=== PATIENT | female | born 1950 | race Caucasian/White ===

== ENCOUNTER → 2020-08-10 12:26 | Outpatient (BNVA) | payer MEDICARE, SELFPAY | PROVIDERS: Visit Provider Orthopaedic Surgery | DX: M19.012 Primary osteoarthritis, left shoulder (principal) | CPT/HCPCS: 20610; 99212; J1100 ==

== ENCOUNTER 2020-12-09 14:46 | Outpatient (REF) | payer MEDICARE, SELFPAY ==
--- NOTE | ~2020-12-09 | US_ITS ---
EXAMINATION: US VENOUS ULTRASOUND WITH DOPPLER LOWER EXTREMITY, BILATERAL CLINICAL INFORMATION: Bilateral leg edema and swelling COMPARISON: None TECHNIQUE: Ultrasound of the deep veins is performed from the hip to the calf with compression sonography and color and pulse Doppler assessment. Spectral analysis with color-flow imaging is performed. FINDINGS: RIGHT: There is normal venous compression and respiratory variation and augmented flow. The visualized common femoral vein, superficial femoral vein, profunda femoral vein, popliteal vein, and the trifurcation region shows no evidence of deep venous thrombosis. There is no significant popliteal fossa cyst. LEFT: There is normal venous compression and respiratory variation and augmented flow. The visualized common femoral vein, superficial femoral vein, profunda femoral vein, popliteal vein, and the trifurcation region shows no evidence of deep venous thrombosis. There is no significant popliteal fossa cyst. There are small lymph nodes in the left groin with largest lymph node measuring 2.2 x 0.5 x 2.5 cm. If the patient's symptoms persist, followup ultrasound in 5 days 7 days might be of value to exclude proximal propagation from a non-visualized calf vein. US/US venous duplex LE BI IMPRESSION: No DVT demonstrated in the bilateral lower extremity. There are small left groin lymph nodes. The largest one measuring 2.2 x 0.5 x 2.5 cm.
== END 2020-12-09 14:47 | disposition home or self-care (01) ==
LOC: HO.US 14:46
PROVIDERS: PCP Internal Medicine; Visit Provider Internal Medicine
DX: I82.409 Acute embolism and thrombosis of unspecified deep veins of unspecified lower extremity (principal); M79.604 Pain in right leg; M79.605 Pain in left leg
CPT/HCPCS: 93970

== ENCOUNTER 2020-12-13 05:21 | Inpatient (IN) | payer MEDICARE, MEDICAID, SELFPAY ==
[2020-12-13] VITALS (29 sets, daily range): BP systolic 99–138; BP diastolic 50–83; PULSE 61–79; RESP 10–27; TEMP 35.1–35.9; O2SAT 93–99; BMI 23.1
--- NOTE | ~2020-12-13 | US_ITS ---
EXAMINATION: US VENOUS ULTRASOUND WITH DOPPLER LOWER EXTREMITY, BILATERAL CLINICAL INFORMATION: Lower extremity pain COMPARISON: None TECHNIQUE: Ultrasound of the deep veins is performed from the hip to the calf with compression sonography and color and pulse Doppler assessment. Spectral analysis with color-flow imaging is performed. FINDINGS: RIGHT: There is normal venous compression and respiratory variation and augmented flow. The visualized common femoral vein, superficial femoral vein, profunda femoral vein, popliteal vein, and the trifurcation region shows no evidence of deep venous thrombosis. 3.5 x 0.9 x 1.6 cm right Zuleta's cyst cyst. LEFT: There is normal venous compression and respiratory variation and augmented flow. The visualized common femoral vein, superficial femoral vein, profunda femoral vein, popliteal vein, and the trifurcation region shows no evidence of deep venous thrombosis. There is no significant popliteal fossa cyst. If the patient's symptoms persist, followup ultrasound in 5 days 7 days might be of value to exclude proximal propagation from a non-visualized calf vein. US/US venous duplex LE BI IMPRESSION: No DVT demonstrated in the bilateral lower extremities. Right Zuleta's cyst.
--- NOTE | ~2020-12-13 | NM_ITS ---
EXAMINATION: NM LUNG IMAGE PERFUSION CLINICAL INDICATION: Elevated d-dimer and shortness of breath. Bronchitis. History of smoking. COMPARISON: Chest x-ray dated 12/13/2020 PROCEDURE: Following the intravenous administration of 4.0 mCi technetium 99m MAA, images of the chest were again obtained in multiple projections using a gamma scintophoto camera. FINDINGS: There are couple tiny peripheral evident on the posterior and RPO projections. Nonsegmental perfusion defects within the anterior segment of the right upper lobe: No segmental perfusion defects or other perfusion abnormalities are noted. NM/NM pul perfusion IMPRESSION: Very low probability for pulmonary embolism.
--- NOTE | ~2020-12-13 | XR_ITS ---
EXAMINATION: XR CHEST CLINICAL INFORMATION: Right hemodialysis catheter placement COMPARISON: 12/13/2020 TECHNIQUE: Frontal view of the chest was obtained. FINDINGS: Right internal jugular central venous catheter terminates over the mid SVC. Right shoulder arthroplasty. Advanced degenerative changes at the left glenohumeral joint. Cardiac leads overlie the chest. Defibrillator pad overlies the left hemithorax. Lung volumes are low. Bronchial wall thickening present. Mild interstitial prominence. No significant pleural effusion. No pneumothorax. The cardiomediastinal silhouette remains prominent, with a calcified aorta. XR/XR chest 1V IMPRESSION: Right internal jugular central venous catheter terminates over the mid SVC. No pneumothorax. Persistent bronchial wall thickening with interstitial prominence.
--- NOTE | ~2020-12-13 | XR_ITS ---
EXAMINATION: XR CHEST CLINICAL INFORMATION: Cough and shortness of breath. Rule out pneumonia. COMPARISON: 09/30/2019 TECHNIQUE: Frontal view of the chest was obtained. FINDINGS: Right shoulder arthroplasty noted. Cardiac leads overlie the chest. Lung volumes are low. Diffuse bilateral bronchial wall thickening. No pleural effusion or pneumothorax. No dense consolidation. The cardiomediastinal silhouette is unchanged, with a calcified aorta. XR/XR chest 1V IMPRESSION: No consolidation. Bronchial wall thickening can be seen with a small airways process such as asthma or atypical/viral infection.
--- NOTE | 2020-12-13 05:50 | ECG_ITS ---
Test Reason : SOB Blood Pressure : / mmHG Vent. Rate : 066 BPM Atrial Rate : 066 BPM P-R Int : 230 ms QRS Dur : 086 ms QT Int : 438 ms P-R-T Axes : 045 -21 150 degrees QTc Int : 459 ms Sinus rhythm with 1st degree A-V block Low voltage QRS Cannot rule out Anterior infarct (cited on or before 13-APR-2019) Abnormal ECG When compared with ECG of 13-APR-2019 09:20, IA interval has increased Questionable change in initial forces of Anteroseptal leads T wave inversion now evident in Lateral leads Referred By: Shawn Urena Electronically Signed By:SAMMY GARZA MD
--- NOTE | 2020-12-13 05:52 | ED_ITS ---
HPI - General Adult General Chief complaint: Upper Respiratory Symptoms Stated complaint: Sob Time Seen by Provider: 12/13/20 05:36 Source: patient Mode of arrival: ambulatory Limitations: no limitations History of Present Illness HPI narrative: 70-year-old female who presents emergency department for evaluation of shortness of breath, cough, chest pain. The patient states that she has been sick since . She states that she has a cough which has been productive of thick mucus that looks like an ?rubber cement ?. She states that she has had a constant, tightness in the center of her chest which is worse with breathing and coughing, the tightness is moderate in intensity. She has also had bilateral lower extremity pain she states the pain starts in her healing goes to the back of her knee. The pain is a constant, cramping pain which is moderate intensity. The patient was seen by her PCP on (4 days prior to evaluation). The patient was treated for bronchitis with prednisone 60 mg tapering dose and cefuroxime 250 mg twice a day. She states that despite taking these medications she is not feeling any better. The patient states that she does smoke 1 cigarette per day. She has not had a COVID-19 infection. She has not been vaccinated for COVID-19. Related Data Home Medications Medication Instructions Recorded Confirmed amlodipine 10 mg tablet 10 mg PO DAILY 08/10/20 furosemide 40 mg tablet 40 mg PO DAILY 08/10/20 calcitriol 0.5 mcg capsule 0.5 mcg PO DAILY 12/09/20 12/09/20 carvedilol 25 mg tablet 25 mg PO BID 12/09/20 12/09/20 Previous Rx's Medication Instructions Recorded cefuroxime axetil 250 mg tablet 250 mg PO BID 7 Days #14 tab 12/09/20 prednisone 20 mg tablet 20 mg PO DAILY #18 tab 12/09/20 Allergies Allergy/AdvReac Type Severity Reaction Status Date / Time atenolol [ATENOLOL] Allergy Unknown DIFF Verified 12/09/20 11:34 BREATHING, heart races. amphetamine [Adderall] AdvReac Unknown shortness Verified 12/09/20 11:34 of breath dextroamphetamine [Adderall] AdvReac Unknown shortness Verified 12/09/20 11:34 of breath Review of Systems Review of Systems: Yes all other systems are reviewed and are negative PMFSH Past Medical History PMFSH Narrative: The patient states she smokes 1 cigarette per day x5 years. Prior to that she had quit smoking for 30 years. She denies alcohol use, she denies drug use. She states that she lives at home with her and her son Angus who is here in the emergency department with the patient. Medical History Anemia Asthmatic bronchitis CKD (chronic kidney disease), stage IV Depression DVT (deep venous thrombosis) GERD (gastroesophageal reflux disease) History of ectopic Hypertension Surgical History H/O colonoscopy History of carpal tunnel release of both wrists History of left knee replacement History of rectal surgery Status post total replacement of right shoulder Family History Family History Father No problems noted. Mother No problems noted. Social History Social History Alcohol intake: unknown Smoking Status: Current every day smoker Use of substances other than those prescribed or required for medical reasons: No Advance Directives: No Advance Directives Information Provided: No Current occupational status: employed and other Current occupation: young,right handed Physical Exam Vital Signs: Vital Signs: Last Vital Signs Pulse 70 12/13/20 05:34 Resp 27 H 12/13/20 05:34 BP 127/60 12/13/20 05:34 Pulse Ox 97 12/13/20 05:34 Body Mass Index 23.1 Const: General: cooperative and in distress ([id number] respiratory distress, tachypnea) Orientation/consciousness: oriented to person and oriented to place Limitations: no limitations HENMT: Head: Yes normal to inspection, Yes normocephalic and Yes atraumatic Ears: external ears normal General nose exam: Normal external nose present Face and sinus: Yes normal facial exam Mouth: Normal oral and palatal mucosa present Throat: Yes posterior oropharynx normal Eyes: Periorbital: periorbital findings normal Eyelids: Yes eyelids normal Conjunctivae: conjunctivae normal Sclerae: sclerae normal Corneas: corneas normal Pupils: Equal, round and reactive pupils present Direct Ophthalmoscopy: normal light reflex Neck: Neck: Yes full ROM, Yes no lymphadenopathy, Yes no meningeal signs, Yes trachea midline and Yes supple Chest: Chest palpation & inspection: normal inspection of the chest and tenderness sternum ([id number]) Resp: Effort & Inspection: able to speak in complete sentences and tachypneic Auscultation: rales (Diffuse) and wheezes (Diffuse) Cardio: Rate: regular rate Rhythm: regular rhythm Heart sounds: S1 normal heart sound present, S2 normal heart sound present and no murmurs GI: Inspection: Yes normal to inspection Palpation (GI): Soft to palpation, nontender, no guarding, not rigid and No hepatosplenomegaly present : General: Yes no CVA tenderness Back/Spine/Pelvis: Back: no CVA tenderness Cervical Spine: normal cervical lordosis Thoracic/Lumbar Spine: thoracic and lumbar spine normal to inspection Skin: Lesions: no lesions Rashes: no rashes Wounds: no wounds Neuro: General: oriented to person, oriented to place and no meningeal signs Cranial nerves: Yes CN's II-XII intact bilaterally and Yes Equal, round and reactive pupils present Cognition (Neuro): normal cognition Motor exam (neuro): 5/5 motor strength present throughout Extrem: Other: Tenderness with palpation of the calves bilaterally, positive Homans sign bilaterally, no peripheral edema, moves all extremities symmetrically Psych: Appearance: well kempt Mental Status: mental status grossly normal Speech and movement: Normal speech and movement present Affect: normal affect Attitude: cooperative Thought process: Normal thought process present Thought content: Normal thought content present Course Course Course Narrative: 70-year-old female who presents emergency department for evaluation of shortness of breath, cough, chest pain x4 days. Vital signs reveal that she was tachypneic with a respiratory rate of 27 otherwise were normal. Physical examination revealed diffuse wheezing and diffuse rhonchi. She also tenderness with palpation of her calves bilaterally. Differential includes but is not limited to pneumonia, congestive heart failure, bronchitis, DVT, myocardial infarction. I ordered the following workup: CBC, CMP, BNP, D- dimer, lactic acid, PTT, PT/INR, troponin, urinalysis, ABG, chest x-ray, EKG, ultrasound venous duplex lower extremities bilaterally. The patient was ordered to get an albuterol nebulizer x1, Solu-Medrol 125 mg IV. 0714: The patient's chest x-ray revealed bronchial thickening but no evidence of pneumonia. The Doppler ultrasound of the lower extremities revealed no DVT which is reassuring. Patient's laboratory evaluation is pending. I did re- evaluate the patient and her lung exam is significantly improved with no wheezing however patient states she still feels dyspneic. The patient's care will be turned over to my colleague, Dr. Brewer. Discharge Plan Discharge Prescriptions: No Action carvedilol 25 mg tablet 25 mg PO BID RF: 0 calcitriol 0.5 mcg capsule 0.5 mcg PO DAILY RF: 0 cefuroxime axetil 250 mg tablet 250 mg PO BID 7 Days Qty: 14 RF: 0 prednisone 20 mg tablet 20 mg PO DAILY Qty: 18 RF: 0
--- NOTE | 2020-12-13 06:13 | PC.NURSE ---
pt sob, respiratory called , breathing treatment. EKG completed. pt taken down to [facility] of her legs to rule out DVT. pt is able to speak in full sentence and answer question appropriately
--- NOTE | 2020-12-13 06:54 | PC.NURSE ---
pt back from [facility].
[2020-12-13] MEDS: methylPREDNISolone Sod Succ 125 MG/2 ML VIAL IVPUSH (07:21)
[2020-12-13] MEDS: ondansetron HCL 4 MG/2 ML VIAL IVPUSH (07:21)
--- NOTE | 2020-12-13 07:25 | PC.NURSE ---
pt is very anxious, iv started, labs obtained. awaiting results.
[2020-12-13 07:47] LABS: Hematocrit 24.7 % (37-47); Mean Corpuscular HGB Conc 32.4 g/dl (31.0-35.0); Mean Corpuscular Volume 92.5 fL (80-98); Mean Platelet Volume 9.8 fL (9.4-12.3); NRBC Pct Auto 0.5 /100WBC (0.0-0.2); Platelet Count 267 X10*3/uL (160-400); Red Blood Count 2.67 X10*6/uL (4.20-5.50); Red Cell Distribution Width 14.6 % (11.0-16.0); White Blood Count 13.5 X10*3/uL (4.8-10.8)
[2020-12-13 07:56] LABS: INTERNATIONAL NORM RATIO 0.9 (0.9-1.1); Prothrombin Time 11.1 SEC (10.8-13.0)
[2020-12-13 07:59] LABS: Partial Thromboplastin Time 33.9 SEC (24.1-38.0)
[2020-12-13 08:03] LABS: Lactic Acid 0.5 mmol/L (0.5-2.0)
[2020-12-13 08:06] LABS: D Dimer 2426 NG/ML
[2020-12-13 08:08] LABS: COVID-19 Test Negative (Negative)
[2020-12-13 08:12] LABS: Band Neutrophils Percent 5 % (3-5); Lymphocytes Absolute Manual 1.2 X10*3/uL (0.6-4.8); Lymphocytes Percent Manual 9 % (20-40); Metamyelocytes Absolute 0.3 X10*3/uL; Metamyelocytes Percent 2 %; Monocytes Absolute Manual 0.7 X10*3/uL (0.0-1.2); Monocytes Percent Manual 5 % (2-11); Neutrophils Absolute Manual 11.3 X10*3/uL (2.2-7.9); Neutrophils Percent Manual 79 % (45-73); Nucleated Red Blood Cells 1 /100WBC (0-0)
[2020-12-13 08:14] LABS: Acanthocytes 1+ (0-2) /OIF; Burr Cells 3+ (>5) /OIF; Platelet Estimate NORMAL (NORMAL); RBC Morphology NOTED; Tear Drop Cells 1+ (0-2) /OIF
[2020-12-13 08:15] LABS: Ovalocytes 1+ (5-14) /OIF
[2020-12-13 08:23] LABS: B Type Natriuretic Peptide 1838 pg/mL (<100); Troponin-I High Sensitivity 1941.9 ng/L (<3.5-17.0)
[2020-12-13 08:26] LABS: Alanine Aminotransferase 16 U/L (0-31); Albumin Level 3.7 g/dL (3.5-5.0); Alkaline Phosphatase 68 U/L (39-117); Aspartate Amino Transferase 15 U/L (5-31); Bilirubin Total 0.5 mg/dL (0.0-1.0); Blood Urea Nitrogen 143 mg/dL (9-16); Creatinine Clr Calc Pharmacy 4.5; Estimated Glomerular Filt Rate 4; Glucose Random 123 mg/dL (60-115)
[2020-12-13 08:28] LABS: Anion Gap 25 (12-20); Carbon Dioxide 10 mmol/L (22-29); Chloride 102 mmol/L (96-108); Potassium 6.4 mmol/L (3.3-5.1); Sodium 131 mmol/L (135-145)
[2020-12-13 08:40] LABS: Calcium 7.1 mg/dL (8.4-10.2)
--- NOTE | 2020-12-13 09:07 | PC.NURSE ---
20ml clear yellow urine output from [facility]
[2020-12-13 09:19] LABS: Appearance Urine HAZY; Color Urine YELLOW; Glucose Urine UA NEG (NEG); Leukocyte Esterase Urine NEG (NEG); Nitrite Urine NEG (NEG); PH 5.5 (5.0-8.0); Specific Gravity - Urine 1.025 (1.005-1.025); Urine Blood 1+ (NEG); Urine Ketones NEG (NEG); Urine Protein 2+ MG/DL (NEG-TRACE)
[2020-12-13] MEDS: Calcium Gluconate/NaCl,Iso-Osm 2 GM/100 ML PLAST..BAG IV (09:20)
[2020-12-13] MEDS: Insulin Regular, Human 100 UNIT/ML 3 ML VIAL IVPUSH ×2 (09:21→21:07)
[2020-12-13] MEDS: Albuterol Sulfate (0.083%) 2.5 MG/3 ML VIAL.NEB INHALE (09:31)
[2020-12-13] MEDS: LORazepam 1 MG TABLET PO (09:32)
[2020-12-13 09:42] LABS: Amorphous Sediment Urine 1+ /LPF; Bacteria Urine TRACE /LPF; Squamous Epithelial Cell Urine 1+ /LPF; WBC Urine 0-2 /HPF (0-4)
--- NOTE | 2020-12-13 11:17 | P.CONNP_ITS ---
History of Present Illness Reason for Consult Consult date: 12/13/20 Chief Complaint Chief complaint: Sob PMFSH Past Medical History Medical History Anemia Asthmatic bronchitis CKD (chronic kidney disease), stage IV Depression DVT (deep venous thrombosis) GERD (gastroesophageal reflux disease) History of ectopic Hypertension Family History Family History Father No problems noted. Mother No problems noted. Surgical History Surgical History H/O colonoscopy History of carpal tunnel release of both wrists History of left knee replacement History of rectal surgery Status post total replacement of right shoulder Social History Social History Alcohol intake: unknown Smoking Status: Current every day smoker Use of substances other than those prescribed or required for medical reasons: No Advance Directives: No Advance Directives Information Provided: No Current occupational status: employed and other Current occupation: young,right handed Meds Allergies Allergy/AdvReac Type Severity Reaction Status Date / Time atenolol [ATENOLOL] Allergy Unknown DIFF Verified 12/09/20 11:34 BREATHING, heart races. amphetamine [Adderall] AdvReac Unknown shortness Verified 12/09/20 11:34 of breath dextroamphetamine [Adderall] AdvReac Unknown shortness Verified 12/09/20 11:34 of breath Home Medications Medication Instructions Recorded Confirmed Last Taken Type amlodipine 10 mg tablet 10 mg PO DAILY 08/10/20 12/13/20 Unknown History furosemide 40 mg tablet 40 mg PO DAILY 08/10/20 12/13/20 Unknown History calcitriol 0.5 mcg capsule 0.5 mcg PO DAILY 12/09/20 12/13/20 Unknown History carvedilol 25 mg tablet 25 mg PO BID 12/09/20 12/13/20 Unknown History Physical Exam Vital Signs: Last Vital Signs Pulse 67 12/13/20 10:00 Resp 16 12/13/20 10:00 BP 122/66 12/13/20 10:00 Pulse Ox 99 12/13/20 10:00 Body Mass Index 23.1 oral dry mucosa JVP 4 cms H20 s1s2 lungs decreaed BSs on basese abd soft nt ext trace edema neuro non focal Results Lab Results Result Diagrams: 12/13/20 07:17 12/13/20 07:17 Lab results: Chemistry 12/13/20 07:17 Sodium 131 L Potassium 6.4 H* Carbon Dioxide 10 L* BUN 143 H* Creatinine 9.63 H* Calcium 7.1 L Hematology 12/13/20 07:17 WBC 13.5 H Hgb 8.0 L Plt Count 267 Urinalysis 12/13/20 09:09 Urine Color YELLOW Urine Appearance HAZY Urine pH 5.5 Ur Specific [place] 1.025 Urine Protein 2+ H Urine Glucose (UA) NEG Urine Ketones NEG Urine Blood 1+ H Urine Nitrite NEG Ur Leukocyte Esterase NEG Urine RBC 1-4 Urine WBC 0-2 Ur Squamous Epith Cells 1+ Assessment and Plan (1) Acute renal disease: Problem details: sec to ATN likely ischemic vs septic unclear yet if Acute coronary syndrome playing a role Status: Acute (2) CKD stage 5 secondary to hypertension: Problem details: known for years, baseline 3-4 mg/dL Proteinuria ischemic nephropathy FSGS Status: Acute (3) Acidosis: Problem details: sec to [facility] inability to excrete acid Status: Acute (4) Hyperkalemia: Problem details: sec to [facility] inability to secrete K Status: Acute Presently unclear cause of CP work up being done in the ER V[facility]NA metabolic acidoses hyperK, progressive CKD stage 5 in the past year; Pt will need renal replacement therapy, she agrees to undergo permcath and dialysis if needed. Please have IR place Permcath, we can start HD tomorrow continue with acute Hyperk mgment, Ca GLuc, IV dextrose insulin hyperkalemia oral mgment with lokelma 10 g PO q8x 3 doses or Kayaxalate 30 mg PO X2 doses q4h Hypervolemic Furosemide 80-100 mg IVP today would be appropriate BP control keep Loop diuretics and BB dw Cardiology may need Heparin drip ER on board Thanks for the consult
[2020-12-13 11:28] LABS: Troponin-I High Sensitivity 1709.6 ng/L (<3.5-17.0)
--- NOTE | 2020-12-13 12:04 | P.CONCA_ITS ---
History of Present Illness History of Present Illness Date of Service: 12/13/20 Requesting physician: Chitra Torres Consult reason: other ( NSTEMI) Chief complaint: Sob Narrative: 70-year-old woman we were asked to [facility]am in [facility]ology [facility] for elevated troponins and chest discomfort. She is a 70-year-old woman with prior history of chronic kidney disease being followed by Dr. Rose well overall generalized weakness fatigue and reduced urine output. Noted to be in acute kidney injury with creatinine up to 9.63 with acidosis and hyperkalemia of, plan for acute hemodialysis. However patient says she has been having chest discomfort over the last few days, usually gets retrosternal chest pressure/tightness when she is anxious or stressed out. Her initial troponin was 1941. Subsequent troponin is 1700 9, down trending. She is not currently having any chest pressure. EKG shows mild ST sagging in the high lateral and anterolateral leads. No Q-waves or ST elevation. She has never had any prior cardiac issues. Denies any prior coronary artery disease. She has longstanding hypertension and prior history of DVT. She also noted to have significantly elevated D-dimer underwent pulmonary perfusion study which shows preliminary as having normal perfusion or low risk perfusion study. Patient denies any shortness of breath, nausea, vomiting, diaphoresis. Blood pressure is stable. Review of Systems Constitutional: Constitutional: Denies body ache(s), Denies chills, Denies fever(s), Reports lethargy, Reports malaise and Reports weakness Cardiovascular: Cardiovascular: Reports chest pain (Under stress), Denies lightheadedness, Denies Loss of Consciousness, Denies radiating jaw, neck or arm pain, Denies palpitations and Denies dyspnea Respiratory: Respiratory: Reports no additional respiratory complaints and Denies dyspnea Gastrointestinal: Gastrointestinal: Reports no additional gastrointestinal complaints Genitourinary: Genitourinary: Reports no additional female genitourinary complaints Musculoskeletal: Musculoskeletal: Reports no additional musculoskeletal complaints Neurologic: Reports system reviewed and no additional complaints, except as documented and Reports weakness Psychiatric: Psychiatric: Reports no additional psychiatric complaints Endocrine: Endocrine: Reports no additional endocrine complaints and Denies palpitations PMFSH Past Medical History Medical History Anemia Asthmatic bronchitis CKD (chronic kidney disease), stage IV Depression DVT (deep venous thrombosis) GERD (gastroesophageal reflux disease) History of ectopic Hypertension Family History Family History Father No problems noted. Mother No problems noted. Surgical History Surgical History H/O colonoscopy History of carpal tunnel release of both wrists History of left knee replacement History of rectal surgery Status post total replacement of right shoulder Social History Social History Alcohol intake: unknown Smoking Status: Current every day smoker Use of substances other than those prescribed or required for medical reasons: No Advance Directives: No Advance Directives Information Provided: No Current occupational status: employed and other Current occupation: young,right handed Meds Allergies Allergy/AdvReac Type Severity Reaction Status Date / Time atenolol [ATENOLOL] Allergy Unknown DIFF Verified 12/09/20 11:34 BREATHING, heart races. amphetamine [Adderall] AdvReac Unknown shortness Verified 12/09/20 11:34 of breath dextroamphetamine [Adderall] AdvReac Unknown shortness Verified 12/09/20 11:34 of breath Home Medications Medication Instructions Recorded Confirmed Last Taken Type amlodipine 10 mg tablet 10 mg PO DAILY 08/10/20 12/13/20 Unknown History furosemide 40 mg tablet 40 mg PO DAILY 08/10/20 12/13/20 Unknown History calcitriol 0.5 mcg capsule 0.5 mcg PO DAILY 12/09/20 12/13/20 Unknown History carvedilol 25 mg tablet 25 mg PO BID 12/09/20 12/13/20 Unknown History Physical Exam Vital Signs: Vital Signs: Last Vital Signs Pulse 67 12/13/20 10:00 Resp 16 12/13/20 10:00 BP 122/66 12/13/20 10:00 Pulse Ox 99 12/13/20 10:00 Body Mass Index 23.1 Const: General: cooperative, comfortable, no acute distress, alert and awake Nutritional Appearance: thin Orientation/consciousness: patient oriented x3 HENMT: Head: Yes normocephalic and Yes atraumatic Neck: Neck: Yes trachea midline, Yes supple and Yes no JVD Chest: Chest palpation & inspection: normal inspection of the chest Resp: Effort & Inspection: normal respiratory effort Auscultation: clear to auscultation bilaterally Cardio: Jugular venous distension: no JVD Palpation: normal PMI Rate: regular rate Rhythm: regular rhythm Heart sounds: S1 normal heart sound present and S2 normal heart sound present GI: Auscultation: normal bowel sounds Skin: General skin exam: no rashes or lesions noted Neuro: General: patient oriented x3 and no focal motor deficits Extrem: General: Yes no clubbing, cyanosis or edema Results Labs and Meds Result diagrams: 12/13/20 07:17 12/13/20 07:17 Lab results: Laboratory Results - last 24 hr 12/13/20 12/13/20 12/13/20 07:17 07:17 07:17 WBC 13.5 H RBC 2.67 L Hgb 8.0 L Hct 24.7 L MCV 92.5 MCH 30.0 MCHC 32.4 RDW 14.6 Plt Count 267 MPV 9.8 Immature Gran % (Auto) Cancelled Neut % (Auto) Cancelled Lymph % (Auto) Cancelled Sharkey % (Auto) Cancelled Eos % (Auto) Cancelled Baso % (Auto) Cancelled Lymph # (Auto) Cancelled Sharkey # (Auto) Cancelled Eos # (Auto) Cancelled Baso # (Auto) Cancelled Abs Immat Gran (auto) Cancelled Absolute Neuts (auto) Cancelled Absolute Nucleated RBC 0.070 H Nucleated RBC % (auto) 0.5 H Neutrophils % (Manual) 79 H Band Neutrophils % 5 Lymphocytes % (Manual) 9 L Monocytes % (Manual) 5 Metamyelocytes % 2 Abs Neuts (Manual) 11.3 H Lymphocytes # (Manual) 1.2 Monocytes # (Manual) 0.7 Metamyelocytes # 0.3 Nucleated RBCs 1 H Platelet Estimate NORMAL Plt Morphology Comment Not Reportable RBC Morphology NOTED Tear Drop Cells 1+ (0-2) Ovalocytes 1+ (5-14) [place] Cells 3+ (>5) Acanthocytes (Spur) 1+ (0-2) PT INR APTT D-Dimer Sodium 131 L Potassium 6.4 H* Chloride 102 Carbon Dioxide 10 L* Anion Gap 25 H BUN 143 H* Creatinine 9.63 H* Estim Creat Clear Calc 4.5 Estimated GFR 4 Random Glucose 123 H Lactic Acid 0.5 Calcium 7.1 L Total Bilirubin 0.5 AST 15 ALT 16 Alkaline Phosphatase 68 Troponin I High Sens B-Natriuretic Peptide Total Protein 7.0 Albumin 3.7 Urine Color Urine Appearance Urine pH Ur Specific Fowler Urine Protein Urine Glucose (UA) Urine Ketones Urine Blood Urine Nitrite Ur Leukocyte Esterase Urine RBC Urine WBC Ur Squamous Epith Cells Amorphous Sediment Urine Bacteria COVID-19 ([place]) COVID-19 Clin Com 12/13/20 12/13/20 12/13/20 07:17 07:17 07:21 WBC RBC Hgb Hct MCV MCH MCHC RDW Plt Count MPV Immature Gran % (Auto) Neut % (Auto) Lymph % (Auto) Sharkey % (Auto) Eos % (Auto) Baso % (Auto) Lymph # (Auto) Sharkey # (Auto) Eos # (Auto) Baso # (Auto) Abs Immat Gran (auto) Absolute Neuts (auto) Absolute Nucleated RBC Nucleated RBC % (auto) Neutrophils % (Manual) Band Neutrophils % Lymphocytes % (Manual) Monocytes % (Manual) Metamyelocytes % Abs Neuts (Manual) Lymphocytes # (Manual) Monocytes # (Manual) Metamyelocytes # Nucleated RBCs Platelet Estimate Plt Morphology Comment RBC Morphology Tear Drop Cells Ovalocytes Marleni Cells Acanthocytes (Spur) PT 11.1 INR 0.9 APTT 33.9 D-Dimer 2426 Sodium Potassium Chloride Carbon Dioxide Anion Gap BUN Creatinine Estim Creat Clear Calc Estimated GFR Random Glucose Lactic Acid Calcium Total Bilirubin AST ALT Alkaline Phosphatase Troponin I High Sens 1941.9 H B-Natriuretic Peptide 1838 H Total Protein Albumin Urine Color Urine Appearance Urine pH Ur Specific Fowler Urine Protein Urine Glucose (UA) Urine Ketones Urine Blood Urine Nitrite Ur Leukocyte Esterase Urine RBC Urine WBC Ur Squamous Epith Cells Amorphous Sediment Urine Bacteria COVID-19 ([place]) Negative COVID-19 Clin Com See Note 12/13/20 12/13/20 09:09 10:55 WBC RBC Hgb Hct MCV MCH MCHC RDW Plt Count MPV Immature Gran % (Auto) Neut % (Auto) Lymph % (Auto) Sharkey % (Auto) Eos % (Auto) Baso % (Auto) Lymph # (Auto) Sharkey # (Auto) Eos # (Auto) Baso # (Auto) Abs Immat Gran (auto) Absolute Neuts (auto) Absolute Nucleated RBC Nucleated RBC % (auto) Neutrophils % (Manual) Band Neutrophils % Lymphocytes % (Manual) Monocytes % (Manual) Metamyelocytes % Abs Neuts (Manual) Lymphocytes # (Manual) Monocytes # (Manual) Metamyelocytes # Nucleated RBCs Platelet Estimate Plt Morphology Comment RBC Morphology Tear Drop Cells Ovalocytes Marleni Cells Acanthocytes (Spur) PT INR APTT D-Dimer Sodium Potassium Chloride Carbon Dioxide Anion Gap BUN Creatinine Estim Creat Clear Calc Estimated GFR Random Glucose Lactic Acid Calcium Total Bilirubin AST ALT Alkaline Phosphatase Troponin I High Sens 1709.6 H B-Natriuretic Peptide Total Protein Albumin Urine Color YELLOW Urine Appearance HAZY Urine pH 5.5 Ur Specific Fowler 1.025 Urine Protein 2+ H Urine Glucose (UA) NEG Urine Ketones NEG Urine Blood 1+ H Urine Nitrite NEG Ur Leukocyte Esterase NEG Urine RBC 1-4 Urine WBC 0-2 Ur Squamous Epith Cells 1+ Amorphous Sediment 1+ Urine Bacteria TRACE COVID-19 ([place]) COVID-19 Clin Com EKG shows normal sinus rhythm with poor R-wave progression with nonspecific ST changes Imaging Radiologist's impression: Impressions Chest X-Ray 12/13/20 05:50 IMPRESSION: No consolidation. Bronchial wall thickening can be seen with a small airways process such as asthma or atypical/viral infection. Venous Duplex 12/13/20 05:50 IMPRESSION: No DVT demonstrated in the bilateral lower extremities. Right Zuleta's cyst. Assessment and Plan (1) NSTEMI (non-ST elevated myocardial infarction): Status: Acute Acute coronary syndrome with non STEMI in patient with chest pain syndrome over the last couple of days with elevated troponin which had down trending. No acute ST-elevation or depression noted on EKG. Not having ongoing chest discomfort. Hemodynamically stable. Unfortunately she also present with acute kidney injury with hyperkalemia and acidosis and requires acute hemodialysis. Currently I would pursue hemodialysis is with close attention to her symptoms. If she develops any chest discomfort hemodialysis will need to be discontinued. Close attention to hemodynamics and avoidance of too much fluid removal to avoid hypotension need to be pursued. Will obtain echocardiogram tomorrow to assess LV systolic and diastolic function with regional wall motion abnormality. Will require ischemic workup based on her clinical medical response to dialysis. May consider cardiac catheterization if her kidney function acidosis and electrolyte disturbance improved versus noninvasive testing with myocardial perfusion imaging. Blood pressure is optimized at this point time. Start aspirin loading with 324 mg and then 81 mg daily. High-intensity statin therapy. Also start on IV heparin for anticoagulation for 48 hours. Low-dose beta-alessia 12.5 mg twice a day metoprolol to be started to reduce myocardial oxygen demand. Will follow with you.
[2020-12-13] MEDS: Metoprolol Tartrate 12.5 MG HALFTAB PO (13:22)
[2020-12-13] MEDS: Aspirin Enteric Coated 81 MG TABLET.DR PO (13:22)
[2020-12-13] MEDS: Atorvastatin Calcium 80 MG TABLET PO (13:22)
[2020-12-13] MEDS: Heparin Sodium,Porcine 5,000 UNIT/ML VIAL 2400 UNIT IVPUSH (13:23)
[2020-12-13] MEDS: Heparin Sodium,Porcine/1/2NS 25,000 UNIT/250 ML IV.SOLN 7.35 UNIT IVCONT (13:25)
--- NOTE | 2020-12-13 13:58 | PC.NURSE ---
stemp at bedside. pt placed on hugger for temp of 95.1 rectal. poc 96
[2020-12-13 14:00] LABS: Glucose, Whole Blood 96 mg/dL (60-115)
[2020-12-13 14:10] LABS: Phosphorus 13.6 mg/dL (2.7-4.5)
--- NOTE | 2020-12-13 14:27 | PC.NURSE ---
christine updated, okmorgan per pt
[2020-12-13] MEDS: Furosemide 100 MG/10 ML VIAL 80 MG IVPUSH (14:40)
[2020-12-13] MEDS: Chlorothiazide Sodium 500 MG VIAL IVPUSH (15:53)
[2020-12-13] MEDS: Furosemide 500 MG in Container,Empty 0 ML IVCONT (15:53)
[2020-12-13 16:27] LABS: Alanine Aminotransferase 14 U/L (0-31); Albumin Level 3.1 g/dL (3.5-5.0); Alkaline Phosphatase 53 U/L (39-117); Anion Gap 24 (12-20); Aspartate Amino Transferase 13 U/L (5-31); Bilirubin Total 0.4 mg/dL (0.0-1.0); Calcium 6.5 mg/dL (8.4-10.2); Carbon Dioxide 7 mmol/L (22-29); Chloride 101 mmol/L (96-108); Creatinine Clr Calc Pharmacy 4.9; Estimated Glomerular Filt Rate 4; Glucose Fasting 97 mg/dL (60-99); Sodium 126 mmol/L (135-145); Total Protein 6.4 g/dL (6.5-8.0)
[2020-12-13 16:53] LABS: Blood Urea Nitrogen 136 mg/dL (9-16); Potassium 6.4 mmol/L (3.3-5.1)
--- NOTE | 2020-12-13 16:59 | PC.NURSE ---
this rn present during reinsertion of fuentes cath by dr. rodriguez. pt had propofol ivp by dr rodriguez, even after checking placement urine continues to leak around fuentes. bladder scanned for 14cc's.
--- NOTE | 2020-12-13 16:59 | PC.NURSE ---
issues with cath placement. stemp at bedside. conscious sedation with rt and monica rn. fuentes placed and confirmed.
--- NOTE | 2020-12-13 17:07 | PM.CCHP ---
History of Present Illness Date of Service: 12/13/20 Mrs. Ramos is being admitted to ICU for monitoring and management of acute renal failure with hyperkalemia. The patient is a 70 yo female w PMHx of asthmatic bronchitis, HTN, CKD stage IV, anemia, DVT, GERD, history of ectopic , depression, s/ right total shoulder replacement. She presented ambulatory to the ED early this morning for evaluation of shortness of breath, cough, chest pain. The patient stated that she had been sick for 4 days. Her cough has been productive of thick mucus that looks like rubber cement. She c/o a constant, tightness in the center of her chest which was worse with breathing and coughing. She has also had bilateral crampy lower extremity pain. 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 No relief from that. The patient smokes 1 cigarette per day. She has not had a COVID-19 infection, nor been vaccinated. The patient lives with her and is fully independent. 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 In the ED she was fully oriented and in NAD. Reported vital signs were heart rate of 70, blood pressure 127/60, respiratory rate of 27, with a sat of 97% on room air. No temperature was taken. The abdomen was benign. Physical exam was notable for diffuse rales and wheezes. She had tenderness with palpation of the calves bilaterally with a positive Homans sign. There was no peripheral edema. Labs in the ED were notable for a white count of 13.5, hemoglobin 8.0 (down from 13.6 in Sep, 2019), normal coags, D-dimer of 2426, sodium of 131, potassium 6.4, chloride 102, bicarb 10, BUN and creatinine 143/9.6, glucose 123, normal lactic acid, phosphorus 13.6, troponin 1941 and 1709 on repeat, BNP 1838, and albumin 3.7. Urinalysis was negative; there was 2+ urine protein. COVID [place] was negative. EKG in the ED showed low amplitude Rw/PRVP in V1-3, NCFPT. Duplex scan of the lower extremities and lung perfusion scan were negative. I saw the patient in the ED at about 1330. She c/o being cold and pain in her legs. Rectal temp was 95.4. We put a janak hugger on. Heart rate was 69, blood pressure 131/76, she was breathing easy and looked nontoxic, sat was 98% on room air. She looked uncomfortable. She complained of being very cold. She had 4 cm jugular venous distention with the head of the bed at about 30 degrees. Chest was clear. Abdomen was benign. She had no peripheral edema. LABS IN THE ED: As noted above. IMAGING: Chest x-ray (my reading) shows diffused increased interstitial markings, possible small blunting of both angles. ECHOCARDIOGRAM done by me at the bedside: Image quality: Good. Findings: 1. Mild LVH 2. LV and RV cavity size normal. 3. LV function low-normal, could be as low as 40-50%. No regional wall motion abnormalities. RV function was normal. 4. Tricuspid valve continuous wave Doppler measured 2.5m/s (gradient 25mm). 5. IVC dilated at 2.8 cm with minimal inspiratory collapse. Estimated CVP 15 mm. Estimated RVSP 40 mm. IMPRESSION: 1. Acute on chronic kidney injury. Etiology unclear. She doesn?t look infected to me. 2. Probable fluid overload (by JVD, echo, and BNP). 3. Possible mild pulmon edema on CXR. 4. Hyperkalemia. 5. Elevated troponin of ? significance. Most immediate imperative is treating the hyperkalemia. Rx as usual. Kayexelate if poss. F/u labs pending. Discussed with Dr. Walters. We?ll diurese her aggressively with Lasix and Diuril. Admit ICU for further monitoring and mx. Dr. Solis thinks this is NSTEMI and rec?d tx with heparin, ASA, statin and beta alessia. Critical care time: 90 min. [facility] Past Medical History Medical History Anemia Asthmatic bronchitis CKD (chronic kidney disease), stage IV Depression DVT (deep venous thrombosis) GERD (gastroesophageal reflux disease) History of ectopic Hypertension Family History Family History Father No problems noted. Mother No problems noted. Surgical History Surgical History H/O colonoscopy History of carpal tunnel release of both wrists History of left knee replacement History of rectal surgery Status post total replacement of right shoulder Social History Social History Household Members: Spouse Housing: House Do you presently have visiting nurse or other home services: No Alcohol intake: unknown Smoking Status: Current every day smoker Tobacco Type: Cigarette Cigarettes Per Day: 1 Use of substances other than those prescribed or required for medical reasons: No Have you been hit, kicked, punched, or otherwise hurt by someone within the past year? If so, by whom?: No Do you feel safe in your current relationship?: Yes Is there a partner from a previous relationship who is making you feel unsafe now?: No Are you made to feel afraid or neglected: No Spiritual Healthcare Practices: none per patient Cheondoism Healthcare Practices: none per patient Cultural Healthcare Practices: none per patient Advance Directives: No Advance Directives Information Provided: No Do you have thoughts of harming others: None Do you have a plan to hurt others: No Plan Recently lost weight without trying: No Current occupational status: employed and other Current occupation: young,right handed Meds Allergies Allergy/AdvReac Type Severity Reaction Status Date / Time atenolol [ATENOLOL] Allergy Unknown DIFF Verified 12/09/20 11:34 BREATHING, heart races. amphetamine [Adderall] AdvReac Unknown shortness Verified 12/09/20 11:34 of breath dextroamphetamine [Adderall] AdvReac Unknown shortness Verified 12/09/20 11:34 of breath Active Medications: Current Medications Generic Name Dose Route Start Last Admin Trade Name Freq PRN Reason Stop Dose Admin Heparin Sodium (Porcine) 2,400 unit 12/13/20 12:59 12/13/20 13:23 Heparin Sodium,Porcine 5,000 Unit/Ml Vial 40 unit/kg (2400 unit) 2,400 unit IVPUSH Administration BOLUS PRN 40 unit/kg - Heparin Protocol Hydromorphone HCl 0.5 mg 12/13/20 15:58 Hydromorphone Hcl 0.5 Mg/0.5 Ml Syringe IVPUSH Q2H PRN Pain, Mild (Pain Scale 1-3) Heparin Sodium/Sodium Chloride 25,000 unit in 250 mls @ 0 mls/hr 12/13/20 13:00 12/13/20 13:25 IVCONT 12 units/kg/hr .Q0M DIMITRY 7.35 mls/hr Administration Protocol Per Protocol Furosemide 500 mg/ IV 50 mls @ 2 mls/hr 12/13/20 15:30 12/13/20 15:53 Miscellaneous Supplies IVCONT 20 mg/hr .Q24H DIMITRY 2 mls/hr Administration 20 MG/HR Home Medications Medication Instructions Recorded Confirmed Last Taken Type amlodipine 10 mg tablet 10 mg PO DAILY 08/10/20 12/13/20 Unknown History furosemide 40 mg tablet 40 mg PO DAILY 08/10/20 12/13/20 Unknown History calcitriol 0.5 mcg capsule 0.5 mcg PO DAILY 12/09/20 12/13/20 Unknown History carvedilol 25 mg tablet 25 mg PO BID 12/09/20 12/13/20 Unknown History Physical Exam Vital Signs: Vital Signs: Last Vital Signs Temp 95.1 F L 12/13/20 13:58 Pulse 72 12/13/20 17:00 Resp 24 H 12/13/20 17:00 BP 132/64 12/13/20 17:00 Pulse Ox 97 12/13/20 17:00 Oxygen Flow Rate 0 12/13/20 17:00 Body Mass Index 23.1 Results Labs CBC and Chem 7: 12/13/20 07:17 12/13/20 15:33 Labs: Laboratory Results - last 24 hr 12/13/20 12/13/20 12/13/20 07:17 07:17 07:17 MCV 92.5 MCH 30.0 MCHC 32.4 RDW 14.6 Plt Count 267 MPV 9.8 Immature Gran % (Auto) Cancelled Neut % (Auto) Cancelled Lymph % (Auto) Cancelled [place] % (Auto) Cancelled Eos % (Auto) Cancelled Baso % (Auto) Cancelled Lymph # (Auto) Cancelled [place] # (Auto) Cancelled Eos # (Auto) Cancelled Baso # (Auto) Cancelled Abs Immat Gran (auto) Cancelled Absolute Neuts (auto) Cancelled Absolute Nucleated RBC 0.070 H Nucleated RBC % (auto) 0.5 H Neutrophils % (Manual) 79 H Band Neutrophils % 5 Lymphocytes % (Manual) 9 L Monocytes % (Manual) 5 Metamyelocytes % 2 Abs Neuts (Manual) 11.3 H Lymphocytes # (Manual) 1.2 Monocytes # (Manual) 0.7 Metamyelocytes # 0.3 Nucleated RBCs 1 H Platelet Estimate NORMAL Plt Morphology Comment Not Reportable RBC Morphology NOTED Tear Drop Cells 1+ (0-2) Ovalocytes 1+ (5-14) [place] Cells 3+ (>5) Acanthocytes (Spur) 1+ (0-2) PT INR APTT D-Dimer Anion Gap 25 H Estim Creat Clear Calc 4.5 Estimated GFR 4 POC Glucose Random Glucose 123 H Fasting Glucose Lactic Acid 0.5 Calcium 7.1 L Phosphorus 13.6 H Total Bilirubin 0.5 AST 15 ALT 16 Alkaline Phosphatase 68 Troponin I High Sens B-Natriuretic Peptide Total Protein 7.0 Albumin 3.7 Urine Color Urine Appearance Urine pH Ur Specific [place] Urine Protein Urine Glucose (UA) Urine Ketones Urine Blood Urine Nitrite Ur Leukocyte Esterase Urine RBC Urine WBC Ur Squamous Epith Cells Amorphous Sediment Urine Bacteria COVID-19 ([place]) COVID-19 Clin Com 12/13/20 12/13/20 12/13/20 07:17 07:17 07:21 MCV MCH MCHC RDW Plt Count MPV Immature Gran % (Auto) Neut % (Auto) Lymph % (Auto) [place] % (Auto) Eos % (Auto) Baso % (Auto) Lymph # (Auto) [place] # (Auto) Eos # (Auto) Baso # (Auto) Abs Immat Gran (auto) Absolute Neuts (auto) Absolute Nucleated RBC Nucleated RBC % (auto) Neutrophils % (Manual) Band Neutrophils % Lymphocytes % (Manual) Monocytes % (Manual) Metamyelocytes % Abs Neuts (Manual) Lymphocytes # (Manual) Monocytes # (Manual) Metamyelocytes # Nucleated RBCs Platelet Estimate Plt Morphology Comment RBC Morphology Tear Drop Cells Ovalocytes [place] Cells Acanthocytes (Spur) PT 11.1 INR 0.9 APTT 33.9 D-Dimer 2426 Anion Gap Estim Creat Clear Calc Estimated GFR POC Glucose Random Glucose Fasting Glucose Lactic Acid Calcium Phosphorus Total Bilirubin AST ALT Alkaline Phosphatase Troponin I High Sens 1941.9 H B-Natriuretic Peptide 1838 H Total Protein Albumin Urine Color Urine Appearance Urine pH Ur Specific [place] Urine Protein Urine Glucose (UA) Urine Ketones Urine Blood Urine Nitrite Ur Leukocyte Esterase Urine RBC Urine WBC Ur Squamous Epith Cells Amorphous Sediment Urine Bacteria COVID-19 ([place]) Negative COVID-19 Clin Com See Note 12/13/20 12/13/20 12/13/20 09:09 10:55 13:54 MCV MCH MCHC RDW Plt Count MPV Immature Gran % (Auto) Neut % (Auto) Lymph % (Auto) [place] % (Auto) Eos % (Auto) Baso % (Auto) Lymph # (Auto) [place] # (Auto) Eos # (Auto) Baso # (Auto) Abs Immat Gran (auto) Absolute Neuts (auto) Absolute Nucleated RBC Nucleated RBC % (auto) Neutrophils % (Manual) Band Neutrophils % Lymphocytes % (Manual) Monocytes % (Manual) Metamyelocytes % Abs Neuts (Manual) Lymphocytes # (Manual) Monocytes # (Manual) Metamyelocytes # Nucleated RBCs Platelet Estimate Plt Morphology Comment RBC Morphology Tear Drop Cells Ovalocytes [place] Cells Acanthocytes (Spur) PT INR APTT D-Dimer Anion Gap Estim Creat Clear Calc Estimated GFR POC Glucose 96 Random Glucose Fasting Glucose Lactic Acid Calcium Phosphorus Total Bilirubin AST ALT Alkaline Phosphatase Troponin I High Sens 1709.6 H B-Natriuretic Peptide Total Protein Albumin Urine Color YELLOW Urine Appearance HAZY Urine pH 5.5 Ur Specific [place] 1.025 Urine Protein 2+ H Urine Glucose (UA) NEG Urine Ketones NEG Urine Blood 1+ H Urine Nitrite NEG Ur Leukocyte Esterase NEG Urine RBC 1-4 Urine WBC 0-2 Ur Squamous Epith Cells 1+ Amorphous Sed[place] 1+ Urine Bacteria TRACE COVID-19 ([place]) COVID-19 Clin Com 12/13/20 15:33 MCV MCH MCHC RDW Plt Count MPV Immature Gran % (Auto) Neut % (Auto) Lymph % (Auto) [place] % (Auto) Eos % (Auto) Baso % (Auto) Lymph # (Auto) [place] # (Auto) Eos # (Auto) Baso # (Auto) Abs Immat Gran (auto) Absolute Neuts (auto) Absolute Nucleated RBC Nucleated RBC % (auto) Neutrophils % (Manual) Band Neutrophils % Lymphocytes % (Manual) Monocytes % (Manual) Metamyelocytes % Abs Neuts (Manual) Lymphocytes # (Manual) Monocytes # (Manual) Metamyelocytes # Nucleated RBCs Platelet Estimate Plt Morphology Comment RBC Morphology Tear Drop Cells Ovalocytes [place] Cells Acanthocytes (Spur) PT INR APTT D-Dimer Anion Gap 24 H Estim Creat Clear Calc 4.9 Estimated GFR 4 POC Glucose Random Glucose Fasting Glucose 97 Lactic Acid Calcium 6.5 L D Phosphorus Total Bilirubin 0.4 AST 13 ALT 14 Alkaline Phosphatase 53 D Troponin I High Sens B-Natriuretic Peptide Total Protein 6.4 L Albumin 3.1 L Urine Color Urine Appearance Urine pH Ur Specific [place] Urine Protein Urine Glucose (UA) Urine Ketones Urine Blood Urine Nitrite Ur Leukocyte Esterase Urine RBC Urine WBC Ur Squamous Epith Cells Amorphous Sediment Urine Bacteria COVID-19 ([place]) COVID-19 Clin Com Imaging Radiologist's Impressions: Impressions Chest X-Ray 12/13/20 05:50 IMPRESSION: No consolidation. Bronchial wall thickening can be seen with a small airways process such as asthma or atypical/viral infection. Venous Duplex 12/13/20 05:50 IMPRESSION: No DVT demonstrated in the bilateral lower extremities. Right Zuleta's cyst. Pulmonary Perfusion Imaging 12/13/20 08:42 IMPRESSION: Very low probability for pulmonary embolism. Critical Care Time Critical Care Time (minutes): 90
[2020-12-13] MEDS: HYDROmorphone HCl 0.5 MG/0.5 ML SYRINGE IVPUSH ×3 (17:12→21:28)
--- NOTE | 2020-12-13 17:15 | PC.NURSE ---
after dilaudid pt is resting quietly. no leaking of urine noted around fuentes. scant amount in tubing.
[2020-12-13 18:03] LABS: Lactic Acid 0.4 mmol/L (0.5-2.0)
--- NOTE | 2020-12-13 18:22 | PC.NURSE ---
Patient arrived to unit from ED via stretcher. Patient agitated, trying to get OOB, requiring frequent redirections. Patient c/o 5/10 chest heaviness - Dilaudid 0.5mg IV administered per MD. Heparin gtt runing at 12u/hr - next PTTHD in for 1930. Lasix gtt running at 20mg/hr. LS fine crackles, no edema noted, c/o of continuous SOB, on RA 96% spo2. Patient c/o increased need to urinate - fuentes present with no output noted - MD notified and urology consult not indicated at this time per MD. Plan for temp dialysis cath placement tomorrow followed by marina. Álvaro updated by this RN. Will continue to monitor.
[2020-12-13] MEDS: dexmedeTOMIDidine HCL/NS 400 MCG/100 ML INFUS..BTL 9.19 MCG IVCONT (19:10)
[2020-12-13 19:15] LABS: Glucose, Whole Blood 121 mg/dL (60-115)
[2020-12-13] MEDS: Albuterol Sulfate (0.083%) 2.5 MG/3 ML VIAL.NEB 10 MG INHALE (19:33)
[2020-12-13 20:08] LABS: PTT Heparin Drip 72.8 SEC (53-77.9)
[2020-12-13 20:56] LABS: Alanine Aminotransferase 16 U/L (0-31); Albumin Level 3.6 g/dL (3.5-5.0); Alkaline Phosphatase 59 U/L (39-117); Anion Gap 25 (12-20); Aspartate Amino Transferase 13 U/L (5-31); Bilirubin Total 0.4 mg/dL (0.0-1.0); Calcium 6.7 mg/dL (8.4-10.2); Carbon Dioxide 8 mmol/L (22-29); Chloride 103 mmol/L (96-108); Creatinine Clr Calc Pharmacy 4.4; Estimated Glomerular Filt Rate 4; Glucose Random 128 mg/dL (60-115); Potassium 6.4 mmol/L (3.3-5.1); Sodium 130 mmol/L (135-145); Total Protein 6.7 g/dL (6.5-8.0)
[2020-12-13 21:28] LABS: Blood Urea Nitrogen 151 mg/dL (9-16)
[2020-12-13 22:15] LABS: ABG Base Excess -23.5 mmol/L; ABG HCO3 6 mmol/L (22-26); ABG pCO2 22 mmHg (32-45); ABG pCO2 TC 20 mmHg (32-45); ABG pH TC 7.02 (7.35-7.45); ABG pO2 100 mmHg (83-108); ABG pO2 TC 88 (83-108)
[2020-12-13 23:13] LABS: ABG Refer to POC result
[2020-12-14] VITALS (28 sets, daily range): BP systolic 108–153; BP diastolic 62–97; PULSE 70–105; RESP 12–33; TEMP 36.4–38.2; O2SAT 93–100; BMI 24.9
--- NOTE | 2020-12-14 | ECG_ITS ---
Test Reason : NSTEMI Blood Pressure : / mmHG Vent. Rate : 080 BPM Atrial Rate : 082 BPM P-R Int : 000 ms QRS Dur : 082 ms QT Int : 416 ms P-R-T Axes : 000 -02 043 degrees QTc Int : [address] & T wave abnormality, consider anterolateral ischemia Abnormal ECG When compared with ECG of 14-DEC-2020 00:40, Rhythm change Referred By: Vern Enamorado Electronically Signed By:VERN ENAMORADO
--- NOTE | 2020-12-14 00:50 | ECG_ITS ---
Test Reason : rhythm change Blood Pressure : / mmHG Vent. Rate : 106 BPM Atrial Rate : 111 BPM P-R Int : 000 ms QRS Dur : 084 ms QT Int : 264 ms P-R-T Axes : 000 -14 230 degrees QTc Int : 350 ms Sinus with PACs vs flutter ST & T wave abnormality, consider anterolateral ischemia Abnormal ECG When compared with ECG of 13-DEC-2020 06:09, Rhythm change Referred By: Narinder Rivera Electronically Signed By:VERN ENAMORADO
[2020-12-14] MEDS: Metoprolol Tartrate 2.5 MG in 0.9 % Sodium Chloride 50 ML 210 MG IV (01:13)
[2020-12-14] MEDS: Metoprolol Tartrate 5 MG/5 ML VIAL 2.5 MG IVPUSH (01:15)
[2020-12-14 01:37] LABS: PTT Heparin Drip 50.4 SEC (53-77.9)
[2020-12-14] MEDS: Heparin Sodium,Porcine 5,000 UNIT/ML VIAL 2400 UNIT IVPUSH ×2 (02:01→21:16)
[2020-12-14] MEDS: dexmedeTOMIDidine HCL/NS 400 MCG/100 ML INFUS..BTL 12.25 MCG IVCONT (02:11)
[2020-12-14] MEDS: HYDROmorphone HCl 0.5 MG/0.5 ML SYRINGE IVPUSH ×2 (02:32→20:32)
[2020-12-14] MEDS: Sodium Bicarbonate 8.4% 50 MEQ/50 ML VIAL IVPUSH ×2 (03:11)
[2020-12-14 03:54] LABS: HBS Num1 0.13 mIU/mL (0-7.99); Hepatitis B Core Antibody Nonreactive (Nonreactive); ~Hepatitis B Surface Antibody NONREACTIVE (Nonreactive)
[2020-12-14 03:59] LABS: HBsAGNum1 0.61 S/CO (0.00-0.99); Hepatitis B Surface Antigen Negative (Negative)
[2020-12-14 05:31] LABS: VBG Base Excess -1.9 mmol/L; VBG HCO3 20 mmol/L (22-26); VBG pCO2 27 mmHg; VBG pH 7.48 (7.32-7.43); VBG pO2 62 mmHg
[2020-12-14 05:34] LABS: MANUAL DIFF FLAG NO
[2020-12-14 05:52] LABS: Venous Blood Gas Refer to POC result
[2020-12-14 05:53] LABS: Basophils Percent Auto 0.2 % (0-2); Hemoglobin 7.2 g/dl (12.0-16.0); Imm Gran Pct Auto 2.6 % (0.0-0.4); Lymphocytes Absolute Auto 0.9 X10*3/uL (1.2-4.9); Lymphocytes Percent Auto 8.1 % (20-40); Mean Corpuscular HGB Conc 35.3 g/dl (31.0-35.0); Mean Corpuscular Hemoglobin 30.1 pg (27.0-33.0); Mean Corpuscular Volume 85.4 fL (80-98); Mean Platelet Volume 10.4 fL (9.4-12.3); Monocytes Absolute Auto 1.1 X10*3/uL (0.1-1.2); NRBC Pct Auto 0.6 /100WBC (0.0-0.2); Neutrophils Percent Auto 79.1 % (45-73); Platelet Count 174 X10*3/uL (160-400); Red Blood Count 2.39 X10*6/uL (4.20-5.50); Red Cell Distribution Width 13.2 % (11.0-16.0); White Blood Count 11.4 X10*3/uL (4.8-10.8)
[2020-12-14 05:58] LABS: Hematocrit 20.4 % (37-47)
[2020-12-14 06:17] LABS: Creatinine Clr Calc Pharmacy 7.1; Estimated Glomerular Filt Rate 7
[2020-12-14 06:18] LABS: Alanine Aminotransferase 12 U/L (0-31); Albumin Level 3.1 g/dL (3.5-5.0); Alkaline Phosphatase 50 U/L (39-117); Anion Gap 21 (12-20); Aspartate Amino Transferase 12 U/L (5-31); Bilirubin Total 0.4 mg/dL (0.0-1.0); Blood Urea Nitrogen 91 mg/dL (9-16); Calcium 7.1 mg/dL (8.4-10.2); Carbon Dioxide 21 mmol/L (22-29); Chloride 101 mmol/L (96-108); Glucose Random 95 mg/dL (60-115); Phosphorus 9.1 mg/dL (2.7-4.5); Potassium 3.4 mmol/L (3.3-5.1); Sodium 140 mmol/L (135-145)
[2020-12-14] MEDS: dexmedeTOMIDidine HCL/NS 400 MCG/100 ML INFUS..BTL 6.12 MCG IVCONT ×2 (06:47→13:24)
[2020-12-14 08:07] LABS: PTT Heparin Drip 88.5 SEC (53-77.9)
--- NOTE | 2020-12-14 08:14 | CA_ITS ---
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 The visually estimated ejection fraction is between 40-45%. - Even with contrast use, unable to accurately assess wall motion. Possibly septal, basal inferior hypokinesis. - There is mild aortic valve stenosis. - There is mild mitral annular calcification. - Mild pulmonary hypertension is present. Findings Procedure Information Contrast agent, definity, is being given per protocol without apparent complications. Left Ventricle Normal left ventricular cavity size. There is moderately increased left ventricular wall thickness. The left ventricular systolic function is mildly decreased. The visually estimated ejection fraction is between 40-45%. The calculated ejection fraction is 45% by biplane method. Diastolic function is indeterminate on the basis of available data. Even with contrast use, unable to accurately assess wall motion. Possibly septal, basal inferior hypokinesis. Right Ventricle Normal right ventricular cavity size and systolic function. Atria The left atrium is mildly dilated. The right atrium is normal in size. Aortic Valve The aortic valve was not well visualized. There is mild aortic valve stenosis. The peak aortic velocity is 2.37 m/s with a calculated peak gradient of 22 mmHg. The mean gradient is 10 mmHg. The aortic valve area is 1.38 cm2. There is trace (trivial) aortic valve regurgitation. Mitral Valve There is mild mitral annular calcification. There is trace mitral valve regurgitation. There is no mitral valve stenosis. Pulmonic Valve The pulmonic valve was not well visualized. Tricuspid Valve There is trace tricuspid valve regurgitation. The right ventricular systolic pressure is 36 mmHg. The pulmonary artery systolic pressure is normal. Mild pulmonary hypertension is present. Great Vessels The aortic annulus, sinuses of valsalva, and asc aorta are normal in size. Venous The inferior vena cava is mildly dilated and collapses less than 50% with inspiration. Pericardium/Pleural There is no evidence of pericardial effusion. Prior Study Comparison No prior study available for comparison. Measurements 2D Linear Measurements IVSd: 1.37 0.6-0.9/0.6-1.0 cm LVIDd: 5.20 3.9-5.3/4.2-5.9 cm LVIDd Index: 3.04 2.4-3.2/2.2-3.1 cm/m2 LVIDs: 3.55 2.0-3.6 cm LVPWd: 1.31 0.7-1.1 cm Ao Root: 2.80 2.1-3.5 cm LA Diam: 4.20 2.7-3.8/3.0-4.0 cm LAIDs Index: 2.46 1.5-2.3 cm/m2 LV Mass: 362.64 67-162/88-224 g LV Mass Index: 212.07 43-95/49-115 g/m2 LVOT Diam: 2.00 3.0+(-)1.3 cm 2D Systolic Function EF 4C: 33.20 >55% EF 2C: 53.90 >55% EF BiP: 44.70 >55% Mitral Valve MV Pk E: 1.33 MV Decel Time: 196.00 E'Lateral: 9.46 E'Medial: 5.77 E/E' Med: 23.10 E/E' Lat: 14.10 PHT: 57.00 MVA PHT: 3.86 Decel [place]: 6.77 Aortic Valve AoV Pk Nirmal: 2.37 AoV Mn Nirmal: 1.37 AoV VTI: 0.50 AoV Pk Grad: 22.00 Aov Mn Grad: 10.00 LAVERN Cont.VTI: 1.38 LVOT LVOT Pk Nirmal: 1.05 LVOT Mn Nirmal: 0.68 LVOT VTI: 0.22 LVOT Pk Grad: 4.00 LVOT Mn Grad: 2.00 LVOT Diam: 2.00 LVOT Area: 3.14 Diastolic Function MV Pk E: 1.33 E'Medial: 5.77 E/E' Med: 23.10 E' Laterial: 9.46 E/E' Lat: 14.10 Tricuspid Valve TR Pk Nirmal: 2.29 TR Pk Grad: 21.00 RA Press: 15.00 RVSP: 36.00 Great Vessels Aorta Ao Root-2D: 2.80 2.0-3.7 cm Pulmonary Valve PV Pk Nirmal: 1.13 Peak PV Grad: 5.00 Updated in Other Vendor System with Status of Final Jose Elias Ugalde MD electronically signed on 12/14/2020 5:10:27 PM with status of Final
--- NOTE | 2020-12-14 08:14 | PM.CCPN ---
Subjective Subjective Date of Service: 12/14/20 Interval History: 70-year-old female hypertensive cardiovascular as well as Nephro pathic disease Presents with rapidly progressive renal failure following a course of cefuroxime but was in pulmonary edema as well as being hyperkalemic and markedly acidotic and had placement of dialysis catheter via the right internal jugular and emergent dialysis clearly very appropriate and and is currently in a controlled atrial flutter with heart rate of 74 oxygen saturation on nasal cannula 94% blood pressure 127/89 looking very comfortable and my bedside echo indicated just a very mild diffuse hypokinesis approximately 50% ejection fraction so mild reduction of systolic reserve but there is mitral annular calcification and there is aortic valvular calcification but there is no critical stenosis and no focal segmental wall motion abnormality although troponin is elevated but this is in the face of course of renal failure Urine output is increasing on a Lasix drip so she is no longer oliguric hopefully this bodes well for spontaneous recovery Physical Exam Vital Signs: Vital Signs: Last Vital Signs Temp 97.7 F 12/14/20 08:00 Pulse 83 12/14/20 08:00 Resp 20 12/14/20 08:00 BP 127/89 12/14/20 08:00 Pulse Ox 94 12/14/20 08:00 Oxygen Flow Rate 0 12/13/20 17:10 Body Mass Index 24.9 Const: Other: No significant respiratory effort with accessory muscles or diaphragm No significant wheezing or adventitious sounds Abdomen benign with no organomegaly nontender No peripheral edema EKG with diffuse nonspecific ST-T changes and atrial flutter but controlled rate Objective Data Labs CBC & Chem 7: 12/14/20 05:27 12/14/20 05:28 Labs: Laboratory Results - last 24 hr 12/13/20 12/13/20 12/13/20 07:17 07:17 07:17 WBC RBC Hgb Hct MCV MCH MCHC RDW Plt Count MPV Immature Gran % (Auto) Neut % (Auto) Lymph % (Auto) [place] % (Auto) Eos % (Auto) Baso % (Auto) Lymph # (Auto) [place] # (Auto) Eos # (Auto) Baso # (Auto) Abs Immat Gran (auto) Absolute Neuts (auto) Absolute Nucleated RBC Nucleated RBC % (auto) Neutrophils % (Manual) 79 H Band Neutrophils % 5 Lymphocytes % (Manual) 9 L Monocytes % (Manual) 5 Metamyelocytes % 2 Abs Neuts (Manual) 11.3 H Lymphocytes # (Manual) 1.2 Monocytes # (Manual) 0.7 Metamyelocytes # 0.3 Nucleated RBCs 1 H Platelet Estimate NORMAL Plt Morphology Comment Not Reportable RBC Morphology NOTED Tear Drop Cells 1+ (0-2) Ovalocytes 1+ (5-14) Marleni Cells 3+ (>5) Acanthocytes (Spur) 1+ (0-2) PTT (Heparin Protocol) O2 Saturation ABG pH at Pt Temp ABG pH (Temp Correct) ABG pCO2 at Pt Temp ABG pCO2 (Temp Corrct ABG pO2 at Pt Temp ABG pO2 (Temp Correct ABG HCO3 ABG Base Excess (Actual) VBG pH VBG pCO2 VBG pO2 VBG HCO3 VBG O2 Saturation VBG Base Excess Sodium 131 L Potassium 6.4 H* Chloride 102 Carbon Dioxide 10 L* Anion Gap 25 H BUN 143 H* Creatinine 9.63 H* Estim Creat Clear Calc 4.5 Estimated GFR 4 POC Glucose Random Glucose 123 H Fasting Glucose Lactic Acid Calcium 7.1 L Phosphorus 13.6 H Total Bilirubin 0.5 AST 15 ALT 16 Alkaline Phosphatase 68 Troponin I High Sens 1941.9 H B-Natriuretic Peptide 1838 H Total Protein 7.0 Albumin 3.7 Urine Color Urine Appearance Urine pH Ur Specific [place] Urine Protein Urine Glucose (UA) Urine Ketones Urine Blood Urine Nitrite Ur Leukocyte Esterase Urine RBC Urine WBC Ur Squamous Epith Cells Amorphous Sediment Urine Bacteria Hep Bs Antigen Hep Bs Antibody Hep B Core Total Ab 12/13/20 12/13/20 12/13/20 07:17 09:09 10:55 WBC RBC Hgb Hct MCV MCH MCHC RDW Plt Count MPV Immature Gran % (Auto) Neut % (Auto) Lymph % (Auto) [place] % (Auto) Eos % (Auto) Baso % (Auto) Lymph # (Auto) [place] # (Auto) Eos # (Auto) Baso # (Auto) Abs Immat Gran (auto) Absolute Neuts (auto) Absolute Nucleated RBC Nucleated RBC % (auto) Neutrophils % (Manual) Band Neutrophils % Lymphocytes % (Manual) Monocytes % (Manual) Metamyelocytes % Abs Neuts (Manual) Lymphocytes # (Manual) Monocytes # (Manual) Metamyelocytes # Nucleated RBCs Platelet Estimate Plt Morphology Comment RBC Morphology Tear Drop Cells Ovalocytes Marleni Cells Acanthocytes (Spur) PTT (Heparin Protocol) O2 Saturation ABG pH at Pt Temp ABG pH (Temp Correct) ABG pCO2 at Pt Temp ABG pCO2 (Temp Corrct ABG pO2 at Pt Temp ABG pO2 (Temp Correct ABG HCO3 ABG Base Excess (Actual) VBG pH VBG pCO2 VBG pO2 VBG HCO3 VBG O2 Saturation VBG Base Excess Sodium Potassium Chloride Carbon Dioxide Anion Gap BUN Creatinine Estim Creat Clear Calc Estimated GFR POC Glucose Random Glucose Fasting Glucose Lactic Acid Calcium Phosphorus Total Bilirubin AST ALT Alkaline Phosphatase Troponin I High Sens 1709.6 H B-Natriuretic Peptide Total Protein Albumin Urine Color YELLOW Urine Appearance HAZY Urine pH 5.5 Ur Specific [place] 1.025 Urine Protein 2+ H Urine Glucose (UA) NEG Urine Ketones NEG Urine Blood 1+ H Urine Nitrite NEG Ur Leukocyte Esterase NEG Urine RBC 1-4 Urine WBC 0-2 Ur Squamous Epith Cells 1+ Amorphous Sediment 1+ Urine Bacteria TRACE Hep Bs Antigen Negative Hep Bs Antibody NONREACTIVE Hep B Core Total Ab Nonreactive 12/13/20 12/13/20 12/13/20 13:54 15:33 17:20 WBC RBC Hgb Hct MCV MCH MCHC RDW Plt Count MPV Immature Gran % (Auto) Neut % (Auto) Lymph % (Auto) [place] % (Auto) Eos % (Auto) Baso % (Auto) Lymph # (Auto) [place] # (Auto) Eos # (Auto) Baso # (Auto) Abs Immat Gran (auto) Absolute Neuts (auto) Absolute Nucleated RBC Nucleated RBC % (auto) Neutrophils % (Manual) Band Neutrophils % Lymphocytes % (Manual) Monocytes % (Manual) Metamyelocytes % Abs Neuts (Manual) Lymphocytes # (Manual) Monocytes # (Manual) Metamyelocytes # Nucleated RBCs Platelet Estimate Plt Morphology Comment RBC Morphology Tear Drop Cells Ovalocytes Marleni Cells Acanthocytes (Spur) PTT (Heparin Protocol) O2 Saturation ABG pH at Pt Temp ABG pH (Temp Correct) ABG pCO2 at Pt Temp ABG pCO2 (Temp Corrct ABG pO2 at Pt Temp ABG pO2 (Temp Correct ABG HCO3 ABG Base Excess (Actual) VBG pH VBG pCO2 VBG pO2 VBG HCO3 VBG O2 Saturation VBG Base Excess Sodium 126 L Potassium 6.4 H* Chloride 101 Carbon Dioxide 7 L* D Anion Gap 24 H BUN 136 H* Creatinine 8.83 H* Estim Creat Clear Calc 4.9 Estimated GFR 4 POC Glucose 96 Random Glucose Fasting Glucose 97 Lactic Acid 0.4 L Calcium 6.5 L D Phosphorus Total Bilirubin 0.4 AST 13 ALT 14 Alkaline Phosphatase 53 D Troponin I High Sens B-Natriuretic Peptide Total Protein 6.4 L Albumin 3.1 L Urine Color Urine Appearance Urine pH Ur Specific [place] Urine Protein Urine Glucose (UA) Urine Ketones Urine Blood Urine Nitrite Ur Leukocyte Esterase Urine RBC Urine WBC Ur Squamous Epith Cells Amorphous Sediment Urine Bacteria Hep Bs Antigen Hep Bs Antibody Hep B Core Total Ab 12/13/20 12/13/20 12/13/20 19:12 19:33 19:33 WBC RBC Hgb Hct MCV MCH MCHC RDW Plt Count MPV Immature Gran % (Auto) Neut % (Auto) Lymph % (Auto) [place] % (Auto) Eos % (Auto) Baso % (Auto) Lymph # (Auto) [place] # (Auto) Eos # (Auto) Baso # (Auto) Abs Immat Gran (auto) Absolute Neuts (auto) Absolute Nucleated RBC Nucleated RBC % (auto) Neutrophils % (Manual) Band Neutrophils % Lymphocytes % (Manual) Monocytes % (Manual) Metamyelocytes % Abs Neuts (Manual) Lymphocytes # (Manual) Monocytes # (Manual) Metamyelocytes # Nucleated RBCs Platelet Estimate Plt Morphology Comment RBC Morphology Tear Drop Cells Ovalocytes Marleni Cells Acanthocytes (Spur) PTT (Heparin Protocol) 72.8 O2 Saturation ABG pH at Pt Temp ABG pH (Temp Correct) ABG pCO2 at Pt Temp ABG pCO2 (Temp Corrct ABG pO2 at Pt Temp ABG pO2 (Temp Correct ABG HCO3 ABG Base Excess (Actual) VBG pH VBG pCO2 VBG pO2 VBG HCO3 VBG O2 Saturation VBG Base Excess Sodium 130 L Potassium 6.4 H* Chloride 103 Carbon Dioxide 8 L* Anion Gap 25 H BUN 151 H* Creatinine 9.86 H* Estim Creat Clear Calc 4.4 Estimated GFR 4 POC Glucose 121 H Random Glucose 128 H Fasting Glucose Lactic Acid Calcium 6.7 L Phosphorus Total Bilirubin 0.4 AST 13 ALT 16 Alkaline Phosphatase 59 Troponin I High Sens B-Natriuretic Peptide Total Protein 6.7 Albumin 3.6 Urine Color Urine Appearance Urine pH Ur Specific [place] Urine Protein Urine Glucose (UA) Urine Ketones Urine Blood Urine Nitrite Ur Leukocyte Esterase Urine RBC Urine WBC Ur Squamous Epith Cells Amorphous Sediment Urine Bacteria Hep Bs Antigen Hep Bs Antibody Hep B Core Total Ab 12/13/20 12/14/20 12/14/20 22:08 01:17 05:26 WBC RBC Hgb Hct MCV MCH MCHC RDW Plt Count MPV Immature Gran % (Auto) Neut % (Auto) Lymph % (Auto) [place] % (Auto) Eos % (Auto) Baso % (Auto) Lymph # (Auto) [place] # (Auto) Eos # (Auto) Baso # (Auto) Abs Immat Gran (auto) Absolute Neuts (auto) Absolute Nucleated RBC Nucleated RBC % (auto) Neutrophils % (Manual) Band Neutrophils % Lymphocytes % (Manual) Monocytes % (Manual) Metamyelocytes % Abs Neuts (Manual) Lymphocytes # (Manual) Monocytes # (Manual) Metamyelocytes # Nucleated RBCs Platelet Estimate Plt Morphology Comment RBC Morphology Tear Drop Cells Ovalocytes [place] Cells Acanthocytes (Spur) PTT (Heparin Protocol) 50.4 L D O2 Saturation 95.0 ABG pH at Pt Temp 7.00 L* ABG pH (Temp Correct) 7.02 L* ABG pCO2 at Pt Temp 22 L ABG pCO2 (Temp Corrct 20 L* ABG pO2 at Pt Temp 100 ABG pO2 (Temp Correct 88 ABG HCO3 6 L ABG Base Excess (Actual) -23.5 VBG pH 7.48 H VBG pCO2 27 VBG pO2 62 VBG HCO3 20 L VBG O2 Saturation 91.0 VBG Base Excess -1.9 Sodium Potassium Chloride Carbon Dioxide Anion Gap BUN Creatinine Estim Creat Clear Calc Estimated GFR POC Glucose Random Glucose Fasting Glucose Lactic Acid Calcium Phosphorus Total Bilirubin AST ALT Alkaline Phosphatase Troponin I High Sens B-Natriuretic Peptide Total Protein Albumin Urine Color Urine Appearance Urine pH Ur Specific [place] Urine Protein Urine Glucose (UA) Urine Ketones Urine Blood Urine Nitrite Ur Leukocyte Esterase Urine RBC Urine WBC Ur Squamous Epith Cells Amorphous Sediment Urine Bacteria Hep Bs Antigen Hep Bs Antibody Hep B Core Total Ab 12/14/20 12/14/20 12/14/20 05:27 05:28 05:28 WBC 11.4 H RBC 2.39 L Hgb 7.2 L Hct 20.4 L* MCV 85.4 D MCH 30.1 MCHC 35.3 H RDW 13.2 Plt Count 174 D MPV 10.4 Immature Gran % (Auto) 2.6 H Neut % (Auto) 79.1 H Lymph % (Auto) 8.1 L [place] % (Auto) 10.0 Eos % (Auto) 0.0 Baso % (Auto) 0.2 Lymph # (Auto) 0.9 L [place] # (Auto) 1.1 Eos # (Auto) 0.0 Baso # (Auto) 0.0 Abs Immat Gran (auto) 0.30 H Absolute Neuts (auto) 9.0 H Absolute Nucleated RBC 0.070 H Nucleated RBC % (auto) 0.6 H Neutrophils % (Manual) Band Neutrophils % Lymphocytes % (Manual) Monocytes % (Manual) Metamyelocytes % Abs Neuts (Manual) Lymphocytes # (Manual) Monocytes # (Manual) Metamyelocytes # Nucleated RBCs Platelet Estimate Plt Morphology Comment RBC Morphology Tear Drop Cells Ovalocytes Marleni Cells Acanthocytes (Spur) PTT (Heparin Protocol) O2 Saturation ABG pH at Pt Temp ABG pH (Temp Correct) ABG pCO2 at Pt Temp ABG pCO2 (Temp Corrct ABG pO2 at Pt Temp ABG pO2 (Temp Correct ABG HCO3 ABG Base Excess (Actual) VBG pH VBG pCO2 VBG pO2 VBG HCO3 VBG O2 Saturation VBG Base Excess Sodium 140 Potassium 3.4 D Chloride 101 Carbon Dioxide 21 L Anion Gap 21 H BUN 91 H* D Creatinine 6.19 H* Estim Creat Clear Calc 7.1 Estimated GFR 7 POC Glucose Random Glucose 95 Fasting Glucose Lactic Acid Calcium 7.1 L Phosphorus 9.1 H Total Bilirubin 0.4 AST 12 ALT 12 Alkaline Phosphatase 50 Troponin I High Sens 3157.2 H D B-Natriuretic Peptide Total Protein 6.0 L Albumin 3.1 L Urine Color Urine Appearance Urine pH Ur Specific [place] Urine Protein Urine Glucose (UA) Urine Ketones Urine Blood Urine Nitrite Ur Leukocyte Esterase Urine RBC Urine WBC Ur Squamous Epith Cells Amorphous Sediment Urine Bacteria Hep Bs Antigen Hep Bs Antibody Hep B Core Total Ab 12/14/20 07:46 WBC RBC Hgb Hct MCV MCH MCHC RDW Plt Count MPV Immature Gran % (Auto) Neut % (Auto) Lymph % (Auto) [place] % (Auto) Eos % (Auto) Baso % (Auto) Lymph # (Auto) [place] # (Auto) Eos # (Auto) Baso # (Auto) Abs Immat Gran (auto) Absolute Neuts (auto) Absolute Nucleated RBC Nucleated RBC % (auto) Neutrophils % (Manual) Band Neutrophils % Lymphocytes % (Manual) Monocytes % (Manual) Metamyelocytes % Abs Neuts (Manual) Lymphocytes # (Manual) Monocytes # (Manual) Metamyelocytes # Nucleated RBCs Platelet Estimate Plt Morphology Comment RBC Morphology Tear Drop Cells Ovalocytes [place] Cells Acanthocytes (Spur) PTT (Heparin Protocol) 88.5 H D O2 Saturation ABG pH at Pt Temp ABG pH (Temp Correct) ABG pCO2 at Pt Temp ABG pCO2 (Temp Corrct ABG pO2 at Pt Temp ABG pO2 (Temp Correct ABG HCO3 ABG Base Excess (Actual) VBG pH VBG pCO2 VBG pO2 VBG HCO3 VBG O2 Saturation VBG Base Excess Sodium Potassium Chloride Carbon Dioxide Anion Gap BUN Creatinine Estim Creat Clear Calc Estimated GFR POC Glucose Random Glucose Fasting Glucose Lactic Acid Calcium Phosphorus Total Bilirubin AST ALT Alkaline Phosphatase Troponin I High Sens B-Natriuretic Peptide Total Protein Albumin Urine Color Urine Appearance Urine pH Ur Specific [place] Urine Protein Urine Glucose (UA) Urine Ketones Urine Blood Urine Nitrite Ur Leukocyte Esterase Urine RBC Urine WBC Ur Squamous Epith Cells Amorphous Sediment Urine Bacteria Hep Bs Antigen Hep Bs Antibody Hep B Core Total Ab Progress Note: A&P Assessment and plan (1) Acute on chronic kidney failure: Status: Acute (2) Non-ST elevation [place] (NSTEMI): Status: Acute (3) Acute hyperkalemia: Status: Acute (4) Hyperkalemia: Problem details: sec to VIVIANA inability to secrete K Status: Acute (5) Acidosis: Problem details: sec to VIVIANA inability to excrete acid Status: Acute (6) CKD stage 5 secondary to hypertension: Problem details: known for years, baseline 3-4 mg/dL Proteinuria ischemic nephropathy FSGS Status: Acute (7) Acute renal disease: Problem details: sec to ATN likely ischemic vs septic unclear yet if Acute coronary syndrome playing a role Status: Acute (8) Asthmatic bronchitis: Status: Acute (9) DVT (deep venous thrombosis): Status: Acute (10) Acute pulmonary edema with congestive heart failure: Status: Acute (11) Interstitial nephritis, acute: Status: Acute (12) Atrial flutter with controlled response: Status: Acute Assessment and Plan: Will review old EKGs to see if atrial flutter is new but would proceed with another dialysis treatment today as we observe and will probably need to transfuse at least 1 unit of packed red cells for a hemoglobin of 7.2 in the face of what appears to be cardiovascular disease (13) Anemia: Status: Acute
--- NOTE | 2020-12-14 09:34 | PM.PNNEP ---
Subjective Subjective Date of Service: 12/14/20 Interval history: 70-year-old female hypertensive CKD stage [address] Walters who I have known a bit over the years. Dialyzed urgently yesterday for ? uremia, severe acidosis, hyperkalemia. IV lasix given with only 500 ml UOP recorded overnight. More alert this am, emotionally labile but redirectable. No chest pain but very high troponin, echo pending. Cardiology involved as well. Physical Exam Vital Signs: Vital Signs: Last Vital Signs Temp 97.5 F 12/14/20 09:00 Pulse 83 12/14/20 09:00 Resp 18 12/14/20 09:00 BP 117/81 12/14/20 09:00 Pulse Ox 96 12/14/20 09:00 Oxygen Flow Rate 0 12/13/20 17:10 Body Mass Index 24.9 Const: General: no acute distress, alert, awake and anxious Orientation/consciousness: oriented to person, oriented to place and oriented to time HENMT: Head: Yes atraumatic Neck: Neck: Yes full ROM and Yes JVD Chest: Chest palpation & inspection: normal inspection of the chest Resp: Auscultation: crackles Cardio: Jugular venous distension: JVD Rate: regular rate Rhythm: regular rhythm GI: Inspection: Yes normal to inspection Skin: General skin exam: no rashes or lesions noted Neuro: General: oriented to person, oriented to place and oriented to time Extrem: General: Yes pedal edema Objective Data Labs CBC & Chem 7: 12/14/20 05:27 12/14/20 05:28 Labs: Laboratory Results - last 24 hr 12/13/20 12/13/20 12/13/20 07:17 07:17 07:17 WBC RBC Hgb Hct MCV MCH MCHC RDW Plt Count MPV Immature Gran % (Auto) Neut % (Auto) Lymph % (Auto) [place] % (Auto) Eos % (Auto) Baso % (Auto) Lymph # (Auto) [place] # (Auto) Eos # (Auto) Baso # (Auto) Abs Immat Gran (auto) Absolute Neuts (auto) Absolute Nucleated RBC Nucleated RBC % (auto) Plt Morphology Comment Not Reportable PTT (Heparin Protocol) O2 Saturation ABG pH at Pt Temp ABG pH (Temp Correct) ABG pCO2 at Pt Temp ABG pCO2 (Temp Corrct ABG pO2 at Pt Temp ABG pO2 (Temp Correct ABG HCO3 ABG Base Excess (Actual) VBG pH VBG pCO2 VBG pO2 VBG HCO3 VBG O2 Saturation VBG Base Excess Sodium Potassium Chloride Carbon Dioxide Anion Gap BUN Creatinine Estim Creat Clear Calc Estimated GFR POC Glucose Random Glucose Fasting Glucose Lactic Acid Calcium Phosphorus 13.6 H Total Bilirubin AST ALT Alkaline Phosphatase Troponin I High Sens Total Protein Albumin Urine RBC Urine WBC Ur Squamous Epith Cells Amorphous Sediment Urine Bacteria Hep Bs Antigen Negative Hep Bs Antibody NONREACTIVE Hep B Core Total Ab Nonreactive Blood Type Antibody Screen Crossmatch 12/13/20 12/13/20 12/13/20 09:09 10:55 13:54 WBC RBC Hgb Hct MCV MCH MCHC RDW Plt Count MPV Immature Gran % (Auto) Neut % (Auto) Lymph % (Auto) [place] % (Auto) Eos % (Auto) Baso % (Auto) Lymph # (Auto) [place] # (Auto) Eos # (Auto) Baso # (Auto) Abs Immat Gran (auto) Absolute Neuts (auto) Absolute Nucleated RBC Nucleated RBC % (auto) Plt Morphology Comment PTT (Heparin Protocol) O2 Saturation ABG pH at Pt Temp ABG pH (Temp Correct) ABG pCO2 at Pt Temp ABG pCO2 (Temp Corrct ABG pO2 at Pt Temp ABG pO2 (Temp Correct ABG HCO3 ABG Base Excess (Actual) VBG pH VBG pCO2 VBG pO2 VBG HCO3 VBG O2 Saturation VBG Base Excess Sodium Potassium Chloride Carbon Dioxide Anion Gap BUN Creatinine Estim Creat Clear Calc Estimated GFR POC Glucose 96 Random Glucose Fasting Glucose Lactic Acid Calcium Phosphorus Total Bilirubin AST ALT Alkaline Phosphatase Troponin I High Sens 1709.6 H Total Protein Albumin Urine RBC 1-4 Urine WBC 0-2 Ur Squamous Epith Cells 1+ Amorphous Sediment 1+ Urine Bacteria TRACE Hep Bs Antigen Hep Bs Antibody Hep B Core Total Ab Blood Type Antibody Screen Crossmatch 12/13/20 12/13/20 12/13/20 15:33 17:20 19:12 WBC RBC Hgb Hct MCV MCH MCHC RDW Plt Count MPV Immature Gran % (Auto) Neut % (Auto) Lymph % (Auto) [place] % (Auto) Eos % (Auto) Baso % (Auto) Lymph # (Auto) [place] # (Auto) Eos # (Auto) Baso # (Auto) Abs Immat Gran (auto) Absolute Neuts (auto) Absolute Nucleated RBC Nucleated RBC % (auto) Plt Morphology Comment PTT (Heparin Protocol) O2 Saturation ABG pH at Pt Temp ABG pH (Temp Correct) ABG pCO2 at Pt Temp ABG pCO2 (Temp Corrct ABG pO2 at Pt Temp ABG pO2 (Temp Correct ABG HCO3 ABG Base Excess (Actual) VBG pH VBG pCO2 VBG pO2 VBG HCO3 VBG O2 Saturation VBG Base Excess Sodium 126 L Potassium 6.4 H* Chloride 101 Carbon Dioxide 7 L* D Anion Gap 24 H BUN 136 H* Creatinine 8.83 H* Estim Creat Clear Calc 4.9 Estimated GFR 4 POC Glucose 121 H Random Glucose Fasting Glucose 97 Lactic Acid 0.4 L Calcium 6.5 L D Phosphorus Total Bilirubin 0.4 AST 13 ALT 14 Alkaline Phosphatase 53 D Troponin I High Sens Total Protein 6.4 L Albumin 3.1 L Urine RBC Urine WBC Ur Squamous Epith Cells Amorphous Sediment Urine Bacteria Hep Bs Antigen Hep Bs Antibody Hep B Core Total Ab Blood Type Antibody Screen Crossmatch 12/13/20 12/13/20 12/13/20 19:33 19:33 22:08 WBC RBC Hgb Hct MCV MCH MCHC RDW Plt Count MPV Immature Gran % (Auto) Neut % (Auto) Lymph % (Auto) [place] % (Auto) Eos % (Auto) Baso % (Auto) Lymph # (Auto) [place] # (Auto) Eos # (Auto) Baso # (Auto) Abs Immat Gran (auto) Absolute Neuts (auto) Absolute Nucleated RBC Nucleated RBC % (auto) Plt Morphology Comment PTT (Heparin Protocol) 72.8 O2 Saturation 95.0 ABG pH at Pt Temp 7.00 L* ABG pH (Temp Correct) 7.02 L* ABG pCO2 at Pt Temp 22 L ABG pCO2 (Temp Corrct 20 L* ABG pO2 at Pt Temp 100 ABG pO2 (Temp Correct 88 ABG HCO3 6 L ABG Base Excess (Actual) -23.5 VBG pH VBG pCO2 VBG pO2 VBG HCO3 VBG O2 Saturation VBG Base Excess Sodium 130 L Potassium 6.4 H* Chloride 103 Carbon Dioxide 8 L* Anion Gap 25 H BUN 151 H* Creatinine 9.86 H* Estim Creat Clear Calc 4.4 Estimated GFR 4 POC Glucose Random Glucose 128 H Fasting Glucose Lactic Acid Calcium 6.7 L Phosphorus Total Bilirubin 0.4 AST 13 ALT 16 Alkaline Phosphatase 59 Troponin I High Sens Total Protein 6.7 Albumin 3.6 Urine RBC Urine WBC Ur Squamous Epith Cells Amorphous Sediment Urine Bacteria Hep Bs Antigen Hep Bs Antibody Hep B Core Total Ab Blood Type Antibody Screen Crossmatch 12/14/20 12/14/20 12/14/20 01:17 05:26 05:27 WBC 11.4 H RBC 2.39 L Hgb 7.2 L Hct 20.4 L* MCV 85.4 D MCH 30.1 MCHC 35.3 H RDW 13.2 Plt Count 174 D MPV 10.4 Immature Gran % (Auto) 2.6 H Neut % (Auto) 79.1 H Lymph % (Auto) 8.1 L [place] % (Auto) 10.0 Eos % (Auto) 0.0 Baso % (Auto) 0.2 Lymph # (Auto) 0.9 L [place] # (Auto) 1.1 Eos # (Auto) 0.0 Baso # (Auto) 0.0 Abs Immat Gran (auto) 0.30 H Absolute Neuts (auto) 9.0 H Absolute Nucleated RBC 0.070 H Nucleated RBC % (auto) 0.6 H Plt Morphology Comment PTT (Heparin Protocol) 50.4 L D O2 Saturation ABG pH at Pt Temp ABG pH (Temp Correct) ABG pCO2 at Pt Temp ABG pCO2 (Temp Corrct ABG pO2 at Pt Temp ABG pO2 (Temp Correct ABG HCO3 ABG Base Excess (Actual) VBG pH 7.48 H VBG pCO2 27 VBG pO2 62 VBG HCO3 20 L VBG O2 Saturation 91.0 VBG Base Excess -1.9 Sodium Potassium Chloride Carbon Dioxide Anion Gap BUN Creatinine Estim Creat Clear Calc Estimated GFR POC Glucose Random Glucose Fasting Glucose Lactic Acid Calcium Phosphorus Total Bilirubin AST ALT Alkaline Phosphatase Troponin I High Sens Total Protein Albumin Urine RBC Urine WBC Ur Squamous Epith Cells Amorphous Sediment Urine Bacteria Hep Bs Antigen Hep Bs Antibody Hep B Core Total Ab Blood Type Antibody Screen Crossmatch 12/14/20 12/14/20 12/14/20 05:28 05:28 07:46 WBC RBC Hgb Hct MCV MCH MCHC RDW Plt Count MPV Immature Gran % (Auto) Neut % (Auto) Lymph % (Auto) [place] % (Auto) Eos % (Auto) Baso % (Auto) Lymph # (Auto) [place] # (Auto) Eos # (Auto) Baso # (Auto) Abs Immat Gran (auto) Absolute Neuts (auto) Absolute Nucleated RBC Nucleated RBC % (auto) Plt Morphology Comment PTT (Heparin Protocol) 88.5 H D O2 Saturation ABG pH at Pt Temp ABG pH (Temp Correct) ABG pCO2 at Pt Temp ABG pCO2 (Temp Corrct ABG pO2 at Pt Temp ABG pO2 (Temp Correct ABG HCO3 ABG Base Excess (Actual) VBG pH VBG pCO2 VBG pO2 VBG HCO3 VBG O2 Saturation VBG Base Excess Sodium 140 Potassium 3.4 D Chloride 101 Carbon Dioxide 21 L Anion Gap 21 H BUN 91 H* D Creatinine 6.19 H* Estim Creat Clear Calc 7.1 Estimated GFR 7 POC Glucose Random Glucose 95 Fasting Glucose Lactic Acid Calcium 7.1 L Phosphorus 9.1 H Total Bilirubin 0.4 AST 12 ALT 12 Alkaline Phosphatase 50 Troponin I High Sens 3157.2 H D Total Protein 6.0 L Albumin 3.1 L Urine RBC Urine WBC Ur Squamous Epith Cells Amorphous Sediment Urine Bacteria Hep Bs Antigen Hep Bs Antibody Hep B Core Total Ab Blood Type Antibody Screen Crossmatch 12/14/20 08:21 WBC RBC Hgb Hct MCV MCH MCHC RDW Plt Count MPV Immature Gran % (Auto) Neut % (Auto) Lymph % (Auto) [place] % (Auto) Eos % (Auto) Baso % (Auto) Lymph # (Auto) [place] # (Auto) Eos # (Auto) Baso # (Auto) Abs Immat Gran (auto) Absolute Neuts (auto) Absolute Nucleated RBC Nucleated RBC % (auto) Plt Morphology Comment PTT (Heparin Protocol) O2 Saturation ABG pH at Pt Temp ABG pH (Temp Correct) ABG pCO2 at Pt Temp ABG pCO2 (Temp Corrct ABG pO2 at Pt Temp ABG pO2 (Temp Correct ABG HCO3 ABG Base Excess (Actual) VBG pH VBG pCO2 VBG pO2 VBG HCO3 VBG O2 Saturation VBG Base Excess Sodium Potassium Chloride Carbon Dioxide Anion Gap BUN Creatinine Estim Creat Clear Calc Estimated GFR POC Glucose Random Glucose Fasting Glucose Lactic Acid Calcium Phosphorus Total Bilirubin AST ALT Alkaline Phosphatase Troponin I High Sens Total Protein Albumin Urine RBC Urine WBC Ur Squamous Epith Cells Amorphous Sediment Urine Bacteria Hep Bs Antigen Hep Bs Antibody Hep B Core Total Ab Blood Type B Positive Antibody Screen NEGATIVE Crossmatch See Detail Assessment & Plan Assessment and plan (1) Acute renal disease: Problem details: sec to ATN likely ischemic vs septic unclear yet if Acute coronary syndrome playing a role. May have progressed to ESRD next days will tell Dialysis today, can add lasix 80 mg q8h if volume otherwise dictates Status: Acute (2) CKD stage 5 secondary to hypertension: Problem details: known for years, baseline 3-4 mg/dL Proteinuria ischemic nephropathy FSGS Will arrange for another dialysis treatment today for clearance and plan for m/w/f schedule in order to accommodate potential need for left heart cath if cardiology should feel appropriate Status: Acute (3) NSTEMI (non-ST elevated myocardial infarction): Problem details: as above. K 3.4 will use K4 bath today. agree with 1 unit prbc Status: Acute (4) Anemia: Problem details: consider iron studies, hemolytic work up, b12, folate. Will assess possible procrit pending results but in setting of NSTEMI no pugh Status: Acute Time Spent With Patient Time: Total time spent is greater than 50% in coordination of care (as documented) at patient's floor/unit and/or counseling patient:
--- NOTE | 2020-12-14 09:54 | PM.PNCARD ---
Subjective Subjective Date of Service: 12/14/20 Interval history: Very emotional and tearful. It seems she may have had some chest discomfort when she came in but nothing currently. She is not giving clear answers in this regard. Review of Systems Review of Systems Yes all other systems are reviewed and are negative Cardiovascular: Reports as per HPI, Reports no additional cardiovascular complaints, Denies acrocyanosis, Denies cool extremities, Denies painful fingertips, Reports chest pain, Denies diaphoresis, Denies syncope, Denies irregular heart rhythm, Denies claudication, Denies leg edema, Denies lightheadedness, Denies palpitations and Denies dyspnea Respiratory: Denies dyspnea Denies syncope Endocrine: Denies palpitations Physical Exam Vital Signs: Last Vital Signs Temp 97.5 F 12/14/20 09:00 Pulse 83 12/14/20 09:00 Resp 18 12/14/20 09:00 BP 117/81 12/14/20 09:00 Pulse Ox 96 12/14/20 09:00 Oxygen Flow Rate 0 12/13/20 17:10 Body Mass Index 24.9 Const General: cooperative, comfortable and no acute distress Orientation/consciousness: patient oriented x3 HENMT Other: Unremarkable Neck Neck: Yes normal visual inspection Chest Chest palpation & inspection: normal inspection of the chest Resp Auscultation: clear to auscultation bilaterally, no crackles and no wheezes Cardio Jugular venous distension: no JVD Palpation: normal PMI Heart sounds: S1 normal heart sound present, S2 normal heart sound present, no gallops, Murmur heart sound present systolic II/ and at the right sternal border and no rubs GI Palpation (GI): Soft to palpation Back/Spine/Pelvis Other: unremarkable Skin General skin exam: no rashes or lesions noted Neuro General: patient oriented x3 Extrem General: Yes no clubbing, cyanosis or edema Psych Mental Status: mental status grossly normal Results Labs and Meds Result diagrams: 12/14/20 05:27 12/14/20 05:28 Lab results: Laboratory Results - last 24 hr 12/13/20 12/13/20 12/13/20 07:17 07:17 07:17 WBC RBC Hgb Hct MCV MCH MCHC RDW Plt Count MPV Immature Gran % (Auto) Neut % (Auto) Lymph % (Auto) [place] % (Auto) Eos % (Auto) Baso % (Auto) Lymph # (Auto) [place] # (Auto) Eos # (Auto) Baso # (Auto) Abs Immat Gran (auto) Absolute Neuts (auto) Absolute Nucleated RBC Nucleated RBC % (auto) Plt Morphology Comment Not Reportable PTT (Heparin Protocol) O2 Saturation ABG pH at Pt Temp ABG pH (Temp Correct) ABG pCO2 at Pt Temp ABG pCO2 (Temp Corrct ABG pO2 at Pt Temp ABG pO2 (Temp Correct ABG HCO3 ABG Base Excess (Actual) VBG pH VBG pCO2 VBG pO2 VBG HCO3 VBG O2 Saturation VBG Base Excess Sodium Potassium Chloride Carbon Dioxide Anion Gap BUN Creatinine Estim Creat Clear Calc Estimated GFR POC Glucose Random Glucose Fasting Glucose Lactic Acid Calcium Phosphorus 13.6 H Total Bilirubin AST ALT Alkaline Phosphatase Troponin I High Sens Total Protein Albumin Hep Bs Antigen Negative Hep Bs Antibody NONREACTIVE Hep B Core Total Ab Nonreactive Blood Type Antibody Screen Crossmatch 12/13/20 12/13/20 12/13/20 10:55 13:54 15:33 WBC RBC Hgb Hct MCV MCH MCHC RDW Plt Count MPV Immature Gran % (Auto) Neut % (Auto) Lymph % (Auto) [place] % (Auto) Eos % (Auto) Baso % (Auto) Lymph # (Auto) [place] # (Auto) Eos # (Auto) Baso # (Auto) Abs Immat Gran (auto) Absolute Neuts (auto) Absolute Nucleated RBC Nucleated RBC % (auto) Plt Morphology Comment PTT (Heparin Protocol) O2 Saturation ABG pH at Pt Temp ABG pH (Temp Correct) ABG pCO2 at Pt Temp ABG pCO2 (Temp Corrct ABG pO2 at Pt Temp ABG pO2 (Temp Correct ABG HCO3 ABG Base Excess (Actual) VBG pH VBG pCO2 VBG pO2 VBG HCO3 VBG O2 Saturation VBG Base Excess Sodium 126 L Potassium 6.4 H* Chloride 101 Carbon Dioxide 7 L* D Anion Gap 24 H BUN 136 H* Creatinine 8.83 H* Estim Creat Clear Calc 4.9 Estimated GFR 4 POC Glucose 96 Random Glucose Fasting Glucose 97 Lactic Acid Calcium 6.5 L D Phosphorus Total Bilirubin 0.4 AST 13 ALT 14 Alkaline Phosphatase 53 D Troponin I High Sens 1709.6 H Total Protein 6.4 L Albumin 3.1 L Hep Bs Antigen Hep Bs Antibody Hep B Core Total Ab Blood Type Antibody Screen Crossmatch 12/13/20 12/13/20 12/13/20 17:20 19:12 19:33 WBC RBC Hgb Hct MCV MCH MCHC RDW Plt Count MPV Immature Gran % (Auto) Neut % (Auto) Lymph % (Auto) [place] % (Auto) Eos % (Auto) Baso % (Auto) Lymph # (Auto) [place] # (Auto) Eos # (Auto) Baso # (Auto) Abs Immat Gran (auto) Absolute Neuts (auto) Absolute Nucleated RBC Nucleated RBC % (auto) Plt Morphology Comment PTT (Heparin Protocol) 72.8 O2 Saturation ABG pH at Pt Temp ABG pH (Temp Correct) ABG pCO2 at Pt Temp ABG pCO2 (Temp Corrct ABG pO2 at Pt Temp ABG pO2 (Temp Correct ABG HCO3 ABG Base Excess (Actual) VBG pH VBG pCO2 VBG pO2 VBG HCO3 VBG O2 Saturation VBG Base Excess Sodium Potassium Chloride Carbon Dioxide Anion Gap BUN Creatinine Estim Creat Clear Calc Estimated GFR POC Glucose 121 H Random Glucose Fasting Glucose Lactic Acid 0.4 L Calcium Phosphorus Total Bilirubin AST ALT Alkaline Phosphatase Troponin I High Sens Total Protein Albumin Hep Bs Antigen Hep Bs Antibody Hep B Core Total Ab Blood Type Antibody Screen Crossmatch 12/13/20 12/13/20 12/14/20 19:33 22:08 01:17 WBC RBC Hgb Hct MCV MCH MCHC RDW Plt Count MPV Immature Gran % (Auto) Neut % (Auto) Lymph % (Auto) [place] % (Auto) Eos % (Auto) Baso % (Auto) Lymph # (Auto) [place] # (Auto) Eos # (Auto) Baso # (Auto) Abs Immat Gran (auto) Absolute Neuts (auto) Absolute Nucleated RBC Nucleated RBC % (auto) Plt Morphology Comment PTT (Heparin Protocol) 50.4 L D O2 Saturation 95.0 ABG pH at Pt Temp 7.00 L* ABG pH (Temp Correct) 7.02 L* ABG pCO2 at Pt Temp 22 L ABG pCO2 (Temp Corrct 20 L* ABG pO2 at Pt Temp 100 ABG pO2 (Temp Correct 88 ABG HCO3 6 L ABG Base Excess (Actual) -23.5 VBG pH VBG pCO2 VBG pO2 VBG HCO3 VBG O2 Saturation VBG Base Excess Sodium 130 L Potassium 6.4 H* Chloride 103 Carbon Dioxide 8 L* Anion Gap 25 H BUN 151 H* Creatinine 9.86 H* Estim Creat Clear Calc 4.4 Estimated GFR 4 POC Glucose Random Glucose 128 H Fasting Glucose Lactic Acid Calcium 6.7 L Phosphorus Total Bilirubin 0.4 AST 13 ALT 16 Alkaline Phosphatase 59 Troponin I High Sens Total Protein 6.7 Albumin 3.6 Hep Bs Antigen Hep Bs Antibody Hep B Core Total Ab Blood Type Antibody Screen Crossmatch 12/14/20 12/14/20 12/14/20 05:26 05:27 05:28 WBC 11.4 H RBC 2.39 L Hgb 7.2 L Hct 20.4 L* MCV 85.4 D MCH 30.1 MCHC 35.3 H RDW 13.2 Plt Count 174 D MPV 10.4 Immature Gran % (Auto) 2.6 H Neut % (Auto) 79.1 H Lymph % (Auto) 8.1 L [place] % (Auto) 10.0 Eos % (Auto) 0.0 Baso % (Auto) 0.2 Lymph # (Auto) 0.9 L [place] # (Auto) 1.1 Eos # (Auto) 0.0 Baso # (Auto) 0.0 Abs Immat Gran (auto) 0.30 H Absolute Neuts (auto) 9.0 H Absolute Nucleated RBC 0.070 H Nucleated RBC % (auto) 0.6 H Plt Morphology Comment PTT (Heparin Protocol) O2 Saturation ABG pH at Pt Temp ABG pH (Temp Correct) ABG pCO2 at Pt Temp ABG pCO2 (Temp Corrct ABG pO2 at Pt Temp ABG pO2 (Temp Correct ABG HCO3 ABG Base Excess (Actual) VBG pH 7.48 H VBG pCO2 27 VBG pO2 62 VBG HCO3 20 L VBG O2 Saturation 91.0 VBG Base Excess -1.9 Sodium 140 Potassium 3.4 D Chloride 101 Carbon Dioxide 21 L Anion Gap 21 H BUN 91 H* D Creatinine 6.19 H* Estim Creat Clear Calc 7.1 Estimated GFR 7 POC Glucose Random Glucose 95 Fasting Glucose Lactic Acid Calcium 7.1 L Phosphorus 9.1 H Total Bilirubin 0.4 AST 12 ALT 12 Alkaline Phosphatase 50 Troponin I High Sens Total Protein 6.0 L Albumin 3.1 L Hep Bs Antigen Hep Bs Antibody Hep B Core Total Ab Blood Type Antibody Screen Crossmatch 12/14/20 12/14/20 12/14/20 05:28 07:46 08:21 WBC RBC Hgb Hct MCV MCH MCHC RDW Plt Count MPV Immature Gran % (Auto) Neut % (Auto) Lymph % (Auto) [place] % (Auto) Eos % (Auto) Baso % (Auto) Lymph # (Auto) [place] # (Auto) Eos # (Auto) Baso # (Auto) Abs Immat Gran (auto) Absolute Neuts (auto) Absolute Nucleated RBC Nucleated RBC % (auto) Plt Morphology Comment PTT (Heparin Protocol) 88.5 H D O2 Saturation ABG pH at Pt Temp ABG pH (Temp Correct) ABG pCO2 at Pt Temp ABG pCO2 (Temp Corrct ABG pO2 at Pt Temp ABG pO2 (Temp Correct ABG HCO3 ABG Base Excess (Actual) VBG pH VBG pCO2 VBG pO2 VBG HCO3 VBG O2 Saturation VBG Base Excess Sodium Potassium Chloride Carbon Dioxide Anion Gap BUN Creatinine Estim Creat Clear Calc Estimated GFR POC Glucose Random Glucose Fasting Glucose Lactic Acid Calcium Phosphorus Total Bilirubin AST ALT Alkaline Phosphatase Troponin I High Sens 3157.2 H D Total Protein Albumin Hep Bs Antigen Hep Bs Antibody Hep B Core Total Ab Blood Type B Positive Antibody Screen NEGATIVE Crossmatch See Detail Imaging Radiologist's impression: Impressions Pulmonary Perfusion Imaging 12/13/20 08:42 IMPRESSION: Very low probability for pulmonary embolism. Chest X-Ray 12/13/20 22:19 IMPRESSION: Right internal jugular central venous catheter terminates over the mid SVC. No pneumothorax. Persistent bronchial wall thickening with interstitial prominence. Progress Note: A&P Assessment and plan (1) NSTEMI (non-ST elevated myocardial infarction): Status: Acute (2) CKD stage 5 secondary to hypertension: Status: Acute Assessment and Plan: We can get an echocardiogram for LV function assessment, wall motion assessment as well as for any aortic valve disease as there is an aortic valve murmur. For now, keep IV heparin drip, aspirin and statins. She also has evidence of atrial fibrillation on telemetry. Obtain EKG. Will follow up. Fall Risk Details Current Medications: Current Medications Generic Name Dose Route Start Last Admin Trade Name Freq PRN Reason Stop Dose Admin Heparin Sodium (Porcine) 2,400 unit 12/13/20 12:59 12/14/20 02:01 Heparin Sodium,Porcine 5,000 Unit/Ml Vial 40 unit/kg (2400 unit) 2,400 unit IVPUSH Administration BOLUS PRN 40 unit/kg - Heparin Protocol Hydromorphone HCl 0.5 mg 12/13/20 15:58 12/14/20 02:32 Hydromorphone Hcl 0.5 Mg/0.5 Ml Syringe IVPUSH 0.5 mg Q2H PRN Administration Pain, Mild (Pain Scale 1-3) Heparin Sodium/Sodium Chloride 25,000 unit in 250 mls @ 0 mls/hr 12/13/20 13:00 12/14/20 08:10 IVCONT 12 units/kg/hr .Q0M DIMITRY 7.35 mls/hr Titration Protocol Per Protocol Furosemide 500 mg/ IV 50 mls @ 2 mls/hr 12/13/20 15:30 12/13/20 23:22 Miscellaneous Supplies IVCONT Infused .Q24H DIMITRY Infusion 20 MG/HR Dexmedetomidine HCl 400 mcg in 100 mls @ 9.185 mls/hr 12/13/20 19:00 12/14/20 06:47 Precedex IVCONT 0.4 mcg/kg/hr .[id number] DIMITRY 6.12 mls/hr Administration Protocol 0.6 MCG/KG/HR Time Spent With Patient Time: Total time spent is greater than 50% in coordination of care (as documented) at patient's floor/unit and/or counseling patient: Time with patient: less than 15 minutes
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
[2020-12-14] MEDS: Heparin Sodium,Porcine/1/2NS 25,000 UNIT/250 ML IV.SOLN 7.35 UNIT IVCONT (13:26)
[2020-12-14 14:46] LABS: PTT Heparin Drip 62.1 SEC (53-77.9)
--- NOTE | 2020-12-14 18:50 | PC.NURSE ---
S/E [id number]: A&O X 4, VAGUE AT TIMES - MENTATION IMPROVED THROUGHOUT THE DAY. CONTINUES BEING TEARFUL OCCASIONALLY. SEE CASE MANAGEMENT NOTE - NEW HCP FORM FILLED OUT AND PLACED IN FRONT OF CHART. AFEBRILE. VSS. AFIB WITH ST DEPRESSIONS NOTED. EKG DONE PER CARDIOLOGY. BEDSIDE ECHO DONE. BANKS OUTPUT WNL. DIALYSIS DONE THIS AFTERNOON WITH 2.8 KG REMOVED. 1 UNIT RBC TRANSFUSED - NO REACTION NOTED. BATHED, Q2HR REPO, BARRIER CREAM APPLIED, FAMILY UPDATED THROUGHOUT SHIFT.
[2020-12-14 20:34] LABS: MANUAL DIFF FLAG NO
[2020-12-14 20:35] LABS: Basophils Percent Auto 0.2 % (0-2); Hematocrit 27.8 % (37-47); Hemoglobin 9.5 g/dl (12.0-16.0); Imm Gran Abs Auto 0.31 X10*3/uL (0.00-0.03); Imm Gran Pct Auto 2.3 % (0.0-0.4); Lymphocytes Absolute Auto 0.9 X10*3/uL (1.2-4.9); Lymphocytes Percent Auto 6.4 % (20-40); Mean Corpuscular HGB Conc 34.2 g/dl (31.0-35.0); Mean Corpuscular Hemoglobin 29.6 pg (27.0-33.0); Mean Corpuscular Volume 86.6 fL (80-98); Mean Platelet Volume 10.1 fL (9.4-12.3); Monocytes Absolute Auto 1.4 X10*3/uL (0.1-1.2); Monocytes Percent Auto 10.2 % (2-11); NRBC Pct Auto 0.5 /100WBC (0.0-0.2); Neutrophils Absolute Auto 10.7 X10*3/uL (2.0-8.3); Neutrophils Percent Auto 80.9 % (45-73); Platelet Count 191 X10*3/uL (160-400); Red Blood Count 3.21 X10*6/uL (4.20-5.50); White Blood Count 13.3 X10*3/uL (4.8-10.8)
[2020-12-14 20:47] LABS: PTT Heparin Drip 50.6 SEC (53-77.9)
--- NOTE | 2020-12-14 20:49 | PC.NURSE ---
Late entry 12/13 1900- 12/14 0700: Patient initially agitated/disoriented, constantly climbing oob, difficult to redirect, thrashing about, yelling. Precedex gtt and bilat ue soft limb restraints to facilitate hd cath insertion with good effect. Patient went into nonsustained vtach x2 (approx 30 seconds each occurrence) prior to hd. Patient tolerated hd well. 2 kg removed. Initially sr/sb with significant st depression with peaked t waves. Rhythm change to afib/flutter during hd. frequent pac's. rate up to 120's with agitation. Initially no uop, started making small amounts of urine towards morning. 60 cc total. No stool. Skin intact.
[2020-12-14 21:14] LABS: Anion Gap 17 (12-20); Blood Urea Nitrogen 35 mg/dL (9-16); Calcium 7.5 mg/dL (8.4-10.2); Carbon Dioxide 18 mmol/L (22-29); Chloride 104 mmol/L (96-108); Creatinine Clr Calc Pharmacy 14.8; Estimated Glomerular Filt Rate 14; Glucose Random 94 mg/dL (60-115); Potassium 3.8 mmol/L (3.3-5.1); Sodium 135 mmol/L (135-145)
[2020-12-15] VITALS (20 sets, daily range): BP systolic 107–153; BP diastolic 61–93; PULSE 69–97; RESP 15–21; TEMP 36.6–38.2; O2SAT 91–100; BMI 23.8
[2020-12-15 00:20] LABS: Glucose Urine UA NEG (NEG); Leukocyte Esterase Urine TRACE (NEG); Nitrite Urine NEG (NEG); PH 5.5 (5.0-8.0); UACC Culture Trigger YES; Urine Blood 3+ (NEG); Urine Ketones NEG (NEG); Urine Protein 3+ MG/DL (NEG-TRACE)
[2020-12-15 00:25] LABS: Appearance Urine HAZY; Color Urine YELLOW
[2020-12-15 00:35] LABS: Amorphous Sediment Urine TRACE /LPF; Renal Epithelial Cells Urine TRACE /LPF; Squamous Epithelial Cell Urine TRACE /LPF; Waxy Casts Urine 0-2 /LPF
[2020-12-15] MEDS: dexmedeTOMIDidine HCL/NS 400 MCG/100 ML INFUS..BTL 12.25 MCG IVCONT (00:41)
[2020-12-15 03:15] LABS: PTT Heparin Drip 57.6 SEC (53-77.9)
[2020-12-15 05:34] LABS: VBG Base Excess -6.5 mmol/L; VBG HCO3 16 mmol/L (22-26); VBG pCO2 26 mmHg; VBG pO2 57 mmHg
[2020-12-15 05:36] LABS: Venous Blood Gas Refer to POC result
[2020-12-15 05:38] LABS: MANUAL DIFF FLAG NO
[2020-12-15 05:46] LABS: Basophils Percent Auto 0.1 % (0-2); Hematocrit 26.6 % (37-47); Hemoglobin 8.9 g/dl (12.0-16.0); Imm Gran Pct Auto 1.8 % (0.0-0.4); Lymphocytes Percent Auto 8.6 % (20-40); Mean Corpuscular HGB Conc 33.5 g/dl (31.0-35.0); Mean Corpuscular Hemoglobin 29.8 pg (27.0-33.0); Mean Platelet Volume 10.3 fL (9.4-12.3); Monocytes Absolute Auto 1.4 X10*3/uL (0.1-1.2); Monocytes Percent Auto 12.5 % (2-11); NRBC Pct Auto 0.4 /100WBC (0.0-0.2); Neutrophils Absolute Auto 8.7 X10*3/uL (2.0-8.3); Platelet Count 175 X10*3/uL (160-400); Red Blood Count 2.99 X10*6/uL (4.20-5.50); Red Cell Distribution Width 14.4 % (11.0-16.0); White Blood Count 11.3 X10*3/uL (4.8-10.8)
[2020-12-15 05:53] LABS: Prothrombin Time 12.4 SEC (10.8-13.0)
[2020-12-15 06:06] LABS: Partial Thromboplastin Time 51.3 SEC (24.1-38.0)
[2020-12-15 06:12] LABS: B Type Natriuretic Peptide 1906 pg/mL (<100)
--- NOTE | 2020-12-15 06:14 | PC.NURSE ---
Hartman removed 0500 for patient comfort. Hartman had been leaking and patient was experiencing pain/burning. Educated commercial litigation paralegal guillermo usage and fall risk. DTV at 1100.
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
[2020-12-15 06:38] LABS: Alanine Aminotransferase 12 U/L (0-31); Albumin Level 3.2 g/dL (3.5-5.0); Alkaline Phosphatase 56 U/L (39-117); Anion Gap 16 (12-20); Aspartate Amino Transferase 11 U/L (5-31); Bilirubin Direct 0.2 mg/dL (0.0-0.5); Bilirubin Total 0.4 mg/dL (0.0-1.0); Blood Urea Nitrogen 48 mg/dL (9-16); Calcium 7.1 mg/dL (8.4-10.2); Carbon Dioxide 18 mmol/L (22-29); Chloride 106 mmol/L (96-108); Glucose Random 97 mg/dL (60-115); Magnesium 2.1 mg/dL (1.6-2.6); Phosphorus 6.5 mg/dL (2.7-4.5); Potassium 4.2 mmol/L (3.3-5.1); Sodium 136 mmol/L (135-145); Total Protein 6.1 g/dL (6.5-8.0)
[2020-12-15 06:40] LABS: Creatinine Clr Calc Pharmacy 10.7; Estimated Glomerular Filt Rate 11
[2020-12-15] MEDS: Sodium Bicarbonate 650 MG TABLET PO ×3 (07:49→20:40)
--- NOTE | 2020-12-15 08:42 | P.PNCC_ITS ---
Subjective Subjective Date of Service: 12/15/20 Interval History: 70-year-old hypertensive female feeling poorly firs for a number of weeks including congestion for which she was on again and off again a number of antibiotics and also recently had Lasix started and apparently prednisone continue to get worse came in in pulmonary edema with acute on chronic stage 5 renal failure and virtually an uric she was also encephalopathic and hyperkalemic as additional complications with profound positive anion gap metabolic acidosis and temporary dialysis catheter was placed and 2 dialysis giorgio atments later she has a learned at with resolved encephalopathy compensated pH of 7.4 with continued negative base excess of over 6 which of course is a primary bicarb deficit from renal failure and pulmonary edema is resolved and she was also significantly anemic and current hemoglobin 8.9 status post 1 unit of red blood cell transfusion Today will be the 1st day of no dialysis and just observation and if urinary volume improves and BUN and creatinine at least plateau she might avoid permanent dialysis but if not then she will need a tunneled catheter to begin outpatient dialysis Physical Exam Vital Signs: Vital Signs: Last Vital Signs Temp 98.4 F 12/15/20 08:00 Pulse 80 12/15/20 08:00 Resp 18 12/15/20 08:00 BP 114/87 12/15/20 08:00 Pulse Ox 97 12/15/20 08:00 Oxygen Flow Rate 0 12/13/20 17:10 Body Mass Index 23.8 Const: Other: Awake alert oriented with blood pressure 114/87 and she is also new onset of atrial flutter with controlled rate anywhere between 75 and 105 No neck vein distension and carotid upstrokes are mildly reduced which goes along with a somewhat diminished stroke work reserve and my bedside echo reveals moderate diffuse hypokinesis of the left ventricle with 45% ejection fraction Chest with no adventitious sounds Abdomen benign and soft with no organomegaly Skin intact with no livedo no acrocyanosis and no edema Objective Data Labs CBC & Chem 7: 12/15/20 05:27 12/15/20 05:27 Labs: Laboratory Results - last 24 hr 12/13/20 12/14/20 12/14/20 07:17 08:21 14:28 WBC RBC Hgb Hct MCV MCH MCHC RDW Plt Count MPV Immature Gran % (Auto) Neut % (Auto) Lymph % (Auto) [place] % (Auto) Eos % (Auto) Baso % (Auto) Lymph # (Auto) [place] # (Auto) Eos # (Auto) Baso # (Auto) Abs Immat Gran (auto) Absolute Neuts (auto) Absolute Nucleated RBC Nucleated RBC % (auto) Smear Path Review SEE NOTE PT INR APTT PTT (Heparin Protocol) 62.1 D VBG pH VBG pCO2 VBG pO2 VBG HCO3 VBG O2 Saturation VBG Base Excess Sodium Potassium Chloride Carbon Dioxide Anion Gap BUN Creatinine Estim Creat Clear Calc Estimated GFR Random Glucose Calcium Phosphorus Magnesium Total Bilirubin Direct Bilirubin AST ALT Alkaline Phosphatase Troponin I High Sens B-Natriuretic Peptide Total Protein Albumin Urine Color Urine Appearance Urine pH Ur Specific [place] Urine Protein Urine Glucose (UA) Urine Ketones Urine Blood Urine Nitrite Ur Leukocyte Esterase Urine RBC Urine WBC Ur Squamous Epith Cells Ur Renal Epithelial Cell Amorphous Sediment Urine Bacteria Granular Casts Waxy Casts Blood Type B Positive Antibody Screen NEGATIVE Crossmatch See Detail 12/14/20 12/14/20 12/14/20 20:27 20:27 20:27 WBC 13.3 H RBC 3.21 L D Hgb 9.5 L D Hct 27.8 L D MCV 86.6 MCH 29.6 MCHC 34.2 RDW 14.0 Plt Count 191 MPV 10.1 Immature Gran % (Auto) 2.3 H Neut % (Auto) 80.9 H Lymph % (Auto) 6.4 L [place] % (Auto) 10.2 Eos % (Auto) 0.0 Baso % (Auto) 0.2 Lymph # (Auto) 0.9 L [place] # (Auto) 1.4 H Eos # (Auto) 0.0 Baso # (Auto) 0.0 Abs Immat Gran (auto) 0.31 H Absolute Neuts (auto) 10.7 H Absolute Nucleated RBC 0.070 H Nucleated RBC % (auto) 0.5 H Smear Path Review PT INR APTT PTT (Heparin Protocol) 50.6 L VBG pH VBG pCO2 VBG pO2 VBG HCO3 VBG O2 Saturation VBG Base Excess Sodium 135 Potassium 3.8 Chloride 104 Carbon Dioxide 18 L Anion Gap 17 BUN 35 H D Creatinine 3.21 H Estim Creat Clear Calc 14.8 Estimated GFR 14 Random Glucose 94 Calcium 7.5 L Phosphorus Magnesium Total Bilirubin Direct Bilirubin AST ALT Alkaline Phosphatase Troponin I High Sens B-Natriuretic Peptide Total Protein Albumin Urine Color Urine Appearance Urine pH Ur Specific [place] Urine Protein Urine Glucose (UA) Urine Ketones Urine Blood Urine Nitrite Ur Leukocyte Esterase Urine RBC Urine WBC Ur Squamous Epith Cells Ur Renal Epithelial Cell Amorphous Sediment Urine Bacteria Granular Casts Waxy Casts Blood Type Antibody Screen Crossmatch 12/14/20 12/14/20 12/15/20 20:27 23:58 02:58 WBC RBC Hgb Hct MCV MCH MCHC RDW Plt Count MPV Immature Gran % (Auto) Neut % (Auto) Lymph % (Auto) [place] % (Auto) Eos % (Auto) Baso % (Auto) Lymph # (Auto) [place] # (Auto) Eos # (Auto) Baso # (Auto) Abs Immat Gran (auto) Absolute Neuts (auto) Absolute Nucleated RBC Nucleated RBC % (auto) Smear Path Review PT INR APTT PTT (Heparin Protocol) 57.6 VBG pH VBG pCO2 VBG pO2 VBG HCO3 VBG O2 Saturation VBG Base Excess Sodium Potassium Chloride Carbon Dioxide Anion Gap BUN Creatinine Estim Creat Clear Calc Estimated GFR Random Glucose Calcium Phosphorus Magnesium Total Bilirubin Direct Bilirubin AST ALT Alkaline Phosphatase Troponin I High Sens 3496.1 H B-Natriuretic Peptide Total Protein Albumin Urine Color YELLOW Urine Appearance HAZY Urine pH 5.5 Ur Specific [place] 1.020 Urine Protein 3+ H Urine Glucose (UA) NEG Urine Ketones NEG Urine Blood 3+ H Urine Nitrite NEG Ur Leukocyte Esterase TRACE H Urine RBC 76-150 H Urine WBC 15-29 H Ur Squamous Epith Cells TRACE Ur Renal Epithelial Cell TRACE Amorphous Sediment TRACE Urine Bacteria NONE Granular Casts 1-4 Waxy Casts 0-2 Blood Type Antibody Screen Crossmatch 12/15/20 12/15/20 12/15/20 05:27 05:27 05:27 WBC 11.3 H RBC 2.99 L Hgb 8.9 L Hct 26.6 L MCV 89.0 MCH 29.8 MCHC 33.5 RDW 14.4 Plt Count 175 MPV 10.3 Immature Gran % (Auto) 1.8 H Neut % (Auto) 77.0 H Lymph % (Auto) 8.6 L [place] % (Auto) 12.5 H Eos % (Auto) 0.0 Baso % (Auto) 0.1 Lymph # (Auto) 1.0 L [place] # (Auto) 1.4 H Eos # (Auto) 0.0 Baso # (Auto) 0.0 Abs Immat Gran (auto) 0.20 H Absolute Neuts (auto) 8.7 H Absolute Nucleated RBC 0.040 H Nucleated RBC % (auto) 0.4 H Smear Path Review PT 12.4 INR 1.0 APTT 51.3 H D PTT (Heparin Protocol) VBG pH VBG pCO2 VBG pO2 VBG HCO3 VBG O2 Saturation VBG Base Excess Sodium Potassium Chloride Carbon Dioxide Anion Gap BUN Creatinine Estim Creat Clear Calc Estimated GFR Random Glucose Calcium Phosphorus Magnesium Total Bilirubin Direct Bilirubin AST ALT Alkaline Phosphatase Troponin I High Sens 3430.7 H B-Natriuretic Peptide Total Protein Albumin Urine Color Urine Appearance Urine pH Ur Specific [place] Urine Protein Urine Glucose (UA) Urine Ketones Urine Blood Urine Nitrite Ur Leukocyte Esterase Urine RBC Urine WBC Ur Squamous Epith Cells Ur Renal Epithelial Cell Amorphous Sediment Urine Bacteria Granular Casts Waxy Casts Blood Type Antibody Screen Crossmatch 12/15/20 12/15/20 12/15/20 05:27 05:27 05:28 WBC RBC Hgb Hct MCV MCH MCHC RDW Plt Count MPV Immature Gran % (Auto) Neut % (Auto) Lymph % (Auto) [place] % (Auto) Eos % (Auto) Baso % (Auto) Lymph # (Auto) [place] # (Auto) Eos # (Auto) Baso # (Auto) Abs Immat Gran (auto) Absolute Neuts (auto) Absolute Nucleated RBC Nucleated RBC % (auto) Smear Path Review PT INR APTT PTT (Heparin Protocol) VBG pH 7.40 VBG pCO2 26 VBG pO2 57 VBG HCO3 16 L VBG O2 Saturation 87.0 VBG Base Excess -6.5 Sodium 136 Potassium 4.2 Chloride 106 Carbon Dioxide 18 L Anion Gap 16 BUN 48 H Creatinine 4.08 H* Estim Creat Clear Calc 10.7 Estimated GFR 11 Random Glucose 97 Calcium 7.1 L Phosphorus 6.5 H Magnesium 2.1 Total Bilirubin 0.4 Direct Bilirubin 0.2 AST 11 ALT 12 Alkaline Phosphatase 56 Troponin I High Sens B-Natriuretic Peptide 1906 H Total Protein 6.1 L Albumin 3.2 L Urine Color Urine Appearance Urine pH Ur Specific [place] Urine Protein Urine Glucose (UA) Urine Ketones Urine Blood Urine Nitrite Ur Leukocyte Esterase Urine RBC Urine WBC Ur Squamous Epith Cells Ur Renal Epithelial Cell Amorphous Sediment Urine Bacteria Granular Casts Waxy Casts Blood Type Antibody Screen Crossmatch Microbiology Microbiology Results: Microbiology 12/13/20 07:15 Blood - Venous Blood Culture - Preliminary No growth after 24 hours. 12/13/20 07:20 Blood - Venous Blood Culture - Preliminary No growth after 24 hours. Progress Note: A&P Assessment and plan (1) Anemia: Problem details: consider iron studies, hemolytic work up, b12, folate. Will assess possible procrit pending results but in setting of NSTEMI no pugh Status: Acute (2) Atrial flutter with controlled response: Status: Acute Assessment and Plan: New onset atrial flutter with nonspecific ST-T ease and initially a rising troponin level despite its lack of specificity in renal failure could imply that she had an ischemic event but I think more likely this is uremia superimposed on hypertensive myocardial disease now in the process of resolving with fluid removal as well as uremia resolution from dialysis For now I would continue anticoagulation possibly switch over to a oral anticoagulant and because she presented initially in normal sinus rhythm at some point conversion back to normal sinus rhythm is feasible but watch closely for indications for catheterization (3) Interstitial nephritis, acute: Status: Acute (4) Acute pulmonary edema with congestive heart failure: Status: Acute (5) Acute on chronic kidney failure: Status: Acute (6) Non-ST elevation CA (NSTEMI): Status: Acute (7) Acute hyperkalemia: Status: Acute (8) NSTEMI (non-ST elevated myocardial infarction): Status: Acute (9) Hyperkalemia: Problem details: sec to VIVIANA inability to secrete K Status: Acute (10) Acidosis: Problem details: sec to VIVIANA inability to excrete acid Status: Acute (11) CKD stage 5 secondary to hypertension: Status: Acute (12) Acute renal disease: Problem details: sec to ATN likely ischemic vs septic unclear yet if Acute coronary syndrome playing a role. May have progressed to ESRD next days will tell Dialysis today, can add lasix 80 mg q8h if volume otherwise dictates Status: Acute (13) Asthmatic bronchitis: Status: Acute (14) DVT (deep venous thrombosis): Status: Acute Assessment and Plan: So observe for possible requirement for a tunneled permanent catheter if she is unable to maintain her own filtration capability and she will probably need for the myopathy to be started on either an JOAQUINA-inhibitor or ARB and also down the line consideration after potentially 3 weeks of anticoagulation for conversion back to normal sinus rhythm Needs both renal and cardiac follow-up
--- NOTE | 2020-12-15 09:28 | P.PNNP_ITS ---
Subjective Subjective Date of Service: 12/15/20 Interval history: dialysis treatment number 2 yesterday feeling much better, less emotionally labile. Remains alert and oriented fully. Heparin gtt in afib for last 36h or so. Minimal UOP. No cp or sob with resolution of edema. Physical Exam Vital Signs: Vital Signs: Last Vital Signs Temp 98.4 F 12/15/20 08:00 Pulse 85 12/15/20 09:00 Resp 16 12/15/20 09:00 BP 120/93 H 12/15/20 09:00 Pulse Ox 96 12/15/20 09:00 Oxygen Flow Rate 0 12/13/20 17:10 Body Mass Index 23.8 Const: General: cooperative, comfortable and no acute distress HENMT: Head: Yes normal to inspection Eyes: General: appearance normal, both eyes and all related structures Neck: Neck: Yes normal visual inspection and Yes JVD (6-8 cm) Chest: Chest palpation & inspection: normal inspection of the chest Resp: Effort & Inspection: normal respiratory effort Auscultation: diminished lung sounds Cardio: Rhythm: abnormal rhythm Heart sounds: S1 normal heart sound present and S2 normal heart sound present GI: Inspection: Yes normal to inspection : General: Yes no CVA tenderness Back/Spine/Pelvis: Back: no CVA tenderness Skin: General skin exam: no rashes or lesions noted Neuro: Other: no asterixis Psych: Appearance: grossly normal Objective Data Labs CBC & Chem 7: 12/15/20 05:27 12/15/20 05:27 Labs: Laboratory Results - last 24 hr 12/13/20 12/14/20 12/14/20 07:17 08:21 14:28 WBC RBC Hgb Hct MCV MCH MCHC RDW Plt Count MPV Immature Gran % (Auto) Neut % (Auto) Lymph % (Auto) [place] % (Auto) Eos % (Auto) Baso % (Auto) Lymph # (Auto) [place] # (Auto) Eos # (Auto) Baso # (Auto) Abs Immat Gran (auto) Absolute Neuts (auto) Absolute Nucleated RBC Nucleated RBC % (auto) Smear Path Review SEE NOTE PT INR APTT PTT (Heparin Protocol) 62.1 D VBG pH VBG pCO2 VBG pO2 VBG HCO3 VBG O2 Saturation VBG Base Excess Sodium Potassium Chloride Carbon Dioxide Anion Gap BUN Creatinine Estim Creat Clear Calc Estimated GFR Random Glucose Calcium Phosphorus Magnesium Total Bilirubin Direct Bilirubin AST ALT Alkaline Phosphatase Troponin I High Sens B-Natriuretic Peptide Total Protein Albumin Urine Color Urine Appearance Urine pH Ur Specific [place] Urine Protein Urine Glucose (UA) Urine Ketones Urine Blood Urine Nitrite Ur Leukocyte Esterase Urine RBC Urine WBC Ur Squamous Epith Cells Ur Renal Epithelial Cell Amorphous Sediment Urine Bacteria Granular Casts Waxy Casts Blood Type B Positive Antibody Screen NEGATIVE Crossmatch See Detail 12/14/20 12/14/20 12/14/20 20:27 20:27 20:27 WBC 13.3 H RBC 3.21 L D Hgb 9.5 L D Hct 27.8 L D MCV 86.6 MCH 29.6 MCHC 34.2 RDW 14.0 Plt Count 191 MPV 10.1 Immature Gran % (Auto) 2.3 H Neut % (Auto) 80.9 H Lymph % (Auto) 6.4 L [place] % (Auto) 10.2 Eos % (Auto) 0.0 Baso % (Auto) 0.2 Lymph # (Auto) 0.9 L [place] # (Auto) 1.4 H Eos # (Auto) 0.0 Baso # (Auto) 0.0 Abs Immat Gran (auto) 0.31 H Absolute Neuts (auto) 10.7 H Absolute Nucleated RBC 0.070 H Nucleated RBC % (auto) 0.5 H Smear Path Review PT INR APTT PTT (Heparin Protocol) 50.6 L VBG pH VBG pCO2 VBG pO2 VBG HCO3 VBG O2 Saturation VBG Base Excess Sodium 135 Potassium 3.8 Chloride 104 Carbon Dioxide 18 L Anion Gap 17 BUN 35 H D Creatinine 3.21 H Estim Creat Clear Calc 14.8 Estimated GFR 14 Random Glucose 94 Calcium 7.5 L Phosphorus Magnesium Total Bilirubin Direct Bilirubin AST ALT Alkaline Phosphatase Troponin I High Sens B-Natriuretic Peptide Total Protein Albumin Urine Color Urine Appearance Urine pH Ur Specific [place] Urine Protein Urine Glucose (UA) Urine Ketones Urine Blood Urine Nitrite Ur Leukocyte Esterase Urine RBC Urine WBC Ur Squamous Epith Cells Ur Renal Epithelial Cell Amorphous Sediment Urine Bacteria Granular Casts Waxy Casts Blood Type Antibody Screen Crossmatch 12/14/20 12/14/20 12/15/20 20:27 23:58 02:58 WBC RBC Hgb Hct MCV MCH MCHC RDW Plt Count MPV Immature Gran % (Auto) Neut % (Auto) Lymph % (Auto) [place] % (Auto) Eos % (Auto) Baso % (Auto) Lymph # (Auto) [place] # (Auto) Eos # (Auto) Baso # (Auto) Abs Immat Gran (auto) Absolute Neuts (auto) Absolute Nucleated RBC Nucleated RBC % (auto) Smear Path Review PT INR APTT PTT (Heparin Protocol) 57.6 VBG pH VBG pCO2 VBG pO2 VBG HCO3 VBG O2 Saturation VBG Base Excess Sodium Potassium Chloride Carbon Dioxide Anion Gap BUN Creatinine Estim Creat Clear Calc Estimated GFR Random Glucose Calcium Phosphorus Magnesium Total Bilirubin Direct Bilirubin AST ALT Alkaline Phosphatase Troponin I High Sens 3496.1 H B-Natriuretic Peptide Total Protein Albumin Urine Color YELLOW Urine Appearance HAZY Urine pH 5.5 Ur Specific [place] 1.020 Urine Protein 3+ H Urine Glucose (UA) NEG Urine Ketones NEG Urine Blood 3+ H Urine Nitrite NEG Ur Leukocyte Esterase TRACE H Urine RBC 76-150 H Urine WBC 15-29 H Ur Squamous Epith Cells TRACE Ur Renal Epithelial Cell TRACE Amorphous Sediment TRACE Urine Bacteria NONE Granular Casts 1-4 Waxy Casts 0-2 Blood Type Antibody Screen Crossmatch 12/15/20 12/15/20 12/15/20 05:27 05:27 05:27 WBC 11.3 H RBC 2.99 L Hgb 8.9 L Hct 26.6 L MCV 89.0 MCH 29.8 MCHC 33.5 RDW 14.4 Plt Count 175 MPV 10.3 Immature Gran % (Auto) 1.8 H Neut % (Auto) 77.0 H Lymph % (Auto) 8.6 L [place] % (Auto) 12.5 H Eos % (Auto) 0.0 Baso % (Auto) 0.1 Lymph # (Auto) 1.0 L [place] # (Auto) 1.4 H Eos # (Auto) 0.0 Baso # (Auto) 0.0 Abs Immat Gran (auto) 0.20 H Absolute Neuts (auto) 8.7 H Absolute Nucleated RBC 0.040 H Nucleated RBC % (auto) 0.4 H Smear Path Review PT 12.4 INR 1.0 APTT 51.3 H D PTT (Heparin Protocol) VBG pH VBG pCO2 VBG pO2 VBG HCO3 VBG O2 Saturation VBG Base Excess Sodium Potassium Chloride Carbon Dioxide Anion Gap BUN Creatinine Estim Creat Clear Calc Estimated GFR Random Glucose Calcium Phosphorus Magnesium Total Bilirubin Direct Bilirubin AST ALT Alkaline Phosphatase Troponin I High Sens 3430.7 H B-Natriuretic Peptide Total Protein Albumin Urine Color Urine Appearance Urine pH Ur Specific [place] Urine Protein Urine Glucose (UA) Urine Ketones Urine Blood Urine Nitrite Ur Leukocyte Esterase Urine RBC Urine WBC Ur Squamous Epith Cells Ur Renal Epithelial Cell Amorphous Sediment Urine Bacteria Granular Casts Waxy Casts Blood Type Antibody Screen Crossmatch 12/15/20 12/15/20 12/15/20 05:27 05:27 05:28 WBC RBC Hgb Hct MCV MCH MCHC RDW Plt Count MPV Immature Gran % (Auto) Neut % (Auto) Lymph % (Auto) [place] % (Auto) Eos % (Auto) Baso % (Auto) Lymph # (Auto) [place] # (Auto) Eos # (Auto) Baso # (Auto) Abs Immat Gran (auto) Absolute Neuts (auto) Absolute Nucleated RBC Nucleated RBC % (auto) Smear Path Review PT INR APTT PTT (Heparin Protocol) VBG pH 7.40 VBG pCO2 26 VBG pO2 57 VBG HCO3 16 L VBG O2 Saturation 87.0 VBG Base Excess -6.5 Sodium 136 Potassium 4.2 Chloride 106 Carbon Dioxide 18 L Anion Gap 16 BUN 48 H Creatinine 4.08 H* Estim Creat Clear Calc 10.7 Estimated GFR 11 Random Glucose 97 Calcium 7.1 L Phosphorus 6.5 H Magnesium 2.1 Total Bilirubin 0.4 Direct Bilirubin 0.2 AST 11 ALT 12 Alkaline Phosphatase 56 Troponin I High Sens B-Natriuretic Peptide 1906 H Total Protein 6.1 L Albumin 3.2 L Urine Color Urine Appearance Urine pH Ur Specific [place] Urine Protein Urine Glucose (UA) Urine Ketones Urine Blood Urine Nitrite Ur Leukocyte Esterase Urine RBC Urine WBC Ur Squamous Epith Cells Ur Renal Epithelial Cell Amorphous Sediment Urine Bacteria Granular Casts Waxy Casts Blood Type Antibody Screen Crossmatch Microbiology Microbiology Results: Microbiology 12/13/20 07:15 Blood - Venous Blood Culture - Preliminary No growth after 24 hours. 12/13/20 07:20 Blood - Venous Blood Culture - Preliminary No growth after 24 hours. Assessment & Plan Assessment and plan (1) Acute renal disease: Problem details: sec to ATN likely ischemic in setting of acute coronary syndrome and overall advanced CKD progression. May have progressed to ESRD next days will tell - minimal UOP no need for lasix right now - I'm fine with low dose coreg resumption as BP tolerates but defer to cardiology. - In setting of [place], would be ok with ACEi or ARB as well. - Anemia treatment with PRBC on 12/14. Will initiate CURTIS as outpatient and await further anemia w/u - Next dialysis tomorrow (and anticipated Monday as well). As long as remains oliguric by tomorrow am, would ask if we could arrange for tunneled dialysis catheter on - Arranging for outpatient dialysis [facility] on [address] upon discharge. Likely viewing as VIVIANA to begin with and will monitor for recovery Status: Acute (2) CKD stage 5 secondary to hypertension: Problem details: as above. Status: Acute (3) Acidosis: Problem details: sec to VIVIANA inability to excrete acid Status: Acute (4) NSTEMI (non-ST elevated myocardial infarction): Problem details: - appreciate cardiac and critical care input. she reports that she has stopped smoking for good - heparin gtt with echo pending - I would be fine with cardiac catheterization should it be felt appropriate - RAAS blockade and beta alessia recs as above Status: Acute Time Spent With Patient Time: Total time spent is greater than 50% in coordination of care (as documented) at patient's floor/unit and/or counseling patient:
[2020-12-15 09:37] LABS: PTT Heparin Drip 49.9 SEC (53-77.9)
[2020-12-15] MEDS: Heparin Sodium,Porcine 5,000 UNIT/ML VIAL 2400 UNIT IVPUSH ×2 (10:03→17:06)
--- NOTE | 2020-12-15 11:25 | PM.PNCARD ---
Subjective Subjective Date of Service: 12/15/20 Interval history: She states that she feels okay. No chest pain other cardiac symptoms. Less emotional today. Review of Systems Review of Systems Yes all other systems are reviewed and are negative Cardiovascular: Reports as per HPI, Reports no additional cardiovascular complaints, Denies acrocyanosis, Denies cool extremities, Denies painful fingertips, Denies chest pain, Denies chest pain at rest, Denies diaphoresis, Denies syncope, Denies irregular heart rhythm, Denies claudication, Denies leg edema, Denies lightheadedness, Denies palpitations and Denies dyspnea Respiratory: Denies dyspnea Denies syncope Endocrine: Denies palpitations Physical Exam Vital Signs: Last Vital Signs Temp 98.4 F 12/15/20 08:00 Pulse 91 12/15/20 11:11 Resp 18 12/15/20 11:11 BP 107/61 12/15/20 11:11 Pulse Ox 94 12/15/20 10:47 Oxygen Flow Rate 0 12/13/20 17:10 Body Mass Index 23.8 Const General: cooperative, comfortable and no acute distress Orientation/consciousness: patient oriented x3 HENMT Other: Unremarkable Neck Neck: Yes normal visual inspection Chest Chest palpation & inspection: normal inspection of the chest Resp Auscultation: clear to auscultation bilaterally, no crackles and no wheezes Cardio Jugular venous distension: no JVD Palpation: normal PMI Heart sounds: S1 normal heart sound present, S2 normal heart sound present, no gallops, Murmur heart sound present systolic II/ and at the right sternal border and no rubs GI Palpation (GI): Soft to palpation Back/Spine/Pelvis Other: unremarkable Skin General skin exam: no rashes or lesions noted Neuro General: patient oriented x3 Extrem General: Yes no clubbing, cyanosis or edema Psych Mental Status: mental status grossly normal Results Labs and Meds Result diagrams: 12/15/20 05:27 12/15/20 05:27 Lab results: Laboratory Results - last 24 hr 12/14/20 12/14/20 12/14/20 08:21 14:28 20:27 WBC RBC Hgb Hct MCV MCH MCHC RDW Plt Count MPV Immature Gran % (Auto) Neut % (Auto) Lymph % (Auto) [place] % (Auto) Eos % (Auto) Baso % (Auto) Lymph # (Auto) [place] # (Auto) Eos # (Auto) Baso # (Auto) Abs Immat Gran (auto) Absolute Neuts (auto) Absolute Nucleated RBC Nucleated RBC % (auto) PT INR APTT PTT (Heparin Protocol) 62.1 D 50.6 L VBG pH VBG pCO2 VBG pO2 VBG HCO3 VBG O2 Saturation VBG Base Excess Sodium Potassium Chloride Carbon Dioxide Anion Gap BUN Creatinine Estim Creat Clear Calc Estimated GFR Random Glucose Calcium Phosphorus Magnesium Total Bilirubin Direct Bilirubin AST ALT Alkaline Phosphatase Troponin I High Sens B-Natriuretic Peptide Total Protein Albumin Urine Color Urine Appearance Urine pH Ur Specific [place] Urine Protein Urine Glucose (UA) Urine Ketones Urine Blood Urine Nitrite Ur Leukocyte Esterase Urine RBC Urine WBC Ur Squamous Epith Cells Ur Renal Epithelial Cell Amorphous Sediment Urine Bacteria Granular Casts Waxy Casts Crossmatch See Detail 12/14/20 12/14/20 12/14/20 20:27 20:27 20:27 WBC 13.3 H RBC 3.21 L D Hgb 9.5 L D Hct 27.8 L D MCV 86.6 MCH 29.6 MCHC 34.2 RDW 14.0 Plt Count 191 MPV 10.1 Immature Gran % (Auto) 2.3 H Neut % (Auto) 80.9 H Lymph % (Auto) 6.4 L [place] % (Auto) 10.2 Eos % (Auto) 0.0 Baso % (Auto) 0.2 Lymph # (Auto) 0.9 L [place] # (Auto) 1.4 H Eos # (Auto) 0.0 Baso # (Auto) 0.0 Abs Immat Gran (auto) 0.31 H Absolute Neuts (auto) 10.7 H Absolute Nucleated RBC 0.070 H Nucleated RBC % (auto) 0.5 H PT INR APTT PTT (Heparin Protocol) VBG pH VBG pCO2 VBG pO2 VBG HCO3 VBG O2 Saturation VBG Base Excess Sodium 135 Potassium 3.8 Chloride 104 Carbon Dioxide 18 L Anion Gap 17 BUN 35 H D Creatinine 3.21 H Estim Creat Clear Calc 14.8 Estimated GFR 14 Random Glucose 94 Calcium 7.5 L Phosphorus Magnesium Total Bilirubin Direct Bilirubin AST ALT Alkaline Phosphatase Troponin I High Sens 3496.1 H B-Natriuretic Peptide Total Protein Albumin Urine Color Urine Appearance Urine pH Ur Specific [place] Urine Protein Urine Glucose (UA) Urine Ketones Urine Blood Urine Nitrite Ur Leukocyte Esterase Urine RBC Urine WBC Ur Squamous Epith Cells Ur Renal Epithelial Cell Amorphous Sediment Urine Bacteria Granular Casts Waxy Casts Crossmatch 12/14/20 12/15/20 12/15/20 23:58 02:58 05:27 WBC RBC Hgb Hct MCV MCH MCHC RDW Plt Count MPV Immature Gran % (Auto) Neut % (Auto) Lymph % (Auto) [place] % (Auto) Eos % (Auto) Baso % (Auto) Lymph # (Auto) [place] # (Auto) Eos # (Auto) Baso # (Auto) Abs Immat Gran (auto) Absolute Neuts (auto) Absolute Nucleated RBC Nucleated RBC % (auto) PT INR APTT PTT (Heparin Protocol) 57.6 VBG pH VBG pCO2 VBG pO2 VBG HCO3 VBG O2 Saturation VBG Base Excess Sodium Potassium Chloride Carbon Dioxide Anion Gap BUN Creatinine Estim Creat Clear Calc Estimated GFR Random Glucose Calcium Phosphorus Magnesium Total Bilirubin Direct Bilirubin AST ALT Alkaline Phosphatase Troponin I High Sens 3430.7 H B-Natriuretic Peptide Total Protein Albumin Urine Color YELLOW Urine Appearance HAZY Urine pH 5.5 Ur Specific [place] 1.020 Urine Protein 3+ H Urine Glucose (UA) NEG Urine Ketones NEG Urine Blood 3+ H Urine Nitrite NEG Ur Leukocyte Esterase TRACE H Urine RBC 76-150 H Urine WBC 15-29 H Ur Squamous Epith Cells TRACE Ur Renal Epithelial Cell TRACE Amorphous Sediment TRACE Urine Bacteria NONE Granular Casts 1-4 Waxy Casts 0-2 Crossmatch 12/15/20 12/15/20 12/15/20 05:27 05:27 05:27 WBC 11.3 H RBC 2.99 L Hgb 8.9 L Hct 26.6 L MCV 89.0 MCH 29.8 MCHC 33.5 RDW 14.4 Plt Count 175 MPV 10.3 Immature Gran % (Auto) 1.8 H Neut % (Auto) 77.0 H Lymph % (Auto) 8.6 L [place] % (Auto) 12.5 H Eos % (Auto) 0.0 Baso % (Auto) 0.1 Lymph # (Auto) 1.0 L [place] # (Auto) 1.4 H Eos # (Auto) 0.0 Baso # (Auto) 0.0 Abs Immat Gran (auto) 0.20 H Absolute Neuts (auto) 8.7 H Absolute Nucleated RBC 0.040 H Nucleated RBC % (auto) 0.4 H PT 12.4 INR 1.0 APTT 51.3 H D PTT (Heparin Protocol) VBG pH VBG pCO2 VBG pO2 VBG HCO3 VBG O2 Saturation VBG Base Excess Sodium 136 Potassium 4.2 Chloride 106 Carbon Dioxide 18 L Anion Gap 16 BUN 48 H Creatinine 4.08 H* Estim Creat Clear Calc 10.7 Estimated GFR 11 Random Glucose 97 Calcium 7.1 L Phosphorus 6.5 H Magnesium 2.1 Total Bilirubin 0.4 Direct Bilirubin 0.2 AST 11 ALT 12 Alkaline Phosphatase 56 Troponin I High Sens B-Natriuretic Peptide Total Protein 6.1 L Albumin 3.2 L Urine Color Urine Appearance Urine pH Ur Specific [place] Urine Protein Urine Glucose (UA) Urine Ketones Urine Blood Urine Nitrite Ur Leukocyte Esterase Urine RBC Urine WBC Ur Squamous Epith Cells Ur Renal Epithelial Cell Amorphous Sediment Urine Bacteria Granular Casts Waxy Casts Crossmatch 12/15/20 12/15/20 12/15/20 05:27 05:28 09:12 WBC RBC Hgb Hct MCV MCH MCHC RDW Plt Count MPV Immature Gran % (Auto) Neut % (Auto) Lymph % (Auto) [place] % (Auto) Eos % (Auto) Baso % (Auto) Lymph # (Auto) [place] # (Auto) Eos # (Auto) Baso # (Auto) Abs Immat Gran (auto) Absolute Neuts (auto) Absolute Nucleated RBC Nucleated RBC % (auto) PT INR APTT PTT (Heparin Protocol) 49.9 L VBG pH 7.40 VBG pCO2 26 VBG pO2 57 VBG HCO3 16 L VBG O2 Saturation 87.0 VBG Base Excess -6.5 Sodium Potassium Chloride Carbon Dioxide Anion Gap BUN Creatinine Estim Creat Clear Calc Estimated GFR Random Glucose Calcium Phosphorus Magnesium Total Bilirubin Direct Bilirubin AST ALT Alkaline Phosphatase Troponin I High Sens B-Natriuretic Peptide 1906 H Total Protein Albumin Urine Color Urine Appearance Urine pH Ur Specific [place] Urine Protein Urine Glucose (UA) Urine Ketones Urine Blood Urine Nitrite Ur Leukocyte Esterase Urine RBC Urine WBC Ur Squamous Epith Cells Ur Renal Epithelial Cell Amorphous Sediment Urine Bacteria Granular Casts Waxy Casts Crossmatch Progress Note: A&P Assessment and plan (1) Acute renal disease: Status: Acute (2) CKD stage 5 secondary to hypertension: Status: Acute (3) NSTEMI (non-ST elevated myocardial infarction): Status: Acute (4) PAF (paroxysmal atrial fibrillation): Status: Acute Assessment and Plan: Echocardiogram shows mild LV dysfunction but wall motion abnormalities difficult to appreciate. We can treat her for NSTEMI. Continue IV Heparin for now. Eventually Eliquis after procedures completed. Unlikely to tolerate any beta-blockers as the blood pressure is quite low. Otherwise, high-dose statins. Once her dialysis is sorted out, potentially cardiac catheterization can be planned. Fall Risk Details Current Medications: Current Medications Generic Name Dose Route Start Last Admin Trade Name Freq PRN Reason Stop Dose Admin Heparin Sodium (Porcine) 2,400 unit 12/13/20 12:59 12/15/20 10:03 Heparin Sodium,Porcine 5,000 Unit/Ml Vial 40 unit/kg (2400 unit) 2,400 unit IVPUSH Administration BOLUS PRN 40 unit/kg - Heparin Protocol Hydromorphone HCl 0.5 mg 12/13/20 15:58 12/14/20 20:32 Hydromorphone Hcl 0.5 Mg/0.5 Ml Syringe IVPUSH 0.5 mg Q2H PRN Administration Pain, Mild (Pain Scale 1-3) Heparin Sodium/Sodium Chloride 25,000 unit in 250 mls @ 0 mls/hr 12/13/20 13:00 12/15/20 10:13 IVCONT 16 units/kg/hr .Q0M DIMITRY 9.8 mls/hr Titration Protocol Per Protocol Ondansetron HCl 4 mg 12/14/20 21:02 12/14/20 21:07 Ondansetron Odt 4 Mg Tab.Rapdis TRANSLINGU 4 mg Q6H PRN Administration nausea Sevelamer HCl 800 mg 12/15/20 12:00 Sevelamer Hcl 800 Mg Tablet PO TIDWM DIMITRY Sodium Bicarbonate 650 mg 12/15/20 09:00 12/15/20 07:49 Sodium Bicarbonate 650 Mg Tablet PO 650 mg TID IDMITRY Administration Time Spent With Patient Time: Total time spent is greater than 50% in coordination of care (as documented) at patient's floor/unit and/or counseling patient: Time with patient: less than 15 minutes
[2020-12-15] MEDS: Heparin Sodium,Porcine/1/2NS 25,000 UNIT/250 ML IV.SOLN 9.8 UNIT IVCONT (14:52)
[2020-12-15 16:37] LABS: PTT Heparin Drip 45.8 SEC (53-77.9)
[2020-12-15] MEDS: Acetaminophen 325 MG TABLET 650 MG PO (22:23)
[2020-12-15 23:42] LABS: PTT Heparin Drip 62.4 SEC (53-77.9)
[2020-12-16] VITALS (7 sets, daily range): BP systolic 116–144; BP diastolic 69–86; PULSE 52–125; RESP 15–20; TEMP 36.1–37.1; O2SAT 95–99; BMI 22.6
[2020-12-16] MEDS: HYDROmorphone HCl 0.5 MG/0.5 ML SYRINGE IVPUSH (00:33)
[2020-12-16 06:08] LABS: MANUAL DIFF FLAG NO
[2020-12-16 06:11] LABS: VBG Base Excess -6.3 mmol/L; VBG HCO3 19 mmol/L (22-26); VBG pCO2 36 mmHg; VBG pH 7.32 (7.32-7.43); VBG pO2 37 mmHg
[2020-12-16 06:12] LABS: Venous Blood Gas Refer to POC result
[2020-12-16 06:42] LABS: Basophils Percent Auto 0.1 % (0-2); Eosinophils Percent Auto 0.3 % (0-4); Hematocrit 28.4 % (37-47); Hemoglobin 9.3 g/dl (12.0-16.0); Imm Gran Abs Auto 0.28 X10*3/uL (0.00-0.03); Imm Gran Pct Auto 2.1 % (0.0-0.4); Lymphocytes Absolute Auto 1.7 X10*3/uL (1.2-4.9); Lymphocytes Percent Auto 13.1 % (20-40); Mean Corpuscular HGB Conc 32.7 g/dl (31.0-35.0); Mean Corpuscular Hemoglobin 29.2 pg (27.0-33.0); Mean Platelet Volume 10.7 fL (9.4-12.3); Monocytes Absolute Auto 1.4 X10*3/uL (0.1-1.2); Monocytes Percent Auto 10.5 % (2-11); NRBC Pct Auto 0.2 /100WBC (0.0-0.2); Neutrophils Absolute Auto 9.8 X10*3/uL (2.0-8.3); Neutrophils Percent Auto 73.9 % (45-73); Platelet Count 178 X10*3/uL (160-400); Red Blood Count 3.19 X10*6/uL (4.20-5.50); Red Cell Distribution Width 14.4 % (11.0-16.0); White Blood Count 13.2 X10*3/uL (4.8-10.8)
[2020-12-16 06:47] LABS: B Type Natriuretic Peptide 2651 pg/mL (<100)
[2020-12-16 06:53] LABS: PTT Heparin Drip 60.4 SEC (53-77.9)
[2020-12-16 06:56] LABS: Prothrombin Time 11.5 SEC (10.8-13.0)
[2020-12-16 07:00] LABS: Partial Thromboplastin Time 56.9 SEC (24.1-38.0)
[2020-12-16 07:28] LABS: Alanine Aminotransferase 8 U/L (0-31); Albumin Level 3.1 g/dL (3.5-5.0); Alkaline Phosphatase 55 U/L (39-117); Anion Gap 19 (12-20); Aspartate Amino Transferase 10 U/L (5-31); Bilirubin Direct 0.2 mg/dL (0.0-0.5); Bilirubin Total 0.5 mg/dL (0.0-1.0); Blood Urea Nitrogen 70 mg/dL (9-16); Calcium 6.8 mg/dL (8.4-10.2); Carbon Dioxide 19 mmol/L (22-29); Chloride 102 mmol/L (96-108); Creatinine Clr Calc Pharmacy 8.2; Estimated Glomerular Filt Rate 8; Glucose Random 98 mg/dL (60-115); Sodium 136 mmol/L (135-145)
[2020-12-16] MEDS: Sodium Bicarbonate 650 MG TABLET PO ×3 (07:46→19:53)
--- NOTE | 2020-12-16 09:38 | P.PNNP_ITS ---
Subjective Subjective Date of Service: 12/16/20 Interval history: dialysis treatment number 3 today feeling much better. Remains alert and oriented fully. Heparin gtt in afib for last 36h or so. Minimal UOP. No cp or sob with resolution of edema. Physical Exam Vital Signs: Vital Signs: Last Vital Signs Temp 97 F 12/16/20 07:06 Pulse 89 12/16/20 07:06 Resp 20 12/16/20 07:06 BP 126/85 12/16/20 07:06 Pulse Ox 99 12/16/20 07:06 Oxygen Flow Rate 0 12/13/20 17:10 Body Mass Index 22.6 Objective Data Labs CBC & Chem 7: 12/16/20 06:01 12/16/20 06:01 Labs: Laboratory Results - last 24 hr 12/15/20 12/15/20 12/15/20 09:12 15:53 23:20 WBC RBC Hgb Hct MCV MCH MCHC RDW Plt Count MPV Immature Gran % (Auto) Neut % (Auto) Lymph % (Auto) [place] % (Auto) Eos % (Auto) Baso % (Auto) Lymph # (Auto) [place] # (Auto) Eos # (Auto) Baso # (Auto) Abs Immat Gran (auto) Absolute Neuts (auto) Absolute Nucleated RBC Nucleated RBC % (auto) PT INR APTT PTT (Heparin Protocol) 49.9 L 45.8 L 62.4 D VBG pH VBG pCO2 VBG pO2 VBG HCO3 VBG O2 Saturation VBG Base Excess Sodium Potassium Chloride Carbon Dioxide Anion Gap BUN Creatinine Estim Creat Clear Calc Estimated GFR Random Glucose Calcium Phosphorus Magnesium Total Bilirubin Direct Bilirubin AST ALT Alkaline Phosphatase B-Natriuretic Peptide Total Protein Albumin 12/16/20 12/16/20 12/16/20 06:01 06:01 06:01 WBC 13.2 H RBC 3.19 L Hgb 9.3 L Hct 28.4 L MCV 89.0 MCH 29.2 MCHC 32.7 RDW 14.4 Plt Count 178 MPV 10.7 Immature Gran % (Auto) 2.1 H Neut % (Auto) 73.9 H Lymph % (Auto) 13.[address] [place] % (Auto) 10.5 Eos % (Auto) 0.3 Baso % (Auto) 0.1 Lymph # (Auto) 1.7 [place] # (Auto) 1.4 H Eos # (Auto) 0.0 Baso # (Auto) 0.0 Abs Immat Gran (auto) 0.28 H Absolute Neuts (auto) 9.8 H Absolute Nucleated RBC 0.030 H Nucleated RBC % (auto) 0.2 PT 11.5 INR 1.0 APTT 56.9 H PTT (Heparin Protocol) VBG pH VBG pCO2 VBG pO2 VBG HCO3 VBG O2 Saturation VBG Base Excess Sodium 136 Potassium 4.0 Chloride 102 Carbon Dioxide 19 L Anion Gap 19 BUN 70 H Creatinine 5.34 H* Estim Creat Clear Calc 8.2 Estimated GFR 8 Random Glucose 98 Calcium 6.8 L Phosphorus 6.0 H Magnesium 2.0 Total Bilirubin 0.5 Direct Bilirubin 0.2 AST 10 ALT 8 Alkaline Phosphatase 55 B-Natriuretic Peptide Total Protein 6.0 L Albumin 3.1 L 12/16/20 12/16/20 12/16/20 06:01 06:01 06:04 WBC RBC Hgb Hct MCV MCH MCHC RDW Plt Count MPV Immature Gran % (Auto) Neut % (Auto) Lymph % (Auto) [place] % (Auto) Eos % (Auto) Baso % (Auto) Lymph # (Auto) [place] # (Auto) Eos # (Auto) Baso # (Auto) Abs Immat Gran (auto) Absolute Neuts (auto) Absolute Nucleated RBC Nucleated RBC % (auto) PT INR APTT PTT (Heparin Protocol) 60.4 VBG pH 7.32 VBG pCO2 36 VBG pO2 37 VBG HCO3 19 L VBG O2 Saturation 58.0 VBG Base Excess -6.3 Sodium Potassium Chloride Carbon Dioxide Anion Gap BUN Creatinine Estim Creat Clear Calc Estimated GFR Random Glucose Calcium Phosphorus Magnesium Total Bilirubin Direct Bilirubin AST ALT Alkaline Phosphatase B-Natriuretic Peptide 2651 H Total Protein Albumin Microbiology Microbiology Results: Microbiology 12/15/20 00:01 Blood - Venous Blood Culture - Preliminary No growth after 24 hours. 12/14/20 23:58 Blood - Venous Blood Culture - Preliminary No growth after 24 hours. 12/13/20 07:15 Blood - Venous Blood Culture - Preliminary No growth after 48 hours. 12/13/20 07:20 Blood - Venous Blood Culture - Preliminary No growth after 48 hours. Assessment & Plan Assessment and plan (1) Acute on chronic kidney failure: Status: Acute Assessment and Plan: dialysis today. would ask for tunneled dialysis catheter via IR tomorrow please. If transferring for left heart catheterization will arrange at next facility - cleared for left heart cath from my point of view - will arrange for dialysis in [place] upon discharge (2) Non-ST elevation VT (NSTEMI): Status: Acute (3) CKD stage 5 secondary to hypertension: Status: Acute Time Spent With Patient Time: Total time spent is greater than 50% in coordination of care (as documented) at patient's floor/unit and/or counseling patient:
--- NOTE | 2020-12-16 10:28 | P.PNCA_ITS ---
Subjective Subjective Date of Service: 12/16/20 Interval history: She states that she is feeling better. Does not have any chest discomfort at this time. Review of Systems Review of Systems Yes all other systems are reviewed and are negative Cardiovascular: Reports as per HPI, Reports no additional cardiovascular complaints, Denies acrocyanosis, Denies cool extremities, Denies painful fingertips, Denies chest pain, Denies chest pain at rest, Denies diaphoresis, Denies syncope, Denies irregular heart rhythm, Denies claudication, Denies leg edema, Denies lightheadedness, Denies palpitations and Denies dyspnea Respiratory: Denies dyspnea Denies syncope Endocrine: Denies palpitations Physical Exam Vital Signs: Last Vital Signs Temp 97 F 12/16/20 07:06 Pulse 89 12/16/20 07:06 Resp 20 12/16/20 07:06 BP 126/85 12/16/20 07:06 Pulse Ox 99 12/16/20 07:06 Oxygen Flow Rate 0 12/13/20 17:10 Body Mass Index 22.6 Const General: cooperative, comfortable and no acute distress Orientation/consciousness: patient oriented x3 HENMT Other: Unremarkable Neck Neck: Yes normal visual inspection Chest Chest palpation & inspection: normal inspection of the chest Resp Auscultation: clear to auscultation bilaterally, no crackles and no wheezes Cardio Jugular venous distension: no JVD Palpation: normal PMI Heart sounds: S1 normal heart sound present, S2 normal heart sound present, no gallops, Murmur heart sound present systolic II/ and at the right sternal border and no rubs GI Palpation (GI): Soft to palpation Back/Spine/Pelvis Other: unremarkable Skin General skin exam: no rashes or lesions noted Neuro General: patient oriented x3 Extrem General: Yes no clubbing, cyanosis or edema Psych Mental Status: mental status grossly normal Results Labs and Meds Result diagrams: 12/16/20 06:01 12/16/20 06:01 Lab results: Laboratory Results - last 24 hr 12/15/20 12/15/20 12/16/20 15:53 23:20 06:01 WBC 13.2 H RBC 3.19 L Hgb 9.3 L Hct 28.4 L MCV 89.0 MCH 29.2 MCHC 32.7 RDW 14.4 Plt Count 178 MPV 10.7 Immature Gran % (Auto) 2.1 H Neut % (Auto) 73.9 H Lymph % (Auto) 13.1 L [place] % (Auto) 10.5 Eos % (Auto) 0.3 Baso % (Auto) 0.1 Lymph # (Auto) 1.7 [place] # (Auto) 1.4 H Eos # (Auto) 0.0 Baso # (Auto) 0.0 Abs Immat Gran (auto) 0.28 H Absolute Neuts (auto) 9.8 H Absolute Nucleated RBC 0.030 H Nucleated RBC % (auto) 0.2 PT INR APTT PTT (Heparin Protocol) 45.8 L 62.4 D VBG pH VBG pCO2 VBG pO2 VBG HCO3 VBG O2 Saturation VBG Base Excess Sodium Potassium Chloride Carbon Dioxide Anion Gap BUN Creatinine Estim Creat Clear Calc Estimated GFR Random Glucose Calcium Phosphorus Magnesium Total Bilirubin Direct Bilirubin AST ALT Alkaline Phosphatase B-Natriuretic Peptide Total Protein Albumin 12/16/20 12/16/20 12/16/20 06:01 06:01 06:01 WBC RBC Hgb Hct MCV MCH MCHC RDW Plt Count MPV Immature Gran % (Auto) Neut % (Auto) Lymph % (Auto) [place] % (Auto) Eos % (Auto) Baso % (Auto) Lymph # (Auto) [place] # (Auto) Eos # (Auto) Baso # (Auto) Abs Immat Gran (auto) Absolute Neuts (auto) Absolute Nucleated RBC Nucleated RBC % (auto) PT 11.5 INR 1.0 APTT 56.9 H PTT (Heparin Protocol) VBG pH VBG pCO2 VBG pO2 VBG HCO3 VBG O2 Saturation VBG Base Excess Sodium 136 Potassium 4.0 Chloride 102 Carbon Dioxide 19 L Anion Gap 19 BUN 70 H Creatinine 5.34 H* Estim Creat Clear Calc 8.2 Estimated GFR 8 Random Glucose 98 Calcium 6.8 L Phosphorus 6.0 H Magnesium 2.0 Total Bilirubin 0.5 Direct Bilirubin 0.2 AST 10 ALT 8 Alkaline Phosphatase 55 B-Natriuretic Peptide 2651 H Total Protein 6.0 L Albumin 3.1 L 12/16/20 12/16/20 06:01 06:04 WBC RBC Hgb Hct MCV MCH MCHC RDW Plt Count MPV Immature Gran % (Auto) Neut % (Auto) Lymph % (Auto) [place] % (Auto) Eos % (Auto) Baso % (Auto) Lymph # (Auto) [place] # (Auto) Eos # (Auto) Baso # (Auto) Abs Immat Gran (auto) Absolute Neuts (auto) Absolute Nucleated RBC Nucleated RBC % (auto) PT INR APTT PTT (Heparin Protocol) 60.4 VBG pH 7.32 VBG pCO2 36 VBG pO2 37 VBG HCO3 19 L VBG O2 Saturation 58.0 VBG Base Excess -6.3 Sodium Potassium Chloride Carbon Dioxide Anion Gap BUN Creatinine Estim Creat Clear Calc Estimated GFR Random Glucose Calcium Phosphorus Magnesium Total Bilirubin Direct Bilirubin AST ALT Alkaline Phosphatase B-Natriuretic Peptide Total Protein Albumin Progress Note: A&P Assessment and plan (1) NSTEMI (non-ST elevated myocardial infarction): Status: Acute (2) PAF (paroxysmal atrial fibrillation): Status: Acute (3) Acute renal disease: Status: Acute (4) CKD stage 5 secondary to hypertension: Status: Acute Assessment and Plan: Echocardiogram shows mild LV dysfunction but wall motion abnormalities difficult to appreciate. We can treat her for NSTEMI. Continue IV Heparin for now. Eventually Eliquis after procedures completed. Start low-dose beta-blockers. Also needs aspirin and high-dose statins. Cardiac catheterization timing to be decided based on dialysis and if this is permanent. Discussed with nephrology (). Fall Risk Details Current Medications: Current Medications Generic Name Dose Route Start Last Admin Trade Name Freq PRN Reason Stop Dose Admin Acetaminophen 650 mg 12/15/20 22:15 12/15/20 22:23 Acetaminophen 325 Mg Tablet PO 650 mg Q6H PRN Administration Pain, Mild (Pain Scale 1-3) Heparin Sodium (Porcine) 2,400 unit 12/13/20 12:59 12/15/20 17:06 Heparin Sodium,Porcine 5,000 Unit/Ml Vial 40 unit/kg (2400 unit) 2,400 unit IVPUSH Administration BOLUS PRN 40 unit/kg - Heparin Protocol Hydromorphone HCl 0.5 mg 12/13/20 15:58 12/16/20 00:33 Hydromorphone Hcl 0.5 Mg/0.5 Ml Syringe IVPUSH 0.5 mg Q2H PRN Administration Pain, Mild (Pain Scale 1-3) Heparin Sodium/Sodium Chloride 25,000 unit in 250 mls @ 0 mls/hr 12/13/20 13:00 12/16/20 07:53 IVCONT 18 units/kg/hr .Q0M DIMITRY 11.02 mls/hr Titration Protocol Per Protocol Ondansetron HCl 4 mg 12/14/20 21:02 12/14/20 21:07 Ondansetron Odt 4 Mg Tab.Rapdis TRANSLINGU 4 mg Q6H PRN Administration nausea Sevelamer HCl 800 mg 12/15/20 12:00 12/16/20 07:46 Sevelamer Hcl 800 Mg Tablet PO 800 mg TIDWM DIMITRY Administration Sodium Bicarbonate 650 mg 12/15/20 09:00 12/16/20 07:46 Sodium Bicarbonate 650 Mg Tablet PO 650 mg TID DIMITRY Administration Time Spent With Patient Time: Total time spent is greater than 50% in coordination of care (as documented) at patient's floor/unit and/or counseling patient: Time with patient: less than 15 minutes
--- NOTE | 2020-12-16 11:51 | MHC.CM.PN ---
per rounds pt to be transferred to [facility]
[2020-12-16] MEDS: Heparin Sodium,Porcine/1/2NS 25,000 UNIT/250 ML IV.SOLN 11.02 UNIT IVCONT (12:35)
[2020-12-16] MEDS: Aspirin Enteric Coated 81 MG TABLET.DR PO (14:36)
[2020-12-16] MEDS: Metoprolol Succinate ER 12.5 MG HALFTAB.ER.24H PO (14:36)
[2020-12-16 16:29] LABS: Glucose, Whole Blood 197 mg/dL (60-115)
--- NOTE | 2020-12-16 17:28 | HO.PM.IMPN ---
Subjective Subjective Date of Service: 12/16/20 Interval History: Seen in f/u for Afib, nsetmi and renal failure requiring dialysis and treatment in in icu. She is doing much better. Review of Systems Gen: no fever Resp: no sob, no cough CV: no chest, no BECKER, no leg edema GI: No n/v, no abd pain Neuro: No confusion Physical Exam Vital Signs: Vital Signs: Last Vital Signs Temp 98.6 F 12/16/20 15:16 Pulse 115 H 12/16/20 15:16 Resp 19 12/16/20 15:16 BP 144/86 H 12/16/20 15:16 Pulse Ox 99 12/16/20 15:16 Oxygen Flow Rate 0 12/13/20 17:10 Body Mass Index 22.6 Const: Other: Constitutional Awake and Alert, No apparent distress Neck Supple, No lymphadenopathy Cardiovascular RRR, No M/R/G, S1 S2, No S3 S4, No pedal edema Respiratory Lungs clear, No respiratory distress Gastrointestinal Non tender, Non-distended Skin No rash Neurological Alert & oriented x3 Psychological Appropriate affect Objective Data Current Medications Generic Name Dose Route Start Last Admin Trade Name Freq PRN Reason Stop Dose Admin Acetaminophen 650 mg 12/15/20 22:15 12/15/20 22:23 Acetaminophen 325 Mg Tablet PO 650 mg Q6H PRN Administration Pain, Mild (Pain Scale 1-3) Aspirin 81 mg 12/16/20 10:45 12/16/20 14:36 Aspirin Enteric Coated 81 Mg Tablet.Dr PO 81 mg DAILY DIMITRY Administration Atorvastatin Calcium 80 mg 12/16/20 21:00 Atorvastatin Calcium 80 Mg Tablet PO BEDTIME [facility] Heparin Sodium (Porcine) 2,400 unit 12/13/20 12:59 12/15/20 17:06 Heparin Sodium,Porcine 5,000 Unit/Ml Vial 40 unit/kg (2400 unit) 2,400 unit IVPUSH Administration BOLUS PRN 40 unit/kg - Heparin Protocol Hydromorphone HCl 0.5 mg 12/13/20 15:58 12/16/20 00:33 Hydromorphone Hcl 0.5 Mg/0.5 Ml Syringe IVPUSH 0.5 mg Q2H PRN Administration Pain, Mild (Pain Scale 1-3) Heparin Sodium/Sodium Chloride 25,000 unit in 250 mls @ 0 mls/hr 12/13/20 13:00 12/16/20 12:35 IVCONT 18 units/kg/hr .Q0M DIMITRY 11.02 mls/hr Administration Protocol Per Protocol Metoprolol Succinate 12.5 mg 12/16/20 10:35 12/16/20 14:36 Metoprolol Succinate Er 12.5 Mg Halftab.Er.24h PO 12.5 mg DAILY DIMITRY Administration Protocol Ondansetron HCl 4 mg 12/14/20 21:02 12/14/20 21:07 Ondansetron Odt 4 Mg Tab.Rapdis TRANSLINGU 4 mg Q6H PRN Administration nausea Sevelamer HCl 800 mg 12/15/20 12:00 12/16/20 17:14 Sevelamer Hcl 800 Mg Tablet PO 800 mg TIDWM DIMITRY Administration Sodium Bicarbonate 650 mg 12/15/20 09:00 12/16/20 14:37 Sodium Bicarbonate 650 Mg Tablet PO 650 mg TID DIMITRY Administration Labs CBC & Chem 7: 12/16/20 06:01 12/16/20 06:01 Microbiology Microbiology Results: Microbiology 12/14/20 23:58 Urine clean catch - Hartman Catheter Urine Culture - Final No growth. 12/15/20 00:01 Blood - Venous Blood Culture - Preliminary No growth after 24 hours. 12/14/20 23:58 Blood - Venous Blood Culture - Preliminary No growth after 24 hours. 12/13/20 07:15 Blood - Venous Blood Culture - Preliminary No growth after 48 hours. 12/13/20 07:20 Blood - Venous Blood Culture - Preliminary No growth after 48 hours. Assessment and Plan (1) PAF (paroxysmal atrial fibrillation): Status: Acute (2) Anemia: Problem details: consider iron studies, hemolytic work up, b12, folate. Will assess possible procrit pending results but in setting of NSTEMI no pugh Status: Acute (3) Atrial flutter with controlled response: Status: Acute (4) NSTEMI (non-ST elevated myocardial infarction): Status: Acute Assessment and Plan: 70/F with CKD who presented with encephalopathy and worsening renal failure, AFIB w/ RVR, NSTEMI, hypothermia and admitted through ICU where she required urgent dialysis and tretament for WI and overall doing better 1/NSTEMI-medical management with heparin, staint and BB. She will need cath but could be complicated by new to dialysis 2/AFIB--rate controll with metoprolo to be adjusted, Heparin for stroke prevention, ultimately will be switched to NOAC 3/CKD-->ESRD, dialysis x 2 now, ? need for permanent dialysis 5/HLD--statin Plan discussed with patient and daughter at bedside
[2020-12-16] MEDS: Atorvastatin Calcium 80 MG TABLET PO (19:54)
[2020-12-16] MEDS: Zolpidem Tartrate 5 MG TABLET PO (21:18)
[2020-12-17 02:31] VITALS: BP 130/80; PULSE 94; RESP 15; TEMP 36.7; O2SAT 98
[2020-12-17 05:10] VITALS: BMI 22.6
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
[2020-12-17 05:58] LABS: MANUAL DIFF FLAG NO
[2020-12-17 06:01] LABS: VBG HCO3 20 mmol/L (22-26); VBG pCO2 36 mmHg; VBG pH 7.36 (7.32-7.43); VBG pO2 41 mmHg
[2020-12-17 06:01] LABS: Venous Blood Gas Refer to POC result
[2020-12-17 06:03] LABS: Basophils Percent Auto 0.1 % (0-2); Eosinophils Absolute Auto 0.2 X10*3/uL (0.0-0.4); Hematocrit 30.7 % (37-47); Hemoglobin 10.1 g/dl (12.0-16.0); Imm Gran Abs Auto 0.32 X10*3/uL (0.00-0.03); Imm Gran Pct Auto 2.1 % (0.0-0.4); Lymphocytes Absolute Auto 2.6 X10*3/uL (1.2-4.9); Lymphocytes Percent Auto 16.5 % (20-40); Mean Corpuscular HGB Conc 32.9 g/dl (31.0-35.0); Mean Corpuscular Volume 91.1 fL (80-98); Monocytes Absolute Auto 1.5 X10*3/uL (0.1-1.2); Monocytes Percent Auto 9.4 % (2-11); NRBC Pct Auto 0.1 /100WBC (0.0-0.2); Neutrophils Absolute Auto 11.1 X10*3/uL (2.0-8.3); Neutrophils Percent Auto 70.9 % (45-73); Platelet Count 191 X10*3/uL (160-400); Red Blood Count 3.37 X10*6/uL (4.20-5.50); Red Cell Distribution Width 14.6 % (11.0-16.0); White Blood Count 15.6 X10*3/uL (4.8-10.8)
[2020-12-17 06:23] LABS: B Type Natriuretic Peptide 1757 pg/mL (<100)
[2020-12-17 06:28] LABS: PTT Heparin Drip 48.1 SEC (53-77.9)
[2020-12-17 06:38] LABS: Alanine Aminotransferase 8 U/L (0-31); Albumin Level 3.3 g/dL (3.5-5.0); Alkaline Phosphatase 59 U/L (39-117); Anion Gap 19 (12-20); Aspartate Amino Transferase 10 U/L (5-31); Bilirubin Direct 0.2 mg/dL (0.0-0.5); Bilirubin Total 0.5 mg/dL (0.0-1.0); Blood Urea Nitrogen 46 mg/dL (9-16); Calcium 7.1 mg/dL (8.4-10.2); Carbon Dioxide 19 mmol/L (22-29); Chloride 101 mmol/L (96-108); Creatinine Clr Calc Pharmacy 11.1; Estimated Glomerular Filt Rate 11; Glucose Random 101 mg/dL (60-115); Phosphorus 3.9 mg/dL (2.7-4.5); Sodium 135 mmol/L (135-145); Total Protein 6.4 g/dL (6.5-8.0)
[2020-12-17] MEDS: Heparin Sodium,Porcine 5,000 UNIT/ML VIAL 2400 UNIT IVPUSH (07:26)
[2020-12-17] MEDS: Aspirin Enteric Coated 81 MG TABLET.DR PO (07:31)
[2020-12-17] MEDS: Sodium Bicarbonate 650 MG TABLET PO ×2 (07:31→14:58)
[2020-12-17 07:34] VITALS: BP 114/68; PULSE 88
[2020-12-17] MEDS: Metoprolol Succinate ER 12.5 MG HALFTAB.ER.24H PO (07:34)
[2020-12-17 07:36] VITALS: BP 114/68; PULSE 88; RESP 17; TEMP 37.1; O2SAT 99
[2020-12-17] MEDS: Heparin Sodium,Porcine/1/2NS 25,000 UNIT/250 ML IV.SOLN 12.25 UNIT IVCONT (11:07)
[2020-12-17 11:13] VITALS: BP 137/84; PULSE 98; RESP 19; TEMP 36.9; O2SAT 99
--- NOTE | 2020-12-17 11:29 | PM.PNCARD ---
Subjective Subjective Date of Service: 12/17/20 Interval history: She states that she feels okay. There are no specific cardiac complaints at this time. Review of Systems Review of Systems Yes all other systems are reviewed and are negative Cardiovascular: Reports as per HPI, Reports no additional cardiovascular complaints, Denies acrocyanosis, Denies cool extremities, Denies painful fingertips, Denies chest pain, Denies chest pain at rest, Denies diaphoresis, Denies syncope, Denies irregular heart rhythm, Denies claudication, Denies leg edema, Denies lightheadedness, Denies palpitations and Denies dyspnea Respiratory: Denies dyspnea Denies syncope Endocrine: Denies palpitations Physical Exam Vital Signs: Last Vital Signs Temp 98.4 F 12/17/20 11:13 Pulse 98 12/17/20 11:13 Resp 19 12/17/20 11:13 BP 137/84 12/17/20 11:13 Pulse Ox 99 12/17/20 11:13 Oxygen Flow Rate 0 12/13/20 17:10 Body Mass Index 22.6 Const General: cooperative, comfortable and no acute distress Orientation/consciousness: patient oriented x3 HENMT Other: Unremarkable Neck Neck: Yes normal visual inspection Chest Chest palpation & inspection: normal inspection of the chest Resp Auscultation: clear to auscultation bilaterally, no crackles and no wheezes Cardio Jugular venous distension: no JVD Palpation: normal PMI Heart sounds: S1 normal heart sound present, S2 normal heart sound present, no gallops, Murmur heart sound present systolic II/ and at the right sternal border and no rubs GI Palpation (GI): Soft to palpation Back/Spine/Pelvis Other: unremarkable Skin General skin exam: no rashes or lesions noted Neuro General: patient oriented x3 Extrem General: Yes no clubbing, cyanosis or edema Psych Mental Status: mental status grossly normal Results Labs and Meds Result diagrams: 12/17/20 05:52 12/17/20 05:52 Lab results: Laboratory Results - last 24 hr 12/16/20 12/17/20 12/17/20 16:14 05:52 05:52 WBC 15.6 H RBC 3.37 L Hgb 10.1 L Hct 30.7 L MCV 91.1 MCH 30.0 MCHC 32.9 RDW 14.6 Plt Count 191 MPV 11.0 Immature Gran % (Auto) 2.1 H Neut % (Auto) 70.9 Lymph % (Auto) 16.5 L [place] % (Auto) 9.4 Eos % (Auto) 1.0 Baso % (Auto) 0.1 Lymph # (Auto) 2.6 [place] # (Auto) 1.5 H Eos # (Auto) 0.2 Baso # (Auto) 0.0 Abs Immat Gran (auto) 0.32 H Absolute Neuts (auto) 11.1 H Absolute Nucleated RBC 0.020 H Nucleated RBC % (auto) 0.1 PT 12.0 INR 1.0 APTT Cancelled PTT (Heparin Protocol) 48.1 L D VBG pH VBG pCO2 VBG pO2 VBG HCO3 VBG O2 Saturation VBG Base Excess Sodium Potassium Chloride Carbon Dioxide Anion Gap BUN Creatinine Estim Creat Clear Calc Estimated GFR POC Glucose 197 H Random Glucose Calcium Phosphorus Magnesium Total Bilirubin Direct Bilirubin AST ALT Alkaline Phosphatase B-Natriuretic Peptide Total Protein Albumin 12/17/20 12/17/20 12/17/20 05:52 05:52 05:54 WBC RBC Hgb Hct MCV MCH MCHC RDW Plt Count MPV Immature Gran % (Auto) Neut % (Auto) Lymph % (Auto) [place] % (Auto) Eos % (Auto) Baso % (Auto) Lymph # (Auto) [place] # (Auto) Eos # (Auto) Baso # (Auto) Abs Immat Gran (auto) Absolute Neuts (auto) Absolute Nucleated RBC Nucleated RBC % (auto) PT INR APTT PTT (Heparin Protocol) VBG pH 7.36 VBG pCO2 36 VBG pO2 41 VBG HCO3 20 L VBG O2 Saturation 68.0 VBG Base Excess TNP Sodium 135 Potassium 4.0 Chloride 101 Carbon Dioxide 19 L Anion Gap 19 BUN 46 H Creatinine 3.92 H Estim Creat Clear Calc 11.1 Estimated GFR 11 POC Glucose Random Glucose 101 Calcium 7.1 L Phosphorus 3.9 Magnesium 2.0 Total Bilirubin 0.5 Direct Bilirubin 0.2 AST 10 ALT 8 Alkaline Phosphatase 59 B-Natriuretic Peptide 1757 H Total Protein 6.4 L Albumin 3.3 L Progress Note: A&P Assessment and plan (1) NSTEMI (non-ST elevated myocardial infarction): Status: Acute (2) PAF (paroxysmal atrial fibrillation): Status: Acute (3) Acute renal disease: Status: Acute (4) CKD stage 5 secondary to hypertension: Status: Acute Assessment and Plan: Echocardiogram shows mild LV dysfunction but wall motion abnormalities difficult to appreciate. We can treat her for NSTEMI. Continue IV Heparin for now. Eventually Eliquis after procedures completed. Low-dose beta-blockers. Aspirin and high-dose statins. We will transfer her to [facility] for cardiac catheterization. Discussed with nephrology () yesterday. Cleared for procedure from nephrology. Fall Risk Details Current Medications: Current Medications Generic Name Dose Route Start Last Admin Trade Name Freq PRN Reason Stop Dose Admin Acetaminophen 650 mg 12/15/20 22:15 12/15/20 22:23 Acetaminophen 325 Mg Tablet PO 650 mg Q6H PRN Administration Pain, Mild (Pain Scale 1-3) Aspirin 81 mg 12/16/20 10:45 12/17/20 07:31 Aspirin Enteric Coated 81 Mg Tablet. PO 81 mg DAILY DIMITRY Administration Atorvastatin Calcium 80 mg 12/16/20 21:00 12/16/20 19:54 Atorvastatin Calcium 80 Mg Tablet PO 80 mg BEDTIME DIMITRY Administration Heparin Sodium (Porcine) 2,400 unit 12/13/20 12:59 12/17/20 07:26 Heparin Sodium,Porcine 5,000 Unit/Ml Vial 40 unit/kg (2400 unit) 2,400 unit IVPUSH Administration BOLUS PRN 40 unit/kg - Heparin Protocol Hydromorphone HCl 0.5 mg 12/13/20 15:58 12/16/20 00:33 Hydromorphone Hcl 0.5 Mg/0.5 Ml Syringe IVPUSH 0.5 mg Q2H PRN Administration Pain, Mild (Pain Scale 1-3) Heparin Sodium/Sodium Chloride 25,000 unit in 250 mls @ 0 mls/hr 12/13/20 13:00 12/17/20 11:07 IVCONT 20 units/kg/hr .Q0M DIMITRY 12.25 mls/hr Administration Protocol Per Protocol Metoprolol Succinate 12.5 mg 12/16/20 10:35 12/17/20 07:34 Metoprolol Succinate Er 12.5 Mg Halftab.Er.24h PO 12.5 mg DAILY DIMITRY Administration Protocol Ondansetron HCl 4 mg 12/14/20 21:02 12/16/20 21:21 Ondansetron Odt 4 Mg Tab.Rapdis TRANSLINGU 4 mg Q6H PRN Administration nausea Sevelamer HCl 800 mg 12/15/20 12:00 12/17/20 11:09 Sevelamer Hcl 800 Mg Tablet PO 800 mg TIDWM DIMITRY Administration Sodium Bicarbonate 650 mg 12/15/20 09:00 12/17/20 07:31 Sodium Bicarbonate 650 Mg Tablet PO 650 mg TID DIMITRY Administration Time Spent With Patient Time: Total time spent is greater than 50% in coordination of care (as documented) at patient's floor/unit and/or counseling patient: Time with patient: less than 15 minutes
--- NOTE | 2020-12-17 12:38 | PM.DS ---
DS: Providers Provider Date of Service: 12/23/20 Date of admission: 12/13/20 15:18 Primary care physician: Unknown Physician Consults: 12/13/20 12:03 Consult to Cardiology Stat Consulting Provider: Flavio Solis Reason for consultation: cp and elevated trop Has provider been notified: Yes DS: Diagnosis Discharge Diagnosis (1) NSTEMI (non-ST elevated myocardial infarction): Status: Acute (2) PAF (paroxysmal atrial fibrillation): Status: Acute (3) Acute renal disease: Status: Acute (4) CKD stage 5 secondary to hypertension: Status: Acute DS: Medications Discharge Medications Home Medications: Home Medications Medication Instructions Recorded Confirmed amlodipine 10 mg tablet 10 mg PO DAILY 08/10/20 12/13/20 furosemide 40 mg tablet 40 mg PO DAILY 08/10/20 12/13/20 calcitriol 0.5 mcg capsule 0.5 mcg PO DAILY 12/09/20 12/13/20 carvedilol 25 mg tablet 25 mg PO BID 12/09/20 12/13/20 Previous Rx's Medication Instructions Recorded cefuroxime axetil 250 mg tablet 250 mg PO BID 7 Days #14 tab 12/09/20 prednisone 20 mg tablet 20 mg PO DAILY #18 tab 12/09/20 DS: Summary Hospital Course Hospital Course: The patient is a 70 yo female w PMHx of asthmatic bronchitis, HTN, CKD stage IV, anemia, DVT, GERD, history of ectopic , depression, s/ right total shoulder replacement. 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 The patient stated that she had been sick for 4 days. Her cough has been productive of thick mucus that looks like rubber cement. She c/o a constant, tightness in the center of her chest which was worse with breathing and coughing. She has also had bilateral crampy lower extremity pain. 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 No relief from that. The patient smokes 1 cigarette per day. She has not had a COVID-19 infection, nor been vaccinated. The patient lives with her and is fully independent. 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 In the ED she was fully oriented and in NAD. Reported vital signs were heart rate of 70, blood pressure 127/60, respiratory rate of 27, with a sat of 97% on room air. No temperature was taken. The abdomen was benign. Physical exam was notable for diffuse rales and wheezes. She had tenderness with palpation of the calves bilaterally with a positive Homans sign. There was no peripheral edema. Labs in the ED were notable for a white count of 13.5, hemoglobin 8.0 (down from 13.6 in Sep, 2019), normal coags, D-dimer of 2426, sodium of 131, potassium 6.4, chloride 102, bicarb 10, BUN and creatinine 143/9.6, glucose 123, normal lactic acid, phosphorus 13.6, troponin 1941 and 1709 on repeat, BNP 1838, and albumin 3.7. Urinalysis was negative; there was 2+ urine protein. COVID AMERICO was negative. EKG in the ED showed low amplitude Rw/PRVP in V1-3, NCFPT. Duplex scan of the lower extremities and lung perfusion scan were negative. She c/o being cold and pain in her legs. Rectal temp was 95.4. We put a janak hugger on. Heart rate was 69, blood pressure 131/76, she was breathing easy and looked nontoxic, sat was 98% on room air. She looked uncomfortable. She had 4 cm jugular venous distention with the head of the bed at about 30 degrees. Chest was clear. Abdomen was benign. She had no peripheral edema. LABS IN THE ED: As noted above. IMAGING: Chest x-ray (my reading) shows diffused increased interstitial markings, possible small blunting of both angles. ECHOCARDIOGRAM: The left ventricular systolic function is mildly decreased. The visually estimated ejection fraction is between 40-45%. - Even with contrast use, unable to accurately assess wall motion. Possibly septal, basal inferior hypokinesis. - There is mild aortic valve stenosis. - There is mild mitral annular calcification. - Mild pulmonary hypertension is present. IMPRESSION: 1. Acute on chronic kidney injury. Etiology unclear, associated with hyperkalema 2. Probable fluid overload (by JVD, echo, and BNP). 3. Possible mild pulmon edema on CXR. 4. Hyperkalemia. 5. Elevated troponin consistent with NSTEMI Hospital course: She was first admitted through the ICU and underwent urgent dialysis for correction of hyperkalemia, Her potassium has since corrected and at 4.0 today for CKD she maybe progressing to ESRD and has been dialysed twice now since 12/13/20. Her Creatinine is now 3.92 down from 9.6 when she presented on 12/13. She is being followed by Dr. Morse and the next plan is for her to have tunneled catheter placed for permanent dialysis. For NSTEMI--she's medically treated with IV heparin, statin, Metoprolol (She was on Coreg at home), she presently is hemodynamically stable, she will be transfered to [facility] for cardiac cath today New AFIB--presently rate controlled, and anticoagulated with Heparin, ultimately, she will need to be transitioned to Oral anticoagulation such as Eliquis 2.5 bid HLD--Lipitor 80 Of note this patient doesn't want any health information communicated with Critical care time: 90 min. Time Spent with Patient Time attestation: Total time spent providing and/or coordinating discharge services: Discharge coordination time: Greater than 30 minutes Physical Exam Vital Signs: Vital Signs: Last Vital Signs Temp 98.4 F 12/17/20 11:13 Pulse 98 12/17/20 11:13 Resp 19 12/17/20 11:13 BP 137/84 12/17/20 11:13 Pulse Ox 99 12/17/20 11:13 Oxygen Flow Rate 0 12/13/20 17:10 Body Mass Index 22.6 Constitutional Awake and Alert, No apparent distress Neck Supple, No lymphadenopathy Cardiovascular iregula iregul, No pedal edema Respiratory Lungs clear, No respiratory distress Gastrointestinal Non tender, Non-distended Skin No rash Neurological Alert & oriented x3 Psychological Appropriate affect DS: Data Data Completed and Pending Labs on day of discharge: Laboratory Results - last 24 hr 12/16/20 12/17/20 12/17/20 16:14 05:52 05:52 WBC 15.6 H RBC 3.37 L Hgb 10.1 L Hct 30.7 L MCV 91.1 MCH 30.0 MCHC 32.9 RDW 14.6 Plt Count 191 MPV 11.0 Immature Gran % (Auto) 2.1 H Neut % (Auto) 70.9 Lymph % (Auto) 16.5 L [place] % (Auto) 9.4 Eos % (Auto) 1.0 Baso % (Auto) 0.1 Lymph # (Auto) 2.6 [place] # (Auto) 1.5 H Eos # (Auto) 0.2 Baso # (Auto) 0.0 Abs Immat Gran (auto) 0.32 H Absolute Neuts (auto) 11.1 H Absolute Nucleated RBC 0.020 H Nucleated RBC % (auto) 0.1 PT 12.0 INR 1.0 APTT Cancelled PTT (Heparin Protocol) 48.1 L D VBG pH VBG pCO2 VBG pO2 VBG HCO3 VBG O2 Saturation VBG Base Excess Sodium Potassium Chloride Carbon Dioxide Anion Gap BUN Creatinine Estim Creat Clear Calc Estimated GFR POC Glucose 197 H Random Glucose Calcium Phosphorus Magnesium Total Bilirubin Direct Bilirubin AST ALT Alkaline Phosphatase B-Natriuretic Peptide Total Protein Albumin 12/17/20 12/17/20 12/17/20 05:52 05:52 05:54 WBC RBC Hgb Hct MCV MCH MCHC RDW Plt Count MPV Immature Gran % (Auto) Neut % (Auto) Lymph % (Auto) [place] % (Auto) Eos % (Auto) Baso % (Auto) Lymph # (Auto) [place] # (Auto) Eos # (Auto) Baso # (Auto) Abs Immat Gran (auto) Absolute Neuts (auto) Absolute Nucleated RBC Nucleated RBC % (auto) PT INR APTT PTT (Heparin Protocol) VBG pH 7.36 VBG pCO2 36 VBG pO2 41 VBG HCO3 20 L VBG O2 Saturation 68.0 VBG Base Excess TNP Sodium 135 Potassium 4.0 Chloride 101 Carbon Dioxide 19 L Anion Gap 19 BUN 46 H Creatinine 3.92 H Estim Creat Clear Calc 11.1 Estimated GFR 11 POC Glucose Random Glucose 101 Calcium 7.1 L Phosphorus 3.9 Magnesium 2.0 Total Bilirubin 0.5 Direct Bilirubin 0.2 AST 10 ALT 8 Alkaline Phosphatase 59 B-Natriuretic Peptide 1757 H Total Protein 6.4 L Albumin 3.3 L Preliminary micro results at discharge 12/15/20 00:01 Blood Culture - Preliminary Blood - Venous No growth after 48 hours. 12/14/20 23:58 Blood Culture - Preliminary Blood - Venous No growth after 48 hours. 12/13/20 07:15 Blood Culture - Preliminary Blood - Venous No growth after 48 hours. 12/13/20 07:20 Blood Culture - Preliminary Blood - Venous No growth after 48 hours. Discharge Plan Discharge Anticipated Discharge Date/Time: 12/17/20 12:30 Patient Disposition: Xfer Acute Care Hospital Discharge Diagnosis: NSTEMI, AFIB, Referrals: [facility] [Outside] - 1 Week Physician,Unknown [Primary Care Provider] - 1 Week Discharge Medications: New atorvastatin 80 mg Tablet 80 mg PO BEDTIME Qty: 30 RF: 0 acetaminophen 325 mg Tablet 650 mg PO Q6H PRN (Reason: Pain, Mild (Pain Scale 1-3)) Qty: 30 RF: 0 sevelamer HCl [Renagel] 800 mg Tablet 800 mg PO TIDWM Qty: 60 RF: 0 aspirin 81 mg Tablet,Delayed Release (Dr/Ec) 81 mg PO DAILY Qty: 3 RF: 0 sodium bicarbonate 650 mg Tablet 650 mg PO TID Qty: 60 RF: 0 heparin (porcine) 5,000 unit/mL Solution 2,400 unit IVPUSH BOLUS PRN (Reason: 40 Unit/Kg - Heparin Protocol) Qty: 1 RF: 0 heparin(porcine) in 0.45% NaCl 25,000 unit/250 mL Parenteral Solution 25,000 unit continuous IV infusion .Q0M Qty: 250 RF: 0 Continued carvedilol 25 mg tablet 25 mg PO BID RF: 0 calcitriol 0.5 mcg capsule 0.5 mcg PO DAILY RF: 0 Discontinued cefuroxime axetil 250 mg tablet 250 mg PO BID 7 Days Qty: 14 RF: 0 prednisone 20 mg tablet 20 mg PO DAILY Qty: 18 RF: 0 furosemide 40 mg tablet 40 mg PO DAILY RF: 0 Discharge Orders: Discharge Order (Routine); Ordered 12/17/20 Ordered By: Baudilio Sanchez Diet: advance to usual diet Activity on Discharge: As tolerated Stand Alone Forms: Patient Portal Discharge page Care Plan Goals: Transfer to [facility] for further cardiac testing including cardiac catheterization. Health Concerns: Acute GA, atrial fibrillation, end-stage renal disease that is not requiring hemodialysis. Plan of Treatment: Transfer to [facility] as stated above. Assessment: Patient with a new atrial fibrillation, NSTEMI, renal failure that has progressed to end-stage renal disease is not requiring dialysis. Discharge Date/Time: 12/17/20 20:47
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
[2020-12-17 14:16] LABS: PTT Heparin Drip 63.9 SEC (53-77.9)
[2020-12-17 15:09] VITALS: BP 118/69; PULSE 96; RESP 18; TEMP 36.8; O2SAT 99
[2020-12-17 19:35] VITALS: BP 116/75; PULSE 98; RESP 18; TEMP 37.3; O2SAT 98
[2020-12-17] MEDS: Acetaminophen 325 MG TABLET 650 MG PO (20:39)
[2020-12-17 20:44] LABS: PTT Heparin Drip 60.8 SEC (53-77.9)
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
--- NOTE | 2021-01-14 11:58 | CONS_ITS ---
DATE OF SERVICE: 12/13/2020 REASON FOR CONSULTATION: Evaluation of acute kidney injury superimposed on CKD. HISTORY OF PRESENT ILLNESS: Maryam is a very nice 70-year-old female who has a longstanding history of chronic kidney disease stage 4 with longstanding history of proteinuria, hypertension, and cardiomyopathy, who reports increased shortness of breath for the past couple of weeks with worsening of symptoms in the last couple of days. She reports that she was not able to breathe while doing her regular activities at home. She went to her primary physician. She was diagnosed with acute bronchitis, was prescribed prednisone 60 mg tapering dose and cefuroxime 250 mg twice a day. Along with this, she was taking her diuretics including furosemide 40 mg twice a day. Over the past couple of years, Maryam's renal function has been slowly deteriorating. Her creatinine has been in average 3-4.2 mg/dL, she has slowly progressed over the course of the previous couple of years. Unfortunately, her proteinuria workup was unrevealing. She was tested for serum protein and immunoelectrophoresis, which showed no evidence of monoclonal proteins. She did not have any autoimmune disorders or vasculitis. It is likely that it is all related to chronic burn out glomerulonephritis versus FSGS. Over the past couple of weeks, as the symptoms have worsened, she has now returned to the hospital with symptoms that are consistent with acute infectious processes versus acute cardiac ischemic event. She is being worked up in the emergency room. The concern also lays on the possibility of pulmonary embolism. PAST MEDICAL HISTORY: As mentioned above includes CKD stage 4/5, hypertensive disorder, proteinuria, gastroesophageal reflux disease, hypertension, recent diagnosis of acute bronchitis, renal hyperparathyroidism and metabolic acidosis. OUTPATIENT MEDICATIONS: Amlodipine 10 mg daily, calcitriol 0.5 mcg every other day, carvedilol 25 mg twice a day, vitamin D 47966 units once a week, furosemide 40 mg twice a day, sodium bicarbonate 650 mg twice daily. ALLERGIES: ATENOLOL AND DULOXETINE. SOCIAL HISTORY: She smokes 1-2 cigarettes daily. In the past, she used to smoke heavily. Denies any alcohol intake or illicit drugs. FAMILY HISTORY: Noncontributory. REVIEW OF SYSTEMS: She feels very fatigued and tired. Denies any headache, visual changes, hallucinations. Reports chest pain off and on over the past couple of days, denies any hematemesis, bright red blood per rectum or any sources of bleed. Denies any worsening orthopnea, although she has had difficulty breathing mostly with exertion. She reports the lower extremity edema has also improved. Rest of the 10-point review of systems negative. PHYSICAL EXAMINATION: GENERAL: She is alert, in some respiratory distress. She is tachypneic. VITAL SIGNS: Her blood pressure is 127/60, heart rate of 70 per minute, oxygen saturation 97%. Presently, she is on no added oxygen. HEENT: Oral moist mucosa. NECK: Reveals 4-cm jugular venous distention. LUNGS: Decreased breath sounds bilaterally with minimal rales at the bases. HEART: S1, S2. No S3, no S4. No murmurs, rubs, or gallops appreciated. ABDOMEN: Soft, nontender, nondistended. EXTREMITIES: Showed very trace ankle edema. 2+ distal pulses, distal warm extremities noted. NEUROLOGIC: Nonfocal. LABORATORY DATA: [place] [address], hemoglobin 8.0, and platelet count 267,000. Her chemistries showed a sodium of 131, potassium of 6.4, bicarbonate of 10, BUN 143, creatinine 9.63 mg/dL. Lactate level is normal at 0.5. Calcium 7.1, glucose 123, troponin 1941, BNP level 1838. IMAGING STUDIES: So far, chest x-ray showed no evidence of consolidation, however, there is bronchial wall thickening noted. Doppler of the lower extremities showed no evidence of DVT on the lower extremities. COVID test has been negative per reports. IMPRESSIONS: Ms. Ramos is a very pleasant 70-year-old female with known medical history of advanced chronic kidney disease, hypertensive disorder, who was admitted to the hospital for evaluation of acute respiratory distress associated with recent onset of acute bronchitis in a patient with long-term cigarette smoking history, likely underlying chronic obstructive pulmonary disease/lung disease. She has had chest pain off and on with on admission, has been found to have elevated troponin levels in association with volume overload. Along with this, has developed acute kidney injury, creatinine as high as 9.6 mg/dL, high anion gap metabolic acidosis and hyperkalemia. Acute on chronic kidney disease, acute kidney injury, likely secondary to an acute septic episode/pneumonia versus acute cardiogenic from cardiac ischemia. I doubt that this is pulmonary embolism, and does not rule it out 100%. I would consider this if there is no improvement; however, she is oxygenating rather well on 99% on room air. She has had significant severe chronic kidney disease over the past few years, which is progressing and in fact this later episode clearly sticks for an acute component superimposed on advanced chronic kidney disease. Hyperkalemia secondary to acute kidney infection I as mentioned above, decreased distal sodium delivery as well as inability to excrete potassium load associated metabolic acidosis, and transcellular cysts. Anemia has been noted as well, which likely is the result of both Bassem Walters MD AFJustin/MODL / [id number]
== END 2020-12-17 20:47 | disposition short-term general hospital (02) | DRG 280 ==
LOC: HO.ED 14:08 → HO.EDOVER 15:55 → HO.ICU 17:13 → HO.IMC 12-15 13:34
PROVIDERS: Emergency Medicine Emergency Medical Services; Internal Medicine; Internal Medicine Cardiovascular Disease; Internal Medicine Nephrology; Physician Assistant; Physician Assistant Medical; Admitting Provider Anesthesiology; Emergency Provider Emergency Medicine; PCP Internal Medicine; Visit Provider Internal Medicine
DX: I21.4 Non-ST elevation (NSTEMI) myocardial infarction (principal); N17.0 Acute kidney failure with tubular necrosis; N18.6 End stage renal disease; I12.0 Hypertensive chronic kidney disease with stage 5 chronic kidney disease or end stage renal disease; E87.2 Acidosis; E87.70 Fluid overload, unspecified; F32.9 Major depressive disorder, single episode, unspecified; Z99.2 Dependence on renal dialysis; K21.9 Gastro-esophageal reflux disease without esophagitis; E87.5 Hyperkalemia; Z96.652 Presence of left artificial knee joint; Z96.611 Presence of right artificial shoulder joint; I48.0 Paroxysmal atrial fibrillation; F17.210 Nicotine dependence, cigarettes, uncomplicated; Z71.6 Tobacco abuse counseling; Z20.822 Contact with and (suspected) exposure to COVID-19; Z79.82 Long term (current) use of aspirin; Z79.899 Other long term (current) drug therapy
CPT/HCPCS: 36415; 36600; 71045; 78580; 80048; 80053; 80076; 81001; 81003; 82947; 83605; 83735; 83880; 84100; 84484; 85007; 85025; 85027; 85060; 85379; 85610; 85730; 86704; 86706; 86850; 86900; 86901; 86923; 87040; 87086; 87340; 87635; 90999; 93005; 93306; 93970; 94640; 94644; 96365; 96366; 96375; 99233; 99285; A9540; J0610; J1170; J1205; J1940; J2405; J2930; P9016

== ENCOUNTER 2022-09-25 04:23 | Emergency (ER) | payer MEDICARE, MEDICAID, SELFPAY ==
--- NOTE | ~2022-09-25 | XR_ITS ---
EXAMINATION: XR CHEST CLINICAL INFORMATION: Chest congestion COMPARISON: 12/14/2011 TECHNIQUE: Frontal view of the chest was obtained. FINDINGS: Right internal jugular hemodialysis catheter terminates in the right atrium. Stable mildly enlarged cardiac silhouette. Pulmonary venous congestion. Chronic diffuse interstitial prominence, and bronchial wall thickening. No pleural effusion or pneumothorax. 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 There are chronic destructive changes of the left humeral head. Status post right glenohumeral arthroplasty. XR/XR chest 1V IMPRESSION: * Cardiomegaly and pulmonary venous congestion without overt edema. * Chronic diffuse interstitial prominence and bronchial wall thickening.
[2022-09-25 04:32] VITALS: BP 162/90; BP 226/106; PULSE 80; PULSE 84; RESP 18; TEMP 36.6; O2SAT 93; O2SAT 95; BMI 21.9
--- NOTE | 2022-09-25 04:39 | ECG_ITS ---
Test Reason : SOB Blood Pressure : / mmHG Vent. Rate : 080 BPM Atrial Rate : 080 BPM P-R Int : 178 ms QRS Dur : 086 ms QT Int : 454 ms P-R-T Axes : 060 -27 141 degrees QTc Int : 523 ms Sinus rhythm with Premature atrial complexes T wave abnormality, consider lateral ischemia Prolonged QT Abnormal ECG When compared with ECG of 14-DEC-2020 10:15, Sinus rhythm has replaced Atrial fibrillation Non-specific change in ST segment in Anterior leads Nonspecific T wave abnormality, improved in Inferior leads T wave inversion less evident in Anterolateral leads Referred By: Generic ED Physician Electronically Signed By:SAMMY GARZA MD
[2022-09-25 05:03] LABS: MANUAL DIFF FLAG NO
[2022-09-25 05:06] LABS: Basophils Absolute Auto 0.1 X10*3/uL (0.0-0.2); Basophils Percent Auto 0.7 % (0-2); Eosinophils Absolute Auto 0.1 X10*3/uL (0.0-0.4); Eosinophils Percent Auto 1.6 % (0-4); Hematocrit 38.9 % (37.0-47.0); Hemoglobin 12.4 g/dl (12.0-16.0); Imm Gran Abs Auto 0.04 X10*3/uL (0.00-0.03); Imm Gran Pct Auto 0.6 % (0.0-0.4); Lymphocytes Absolute Auto 2.1 X10*3/uL (1.2-4.9); Lymphocytes Percent Auto 31.5 % (20-40); Mean Corpuscular HGB Conc 31.9 g/dl (31.0-35.0); Mean Corpuscular Hemoglobin 30.4 pg (27.0-33.0); Mean Corpuscular Volume 95.3 fL (80.0-98.0); Mean Platelet Volume 10.3 fL (9.4-12.3); Monocytes Absolute Auto 0.7 X10*3/uL (0.1-1.2); Monocytes Percent Auto 9.9 % (2-11); Neutrophils Absolute Auto 3.7 x10*3/uL (2.0-8.3); Neutrophils Percent Auto 55.7 % (45-73); Platelet Count 125 X10*3/uL (160-400); Red Blood Count 4.08 X10*6/uL (4.20-5.50); Red Cell Distribution Width 15.1 % (11.0-16.0); White Blood Count 6.7 X10*3/uL (4.8-10.8)
[2022-09-25 05:13] LABS: Lactic Acid 0.8 mmol/L (0.5-2.0)
[2022-09-25 05:20] LABS: Alanine Aminotransferase 7 U/L (0-31); Albumin Level 3.4 g/dL (3.5-5.0); Alkaline Phosphatase 87 U/L (39-117); Anion Gap 15 (12-20); Aspartate Amino Transferase 17 U/L (5-31); Bilirubin Total 0.5 mg/dL (0.0-1.0); Blood Urea Nitrogen 16 mg/dL (9-16); Calcium 9.1 mg/dL (8.4-10.2); Carbon Dioxide 29 mmol/L (22-29); Chloride 101 mmol/L (96-108); Creatinine Clr Calc Pharmacy 14.6; Estimated Glomerular Filt Rate 16; Glucose Random 96 mg/dL (60-115); Potassium 3.4 mmol/L (3.3-5.1); Sodium 142 mmol/L (135-145); Total Protein 6.8 g/dL (6.5-8.0)
[2022-09-25 05:22] LABS: Troponin-I High Sensitivity 36.5 ng/L (<3.5-17.0)
--- OUTSIDE RECORDS SUMMARY | 2022-09-25 05:33 | XMS_ITS | Continuity of Care Document ---
:1950 Author Organization [facility] Address [address] [place] [phone]- Care Team Providers Name Role Phone Silke Pal MD Primary Care Physician Encounter [facility] Date(s): 08/23/21 - 09/22/21 [facility] [address] [place] [id number]- [place] Allergies, Adverse Reactions, Alerts Substance Reaction Severity Status atenolol Cardiac Palpitations Active doxycycline Active Adderall Active Duloxetine diarrhea Active Immunizations Given and Recorded Vaccine Date Status Refusal Reason SARS-CoV-2 (COVID-19) mRNA-1273 vaccine 06/18/21 Recorded influenza virus vaccine, inactivated 06/04/21 Recorded influenza virus vaccine, inactivated1 05/31/17 Given influenza virus vaccine, inactivated 06/23/16 Given influenza virus vaccine, inactivated 06/29/15 Given influenza virus vaccine, inactivated 05/19/14 Given influenza virus vaccine, inactivated 04/26/13 Given influenza virus vaccine, inactivated2 09/13/12 Given tetanus-diphtheria toxoids (Td) 04/13/19 Recorded pneumococcal 13-valent vaccine 12/31/14 Given pneumococcal 13-valent vaccine3 12/31/14 Given pneumococcal 23-valent vaccine 01/21/14 Given tetanus/diphtheria/pertussis, acel(Tdap) 09/13/12 Given 1Result Comment: [05/31/2017] [id number] Note: 1-13 STOP AND SHOP [id number] Comment: [12/31/2014 Uncharted] PUT IN TWICE Medications acetaminophen 325 mg oral tablet 975 mg, 3, tablet, By Mouth, Every 6 hours, PRN, Refills 0, Maintenance, Pain , Severe, 03/16/21 7:24:00 EDT, Partial fill upon patient request if the prescription is for a schedule II opioid drug. Start Date: 03/16/21 Status: Orderedacetaminophen 325 mg oral tablet 975 mg, 3, tablet, By Mouth, Every 6 hours, Refills 0, Maintenance, 01/04/21 15:36:00 EDT, Partial fill upon patient request if the prescription is for a schedule II opioid drug. Start Date: 01/04/21 Status: Orderedamiodarone 200 mg oral tablet 200 mg, 1, tablet, By Mouth, Daily, # 90 tablet, Refills 0, Maintenance, 02/03/21 8:27:00 EDT, Partial fill upon patient request if the prescription is for a schedule II opioid drug. Start Date: 02/03/21 Status: OrderedamLODIPine 10 mg oral tablet 1 tablet = 10 mg, By Mouth, Daily, # 30 tablet, 0 Refills, Maintenance, 05/14/21 9:20:00 EDT, Tablet, Partial fill upon patient request if the prescription is for a schedule II opioid drug. Start Date: 05/14/21 Status: Orderedaspirin 81 mg oral delayed release tablet 81 mg, 1, tablet, By Mouth, Daily, # 30 tablet, Refills 0, Maintenance, 01/13/21 11:39:00 EDT, Partial fill upon patient request if the prescription is for a schedule II opioid drug. Start Date: 01/13/21 Status: Orderedaspirin 81 mg oral delayed release tablet 81 mg, 1, tablet, By Mouth, Daily, # 30 tablet, Refills 0, Maintenance, 12/17/20 23:02:00 EDT, Partial fill upon patient request if the prescription is for a schedule II opioid drug. Start Date: 12/17/20 Status: Orderedatorvastatin 80 mg oral tablet 1 tablet = 80 mg, By Mouth, Daily at bedtime, # 90 tablet, 0 Refills, Maintenance, 01/13/21 11:41:00EDT, Tablet, Partial fill upon patient request if the prescription is for a schedule II opioid drug. Start Date: 01/13/21 Status: Orderedatorvastatin 80 mg oral tablet 1 tablet = 80 mg, By Mouth, Daily at bedtime, # 30 tablet, 0 Refills, Maintenance, 01/04/21 15:38:00EDT, Tablet, [facility], Partial fill upon patient request if the prescription is for a schedule II opioid drug., 160, cm, 01/04/21 12:4... Start Date: 01/04/21 Status: OrderedCarvedilol 25 mg, By Mouth, 2 times a day, Refills 0, Maintenance, 09/20/21 17:07:00 EST, Partial fill upon patient request if the prescription is for a schedule II opioid drug. Start Date: 09/20/21 Status: OrderedEliquis 2.5 mg oral tablet See Instructions, TAKE 1 TABLET BY MOUTH TWO TIMES A DAY, # 56 tablet, 10 Refills, [facility], 162, cm, 07/06/21 9:31:00 EST, Height, 57, kg, 03/09/21 16:10:00 EDT, Dry Weight Start Date: 09/01/21 Status: Orderedgabapentin 100 mg oral capsule 100 mg, 1, capsule, By Mouth, 2 times a day, # 90 capsule, Refills 0, Maintenance, 01/13/21 11:40:00EDT, Partial fill upon patient request if the prescription is for a schedule II opioid drug. Start Date: 01/13/21 Status: Orderedgabapentin 100 mg oral capsule 100 mg, 1, capsule, By Mouth, 2 times a day, # 180 capsule, Refills 3, Tot. Refills 3, Maintenance, 01/04/21 15:38:00 EDT, Route to Pharmacy Electronically, [facility], 160, cm, 01/04/21 12:45:00 EDT, Height, 60.6, kg, 12/17/20 21:40:00... Start Date: 01/04/21 Stop Date: 12/30/21 Status: Orderedlidocaine 5% topical film Topically, Daily, Patch on Right knee, 0 Refills, Maintenance, 03/16/21 7:25:00 EDT, Patch, Partial fill upon patient request if the prescription is for a schedule II opioid drug. Start Date: 03/16/21 Status: OrderedLisinopril = 20 mg, By Mouth, 2 times a day, 0 Refills, Maintenance, 09/20/21 17:08:00 EST, Partial fill upon patient request if the prescription is for a schedule II opioid drug. Start Date: 09/20/21 Status: OrderedNephrocap Capsule 1, capsule, By Mouth, Daily, Refills 0, Maintenance, 03/16/21 16:22:00 EDT, Capsule, Partial fill upon patient request if the prescription is for a schedule II opioid drug. Start Date: 03/16/21 Status: OrderedNIFEdipine = 30 mg, By Mouth, 2 times a day, 0 Refills, Maintenance, 09/20/21 17:08:00 EST, Partial fill upon patient request if the prescription is for a schedule II opioid drug. Start Date: 09/20/21 Status: Orderedsertraline 100 mg oral tablet 1 tablet = 100 mg, By Mouth, Daily, # 90 tablet, 6 Refills, Maintenance, 03/03/21 9:45:00 EDT, Tablet, [facility], Partial fill upon patient request if the prescription is for a schedule II opioid drug., 160, cm, 03/03/21 9:18:00 EDT, He... Start Date: 03/03/21 Status: Orderedsertraline 100 mg oral tablet 1 tablet = 100 mg, By Mouth, Daily, Maintenance, 03/08/21 19:48:00 EDT, Tablet, Partial fill upon patient request if the prescription is for a schedule II opioid drug. Start Date: 03/08/21 Status: Orderedsevelamer carbonate 800 mg oral tablet 1 tablet = 800 mg, By Mouth, 3 times a day, # 90 tablet, 0 Refills, Maintenance, 01/13/21 11:40:00 EDT, Tablet, Partial fill upon patient request if the prescription is for a schedule II opioid drug. Start Date: 01/13/21 Status: Orderedsevelamer carbonate 800 mg oral tablet 1 tablet = 800 mg, By Mouth, 3 times a day, # 90 tablet, 0 Refills, Maintenance, 01/04/21 15:34:00 EDT, Tablet, [facility], Partial fill upon patient request if the prescription is for a schedule II opioid drug., 160, cm, 01/04/21 12:45:... Start Date: 01/04/21 Status: Orderedthiamine 100 mg oral tablet 100 mg, 1, tablet, By Mouth, Daily, Refills 0, Maintenance, 03/16/21 16:22:00 EDT, Partial fill uponpatient request if the prescription is for a schedule II opioid drug. Start Date: 03/16/21 Status: OrderedtraZODone 50 mg oral tablet TAKE 1 TABLET BY MOUTH EVERY DAY AT BEDTIME NEEDED FOR INSOMNIA Start Date: 08/27/21 Status: Ordered Problem List Condition Effective Dates Status Health Status Informant Acid reflux(Confirmed) Active Allergic rhinitis(Confirmed) Active Anxiety state NOS(Confirmed) Active Atrial fibrillation(Confirmed) Active CABG (Coronary artery bypass grafting) Active planned(Confirmed) Chronic kidney disease (CKD) stage Active G3b/A3(Confirmed) Coronary artery disease(Confirmed) Active Depression, major(Confirmed) Active ESRD - End stage renal Active disease(Confirmed) GERD (gastroesophageal reflux Active disease)(Confirmed) Chronic generalized pain(Confirmed) Active 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) Gout(Confirmed) Active History of smoking - quit Active 1978(Confirmed)1 Hypercholesterolemia(Confirmed) Active Hypertension(Confirmed) Active Hypertensive nephropathy(Confirmed) 09/13/12 Active Insomnia(Confirmed) Active Ischemic cardiomyopathy(Confirmed) Active Nephrotic syndrome due to Active glomerulosclerosis(Confirmed) OA (osteoarthritis) of knee - both Active knees(Confirmed) Osteoarthritis of lumbar Active spine(Confirmed) Osteopenia(Confirmed) Active Peripheral neuropathy(Confirmed) Active Rectal prolapse(Confirmed) Active Vitamin D deficiency(Confirmed) Active 1Quit 1978 Social History Social History Type Response Smoking Status Former smoker entered on: 03/30/18 Sex
--- OUTSIDE RECORDS SUMMARY | 2022-09-25 05:34 | XMS_ITS | Continuity of Care Document ---
:1950 Author Organization [facility] Address [address] [place] [id number]- Care Team Providers Name Role Phone Silke Pal MD Primary Care Physician [place] [facility] 09[place]21[place]21 - 10/21/21 [facility] [address] [place] [address]- Attending Physician: Aniceto Multani Admitting Physician: Aniceto Multani Referring Physician: Aniceto Multani Allergies, Adverse Reactions, Alerts Substance Reaction Severity Status atenolol Cardiac Palpitations Active doxycycline Active Adderall Active Duloxetine diarrhea Active Immunizations Given and Recorded Vaccine Date Status Refusal Reason SARS-CoV-2 (COVID-19) mRNA-1273 vaccine 07/12/21 Recorded SARS-CoV-2 (COVID-19) mRNA-1273 vaccine 06/18/21 Recorded influenza [...] tetanus/diphtheria/pertussis, acel(Tdap) 09/13/12 Given 1Result Comment: [05/31/2017] [id number] Note: 1-13 STOP AND SHOP [id number] Comment: [12/31/2014 Uncharted] PUT IN TWICE Medications [...] tablet, 0 Refills, Maintenance, 01/04/21 15:38:00EDT, Tablet, [facility], Partial fill upon patient request [...] A DAY, # 56 tablet, 10 Refills, [facility], 162, cm, 07/06/21 9:31:00 EST, Height, [...] 01/04/21 15:38:00 EDT, Route to Pharmacy Electronically, [facility], 160, cm, 01/04/21 12:45:00 EDT, [...] 6 Refills, Maintenance, 03/03/21 9:45:00 EDT, Tablet, [facility], Partial fill upon patient request [...] 0 Refills, Maintenance, 01/04/21 15:34:00 EDT, Tablet, [facility], Partial fill upon patient request [...]
--- OUTSIDE RECORDS SUMMARY | 2022-09-25 05:34 | XMS_ITS | Continuity of Care Document ---
:1950 Author Organization [facility] Address [address] [place] [id number]- Care Team Providers Name Role Phone Silke Pal MD Primary Care Physician [place] [facility] [place] - 09/20/[address] [address]- Discharge Disposition: A-D/C Walkout Attending Physician: Not on Staff, Attending MD Admitting Physician: Not on Staff, Admitting MD Referring Physician: Not on Staff, Referring MD Allergies, Adverse Reactions, Alerts Substance Reaction Severity Status atenolol Cardiac Palpitations Active doxycycline Active Adderall Active Duloxetine diarrhea Active Immunizations Given and Recorded Vaccine Date Status Refusal Reason SARS-CoV-2 (COVID-19) mRNA-1273 vaccine 01/28/22 Recorded SARS-CoV-2 (COVID-19) mRNA-1273 vaccine 07/12/21 Recorded SARS-CoV-2 [...] tetanus/diphtheria/pertussis, acel(Tdap) 09/13/12 Given 1Result Comment: [05/31/2017] [id number] Note: 1-13 STOP AND SHOP [id number] Comment: [12/31/2014 Uncharted] PUT IN TWICE Medications acetaminophen 325 mg oral tablet 650 mg, 2, tablet, By Mouth, Every 6 hours, PRN, Refills 0, Maintenance, pain/fever >100F, 01/04/21 15:36:00 EDT, ; Start Date: 01/04/21 Status: OrderedamLODIPine 10 mg oral tablet 1 tablet = 10 mg, By Mouth, Daily, 0 Refills, Maintenance, 05/14/21 9:20:00 EDT, Tablet, ; Start Date: 05/14/21 Status: Orderedaspirin 81 mg oral delayed release tablet 81 mg, 1, tablet, By Mouth, Daily, Refills 0, Maintenance, 06/27/22 1:42:00 EST, ; Start Date: 06/27/22 Status: Orderedatorvastatin 80 mg oral tablet 1 tablet = 80 mg, By Mouth, Daily at bedtime, 0 Refills, Maintenance, 05/26/22 13:28:00 EDT, Tablet,; Start Date: 05/26/22 Status: Orderedbisacodyl 10 mg rectal suppository 1 supp = 10 mg, Rectally, Daily, PRN for constipation, if no BM in 3 days, Maintenance, 06/27/22 9:36:00 EST, Suppository, ; Start Date: 06/27/22 Status: Orderedcarvedilol 6.25 mg oral tablet 6.25 mg, 1, tablet, By Mouth, 2 times a day, Refills 0, Maintenance, 06/13/22 13:35:00 EDT, ; Start Date: 06/13/22 Status: OrderedcloNIDine 0.2 mg/24 hr transdermal film, extended release 1 patch, Topically, Every week, on Monday, 0 Refills, Maintenance, 10/28/21 17:37:00 EDT, Patch, ; Start Date: 10/28/21 Status: OrderedEliquis 2.5 mg oral tablet 1 tablet, By Mouth, 2 times a day, # 56 tablet, 10 Refills, Maintenance, 09/20/22 8:15:00 EST, [facility], 162.5, cm, 06/28/22 11:05:00 EST, Height, 56, kg, 06/28/22 10:26:00 EST, Dry Weight Start Date: 09/20/22 Status: OrderedFleet Enema 19 gm-7 gm rectal enema 1 each, Rectally, Once, PRN for constipation, Maintenance, 06/27/22 9:36:00 EST, Enema, ; Start Date: 06/27/22 Status: Orderedlisinopril 20 mg oral tablet 20 mg, 1, tablet, By Mouth, Daily, Maintenance, 06/27/22 9:38:00 EST, ; Start Date: 06/27/22 Status: Orderedloperamide 2 mg oral tablet 1 tablet = 2 mg, By Mouth, Daily, PRN as needed, Maintenance, 06/27/22 9:38:00 EST, ; Start Date: 06/27/22 Status: OrderedMiraLax oral powder for reconstitution = 17 Gm, By Mouth, Daily, PRN Constipation, dissolve in water before taking, Maintenance, 06/27/22 9:37:00 EST, REC Powder, ; Start Date: 06/27/22 Status: OrderedoxyCODONE 5 mg oral tablet 2.5 mg, 0.5, tablet, By Mouth, Every 6 hours, PRN, Refills 0, Tot. Refills 0, Maintenance, Pain , Moderate, 06/13/22 13:36:00 EDT, ; Start Date: 06/13/22 Stop Date: 06/16/22 Status: Orderedsevelamer carbonate 800 mg oral tablet 2 tablet = 1,600 mg, By Mouth, 2 times a day, on Monday, Monday & Monday AM & PM , 0 Refills, Maintenance, 04/29/22 10:40:00 EDT, Tablet, ; Start Date: 04/29/22 Status: Orderedsevelamer hydrochloride 800 mg oral tablet 2 tablet = 1,600 mg, By Mouth, 3 times a day before meals, on monday, , Monday & s, Maintenance, 06/27/22 9:40:00 EST, Tablet, ; Start Date: 06/27/22 Status: OrderedtraZODone 100 mg oral tablet 100 mg, 1, tablet, By Mouth, Daily at bedtime, Refills 0, Maintenance, 05/16/22 8:26:00 EDT, ; Start Date: 05/16/22 Status: Ordered Problem List Condition Confirmation Course Effective Status Health Informa nt Dates Status Allergic rhinitis Confirmed Active Anxiety state NOS Confirmed Active Atrial fibrillation Confirmed Active CABG (Coronary artery Confirmed Active bypass grafting) planned Chronic kidney disease Confirmed Active (CKD) stage G3b/A3 CAD in [place] artery Confirmed Active Depression, major Confirmed Active ESRD - End stage renal Confirmed Active disease KATHY (generalized Confirmed Active anxiety disorder) Chronic generalized Confirmed Active pain Chronic Confirmed Active glomerulonephritis due to nodular glomerulosclerosis Gout Confirmed Active Heart failure with Confirmed Active preserved ejection fraction History of smoking - Confirmed Active quit Hyperlipidemia Confirmed Active Hypertension Confirmed Active Hypertensive Confirmed 09/13/12 Active nephropathy Insomnia Confirmed Active Ischemic cardiomyopathy Confirmed Active Nephrotic syndrome due Confirmed Active to glomerulosclerosis OA (osteoarthritis) of Confirmed Active knee - both knees Osteoarthritis of Confirmed Active lumbar spine Osteopenia Confirmed Active Peripheral neuropathy Confirmed Active Rectal prolapse Confirmed Active Vitamin D deficiency Confirmed Active 1Quit 1978 Results Radiology Reports Exam Date Time Procedure Performing Provider Status 09/20/22 1:47 PM Chest 2 Views Frontal and Lat Amanda , Nathalie; Au th (Verified) Notes:(Chest 2 Views Frontal and Lat) Reason For Exam: Shortness of Breath RESULT: Chest 2 Views Frontal and Lat Chest 2 Views Frontal and Lat Refer to EMR; Hx of Present Illness: Patient reports bleeding from A-V fistula in left arm after dialysis today. 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 Patient reports SOB BECKER and prod cough x 5 days. Has been taking amoxicillin as directed. Takes Eliquis.; Reason: Shortness of Breath; Clinical Question(s): Pneumonia; Special Instructions: This is a protocol film and radiologist COMPARISON: 06/08/2022. FINDINGS: LINES AND TUBES: Right IJ central venous catheter with tip projecting over the right atrium, unchanged. LUNGS AND PLEURA: Diffuse prominence of the vascular markings, increased. No focal consolidation. Trace bilateral pleural effusions. No pneumothorax. HEART, MEDIASTINUM AND DELFINO: Mild prominence of the cardiac silhouette, unchanged. Postsurgical changes from prior median sternotomy. Left atrial appendage clip. Normal mediastinal and hilar contour. BONES AND SOFT TISSUES: Right shoulder arthroplasty. Old left rib fractures. Chronic deformity of the left proximal humerus IMPRESSION: Mild pulmonary edema with trace bilateral pleural effusions. WSN: [id number] Ordering Physician: Isabella Rogers Dictated By: Saskia Joseph MD Dictated Date/Time: 09/20/22 2:29 pm Reviewed By: Saskia Joseph MD Signed By: Saskia Joseph MD Signed Date/Time: 09/20/22 2:29 pm Transcribed By: JOHN Transcribed Date/Time: 09/20/22 2:27 pm Vital Signs Most recent to oldest [Reference 1 2 3 Range]: Oxygen Saturation [94-100 %] 98 % 100 % 100 % (09/20/22 7:44 PM) (09/20/22 6:20 PM) (09/20/22 4:35 P M) Pulse Rate [55-90 bpm] 64 bpm 74 bpm 65 bpm (09/20/22 7:44 PM) (09/20/22 6:20 PM) (09/20/22 4:35 P M) Blood Pressure [90-138/55-84 mm 142/72 mm Hg 153/108 mm Hg 178/70 mm Hg Hg] *H* *H* *H* (09/20/22 7:44 PM) (09/20/22 6:20 PM) (09/20/22 4:35 P M) Respiratory Rate [16-30 br/min] 16 br/min 18 br/min 18 br/min (09/20/22 3:43 PM) (09/20/22 2:32 PM) (09/20/22 12:59 PM) Temperature [96.8-100.4 DegF] 97.6 DegF 99.7 DegF 98 .6 DegF (09/20/22 7:44 PM) (09/20/22 6:20 PM) (09/20/22 4:35 P M) Liters per Minute 0 L/min (09/20/22 12:08 PM) Mode of Delivery (Oxygen) Room air Room air Room a ir (09/20/22 7:44 PM) (09/20/22 6:20 PM) (09/20/22 4:35 P M) Blood pressure sites Arm, right Arm, right Arm, right (09/20/22 7:44 PM) (09/20/22 6:20 PM) (09/20/22 4:35 P M) Temperature Route Oral Oral Oral (09/20/22 7:44 PM) (09/20/22 6:20 PM) (09/20/22 4:35 P M) Social History Social History Type Response Smoking Status Former smoker, quit more padmini n 30 days ago; Never; Other: qquit smoking 1 ppd in 1979 and then occasional 1-3 cigarettes on occasion, last cigarette prior to May; entered on: 06/27/22 Sex Note BHSPowerscribe , CIS S: TRANSCRIBE Saskia Joseph MD: VERIFY Event Display: Result: Authored Date: [id number] Chest 2 Views Frontal and Lat Refer to EMR; Hx of Present Illness: Patient reports bleeding from A-V fistula in left arm after dialysis today. 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 Patient reports SOB BECKER and prod cough x 5 days. Has been taking amoxicillin as directed. Takes Eliquis.; Reason: Shortness of Breath; Clinical Question(s): Pneumonia; Special Instructions: This is a protocol film and radiologist COMPARISON: 06/08/2022. FINDINGS: LINES AND TUBES: Right IJ central venous catheter with tip projecting over the right atrium, unchanged. LUNGS AND PLEURA: Diffuse prominence of the vascular markings, increased. No focal consolidation. Trace bilateral pleural effusions. No pneumothorax. HEART, MEDIASTINUM AND DELFINO: Mild prominence of the cardiac silhouette, unchanged. Postsurgical changes from prior median sternotomy. Left atrial appendage clip. Normal mediastinal and hilar contour. BONES AND SOFT TISSUES: Right shoulder arthroplasty. Old left rib fractures. Chronic deformity of the left proximal humerus IMPRESSION: Mild pulmonary edema with trace bilateral pleural effusions. WSN: [id number] Ordering Physician: Isabella Rogers Dictated By: Saskia Joseph MD Dictated Date/Time: 09/20/22 2:29 pm Reviewed By: Saskia Joseph MD Signed By: Saskia Joseph MD Signed Date/Time: 09/20/22 2:29 pm Transcribed By: JOHN Transcribed Date/Time: 09/20/22 2:27 pm Patient Care team information Care Team PersonnelName: Quan Virgen RN Position: S RN Member Role: Primary Care Nurse Name: Susana Chaney LPN Position: S RN Member Role: Primary Care Nurse Name: Betty Cabrera NP Position: [facility] Associate Professional Member Role: Primary Care Nurse Address: Address: [address] [place], [place] - [place] Name: Uma Ndiaye Position: S Outreach Member Role: Lifetime Consulting Physician Name: Kirk Morse DO Position: [facility] Renal MD Member Role: Lifetime Consulting Physician Address: Address: [address] [facility] [place] [place] [address]- [place] Name: BonifacioSarabjit lozoyaica Position: [facility] Outreach Member Role: Lifetime Consulting Physician Name: Janelle Arora RN Position: [facility] RN Member Role: Primary Care Nurse Name: Prasanna Belle III, RN Position: [facility] RN Member Role: Primary Care Nurse Name: Suellen Lazcano RN Position: [facility] ED RN W/OE and Tasks Member Role: Primary Care Nurse Name: Rubia Pardo LPN Position: [facility] RN Member Role: Primary Care Nurse Name: Florencio Ferreira MD Position: [facility] Renal MD Member Role: Lifetime Consulting Physician Address: Address: [address] [facility] [place] [address]- [place] Name: Priscila López RN Position: [facility] RN Member Role: Primary Care Nurse Name: Silke Pal MD Position: [facility] Primary Care Physician Member Role: PCP Address: Address: [address] [place] [address]- Name: Bonnie Ann RN Position: [facility] RN Member Role: Primary Care Nurse Name: Felipa Burr RN Position: [facility] RN Member Role: Primary Care Nurse Name: Jennifer Alex RN Position: [facility] RN Member Role: Primary Care Nurse Name: Saskia Fontana RN Position: S RN Member Role: Primary Care Nurse Name: Beatris Gaytan RN Position: S RN Member Role: Primary Care Nurse Care Team Related PersonsName: AUDREY HEARN Address: home [address] [place] [address] Name: ABIMAEL HEARN Name: YUSUF HEARN Address: home [address] [place] [address]
--- OUTSIDE RECORDS SUMMARY | 2022-09-25 05:34 | XMS_ITS | Continuity of Care Document ---
:1950 Author Organization [facility] Address [address] [place] [id number]- Care Team Providers Name Role Phone Janelle Kwon Primary Care Physician Encounter [facility] [place] Date(s): 04/27/22 - 05/27/22 [facility] [address] [place] [id number]- [place] Allergies, Adverse Reactions, Alerts Substance Reaction [...] tetanus/diphtheria/pertussis, acel(Tdap) 09/13/12 Given 1Result Comment: [05/31/2017] [id number] Note: 1-13 STOP AND SHOP [id number] Comment: [12/31/2014 Uncharted] PUT IN TWICE Medications acetaminophen 325 mg oral tablet 975 mg, 3, tablet, By Mouth, Every 6 hours, Refills 0, Maintenance, 01/04/21 15:36:00 EDT, Partial fill upon patient request if the prescription is for a schedule II opioid drug. Start Date: 01/04/21 Status: OrderedamLODIPine 10 mg oral tablet 1 tablet = 10 mg, By Mouth, Daily, # 30 tablet, 0 Refills, Maintenance, 05/14/21 9:20:00 EDT, Tablet, Partial fill upon patient request if the prescription is for a schedule II opioid drug. Start Date: 05/14/21 Status: OrderedAspirin Tablet 81 mg, By Mouth, Daily, Refills 0, Maintenance, 05/26/22 13:28:00 EDT, Partial fill upon patient request if the prescription is for a schedule II opioid drug. Start Date: 05/26/22 Status: Orderedatorvastatin 80 mg oral tablet 1 tablet = 80 mg, By Mouth, Daily at bedtime, 0 Refills, Maintenance, 05/26/22 13:28:00 EDT, Tablet,Partial fill upon patient request if the prescription is for a schedule II opioid drug. Start Date: 05/26/22 Status: Orderedcarvedilol 12.5 mg oral tablet 12.5 mg, 1, tablet, By Mouth, 2 times a day, # 180 tablet, Refills 0, Maintenance, 05/16/22 8:25:00 EDT, Partial fill upon patient request if the prescription is for a schedule II opioid drug. Start Date: 05/16/22 Status: OrderedcloNIDine 0.2 mg/24 hr transdermal film, extended release 1 patch, Topically, Every week, # 12 patch, 0 Refills, Maintenance, 10/28/21 17:37:00 EDT, Patch, Partial fill upon patient request if the prescription is for a schedule II opioid drug. Start Date: 10/28/21 Status: OrderedEliquis 2.5 mg oral tablet 1 tablet = 2.5 mg, By Mouth, 2 times a day, # 60 tablet, 0 Refills, Maintenance, 10/28/21 17:38:00 EDT, Tablet, Partial fill upon patient request if the prescription is for a schedule II opioid drug. Start Date: 10/28/21 Status: Orderedgabapentin 100 mg oral capsule 100 mg, 1, capsule, By Mouth, 2 times a day before breakfast and dinne, # 60 capsule, Refills 0, Tot. Refills 0, Maintenance, 05/17/22 13:16:00 EDT, Route to Pharmacy Electronically, [facility], Partial fill upon patient request if the p... Start Date: 05/17/22 Stop Date: 06/16/22 Status: Orderedgabapentin 100 mg oral capsule 200 mg, 2, capsule, By Mouth, Daily at bedtime, # 60 capsule, Refills 0, Tot. Refills 0, Maintenance, 05/17/22 13:17:00 EDT, Route to Pharmacy Electronically, [facility], Partial fill upon patient request if the prescription is for a ramakrishna... Start Date: 05/17/22 Stop Date: 06/16/22 Status: OrderedHYDROmorphone 2 mg oral tablet See Instructions, PRN Pain , Moderate, 1 to 2 mg By Mouth Every 4 hours PRN severe pain, # 30 tablet, 0 Refills, Acute 06/02/22 13:29:00 EDT, 05/26/22 13:28:00 EDT, Tablet, Partial fill upon patient request if the prescription is for a schedule II opi... Start Date: 05/26/22 Stop Date: 06/02/22 Status: OrderedLisinopril = 20 mg, By Mouth, 2 times a day, 0 Refills, Maintenance, 09/20/21 17:08:00 EST, Partial fill upon patient request if the prescription is for a schedule II opioid drug. Start Date: 09/20/21 Status: OrderedMiraLax oral powder for reconstitution = 17 Gm, By Mouth, Daily, for 14 days, dissolve in water before taking, # 238 Gm, 0 Refills, Acute 05/31/22 13:17:00 EDT, 05/17/22 13:17:00 EDT, REC Powder, [facility], Partial fill upon patient request if the prescription is for a sched... Start Date: 05/17/22 Stop Date: 05/31/22 Status: OrderedRobitussin DM Liquid 10 mL, By Mouth, Every 4 hours, PRN Cough, 0 Refills, Maintenance, 05/26/22 13:28:00 EDT, Syrup, Partial fill upon patient request if the prescription is for a schedule II opioid drug. Start Date: 05/26/22 Status: Orderedsertraline 100 mg oral tablet 1 tablet, By Mouth, Daily, # 90 tablet, 4 Refills, Maintenance, 04/21/22 10:23:00 EDT, [facility], 162.56, cm, 02/03/22 10:08:00 EDT, Height, 57.3, kg, 02/03/22 10:08:00 EDT, Dry Weight Start Date: 04/21/22 Status: Orderedsevelamer carbonate 800 mg oral tablet 2 tablet = 1,600 mg, By Mouth, 3 times a day with meals, # 90 tablet, 0 Refills, Maintenance, 04/29/22 10:40:00 EDT, Tablet, Partial fill upon patient request if the prescription is for a schedule II opioid drug. Start Date: 04/29/22 Status: OrderedtraZODone 100 mg oral tablet 100 mg, 1, tablet, By Mouth, Daily at bedtime, # 180 tablet, Refills 0, Maintenance, 05/16/22 8:26:00 EDT, Partial fill upon patient request if the prescription is for a schedule II opioid drug. 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 Gout Confirmed Active History of smoking - quit Confirmed Active Hypercholesterolemia Confirmed Active Hypertension Confirmed Active Hypertensive nephropathy Confirmed 09/13/12 Active Insomnia Confirmed Active Ischemic cardiomyopathy Confirmed Active 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 [address]
--- OUTSIDE RECORDS SUMMARY | 2022-09-25 05:34 | XMS_ITS | Continuity of Care Document ---
:1950 Author Organization [facility] Address [address] [place] [address]- Care Team Providers Name Role Phone Kusum Bradley MD Primary Care Physician Encounter [facility] [place] Date(s): 01/19/21 - 02/18/21 [facility] [address] [place] [id number] Attending Physician: Aniceto Multani Admitting Physician: AdmAniceto beaulieu Referring Physician: AdmtrAniceto Allergies, Adverse Reactions, Alerts Substance Reaction Severity Status atenolol Cardiac Palpitations Active Adderall Active Duloxetine diarrhea Active Immunizations Given and Recorded Vaccine Date Status Refusal Reason influenza virus vaccine, inactivated1 05/31/17 Given influenza virus vaccine, inactivated 06/23/16 Given influenza virus vaccine, inactivated 06/29/15 Given influenza virus vaccine, inactivated 05/19/14 Given influenza virus vaccine, inactivated 04/26/13 Given influenza virus vaccine, inactivated2 09/13/12 Given pneumococcal 13-valent vaccine 12/31/14 Given pneumococcal 13-valent vaccine3 12/31/14 Given pneumococcal 23-valent vaccine 01/21/14 Given tetanus/diphtheria/pertussis, acel(Tdap) 09/13/12 Given 1Result Comment: [05/31/2017] [id number] Note: 1-13 STOP AND SHOP [id number] Comment: [12/31/2014 Uncharted] PUT IN TWICE Medications [...] II opioid drug. Start Date: 02/03/21 Status: Orderedaspirin 81 mg oral delayed release [...] tablet, 0 Refills, Maintenance, 01/04/21 15:38:00EDT, Tablet, [facility], Partial fill upon patient request if the prescription is for a schedule II opioid drug., 160, cm, 01/04/21 12:4... Start Date: 01/04/21 Status: OrderedEliquis 2.5 mg oral tablet 1 tablet = 2.5 mg, By Mouth, 2 times a day, discontinue coumadin, # 60 tablet, 5 Refills, Maintenance, 02/08/21 8:42:00 EDT, Tablet, [facility], 160, cm, 02/03/21 7:53:00 EDT, Height, 60.6, kg, 12/17/20 21:40:00 EDT, Dry Weight Start Date: 02/08/21 Stop Date: 08/07/21 Status: Orderedgabapentin 100 mg oral capsule 100 mg, 1, capsule, By Mouth, 2 times a day, # 180 capsule, Refills 3, Tot. Refills 3, Maintenance, 01/04/21 15:38:00 EDT, Route to Pharmacy Electronically, [facility], 160, cm, 01/04/21 12:45:00 EDT, Height, 60.6, kg, 12/17/20 21:40:00... Start Date: 01/04/21 Stop Date: 12/30/21 Status: Orderedlisinopril 5 mg oral tablet 5 mg, 1, tablet, By Mouth, Daily, # 30 tablet, Refills 6, Tot. Refills 6, Maintenance, 02/03/21 8:27:00 EDT, Route to Pharmacy Electronically, [facility], Partial fill upon patient request if the prescription is for a schedule II opioid... Start Date: 02/03/21 Status: Orderedmetoprolol 100 mg oral tablet, extended release 100 mg, 1, tablet, By Mouth, Daily, # 90 tablet, Refills 0, Maintenance, 02/03/21 7:56:00 EDT, Partial fill upon patient request if the prescription is for a schedule II opioid drug. Start Date: 02/03/21 Status: Orderedmetoprolol 50 mg oral tablet, extended release 50 mg, 1, tablet, By Mouth, Daily, # 30 tablet, Refills 0, Tot. Refills 0, Maintenance, 01/04/21 15:37:00 EDT, Route to Pharmacy Electronically, [facility], Partial fill upon patient request if the prescription is for a schedule II opioi... Start Date: 01/04/21 Status: Orderedsertraline 50 mg oral tablet 1 tablet = 50 mg, By Mouth, Daily, # 30 tablet, 0 Refills, Maintenance, 01/04/21 15:34:00 EDT, Tablet, [facility], Partial fill upon patient request if the prescription is for a schedule II opioid drug., 160, cm, 01/04/21 12:45:00 EDT, H... Start Date: 01/04/21 Stop Date: 02/03/21 Status: Orderedsevelamer carbonate 800 mg oral tablet 1 tablet = 800 mg, By Mouth, 3 times a day, # 90 tablet, 0 Refills, Maintenance, 01/04/21 15:34:00 EDT, Tablet, [facility], Partial fill upon patient request if the prescription is for a schedule II opioid drug., 160, cm, 01/04/21 12:45:... Start Date: 01/04/21 Status: Ordered Problem List Condition Effective Dates [...] Osteoarthritis of lumbar Active spine(Confirmed) Osteopenia(Confirmed) Active Vitamin D deficiency(Confirmed) Active 1Quit 1978 Social History Social History Type Response Smoking Status Former smoker entered on: 03/30/18 Sex
--- OUTSIDE RECORDS SUMMARY | 2022-09-25 05:34 | XMS_ITS | Continuity of Care Document ---
:1950 Author Organization [facility] Address [address] [place] [address]- Care Team Providers Name Role Phone Not on Staff, PCP Primary Care Physician Unavailable [facility] - 02/03/[address] [address] Discharge Disposition: A-D/C Home Attending Physician: Leonid Martínez MD Admitting Physician: Leonid Martínez MD Referring Physician: Leonid Martínez MD Allergies, Adverse Reactions, Alerts Substance Reaction [...] tetanus/diphtheria/pertussis, acel(Tdap) 09/13/12 Given 1Result Comment: [05/31/2017] [id number] Note: 1-13 [facility] [id number] Comment: [12/31/2014 Uncharted] PUT IN TWICE Medications [...] II opioid drug. Start Date: 05/14/21 Status: OrderedCarvedilol 25 mg, By Mouth, 2 times a day, Refills 0, Maintenance, 09/20/21 17:07:00 EST, Partial fill upon patient request if the prescription is for a schedule II opioid drug. Start Date: 09/20/21 Status: OrderedcloNIDine 0.2 mg/24 hr transdermal film, extended release 1 patch, Topically, Every week, # 12 patch, 0 Refills, Maintenance, 10/28/21 17:37:00 EDT, Patch, Partial fill upon patient request if the prescription is for a schedule II opioid drug. Start Date: 10/28/21 Status: OrderedColace sodium 100 mg oral capsule 100 mg, 1, capsule, By Mouth, 2 times a day, # 60 capsule, Refills 0, Tot. Refills 0, Maintenance, 11/01/21 10:43:00 EDT, Route to Pharmacy Electronically, [facility], Partial fill upon patient request if the prescription is for a schedu... Start Date: 11/01/21 Status: OrderedEliquis 2.5 mg oral tablet 1 [...] II opioid drug. Start Date: 01/13/21 Status: OrderedLisinopril = 20 mg, By Mouth, 2 times a day, 0 Refills, Maintenance, 09/20/21 17:08:00 EST, Partial fill upon patient request if the prescription is for a schedule II opioid drug. Start Date: 09/20/21 Status: OrderedoxyCODONE 5 mg oral tablet 5 mg, 1, tablet, By Mouth, Every 6 hours, PRN, for 2 days, # 8 tablet, Refills 0, Tot. Refills 0, Acute 02/05/22 12:53:00 EDT, as needed for pain, 02/03/22 12:53:00 EDT, Route to Pharmacy Electronically, [facility], Partial fill upon pat... Start Date: 02/03/22 Stop Date: 02/05/22 Status: Orderedsertraline 100 mg oral tablet 1 tablet = 100 mg, By Mouth, Daily, Maintenance, 03/08/21 19:48:00 EDT, Tablet, Partial fill upon patient request if the prescription is for a schedule II opioid drug. Start Date: 03/08/21 Status: OrderedtraZODone 50 mg oral tablet TAKE 1 TABLET BY MOUTH EVERY DAY AT BEDTIME NEEDED FOR INSOMNIA Start Date: 08/27/21 Status: Ordered Problem List Condition Effective Dates Status Health Status Informant Allergic rhinitis(Confirmed) Active Anxiety state NOS(Confirmed) Active Atrial fibrillation(Confirmed) Active CABG (Coronary artery bypass grafting) Active planned(Confirmed) Chronic kidney disease (CKD) stage Active G3b/A3(Confirmed) Coronary artery disease(Confirmed) Active Depression, major(Confirmed) Active ESRD - End stage renal Active disease(Confirmed) Chronic generalized pain(Confirmed) Active Chronic glomerulonephritis due [...] Active Vitamin D deficiency(Confirmed) Active 1Quit 1978 Vital Signs Most recent to oldest 1 2 3 [Reference Range]: Height 162.56 cm 162.56 cm (02/03/22 10:08 AM) (02/01/22 2:57 PM) Weight 57.3 kg 56.62 kg (02/03/22 10:08 AM) (02/01/22 2:57 PM) Oxygen Saturation [94-100 98 % 100 % 99 % %] (02/03/22 1:15 PM) (02/03/22 1:00 PM) (02/03/22 11: 00 AM) Pulse Rate [55-90 bpm] 62 bpm 64 bpm 68 bpm (02/03/22 11:00 AM) (02/03/22 10:55 AM) (02/03/22 1 0:08 AM) Body Mass Index 21.68 21.43 [18.5-24.99] (02/03/22 10:08 AM) (02/01/22 2:57 PM) Blood Pressure 172/84 mm Hg 165/81 mm Hg 209/88 mm Hg [90-138/55-84 mm Hg] *H* *H* *H* (02/03/22 1:15 PM) (02/03/22 1:00 PM) (02/03/22 11: 00 AM) Respiratory Rate [16-30 18 br/min 18 br/min 18 br/mi n br/min] (02/03/22 1:15 PM) (02/03/22 1:00 PM) (02/03/22 11: 00 AM) Temperature [96.8-100.4 98.2 DegF 98.8 DegF DegF] (02/03/22 1:00 PM) (02/03/22 10:08 AM) Mode of Delivery (Oxygen) Room air Room air Room a ir (02/03/22 1:45 PM) (02/03/22 1:15 PM) (02/03/22 1:0 0 PM) Blood pressure sites Arm, right Arm, right Arm, right (02/03/22 1:00 PM) (02/03/22 11:00 AM) (02/03/22 10 :55 AM) Temperature Route Temporal Temporal (02/03/22 1:00 PM) (02/03/22 10:08 AM) Dry Weight 57.3 kg 56.62 kg (02/03/22 10:08 AM) (02/01/22 2:57 PM) Weight Obtained Via Standing scale (02/03/22 10:08 AM) Dry Weight Obtained Via Standing scale Patient/family stated (02/03/22 10:08 AM) (02/01/22 2:57 PM) Social History Social History Type Response Smoking Status Former smoker, quit more padmini n 30 days ago; Never entered on: 10/28/21 Sex
--- OUTSIDE RECORDS SUMMARY | 2022-09-25 05:34 | XMS_ITS | Continuity of Care Document ---
:1950 Author Organization [facility] Address [address] [place] [address]- Care Team Providers Name Role Phone Demarco GORMAN, Neville Primary Care Physician [facility] 04[facility]22 - 07/01/22 [facility] [address] [place] [address]- Attending Physician: Janelle Kwon Allergies, Adverse Reactions, Alerts Substance Reaction Severity [...] tetanus/diphtheria/pertussis, acel(Tdap) 09/13/12 Given 1Result Comment: [05/31/2017] [id number] Note: 1-13 [facility] [id number] Comment: [12/31/2014 Uncharted] PUT IN TWICE Medications [...] 2 times a day, 0 Refills, Maintenance, 10/28/21 17:38:00 EDT, Tablet, ; Start Date: 10/28/21 Status: OrderedFleet Enema 19 gm-7 gm rectal [...] before meals, on monday, , Monday & Monday's, Maintenance, 06/27/22 9:40:00 EST, Tablet, ; Start [...] Confirmed Active (CKD) stage G3b/A3 CAD in [place] artery Confirmed Active Depression, major Confirmed Active [...] Vitamin D deficiency Confirmed Active 1Quit 1978 Social History Social History Type Response Smoking Status Former smoker, quit more padmini n 30 days ago; Never; Other: qquit smoking 1 ppd in 1979 and then occasional 1-3 cigarettes on occasion, last cigarette prior to May; entered on: 06/27/22 Sex Patient Care team information Care Team PersonnelName: Quan Virgen RN Position: [facility] RN Member Role: Primary Care Nurse Name: Susana Chaney LPN Position: [facility] RN Member Role: Primary Care Nurse Name: Betty Cabrera NP Position: [facility] Associate Professional Member Role: Primary Care Nurse Address: Address: [address] [place] [id number] Name: Uma Ndiaye Position: [facility] Outreach Member Role: Lifetime Consulting Physician Name: Kirk Morse DO Position: [facility] Renal MD Member Role: Lifetime Consulting Physician Address: Address: [address] [place], [place] [address] [place], [place] [address] Name: Uma Valdovinos Position: [facility] Outreach Member Role: Lifetime Consulting Physician Name: Janelle Arora RN Position: [facility] RN Member Role: Primary Care Nurse Name: Prasanna Belle III, RN Position: [facility] RN Member Role: Primary Care Nurse Name: Suellen Lazcano RN Position: [facility] ED RN W/OE and Tasks Member Role: Primary Care Nurse Name: Rubia Pardo LPN Position: [facility] RN Member Role: Primary Care Nurse Name: Florencio Ferreira MD Position: [facility] Renal MD Member Role: Lifetime Consulting Physician Address: Address: [address] [facility] [place] [address]- [place] Name: Priscila López RN Position: S RN Member Role: Primary Care Nurse Name: Silke Pal MD Position: [facility] Primary Care Physician Member Role: PCP Address: Address: [address] [place] [address] [facility] [place] [address]- Name: Bonnie Ann RN Position: S RN Member Role: Primary Care Nurse Name: Felipa Burr RN Position: [facility] RN Member Role: Primary Care Nurse Name: Jennifer Alex RN Position: S RN Member Role: Primary Care Nurse Name: Saskia Fontana RN Position: S RN Member Role: Primary Care Nurse Name: Beatris Gaytan RN Position: [facility] RN Member Role: Primary Care Nurse Care Team Related PersonsName: AUDREY HEARN Address: home [address] [place] [address] Name: YUSUF HEARN Address: home [address] [place] [address]
--- OUTSIDE RECORDS SUMMARY | 2022-09-25 05:34 | XMS_ITS | Continuity of Care Document ---
:1950 Author Organization [facility] Address [address] [place] [address]- Care Team Providers Name Role Phone Silke Pal MD Primary Care Physician [facility]): 03/02/21 - 04/01/21 [facility] [address] [place] [address]- Allergies, Adverse Reactions, Alerts Substance Reaction Severity [...] tetanus/diphtheria/pertussis, acel(Tdap) 09/13/12 Given 1Result Comment: [05/31/2017] [id number] Note: 1-13 [facility] [id number] Comment: [12/31/2014 Uncharted] PUT IN TWICE Medications [...] tablet, 0 Refills, Maintenance, 01/04/21 15:38:00EDT, Tablet, [facility], Partial fill upon patient request if the prescription is for a schedule II opioid drug., 160, cm, 01/04/21 12:4... Start Date: 01/04/21 Status: OrderedEliquis 2.5 mg oral tablet 1 tablet = 2.5 mg, By Mouth, 2 times a day, discontinue coumadin, # 60 tablet, 5 Refills, Maintenance, 02/08/21 8:42:00 EDT, Tablet, [facility], 160, cm, 02/03/21 7:53:00 EDT, Height, 60.6, kg, 12/17/20 21:40:00 EDT, Dry Weight Start Date: 02/08/21 Stop Date: 08/07/21 Status: Orderedgabapentin 100 mg oral capsule 100 mg, 1, capsule, By Mouth, 2 times a day, # 180 capsule, Refills 3, Tot. Refills 3, Maintenance, 01/04/21 15:38:00 EDT, Route to Pharmacy Electronically, [facility], 160, cm, 01/04/21 12:45:00 EDT, Height, 60.6, kg, 12/17/20 21:40:00... Start Date: 01/04/21 Stop Date: 12/30/21 Status: Orderedlisinopril 10 mg oral tablet 10 mg, 1, tablet, By Mouth, Daily, # 30 tablet, Refills 0, Tot. Refills 0, Maintenance, 03/03/21 9:50:00 EDT, Route to Pharmacy Electronically, [facility], Partial fill upon patient request if the prescription is for a schedule II opioid... Start Date: 03/03/21 Status: Orderedmetoprolol 100 mg oral tablet, extended release 100 mg, 1, tablet, By Mouth, Daily, # 90 tablet, Refills 0, Maintenance, 02/03/21 7:56:00 EDT, Partial fill upon patient request if the prescription is for a schedule II opioid drug. Start Date: 02/03/21 Status: Orderedsertraline 100 mg oral tablet 1 tablet = 100 mg, By Mouth, Daily, # 90 tablet, 6 Refills, Maintenance, 03/03/21 9:45:00 EDT, Tablet, [facility], Partial fill upon patient request if the prescription is for a schedule II opioid drug., 160, cm, 03/03/21 9:18:00 EDT, He... Start Date: 03/03/21 Status: Orderedsevelamer carbonate 800 mg oral tablet 1 tablet = 800 mg, By Mouth, 3 times a day, # 90 tablet, 0 Refills, Maintenance, 01/04/21 15:34:00 EDT, Tablet, [facility], Partial fill upon patient request [...]
--- OUTSIDE RECORDS SUMMARY | 2022-09-25 05:34 | XMS_ITS | Continuity of Care Document ---
:1950 Author Organization [facility] Address [address] [place] [address] [address] [place] [address]- Care Team Providers Name Role Phone Kusum Bradley MD Primary Care Physician [facility]s): 04/13/20 - 05/13/[address] [place] [address] [facility] Attending Physician: Aniceto Multani Admitting Physician: AdmtrAniceto Referring Physician: AdmtrAniceto Allergies, Adverse Reactions, Alerts Substance Reaction Severity Status atenolol Cardiac Palpitations Active Duloxetine diarrhea Active Immunizations Given and [...] tetanus/diphtheria/pertussis, acel(Tdap) 09/13/12 Given 1Result Comment: [05/31/2017] [id number] Note: 1-13 [facility]OP [id number] Comment: [12/31/2014 Uncharted] PUT IN TWICE Medications amLODIPine 10 mg oral tablet 10 mg, 1, tablet, By Mouth, Daily, # 30 tablet, Refills 0, Maintenance, 04/13/20 9:57:00 EDT Start Date: 04/13/20 Status: Orderedcarvedilol 25 mg oral tablet 25 mg, 1, tablet, By Mouth, 2 times a day, # 180 tablet, Refills 3, Tot. Refills 3, Maintenance, 11/14/18 9:54:14 EDT, Route to Pharmacy Electronically, [id number], [facility] Start Date: 11/14/18 Stop Date: 11/09/19 Status: Orderedfurosemide 40 mg oral tablet 40 mg, 1, tablet, By Mouth, Daily, # 30 tablet, Refills 0, Maintenance, 04/13/20 9:57:00 EDT Start Date: 04/13/20 Status: Orderedgabapentin 100 mg oral capsule 100 mg, 1, capsule, By Mouth, 2 times a day, # 180 capsule, Refills 3, Tot. Refills 3, Maintenance, 12/17/18 14:22:03 EDT, Route to Pharmacy Electronically, [id number], [facility] Start Date: 12/17/18 Stop Date: 12/12/19 Status: Orderedsertraline 50 mg oral tablet 1 tablet = 50 mg, By Mouth, Daily, # 30 tablet, 11 Refills, Maintenance, 04/01/19 15:17:57 EDT, Tablet Start Date: 04/01/19 Status: Ordered Problem List Condition Effective Dates Status Health Status Informant Acid reflux(Confirmed) Active Allergic rhinitis(Confirmed) Active Anxiety state NOS(Confirmed) Active Chronic kidney disease (CKD) stage Active G3b/A3(Confirmed) Depression, major(Confirmed) Active GERD (gastroesophageal reflux Active disease)(Confirmed) Chronic generalized pain(Confirmed) Active 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) Gout(Confirmed) Active History of smoking - quit Active 1978(Confirmed)1 Hypercholesterolemia(Confirmed) Active Hypertension(Confirmed) Active Hypertensive nephropathy(Confirmed) 09/13/12 Active Insomnia(Confirmed) Active Nephrotic syndrome due to Active glomerulosclerosis(Confirmed) OA (osteoarthritis) of knee - both Active knees(Confirmed) Osteoarthritis of lumbar Active spine(Confirmed) Osteopenia(Confirmed) Active Vitamin D deficiency(Confirmed) Active 1Quit 1978 Social History Social History Type Response Smoking Status Former smoker entered on: 03/30/18 Sex
--- OUTSIDE RECORDS SUMMARY | 2022-09-25 05:34 | XMS_ITS | Continuity of Care Document ---
:1950 Author Organization [facility] Address [address] [place] [address]- Care Team Providers Name Role Phone Silke Pal MD Primary Care Physician [facility]): 02[facility]22 - 04/07/[address] [address] Attending Physician: Raissa Dubose MD Admitting Physician: Raissa Dubose MD Referring Physician: Raissa Dubose MD Allergies, Adverse Reactions, Alerts Substance Reaction [...] tetanus/diphtheria/pertussis, acel(Tdap) 09/13/12 Given 1Result Comment: [05/31/2017] [id number] Note: 1-13 [facility] [id number] Comment: [12/31/2014 Uncharted] PUT IN TWICE Medications [...] 11/01/21 10:43:00 EDT, Route to Pharmacy Electronically, [facility], Partial fill upon patient request if [...] days ago; Never entered on: 10/28/21 Sex Care Team PersonnelName: Silke Pal MD Address: [address] [place] [address] Adult & Pediatric Medicine [address]
--- OUTSIDE RECORDS SUMMARY | 2022-09-25 05:34 | XMS_ITS | Continuity of Care Document ---
:1950 Author Organization [facility] Address [address] [place] [address]- Care Team Providers Name Role Phone Silke Pal MD Primary Care Physician [facility]): 10/15/21 - 11/14/21 [facility] [address] [place] [address]- Allergies, Adverse Reactions, Alerts Substance Reaction Severity [...] tetanus/diphtheria/pertussis, acel(Tdap) 09/13/12 Given 1Result Comment: [05/31/2017] [id number] Note: 1-13 [facility] [id number] Comment: [12/31/2014 Uncharted] PUT IN TWICE Medications [...] II opioid drug. Start Date: 01/13/21 Status: OrderedCarvedilol 25 mg, By Mouth, 2 [...] 11/01/21 10:43:00 EDT, Route to Pharmacy Electronically, [facility], Partial fill upon patient request [...] II opioid drug. Start Date: 01/13/21 Status: Orderedlidocaine 5% topical film Topically, Daily, [...] II opioid drug. Start Date: 01/13/21 Status: Orderedthiamine 100 mg oral tablet 100 [...] Active History of smoking - quit Active 1978(Confirmed) Hypercholesterolemia(Confirmed) Active Hypertension(Confirmed) Active Hypertensive nephropathy(Confirmed) 09/13/12 [...]
--- OUTSIDE RECORDS SUMMARY | 2022-09-25 05:34 | XMS_ITS | Continuity of Care Document ---
:1950 Author Organization [facility] Address [address] [place] [address]- Care Team Providers Name Role Phone Not on Staff, PCP Primary Care Physician Unavailable Encounter [facility] Date(s): 01/13/21 - 01/17/[address] [address] Encounter Diagnosis CAD (coronary artery disease) (Final) - 01/13/21 Pulmonary edema (Final) - 01/13/21 Dialysis patient (Final) - 01/13/21 Discharge Disposition: Discharged to Hospice-Home (routine care Attending Physician: Jerri Marie MD Admitting Physician: Jude Wallace MD Referring Physician: Not on Staff, Referring MD Allergies, Adverse Reactions, Alerts Substance Reaction Severity Status atenolol Active doxycycline Active Medications acetaminophen 325 mg oral tablet 650 mg, 2, tablet, By Mouth, Every 6 hours, PRN, # 120 tablet, Refills 0, Maintenance, for pain, 01/13/21 11:38:00 EDT, Partial fill upon patient request if the prescription is for a schedule II opioiddrug. Start Date: 01/13/21 Status: Orderedamiodarone 200 mg oral tablet 200 mg, 1, tablet, By Mouth, Daily, # 30 tablet, Refills 0, Tot. Refills 0, Maintenance, 01/17/21 14:19:00 EDT, Route to Pharmacy Electronically, [facility], Partial fill upon patient request if the prescription is for a schedule II opio... Start Date: 01/17/21 Status: Orderedapixaban 2.5 mg oral tablet 1 tablet = 2.5 mg, By Mouth, 2 times a day, # 60 tablet, 0 Refills, Maintenance, 01/13/21 11:38:00 EDT, Tablet, Partial fill upon patient request [...] Orderedgabapentin 100 mg oral capsule 100 mg, Capsule, By Mouth, 01/17/21 9:00:00 EDT Start Date: 01/17/21 Stop Date: 01/17/21 Status: Completedmetoprolol 100 mg oral tablet, extended release 100 mg, 1, tablet, By Mouth, Daily, # 30 tablet, Refills 0, Tot. Refills 0, Maintenance, 01/17/21 14:20:00 EDT, Route to Pharmacy Electronically, [facility], Partial fill upon patient request if the prescription is for a schedule II opio... Start Date: 01/17/21 Status: Orderedmetoprolol 50 mg oral tablet, extended release 50 mg, XL Tablet, By Mouth, 01/17/21 9:00:00 EDT Start Date: 01/17/21 Stop Date: 01/17/21 Status: Completedsertraline 50 mg oral tablet 1 tablet = 50 mg, By Mouth, Daily, # 30 tablet, 0 Refills, Maintenance, 01/13/21 11:39:00 EDT, Tablet, Partial fill upon patient request [...] II opioid drug. Start Date: 01/13/21 Status: Orderedsodium bicarbonate 650 mg oral tablet 1 tablet = 650 mg, By Mouth, 3 times a day, # 60 tablet, 0 Refills, Maintenance, 01/13/21 11:39:00 EDT, Tablet, Partial fill upon patient request if the prescription is for a schedule II opioid drug. Start Date: 01/13/21 Status: Ordered Results Radiology Reports Exam Date Time Procedure Performing Provider Status 01/13/21 7:58 AM Chest Portable Valentine Warner; Jaswinder (Verified ) Notes:(Chest Portable) Reason For Exam: Shortness of Breath, Fever;Other:RESULT: Chest Portable Chest Portable Reason:Shortness of Breath, Fever; Clinical Question(s): Pneumonia COMPARISON: None. FINDINGS: LINES AND TUBES: Right-sided central venous access with the cavoatrial junction. LUNGS AND PLEURA: Left greater than right interstitial prominence with basilar and central predominance. No definite pleural effusion. No pneumothorax. HEART, MEDIASTINUM AND DELFINO: Mild prominence of the cardiac silhouette. Aorta is mildly calcified. Atrial appendage clip overlying the left cardiac silhouette. BONES AND SOFT TISSUES: No acute abnormality. Right shoulder arthroplasty. Left glenohumeral degenerative changes. Multiple left healed rib fractures noted. IMPRESSION: Mild pulmonary edema without pleural effusions. I have personally reviewed the images and I agree with this report. WSN: [id number] Ordering Physician: Clifford Ruano Dictated By: Leonid Olivier DO Dictated Date/Time: 01/13/21 8:31 am Reviewed By: Santi Liu MD Signed By: Santi Liu MD Signed Date/Time: 01/13/21 8:36 am Transcribed By: JOHN Transcribed Date/Time: 01/13/21 8:11 am Vital Signs Most recent to oldest 1 2 3 [Reference Range]: Weight 57.3 kg 59.5 kg 57.4 kg (01/17/21 6:16 AM) (01/16/21 6:50 AM) (01/15/21 6:58 A M) Oxygen Saturation [94-100 %] 96 % 97 % 97 % (01/17/21 8:53 AM) (01/17/21 2:00 AM) (01/16/21 7:53 P M) Pulse Rate [55-90 bpm] 80 bpm 80 bpm 78 bpm (01/17/21 11:35 AM) (01/17/21 8:53 AM) (01/17/21 2:00 AM) Blood Pressure [90-138/55-84 mm 139/80 mm Hg 139/80 mm Hg 129/74 mm Hg Hg] *H* *H* (01/17/21 2:00 AM) (01/17/21 11:35 AM) (01/17/21 8:53 AM) Respiratory Rate [16-30 br/min] 20 br/min 20 br/min 17 br/min (01/17/21 12:35 PM) (01/17/21 11:35 AM) (01/17/21 8:53 AM) Temperature [96.8-100.4 DegF] 97.6 DegF 97.8 DegF 97 .7 DegF (01/17/21 8:53 AM) (01/17/21 2:00 AM) (01/16/21 7:53 P M) Liters per Minute 2.5 L/min 2 L/min 2 L/min (01/15/21 1:56 PM) (01/15/21 2:29 AM) (01/14/21 8:39 P M) Mode of Delivery (Oxygen) Room air Room air Room a ir (01/17/21 8:53 AM) (01/16/21 7:53 PM) (01/16/21 12:27 PM) Blood pressure sites Arm, left Arm, right Arm, right (01/17/21 8:53 AM) (01/17/21 2:00 AM) (01/16/21 7:53 P M) Temperature Route Temporal Temporal Temporal (01/17/21 8:53 AM) (01/17/21 2:00 AM) (01/16/21 7:53 P M) Weight Obtained Via Bed scale Bed scale Bed scale (01/16/21 6:50 AM) (01/15/21 6:58 AM) (01/14/21 7:28 A M)
--- OUTSIDE RECORDS SUMMARY | 2022-09-25 05:34 | XMS_ITS | Continuity of Care Document ---
:1950 Author Organization [facility] Address [address] [place] [phone]- Care Team Providers Name Role Phone Silke Pal MD Primary Care Physician Encounter [facility] [place](s): 05/12/21 - 05/19/21 [facility] [address] [place] [id number] Attending Physician: Mireya Brown MD Referring Physician: Silke Pal MD Allergies, Adverse Reactions, Alerts Substance Reaction [...] tetanus/diphtheria/pertussis, acel(Tdap) 09/13/12 Given 1Result Comment: [05/31/2017] [id number] Note: 1-13 STOP AND SHOP [id number] Comment: [12/31/2014 Uncharted] PUT IN TWICE Medications [...] II opioid drug. Start Date: 02/03/21 Status: Orderedamiodarone 200 mg oral tablet 200 mg, 1, tablet, By Mouth, Daily, # 30 tablet, Refills 0, Tot. Refills 0, Maintenance, 01/17/21 14:19:00 EDT, Route to Pharmacy Electronically, [facility], Partial fill upon patient request if the prescription is for a schedule II opio... Start Date: 01/17/21 Status: OrderedamLODIPine 10 mg oral tablet 1 tablet = 10 mg, By Mouth, Daily, # 30 tablet, 0 Refills, Maintenance, 05/14/21 9:20:00 EDT, Tablet, Partial fill upon patient request if the prescription is for a schedule II opioid drug. Start Date: 05/14/21 Status: Orderedapixaban 2.5 mg oral tablet 1 [...] tablet, 0 Refills, Maintenance, 01/04/21 15:38:00EDT, Tablet, [facility], Partial fill upon patient request if the prescription is for a schedule II opioid drug., 160, cm, 01/04/21 12:4... Start Date: 01/04/21 Status: OrderedEliquis 2.5 mg oral tablet 1 tablet = 2.5 mg, By Mouth, 2 times a day, discontinue coumadin, # 60 tablet, 5 Refills, Maintenance, 02/08/21 8:42:00 EDT, Tablet, [facility], 160, cm, 02/03/21 7:53:00 EDT, [...] 01/04/21 15:38:00 EDT, Route to Pharmacy Electronically, [facility], 160, cm, 01/04/21 12:45:00 EDT, Height, 60.6, kg, 12/17/20 21:40:00... Start Date: 01/04/21 Stop Date: 12/30/21 Status: Orderedlidocaine 5% topical film Topically, Daily, Patch on Right knee, 0 Refills, Maintenance, 03/16/21 7:25:00 EDT, Patch, Partial fill upon patient request if the prescription is for a schedule II opioid drug. Start Date: 03/16/21 Status: OrderedLisinopril = 20 mg, By Mouth, Daily, 0 Refills, Maintenance, 05/14/21 9:19:00 EDT, Partial fill upon patient request if the prescription is for a schedule II opioid drug. Start Date: 05/14/21 Status: Orderedmetoprolol 100 mg oral tablet, extended release 100 mg, 1, tablet, By Mouth, Daily, # 90 tablet, Refills 0, Maintenance, 02/03/21 7:56:00 EDT, Partial fill upon patient request if the prescription is for a schedule II opioid drug. Start Date: 02/03/21 Status: Orderedmetoprolol 100 mg oral tablet, extended release 100 mg, 1, tablet, By Mouth, Daily, # 30 tablet, Refills 0, Tot. Refills 0, Maintenance, 01/17/21 14:20:00 EDT, Route to Pharmacy Electronically, [facility], Partial fill upon patient request if the prescription is for a schedule II opio... Start Date: 01/17/21 Status: OrderedNephrocap Capsule 1, capsule, By Mouth, Daily, Refills 0, Maintenance, 03/16/21 16:22:00 EDT, Capsule, Partial fill upon patient request if the prescription is for a schedule II opioid drug. Start Date: 03/16/21 Status: Orderedsertraline 100 mg oral tablet 1 tablet = 100 mg, By Mouth, Daily, # 90 tablet, 6 Refills, Maintenance, 03/03/21 9:45:00 EDT, Tablet, [facility], Partial fill upon patient request [...] 0 Refills, Maintenance, 01/04/21 15:34:00 EDT, Tablet, [facility], Partial fill upon patient request if the prescription is for a schedule II opioid drug., 160, cm, 01/04/21 12:45:... Start Date: 01/04/21 Status: Orderedthiamine 100 mg oral tablet 100 mg, 1, tablet, By Mouth, Daily, Refills 0, Maintenance, 03/16/21 16:22:00 EDT, Partial fill uponpatient request if the prescription is for a schedule II opioid drug. Start Date: 03/16/21 Status: Ordered Problem List Condition Effective Dates [...] 1978 Vital Signs Most recent to oldest [Reference Range]: 1 Height 162 cm (05/12/21 8:34 AM) Weight 57 kg (05/12/21 8:34 AM) Body Mass Index [18.5-24.99] 21.72 (05/12/21 8:34 AM) Weight Obtained Via Patient/family stated (05/12/21 8:34 AM) Social History Social History Type Response Smoking Status Former smoker entered on: 03/30/18 Sex
--- OUTSIDE RECORDS SUMMARY | 2022-09-25 05:34 | XMS_ITS | Continuity of Care Document ---
:1950 Author Organization [facility] Address Unavailable , Care Team Providers Name Role Phone Silke Pal MD Primary Care Physician Encounter [facility] Date(s): 06/16/21 - 09/11/21 [facility] Attending Physician: Jethro Hampton MD Referring Physician: Silke Pal MD Allergies, [...] tetanus/diphtheria/pertussis, acel(Tdap) 09/13/12 Given 1Result Comment: [05/31/2017] [id number] Note: 1-13 STOP AND SHOP [id number] Comment: [12/31/2014 Uncharted] PUT IN TWICE Medications [...] 01/17/21 14:19:00 EDT, Route to Pharmacy Electronically, [facility], Partial fill upon patient request if [...] tablet, 0 Refills, Maintenance, 01/04/21 15:38:00EDT, Tablet, [facility], Partial fill upon patient request if the prescription is for a schedule II opioid drug., 160, cm, 01/04/21 12:4... Start Date: 01/04/21 Status: OrderedEliquis 2.5 mg oral tablet See Instructions, TAKE 1 TABLET BY MOUTH TWO TIMES A DAY, # 56 tablet, 10 Refills, [facility], 162, cm, 07/06/21 9:31:00 EST, Height, [...] 01/04/21 15:38:00 EDT, Route to Pharmacy Electronically, [facility], 160, cm, 01/04/21 12:45:00 EDT, Height, 60.6, kg, 12/17/20 21:40:00... Start Date: 01/04/21 Stop Date: 12/30/21 Status: Orderedlidocaine 5% topical film Topically, Daily, Patch on Right knee, 0 Refills, Maintenance, 03/16/21 7:25:00 EDT, Patch, Partial fill upon patient request if the prescription is for a schedule II opioid drug. Start Date: 03/16/21 Status: Orderedmetoprolol 100 mg oral tablet, extended release 100 mg, 1, tablet, By Mouth, Daily, # 30 tablet, Refills 0, Tot. Refills 0, Maintenance, 01/17/21 14:20:00 EDT, Route to Pharmacy Electronically, [facility], Partial fill upon patient request if the prescription is for a schedule II opio... Start Date: 01/17/21 Status: Orderedmetoprolol 100 mg oral tablet, extended release 100 mg, 1, tablet, By Mouth, Daily, # 90 tablet, Refills 3, Tot. Refills 3, Maintenance, 07/07/21 10:32:00 EST, Route to Pharmacy Electronically, [facility], Partial fill upon patient request if the prescription is for a schedule II opio... Start Date: 07/07/21 Stop Date: 07/02/22 Status: OrderedNephrocap Capsule 1, capsule, By Mouth, Daily, Refills 0, Maintenance, 03/16/21 16:22:00 EDT, Capsule, Partial fill upon patient request if the prescription is for a schedule II opioid drug. Start Date: 03/16/21 Status: Orderedsertraline 100 mg oral tablet 1 tablet = 100 mg, By Mouth, Daily, # 90 tablet, 6 Refills, Maintenance, 03/03/21 9:45:00 EDT, Tablet, [facility] 3, Partial fill upon patient [...] 0 Refills, Maintenance, 01/04/21 15:34:00 EDT, Tablet, [facility], Partial fill upon patient [...] NEEDED FOR INSOMNIA Start Date: 08/27/21 Status: Orderedvalsartan 160 mg oral tablet 160 mg, 1, tablet, By Mouth, 2 times a day, # 60 tablet, Refills 5, Tot. Refills 5, Maintenance, 07/29/21 9:40:00 EST, Route to Pharmacy Electronically, [facility], 162, cm, 07/06/21 9:31:00 EST, Height, 57, kg, 03/09/21 16:10:00 EDT, . Start Date: 07/29/21 Stop Date: 01/25/22 Status: Ordered Problem List Condition Effective Dates [...]
--- OUTSIDE RECORDS SUMMARY | 2022-09-25 05:34 | XMS_ITS | Continuity of Care Document ---
:1950 Author Organization [facility] Address [address] [place] [id number]- Care Team Providers Name Role Phone Silke Pal MD Primary Care Physician Encounter [facility] Date(s): 02/03/21 - 03/05/21 [facility] [address] [place] [id number] Attending Physician: AdmAniceto beaulieu Admitting Physician: Admtr, Conner8 Referring Physician: Admtr, Ar8 Allergies, Adverse Reactions, Alerts Substance Reaction Severity [...] tetanus/diphtheria/pertussis, acel(Tdap) 09/13/12 Given 1Result Comment: [05/31/2017] [id number] Note: 1-13 STOP AND SHOP [id number] Comment: [12/31/2014 Uncharted] PUT IN TWICE Medications [...] tablet, 0 Refills, Maintenance, 01/04/21 15:38:00EDT, Tablet, [facility], Partial fill upon patient request if the prescription is for a schedule II opioid drug., 160, cm, 01/04/21 12:4... Start Date: 01/04/21 Status: OrderedEliquis 2.5 mg oral tablet 1 tablet = 2.5 mg, By Mouth, 2 times a day, discontinue coumadin, # 60 tablet, 5 Refills, Maintenance, 02/08/21 8:42:00 EDT, Tablet, [facility], 160, cm, 02/03/21 7:53:00 EDT, Height, 60.6, kg, 12/17/20 21:40:00 EDT, Dry Weight Start Date: 02/08/21 Stop Date: 08/07/21 Status: Orderedgabapentin 100 mg oral capsule 100 mg, 1, capsule, By Mouth, 2 times a day, # 180 capsule, Refills 3, Tot. Refills 3, Maintenance, 01/04/21 15:38:00 EDT, Route to Pharmacy Electronically, [facility], 160, cm, 01/04/21 12:45:00 EDT, Height, 60.6, kg, 12/17/20 21:40:00... Start Date: 01/04/21 Stop Date: 12/30/21 Status: Orderedlisinopril 10 mg oral tablet 10 mg, 1, tablet, By Mouth, Daily, # 30 tablet, Refills 0, Tot. Refills 0, Maintenance, 03/03/21 9:50:00 EDT, Route to Pharmacy Electronically, [facility], Partial fill upon patient [...] 6 Refills, Maintenance, 03/03/21 9:45:00 EDT, Tablet, [facility], Partial fill upon patient request if the prescription is for a schedule II opioid drug., 160, cm, 03/03/21 9:18:00 EDT, He... Start Date: 03/03/21 Status: Orderedsevelamer carbonate 800 mg oral tablet 1 tablet = 800 mg, By Mouth, 3 times a day, # 90 tablet, 0 Refills, Maintenance, 01/04/21 15:34:00 EDT, Tablet, [facility], Partial fill upon patient request if [...]
--- OUTSIDE RECORDS SUMMARY | 2022-09-25 05:34 | XMS_ITS | Continuity of Care Document ---
:1950 Author Organization [facility] Address [address] [place] [id number]- Care Team Providers Name Role Phone Demarco GORMAN, Silke Primary Care Physician Encounter [facility] Date(s): 05/16/22 - 05/17/[address] [id number] Discharge Disposition: A-D/C Home Attending Physician: Linda GORMAN, Fidel Admitting Physician: Kody Hunt DO Referring Physician: Not on Staff, Referring MD [...] tetanus/diphtheria/pertussis, acel(Tdap) 09/13/12 Given 1Result Comment: [05/31/2017] [id number] Note: 1-13 STOP AND SHOP [id number] Comment: [12/31/2014 Uncharted] PUT IN TWICE Medications [...] II opioid drug. Start Date: 05/14/21 Status: OrderedamLODIPine 10 mg oral tablet 10 mg, Tablet, By Mouth, 05/17/22 9:00:00 EDT Start Date: 05/17/22 Stop Date: 05/17/22 Status: Completedcarvedilol 12.5 mg oral tablet 12.5 mg, 1, tablet, By Mouth, 2 times a day, # 180 tablet, Refills 0, Maintenance, 05/16/22 8:25:00 EDT, Partial fill upon patient request if the prescription is for a schedule II opioid drug. Start Date: 05/16/22 Status: Orderedcarvedilol 12.5 mg oral tablet 12.5 mg, Tablet, By Mouth, 05/17/22 9:00:00 EDT Start Date: 05/17/22 Stop Date: 05/17/22 Status: CompletedCatapres Patch 0.2 mg, Patch, Topically, Apply to Back, Dose at 0.2 mg/24hr, 05/17/22 8:00:00 EDT Start Date: 05/17/22 Stop Date: 05/17/22 Status: CompletedcloNIDine 0.2 mg/24 hr transdermal film, extended release 1 patch, Topically, Every week, # 12 patch, 0 Refills, Maintenance, 10/28/21 17:37:00 EDT, Patch, Partial fill upon patient request if the prescription is for a schedule II opioid drug. Start Date: 10/28/21 Status: Ordereddocusate-senna 50 mg-8.6 mg oral capsule 1 capsule, By Mouth, 2 times a day, PRN Constipation, for 10 days, # 20 capsule, 0 Refills, Acute 05/27/22 13:17:00 EDT, 05/17/22 13:17:00 EDT, Capsule, [facility], Partial fill upon patient request if the prescription is for a schedule... Start Date: 05/17/22 Stop Date: 05/27/22 Status: OrderedEliquis 2.5 mg oral tablet 1 [...] 05/17/22 13:16:00 EDT, Route to Pharmacy Electronically, [facility], Partial fill upon patient request if the p... Start Date: 05/17/22 Stop Date: 06/16/22 Status: Orderedgabapentin 100 mg oral capsule 200 mg, 2, capsule, By Mouth, Daily at bedtime, # 60 capsule, Refills 0, Tot. Refills 0, Maintenance, 05/17/22 13:17:00 EDT, Route to Pharmacy Electronically, [facility], Partial fill upon patient request if the prescription is for a ramakrishna... Start Date: 05/17/22 Stop Date: 06/16/22 Status: Orderedgabapentin 100 mg oral capsule 100 mg, Capsule, By Mouth, 05/17/22 7:00:00 EDT Start Date: 05/17/22 Stop Date: 05/17/22 Status: CompletedLisinopril = 20 mg, By Mouth, 2 times [...] 13:17:00 EDT, 05/17/22 13:17:00 EDT, REC Powder, [facility], Partial fill upon patient request if the prescription is for a sched... Start Date: 05/17/22 Stop Date: 05/31/22 Status: Orderedsertraline 100 mg oral tablet 1 tablet, By Mouth, Daily, # 90 tablet, 4 Refills, Maintenance, 04/21/22 10:23:00 EDT, [facility], 162.56, cm, 02/03/22 10:08:00 EDT, [...] Exam Date Time Procedure Performing Provider Status 05/16/22 5:31 AM Chest Portable Poe , Ho; Auth (Verified) Notes:(Chest Portable) Reason For Exam: Chest Pain;Other:RESULT: Chest Portable Examination: Portable chest performed on 05/16/2022. History: Shortness of breath. Findings: A frontal view of the chest is compared to a prior study dated 01/13/2021. Sternotomy wires, permacath, and left atrial appendage clip are demonstrated. There is stable enlargement of the cardiac silhouette. Pulmonary edema has increased since the priorstudy. There are no pleural effusions. A right shoulder arthroplasty is demonstrated. IMPRESSION: Increased pulmonary edema. WSN: [id number] Ordering Physician: Veronica Sullivan Dictated By: Gaby Carter MD Dictated Date/Time: 05/16/22 8:47 am Reviewed By: Gaby Carter MD Signed By: Gaby Carter MD Signed Date/Time: 05/16/22 8:47 am Transcribed By: JOHN Transcribed Date/Time: 05/16/22 8:46 am Vital Signs Most recent to oldest 1 2 3 4 [Reference Range]: Height 162 cm 162 cm 162 cm (05/17/22 11:44 AM) (05/17/22 8:08 AM) (05/17/22 3:45 AM) Weight 56.0 kg 56.45 kg 60 kg (05/17/22 6:52 AM) (05/16/22 8:14 PM) (05/16/22 9:41 AM) Oxygen Saturation 96 % 93 % 95 % [94-100 %] (05/17/22 11:44 AM) *L* (05/17/22 3:45 AM) (05/17/22 8:08 AM) Pulse Rate [55-90 bpm] 63 bpm 67 bpm 63 bpm (05/17/22 11:44 AM) (05/17/22 8:47 AM) (05/17/22 8:08 AM) Body Mass Index 21.51 kg/m2 22.86 kg/m2 [18.5-24.99 kg/m2] (05/16/22 8:14 PM) (05/16/22 9:41 AM) Blood Pressure 157/67 mm Hg 164/74 mm Hg 164/74 mm Hg 164/74 mm Hg [90-138/55-84 mm Hg] *H* *H* *H* *H* (05/17/22 11:44 AM) (05/17/22 10:07 AM) (05/17/22 8:47 AM ) (05/17/22 8:47 AM) Respiratory Rate 18 br/min 18 br/min 17 br/min [16-30 br/min] (05/17/22 11:44 AM) (05/17/22 8:47 AM) (05/17/22 8:08 A M) Temperature 97.9 DegF 97.6 DegF 98.2 DegF [96.8-100.4 DegF] (05/17/22 11:44 AM) (05/17/22 8:08 AM) (05/17/22 3:4 5 AM) Liters per Minute 2 L/min 2 L/min (05/16/22 5:05 AM) (05/16/22 5:05 AM) Mode of Delivery Room air Room air Room air (Oxygen) (05/17/22 11:44 AM) (05/17/22 8:08 AM) (05/17/22 3:45 AM) Blood pressure sites Arm, right Arm, right Arm, right (05/17/22 11:44 AM) (05/17/22 8:08 AM) (05/17/22 3:45 AM) Temperature Route Oral Oral Oral (05/17/22 11:44 AM) (05/17/22 8:08 AM) (05/17/22 3:45 AM) Dry Weight 58 kg (05/16/22 9:41 AM) Weight Obtained Via Standing scale Standing scale Bed scale (05/17/22 6:52 AM) (05/16/22 8:14 PM) (05/16/22 9:41 AM) Dry Weight Obtained Patient/family stated Via (05/16/22 9:41 AM) Social History Social History Type Response Smoking Status Former smoker, quit more padmini n 30 days ago; Never entered on: 10/28/21 Sex Portable XR Chest Views BHSPowerscribe , CIS S: TRANSCRIBE Gaby Carter MD: VERIFY Event Display: Result: Authored Date: Examination: Portable chest performed on 05/16/2022. History: Shortness of breath. Findings: A frontal view of the chest is compared to a prior study dated 01/13/2021. Sternotomy wires, permacath, and left atrial appendage clip are demonstrated. There is stable enlargement of the cardiac silhouette. Pulmonary edema has increased since the priorstudy. There are no pleural effusions. A right shoulder arthroplasty is demonstrated. IMPRESSION: Increased pulmonary edema. WSN: [id number] Ordering Physician: Veronica Sullivan Dictated By: Gaby Carter MD Dictated Date/Time: 05/16/22 8:47 am Reviewed By: Gaby Carter MD Signed By: Gaby Carter MD Signed Date/Time: 05/16/22 8:47 am Transcribed By: JOHN Transcribed Date/Time: 05/16/22 8:46 am Patient Care team information PersonnelName: Silke Pal MD Address: Address: [address] [place] [address] [facility] [address]
--- OUTSIDE RECORDS SUMMARY | 2022-09-25 05:35 | XMS_ITS | Continuity of Care Document ---
:1950 Author Organization [facility] Address [address] [place] [address]- Care Team Providers Name Role Phone Silke Pal MD Primary Care Physician Encounter [facility] [place] Date(s): 06/03/21 - 06/10/21 [facility] [address] [place], [place] [address] Encounter Diagnosis Rectal prolapse (Discharge Diagnosis) - 06/03/21 Atrial fibrillation (Discharge Diagnosis) - 06/03/21 Hypertension (Discharge Diagnosis) - 06/03/21 Chronic kidney disease (CKD) stage G3b/A3 (Discharge Diagnosis) - 06/03/21 Attending Physician: Silke Pal MD Allergies, Adverse Reactions, Alerts Substance Reaction Severity Status atenolol Cardiac Palpitations Active doxycycline Active Duloxetine diarrhea Active Adderall Active Immunizations Given and Recorded Vaccine Date [...] tetanus/diphtheria/pertussis, acel(Tdap) 09/13/12 Given 1Result Comment: [05/31/2017] [id number] Note: 1-13 STOP AND SHOP [id number] Comment: [12/31/2014 Uncharted] PUT IN TWICE Medications [...] 01/17/21 14:19:00 EDT, Route to Pharmacy Electronically, [facility], Partial fill upon patient request if [...] tablet, 0 Refills, Maintenance, 01/04/21 15:38:00EDT, Tablet, [facility], Partial fill upon patient request if the prescription is for a schedule II opioid drug., 160, cm, 01/04/21 12:4... Start Date: 01/04/21 Status: OrderedEliquis 2.5 mg oral tablet 1 tablet = 2.5 mg, By Mouth, 2 times a day, discontinue coumadin, # 60 tablet, 5 Refills, Maintenance, 02/08/21 8:42:00 EDT, Tablet, [facility], 160, cm, 02/03/21 7:53:00 EDT, [...] 01/04/21 15:38:00 EDT, Route to Pharmacy Electronically, [facility], 160, cm, 01/04/21 12:45:00 EDT, Height, [...] 01/17/21 14:20:00 EDT, Route to Pharmacy Electronically, [facility], Partial fill upon patient request if [...] 6 Refills, Maintenance, 03/03/21 9:45:00 EDT, Tablet, [facility], Partial fill upon patient request if [...] 0 Refills, Maintenance, 01/04/21 15:34:00 EDT, Tablet, [facility], Partial fill upon patient request if [...] Osteoarthritis of lumbar Active spine(Confirmed) Osteopenia(Confirmed) Active Rectal prolapse(Confirmed) Active Vitamin D deficiency(Confirmed) Active 1Quit 1978 Diagnosis Diagnosis Type Effective Dates Health Clinical Infor mant Status Service Rectal prolapse Discharge 06/03/21 Diagnosis Atrial fibrillation Discharge 06/03/21 Diagnosis Hypertension Discharge 06/03/21 Diagnosis Chronic kidney Discharge 06/03/21 disease (CKD) stage Diagnosis G3b/A3 Vital Signs Most recent to oldest [Reference Range]: 1 Height 162 cm (06/03/21 1:12 PM) Weight 61.7 kg (06/03/21 1:12 PM) Oxygen Saturation [94-100 %] 98 % (06/03/21 1:12 PM) Pulse Rate [55-90 bpm] 68 bpm (06/03/21 1:12 PM) Body Mass Index [18.5-24.99] 23.51 (06/03/21 1:12 PM) Blood Pressure [90-138/55-84 mm Hg] 170/90 mm Hg *H* (06/03/21 1:12 PM) Temperature [96.8-100.4 DegF] 98.8 DegF (06/03/21 1:12 PM) Mode of Delivery (Oxygen) Room air (06/03/21 1:12 PM) Blood pressure sites Arm, left (06/03/21 1:12 PM) Temperature Route Temporal (06/03/21 1:12 PM) Social History Social History Type Response Smoking Status Former smoker entered on: 03/30/18 Sex
--- OUTSIDE RECORDS SUMMARY | 2022-09-25 05:35 | XMS_ITS | Continuity of Care Document ---
:1950 Author Organization [facility] Address [address] [place] [address]- Care Team Providers Name Role Phone Silke Pal MD Primary Care Physician [facility]counter [facility] Date(s): 07/07/21 - 08/06/21 [facility] [address] [place] [address]- [place] Allergies, Adverse Reactions, Alerts Substance Reaction [...] tetanus/diphtheria/pertussis, acel(Tdap) 09/13/12 Given 1Result Comment: [05/31/2017] [id number] Note: 1-13 [facility] [id number] Comment: [12/31/2014 Uncharted] PUT IN TWICE Medications [...] 01/17/21 14:19:00 EDT, Route to Pharmacy Electronically, [facility], Partial fill upon patient request if [...] tablet, 0 Refills, Maintenance, 01/04/21 15:38:00EDT, Tablet, [facility], Partial fill upon patient request if the prescription is for a schedule II opioid drug., 160, cm, 01/04/21 12:4... Start Date: 01/04/21 Status: OrderedEliquis 2.5 mg oral tablet 1 tablet = 2.5 mg, By Mouth, 2 times a day, discontinue coumadin, # 60 tablet, 5 Refills, Maintenance, 02/08/21 8:42:00 EDT, Tablet, [facility], 160, cm, 02/03/21 7:53:00 [...] 01/04/21 15:38:00 EDT, Route to Pharmacy Electronically, [facility], 160, cm, 01/04/21 12:45:00 [...] 01/17/21 14:20:00 EDT, Route to Pharmacy Electronically, [facility], Partial fill upon patient request if the prescription is for a schedule II opio... Start Date: 01/17/21 Status: Orderedmetoprolol 100 mg oral tablet, extended release 100 mg, 1, tablet, By Mouth, Daily, # 90 tablet, Refills 3, Tot. Refills 3, Maintenance, 07/07/21 10:32:00 EST, Route to Pharmacy Electronically, [facility], Partial fill upon patient [...] 6 Refills, Maintenance, 03/03/21 9:45:00 EDT, Tablet, [facility], Partial fill upon patient [...] 0 Refills, Maintenance, 01/04/21 15:34:00 EDT, Tablet, [facility], Partial fill upon patient request if the prescription is for a schedule II opioid drug., 160, cm, 01/04/21 12:45:... Start Date: 01/04/21 Status: Orderedthiamine 100 mg oral tablet 100 mg, 1, tablet, By Mouth, Daily, Refills 0, Maintenance, 03/16/21 16:22:00 EDT, Partial fill uponpatient request if the prescription is for a schedule II opioid drug. Start Date: 03/16/21 Status: Orderedvalsartan 160 mg oral tablet 160 mg, 1, tablet, By Mouth, 2 times a day, # 60 tablet, Refills 5, Tot. Refills 5, Maintenance, 07/29/21 9:40:00 EST, Route to Pharmacy Electronically, [facility], 162, cm, 07/06/21 9:31:00 EST, Height, [...]
--- OUTSIDE RECORDS SUMMARY | 2022-09-25 05:35 | XMS_ITS | Continuity of Care Document ---
:1950 Author Organization [facility] Address [address] [place] [address]- Care Team Providers Name Role Phone Kusum Bradley MD Primary Care Physician [place] [id number] Date(s): 01/22/21 - 02/27/[address] [id number] Attending Physician: Mireya Brown MD Admitting Physician: Mireya Brown MD Referring Physician: Mireya Brown MD Allergies, Adverse Reactions, Alerts Substance Reaction [...] tetanus/diphtheria/pertussis, acel(Tdap) 09/13/12 Given 1Result Comment: [05/31/2017] [id number] Note: 1-13 [facility] [id number] Comment: [12/31/2014 Uncharted] PUT IN TWICE Medications [...] tablet, 0 Refills, Maintenance, 01/04/21 15:38:00EDT, Tablet, [facility], Partial fill upon patient request if the prescription is for a schedule II opioid drug., 160, cm, 01/04/21 12:4... Start Date: 01/04/21 Status: OrderedEliquis 2.5 mg oral tablet 1 tablet = 2.5 mg, By Mouth, 2 times a day, discontinue coumadin, # 60 tablet, 5 Refills, Maintenance, 02/08/21 8:42:00 EDT, Tablet, [facility], 160, cm, 02/03/21 7:53:00 EDT, Height, 60.6, kg, 12/17/20 21:40:00 EDT, Dry Weight Start Date: 02/08/21 Stop Date: 08/07/21 Status: Orderedgabapentin 100 mg oral capsule 100 mg, 1, capsule, By Mouth, 2 times a day, # 180 capsule, Refills 3, Tot. Refills 3, Maintenance, 01/04/21 15:38:00 EDT, Route to Pharmacy Electronically, [facility], 160, cm, 01/04/21 12:45:00 EDT, Height, 60.6, kg, 12/17/20 21:40:00... Start Date: 01/04/21 Stop Date: 12/30/21 Status: Orderedlisinopril 5 mg oral tablet 5 mg, 1, tablet, By Mouth, Daily, # 30 tablet, Refills 6, Tot. Refills 6, Maintenance, 02/03/21 8:27:00 EDT, Route to Pharmacy Electronically, [facility], Partial fill upon patient [...] 01/04/21 15:37:00 EDT, Route to Pharmacy Electronically, [facility], Partial fill upon patient request if the prescription is for a schedule II opioi... Start Date: 01/04/21 Status: Orderedsertraline 50 mg oral tablet 1 tablet = 50 mg, By Mouth, Daily, # 30 tablet, 0 Refills, Maintenance, 01/04/21 15:34:00 EDT, Tablet, [facility], Partial fill upon patient request if the prescription is for a schedule II opioid drug., 160, cm, 01/04/21 12:45:00 EDT, H... Start Date: 01/04/21 Stop Date: 02/03/21 Status: Orderedsevelamer carbonate 800 mg oral tablet 1 tablet = 800 mg, By Mouth, 3 times a day, # 90 tablet, 0 Refills, Maintenance, 01/04/21 15:34:00 EDT, Tablet, [facility], Partial fill upon patient [...] spine(Confirmed) Osteopenia(Confirmed) Active Vitamin D deficiency(Confirmed) Active [id number] Social History Social History Type Response Smoking Status Former smoker entered on: 03/30/18 Sex
--- OUTSIDE RECORDS SUMMARY | 2022-09-25 05:35 | XMS_ITS | Continuity of Care Document ---
:1950 Author Organization [facility] Address [address] [place] [address] Drive [address] [place] [address]- Care Team Providers Name Role Phone Kirk GORMAN, Kusum Primary Care Physician Encounter [facility] Date(s): 04/13/20 - 04/20/[address] [place] [address]- [facility] Attending Physician: Berta GORMAN, Jethro Nair Referring Physician: Eric Monteiro MD Allergies, Adverse Reactions, Alerts Substance Reaction [...] tetanus/diphtheria/pertussis, acel(Tdap) 09/13/12 Given 1Result Comment: [05/31/2017] [id number] Note: 1-13 [facility] [id number] Comment: [12/31/2014 Uncharted] PUT IN TWICE Medications amLODIPine 10 mg oral tablet 10 mg, 1, tablet, By Mouth, Daily, # 30 tablet, Refills 0, Maintenance, 04/13/20 9:57:00 EDT Start Date: 04/13/20 Status: Orderedcarvedilol 25 mg oral tablet 25 mg, 1, tablet, By Mouth, 2 times a day, # 180 tablet, Refills 3, Tot. Refills 3, Maintenance, 11/14/18 9:54:14 EDT, Route to Pharmacy Electronically, [id number], [facility] Start Date: 11/14/18 [...] 12/17/18 14:22:03 EDT, Route to Pharmacy Electronically, [id number], [facility] Start Date: [...] oldest [Reference Range]: 1 Height 162 cm (04/13/20 9:49 AM) Weight 63.4 kg (04/13/20 9:49 AM) Pulse Rate [55-90 bpm] 66 bpm (04/13/20 9:49 AM) Body Mass Index [18.5-24.99] 24.16 (04/13/20 9:49 AM) Blood Pressure [90-138/55-84 mm Hg] 165/98 mm Hg *H* (04/13/20 9:49 AM) Respiratory Rate [16-30 br/min] 16 br/min (04/13/20 9:49 AM) Temperature [96.8-100.4 DegF] 96.5 DegF *L* (04/13/20 9:49 AM) Blood pressure sites Arm, left (04/13/20 9:49 AM) Temperature Route Femoral (04/13/20 9:49 AM) Weight Obtained Via Standing scale (04/13/20 9:49 AM) Social History Social History Type Response Smoking Status Former smoker entered on: 03/30/18 Sex
--- OUTSIDE RECORDS SUMMARY | 2022-09-25 05:35 | XMS_ITS | Continuity of Care Document ---
:1950 Author Organization [facility] Address [address] [place] [address]- Care Team Providers Name Role Phone Silke Pal MD Primary Care Physician [facility]counter [facility] Date(s): 09/01/21 - 10/01/21 [facility] [address] [place] [address]- [place] Allergies, Adverse Reactions, Alerts Substance Reaction [...] tetanus/diphtheria/pertussis, acel(Tdap) 09/13/12 Given 1Result Comment: [05/31/2017] [id number] Note: 1-13 [facility] [id number] Comment: [12/31/2014 Uncharted] PUT IN TWICE Medications [...] tablet, 0 Refills, Maintenance, 01/04/21 15:38:00EDT, Tablet, [facility], Partial fill upon patient request [...] A DAY, # 56 tablet, 10 Refills, [facility], 162, cm, 07/06/21 9:31:00 EST, Height, [...] 01/04/21 15:38:00 EDT, Route to Pharmacy Electronically, [facility], 160, cm, 01/04/21 12:45:00 EDT, [...] 6 Refills, Maintenance, 03/03/21 9:45:00 EDT, Tablet, [facility], Partial fill upon patient request [...] 0 Refills, Maintenance, 01/04/21 15:34:00 EDT, Tablet, [facility], Partial fill upon patient request [...]
--- OUTSIDE RECORDS SUMMARY | 2022-09-25 05:35 | XMS_ITS | Continuity of Care Document ---
:1950 Author Organization [facility] Address [address] [place] [address]- Care Team Providers Name Role Phone Demarco GORMAN, Silke Primary Care Physician Encounter [facility] Date(s): 06/01/22 - 07/01/22 [facility] [address] [place] [address]- Attending Physician: Aniceto Multani Admitting Physician: AdmAniceto [...] tetanus/diphtheria/pertussis, acel(Tdap) 09/13/12 Given 1Result Comment: [05/31/2017] [id number] Note: 1-13 [facility] [id number] Comment: [12/31/2014 Uncharted] PUT IN TWICE Medications [...] Confirmed Active (CKD) stage G3b/A3 CAD in [place] artery Confirmed Active Depression, major Confirmed Active [...] Care Team PersonnelName: Quan Virgen RN Position: [facility] RN Member Role: Primary Care Nurse Name: Susana Chaney LPN Position: [facility] RN Member Role: Primary Care Nurse Name: Betty Carbera NP Position: [facility] Associate Professional Member Role: Primary Care Nurse Address: Address: [address] [place] [address]- Name: Uma Ndiaye Position: [facility] Outreach Member Role: Lifetime Consulting Physician Name: Kirk Morse DO Position: [facility] Renal MD Member Role: Lifetime Consulting Physician Address: Address: [address] [place] [address] [facility] [place], [place] [address] Name: Uma Valdovinos Position: [facility] Outreach Member Role: Lifetime Consulting Physician Name: Janelle Arora RN Position: [facility] RN Member Role: Primary Care Nurse Name: Prasanna Belle III, RN Position: [facility] RN Member Role: Primary Care Nurse Name: Suellen Lazcano RN Position: [facility] ED RN W/OE and Tasks Member Role: Primary Care Nurse Name: Rubia Pardo LPN Position: [facility] RN Member Role: Primary Care Nurse Name: Florencio Ferreira MD Position: [facility] Renal MD Member Role: Lifetime Consulting Physician Address: Address: [address] [facility] [place] [address]- [place] Name: Priscila López RN Position: S RN Member Role: Primary Care Nurse Name: Silke Pal MD Position: [facility] Primary Care Physician Member Role: PCP Address: Address: [address] [place] [address] [facility] [place] [address]- [place] Name: Bonnie Ann RN Position: S RN Member Role: Primary Care Nurse Name: Felipa Burr RN Position: S RN Member Role: Primary Care Nurse Name: Jennifer Alex RN Position: S RN Member Role: Primary Care Nurse Name: Saskia Fontana RN Position: S RN Member Role: Primary Care Nurse Name: Beatris Gaytan RN Position: [facility] RN Member Role: Primary Care Nurse Care Team Related PersonsName: AUDREY HEARN Address: [address] [place] [address] Name: YUSUF HEARN Address: [address] [place] [address]
--- OUTSIDE RECORDS SUMMARY | 2022-09-25 05:35 | XMS_ITS | Continuity of Care Document ---
:1950 Author Organization [facility] Address Unavailable , Care Team Providers Name Role Phone Silke Pal MD Primary Care Physician [place] [facility] [place]s): 06/10/21 - 06/17/21 [facility] Attending Physician: Jethro Hampton MD Referring Physician: [...] tetanus/diphtheria/pertussis, acel(Tdap) 09/13/12 Given 1Result Comment: [05/31/2017] [id number] Note: 1-13 [facility] [id number] Comment: [12/31/2014 Uncharted] PUT IN TWICE Medications [...] 01/17/21 14:19:00 EDT, Route to Pharmacy Electronically, [facility], Partial fill upon patient request if [...] tablet, 0 Refills, Maintenance, 01/04/21 15:38:00EDT, Tablet, [facility], Partial fill upon patient request if the prescription is for a schedule II opioid drug., 160, cm, 01/04/21 12:4... Start Date: 01/04/21 Status: OrderedEliquis 2.5 mg oral tablet 1 tablet = 2.5 mg, By Mouth, 2 times a day, discontinue coumadin, # 60 tablet, 5 Refills, Maintenance, 02/08/21 8:42:00 EDT, Tablet, [facility], 160, cm, 02/03/21 7:53:00 EDT, [...] 01/04/21 15:38:00 EDT, Route to Pharmacy Electronically, [facility], 160, cm, 01/04/21 12:45:00 EDT, [...] 01/17/21 14:20:00 EDT, Route to Pharmacy Electronically, [facility], Partial fill upon patient request if [...] 6 Refills, Maintenance, 03/03/21 9:45:00 EDT, Tablet, [facility], Partial fill upon patient request if [...] 0 Refills, Maintenance, 01/04/21 15:34:00 EDT, Tablet, [facility], Partial fill upon patient request if [...] oldest [Reference Range]: 1 Height 162 cm (06/10/21 2:40 PM) Weight 59.7 kg (06/10/21 2:40 PM) Pulse Rate [55-90 bpm] 73 bpm (06/10/21 2:40 PM) Body Mass Index [18.5-24.99] 22.75 (06/10/21 2:40 PM) Blood Pressure [90-138/55-84 mm Hg] 181/84 mm Hg *H* (06/10/21 2:40 PM) Temperature [96.8-100.4 DegF] 97.1 DegF (06/10/21 2:40 PM) Blood pressure sites Arm, right (06/10/21 2:40 PM) Temperature Route Temporal (06/10/21 2:40 PM) Social History Social History Type Response Smoking Status Former smoker entered on: 03/30/18 Sex
--- OUTSIDE RECORDS SUMMARY | 2022-09-25 05:35 | XMS_ITS | Continuity of Care Document ---
:1950 Author Organization [facility] Address [address] [place] [address]- Care Team Providers Name Role Phone Janelle Kwon Primary Care Physician [phone] Encounter [facility] Date(s): 05/23/22 - 05/26/[address] [id number] [[email or web address]] Encounter Diagnosis Hip pain, right (Final) - 05/23/22 Fall (Final) - 05/23/22 ESRD (end stage renal disease) on dialysis (Final) - 05/23/22 Hyperkalemia (Final) - 05/23/22 Intertrochanteric fracture (Final) - 05/23/22 Discharge Disposition: Disch/Trans to IP Rehab or unit w/in Hos Attending Physician: Garfield Logan DO Admitting Physician: Pili Alexis MD Referring Physician: Not on Staff, Referring [...] tetanus/diphtheria/pertussis, acel(Tdap) 09/13/12 Given 1Result Comment: [05/31/2017] [id number] Note: 1- STOP AND SHOP [id number] Comment: [12/31/2014 Uncharted] PUT IN TWICE Medications acetaminophen 325 mg oral tablet 975 mg, Tablet, By Mouth, 05/26/22 12:00:00 EDT Start Date: 05/26/22 Stop Date: 05/26/22 Status: Completedacetaminophen 325 mg oral tablet 975 mg, 3, [...] oral tablet 10 mg, Tablet, By Mouth, 05/26/22 9:00:00 EDT Start Date: 05/26/22 Stop Date: 05/26/22 Status: CompletedAspirin Tablet 81 mg, By Mouth, Daily, Refills [...] oral tablet 12.5 mg, Tablet, By Mouth, 05/26/22 9:00:00 EDT Start Date: 05/26/22 Stop Date: 05/26/22 Status: CompletedcloNIDine 0.2 mg/24 hr transdermal film, [...] 05/27/22 13:17:00 EDT, 05/17/22 13:17:00 EDT, Capsule, [facility], Partial fill upon patient [...] 05/17/22 13:16:00 EDT, Route to Pharmacy Electronically, [facility], Partial fill upon patient request if the p... Start Date: 05/17/22 Stop Date: 06/16/22 Status: Orderedgabapentin 100 mg oral capsule 200 mg, 2, capsule, By Mouth, Daily at bedtime, # 60 capsule, Refills 0, Tot. Refills 0, Maintenance, 05/17/22 13:17:00 EDT, Route to Pharmacy Electronically, [facility], Partial fill upon patient request if the prescription is for a ramakrishna... Start Date: 05/17/22 Stop Date: 06/16/22 Status: Orderedgabapentin 100 mg oral capsule 100 mg, Capsule, By Mouth, 05/26/22 9:00:00 EDT Start Date: 05/26/22 Stop Date: 05/26/22 Status: CompletedHYDROmorphone 2 mg oral tablet See Instructions, PRN Pain , Moderate, 1 to 2 mg By Mouth Every 4 hours PRN severe pain, # 30 tablet, 0 Refills, Acute 06/02/22 13:29:00 EDT, 05/26/22 13:28:00 EDT, Tablet, Partial fill upon patient request if the prescription is for a schedule II opi... Start Date: 05/26/22 Stop Date: 06/02/22 Status: OrderedHYDROmorphone 2 mg oral tablet 2 mg, Tablet, By Mouth, Every 4 hours, PRN for Pain , Moderate, Routine, 05/25/22 9:18:00 EDT Start Date: 05/25/22 Stop Date: 05/27/22 Status: DiscontinuedLisinopril = 20 mg, By Mouth, 2 times a day, 0 Refills, Maintenance, 09/20/21 17:08:00 EST, Partial fill upon patient request if the prescription is for a schedule II opioid drug. Start Date: 09/20/21 Status: Orderedlisinopril 20 mg oral tablet 20 mg, Tablet, By Mouth, 05/26/22 9:00:00 EDT Start Date: 05/26/22 Stop Date: 05/26/22 Status: CompletedMiraLax oral powder for reconstitution = 17 Gm, By Mouth, Daily, for 14 days, dissolve in water before taking, # 238 Gm, 0 Refills, Acute 05/31/22 13:17:00 EDT, 05/17/22 13:17:00 EDT, REC Powder, [facility], Partial fill upon patient request [...] tablet, 4 Refills, Maintenance, 04/21/22 10:23:00 EDT, [facility], 162.56, cm, 02/03/22 10:08:00 EDT, Height, [...] Exam Date Time Procedure Performing Provider Status 05/24/22 1:05 PM C-Arm < 1 Hour Yeni Ceja; Jaswinder (Verified) Notes:(C-Arm < 1 Hour) Reason For Exam: HYPERKALEMIA INTERTROCHANTERIC RT FEMUR FXRESULT: C-Arm < 1 Hour Hip Comp 2 Views Right, C-Arm < 1 Hour INDICATION: Intertrochanteric fracture. COMPARISONS: None TECHNIQUE: Fluoroscopy support was provided. There was no radiologist in attendance. FLUOROSCOPY TIME: 01 minute 7.8 seconds EXPOSURE: 5 images TECHNOLOGIST TIME: 45 minutes FINDINGS: Intertrochanteric right hip fracture. Intramedullary charity and 2 fixating screws throughout the femoral head and neck. Interlocking screw in the distal right femur. IMPRESSION: See above. I have personally reviewed the images and I agree with this report. WSN: [id number] Ordering Physician: Pete Hope Dictated By: Ambrose Robertson MD Dictated Date/Time: 05/24/22 3:58 pm Reviewed By: Santi Liu MD Signed By: Santi Liu MD Signed Date/Time: 05/24/22 4:03 pm Transcribed By: JOHN Transcribed Date/Time: 05/24/22 3:47 pm Exam Date Time Procedure Performing Provider Status 05/24/22 1:05 PM XR Hip Comp 2 Views Right Telma Ceja; Jaswinder (Verified) Notes:(XR Hip Comp 2 Views Right) Reason For Exam: HYPERKALEMIA INTERTROCHANTERIC RT FEMUR FXRESULT: Hip Comp 2 Views Right Hip Comp 2 Views Right, C-Arm < 1 Hour INDICATION: Intertrochanteric fracture. COMPARISONS: None TECHNIQUE: Fluoroscopy support was provided. There was no radiologist in attendance. FLUOROSCOPY TIME: 01 minute 7.8 seconds EXPOSURE: 5 images TECHNOLOGIST TIME: 45 minutes FINDINGS: Intertrochanteric right hip fracture. Intramedullary charity and 2 fixating screws throughout the femoral head and neck. Interlocking screw in the distal right femur. IMPRESSION: See above. I have personally reviewed the images and I agree with this report. WSN: [id number] Ordering Physician: Pete Hope Dictated By: Ambrose Robertson MD Dictated Date/Time: 05/24/22 3:58 pm Reviewed By: Santi Liu MD Signed By: Santi Liu MD Signed Date/Time: 05/24/22 4:03 pm Transcribed By: JOHN Transcribed Date/Time: 05/24/22 3:47 pm Exam Date Time Procedure Performing Provider Status 05/23/22 12:19 PM XR Femur 2 Views Right Nathalie Patel; Jaswinder (V erified) Notes:(XR Femur 2 Views Right) Reason For Exam: TraumaRESULT: Femur 2 Views Right Femur 2 Views Right, 2 views Hx of Present Illness: fell with R hip pain, +HS, denies LOC; Reason: Trauma; Clinical Question(s): Fracture COMPARISON: Right hip x-ray performed earlier today. Right knee radiograph dated performed earlier today. FINDINGS: Redemonstration of intertrochanteric fracture with mild separation of the bone fragments by approximately 1 cm. There is irregular appearance of the medial tibial plateau, which is not well assessed with the available views. This is likely secondary to severe osteoarthritis seen on the dedicated knee radiographs. Small volume suprapatellar joint effusion and soft tissue swelling about the knee. There are atherosclerotic calcifications. IMPRESSION: 1. Redemonstration of a right intertrochanteric fracture. 2. Suprapatellar joint effusion and osteoarthritic changes in the knee were better assessed on recent knee radiograph. Findings were communicated to Dr. Lisandro Urrutia via secure messaging system Adreal at 12:49 PM. Message receipt was confirmed. WSN: [id number] Ordering Physician: Alexey Santos Dictated By: Beatriz Smith MD Dictated Date/Time: 05/23/22 12:53 p Reviewed By: Beatriz Smith MD Signed By: Beatriz Smith MD Signed Date/Time: 05/23/22 12:53 pm Transcribed By: JOHN Transcribed Date/Time: 05/23/22 12:43 pm Exam Date Time Procedure Performing Provider Status 05/23/22 9:37 AM Knee 1 or 2 Views Right Valentine Warner; Auth (Verified) Notes:(Knee 1 or 2 Views Right) Reason For Exam: with Pain;TraumaRESULT: Knee 1 or 2 Views Right Knee 2 Views Right Hx of Present Illness: Right knee pain, after trauma; Clinical Question(s): Fracture COMPARISON: Knee plain films 03/12/2021. FINDINGS: There is no evidence of acute or healing fracture, dislocation or bone lesion. Severe joint space narrowing of the medial compartment, with marginal osteophytosis along the medialjoint line, similar to prior. Evidence of chondrocalcinosis. No loose bodies or osteochondral defects. Small joint effusion, unchanged. Extensive vascular calcifications. IMPRESSION: Severe osteoarthritis. No acute bony abnormality. I have personally reviewed the images and I agree with this report. WSN: [id number] Ordering Physician: Lalito Urrutia Dictated By: Deyvi Barrera MD Dictated Date/Time: 05/23/22 9:46 am Reviewed By: Saskia Joseph MD Signed By: Saskia Joseph MD Signed Date/Time: 05/23/22 9:51 am Transcribed By: JOHN Transcribed Date/Time: 05/23/22 9:44 am Exam Date Time Procedure Performing Provider Status 05/23/22 8:48 AM XR Hip w/Pelvis 2-3 View Right Valentine Warner ; Auth (Verified) Notes:(XR Hip w/Pelvis 2-3 View Right) Reason For Exam: PainRESULT: XR Hip w/Pelvis 2-3 View Right XR Hip w/Pelvis 2-3 View Right HX OF PRESENT ILLNESS: fell with R hip pain, +HS, denies LOC; Clinical Question(s): Fracture COMPARISON: None. FINDINGS: Mildly angulated intertrochanteric fracture of the right proximal femur. Moderate degenerative changes in bilateral hip and sacroiliac joints. Moderate stool burden. IMPRESSION: Mildly angulated right femur intertrochanteric fracture. Results were conveyed by Cortext by Dr. Cole to Lalito Urrutia DO on 05/23/2022 at 9:01 AM . I have personally reviewed the images and I agree with this report. WSN: [id number] Ordering Physician: Lalito Urrutia Dictated By: Deyvi Barrera MD Dictated Date/Time: 05/23/22 9:01 am Reviewed By: Chris Cole MD Signed By: Chris Cole MD Signed Date/Time: 05/23/22 9:06 am Transcribed By: JOHN Transcribed Date/Time: 05/23/22 8:52 am Vital Signs Most recent to oldest 1 2 3 4 [Reference Range]: Height 163 cm 163 cm 163 cm (05/26/22 8:38 AM) (05/26/22 3:47 AM) (05/25/22 8:01 P M) Weight 58.5 kg (05/24/22 3:41 PM) Oxygen Saturation 99 % 95 % 96 % [94-100 %] (05/26/22 8:38 AM) (05/26/22 3:47 AM) (05/25/22 8:01 P M) Pulse Rate [55-90 bpm] 64 bpm 66 bpm 72 bpm (05/26/22 8:38 AM) (05/26/22 8:21 AM) (05/26/22 3:47 A M) Body Mass Index 22.02 kg/m2 [18.5-24.99 kg/m2] (05/24/22 3:41 PM) Blood Pressure 125/50 mm Hg 134/68 mm Hg 134/68 mm Hg 134/68 mm Hg [90-138/55-84 mm Hg] (05/26/22 8:38 AM) (05/26/22 8:21 AM) ( 8:21 AM) (05/26/22 8:21 AM) Respiratory Rate [16-30 20 br/min 20 br/min 20 br/min br/min] (05/26/22 2:19 PM) (05/26/22 9:23 AM) (05/26/22 9:20 A M) Temperature [96.8-100.4 99.2 DegF 98.0 DegF 98.2 DegF DegF] (05/26/22 8:38 AM) (05/26/22 3:47 AM) (05/25/22 8:01 P M) Liters per Minute 2 L/min 2 L/min 3 L/min (05/24/22 3:00 PM) (05/24/22 2:15 PM) (05/24/22 1:45 P M) Mode of Delivery Room air Room air Room air (Oxygen) (05/26/22 8:38 AM) (05/26/22 3:47 AM) (05/25/22 8:01 P M) Blood pressure sites Arm, right Arm, right Arm, right (05/26/22 8:38 AM) (05/26/22 3:47 AM) (05/25/22 8:01 P M) Temperature Route Oral Oral Oral (05/26/22 8:38 AM) (05/26/22 3:47 AM) (05/25/22 8:01 P M) Dry Weight 58.5 kg 58 kg (05/24/22 3:41 PM) (05/24/22 11:25 AM) Weight Obtained Via Patient/family stated (05/24/22 3:41 PM) Dry Weight Obtained Via Patient/family stated (05/24/22 3:41 PM) Social History Social History Type Response Smoking Status Former smoker, quit more padmini n 30 days ago; Never entered on: 10/28/21 Sex Note Jimenascrikeyona , CIS S: Sanit Heredia MD: Ambrose Trinh MD: SIGN Event Display: Result: Authored Date: [id number] Hip Comp 2 Views Right, C-Arm < 1 Hour INDICATION: Intertrochanteric fracture. COMPARISONS: None TECHNIQUE: Fluoroscopy support was provided. There was no radiologist in attendance. FLUOROSCOPY TIME: 01 minute 7.8 seconds EXPOSURE: 5 images TECHNOLOGIST TIME: 45 minutes FINDINGS: Intertrochanteric right hip fracture. Intramedullary charity and 2 fixating screws throughout the femoral head and neck. Interlocking screw in the distal right femur. IMPRESSION: See above. I have personally reviewed the images and I agree with this report. WSN: [id number] Ordering Physician: Pete Hope Dictated By: Ambrose Robertson MD Dictated Date/Time: 05/24/22 3:58 pm Reviewed By: Santi Liu MD Signed By: Santi Liu MD Signed Date/Time: 05/24/22 4:03 pm Transcribed By: JOHN Transcribed Date/Time: 05/24/22 3:47 pm XR Hip - right 2 Views SKYLER Sarabia S: Santi Heredia MD: Ambrose Trinh MD: SIGN Event Display: Result: Authored Date: [id number] Hip Comp 2 Views Right, C-Arm < 1 Hour INDICATION: Intertrochanteric fracture. COMPARISONS: None TECHNIQUE: Fluoroscopy support was provided. There was no radiologist in attendance. FLUOROSCOPY TIME: 01 minute 7.8 seconds EXPOSURE: 5 images TECHNOLOGIST TIME: 45 minutes FINDINGS: Intertrochanteric right hip fracture. Intramedullary charity and 2 fixating screws throughout the femoral head and neck. Interlocking screw in the distal right femur. IMPRESSION: See above. I have personally reviewed the images and I agree with this report. WSN: [id number] Ordering Physician: Pete Hope Dictated By: Ambrose Robertson MD Dictated Date/Time: 05/24/22 3:58 pm Reviewed By: Santi Liu MD Signed By: Santi Liu MD Signed Date/Time: 05/24/22 4:03 pm Transcribed By: JOHN Transcribed Date/Time: 05/24/22 3:47 pm XR Pelvis and Hip - right Views BHSPowerscribe , CIS S: TRANSCRIBE Chris Cole MD: VERIFY Deyvi Barrera MD: SIGN Event Display: Result: Authored Date: [id number] XR Hip w/Pelvis 2-3 View Right HX OF PRESENT ILLNESS: fell with R hip pain, +HS, denies LOC; Clinical Question(s): Fracture COMPARISON: None. FINDINGS: Mildly angulated intertrochanteric fracture of the right proximal femur. Moderate degenerative changes in bilateral hip and sacroiliac joints. Moderate stool burden. IMPRESSION: Mildly angulated right femur intertrochanteric fracture. Results were conveyed by Cortext by Dr. Cole to Lalito Urrutia DO on 05/23/2022 at 9:01 AM . I have personally reviewed the images and I agree with this report. WSN: [id number] Ordering Physician: Lalito Urrutia Dictated By: Deyvi Barrera MD Dictated Date/Time: 05/23/22 9:01 am Reviewed By: Chris Cole MD Signed By: Chris Cole MD Signed Date/Time: 05/23/22 9:06 am Transcribed By: JOHN Transcribed Date/Time: 05/23/22 8:52 am XR Knee - right 1 or 2 Views [facility]SPowerscribe , CIS S: TRANSCRIBE Saskia Joseph MD N: VERIFY Deyvi Barrera MD: SIGN Event Display: Result: Authored Date: Knee 2 Views Right Hx of Present Illness: Right knee pain, after trauma; Clinical Question(s): Fracture COMPARISON: Knee plain films 03/12/2021. FINDINGS: There is no evidence of acute or healing fracture, dislocation or bone lesion. Severe joint space narrowing of the medial compartment, with marginal osteophytosis along the medialjoint line, similar to prior. Evidence of chondrocalcinosis. No loose bodies or osteochondral defects. Small joint effusion, unchanged. Extensive vascular calcifications. IMPRESSION: Severe osteoarthritis. No acute bony abnormality. I have personally reviewed the images and I agree with this report. WSN: [id number] Ordering Physician: Lalito Urrutia Dictated By: Deyvi Barrera MD Dictated Date/Time: 05/23/22 9:46 am Reviewed By: Saskia Joseph MD Signed By: Saskia Joseph MD Signed Date/Time: 05/23/22 9:51 am Transcribed By: JOHN Transcribed Date/Time: 05/23/22 9:44 am XR Femur - right 2 Views [facility]SP[facility]erscribe , CIS S: TRANSCRIBE Sarah GORMAN, Devrim: VERIFY Event Display: Result: Authored Date: Femur 2 Views Right, 2 views Hx of Present Illness: fell with R hip pain, +HS, denies LOC; Reason: Trauma; Clinical Question(s): Fracture COMPARISON: Right hip x-ray performed earlier today. Right knee radiograph dated performed earlier today. FINDINGS: Redemonstration of intertrochanteric fracture with mild separation of the bone fragments by approximately 1 cm. There is irregular appearance of the medial tibial plateau, which is not well assessed with the available views. This is likely secondary to severe osteoarthritis seen on the dedicated knee radiographs. Small volume suprapatellar joint effusion and soft tissue swelling about the knee. There are atherosclerotic calcifications. IMPRESSION: 1. Redemonstration of a right intertrochanteric fracture. 2. Suprapatellar joint effusion and osteoarthritic changes in the knee were better assessed on recent knee radiograph. Findings were communicated to Dr. Lisandro Urrutia via secure messaging system Adreal at 12:49 PM. Message receipt was confirmed. WSN: [id number] Ordering Physician: Alexey Santos Dictated By: Beatriz Smith MD Dictated Date/Time: 05/23/22 12:53 p Reviewed By: Beatriz Smith MD Signed By: Beatriz Smith MD Signed Date/Time: 05/23/22 12:53 pm Transcribed By: JOHN Transcribed Date/Time: 05/23/22 12:43 pm Patient Care team information PersonnelName: Sherman GIBSON, Janelle Sierra Address: Address: [address] [place] [address]. [address] [place] [id number] [[email or web address]]
--- OUTSIDE RECORDS SUMMARY | 2022-09-25 05:35 | XMS_ITS | Continuity of Care Document ---
:1950 Author Organization [facility] Address [address] [place] [address]- Care Team Providers Name Role Phone Kusum Bradley MD Primary Care Physician Encounter [facility] Date(s): 01/20/21 - 02/19/21 [facility] [address] [place], [place] [address] Allergies, Adverse Reactions, Alerts Substance Reaction Severity [...] tetanus/diphtheria/pertussis, acel(Tdap) 09/13/12 Given 1Result Comment: [05/31/2017] [id number] Note: 1-13 STOP AND SHOP [id number] Comment: [12/31/2014 Uncharted] PUT IN TWICE Medications [...] tablet, 0 Refills, Maintenance, 01/04/21 15:38:00EDT, Tablet, [facility], Partial fill upon patient request if the prescription is for a schedule II opioid drug., 160, cm, 01/04/21 12:4... Start Date: 01/04/21 Status: OrderedEliquis 2.5 mg oral tablet 1 tablet = 2.5 mg, By Mouth, 2 times a day, discontinue coumadin, # 60 tablet, 5 Refills, Maintenance, 02/08/21 8:42:00 EDT, Tablet, [facility], 160, cm, 02/03/21 7:53:00 EDT, Height, 60.6, kg, 12/17/20 21:40:00 EDT, Dry Weight Start Date: 02/08/21 Stop Date: 08/07/21 Status: Orderedgabapentin 100 mg oral capsule 100 mg, 1, capsule, By Mouth, 2 times a day, # 180 capsule, Refills 3, Tot. Refills 3, Maintenance, 01/04/21 15:38:00 EDT, Route to Pharmacy Electronically, [facility], 160, cm, 01/04/21 12:45:00 EDT, Height, 60.6, kg, 12/17/20 21:40:00... Start Date: 01/04/21 Stop Date: 12/30/21 Status: Orderedlisinopril 5 mg oral tablet 5 mg, 1, tablet, By Mouth, Daily, # 30 tablet, Refills 6, Tot. Refills 6, Maintenance, 02/03/21 8:27:00 EDT, Route to Pharmacy Electronically, [facility], Partial fill upon patient request if [...] 01/04/21 15:37:00 EDT, Route to Pharmacy Electronically, [facility], Partial fill upon patient request if the prescription is for a schedule II opioi... Start Date: 01/04/21 Status: Orderedsertraline 50 mg oral tablet 1 tablet = 50 mg, By Mouth, Daily, # 30 tablet, 0 Refills, Maintenance, 01/04/21 15:34:00 EDT, Tablet, [facility], Partial fill upon patient request if the prescription is for a schedule II opioid drug., 160, cm, 01/04/21 12:45:00 EDT, H... Start Date: 01/04/21 Stop Date: 02/03/21 Status: Orderedsevelamer carbonate 800 mg oral tablet 1 tablet = 800 mg, By Mouth, 3 times a day, # 90 tablet, 0 Refills, Maintenance, 01/04/21 15:34:00 EDT, Tablet, [facility], Partial fill upon patient request if [...]
--- OUTSIDE RECORDS SUMMARY | 2022-09-25 05:35 | XMS_ITS | Continuity of Care Document ---
:1950 Author Organization [facility] Address [address] [place] [address]- Care Team Providers Name Role Phone Silke Pla MD Primary Care Physician [facility] Date(s): 10/28/21 - 11/01/[address] [address] Discharge Disposition: A-D/C Home Attending Physician: Jethro Hampton MD Admitting Physician: Jethro Hampton MD Referring Physician: Jethro Hampton MD Allergies, Adverse Reactions, Alerts Substance Reaction [...] tetanus/diphtheria/pertussis, acel(Tdap) 09/13/12 Given 1Result Comment: [05/31/2017] [id number] Note: 1-13 [facility] [id number] Comment: [12/31/2014 Uncharted] PUT IN TWICE Medications acetaminophen 325 mg oral tablet 975 mg, Tablet, By Mouth, 11/01/21 5:00:00 EDT Start Date: 11/01/21 Stop Date: 11/01/21 Status: Completedacetaminophen 325 mg oral tablet 975 [...] II opioid drug. Start Date: 05/14/21 Status: Orderedamoxicillin-clavulanate 875 mg-125 mg oral tablet = 875 mg, By Mouth, Daily, for 3 days, # 3 tablet, 0 Refills, Acute 11/04/21 10:43:00 EDT, 11/01/21 10:43:00 EDT, Tablet, [facility], Partial fill upon patient request if the prescriptionis for a schedule II opioid drug., 160, cm, 11/01... Start Date: 11/01/21 Stop Date: 11/04/21 Status: Orderedaspirin 81 mg oral delayed release [...] II opioid drug. Start Date: 09/20/21 Status: Orderedcarvedilol 25 mg oral tablet 25 mg, Tablet, By Mouth, Hold for: SBP < 100, 11/01/21 9:00:00 EDT Start Date: 11/01/21 Stop Date: 11/01/21 Status: CompletedcloNIDine 0.2 mg/24 hr transdermal film, [...] 11/01/21 10:43:00 EDT, Route to Pharmacy Electronically, [facility], Partial fill upon patient request if [...] oral capsule 100 mg, Capsule, By Mouth, Hold for: confusion, AMS, 11/01/21 9:00:00 EDT Start Date: 11/01/21 Stop Date: 11/01/21 Status: Completedgabapentin 100 mg oral capsule 100 mg, 1, [...] OrderedoxyCODONE 5 mg oral tablet 5 mg, Tablet, By Mouth, Every 6 hours, PRN for Pain , Moderate, Routine, 10/29/21 10:13:00 EDT Start Date: 10/29/21 Stop Date: 11/05/21 Status: OrderedoxyCODONE 5 mg oral tablet 5 mg, 1, tablet, By Mouth, Every 6 hours, PRN, for 3 days, # 12 tablet, Refills 0, Tot. Refills 0, Acute 11/04/21 10:43:00 EDT, Pain , Moderate, 11/01/21 10:43:00 EDT, Route to Pharmacy Electronically,[facility], Partial fill upon patie... Start Date: 11/01/21 Stop Date: 11/04/21 Status: Orderedsertraline 100 mg oral tablet 1 [...] NEEDED FOR INSOMNIA Start Date: 08/27/21 Status: OrderedValium 5 mg oral tablet 2.5 mg, 0.5, tablet, By Mouth, Every 8 hours, PRN, for 3 days, # 10 tablet, Refills 0, Tot. Refills 0, Acute 11/04/21 10:43:00 EDT, Spasm, 11/01/21 10:43:00 EDT, Route to Pharmacy Electronically, [facility], Partial fill upon patient req... 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) OA (osteoarthritis) of knee - both Active knees(Confirmed) Osteoarthritis of lumbar Active spine(Confirmed) Osteopenia(Confirmed) Active Peripheral neuropathy(Confirmed) Active Rectal prolapse(Confirmed) Active Vitamin D deficiency(Confirmed) Active 1Quit 1979 Vital Signs Most recent to oldest 1 2 3 4 [Reference Range]: Height 160 cm 160 cm 160 cm (11/01/21 5:02 AM) (11/01/21 12:42 AM) (10/31/21 9:02 PM) Weight 58.8 kg (10/29/21 8:28 PM) Oxygen Saturation 95 % 96 % 94 % [94-100 %] (11/01/21 7:00 AM) (11/01/21 5:02 AM) (11/01/21 12:42 AM) Pulse Rate [55-90 bpm] 58 bpm 54 bpm 56 bpm (11/01/21 7:55 AM) *L* (11/01/21 12:42 AM) (11/01/21 5:02 AM) Body Mass Index 22.97 [18.5-24.99] (10/29/21 8:28 PM) Blood Pressure 141/69 mm Hg 180/80 mm Hg 173/75 mm Hg [90-138/55-84 mm Hg] *H* *H* *H* (11/01/21 7:55 AM) (11/01/21 5:02 AM) (11/01/21 12:42 AM) Respiratory Rate [16-30 20 br/min 20 br/min 18 br/min 18 b r/min br/min] (11/01/21 8:55 AM) (11/01/21 7:55 AM) (11/01/21 6:16 AM) (11/01/21 6:16 AM) Temperature [96.8-100.4 98.2 DegF 98.1 DegF 97.7 DegF DegF] (11/01/21 7:00 AM) (11/01/21 5:02 AM) (11/01/21 12:42 AM) Liters per Minute 6 L/min (10/29/21 10:00 AM) Mode of Delivery Room air Room air Room air (Oxygen) (11/01/21 7:00 AM) (11/01/21 5:02 AM) (11/01/21 12:42 AM) Blood pressure sites Arm, left Arm, left Arm, left (11/01/21 7:00 AM) (11/01/21 5:02 AM) (11/01/21 12:42 AM) Temperature Route Oral Oral Oral (11/01/21 7:00 AM) (11/01/21 5:02 AM) (11/01/21 12:42 AM) Dry Weight 61 kg (10/28/21 5:43 PM) Weight Obtained Via Bed scale (10/29/21 8:28 PM) Dry Weight Obtained Via Patient/family stated (10/28/21 5:43 PM) Social History Social History Type Response Smoking Status Former smoker, quit more padmini n 30 days ago; Never entered on: 10/28/21 Sex
--- OUTSIDE RECORDS SUMMARY | 2022-09-25 05:35 | XMS_ITS | Continuity of Care Document ---
:1950 Author Organization [facility] Address Unavailable , Care Team Providers Name Role Phone Not on Staff, PCP Primary Care Physician Unavailable [facility] Date(s): 11/25/21 - 12/25/21 [facility] Attending Physician: Aniceto Multani Admitting Physician: Aniceto [...] tetanus/diphtheria/pertussis, acel(Tdap) 09/13/12 Given 1Result Comment: [05/31/2017] [id number] Note: 1-13 [facility] [id number] Comment: [12/31/2014 Uncharted] PUT IN TWICE Medications [...] 10:43:00 EDT, Route to Pharmacy Electronically, [facility], Partial fill upon patient request [...] II opioid drug. Start Date: 09/20/21 Status: OrderedNIFEdipine = 30 mg, By Mouth, [...] drug. Start Date: 03/08/21 Status: Orderedsevelamer carbonate By Mouth, 0 Refills, Maintenance, 12/24/21 8:26:00 EDT, Partial fill upon patient request if the prescription is for a schedule II opioid drug. Start Date: 12/24/21 Status: OrderedtraZODone 50 mg oral tablet TAKE [...]
--- OUTSIDE RECORDS SUMMARY | 2022-09-25 05:35 | XMS_ITS | Continuity of Care Document ---
:[address] [facility] Address [address] [place] [address]- Care Team Providers Name Role Phone Silke Pal MD Primary Care Physician [facility]counter [facility] Date(s): 10/04/21 - 11/03/21 [facility] [address] [place], [place] [address] Allergies, Adverse Reactions, Alerts Substance Reaction Severity [...] tetanus/diphtheria/pertussis, acel(Tdap) 09/13/12 Given 1Result Comment: [05/31/2017] [id number] Note: 1-13 [facility] [id number] Comment: [12/31/2014 Uncharted] PUT IN TWICE Medications [...] 11/04/21 10:43:00 EDT, 11/01/21 10:43:00 EDT, Tablet, [facility], Partial fill upon patient [...] 11/01/21 10:43:00 EDT, Route to Pharmacy Electronically, [facility], Partial fill upon patient [...] Moderate, 11/01/21 10:43:00 EDT, Route to Pharmacy Electronically,[facility], Partial fill upon patie... Start Date: [...] 11/01/21 10:43:00 EDT, Route to Pharmacy Electronically, [facility], Partial fill upon patient req... Start [...]
--- OUTSIDE RECORDS SUMMARY | 2022-09-25 05:35 | XMS_ITS | Continuity of Care Document ---
:1950 Author Organization [facility] Address [address] [place] [address]- Care Team Providers Name Role Phone Demarco GORMAN, Silke Primary Care Physician [facility] Date[facility]s): 07/13/21 - 08/12/21 [facility] [address] [place], [place] [address] Attending Physician: Aniceto Multani Admitting Physician: AdmtrAniceto Referring Physician: Admtr, ArMario Allergies, Adverse Reactions, Alerts Substance Reaction Severity [...] tetanus/diphtheria/pertussis, acel(Tdap) 09/13/12 Given 1Result Comment: [05/31/2017] [id number] Note: 1-13 [facility] [id number] Comment: [12/31/2014 Uncharted] PUT IN TWICE Medications [...] 01/17/21 14:19:00 EDT, Route to Pharmacy Electronically, [facility], Partial fill upon patient request if [...] tablet, 0 Refills, Maintenance, 01/04/21 15:38:00EDT, Tablet, [facility], Partial fill upon patient request if the prescription is for a schedule II opioid drug., 160, cm, 01/04/21 12:4... Start Date: 01/04/21 Status: OrderedEliquis 2.5 mg oral tablet 1 tablet = 2.5 mg, By Mouth, 2 times a day, discontinue coumadin, # 60 tablet, 5 Refills, Maintenance, 02/08/21 8:42:00 EDT, Tablet, [facility], 160, cm, 02/03/21 7:53:00 [...] 01/04/21 15:38:00 EDT, Route to Pharmacy Electronically, [facility], 160, cm, 01/04/21 12:45:00 EDT, Height, [...] 01/17/21 14:20:00 EDT, Route to Pharmacy Electronically, [facility], Partial fill upon patient request if the prescription is for a schedule II opio... Start Date: 01/17/21 Status: Orderedmetoprolol 100 mg oral tablet, extended release 100 mg, 1, tablet, By Mouth, Daily, # 90 tablet, Refills 3, Tot. Refills 3, Maintenance, 07/07/21 10:32:00 EST, Route to Pharmacy Electronically, [facility], Partial fill upon patient request if [...] 6 Refills, Maintenance, 03/03/21 9:45:00 EDT, Tablet, [facility], Partial fill upon patient request if [...] 0 Refills, Maintenance, 01/04/21 15:34:00 EDT, Tablet, [facility], Partial fill upon patient [...] 07/29/21 9:40:00 EST, Route to Pharmacy Electronically, [facility], 162, cm, 07/06/21 9:31:00 EST, Height, 57, kg, 03/09/21 16:10:00 EDTDr... Start Date: 07/29/21 Stop Date: 01/25/22 Status: [...] Rectal prolapse(Confirmed) Active Vitamin D deficiency(Confirmed) Active 1Q1978 Social History Social History Type Response Smoking Status Former smoker entered on: 03/30/18 Sex
--- OUTSIDE RECORDS SUMMARY | 2022-09-25 05:35 | XMS_ITS | Continuity of Care Document ---
:1950 Author Organization [facility] Address [address] [place] [address]- Care Team Providers Name Role Phone Kusum Bradley MD Primary Care Physician Encounter [facility] Date(s): 01/13/21 - 02/12/21 [facility] [address] [place] [id number] Allergies, Adverse Reactions, Alerts [...] tetanus/diphtheria/pertussis, acel(Tdap) 09/13/12 Given 1Result Comment: [05/31/2017] [id number] Note: 1-13 [facility] [id number] Comment: [12/31/2014 Uncharted] PUT IN TWICE Medications [...] 0 Refills, Maintenance, 01/04/21 15:38:00EDT, Tablet, [facility], Partial fill upon patient request if the prescription is for a schedule II opioid drug., 160, cm, 01/04/21 12:4... Start Date: 01/04/21 Status: OrderedEliquis 2.5 mg oral tablet 1 tablet = 2.5 mg, By Mouth, 2 times a day, discontinue coumadin, # 60 tablet, 5 Refills, Maintenance, 02/08/21 8:42:00 EDT, Tablet, [facility], 160, cm, 02/03/21 7:53:00 EDT, Height, 60.6, kg, 12/17/20 21:40:00 EDT, Dry Weight Start Date: 02/08/21 Stop Date: 08/07/21 Status: Orderedgabapentin 100 mg oral capsule 100 mg, 1, capsule, By Mouth, 2 times a day, # 180 capsule, Refills 3, Tot. Refills 3, Maintenance, 01/04/21 15:38:00 EDT, Route to Pharmacy Electronically, [facility], 160, cm, 01/04/21 12:45:00 EDT, Height, 60.6, kg, 12/17/20 21:40:00... Start Date: 01/04/21 Stop Date: 12/30/21 Status: Orderedlisinopril 5 mg oral tablet 5 mg, 1, tablet, By Mouth, Daily, # 30 tablet, Refills 6, Tot. Refills 6, Maintenance, 02/03/21 8:27:00 EDT, Route to Pharmacy Electronically, [facility], Partial fill upon patient [...] 01/04/21 15:37:00 EDT, Route to Pharmacy Electronically, [facility], Partial fill upon patient request if the prescription is for a schedule II opioi... Start Date: 01/04/21 Status: Orderedsertraline 50 mg oral tablet 1 tablet = 50 mg, By Mouth, Daily, # 30 tablet, 0 Refills, Maintenance, 01/04/21 15:34:00 EDT, Tablet, [facility], Partial fill upon patient request if the prescription is for a schedule II opioid drug., 160, cm, 01/04/21 12:45:00 EDT, H... Start Date: 01/04/21 Stop Date: 02/03/21 Status: Orderedsevelamer carbonate 800 mg oral tablet 1 tablet = 800 mg, By Mouth, 3 times a day, # 90 tablet, 0 Refills, Maintenance, 01/04/21 15:34:00 EDT, Tablet, [facility], Partial fill upon patient request [...]
--- OUTSIDE RECORDS SUMMARY | 2022-09-25 05:35 | XMS_ITS | Continuity of Care Document ---
:1950 Author Organization [facility] Address [address] [place] [address]- Care Team Providers Name Role Phone Silke Pal MD Primary Care Physician [facility] Date[facility]s): 08/27/21 - 09/03/21 [facility] [address] [place], [place] [address] Encounter Diagnosis Peripheral neuropathy (Discharge Diagnosis) - 08/27/21 Hypertension (Discharge Diagnosis) - 08/27/21 ESRD - End stage renal disease (Discharge Diagnosis) - 08/27/21 Attending Physician: Silke Pal MD Allergies, Adverse [...] tetanus/diphtheria/pertussis, acel(Tdap) 09/13/12 Given 1Result Comment: [05/31/2017] [id number] Note: 1-13 [facility] [id number] Comment: [12/31/2014 Uncharted] PUT IN TWICE Medications [...] 01/17/21 14:19:00 EDT, Route to Pharmacy Electronically, [facility], Partial fill upon patient request if [...] tablet, 0 Refills, Maintenance, 01/04/21 15:38:00EDT, Tablet, [facility], Partial fill upon patient request if the prescription is for a schedule II opioid drug., 160, cm, 01/04/21 12:4... Start Date: 01/04/21 Status: OrderedEliquis 2.5 mg oral tablet See Instructions, TAKE 1 TABLET BY MOUTH TWO TIMES A DAY, # 56 tablet, 10 Refills, [facility], 162, cm, 07/06/21 9:31:00 EST, [...] EDT, Route to Pharmacy Electronically, [facility], 160, cm, 01/04/21 12:45:00 [...] 14:20:00 EDT, Route to Pharmacy Electronically, [facility] 3, Partial fill upon patient request if the prescription is for a schedule II opio... Start Date: 01/17/21 Status: Orderedmetoprolol 100 mg oral tablet, extended release 100 mg, 1, tablet, By Mouth, Daily, # 90 tablet, Refills 3, Tot. Refills 3, Maintenance, 07/07/21 10:32:00 EST, Route to Pharmacy Electronically, [facility], Partial fill upon patient request if [...] Refills, Maintenance, 03/03/21 9:45:00 EDT, Tablet, [facility] 3, Partial fill upon patient [...] Refills, Maintenance, 01/04/21 15:34:00 EDT, Tablet, [facility], Partial fill upon patient [...] 07/29/21 9:40:00 EST, Route to Pharmacy Electronically, [facility], 162, cm, 07/06/21 9:31:00 [...] prolapse(Confirmed) Active Vitamin D deficiency(Confirmed) Active 1Q1978 Diagnosis Diagnosis Type Effective Dates Health Clinical Infor mant Status Service Peripheral Discharge 08/27/21 neuropathy Diagnosis Hypertension Discharge 08/27/21 Diagnosis ESRD - End stage Discharge 08/27/21 renal disease Diagnosis Social History Social History Type Response Smoking Status Former smoker entered on: 03/30/18 Sex
--- OUTSIDE RECORDS SUMMARY | 2022-09-25 05:36 | XMS_ITS | Continuity of Care Document ---
:1950 Author Organization [facility] Address [address] [place] [address]- Care Team Providers Name Role Phone Kusum Bradley MD Primary Care Physician Encounter [facility] Date(s): 05/15/20 - 06/20/[address] [address] Attending Physician: Jethro Hampton MD Admitting Physician: [...] tetanus/diphtheria/pertussis, acel(Tdap) 09/13/12 Given 1Result Comment: [05/31/2017] [id number] Note: 1-13 [facility] [id number] Comment: [12/31/2014 Uncharted] PUT IN TWICE Medications amLODIPine 10 mg oral tablet 10 mg, 1, tablet, By Mouth, Daily, # 30 tablet, Refills 0, Maintenance, 04/13/20 9:57:00 EDT Start Date: 04/13/20 Status: Orderedcarvedilol 25 mg oral tablet 25 mg, 1, tablet, By Mouth, 2 times a day, # 180 tablet, Refills 3, Tot. Refills 3, Maintenance, 11/14/18 9:54:14 EDT, Route to Pharmacy Electronically, [id number], [facility] Start Date: 11/14/18 [...] 12/17/18 14:22:03 EDT, Route to Pharmacy Electronically, [id number], [facility] Start Date: [...]
--- OUTSIDE RECORDS SUMMARY | 2022-09-25 05:36 | XMS_ITS | Continuity of Care Document ---
:1950 Author Organization [facility] Address [address] [place] [address]- Care Team Providers Name Role Phone Silke Pal MD Primary Care Physician Encounter [facility] Date(s): 05/12/21 - 06/11/21 [facility] [address] [place] [id number] Attending Physician: Aniceto Multani Admitting Physician: AdmAniceto [...] tetanus/diphtheria/pertussis, acel(Tdap) 09/13/12 Given 1Result Comment: [05/31/2017] [id number] Note: 1-13 [facility] [id number] Comment: [12/31/2014 Uncharted] PUT IN TWICE Medications [...] 01/17/21 14:19:00 EDT, Route to Pharmacy Electronically, [facility], Partial fill upon patient [...] tablet, 0 Refills, Maintenance, 01/04/21 15:38:00EDT, Tablet, [facility], Partial fill upon patient request if the prescription is for a schedule II opioid drug., 160, cm, 01/04/21 12:4... Start Date: 01/04/21 Status: OrderedEliquis 2.5 mg oral tablet 1 tablet = 2.5 mg, By Mouth, 2 times a day, discontinue coumadin, # 60 tablet, 5 Refills, Maintenance, 02/08/21 8:42:00 EDT, Tablet, [facility], 160, cm, 02/03/21 7:53:00 [...] 01/04/21 15:38:00 EDT, Route to Pharmacy Electronically, [facility], 160, cm, 01/04/21 12:45:00 [...] 01/17/21 14:20:00 EDT, Route to Pharmacy Electronically, [facility], Partial fill upon patient [...] 6 Refills, Maintenance, 03/03/21 9:45:00 EDT, Tablet, [facility], Partial fill upon patient [...] 0 Refills, Maintenance, 01/04/21 15:34:00 EDT, Tablet, [facility], Partial fill upon patient [...]
--- OUTSIDE RECORDS SUMMARY | 2022-09-25 05:36 | XMS_ITS | Continuity of Care Document ---
:1950 Author Organization [facility] Address [address] [place] [address]- Care Team Providers Name Role Phone Silke Pal MD Primary Care Physician [facility] Date(s): 11/04/21 - 11/11/21 [facility] [address] [place], [place] [address] Attending Physician: Silke Pal MD Allergies, Adverse [...] tetanus/diphtheria/pertussis, acel(Tdap) 09/13/12 Given 1Result Comment: [05/31/2017] [id number] Note: 1-13 [facility] [id number] Comment: [12/31/2014 Uncharted] PUT IN TWICE Medications [...] 11/01/21 10:43:00 EDT, Route to Pharmacy Electronically, [facility], Partial fill upon patient [...]
--- OUTSIDE RECORDS SUMMARY | 2022-09-25 05:36 | XMS_ITS | Continuity of Care Document ---
:1950 Author Organization [facility] Address [address] [place] [address]- Care Team Providers Name Role Phone Kusum Bradley MD Primary Care Physician [place] [facility] [place]s): 01/05/21 - 02/12/21 [facility] [address] [place] [address] Attending Physician: Mireya Brown MD Referring Physician: Kevon Ugalde MD Allergies, Adverse Reactions, Alerts Substance Reaction [...] tetanus/diphtheria/pertussis, acel(Tdap) 09/13/12 Given 1Result Comment: [05/31/2017] [id number] Note: 1-13 [facility] [id number] Comment: [12/31/2014 Uncharted] PUT IN TWICE Medications [...] tablet, 0 Refills, Maintenance, 01/04/21 15:38:00EDT, Tablet, [facility], Partial fill upon patient request if the prescription is for a schedule II opioid drug., 160, cm, 01/04/21 12:4... Start Date: 01/04/21 Status: OrderedEliquis 2.5 mg oral tablet 1 tablet = 2.5 mg, By Mouth, 2 times a day, discontinue coumadin, # 60 tablet, 5 Refills, Maintenance, 02/08/21 8:42:00 EDT, Tablet, [facility], 160, cm, 02/03/21 7:53:00 EDT, Height, 60.6, kg, 12/17/20 21:40:00 EDT, Dry Weight Start Date: 02/08/21 Stop Date: 08/07/21 Status: Orderedgabapentin 100 mg oral capsule 100 mg, 1, capsule, By Mouth, 2 times a day, # 180 capsule, Refills 3, Tot. Refills 3, Maintenance, 01/04/21 15:38:00 EDT, Route to Pharmacy Electronically, [facility], 160, cm, 01/04/21 12:45:00 EDT, Height, 60.6, kg, 12/17/20 21:40:00... Start Date: 01/04/21 Stop Date: 12/30/21 Status: Orderedlisinopril 5 mg oral tablet 5 mg, 1, tablet, By Mouth, Daily, # 30 tablet, Refills 6, Tot. Refills 6, Maintenance, 02/03/21 8:27:00 EDT, Route to Pharmacy Electronically, [facility], Partial fill upon patient request [...] 01/04/21 15:37:00 EDT, Route to Pharmacy Electronically, [facility], Partial fill upon patient request if the prescription is for a schedule II opioi... Start Date: 01/04/21 Status: Orderedsertraline 50 mg oral tablet 1 tablet = 50 mg, By Mouth, Daily, # 30 tablet, 0 Refills, Maintenance, 01/04/21 15:34:00 EDT, Tablet, [facility], Partial fill upon patient request if the prescription is for a schedule II opioid drug., 160, cm, 01/04/21 12:45:00 EDT, H... Start Date: 01/04/21 Stop Date: 02/03/21 Status: Orderedsevelamer carbonate 800 mg oral tablet 1 tablet = 800 mg, By Mouth, 3 times a day, # 90 tablet, 0 Refills, Maintenance, 01/04/21 15:34:00 EDT, Tablet, [facility], Partial fill upon patient request [...]
--- OUTSIDE RECORDS SUMMARY | 2022-09-25 05:36 | XMS_ITS | Continuity of Care Document ---
:1950 Author Organization [facility] Address [address] [place] [address]- Care Team Providers Name Role Phone Silke Pal MD Primary Care Physician [facility]counter [facility] Date(s): 06/06/22 - 07/21/22 [facility] [address] [place], [place] [address] Attending Physician: Silke Pal MD Allergies, Adverse [...] tetanus/diphtheria/pertussis, acel(Tdap) 09/13/12 Given 1Result Comment: [05/31/2017] [id number] Note: 1-13 [facility] [id number] Comment: [12/31/2014 Uncharted] PUT IN TWICE Medications [...] Confirmed Active (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 Depression, major Confirmed Active [...] Care Team PersonnelName: Quan Virgen RN Position: [facility] RN Member Role: Primary Care Nurse Name: Susana Chaney LPN Position: [facility] RN Member Role: Primary Care Nurse Name: Betty Cabrera NP Position: [facility] Associate Professional Member Role: Primary Care Nurse Address: Address: [address] [place] [address]- Name: Uma Ndiaye Position: [facility] Outreach Member Role: Lifetime Consulting Physician Name: Kirk Morse DO Position: [facility] Renal MD Member Role: Lifetime Consulting Physician Address: Address: [address] [place], [place] [address] [place], [place] [address] Name: Uma Valdovinos Position: [facility] Outreach Member Role: Lifetime Consulting Physician Name: Janelle Arora RN Position: [facility] RN Member Role: Primary Care Nurse Name: Prasanna Belle III, RN Position: [facility] RN Member Role: Primary Care Nurse Name: Suellen Lazcano RN Position: [facility] ED RN W/OE and Tasks Member Role: Primary Care Nurse Name: Rubia Pardo LPN Position: [facility] RN Member Role: Primary Care Nurse Name: Florencio Ferreira MD Position: [facility] Renal MD Member Role: Lifetime Consulting Physician Address: Address: [address] [place] [address] [address] [facility], [place] [address]- [place] Name: Priscila López RN Position: [facility] RN Member Role: Primary Care Nurse Name: Silke Pal MD Position: [facility] Primary Care Physician Member Role: PCP Address: Address: [address] [place] [address] [facility] [place] [address]- Name: Bonnie Ann RN Position: [facility] RN Member Role: Primary Care Nurse Name: Felipa Burr RN Position: [facility] RN Member Role: Primary Care Nurse Name: Jennifer Alex RN Position: S RN Member Role: Primary Care Nurse Name: Saskia Fontana RN Position: [facility] RN Member Role: Primary Care Nurse Name: Beatris Gaytan RN Position: [facility] RN Member Role: Primary Care Nurse Care Team Related PersonsName: AUDREY HEARN Address: home [address] [place] [address] Name: YUSUF HEARN Address: home [address] [place] [address]
--- OUTSIDE RECORDS SUMMARY | 2022-09-25 05:36 | XMS_ITS | Continuity of Care Document ---
:1950 Author Organization [facility] Address [address] [place] [address]- Care Team Providers Name Role Phone Silke Pal MD Primary Care Physician [facility] Date(s): 06/14/21 - 07/28/21 [facility] [address] [place], [place] [address] Attending Physician: Jethro Hampton MD Referring Physician: [...] tetanus/diphtheria/pertussis, acel(Tdap) 09/13/12 Given 1Result Comment: [05/31/2017] [id number] Note: 1-13 [facility] [id number] Comment: [12/31/2014 Uncharted] PUT IN TWICE Medications [...] 01/17/21 14:19:00 EDT, Route to Pharmacy Electronically, [facility], Partial fill upon patient request if [...] tablet, 0 Refills, Maintenance, 01/04/21 15:38:00EDT, Tablet, [facility] 3, Partial fill upon patient request if the prescription is for a schedule II opioid drug., 160, cm, 01/04/21 12:4... Start Date: 01/04/21 Status: OrderedEliquis 2.5 mg oral tablet 1 tablet = 2.5 mg, By Mouth, 2 times a day, discontinue coumadin, # 60 tablet, 5 Refills, Maintenance, 02/08/21 8:42:00 EDT, Tablet, [facility], 160, cm, 02/03/21 [...] 01/04/21 15:38:00 EDT, [facility], 160, cm, 01/04/21 12:45:00 EDT, Height, [...] 01/17/21 14:20:00 EDT, Route to Pharmacy Electronically, [facility], Partial fill upon patient request if the prescription is for a schedule II opio... Start Date: 01/17/21 Status: Orderedmetoprolol 100 mg oral tablet, extended release 100 mg, 1, tablet, By Mouth, Daily, # 90 tablet, Refills 3, Tot. Refills 3, Maintenance, 07/07/21 10:32:00 EST, Route to Pharmacy Electronically, [facility], Partial fill upon patient request if [...] 6 Refills, Maintenance, 03/03/21 9:45:00 EDT, Tablet, [facility], Partial fill upon patient request if [...] 0 Refills, Maintenance, 01/04/21 15:34:00 EDT, Tablet, [facility], Partial fill upon patient request if [...]
--- OUTSIDE RECORDS SUMMARY | 2022-09-25 05:36 | XMS_ITS | Continuity of Care Document ---
:1950 Author Organization [facility] Address [address] [place] [address] [address] [place] [address]- Care Team Providers Name Role Phone Demarco GORMAN, Silke Primary Care Physician Encounter [facility] Date(s): 02/25/21 - 03/04/[address] [place] [address]- Encounter Diagnosis Rectal prolapse (Discharge Diagnosis) - 02/25/21 Attending Physician: Jethro Hampton MD Referring Physician: Not on Staff, Referring [...] 14:19:00 EDT, Route to Pharmacy Electronically, [facility], Partial fill upon patient [...] II opioid drug. Start Date: 01/13/21 Status: Orderedmetoprolol 100 mg oral tablet, extended release 100 mg, 1, tablet, By Mouth, Daily, # 30 tablet, Refills 0, Tot. Refills 0, Maintenance, 01/17/21 14:20:00 EDT, Route to Pharmacy Electronically, [facility], Partial fill upon patient request if the prescription is for a schedule II opio... Start Date: 01/17/21 Status: Orderedsertraline 50 mg oral tablet 1 [...] opioid drug. Start Date: 01/13/21 Status: Ordered Problem List Diagnosis Diagnosis Type Effective Dates Health Status Clinical In formant Service Rectal prolapse Discharge 02/25/21 Diagnosis Vital Signs Most recent to oldest [Reference Range]: 1 Weight 57.7 kg (02/25/21 1:38 PM) Pulse Rate [55-90 bpm] 58 bpm (02/25/21 1:38 PM) Blood Pressure [90-138/55-84 mm Hg] 160/68 mm Hg *H* (02/25/21 1:38 PM) Temperature [96.8-100.4 DegF] 97.4 DegF (02/25/21 1:38 PM) Blood pressure sites Arm, right (02/25/21 1:38 PM) Temperature Route Temporal (02/25/21 1:38 PM)
--- OUTSIDE RECORDS SUMMARY | 2022-09-25 05:36 | XMS_ITS | Continuity of Care Document ---
:[address] [facility] Address [address] [place] [address]- Care Team Providers Name Role Phone Kusum Bradley MD Primary Care Physician Encounter [facility] Date(s): 01/05/21 - 02/04/21 [facility] [address] [address]- Attending Physician: Aniceto Multani Admitting Physician: AdmtrAniceto Referring Physician: Admtr, Ar8 Allergies, Adverse Reactions, [...] tetanus/diphtheria/pertussis, acel(Tdap) 09/13/12 Given 1Result Comment: [05/31/2017] [id number] Note: 1-13 [facility] [id number] Comment: [12/31/2014 Uncharted] PUT IN TWICE Medications [...] tablet, 0 Refills, Maintenance, 01/04/21 15:38:00EDT, Tablet, [facility], Partial fill upon patient request if the prescription is for a schedule II opioid drug., 160, cm, 01/04/21 12:4... Start Date: 01/04/21 Status: Orderedgabapentin 100 mg oral capsule 100 mg, 1, capsule, By Mouth, 2 times a day, # 180 capsule, Refills 3, Tot. Refills 3, Maintenance, 01/04/21 15:38:00 EDT, Route to Pharmacy Electronically, [facility], 160, cm, 01/04/21 12:45:00 EDT, Height, 60.6, kg, 12/17/20 21:40:00... Start Date: 01/04/21 Stop Date: 12/30/21 Status: Orderedlisinopril 5 mg oral tablet 5 mg, 1, tablet, By Mouth, Daily, # 30 tablet, Refills 6, Tot. Refills 6, Maintenance, 02/03/21 8:27:00 EDT, Route to Pharmacy Electronically, [facility], Partial fill upon patient [...] 01/04/21 15:37:00 EDT, Route to Pharmacy Electronically, [facility], Partial fill upon patient request if the prescription is for a schedule II opioi... Start Date: 01/04/21 Status: Orderedsertraline 50 mg oral tablet 1 tablet = 50 mg, By Mouth, Daily, # 30 tablet, 0 Refills, Maintenance, 01/04/21 15:34:00 EDT, Tablet, [facility], Partial fill upon patient request if the prescription is for a schedule II opioid drug., 160mayte, 01/04/21 12:45:00 EDT, H... Start Date: 01/04/21 Stop Date: 02/03/21 Status: Orderedsevelamer carbonate 800 mg oral tablet 1 tablet = 800 mg, By Mouth, 3 times a day, # 90 tablet, 0 Refills, Maintenance, 01/04/21 15:34:00 EDT, Tablet, [facility] 3, Partial fill upon patient request if the prescription is for a schedule II opioid drug., 160 cm, 01/04/21 12:45:... Start Date: 01/04/21 Status: Orderedwarfarin 2 mg oral tablet See Instructions, Take 1 to 3 tablets By Mouth Daily in the evening as directed by coumadin clinic, # 90 tablet, 5 Refills, Maintenance, 02/01/21 10:38:00 EDT, [facility], This replaces Eliquis which is too expensive., 160, cm, 01/19/21... Start Date: 02/01/21 Status: Ordered Problem List Condition Effective Dates [...]
--- OUTSIDE RECORDS SUMMARY | 2022-09-25 05:36 | XMS_ITS | Continuity of Care Document ---
:1950 Author Organization [facility] Address [address] [place] [address]- Care Team Providers Name Role Phone Demarco GORMAN, Silke Primary Care Physician [facility]counter [facility] Date(s): 07/06/21 - 07/13/21 [facility] [address] [place], [place] [address] Encounter Diagnosis Preop examination (Discharge Diagnosis) - 07/06/21 Attending Physician: Cherise Mcclain NP Referring Physician: Jethro Hampton MD Allergies, Adverse [...] tetanus/diphtheria/pertussis, acel(Tdap) 09/13/12 Given 1Result Comment: [05/31/2017] [id number] Note: 1-13 [facility] [id number] Comment: [12/31/2014 Uncharted] PUT IN TWICE Medications [...] 01/17/21 14:19:00 EDT, Route to Pharmacy Electronically, [facility], Partial fill upon patient [...] Maintenance, 01/04/21 15:38:00EDT, Tablet, [facility], Partial fill upon patient request if the prescription is for a schedule II opioid drug., 160, cm, 01/04/21 12:4... Start Date: 01/04/21 Status: OrderedEliquis 2.5 mg oral tablet 1 tablet = 2.5 mg, By Mouth, 2 times a day, discontinue coumadin, # 60 tablet, 5 Refills, Maintenance, 02/08/21 8:42:00 EDT, Tablet, [facility], 160, cm, 02/03/21 7:53:00 [...] 01/04/21 15:38:00 EDT, Route to Pharmacy Electronically, [facility], 160, cm, 01/04/21 12:45:00 EDT, Height, [...] 01/17/21 14:20:00 EDT, Route to Pharmacy Electronically, [facility], Partial fill upon patient request if the prescription is for a schedule II opio... Start Date: 01/17/21 Status: Orderedmetoprolol 100 mg oral tablet, extended release 100 mg, 1, tablet, By Mouth, Daily, # 90 tablet, Refills 3, Tot. Refills 3, Maintenance, 07/07/21 10:32:00 EST, Route to Pharmacy Electronically, [facility], Partial fill upon patient request if [...] 6 Refills, Maintenance, 03/03/21 9:45:00 EDT, Tablet, [facility], Partial fill upon patient [...] 0 Refills, Maintenance, 01/04/21 15:34:00 EDT, Tablet, [facility], Partial fill upon patient [...] Dates Health Clinical Infor mant Status Service Preop examination Discharge 07/06/21 Diagnosis Vital Signs Most recent to oldest [Reference Range]: 1 2 Height 162 cm 162 cm (07/06/21 9:31 AM) (07/06/21 9:10 AM) Weight 63.0 kg (07/06/21 9:10 AM) Oxygen Saturation [94-100 %] 99 % (07/06/21 9:10 AM) Pulse Rate [55-90 bpm] 63 bpm (07/06/21 9:10 AM) Body Mass Index [18.5-24.99] 24.01 (07/06/21 9:10 AM) Blood Pressure [90-138/55-84 mm Hg] 170/84 mm Hg 176/ 90 mm Hg *H* *H* (07/06/21 9:31 AM) (07/06/21 9:10 AM) Temperature [96.8-100.4 DegF] 98.6 DegF (07/06/21 9:10 AM) Blood pressure sites Arm, left (07/06/21 9:31 AM) Temperature Route Temporal (07/06/21 9:10 AM) Social History Social History Type Response Smoking Status Former smoker entered on: 03/30/18 Sex
--- OUTSIDE RECORDS SUMMARY | 2022-09-25 05:36 | XMS_ITS | Continuity of Care Document ---
:1950 Author Organization [facility] Address [address] [place] [address]- Care Team Providers Name Role Phone Kusum Bradley MD Primary Care Physician Encounter [facility] Date(s): 06/09/20 - 08/09/[address] [address] Discharge Disposition: A-D/C Home Attending Physician: Jethro [...] tetanus/diphtheria/pertussis, acel(Tdap) 09/13/12 Given 1Result Comment: [05/31/2017] [id number] Note: 1-13 [facility] [id number] Comment: [12/31/2014 Uncharted] PUT IN TWICE Medications amLODIPine 10 mg oral tablet 10 mg, 1, tablet, By Mouth, Daily, # 30 tablet, Refills 0, Maintenance, 04/13/20 9:57:00 EDT Start Date: 04/13/20 Status: Orderedcarvedilol 25 mg oral tablet 25 mg, 1, tablet, By Mouth, 2 times a day, # 180 tablet, Refills 3, Tot. Refills 3, Maintenance, 11/14/18 9:54:14 EDT, Route to Pharmacy Electronically, [id number], [facility] Start Date: 11/14/18 [...] 12/17/18 14:22:03 EDT, Route to Pharmacy Electronically, [id number], [facility] Start Date: [...]
--- OUTSIDE RECORDS SUMMARY | 2022-09-25 05:36 | XMS_ITS | Continuity of Care Document ---
:1950 Author Organization [facility] Address [address] [place] [address]- Care Team Providers Name Role Phone Silke Pal MD Primary Care Physician [place] [facility] [place]s): 01/29/22 - 03/10/[address] [address] Attending Physician: Raissa Dubose MD Admitting Physician: [...] tetanus/diphtheria/pertussis, acel(Tdap) 09/13/12 Given 1Result Comment: [05/31/2017] [id number] Note: 1-13 [facility] [id number] Comment: [12/31/2014 Uncharted] PUT IN TWICE Medications [...] Pharmacy Electronically, [facility], Partial fill upon patient request if [...]
--- OUTSIDE RECORDS SUMMARY | 2022-09-25 05:36 | XMS_ITS | Continuity of Care Document ---
:1950 Author Organization [facility] Address [address] [place] [address]- Care Team Providers Name Role Phone Kusum Bradley MD Primary Care Physician Encounter [facility] Date(s): 09/12/19 - 09/12/[address] [address]- [facility] Attending Physician: Bassem Walters MD Allergies, Adverse Reactions, Alerts Substance Reaction Severity Status atenolol Active Duloxetine diarrhea Active Immunizations Given and [...] tetanus/diphtheria/pertussis, acel(Tdap) 09/13/12 Given 1Result Comment: [05/31/2017] [id number] Note: 1-13 [facility] [id number] Comment: [12/31/2014 Uncharted] PUT IN TWICE Medications carvedilol 25 mg oral tablet 25 mg, 1, tablet, By Mouth, 2 times a day, # 180 tablet, Refills 3, Tot. Refills 3, Maintenance, 11/14/18 9:54:14 EDT, Route to Pharmacy Electronically, [id number], [facility] Start Date: 11/14/18 Stop Date: 11/09/19 Status: Orderedgabapentin 100 mg oral capsule 100 mg, 1, capsule, By Mouth, 2 times a day, # 180 capsule, Refills 3, Tot. Refills 3, Maintenance, 12/17/18 14:22:03 EDT, Route to Pharmacy Electronically, [id number], [facility] Start Date: [...]
--- OUTSIDE RECORDS SUMMARY | 2022-09-25 05:36 | XMS_ITS | Continuity of Care Document ---
:1950 Author Organization [facility] Address [address] [place] [address]- Care Team Providers Name Role Phone Silke Pal MD Primary Care Physician Encounter [facility] Date(s): 03/03/21 - 03/10/21 [facility] [address] [place], [place] [address] Encounter Diagnosis CABG (Coronary artery bypass grafting) planned (Discharge Diagnosis) - 03/03/21 ESRD - End stage renal disease (Discharge Diagnosis) - 03/03/21 Hypertension (Discharge Diagnosis) - 03/03/21 Depression, major (Discharge Diagnosis) - 03/03/21 Attending Physician: Silke Pal MD Allergies, Adverse [...] tetanus/diphtheria/pertussis, acel(Tdap) 09/13/12 Given 1Result Comment: [05/31/2017] [id number] Note: 1-13 [facility] [id number] Comment: [12/31/2014 Uncharted] PUT IN TWICE Medications [...] tablet, 0 Refills, Maintenance, 01/04/21 15:38:00EDT, Tablet, [facility], Partial fill upon patient request if the prescription is for a schedule II opioid drug., 160, cm, 01/04/21 12:4... Start Date: 01/04/21 Status: OrderedEliquis 2.5 mg oral tablet 1 tablet = 2.5 mg, By Mouth, 2 times a day, discontinue coumadin, # 60 tablet, 5 Refills, Maintenance, 02/08/21 8:42:00 EDT, Tablet, [facility], 160, cm, 02/03/21 7:53:00 EDT, Height, 60.6, kg, 12/17/20 21:40:00 EDT, Dry Weight Start Date: 02/08/21 Stop Date: 08/07/21 Status: Orderedgabapentin 100 mg oral capsule 100 mg, 1, capsule, By Mouth, 2 times a day, # 180 capsule, Refills 3, Tot. Refills 3, Maintenance, 01/04/21 15:38:00 EDT, Route to Pharmacy Electronically, [facility], 160, cm, 01/04/21 12:45:00 EDT, Height, 60.6, kg, 12/17/20 21:40:00... Start Date: 01/04/21 Stop Date: 12/30/21 Status: Orderedlisinopril 10 mg oral tablet 10 mg, 1, tablet, By Mouth, Daily, # 30 tablet, Refills 0, Tot. Refills 0, Maintenance, 03/03/21 9:50:00 EDT, Route to Pharmacy Electronically, [facility], Partial fill upon patient request if [...] 6 Refills, Maintenance, 03/03/21 9:45:00 EDT, Tablet, [facility], Partial fill upon patient request if the prescription is for a schedule II opioid drug., 160, cm, 03/03/21 9:18:00 EDT, He... Start Date: 03/03/21 Status: Orderedsevelamer carbonate 800 mg oral tablet 1 tablet = 800 mg, By Mouth, 3 times a day, # 90 tablet, 0 Refills, Maintenance, 01/04/21 15:34:00 EDT, Tablet, [facility], Partial fill upon patient request if [...] Dates Health Clinical Infor mant Status Service CABG (Coronary Discharge 03/03/21 artery bypass Diagnosis grafting) planned ESRD - End stage Discharge 03/03/21 renal disease Diagnosis Hypertension Discharge 03/03/21 Diagnosis Depression, major Discharge 03/03/21 Diagnosis Vital Signs Most recent to oldest [Reference Range]: 1 Height 160 cm (03/03/21 9:18 AM) Weight 59.6 kg (03/03/21 9:18 AM) Oxygen Saturation [94-100 %] 94 % (03/03/21 9:18 AM) Pulse Rate [55-90 bpm] 47 bpm *L* (03/03/21 9:18 AM) Body Mass Index [18.5-24.99] 23.28 (03/03/21 9:18 AM) Blood Pressure [90-138/55-84 mm Hg] 156/86 mm Hg *H* (03/03/21 9:18 AM) Temperature [96.8-100.4 DegF] 97.7 DegF (03/03/21 9:18 AM) Blood pressure sites Arm, left (03/03/21 9:18 AM) Temperature Route Temporal (03/03/21 9:18 AM) Social History Social History Type Response Smoking Status Former smoker entered on: 03/30/18 Sex
--- OUTSIDE RECORDS SUMMARY | 2022-09-25 05:36 | XMS_ITS | Continuity of Care Document ---
:1950 Author Organization [facility] Address [address] [place] [address]- Care Team Providers Name Role Phone Silke Pal MD Primary Care Physician En[place] [facility] [place](s): 03/21/21 - 04/30/[address] [address] Attending Physician: Raissa Dubose MD Admitting [...] tetanus/diphtheria/pertussis, acel(Tdap) 09/13/12 Given 1Result Comment: [05/31/2017] [id number] Note: 1-13 [facility] [id number] Comment: [12/31/2014 Uncharted] PUT IN TWICE Medications [...] Pharmacy Electronically, [facility], Partial fill upon patient [...] 01/04/21 15:38:00 EDT, Route to Pharmacy Electronically, [facility], 160, cm, 01/04/21 12:45:00 EDT, Height, 60.6, kg, 12/17/20 21:40:00... Start Date: 01/04/21 Stop Date: 12/30/21 Status: Orderedlidocaine 5% topical film Topically, Daily, Patch on Right knee, 0 Refills, Maintenance, 03/16/21 7:25:00 EDT, Patch, Partial fill upon patient request if the prescription is for a schedule II opioid drug. Start Date: 03/16/21 Status: Orderedlisinopril 10 mg oral tablet 10 mg, 1, tablet, By Mouth, Daily, # 30 tablet, Refills 0, Tot. Refills 0, Maintenance, 03/03/21 9:50:00 EDT, Route to Pharmacy Electronically, [facility] 3, Partial fill upon patient request [...] 01/17/21 14:20:00 EDT, Route to Pharmacy Electronically, [facility] 3, Partial fill upon patient request [...] 6 Refills, Maintenance, 03/03/21 9:45:00 EDT, Tablet, [facility] 3, Partial fill upon patient request [...] EDT, Tablet, [facility], Partial fill upon patient [...]
--- OUTSIDE RECORDS SUMMARY | 2022-09-25 05:36 | XMS_ITS | Continuity of Care Document ---
:1950 Author Organization [facility] Address Unavailable , Care Team Providers Name Role Phone Silke Pal MD Primary Care Physician [facility] Date(s): 04/15/21 - 05/15/21 [facility] Allergies, Adverse Reactions, Alerts Substance Reaction Severity [...] tetanus/diphtheria/pertussis, acel(Tdap) 09/13/12 Given 1Result Comment: [05/31/2017] [id number] Note: 1-13 [facility] [id number] Comment: [12/31/2014 Uncharted] PUT IN TWICE Medications [...] 01/17/21 14:19:00 EDT, Route to Pharmacy Electronically, [facility], Partial fill upon patient request [...] tablet, 0 Refills, Maintenance, 01/04/21 15:38:00EDT, Tablet, [facility], Partial fill upon patient request if the prescription is for a schedule II opioid drug., 160, cm, 01/04/21 12:4... Start Date: 01/04/21 Status: OrderedEliquis 2.5 mg oral tablet 1 tablet = 2.5 mg, By Mouth, 2 times a day, discontinue coumadin, # 60 tablet, 5 Refills, Maintenance, 02/08/21 8:42:00 EDT, Tablet, [facility], 160, cm, 02/03/21 7:53:00 [...] 01/04/21 15:38:00 EDT, Route to Pharmacy Electronically, [facility], 160, cm, 01/04/21 12:45:00 [...] 01/17/21 14:20:00 EDT, Route to Pharmacy Electronically, [facility], Partial fill upon patient request [...] 6 Refills, Maintenance, 03/03/21 9:45:00 EDT, Tablet, [facility], Partial fill upon patient request [...] 0 Refills, Maintenance, 01/04/21 15:34:00 EDT, Tablet, [facility], Partial fill upon patient request [...]
--- OUTSIDE RECORDS SUMMARY | 2022-09-25 05:36 | XMS_ITS | Continuity of Care Document ---
:1950 Author Organization [address] [place] [address]- Care Team Providers Name Role Phone Demarco GORMAN, Silke Primary Care Physician Encounter [facility] Date(s): 02/25/21 - 03/27/[address] [place] [address] Attending Physician: Aniceto Multani Admitting Physician: AdmtrAniceto Referring Physician: Admtr, Ar8 Allergies, Adverse Reactions, Alerts Substance Reaction Severity Status atenolol Active doxycycline Active Medications acetaminophen 325 mg oral tablet 975 mg, 3, tablet, By Mouth, Every 6 hours, PRN, Refills 0, Maintenance, Pain , Severe, 03/16/21 7:24:00 EDT, Partial fill upon patient request if the prescription is for a schedule II opioid drug. Start Date: 03/16/21 Status: Orderedamiodarone 200 mg oral tablet 200 mg, 1, tablet, By Mouth, Daily, # 30 tablet, Refills 0, Tot. Refills 0, Maintenance, 01/17/21 14:19:00 EDT, Route to Pharmacy Electronically, [facility], Partial fill upon patient [...] 01/17/21 14:20:00 EDT, Route to Pharmacy Electronically, [facility], Partial fill upon patient request [...]
--- OUTSIDE RECORDS SUMMARY | 2022-09-25 05:36 | XMS_ITS | Continuity of Care Document ---
:1950 Author Organization [facility] Address [address] [place] [phone]- Care Team Providers Name Role Phone Silke Pal MD Primary Care Physician [facility] Date(s): 09/21/21 - 09/28/21 [facility] [address] [place] [phone]- Encounter Diagnosis Atrial fibrillation (Discharge Diagnosis) - 09/21/21 CABG (Coronary artery bypass grafting) planned (Discharge Diagnosis) - 09/21/21 Coronary artery disease (Discharge Diagnosis) - 09/21/21 ESRD - End stage renal disease (Discharge Diagnosis) - 09/21/21 Hypercholesterolemia (Discharge Diagnosis) - 09/21/21 Hypertension (Discharge Diagnosis) - 09/21/21 Ischemic cardiomyopathy (Discharge Diagnosis) - 09/21/21 Attending Physician: Raissa Dubose MD Referring Physician: Silke Pal MD Allergies, [...] tetanus/diphtheria/pertussis, acel(Tdap) 09/13/12 Given 1Result Comment: [05/31/2017] [id number] Note: 08-26 [facility] [id number] Comment: [12/31/2014 Uncharted] PUT IN TWICE Medications [...] 6 Refills, Maintenance, 03/03/21 9:45:00 EDT, Tablet, [facility] 3, Partial fill upon patient request [...] EDT, Tablet, [facility], Partial fill upon patient request [...] Active 1Quit 1978 Diagnosis Diagnosis Type Effective Health Clinical Informant Dates Status Service Atrial fibrillation Discharge 09/21/21 Diagnosis CABG (Coronary artery Discharge 09/21/21 bypass grafting) planned Diagnosis Coronary artery disease Discharge 09/21/21 Diagnosis ESRD - End stage renal Discharge 09/21/21 disease Diagnosis Hypercholesterolemia Discharge 09/21/21 Diagnosis Hypertension Discharge 09/21/21 Diagnosis Ischemic cardiomyopathy Discharge 09/21/21 Diagnosis Social History Social History Type Response Smoking Status Former smoker entered on: 03/30/18 Sex
--- OUTSIDE RECORDS SUMMARY | 2022-09-25 05:36 | XMS_ITS | Continuity of Care Document ---
:1950 Author Organization [facility] Address [address] [place] [phone]- Care Team Providers Name Role Phone Demarco GORMAN, Silke Primary Care Physician Encounter [facility] Date(s): 03/08/21 - 03/16/[address] [address] Discharge Disposition: A-Transfer SNF Attending Physician: Tra Mac MD Admitting Physician: Viki Sorenson MD Referring Physician: Not on Staff, Referring [...] Orderedacetaminophen 325 mg oral tablet 975 mg, Tablet, By Mouth, 03/16/21 10:00:00 EDT, Stop date 03/16/21 10:00:00 EDT Start Date: 03/16/21 Stop Date: 03/16/21 Status: Completedamiodarone 200 mg oral tablet 200 mg, 1, tablet, By Mouth, Daily, # 30 tablet, Refills 0, Tot. Refills 0, Maintenance, 01/17/21 14:19:00 EDT, Route to Pharmacy Electronically, [facility], Partial fill upon [...] oral capsule 100 mg, Capsule, By Mouth, 03/16/21 9:00:00 EDT Start Date: 03/16/21 Stop Date: 03/16/21 Status: Completedlidocaine 5% topical film Topically, Daily, Patch on Right knee, 0 Refills, Maintenance, 03/16/21 7:25:00 EDT, Patch, Partial fill upon patient request if the prescription is for a schedule II opioid drug. Start Date: 03/16/21 Status: Orderedmetoprolol 100 mg oral tablet, extended release 100 mg, XL Tablet, By Mouth, 03/16/21 9:00:00 EDT Start Date: 03/16/21 Stop Date: 03/16/21 Status: Completedmetoprolol 100 mg oral tablet, extended release 100 mg, 1, tablet, By Mouth, Daily, # 30 tablet, Refills 0, Tot. Refills 0, Maintenance, 01/17/21 14:20:00 EDT, Route to Pharmacy Electronically, [facility], Partial fill upon patient [...] opioid drug. Start Date: 03/16/21 Status: Ordered Results Orders for Microbiology Reports Name Date Anaerobic Culture 03/13/21 Sterile Body Fluid Culture W/ Gram Smear (Culture Ster ile Body Fluid w/ Gram 03/13/21 Smear) Microbiology Reports TEST:Anaerobic Culture STATUS:Unauthenticated BODY SITE: SOURCE:ASPIRA COLLECTED DATE/TIME:03/13/21 3:34 PMAnaerobic Culture SPECIMEN DESCRIPTION : ASPIRATE KNEE RT SPECIAL REQUESTS : NONE CULTURE : NO ANAEROBES ISOLATED SO FAR. REPORT STATUS : PRELIMINARY REPORT TEST:Sterile Fluid Culture STATUS:Auth (Verified) BODY SITE: SOURCE:ASPIRA COLLECTED DATE/TIME:03/13/21 3:34 PMSterile Fluid Culture SPECIMEN DESCRIPTION : ASPIRATE RIGHT KNEE SPECIAL REQUESTS : NONE GRAM STAIN : 4+ POLYMORPHONUCLEAR LEUKOCYTES NO ORGANISMS SEEN CULTURE : NO GROWTH 2 DAYS REPORT STATUS : FINAL 03/15/2021adiology Reports Exam Date Time Procedure Performing Provider Status 03/12/21 10:07 PM Knee 1 or 2 Views Right Pamela Kiser; Aut h (Verified) Notes:(Knee 1 or 2 Views Right) Reason For Exam: PainRESULT: Knee 1 or 2 Views Right Knee 1 or 2 Views Right, 2 views Reason: Pain; Clinical Question(s): Fracture; Special Instructions: two views ap lat COMPARISON: None. FINDINGS: No acute fracture or dislocation. Severe narrowing of the medial compartment with subchondral sclerosis. Osteophytosis of the medial and lateral compartments. Small knee joint effusion. Vascular calcifications. IMPRESSION: Severe osteoarthritis of the medial compartment of the knee. WSN: [id number] Ordering Physician: Aleida Doyle Dictated By: Alfonso Smith MD Dictated Date/Time: 03/12/21 10:20 p Reviewed By: Alfonso Smith MD Signed By: Alfonso Smith MD Signed Date/Time: 03/12/21 10:20 pm Transcribed By: JOHN Transcribed Date/Time: 03/12/21 10:19 pm Exam Date Time Procedure Performing Provider Status 03/10/21 10:49 AM Shoulder Min 2 Views Left Yue Proctorfer; Auth (Verified) Notes:(Shoulder Min 2 Views Left) Reason For Exam: PainRESULT: Shoulder Min 2 Views Left Shoulder Min 2 Views Left, 5 views REASON: Pain; Clinical Question(s): Fracture COMPARISON: None. FINDINGS: No evidence of acute fracture or dislocation. Abnormal appearance of the humeral head, which appearsflattened, with subchondral cysts and osteophytes. The glenoid fossa appears shallow, with subchondral cysts. Unremarkable appearance of the acromioclavicular joint. Multiple old healed left posterolateral rib fractures. Prior median sternotomy. Left atrial appendage clip. Mediastinal clips. IMPRESSION: Chronic appearing deformity of the left glenohumeral joint may be degenerative or due to inflammatory arthropathy. No evidence of acute fracture or dislocation. WSN: [id number] Ordering Physician: Stella Gambino Dictated By: Chris Cole MD Dictated Date/Time: 03/10/21 1:09 pm Reviewed By: Chris Cole MD Signed By: Chris Cole MD Signed Date/Time: 03/10/21 1:09 pm Transcribed By: JOHN Transcribed Date/Time: 03/10/21 1:05 pm Vital Signs Most recent to oldest 1 2 3 [Reference Range]: Height 162 cm 162 cm 162 cm (03/16/21 9:39 AM) (03/15/21 10:16 PM) (03/15/21 5:34 PM) Weight 57 kg (03/09/21 4:10 PM) Oxygen Saturation [94-100 %] 100 % 97 % 98 % (03/16/21 7:00 AM) (03/15/21 10:16 PM) (03/15/21 5:34 PM) Pulse Rate [55-90 bpm] 57 bpm 51 bpm 57 bpm (03/16/21 10:26 AM) *L* (03/15/21 10:16 PM) (03/16/21 7:00 AM) Body Mass Index [18.5-24.99] 21.72 (03/09/21 4:10 PM) Blood Pressure [90-138/55-84 mm 137/71 mm Hg 153/77 mm Hg 161/75 mm Hg Hg] (03/16/21 10:26 AM) *H* *H* (03/16/21 7:00 AM) (03/15/21 10:16 P M) Respiratory Rate [16-30 br/min] 18 br/min 18 br/min 18 br/min (03/16/21 11:18 AM) (03/16/21 11:18 AM) (03/16/21 10:1 8 AM) Temperature [96.8-100.4 DegF] 97.7 DegF 98.1 DegF 98 .4 DegF (03/16/21 7:00 AM) (03/15/21 10:16 PM) (03/15/21 5:34 PM) Mode of Delivery (Oxygen) Room air Room air Room a ir (03/16/21 7:00 AM) (03/15/21 10:16 PM) (03/15/21 5:34 PM) Blood pressure sites Arm, right Arm, right Arm, right (03/16/21 9:39 AM) (03/16/21 7:00 AM) (03/15/21 10:16 PM) Temperature Route Oral Oral Oral (03/16/21 7:00 AM) (03/15/21 10:16 PM) (03/15/21 5:34 PM) Dry Weight 57 kg (03/09/21 4:10 PM)
--- OUTSIDE RECORDS SUMMARY | 2022-09-25 05:37 | XMS_ITS | Continuity of Care Document ---
:1950 Author Organization [facility] Address [address] [place] [address]- Care Team Providers Name Role Phone Silke Pal MD Primary Care Physician Encounter [facility] Date(s): 03/02/21 - 04/08/21 [facility] [address] [place] [address]- Attending Physician: Raissa Dubose MD Referring Physician: Prasanna Cortez MD Allergies, Adverse Reactions, Alerts Substance Reaction [...] tetanus/diphtheria/pertussis, acel(Tdap) 09/13/12 Given 1Result Comment: [05/31/2017] [id number] Note: 1-13 [facility] [id number] Comment: [12/31/2014 Uncharted] PUT IN TWICE Medications [...] tablet, 0 Refills, Maintenance, 01/04/21 15:38:00EDT, Tablet, [facility], Partial fill upon patient request if the prescription is for a schedule II opioid drug., 160, cm, 01/04/21 12:4... Start Date: 01/04/21 Status: OrderedEliquis 2.5 mg oral tablet 1 tablet = 2.5 mg, By Mouth, 2 times a day, discontinue coumadin, # 60 tablet, 5 Refills, Maintenance, 02/08/21 8:42:00 EDT, Tablet, [facility], 160, cm, 02/03/21 7:53:00 EDT, Height, 60.6, kg, 12/17/20 21:40:00 EDT, Dry Weight Start Date: 02/08/21 Stop Date: 08/07/21 Status: Orderedgabapentin 100 mg oral capsule 100 mg, 1, capsule, By Mouth, 2 times a day, # 180 capsule, Refills 3, Tot. Refills 3, Maintenance, 01/04/21 15:38:00 EDT, Route to Pharmacy Electronically, [facility], 160, cm, 01/04/21 12:45:00 EDT, Height, 60.6, kg, 12/17/20 21:40:00... Start Date: 01/04/21 Stop Date: 12/30/21 Status: Orderedlisinopril 10 mg oral tablet 10 mg, 1, tablet, By Mouth, Daily, # 30 tablet, Refills 0, Tot. Refills 0, Maintenance, 03/03/21 9:50:00 EDT, Route to Pharmacy Electronically, [facility], Partial fill upon patient request [...] 6 Refills, Maintenance, 03/03/21 9:45:00 EDT, Tablet, [facility], Partial fill upon patient request if the prescription is for a schedule II opioid drug., 160, cm, 03/03/21 9:18:00 EDT, He... Start Date: 03/03/21 Status: Orderedsevelamer carbonate 800 mg oral tablet 1 tablet = 800 mg, By Mouth, 3 times a day, # 90 tablet, 0 Refills, Maintenance, 01/04/21 15:34:00 EDT, Tablet, [facility], Partial fill upon patient request [...]
--- OUTSIDE RECORDS SUMMARY | 2022-09-25 05:37 | XMS_ITS | Continuity of Care Document ---
:1950 Author Organization [facility] Address Unavailable , Care Team Providers Name Role Phone Silke Pal MD Primary Care Physician [facility] Date(s): 07/07/21 - 08/06/21 [facility] Allergies, Adverse Reactions, Alerts Substance Reaction [...] tetanus/diphtheria/pertussis, acel(Tdap) 09/13/12 Given 1Result Comment: [05/31/2017] [id number] Note: 1-13 [facility] [id number] Comment: [12/31/2014 Uncharted] PUT IN TWICE Medications [...] 14:19:00 EDT, Route to Pharmacy Electronically, [facility], Partial fill upon patient request if [...] 0 Refills, Maintenance, 01/04/21 15:38:00EDT, Tablet, [facility], Partial fill upon patient request if the prescription is for a schedule II opioid drug., 160, cm, 01/04/21 12:4... Start Date: 01/04/21 Status: OrderedEliquis 2.5 mg oral tablet 1 tablet = 2.5 mg, By Mouth, 2 times a day, discontinue coumadin, # 60 tablet, 5 Refills, Maintenance, 02/08/21 8:42:00 EDT, Tablet, [facility], 160, cm, 02/03/21 7:53:00 EDT, [...] 15:38:00 EDT, Route to Pharmacy Electronically, [facility], 160, cm, 01/04/21 12:45:00 EDT, [...] 14:20:00 EDT, Route to Pharmacy Electronically, [facility], Partial fill upon patient request if the prescription is for a schedule II opio... Start Date: 01/17/21 Status: Orderedmetoprolol 100 mg oral tablet, extended release 100 mg, 1, tablet, By Mouth, Daily, # 90 tablet, Refills 3, Tot. Refills 3, Maintenance, 07/07/21 10:32:00 EST, Route to Pharmacy Electronically, [facility], Partial fill upon patient request [...] Refills, Maintenance, 03/03/21 9:45:00 EDT, Tablet, [facility], Partial fill upon patient request [...] Refills, Maintenance, 01/04/21 15:34:00 EDT, Tablet, [facility], Partial fill upon patient request if [...] 07/29/21 9:40:00 EST, Route to Pharmacy Electronically, [facility], 162, cm, 07/06/21 9:31:00 EST, Height, [...]
--- OUTSIDE RECORDS SUMMARY | 2022-09-25 05:37 | XMS_ITS | Continuity of Care Document ---
:1950 Author Organization [facility] Address [address] [place] [address]- Care Team Providers Name Role Phone Kusum Bradley MD Primary Care Physician Encounter [facility] Date(s): 08/15/19 - 08/15/[address] [address]- [facility] Attending Physician: Bassem Walters MD [...] tetanus/diphtheria/pertussis, acel(Tdap) 09/13/12 Given 1Result Comment: [05/31/2017] [id number] Note: 1-13 [facility] [id number] Comment: [12/31/2014 Uncharted] PUT IN TWICE Medications carvedilol 25 mg oral tablet 25 mg, 1, tablet, By Mouth, 2 times a day, # 180 tablet, Refills 3, Tot. Refills 3, Maintenance, 11/14/18 9:54:14 EDT, Route to Pharmacy Electronically, [id number], [facility] Start Date: 11/14/18 Stop Date: 11/09/19 Status: Orderedgabapentin 100 mg oral capsule 100 mg, 1, capsule, By Mouth, 2 times a day, # 180 capsule, Refills 3, Tot. Refills 3, Maintenance, 12/17/18 14:22:03 EDT, Route to Pharmacy Electronically, [id number], [facility] Start Date: [...]
--- OUTSIDE RECORDS SUMMARY | 2022-09-25 05:37 | XMS_ITS | Continuity of Care Document ---
:1950 Author Organization [facility] Address [address] [place] [address]- Care Team Providers Name Role Phone Silke Pal MD Primary Care Physician [facility] Date(s): 06/06/22 - 07/06/22 [facility] [address] [place] [address]- Allergies, Adverse Reactions, Alerts Substance Reaction Severity [...] tetanus/diphtheria/pertussis, acel(Tdap) 09/13/12 Given 1Result Comment: [05/31/2017] [id number] Note: 1-13 [facility] [id number] Comment: [12/31/2014 Uncharted] PUT IN TWICE Medications [...] 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 Depression, major Confirmed Active [...] Care Team PersonnelName: Quan Virgen RN Position: [facility] RN Member Role: Primary Care Nurse Name: Susana Chaney LPN Position: [facility] RN Member Role: Primary Care Nurse Name: Betty Cabrera NP Position: [facility] Associate Professional Member Role: Primary Care Nurse Address: Address: [address] [place] [address]- Name: Uma Ndiaye Position: [facility] Outreach Member Role: Lifetime Consulting Physician Name: Kirk Morse DO Position: [facility] Renal MD Member Role: Lifetime Consulting Physician Address: Address: [address] [place], [place] [address] [place] [place] [address]- Name: Uma Valdovinos Position: [facility] Outreach Member Role: Lifetime Consulting Physician Name: Janelle Arora RN Position: [facility] RN Member Role: Primary Care Nurse Name: Prasanna Belle III, RN Position: [facility] RN Member Role: Primary Care Nurse Name: Suellen Lazcano RN Position: [facility] ED RN W/OE and Tasks Member Role: Primary Care Nurse Name: Rubia Pardo LPN Position: [facility] RN Member Role: Primary Care Nurse Name: Florencio Ferreira MD Position: [facility] Renal MD Member Role: Lifetime Consulting Physician Address: Address: [address] [facility] [address] [facility] [place], [place] [address]- [place] Name: Priscila López RN Position: [facility] RN Member Role: Primary Care Nurse Name: Silke Pal MD Position: [facility] Primary Care Physician Member Role: PCP Address: Address: [address] [place] [address] [facility] [place] [address]- Name: Bonnie Ann RN Position: S RN Member Role: Primary Care Nurse Name: Felipa Burr RN Position: [facility] RN Member Role: Primary Care Nurse Name: Jennifer Alex RN Position: S RN Member Role: Primary Care Nurse Name: Saskia Fontana RN Position: [facility] RN Member Role: Primary Care Nurse Name: Beatris Gaytan RN Position: [facility] RN Member Role: Primary Care Nurse Care Team Related PersonsName: AUDREY HEARN Address: [address] [place] [address] Name: YUSUF HEARN Address: home [address] [place] [address]
--- OUTSIDE RECORDS SUMMARY | 2022-09-25 05:37 | XMS_ITS | Continuity of Care Document ---
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 Understanding of D/C Plan By : Patient Patient Instructions Discharge Signed : Yes Did Pt have Specialty Bed or Wound Vac : Munira Springer RN, Sil Rhodes - 06/28/2022 16:20 Bill GORMAN, Sriram: PERFORM Event Display: Discharge/Transfer Note Hospital Authored Date: [id number] Patient: ??TRACEY HEARN ? Age:??72 Years?Sex:??Female?:??1950?? Patient Information Discharge Location: [facility] Primary Care Physician: Silke Pal MD Admit Date/Time: 06/26/22 22:34 Discharge Disposition Discharge Disposition: Half-Way Facility/Rehab Discharge Diagnosis Colitis (K52.9) ?? _ Discharge Medications Acetaminophen (acetaminophen 325 mg oral tablet)?650?Milligram?2?tablet?By Mouth?Every 6 hours?as needed?pain/fever >100F Amlodipine (amLODIPine 10 mg oral tablet)?1?tab(s)?10?Milligram?By Mouth?Daily apixaban (Eliquis 2.5 mg oral tablet)?1?tab(s)?2.5?Milligram?By Mouth?2 times a day Aspirin (aspirin 81 mg oral delayed release tablet)?81?Milligram?1?tablet?By Mouth?Daily Atorvastatin (atorvastatin 80 mg oral tablet)?1?tab(s)?80?Milligram?By Mouth?Dailyat bedtime Bisacodyl (bisacodyl 10 mg rectal suppository)?1?suppository(ies)?10?Milligram?Rectall y?Daily?as needed?for constipation?if no BM in 3 days Carvedilol (carvedilol 6.25 mg oral tablet)?6.25?Milligram?1?tablet?By Mouth?2 times a day Clonidine (cloNIDine 0.2 mg/24 hr transdermal film, extended release)?1?patch(es)?Topically?Every week?on Monday Lisinopril (lisinopril 20 mg oral tablet)?20?Milligram?1?tablet?By Mouth?Daily Loperamide (loperamide 2 mg oral tablet)?1?tab(s)?2?Milligram?By Mouth?Daily?asneeded?as needed Oxycodone (oxyCODONE 5 mg oral tablet)?2.5?Milligram?0.5?tablet?By Mouth?Every 6 hours?as needed?Pain , Moderate Polyethylene Glycol 3350 (MiraLax oral powder for reconstitution)?17?gram?By Mouth?Daily?as needed?Constipation?dissolve in water before taking Sevelamer (sevelamer carbonate 800 mg oral tablet)?2?tab(s)?1,600?Milligram?By Mouth?2 times a day?on Monday, Monday & MondayAM & PMDialysis days Sevelamer (sevelamer hydrochloride 800 mg oral tablet)?2?tab(s)?1,600?Milligram?By Mouth?3 times a day before meals?on monday, , Monday & Monday's Sodium Biphosphate-Sodium Phosphate (Fleet Enema 19 gm-7 gm rectal enema)?1?Each?Rectally?Once?as needed?for constipation Trazodone (traZODone 100 mg oral tablet)?100?Milligram?1?tablet?By Mouth?Daily at bedtime ? Medications Started None. Medications Discontinued None. Doses Changed None. Allergies Allergies ?(Active and Proposed Allergies Only) atenolol? (Severity: Unknown severity, Onset: Unknown) ?Reactions: Cardiac Palpitations doxycycline? (Severity: Unknown severity, Onset: Unknown) Adderall? (Severity: Unknown severity, Onset: Unknown) Duloxetine? (Severity: Unknown severity, Onset: Unknown) ?Reactions: diarrhea ? PCP Follow-Up/Heads-Up Need outpatient??PET CT??scanning to evaluate left lower lobe lung mass. 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 Nausea vomiting diarrhea: Unclear if patient even had diarrhea initially per history - only 3 BMs that were large volume and not watery. CT shows possible colitis and cholelithiasis but no surrounding inflammation. Infectious and ischemic etiology considered. Patient reported to be febrile in facility but not on admission. No leukocytosis noted.?? C diff considered given patient from facility but unlikely given nature of bowel movements and otherwise reassuring labs and clinical picture.?? It may be that patient had brief self-limiting viral GI infection. No blood per rectum on BIN.?? Lactate reassuring and patient appears to be perfusing well though does have risk factors for ischemic colitis including CAD s/p CABG and HTN.?? Patient has Hb improved from prior admission and does not appear to have overt GI bleed. Nausea resolved, patient received zofran x1 (EKG shows no QT prolongation) Overall clinically stable. Tolerating diet well. No need for antibiotic. ?? Lung mass on CT Incidentally found this admission and findings already discussed with patient.?? Patient is a formersmoker. She denies cough, unexplained weight loss This morning consulted me to talk to her daughter??regarding??the lung base nodule/mass. I spoke with daughter and??regarding??the lung nodule. Also spoke with??[facility] interventional radiology??team and??for this solitary??lung nodule??PET scan is the ideal study to start off with??before getting biopsy. Outpatient PET scan??has been explained to patient daughter. ?? Hyponatremia??need outpatient PET CT scan to evaluate for ESRD on dialysis secondary to FSGS Patient seen by kidney care previously. On dialysis MWF Got hemodialysis in the hospital. ?? R hip fracture s/p ORIF Secondary to fall last month with successful ORIF at [facility] pain control with oxycodone ?? Chronic/other conditions: A fib - confirmed with facility patient is on eliquis HLD - cont home statin HTN - currently well controlled, cont home regimen CAD s/p CABG - no chest pain currently, cont home regimen HFpEF - cont home regimen Insomnia - cont trazodone, melatonin Anxiety/depression - patient reports life stressors such as current health issues and passing of herolder sister but mood currently stable ?? Objective Measurements?? Height: 162.5 cm (06/28/22) Weight: 56 kg (06/28/22) Dry Weight: 56 kg (06/28/22) ? Vital Signs?? Temperature: 98.4 DegF (06/28/22 11:05:00) Temperature Route: Oral (06/28/22 11:05:00) Pulse Rate: 61 bpm (06/28/22 11:05:00) Respiratory Rate: 18 br/min (06/28/22 11:17:00) Vented: No (06/27/22 16:43:00) Systolic Blood Pressure: 126 mm Hg (06/28/22 11:05:00) Diastolic Blood Pressure: 61 mm Hg (06/28/22 11:05:00) Blood pressure sites: Arm, right (06/28/22 11:05:00) Mean Arterial Pressure: 83 mm Hg (06/28/22 11:05:00) Pulse Pressure: 65 mm Hg (06/28/22 11:05:00) Oxygen Saturation: 97 % (06/28/22 11:05:00) Mode of Delivery (Oxygen): Room air (06/28/22 11:05:00) Early Warning Score: 4 (06/28/22 12:00:46) ? . Physical Exam ?? General: Lying comfortably in bed,no evident distress Cardiac: S1 + S2 + 0, no murmurs heard Respiratory: CTA, No wheezes, Rales or crackles heard Abdomen: soft, nondistended, nontender Extremities: No edema or cyanosis present Neurological: AO X3,cranial nerves grossly normal? Pending Results Add On Lab Order ordered on 06/26/2022 Complete Urinalysis ordered on 06/26/2022 Troponin T Quant ordered on 06/26/2022 Urinalysis w/hold for Urine Culture ordered on 06/26/2022 Follow-Up Appointments Added Follow Up ?Time Frame ?Comments Silke Pal MD?1 to 2 weeks Post Discharge Care Discharge ?06/28/22 13:58:00 EST Discharge Prescriptions ?Written, ??06/28/22 13:58:00 EST Home Health Face to Face ^HomeHealthFTF Results Discharge Labs BLOOD COUNT & DIFF WBC 5.0 k/mm3 ()?? 06/27/2022 05:05 RBC 2.55 m/mm3 (Low)?? 06/27/2022 05:05 Hgb 7.6 Gm/dL (Low)?? 06/27/2022 05:05 Hct 24.2 % (Low)?? 06/27/2022 05:05 MCV 94.9 femtoliters ()?? 06/27/2022 05:05 MCH 29.8 pg ()?? 06/27/2022 05:05 MCHC 31.4 g/dL (Low)?? 06/27/2022 05:05 Platelet Count 134 k/mm3 (Low)?? 06/27/2022 05:05 RDW-SD 48.1 femtoliters (High)?? 06/27/2022 05:05 MPV 10.4 femtoliters ()?? 06/27/2022 05:05 Nucleated RBC (Automated) 0.0 #/100 WBC'S ()?? 06/27/2022 05:05 Abs. NRBC 0.0 k/mm3 ()?? 06/27/2022 05:05 Abs. Neut 4.9 k/mm3 ()?? 06/26/2022 20:13 Abs. Lymph 1.3 k/mm3 ()?? 06/26/2022 20:13 Abs. [place] 0.7 k/mm3 ()?? 06/26/2022 20:13 Abs. Eo 0.1 k/mm3 ()?? 06/26/2022 20:13 Abs. Baso 0.0 k/mm3 ()?? 06/26/2022 20:13 Neut % 69.7 % ()?? 06/26/2022 20:13 Lymph % 18.6 % ()?? 06/26/2022 20:13 [place] % 9.9 % ()?? 06/26/2022 20:13 Eos % 0.8 % ()?? 06/26/2022 20:13 Baso % 0.4 % ()?? 06/26/2022 20:13 Imm Gran 0.6 % ()?? 06/26/2022 20:13 Abs. Imm Gran 0.0 k/mm3 ()?? 06/26/2022 20:13 ?? CARDIAC CK, Total 48 units/L ()?? 06/26/2022 20:13 Troponin T Quant 0.09 ng/mL ()?? 06/27/2022 07:39 ?? CHEM GENERAL Sodium 132 mmol/L (Low)?? 06/27/2022 05:05 Potassium 5.1 mmol/L ()?? 06/27/2022 05:05 Chloride 94 mmol/L (Low)?? 06/27/2022 05:05 Bicarbonate Level 28 mmol/L ()?? 06/27/2022 05:05 Anion Gap 10 ()?? 06/27/2022 05:05 Glucose Level 90 mg/dL ()?? 06/26/2022 20:13 Glucose, POC 127 mg/dL (High)?? 06/28/2022 11:11 Hemoglobin A1C (Monitoring) 5.3 % ()?? 06/26/2022 20:13 BUN 35 mg/dL (High)?? 06/26/2022 20:13 Creatinine-Blood 4.9 mg/dL (High)?? 06/26/2022 20:13 Estimated GFR Creatinine 9 ML/MIN/1.73 M2 ()?? 06/26/2022 20:13 Calcium 9.5 mg/dL ()?? 06/26/2022 20:13 Phosphorus 3.0 mg/dL ()?? 06/26/2022 20:13 Magnesium 2.0 mg/dL ()?? 06/26/2022 20:13 Protein, Total 7.5 Gm/dL ()?? 06/26/2022 20:13 Albumin 3.8 Gm/dL ()?? 06/26/2022 20:13 AG Ratio 1.0 ()?? 06/26/2022 20:13 Alkaline Phosphatase 106 units/L (High)?? 06/26/2022 20:13 Lipase 83 units/L (High)?? 06/26/2022 20:13 AST (SGOT) 28 units/L ()?? 06/26/2022 20:13 ALT (SGPT) 10 units/L ()?? 06/26/2022 20:13 Bilirubin, Total 0.5 mg/dL ()?? 06/26/2022 20:13 Lactate 1.0 mmol/L ()?? 06/26/2022 20:13 ? ENDOCRINE/TUMOR MARKER TSH 1.90 uIU/mL ()?? 06/26/2022 20:13 Cortisol Level 25.7 ??g/dL ()?? 06/26/2022 20:13 ?? HEME OTHER Hold Blue Top SPECIMEN DISCARDED AFTER 4 HOURS. ()?? 06/26/2022 20:13 ? LIPID STUDIES Cholesterol 91 mg/dL ()?? 06/26/2022 20:13 Triglycerides 122 mg/dL ()?? 06/26/2022 20:13 HDL Cholesterol 35 mg/dL (Low)?? 06/26/2022 20:13 LDL Cholesterol 32 mg/dL ()?? 06/26/2022 20:13 Non HDL Cholesterol 56 mg/dL ()?? 06/26/2022 20:13 ? MISC. CHEMISTRY Hold Green Top SPECIMEN DISCARDED AFTER 1 WEEK ()?? 06/26/2022 20:13 ? VIROLOGY Influenza A PCR NEGATIVE ()?? 06/26/2022 20:05 Influenza B PCR NEGATIVE ()?? 06/26/2022 20:05 RSV PCR NEGATIVE ()?? 06/26/2022 20:05 COVID-19 PCR Specimen Source NASAL ()?? 06/27/2022 05:01 COVID-19 PCR Result NEGATIVE ()?? 06/27/2022 05:01 ? 35??minutes spent on discharge Carol Domingo RN: PERFORM, SIGN, VERIFY Event Display: Case Management Discharge Plan Authored Date: Patient: TRACEY HEARN Age: 72 years Sex: Female : 1950 Associated Diagnoses: None Author: Carol Domingo RN Discharge Plan Case Management Discharge Plan : Case Management Discharge Plan Data 06/28/2022 14:03 EST Discharge Level of Care at Discharge assisted facility Discharge Nursing Homes/Rehab Facilities [facility] Discharge Transportation Arranged [facility] [address] [place] [id number] [phone] Discharge Arranged Transport Date/Time 06/28/2022 17:00 Mode of Transportation Arranged Ambulance Name of Person Notified of Transfer Pt to notify her daughter Tyree RN, Sil Rhodes: PERFORM Event Display: Patient Education/Instruction Authored Date: [id number] Inpatient Adult Discharge Instructions [address] [address] Name: TRACEY HEARN : 1950 Visit: 06/26/2022 22:34:00 Current Date: 06/28/2022 16:26 Account: [id number] Inpatient Adult Discharge Instructions We would like to thank you for allowing us to assist you with your healthcare needs. The following includes patient education materials and information regarding your injury/illness. Our entire staff strives to provide an excellent experience for our patients and their families. PLEASE ENSURE YOU FOLLOW-UP PER THE INSTRUCTIONS BELOW! ?? YOUR OPINION IS IMPORTANT TO US! Please complete the survey you may receive by mail or email. Your feedback will be used to make improvements to the healthcare experiences of our patients and their families. Surveys are administered by [employer] ?? If further treatment with your primary care physician or another doctor is recommended, it is important for you to keep the appointment. Call your primary care physician or return to the Emergency Department immediately if your condition worsens, fails to improve, or new symptoms develop. If you need to find a doctor, you can call [facility] for a referral at [phone] or toll free at [phone] or log in to [email or web address].. ?? You can view and manage your care through the patient portal or by using a health care marcin of your choosing. [employer] is a website that allows you to securely view your medical information including your hospital discharge summary, office visit summaries, medications and follow-up visits. You can also request appointments, renew medications, and request access to your medical information using a health care marcin of your choosing, or just ask a question. You can enroll at [email or web address] or register during your next office visit. You have been discharged from [facility], Patient Care Unit: S3. If you have any questions regarding these instructions after you leave, please call us and we will be happy to assist you. [facility] Your Care Team Attending Physician Sriram Baltazar MD Discharging Providers Sriram Baltazar MD Reason for Admission Did not take report from EMS Your Diagnosis Colitis Tests Performed Below is a partial list of the tests performed during your hospitalization. You may have had other tests and procedures not included in this list. Please discuss all test results with your provider. CBC CBC w/ Differential CK (CREATINE KINASE) Comprehensive Metabolic Panel CORTISOL COVID-19 (2019 Novel Coronavirus) PCR COVID-19, RSV, and Flu A/B, Rapid PCR GLUCOSE POC HEMOGLOBIN A1C HOLD BLUE TUBE HOLD GREEN TUBE Lactate Level Lipase LIPID PANEL Lytes MAGNESIUM PHOSPHORUS Troponin T Quant TSH WITH REFLEX TO FT4 CT Abdomen and Pelvis W/O Contrast Primary Care Provider Silke Pal MD Advance Directive Health Care Proxy on File Yes - Health Care Proxy No qualifying data available. Discharge Vitals Temperature: 98.4 DegF Height: 162.5 cm Pulse Rate: 61 bpm Weight: 56 kg Respiratory Rate: 18 br/min ?? Systolic Blood Pressure: 126 mm Hg ?? Diastolic Blood Pressure: 61 mm Hg ?? Oxygen Saturation: 97 % ?? Studies Pending All tests and labs ordered during this hospital stay have been completed unless listed below. Pleasediscuss all pending results with your provider listed above in these instructions. ?? Add On Lab Order Complete Urinalysis Troponin T Quant Urinalysis w/hold for Urine Culture What to do next Instructions From Your Doctor Discharge Orders You Need to Schedule the Following Appointments Follow Up with??Silke Pal MD When??Within 1 to 2 weeks Where: ?? Discharge Medications TRACEY HEARN :1950 Visit Date:06/26/2022 Medications: Please continue your medications until treatment is completed or stopped by your provider. Medications not listed below should be discontinued. Discuss any questions related to medications with your provider. What How Much When Instructions Next Dose Changed Acetaminophen (acetaminophen 325 mg oral tablet) 2 tab(s) Oral Every 6 hours as needed for pain/fever >100F as needed Changed Aspirin (aspirin 81 mg oral delayed release tablet) 1 tab(s) Oral Daily 1116 in am Changed Clonidine (cloNIDine 0.2 mg/ 24 hr transdermal film, extended release) 1 patch(es) Topically Every week on Monday ?? resume home schedule (not ordered while in the hospital) Changed Lisinopril (lisinopril 20 mg oral tablet) 1 tab(s) Oral Daily 06/29 in am Changed Oxycodone (oxyCODONE 5 mg oral tablet) 0.5 tab(s) Oral Every 6 hours as needed for Pain , Moderate as needed Changed Sevelamer (sevelamer carbonate 800 mg oral tablet) 2 tab(s) Oral Twice a day on Monday, Monday & Monday AM & PM Dialysis days ?? 06/29 in am Changed Sevelamer (sevelamer hydrochloride 800 mg oral tablet) 2 tab(s) Oral 3 times a day before meals on monday, , Monday & ?? 06/28 at 5pm (refused to have dinner) Unchanged Amlodipine (amLODIPine 10 mg oral tablet) 1 tab(s) Oral Daily 06/29 in am Unchanged apixaban (Eliquis 2.5 mg oral tablet) 1 tab(s) Oral Twice a day 06/28 tonight Unchanged Atorvastatin (atorvastatin 80 mg oral tablet) 1 tab(s) Oral Daily at Bedtime 06/28 tonight Unchanged Bisacodyl (bisacodyl 10 mg rectal suppository) 1 suppository(ies) Per rectum Daily as needed for for constipation if no BM in 3 days ?? as needed Unchanged Carvedilol (carvedilol 6.25 mg oral tablet) 1 tab(s) Oral Twice a day 06/28 tonight Unchanged Loperamide (loperamide 2 mg oral tablet) 1 tab(s) Oral Daily as needed for as needed as needed Unchanged Polyethylene Glycol 3350 (MiraLax oral powder for reconstitution) 17 gram Oral Daily as needed for Constipation dissolve in water before taking ?? as needed Unchanged Sodium Biphosphate-Sodium Phosphate (Fleet Enema 19 gm-7 gm rectal enema) 1 Each Per rectum Once as needed for for constipation as needed Unchanged Trazodone (traZODone 100 mg oral tablet) 1 tab(s) Oral Daily at Bedtime 06/28 tonight ?? What How Much When Comments Stop Taking Gabapentin (gabapentin 100 mg oral capsule) 2 capsule Oral Daily at Bedtime Duration: 30 Days Stop Taking Gabapentin (gabapentin 100 mg oral capsule) 1 capsule Oral 2 times a day before breakfast and dinner Duration: 30 Days Stop Taking Guaifenesin/ Dextromethorphan (Robitussin DM Liquid) 10 Milliliter Oral Every 4 hours as needed for Cough Stop Taking Sertraline (sertraline 100 mg oral tablet) 1 tab(s) Oral Daily Test Results Below is a partial list of the most recent Laboratory test results done prior to this discharge. You may have had other tests and procedures not included in this list. Please discuss all test results with your provider. CBC (06/27/2022) ???WBC - 5.0 k/mm3???RBC - 2.55 m/mm3???Hgb - 7.6 Gm/dL???Hct - 24.2 %???MCV - 94.9 femtoliters???MCH - 29.8 pg???MCHC - 31.4 g/dL???Platelet Count - 134 k/mm3???RDW-SD - 48.1 femtoliters???MPV - 10.4 femtoliters???Nucleated RBC (Automated) - 0.0 #/100 WBC'S???Abs. NRBC - 0.0 k/mm3 CBC w/ Differential (06/26/2022) ???WBC - 7.1 k/mm3???RBC - 3.10 m/mm3???Hgb - 9.3 Gm/dL???Hct - 29.7 %???MCV - 95.8 femtoliters???MCH - 30.0 pg???MCHC - 31.3 g/dL???Platelet Count - 168 k/mm3???RDW-SD - 49.1 femtoliters???MPV - 10.3 femtoliters???Nucleated RBC (Automated) - 0.0 #/100 WBC'S???Abs. NRBC - 0.0 k/mm3???Abs. Neut - 4.9 k/ mm3???Abs. Lymph - 1.3 k/mm3???Abs. [place] - 0.7 k/mm3???Abs. Eo - 0.1 k/mm3???Abs. Baso - 0.0 k/mm3???Neut % - 69.7 %???Lymph % - 18.6 %???[place] % - 9.9 %???Eos % - 0.8 %???Baso % - 0.4 %???Imm Gran - 0.6 %???Abs. Imm Gran - 0.0 k/mm3 CK (CREATINE KINASE) (06/26/2022) ???CK, Total - 48 units/L Comprehensive Metabolic Panel (06/26/2022) ???Sodium - 132 mmol/L???Potassium - 5.0 mmol/L???Chloride - 92 mmol/L???Bicarbonate Level - 27 mmol/L???Anion Gap - 13???Glucose Level - 90 mg/dL???BUN - 35 mg/dL???Creatinine-Blood - 4.9 mg/dL???Estimated GFR Creatinine - 9 ML/MIN/1.73 M2???Calcium - 9.5 mg/dL???Protein, Total - 7.5 Gm/dL???Albumin - 3.8 Gm/dL???AG Ratio - 1.0???Alkaline Phosphatase - 106 units/L???AST (SGOT) - 28 units/L???ALT (SGPT) - 10 units/L???Bilirubin, Total - 0.5 mg/dL CORTISOL (06/26/2022) ???Cortisol Level - 25.7 ??g/dL COVID-19 (2019 Novel Coronavirus) PCR (06/27/2022) ???COVID-19 PCR Specimen Source - NASAL???COVID-19 PCR Result - NEGATIVE COVID-19, RSV, and Flu A/B, Rapid PCR (06/26/2022) ???Influenza A PCR - NEGATIVE???Influenza B PCR - NEGATIVE???RSV PCR - NEGATIVE???COVID-19 PCR Specimen Source - NASAL???COVID-19 PCR Result - NEGATIVE GLUCOSE POC (06/28/2022) ???Glucose, POC - 127 mg/dL HEMOGLOBIN A1C (06/26/2022) ???Hemoglobin A1C (Monitoring) - 5.3 % HOLD BLUE TUBE (06/26/2022) ???Hold Blue Top - SPECIMEN DISCARDED AFTER 4 HOURS. HOLD GREEN TUBE (06/26/2022) ???Hold Green Top - SPECIMEN DISCARDED AFTER 1 WEEK Lactate Level (06/26/2022) ???Lactate - 1.0 mmol/L Lipase (06/26/2022) ???Lipase - 83 units/L LIPID PANEL (06/26/2022) ???Cholesterol - 91 mg/dL???Triglycerides - 122 mg/dL???HDL Cholesterol - 35 mg/dL???LDL Cholesterol- 32 mg/dL???Non HDL Cholesterol - 56 mg/dL Lytes (06/27/2022) ???Sodium - 132 mmol/L???Potassium - 5.1 mmol/L???Chloride - 94 mmol/L???Bicarbonate Level - 28 mmol/L???Anion Gap - 10 MAGNESIUM (06/26/2022) ???Magnesium - 2.0 mg/dL PHOSPHORUS (06/26/2022) ???Phosphorus - 3.0 mg/dL Troponin T Quant (06/27/2022) ???Troponin T Quant - 0.09 ng/mL TSH WITH REFLEX TO FT4 (06/26/2022) ???TSH - 1.90 uIU/mL Allergies (NKA means No Known Allergies) Adderall Duloxetine??(diarrhea) atenolol??(Cardiac Palpitations) doxycycline Problems Active Problems??(26) Allergic rhinitis?? Anxiety state NOS?? Atrial fibrillation?? CABG (Coronary artery bypass grafting) planned?? CAD in comanche artery?? Chronic generalized pain?? 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 Chronic kidney disease (CKD) stage G3b/A3?? Depression, major?? ESRD - End stage renal disease?? KATHY (generalized anxiety disorder)?? Gout?? Heart failure with preserved ejection fraction?? History of smoking - quit 1978?? Hyperlipidemia?? Hypertension?? Hypertensive nephropathy?? Insomnia?? Ischemic cardiomyopathy?? 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 OA (osteoarthritis) of knee - both knees?? Osteoarthritis of lumbar spine?? Osteopenia?? Peripheral neuropathy?? Rectal prolapse?? Vitamin D deficiency?? Education Materials Below is the list of Educational Leaflet Providered with your Discharge Instructions. Valuables and Belongings I fully understand and agree that [facility] accepts no responsibility for all my personal property including clothing, toilet articles, radios, jewelry, dentures, hearing aids, rings, money, or any other property that is in my possession or is brought to me after admission. I understand certain valuables may be placed in a hospital safe for a short period of time. I understand that the hospital is not liable for loss or damage due to accident, fire, or other natural occurrence while said property is in the safe. I accept full responsibility for any personal property that I keep with me, and will not hold the hospital responsible in case of loss or disappearance. I acknowledge that i have been encouraged to send valuables and belongings home. ?? No Valuables/Belongings: No valuables/belongings present Date for Pt to Sign Valuables/Belongings: 06/28/22 15:20:00 ?? Other Discharge Information ? Case Management Discharge Plan?? Discharge Plan?? Discharge Agency Information?? Discharge Level of Care at Discharge: assisted facility Name of Person Notified of Transfer: Pt to notify her daughter Audrey Discharge Transportation Arranged: [facility] [address] [facility] [phone] ?? Mode of Transportation Arranged: Ambulance ?? Discharge Arranged Transport Date/Time: 06/28/22 17:00:00 ?? Discharge Nursing [facility]ilities: [facility] ? Pulmonary Rehab Status?? Pulmonary Rehab Discharge Status?? Respiratory Rate: 18 br/min ? Common Emergency Awareness Tips IS IT A STROKE? Act FAST and Check for these signs: FACE Does the face look uneven? ARM Does one arm drift down? SPEECH Does their speech sound strange? TIME Call at any sign of stroke ?? Heart Attack Signs Chest discomfort: Most heart attacks involve discomfort in the center of the chest and lasts more than a few minutes, or goes away and comes back. It can feel like uncomfortable pressure, squeezing, fullness or pain. Discomfort in upper body: Symptoms can include pain or discomfort in one or both arms, back, neck, jaw or stomach. Shortness of breath: With or without discomfort. Other signs: Breaking out in a cold sweat, nausea, or lightheaded. Remember, MINUTES DO MATTER. If you experience any of these heart attack warning signs, call to get immediate medical attention! ?? Smoking can increase your chances of developing chronic health problems and can cause harmful effects to other family members in your house. If you smoke, you are strongly encouraged to quit. Please call [facility] [employer] at [phone] or [phone]) or log in to [email or web address] for referrals to smoking cessation programs. ?? The National Suicide Prevention Hotline is available 06/03 if you or someone you know needs to find areason to keep living. By calling 7-838-950-Picateers (5595) you'll be connected to a skilled, trained counselor at a crisis center in your area. INPATIENT DISCHARGE INSTRUCTIONS SIGNATURE PAGE TRACEY HEARN Location:[facility] Registration Date and Time:06/26/2022 22:34 EST Primary Care Physician: Demarco GORMAN, [facility], I TRACEY HEARN, have received the above patient education materials/instructions and have verbalized understanding. If ambulance or transport services are being used I further acknowledge being givena choice of service. ?? If you need to contact me, please call me at this number: . Patient/Fraud Representative Name: Patient/Fraud Representative Signature: Relationship to Patient: Witness Name/Signature: Date: Hospital Progress note Liza Quinones: PERFORM, SIGN, VERIFY Event Display: Progress Note Hospital Authored Date: Patient: TRACEY HEARN Age: 72 years Sex: Female : 1950 Associated Diagnoses: None Author: Liza Quinones Findings Nursing Data Vital Signs : VITAL SIGNS SECTION 06/28/2022 11:05 EST Temperature 98.4 DegF Temperature Route Oral Pulse Rate 61 bpm Respiratory Rate 18 br/min Systolic Blood Pressure 126 mm Hg Diastolic Blood Pressure 61 mm Hg Blood pressure sites Arm, right Mean Arterial Pressure 83 mm Hg Pulse Pressure 65 mm Hg Oxygen Saturation 97 % Mode of Delivery (Oxygen) Room air . Narrative/Incidental Registered Nurse attestation: Governor???s COVID-19 Order 24 authorizing nursing practice by graduates and senior students of [employer]-approved nursing education programs in effect.. Evaluation A+Ox4. VSS. Pt denies SOB, chest pain, N/V/D. Respirations even and steady, on RA. on Tele NSR. On renal diet, pt tolerates diet well. Able to ambulate 1 asssist with walker. Continent of BM and urine.Pt being dishcarged to discharge unit. Report given to receiving nurse. All personal belongings sentwith pt. All pts needs were met. . Discharge Information Case Management Discharge Plan : Case Management Discharge Plan Data 06/28/2022 14:03 EST Discharge Level of Care at Discharge assisted facility Discharge Nursing Homes/Rehab Facilities [facility] Discharge Transportation Arranged [facility] [phone] Discharge Arranged Transport Date/Time 06/28/2022 17:00 Mode of Transportation Arranged Ambulance Name of Person Notified of Transfer Pt to notify her daughter Audrey Rehabilitation Discharge : Rehab Discharge Index 06/27/2022 12:24 EST Comments on treatment indicated 72 yo F presenting from facility with diarrheaand vomiting that started earlier this morning. WBAT SKilled PT for therex, transfers, amb c RW, stairs. rec return to rehab. Walker: distance 10-20 Distance pt will ambulate >70 ft c RW Full chart review completed Yes Hospital course see comment Other findings Pt is a low complexity evaluation Plan of care PT Gait training, Transfer training, Therapeutic exercise, Functional Activities, Balance training, Neuromuscular educationJazzmine GORMAN, Zi I: SIGN, MODIFY Erna Cowan NP: MODIFY, SIGN Erna Cowan NP: SIGN, VERIFY Erna Cowan NP: VERIFY, PERFORM Erna Cowan NP: PERFORM Event Display: Progress Note Hospital Authored Date: Patient: TRACEY HEARN Age: 72 years Sex: Female : 1950 Associated Diagnoses: None Author: Erna Cowan NP Hd yesterday with 2L removed - planned to be discharged back to rehab today Review of Systems Constitutional: nausea and vomiting resolved. Respiratory: no Shortness of breath. Cardiovascular: no Chest pain. Gastrointestinal: no Abdominal pain. Physical Examination Vitals Today's visit vitals : RENAL FLOWSHEET(Posting Range: 06/25/2022 0:00 EST - 06/28/2022 9:03 EST) 06/27/2022 5:05 EST Sodium 132 mmol/L L Potassium 5.1 mmol/L Chloride 94 mmol/L L Bicarbonate Level 28 mmol/L Anion Gap 10 Hgb 7.6 Gm/dL L Hct 24.2 % L WBC 5.0 k/mm3 . Vitals : VITAL SIGNS SECTION 06/28/2022 7:49 EST Temperature 98.4 DegF Temperature Route Oral Pulse Rate 63 bpm Respiratory Rate 19 br/min Systolic Blood Pressure 153 mm Hg H Diastolic Blood Pressure 66 mm Hg Blood pressure sites Arm, right Mean Arterial Pressure 95 mm Hg Pulse Pressure 87 mm Hg Oxygen Saturation 98 % Mode of Delivery (Oxygen) Room air . General Appearance No apparent distress. HEENT Moist mucous membranes. Respiratory Lungs: CTA. Cardiac No murmur/gallop/rub. Abdomen/GI Soft. Non-distended. Extremities No edema. Neurologic Alert. Oriented x 3 . Impression and Plan Ms. 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 Patient presented to [facility] on 06/26 in setting of multiple episodes of vomiting and diarrhea from rehab facility. As you know, patient suffered a right intertrochantericfracture and underwent right hip ORIF on 05/24 complicated by postoperative Vastus Lateralis Hematoma with accompany anemia. She was recently discharged on 06/13.Noted to have mildly elevated lipase and alk phos admitted for further management. Nephrology consulted to assist with management. 1. ESRD secondary to FSGS on HD MWF at [facility] while at Rehab at [facility] 2. Nausea/Vomiting 3. Intertrochanteric femur fracture s/p Right hip InterTANon 05/24 complicated by right vastus lateralis hematoma 4. Anemia of CKD 5. Hypertension 6. Hyponatremia Recommendations: Tracey presented to [facility] from [facility]hab with nausea and vomiting. CT scan with Findings highlysuspicious for lung cancer/malignancy with 2.3 cm left lower lobe mass. Recommend PET CT scan. Nausea and vomiting resolved but due to lung mass she will stay for further management. Nephrology consulted to assist with dialysis while patient in hospital. Patient underwent dialysis yesterday with 2L removed. Planned to return to rehab today. She can continue on her MWF schedule outpatient. Continue onrenal diet with fluid restriction. Dose meds for ESRD. Patient seen and discussed with Dr. Dover. Thank you for allowing us to participate in your patients care. Please call with any questions or concerns.Zi Dover MD I: PERFORM Event Display: Progress Note Hospital Authored Date: I reviewed the patient's history, examined the patient, and confirmed the above findings as documented by the advanced practitioner. I personally formulated the essential elements of the assessment andplan noted above. Dr. Brooklyn ENGLE, Skyla: SIGN, VERIFY, PERFORM Event Display: Progress Note Hospital Authored Date: [id number] Patient: TRACEY HEARN Age: 72 years Sex: Female : 1950 Associated Diagnoses: None Author: Ananth ENGLE, Skyla Findings Problem Related to Alteration in Gastrointestinal : Alteration in Gastrointestinal Func/new 06/28/2022 3:00 EST Alteration in GI status Related to Diarrhea, Other: Nausa/vomiting Goals & Outcomes, Gastrointestinal Establish a regular pattern of elimination for pt, Nutritional intake is adequate for metabolic needs, Pt will achieve normal/improved fluid balance, Pt will have a bowel movement prior to discharge, Pt will maintain adequate GI function appropriate for pt, Pt will maintain normal elimination patterns, Pt will resume/maintain adequate hemodynamic status, Pt will tolerate age appropriate diet prior to discharge Interventions, Gastrointestinal Assess/monitor abdomen for distention, tenderness, Assess/monitor abdominal girth & bowel function, Assess/monitor bowel pattern, bowel sounds, flatus, Assess/monitor number of bowel movements, Assess/monitor color, quantity, quality, consistency of stoo, Assess/monitor pt for nausea, vomiting, Assess/monitor effects of re-hydration, Assess/monitor intake & output, Assess if pt tolerating diet, Teach Pt/caregiver on bowel elimination interventions, Teach Pt/caregiver re: importance of bowel regime, Teach Pt/caregiver re: nutritional intake & dietary restrict, Teach/encourage deep breath & cough exercises, Teach/encourage use of incentive spirometer, Monitor & document reponse to anti-diarrhea meds Goals/Interventions, Gastrointestinal Yes Gastrointestinal, Problem Start 06/27/2022 20:00 Reviewed plan with, Gastrointestinal Patient Patient Progression, Gastrointestinal Pt progressing according to plan . Alteration in Respiratory Function (new) : Alteration in Respiratory Function/new 06/28/2022 3:00 EST Alteration in Resp Status Related to Other: new pulmonary nodule Goals & Outcomes, Respiratory Pt will maintain/resume baseline physical assessment, Pt will notdevelop complications r/t mechanical ventilation, Pt will maintain adequate nutritional intake, Pt will maintain/resume normal fluid/electrolyte balance, Pt will not develop complications r/t immobility, Pt will demonstrate proper technique w/self care procedures Interventions, Respiratory Assess/monitor tolerance to IV infusions; verify rate/dose, Assess for and report S&S of respiratory distress, Initiate VAP prevention strategies, Position for comfort & optimal oxygenation, Monitor sputum color & consistency. Report changes to MD, Teach/encourage use of incentive spirometer, Teach Pt/caregiver Smoking cessation education, Teach purse lip breathing as needed for breathing retraining, Teach tripod positioning to promote air exchange Goals/Interventions, Respiratory Yes Respiratory, Problem Start 06/28/2022 3:48 Reviewed Plan with, Respiratory Patient Patient Progression, Respiratory Patient progressing according to plan . Nursing Data Vital Signs : VITAL SIGNS SECTION 06/28/2022 3:45 EST Temperature 98.0 DegF Temperature Route Oral Pulse Rate 60 bpm Respiratory Rate 20 br/min Systolic Blood Pressure 152 mm Hg H Diastolic Blood Pressure 64 mm Hg Blood pressure sites Arm, right Mean Arterial Pressure 93 mm Hg Pulse Pressure 88 mm Hg Oxygen Saturation 95 % Mode of Delivery (Oxygen) Room air 06/28/2022 0:06 EST Early Warning Score 6.00 06/27/2022 23:58 EST Early Warning Score 6.00 06/27/2022 23:57 EST Temperature 98.4 DegF Temperature Route Oral Pulse Rate 59 bpm Respiratory Rate 20 br/min Systolic Blood Pressure 148 mm Hg H Diastolic Blood Pressure 58 mm Hg Blood pressure sites Arm, right Mean Arterial Pressure 88 mm Hg Pulse Pressure 90 mm Hg Oxygen Saturation 95 % Mode of Delivery (Oxygen) Room air . Evaluation pt had uneventful night. Continues to c/o pain 02/20 right hip which she received 2.5mg oxy with positive effect, slept throughout most of the night. Continues to be alert and oriented x4, confused regarding time but easily reoriented. No episodes of nausea or vomiting noted this shift. Pt dialyzed this afternoon. Plan to monitor symptoms following newly diagnosed lung mass on CT- per pt request daughter Audrey to not be told this information. Awaiting urine specimen to collect UA. Vitals within provider limits. Monitoring continues . Discharge Information Rehabilitation Discharge : Rehab Discharge Index 06/27/2022 12:24 EST Comments on treatment indicated 72 yo F presenting from facility with diarrheaand vomiting that started earlier this morning. WBAT SKilled PT for therex, transfers, amb c RW, stairs. rec return to rehab. Walker: distance 10-20 Distance pt will ambulate >70 ft c RW Full chart review completed Yes Hospital course see comment Other findings Pt is a low complexity evaluation Plan of care PT Gait training, Transfer training, Therapeutic exercise, Functional Activities, Balance training, Neuromuscular education CT Abdomen and Pelvis WO contrast BHSPowerscribe , CIS S: TRANSCRIBE Keny GORMAN, Main S: VERIFY Event Display: Result: Authored Date: [id number] CT Abdomen and Pelvis W/O Contrast Hx of Present Illness: pt presents to ED from rehab facility with c c of nausea vomiting diarrhea. PT reports diarrhea started at approx 3 am. Reports nausea vomiting started this afternoon. Reports vomiting clear liquid. Rehab facility reported fever. PT afebrile upon arrival.; Reason: Fever; Clinical Question(s): Diverticulitis; Order Comment: TECHNIQUE: Spiral CT through the abdomen and pelvis without IV contrast formatted in 3 planes. This study was performed without oral contrast. Weight- based protocol using automatic tube modulation was used to optimize exposure parameters. CTDIvol Body: 13.10 mGy, DLP Body: 848 mGy*cm. COMPARISON: No recent comparison CT scans of the abdomen available. A CT scan of the chest from 12/18/2020 is available. FINDINGS: [employer] View Findings, Lines and Tubes: None. Visualized Chest: There is a 2.3 cm nodule/mass with apparent spiculation at the left base. The finding raises concern for malignancy Diaphragm: Normal. Liver: Normal. Gallbladder: Calcified gallstones within the gallbladder. Bile ducts: No biliary ductal dilation. Spleen: Normal. Pancreas: Normal. Adrenal glands: Normal. Kidneys and ureters: Scattered calcifications in both kidneys. Likely benign renal cysts. No follow-up required. Bladder: Normal. Reproductive organs: Unremarkable. Stomach, small bowel, and large bowel: Colonic diverticulosis present. I do not see findings of acute diverticulitis. The wall of the colon appears mildly thickened diffusely raising possibility of diffuse colitis. Small hiatal hernia. Appendix: No evidence of acute appendicitis. Normal appendix. Peritoneum and retroperitoneum: No ascites or pneumoperitoneum. No omental or mesenteric lesions. Lymph nodes: No enlarged lymph nodes. Blood vessels: Moderate atherosclerotic vascular calcification. No aortic aneurysm. Abdominal and pelvic wall: Unremarkable. Bones: Postoperative findings in the right hip status post fixation of intertrochanteric fracture. Intertrochanteric fracture line still visible. No definite healing. IMPRESSION: Findings highly suspicious for lung cancer/malignancy with 2.3 cm left lower lobe mass. Recommend PET CT scan. Diffuse possible mild wall thickening of the colon to represent diffuse colitis. Cholelithiasis without evidence of surrounding inflammatory changes. No other acute abnormality identified. Findings discussed with Dr. eParson at time of dictation. WSN: [id number] Ordering Physician: Kahlil Pearson Dictated By: Main Bustillo MD Dictated Date/Time: 06/26/22 8:49 pm Reviewed By: Main Bustillo MD Signed By: Main Bustillo MD Signed Date/Time: 06/26/22 8:49 pm Transcribed By: JOHN Transcribed Date/Time: 06/26/22 8:25 pm Patient Care team information Care Team PersonnelName: Quan Virgen RN Position: S RN Member Role: Primary Care Nurse Name: Susana Chaney LPN Position: S RN Member Role: Primary Care Nurse Name: Betty Cabrera NP Position: [facility] Associate Professional Member Role: Primary Care Nurse Address: Address: [address] [place] [id number]- Name: Uma Ndiaye Position: [facility] Outreach Member Role: Lifetime Consulting Physician Name: Kirk Morse DO Position: [facility] Renal MD Member Role: Lifetime Consulting Physician Address: Address: [address] [place], [place] [address] [place] [address]- Name: Uma Valdovinos Position: [facility] Outreach Member Role: Lifetime Consulting Physician Name: Janelle Arora RN Position: S RN Member Role: Primary Care Nurse Name: Prasanna Belle III, RN Position: [facility] RN Member Role: Primary Care Nurse Name: Suellen Lazcano RN Position: [facility] ED RN W/OE and Tasks Member Role: Primary Care Nurse Name: Rubia Pardo LPN Position: [facility] RN Member Role: Primary Care Nurse Name: Florencio Ferreira MD Position: [facility] Renal MD Member Role: Lifetime Consulting Physician Address: Address: [address] [facility], [place] [address]- [place] Name: Priscila López RN Position: S RN Member Role: Primary Care Nurse Name: Silke Pal MD Position: [facility] Primary Care Physician Member Role: PCP Address: Address: [address] [place] [address] [facility] [place] [address]- [place] Name: Bonnie Ann RN Position: S RN Member Role: Primary Care Nurse Name: Felipa Burr RN Position: [facility] RN Member Role: Primary Care Nurse Name: Jennifer Alex RN Position: [facility] RN Member Role: Primary Care Nurse Name: Saskia Fontana RN Position: [facility] RN Member Role: Primary Care Nurse Name: Beatris Gatyan RN Position: [facility] RN Member Role: Primary Care Nurse Name: EmmaArlin Guzmán Attending Position: [facility] ED Medicine MD Name: Matthew Verma Position: [facility] ED TA [facility] Member Role: Library Science Instructor Name: Marge Jones RN Position: [facility] ED RN W/OE and Tasks Member Role: Patient Care Provider Name: Nia Campbell RN Position: [facility] ED RN W/OE and Tasks Member Role: Patient Care Provider Care Team Related PersonsName: AUDREY HEARN Address: home [address] [place] [id number] Name: YUSUF HEARN Address: [address] [place] [address]
--- OUTSIDE RECORDS SUMMARY | 2022-09-25 05:37 | XMS_ITS | Continuity of Care Document ---
:1950 Author Organization [facility] Address [address] [place] [address]- Care Team Providers Name Role Phone Silke Pal MD Primary Care Physician [place] [facility] [place]s): [place]/09/21 - 04/08/21 [facility] [address] [place] [address]- Attending Physician: Aniceto Multani Admitting Physician: Aniceto Multani Referring Physician: Admtr, Conner8 Allergies, Adverse Reactions, Alerts Substance Reaction Severity [...] tetanus/diphtheria/pertussis, acel(Tdap) 09/13/12 Given 1Result Comment: [05/31/2017] [id number] Note: 1-13 [facility] [id number] Comment: [12/31/2014 Uncharted] PUT IN TWICE Medications [...] tablet, 0 Refills, Maintenance, 01/04/21 15:38:00EDT, Tablet, [facility], Partial fill upon patient request if the prescription is for a schedule II opioid drug., 160, cm, 01/04/21 12:4... Start Date: 01/04/21 Status: OrderedEliquis 2.5 mg oral tablet 1 tablet = 2.5 mg, By Mouth, 2 times a day, discontinue coumadin, # 60 tablet, 5 Refills, Maintenance, 02/08/21 8:42:00 EDT, Tablet, [facility], 160, cm, 02/03/21 7:53:00 EDT, Height, 60.6, kg, 12/17/20 21:40:00 EDT, Dry Weight Start Date: 02/08/21 Stop Date: 08/07/21 Status: Orderedgabapentin 100 mg oral capsule 100 mg, 1, capsule, By Mouth, 2 times a day, # 180 capsule, Refills 3, Tot. Refills 3, Maintenance, 01/04/21 15:38:00 EDT, Route to Pharmacy Electronically, [facility], 160, cm, 01/04/21 12:45:00 EDT, Height, 60.6, kg, 12/17/20 21:40:00... Start Date: 01/04/21 Stop Date: 12/30/21 Status: Orderedlisinopril 10 mg oral tablet 10 mg, 1, tablet, By Mouth, Daily, # 30 tablet, Refills 0, Tot. Refills 0, Maintenance, 03/03/21 9:50:00 EDT, Route to Pharmacy Electronically, [facility], Partial fill upon patient [...] 6 Refills, Maintenance, 03/03/21 9:45:00 EDT, Tablet, [facility], Partial fill upon patient request if the prescription is for a schedule II opioid drug., 160, cm, 03/03/21 9:18:00 EDT, He... Start Date: 03/03/21 Status: Orderedsevelamer carbonate 800 mg oral tablet 1 tablet = 800 mg, By Mouth, 3 times a day, # 90 tablet, 0 Refills, Maintenance, 01/04/21 15:34:00 EDT, Tablet, [facility], Partial fill upon patient [...]
--- OUTSIDE RECORDS SUMMARY | 2022-09-25 05:37 | XMS_ITS | Continuity of Care Document ---
:1950 Author Organization [facility] Address [address] [place] [address]- Care Team Providers Name Role Phone Not on Staff, PCP Primary Care Physician Unavailable Encounter [facility] Date(s): 11/04/21 - 12/04/21 [facility] [address] [place], [place] [address] Attending Physician: Aniceto Multani Admitting Physician: AdmAniceto [...] tetanus/diphtheria/pertussis, acel(Tdap) 09/13/12 Given 1Result Comment: [05/31/2017] [id number] Note: 1-13 [facility] [id number] Comment: [12/31/2014 Uncharted] PUT IN TWICE Medications [...] 11/01/21 10:43:00 EDT, Route to Pharmacy Electronically, [facility], Partial fill upon patient [...]
--- OUTSIDE RECORDS SUMMARY | 2022-09-25 05:37 | XMS_ITS | Continuity of Care Document ---
:1950 Author Organization [facility] Address [address] [place] [address] Drive [address] [place] [address]- Care Team Providers Name Role Phone Kusum Bradley MD Primary Care Physician Encounter [facility] Date(s): 03/26/20 - 04/25/[address] [place] [address]- [facility] Allergies, Adverse Reactions, Alerts Substance [...] tetanus/diphtheria/pertussis, acel(Tdap) 09/13/12 Given 1Result Comment: [05/31/2017] [id number] Note: 1-13 [facility] [id number] Comment: [12/31/2014 Uncharted] PUT IN TWICE Medications amLODIPine 10 mg oral tablet 10 mg, 1, tablet, By Mouth, Daily, # 30 tablet, Refills 0, Maintenance, 04/13/20 9:57:00 EDT Start Date: 04/13/20 Status: Orderedcarvedilol 25 mg oral tablet 25 mg, 1, tablet, By Mouth, 2 times a day, # 180 tablet, Refills 3, Tot. Refills 3, Maintenance, 11/14/18 9:54:14 EDT, Route to Pharmacy Electronically, [id number], [facility] Start Date: 11/14/18 [...] 12/17/18 14:22:03 EDT, Route to Pharmacy Electronically, [id number], [facility] Start Date: [...]
--- OUTSIDE RECORDS SUMMARY | 2022-09-25 05:37 | XMS_ITS | Continuity of Care Document ---
:[address] [facility] Address [address] [place] [address]- Care Team Providers Name Role Phone Silke Pal MD Primary Care Physician Encounter [facility] [place] [place] Date(s): 07/04/22 - 08/17/22 [facility] [address] [place] [address]- Attending Physician: Silke Pal MD Allergies, Adverse [...] tetanus/diphtheria/pertussis, acel(Tdap) 09/13/12 Given 1Result Comment: [05/31/2017] [id number] Note: 1-13 [facility] [id number] Comment: [12/31/2014 Uncharted] PUT IN TWICE Medications [...] Confirmed Active (CKD) stage G3b/A3 CAD in [place] artery Confirmed Active Depression, major Confirmed Active [...] Care Team PersonnelName: Quan Virgen RN Position: [facility] RN Member Role: Primary Care Nurse Name: Susana Chaney LPN Position: [facility] RN Member Role: Primary Care Nurse Name: Betty Cabrera NP Position: [facility] Associate Professional Member Role: Primary Care Nurse Address: Address: [address] [place] [address]- [place] Name: Uma Ndiaye Position: [facility] Outreach Member Role: Lifetime Consulting Physician Name: Kirk Morse DO Position: [facility] Renal MD Member Role: Lifetime Consulting Physician Address: Address: [address] [place], [place] [address] [place] [address]- Name: Uma Valdovinos Position: [facility] Outreach Member Role: Lifetime Consulting Physician Name: Janelle Arora RN Position: [facility] RN Member Role: Primary Care Nurse Name: Prasanna Belle III, RN Position: [facility] RN Member Role: Primary Care Nurse Name: Suellen Lazcano RN Position: [facility] ED RN W/OE and Tasks Member Role: Primary Care Nurse Name: Rubia Pardo LPN Position: [facility] RN Member Role: Primary Care Nurse Name: Florencio Ferreira MD Position: [facility] Renal MD Member Role: Lifetime Consulting Physician Address: Address: [address] [place] [address] [address] [facility] [place] [address]- [place] Name: Priscila López RN Position: [facility] RN Member Role: Primary Care Nurse Name: Silke Pal MD Position: [facility] Primary Care Physician Member Role: PCP Address: Address: [address] [place] [address] Adult [place] [address]- Name: Bonnie Ann RN Position: [facility] RN Member Role: Primary Care Nurse Name: Felipa Burr RN Position: [facility] RN Member Role: Primary Care Nurse Name: Jennifer Alex RN Position: [facility] RN Member Role: Primary Care Nurse Name: Saskia Fontana RN Position: [facility] RN Member Role: Primary Care Nurse Name: Beatris Gaytan RN Position: [facility] RN Member Role: Primary Care Nurse Care Team Related PersonsName: AUDREY HAERN Address: home [address] [place] [address] Name: ABIMAEL HEARN Name: YUSUF HEARN Address: home [address] [place] [address]
--- OUTSIDE RECORDS SUMMARY | 2022-09-25 05:37 | XMS_ITS | Continuity of Care Document ---
:1950 Author Organization [facility] Address [address] [place] [address]- Care Team Providers Name Role Phone Silke Pal MD Primary Care Physician Encounter [facility] Date(s): 02/01/21 - 03/03/21 [facility] [address] [place] [address] Allergies, Adverse Reactions, Alerts Substance Reaction [...] tetanus/diphtheria/pertussis, acel(Tdap) 09/13/12 Given 1Result Comment: [05/31/2017] [id number] Note: 1-13 [facility] [id number] Comment: [12/31/2014 Uncharted] PUT IN TWICE Medications [...] tablet, 0 Refills, Maintenance, 01/04/21 15:38:00EDT, Tablet, [facility], Partial fill upon patient request if the prescription is for a schedule II opioid drug., 160, cm, 01/04/21 12:4... Start Date: 01/04/21 Status: OrderedEliquis 2.5 mg oral tablet 1 tablet = 2.5 mg, By Mouth, 2 times a day, discontinue coumadin, # 60 tablet, 5 Refills, Maintenance, 02/08/21 8:42:00 EDT, Tablet, [facility], 160, cm, 02/03/21 7:53:00 EDT, Height, 60.6, kg, 12/17/20 21:40:00 EDT, Dry Weight Start Date: 02/08/21 Stop Date: 08/07/21 Status: Orderedgabapentin 100 mg oral capsule 100 mg, 1, capsule, By Mouth, 2 times a day, # 180 capsule, Refills 3, Tot. Refills 3, Maintenance, 01/04/21 15:38:00 EDT, Route to Pharmacy Electronically, [facility], 160, cm, 01/04/21 12:45:00 EDT, Height, 60.6, kg, 12/17/20 21:40:00... Start Date: 01/04/21 Stop Date: 12/30/21 Status: Orderedlisinopril 10 mg oral tablet 10 mg, 1, tablet, By Mouth, Daily, # 30 tablet, Refills 0, Tot. Refills 0, Maintenance, 03/03/21 9:50:00 EDT, Route to Pharmacy Electronically, [facility], Partial fill upon [...] 6 Refills, Maintenance, 03/03/21 9:45:00 EDT, Tablet, [facility], Partial fill upon patient request if the prescription is for a schedule II opioid drug., 160, cm, 03/03/21 9:18:00 EDT, He... Start Date: 03/03/21 Status: Orderedsevelamer carbonate 800 mg oral tablet 1 tablet = 800 mg, By Mouth, 3 times a day, # 90 tablet, 0 Refills, Maintenance, 01/04/21 15:34:00 EDT, Tablet, [facility], Partial fill upon patient request if [...]
--- OUTSIDE RECORDS SUMMARY | 2022-09-25 05:37 | XMS_ITS | Continuity of Care Document ---
:1950 Author Organization [address] [address]- Care Team Providers Name Role Phone Kusum Bradley MD Primary Care Physician Encounter [facility] [place] Date(s): 05/08/20 - 06/07/[address] [address] [facility] Attending Physician: Aniceto Multani Admitting Physician: AdmAniceto [...] tetanus/diphtheria/pertussis, acel(Tdap) 09/13/12 Given 1Result Comment: [05/31/2017] [id number] Note: 1-13 [facility] [id number] Comment: [12/31/2014 Uncharted] PUT IN TWICE Medications amLODIPine 10 mg oral tablet 10 mg, 1, tablet, By Mouth, Daily, # 30 tablet, Refills 0, Maintenance, 04/13/20 9:57:00 EDT Start Date: 04/13/20 Status: Orderedcarvedilol 25 mg oral tablet 25 mg, 1, tablet, By Mouth, 2 times a day, # 180 tablet, Refills 3, Tot. Refills 3, Maintenance, 11/14/18 9:54:14 EDT, Route to Pharmacy Electronically, [id number], [facility] Start Date: 11/14/18 [...] 12/17/18 14:22:03 EDT, Route to Pharmacy Electronically, [id number], [facility] Start Date: [...]
--- OUTSIDE RECORDS SUMMARY | 2022-09-25 05:37 | XMS_ITS | Continuity of Care Document ---
:1950 Author Organization [facility] Address [address] [place] [address]- Care Team Providers Name Role Phone Silke Pal MD Primary Care Physician Encounter [facility] Date(s): 04/15/22 - 05/15/22 [facility] [address] [place] [address]- Allergies, Adverse Reactions, Alerts Substance Reaction Severity [...] tetanus/diphtheria/pertussis, acel(Tdap) 09/13/12 Given 1Result Comment: [05/31/2017] [id number] Note: 1-13 [facility] [id number] Comment: [12/31/2014 Uncharted] PUT IN TWICE Medications [...] 11/01/21 10:43:00 EDT, Route to Pharmacy Electronically, [facility], Partial fill upon patient request [...] tablet, 4 Refills, Maintenance, 04/21/22 10:23:00 EDT, [facility], 162.56, cm, 02/03/22 10:08:00 EDT, Height, 57.3, kg, 02/03/22 10:08:00 EDT, Dry Weight Start Date: 04/21/22 Status: Orderedsevelamer carbonate 800 mg oral tablet 1 tablet = 800 mg, By Mouth, 3 times a day, # 90 tablet, 0 Refills, Maintenance, 04/29/22 10:40:00 EDT, Tablet, Partial fill upon patient request if the prescription is for a schedule II opioid drug. Start Date: 04/29/22 Status: OrderedtraZODone 50 mg oral tablet TAKE 1 TABLET BY MOUTH EVERY DAY AT BEDTIME NEEDED FOR INSOMNIA Start Date: 08/27/21 Status: Ordered Problem List Condition Confirmation Course [...] 10/28/21 Sex Patient Care team information PersonnelName: Demarco GORMAN, Silke Address: Address: [address] [address]
--- OUTSIDE RECORDS SUMMARY | 2022-09-25 05:37 | XMS_ITS | Continuity of Care Document ---
:1950 Author Organization [facility] Address [address] [place] [address]- Care Team Providers Name Role Phone Kusum Bradley MD Primary Care Physician Encounter [facility] [place] Date(s): 12/17/20 - 01/04/[address] [address] Discharge Disposition: A-Transfer VNA/Home Health Attending Physician: Mireya Brown MD Admitting Physician: Garrick Morris MD Referring Physician: Garrick Morris MD Allergies, Adverse Reactions, Alerts Substance Reaction [...] tetanus/diphtheria/pertussis, acel(Tdap) 09/13/12 Given 1Result Comment: [05/31/2017] [id number] Note: 1-13 [facility] [id number] Comment: [12/31/2014 Uncharted] PUT IN TWICE Medications acetaminophen 325 mg oral tablet 975 mg, Tablet, By Mouth, 01/04/21 15:00:00 EDT Start Date: 01/04/21 Stop Date: 01/04/21 Status: Completedacetaminophen 325 mg oral tablet 975 mg, 3, tablet, By Mouth, Every 6 hours, Refills 0, Maintenance, 01/04/21 15:36:00 EDT, Partial fill upon patient request if the prescription is for a schedule II opioid drug. Start Date: 01/04/21 Status: Orderedamiodarone 200 mg oral tablet 200 mg, 1, tablet, By Mouth, 2 times a day, # 60 tablet, Refills 0, Tot. Refills 0, Maintenance, 01/04/21 15:36:00 EDT, Route to Pharmacy Electronically, [facility], Partial fill upon patient request if the prescription is for a schedule... Start Date: 01/04/21 Status: Orderedapixaban 2.5 mg oral tablet 1 tablet = 2.5 mg, By Mouth, 2 times a day, # 60 tablet, 0 Refills, Maintenance, 01/04/21 15:36:00 EDT, Tablet, [facility], Partial fill upon patient request if the prescription is for a schedule II opioid drug., 160, cm, 01/04/21 12:45:... Start Date: 01/04/21 Status: Orderedaspirin 81 mg oral delayed release [...] tablet, 0 Refills, Maintenance, 01/04/21 15:38:00EDT, Tablet, [facility], Partial fill upon patient request if the prescription is for a schedule II opioid drug., 160, cm, 01/04/21 12:4... Start Date: 01/04/21 Status: Orderedgabapentin 100 mg oral capsule 100 mg, 1, capsule, By Mouth, 2 times a day, # 180 capsule, Refills 3, Tot. Refills 3, Maintenance, 01/04/21 15:38:00 EDT, Route to Pharmacy Electronically, [facility], 160, cm, 01/04/21 12:45:00 EDT, Height, 60.6, kg, 12/17/20 21:40:00... Start Date: 01/04/21 Stop Date: 12/30/21 Status: Orderedmetoprolol 50 mg oral tablet, extended release 50 mg, XL Tablet, By Mouth, 01/04/21 14:33:00 EDT Start Date: 01/04/21 Stop Date: 01/04/21 Status: Completedmetoprolol 50 mg oral tablet, extended release 50 mg, 1, tablet, By Mouth, Daily, # 30 tablet, Refills 0, Tot. Refills 0, Maintenance, 01/04/21 15:37:00 EDT, Route to Pharmacy Electronically, [facility], Partial fill upon patient request if the prescription is for a schedule II opioi... Start Date: 01/04/21 Status: Orderedsertraline 50 mg oral tablet 1 tablet = 50 mg, By Mouth, Daily, # 30 tablet, 0 Refills, Maintenance, 01/04/21 15:34:00 EDT, Tablet, [facility], Partial fill upon patient request if the prescription is for a schedule II opioid drug., 160, cm, 01/04/21 12:45:00 EDT, H... Start Date: 01/04/21 Stop Date: 02/03/21 Status: Orderedsevelamer carbonate 800 mg oral tablet 1 tablet = 800 mg, By Mouth, 3 times a day, # 90 tablet, 0 Refills, Maintenance, 01/04/21 15:34:00 EDT, Tablet, [facility], Partial fill upon patient request if the prescription is for a schedule II opioid drug., 160, cm, 01/04/21 12:45:... Start Date: 01/04/21 Status: Orderedsodium bicarbonate 650 mg oral tablet 1 tablet = 650 mg, By Mouth, 3 times a day, for 30 days, # 90 tablet, 0 Refills, Acute 02/03/21 15:34:00 EDT, 01/04/21 15:34:00 EDT, Tablet, [facility], Partial fill upon patient request if the prescription is for a schedule II opioid dr... Start Date: 01/04/21 Stop Date: 02/03/21 Status: Ordered Problem List Condition Effective Dates [...] Active Vitamin D deficiency(Confirmed) Active 1Quit 1978 Results Orders for Microbiology Reports Name Date Blood Culture 12/21/20 Blood Culture #2 12/21/20 Blood Culture #2 12/18/20 Microbiology Reports TEST:Blood Culture STATUS:Auth (Verified) BODY SITE: SOURCE:Blood COLLECTED DATE/TIME:12/21/20 10:56 PMBlood Culture SPECIMEN DESCRIPTION : BLOOD R FA SPECIAL REQUESTS : NONE CULTURE : NO GROWTH 5 DAYS. REPORT STATUS : FINAL 12/27/2020TEST:Blood Culture, Second Order STATUS:Auth (Verified) BODY SITE: SOURCE:Blood COLLECTED DATE/TIME:12/21/20 10:56 PMBlood Culture, Second Order SPECIMEN DESCRIPTION : BLOOD LAC SPECIAL REQUESTS : NONE CULTURE : NO GROWTH 5 DAYS. REPORT STATUS : FINAL 12/27/2020TEST:Blood Culture, Second Order STATUS:Auth (Verified) BODY SITE: SOURCE:Blood COLLECTED DATE/TIME:12/18/20 5:23 PMBlood Culture, Second Order SPECIMEN DESCRIPTION : BLOOD NO SITE SPECIAL REQUESTS : NONE CULTURE : NO GROWTH 5 DAYS. REPORT STATUS : FINAL 12/23/2020adiology Reports Exam Date Time Procedure Performing Provider Status 12/30/20 11:52 AM Chest Portable Kala Monteiro; Auth (Verif ied) Notes:(Chest Portable) Reason For Exam: Shortness of BreathRESULT: Chest Portable Chest Portable upright at 11:37 AM Reason: Shortness of Breath; Clinical Question(s): Pleural Effusion COMPARISON: Multiple priors, the most recent 12/23/2020 FINDINGS: LINES AND TUBES: Right IJ double lumen central venous catheter with tip in the right atrium. LUNGS AND PLEURA: Lungs are well-aerated and clear with normal vascularity. Slight blunting of left costophrenic angle. No right pleural effusion. No pneumothorax. HEART, MEDIASTINUM AND DELFINO: Cardiac size and configuration appear unchanged. An atrial appendage clip again is noted along with evidence of a CABG procedure. Normal upper mediastinal and hilar contour. BONES AND SOFT TISSUES: Status post recent median sternotomy. Multiple old left rib fractures without change. Degenerative change in the left glenohumeral joint. Right shoulder prosthesis. IMPRESSION: Lungs are clear, without pneumothorax. Minimal left pleural effusion. Tip of central venous catheter in the right atrium. WSN: [id number] Ordering Physician: Clari Multani Dictated By: Alexey Mendoza MD Dictated Date/Time: 12/30/20 1:25 pm Reviewed By: Alexey Mendoza MD Signed By: Alexey Mendoza MD Signed Date/Time: 12/30/20 1:25 pm Transcribed By: JOHN Transcribed Date/Time: 12/30/20 1:22 pm Exam Date Time Procedure Performing Provider Status 12/25/20 6:26 PM C-Arm < 1 Hour Ze Sequeira (Verified) Notes:(C-Arm < 1 Hour) Reason For Exam: Hemodialysis catheterRESULT: C-Arm < 1 Hour C-Arm < 1 Hour INDICATION: Reason: Hemodialysis catheter; Special Instructions: TT 25min, FT 9sec COMPARISONS: None TECHNIQUE: Fluoroscopy support was provided. There was no radiologist in attendance. Fluoroscopy time: 9 seconds Technologist time: 25 minutes FINDINGS: Fluoroscopy support was provided. There was no radiologist in attendance. IMPRESSION: See above. WSN: [id number] Ordering Physician: Shalini Leiva Dictated By: Kahlil Perry MD Dictated Date/Time: 12/26/20 8:12 am Reviewed By: Kahlil Perry MD Signed By: Kahlil Perry MD Signed Date/Time: 12/26/20 8:12 am Transcribed By: JOHN Transcribed Date/Time: 12/25/20 8:12 pm Exam Date Time Procedure Performing Provider Status 12/23/20 6:12 AM Chest Portable Patel Kiser (Verifi ed) Notes:(Chest Portable) Reason For Exam: S/P Cardiac SurgeryRESULT: Chest Portable Examination: Portable chest performed on 12/23/2020 at 5:35 AM. History: Status post cardiac surgery. Findings: A frontal view of the chest is compared to a prior study dated 12/22/2020. Since the prior study, the endotracheal tube and enteric tube have been removed. The [place] catheter has been repositioned and is no longer coiled. The remainder of the support apparatus is unchanged. Sternotomy wires are intact. The cardiac silhouette is at the upper limits of normal for size. Dependent atelectasis is noted bilaterally. IMPRESSION: Support apparatus as described. Bibasilar atelectasis. WSN: [id number] Ordering Physician: Clifford Faust Dictated By: Gaby Carter MD Dictated Date/Time: 12/23/20 12:39 p Reviewed By: Gaby Carter MD Signed By: Gaby Carter MD Signed Date/Time: 12/23/20 12:39 pm Transcribed By: JOHN Transcribed Date/Time: 12/23/20 12:24 pm Exam Date Time Procedure Performing Provider Status 12/22/20 10:52 PM Chest Portable Charlie Truong ([facility] [place] ed) Notes:(Chest Portable) Reason For Exam: S/P Cardiac SurgeryRESULT: Chest Portable Chest Portable Reason: S P Cardiac Surgery; Clinical Question(s): Other:; Cardiac Tamponade; Special Instructions: On Admission to [facility] COMPARISON: 12/22/2020 at 0019 hours FINDINGS: LINES AND TUBES: Endotracheal tube terminates in the midthoracic trachea. Enteric tube terminates in the stomach. The central venous sheath terminates in the upper SVC. Left-sided [place] catheter terminates in the pulmonary outflow and appears somewhat coiled. Left-sided chest tube in place. Additional chest tube or mediastinal metastases terminate over the right para midline LUNGS AND PLEURA: Mild perihilar interstitial opacities. No dense consolidation. No pleural effusion. No pneumothorax. HEART, MEDIASTINUM AND DELFINO: Postsurgical changes. Atrial appendage clipping. Aortic arch atherosclerosis. BONES AND SOFT TISSUES: No acute findings. Multiple chronic left-sided rib fractures. Right shoulder arthroplasty. IMPRESSION: 1. Support lines and tubes as described. The left-sided approach [place] catheter appears to terminate near the pulmonary outflow, however is coiled distally. 2. Mild perihilar interstitial opacities most suggestive of mild pulmonary congestion. WSN: [id number] Ordering Physician: Garfield Boogie Dictated By: Augutso Benson DO Dictated Date/Time: 12/23/20 0:01 am Reviewed By: Augusto Benson DO Signed By: Augusto Benson DO Signed Date/Time: 12/23/20 0:01 am Transcribed By: JOHN Transcribed Date/Time: 12/22/20 11:59 pm Exam Date Time Procedure Performing Provider Status 12/22/20 12:27 AM Chest Portable Lizabeth Blank; Auth (Verified) Notes:(Chest Portable) Reason For Exam: FeverRESULT: Chest Portable Chest Portable REASON: Fever; Clinical Question(s): Pneumonia COMPARISON: Multiple priors, most recently 12/21/2020. FINDINGS: LINES AND TUBES: Right IJ central venous catheter terminating in the upper SVC. LUNGS AND PLEURA: Clear lungs. Normal pulmonary vascularity. Unchanged trace left pleural effusion, better seen on prior lateral image. No pneumothorax. HEART, MEDIASTINUM AND DELFINO: Heart is normal in size. Aorta is calcified. BONES AND SOFT TISSUES: Status post right shoulder hemiarthroplasty. Severe left shoulder osteoarthritis. Degenerative changes visualized spine. No acute abnormality. IMPRESSION: Stable exam. Unchanged trace left pleural effusion. I have personally reviewed the images and I agree with this report. WSN: [id number] Ordering Physician: Patricia Baltazar Dictated By: Shahida Poe DO Dictated Date/Time: 12/22/20 9:09 am Reviewed By: Santi Liu MD Signed By: Santi Liu MD Signed Date/Time: 12/22/20 9:14 am Transcribed By: CSMatthew Transcribed Date/Time: 12/22/20 8:49 am Exam Date Time Procedure Performing Provider Status 12/21/20 4:18 PM Chest 2 Views Frontal and Lat Randall Rivera; Auth (Verified) Notes:(Chest 2 Views Frontal and Lat) Reason For Exam: PreopRESULT: Chest 2 Views Frontal and Lat Chest 2 Views Frontal and Lat REASON: Preop COMPARISON: 10/05/2017. CT chest 12/18/2020. FINDINGS: LINES AND TUBES: Right IJ central venous catheter terminating in the upper SVC. LUNGS AND PLEURA: Clear lungs. Normal pulmonary vascularity. Trace left pleural effusion. No pneumothorax. HEART, MEDIASTINUM AND DELFINO: Mild prominence of the cardiac silhouette, unchanged. Aorta is calcified. BONES AND SOFT TISSUES: Status post right shoulder hemiarthroplasty. The humeral prosthesis appears subluxed superiorly fromthe glenoid. Severe left shoulder arthropathy. Old left rib fractures. IMPRESSION: Tiny left pleural effusion. The lungs are otherwise clear. Ancillary findings as above. I have personally reviewed the images and I agree with this report. WSN: [id number] Ordering Physician: Juan Heredia Dictated By: Shahida Poe DO Dictated Date/Time: 12/21/20 4:57 pm Reviewed By: Sunny Vogt MD Signed By: Sunny Vogt MD Signed Date/Time: 12/21/20 5:02 pm Transcribed By: JOHN Transcribed Date/Time: 12/21/20 4:53 pm Vital Signs Most recent to oldest 1 2 3 [Reference Range]: Height 160 cm 160 cm 160 cm (01/04/21 5:20 PM) (01/04/21 12:45 PM) (01/04/21 8: 08 AM) Weight 62.7 kg 71.3 kg 71.7 kg (01/04/21 4:49 AM) (01/01/21 3:50 AM) (12/31/20 3:4 2 AM) Oxygen Saturation [94-100 %] 100 % 97 % 98 % (01/04/21 5:20 PM) (01/04/21 12:45 PM) (01/04/21 8: 08 AM) Pulse Rate [55-90 bpm] 73 bpm 68 bpm 68 bpm (01/04/21 5:20 PM) (01/04/21 5:05 PM) (01/04/21 12: 45 PM) Body Mass Index [18.5-24.99] 26.88 26.76 23. 67 *H* *H* (12/22/20 1:20 PM ) (12/27/20 3:59 AM) (12/25/20 4:42 PM) Blood Pressure [90-138/55-84 166/69 mm Hg 156/78 mm Hg 156 /78 mm Hg mm Hg] *H* *H* *H* (01/04/21 5:20 PM) (01/04/21 5:05 PM) (01/04/21 12: 45 PM) Respiratory Rate [16-30 18 br/min 12 br/min 18 br/mi n br/min] (01/04/21 5:20 PM) *L* (01/04/21 12:45 PM) (01/04/21 3:11 PM) Temperature [96.8-100.4 DegF] 98.3 DegF 98.3 DegF 98 .8 DegF (01/04/21 5:20 PM) (01/04/21 12:45 PM) (01/04/21 8: 08 AM) Liters per Minute 0 L/min 0 L/min 1 L/min (01/04/21 5:20 PM) (01/04/21 8:08 AM) (01/01/21 8:0 1 AM) Mode of Delivery (Oxygen) Room air Room air Room a ir (01/04/21 5:20 PM) (01/04/21 12:45 PM) (01/04/21 8: 08 AM) Blood pressure sites Arm, left Arm, left Arm, left (01/04/21 5:20 PM) (01/04/21 12:45 PM) (01/04/21 8: 08 AM) Temperature Route Oral Oral Oral (01/04/21 5:20 PM) (01/04/21 12:45 PM) (01/04/21 8: 08 AM) Dry Weight 60.6 kg (12/17/20 9:29 PM) Weight Obtained Via Bed scale Bed scale Bed scale (01/04/21 4:49 AM) (01/01/21 3:50 AM) (12/31/20 3:4 2 AM) Social History Social History Type Response Smoking Status Former smoker entered on: 03/30/18 Sex
--- OUTSIDE RECORDS SUMMARY | 2022-09-25 05:37 | XMS_ITS | Continuity of Care Document ---
:1950 Author Organization [facility] Address Unavailable , Care Team Providers Name Role Phone Not on Staff, PCP Primary Care Physician Unavailable Encounter [facility] Date(s): 10/15/21 - 12/29/21 [facility] Attending Physician: Jethro Hampton MD Referring [...] tetanus/diphtheria/pertussis, acel(Tdap) 09/13/12 Given 1Result Comment: [05/31/2017] [id number] Note: 1-13 [facility] [id number] Comment: [12/31/2014 Uncharted] PUT IN TWICE Medications [...] 10:43:00 EDT, Route to Pharmacy Electronically, [facility], Partial fill upon patient [...]
--- OUTSIDE RECORDS SUMMARY | 2022-09-25 05:37 | XMS_ITS | Continuity of Care Document ---
:1950 Author Organization [facility] Address [address] [place] [address]- Care Team Providers Name Role Phone Silke Pal MD Primary Care Physician [facility] Date[facility]): 09/13/21 - 10/13/21 [facility] [address] [place] [address]- Allergies, Adverse Reactions, Alerts Substance Reaction Severity [...] tetanus/diphtheria/pertussis, acel(Tdap) 09/13/12 Given 1Result Comment: [05/31/2017] [id number] Note: 1-13 STOP AND SHOP [id number] Comment: [12/31/2014 Uncharted] PUT IN TWICE Medications [...] tablet, 0 Refills, Maintenance, 01/04/21 15:38:00EDT, Tablet, [facility] 3, Partial fill upon patient [...] A DAY, # 56 tablet, 10 Refills, [facility], 162, cm, 07/06/21 9:31:00 EST, [...] 01/04/21 15:38:00 EDT, Route to Pharmacy Electronically, [facility], 160, cm, 01/04/21 [...] 6 Refills, Maintenance, 03/03/21 9:45:00 EDT, Tablet, [facility], Partial fill upon [...] 0 Refills, Maintenance, 01/04/21 15:34:00 EDT, Tablet, [facility], Partial fill upon [...]
--- OUTSIDE RECORDS SUMMARY | 2022-09-25 05:38 | XMS_ITS | Continuity of Care Document ---
:1950 Author Organization [facility] Address [address] [place] [address]- Care Team Providers Name Role Phone Silke Pal MD Primary Care Physician [facility] Date[facility] 09/23/21 - 09/30/21 [facility] [address] [place], [place] [address] Attending Physician: Silke Pal MD Allergies, Adverse [...] tetanus/diphtheria/pertussis, acel(Tdap) 09/13/12 Given 1Result Comment: [05/31/2017] [id number] Note: 1-13 STOP AND SHOP [id number] Comment: [12/31/2014 Uncharted] PUT IN TWICE Medications [...] tablet, 0 Refills, Maintenance, 01/04/21 15:38:00EDT, Tablet, [facility], Partial fill upon [...] A DAY, # 56 tablet, 10 Refills, [facility], 162, cm, 07/06/21 9:31:00 EST, [...] 01/04/21 15:38:00 EDT, Route to Pharmacy Electronically, [facility], 160, cm, 01/04/21 [...] 6 Refills, Maintenance, 03/03/21 9:45:00 EDT, Tablet, [facility], Partial fill upon [...] 0 Refills, Maintenance, 01/04/21 15:34:00 EDT, Tablet, [facility], Partial fill upon [...]
--- OUTSIDE RECORDS SUMMARY | 2022-09-25 05:38 | XMS_ITS | Continuity of Care Document ---
:1950 Author Organization [facility] Address [address] [place] [address]- Care Team Providers Name Role Phone Silke Pal MD Primary Care Physician [facility] Date(s): 06/14/21 - 08/06/[address] [address] Attending Physician: Jethro Hampton MD Referring Physician: Jethro [...] tetanus/diphtheria/pertussis, acel(Tdap) 09/13/12 Given 1Result Comment: [05/31/2017] [id number] Note: 1-13 STOP AND SHOP [id number] Comment: [12/31/2014 Uncharted] PUT IN TWICE Medications [...] 01/17/21 14:19:00 EDT, Route to Pharmacy Electronically, [facility], Partial fill upon patient [...] tablet, 0 Refills, Maintenance, 01/04/21 15:38:00EDT, Tablet, [facility] 3, Partial fill upon patient request if the prescription is for a schedule II opioid drug., 160, cm, 01/04/21 12:4... Start Date: 01/04/21 Status: OrderedEliquis 2.5 mg oral tablet 1 tablet = 2.5 mg, By Mouth, 2 times a day, discontinue coumadin, # 60 tablet, 5 Refills, Maintenance, 02/08/21 8:42:00 EDT, Tablet, [facility], 160, cm, 02/03/21 7:53:00 EDT, [...] 15:38:00 EDT, Route to Pharmacy Electronically, [facility], 160, cm, 01/04/21 12:45:00 EDT, [...] 01/17/21 14:20:00 EDT, Route to Pharmacy Electronically, [facility], Partial fill upon patient request if the prescription is for a schedule II opio... Start Date: 01/17/21 Status: Orderedmetoprolol 100 mg oral tablet, extended release 100 mg, 1, tablet, By Mouth, Daily, # 90 tablet, Refills 3, Tot. Refills 3, Maintenance, 07/07/21 10:32:00 EST, Route to Pharmacy Electronically, [facility], Partial fill upon patient [...] Maintenance, 03/03/21 9:45:00 EDT, Tablet, [facility] 3, Partial fill upon patient request [...] 0 Refills, Maintenance, 01/04/21 15:34:00 EDT, Tablet, [facility], [...] 07/29/21 9:40:00 EST, Route to Pharmacy Electronically, [facility], 162, cm, 07/06/21 9:31:00 EST, [...]
--- OUTSIDE RECORDS SUMMARY | 2022-09-25 05:38 | XMS_ITS | Continuity of Care Document ---
:1950 Author Organization [facility] Address [address] [place] [address]- Care Team Providers Name Role Phone Silke Pal MD Primary Care Physician [facility] Date[facility]s): 06/06/22 - 06/13/[address] [address] Discharge Disposition: A-Transfer SNF Attending Physician: Inder Ko MD Admitting Physician: Kat Chen MD Referring Physician: Not on Staff, Referring [...] tetanus/diphtheria/pertussis, acel(Tdap) 09/13/12 Given 1Result Comment: [05/31/2017] [id number] Note: 08-26 STOP AND SHOP [id number] Comment: [12/31/2014 Uncharted] PUT IN TWICE Medications acetaminophen 325 mg oral tablet 650 mg, 2, tablet, By Mouth, Every 6 hours, 2 DAYS???for right knee pain, Refills 0, Maintenance, 01/04/21 15:36:00 EDT, Partial [...] opioid drug. Start Date: 05/26/22 Status: Orderedcarvedilol 6.25 mg oral tablet 6.25 mg, 1, tablet, By Mouth, 2 times a day, Refills 0, Maintenance, 06/13/22 13:35:00 EDT, Partial fill upon patient request if the prescription is for a schedule II opioid drug. Start Date: 06/13/22 Status: Orderedcarvedilol 6.25 mg oral tablet 6.25 mg, Tablet, By Mouth, 06/12/22 21:00:00 EDT Start Date: 06/12/22 Stop Date: 06/12/22 Status: CompletedcloNIDine 0.2 mg/24 hr transdermal film, [...] 05/17/22 13:16:00 EDT, Route to Pharmacy Electronically, [facility] [facility], Partial fill upon patient request if the p... Start Date: 05/17/22 Stop Date: 06/16/22 Status: Orderedgabapentin 100 mg oral capsule 200 mg, 2, capsule, By Mouth, Daily at bedtime, # 60 capsule, Refills 0, Tot. Refills 0, Maintenance, 05/17/22 13:17:00 EDT, Route to Pharmacy Electronically, [facility], Partial fill upon patient request if the prescription is for a ramakrishna... Start Date: 05/17/22 Stop Date: 06/16/22 Status: Orderedgabapentin 100 mg oral capsule 100 mg, Capsule, By Mouth, 06/13/22 17:00:00 EDT Start Date: 06/13/22 Stop Date: 06/13/22 Status: CompletedLisinopril = 20 mg, By Mouth, 2 times a day, 0 Refills, Maintenance, 09/20/21 17:08:00 EST, Partial fill upon patient request if the prescription is for a schedule II opioid drug. Start Date: 09/20/21 Status: OrderedoxyCODONE 5 mg oral tablet 2.5 mg, 0.5, tablet, By Mouth, Every 6 hours, PRN, # 6 tablet, Refills 0, Tot. Refills 0, Maintenance, Pain , Moderate, 06/13/22 13:36:00 EDT, Partial fill upon patient request if the prescription is for a schedule II opioid drug. Start Date: 06/13/22 Stop Date: 06/16/22 Status: OrderedoxyCODONE 5 mg oral tablet 5 mg, Tablet, By Mouth, Every 4 hours, PRN for Pain , Moderate, Routine, 06/09/22 15:41:00 EDT Start Date: 06/09/22 Stop Date: 06/16/22 Status: OrderedRobitussin DM Liquid 10 mL, By Mouth, Every 4 hours, PRN Cough, 0 Refills, Maintenance, 05/26/22 13:28:00 EDT, Syrup, Partial fill upon patient request if the prescription is for a schedule II opioid drug. 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 REPORT STATUS : PRELIMINARY REPORT TEST:Sterile Fluid Culture STATUS:Auth (Verified) BODY SITE: SOURCE:JOINT COLLECTED DATE/TIME:06/09/22 12:58 PMSterile Fluid Culture SPECIMEN DESCRIPTION : JOINT FLUID SPECIAL REQUESTS : NONE GRAM STAIN : 4+ RBC'S NO ORGANISMS SEEN CULTURE : NO GROWTH 2 DAYS REPORT STATUS : FINAL 06/11/2022TEST:Blood Culture STATUS:Auth (Verified) BODY SITE: SOURCE:Blood COLLECTED DATE/TIME:06/08/22 9:36 PMBlood Culture SPECIMEN DESCRIPTION : BLOOD R ARM SPECIAL REQUESTS : NONE CULTURE : NO GROWTH 5 DAYS. REPORT STATUS : FINAL 06/13/2022TEST:Blood Culture, Second Order STATUS:Auth (Verified) BODY SITE: SOURCE:Blood COLLECTED DATE/TIME:06/08/22 9:36 PMBlood Culture, Second Order SPECIMEN DESCRIPTION : BLOOD R ARM SPECIAL REQUESTS : NONE CULTURE : NO GROWTH 5 DAYS. REPORT STATUS : FINAL 2Radiology Reports Exam Date Time Procedure Performing Provider Status 06/09/22 8:12 AM Knee 1 or 2 Views Right Arlen Kauffman; Auth ( Verified) Notes:(Knee 1 or 2 Views Right) Reason For Exam: EffusionRESULT: Knee 1 or 2 Views Right Knee 1 or 2 Views Right, 2 views REASON: Effusion; Clinical Question(s): fracture, effusion COMPARISON: 06/06/2022 FINDINGS: There is no evidence of acute or healing fracture, dislocation or bone lesion. Severe medial compartment joint space narrowing subchondral sclerosis and osteophytosis. Lucency in the intercondylar notch of the distal femur is likely a subchondral cyst and is similar to prior exams. Large joint effusion. Diffuse vascular calcifications. IMPRESSION: Medial compartment osteoarthritis with large joint effusion. No fracture identified. WSN: [id number] Ordering Physician: David Prescott Dictated By: Chris Cole MD Dictated Date/Time: 06/09/22 8:31 am Reviewed By: Chris Cole MD Signed By: Chris Cole MD Signed Date/Time: 06/09/22 8:31 am Transcribed By: JOHN Transcribed Date/Time: 06/09/22 8:29 am Exam Date Time Procedure Performing Provider Status 06/08/22 9:54 PM Chest Portable Clifford Rodríguez; Jaswinder (Verified) Notes:(Chest Portable) Reason For Exam: FeverRESULT: Chest Portable Chest Portable Reason: Fever; Clinical Question(s): Pneumonia COMPARISON: X-ray 05/16/2022. FINDINGS: LINES AND TUBES: Right internal jugular Port-A-Cath tip in right atrium. LUNGS AND PLEURA: Previously seen pulmonary edema has resolved. Central vascular markings are mildly prominent. No focal consolidation or volume loss. No pleural effusion. No pneumothorax. HEART, MEDIASTINUM AND DELFINO: Status post median sternotomy. Mild prominence of the cardiac silhouette. Normal mediastinal and hilar contour. BONES AND SOFT TISSUES: No acute abnormality. IMPRESSION: Resolving pulmonary edema. No pneumonia. WSN: [id number] Ordering Physician: David Prescott Dictated By: Chris Donnelly MD Dictated Date/Time: 06/08/22 10:54 p Reviewed By: Chris Donnelly MD Signed By: Chris Donnelly MD Signed Date/Time: 06/08/22 10:54 pm Transcribed By: JOHN Transcribed Date/Time: 06/08/22 10:51 pm Exam Date Time Procedure Performing Provider Status 06/06/22 9:59 PM XR Femur 2 Views Right Francie Avila; Jaswinder (Verified) Notes:(XR Femur 2 Views Right) Reason For Exam: with Pain;TraumaRESULT: Femur 2 Views Right Femur 2 Views Right, views Reason: Trauma; with Pain; Clinical Question(s): Fracture COMPARISON: 05/23/2022 FINDINGS: Status post placement of intramedullary charity and hip screws. Anatomic alignment. No radiographic evidence of complication. IMPRESSION: See above WSN: [id number] Ordering Physician: Gutierrez Jauregui Dictated By: Main Bustillo MD Dictated Date/Time: 06/06/22 10:03 p Reviewed By: Main Bustillo MD Signed By: Main Bustillo MD Signed Date/Time: 06/06/22 10:03 pm Transcribed By: JOHN Transcribed Date/Time: 06/06/22 10:03 pm Vital Signs Most recent to oldest 1 2 3 [Reference Range]: Height 162 cm 162 cm 162 cm (06/13/22 3:13 PM) (06/13/22 8:06 AM) (06/12/22 8:03 PM) Weight 61.9 kg (06/07/22 9:55 AM) Oxygen Saturation [94-100 95 % 98 % 100 % %] (06/13/22 3:13 PM) (06/13/22 8:06 AM) (06/12/22 8:03 PM) Pulse Rate [55-90 bpm] 65 bpm 55 bpm 55 bpm (06/13/22 3:13 PM) (06/13/22 8:06 AM) (06/12/22 10:44 PM) Body Mass Index [18.5-24.99 23.59 kg/m2 kg/m2] (06/07/22 9:55 AM) Blood Pressure 120/72 mm Hg 121/54 mm Hg 103/51 mm Hg [90-138/55-84 mm Hg] (06/13/22 3:13 PM) (06/13/22 8:06 AM) (05/16 0 10:44 PM) Respiratory Rate [16-30 18 br/min 20 br/min 18 br/mi n br/min] (06/13/22 5:28 PM) (06/13/22 4:14 PM) (06/13/22 3:13 PM) Temperature [96.8-100.4 98.7 DegF 98.0 DegF 98.2 Deg F DegF] (06/13/22 3:13 PM) (06/13/22 8:06 AM) (06/12/22 8:03 PM) Mode of Delivery (Oxygen) Room air Room air Room a ir (10/31/22 3:13 PM) (06/13/22 8:06 AM) (06/12/22 8:03 PM) Blood pressure sites Arm, right Arm, right Arm, left (06/13/22 3:13 PM) (06/13/22 8:06 AM) (06/12/22 8:03 PM) Temperature Route Oral Oral Oral (06/13/22 3:13 PM) (06/13/22 8:06 AM) (06/12/22 8:03 PM) Dry Weight 61.9 kg (06/07/22 9:55 AM) Social History Social History Type Response Smoking Status Former smoker, quit more padmini n 30 days ago; Never entered on: 10/28/21 Sex XR Knee - right 1 or 2 Views BHSPowerscribe , CIS S: TRANSCRIBE Chris Cole MD: VERIFY Event Display: Result: Authored Date: [id number] Knee 1 or 2 Views Right, 2 views REASON: Effusion; Clinical Question(s): fracture, effusion COMPARISON: 06/06/2022 FINDINGS: There is no evidence of acute or healing fracture, dislocation or bone lesion. Severe medial compartment joint space narrowing subchondral sclerosis and osteophytosis. Lucency in the intercondylar notch of the distal femur is likely a subchondral cyst and is similar to prior exams. Large joint effusion. Diffuse vascular calcifications. IMPRESSION: Medial compartment osteoarthritis with large joint effusion. No fracture identified. WSN: [id number] Ordering Physician: David Prescott Dictated By: Chris Cole MD Dictated Date/Time: 06/09/22 8:31 am Reviewed By: Chris Cole MD Signed By: Chris Cole MD Signed Date/Time: 06/09/22 8:31 am Transcribed By: JOHN Transcribed Date/Time: 06/09/22 8:29 am XR Femur - right 2 Views BHSPowerscribe , CIS S: TRANSCRIBE Main Bustillo MD: VERIFY Event Display: Result: Authored Date: [id number] Femur 2 Views Right, views Reason: Trauma; with Pain; Clinical Question(s): Fracture COMPARISON: 05/23/2022 FINDINGS: Status post placement of intramedullary charity and hip screws. Anatomic alignment. No radiographic evidence of complication. IMPRESSION: See above WSN: [id number] Ordering Physician: Gutierrez Jauregui Dictated By: Main Bustillo MD Dictated Date/Time: 06/06/22 10:03 p Reviewed By: Main Bustillo MD Signed By: Main Bustillo MD Signed Date/Time: 06/06/22 10:03 pm Transcribed By: JOHN Transcribed Date/Time: 06/06/22 10:03 pm Portable XR Chest Views BHSPowerscribe , CIS S: TRANSCRIBE Chris Donnelly MD: VERIFY Event Display: Result: Authored Date: [id number] Chest Portable Reason: Fever; Clinical Question(s): Pneumonia COMPARISON: X-ray 05/16/2022. FINDINGS: LINES AND TUBES: Right internal jugular Port-A-Cath tip in right atrium. LUNGS AND PLEURA: Previously seen pulmonary edema has resolved. Central vascular markings are mildly prominent. No focal consolidation or volume loss. No pleural effusion. No pneumothorax. HEART, MEDIASTINUM AND DELFINO: Status post median sternotomy. Mild prominence of the cardiac silhouette. Normal mediastinal and hilar contour. BONES AND SOFT TISSUES: No acute abnormality. IMPRESSION: Resolving pulmonary edema. No pneumonia. WSN: [id number] Ordering Physician: David Prescott Dictated By: Chris Donnelly MD Dictated Date/Time: 06/08/22 10:54 p Reviewed By: Chris Donnelly MD Signed By: Chris Donnelly MD Signed Date/Time: 06/08/22 10:54 pm Transcribed By: JOHN Transcribed Date/Time: 06/08/22 10:51 pm Patient Care team information PersonnelName: Silke Pal MD Address: Address: [address] [place] [address] [facility] [address]
--- OUTSIDE RECORDS SUMMARY | 2022-09-25 05:38 | XMS_ITS | Continuity of Care Document ---
:1950 Author Organization [facility] Address [address] [place] [address]- Care Team Providers Name Role Phone Silke Pal MD Primary Care Physician Encounter [facility] Date(s): 10/06/21 - 11/24/21 [facility] [address] [place], [place] [address] Attending Physician: Silke Pal MD Referring Physician: Jethro Hampton MD Allergies, [...] tetanus/diphtheria/pertussis, acel(Tdap) 09/13/12 Given 1Result Comment: [05/31/2017] [id number] Note: 1-13 STOP AND SHOP [id number] Comment: [12/31/2014 Uncharted] PUT IN TWICE Medications [...] 11/01/21 10:43:00 EDT, Route to Pharmacy Electronically, [facility], Partial fill upon [...]
--- OUTSIDE RECORDS SUMMARY | 2022-09-25 05:38 | XMS_ITS | Continuity of Care Document ---
:1950 Author Organization [facility] Address [address] [place] [address]- Care Team Providers Name Role Phone Silke Pal MD Primary Care Physician [facility] [place]s): 03/23/21 - 04/22/21 [facility] [address] [place], [place] [address] Allergies, Adverse Reactions, Alerts [...] tetanus/diphtheria/pertussis, acel(Tdap) 09/13/12 Given 1Result Comment: [05/31/2017] [id number] Note: 1-13 STOP AND SHOP [id number] Comment: [12/31/2014 Uncharted] PUT IN TWICE Medications [...] 01/17/21 14:19:00 EDT, Route to Pharmacy Electronically, [facility], Partial fill upon patient request if [...] tablet, 0 Refills, Maintenance, 01/04/21 15:38:00EDT, Tablet, [facility] [facility], Partial fill upon patient request if the prescription is for a schedule II opioid drug., 160, cm, 01/04/21 12:4... Start Date: 01/04/21 Status: OrderedEliquis 2.5 mg oral tablet 1 tablet = 2.5 mg, By Mouth, 2 times a day, discontinue coumadin, # 60 tablet, 5 Refills, Maintenance, 02/08/21 8:42:00 EDT, Tablet, [facility], 160, cm, 02/03/21 [...] 01/04/21 15:38:00 EDT, Route to Pharmacy Electronically, [facility], 160, cm, 01/04/21 12:45:00 EDT, Height, [...] 03/03/21 9:50:00 EDT, Route to Pharmacy Electronically, [facility] 3, Partial fill upon patient request [...] 01/17/21 14:20:00 EDT, Route to Pharmacy Electronically, [facility] [place], Partial fill upon patient request if [...] 6 Refills, Maintenance, 03/03/21 9:45:00 EDT, Tablet, [facility] 3, Partial fill upon patient request [...] 0 Refills, Maintenance, 01/04/21 15:34:00 EDT, Tablet, [facility], Partial fill upon patient request if [...]
--- OUTSIDE RECORDS SUMMARY | 2022-09-25 05:38 | XMS_ITS | Continuity of Care Document ---
:1950 Author Organization [facility] Address [address] [place] [address]- Care Team Providers Name Role Phone Silke Pal MD Primary Care Physician [facility] Date(s): 03/02/21 - 04/01/21 [facility] [address] [place] [address]- Allergies, Adverse Reactions, Alerts Substance Reaction Severity [...] tetanus/diphtheria/pertussis, acel(Tdap) 09/13/12 Given 1Result Comment: [05/31/2017] [id number] Note: 1-13 STOP AND SHOP [id number] Comment: [12/31/2014 Uncharted] PUT IN TWICE Medications [...] tablet, 0 Refills, Maintenance, 01/04/21 15:38:00EDT, Tablet, [facility], Partial fill upon patient request if the prescription is for a schedule II opioid drug., 160, cm, 01/04/21 12:4... Start Date: 01/04/21 Status: OrderedEliquis 2.5 mg oral tablet 1 tablet = 2.5 mg, By Mouth, 2 times a day, discontinue coumadin, # 60 tablet, 5 Refills, Maintenance, 02/08/21 8:42:00 EDT, Tablet, [facility], 160, cm, 02/03/21 7:53:00 EDT, Height, 60.6, kg, 12/17/20 21:40:00 EDT, Dry Weight Start Date: 02/08/21 Stop Date: 08/07/21 Status: Orderedgabapentin 100 mg oral capsule 100 mg, 1, capsule, By Mouth, 2 times a day, # 180 capsule, Refills 3, Tot. Refills 3, Maintenance, 01/04/21 15:38:00 EDT, Route to Pharmacy Electronically, [facility], 160, cm, 01/04/21 12:45:00 EDT, Height, 60.6, kg, 12/17/20 21:40:00... Start Date: 01/04/21 Stop Date: 12/30/21 Status: Orderedlisinopril 10 mg oral tablet 10 mg, 1, tablet, By Mouth, Daily, # 30 tablet, Refills 0, Tot. Refills 0, Maintenance, 03/03/21 9:50:00 EDT, Route to Pharmacy Electronically, [facility], Partial fill upon patient [...] 6 Refills, Maintenance, 03/03/21 9:45:00 EDT, Tablet, [facility], Partial fill upon patient request if the prescription is for a schedule II opioid drug., 160, cm, 03/03/21 9:18:00 EDT, He... Start Date: 03/03/21 Status: Orderedsevelamer carbonate 800 mg oral tablet 1 tablet = 800 mg, By Mouth, 3 times a day, # 90 tablet, 0 Refills, Maintenance, 01/04/21 15:34:00 EDT, Tablet, [facility], Partial fill upon patient [...]
--- OUTSIDE RECORDS SUMMARY | 2022-09-25 05:38 | XMS_ITS | Continuity of Care Document ---
:1950 Author Organization [facility] Address [address] [place] [address]- Care Team Providers Name Role Phone Kusum Bradley MD Primary Care Physician Encounter [facility] ACCT R [id number] Date(s): 01/04/21 - 02/04/[address] [address]- Attending Physician: Matthias Reid Admitting Physician: Matthias Reid Referring Physician: Matthias Reid Allergies, Adverse Reactions, Alerts Substance Reaction Severity [...] tetanus/diphtheria/pertussis, acel(Tdap) 09/13/12 Given 1Result Comment: [05/31/2017] [id number] Note: 1-13 [facility] [id number] Comment: [12/31/2014 Uncharted] PUT IN TWICE Medications [...] 0 Refills, Maintenance, 01/04/21 15:38:00EDT, Tablet, [facility], Partial fill upon patient request if the prescription is for a schedule II opioid drug., 160, cm, 01/04/21 12:4... Start Date: 01/04/21 Status: Orderedgabapentin 100 mg oral capsule 100 mg, 1, capsule, By Mouth, 2 times a day, # 180 capsule, Refills 3, Tot. Refills 3, Maintenance, 01/04/21 15:38:00 EDT, Route to Pharmacy Electronically, [facility], 160, cm, 01/04/21 12:45:00 EDT, Height, 60.6, kg, 12/17/20 21:40:00... Start Date: 01/04/21 Stop Date: 12/30/21 Status: Orderedlisinopril 5 mg oral tablet 5 mg, 1, tablet, By Mouth, Daily, # 30 tablet, Refills 6, Tot. Refills 6, Maintenance, 02/03/21 8:27:00 EDT, Route to Pharmacy Electronically, [facility], Partial fill upon patient request [...] 15:37:00 EDT, Route to Pharmacy Electronically, [facility], Partial fill upon patient request if the prescription is for a schedule II opioi... Start Date: 01/04/21 Status: Orderedsertraline 50 mg oral tablet 1 tablet = 50 mg, By Mouth, Daily, # 30 tablet, 0 Refills, Maintenance, 01/04/21 15:34:00 EDT, Tablet, [facility], Partial fill upon patient request if the prescription is for a schedule II opioid drug., 160, cm, 01/04/21 12:45:00 EDT, H... Start Date: 01/04/21 Stop Date: 02/03/21 Status: Orderedsevelamer carbonate 800 mg oral tablet 1 tablet = 800 mg, By Mouth, 3 times a day, # 90 tablet, 0 Refills, Maintenance, 01/04/21 15:34:00 EDT, Tablet, [facility], Partial fill upon patient request [...]
--- OUTSIDE RECORDS SUMMARY | 2022-09-25 05:38 | XMS_ITS | Continuity of Care Document ---
:[address] [facility] Address [address] [place] [address]- Care Team Providers Name Role Phone Silke Pal MD Primary Care Physician Encounter [facility] Date(s): 07/18/22 - 08/17/[facility] [address] [place], [place] [address] Attending Physician: Aniceto Multani Admitting Physician: AdmAniceto beaulieu Referring Physician: Admtr, Aniceto Allergies, Adverse Reactions, Alerts Substance Reaction Severity [...] tetanus/diphtheria/pertussis, acel(Tdap) 09/13/12 Given 1Result Comment: [05/31/2017] [id number] Note: 1-13 [facility] [id number] Comment: [12/31/2014 Uncharted] PUT IN TWICE Medications [...] Confirmed Active (CKD) stage G3b/A3 CAD in [place] artery Confirmed Active Depression, major Confirmed Active [...] Care Team PersonnelName: Quan Virgen RN Position: [facility] RN Member Role: Primary Care Nurse Name: Susana Chaney LPN Position: [facility] RN Member Role: Primary Care Nurse Name: Betty Cabrera NP Position: [facility] Associate Professional Member Role: Primary Care Nurse Address: Address: [address] [place] [address]- Name: Uma Ndiaye Position: [facility] Outreach Member Role: Lifetime Consulting Physician Name: Kirk Morse DO Position: [facility] Renal MD Member Role: Lifetime Consulting Physician Address: Address: [address] [place] [address] [address] [facility] [place], [place] [address] Name: Uma Valdovinos Position: [facility] Outreach Member Role: Lifetime Consulting Physician Name: Janelle Arora RN Position: [facility] RN Member Role: Primary Care Nurse Name: Prasanna Belle III, RN Position: [facility] RN Member Role: Primary Care Nurse Name: Suellen Lazcano RN Position: [facility] ED RN W/OE and Tasks Member Role: Primary Care Nurse Name: Rubia Pardo LPN Position: [facility] RN Member Role: Primary Care Nurse Name: Florencio Ferreira MD Position: [facility] Renal MD Member Role: Lifetime Consulting Physician Address: Address: [address] [place] [address] [address] [facility] [place] [place] [address]- [place] Name: Priscila López RN Position: S RN Member Role: Primary Care Nurse Name: Silke Pal MD Position: [facility] Primary Care Physician Member Role: PCP Address: Address: [address] [place] [address] Adult [facility] [place] [address]- Name: Bonnie Ann RN Position: S RN Member Role: Primary Care Nurse Name: eFlipa Burr RN Position: [facility] RN Member Role: Primary Care Nurse Name: Jennifer Alex RN Position: S RN Member Role: Primary Care Nurse Name: Saskia Fontana RN Position: S RN Member Role: Primary Care Nurse Name: Beatris Gaytan RN Position: [facility] RN Member Role: Primary Care Nurse Care Team Related PersonsName: AUDREY HEARN Address: home [address] [place] [address] Name: ABIMAEL HEARN Name: YUSUF HEARN Address: home [address] [place] [address]
--- OUTSIDE RECORDS SUMMARY | 2022-09-25 05:38 | XMS_ITS | Continuity of Care Document ---
:1950 Author Organization [facility] Address [address] [place] [address]- Care Team Providers Name Role Phone Silke Pal MD Primary Care Physician Encounter [facility] Date(s): 05/03/22 - 05/03/[address] [address] Discharge Disposition: A-D/C Home [...] tetanus/diphtheria/pertussis, acel(Tdap) 09/13/12 Given 1Result Comment: [05/31/2017] [id number] Note: 1-13 [facility] [id number] Comment: [12/31/2014 Uncharted] PUT IN TWICE Medications [...] 11/01/21 10:43:00 EDT, Route to Pharmacy Electronically, [facility], Partial fill upon patient request [...] tablet, Refills 0, Tot. Refills 0, Acute 05/06/22 14:45:00 EDT, as needed for pain, 05/03/22 14:45:00 EDT, Print Requisition, Partial fill upon patient request if the prescription is for... Start Date: 05/03/22 Stop Date: 05/06/22 Status: Orderedsertraline 100 mg oral tablet 1 tablet, By Mouth, Daily, # 90 tablet, 4 Refills, Maintenance, 04/21/22 10:23:00 EDT, [facility], 162.56, cm, 02/03/22 10:08:00 EDT, Height, [...] oldest 1 2 3 [Reference Range]: Weight 57.2 kg (05/03/22 10:47 AM) Oxygen Saturation [94-100 %] 97 % 95 % 100 % (05/03/22 2:45 PM) (05/03/22 2:30 PM) (05/03/22 2:1 5 PM) Pulse Rate [55-90 bpm] 59 bpm (05/03/22 10:47 AM) Blood Pressure [90-138/55-84 174/86 mm Hg 160/77 mm Hg 139 /77 mm Hg mm Hg] *H* *H* *H* (05/03/22 2:45 PM) (05/03/22 2:30 PM) (05/03/22 2:1 5 PM) Respiratory Rate [16-30 32 br/min 19 br/min 31 br/mi n br/min] *H* (05/03/22 2:30 PM) *H* (05/03/22 2:45 PM) (05/03/22 2:15 PM) Temperature [96.8-100.4 97.7 DegF 97.8 DegF 97.6 Deg F DegF] (05/03/22 2:45 PM) (05/03/22 2:15 PM) (05/03/22 10: 47 AM) Liters per Minute 2 L/min 2 L/min 2 L/min (05/03/22 12:40 PM) (05/03/22 12:35 PM) (05/03/22 1 2:30 PM) Mode of Delivery (Oxygen) Room air Room air Room a ir (05/03/22 2:45 PM) (05/03/22 2:30 PM) (05/03/22 2:1 5 PM) Blood pressure sites Arm, right Arm, right Arm, right (05/03/22 2:15 PM) (05/03/22 12:40 PM) (05/03/22 12 :35 PM) Temperature Route Temporal Temporal Temporal (05/03/22 2:45 PM) (05/03/22 2:15 PM) (05/03/22 10: 47 AM) Dry Weight 57.2 kg (05/03/22 10:47 AM) Weight Obtained Via Standing scale (05/03/22 10:47 AM) Dry Weight Obtained Via Standing scale (05/03/22 10:47 AM) Social History Social History Type Response Smoking Status Former smoker, quit more padmini n 30 days ago; Never entered on: 10/28/21 Sex Care Team PersonnelName: Neville Pal MD Address: [address] [place] [address] [facility] [address]
--- OUTSIDE RECORDS SUMMARY | 2022-09-25 05:38 | XMS_ITS | Continuity of Care Document ---
:1950 Author Organization [facility] Address [address] [place] [address]- Care Team Providers Name Role Phone Silke Pal MD Primary Care Physician Encounter [facility] Date(s): 02/12/22 - 06/12/22 [facility] [address] [place] [address]- Attending Physician: Raissa Dubose MD Admitting Physician: Raissa Dubose MD Allergies, Adverse Reactions, [...] tetanus/diphtheria/pertussis, acel(Tdap) 09/13/12 Given 1Result Comment: [05/31/2017] [id number] Note: 1-13 [facility] [id number] Comment: [12/31/2014 Uncharted] PUT IN TWICE Medications [...] 05/17/22 13:16:00 EDT, Route to Pharmacy Electronically, [facility], Partial fill upon patient request if the p... Start Date: 05/17/22 Stop Date: 06/16/22 Status: Orderedgabapentin 100 mg oral capsule 200 mg, 2, capsule, By Mouth, Daily at bedtime, # 60 capsule, Refills 0, Tot. Refills 0, Maintenance, 05/17/22 13:17:00 EDT, Route to Pharmacy Electronically, [facility], Partial fill upon patient request if the prescription is for a ramakrishna... Start Date: 05/17/22 Stop Date: 06/16/22 Status: OrderedLisinopril = 20 mg, By Mouth, 2 times a day, 0 Refills, Maintenance, 09/20/21 17:08:00 EST, Partial fill upon patient request if the prescription is for a schedule II opioid drug. Start Date: 09/20/21 Status: OrderedRobitussin DM Liquid 10 mL, By Mouth, Every 4 hours, PRN Cough, 0 Refills, Maintenance, 05/26/22 13:28:00 EDT, Syrup, Partial fill upon patient request if the prescription is for a schedule II opioid drug. 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
--- OUTSIDE RECORDS SUMMARY | 2022-09-25 05:38 | XMS_ITS | Continuity of Care Document ---
:1950 Author Organization [facility] Address [address] [place] [address]- Care Team Providers Name Role Phone Silke Pal MD Primary Care Physician Encounter [facility] Date(s): 06/19/21 - 10/17/21 [facility] [address] [place] [address]- Attending Physician: Raissa Dubose MD Admitting Physician: Raissa Dubose MD Referring Physician: Silke [...] tetanus/diphtheria/pertussis, acel(Tdap) 09/13/12 Given 1Result Comment: [05/31/2017] [id number] Note: 1-13 [facility] [id number] Comment: [12/31/2014 Uncharted] PUT IN TWICE Medications [...] tablet, 0 Refills, Maintenance, 01/04/21 15:38:00EDT, Tablet, [facility], Partial fill upon patient [...] A DAY, # 56 tablet, 10 Refills, [facility], 162, cm, 07/06/21 9:31:00 EST, [...] 01/04/21 15:38:00 EDT, Route to Pharmacy Electronically, [facility], 160, cm, 01/04/21 12:45:00 [...] 6 Refills, Maintenance, 03/03/21 9:45:00 EDT, Tablet, [facility], Partial fill upon patient [...] 0 Refills, Maintenance, 01/04/21 15:34:00 EDT, Tablet, [facility], Partial fill upon patient [...] oldest [Reference Range]: 1 Height 162 cm (09/16/21 9:13 AM) Social History Social History Type Response Smoking Status Former smoker entered on: 03/30/18 Sex
--- OUTSIDE RECORDS SUMMARY | 2022-09-25 05:38 | XMS_ITS | Continuity of Care Document ---
:1950 Author Organization [facility] Address Unavailable , Care Team Providers Name Role Phone Not on Staff, PCP Primary Care Physician Unavailable Encounter [facility] Date(s): 11/25/21 - 12/02/21 [facility] Encounter Diagnosis Rectal prolapse (Discharge Diagnosis) - 11/25/21 Attending Physician: Jethro Hampton MD Referring Physician: [...] tetanus/diphtheria/pertussis, acel(Tdap) 09/13/12 Given 1Result Comment: [05/31/2017] [id number] Note: 1-13 [facility] [id number] Comment: [12/31/2014 Uncharted] PUT IN TWICE Medications [...] 11/01/21 10:43:00 EDT, Route to Pharmacy Electronically, [facility], Partial fill upon [...] 1978 Diagnosis Diagnosis Type Effective Dates Health Status Clinical In formant Service Rectal prolapse Discharge 11/25/21 Diagnosis Vital Signs Most recent to oldest [Reference Range]: 1 Height 160 cm (11/25/21 3:18 PM) Weight 59.7 kg (11/25/21 3:18 PM) Pulse Rate [55-90 bpm] 71 bpm (11/25/21 3:18 PM) Body Mass Index [18.5-24.99] 23.32 (11/25/21 3:18 PM) Blood Pressure [90-138/55-84 mm Hg] 173/77 mm Hg *H* (11/25/21 3:18 PM) Temperature [96.8-100.4 DegF] 97.4 DegF (11/25/21 3:18 PM) Blood pressure sites Arm, right (11/25/21 3:18 PM) Temperature Route Temporal (11/25/21 3:18 PM) Social History Social History Type Response Smoking Status Former smoker, quit more padmini n 30 days ago; Never entered on: 10/28/21 Sex
--- OUTSIDE RECORDS SUMMARY | 2022-09-25 05:38 | XMS_ITS | Continuity of Care Document ---
:1950 Author Organization [facility] Address [address] [place] [address]- Care Team Providers Name Role Phone Silke Pal MD Primary Care Physician Encounter [facility] Date(s): 07/27/21 - 08/26/21 [facility] [address] [place] [address]- Allergies, Adverse Reactions, Alerts Substance Reaction Severity [...] tetanus/diphtheria/pertussis, acel(Tdap) 09/13/12 Given 1Result Comment: [05/31/2017] [id number] Note: 1-13 [facility] [id number] Comment: [12/31/2014 Uncharted] PUT IN TWICE Medications [...] 01/17/21 14:19:00 EDT, Route to Pharmacy Electronically, [facility] [...] tablet, 0 Refills, Maintenance, 01/04/21 15:38:00EDT, Tablet, [facility], Partial fill upon patient request if the prescription is for a schedule II opioid drug., 160, cm, 01/04/21 12:4... Start Date: 01/04/21 Status: OrderedEliquis 2.5 mg oral tablet 1 tablet = 2.5 mg, By Mouth, 2 times a day, discontinue coumadin, # 60 tablet, 5 Refills, Maintenance, 02/08/21 8:42:00 EDT, Tablet, [facility], 160, cm, 02/03/21 7:53:00 [...] 01/04/21 15:38:00 EDT, Route to Pharmacy Electronically, [facility], 160, cm, 01/04/21 12:45:00 [...] 01/17/21 14:20:00 EDT, Route to Pharmacy Electronically, [facility], Partial fill upon patient request if the prescription is for a schedule II opio... Start Date: 01/17/21 Status: Orderedmetoprolol 100 mg oral tablet, extended release 100 mg, 1, tablet, By Mouth, Daily, # 90 tablet, Refills 3, Tot. Refills 3, Maintenance, 07/07/21 10:32:00 EST, Route to Pharmacy Electronically, [facility] [...] 6 Refills, Maintenance, 03/03/21 9:45:00 EDT, Tablet, [facility] [...] 0 Refills, Maintenance, 01/04/21 15:34:00 EDT, Tablet, [facility] [...] 07/29/21 9:40:00 EST, Route to Pharmacy Electronically, [facility], 162, [...]
--- OUTSIDE RECORDS SUMMARY | 2022-09-25 05:38 | XMS_ITS | Continuity of Care Document ---
:1950 Author Organization [facility] Address [address] [place] [address]- Care Team Providers Name Role Phone Silke Pal MD Primary Care Physician [facility]counter [facility] Date(s): 07/06/21 - 08/12/21 [facility] [address] [place], [place] [address] Attending Physician: Silke Pal MD Allergies, Adverse [...] tetanus/diphtheria/pertussis, acel(Tdap) 09/13/12 Given 1Result Comment: [05/31/2017] [id number] Note: 1-13 [facility] [id number] Comment: [12/31/2014 Uncharted] PUT IN TWICE Medications [...] 01/17/21 14:19:00 EDT, Route to Pharmacy Electronically, [facility], Partial fill upon patient request [...] tablet, 0 Refills, Maintenance, 01/04/21 15:38:00EDT, Tablet, [facility], Partial fill upon patient request if the prescription is for a schedule II opioid drug., 160, cm, 01/04/21 12:4... Start Date: 01/04/21 Status: OrderedEliquis 2.5 mg oral tablet 1 tablet = 2.5 mg, By Mouth, 2 times a day, discontinue coumadin, # 60 tablet, 5 Refills, Maintenance, 02/08/21 8:42:00 EDT, Tablet, [facility], 160, cm, 02/03/21 7:53:00 [...] 01/04/21 15:38:00 EDT, Route to Pharmacy Electronically, [facility], 160, cm, 01/04/21 12:45:00 EDT, [...] 01/17/21 14:20:00 EDT, Route to Pharmacy Electronically, [facility], Partial fill upon patient request if the prescription is for a schedule II opio... Start Date: 01/17/21 Status: Orderedmetoprolol 100 mg oral tablet, extended release 100 mg, 1, tablet, By Mouth, Daily, # 90 tablet, Refills 3, Tot. Refills 3, Maintenance, 07/07/21 10:32:00 EST, Route to Pharmacy Electronically, [facility], Partial fill upon patient [...] 6 Refills, Maintenance, 03/03/21 9:45:00 EDT, Tablet, [facility], Partial fill upon patient [...] 0 Refills, Maintenance, 01/04/21 15:34:00 EDT, Tablet, [facility], Partial fill upon patient [...] 07/29/21 9:40:00 EST, Route to Pharmacy Electronically, [facility], 162, cm, 07/06/21 9:31:00 [...]
--- OUTSIDE RECORDS SUMMARY | 2022-09-25 05:39 | XMS_ITS | Continuity of Care Document ---
:1950 Author Organization [facility] Address [address] [place] [address]- Care Team Providers Name Role Phone Kusum Bradley MD Primary Care Physician Encounter [facility] Date(s): 05/04/20 - 06/07/[address] [address]- [facility] Attending Physician: Jethro Hampton MD Admitting Physician: [...] tetanus/diphtheria/pertussis, acel(Tdap) 09/13/12 Given 1Result Comment: [05/31/2017] [id number] Note: 1-13 [facility] [id number] Comment: [12/31/2014 Uncharted] PUT IN TWICE Medications amLODIPine 10 mg oral tablet 10 mg, 1, tablet, By Mouth, Daily, # 30 tablet, Refills 0, Maintenance, 04/13/20 9:57:00 EDT Start Date: 04/13/20 Status: Orderedcarvedilol 25 mg oral tablet 25 mg, 1, tablet, By Mouth, 2 times a day, # 180 tablet, Refills 3, Tot. Refills 3, Maintenance, 11/14/18 9:54:14 EDT, Route to Pharmacy Electronically, [id number], [facility] Start Date: 11/14/18 [...] 12/17/18 14:22:03 EDT, Route to Pharmacy Electronically, [id number], [facility] Start Date: [...]
--- OUTSIDE RECORDS SUMMARY | 2022-09-25 05:39 | XMS_ITS | Continuity of Care Document ---
:1950 Author Organization [facility] Address Unavailable , Care Team Providers Name Role Phone Silke Pal MD Primary Care Physician [facility]counter [facility] Date(s): 08/12/21 - 09/11/21 [facility] Attending Physician: Aniceto Multani Admitting Physician: Aniceto Multani Referring Physician: AdmtrAniceto Allergies, Adverse Reactions, Alerts [...] tetanus/diphtheria/pertussis, acel(Tdap) 09/13/12 Given 1Result Comment: [05/31/2017] [id number] Note: 1-13 [facility] [id number] Comment: [12/31/2014 Uncharted] PUT IN TWICE Medications [...] 01/17/21 14:19:00 EDT, Route to Pharmacy Electronically, [facility], Partial fill upon patient request [...] Maintenance, 01/04/21 15:38:00EDT, Tablet, [facility], Partial fill upon patient request if the prescription is for a schedule II opioid drug., 160, cm, 01/04/21 12:4... Start Date: 01/04/21 Status: OrderedEliquis 2.5 mg oral tablet See Instructions, TAKE 1 TABLET BY MOUTH TWO TIMES A DAY, # 56 tablet, 10 Refills, [facility], 162, cm, 07/06/21 9:31:00 [...] 01/17/21 14:20:00 EDT, Route to Pharmacy Electronically, [facility], Partial fill upon patient request if the prescription is for a schedule II opio... Start Date: 01/17/21 Status: Orderedmetoprolol 100 mg oral tablet, extended release 100 mg, 1, tablet, By Mouth, Daily, # 90 tablet, Refills 3, Tot. Refills 3, Maintenance, 07/07/21 10:32:00 EST, Route to Pharmacy Electronically, [facility], Partial fill upon patient request [...] 6 Refills, Maintenance, 03/03/21 9:45:00 EDT, Tablet, [facility], Partial fill upon patient request [...] 0 Refills, Maintenance, 01/04/21 15:34:00 EDT, Tablet, [facility], Partial [...] 07/29/21 9:40:00 EST, Route to Pharmacy Electronically, [facility], 162, cm, 07/06/21 9:31:00 EST, Height, 57, kg, 03/09/21 16:10:00 EDT, Start Date: 07/29/21 Stop Date: 01/25/22 Status: [...]
--- OUTSIDE RECORDS SUMMARY | 2022-09-25 05:39 | XMS_ITS | Continuity of Care Document ---
:1950 Author Organization [facility] Address [address] [place] [address]- Care Team Providers Name Role Phone Janelle Kwon Primary Care Physician [phone] Encounter [facility] ACCT R [id number] Date(s): 04/19/22 - 05/29/22 [facility] [address] [place] [address]- Attending Physician: Raissa Dubose MD Admitting Physician: [...] tetanus/diphtheria/pertussis, acel(Tdap) 09/13/12 Given 1Result Comment: [05/31/2017] [id number] Note: 1-13 [facility] [id number] Comment: [12/31/2014 Uncharted] PUT IN TWICE Medications [...] 05/17/22 13:16:00 EDT, Route to Pharmacy Electronically, [facility], Partial fill upon patient request if the p... Start Date: 05/17/22 Stop Date: 06/16/22 Status: Orderedgabapentin 100 mg oral capsule 200 mg, 2, capsule, By Mouth, Daily at bedtime, # 60 capsule, Refills 0, Tot. Refills 0, Maintenance, 05/17/22 13:17:00 EDT, Route to Pharmacy Electronically, [facility], Partial fill upon patient [...] 13:17:00 EDT, 05/17/22 13:17:00 EDT, REC Powder, [facility], Partial fill upon patient [...] tablet, 4 Refills, Maintenance, 04/21/22 10:23:00 EDT, [facility], 162.56, cm, 02/03/22 10:08:00 EDT, [...] team information PersonnelName: Janelle Kwon Address: Address: [address] [place], [place] [address]
--- OUTSIDE RECORDS SUMMARY | 2022-09-25 05:39 | XMS_ITS | Continuity of Care Document ---
:1950 Author Organization [facility] Address [address] [place] [address]- Care Team Providers Name Role Phone Kusum Bradley MD Primary Care Physician Encounter [facility] Date(s): 01/19/21 - 01/26/21 [facility] [address] [place] [id number] Attending Physician: Mireya Brown MD Referring Physician: Kusum Bradley MD Allergies, Adverse Reactions, Alerts Substance Reaction [...] tetanus/diphtheria/pertussis, acel(Tdap) 09/13/12 Given 1Result Comment: [05/31/2017] [id number] Note: 1-13 [facility] [id number] Comment: [12/31/2014 Uncharted] PUT IN TWICE Medications [...] 01/04/21 15:36:00 EDT, Route to Pharmacy Electronically, [facility], Partial fill upon patient request if the prescription is for a schedule... Start Date: 01/04/21 Status: Orderedapixaban 2.5 mg oral tablet 1 tablet = 2.5 mg, By Mouth, 2 times a day, # 60 tablet, 1 Refills, Maintenance, 01/25/21 17:47:00 EDT, Tablet, [facility], Partial fill upon patient request if the prescription is fora schedule II opioid drug., 160, cm, 01/19/21 11:... Start Date: 01/25/21 Status: Orderedaspirin 81 mg oral delayed release [...] 0 Refills, Maintenance, 01/04/21 15:38:00EDT, Tablet, [facility], Partial fill upon patient request if the prescription is for a schedule II opioid drug., 160, cm, 01/04/21 12:4... Start Date: 01/04/21 Status: Orderedgabapentin 100 mg oral capsule 100 mg, 1, capsule, By Mouth, 2 times a day, # 180 capsule, Refills 3, Tot. Refills 3, Maintenance, 01/04/21 15:38:00 EDT, Route to Pharmacy Electronically, [facility], 160, cm, 01/04/21 12:45:00 EDT, Height, 60.6, kg, 12/17/20 21:40:00... Start Date: 01/04/21 Stop Date: 12/30/21 Status: Orderedmetoprolol 50 mg oral tablet, extended release 50 mg, 1, tablet, By Mouth, Daily, # 30 tablet, Refills 0, Tot. Refills 0, Maintenance, 01/04/21 15:37:00 EDT, Route to Pharmacy Electronically, [facility], Partial fill upon patient request if the prescription is for a schedule II opioi... Start Date: 01/04/21 Status: Orderedsertraline 50 mg oral tablet 1 tablet = 50 mg, By Mouth, Daily, # 30 tablet, 0 Refills, Maintenance, 01/04/21 15:34:00 EDT, Tablet, [facility], Partial fill upon patient request if the prescription is for a schedule II opioid drug., 160, cm, 01/04/21 12:45:00 EDT, H... Start Date: 01/04/21 Stop Date: 02/03/21 Status: Orderedsevelamer carbonate 800 mg oral tablet 1 tablet = 800 mg, By Mouth, 3 times a day, # 90 tablet, 0 Refills, Maintenance, 01/04/21 15:34:00 EDT, Tablet, [facility], Partial fill upon patient request if the prescription is for a schedule II opioid drug., 160, cm, 01/04/21 12:45:... Start Date: 01/04/21 Status: Orderedsodium bicarbonate 650 mg oral tablet 1 tablet = 650 mg, By Mouth, 3 times a day, for 30 days, # 90 tablet, 0 Refills, Acute 02/03/21 15:34:00 EDT, 01/04/21 15:34:00 EDT, Tablet, [facility] 3, Partial fill upon patient request if the prescription is for a schedule II opioid drEsdras. Start Date: 01/04/21 Stop Date: 02/03/21 Status: [...] oldest [Reference Range]: 1 Height 160 cm (01/19/21 11:16 AM) Weight 54.5 kg (01/19/21 11:16 AM) Oxygen Saturation [94-100 %] 95 % (01/19/21 11:16 AM) Pulse Rate [55-90 bpm] 72 bpm (01/19/21 11:16 AM) Body Mass Index [18.5-24.99] 21.29 (01/19/21 11:16 AM) Blood Pressure [90-138/55-84 mm Hg] 140/80 mm Hg *H* (01/19/21 11:16 AM) Respiratory Rate [16-30 br/min] 16 br/min (01/19/21 11:16 AM) Temperature [96.8-100.4 DegF] 98.6 DegF (01/19/21 11:16 AM) Mode of Delivery (Oxygen) Room air (01/19/21 11:16 AM) Blood pressure sites Arm, left (01/19/21 11:16 AM) Weight Obtained Via Patient/family stated (01/19/21 11:16 AM) Social History Social History Type Response Smoking Status Former smoker entered on: 03/30/18 Sex
--- OUTSIDE RECORDS SUMMARY | 2022-09-25 05:39 | XMS_ITS | Continuity of Care Document ---
:1950 Author Organization [facility] Address [address] [place] [address]- Care Team Providers Name Role Phone Kusum Bradley MD Primary Care Physician Encounter [facility] Date(s): 09/26/19 - 09/26/[address] [address]- [facility] Attending Physician: Bassem Walters MD Allergies, Adverse [...] tetanus/diphtheria/pertussis, acel(Tdap) 09/13/12 Given 1Result Comment: [05/31/2017] [id number] Note: 1-13 [facility] [id number] Comment: [12/31/2014 Uncharted] PUT IN TWICE Medications carvedilol 25 mg oral tablet 25 mg, 1, tablet, By Mouth, 2 times a day, # 180 tablet, Refills 3, Tot. Refills 3, Maintenance, 11/14/18 9:54:14 EDT, Route to Pharmacy Electronically, [id number], [facility] Start Date: 11/14/18 Stop Date: 11/09/19 Status: Orderedgabapentin 100 mg oral capsule 100 mg, 1, capsule, By Mouth, 2 times a day, # 180 capsule, Refills 3, Tot. Refills 3, Maintenance, 12/17/18 14:22:03 EDT, Route to Pharmacy Electronically, [id number], [facility] Start Date: [...]
--- OUTSIDE RECORDS SUMMARY | 2022-09-25 05:39 | XMS_ITS | Continuity of Care Document ---
:1950 Author Organization [facility] Address [address] [place] [address]- Care Team Providers Name Role Phone Silke Pal MD Primary Care Physician Encounter [facility] Date(s): 10/25/21 - 11/24/21 [facility] [address] [place], [place] [address] Attending Physician: Aniceto Multani Admitting Physician: AdmtrAniceto [...] tetanus/diphtheria/pertussis, acel(Tdap) 09/13/12 Given 1Result Comment: [05/31/2017] [id number] Note: 1-13 [facility] [id number] Comment: [12/31/2014 Uncharted] PUT IN TWICE Medications [...] 11/01/21 10:43:00 EDT, Route to Pharmacy Electronically, [facility], Partial fill upon [...]
--- OUTSIDE RECORDS SUMMARY | 2022-09-25 05:39 | XMS_ITS | Continuity of Care Document ---
:1950 Author Organization [facility] Address [address] [place] [address]- Care Team Providers Name Role Phone Silke Pal MD Primary Care Physician Encounter [facility] Date(s): 09/27/21 - 10/27/21 [facility] [address] [place], [place] [address] Allergies, Adverse Reactions, Alerts Substance [...] tetanus/diphtheria/pertussis, acel(Tdap) 09/13/12 Given 1Result Comment: [05/31/2017] [id number] Note: 1-13 [facility] [id number] Comment: [12/31/2014 Uncharted] PUT IN TWICE Medications [...] tablet, 0 Refills, Maintenance, 01/04/21 15:38:00EDT, Tablet, [facility], Partial fill [...] A DAY, # 56 tablet, 10 Refills, [facility], 162, cm, 07/06/21 9:31:00 EST, Height, [...] 01/04/21 15:38:00 EDT, Route to Pharmacy Electronically, [facility], 160, cm, 01/04/21 12:45:00 [...] 6 Refills, Maintenance, 03/03/21 9:45:00 EDT, Tablet, [facility], Partial fill [...] 0 Refills, Maintenance, 01/04/21 15:34:00 EDT, Tablet, [facility], Partial fill [...]
--- OUTSIDE RECORDS SUMMARY | 2022-09-25 05:39 | XMS_ITS | Continuity of Care Document ---
:1950 Author Organization [facility] Address Unavailable , Care Team Providers Name Role Phone Silke Pal MD Primary Care Physician Encounter [facility] Date(s): 05/20/21 - 06/19/21 [facility] Allergies, Adverse Reactions, Alerts Substance Reaction [...] tetanus/diphtheria/pertussis, acel(Tdap) 09/13/12 Given 1Result Comment: [05/31/2017] [id number] Note: 1-13 [facility] [id number] Comment: [12/31/2014 Uncharted] PUT IN TWICE Medications [...] 01/17/21 14:19:00 EDT, Route to Pharmacy Electronically, [facility], Partial fill upon [...] tablet, 0 Refills, Maintenance, 01/04/21 15:38:00EDT, Tablet, [facility], Partial fill upon patient request if the prescription is for a schedule II opioid drug., 160, cm, 01/04/21 12:4... Start Date: 01/04/21 Status: OrderedEliquis 2.5 mg oral tablet 1 tablet = 2.5 mg, By Mouth, 2 times a day, discontinue coumadin, # 60 tablet, 5 Refills, Maintenance, 02/08/21 8:42:00 EDT, Tablet, [facility], 160, cm, 02/03/21 [...] 01/04/21 15:38:00 EDT, Route to Pharmacy Electronically, [facility], 160, cm, 01/04/21 [...] 01/17/21 14:20:00 EDT, Route to Pharmacy Electronically, [facility], Partial fill upon patient request [...] 6 Refills, Maintenance, 03/03/21 9:45:00 EDT, Tablet[facility], [facility] [...] 0 Refills, Maintenance, 01/04/21 15:34:00 EDT, Tablet, [facility], Partial fill upon [...]
[2022-09-25 05:41] VITALS: BP 189/84; PULSE 68; RESP 13; TEMP 36.6; O2SAT 93
[2022-09-25 05:41] LABS: Influenza A PCR NEGATIVE (Negative); Influenza B PCR NEGATIVE (Negative); Resp Syncy Virus RNA Qual PCR NEGATIVE (Negative); SARS COV2 PCR INHOUSE NEGATIVE (Negative)
--- NOTE | 2022-09-25 07:17 | ED.URI ---
HPI - URI/Sore Throat General Chief Complaint: Upper Respiratory Symptoms Stated Complaint: DIFF BREATHING [id number] Time Seen by Provider: 09/25/22 06:57 Source: patient Mode of arrival: EMS Limitations: no limitations History of Present Illness HPI Narrative: 72-year-old female who presents emergency department for evaluation of shortness of breath x2 weeks. She states the shortness of breath is gotten progressively worse. She states she feels short of breath at rest and with exertion. Patient states that she has had a cough which is been productive of thick ?rubber cement ?like sputum which is green with occasional streaks of blood. She also complains of rhinorrhea, occasional chills, and chest pain with coughing. She has had nausea and vomiting. Complains of myalgias and arthralgias as well. The patient has end-stage renal disease and is dialyzed on Monday, and Saturdays. Her dialysis doctor started on amoxicillin 1000 mg twice a day for 10 days and she has been on this medication for 5 days with no improvement of her symptoms. Related Data Home Medications Medication Instructions Recorded Confirmed amlodipine 10 mg tablet 10 mg PO DAILY 08/10/20 12/13/20 calcitriol 0.5 mcg capsule 0.5 mcg PO DAILY 12/09/20 12/13/20 carvedilol 25 mg tablet 25 mg PO BID 12/09/20 12/13/20 Previous Rx's Medication Instructions Recorded acetaminophen 325 mg tablet 650 mg PO Q6H PRN Pain, Mild (Pain 12/17/20 Scale 1-3) #30 tabs aspirin 81 mg tablet,delayed 81 mg PO DAILY #3 tabs 12/17/20 release atorvastatin 80 mg tablet 80 mg PO BEDTIME #30 tabs 12/17/20 heparin (porcine) 25,000 unit/250 25,000 unit (250 mL) continuous IV 12/17/20 mL in 0.45 % sodium chloride IV infusion .Q0M #250 mL soln heparin (porcine) 5,000 unit/mL 2,400 unit (0.48 mL) IVPUSH BOLUS 12/17/20 injection solution PRN 40 Unit/Kg - Heparin Protocol #1 mL sevelamer HCl 800 mg tablet 800 mg PO TIDWM #60 tabs 12/17/20 (Renagel) sodium bicarbonate 650 mg tablet 650 mg PO TID #60 tabs 12/17/20 azithromycin 250 mg tablet See Rx Instructions PO .COMPLEX #6 09/25/22 (Zithromax Z-Zeb) tabs Allergies Allergy/AdvReac Type Severity Reaction Status Date / Time atenolol [ATENOLOL] Allergy Unknown DIFF Verified 12/09/20 11:34 BREATHING, heart races. amphetamine [Adderall] AdvReac Unknown shortness Verified 12/09/20 11:34 of breath dextroamphetamine [Adderall] AdvReac Unknown shortness Verified 12/09/20 11:34 of breath Review of Systems Review of Systems: Yes all other systems are reviewed and are negative [facility] Past Medical History [facility] Narrative: Social history: She denies tobacco, alcohol and drug use. Medical History Anemia Asthmatic bronchitis CKD (chronic kidney disease), stage IV Depression DVT (deep venous thrombosis) GERD (gastroesophageal reflux disease) History of ectopic Hypertension Surgical History H/O colonoscopy History of carpal tunnel release of both wrists History of left knee replacement History of rectal surgery Status post total replacement of right shoulder Family History Family History Father No problems noted. Mother No problems noted. Social History Social History Household Members: Spouse Housing: House Do you presently have visiting nurse or other home services: No Alcohol intake: unknown Cigarettes Per Day: 1 Advance Directives: No service: No Current occupational status: other Current occupation: young,right handed Physical Exam Vital Signs: Vital Signs: Last Vital Signs Temp 98.3 F 09/25/22 08:02 Pulse 75 09/25/22 07:25 Resp 16 09/25/22 07:25 BP 130/85 09/25/22 07:25 Pulse Ox 93 09/25/22 07:25 O2 Del Method 09/25/22 07:25 BMI result Body Mass Index 21.9 Const: General: cooperative and no acute distress Orientation/consciousness: oriented to person and oriented to place Limitations: no limitations HEENT: Head: Yes normal to inspection, Yes normocephalic and Yes atraumatic Ears: external ears normal General nose exam: Normal external nose present Face and sinus: Yes normal facial exam Mouth: Normal oral and palatal mucosa present Throat: Yes posterior oropharynx normal Eyes: General: appearance normal, both eyes and all related structures Pupils: Equal, round and reactive pupils present Neck: Neck: Yes normal visual inspection, Yes no lymphadenopathy, Yes trachea midline and Yes supple Chest: Other: Patient has a dialysis catheter in her right chest Chest palpation & inspection: normal palpation of entire chest wall Resp: Effort & Inspection: normal respiratory effort and able to speak in complete sentences Auscultation: clear to auscultation bilaterally Cardio: Rate: regular rate Rhythm: regular rhythm Heart sounds: S1 normal heart sound present, S2 normal heart sound present and no murmurs GI: Inspection: Yes normal to inspection Palpation (GI): Soft to palpation, nontender and no guarding Auscultation: normal bowel sounds : General: Yes no CVA tenderness Back/Spine/Pelvis: Back: no CVA tenderness Skin: General skin exam: no rashes or lesions noted Neuro: General: oriented to person and oriented to place Cranial nerves: Yes CN's II-XII intact bilaterally and Yes Equal, round and reactive pupils present Cognition (Neuro): normal cognition Motor exam (neuro): 5/5 motor strength present throughout Extrem: General: Yes normal to inspection Psych: Appearance: grossly normal Speech and movement: Normal speech and movement present Affect: normal affect Attitude: cooperative Thought process: Normal thought process present Thought content: Normal thought content present Medications Administered Discontinued Medications Generic Name Dose Route Start Last Admin Trade Name Oneil PRN Reason Stop Dose Admin Acetaminophen 650 mg 09/25/22 07:03 09/25/22 07:24 Acetaminophen 325 Mg Tablet PO 09/25/22 07:04 650 mg ONCE ONE Administration Azithromycin 500 mg 09/25/22 07:17 09/25/22 07:25 Azithromycin 500 Mg Tablet PO 09/25/22 07:18 500 mg ONCE ONE Administration Medical Decision Making Medical Decision Making [facility] Narrative: 72-year-old female who presents emergency department for evaluation of shortness of breath x2 weeks, getting progressively worse and a cough that is productive of thick green and sometimes blood streaks sputum. Patient does have a history of end-stage renal disease and has been dialyzed on Monday, and Monday and states she completed a full dialysis yesterday. Patient has been on amoxicillin 1000 mg twice a day for 5 days of a 10 day course with no improvement her symptoms. Did order laboratory evaluation to include CBC, CMP, troponin, COVID-19, RSV and influenza. Chest x-ray was also ordered The patient's laboratory evaluation did reveal low platelet count of a [id number]. Patient had an elevated creatinine of 2.9 consistent with her end-stage renal disease. Patient has an elevated troponin of 36.5 but this is related to her end-stage renal disease as well. COVID-19, influenza and RSV were negative. Chest x-ray was reviewed by me and I do not see any acute infiltrates focal infiltrate. The radiology felt that the patient had cardiomegaly with pulmonary venous congestion without edema and chronic diffuse interstitial prominence and bronchial wall thickening. Patient's presentation is consistent with acute bronchitis. Advised the patient to continue taking her amoxicillin as prescribed and I did broaden her coverage to cover atypical organisms with Zithromax Z-Zeb. She was given her 1st dose here in the emergency department. Patient is not wheezing so I do not think that she needs an inhaler at this point. Differential Diagnosis Differential diagnosis includes but is not limited to pulmonary edema, pneumonia, bronchitis, anemia Lab Data MDM Lab Attestation statement: I reviewed the patient's lab results. Please see the MDM from my discussion the patient's laboratory values 09/25/22 04:57 09/25/22 04:57 Labs: Lab Results 09/25/22 09/25/22 09/25/22 Range/Units 04:57 04:57 04:57 WBC 6.7 (4.8-10.8) X10*3/uL RBC 4.08 L (4.20-5.50) X10*6/uL Hgb 12.4 (12.0-16.0) g/dl Hct 38.9 (37.0-47.0) % MCV 95.3 (80.0-98.0) fL MCH 30.4 (27.0-33.0) pg MCHC 31.9 (31.0-35.0) g/dl RDW 15.1 (11.0-16.0) % Plt Count 125 L (160-400) X10*3/uL MPV 10.3 (9.4-12.3) fL Immature Gran % (Auto) 0.6 H (0.0-0.4) % Neut % (Auto) 55.7 (45-73) % Lymph % (Auto) 31.5 (20-40) % [place] % (Auto) 9.9 (2-11) % Eos % (Auto) 1.6 (0-4) % Baso % (Auto) 0.7 (0-2) % Lymph # (Auto) 2.1 (1.2-4.9) X10*3/uL [place] # (Auto) 0.7 (0.1-1.2) X10*3/uL Eos # (Auto) 0.1 (0.0-0.4) X10*3/uL Baso # (Auto) 0.1 (0.0-0.2) X10*3/uL Abs Immat Gran (auto) 0.04 H (0.00-0.03) X10*3/uL Absolute Neuts (auto) 3.7 (2.0-8.3) x10*3/uL Absolute Nucleated RBC 0.000 (0.0-0.012) X10*3/uL Nucleated RBC % (auto) 0.0 (0.0-0.2) /100WBC Sodium 142 (135-145) mmol/L Potassium 3.4 (3.3-5.1) mmol/L Chloride 101 (96-108) mmol/L Carbon Dioxide 29 (22-29) mmol/L Anion Gap 15 (12-20) BUN 16 (9-16) mg/dL Creatinine 2.90 H (0.5-1.4) mg/dL Estim Creat Clear Calc 14.6 Estimated GFR 16 Random Glucose 96 (60-115) mg/dL Lactic Acid (0.5-2.0) mmol/L Calcium 9.1 D (8.4-10.2) mg/dL Total Bilirubin 0.5 (0.0-1.0) mg/dL AST 17 (5-31) U/L ALT 7 (0-31) U/L Alkaline Phosphatase 87 (39-117) U/L Troponin I High Sens (<3.5-17.0) ng/L Total Protein 6.8 (6.5-8.0) g/dL Albumin 3.4 L (3.5-5.0) g/dL Influenza Type A (PCR) NEGATIVE (Negative) Influenza Type B (PCR) NEGATIVE (Negative) RSV RNA Qual (PCR) NEGATIVE (Negative) SARS-CoV-2 RNA (RT-PCR) NEGATIVE (Negative) 09/25/22 09/25/22 Range/Units 04:57 04:57 WBC (4.8-10.8) X10*3/uL RBC (4.20-5.50) X10*6/uL Hgb (12.0-16.0) g/dl Hct (37.0-47.0) % MCV (80.0-98.0) fL MCH (27.0-33.0) pg MCHC (31.0-35.0) g/dl RDW (11.0-16.0) % Plt Count (160-400) X10*3/uL MPV (9.4-12.3) fL Immature Gran % (Auto) (0.0-0.4) % Neut % (Auto) (45-73) % Lymph % (Auto) (20-40) % [place] % (Auto) (2-11) % Eos % (Auto) (0-4) % Baso % (Auto) (0-2) % Lymph # (Auto) (1.2-4.9) X10*3/uL [place] # (Auto) (0.1-1.2) X10*3/uL Eos # (Auto) (0.0-0.4) X10*3/uL Baso # (Auto) (0.0-0.2) X10*3/uL Abs Immat Gran (auto) (0.00-0.03) X10*3/uL Absolute Neuts (auto) (2.0-8.3) x10*3/uL Absolute Nucleated RBC (0.0-0.012) X10*3/uL Nucleated RBC % (auto) (0.0-0.2) /100WBC Sodium (135-145) mmol/L Potassium (3.3-5.1) mmol/L Chloride (96-108) mmol/L Carbon Dioxide (22-29) mmol/L Anion Gap (12-20) BUN (9-16) mg/dL Creatinine (0.5-1.4) mg/dL Estim Creat Clear Calc Estimated GFR Random Glucose (60-115) mg/dL Lactic Acid 0.8 (0.5-2.0) mmol/L Calcium (8.4-10.2) mg/dL Total Bilirubin (0.0-1.0) mg/dL AST (5-31) U/L ALT (0-31) U/L Alkaline Phosphatase (39-117) U/L Troponin I High Sens 36.5 H (<3.5-17.0) ng/L Total Protein (6.5-8.0) g/dL Albumin (3.5-5.0) g/dL Influenza Type A (PCR) (Negative) Influenza Type B (PCR) (Negative) RSV RNA Qual (PCR) (Negative) SARS-CoV-2 RNA (RT-PCR) (Negative) Independent Interpretation I performed an independent interpretation of an: Plain X-Ray Interpretation: My independent interpretation patient's chest x-ray is no acute focal infiltrate Radiology Impression Discussion of test interpretation with radiology: I have reviewed the radiologist's reading. Radiologist Impression: XR chest 1V IMPRESSION: * Cardiomegaly and pulmonary venous congestion without overt edema. * Chronic diffuse interstitial prominence and bronchial wall thickening. Dictated By:Dakota Pastrana MDSigned By:<Electronically signed by Dakota Pastrana MD in OV>09/25/22 0544 Discharge Plan Discharge Clinical Impression: Acute bronchitis Qualifiers: Bronchitis organism: unspecified organism Qualified Code(s): J20.9 - Acute bronchitis, unspecified Patient Disposition: Home, Self-Care Instructions: Acute Bronchitis (ED) Additional Instructions: Your chest x-ray is unchanged from your previous x-rays, there was no evidence for pneumonia or congestive heart failure/pulmonary edema. Your blood work was consistent with your kidney disease with no other significant abnormalities. At this time, given your productive cough and your shortness of breath, I believe that you have bronchitis. Finish the amoxicillin as prescribed by your manager of development. You were given Zithromax (azithromycin) 500 mg orally. I am prescribing a Zithromax Z-Zeb. Take Day 1 again tomorrow morning and then finish the prescription-a total of 5 days Follow-up with your doctor in 2 days. Please return to the emergency department if your symptoms get worse or if you develop any symptoms that are concerning to you. Prescriptions: New azithromycin [Zithromax Z-Zeb] 250 mg tablet See Rx Instructions .ROUTE .COMPLEX Qty: 6 0RF Rx Instructions: take 500 mg today (day 1), then 250 mg for 4 days (days 2-5) No Action atorvastatin 80 mg Tablet 80 mg PO BEDTIME Qty: 30 0RF acetaminophen 325 mg Tablet 650 mg PO Q6H PRN (Reason: Pain, Mild (Pain Scale 1-3)) Qty: 30 0RF sevelamer HCl [Renagel] 800 mg Tablet 800 mg PO TIDWM Qty: 60 0RF aspirin 81 mg Tablet,Delayed Release (Dr/Ec) 81 mg PO DAILY Qty: 3 0RF sodium bicarbonate 650 mg Tablet 650 mg PO TID Qty: 60 0RF heparin (porcine) 5,000 unit/mL Solution 2,400 unit IVPUSH BOLUS PRN (Reason: 40 Unit/Kg - Heparin Protocol) Qty: 1 0RF heparin(porcine) in 0.45% NaCl 25,000 unit/250 mL Parenteral Solution 25,000 unit continuous IV infusion .Q0M Qty: 250 0RF carvedilol 25 mg tablet 25 mg PO BID Rx Instructions: must administer with a meal/food calcitriol 0.5 mcg capsule 0.5 mcg PO DAILY Interventions: ED Discharge Assessment Last Done: 09/25/22 09:09 Discharge Date/Time: 09/25/22 09:09
[2022-09-25] MEDS: Acetaminophen 325 MG TABLET 650 MG PO (07:24)
[2022-09-25 07:25] VITALS: BP 130/85; PULSE 75; RESP 16; O2SAT 93
[2022-09-25] MEDS: Azithromycin 500 MG TABLET PO (07:25)
--- NOTE | 2022-09-25 08:01 | PC.NURSE ---
Patient awaiting ride from daughter reports feeling warm is afebrile AOx 4 was given tylenol and ABX some nausea noted
[2022-09-25 08:02] VITALS: TEMP 36.8
--- NOTE | 2022-09-25 08:56 | PC.NURSE ---
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
== END 2022-09-25 09:09 | disposition home or self-care (01) ==
PROVIDERS: Emergency Provider Emergency Medicine Emergency Medical Services
DX: J20.9 Acute bronchitis, unspecified (principal); R06.02 Shortness of breath; R05.9 Cough, unspecified; Z20.822 Contact with and (suspected) exposure to COVID-19; Z20.828 Contact with and (suspected) exposure to other viral communicable diseases; Z79.899 Other long term (current) drug therapy
CPT/HCPCS: 0241U; 36415; 71045; 80053; 83605; 84484; 85025; 93005; 99284

== ENCOUNTER 2022-10-30 13:03 | Inpatient (IN) | payer MEDICARE, MEDICAID, SELFPAY ==
[2022-10-30] VITALS (7 sets, daily range): BP systolic 143–208; BP diastolic 95–118; PULSE 72–99; RESP 20–31; TEMP 36.8–36.9; O2SAT 96–99; BMI 21.6
--- NOTE | ~2022-10-30 | CT_ITS ---
EXAMINATION: CT HEAD WITHOUT CONTRAST CLINICAL INFORMATION: Altered mental status COMPARISON: 04/13/2019 TECHNIQUE: Contiguous axial imaging was performed from the skull base to vertex without intravenous contrast. This CT examination was performed using dose optimization techniques as appropriate, variously including the following: * Automated exposure control * Adjustment of mA and/or kV according to patient size (this includes techniques or standardized protocols for targeted exams where dose is matched to indication/reason for exam; i.e. extremities or head) Use of iterative reconstruction technique DLP: 602 mGy-cm. FINDINGS: There is no evidence of acute intracranial hemorrhage or territorial infarction. No abnormal mass effect or midline shift is seen. Young to white matter differentiation is well preserved. No extra-axial fluid collections are identified. No hydrocephalus. No significant volume loss. Patchy periventricular and deep white matter hypoattenuation is consistent with mild small vessel ischemic changes. The osseous structures and soft tissues are normal. The mastoid air cells and visualized portions of the paranasal sinuses are well aerated. CT/CT head/brain wo IV con IMPRESSION: No acute intracranial pathology.
--- NOTE | ~2022-10-30 | XR_ITS ---
EXAMINATION: XR CHEST CLINICAL INFORMATION: Shortness of breath COMPARISON: Chest x-ray 10/30/2022, 2:09 PM TECHNIQUE: Frontal portable view of the chest was obtained. 5:38 PM FINDINGS: Central port catheter tip in right atrium unchanged position since prior study. Status post median sternotomy. Left atrial clip. Persistent pulmonary vascular congestion with increased lung markings similar in severity to prior chest x-ray today. No significant pleural effusion. Status post right humeral head replacement. Chronic deformity of the left humeral head articular surface. Multilevel degenerative spondylosis spine. XR/XR chest 1V IMPRESSION: Persistent pulmonary vascular congestion. No significant change since prior chest x-ray today.
--- NOTE | ~2022-10-30 | XR_ITS ---
EXAMINATION: XR CHEST CLINICAL INFORMATION: Shortness of breath. COMPARISON: 09/25/2022 chest radiograph. TECHNIQUE: Frontal view of the chest was obtained. FINDINGS: Support devices: Right-sided large-bore central venous catheter with tip terminating at the level the right atrium. Atrial appendage clip in place. Multilevel sternotomy wires are intact. Right shoulder prosthesis appears intact. There is mild prominence of the pulmonary vasculature and cardiac silhouette. Minimal blunting of the left costophrenic angle seen. Mild left basilar linear markings as well. Multilevel healed left rib fractures are noted. Severe left glenohumeral degenerative joint changes. XR/XR chest 1V IMPRESSION: Mild congestion with possible very small left pleural effusion and superjacent atelectasis.
--- NOTE | 2022-10-30 13:11 | ECG_ITS ---
Test Reason : CHEST PAIN Blood Pressure : / mmHG Vent. Rate : 076 BPM Atrial Rate : 076 BPM P-R Int : 170 ms QRS Dur : 110 ms QT Int : 448 ms P-R-T Axes : 060 -19 059 degrees QTc Int : 504 ms Sinus rhythm with Premature atrial complexes Minimal voltage criteria for LVH, may be normal variant ( [place] product ) Nonspecific ST and T wave abnormality Prolonged QT Abnormal ECG When compared with ECG of 25-SEP-2022 04:43, QRS duration has increased Nonspecific T wave abnormality has replaced inverted T waves in Lateral leads Referred By: Lucita Panda Electronically Signed By:Mikal Cavanaugh
--- NOTE | 2022-10-30 13:20 | ED_ITS ---
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 She states swelling has been greater since they placed a fistula in her left arm roughly 4 months ago. She reports she is increasingly anxious and having difficulty taking a deep breath. She reports she is ?very scared? and is anxious. She reports she has bruises across her body including on her back and denies any trauma and denies any anticoagulation. She denies any recent paresthesias, weakness, fever, chills, nausea, vomiting, diarrhea, constipation, melena, hematochezia, headache, or vision changes. Patient denies any trauma/known injury and denies any recent illness or known sick contacts. Related Data Home Medications Medication Instructions Recorded Confirmed amlodipine 10 mg tablet 10 mg PO DAILY 08/10/20 12/13/20 calcitriol 0.5 mcg capsule 0.5 mcg PO DAILY 12/09/20 12/13/20 carvedilol 25 mg tablet 25 mg PO BID 12/09/20 12/13/20 Previous Rx's Medication Instructions Recorded acetaminophen 325 mg tablet 650 mg PO Q6H PRN Pain, Mild (Pain 12/17/20 Scale 1-3) #30 tabs aspirin 81 mg tablet,delayed 81 mg PO DAILY #3 tabs 12/17/20 release atorvastatin 80 mg tablet 80 mg PO BEDTIME #30 tabs 12/17/20 heparin (porcine) 25,000 unit/250 25,000 unit (250 mL) continuous IV 12/17/20 mL in 0.45 % sodium chloride IV infusion .Q0M #250 mL soln heparin (porcine) 5,000 unit/mL 2,400 unit (0.48 mL) IVPUSH BOLUS 12/17/20 injection solution PRN 40 Unit/Kg - Heparin Protocol #1 mL sevelamer HCl 800 mg tablet 800 mg PO TIDWM #60 tabs 12/17/20 (Renagel) sodium bicarbonate 650 mg tablet 650 mg PO TID #60 tabs 12/17/20 azithromycin 250 mg tablet See Rx Instructions PO .COMPLEX #6 09/25/22 (Zithromax Z-Zeb) tabs Allergies Allergy/AdvReac Type Severity Reaction Status Date / Time atenolol [ATENOLOL] Allergy Unknown DIFF Verified 09/26/22 07:24 BREATHING, heart races. amphetamine [Adderall] AdvReac Unknown shortness Verified 09/26/22 07:24 of breath dextroamphetamine [Adderall] AdvReac Unknown shortness Verified 09/26/22 07:24 of breath Review of Systems Review of Systems: Pertinent positives and negatives discussed in HPI. [facility] Past Medical History Medical History Anemia Asthmatic bronchitis CKD (chronic kidney disease), stage IV Depression DVT (deep venous thrombosis) GERD (gastroesophageal reflux disease) History of ectopic Hypertension Surgical History H/O colonoscopy History of carpal tunnel release of both wrists History of left knee replacement History of rectal surgery Status post total replacement of right shoulder Family History Family History Father No problems noted. Mother No problems noted. Social History Social History (System 09/26/22 @ 07:24 by Cortney Huizar) Household Members: Spouse Housing: House Do you presently have visiting nurse or other home services: No Alcohol intake: unknown Cigarettes Per Day: 1 Advance Directives: Yes Advance Directives Information Provided: No Advance Directives on File: No service: No Current occupational status: other Current occupation: young,right handed Physical Exam ED Vital Signs: Vital Signs - 24 hr 10/30/22 13:18 Temperature 98.5 F Pulse Rate 87 Respiratory Rate 20 Blood Pressure 200/98 H Pulse Oximetry 96 Oxygen Delivery Method Room Air BMI result Body Mass Index 21.6 Nursing notes and vital signs reviewed. GENERAL APPEARANCE: A&0 x 4, patient appears anxious and uncomfortable. Does not appear toxic HENMT: Normal to inspection, atraumatic, face symmetrical. Normal external ears, nose, and oropharynx clear. EYE: PERRLA, EOM intact, structures appear normal NECK: Supple without lymphadenopathy. No stiffness or restricted ROM. CHEST: Normal to inspection HEART: Normal rate and regular rhythm, normal S1/S2, no M/R/G VASC: Fistula present on left upper extremity with positive bruit and thrill LUNGS: LS diminished with difficulty speaking in complete sentences. No crackles, wheezes, or rhonchi auscultated ABDOMEN: Soft, nontender, nondistended. Normal bowel sounds noted BACK: No CVAT, no obvious deformity EXTREMITIES: Moving all extremities without difficulty. No cyanosis or clubbing. Normal capillary refill. 3+ pitting edema in BLE, 2+ pitting edema in BUE. NEUROLOGICAL: Alert and oriented, moving all 4 extremities with equal strength. CN not formally tested but appearing grossly intact. Cognition normal SKIN: Warm and dry without any lesions, rash, or visible sores. Ecchymosis noted on left upper arm, across posterior thoracic spine, and at other various places PSYCH: Cooperative, normal affect, normal thought process Medications Administered Discontinued Medications Generic Name Dose Route Start Last Admin Trade Name Freq PRN Reason Stop Dose Admin Furosemide 40 mg 10/30/22 13:23 10/30/22 13:41 Furosemide 40 Mg/4 Ml Vial IVPUSH 10/30/22 13:24 40 mg ONCE ONE Administration Protocol Nitroglycerin 0.5 inch 10/30/22 13:23 10/30/22 13:41 Nitroglycerin 2 % Oint 1 Gm Packet TRANSDERMA 10/30/22 13:24 0.5 inch ONCE ONE Administration Medical Decision Making Medical Decision Making [facility] Narrative: 1320: Patient was assessed the emergency department. Based on HPI and PE plan for blood work including lactic acid, troponin, D-dimer, coags, and BNP. EKG and chest x-ray ordered to assess for cardiac dysfunction and exacerbated CHF. Case discussed with Dr. Torres and 40 mg IV push Lasix for diuresis and 1/2 inch nitroglycerin ointment to apply to chest for hypertension. Chemistries sent yesterday while at dialysis per pt. Reviewed blood work showing hyperkalemia and worsening kidney function compared to previous blood work. 1345: Hematology consistent with stable anemia, no signs of leukocytosis or thrombocytopenia. Lactic acid negative. BNP 4,158 consistent with CHF exacerbation. Troponin 31.4 appears to be within normal range for pt as last troponin from 09/25/22 was 36.5. I have independently evaluated the EKG showing sinus rhythm at 76 beats per minute with PACs, nonspecific ST and T-wave abnormality and prolonged QT, no signs of acute ischemia noted. When compared to previous EKG done on 09/25/2022 no acute changes noted. Discussed need for admission due to pt's symptoms and diagnostics. Pt in agreement with plan with no unanswered questions at this time. 1405: Reached out to hospitalist, Dr Brown, via [employer] regarding pts diagnostics and CHF exac. Pending response. 1410: Remaining blood work and CXR pending. Pt admitted to the hospital for further treatment and evaluation. Lab Data 10/30/22 13:22 10/30/22 04:22 Labs: Lab Results 10/30/22 10/30/22 10/30/22 Range/Units 04:22 13:22 13:22 WBC 7.0 (4.8-10.8) X10*3/uL RBC 3.08 L D (4.20-5.50) X10*6/uL Hgb 9.4 L D (12.0-16.0) g/dl Hct 30.3 L D (37.0-47.0) % MCV 98.4 H (80.0-98.0) fL MCH 30.5 (27.0-33.0) pg MCHC 31.0 (31.0-35.0) g/dl RDW 15.4 (11.0-16.0) % Plt Count 212 D (160-400) X10*3/uL MPV 9.4 (9.4-12.3) fL Immature Gran % (Auto) 0.6 H (0.0-0.4) % Neut % (Auto) 61.4 (45-73) % Lymph % (Auto) 24.9 (20-40) % [place] % (Auto) 10.8 (2-11) % Eos % (Auto) 1.9 (0-4) % Baso % (Auto) 0.4 (0-2) % Lymph # (Auto) 1.7 (1.2-4.9) X10*3/uL [place] # (Auto) 0.8 (0.1-1.2) X10*3/uL Eos # (Auto) 0.1 (0.0-0.4) X10*3/uL Baso # (Auto) 0.0 (0.0-0.2) X10*3/uL Abs Immat Gran (auto) 0.04 H (0.00-0.03) X10*3/uL Absolute Neuts (auto) 4.3 (2.0-8.3) x10*3/uL Absolute Nucleated RBC 0.000 (0.0-0.012) X10*3/uL Nucleated RBC % (auto) 0.0 (0.0-0.2) /100WBC Sodium 138 (135-145) mmol/L Potassium 5.5 H D (3.3-5.1) mmol/L Chloride 101 (96-108) mmol/L Carbon Dioxide 22 (22-29) mmol/L Anion Gap 21 H (12-20) BUN 33 H (9-16) mg/dL Creatinine 3.53 H (0.5-1.4) mg/dL Estim Creat Clear Calc 12.1 Estimated GFR 13 Random Glucose 88 (60-115) mg/dL Lactic Acid (0.5-2.0) mmol/L Calcium 9.1 (8.4-10.2) mg/dL Total Bilirubin 0.5 (0.0-1.0) mg/dL AST 22 (5-31) U/L ALT 9 (0-31) U/L Alkaline Phosphatase 135 H (39-117) U/L Troponin I High Sens (<3.5-17.0) ng/L B-Natriuretic Peptide 4158 H (<100) pg/mL Total Protein 7.6 (6.5-8.0) g/dL Albumin 3.6 (3.5-5.0) g/dL 10/30/22 10/30/22 Range/Units 13:22 13:22 WBC (4.8-10.8) X10*3/uL RBC (4.20-5.50) X10*6/uL Hgb (12.0-16.0) g/dl Hct (37.0-47.0) % MCV (80.0-98.0) fL MCH (27.0-33.0) pg MCHC (31.0-35.0) g/dl RDW (11.0-16.0) % Plt Count (160-400) X10*3/uL MPV (9.4-12.3) fL Immature Gran % (Auto) (0.0-0.4) % Neut % (Auto) (45-73) % Lymph % (Auto) (20-40) % [place] % (Auto) (2-11) % Eos % (Auto) (0-4) % Baso % (Auto) (0-2) % Lymph # (Auto) (1.2-4.9) X10*3/uL [place] # (Auto) (0.1-1.2) X10*3/uL Eos # (Auto) (0.0-0.4) X10*3/uL Baso # (Auto) (0.0-0.2) X10*3/uL Abs Immat Gran (auto) (0.00-0.03) X10*3/uL Absolute Neuts (auto) (2.0-8.3) x10*3/uL Absolute Nucleated RBC (0.0-0.012) X10*3/uL Nucleated RBC % (auto) (0.0-0.2) /100WBC Sodium (135-145) mmol/L Potassium (3.3-5.1) mmol/L Chloride (96-108) mmol/L Carbon Dioxide (22-29) mmol/L Anion Gap (12-20) BUN (9-16) mg/dL Creatinine (0.5-1.4) mg/dL Estim Creat Clear Calc Estimated GFR Random Glucose (60-115) mg/dL Lactic Acid 1.0 (0.5-2.0) mmol/L Calcium (8.4-10.2) mg/dL Total Bilirubin (0.0-1.0) mg/dL AST (5-31) U/L ALT (0-31) U/L Alkaline Phosphatase (39-117) U/L Troponin I High Sens 31.4 H (<3.5-17.0) ng/L B-Natriuretic Peptide (<100) pg/mL Total Protein (6.5-8.0) g/dL Albumin (3.5-5.0) g/dL Discharge Plan Discharge Clinical Impression: CHF exacerbation Patient Disposition: Admitted As Inpatient
[2022-10-30 13:29] LABS: MANUAL DIFF FLAG NO
[2022-10-30 13:32] LABS: Basophils Percent Auto 0.4 % (0-2); Eosinophils Absolute Auto 0.1 X10*3/uL (0.0-0.4); Eosinophils Percent Auto 1.9 % (0-4); Hematocrit 30.3 % (37.0-47.0); Hemoglobin 9.4 g/dl (12.0-16.0); Imm Gran Abs Auto 0.04 X10*3/uL (0.00-0.03); Imm Gran Pct Auto 0.6 % (0.0-0.4); Lymphocytes Absolute Auto 1.7 X10*3/uL (1.2-4.9); Lymphocytes Percent Auto 24.9 % (20-40); Mean Corpuscular Hemoglobin 30.5 pg (27.0-33.0); Mean Corpuscular Volume 98.4 fL (80.0-98.0); Mean Platelet Volume 9.4 fL (9.4-12.3); Monocytes Absolute Auto 0.8 X10*3/uL (0.1-1.2); Monocytes Percent Auto 10.8 % (2-11); Neutrophils Absolute Auto 4.3 x10*3/uL (2.0-8.3); Neutrophils Percent Auto 61.4 % (45-73); Platelet Count 212 X10*3/uL (160-400); Red Blood Count 3.08 X10*6/uL (4.20-5.50); Red Cell Distribution Width 15.4 % (11.0-16.0)
[2022-10-30] MEDS: Nitroglycerin 2 % Oint 1 GM Packet 0.5 INCH TRANSDERMA (13:41)
[2022-10-30] MEDS: Furosemide 40 MG/4 ML VIAL IVPUSH (13:41)
--- NOTE | 2022-10-30 13:41 | MHC.EDTECH ---
EKG completed and signed by
--- OUTSIDE RECORDS SUMMARY | 2022-10-30 13:43 | XMS_ITS | Continuity of Care Document ---
:1950 Author Organization [facility] Address [address] [place] [id number]- Care Team Providers Name Role Phone Bassem Walters MD Primary Care Physician Encounter [facility] Date(s): 10/01/22 - 10/04/[address] [id number]- Encounter Diagnosis Fall (Final) - 10/01/22 Closed head injury (Final) - 10/01/22 Left arm swelling (Final) - 10/01/22 Laceration of head (Final) - 10/01/22 Discharge Disposition: A-D/C Home Attending Physician: Rachele GORMAN, Carmita Campbell Admitting Physician: Kody Hunt DO Referring Physician: [...] tetanus/diphtheria/pertussis, acel(Tdap) 09/13/12 Given 1Result Comment: [05/31/2017] [id number] Note: 1-13 STOP AND SHOP [id number] Comment: [12/31/2014 Uncharted] PUT IN TWICE Medications acetaminophen 325 mg oral tablet 650 mg, 2, tablet, By Mouth, Every 6 hours, PRN, Refills 0, Maintenance, pain/fever >100F, 01/04/21 15:36:00 EDT, ; Start Date: 01/04/21 Status: OrderedamLODIPine 10 mg oral tablet 1 tablet = 10 mg, By Mouth, Daily, 0 Refills, Maintenance, 05/14/21 9:20:00 EDT, Tablet, ; Start Date: 05/14/21 Status: OrderedamLODIPine 10 mg oral tablet 10 mg, Tablet, By Mouth, 10/04/22 9:00:00 EST Start Date: 10/04/22 Stop Date: 10/04/22 Status: Completedaspirin 81 mg oral delayed release tablet 81 [...] 13:35:00 EDT, ; Start Date: 06/13/22 Status: Orderedcarvedilol 6.25 mg oral tablet 6.25 mg, Tablet, By Mouth, 10/04/22 9:00:00 EST Start Date: 10/04/22 Stop Date: 10/04/22 Status: CompletedcloNIDine 0.2 mg/24 hr transdermal film, extended release 1 patch, Topically, Every week, on Monday, 0 Refills, Maintenance, 10/28/21 17:37:00 EDT, Patch, ; Start Date: 10/28/21 Status: OrderedEliquis 2.5 mg oral tablet 1 tablet, By Mouth, 2 times a day, # 56 tablet, 10 Refills, Maintenance, 09/20/22 8:15:00 EST, [facility], 162.5, cm, 06/28/22 11:05:00 EST, Height, 56, kg, 06/28/22 10:26:00 EST, Dry Weight Start Date: 09/20/22 Status: OrderedFleet Enema 19 gm-7 gm rectal enema 1 each, Rectally, Once, PRN for constipation, Maintenance, 06/27/22 9:36:00 EST, Enema, ; Start Date: 06/27/22 Status: Orderedlisinopril 20 mg oral tablet 20 mg, Tablet, By Mouth, 10/04/22 9:00:00 EST Start Date: 10/04/22 Stop Date: 10/04/22 Status: Completedlisinopril 20 mg oral tablet 20 mg, 1, [...] hours, PRN for Pain , Severe, Routine, 10/01/22 22:02:00 EST Start Date: 10/01/22 Stop Date: 10/08/22 Status: OrderedoxyCODONE 5 mg oral tablet 2.5 mg, 0.5, tablet, By Mouth, Every 6 hours, PRN, for 7 days, # 12 tablet, Refills 0, Tot. Refills 0, Acute 10/11/22 11:27:00 EST, Pain , Severe, 10/04/22 11:27:00 EST, Route to Pharmacy Electronically, [facility], Partial fill upon pat... Start Date: 10/04/22 Stop Date: 10/11/22 Status: Orderedsevelamer carbonate 800 mg oral tablet 2 tablet = 1,600 mg, By Mouth, 2 times a day, 0 Refills, Maintenance, 04/29/22 10:40:00 EDT, Tablet,; Start Date: 04/29/22 Status: OrderedtraZODone 100 mg [...] Confirmed Active (CKD) stage G3b/A3 CAD in [place] artery Confirmed Active Depression, major Confirmed Active [...] Exam Date Time Procedure Performing Provider Status 10/03/22 4:52 PM C-Arm < 1 Hour Mina Mark; Jaswinder (Verified) Notes:(C-Arm < 1 Hour) Reason For Exam: LEFT ARM FISTULARESULT: C-Arm < 1 Hour C-Arm < 1 Hour INDICATION: Reason: LEFT ARM FISTULA COMPARISONS: None TECHNIQUE: Fluoroscopy support was provided. There was no radiologist in attendance. FLUOROSCOPY TIME: 20.9 seconds TECHNOLOGIST TIME: 30 minutes FINDINGS: Fluoroscopy support was provided. There was no radiologist in attendance. IMPRESSION: See above. WSN: [id number] Ordering Physician: Leonid Martínez Dictated By: Kahlil Perry MD Dictated Date/Time: 10/04/22 7:23 pm Reviewed By: Kahlil Perry MD Signed By: Kahlil Perry MD Signed Date/Time: 10/04/22 7:23 pm Transcribed By: JOHN Transcribed Date/Time: 10/04/22 6:52 pm Exam Date Time Procedure Performing Provider Status 10/01/22 5:49 PM XR Hip w/Pelvis 2-3 View Right Eddie Noble , Edwi n E; Auth (Verified) Notes:(XR Hip w/Pelvis 2-3 View Right) Reason For Exam: With Pain;TraumaRESULT: XR Hip w/Pelvis 2-3 View Right XR Hip w/Pelvis 2-3 View Right Hx of Present Illness: unwitnessed fall. Denies LOC. lac to back of head. actively bleeding on eliquis. Pt also had dialysis fistula on left arm infiltrate today.; Reason: Trauma; With Pain; Clinical Question(s): Fracture COMPARISON: 06/06/2022 CT pelvis 06/26/2022 reviewed. FINDINGS: An intramedullary charity with distal locking screw is present in the proximal right femur, with 2 sliding screws extending into the femoral head, with alignment appearing anatomic. The hardware appears intact. Some irregular linear lucency was sclerotic margins is seen consistent with incomplete healing of the intertrochanteric fracture, particularly through the lesser trochanter. There is no evidence of acute fracture or dislocation. Normal hips and sacroiliac joints. Mild arterial calcification. IMPRESSION: Satisfactory appearance of the right hip hardware with no acute fracture. Some fracture lucency remains visible through the lesser trochanter with sclerotic margins suggestive of ongoing healing. WSN: [id number] Ordering Physician: Cynthia Rivers Dictated By: Chris Kauffman MD Dictated Date/Time: 10/01/22 6:44 pm Reviewed By: Chris Kauffman MD Signed By: Chris Kauffman MD Signed Date/Time: 10/01/22 6:44 pm Transcribed By: JOHN Transcribed Date/Time: 10/01/22 6:39 pm Exam Date Time Procedure Performing Provider Status 10/01/22 2:50 PM US Doppler Ext Upper Venous Left Nneka Ruano ssa; Auth (Verified) Notes:(US Doppler Ext Upper Venous Left) Reason For Exam: Pain in limb;Other: RESULT: US Doppler Ext Upper Venous Left US Doppler Ext Upper Venous Left Hx of Present Illness: unwitnessed fall. Denies LOC. Lac to back of head. actively bleeding on eliquis. Pt also had dialysis fistula on left arm infiltrate today.; Reason: Other:; Pain in limb; Clinical Question(s): Thrombosis COMPARISON: No pertinent prior exams available for comparison.. IMAGING TECHNIQUE: Ultrasound examination of the upper extremity deep venous system was performed using grayscale, color, and spectral wave analysis including response to compression. Assessment includes the contralateral jugular and subclavian vein. FINDINGS: Internal jugular vein: Not accessible due to patient's cervical collar and therefore not assessed. Subclavian vein: Only visualized laterally. Visualized portion is patent. No thrombosis. Axillary vein: Patent. No thrombosis. Brachial vein: Patent. No thrombosis. Basilic vein: Patent. No thrombosis. Cephalic vein: Patent.. There is a focal outpouching of the cephalic vein with swirling internal blood and peripheral thrombus. It is unclear if this corresponds to the patient's AV fistula with peripheral thrombus or a pseudoaneurysm. Contralateral internal jugular vein: Not accessible due to patient's cervical collar and therefore not assessed. Contralateral subclavian vein: Not accessible due to patient's cervical collar and therefore not assessed. IMPRESSION: 1. Suboptimal assessment of the upper approximately veins due to non imaged internal jugular veins bilaterally and suboptimal assessment of the subclavian veins bilaterally. 2. There is a focal outpouching of the cephalic vein with swirling internal blood and peripheral thrombus. It is unclear if this corresponds to the patient's AV fistula with peripheral thrombus or a pseudoaneurysm. Further assessment with dedicated vascular ultrasound of this area and the AV fistula is recommended WSN: [id number] Ordering Physician: Cynthia Rivers Dictated By: Kirk Cardoza MD Dictated Date/Time: 10/01/22 3:25 pm Reviewed By: Kirk Cardoza MD Signed By: Kirk Cardoza MD Signed Date/Time: 10/01/22 3:25 pm Transcribed By: JOHN Transcribed Date/Time: 10/01/22 3:10 pm Exam Date Time Procedure Performing Provider Status 10/01/22 1:[address] Thoracic Spine W/O Contrast Dale Chata A.; Auth (Verified) Notes:(CT Thoracic Spine W/O Contrast) Reason For Exam: Spine fracture, thoracic, traumatic;Other:RESULT: CT Thoracic Spine W/O Contrast CT Chest W/O Contrast, CT Thoracic Spine W/O Contrast INDICATION: Hx of Present Illness: unwitnessed fall. Denies LOC. Lac to back of head. Actively bleeding on eliquis. Pt also had dialysis fistula on left arm infiltrate today.; Reason: Other:; trauma fall; Clinical Question(s): Interstitial Alveolar Infiltration TECHNIQUE: Helical CT scan of the chest without IV contrast, formatted in 3 planes. The original dataset was reconstructed with a small field of view around the thoracic spine utilizing soft tissue andbone algorithm reconstructions in 3 planes. Weight-based protocol was performed using automatic exposure control. CTDIvol Body: 8.50 mGy, DLP Body: 311 mGy*cm. COMPARISON: CT chest without contrast 12/18/2020. FINDINGS: Index Clerk view findings, lines and tubes: Large bore right IJ tunneled dialysis catheter terminating in the right atrium. Trachea and airways: Patent without evidence of tracheal or endobronchial lesion. Lungs and pleura: There is a masslike consolidative opacity involving the posterior left lower lobe spanning 2.7 x 2.0 x 2.2 cm. Adjacent compressive atelectasis in the left lower lobe from the small left pleural effusion. Trace fluid in the left major fissure. Small right pleural effusion with adjacent right basilar atelectasis. Mild/moderate centrilobular and paraseptal emphysema. Ill-defined reticulation and groundglass opacity involving the anterior aspect of the left upper lobe. Mediastinum and cherie: No mass or hematoma. No mediastinal or hilar lymphadenopathy. No esophageal abnormality. Visualized thyroid gland is atrophic. Heart: Mild cardiomegaly. No pericardial effusion. Prior CABG. Moderate coronary artery calcifications. Aorta: Moderate vascular calcification but no aneurysm. Moderate calcification of the aortic valve. Mild mitral annular calcifications Pulmonary arteries: Normal caliber. Chest wall soft tissues: Generalized chest wall anasarca. Diaphragm: Intact. Upper abdomen: No acute processes the upper abdomen. Partially imaged cysts in the upper pole of theleft kidney. Bones: No acute abnormality. No acute displaced rib fractures. Old healed posterolateral left-sided rib fractures. Severe degenerative changes of the left glenohumeral joint. Prior right shoulder arthroplasty. Moderate multilevel degenerative changes of the thoracic spine. Unchanged compression deformity of the superior endplate of T12. Kyphosis of the thoracic spine. Status post median sternotomy. IMPRESSION: 1. No CT evidence of an acute traumatic injury to the chest or thoracic spine. 2. Masslike and solid opacity involving the posterior left lower lobe measuring up to 2.7 cm, new from the prior exam. The appearance is suspicious for a neoplastic process, though a consolidated pneumonia or round atelectasis could have a similar appearance. Recommend assessment with PET-CT and/or contrast enhanced chest CT. 3. Small bilateral pleural effusions, left greater than right with associated adjacent compressive atelectasis of both lower lobes. 4. Mild cardiomegaly. 5. Ill-defined reticulation and groundglass opacity involving the anterior aspect of the left upper lobe is most likely infectious or inflammatory in etiology. A critical result message (Yellow) has been communicated via the naaya system on 10/01/2022 2:10 PM, Message ID [id number]. WSN: [id number] Ordering Physician: Cynthia Rivers Dictated By: Kirk Cardoza MD Dictated Date/Time: 10/01/22 2:10 pm Reviewed By: Kirk Cardoza MD Signed By: Kirk Cardoza MD Signed Date/Time: 10/01/22 2:10 pm Transcribed By: JOHN Transcribed Date/Time: 10/01/22 1:56 pm Exam Date Time Procedure Performing Provider Status 10/01/22 1:[address] Chest W/O Contrast Chata Hunter; Auth (Verified) Notes:(CT Chest W/O Contrast) Reason For Exam: trauma /fall;Other:RESULT: CT Chest W/O Contrast CT Chest W/O Contrast, CT Thoracic Spine W/O Contrast INDICATION: Hx of Present Illness: unwitnessed fall. Denies LOC. Lac to back of head. Actively bleeding on eliquis. Pt also had dialysis fistula on left arm infiltrate today.; Reason: Other:; trauma fall; Clinical Question(s): Interstitial Alveolar Infiltration TECHNIQUE: Helical CT scan of the chest without IV contrast, formatted in 3 planes. The original dataset was reconstructed with a small field of view around the thoracic spine utilizing soft tissue andbone algorithm reconstructions in 3 planes. Weight-based protocol was performed using automatic exposure control. CTDIvol Body: 8.50 mGy, DLP Body: 311 mGy*cm. COMPARISON: CT chest without contrast 12/18/2020. FINDINGS: Index Clerk view findings, lines and tubes: Large bore right IJ tunneled dialysis catheter terminating in the right atrium. Trachea and airways: Patent without evidence of tracheal or endobronchial lesion. Lungs and pleura: There is a masslike consolidative opacity involving the posterior left lower lobe spanning 2.7 x 2.0 x 2.2 cm. Adjacent compressive atelectasis in the left lower lobe from the small left pleural effusion. Trace fluid in the left major fissure. Small right pleural effusion with adjacent right basilar atelectasis. Mild/moderate centrilobular and paraseptal emphysema. Ill-defined reticulation and groundglass opacity involving the anterior aspect of the left upper lobe. Mediastinum and cherie: No mass or hematoma. No mediastinal or hilar lymphadenopathy. No esophageal abnormality. Visualized thyroid gland is atrophic. Heart: Mild cardiomegaly. No pericardial effusion. Prior CABG. Moderate coronary artery calcifications. Aorta: Moderate vascular calcification but no aneurysm. Moderate calcification of the aortic valve. Mild mitral annular calcifications Pulmonary arteries: Normal caliber. Chest wall soft tissues: Generalized chest wall anasarca. Diaphragm: Intact. Upper abdomen: No acute processes the upper abdomen. Partially imaged cysts in the upper pole of theleft kidney. Bones: No acute abnormality. No acute displaced rib fractures. Old healed posterolateral left-sided rib fractures. Severe degenerative changes of the left glenohumeral joint. Prior right shoulder arthroplasty. Moderate multilevel degenerative changes of the thoracic spine. Unchanged compression deformity of the superior endplate of T12. Kyphosis of the thoracic spine. Status post median sternotomy. IMPRESSION: 1. No CT evidence of an acute traumatic injury to the chest or thoracic spine. 2. Masslike and solid opacity involving the posterior left lower lobe measuring up to 2.7 cm, new from the prior exam. The appearance is suspicious for a neoplastic process, though a consolidated pneumonia or round atelectasis could have a similar appearance. Recommend assessment with PET-CT and/or contrast enhanced chest CT. 3. Small bilateral pleural effusions, left greater than right with associated adjacent compressive atelectasis of both lower lobes. 4. Mild cardiomegaly. 5. Ill-defined reticulation and groundglass opacity involving the anterior aspect of the left upper lobe is most likely infectious or inflammatory in etiology. A critical result message (Yellow) has been communicated via the naaya system on 10/01/2022 2:10 PM, Message ID [id number]. WSN: [id number] Ordering Physician: Cynthia Rivers Dictated By: Kirk Cardoza MD Dictated Date/Time: 10/01/22 2:10 pm Reviewed By: Kirk Cardoza MD Signed By: Kirk Cardoza MD Signed Date/Time: 10/01/22 2:10 pm Transcribed By: JOHN Transcribed Date/Time: 10/01/22 1:56 pm Exam Date Time Procedure Performing Provider Status 10/01/22 1:[address] Cervical Spine W/O Contrast Chata Hunter; Auth (Verified) Notes:(CT Cervical Spine W/O Contrast) Reason For Exam: Neck trauma, dangerous injury mechanism;Other:RESULT: CT Cervical Spine W/O Contrast CT Head/Brain W/O Contrast, CT Cervical Spine W/O Contrast INDICATION: Hx of Present Illness: unwitnessed fall. Denies LOC. lac to back of head. actievly bleeding on eliquis. Pt also had dialysis fistula on left arm infiltrate today.; Reason: Trauma; Clinical Question(s): Hematoma TECHNIQUE: Noncontrast head CT using axial technique was reconstructed in axial and coronal planes. Noncontrast spiral CT through the cervical spine was formatted in 3 planes. Automatic tube modulationwas used for the cervical spine and iterative dose reconstruction was used for both the head and cervical spine to optimize scan parameters and image quality. CTDIvol Body: 9.90 mGy, DLP Body: 229 mGy*cm. CTDIvol Head: 41.00 mGy, DLP Head: 672 mGy*cm. COMPARISON: Multiple priors, most recent CT head 05/23/2022 FINDINGS: Index Clerk View Findings, Lines and Tubes: Partially imaged right IJ dialysis catheter. BRAIN AND EXTRA-AXIAL SPACES: No parenchymal hemorrhage, midline shift, or mass effect. Young-white matter differentiation is well preserved. Chronic lacunar infarcts within the bilateral basal ganglia and thalami. No acute infarct.Negative insular ribbon sign. Atherosclerotic vascular calcification of the carotid arteries but negative hyperdense vessel sign. Focal dilation of the left vertebral artery with peripheral calcification, similar to the prior study. Mild prominence of the ventricles and sulci consistent with parenchymal volume loss. Moderate low-density white matter changes. No subarachnoid hemorrhage. No subdural or epidural collection. CALVARIUM, SKULL BASE, AND SOFT TISSUES: No fractures or suspicious bony lesions. Mild mucosal thickening of the right maxillary sinus. The mastoid air cells are clear. Visualized orbits and globes are intact. 4.7 cm soft tissue swelling the right parieto-occipital region with overlying cutaneous samantha. CERVICAL SPINE: No fracture. No acute osseous abnormalities. Exaggerated cervical lordosis. Slight retrolisthesis of C5 on C6. No locked or perched facet. Moderate multilevel degenerative disc space narrowing and end plate irregularity, most prominent at C4-C7. OTHER BONES: No acute abnormality. CERVICAL SOFT TISSUES AND LUNG APICES: Normal soft tissues. Mild paraseptal emphysema. Small left effusion. IMPRESSION: 1. No acute abnormality of the head or cervical spine. 2. Soft tissue swelling in the right parietal scalp. I have personally reviewed the images and I agree with this report. WSN: [id number] Ordering Physician: Cynthia Rivers Dictated By: Maya Singh MD Dictated Date/Time: 10/01/22 2:55 pm Reviewed By: Wiliam Gordillo MD Signed By: Wiliam Gordillo MD Signed Date/Time: 10/01/22 3:00 pm Transcribed By: JOHN Transcribed Date/Time: 10/01/22 1:57 pm Exam Date Time Procedure Performing Provider Status 10/01/22 1:[address] Head/Brain W/O Contrast Chata Hunter; Jaswinder (Verified) Notes:(CT Head/Brain W/O Contrast) Reason For Exam: TraumaRESULT: CT Head/Brain W/O Contrast CT Head/Brain W/O Contrast, CT Cervical Spine W/O Contrast INDICATION: Hx of Present Illness: unwitnessed fall. Denies LOC. lac to back of head. actievly bleeding on eliquis. Pt also had dialysis fistula on left arm infiltrate today.; Reason: Trauma; Clinical Question(s): Hematoma TECHNIQUE: Noncontrast head CT using axial technique was reconstructed in axial and coronal planes. Noncontrast spiral CT through the cervical spine was formatted in 3 planes. Automatic tube modulationwas used for the cervical spine and iterative dose reconstruction was used for both the head and cervical spine to optimize scan parameters and image quality. CTDIvol Body: 9.90 mGy, DLP Body: 229 mGy*cm. CTDIvol Head: 41.00 mGy, DLP Head: 672 mGy*cm. COMPARISON: Multiple priors, most recent CT head 05/23/2022 FINDINGS: Index Clerk View Findings, Lines and Tubes: Partially imaged right IJ dialysis catheter. BRAIN AND EXTRA-AXIAL SPACES: No parenchymal hemorrhage, midline shift, or mass effect. Young-white matter differentiation is well preserved. Chronic lacunar infarcts within the bilateral basal ganglia and thalami. No acute infarct.Negative insular ribbon sign. Atherosclerotic vascular calcification of the carotid arteries but negative hyperdense vessel sign. Focal dilation of the left vertebral artery with peripheral calcification, similar to the prior study. Mild prominence of the ventricles and sulci consistent with parenchymal volume loss. Moderate low-density white matter changes. No subarachnoid hemorrhage. No subdural or epidural collection. CALVARIUM, SKULL BASE, AND SOFT TISSUES: No fractures or suspicious bony lesions. Mild mucosal thickening of the right maxillary sinus. The mastoid air cells are clear. Visualized orbits and globes are intact. 4.7 cm soft tissue swelling the right parieto-occipital region with overlying cutaneous samantha. CERVICAL SPINE: No fracture. No acute osseous abnormalities. Exaggerated cervical lordosis. Slight retrolisthesis of C5 on C6. No locked or perched facet. Moderate multilevel degenerative disc space narrowing and end plate irregularity, most prominent at C4-C7. OTHER BONES: No acute abnormality. CERVICAL SOFT TISSUES AND LUNG APICES: Normal soft tissues. Mild paraseptal emphysema. Small left effusion. IMPRESSION: 1. No acute abnormality of the head or cervical spine. 2. Soft tissue swelling in the right parietal scalp. I have personally reviewed the images and I agree with this report. WSN: [id number] Ordering Physician: Cynthia Rivers Dictated By: Maya Singh MD Dictated Date/Time: 10/01/22 2:55 pm Reviewed By: Wiliam Gordillo MD Signed By: Wiliam Gordillo MD Signed Date/Time: 10/01/22 3:00 pm Transcribed By: JOHN Transcribed Date/Time: 10/01/22 1:57 pm Vital Signs Most recent to oldest 1 2 3 [Reference Range]: Height 163 cm 163 cm 163 cm (10/04/22 7:57 AM) (10/03/22 8:28 PM) (10/03/22 8:2 5 PM) Weight 61.5 kg 58.18 kg (10/03/22 8:28 PM) (10/03/22 8:25 PM) Oxygen Saturation [94-100 %] 100 % 97 % 98 % (10/04/22 7:57 AM) (10/04/22 4:00 AM) (10/03/22 11: 00 PM) Pulse Rate [55-90 bpm] 68 bpm 68 bpm 65 bpm (10/04/22 10:16 AM) (10/04/22 7:57 AM) (10/04/22 4: 00 AM) Body Mass Index [18.5-24.99 23.15 kg/m2 21.9 kg/m2 kg/m2] (10/03/22 8:28 PM) (10/03/22 8:25 PM) Blood Pressure [90-138/55-84 166/73 mm Hg 145/63 mm Hg 145 /63 mm Hg mm Hg] *H* *H* *H* (10/04/22 5:02 PM) (10/04/22 10:16 AM) (10/04/22 10 :16 AM) Respiratory Rate [16-30 18 br/min 17 br/min 18 br/mi n br/min] (10/04/22 5:03 PM) (10/04/22 7:57 AM) (10/04/22 4:0 0 AM) Temperature [96.8-100.4 98.5 DegF 98.3 DegF 98.5 Deg F DegF] (10/04/22 7:57 AM) (10/04/22 4:00 AM) (10/03/22 11: 00 PM) Liters per Minute 2 L/min 2 L/min 2 L/min (10/04/22 4:00 AM) (10/03/22 11:00 PM) (10/03/22 8: 28 PM) Mode of Delivery (Oxygen) Room air Nasal cannula Nasal cannula (10/04/22 7:57 AM) (10/04/22 4:00 AM) (10/03/22 11: 00 PM) Blood pressure sites Arm, right Arm, right Arm, right (10/04/22 7:57 AM) (10/04/22 4:00 AM) (10/03/22 11: 00 PM) Temperature Route Oral Oral Oral (10/04/22 7:57 AM) (10/04/22 4:00 AM) (10/03/22 11: 00 PM) Dry Weight 58.18 kg (10/03/22 8:25 PM) Weight Obtained Via Bed scale (10/03/22 8:28 PM) Social History Social History Type Response Smoking Status Former smoker, quit more padmini n 30 days ago; Never; Other: qquit smoking 1 ppd in 1979 and then occasional 1-3 cigarettes on occasion, last cigarette prior to May; entered on: 06/27/22 Sex Admission evaluation note Chace Huffman MD: MODIFY, MODIFY, PERFORM, MODIFY, MODIFY, MODIFY Event Display: Admission Note Authored Date: [id number] Patient: ??TRACEY HEARN ? Age:??72 Years?Sex:??Female?:??1950?? Chief Complaint/Reason for Consultation Getting out of bed unsteady, unwitnessed fall. Denies LOC. lac to back of head. on eliquis. denies head neck or back pain. 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 ?? Patient had lost her balance as she was putting on her nighttime pajamas and fell back hitting occiput of the head however no loss of consciousness. ??Patient had small posterior laceration which was approximated with samantha and 1 suture with pressure dressing applied at ED. ?? Further history also reveals that patient's left arm AV fistula has infiltrated about a week ago and had small??hand dorsum blood blisters which had then burst. They have still been using the fistula in the meantime until tonight and in fact had tried to use the fistula yesterday while at dialysis however only able to complete after treatment and had to complete it with PICC line placed at the facility also about a week ago.??Arm became painful about 3 days ago. She was supposed to be evaluated by outpatient surgery affiliated with the??dialysis??center however never did occur. ?? Associated Sx include ZAVALA??02/20, arm pain as above (throbbing, dull, swelling, loss of function, no erythema),??Shortness of breath, cough (seen at [facility] Monday night COPD exacerbation and dispensed amoxicillin??+ azithromycin, finished both courses this AM). No nausea, vomiting, diarrhea, no constipation. No urinary??symptoms (still urinates little daily). No abdominal or??chest pain. ?? At the ED patient initially vitally stable and afebrile on room air slightly hypertensive 155-160 systolic however no diastolic hypertension [this is isolated systolic hypertension] CBC with differential grossly within normal limits Basic metabolic panel grossly normal limits however BUN/creatinine notable for 18/2.9 no other electrolyte derangements CK total 34 Triple swab influenza/RSV/COVID-[address] head showing small soft tissue swelling in right parietal scalp but no intracranial processes CT C-spine within normal limits CT chest notable for masslike solid opacity involving the posterior left lower lobe measuring up to2.7 cm, enlarged from 2.3cm on CT on 06/26/22??and suspicious for neoplastic process versus consolidated pneumonia/mild atelectasis with recommendations for PET???CT or contrast-enhanced chest CT Doppler ultrasound of left upper extremity notable for focal outpouching of cephalic vein with swirling internal blood and peripheral thrombus, which is concerning for AV fistula peripheral thrombus versus pseudoaneurysm however not very clear whether these findings correspond to the patient's AV fistula or not with recommendations for dedicated vascular ultrasound of AV fistula X-ray of right hip notable for no acute fractures.? Medical Hx: as above Surgical Hx: CABG December 2020, ORIF??R Hip May 2022 Social Hx: 1 pack/day??smoking since then quit 1978, no dirnking. Lives with daughter granddaughter Family Hx: Mother had heart disease and DM type 2. Father unknown Hx Echo Tech: [facility] ?? Pt to be admitted for further evaluation of the shunt for potential surgical correction ?? Review of Systems As above Objective ? Vital Signs?? Temperature: 98.3 DegF (10/01/22 12:20:00) Temperature Route: Oral (10/01/22 12:20:00) Pulse Rate: 69 bpm (10/01/22 17:54:00) Respiratory Rate: 17 br/min (10/01/22 17:54:00) Systolic Blood Pressure:??139 mm Hg??High (10/01/22 17:54:00) Diastolic Blood Pressure: 83 mm Hg (10/01/22 17:54:00) Mean Arterial Pressure: 102 mm Hg (10/01/22 17:54:00) Pulse Pressure: 56 mm Hg (10/01/22 17:54:00) Oxygen Saturation: 96 % (10/01/22 17:54:00) Mode of Delivery (Oxygen): Room air (10/01/22 17:54:00) ? Intake/Output? No Data Available ? Physical Exam Constitutional: Alert, in no distress. Mental Status: Oriented to person, place and time. Head: Normocephalic. Eyes: Pupils are equal, round Ear, Nose and Throat: Oropharynx clear, mucous membranes moist. Neck: Supple, Full range of motion. Respiratory: Clear to auscultation. No wheezing. Increased vocal fremitus on L lower??lung base, c/w solid mass Cardiovascular: S1 S2 regular. Systolic Aortic Murmur 2-3/6 Gastrointestinal: Abdomen soft, non-tender, non-distended. Genitourinary: No costovertebral angle tenderness. Neurologic: No focal neurological deficits. Moves all extremities spontaneously. Skin/Musculoskeletal: Gross L Upper Limb swelling from uynder shoulder to hand, with scattered scabbed ulcerations/ skin bruising/ecchymoses, palpable thrill over lateral aspect of midhumerus around previous shunt/fistual entry site(s). Tender to touch. 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 L AV shunt/fistula failure Infiltration vs pseudoaneurysm vs thrombosis Resultant pain, swelling, and loss of function ESRD on Dialysis / Plan: - No dialysis though shiunt, perform through R PICC line instead, dialysis on - Consult [facility] - Dedicated vascular ultrasound ordered - Holding apixaban per transplant surgery reccs - Renal diet - cw home sevelamer - APAP scheduled for pain control - Oxycodone 2.5mg q6 PRN breakthrough pain ?? Mechanical fall Fallen backward w/ strike to occipital Head Posterior scalp lac s/p staple and suture CTH w/ no internal bleeding Plan: - Continue to monitor ?? 2.7 cm L posterior aspect Lung mass, increasing in size from 2.3cm on 06/2023 ?Malignancy, Lung CA Pt on room air Afebrile, not tachypneic, no concern for PNA or atelectasis as clinically not consistent More likely malignancy give CT findings, size increase??+ subacute/chronic nature Plan: - Will consult Adult Onc here for PET CT vs Bx ?? CAD s/p CABG HFpEF AFib HTN HLD Plan: - c/w home baby aspirin - c/w home atorvastatin - c/w home carvewdilol - c/w home lisinopril - Holding apixaban per transplant surgery reccs ?? QI - Code: DNR, okay to intubate per MOLST form - DVT PPx: Holding apixaban per transplant surgery reccs, boots for now. 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 Chace Hfufman MD Internal Medicine/Pediatrics PGY2 Available by [employer] or Pager ([phone]) ?? Discussed w/ Dr. Paredes ?? Histories Allergies Allergies ?(Active and Proposed Allergies Only) atenolol? (Severity: Unknown severity, Onset: Unknown) ?Reactions: Cardiac Palpitations doxycycline? (Severity: Unknown severity, Onset: Unknown) Adderall? (Severity: Unknown severity, Onset: Unknown) Duloxetine? (Severity: Unknown severity, Onset: Unknown) ?Reactions: diarrhea ? Past Medical History/Problem List Active Problems??(26) Allergic rhinitis Anxiety state NOS Atrial fibrillation CABG (Coronary artery bypass grafting) planned CAD in [place] artery Chronic generalized pain Chronic glomerulonephritis due [...] Daughter: Multiple sclerosis Son: Multiple sclerosis ? Medications Home Medications Acetaminophen (acetaminophen 325 mg oral tablet)?650?Milligram?2?tablet?By Mouth?Every 6 hours?as needed?pain/fever >100F Amlodipine (amLODIPine 10 mg oral tablet)?1?tab(s)?10?Milligram?By Mouth?Daily apixaban (Eliquis 2.5 mg oral tablet)?1?tab(s)?By Mouth?2 times a day Aspirin (aspirin 81 mg oral delayed release tablet)?81?Milligram?1?tablet?By Mouth?Daily Atorvastatin (atorvastatin 80 mg oral tablet)?1?tab(s)?80?Milligram?By Mouth?Daily at bedtime Bisacodyl (bisacodyl 10 mg rectal suppository)?1?suppository(ies)?10?Milligram?Rectal ly?Daily?as needed?for constipation?if no BM in 3 days Carvedilol (carvedilol 6.25 mg oral tablet)?6.25?Milligram?1?tablet?By Mouth?2 times a day Clonidine (cloNIDine 0.2 mg/24 hr transdermal film, extended release)?1?patch(es)?Topically?Every week?on Monday Lisinopril (lisinopril 20 mg oral tablet)?20?Milligram?1?tablet?By Mouth?Daily Loperamide (loperamide 2 mg oral tablet)?1?tab(s)?2?Milligram?By Mouth?Daily?as needed?as needed Oxycodone (oxyCODONE 5 mg oral tablet)?2.5?Milligram?0.5?tablet?By Mouth?Every 6 hours?as needed?Pain , Moderate Polyethylene Glycol 3350 (MiraLax oral powder for reconstitution)?17?gram?By Mouth?Daily?as needed?Constipation?dissolve in water before taking Sevelamer (sevelamer carbonate 800 mg oral tablet)?2?tab(s)?1,600?Milligram?By Mouth?2 times a day?on Monday, Monday & & Sevelamer (sevelamer hydrochloride 800 mg oral tablet)?2?tab(s)?1,600?Milligram?By Mouth?3 times a day before meals?on monday, , Monday & Monday's Sodium Biphosphate-Sodium Phosphate (Fleet Enema 19 gm-7 gm rectal enema)?1?Each?Rectally?Once?as needed?for constipation Trazodone (traZODone 100 mg oral tablet)?100?Milligram?1?tablet?By Mouth?Daily atbedtime ? Inpatient Medications Medications (10) Active SCHEDULED: (1) NaCl 0.9% Flush 3ml (NaCL 0.9% Flush) ??3 mL, IV Push, Every 8 hours CONTINUOUS: (0) PRN: (9) Acetaminophen 325 mg Tablet (Acetaminophen Tablet) ??650 mg, By Mouth, Every 4 hours Dextromethorphan-Guaifenesin 20 mg-200 mg/10 mL Liqu UD (Robitussin DM Liquid) ??10 mL, By Mouth, Every 4 hours Melatonin 3 mg Tablet (Melatonin Tablet) ??3 mg, By Mouth, Daily at bedtime MorPHINE 2 mg Inj Syringe (MorPHINE Inj) ??2 mg, IV Push Slowly, Every 5 minutes NaCl 0.9% Flush 3ml (NaCL 0.9% Flush) ??3 mL, IV Push, Every 8 hours Ondansetron 2mg/mL Inj (2mL Vial) (Ondansetron Inj) ??4 mg, IV Push Slowly, Every 30 minutes Polyethylene Glycol 17 Gm Powder (MiraLax Powder) ??17 Gm 1 pack/packet, By Mouth, Daily Senna 8.6 mg / Docusate 50 mg tablet (Docusate/Senna Tablet) ??1 tablet, By Mouth, 2 times a day Simethicone 80 mg Chewable Tablet (Simethicone Tablet) ??80 mg, Chew, 3 times a day ? Results Recent Labs BLOOD COUNT & DIFF WBC 6.0 k/mm3 ()?? 10/01/2022 13:15 RBC 3.98 m/mm3 (Low)?? 10/01/2022 13:15 Hgb 12.1 Gm/dL ()?? 10/01/2022 13:15 Hct 38.5 % ()?? 10/01/2022 13:15 MCV 96.7 femtoliters ()?? 10/01/2022 13:15 MCH 30.4 pg ()?? 10/01/2022 13:15 MCHC 31.4 g/dL (Low)?? 10/01/2022 13:15 Platelet Count 124 k/mm3 (Low)?? 10/01/2022 13:15 RDW-SD 54.4 femtoliters (High)?? 10/01/2022 13:15 MPV 9.9 femtoliters ()?? 10/01/2022 13:15 Nucleated RBC (Automated) 0.0 #/100 WBC'S ()?? 10/01/2022 13:15 Abs. NRBC 0.0 k/mm3 ()?? 10/01/2022 13:15 Abs. Neut 3.9 k/mm3 ()?? 10/01/2022 13:15 Abs. Lymph 1.5 k/mm3 ()?? 10/01/2022 13:15 Abs. Charles Mix 0.5 k/mm3 ()?? 10/01/2022 13:15 Abs. Eo 0.1 k/mm3 ()?? 10/01/2022 13:15 Abs. Baso 0.1 k/mm3 ()?? 10/01/2022 13:15 Neut % 65.0 % ()?? 10/01/2022 13:15 Lymph % 24.3 % ()?? 10/01/2022 13:15 Charles Mix % 7.9 % ()?? 10/01/2022 13:15 Eos % 1.7 % ()?? 10/01/2022 13:15 Baso % 0.8 % ()?? 10/01/2022 13:15 Imm Gran 0.3 % ()?? 10/01/2022 13:15 Abs. Imm Gran 0.0 k/mm3 ()?? 10/01/2022 13:15 ?? CARDIAC CK, Total 34 units/L ()?? 10/01/2022 13:15 ?? CHEM GENERAL Sodium 139 mmol/L ()?? 10/01/2022 13:15 Potassium 4.1 mmol/L ()?? 10/01/2022 13:15 Chloride 98 mmol/L ()?? 10/01/2022 13:15 Bicarbonate Level 29 mmol/L ()?? 10/01/2022 13:15 Anion Gap 12 ()?? 10/01/2022 13:15 Glucose Level 95 mg/dL ()?? 10/01/2022 13:15 BUN 18 mg/dL ()?? 10/01/2022 13:15 Creatinine-Blood 2.9 mg/dL (High)?? 10/01/2022 13:15 Estimated GFR Creatinine 17 ML/MIN/1.73 M2 ()?? 10/01/2022 13:15 Calcium 8.7 mg/dL ()?? 10/01/2022 13:15 Calcium, Ionized pH Corrected 1.13 mmol/L ()?? 10/01/2022 13:15 Magnesium 2.1 mg/dL ()?? 10/01/2022 13:15 Protein, Total 7.2 Gm/dL ()?? 10/01/2022 13:15 Albumin 4.0 Gm/dL ()?? 10/01/2022 13:15 AG Ratio 1.3 ()?? 10/01/2022 13:15 Alkaline Phosphatase 91 units/L ()?? 10/01/2022 13:15 AST (SGOT) 14 units/L ()?? 10/01/2022 13:15 ALT (SGPT) 9 units/L ()?? 10/01/2022 13:15 Bilirubin, Total 0.3 mg/dL ()?? 10/01/2022 13:15 ?? VIROLOGY Influenza A PCR NEGATIVE ()?? 10/01/2022 15:50 Influenza B PCR NEGATIVE ()?? 10/01/2022 15:50 RSV PCR NEGATIVE ()?? 10/01/2022 15:50 COVID-19 PCR Specimen Source NASAL ()?? 10/01/2022 15:50 COVID-19 PCR Result NEGATIVE ()?? 10/01/2022 15:50 ? Blood Glucose Trend Glucose Level: 95 mg/dL (10/01/22 13:15:00) ? CBC, CBC w/Diff?? CBC?? Differential?? WBC: 6 k/mm3 (13:15) Abs. Neut: 3.9 k/mm3 (13:15) RBC:??3.98 m/mm3??Low (13:15) Abs. Lymph: 1.5 k/mm3 (13:15) Hct: 38.5 % (13:15) Abs. Charles Mix: 0.5 k/mm3 (13:15) RDW-SD:??54.4 femtoliters??High (13:15) Abs. Eo: 0.1 k/mm3 (13:15) Nucleated RBC (Automated): 0 #/100 WBC'S (13:15) Abs. Baso: 0.1 k/mm3 (13:15) Abs. NRBC: 0 k/mm3 (13:15) Neut %: 65 % (13:15) ?? Lymph %: 24.3 % (13:15) ?? Charles Mix %: 7.9 % (13:15) ?? Eos %: 1.7 % (13:15) ?? Baso %: 0.8 % (13:15) ?? Imm Gran: 0.3 % (13:15) ?? Abs. Imm Gran: 0 k/mm3 (13:15) ? Urinalysis?? No qualifying data available. ?? Microbiology ?? COVID-19, RSV, and Flu A/B, Rapid PCR?? Completed?? Source: Nasal Body Site: Nose Collected Dt/Tm: 10/01/2022 12:59 Last Updated Dt/Tm: 10/01/2022 17:21 ? Tray Paredes MD: PERFORM Event Display: Admission Note Authored Date: [id number] Attending Attestation: I have seen and evaluated this patient.?? I have discussed the case and its management with the resident and agree with the findings and plan as documented in the resident???s note. Note Debbie Perez RN: PERFORM Event Display: Discharge/Transfer Note Hospital Authored Date: [id number] Nursing Discharge Note Entered On: 10/04/2022 18:53 EST Performed On: 10/04/2022 18:52 EST by Debbie Perez RN Nursing Discharge Note 2 Discharge Time : 10/04/2022 18:49 EST Discharge Level of Care at Discharge : Home/Jail/Foster Care Discharge VNA/Hospice/Home Care(v001) : [facility] [place] Patient Left Unit Via : Wheelchair Patient Accompanied Off Unit with : Other: daughter DC Instructions Provided & Signed by Pt : Yes Patient Understands D/C Instructions : Yes Patient Instructions Discharge Signed : Yes Did Pt have Specialty Bed or Wound Vac : No Debbie Perez RN - 10/04/2022 18:52 Carmita Garg MD: PERFORM, MODIFY Event Display: Discharge/Transfer Note Hospital Authored Date: Patient: ??TRACEY HEARN ? Age:??72 Years?Sex:??Female?:??1950?? Patient Information Discharge Location: S1 Primary Care Physician: Bassem Walters MD Admit Date/Time: 10/01/22 18:51 Discharge Disposition Discharge Disposition: ?? Discharge Diagnosis Closed head injury (S09.90XA) Fall (W19.XXXA) Laceration of head (S01.91XA) Left arm swelling (M79.89) ?? _ Discharge Medications Acetaminophen (acetaminophen 325 mg oral tablet)?650?Milligram?2?tablet?By Mouth?Every 6 hours?as needed?pain/fever >100F Amlodipine (amLODIPine 10 mg oral tablet)?1?tab(s)?10?Milligram?By Mouth?Daily apixaban (Eliquis 2.5 mg oral tablet)?1?tab(s)?By Mouth?2 times a day Aspirin (aspirin 81 [...] mg oral tablet)?2.5?Milligram?0.5?tablet?By Mouth?Every 6 hours?as needed?for 7?Days?Pain , Severe Polyethylene Glycol 3350 (MiraLax oral powder for reconstitution)?17?gram?By Mouth?Daily?as needed?Constipation?dissolve in water before taking Sevelamer (sevelamer carbonate 800 mg oral tablet)?2?tab(s)?1,600?Milligram?By Mouth?2 times a day Sodium Biphosphate-Sodium Phosphate (Fleet Enema 19 gm-7 gm rectal enema)?1?Each?Rectally?Once?as needed?for constipation Trazodone (traZODone 100 mg oral tablet)?100?Milligram?1?tablet?By Mouth?Daily at bedtime ? Medications Started oxycodone Medications Discontinued oxycodoe Allergies Allergies ?(Active and Proposed Allergies Only) atenolol? (Severity: Unknown severity, Onset: Unknown) ?Reactions: Cardiac Palpitations doxycycline? (Severity: Unknown severity, Onset: Unknown) Adderall? (Severity: Unknown severity, Onset: Unknown) Duloxetine? (Severity: Unknown severity, Onset: Unknown) ?Reactions: diarrhea ? Future Appointments Monday 2:05 PM EDT ?? 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 Pseudoaneurysm of left AVF L AV shunt/fistula failure ??Resultant pain, swelling, and loss of function ??ESRD on Dialysis T// ??US doppler LUE unclear if there is peripheral thrombus or psuedoaneurysm. ?? S/P LUE fistulogram (10/03). Trauma surgery cleared for d/c; will follow as out patient d/w Renal and cleared for discharge after HD She will be discharged after HD ?? Plan: ??- No dialysis though shunt, perform through R PICC line instead, dialysis on / (renal on board) - cw home sevelamer ??- APAP scheduled for pain control ??- Oxycodone 2.5mg q6 PRN breakthrough pain Will f/up with Transplant surgery for possible ligation of the fistula ? Mechanical fall Fallen backward w/ strike to occipital Head ??Posterior scalp lac s/p staple and suture ??CTH w/ no internal bleeding ??- will need stitches removed in 2-3 weeks ?? 2.7 cm L posterior aspect Lung mass, increasing in size from 2.3cm on 06/2023 ???Malignancy, Lung CA ??Pt on room air ??Afebrile, not tachypneic, no concern for PNA or atelectasis as clinically not consistent ??More likely malignancy give CT findings, size increase + subacute/chronic nature ??- Outpatient management ?? CAD s/p CABG ??HFpEF ??AFib ??HTN ??HLD Plan: ??- c/w home baby aspirin ??- c/w home atorvastatin ??- c/w home carvedilol ??- c/w home lisinopril ??-Will resume??apixaban?- Code: DNR, okay to intubate per MOLST form ?- Diet: Renal ? Objective Assessment and Plan Assessment: Vital Signs?? Temperature: 98.5 DegF (10/04/22 07:57:00) Temperature Route: Oral (10/04/22 07:57:00) Pulse Rate: 68 bpm (10/04/22 10:16:00) Heart Rate Monitored: 67 bpm (10/03/22 17:45:00) Respiratory Rate: 17 br/min (10/04/22 07:57:00) Systolic Blood Pressure:??145 mm Hg??High (10/04/22 10:16:00) Systolic Blood Pressure:??145 mm Hg??High (10/04/22 10:16:00) Diastolic Blood Pressure: 63 mm Hg (10/04/22 10:16:00) Diastolic Blood Pressure: 63 mm Hg (10/04/22 10:16:00) Blood pressure sites: Arm, right (10/04/22 07:57:00) Mean Arterial Pressure: 100 mm Hg (10/04/22 07:57:00) Pulse Pressure: 81 mm Hg (10/04/22 07:57:00) Oxygen Saturation: 100 % (10/04/22 07:57:00) Liters per Minute: 2 L/min (10/04/22 04:00:00) Mode of Delivery (Oxygen): Room air (10/04/22 07:57:00) Early Warning Score: 7 (10/04/22 10:23:45) ? . Physical Exam Awake, alert, oriented Head:?2 cm contusion on the posterior aspect of patient's occiput with 1 staple and 1 [id number] stitch.. ?? Lungs: Clear to auscultation bilateral, no wheezing no rales Heart: Regular rate and rhythm, no murmur, no rub or gallop Abdomen: Soft, nontender, nondistended; Bowel sounds present Extremity: No edema cyanosis clubbing, left arm fistula site swollen and tender Neurological: No focal deficit Psychiatric: Normal mood and affect Surgical Procedures Revision Arteriovenous Fistula 10/03/2022 16:13 Pending Results XR C-Arm < 1 Hour ordered on 10/03/2022 Follow-Up Appointments Added Follow Up ?Time Frame ?Comments Romeo GORMAN, Bassem Medrano?1 week Leonid Martínez MD?1 week?1 wk follow up to discuss need for possible fistula ligation if swelling doesn't improve Home Health Face to Face *Denotes mandatory cannon ?? *I certify that this patient is under my care and that I or an allowed non- physician working with [facility] a face to face encounter with the patient on this date:??10/04/2022 12:19 ?? *The encounter with the patient was in whole, or in part, for the following medical condition, whichis the primary diagnosis(es) for home health care:??Closed head injury (S09.90XA) Fall (W19.XXXA) Laceration of head (S01.91XA) Left arm swelling (M79.89) ? *Select the indications for the discipline/s that are being arranged for this patient. Nursing (select all that apply): [_] None [x_] Medication management (reconciliation, teaching)?? [x_] Chronic disease management?? [_] Wound care and treatment?? [_] Home safety evaluation [_] Administer SQ/IM/IV medications?? [_] Cath care?? [_] Drain care?? [_] Trach or GT care?? Other _ Occupation Therapy (select all that apply): [_] None [_] ADL Management [_] Fall prevention training [_] Energy conservation [_] Cognitive training Other _ Physical Therapy (select all that apply): [_] None [x_] Functional mobility training [_x] Home exercise program to strengthen [_x] Increase ROM?? [_x] Falls prevention training [_x] Home maintenance program for chronic disease Other _ Speech Therapy (select all that apply): [_] None [_] Swallow evaluation and training [_] Speech and language training [_] Cognitive training to process, organize, and/or recall information Other _ ? *Homebound due to (select all that apply): [x_] Inability to leave home without assistance/supervision [_] Inability to ambulate without assistance [_] Pain [_x] Decreased strength and endurance [_] Unsteady gait [_] Severe SOB and fatigue [_] Impaired transfers [_] Inability to negotiate stairs [_] Limited weight bearing [_] Mental status change? *Physician Signature:??Carmita Jeffrey MD ?? *By signing this, I certify that I have personally evaluated the patient and agree with the findingsand recommendations as documented above. ? HomeHealthFTF Results Discharge Labs BLOOD BANK Blood Type B Positive ()?? 10/02/2022 15:36 Antibody Screen Positive ()?? 10/02/2022 15:36 ?? BLOOD COUNT & DIFF WBC 7.1 k/mm3 ()?? 10/03/2022 04:37 RBC 2.96 m/mm3 (Low)?? 10/03/2022 04:37 Hgb 8.9 Gm/dL (Low)?? 10/04/2022 06:10 Hct 28.7 % (Low)?? 10/04/2022 06:10 MCV 98.6 femtoliters ()?? 10/03/2022 04:37 MCH 30.4 pg ()?? 10/03/2022 04:37 MCHC 30.8 g/dL (Low)?? 10/03/2022 04:37 Platelet Count 103 k/mm3 (Low)?? 10/03/2022 04:37 RDW-SD 57.6 femtoliters (High)?? 10/03/2022 04:37 MPV 11.1 femtoliters ()?? 10/03/2022 04:37 Nucleated RBC (Automated) 0.0 #/100 WBC'S ()?? 10/03/2022 04:37 Abs. NRBC 0.0 k/mm3 ()?? 10/03/2022 04:37 Abs. Neut 3.9 k/mm3 ()?? 10/01/2022 13:15 Abs. Lymph 1.5 k/mm3 ()?? 10/01/2022 13:15 Abs. Charles Mix 0.5 k/mm3 ()?? 10/01/2022 13:15 Abs. Eo 0.1 k/mm3 ()?? 10/01/2022 13:15 Abs. Baso 0.1 k/mm3 ()?? 10/01/2022 13:15 Neut % 65.0 % ()?? 10/01/2022 13:15 Lymph % 24.3 % ()?? 10/01/2022 13:15 Charles Mix % 7.9 % ()?? 10/01/2022 13:15 Eos % 1.7 % ()?? 10/01/2022 13:15 Baso % 0.8 % ()?? 10/01/2022 13:15 Imm Gran 0.3 % ()?? 10/01/2022 13:15 Abs. Imm Gran 0.0 k/mm3 ()?? 10/01/2022 13:15 ?? CARDIAC CK, Total 34 units/L ()?? 10/01/2022 13:15 ? CHEM GENERAL Sodium 134 mmol/L ()?? 10/04/2022 06:10 Potassium 5.8 mmol/L (High)?? 10/04/2022 06:10 Chloride 96 mmol/L (Low)?? 10/04/2022 06:10 Bicarbonate Level 28 mmol/L ()?? 10/04/2022 06:10 Anion Gap 10 ()?? 10/04/2022 06:10 Glucose Level 77 mg/dL ()?? 10/02/2022 06:12 BUN 23 mg/dL ()?? 10/02/2022 06:12 Creatinine-Blood 5.8 mg/dL (High)?? 10/04/2022 06:10 Estimated GFR Creatinine 7 ML/MIN/1.73 M2 ()?? 10/04/2022 06:10 Calcium 8.2 mg/dL (Low)?? 10/02/2022 06:12 Calcium, Ionized pH Corrected 1.13 mmol/L ()?? 10/01/2022 13:15 Magnesium 2.0 mg/dL ()?? 10/02/2022 06:12 Protein, Total 7.2 Gm/dL ()?? 10/01/2022 13:15 Albumin 4.0 Gm/dL ()?? 10/01/2022 13:15 AG Ratio 1.3 ()?? 10/01/2022 13:15 Alkaline Phosphatase 91 units/L ()?? 10/01/2022 13:15 AST (SGOT) 14 units/L ()?? 10/01/2022 13:15 ALT (SGPT) 9 units/L ()?? 10/01/2022 13:15 Bilirubin, Total 0.3 mg/dL ()?? 10/01/2022 13:15 ? COAG INR 1.0 ()?? 10/03/2022 04:37 Protime (PT) 11.1 seconds ()?? 10/03/2022 04:37 ?? VIROLOGY Influenza A PCR NEGATIVE ()?? 10/01/2022 15:50 Influenza B PCR NEGATIVE ()?? 10/01/2022 15:50 RSV PCR NEGATIVE ()?? 10/01/2022 15:50 COVID-19 PCR Specimen Source NASAL ()?? 10/03/2022 05:00 COVID-19 PCR Result NEGATIVE ()?? 10/03/2022 05:00 ? Microbiology ?? COVID-19, RSV, and Flu A/B, Rapid PCR?? Completed?? Source: Nasal Body Site: Nose Collected Dt/Tm: 10/01/2022 12:59 Last Updated Dt/Tm: 10/01/2022 17:21 COVID-19 (2019 Novel Coronavirus) PCR?? Completed?? Source: Nasal Body Site: Nose Collected Dt/Tm: 10/03/2022 05:00 Last Updated Dt/Tm: 10/04/2022 02:21 ? 35??minutes spent on discharge Marlena Sims RN: PERFORM, SIGN, VERIFY Event Display: Case Management Discharge Plan Authored Date: Patient: TRACEY HEARN Age: 72 years Sex: Female : 1950 Associated Diagnoses: None Author: Marlena Sims RN Discharge Plan Case Management Discharge Plan : Case Management Discharge Plan Data 10/04/2022 12:19 EST Discharge Level of Care at Discharge Homehealth/VNA Discharge V[facility]Hospice[facility] Agency Manager Medical #1 intake Service Categories #1 Physical Therapy, Senior Living Service Comments #1 the visiting nurse will see you at home 1-2 days after dischargeDebbie Perez RN: PERFORM Event Display: Patient Education/Instruction Authored Date: [id number] Inpatient Adult Discharge Instructions [address] [address] Name: TRACEY HEARN : 1950 Visit: 10/01/2022 18:51:00 Current Date: 10/04/2022 18:24 Account: [id number] Inpatient Adult Discharge Instructions We would like [...] and their families. Surveys are administered by [employer] ?? If further treatment with your primary care physician or another doctor is recommended, it is important for you to keep the appointment. Call your primary care physician or return to the Emergency Department immediately if your condition worsens, fails to improve, or new symptoms develop. If you need to find a doctor, you can call [facility] [employer] for a referral at [phone] or toll free at [phone] or log in to [email or web address].. ?? You can view and manage your care through the patient portal or by using a health care marcin of your choosing. shoutr is a website that allows you to securely view your medical information including your hospital discharge summary, office visit summaries, medications and follow-up visits. You can also request appointments, renew medications, and request access to your medical information using a health care marcin of your choosing, or just ask a question. You can enroll at [email or web address] or register during your next office visit. You have been discharged from [facility], Patient Care Unit: S1. If you have any questions regarding these instructions after you leave, please call us and we will be happy to assist you. [facility] Your Care Team Attending Physician Rachele GORMAN, Carmita Campbell Consulting Providers Leonid Martínez MD Discharging Providers Rachele GORMAN, Carmita Campbell Reason for Admission Getting out of bed unsteady, unwitnessed fall. Denies LOC. lac to back of head. on eliquis. denies head neck or back pain. ESRD had dialysis today full treatment Your Diagnosis Fall Closed head injury Left arm swelling Laceration of head Tests Performed Below is a partial list of the tests performed during your hospitalization. You may have had other tests and procedures not included in this list. Please discuss all test results with your provider. Basic Metabolic Panel Calcium Ionized CBC CBC w/ Differential Comprehensive Metabolic Panel COVID-19 (2019 Novel Coronavirus) PCR COVID-19, RSV, and Flu A/B, Rapid PCR CPK Total Only Creatinine Electrolytes Hgb + Hct INR Magnesium Level Type and Screen CT Cervical Spine W/O Contrast CT Chest W/O Contrast CT Head/Brain W/O Contrast CT Thoracic Spine W/O Contrast US Doppler Ext Upper Venous Left XR Hip w/Pelvis 2-3 View Right Primary Care Provider Bassem Walters MD Advance Directive Health Care Proxy on File Yes - Health Care Proxy Yes - MOLST Discharge Vitals Temperature: 98.5 DegF Height: 163 cm Pulse Rate: 68 bpm Weight: 61.5 kg Respiratory Rate: 18 br/min Body Mass Index: 23.15 kg/m2 Systolic Blood Pressure:??166 mm Hg??High Body surface area: 1.67 Diastolic Blood Pressure: 73 mm Hg ?? Oxygen Saturation: 100 % ?? Studies Pending All tests and labs ordered during this hospital stay have been completed unless listed below. Pleasediscuss all pending results with your provider listed above in these instructions. ?? C-Arm < 1 Hour What to do next Instructions From Your Doctor Discharge Orders Scheduled Follow-Up Appointments Monday 2:05 PM EDT ?? With: Sedrick GORMAN, Raissa Corbin Where: [facility] [address] [place] [address]- You Need to Schedule the Following Appointments Follow Up with??Bassem Walters MD When??Within 1 week Where: ?? Follow Up with??Mauricio GORMAN, Leonid Lim When??Within 1 week Why: 1 wk follow up to discuss need for possible fistula ligation if swelling doesn't improve Where: [address] [place] [address] [address] [facility] [place] [address]- Discharge Medications TRACEY HEARN :1950 Visit Date:10/01/2022 Medications: Please continue your medications until treatment is completed or stopped by your provider. Medications not listed below should be discontinued. Discuss any questions related to medications with your provider. What How Much When Instructions Next Dose Changed Oxycodone (oxyCODONE 5 mg oral tablet) 0.5 tab(s) Oral Every 6 hours as needed for Pain , Severe Duration: 7 Days Pickup at [facility] last dose given at 1702 Changed Sevelamer (sevelamer carbonate 800 mg oral tablet) 2 tab(s) Oral Twice a day Unchanged Acetaminophen (acetaminophen 325 mg oral tablet) 2 tab(s) Oral Every 6 hours as needed for pain/fever >100F Unchanged Amlodipine (amLODIPine 10 mg oral tablet) 1 tab(s) Oral Daily Unchanged apixaban (Eliquis 2.5 mg oral tablet) 1 tab(s) Oral Twice a day Unchanged Aspirin (aspirin 81 mg oral delayed release tablet) 1 tab(s) Oral Daily Unchanged Atorvastatin (atorvastatin 80 mg oral tablet) 1 tab(s) Oral Daily at Bedtime Unchanged Bisacodyl (bisacodyl 10 mg rectal suppository) 1 suppository(ies) Per rectum Daily as needed for for constipation if no BM in 3 days ?? Unchanged Carvedilol (carvedilol 6.25 mg oral tablet) 1 tab(s) Oral Twice a day Unchanged Clonidine (cloNIDine 0.2 mg/ 24 hr transdermal film, extended release) 1 patch(es) Topically Every week on Monday ?? Unchanged Lisinopril (lisinopril 20 mg oral tablet) 1 tab(s) Oral Daily Unchanged Loperamide (loperamide 2 mg oral tablet) 1 tab(s) Oral Daily as needed for as needed Unchanged Polyethylene Glycol 3350 (MiraLax oral powder for reconstitution) 17 gram Oral Daily as needed for Constipation dissolve in water before taking ?? Unchanged Sodium Biphosphate-Sodium Phosphate (Fleet Enema 19 gm-7 gm rectal enema) 1 Each Per rectum Once as needed for for constipation Unchanged Trazodone (traZODone 100 mg oral tablet) 1 tab(s) Oral Daily at Bedtime Pharmacy Information [facility] 3: [address], [place] [id number] [phone] Test Results Below is a partial list of the most recent Laboratory test results done prior to this discharge. You may have had other tests and procedures not included in this list. Please discuss all test results with your provider. Basic Metabolic Panel (10/02/2022) ???Sodium - 138 mmol/L???Potassium - 4.5 mmol/L???Chloride - 100 mmol/L???Bicarbonate Level - 29 mmol/L???Anion Gap - 9???Glucose Level - 77 mg/dL???BUN - 23 mg/dL???Creatinine-Blood - 3.8 mg/dL???Estimated GFR Creatinine - 12 ML/MIN/1.73 M2???Calcium - 8.2 mg/dL Calcium Ionized (10/01/2022) ???Calcium, Ionized pH Corrected - 1.13 mmol/L CBC (10/03/2022) ???WBC - 7.1 k/mm3???RBC - 2.96 m/mm3???Hgb - 9.0 Gm/dL???Hct - 29.2 %???MCV - 98.6 femtoliters???MCH - 30.4 pg???MCHC - 30.8 g/dL???Platelet Count - 103 k/mm3???RDW-SD - 57.6 femtoliters???MPV - 11.1 femtoliters???Nucleated RBC (Automated) - 0.0 #/100 WBC'S???Abs. NRBC - 0.0 k/mm3 CBC w/ Differential (10/01/2022) ???WBC - 6.0 k/mm3???RBC - 3.98 m/mm3???Hgb - 12.1 Gm/dL???Hct - 38.5 %???MCV - 96.7 femtoliters???MCH - 30.4 pg???MCHC - 31.4 g/dL???Platelet Count - 124 k/mm3???RDW-SD - 54.4 femtoliters???MPV - 9.9 femtoliters???Nucleated RBC (Automated) - 0.0 #/100 WBC'S???Abs. NRBC - 0.0 k/mm3???Abs. Neut - 3.9 k/ mm3???Abs. Lymph - 1.5 k/mm3???Abs. [place] - 0.5 k/mm3???Abs. Eo - 0.1 k/mm3???Abs. Baso - 0.1 k/mm3???Neut % - 65.0 %???Lymph % - 24.3 %???Charles Mix % - 7.9 %???Eos % - 1.7 %???Baso % - 0.8 %???Imm Gran - 0.3 %???Abs. Imm Gran - 0.0 k/mm3 Comprehensive Metabolic Panel (10/01/2022) ???Sodium - 139 mmol/L???Potassium - 4.1 mmol/L???Chloride - 98 mmol/L???Bicarbonate Level - 29 mmol/L???Anion Gap - 12???Glucose Level - 95 mg/dL???BUN - 18 mg/dL???Creatinine-Blood - 2.9 mg/dL???Estimated GFR Creatinine - 17 ML/MIN/1.73 M2???Calcium - 8.7 mg/dL???Protein, Total - 7.2 Gm/dL???Albumin- 4.0 Gm/dL???AG Ratio - 1.3???Alkaline Phosphatase - 91 units/L???AST (SGOT) - 14 units/L???ALT (SGPT) - 9 units/L???Bilirubin, Total - 0.3 mg/dL COVID-19 (2019 Novel Coronavirus) PCR (10/03/2022) ???COVID-19 PCR Specimen Source - NASAL???COVID-19 PCR Result - NEGATIVE COVID-19, RSV, and Flu A/B, Rapid PCR (10/01/2022) ???Influenza A PCR - NEGATIVE???Influenza B PCR - NEGATIVE???RSV PCR - NEGATIVE???COVID-19 PCR Specimen Source - NASAL???COVID-19 PCR Result - NEGATIVE CPK Total Only (10/01/2022) ???CK, Total - 34 units/L Creatinine (10/04/2022) ???Creatinine-Blood - 5.8 mg/dL???Estimated GFR Creatinine - 7 ML/MIN/1.73 M2 Electrolytes (10/04/2022) ???Sodium - 134 mmol/L???Potassium - 5.8 mmol/L???Chloride - 96 mmol/L???Bicarbonate Level - 28 mmol/L???Anion Gap - 10 Hgb + Hct (10/04/2022) ???Hgb - 8.9 Gm/dL???Hct - 28.7 % INR (10/03/2022) ???INR - 1.0???Protime (PT) - 11.1 seconds Magnesium Level (10/02/2022) ???Magnesium - 2.0 mg/dL Type and Screen (10/02/2022) ???Blood Type - B Positive???Antibody Screen - Positive Allergies (NKA means No Known Allergies) Adderall Duloxetine??(diarrhea) atenolol??(Cardiac Palpitations) doxycycline Problems Active Problems??(26) Allergic rhinitis?? Anxiety state NOS?? Atrial fibrillation?? CABG (Coronary artery bypass grafting) planned?? CAD in [place] artery?? Chronic generalized pain?? 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 Chronic kidney disease (CKD) stage G3b/A3?? Depression, major?? ESRD - End stage renal disease?? KATHY (generalized anxiety disorder)?? Gout?? Heart failure with preserved ejection fraction?? History of smoking - quit 1979?? Hyperlipidemia?? Hypertension?? Hypertensive nephropathy?? Insomnia?? Ischemic cardiomyopathy?? 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 OA (osteoarthritis) of knee - both knees?? Osteoarthritis of lumbar spine?? Osteopenia?? Peripheral neuropathy?? Rectal prolapse?? Vitamin D deficiency?? Education Materials Below is the list of Educational Leaflet Providered with your Discharge Instructions. Valuables and Belongings I fully understand and agree that [facility] accepts no responsibility for all my personal [...] to send valuables and belongings home. ?? Possessions released to: metal bracelet and dentures under stretcher, pt also has glasses, cell phone, pajama bottoms, earrings, phone party plan demonstrator Date for Pt to Sign Valuables/Belongings: 10/03/22 20:06:00 ?? Other Discharge Information ?? Wound Assessment?? Wound Assessment?? Wound Location I: Head Wound Type I: Other: 3 [place] to back of head s/p fall Wound I, Present on Admission: Yes ?? Case Management Discharge Plan?? Discharge Plan?? Discharge Agency Information?? Discharge Level of Care at Discharge: Homehealth/VNA Agency Manager Medical #1: intake Discharge VNA/Hospice/Home Care: [facility] Service Categories #1: Physical Therapy, Senior Living ?? Service Comments #1: the visiting nurse will see you at home 1-2 days after discharge ?? Pulmonary Rehab Status?? Pulmonary Rehab Discharge Status?? [...] are strongly encouraged to quit. Please call [facility] at [phone] or [phone] ([phone]) or log in to [email or web address] for referrals to smoking cessation programs. ?? The National Suicide Prevention Hotline is available 06/03 if you or someone you know needs to find areason to keep living. By calling 3-147-552-VILOOP (7327) you'll be connected to a skilled, trained counselor at a crisis center in your area. INPATIENT DISCHARGE INSTRUCTIONS SIGNATURE PAGE TRACEY HEARN Location:[facility] Registration Date and Time:10/01/2022 18:51 EST Primary Care Physician: Bassem Walters MD, TRACEY SIMEON, have received the above patient education materials/instructions and have verbalized understanding. If ambulance or transport services are being used I further acknowledge being givena choice of service. ?? If you need to contact me, please call me at this number: . Patient/Rendering Equipment Tender Name: Patient/Rendering Equipment Tender Signature: Relationship to Patient: Witness Name/Signature: Date: Debbie Perez RN: PERFORM Event Display: Patient Education Leaflets Authored Date: [id number] Fistulagram Discharge Insturctions ?? 142 FISTULOGRAM DISCHARGE INSTURCTIONS ?? You had a fistulogram today. A fistulogram is an X-ray procedure to look at the blood flow and check for blood clots or other blockages in your fistula. ??? If you received sedation, the sedation you received during your procedure is still in your system. Therefore, we would like you to take it easy the rest of the day and evening. Do not drive and avoid drinking alcohol. ?? ACTIVITY ??? You may resume your normal activities in 24 hours unless instructed otherwise. ??? Do not drivefor 24 hours. ??? Do not lift anything greater that 10 lbs for 24 hours. ??? Resume your usual dialysis schedule unless instructed otherwise. ?? MEDICATIONS ??? Resume your pre-hospitalization medications unless instructed otherwise. ??? If you take Glucophage (Metformin), do not take it until you have your blood drawn and you receive instruction from your physician that it is safe to restart. ??? You may take over the counter medications such as Acetaminophen (Tylenol) or Ibuprofen (Advil) for minor discomfort, if you are not otherwise restricted from taking these medications. ?? DIET ??? Resume your pre-hospitalization diet. ?? CARE OF YOUR PUNCTURE SITE ??? You may remove the bandage the following day. ??? Avoid a hot bath for 24 hours. ??? Keep the site clean and dry. ??? You may have a skin suture present at the access site. If so, your dialysis nurse can remove this in 2-3 days. ??? Call your physician immediately if you are experiencing any of the following: ??? Bleeding or swelling at the catheter puncture site. Apply pressure with your fingerto stop the bleeding. If the bleeding does not stop, go to the Emergency Room or call 911 for assistance. ??? Your foot or hand becomes cold, blue, numb, painful or extremely swollen. ?? If you need to schedule a follow up appointment or have a question for a physician, please call [facility] Sched[facility]Access Services at [phone] and press option 1 for Heart &&Vascular. ?Debbie Perez RN: PERFORM Event Display: Patient Education Leaflets Authored Date: [id number] Fistulagram Discharge Insturctions ?? 142 FISTULOGRAM DISCHARGE INSTURCTIONS ?? You had a fistulogram today. A fistulogram is an X-ray procedure to look at the blood flow and check for blood clots or other blockages in your fistula. ??? If you received sedation, the sedation you received during your procedure is still in your system. Therefore, we would like you to take it easy the rest of the day and evening. Do not drive and avoid drinking alcohol. ?? ACTIVITY ??? You may resume your normal activities in 24 hours unless instructed otherwise. ??? Do not drivefor 24 hours. ??? Do not lift anything greater that 10 lbs for 24 hours. ??? Resume your usual dialysis schedule unless instructed otherwise. ?? MEDICATIONS ??? Resume your pre-hospitalization medications unless instructed otherwise. ??? If you take Glucophage (Metformin), do not take it until you have your blood drawn and you receive instruction from your physician that it is safe to restart. ??? You may take over the counter medications such as Acetaminophen (Tylenol) or Ibuprofen (Advil) for minor discomfort, if you are not otherwise restricted from taking these medications. ?? DIET ??? Resume your pre-hospitalization diet. ?? CARE OF YOUR PUNCTURE SITE ??? You may remove the bandage the following day. ??? Avoid a hot bath for 24 hours. ??? Keep the site clean and dry. ??? You may have a skin suture present at the access site. If so, your dialysis nurse can remove this in 2-3 days. ??? Call your physician immediately if you are experiencing any of the following: ??? Bleeding or swelling at the catheter puncture site. Apply pressure with your fingerto stop the bleeding. If the bleeding does not stop, go to the Emergency Room or call 911 for assistance. ??? Your foot or hand becomes cold, blue, numb, painful or extremely swollen. ?? If you need to schedule a follow up appointment or have a question for a physician, please call Diagnostic Scheduling-Access Services at [phone] and press option 1 for Heart &&Vascular. ?BOBSPliu , SKYLER S: Kahlil Pelaez MD: VERIFY Event Display: Result: Authored Date: C-Arm < 1 Hour INDICATION: Reason: LEFT ARM FISTULA COMPARISONS: None TECHNIQUE: Fluoroscopy support was provided. There was no radiologist in attendance. FLUOROSCOPY TIME: 20.9 seconds TECHNOLOGIST TIME: 30 minutes FINDINGS: Fluoroscopy support was provided. There was no radiologist in attendance. IMPRESSION: See above. WSN: [id number] Ordering Physician: Leonid Martínez Dictated By: Kahlil Perry MD Dictated Date/Time: 10/04/22 7:23 pm Reviewed By: Kahlil Perry MD Signed By: Kahlil Perry MD Signed Date/Time: 10/04/22 7:23 pm Transcribed By: JOHN Transcribed Date/Time: 10/04/22 6:52 pm Event Display: VL Access Graft Left Authored Date: [id number] Status:Open Vascular Dialysis Access Duplex Study Demographics Procedure Information Patient name: NADIYA WEBB Procedure date: 10/03/2022 10:51 AM Corporate Proc. sub type: Dialysis: Duplex Scan for Hemodialysis Access Left. Gender: Female Accession No: [id number] Date of : 1950 Account No: [id number] Age: 72 year(s) Patient status: Routine Admit Status: Inpatient Procedure Staff Probe: L9-3 Ordering physician: Avi Puente MD Technical quality: Adequate visualization Referring Physician: Avi Puente MD Not on Staff Referring MD Facility: [facility] Admitting Physician: Gilbert Gates DO Study location: [facility] Vascular Lab Attending Physician: Wicho Poon MD Procedure consent obtained: Ortho Rn: Marina Low [facility] No Interpreting physician: Louis Zuñiga MD Indications Complication due to renal dialysis device. AV Fistulas Arterial Anastomosis Site Venous Anastomosis Site Implantation Date Conduit Type Volume PSV EDV AP Diam Depth Flow Location (cm/s) (cm/s) (cm) (cm) (ml/min) Inflow Artery 400 189 Arterial Anastomosis 510 253 3.9 2.4 1228 Prox vein 469 213 1.1 1.3 1885 Mid Vein 250 103 1.4 0.5 3435.9 Distal Vein 95.9 51.1 0.8 0.5 1203.3 UE Arterial Findings Right Left Location PSV (cm/s) EDV (cm/s) AP Diam (cm) PSV (cm/s) EDV (cm/s) AP Diam (cm) Prox Brachial 272 122 Mid Brachial 307 173 Dist Brachial 400 189 Prox Radial 47.5 Mid Radial 70.3 Dist Radial 47.8 Prox Ulnar 37.7 Mid Ulnar 31.4 Dist Ulnar 30 Physician Conclusions Summary: Left side: The Brachial -Cephalic AVF appears patent with measurements detailed above. There is an area in the mid/ distal upper arm that has an appearance suggestive of a partially thrombosed pseudoaneurysm of the AVF measuring approximately 4.7 x 2.6 x 1.8 cm. The neck measures 0.2 cm in width and length with bi directional flow with a velocity of 136 cm/s. There is a linear echogenic reflector in a vein branch at the junction with the AVF in the antecubital fossa, correlate with the patient's surgical history. The outflow Cephalic and Subclavian veins appear patent. The visualized arteries appear patent with antegrade flow. Snapshots Event Display: VL Access Graft Left Authored Date: [employer] , CIS S: TRANSCRIBE Kirk Cardoza MD: VERIFY Event Display: Result: Authored Date: [id number] US Doppler Ext Upper Venous Left Hx of Present Illness: unwitnessed fall. Denies LOC. Lac to back of head. actively bleeding on eliquis. Pt also had dialysis fistula on left arm infiltrate today.; Reason: Other:; Pain in limb; Clinical Question(s): Thrombosis COMPARISON: No pertinent prior exams available for comparison.. IMAGING TECHNIQUE: Ultrasound examination of the upper extremity deep venous system was performed using grayscale, color, and spectral wave analysis including response to compression. Assessment includes the contralateral jugular and subclavian vein. FINDINGS: Internal jugular vein: Not accessible due to patient's cervical collar and therefore not assessed. Subclavian vein: Only visualized laterally. Visualized portion is patent. No thrombosis. Axillary vein: Patent. No thrombosis. Brachial vein: Patent. No thrombosis. Basilic vein: Patent. No thrombosis. Cephalic vein: Patent.. There is a focal outpouching of the cephalic vein with swirling internal blood and peripheral thrombus. It is unclear if this corresponds to the patient's AV fistula with peripheral thrombus or a pseudoaneurysm. Contralateral internal jugular vein: Not accessible due to patient's cervical collar and therefore not assessed. Contralateral subclavian vein: Not accessible due to patient's cervical collar and therefore not assessed. IMPRESSION: 1. Suboptimal assessment of the upper approximately veins due to non imaged internal jugular veins bilaterally and suboptimal assessment of the subclavian veins bilaterally. 2. There is a focal outpouching of the cephalic vein with swirling internal blood and peripheral thrombus. It is unclear if this corresponds to the patient's AV fistula with peripheral thrombus or a pseudoaneurysm. Further assessment with dedicated vascular ultrasound of this area and the AV fistula is recommended WSN: [id number] Ordering Physician: Cynthia Rivers Dictated By: Kirk Cardoza MD Dictated Date/Time: 10/01/22 3:25 pm Reviewed By: Kirk Cardoza MD Signed By: Kirk Cardoza MD Signed Date/Time: 10/01/22 3:25 pm Transcribed By: JOHN Transcribed Date/Time: 10/01/22 3:10 pm Hospital Progress note Debbie Perez RN: PERFORM, SIGN, VERIFY Event Display: Progress Note Hospital Authored Date: Patient: TRACEY HEARN Age: 72 years Sex: Female : 1950 Associated Diagnoses: None Author: Debbie Perez RN Findings Evaluation Discharge pt accomapnied by her daughter, discharge instruction given. . Discharge Information Case Management Discharge Plan : Case Management Discharge Plan Data 10/04/2022 18:52 EST Discharge Level of Care at Discharge Home/Jail/Foster Care [facility]charge [facility] [place] 10/04/2022 12:19 EST Discharge Level of Care at Discharge Homehealth/VNA Discharge VNA/Hospice/Home Care [facility] [place] Agency Manager Medical #1 intake Service Categories #1 Physical Therapy, Senior Living Service Comments #1 the visiting nurse will see you at home 1-2 days after dischargeSBrittani mensah LPN: PERFORM, SIGN, VERIFY Event Display: Progress Note Hospital Authored Date: Patient: TRACEY HEARN Age: 72 years Sex: Female : 1950 Associated Diagnoses: None Author: Brittani Elizabeth LPN Findings Narrative/Incidental Patient A & O x 3. Lung sound clear. Abdomen soft, and non-tender. Pedal pulses present. Pt leftthe floor for dialysis treatment. Dr. Jeffrey called to check if pt had been discharged, [facility] and would be discharged on her return. This show card writer spoke with Jo Ann, pt's daughter and notified her of this. She stated that she would pick her up at 7 pm. PRN Oxycodone given for c/o pain 01/21, on her return to the floor, and was effective. IV to (R) hand removed..Beatris Gaytan RN: PERFORM, SIGN, VERIFY Event Display: Progress Note [facility] Authored Date: Patient: TRACEY HEARN Age: 72 years Sex: Female : 1950 Associated Diagnoses: None Author: Beatris Gaytan RN Findings Narrative/Incidental Patient received 3 hours of hemodialysis treatment due to patient census. During treatment 2.7L net was able to be removed with -12.4% change in patient crit- line. Dialysis catheter dressing changed per protocol, no signs or symptoms of infection noted upon change. Post HD vitals include blood pressure of 142/69, pulse of 69, respirations of 20 and temperature of 98.0. . CT Thoracic spine WO contrast [facility] , CIS S: TRANSCRIBE Kirk Cardoza MD: VERIFY Event Display: Result: Authored Date: CT Chest W/O Contrast, CT Thoracic Spine W/O Contrast INDICATION: Hx of Present Illness: unwitnessed fall. Denies LOC. Lac to back of head. Actively bleeding on eliquis. Pt also had dialysis fistula on left arm infiltrate today.; Reason: Other:; trauma fall; Clinical Question(s): Interstitial Alveolar Infiltration TECHNIQUE: Helical CT scan of the chest without IV contrast, formatted in 3 planes. The original dataset was reconstructed with a small field of view around the thoracic spine utilizing soft tissue andbone algorithm reconstructions in 3 planes. Weight-based protocol was performed using automatic exposure control. CTDIvol Body: 8.50 mGy, DLP Body: 311 mGy*cm. COMPARISON: CT chest without contrast 12/18/2020. FINDINGS: Index Clerk view findings, lines and tubes: Large bore right IJ tunneled dialysis catheter terminating in the right atrium. Trachea and airways: Patent without evidence of tracheal or endobronchial lesion. Lungs and pleura: There is a masslike consolidative opacity involving the posterior left lower lobe spanning 2.7 x 2.0 x 2.2 cm. Adjacent compressive atelectasis in the left lower lobe from the small left pleural effusion. Trace fluid in the left major fissure. Small right pleural effusion with adjacent right basilar atelectasis. Mild/moderate centrilobular and paraseptal emphysema. Ill-defined reticulation and groundglass opacity involving the anterior aspect of the left upper lobe. Mediastinum and cherie: No mass or hematoma. No mediastinal or hilar lymphadenopathy. No esophageal abnormality. Visualized thyroid gland is atrophic. Heart: Mild cardiomegaly. No pericardial effusion. Prior CABG. Moderate coronary artery calcifications. Aorta: Moderate vascular calcification but no aneurysm. Moderate calcification of the aortic valve. Mild mitral annular calcifications Pulmonary arteries: Normal caliber. Chest wall soft tissues: Generalized chest wall anasarca. Diaphragm: Intact. Upper abdomen: No acute processes the upper abdomen. Partially imaged cysts in the upper pole of theleft kidney. Bones: No acute abnormality. No acute displaced rib fractures. Old healed posterolateral left-sided rib fractures. Severe degenerative changes of the left glenohumeral joint. Prior right shoulder arthroplasty. Moderate multilevel degenerative changes of the thoracic spine. Unchanged compression deformity of the superior endplate of T12. Kyphosis of the thoracic spine. Status post median sternotomy. IMPRESSION: 1. No CT evidence of an acute traumatic injury to the chest or thoracic spine. 2. Masslike and solid opacity involving the posterior left lower lobe measuring up to 2.7 cm, new from the prior exam. The appearance is suspicious for a neoplastic process, though a consolidated pneumonia or round atelectasis could have a similar appearance. Recommend assessment with PET-CT and/or contrast enhanced chest CT. 3. Small bilateral pleural effusions, left greater than right with associated adjacent compressive atelectasis of both lower lobes. 4. Mild cardiomegaly. 5. Ill-defined reticulation and groundglass opacity involving the anterior aspect of the left upper lobe is most likely infectious or inflammatory in etiology. A critical result message (Yellow) has been communicated via the naaya system on 10/01/2022 2:10 PM, Message ID [id number]. WSN: [id number] Ordering Physician: Cynthia Rivers Dictated By: Kirk Cardoza MD Dictated Date/Time: 10/01/22 2:10 pm Reviewed By: Kirk Cardoza MD Signed By: Kirk Carodza MD Signed Date/Time: 10/01/22 2:10 pm Transcribed By: JOHN Transcribed Date/Time: 10/01/22 1:[address] Chest WO contrast [facility] , CIS S: TRANSCRIBE Kirk Cardoza MD: VERIFY Event Display: Result: Authored Date: [id number] CT Chest W/O Contrast, CT Thoracic Spine W/O Contrast INDICATION: Hx of Present Illness: unwitnessed fall. Denies LOC. Lac to back of head. Actively bleeding on eliquis. Pt also had dialysis fistula on left arm infiltrate today.; Reason: Other:; trauma fall; Clinical Question(s): Interstitial Alveolar Infiltration TECHNIQUE: Helical CT scan of the chest without IV contrast, formatted in 3 planes. The original dataset was reconstructed with a small field of view around the thoracic spine utilizing soft tissue andbone algorithm reconstructions in 3 planes. Weight-based protocol was performed using automatic exposure control. CTDIvol Body: 8.50 mGy, DLP Body: 311 mGy*cm. COMPARISON: CT chest without contrast 12/18/2020. FINDINGS: Index Clerk view findings, lines and tubes: Large bore right IJ tunneled dialysis catheter terminating in the right atrium. Trachea and airways: Patent without evidence of tracheal or endobronchial lesion. Lungs and pleura: There is a masslike consolidative opacity involving the posterior left lower lobe spanning 2.7 x 2.0 x 2.2 cm. Adjacent compressive atelectasis in the left lower lobe from the small left pleural effusion. Trace fluid in the left major fissure. Small right pleural effusion with adjacent right basilar atelectasis. Mild/moderate centrilobular and paraseptal emphysema. Ill-defined reticulation and groundglass opacity involving the anterior aspect of the left upper lobe. Mediastinum and cherie: No mass or hematoma. No mediastinal or hilar lymphadenopathy. No esophageal abnormality. Visualized thyroid gland is atrophic. Heart: Mild cardiomegaly. No pericardial effusion. Prior CABG. Moderate coronary artery calcifications. Aorta: Moderate vascular calcification but no aneurysm. Moderate calcification of the aortic valve. Mild mitral annular calcifications Pulmonary arteries: Normal caliber. Chest wall soft tissues: Generalized chest wall anasarca. Diaphragm: Intact. Upper abdomen: No acute processes the upper abdomen. Partially imaged cysts in the upper pole of theleft kidney. Bones: No acute abnormality. No acute displaced rib fractures. Old healed posterolateral left-sided rib fractures. Severe degenerative changes of the left glenohumeral joint. Prior right shoulder arthroplasty. Moderate multilevel degenerative changes of the thoracic spine. Unchanged compression deformity of the superior endplate of T12. Kyphosis of the thoracic spine. Status post median sternotomy. IMPRESSION: 1. No CT evidence of an acute traumatic injury to the chest or thoracic spine. 2. Masslike and solid opacity involving the posterior left lower lobe measuring up to 2.7 cm, new from the prior exam. The appearance is suspicious for a neoplastic process, though a consolidated pneumonia or round atelectasis could have a similar appearance. Recommend assessment with PET-CT and/or contrast enhanced chest CT. 3. Small bilateral pleural effusions, left greater than right with associated adjacent compressive atelectasis of both lower lobes. 4. Mild cardiomegaly. 5. Ill-defined reticulation and groundglass opacity involving the anterior aspect of the left upper lobe is most likely infectious or inflammatory in etiology. A critical result message (Yellow) has been communicated via the naaya system on 10/01/2022 2:10 PM, Message ID [id number]. WSN: [id number] Ordering Physician: Cynthia Rivers Dictated By: Kirk Cardoza MD Dictated Date/Time: 10/01/22 2:10 pm Reviewed By: Kirk Cardoza MD Signed By: Kirk Cardoza MD Signed Date/Time: 10/01/22 2:10 pm Transcribed By: JOHN Transcribed Date/Time: 10/01/22 1:[address] Cervical spine WO contrast [facility] , CIS S: TRANSCRIBE Wiliam Gordillo MD: VERIFY Maya Singh MD: SIGN Event Display: Result: Authored Date: [id number] CT Head/Brain W/O Contrast, CT Cervical Spine W/O Contrast INDICATION: Hx of Present Illness: unwitnessed fall. Denies LOC. lac to back of head. actievly bleeding on eliquis. Pt also had dialysis fistula on left arm infiltrate today.; Reason: Trauma; Clinical Question(s): Hematoma TECHNIQUE: Noncontrast head CT using axial technique was reconstructed in axial and coronal planes. Noncontrast spiral CT through the cervical spine was formatted in 3 planes. Automatic tube modulationwas used for the cervical spine and iterative dose reconstruction was used for both the head and cervical spine to optimize scan parameters and image quality. CTDIvol Body: 9.90 mGy, DLP Body: 229 mGy*cm. CTDIvol Head: 41.00 mGy, DLP Head: 672 mGy*cm. COMPARISON: Multiple priors, most recent CT head 05/23/2022 FINDINGS: Index Clerk View Findings, Lines and Tubes: Partially imaged right IJ dialysis catheter. BRAIN AND EXTRA-AXIAL SPACES: No parenchymal hemorrhage, midline shift, or mass effect. Young-white matter differentiation is well preserved. Chronic lacunar infarcts within the bilateral basal ganglia and thalami. No acute infarct.Negative insular ribbon sign. Atherosclerotic vascular calcification of the carotid arteries but negative hyperdense vessel sign. Focal dilation of the left vertebral artery with peripheral calcification, similar to the prior study. Mild prominence of the ventricles and sulci consistent with parenchymal volume loss. Moderate low-density white matter changes. No subarachnoid hemorrhage. No subdural or epidural collection. CALVARIUM, SKULL BASE, AND SOFT TISSUES: No fractures or suspicious bony lesions. Mild mucosal thickening of the right maxillary sinus. The mastoid air cells are clear. Visualized orbits and globes are intact. 4.7 cm soft tissue swelling the right parieto-occipital region with overlying cutaneous samantha. CERVICAL SPINE: No fracture. No acute osseous abnormalities. Exaggerated cervical lordosis. Slight retrolisthesis of C5 on C6. No locked or perched facet. Moderate multilevel degenerative disc space narrowing and end plate irregularity, most prominent at C4-C7. OTHER BONES: No acute abnormality. CERVICAL SOFT TISSUES AND LUNG APICES: Normal soft tissues. Mild paraseptal emphysema. Small left effusion. IMPRESSION: 1. No acute abnormality of the head or cervical spine. 2. Soft tissue swelling in the right parietal scalp. I have personally reviewed the images and I agree with this report. WSN: [id number] Ordering Physician: Cynthia Rivers Dictated By: Maya Singh MD Dictated Date/Time: 10/01/22 2:55 pm Reviewed By: Wiliam Gordillo MD Signed By: Wiliam Gordillo MD Signed Date/Time: 10/01/22 3:00 pm Transcribed By: JOHN Transcribed Date/Time: 10/01/22 1:[address] Head WO contrast [facility] , CIS S: TRANSCRIBE Wiliam Gordillo MD: VERIFY Maya Singh MD: SIGN Event Display: Result: Authored Date: [id number] CT Head/Brain W/O Contrast, CT Cervical Spine W/O Contrast INDICATION: Hx of Present Illness: unwitnessed fall. Denies LOC. lac to back of head. actievly bleeding on eliquis. Pt also had dialysis fistula on left arm infiltrate today.; Reason: Trauma; Clinical Question(s): Hematoma TECHNIQUE: Noncontrast head CT using axial technique was reconstructed in axial and coronal planes. Noncontrast spiral CT through the cervical spine was formatted in 3 planes. Automatic tube modulationwas used for the cervical spine and iterative dose reconstruction was used for both the head and cervical spine to optimize scan parameters and image quality. CTDIvol Body: 9.90 mGy, DLP Body: 229 mGy*cm. CTDIvol Head: 41.00 mGy, DLP Head: 672 mGy*cm. COMPARISON: Multiple priors, most recent CT head 05/23/2022 FINDINGS: Index Clerk View Findings, Lines and Tubes: Partially imaged right IJ dialysis catheter. BRAIN AND EXTRA-AXIAL SPACES: No parenchymal hemorrhage, midline shift, or mass effect. Young-white matter differentiation is well preserved. Chronic lacunar infarcts within the bilateral basal ganglia and thalami. No acute infarct.Negative insular ribbon sign. Atherosclerotic vascular calcification of the carotid arteries but negative hyperdense vessel sign. Focal dilation of the left vertebral artery with peripheral calcification, similar to the prior study. Mild prominence of the ventricles and sulci consistent with parenchymal volume loss. Moderate low-density white matter changes. No subarachnoid hemorrhage. No subdural or epidural collection. CALVARIUM, SKULL BASE, AND SOFT TISSUES: No fractures or suspicious bony lesions. Mild mucosal thickening of the right maxillary sinus. The mastoid air cells are clear. Visualized orbits and globes are intact. 4.7 cm soft tissue swelling the right parieto-occipital region with overlying cutaneous samantha. CERVICAL SPINE: No fracture. No acute osseous abnormalities. Exaggerated cervical lordosis. Slight retrolisthesis of C5 on C6. No locked or perched facet. Moderate multilevel degenerative disc space narrowing and end plate irregularity, most prominent at C4-C7. OTHER BONES: No acute abnormality. CERVICAL SOFT TISSUES AND LUNG APICES: Normal soft tissues. Mild paraseptal emphysema. Small left effusion. IMPRESSION: 1. No acute abnormality of the head or cervical spine. 2. Soft tissue swelling in the right parietal scalp. I have personally reviewed the images and I agree with this report. WSN: [id number] Ordering Physician: Cynthia Rivers Dictated By: Maya Singh MD Dictated Date/Time: 10/01/22 2:55 pm Reviewed By: Wiliam Gordillo MD Signed By: Wiliam Gordillo MD Signed Date/Time: 10/01/22 3:00 pm Transcribed By: JOHN Transcribed Date/Time: 10/01/22 1:57 pm XR Pelvis and Hip - right Views [facility] , CIS S: Chris Ramos MD: VERIFY Event Display: Result: Authored Date: [id number] XR Hip w/Pelvis 2-3 View Right Hx of Present Illness: unwitnessed fall. Denies LOC. lac to back of head. actively bleeding on eliquis. Pt also had dialysis fistula on left arm infiltrate today.; Reason: Trauma; With Pain; Clinical Question(s): Fracture COMPARISON: 06/06/2022 CT pelvis 06/26/2022 reviewed. FINDINGS: An intramedullary charity with distal locking screw is present in the proximal right femur, with 2 sliding screws extending into the femoral head, with alignment appearing anatomic. The hardware appears intact. Some irregular linear lucency was sclerotic margins is seen consistent with incomplete healing of the intertrochanteric fracture, particularly through the lesser trochanter. There is no evidence of acute fracture or dislocation. Normal hips and sacroiliac joints. Mild arterial calcification. IMPRESSION: Satisfactory appearance of the right hip hardware with no acute fracture. Some fracture lucency remains visible through the lesser trochanter with sclerotic margins suggestive of ongoing healing. WSN: [id number] Ordering Physician: Cynthia Rivers Dictated By: Chris Kauffman MD Dictated Date/Time: 10/01/22 6:44 pm Reviewed By: Chris Kauffman MD Signed By: Chris Kauffman MD Signed Date/Time: 10/01/22 6:44 pm Transcribed By: CSMatthew Transcribed Date/Time: 10/01/22 6:39 pm Patient Care team information Care Team PersonnelName: Quan Virgen RN Position: S RN Member Role: Primary Care Nurse Name: Rachel Sotelo Position: S RN Member Role: Primary Care Nurse Name: Susana Chaney LPN Position: [facility] RN Member Role: Primary Care Nurse Name: Betty Cabrera NP Position: [facility] Associate Professional Member Role: Primary Care Nurse Address: Address: [address] [place] [address] Name: Uma Ndiaye Position: [facility] Outreach Member Role: Lifetime Consulting Physician Name: Bassem Walters MD Position: [facility] Renal MD Member Role: PCP Address: Address: [address] [place] [address] [facility] [address] Name: Audrey Tillman NP Position: [facility] Associate Professional Member Role: Lifetime Consulting Provider Address: Address: [address] [place] [address] [facility] [address] Name: Kirk Morse DO Position: [facility] Renal MD Member Role: Lifetime Consulting Physician Address: Address: [address] [place] [address] [facility] [address] Name: Uma Valdovinos Position: [facility] Outreach Member Role: Lifetime Consulting Physician Name: Janelle Arora RN Position: [facility] RN Member Role: Primary Care Nurse Name: Prasanna Belle III, RN Position: [facility] RN Member Role: Primary Care Nurse Name: Suellen Lazcano RN Position: [facility] ED RN W/OE and Tasks Member Role: Primary Care Nurse Name: Rubia Pardo LPN Position: [facility] RN Member Role: Primary Care Nurse Name: Florencio Ferreira MD Position: [facility] Renal MD Member Role: Lifetime Consulting Physician Address: Address: [address] [facility] [place] [address]- Name: Priscila López RN Position: [facility] RN Member Role: Primary Care Nurse Name: Bonnie Ann RN Position: [facility] RN Member Role: Primary Care Nurse Name: Felipa Burr RN Position: [facility] RN Member Role: Primary Care Nurse Name: Jennifer Alex RN Position: [facility] RN Member Role: Primary Care Nurse Name: Saskia Fontana RN Position: [facility] RN Member Role: Primary Care Nurse Name: Beatris Gaytan RN Position: [facility] RN Member Role: Primary Care Nurse Name: Arlin TORRES Attending Position: [facility] ED Medicine MD Name: Mohamud Escobedo Position: [facility] ED TA THUY Name: Juana Bonilla RN Position: [facility] ED RN W/OE and Tasks Member Role: Patient Care Provider Name: Alexey Martínez RN Position: [facility] RN Member Role: Patient Care Provider Care Team Related PersonsName: AUDREY HEARN Address: [address] [place] [address] Name: ABIMAEL HEARN Name: YUSUF HEARN Address: [address] [place] [address]
--- OUTSIDE RECORDS SUMMARY | 2022-10-30 13:46 | XMS_ITS | Continuity of Care Document ---
:1950 Author Organization [facility] Address [address] [place] [address]- Care Team Providers Name Role Phone Bassem Walters MD Primary Care Physician Encounter [facility] Date(s): 10/10/22 - 10/10/[address] [address] Discharge Disposition: A-D/C Home Attending Physician: Leonid [...] tetanus/diphtheria/pertussis, acel(Tdap) 09/13/12 Given 1Result Comment: [05/31/2017] [id number] Note: 1-13 STOP AND SHOP [id number] Comment: [12/31/2014 Uncharted] PUT IN TWICE Medications [...] 1:42:00 EST, ; Start Date: 06/27/22 Status: Orderedcarvedilol 6.25 [...] tablet, 10 Refills, Maintenance, 09/20/22 8:15:00 EST, [facility], 162.5, cm, 06/28/22 11:05:00 EST, Height, 56, kg, 06/28/22 10:26:00 EST, Dry Weight Start Date: 09/20/22 Status: Orderedlisinopril 20 mg oral tablet 20 mg, 1, tablet, By Mouth, Daily, Maintenance, 06/27/22 9:38:00 EST, ; Start Date: 06/27/22 Status: Orderedloperamide 2 mg oral tablet 1 tablet = 2 mg, By Mouth, Daily, PRN as needed, Maintenance, 06/27/22 9:38:00 EST, ; Start Date: 06/27/22 Status: OrderedoxyCODONE 5 mg oral tablet 5 mg, 1, tablet, By Mouth, Every 6 hours, PRN, # 7 tablet, Refills 0, Tot. Refills 0, Acute 10/13/2320:00:00 EST, Pain , Severe, 10/10/22 16:55:00 EST, Route to Pharmacy Electronically, [facility], Partial fill upon patient request if t... Start Date: 10/10/22 Stop Date: 10/13/22 Status: OrderedoxyCODONE 5 mg oral tablet 2.5 mg, 0.5, tablet, By Mouth, Every 6 hours, PRN, for 7 days, # 12 tablet, Refills 0, Tot. Refills 0, Acute 10/11/22 11:27:00 EST, Pain , Severe, 10/04/22 11:27:00 EST, Route to Pharmacy Electronically, [facility], Partial fill upon pat... Start Date: [...] Confirmed Active (CKD) stage G3b/A3 CAD in [place] artery Confirmed Active Depression, major Confirmed Active [...] Vitamin D deficiency Confirmed Active 1Quit 1978 Vital Signs Most recent to oldest 1 2 3 [Reference Range]: Height 162.56 cm 162.56 cm (10/10/22 1:19 PM) (10/06/22 3:45 PM) Weight 57.4 kg 58.64 kg (10/10/22 1:19 PM) (10/06/22 3:45 PM) Oxygen Saturation [94-100 96 % 96 % 95 % %] (10/10/22 5:30 PM) (10/10/22 5:15 PM) (10/10/22 5:0 0 PM) Pulse Rate [55-90 bpm] 60 bpm (10/10/22 1:19 PM) Body Mass Index 21.72 kg/m2 22.19 kg/m2 [18.5-24.99 kg/m2] (10/10/22 1:19 PM) (10/06/22 3:45 PM) Blood Pressure 188/84 mm Hg 180/86 mm Hg 173/76 mm Hg [90-138/55-84 mm Hg] *H* *H* *H* (10/10/22 5:30 PM) (10/10/22 5:15 PM) (10/10/22 5:0 0 PM) Respiratory Rate [16-30 13 br/min 22 br/min 32 br/mi n br/min] *L* (10/10/22 5:15 PM) *H* (10/10/22 5:30 PM) (10/10/22 5:00 PM) Temperature [96.8-100.4 98.3 DegF 99.7 DegF DegF] (10/10/22 5:00 PM) (10/10/22 1:19 PM) Mode of Delivery (Oxygen) Room air Room air Room a ir (10/10/22 6:00 PM) (10/10/22 5:30 PM) (10/10/22 5:1 5 PM) Temperature Route Temporal Temporal (10/10/22 5:00 PM) (10/10/22 1:19 PM) Dry Weight 58.64 kg (10/06/22 3:45 PM) Weight Obtained Via Standing scale Patient/family stated (10/10/22 1:19 PM) (10/06/22 3:45 PM) Dry Weight Obtained Via Patient/family stated (10/06/22 3:45 PM) Social History Social History Type Response Smoking Status Former smoker, quit more padmini n 30 days ago; Never; Other: qquit smoking 1 ppd in 1979 and then occasional 1-3 cigarettes on occasion, last cigarette prior to May; entered on: 06/27/22 Sex Note Carol Ann Gonzalez RN: PERFORM Event Display: Discharge/Transfer Note Hospital Authored Date: [id number] Nursing Discharge Note Entered On: 10/10/2022 18:15 EST Performed On: 10/10/2022 18:15 EST by Carol Ann Gonzalez RN Nursing Discharge Note 2 Discharge Time : 10/10/2022 18:05 EST Discharge Level of Care at Discharge : Home/Long Term/Foster Care Patient Left Unit Via : Wheelchair Patient Accompanied Off Unit with : Responsible adult DC Instructions Provided & Signed by Pt : Yes Patient Understands D/C Instructions : Yes Patient Instructions Discharge Signed : Yes Did Pt have Specialty Bed or Wound Vac : No Carol Ann Gonzalez RN - 10/10/2022 18:15 Carol Ann Anna RN: PERFORM Event Display: Patient Education/Instruction Authored Date: [id number] Inpatient Adult Discharge Instructions [address] [id number] Name: TRACEY HEARN : 1950 Visit: 10/10/2022 12:33:00 Current Date: 10/10/2022 17:30 Account: [id number] Inpatient Adult Discharge Instructions We would like [...] and their families. Surveys are administered by [employer] ?? If further treatment with your primary care physician or another doctor is recommended, it is important for you to keep the appointment. Call your primary care physician or return to the Emergency Department immediately if your condition worsens, fails to improve, or new symptoms develop. If you need to find a doctor, you can call [facility] for a referral at [phone] or toll free at [phone]) or log in to [email or web address].. ?? You can view and manage your care through the patient portal or by using a health care marcin of your choosing. [employer] is a website that allows you to securely view your medical information including your hospital discharge summary, office visit summaries, medications and follow-up visits. You can also request appointments, renew medications, and request access to your medical information using a health care marcin of your choosing, or just ask a question. You can enroll at [email or web address] or register during your next office visit. You have been discharged from [facility], Patient Care Unit: [facility]. If you have any questions regarding these instructions after you leave, please call us and we will be happy to assist you. [facility] Your Care Team Attending Physician Leonid Martínez MD Discharging Providers Leonid Martínez MD Reason for Admission ESRD Tests Performed Below is a partial list of the tests performed during your hospitalization. You may have had other tests and procedures not included in this list. Please discuss all test results with your provider. GLUCOSE POC CARTRIDGE HEMATOCRIT POC CARTRIDGE HEMOGLOBIN POC CARTRIDGE POTASSIUM POC CARTRIDGE SODIUM POC CARTRIDGE Primary Care Provider Bassem Walters MD Advance Directive Health Care Proxy on File Yes - Health Care Proxy Yes - MOLST Discharge Vitals Temperature: 98.3 DegF Height: 162.56 cm Pulse Rate: 60 bpm Weight: 57.4 kg Respiratory Rate:??13 br/min??Low Body Mass Index: 21.72 kg/m2 Systolic Blood Pressure:??188 mm Hg??High Body surface area: 1.61 Diastolic Blood Pressure: 84 mm Hg ?? Oxygen Saturation: 96 % ?? Studies Pending All tests and labs ordered during this hospital stay have been completed unless listed below. Pleasediscuss all pending results with your provider listed above in these instructions. ?? No incomplete studies found What to do next Instructions From Your Doctor Discharge Orders Instructions from your Care Team Please see discharge instruction sheet provided. ?? May restart Jojo jeffery. Scheduled Follow-Up Appointments Monday 2:05 PM EDT ?? With: Raissa Dubose MD Where: [facility] [address] [place] [address]- You Need to Schedule the Following Appointments Follow Up with??Leonid Martínez When?? Where: [address] [facility] [address] [facility] [place] [address]- Business (1) Follow Up with??Bassem Walters When??In 0 days Discharge Medications TRACEY HEARN :1950 Visit Date:10/10/2022 Medications: Please continue your medications until treatment is completed or stopped by your provider. Medications not listed below should be discontinued. Discuss any questions related to medications with your provider. What How Much When Instructions Next Dose Changed Oxycodone (oxyCODONE 5 mg oral tablet) 0.5 tab(s) Oral Every 6 hours as needed for Pain , Severe Duration: 7 Days Changed Oxycodone (oxyCODONE 5 mg oral tablet) 1 tab(s) Oral Every 6 hours as needed for Pain , Severe Pickup at [facility] Unchanged Acetaminophen (acetaminophen 325 mg oral tablet) 2 tab(s) Oral Every 6 hours as needed for pain/fever >100F Unchanged Amlodipine (amLODIPine 10 mg oral tablet) 1 tab(s) Oral Daily Unchanged apixaban (Eliquis 2.5 mg oral tablet) 1 tab(s) Oral Twice a day tonight Unchanged Aspirin (aspirin 81 mg oral delayed release tablet) 1 tab(s) Oral Daily Unchanged Carvedilol (carvedilol 6.25 mg oral tablet) 1 tab(s) Oral Twice a day Unchanged Clonidine (cloNIDine 0.2 mg/ 24 hr transdermal film, extended release) 1 patch(es) Topically Every week on Monday ?? Unchanged Lisinopril (lisinopril 20 mg oral tablet) 1 tab(s) Oral Daily Unchanged Loperamide (loperamide 2 mg oral tablet) 1 tab(s) Oral Daily as needed for as needed Unchanged Sevelamer (sevelamer carbonate 800 mg oral tablet) 2 tab(s) Oral Twice a day Unchanged Trazodone (traZODone 100 mg oral tablet) 1 tab(s) Oral Daily at Bedtime Pharmacy Information [facility] 3: [address] [place], [place] [id number] [phone] Test Results Below is a partial list of the most recent Laboratory test results done prior to this discharge. You may have had other tests and procedures not included in this list. Please discuss all test results with your provider. GLUCOSE POC CARTRIDGE (10/10/2022) ???Glucose (POC) POC Cartridge - 84 HEMATOCRIT POC CARTRIDGE (10/10/2022) ???Hematocrit (POC) POC Cartridge - 31 % HEMOGLOBIN POC CARTRIDGE (10/10/2022) ???Hemoglobin (POC) POC Cartridge - 10.5 Gm/dL POTASSIUM POC CARTRIDGE (10/10/2022) ???Potassium (POC) POC Cartridge - 4.5 mmol/L SODIUM POC CARTRIDGE (10/10/2022) ???Sodium (POC) POC Cartridge - 133 mmol/L Allergies (NKA means No Known Allergies) Adderall Duloxetine??(diarrhea) atenolol??(Cardiac Palpitations) doxycycline Problems Active Problems??(26) Allergic rhinitis?? Anxiety state NOS?? Atrial fibrillation?? CABG (Coronary artery bypass grafting) planned?? CAD in [place] artery?? Chronic generalized pain?? Chronic glomerulonephritis due [...] Educational Leaflet Providered with your Discharge Instructions. Surgery Medical Daystay Surgical Overnight Discharge Instructions?? Valuables and Belongings I fully understand and agree that [facility] accepts no responsibility for all my personal [...] to send valuables and belongings home. ?? Date for Pt to Sign Valuables/Belongings: 10/10/22 13:19:00 ?? Valuables & Belongings ?? Clothes Electronic devices Jewelry Monetary Items Personal devices Miscellaneous Medications (Valuables) Valuables at Bedside Coat, Pants, Shirt, Shoes, Undergarments Cell phone ? Valuables Sent Home ? Valuables Sent to Security ? Other Discharge Information ? Pulmonary Rehab Status?? Pulmonary Rehab Discharge Status?? Respiratory Rate:??13 br/min??Low ? Common Emergency Awareness Tips IS IT [...] are strongly encouraged to quit. Please call [facility] [employer] at [phone] or [phone] ([phone]) or log in to [email or web address] for referrals to smoking cessation programs. ?? The National Suicide Prevention Hotline is available 06/03 if you or someone you know needs to find areason to keep living. By calling 2-726-693[employer] (5942) you'll be connected to a skilled, trained counselor at a crisis center in your area. INPATIENT DISCHARGE INSTRUCTIONS SIGNATURE PAGE TRACEY HEARN Location:[facility] Registration Date and Time:10/10/2022 12:33 EST Primary Care Physician: Romeo GORMAN, Bassem Medrano, I TRACEY HEARN, have received the above patient education materials/instructions and have verbalized understanding. If ambulance or transport services are being used I further acknowledge being givena choice of service. ?? If you need to contact me, please call me at this number: . Patient/Floral Decorator Name: Tracey Luz Mariacelestinobuddy Patient/Floral Decorator Signature: Relationship to Patient: self Witness Name/Signature: Date: 10/10/22 Carol Ann Gonzalez RN: PERFORM, SIGN, VERIFY Event Display: Patient Education Handout Authored Date: [id number] Carol Ann Gonzalez RN: PERFORM Event Display: Patient Education Leaflets Authored Date: [id number] Surgery Medical Daystay Surgical Overnight Discharge Instructions ?? 295 Medical Daystay/Surgical Overnight Discharge Instructions ? Since your coordination and judgment may be altered by medication and/or anesthesia, a responsible adult must drive you home from the hospital. ? If you have received medication for pain or sedation while under our care, you should not drive, operate machinery, drink alcohol, or sign any legal documents for 24 hours.?? You should have someone with you at home tonight. ? Remain at home the day of discharge.?? You may be up and about unless otherwise instructed by your physician. ? You may resume your daily prescription medication schedule.?? Any depressant medication should be avoided for 24 hours unless otherwise instructed by your surgeon or anesthesiologist. ? Call your physician for a follow-up appointment.? If you experience unusual or severe pain not relied by your pain medication, excessive bleedingor drainage, persistent nausea and vomiting, excessive swelling or redness, foul odor from incision site or fever over 100.6F, you need to call your physician. ? A follow-up phone call by a nurse will be made the day after your procedure.?? If you have stayed with us over night, you will not be receiving a follow-up phone call. ? Nausea and vomiting are a common side effect of prescription pain medication.?? We recommend that pills are not taken on an empty stomach.?? While taking any prescription pain medication you should not drive or drink alcohol. ? Patient Care team information Care Team PersonnelName: Quan Virgen RN Position: [facility] RN Member Role: Primary Care Nurse Name: Rachel Sotelo Position: [facility] RN Member Role: Primary Care Nurse Name: Susana Chaney LPN Position: [facility] RN Member Role: Primary Care Nurse Name: Betty Cabrera NP Position: [facility] Associate Professional Member Role: Primary Care Nurse Address: Address: [address] [place] [address] Name: Uma Ndiaye Position: [facility] Outreach Member Role: Lifetime Consulting Physician Name: Bassem Walters MD Position: [facility] Renal MD Member Role: PCP Address: Address: [address] [place] [address] [facility] [address] Name: Audrey Tillman NP Position: [facility] Associate Professional Member Role: Lifetime Consulting Provider Address: Address: [address] [place], [place] [address] [address] Name: Kirk Morse DO Position: [facility] Renal MD Member Role: Lifetime Consulting Physician Address: Address: [address] [place] [address] [facility] [address] Name: Uma Valdovinos Position: [facility] Outreach Member Role: Lifetime Consulting Physician Name: Janelle Arora RN Position: [facility] RN Member Role: Primary Care Nurse Name: Prasanna Belle III, RN Position: [facility] RN Member Role: Primary Care Nurse Name: Suellen Lazcano RN Position: [facility] ED RN W/OE and Tasks Member Role: Primary Care Nurse Name: Rubia Pardo LPN Position: [facility] RN Member Role: Primary Care Nurse Name: Florencio Ferreira MD Position: [facility] Renal MD Member Role: Lifetime Consulting Physician Address: Address: [address] [facility] [address] [facility], [place] [address]- Name: Priscila López RN Position: [facility] RN Member Role: Primary Care Nurse Name: Bonnie Ann RN Position: [facility] RN Member Role: Primary Care Nurse Name: Felipa Burr RN Position: [facility] RN Member Role: Primary Care Nurse Name: Jennifer Alex RN Position: [facility] RN Member Role: Primary Care Nurse Name: Saskia Fontana RN Position: [facility] RN Member Role: Primary Care Nurse Name: Beatris Gaytan RN Position: [facility] RN Member Role: Primary Care Nurse Care Team Related PersonsName: AUDREY HEARN Address: home [address] [place] [address] Name: ABIMAEL HEARN Name: YUSUF HEARN Address: home [address] [place] [address]
[2022-10-30 13:55] LABS: B Type Natriuretic Peptide 4158 pg/mL (<100)
[2022-10-30 13:56] LABS: Alanine Aminotransferase 9 U/L (0-31); Albumin Level 3.6 g/dL (3.5-5.0); Alkaline Phosphatase 135 U/L (39-117); Anion Gap 21 (12-20); Aspartate Amino Transferase 22 U/L (5-31); Bilirubin Total 0.5 mg/dL (0.0-1.0); Blood Urea Nitrogen 33 mg/dL (9-16); Calcium 9.1 mg/dL (8.4-10.2); Carbon Dioxide 22 mmol/L (22-29); Chloride 101 mmol/L (96-108); Creatinine Clr Calc Pharmacy 12.1; Estimated Glomerular Filt Rate 13; Glucose Random 88 mg/dL (60-115); Potassium 5.5 mmol/L (3.3-5.1); Sodium 138 mmol/L (135-145); Total Protein 7.6 g/dL (6.5-8.0)
[2022-10-30 13:57] LABS: Troponin-I High Sensitivity 31.4 ng/L (<3.5-17.0)
--- NOTE | 2022-10-30 14:18 | MHC.EDTECH ---
Labs collected and sent
--- NOTE | 2022-10-30 14:37 | P.HPHOSP_ITS ---
History of Present Illness Date of Service: 10/30/22 Attending physician on admission: Nilo Brown Chief Complaint: edema 72-year-old female with history of asthmatic bronchitis, ESRD on dialysis, depression, history of DVT, GERD, hypertension, and coronary artery disease with history of NSTEMI presented to the [facility] Medical History Anemia Asthmatic bronchitis CKD (chronic kidney disease), stage IV Depression DVT (deep venous thrombosis) GERD (gastroesophageal reflux disease) History of ectopic Hypertension Family History Father No problems noted. Mother No problems noted. Surgical History H/O colonoscopy History of carpal tunnel release of both wrists History of left knee replacement History of rectal surgery Status post total replacement of right shoulder Social History (System 09/26/22 @ 07:24 by Cortney Huizar) Household Members: Spouse Housing: House Do you presently have visiting nurse or other home services: No Alcohol intake: unknown Cigarettes Per Day: 1 Advance Directives: Yes Advance Directives Information Provided: No Advance Directives on File: No service: No Current occupational status: other Current occupation: young,right handed Meds Allergies Allergy/AdvReac Type Severity Reaction Status Date / Time atenolol [ATENOLOL] Allergy Unknown DIFF Verified 09/26/22 07:24 BREATHING, heart races. amphetamine [Adderall] AdvReac Unknown shortness Verified 09/26/22 07:24 of breath dextroamphetamine [Adderall] AdvReac Unknown shortness Verified 09/26/22 07:24 of breath Home Medications Medication Instructions Recorded Confirmed Last Taken Type amlodipine 10 mg tablet 10 mg PO DAILY 08/10/20 12/13/20 Unknown History calcitriol 0.5 mcg capsule 0.5 mcg PO DAILY 12/09/20 12/13/20 Unknown History carvedilol 25 mg tablet 25 mg PO BID 12/09/20 12/13/20 Unknown History Physical Exam Vital Signs and Narrative: Vital Signs: Last Vital Signs Temp 98.5 F 10/30/22 13:18 Pulse 87 10/30/22 13:18 Resp 20 10/30/22 13:18 BP 200/98 H 10/30/22 13:18 Pulse Ox 96 10/30/22 13:18 O2 Del Method 10/30/22 13:18 BMI result Body Mass Index 21.6 Results Labs 10/30/22 13:22 10/30/22 04:22 Labs: Laboratory Results - last 24 hr 10/30/22 10/30/22 10/30/22 04:22 13:22 13:22 MCV 98.4 H MCH 30.5 MCHC 31.0 RDW 15.4 Plt Count 212 D MPV 9.4 Immature Gran % (Auto) 0.6 H Neut % (Auto) 61.4 Lymph % (Auto) 24.9 [place] % (Auto) 10.8 Eos % (Auto) 1.9 Baso % (Auto) 0.4 Lymph # (Auto) 1.7 [place] # (Auto) 0.8 Eos # (Auto) 0.1 Baso # (Auto) 0.0 Abs Immat Gran (auto) 0.04 H Absolute Neuts (auto) 4.3 Absolute Nucleated RBC 0.000 Nucleated RBC % (auto) 0.0 D-Dimer High Sensitivty Anion Gap 21 H Estim Creat Clear Calc 12.1 Estimated GFR 13 Random Glucose 88 Lactic Acid Calcium 9.1 Total Bilirubin 0.5 AST 22 ALT 9 Alkaline Phosphatase 135 H Troponin I High Sens B-Natriuretic Peptide 4158 H Total Protein 7.6 Albumin 3.6 10/30/22 10/30/22 10/30/22 13:22 13:22 14:15 MCV MCH MCHC RDW Plt Count MPV Immature Gran % (Auto) Neut % (Auto) Lymph % (Auto) [place] % (Auto) Eos % (Auto) Baso % (Auto) Lymph # (Auto) [place] # (Auto) Eos # (Auto) Baso # (Auto) Abs Immat Gran (auto) Absolute Neuts (auto) Absolute Nucleated RBC Nucleated RBC % (auto) D-Dimer High Sensitivty 425 Anion Gap Estim Creat Clear Calc Estimated GFR Random Glucose Lactic Acid 1.0 Calcium Total Bilirubin AST ALT Alkaline Phosphatase Troponin I High Sens 31.4 H B-Natriuretic Peptide Total Protein Albumin Assessment and Plan Plan 72-year-old female with history of asthmatic bronchitis, ESRD on dialysis, depression, history of DVT, GERD, hypertension, and coronary artery disease with history of NSTEMI # congestive heart failure, unspecified ejection fraction # ESRD on dialysis # hypertension # asthmatic bronchitis-without acute exacerbation -albuterol p.r.n. # history of DVT # GERD # coronary artery disease- denies chest pain -EKG is nonischemic, troponin 31.5, repeat pending -continue ASA, BB, statin DVT prophylaxis Full code Patient requires inpatient stay of at least 2 midnights for management of congestive heart failure with ESRD requiring IV diuresis and close monitoring for cardiopulmonary/cardiorenal decompensation Time Spent With Patient Time: Total time managing care of this patient today ____ minutes.
[2022-10-30] MEDS: LORazepam 2 MG/ML VIAL 0.5 MG IVPUSH ×2 (15:22→17:44)
--- NOTE | 2022-10-30 15:56 | PC.NURSE ---
patient alert, oriented x4. crying due to the pain in her left arm- states she hates dialysis . given ativan to help with anxiety. call guillermo within reach
--- NOTE | 2022-10-30 16:30 | PHA.MEDREC ---
Pharmacy Consult ? Medication Reconciliation Pharmacy has completed the medication reconciliation. spoke with patients daughter. She was able to read off her medications. She mentioned that the patient has been taking Tylenol more than usual lately and just started taking fluoxetine this past . She also told me that the calcitriol is given during dialysis 3x/week however she did not know the strength so I kept the strength that was already on her profile (0.5 mcg).
[2022-10-30] MEDS: carvediloL 12.5 MG TABLET PO (17:03)
[2022-10-30] MEDS: hydrALAZINE HCl 20 MG/ML VIAL 10 MG IVPUSH (17:03)
[2022-10-30] MEDS: Nitroglycerin 2 % Oint 1 GM Packet 1 INCH TRANSDERMA (17:10)
[2022-10-30] MEDS: Furosemide 100 MG/10 ML VIAL IVPUSH (17:10)
--- NOTE | 2022-10-30 17:34 | PC.NURSE ---
patient increasingly restless and reporting SOB. obvious increased WOB noted. SPO2 in the 90s. MD to the bedside. ordered IVP lasix and nitro paste.
--- NOTE | 2022-10-30 17:44 | PC.NURSE ---
RT at the bedside placing patient on BiPAP
--- NOTE | 2022-10-30 17:51 | PC.NURSE ---
RT changed settings to CPAP. pt tolerating well
--- NOTE | 2022-10-30 18:29 | PC.NURSE ---
patient remains on CPAP-tolerating well. no WOB noted. will continue to monitor resp status
--- NOTE | 2022-10-30 22:05 | ED.GENADULT ---
HPI - General Adult General Chief complaint: General Medical Stated complaint: both legs swollen, hard to breathe Time Seen by Provider: 10/30/22 13:20 Source: patient Related Data Home Medications Medication Instructions Recorded Confirmed amlodipine 10 mg tablet 10 mg PO DAILY 08/10/20 10/30/22 calcitriol 0.5 mcg capsule 0.5 mcg PO 3XW 12/09/20 10/30/22 acetaminophen 500 mg tablet 500 mg PO Q6H PRN Pain 10/30/22 10/30/22 apixaban 2.5 mg tablet (Eliquis) 1 tab PO BID 10/30/22 10/30/22 carvedilol 12.5 mg tablet 12.5 mg PO BID 10/30/22 10/30/22 clonidine 0.2 mg/24 hr weekly 1 patch topical QWEEK 10/30/22 10/30/22 transdermal patch fluoxetine 20 mg capsule 1 cap PO DAILY 10/30/22 10/30/22 lisinopril 20 mg tablet 1 tab PO BID 10/30/22 10/30/22 sevelamer HCl 800 mg tablet 1,600 mg PO BID 10/30/22 10/30/22 (Renagel) trazodone 100 mg tablet 1 tab PO BEDTIME 10/30/22 10/30/22 Previous Rx's Medication Instructions Recorded aspirin 81 mg tablet,delayed 81 mg PO DAILY #3 tabs 12/17/20 release Allergies Allergy/AdvReac Type Severity Reaction Status Date / Time atenolol [ATENOLOL] Allergy Unknown DIFF Verified 09/26/22 07:24 BREATHING, heart races. amphetamine [Adderall] AdvReac Unknown shortness Verified 09/26/22 07:24 of breath dextroamphetamine [Adderall] AdvReac Unknown shortness Verified 09/26/22 07:24 of breath PMFSH Past Medical History Medical History Anemia Asthmatic bronchitis CKD (chronic kidney disease), stage IV Depression DVT (deep venous thrombosis) GERD (gastroesophageal reflux disease) History of ectopic Hypertension Surgical History H/O colonoscopy History of carpal tunnel release of both wrists History of left knee replacement History of rectal surgery Status post total replacement of right shoulder Family History Family History Father No problems noted. Mother No problems noted. Social History Social History (System 09/26/22 @ 07:24 by Cortney Huizar) Household Members: Spouse Housing: House Do you presently have visiting nurse or other home services: No Alcohol intake: unknown Cigarettes Per Day: 1 Advance Directives: Yes Advance Directives Information Provided: No Advance Directives on File: No service: No Current occupational status: other Current occupation: young,right handed Physical Exam ED Vital Signs: Vital Signs - 24 hr 10/30/22 13:18 10/30/22 15:55 10/30/22 17:07 Temperature 98.5 F Pulse Rate 87 84 96 Respiratory Rate 20 20 31 H Blood Pressure 200/98 H 192/99 H 208/118 H Pulse Oximetry 96 96 99 Oxygen Delivery Method Room Air Nasal Cannula Nasal Cannula Oxygen Flow Rate 1 2 10/30/22 17:56 10/30/22 18:29 Temperature Pulse Rate 72 Respiratory Rate 26 H 21 H Blood Pressure 143/95 H Pulse Oximetry 98 Oxygen Delivery Method CPAP Oxygen Flow Rate BMI result Body Mass Index 21.6 Medications Administered Discontinued Medications Generic Name Dose Route Start Last Admin Trade Name Freq PRN Reason Stop Dose Admin Carvedilol 12.5 mg 10/30/22 16:48 10/30/22 17:03 Carvedilol 12.5 Mg Tablet PO 10/30/22 16:49 12.5 mg ONCE ONE Administration Protocol Furosemide 40 mg 10/30/22 13:23 10/30/22 13:41 Furosemide 40 Mg/4 Ml Vial IVPUSH 10/30/22 13:24 40 mg ONCE ONE Administration Protocol Furosemide 100 mg 10/30/22 17:05 10/30/22 17:10 Furosemide 100 Mg/10 Ml Vial IVPUSH 10/30/22 17:06 100 mg ONCE ONE Administration Protocol Hydralazine HCl 10 mg 10/30/22 16:46 10/30/22 17:03 Hydralazine Hcl 20 Mg/Ml Vial IVPUSH 10/30/22 16:47 10 mg ONCE ONE Administration Protocol Lorazepam 0.5 mg 10/30/22 15:15 10/30/22 15:22 Lorazepam 2 Mg/Ml Vial IVPUSH 10/30/22 15:16 0.5 mg ONCE ONE Administration Lorazepam 0.5 mg 10/30/22 17:24 10/30/22 17:44 Lorazepam 2 Mg/Ml Vial IVPUSH 10/30/22 17:25 0.5 mg ONCE ONE Administration Nitroglycerin 0.5 inch 10/30/22 13:23 10/30/22 13:41 Nitroglycerin 2 % Oint 1 Gm Packet TRANSDERMA 10/30/22 13:24 0.5 inch ONCE ONE Administration Nitroglycerin 1 inch 10/30/22 17:05 10/30/22 17:10 Nitroglycerin 2 % Oint 1 Gm Packet TRANSDERMA 10/30/22 17:06 1 inch ONCE ONE Administration Medical Decision Making Medical Decision Making [facility] Narrative: Took over patient's case at the change of shift. Patient had continues shortness of breath elevated blood pressure. Was started on BiPAP. Additional dose of Lasix total 100 mg given. Additional nitroglycerin given. Patient monitoring the emergency department for over 4 hours. Symptoms improved. Blood pressures down. Patient is sleeping. Will get a repeat blood gas. Case discussed with the hospitalist team. Will admit for further evaluation. Will need dialysis in a.m. patient's repeat chest x-ray consistent with fluid overload. Repeat chest x-ray showed no significant significant changes. Lab Data [facility] Lab Attestation statement: I reviewed the patient's lab results. 10/30/22 13:22 10/30/22 13:22 Labs: Lab Results 10/30/22 10/30/22 10/30/22 Range/Units 13:22 13:22 13:22 WBC 7.0 (4.8-10.8) X10*3/uL RBC 3.08 L D (4.20-5.50) X10*6/uL Hgb 9.4 L D (12.0-16.0) g/dl Hct 30.3 L D (37.0-47.0) % MCV 98.4 H (80.0-98.0) fL MCH 30.5 (27.0-33.0) pg MCHC 31.0 (31.0-35.0) g/dl RDW 15.4 (11.0-16.0) % Plt Count 212 D (160-400) X10*3/uL MPV 9.4 (9.4-12.3) fL Immature Gran % (Auto) 0.6 H (0.0-0.4) % Neut % (Auto) 61.4 (45-73) % Lymph % (Auto) 24.9 (20-40) % [place] % (Auto) 10.8 (2-11) % Eos % (Auto) 1.9 (0-4) % Baso % (Auto) 0.4 (0-2) % Lymph # (Auto) 1.7 (1.2-4.9) X10*3/uL [place] # (Auto) 0.8 (0.1-1.2) X10*3/uL Eos # (Auto) 0.1 (0.0-0.4) X10*3/uL Baso # (Auto) 0.0 (0.0-0.2) X10*3/uL Abs Immat Gran (auto) 0.04 H (0.00-0.03) X10*3/uL Absolute Neuts (auto) 4.3 (2.0-8.3) x10*3/uL Absolute Nucleated RBC 0.000 (0.0-0.012) X10*3/uL Nucleated RBC % (auto) 0.0 (0.0-0.2) /100WBC D-Dimer High Sensitivty NG/ML Sodium 138 (135-145) mmol/L Potassium 5.5 H D (3.3-5.1) mmol/L Chloride 101 (96-108) mmol/L Carbon Dioxide 22 (22-29) mmol/L Anion Gap 21 H (12-20) BUN 33 H (9-16) mg/dL Creatinine 3.53 H (0.5-1.4) mg/dL Estim Creat Clear Calc 12.1 Estimated GFR 13 Random Glucose 88 (60-115) mg/dL Lactic Acid (0.5-2.0) mmol/L Calcium 9.1 (8.4-10.2) mg/dL Total Bilirubin 0.5 (0.0-1.0) mg/dL AST 22 (5-31) U/L ALT 9 (0-31) U/L Alkaline Phosphatase 135 H (39-117) U/L Troponin I High Sens (<3.5-17.0) ng/L B-Natriuretic Peptide 4158 H (<100) pg/mL Total Protein 7.6 (6.5-8.0) g/dL Albumin 3.6 (3.5-5.0) g/dL 10/30/22 10/30/22 10/30/22 Range/Units 13:22 13:22 14:15 WBC (4.8-10.8) X10*3/uL RBC (4.20-5.50) X10*6/uL Hgb (12.0-16.0) g/dl Hct (37.0-47.0) % MCV (80.0-98.0) fL MCH (27.0-33.0) pg MCHC (31.0-35.0) g/dl RDW (11.0-16.0) % Plt Count (160-400) X10*3/uL MPV (9.4-12.3) fL Immature Gran % (Auto) (0.0-0.4) % Neut % (Auto) (45-73) % Lymph % (Auto) (20-40) % [place] % (Auto) (2-11) % Eos % (Auto) (0-4) % Baso % (Auto) (0-2) % Lymph # (Auto) (1.2-4.9) X10*3/uL [place] # (Auto) (0.1-1.2) X10*3/uL Eos # (Auto) (0.0-0.4) X10*3/uL Baso # (Auto) (0.0-0.2) X10*3/uL Abs Immat Gran (auto) (0.00-0.03) X10*3/uL Absolute Neuts (auto) (2.0-8.3) x10*3/uL Absolute Nucleated RBC (0.0-0.012) X10*3/uL Nucleated RBC % (auto) (0.0-0.2) /100WBC D-Dimer High Sensitivty 425 NG/ML Sodium (135-145) mmol/L Potassium (3.3-5.1) mmol/L Chloride (96-108) mmol/L Carbon Dioxide (22-29) mmol/L Anion Gap (12-20) BUN (9-16) mg/dL Creatinine (0.5-1.4) mg/dL Estim Creat Clear Calc Estimated GFR Random Glucose (60-115) mg/dL Lactic Acid 1.0 (0.5-2.0) mmol/L Calcium (8.4-10.2) mg/dL Total Bilirubin (0.0-1.0) mg/dL AST (5-31) U/L ALT (0-31) U/L Alkaline Phosphatase (39-117) U/L Troponin I High Sens 31.4 H (<3.5-17.0) ng/L B-Natriuretic Peptide (<100) pg/mL Total Protein (6.5-8.0) g/dL Albumin (3.5-5.0) g/dL Radiology Impression Discussion of test interpretation with radiology: I have reviewed the radiologist's reading. Critical Care Time Critical Care Time Critical Care Time: Yes Total Critical Care Time: 40 Attestation: I have personally provided 40 minutes of critical care time exclusive of time spent on separately billable procedures. Time includes review of lab data, radiology results, discussion with consultants, and monitoring for potential decompensation. Interventions were performed as documented above Discharge Plan Discharge Clinical Impression: CHF exacerbation, End stage chronic kidney disease Patient Disposition: Admitted As Inpatient
[2022-10-30 22:25] LABS: ABG Base Excess 2.7 mmol/L; ABG HCO3 26 mmol/L (22-26); ABG pCO2 36 mmHg (32-45); ABG pH 7.46 (7.35-7.45); ABG pO2 118 mmHg (83-108)
[2022-10-30 23:13] LABS: ABG Refer to POC result
[2022-10-31] VITALS (24 sets, daily range): BP systolic 119–199; BP diastolic 8–116; PULSE 63–95; RESP 16–26; TEMP 36.2–37.1; O2SAT 96–99; BMI 22.8
[2022-10-31] MEDS: Nitroglycerin/D5W 100 MG/250 ML INFUS..BTL IVCONT (00:24)
--- NOTE | 2022-10-31 00:42 | PC.NURSE ---
Nitroglycerin titrated to 40mcg/hr per Dr. Coelho.
[2022-10-31 00:45] LABS: VBG Base Excess 1.8 mmol/L; VBG HCO3 26 mmol/L (22-26); VBG pCO2 39 mmHg; VBG pH 7.42 (7.32-7.43); VBG pO2 100 mmHg
[2022-10-31 00:47] LABS: Venous Blood Gas Refer to POC result
--- NOTE | 2022-10-31 01:24 | ED.GENADULT ---
HPI - General Adult General Chief complaint: General Medical Stated complaint: both legs swollen, hard to breathe Time Seen by Provider: 10/30/22 13:20 Source: patient Related Data Home Medications Medication Instructions Recorded Confirmed amlodipine 10 mg tablet 10 mg PO DAILY 08/10/20 10/30/22 calcitriol 0.5 mcg capsule 0.5 mcg PO 3XW 12/09/20 10/30/22 acetaminophen 500 mg tablet 500 mg PO Q6H PRN Pain 10/30/22 10/30/22 apixaban 2.5 mg tablet (Eliquis) 1 tab PO BID 10/30/22 10/30/22 carvedilol 12.5 mg tablet 12.5 mg PO BID 10/30/22 10/30/22 clonidine 0.2 mg/24 hr weekly 1 patch topical QWEEK 10/30/22 10/30/22 transdermal patch fluoxetine 20 mg capsule 1 cap PO DAILY 10/30/22 10/30/22 lisinopril 20 mg tablet 1 tab PO BID 10/30/22 10/30/22 sevelamer HCl 800 mg tablet 1,600 mg PO BID 10/30/22 10/30/22 (Renagel) trazodone 100 mg tablet 1 tab PO BEDTIME 10/30/22 10/30/22 Previous Rx's Medication Instructions Recorded aspirin 81 mg tablet,delayed 81 mg PO DAILY #3 tabs 12/17/20 release Allergies Allergy/AdvReac Type Severity Reaction Status Date / Time atenolol [ATENOLOL] Allergy Unknown DIFF Verified 09/26/22 07:24 BREATHING, heart races. amphetamine [Adderall] AdvReac Unknown shortness Verified 09/26/22 07:24 of breath dextroamphetamine [Adderall] AdvReac Unknown shortness Verified 09/26/22 07:24 of breath PMFSH Past Medical History Medical History Anemia Asthmatic bronchitis CKD (chronic kidney disease), stage IV Depression DVT (deep venous thrombosis) GERD (gastroesophageal reflux disease) History of ectopic Hypertension Surgical History H/O colonoscopy History of carpal tunnel release of both wrists History of left knee replacement History of rectal surgery Status post total replacement of right shoulder Family History Family History Father No problems noted. Mother No problems noted. Social History Social History (System 09/26/22 @ 07:24 by Cortney Huizar) Household Members: Spouse Housing: House Do you presently have visiting nurse or other home services: No Alcohol intake: unknown Cigarettes Per Day: 1 Advance Directives: Yes Advance Directives Information Provided: No Advance Directives on File: No service: No Current occupational status: other Current occupation: young,right handed Physical Exam ED Vital Signs: Vital Signs - 24 hr 10/30/22 13:18 10/30/22 15:55 10/30/22 17:07 Temperature 98.5 F Pulse Rate 87 84 96 Respiratory Rate 20 20 31 H Blood Pressure 200/98 H 192/99 H 208/118 H Pulse Oximetry 96 96 99 Oxygen Delivery Method Room Air Nasal Cannula Nasal Cannula Oxygen Flow Rate 1 2 10/30/22 17:56 10/30/22 18:29 10/30/22 22:31 Temperature 98.2 F Pulse Rate 72 99 Respiratory Rate 26 H 21 H 24 H Blood Pressure 143/95 H 200/111 H Pulse Oximetry 98 98 Oxygen Delivery Method CPAP Nasal Cannula Oxygen Flow Rate 2 10/31/22 00:16 10/31/22 00:24 10/31/22 00:41 Temperature 98.6 F Pulse Rate 92 83 94 Respiratory Rate 23 H 25 H Blood Pressure 194/114 H 199/109 H 199/114 H Pulse Oximetry 99 96 Oxygen Delivery Method Nasal Cannula Nasal Cannula Oxygen Flow Rate 3 3 10/31/22 00:41 Temperature Pulse Rate 94 Respiratory Rate Blood Pressure 199/114 H Pulse Oximetry Oxygen Delivery Method Oxygen Flow Rate BMI result Body Mass Index 21.6 Medications Administered Generic Name Dose Route Start Last Admin Trade Name Freq PRN Reason Stop Dose Admin Nitroglycerin/Dextrose 100 mg in 250 mls @ 0 mls/hr 10/31/22 00:15 10/31/22 00:41 Nitroglycerin/D5w IVCONT 40 mcg/min .Q0M DIMITRY 6 mls/hr Titration Protocol Per Protocol Discontinued Medications Generic Name Dose Route Start Last Admin Trade Name Freq PRN Reason Stop Dose Admin Carvedilol 12.5 mg 10/30/22 16:48 10/30/22 17:03 Carvedilol 12.5 Mg Tablet PO 10/30/22 16:49 12.5 mg ONCE ONE Administration Protocol Furosemide 40 mg 10/30/22 13:23 10/30/22 13:41 Furosemide 40 Mg/4 Ml Vial IVPUSH 10/30/22 13:24 40 mg ONCE ONE Administration Protocol Furosemide 100 mg 10/30/22 17:05 10/30/22 17:10 Furosemide 100 Mg/10 Ml Vial IVPUSH 10/30/22 17:06 100 mg ONCE ONE Administration Protocol Hydralazine HCl 10 mg 10/30/22 16:46 10/30/22 17:03 Hydralazine Hcl 20 Mg/Ml Vial IVPUSH 10/30/22 16:47 10 mg ONCE ONE Administration Protocol Lorazepam 0.5 mg 10/30/22 15:15 10/30/22 15:22 Lorazepam 2 Mg/Ml Vial IVPUSH 10/30/22 15:16 0.5 mg ONCE ONE Administration Lorazepam 0.5 mg 10/30/22 17:24 10/30/22 17:44 Lorazepam 2 Mg/Ml Vial IVPUSH 10/30/22 17:25 0.5 mg ONCE ONE Administration Nitroglycerin 0.5 inch 10/30/22 13:23 10/30/22 13:41 Nitroglycerin 2 % Oint 1 Gm Packet TRANSDERMA 10/30/22 13:24 0.5 inch ONCE ONE Administration Nitroglycerin 1 inch 10/30/22 17:05 10/30/22 17:10 Nitroglycerin 2 % Oint 1 Gm Packet TRANSDERMA 10/30/22 17:06 1 inch ONCE ONE Administration Medical Decision Making Medical Decision Making MDM Narrative: 01:00. Patient blood pressure went back up to 199/110. Wanted a CT scan of the head. CT scan of the head was done is grossly negative there is no acute evidence of bleeding. No fracture noted. Patient's VBG showed no CO2 retention. Started on a nitro drip. Now titrate up to 60 microgram/minute. Will monitor very carefully patient's blood pressure. Hospitalist made aware of patient's condition. Lab Data 10/30/22 13:22 10/30/22 13:22 Labs: Lab Results 03/19/23 03/19/23 03/19/23 Range/Units 13:22 13:22 13:22 WBC 7.0 (4.8-10.8) X10*3/uL RBC 3.08 L D (4.20-5.50) X10*6/uL Hgb 9.4 L D (12.0-16.0) g/dl Hct 30.3 L D (37.0-47.0) % MCV 98.4 H (80.0-98.0) fL MCH 30.5 (27.0-33.0) pg MCHC 31.0 (31.0-35.0) g/dl RDW 15.4 (11.0-16.0) % Plt Count 212 D (160-400) X10*3/uL MPV 9.4 (9.4-12.3) fL Immature Gran % (Auto) 0.6 H (0.0-0.4) % Neut % (Auto) 61.4 (45-73) % Lymph % (Auto) 24.9 (20-40) % [place] % (Auto) 10.8 (2-11) % Eos % (Auto) 1.9 (0-4) % Baso % (Auto) 0.4 (0-2) % Lymph # (Auto) 1.7 (1.2-4.9) X10*3/uL [place] # (Auto) 0.8 (0.1-1.2) X10*3/uL Eos # (Auto) 0.1 (0.0-0.4) X10*3/uL Baso # (Auto) 0.0 (0.0-0.2) X10*3/uL Abs Immat Gran (auto) 0.04 H (0.00-0.03) X10*3/uL Absolute Neuts (auto) 4.3 (2.0-8.3) x10*3/uL Absolute Nucleated RBC 0.000 (0.0-0.012) X10*3/uL Nucleated RBC % (auto) 0.0 (0.0-0.2) /100WBC D-Dimer High Sensitivty NG/ML O2 Saturation % ABG pH at Pt Temp (7.35-7.45) ABG pCO2 at Pt Temp (32-45) mmHg ABG pO2 at Pt Temp (83-108) mmHg ABG HCO3 (22-26) mmol/L ABG Base Excess (Actual) mmol/L VBG pH (7.32-7.43) VBG pCO2 mmHg VBG pO2 mmHg VBG HCO3 (22-26) mmol/L VBG O2 Saturation % VBG Base Excess mmol/L Sodium 138 (135-145) mmol/L Potassium 5.5 H D (3.3-5.1) mmol/L Chloride 101 (96-108) mmol/L Carbon Dioxide 22 (22-29) mmol/L Anion Gap 21 H (12-20) BUN 33 H (9-16) mg/dL Creatinine 3.53 H (0.5-1.4) mg/dL Estim Creat Clear Calc 12.1 Estimated GFR 13 Random Glucose 88 (60-115) mg/dL Lactic Acid (0.5-2.0) mmol/L Calcium 9.1 (8.4-10.2) mg/dL Total Bilirubin 0.5 (0.0-1.0) mg/dL AST 22 (5-31) U/L ALT 9 (0-31) U/L Alkaline Phosphatase 135 H (39-117) U/L Troponin I High Sens (<3.5-17.0) ng/L B-Natriuretic Peptide 4158 H (<100) pg/mL Total Protein 7.6 (6.5-8.0) g/dL Albumin 3.6 (3.5-5.0) g/dL 10/30/22 10/30/22 10/30/22 Range/Units 13:22 13:22 14:15 WBC (4.8-10.8) X10*3/uL RBC (4.20-5.50) X10*6/uL Hgb (12.0-16.0) g/dl Hct (37.0-47.0) % MCV (80.0-98.0) fL MCH (27.0-33.0) pg MCHC (31.0-35.0) g/dl RDW (11.0-16.0) % Plt Count (160-400) X10*3/uL MPV (9.4-12.3) fL Immature Gran % (Auto) (0.0-0.4) % Neut % (Auto) (45-73) % Lymph % (Auto) (20-40) % [place] % (Auto) (2-11) % Eos % (Auto) (0-4) % Baso % (Auto) (0-2) % Lymph # (Auto) (1.2-4.9) X10*3/uL [place] # (Auto) (0.1-1.2) X10*3/uL Eos # (Auto) (0.0-0.4) X10*3/uL Baso # (Auto) (0.0-0.2) X10*3/uL Abs Immat Gran (auto) (0.00-0.03) X10*3/uL Absolute Neuts (auto) (2.0-8.3) x10*3/uL Absolute Nucleated RBC (0.0-0.012) X10*3/uL Nucleated RBC % (auto) (0.0-0.2) /100WBC D-Dimer High Sensitivty 425 NG/ML O2 Saturation % ABG pH at Pt Temp (7.35-7.45) ABG pCO2 at Pt Temp (32-45) mmHg ABG pO2 at Pt Temp (83-108) mmHg ABG HCO3 (22-26) mmol/L ABG Base Excess (Actual) mmol/L VBG pH (7.32-7.43) VBG pCO2 mmHg VBG pO2 mmHg VBG HCO3 (22-26) mmol/L VBG O2 Saturation % VBG Base Excess mmol/L Sodium (135-145) mmol/L Potassium (3.3-5.1) mmol/L Chloride (96-108) mmol/L Carbon Dioxide (22-29) mmol/L Anion Gap (12-20) BUN (9-16) mg/dL Creatinine (0.5-1.4) mg/dL Estim Creat Clear Calc Estimated GFR Random Glucose (60-115) mg/dL Lactic Acid 1.0 (0.5-2.0) mmol/L Calcium (8.4-10.2) mg/dL Total Bilirubin (0.0-1.0) mg/dL AST (5-31) U/L ALT (0-31) U/L Alkaline Phosphatase (39-117) U/L Troponin I High Sens 31.4 H (<3.5-17.0) ng/L B-Natriuretic Peptide (<100) pg/mL Total Protein (6.5-8.0) g/dL Albumin (3.5-5.0) g/dL 10/30/22 10/31/22 Range/Units 22:18 00:37 WBC (4.8-10.8) X10*3/uL RBC (4.20-5.50) X10*6/uL Hgb (12.0-16.0) g/dl Hct (37.0-47.0) % MCV (80.0-98.0) fL MCH (27.0-33.0) pg MCHC (31.0-35.0) g/dl RDW (11.0-16.0) % Plt Count (160-400) X10*3/uL MPV (9.4-12.3) fL Immature Gran % (Auto) (0.0-0.4) % Neut % (Auto) (45-73) % Lymph % (Auto) (20-40) % [place] % (Auto) (2-11) % Eos % (Auto) (0-4) % Baso % (Auto) (0-2) % Lymph # (Auto) (1.2-4.9) X10*3/uL [place] # (Auto) (0.1-1.2) X10*3/uL Eos # (Auto) (0.0-0.4) X10*3/uL Baso # (Auto) (0.0-0.2) X10*3/uL Abs Immat Gran (auto) (0.00-0.03) X10*3/uL Absolute Neuts (auto) (2.0-8.3) x10*3/uL Absolute Nucleated RBC (0.0-0.012) X10*3/uL Nucleated RBC % (auto) (0.0-0.2) /100WBC D-Dimer High Sensitivty NG/ML O2 Saturation 100.0 % ABG pH at Pt Temp 7.46 H (7.35-7.45) ABG pCO2 at Pt Temp 36 (32-45) mmHg ABG pO2 at Pt Temp 118 H (83-108) mmHg ABG HCO3 26 (22-26) mmol/L ABG Base Excess (Actual) 2.7 mmol/L VBG pH 7.42 (7.32-7.43) VBG pCO2 39 mmHg VBG pO2 100 mmHg VBG HCO3 26 (22-26) mmol/L VBG O2 Saturation 99.0 % VBG Base Excess 1.8 mmol/L Sodium (135-145) mmol/L Potassium (3.3-5.1) mmol/L Chloride (96-108) mmol/L Carbon Dioxide (22-29) mmol/L Anion Gap (12-20) BUN (9-16) mg/dL Creatinine (0.5-1.4) mg/dL Estim Creat Clear Calc Estimated GFR Random Glucose (60-115) mg/dL Lactic Acid (0.5-2.0) mmol/L Calcium (8.4-10.2) mg/dL Total Bilirubin (0.0-1.0) mg/dL AST (5-31) U/L ALT (0-31) U/L Alkaline Phosphatase (39-117) U/L Troponin I High Sens (<3.5-17.0) ng/L B-Natriuretic Peptide (<100) pg/mL Total Protein (6.5-8.0) g/dL Albumin (3.5-5.0) g/dL Discharge Plan Discharge Clinical Impression: CHF exacerbation, End stage chronic kidney disease Patient Disposition: Admitted As Inpatient
--- NOTE | 2022-10-31 01:41 | PC.NURSE ---
Nitroglycerin titrated to 60mcg/hr as BP continues to increase. aware.
--- NOTE | 2022-10-31 01:48 | PC.NURSE ---
Nitroglycerin titrated to 50cmg/hr per Dr Coelho verbal order.
--- NOTE | 2022-10-31 02:37 | PC.NURSE ---
Nitroglycerin drip titrated to 70mcg/hr as BP continues to increase. MD alexandre
[2022-10-31] MEDS: cloNIDine HCL 0.2 MG TABLET PO (02:45)
[2022-10-31] MEDS: Labetalol HCL 100 MG/20 ML VIAL 20 MG IVPUSH (02:56)
--- NOTE | 2022-10-31 03:00 | PC.NURSE ---
BP continue to increase. MD aware. New order for Labetalol. Pt medicated as ordered. Tolerated well. Breaths are even regular and labored. O2 sat 97% on 3L NC. NSR on monitor with HR 69. Will continue to monitor.
--- NOTE | 2022-10-31 03:05 | PC.NURSE ---
Nitroglycerin decreased to 40mcg/hr per MD order as Labetalol was administered. Will continue to monitor.
--- NOTE | 2022-10-31 03:15 | PC.NURSE ---
Pt sleeping at the bedside. Breaths are even, regular, and labored. NSR on monitor with HR 67. BP 157/81. Nitroglycerin drip running at 40mcg/hr. MD aware. Will continue to monitor.
[2022-10-31 05:00] LABS: COVID-19 Test Negative (Negative); IDNOW Serial# BCCEAD1C
[2022-10-31] MEDS: hydrALAZINE HCl 20 MG/ML VIAL 5 MG IVPUSH (05:56)
--- NOTE | 2022-10-31 06:01 | PC.NURSE ---
Per Dr. Merida pt to be titrated off of the nitroglycerin drip. Pt medicated as ordered. [address] Merida. Pt tolerated well. Will continue to monitor.
--- NOTE | 2022-10-31 06:04 | PM.IMHP ---
History of Present Illness Date of Service: 10/31/22 Chief Complaint: SOB 72-year-old female with past medical history of paroxysmal AFib, CHF, ESRD on dialysis, CAD with history of NSTEMI presents to the hospital with complaints of diffuse swelling of her legs and arms. Patient currently is sleepy, wakes up opens her eyes and falls back asleep. Unable to get much history from her. History is obtained from EMR and ED provider. It appears the patient has been having swelling in her arms since the placement of her fistula 4 months ago. She reported increasing shortness of breath and anxiety, has been having difficulty taking deep breaths. She denied fever, chills, nausea vomiting, diarrhea constipation, melena hematochezia, headache or vision changes to the ED provider. it appears that patient did complete her dialysis on Monday on initial arrival to the ED patient found to have BP of 200/98, patient was given 1 dose of 10 mg IV hydralazine, 12.5 of p.o. carvedilol, 0.2 of p.o. clonidine, and was placed on nitro drip temporarily for BP control. Patient does not appear to have any hypoxia. Labs are significant for WBC count of 7.0, hemoglobin of 9.4, pH of 7.46, potassium 5.5, creatinine of 3.53 which is higher than February of 2.90, BNP of 4158, troponin of 31.4, has CT is negative for any acute intracranial pathology chest x-ray shows pulmonary vascular congestion Review of Systems Review of Systems: Yes all other systems are reviewed and are negative [facility] Medical History Anemia Asthmatic bronchitis CKD (chronic kidney disease), stage IV Depression DVT (deep venous thrombosis) GERD (gastroesophageal reflux disease) History of ectopic Hypertension Family History Father No problems noted. Mother No problems noted. Surgical History H/O colonoscopy History of carpal tunnel release of both wrists History of left knee replacement History of rectal surgery Status post total replacement of right shoulder Social History Household Members: Spouse Housing: House Do you presently have visiting nurse or other home services: No Alcohol intake: unknown Patient Tobacco Use Status: Former Tobacco user Cigarettes Per Day: 1 Advance Directives: Yes Advance Directives Information Provided: No Advance Directives on File: No Nutrition Risks: No Nutritional Risk service: No Current occupational status: other Current occupation: young,right handed Meds Allergies Allergy/AdvReac Type Severity Reaction Status Date / Time atenolol [ATENOLOL] Allergy Unknown DIFF Verified 09/26/22 07:24 BREATHING, heart races. amphetamine [Adderall] AdvReac Unknown shortness Verified 09/26/22 07:24 of breath dextroamphetamine [Adderall] AdvReac Unknown shortness Verified 09/26/22 07:24 of breath Active Medications: Current Medications Acetaminophen (Acetaminophen 325 Mg Tablet) 650 mg PO Q6H PRN PRN Reason: Pain, Mild (Pain Scale 1-3) Amlodipine Besylate (Amlodipine Besylate 10 Mg Tablet) 10 mg PO DAILY [facility]; Protocol Apixaban (Apixaban 2.5 Mg Tablet) 2.5 mg PO BID [facility] Aspirin (Aspirin Enteric Coated 81 Mg Tablet.Dr) 81 mg PO DAILY [facility] Calcitriol (Calcitriol 0.25 Mcg Capsule) 0.5 mcg PO MoWeFr DIMITRY Carvedilol (Carvedilol 12.5 Mg Tablet) 12.5 mg PO BID [facility]; Protocol Clonidine (Clonidine 0.2 Mg Patch.Tdwk) 0.2 mg TRANSDERMA Mo DIMITRY; Protocol Docusate Sodium (Docusate Sodium 100 Mg Capsule) 100 mg PO DAILY PRN PRN Reason: Constipation Fluoxetine HCl (Fluoxetine Hcl 20 Mg Capsule) 20 mg PO DAILY [facility] Furosemide (Furosemide 40 Mg/4 Ml Vial) 40 mg IVPUSH DAILY [facility]; Protocol Hydralazine HCl (Hydralazine Hcl 20 Mg/Ml Vial) 5 mg IVPUSH Q4H PRN; Protocol PRN Reason: SBP>190 Last Admin: 10/31/22 05:56 Dose: 5 mg Nitroglycerin/Dextrose (Nitroglycerin/D5w) 100 mg in 250 mls @ 0 mls/hr IVCONT .Q0M [facility]; Protocol Last Titration: 10/31/22 05:48 Dose: 20 mcg/min, 3 mls/hr Lisinopril (Lisinopril 20 Mg Tablet) 20 mg PO BID [facility]; Protocol Nitroglycerin (Nitroglycerin 0.4 Mg Patch.Td24) 0.4 mg TRANSDERMA DAILY [facility]; Protocol Ondansetron HCl (Ondansetron Hcl 4 Mg/2 Ml Vial) 4 mg IVPUSH Q8H PRN PRN Reason: Nausea and Vomiting Sevelamer Carbonate (Sevelamer Carbonate Tablet 800 Mg Tablet) 1,600 mg PO BID [facility] Sodium Chloride (0.9 % Sodium Chloride Flush 3 Ml Syringe) 3 ml IVFLUSH QSHIFT [facility] Trazodone HCl (Trazodone Hcl 100 Mg Tablet) 100 mg PO BEDTIME [facility] Home Medications Medication Instructions Recorded Confirmed Last Taken Type amlodipine 10 mg tablet 10 mg PO DAILY 08/10/20 10/30/22 10/30/22 History calcitriol 0.5 mcg capsule 0.5 mcg PO 3XW 12/09/20 10/30/22 Unknown History acetaminophen 500 mg tablet 500 mg PO Q6H PRN Pain 10/30/22 10/30/22 Unknown History apixaban 2.5 mg tablet (Eliquis) 1 tab PO BID 10/30/22 10/30/22 10/30/22 History carvedilol 12.5 mg tablet 12.5 mg PO BID 10/30/22 10/30/22 10/30/22 History clonidine 0.2 mg/24 hr weekly 1 patch topical QWEEK 10/30/22 10/30/22 Unknown History transdermal patch fluoxetine 20 mg capsule 1 cap PO DAILY 10/30/22 10/30/22 10/30/22 History lisinopril 20 mg tablet 1 tab PO BID 10/30/22 10/30/22 10/30/22 History sevelamer HCl 800 mg tablet 1,600 mg PO BID 10/30/22 10/30/22 10/30/22 History (Renagel) trazodone 100 mg tablet 1 tab PO BEDTIME 10/30/22 10/30/22 Unknown History Physical Exam Vital Signs and Narrative: Vital Signs: Last Vital Signs Temp 97.6 F 10/31/22 04:58 Pulse 72 10/31/22 05:48 Resp 17 10/31/22 04:58 BP 174/90 H 10/31/22 05:48 Pulse Ox 99 10/31/22 04:58 O2 Del Method 10/31/22 04:58 O2 Flow Rate 3 10/31/22 04:58 BMI result Body Mass Index 21.6 Const: Other: somnolent but arousable, appears very sleepy General: cooperative and no acute distress Eyes: General: appearance normal, both eyes and all related structures Resp: Other: crackles bilaterally Effort & Inspection: normal respiratory effort Auscultation: clear to auscultation bilaterally Cardio: Rate: regular rate Rhythm: regular rhythm GI: Palpation (GI): Soft to palpation Auscultation: normal bowel sounds Skin: General skin exam: no rashes or lesions noted Extrem: Other: 2+ edema in the lower extremities as well as of her General: Yes normal to inspection Results Labs 10/30/22 13:22 10/30/22 13:22 Labs: Laboratory Results - last 24 hr 10/30/22 10/30/22 10/30/22 13:22 13:22 13:22 MCV 98.4 H MCH 30.5 MCHC 31.0 RDW 15.4 Plt Count 212 D MPV 9.4 Immature Gran % (Auto) 0.6 H Neut % (Auto) 61.4 Lymph % (Auto) 24.9 [place] % (Auto) 10.8 Eos % (Auto) 1.9 Baso % (Auto) 0.4 Lymph # (Auto) 1.7 [place] # (Auto) 0.8 Eos # (Auto) 0.1 Baso # (Auto) 0.0 Abs Immat Gran (auto) 0.04 H Absolute Neuts (auto) 4.3 Absolute Nucleated RBC 0.000 Nucleated RBC % (auto) 0.0 D-Dimer High Sensitivty O2 Saturation ABG pH at Pt Temp ABG pCO2 at Pt Temp ABG pO2 at Pt Temp ABG HCO3 ABG Base Excess (Actual) VBG pH VBG pCO2 VBG pO2 VBG HCO3 VBG O2 Saturation VBG Base Excess Anion Gap 21 H Estim Creat Clear Calc 12.1 Estimated GFR 13 Random Glucose 88 Lactic Acid Calcium 9.1 Total Bilirubin 0.5 AST 22 ALT 9 Alkaline Phosphatase 135 H Troponin I High Sens B-Natriuretic Peptide 4158 H Total Protein 7.6 Albumin 3.6 COVID-19 ([place]) COVID-19 Clin Com 10/30/22 10/30/22 10/30/22 13:22 13:22 14:15 MCV MCH MCHC RDW Plt Count MPV Immature Gran % (Auto) Neut % (Auto) Lymph % (Auto) [place] % (Auto) Eos % (Auto) Baso % (Auto) Lymph # (Auto) [place] # (Auto) Eos # (Auto) Baso # (Auto) Abs Immat Gran (auto) Absolute Neuts (auto) Absolute Nucleated RBC Nucleated RBC % (auto) D-Dimer High Sensitivty 425 O2 Saturation ABG pH at Pt Temp ABG pCO2 at Pt Temp ABG pO2 at Pt Temp ABG HCO3 ABG Base Excess (Actual) VBG pH VBG pCO2 VBG pO2 VBG HCO3 VBG O2 Saturation VBG Base Excess Anion Gap Estim Creat Clear Calc Estimated GFR Random Glucose Lactic Acid 1.0 Calcium Total Bilirubin AST ALT Alkaline Phosphatase Troponin I High Sens 31.4 H B-Natriuretic Peptide Total Protein Albumin COVID-19 ([place]) COVID-[employer] 10/30/22 10/31/22 10/31/22 22:18 00:37 04:43 MCV MCH MCHC RDW Plt Count MPV Immature Gran % (Auto) Neut % (Auto) Lymph % (Auto) [place] % (Auto) Eos % (Auto) Baso % (Auto) Lymph # (Auto) [place] # (Auto) Eos # (Auto) Baso # (Auto) Abs Immat Gran (auto) Absolute Neuts (auto) Absolute Nucleated RBC Nucleated RBC % (auto) D-Dimer High Sensitivty O2 Saturation 100.0 ABG pH at Pt Temp 7.46 H ABG pCO2 at Pt Temp 36 ABG pO2 at Pt Temp 118 H ABG HCO3 26 ABG Base Excess (Actual) 2.7 VBG pH 7.42 VBG pCO2 39 VBG pO2 100 VBG HCO3 26 VBG O2 Saturation 99.0 VBG Base Excess 1.8 Anion Gap Estim Creat Clear Calc Estimated GFR Random Glucose Lactic Acid Calcium Total Bilirubin AST ALT Alkaline Phosphatase Troponin I High Sens B-Natriuretic Peptide Total Protein Albumin COVID-19 ([place]) Negative COVID-19 Clin Com See Note Imaging Radiologist's Impressions: Impressions Chest X-Ray 10/30/22 14:10 IMPRESSION: Mild congestion with possible very small left pleural effusion and superjacent atelectasis. Chest X-Ray 10/30/22 17:43 IMPRESSION: Persistent pulmonary vascular congestion. No significant change since prior chest x-ray today. Head CT 10/31/22 01:13 IMPRESSION: No acute intracranial pathology. Assessment and Plan (1) CHF exacerbation: Status: Acute (2) Hypertensive emergency: Status: Acute (3) End stage chronic kidney disease: Status: Acute Plan 72-year-old female with past medical history of ESRD on dialysis, paroxysmal AFib, presents to the hospital with complaints of shortness of breath as well as edema found to have CHF exacerbation # acute CHF exacerbation - possibly secondary to volume overload verses in the setting of hypertensive flash pulmonary edema - last echo from December 2020 showed ejection fraction of 40-45% - will treat with IV Lasix, low-sodium diet, strict I&O, and daily weight - cardiology consulted - echocardiogram - continue home carvedilol # hypertensive emergency - patient on multiple antihypertensives at home - difficult to control her BP, - was started on nitro drip, currently better improved, nitro drip stopped, resume her home medication, p.r.n. hydralazine as needed. Continue clonidine patch - monitor BP closely # ESRD on dialysis - patient in volume overload - will consult Nephrology for dialysis # paroxysmal AFib - continue carvedilol and Eliquis # DVT prophylaxis: Eliquis given patient's acute CHF exacerbation, hypertensive emergency patient will require minimum 2 night inpatient hospital stay for further management and monitoring Time Spent With Patient Time: Total time managing care of this patient today ____ minutes. Quality Stroke Does the patient have a stroke diagnosis?: No VTE Prior VTE?: No VTE Risk Level:: Medical - moderate - high VTE Device Contraindication: Treatment Not Indicated VTE Drug Contraindication: N/A - Med Ordered
[2022-10-31] MEDS: Nitroglycerin 0.4 MG PATCH.TD24 TRANSDERMA ×2 (06:13→09:47)
[2022-10-31] MEDS: cloNIDine 0.2 MG PATCH.TDWK TRANSDERMA (06:13)
[2022-10-31] MEDS: amLODIPine Besylate 10 MG TABLET PO ×2 (06:21→08:02)
--- NOTE | 2022-10-31 06:34 | PC.NURSE ---
Iván sheehan stopped per Dr. Merida.
--- NOTE | 2022-10-31 06:46 | PC.NURSE ---
RN to RN report given to KADIE Aguila. Pt being transferred to room 452 and aware of plan of care.
[2022-10-31] MEDS: Apixaban 2.5 MG TABLET PO ×2 (08:02→21:04)
[2022-10-31] MEDS: Aspirin Enteric Coated 81 MG TABLET.DR PO (08:02)
[2022-10-31] MEDS: FLUoxetine HCl 20 MG CAPSULE PO (08:02)
[2022-10-31] MEDS: carvediloL 12.5 MG TABLET PO (08:02)
[2022-10-31] MEDS: 0.9 % Sodium Chloride Flush 3 ML SYRINGE IVFLUSH (08:02)
[2022-10-31] MEDS: lisinopriL 20 MG TABLET PO ×2 (08:02→21:04)
[2022-10-31] MEDS: Sevelamer Carbonate Tablet 800 MG TABLET 1600 MG PO ×2 (08:03→21:04)
[2022-10-31] MEDS: Furosemide 40 MG/4 ML VIAL IVPUSH (08:03)
[2022-10-31 08:15] LABS: Troponin-I High Sensitivity 42.7 ng/L (<3.5-17.0)
[2022-10-31] MEDS: calcitrioL 0.25 MCG CAPSULE 0.5 MCG PO (08:17)
[2022-10-31] MEDS: Acetaminophen 325 MG TABLET 650 MG PO ×2 (08:26→17:29)
[2022-10-31 08:29] LABS: Alanine Aminotransferase 8 U/L (0-31); Albumin Level 3.4 g/dL (3.5-5.0); Alkaline Phosphatase 100 U/L (39-117); Anion Gap 15 (12-20); Aspartate Amino Transferase 15 U/L (5-31); Bilirubin Total 0.6 mg/dL (0.0-1.0); Blood Urea Nitrogen 39 mg/dL (9-16); Calcium 9.3 mg/dL (8.4-10.2); Carbon Dioxide 26 mmol/L (22-29); Chloride 101 mmol/L (96-108); Creatinine Clr Calc Pharmacy 10.3; Estimated Glomerular Filt Rate 11; Glucose Random 95 mg/dL (60-115); Potassium 5.3 mmol/L (3.3-5.1); Sodium 137 mmol/L (135-145); Total Protein 7.1 g/dL (6.5-8.0)
--- NOTE | 2022-10-31 09:10 | MHC.CM.PN ---
CM met with Patient at bedside and addressed IMM with her, providing her with the original and placing a copy on the chart. Patient lives in an apartment with her Daughter/HCP and her 10 year old Granddaughter, and she uses a walker to assist with mobility. Patient receives her HD at [facility] in [place] and she is active with [facility]. Home/resume said services is the goal and CM has initiated and will follow for dc planning. Patient is tiffany claros and her PCP is Dr. Ayah Villalta.
--- NOTE | 2022-10-31 09:29 | HO.PM.IMPN ---
Subjective Subjective Date of Service: 10/31/22 Interval History: sob, diffuse pain Physical Exam Vital Signs: Vital Signs: Last Vital Signs Temp 97.2 F 10/31/22 07:37 Pulse 73 10/31/22 07:54 Resp 20 10/31/22 07:37 BP 178/8 H 10/31/22 07:54 Pulse Ox 98 10/31/22 07:37 O2 Del Method 10/31/22 07:37 O2 Flow Rate 3 10/31/22 07:37 BMI result Body Mass Index 22.8 General: AO X 3, anxious Resp: CTA bilateral, accessory muscles used CVS: S1,S2,RRR GI: soft, non tender, non distended Neuro: motor grossly intact, alert Psych: appropriate affect, appropriate insight Objective Data Active Medications Acetaminophen (Acetaminophen 325 Mg Tablet) 650 mg PO Q6H PRN PRN Reason: Pain, Mild (Pain Scale 1-3) Last Admin: 10/31/22 08:26 Dose: 650 mg Documented By: MERLE Amlodipine Besylate (Amlodipine Besylate 10 Mg Tablet) 10 mg PO DAILY [facility]; Protocol Last Admin: 10/31/22 08:02 Dose: 10 mg Documented By: MERLE Apixaban (Apixaban 2.5 Mg Tablet) 2.5 mg PO BID [facility] Last Admin: 10/31/22 08:02 Dose: 2.5 mg Documented By: MERLE Aspirin (Aspirin Enteric Coated 81 Mg Tablet.Dr) 81 mg PO DAILY [facility] Last Admin: 10/31/22 08:02 Dose: 81 mg Documented By: MERLE Calcitriol (Calcitriol 0.25 Mcg Capsule) 0.[facility] Last Admin: 10/31/22 08:17 Dose: 0.5 mcg Documented By: MERLE Carvedilol (Carvedilol 12.5 Mg Tablet) 12.5 mg PO BID [facility]; Protocol Last Admin: 10/31/22 08:02 Dose: 12.5 mg Documented By: MERLE Clonidine (Clonidine 0.2 Mg Patch.Tdwk) 0.2 mg TRANSDERMA Mo [facility]; Protocol Last Admin: 10/31/22 06:13 Dose: 0.2 mg Documented By: AILYN Docusate Sodium (Docusate Sodium 100 Mg Capsule) 100 mg PO DAILY PRN PRN Reason: Constipation Fluoxetine HCl (Fluoxetine Hcl 20 Mg Capsule) 20 mg PO DAILY [facility] Last Admin: 10/31/22 08:02 Dose: 20 mg Documented By: MERLE Furosemide (Furosemide 40 Mg/4 Ml Vial) 40 mg IVPUSH DAILY [facility]; Protocol Last Admin: 10/31/22 08:03 Dose: 40 mg Documented By: MERLE Lisinopril (Lisinopril 20 Mg Tablet) 20 mg PO BID [facility]; Protocol Last Admin: 10/31/22 08:02 Dose: 20 mg Documented By: MERLE Morphine Sulfate (Morphine Sulfate 2 Mg/Ml Cartridge) 2 mg IVPUSH Q4H PRN; Protocol PRN Reason: Pain, Moderate (Pain Scale 4-6 Nitroglycerin (Nitroglycerin 0.4 Mg Patch.Td24) 0.4 mg TRANSDERMA DAILY [facility]; Protocol Last Admin: 10/31/22 06:13 Dose: 0.4 mg Documented By: AILYN Ondansetron HCl (Ondansetron Hcl 4 Mg/2 Ml Vial) 4 mg IVPUSH Q8H PRN PRN Reason: Nausea and Vomiting Sevelamer Carbonate (Sevelamer Carbonate Tablet 800 Mg Tablet) 1,600 mg PO BID [facility] Last Admin: 10/31/22 08:03 Dose: 1,600 mg Documented By: MERLE Sodium Chloride (0.9 % Sodium Chloride Flush 3 Ml Syringe) 3 ml IVFLUSH QSHIFT [facility] Last Admin: 10/31/22 08:02 Dose: 3 ml Documented By: MERLE Trazodone HCl (Trazodone Hcl 100 Mg Tablet) 100 mg PO BEDTIME [facility] Labs 10/30/22 13:22 10/31/22 07:19 Labs: Laboratory Results - last 24 hr 10/30/22 10/30/22 10/30/22 13:22 13:22 13:22 MCV 98.4 H MCH 30.5 MCHC 31.0 RDW 15.4 Plt Count 212 D MPV 9.4 Immature Gran % (Auto) 0.6 H Neut % (Auto) 61.4 Lymph % (Auto) 24.9 [place] % (Auto) 10.8 Eos % (Auto) 1.9 Baso % (Auto) 0.4 Lymph # (Auto) 1.7 [place] # (Auto) 0.8 Eos # (Auto) 0.1 Baso # (Auto) 0.0 Abs Immat Gran (auto) 0.04 H Absolute Neuts (auto) 4.3 Absolute Nucleated RBC 0.000 Nucleated RBC % (auto) 0.0 D-Dimer High Sensitivty O2 Saturation ABG pH at Pt Temp ABG pCO2 at Pt Temp ABG pO2 at Pt Temp ABG HCO3 ABG Base Excess (Actual) VBG pH VBG pCO2 VBG pO2 VBG HCO3 VBG O2 Saturation VBG Base Excess Anion Gap 21 H Estim Creat Clear Calc 12.1 Estimated GFR 13 Random Glucose 88 Lactic Acid Calcium 9.1 Total Bilirubin 0.5 AST 22 ALT 9 Alkaline Phosphatase 135 H Troponin I High Sens B-Natriuretic Peptide 4158 H Total Protein 7.6 Albumin 3.6 COVID-19 ([place]) [employer] 10/30/22 10/30/22 10/30/22 13:22 13:22 14:15 MCV MCH MCHC RDW Plt Count MPV Immature Gran % (Auto) Neut % (Auto) Lymph % (Auto) [place] % (Auto) Eos % (Auto) Baso % (Auto) Lymph # (Auto) [place] # (Auto) Eos # (Auto) Baso # (Auto) Abs Immat Gran (auto) Absolute Neuts (auto) Absolute Nucleated RBC Nucleated RBC % (auto) D-Dimer High Sensitivty 425 O2 Saturation ABG pH at Pt Temp ABG pCO2 at Pt Temp ABG pO2 at Pt Temp ABG HCO3 ABG Base Excess (Actual) VBG pH VBG pCO2 VBG pO2 VBG HCO3 VBG O2 Saturation VBG Base Excess Anion Gap Estim Creat Clear Calc Estimated GFR Random Glucose Lactic Acid 1.0 Calcium Total Bilirubin AST ALT Alkaline Phosphatase Troponin I High Sens 31.4 H B-Natriuretic Peptide Total Protein Albumin COVID-19 ([place]) [employer] 10/30/22 10/31/22 10/31/22 22:18 00:37 04:43 MCV MCH MCHC RDW Plt Count MPV Immature Gran % (Auto) Neut % (Auto) Lymph % (Auto) [place] % (Auto) Eos % (Auto) Baso % (Auto) Lymph # (Auto) [place] # (Auto) Eos # (Auto) Baso # (Auto) Abs Immat Gran (auto) Absolute Neuts (auto) Absolute Nucleated RBC Nucleated RBC % (auto) D-Dimer High Sensitivty O2 Saturation 100.0 ABG pH at Pt Temp 7.46 H ABG pCO2 at Pt Temp 36 ABG pO2 at Pt Temp 118 H ABG HCO3 26 ABG Base Excess (Actual) 2.7 VBG pH 7.42 VBG pCO2 39 VBG pO2 100 VBG HCO3 26 VBG O2 Saturation 99.0 VBG Base Excess 1.8 Anion Gap Estim Creat Clear Calc Estimated GFR Random Glucose Lactic Acid Calcium Total Bilirubin AST ALT Alkaline Phosphatase Troponin I High Sens B-Natriuretic Peptide Total Protein Albumin COVID-19 ([place]) Negative COVID-19 Clin Com See Note 10/31/22 10/31/22 07:19 07:19 MCV MCH MCHC RDW Plt Count MPV Immature Gran % (Auto) Neut % (Auto) Lymph % (Auto) [place] % (Auto) Eos % (Auto) Baso % (Auto) Lymph # (Auto) [place] # (Auto) Eos # (Auto) Baso # (Auto) Abs Immat Gran (auto) Absolute Neuts (auto) Absolute Nucleated RBC Nucleated RBC % (auto) D-Dimer High Sensitivty O2 Saturation ABG pH at Pt Temp ABG pCO2 at Pt Temp ABG pO2 at Pt Temp ABG HCO3 ABG Base Excess (Actual) VBG pH VBG pCO2 VBG pO2 VBG HCO3 VBG O2 Saturation VBG Base Excess Anion Gap 15 Estim Creat Clear Calc 10.3 Estimated GFR 11 Random Glucose 95 Lactic Acid Calcium 9.3 Total Bilirubin 0.6 AST 15 ALT 8 Alkaline Phosphatase 100 Troponin I High Sens 42.7 H B-Natriuretic Peptide Total Protein 7.1 Albumin 3.4 L COVID-19 ([place]) COVID-19 Clin Com Assessment and Plan (1) End stage chronic kidney disease: Status: Acute Plan 72F PMH ESRD on dialysis, paroxysmal AFib, HTN, chronic chf with recovered EF and diastolic dysfunction, CAD s/p CABG (2020), mood disorder, presented to the hospital with complaints of shortness of breath as well as edema found to be severely hypertensive dyspnea due to acute on chronic CHF with recovered EF and hypetensive emergency in patient with ESRD continue amlodipine, nitro TD, coreg, hydralazine, clonidine, lisinopril, coreg lasix drip will need HD (has pemacath AVF not functioning) paroxysmal afib ge dick CAD s/p CABG elikapil steiner mood disorder prozac DVT prophylaxis:? Ge full code reason for continued hospitalization:sob, elevated bp Time Spent With Patient Time: Total time managing care of this patient today ____ minutes. Quality Stroke Does the patient have a stroke diagnosis?: No VTE Prior VTE?: No VTE Risk Level:: Medical - moderate - high VTE Device Contraindication: Treatment Not Indicated VTE Drug Contraindication: N/A - Med Ordered
[2022-10-31] MEDS: Morphine Sulfate 2 MG/ML CARTRIDGE IVPUSH ×2 (09:47→23:11)
--- NOTE | 2022-10-31 10:00 | P.CONCA_ITS ---
History of Present Illness History of Present Illness Date of Service: 10/31/22 Requesting physician: Justin Hernandez Consult reason: congestive heart failure Chief complaint: CHF, hypertensive emergency. Narrative: I was consulted to see Erasto in cardiology consultation today for shortness of breath with decompensated heart failure and uncontrolled blood pressure. She is a 72-year-old female with complicated prior history with history of prior ischemic cardiomyopathy, then undergoing cardiac catheterization which had shown severe left main disease, underwent 3 vessel coronary artery bypass grafting 2020 including CESPEDES to LAD and SVG to diagonal and OM territory with no revascularization of the RCA. Patient subsequently in June had an echocardiogram which had shown normalized LV systolic function with advanced diastolic dysfunction. She has end-stage renal disease currently on hemodialysis. Also has history of paroxysmal atrial fibrillation on oral anticoagulation. Patient says ever since the have put a fistula in the left arm she has had issues. Her blood pressure is not well controlled. She has generalized swelling. The last dialysis session she was still short of breath and had significant leg edema are not despite after being the dialyzed. She did mention this to the nurse and said that they would dialyze the next on Monday. She came to the hospital with worsening shortness of breath, diffuse edema of both extremities and lower extremity. She also noted to be anemic on admission compared to prior hemoglobin hematocrit. Also noted to have significantly elevated blood pressure. She has been treatable blood pressure remains elevated at this point time. She is currently not getting any diuretics. She says that she still makes urine. Review of Systems Constitutional: Constitutional: Reports weakness Cardiovascular: Cardiovascular: Denies chest pain, Denies rapid heart rate, Reports leg edema, Denies lightheadedness, Denies Loss of Consciousness, Denies palpitations and Reports dyspnea Respiratory: Respiratory: Denies cough and Reports dyspnea Gastrointestinal: Gastrointestinal: Reports no additional gastrointestinal com plaints Integumentary/Breasts: Skin/Breast: Reports system reviewed and no additional complaints, except as docu Neurologic: Reports system reviewed and no additional complaints, except as documented and Reports weakness Psychiatric: Psychiatric: Reports no additional psychiatric complaints Endocrine: Endocrine: Reports no additional endocrine complaints and Denies palpitations PMFSH Past Medical History Medical History Anemia Asthmatic bronchitis CKD (chronic kidney disease), stage IV Depression DVT (deep venous thrombosis) GERD (gastroesophageal reflux disease) History of ectopic Hypertension Family History Family History Father No problems noted. Mother No problems noted. Surgical History Surgical History H/O colonoscopy History of carpal tunnel release of both wrists History of left knee replacement History of rectal surgery Status post total replacement of right shoulder Social History Social History Household Members: Children Housing: House Do you presently have visiting nurse or other home services: Yes Alcohol intake: unknown Patient Tobacco Use Status: Never used Tobacco Cigarettes Per Day: 1 Advance Directives Date on File: 10/31/22 service: No Current occupational status: retired Current occupation: young,right handed Meds Allergies Allergy/AdvReac Type Severity Reaction Status Date / Time atenolol [ATENOLOL] Allergy Unknown DIFF Verified 09/26/22 07:24 BREATHING, heart races. amphetamine [Adderall] AdvReac Unknown shortness Verified 09/26/22 07:24 of breath dextroamphetamine [Adderall] AdvReac Unknown shortness Verified 09/26/22 07:24 of breath Active Medications: Current Medications Acetaminophen (Acetaminophen 325 Mg Tablet) 650 mg PO Q6H PRN PRN Reason: Pain, Mild (Pain Scale 1-3) Last Admin: 10/31/22 08:26 Dose: 650 mg Amlodipine Besylate (Amlodipine Besylate 10 Mg Tablet) 10 mg PO DAILY [facility]; Protocol Last Admin: 10/31/22 08:02 Dose: 10 mg Apixaban (Apixaban 2.5 Mg Tablet) 2.5 mg PO BID [facility] Last Admin: 10/31/22 08:02 Dose: 2.5 mg Aspirin (Aspirin Enteric Coated 81 Mg Tablet.) 81 mg PO DAILY [facility] Last Admin: 10/31/22 08:02 Dose: 81 mg Calcitriol (Calcitriol 0.25 Mcg Capsule) 0.5 mcg PO MoWeFr [facility] Last Admin: 10/31/22 08:17 Dose: 0.5 mcg Carvedilol (Carvedilol 12.5 Mg Tablet) 25 mg PO BID [facility]; Protocol Clonidine (Clonidine 0.2 Mg Patch.Tdwk) 0.2 mg TRANSDERMA Mo [facility]; Protocol Last Admin: 10/31/22 06:13 Dose: 0.2 mg Docusate Sodium (Docusate Sodium 100 Mg Capsule) 100 mg PO DAILY PRN PRN Reason: Constipation Fluoxetine HCl (Fluoxetine Hcl 20 Mg Capsule) 20 mg PO DAILY [facility] Last Admin: 10/31/22 08:02 Dose: 20 mg Hydralazine HCl (Hydralazine Hcl 25 Mg Tablet) 25 mg PO BID [facility]; Protocol Furosemide 200 mg/ Sodium (Chloride) 100 mls @ 2.5 mls/hr IVCONT .Q24H [facility] Lisinopril (Lisinopril 20 Mg Tablet) 20 mg PO BID [facility]; Protocol Last Admin: 10/31/22 08:02 Dose: 20 mg Morphine Sulfate (Morphine Sulfate 2 Mg/Ml Cartridge) 2 mg IVPUSH Q4H PRN; Protocol PRN Reason: Pain, Moderate (Pain Scale 4-6 Last Admin: 10/31/22 09:47 Dose: 2 mg Nitroglycerin (Nitroglycerin 0.4 Mg Patch.Td24) 0.4 mg TRANSDERMA DAILY [facility]; Protocol Last Admin: 10/31/22 09:47 Dose: 0.4 mg Ondansetron HCl (Ondansetron Hcl 4 Mg/2 Ml Vial) 4 mg IVPUSH Q8H PRN PRN Reason: Nausea and Vomiting Sevelamer Carbonate (Sevelamer Carbonate Tablet 800 Mg Tablet) 1,600 mg PO BID [facility] Last Admin: 10/31/22 08:03 Dose: 1,600 mg Sodium Chloride (0.9 % Sodium Chloride Flush 3 Ml Syringe) [facility] Last Admin: 10/31/22 08:02 Dose: 3 ml Trazodone HCl (Trazodone Hcl 100 Mg Tablet) 100 mg PO BEDTIME [facility] Home Medications Medication Instructions Recorded Confirmed Last Taken Type amlodipine 10 mg tablet 10 mg PO DAILY 08/10/20 10/30/22 10/30/22 History calcitriol 0.5 mcg capsule 0.5 mcg PO 3XW 12/09/20 10/30/22 Unknown History acetaminophen 500 mg tablet 500 mg PO Q6H PRN Pain 10/30/22 10/30/22 Unknown History apixaban 2.5 mg tablet (Eliquis) 1 tab PO BID 10/30/22 10/30/2223 History carvedilol 12.5 mg tablet 12.5 mg PO BID 10/30/22 10/30/22 10/30/22 History clonidine 0.2 mg/24 hr weekly 1 patch topical QWEEK 10/30/22 10/30/22 Unknown History transdermal patch fluoxetine 20 mg capsule 1 cap PO DAILY 10/30/22 10/30/22 10/30/22 History lisinopril 20 mg tablet 1 tab PO BID 10/30/22 10/30/22 10/30/22 History sevelamer HCl 800 mg tablet 1,600 mg PO BID 10/30/22 10/30/22 10/30/22 History (Renagel) trazodone 100 mg tablet 1 tab PO BEDTIME 10/30/22 10/30/22 Unknown History Physical Exam Vital Signs: Vital Signs: Last Vital Signs Temp 97.2 F 10/31/22 07:37 Pulse 73 10/31/22 07:54 Resp 20 10/31/22 07:37 BP 178/8 H 10/31/22 07:54 Pulse Ox 98 10/31/22 07:37 O2 Del Method 10/31/22 07:37 O2 Flow Rate 3 10/31/22 07:37 BMI result Body Mass Index 22.8 Const: General: cooperative, alert, awake and in distress moderate and respiratory Nutritional Appearance: underweight Orientation/consciousness: patient oriented x3 HEENT: Head: Yes normocephalic and Yes atraumatic Neck: Neck: Yes trachea midline, Yes supple and Yes JVD Resp: Effort & Inspection: decreased respiratory effort Auscultation: no crackles, no wheezes and diminished lung sounds bilateral in the lower lung cannon Cardio: Jugular venous distension: JVD Rate: regular rate Rhythm: regular rhythm Heart sounds: S1 normal heart sound present, S2 normal heart sound present, no click, no gallops and Murmur heart sound present systolic early, decrescendo, crescendo and soft GI: Auscultation: normal bowel sounds Skin: General skin exam: no rashes or lesions noted and ecchymosis Neuro: General: patient oriented x3 and no focal motor deficits Extrem: General: No clubbing, No cyanosis and Yes edema Psych: Appearance: grossly normal Objective Labs and Meds 10/30/22 13:22 10/31/22 07:19 Lab results: Laboratory Results - last 24 hr 10/30/22 10/30/22 10/30/22 13:22 13:22 13:22 WBC 7.0 RBC 3.08 L D Hgb 9.4 L D Hct 30.3 L D MCV 98.4 H MCH 30.5 MCHC 31.0 RDW 15.4 Plt Count 212 D MPV 9.4 Immature Gran % (Auto) 0.6 H Neut % (Auto) 61.4 Lymph % (Auto) 24.9 Henderson % (Auto) 10.8 Eos % (Auto) 1.9 Baso % (Auto) 0.4 Lymph # (Auto) 1.7 Henderson # (Auto) 0.8 Eos # (Auto) 0.1 Baso # (Auto) 0.0 Abs Immat Gran (auto) 0.04 H Absolute Neuts (auto) 4.3 Absolute Nucleated RBC 0.000 Nucleated RBC % (auto) 0.0 D-Dimer High Sensitivty O2 Saturation ABG pH at Pt Temp ABG pCO2 at Pt Temp ABG pO2 at Pt Temp ABG HCO3 ABG Base Excess (Actual) VBG pH VBG pCO2 VBG pO2 VBG HCO3 VBG O2 Saturation VBG Base Excess Sodium 138 Potassium 5.5 H D Chloride 101 Carbon Dioxide 22 Anion Gap 21 H BUN 33 H Creatinine 3.53 H Estim Creat Clear Calc 12.1 Estimated GFR 13 Random Glucose 88 Lactic Acid Calcium 9.1 Total Bilirubin 0.5 AST 22 ALT 9 Alkaline Phosphatase 135 H Troponin I High Sens B-Natriuretic Peptide 4158 H Total Protein 7.6 Albumin 3.6 COVID-19 ([place]) COVID-19 Clin Com 10/30/22 10/30/22 10/30/22 13:22 13:22 14:15 WBC RBC Hgb Hct MCV MCH MCHC RDW Plt Count MPV Immature Gran % (Auto) Neut % (Auto) Lymph % (Auto) Henderson % (Auto) Eos % (Auto) Baso % (Auto) Lymph # (Auto) Henderson # (Auto) Eos # (Auto) Baso # (Auto) Abs Immat Gran (auto) Absolute Neuts (auto) Absolute Nucleated RBC Nucleated RBC % (auto) D-Dimer High Sensitivty 425 O2 Saturation ABG pH at Pt Temp ABG pCO2 at Pt Temp ABG pO2 at Pt Temp ABG HCO3 ABG Base Excess (Actual) VBG pH VBG pCO2 VBG pO2 VBG HCO3 VBG O2 Saturation VBG Base Excess Sodium Potassium Chloride Carbon Dioxide Anion Gap BUN Creatinine Estim Creat Clear Calc Estimated GFR Random Glucose Lactic Acid 1.0 Calcium Total Bilirubin AST ALT Alkaline Phosphatase Troponin I High Sens 31.4 H B-Natriuretic Peptide Total Protein Albumin COVID-19 ([place]) COVID-19 Clin Com 10/30/22 10/31/22 10/31/22 22:18 00:37 04:43 WBC RBC Hgb Hct MCV MCH MCHC RDW Plt Count MPV Immature Gran % (Auto) Neut % (Auto) Lymph % (Auto) Henderson % (Auto) Eos % (Auto) Baso % (Auto) Lymph # (Auto) Henderson # (Auto) Eos # (Auto) Baso # (Auto) Abs Immat Gran (auto) Absolute Neuts (auto) Absolute Nucleated RBC Nucleated RBC % (auto) D-Dimer High Sensitivty O2 Saturation 100.0 ABG pH at Pt Temp 7.46 H ABG pCO2 at Pt Temp 36 ABG pO2 at Pt Temp 118 H ABG HCO3 26 ABG Base Excess (Actual) 2.7 VBG pH 7.42 VBG pCO2 39 VBG pO2 100 VBG HCO3 26 VBG O2 Saturation 99.0 VBG Base Excess 1.8 Sodium Potassium Chloride Carbon Dioxide Anion Gap BUN Creatinine Estim Creat Clear Calc Estimated GFR Random Glucose Lactic Acid Calcium Total Bilirubin AST ALT Alkaline Phosphatase Troponin I High Sens B-Natriuretic Peptide Total Protein Albumin COVID-19 ([place]) Negative COVID-19 Clin Com See Note 10/31/22 10/31/22 07:19 07:19 WBC RBC Hgb Hct MCV MCH MCHC RDW Plt Count MPV Immature Gran % (Auto) Neut % (Auto) Lymph % (Auto) Henderson % (Auto) Eos % (Auto) Baso % (Auto) Lymph # (Auto) Henderson # (Auto) Eos # (Auto) Baso # (Auto) Abs Immat Gran (auto) Absolute Neuts (auto) Absolute Nucleated RBC Nucleated RBC % (auto) D-Dimer High Sensitivty O2 Saturation ABG pH at Pt Temp ABG pCO2 at Pt Temp ABG pO2 at Pt Temp ABG HCO3 ABG Base Excess (Actual) VBG pH VBG pCO2 VBG pO2 VBG HCO3 VBG O2 Saturation VBG Base Excess Sodium 137 Potassium 5.3 H Chloride 101 Carbon Dioxide 26 Anion Gap 15 BUN 39 H Creatinine 4.12 H* Estim Creat Clear Calc 10.3 Estimated GFR 11 Random Glucose 95 Lactic Acid Calcium 9.3 Total Bilirubin 0.6 AST 15 ALT 8 Alkaline Phosphatase 100 Troponin I High Sens 42.7 H B-Natriuretic Peptide Total Protein 7.1 Albumin 3.4 L COVID-19 ([place]) COVID-19 Clin Com Imaging Radiologist's impression: Impressions Chest X-Ray 10/30/22 14:10 IMPRESSION: Mild congestion with possible very small left pleural effusion and superjacent atelectasis. Chest X-Ray 10/30/22 17:43 IMPRESSION: Persistent pulmonary vascular congestion. No significant change since prior chest x-ray today. Head CT 10/31/22 01:13 IMPRESSION: No acute intracranial pathology. Assessment and Plan (1) CHF exacerbation: Status: Acute Decompensated congestive heart failure in this elderly woman with multiple comorbidities including end-stage renal disease on hemodialysis with probable under dialysis, hypertensive urgency with uncontrolled blood pressure as well as significant anemia probably blood loss anemia. She requires dialysis, Nephrology has been consulted. Better control blood pressure. Please increase carvedilol to 25 mg b.i.d. and add hydralazine to her regimen. Also consider starting her on Bumex drip till her dialysis is in place. Please obtain an echocardiogram. Also transfuse 1 unit of packed RBC given her unstable cardiac status to improve her respiratory status and reduce myocardial oxygen demand to maintain hematocrit over 30. Will continue to follow. Also consider renal duplex to evaluate for renal artery stenosis given heart failure and unc ontrolled blood pressure. (2) PAF (paroxysmal atrial fibrillation): Status: Acute Paroxysmal atrial fibrillation which is currently suppressed. Continue to maintain rhythm. Continue carvedilol therapy and up titrate as necessary. Currently on Eliquis for oral anticoagulation continue there unless she has a source of bleeding from GI tract. Consider stool occult blood given her recurrent anemia. Also discussed with Nephrology for replacement therapy for her anemia. (3) CAD (coronary artery disease): Status: Acute CAD status was 3 vessel coronary artery bypass grafting. Currently stable with no evidence of ischemia. Currently on full oral anticoagulation Eliquis will avoid aspirin therapy given her anemia and increased bleeding risk. Better control blood pressure is necessary. High-intensity statin therapy. Overall prognosis is guarded. Will continue to follow with you Time Spent With Patient Time: Total time managing care of this patient today ____ minutes. Procedures Date of Service Date of Service: 10/31/22
--- NOTE | 2022-10-31 11:01 | P.CONNP_ITS ---
History of Present Illness Reason for Consult Consult date: 10/31/22 Reason for consult: ESRD Requesting physician: Gilda Merida Chief Complaint Chief complaint: CHF, hypertensive emergency. History of Present Illness Narrative: ?72-year-old female with A l history of paroxysmal AFib, CHF,? ESRD on dialysis X 2 YEARS [facility]IA [facility], CAD with history of NSTEMI presents to the hospital with complaints of diffuse swelling of her legs and arms.? It appears the patient has been having swelling in her arms since the placement of her fistula 4 months ago.? She reported increasing shortness of breath and anxiety, has been having difficulty taking deep breaths.? She denied fever, chills, nausea vomiting, diarrhea constipation, melena hematochezia, headache or vision changes to the ED provider. ?it appears that patient did complete her dialysis on Monday. She reproted this to the dialysis nurse on monday and she feels no action was taken. She has been having progressively increasing swelling and difficulty breathing and says thi shas not been addressed. She is very unhappy with her outpatient care Review of Systems Constitutional: Denies anorexia and Denies fatigue Eyes: Denies blurry vision Denies dizziness Cardiovascular: Denies Abdominal Distension, Denies chest pain, Denies syncope, Reports leg edema and Reports dyspnea Respiratory: Denies chest congestion, Denies cough, Reports dyspnea and Denies wheezing Gastrointestinal: Denies abdominal pain, Denies bloating, Denies GI cramping and Denies diarrhea Genitourinary: Denies hematuria and Denies urinary urgency Musculoskeletal: Denies back pain and Denies arthralgias Denies confusion, Denies dizziness, Denies syncope and Denies focal weakness Psychiatric: Denies confusion Endocrine: Denies fatigue Allergic/Immunologic: Denies wheezing [facility] Past Medical History Medical History Anemia Asthmatic bronchitis CKD (chronic kidney disease), stage IV Depression DVT (deep venous thrombosis) GERD (gastroesophageal reflux disease) History of ectopic Hypertension Family History Family History Father No problems noted. Mother No problems noted. Surgical History Surgical History H/O colonoscopy History of carpal tunnel release of both wrists History of left knee replacement History of rectal surgery Status post total replacement of right shoulder Social History Social History Household Members: Children Housing: House Do you presently have visiting nurse or other home services: Yes Alcohol intake: unknown Patient Tobacco Use Status: Never used Tobacco Cigarettes Per Day: 1 Advance Directives Date on File: 10/31/22 service: No Current occupational status: retired Current occupation: young,right handed Meds Allergies Allergy/AdvReac Type Severity Reaction Status Date / Time atenolol [ATENOLOL] Allergy Unknown DIFF Verified 09/26/22 07:24 BREATHING, heart races. amphetamine [Adderall] AdvReac Unknown shortness Verified 09/26/22 07:24 of breath dextroamphetamine [Adderall] AdvReac Unknown shortness Verified 09/26/22 07:24 of breath Active Medications: Current Medications Acetaminophen (Acetaminophen 325 Mg Tablet) 650 mg PO Q6H PRN PRN Reason: Pain, Mild (Pain Scale 1-3) Last Admin: 10/31/22 08:26 Dose: 650 mg Amlodipine Besylate (Amlodipine Besylate 10 Mg Tablet) 10 mg PO DAILY [facility]; Protocol Last Admin: 10/31/22 08:02 Dose: 10 mg Apixaban (Apixaban 2.5 Mg Tablet) 2.5 mg PO BID [facility] Last Admin: 10/31/22 08:02 Dose: 2.5 mg Aspirin (Aspirin Enteric Coated 81 Mg Tablet.) 81 mg PO DAILY [facility] Last Admin: 10/31/22 08:02 Dose: 81 mg Calcitriol (Calcitriol 0.25 Mcg Capsule) 0.5 mcg PO MoWeFr [facility] Last Admin: 10/31/22 08:17 Dose: 0.5 mcg Carvedilol (Carvedilol 12.5 Mg Tablet) 25 mg PO BID [facility]; Protocol Clonidine (Clonidine 0.2 Mg Patch.Tdwk) 0.2 mg TRANSDERMA Mo [facility]; Protocol Last Admin: 10/31/22 06:13 Dose: 0.2 mg Docusate Sodium (Docusate Sodium 100 Mg Capsule) 100 mg PO DAILY PRN PRN Reason: Constipation Fluoxetine HCl (Fluoxetine Hcl 20 Mg Capsule) 20 mg PO DAILY [facility] Last Admin: 10/31/22 08:02 Dose: 20 mg Hydralazine HCl (Hydralazine Hcl 25 Mg Tablet) 25 mg PO BID [facility]; Protocol Furosemide 200 mg/ Sodium (Chloride) 100 mls @ 2.5 mls/hr IVCONT .Q24H [facility] Lisinopril (Lisinopril 20 Mg Tablet) 20 mg PO BID [facility]; Protocol Last Admin: 10/31/22 08:02 Dose: 20 mg Morphine Sulfate (Morphine Sulfate 2 Mg/Ml Cartridge) 2 mg IVPUSH Q4H PRN; Protocol PRN Reason: Pain, Moderate (Pain Scale 4-6 Last Admin: 10/31/22 09:47 Dose: 2 mg Nitroglycerin (Nitroglycerin 0.4 Mg Patch.Td24) 0.4 mg TRANSDERMA DAILY [facility]; Protocol Last Admin: 10/31/22 09:47 Dose: 0.4 mg Ondansetron HCl (Ondansetron Hcl 4 Mg/2 Ml Vial) 4 mg IVPUSH Q8H PRN PRN Reason: Nausea and Vomiting Sevelamer Carbonate (Sevelamer Carbonate Tablet 800 Mg Tablet) 1,600 mg PO BID [facility] Last Admin: 10/31/22 08:03 Dose: 1,600 mg Sodium Chloride (0.9 % Sodium Chloride Flush 3 Ml Syringe) 3 ml IVFLUSH QSHIFT [facility] Last Admin: 10/31/22 08:02 Dose: 3 ml Trazodone HCl (Trazodone Hcl 100 Mg Tablet) 100 mg PO BEDTIME [facility] Home Medications Medication Instructions Recorded Confirmed Last Taken Type amlodipine 10 mg tablet 10 mg PO DAILY 08/10/20 10/30/22 10/30/22 History calcitriol 0.5 mcg capsule 0.5 mcg PO 3XW 12/09/20 10/30/22 Unknown History acetaminophen 500 mg tablet 500 mg PO Q6H PRN Pain 10/30/22 10/30/22 Unknown History apixaban 2.5 mg tablet (Eliquis) 1 tab PO BID 10/30/22 10/30/22 10/30/22 History carvedilol 12.5 mg tablet 12.5 mg PO BID 10/30/22 10/30/22 10/30/22 History clonidine 0.2 mg/24 hr weekly 1 patch topical QWEEK 10/30/22 10/30/22 Unknown Hi story transdermal patch fluoxetine 20 mg capsule 1 cap PO DAILY 10/30/22 10/30/22 10/30/22 History lisinopril 20 mg tablet 1 tab PO BID 10/30/22 10/30/22 10/30/22 History sevelamer HCl 800 mg tablet 1,600 mg PO BID 10/30/22 10/30/22 10/30/22 History (Renagel) trazodone 100 mg tablet 1 tab PO BEDTIME 10/30/22 10/30/22 Unknown History Physical Exam Vital Signs: Last Vital Signs Temp 97.2 F 10/31/22 07:37 Pulse 73 10/31/22 07:54 Resp 20 10/31/22 07:37 BP 178/8 H 10/31/22 07:54 Pulse Ox 98 10/31/22 07:37 O2 Del Method 10/31/22 07:37 O2 Flow Rate 3 10/31/22 07:37 BMI result Body Mass Index 22.8 General: appearance normal, both eyes and all related structures Resp:?? Other: ?crackles bilaterally? Effort & Inspection: normal respiratory effort? Auscultation: clear to auscultation bilaterally Cardio:?? Rate: regular rate? Rhythm: regular rhythm GI:?? Palpation (GI): Soft to palpation? Auscultation: normal bowel sounds Skin:?? General skin exam: no rashes or lesions noted Extrem:?? Other: ?2+ edema in the lower extremities as well as of her? General: Yes normal to inspection Const General: No confusion Orientation/consciousness: No confusion Neuro General: No confusion Results Lab Results 10/30/22 13:22 10/31/22 07:19 Lab results: Chemistry 10/30/22 10/31/22 13:22 07:19 Sodium 138 137 Potassium 5.5 H D 5.3 H Carbon Dioxide 22 26 BUN 33 H 39 H Creatinine 3.53 H 4.12 H* Calcium 9.1 9.3 Hematology 10/30/22 13:22 WBC 7.0 Hgb 9.4 L D Plt Count 212 D Assessment and Plan (1) End stage chronic kidney disease: Status: Acute (2) CHF exacerbation: Status: Acute (3) Hypertensive emergency: Status: Acute Plan ESRD with fluid over load Accelerated HTN Mild Anemia due to CKD Mild hyperkalemia Plan Will arrange for 2 hr UF today Regular HD tomorrow and reassess Will optimize HCT with Epogen low salt diet Low K diet Since she is non oliguric, we could use oral diretics as weel, especially on non dialysis days Reassess BP after UF and adjust medications Time Spent With Patient Time: Total time managing care of this patient today ____ minutes. Procedures Date of Service Date of Service: 10/31/22
[2022-10-31] MEDS: hydrALAZINE HCl 25 MG TABLET PO ×2 (11:33→21:05)
[2022-10-31] MEDS: Furosemide 200 MG in 0.9 % Sodium Chloride 80 ML IVCONT (17:42)
--- NOTE | 2022-10-31 18:00 | PC.NURSE ---
this RN had hard time to get an iv access for the pt. pt finished 1 unit of RBC while doing dialysis. then IR nurse successfully place a new IV for pt. Started IV LAsix gtt late due to no IV access.
[2022-10-31] MEDS: ondansetron HCL 4 MG/2 ML VIAL IVPUSH (21:01)
[2022-10-31] MEDS: carvediloL 12.5 MG TABLET 25 MG PO (21:04)
[2022-10-31] MEDS: traZODone HCL 100 MG TABLET PO (21:05)
[2022-11-01] VITALS (8 sets, daily range): BP systolic 152–172; BP diastolic 68–88; PULSE 63–74; RESP 18–20; TEMP 36.3–37.1; O2SAT 92–100; BMI 22.4
[2022-11-01] MEDS: 0.9 % Sodium Chloride Flush 3 ML SYRINGE IVFLUSH (00:36)
[2022-11-01 06:30] LABS: Hematocrit 27.7 % (37.0-47.0); Hemoglobin 8.8 g/dl (12.0-16.0); Mean Corpuscular HGB Conc 31.8 g/dl (31.0-35.0); Mean Corpuscular Hemoglobin 30.7 pg (27.0-33.0); Mean Corpuscular Volume 96.5 fL (80.0-98.0); Mean Platelet Volume 10.1 fL (9.4-12.3); Platelet Count 162 X10*3/uL (160-400); Red Blood Count 2.87 X10*6/uL (4.20-5.50); Red Cell Distribution Width 16.1 % (11.0-16.0); White Blood Count 5.5 X10*3/uL (4.8-10.8)
[2022-11-01 06:58] LABS: Anion Gap 17 (12-20); Blood Urea Nitrogen 48 mg/dL (9-16); Calcium 8.6 mg/dL (8.4-10.2); Carbon Dioxide 24 mmol/L (22-29); Chloride 102 mmol/L (96-108); Creatinine Clr Calc Pharmacy 8.9; Estimated Glomerular Filt Rate 9; Glucose Fasting 80 mg/dL (60-99); Sodium 137 mmol/L (135-145)
--- NOTE | 2022-11-01 07:00 | CA_ITS ---
Transthoracic Echocardiogram Patient (Last, First, Middle): Maryam Ramos A Gender: Female Date of : 1950 Age: 72 Procedure Date: 11/01/2022 Procedure Type: Transthoracic Echocardiogram Location: [facility] [place] Height: 162.56 cm Weight: 57.15 kg BSA: 1.61 m2 Heart Rate: bpm BP: 164 / 80 mmHg Cyanide Pot Hardener: Referring MD: Gilda Merida MD Top Steep Tender: Flavio Solis MD Symptoms: CHF, Study Quality: Adequate ECG Rhythm: Sinus Conclusions: - 1. Mildly reduced LV systolic function with LVEF of 45-50% with mild LVH with grade 3 diastolic dysfunction 2. Mild RV enlargement with mildly reduced RV systolic function 3. Severely enlarged left atrium next 4. At least moderate aortic stenosis 5. Normal measured RV systolic pressure 6. No gross pericardial effusion Findings Left Ventricle Normal left ventricular cavity size. There is mildly increased left ventricular wall thickness. The left ventricular systolic function is mildly decreased. The visually estimated ejection fraction is between 45-50%. Spectral Doppler is indicative of a restrictive filling pattern. E/E prime ratio is >15, consistent with elevated filling pressures. Evidence suggests grade III (severe) diastolic dysfunction. Right Ventricle Mildly increased right ventricular cavity size. There is mildly decreased right ventricular systolic function. Atria The left atrium is severely dilated. Interatrial shunt cannot be excluded. The right atrium is mildly dilated. Aortic Valve The aortic valve was not well visualized. There is moderate calcification of the aortic valve. There is moderate aortic valve stenosis. The peak aortic gradient is 33 mmHg.The mean gradient is 21 mmHg. There is no aortic valve regurgitation. Mitral Valve There is mild anterior and moderate posterior mitral leaflet thickening. There is moderate mitral annular calcification. There is mild mitral valve regurgitation. Pulmonic Valve The pulmonic valve was not well visualized. Tricuspid Valve Normal tricuspid valve structure. There is mild tricuspid valve regurgitation. The right ventricular systolic pressure is normal. Normal right atrial pressure. There is no evidence of pulmonary hypertension. Great Vessels All visible segments of the aorta are normal in size. The pulmonary artery was not well visualized. Venous The inferior vena cava is normal in size and collapses greater than 50% with inspiration. Pericardium/Pleural There is no evidence of pericardial effusion. There is a moderate left sided pleural effusion. Prior Study Comparison Changes noted compared to prior study dated: 12/14/2020. Aortic stenosis is worse Measurements 2D Linear Measurements IVSd: 1.23 0.6-0.9/0.6-1.0 cm LVIDd: 4.83 3.9-5.3/4.2-5.9 cm LVIDd Index: 3.00 2.4-3.2/2.2-3.1 cm/m2 LVIDs: 3.50 2.0-3.6 cm LVPWd: 1.26 0.7-1.1 cm Ao Root: 2.90 2.1-3.5 cm LA Diam: 4.20 2.7-3.8/3.0-4.0 cm LAIDs Index: 2.61 1.5-2.3 cm/m2 LV Mass: 290.73 67-162/88-224 g LV Mass Index: 180.58 43-95/49-115 g/m2 LVOT Diam: 1.90 3.0+(-)1.3 cm 2D Systolic Function EF 4C: 46.10 >55% EF 2C: 45.50 >55% EF BiP: 45.90 >55% Mitral Valve MV VTI: 0.49 MV Pk Nirmal: 1.36 MV Mn Nirmal: 0.69 MV Pk Grad: 7.00 MV Mn Grad: 2.00 MV Pk E: 1.24 MV PK A: 0.65 MV Decel Time: 231.00 E/A: 1.90 E'Lateral: 6.42 E'Medial: 4.57 E/E' Med: 27.10 E/E' Lat: 19.30 PHT: 68.00 MVA PHT: 3.24 MVA Continuity: 1.45 Decel [place]: 5.35 Aortic Valve AoV Pk Nirmal: 2.89 AoV Mn Nirmal: 2.14 AoV VTI: 0.69 AoV Pk Grad: 33.00 Aov Mn Grad: 21.00 LAVERN Cont.VTI: 1.02 LVOT LVOT Pk Nirmal: 1.08 LVOT Mn Nirmal: 0.71 LVOT VTI: 0.25 LVOT Pk Grad: 5.00 LVOT Mn Grad: 2.00 LVOT Diam: 1.90 LVOT Area: 2.84 Diastolic Function MV Pk E: 1.24 MV Pk A: 0.65 E/A: 1.90 E'Medial: 4.57 E/E' Med: 27.10 E' Laterial: 6.42 E/E' Lat: 19.30 Right Ventricle TAPSE (mm): 15.00 Tricuspid Valve TR Pk Nirmal: 2.70 TR Pk Grad: 29.00 RA Press: 3.00 RVSP: 32.00 Great Vessels Aorta Ao Root-2D: 2.90 2.0-3.7 cm Ao Asc: 3.40 2.1-3.4 cm Pulmonary Valve PV Pk Nirmal: 0.95 Peak PV Grad: 4.00 Updated in Other Vendor System with Status of Final Flavio Solis MD electronically signed on 11/01/2022 4:40:29 PM with status of Final
--- NOTE | 2022-11-01 10:01 | PM.PNCARD ---
Subjective Subjective Date of Service: 11/01/22 Principal diagnosis: Hypertensive urgency and congestive heart failure. Interval history: Patient underwent fluid removal yesterday of 3.1 L. Currently getting dialysis. She says she feels a lot better and breathing a lot better. Blood pressure is better controlled. Although the blood pressure reading just now he still elevated at systolic blood pressure 164. She denies any chest pain. She says the leg edema significantly improved. She also received 1 unit of packed RBC yesterday Review of Systems Constitutional: Reports weakness Cardiovascular: Reports no additional cardiovascular complaints Respiratory: Reports no additional respiratory complaints Gastrointestinal: Reports no additional gastrointestinal complaints Musculoskeletal: Reports no additional musculoskeletal complaints Reports weakness Endocrine: Reports no additional endocrine complaints Physical Exam Vital Signs: Last Vital Signs Temp 98.6 F 11/01/22 07:18 Pulse 74 11/01/22 07:18 Resp 20 11/01/22 07:18 BP 164/88 H 11/01/22 07:18 Pulse Ox 97 11/01/22 07:18 O2 Del Method 11/01/22 07:18 O2 Flow Rate 3 11/01/22 07:18 BMI result Body Mass Index 22.4 Const General: cooperative, comfortable, no acute distress, alert, awake and tired appearing Nutritional Appearance: underweight Orientation/consciousness: patient oriented x3 Neck Neck: Yes trachea midline, Yes supple and Yes no JVD Resp Effort & Inspection: normal respiratory effort Auscultation: diminished lung sounds Cardio Jugular venous distension: no JVD Palpation: normal PMI Rate: regular rate Rhythm: regular rhythm Heart sounds: S1 normal heart sound present, S2 normal heart sound present, no click, no gallops and Murmur heart sound present systolic Skin General skin exam: no rashes or lesions noted and ecchymosis Neuro General: patient oriented x3 and no focal motor deficits Extrem General: Yes no clubbing, cyanosis or edema Objective Labs and Meds 11/01/22 05:56 11/01/22 05:56 Lab results: Laboratory Results - last 24 hr 10/31/22 11/01/22 11/01/22 10:03 05:56 05:56 WBC 5.5 RBC 2.87 L Hgb 8.8 L Hct 27.7 L MCV 96.5 MCH 30.7 MCHC 31.8 RDW 16.1 H Plt Count 162 MPV 10.1 Absolute Nucleated RBC 0.000 Nucleated RBC % (auto) 0.0 Sodium 137 Potassium 6.0 H* Chloride 102 Carbon Dioxide 24 Anion Gap 17 BUN 48 H Creatinine 4.75 H* Estim Creat Clear Calc 8.9 Estimated GFR 9 Fasting Glucose 80 Calcium 8.6 D Blood Type B Positive Antibody Screen POSITIVE Antibody Identification Anti-E Antigen Identification E Antigen - NEGATIVE NATALIE, Polyspecific NEGATIVE Positive NATALIE Work-up TNP Crossmatch See Detail Crossmatch (AHG) See Detail Progress Note: A&P Assessment and plan (1) CHF exacerbation: Status: Acute Assessment and Plan: CHF exacerbation with fluid removal yesterday. Patient is looking a lot better today and breathing is significantly improved. If she looks good by tomorrow can potentially discharge if her blood pressure is better controlled. Continue aggressive blood pressure control. If blood pressure remains elevated increase hydralazine to 50 mg b.i.d.. Continue carvedilol as well as amlodipine. Avoidance of high salt diet was discussed. She requires better management of her dry weight through dialysis is and the long run. (2) CAD (coronary artery disease): Status: Acute Assessment and Plan: CAD which is stable. No symptoms of angina. Continue Eliquis therapy for oral anticoagulation. Will avoid aspirin therapy given her anemia and high bleeding risk. Continue better blood pressure control. Continue high-intensity statin therapy. Can be followed as outpatient may require ischemic workup given her recurrent heart failure syndrome. (3) PAF (paroxysmal atrial fibrillation): Status: Acute Assessment and Plan: Paroxysmal atrial fibrillation which has remained suppressed. Will continue to pursue rhythm control approach. Currently on full oral anticoagulation Eliquis. If she remains persistently anemic as outpatient may require further GI/Hematology workup. Will sign of the case at this point time. Thank you for allowing me to partake in her care Time Spent With Patient Time: Total time managing care of this patient today ____ minutes. Progress Note: Quality Stroke Does the patient have a stroke diagnosis?: No Procedures Date of Service Date of Service: 11/01/22
--- NOTE | 2022-11-01 11:20 | P.PNNPD_ITS ---
Subjective Subjective Principal diagnosis: Hypertensive urgency and congestive heart failure. This patient was seen during dialysis. Interval history: Had UF yesterday Feels much better Leg edema triana simproved Breathing is better Physical Exam Vital Signs: Vital Signs: Last Vital Signs Temp 98.6 F 11/01/22 07:18 Pulse 74 11/01/22 07:18 Resp 20 11/01/22 07:18 BP 164/88 H 11/01/22 07:18 Pulse Ox 97 11/01/22 07:18 O2 Del Method 11/01/22 07:18 O2 Flow Rate 3 11/01/22 07:18 BMI result Body Mass Index 22.4 Const: General: No confusion Orientation/consciousness: No confusion Neuro: General: No confusion Assessment & Plan Assessment and plan (1) End stage chronic kidney disease: Status: Acute (2) CHF exacerbation: Status: Acute (3) Hypertensive emergency: Status: Acute Plan ESRD with fluid over load Accelerated HTN Mild Anemia due to CKD Mild hyperkalemia Plan HD on TTS Will optimize HCT with Epogen low salt diet Low K diet Since she is non oliguric, we could use oral diretics as well, especially on non dialysis days - Lasix 80 mg Can D Cfoley Out pt dialysis at [facility] as per patients request Time Spent With Patient Time: Total time managing care of this patient today ____ minutes. Procedures Date of Service Date of Service: 11/01/22
[2022-11-01] MEDS: Acetaminophen 325 MG TABLET 650 MG PO (11:52)
[2022-11-01] MEDS: Sevelamer Carbonate Tablet 800 MG TABLET 1600 MG PO ×2 (13:09→19:53)
[2022-11-01] MEDS: hydrALAZINE HCl 25 MG TABLET PO ×2 (13:09→19:53)
[2022-11-01] MEDS: Apixaban 2.5 MG TABLET PO ×2 (13:09→19:53)
[2022-11-01] MEDS: Aspirin Enteric Coated 81 MG TABLET.DR PO (13:10)
[2022-11-01] MEDS: FLUoxetine HCl 20 MG CAPSULE PO (13:10)
[2022-11-01] MEDS: amLODIPine Besylate 10 MG TABLET PO (13:10)
[2022-11-01] MEDS: lisinopriL 20 MG TABLET PO ×2 (13:10→19:53)
[2022-11-01] MEDS: Nitroglycerin 0.4 MG PATCH.TD24 TRANSDERMA (13:11)
[2022-11-01] MEDS: carvediloL 12.5 MG TABLET 25 MG PO ×2 (13:11→19:53)
[2022-11-01] MEDS: Morphine Sulfate 2 MG/ML CARTRIDGE IVPUSH ×2 (13:32→19:47)
[2022-11-01] MEDS: Furosemide 200 MG in 0.9 % Sodium Chloride 80 ML IVCONT (16:27)
[2022-11-01] MEDS: traZODone HCL 100 MG TABLET PO (19:53)
[2022-11-02 03:40] VITALS: BP 146/68; PULSE 60; RESP 20; TEMP 36.8; O2SAT 97
[2022-11-02 05:27] LABS: HBS Num1 > 1000.00 mIU/mL (0-7.99); HBc Num1 0.09 S/CO (0.00-0.79); HBsAGNum1 0.34 S/CO (0.00-0.99); Hepatitis B Core Antibody Nonreactive (Nonreactive); Hepatitis B Surface Antigen Negative (Negative); ~Hepatitis B Surface Antibody REACTIVE (Nonreactive)
[2022-11-02 06:00] VITALS: BMI 21.7
--- NOTE | 2022-11-02 06:30 | PC.NURSE ---
Incont of mod amt urine.Bladder scan for 162.
[2022-11-02 07:30] VITALS: BP 183/92; PULSE 60; RESP 18; TEMP 36.9; O2SAT 96
[2022-11-02] MEDS: Nitroglycerin 0.4 MG PATCH.TD24 TRANSDERMA (09:54)
[2022-11-02] MEDS: FLUoxetine HCl 20 MG CAPSULE PO (09:55)
[2022-11-02] MEDS: Apixaban 2.5 MG TABLET PO ×2 (09:55→21:02)
[2022-11-02] MEDS: Aspirin Enteric Coated 81 MG TABLET.DR PO (09:55)
[2022-11-02] MEDS: lisinopriL 20 MG TABLET PO ×2 (09:55→21:02)
[2022-11-02] MEDS: amLODIPine Besylate 10 MG TABLET PO (09:56)
[2022-11-02] MEDS: hydrALAZINE HCl 25 MG TABLET PO ×2 (09:56→13:39)
[2022-11-02] MEDS: Sevelamer Carbonate Tablet 800 MG TABLET 1600 MG PO ×2 (09:56→21:01)
[2022-11-02] MEDS: carvediloL 12.5 MG TABLET 25 MG PO ×2 (09:56→21:02)
--- NOTE | 2022-11-02 10:01 | P.PNCA_ITS ---
Subjective Subjective Date of Service: 11/02/22 Principal diagnosis: Hypertensive urgency and congestive heart failure. Interval history: Maryam feels better today. No shortness of breath. Leg edema remains improved. Blood pressure on this morning's check still elevated. She says she has not received a morning blood pressure meds. Review of Systems Constitutional: Reports weakness Cardiovascular: Reports no additional cardiovascular complaints Respiratory: Reports no additional respiratory complaints Gastrointestinal: Reports no additional gastrointestinal complaints Musculoskeletal: Reports no additional musculoskeletal complaints Reports weakness Endocrine: Reports no additional endocrine complaints Physical Exam Vital Signs: Last Vital Signs Temp 98.4 F 11/02/22 07:30 Pulse 60 11/02/22 07:30 Resp 18 11/02/22 07:30 BP 183/92 H 11/02/22 07:30 Pulse Ox 96 11/02/22 07:30 O2 Del Method 11/02/22 07:30 O2 Flow Rate 3 11/02/22 07:30 BMI result Body Mass Index 21.7 Const General: cooperative, comfortable, no acute distress, alert, awake and tired appearing Nutritional Appearance: underweight Orientation/consciousness: patient oriented x3 Neck Neck: Yes trachea midline, Yes supple and Yes no JVD Resp Effort & Inspection: normal respiratory effort Auscultation: diminished lung sounds Cardio Jugular venous distension: no JVD Palpation: normal PMI Rate: regular rate Rhythm: regular rhythm Heart sounds: S1 normal heart sound present, S2 normal heart sound present, no click, no gallops and Murmur heart sound present systolic mid Skin General skin exam: no rashes or lesions noted and ecchymosis Neuro General: patient oriented x3 and no focal motor deficits Extrem General: Yes no clubbing, cyanosis or edema Objective Labs and Meds 11/01/22 05:56 11/01/22 05:56 Lab results: Laboratory Results - last 24 hr 11/01/22 09:50 Hep Bs Antigen Negative Hep Bs Antibody REACTIVE Hep B Core Total Ab Nonreactive Progress Note: A&P Assessment and plan (1) CHF exacerbation: Status: Acute Assessment and Plan: Patient admitted with CHF exacerbation secondary to uncontrolled blood pressure as well as in adequate fluid removal with dialysis. Continue maintain dry weight at dialysis. Better control blood pressure is necessary. She is on multiple medication at this point in time. Will obtain renal duplex to rule out for renal artery stenosis. Also suggest ischemic workup as an outpatient. Aortic stenosis not significant enough to currently be responsible for heart failure syndrome. She does have very advanced diastolic dysfunction which makes at high risk for recurrent hospitalization. Continue treat anemia. Maintain hematocrit over 30. I would discontinue her aspirin therapy given her recurrent anemia because she requires Eliquis for her oral anticoagulation to reduce bleeding risk and risk for recurrent significant anemia that might cause cardiac decompensation. (2) CAD (coronary artery disease): Status: Acute Assessment and Plan: CAD status post coronary artery bypass grafting. Currently stable with no sym ptoms angina. However with heart failure syndrome will pursue ischemic workup as an outpatient with vasodilating myocardial perfusion imaging. Patient wants to switch her care locally, will set up for Hol[facility] Mibi as outpatient. (3) Hypertensive emergency: Status: Acute Assessment and Plan: Hypertensive urgency on admission. Continue maximize hydralazine to 50 mg b.i.d.. Currently on lisinopril as well as amlodipine and carvedilol. Continue to maximize medication. Rule out renal artery stenosis. (4) PAF (paroxysmal atrial fibrillation): Status: Acute Assessment and Plan: Paroxysmal atrial fibrillation without any recurrence. Continue rhythm control approach currently on full oral anticoagulation, renally adjusted dose. Continue the same. No need for additional aspirin therapy as she has significant comorbidities and has anemia that potentially can decompensated air. (5) Aortic stenosis: Status: Acute Assessment and Plan: Aortic stenosis moderate. No interventions required at this point time. Will follow-up clinically hand with outpatient echocardiograms. Will follow up in the clinic in 2 weeks time, sooner p.r.n.. Thank you for allowing me to partake in her care Time Spent With Patient Time: Total time managing care of this patient today ____ minutes. Progress Note: Quality Stroke Does the patient have a stroke diagnosis?: No Procedures Date of Service Date of Service: 11/02/22
[2022-11-02] MEDS: 0.9 % Sodium Chloride Flush 3 ML SYRINGE IVFLUSH ×3 (10:07→21:03)
[2022-11-02] MEDS: Furosemide 40 MG TABLET 80 MG PO (10:07)
[2022-11-02] MEDS: calcitrioL 0.25 MCG CAPSULE 0.5 MCG PO (10:07)
--- NOTE | 2022-11-02 10:18 | MHC.CM.PN ---
Per ROUNDS discussion Patient is not yet medically cleared for dc and will need a PT eval to assist with disposition. CM will follow.
--- NOTE | 2022-11-02 10:31 | P.PNNP_ITS ---
Subjective Subjective Date of Service: 11/02/22 Principal diagnosis: Hypertensive urgency and congestive heart failure. Interval history: Had HD yesterday Feels much better Leg edema has improved Breathing is better Physical Exam Vital Signs: Vital Signs: Last Vital Signs Temp 98.4 F 11/02/22 07:30 Pulse 60 11/02/22 07:30 Resp 18 11/02/22 07:30 BP 183/92 H 11/02/22 07:30 Pulse Ox 96 11/02/22 07:30 O2 Del Method 11/02/22 07:30 O2 Flow Rate 3 11/02/22 07:30 BMI result Body Mass Index 21.7 Const: General: No confusion Orientation/consciousness: No confusion Neck: Neck: Yes supple Resp: Effort & Inspection: no cough Auscultation: crackles Cardio: Palpation: no palpable S3 and no palpable S4 GI: Inspection: Yes Abdominal wall edema Auscultation: normal bowel sounds Neuro: General: No confusion Extrem: General: Yes edema Objective Data Labs 11/01/22 05:56 11/01/22 05:56 Labs: Laboratory Results - last 24 hr 11/01/22 09:50 Hep Bs Antigen Negative Hep Bs Antibody REACTIVE Hep B Core Total Ab Nonreactive Procedures Date of Service Date of Service: 11/02/22 Assessment & Plan Assessment and plan (1) End stage chronic kidney disease: Status: Acute (2) CHF exacerbation: Status: Acute (3) Hypertensive emergency: Status: Acute Plan ESRD with fluid over load Accelerated HTN Mild Anemia due to CKD Mild hyperkalemia Plan HD on TTS Will optimize HCT with Epogen low salt diet Low K diet Since she is non oliguric, we could use oral diretics as well, especially on non dialysis days - Lasix 80 mg UF again today and remove fluids reassess BP after fludi removal Can increase Hydralazine to TID if needed Out pt dialysis at [facility] as per patients request Time Spent With Patient Time: Total time managing care of this patient today ____ minutes. Progress Note: Quality Stroke Does the patient have a stroke diagnosis?: No
[2022-11-02] MEDS: Morphine Sulfate 2 MG/ML CARTRIDGE IVPUSH ×2 (13:38→21:08)
--- NOTE | 2022-11-02 14:02 | HO.PM.IMPN ---
Subjective Subjective Date of Service: 11/02/22 Interval History: Seen and evaluated this morning Still has elevated BP fluid overloaded no other overnight events Review of Systems Review of Systems: Yes all other systems are reviewed and are negative Physical Exam Vital Signs: Vital Signs: Last Vital Signs Temp 98.4 F 11/02/22 07:30 Pulse 60 11/02/22 07:30 Resp 18 11/02/22 07:30 BP 183/92 H 11/02/22 07:30 Pulse Ox 96 11/02/22 07:30 O2 Del Method 11/02/22 07:30 O2 Flow Rate 3 11/02/22 07:30 BMI result Body Mass Index 21.7 Const: Other: Constitutional : Awake, interactive, not in distress Neck : Normal inspection, Supple Cardiovascular : RRR, no JVP, trace bilateral lower extremity edema Respiratory : good bilateral air entry, basal bilateral crackles, wheezes or rhonchi Gastrointestinal: soft, lax, Normal bowel sounds, Non tender Skin : Warm, Dry Neurological : Alert & oriented x3, No focal deficit Objective Data Active Medications Acetaminophen (Acetaminophen 325 Mg Tablet) 650 mg PO Q6H PRN PRN Reason: Pain, Mild (Pain Scale 1-3) Last Admin: 11/01/22 11:52 Dose: 650 mg Documented By: PATY Amlodipine Besylate (Amlodipine Besylate 10 Mg Tablet) 10 mg PO DAILY [facility]; Protocol Last Admin: 11/02/22 09:56 Dose: 10 mg Documented By: ANDREWS Apixaban (Apixaban 2.5 Mg Tablet) 2.5 mg PO BID [facility] Last Admin: 11/02/22 09:55 Dose: 2.5 mg Documented By: ANDREWS Aspirin (Aspirin Enteric Coated 81 Mg Tablet.) 81 mg PO DAILY [facility] Last Admin: 11/02/22 09:55 Dose: 81 mg Documented By: ANDREWS Calcitriol (Calcitriol 0.25 Mcg Capsule) 0.5 mcg PO MoWeFr [facility] Last Admin: 11/02/22 10:07 Dose: 0.5 mcg Documented By: ANDREWS Carvedilol (Carvedilol 12.5 Mg Tablet) 25 mg PO BID [facility]; Protocol Last Admin: 11/02/22 09:56 Dose: 25 mg Documented By: ANDREWS Clonidine (Clonidine 0.2 Mg Patch.Tdwk) 0.2 mg TRANSDERMA Mo [facility]; Protocol Last Admin: 10/31/22 06:13 Dose: 0.2 mg Documented By: AILYN Docusate Sodium (Docusate Sodium 100 Mg Capsule) 100 mg PO DAILY PRN PRN Reason: Constipation Fluoxetine HCl (Fluoxetine Hcl 20 Mg Capsule) 20 mg PO DAILY [facility] Last Admin: 11/02/22 09:55 Dose: 20 mg Documented By: ANDREWS Furosemide (Furosemide 40 Mg Tablet) 80 mg PO MOWEFR [facility]; Protocol Last Admin: 11/02/22 10:07 Dose: 80 mg Documented By: ANDREWS Hydralazine HCl (Hydralazine Hcl 50 Mg Tablet) 50 mg PO BID [facility]; Protocol Lisinopril (Lisinopril 20 Mg Tablet) 20 mg PO BID [facility]; Protocol Last Admin: 11/02/22 09:55 Dose: 20 mg Documented By: ANDREWS Morphine Sulfate (Morphine Sulfate 2 Mg/Ml Cartridge) 2 mg IVPUSH Q4H PRN; Protocol PRN Reason: Pain, Moderate (Pain Scale 4-6 Last Admin: 11/02/22 13:38 Dose: 2 mg Documented By: ANDREWS Nitroglycerin (Nitroglycerin 0.4 Mg Patch.Td24) 0.4 mg TRANSDERMA DAILY [facility]; Protocol Last Admin: 11/02/22 09:54 Dose: 0.4 mg Documented By: ANDREWS Ondansetron HCl (Ondansetron Hcl 4 Mg/2 Ml Vial) 4 mg IVPUSH Q8H PRN PRN Reason: Nausea and Vomiting Last Admin: 10/31/22 21:01 Dose: 4 mg Documented By: LAYLA Sevelamer Carbonate (Sevelamer Carbonate Tablet 800 Mg Tablet) 1,600 mg PO BID [facility] Last Admin: 11/02/22 09:56 Dose: 1,600 mg Documented By: ANDREWS Sodium Chloride (0.9 % Sodium Chloride Flush 3 Ml Syringe) 3 ml IVFLUSH QSHIFT [facility] Last Admin: 11/02/22 10:07 Dose: 3 ml Documented By: ANDREWS Trazodone HCl (Trazodone Hcl 100 Mg Tablet) 100 mg PO BEDTIME [facility] Last Admin: 11/01/22 19:53 Dose: 100 mg Documented By: LAYLA Labs 11/01/22 05:56 11/01/22 05:56 Labs: Laboratory Results - last 24 hr 10/30/22 11/01/22 14:15 09:50 D-Dimer High Sensitivty Cancelled Hep Bs Antigen Negative Hep Bs Antibody REACTIVE Hep B Core Total Ab Nonreactive Assessment and Plan (1) Hypertensive emergency: Status: Acute (2) CHF exacerbation: Status: Acute (3) End stage chronic kidney disease: Status: Acute Plan 72F PMH ESRD on dialysis, paroxysmal AFib, HTN, chronic chf with recovered EF and diastolic dysfunction, CAD s/p CABG (2020), mood disorder, presented to the hospital with complaints of shortness of breath as well as edema found to be severely hypertensive dyspnea due to acute on chronic CHF with recovered EF and hypetensive emergency in patient with ESRD continue amlodipine, nitro TD, coreg, clonidine, lisinopril, coreg Increase Hydralazine to 50 bid DC lasix drip, change to PO Lasix will need HD again today per nephro eval (has pemacath AVF not functioning) paroxysmal afib coreg, eliquis CAD s/p CABG eliquis, coreg mood disorder prozac DVT prophylaxis:? Eliquis reason for continued hospitalization:sob, elevated bp, need for HD. Time Spent With Patient Time: Total time managing care of this patient today ____ minutes. Quality Stroke Does the patient have a stroke diagnosis?: No VTE Prior VTE?: No VTE Risk Level:: Medical - moderate - high VTE Device Contraindication: Treatment Not Indicated VTE Drug Contraindication: N/A - Med Ordered
[2022-11-02 14:50] VITALS: BP 121/55; PULSE 65; RESP 17; TEMP 37.1; O2SAT 95
[2022-11-02 18:43] VITALS: BP 144/70; PULSE 67; RESP 17; TEMP 37.2; O2SAT 95
[2022-11-02] MEDS: hydrALAZINE HCl 50 MG TABLET PO (21:02)
[2022-11-02] MEDS: traZODone HCL 100 MG TABLET PO (21:02)
[2022-11-02 23:36] VITALS: BP 150/68; PULSE 67; RESP 18; TEMP 36.8; O2SAT 97
[2022-11-03] VITALS (13 sets, daily range): BP systolic 121–165; BP diastolic 58–86; PULSE 58–80; RESP 14–20; TEMP 36.2–37.5; O2SAT 94–99; BMI 20.5
[2022-11-03 07:59] LABS: Anion Gap 14 (12-20); Blood Urea Nitrogen 42 mg/dL (9-16); Calcium 8.5 mg/dL (8.4-10.2); Carbon Dioxide 23 mmol/L (22-29); Chloride 100 mmol/L (96-108); Creatinine Clr Calc Pharmacy 9.4; Estimated Glomerular Filt Rate 10; Glucose Random 83 mg/dL (60-115); Potassium 6.1 mmol/L (3.3-5.1); Sodium 131 mmol/L (135-145)
[2022-11-03] MEDS: hydrALAZINE HCl 50 MG TABLET PO ×2 (09:03→21:34)
[2022-11-03] MEDS: lisinopriL 20 MG TABLET PO ×2 (09:03→21:34)
[2022-11-03] MEDS: FLUoxetine HCl 20 MG CAPSULE PO (09:03)
[2022-11-03] MEDS: amLODIPine Besylate 10 MG TABLET PO (09:03)
[2022-11-03] MEDS: Aspirin Enteric Coated 81 MG TABLET.DR PO (09:04)
[2022-11-03] MEDS: Sevelamer Carbonate Tablet 800 MG TABLET 1600 MG PO ×2 (09:04→21:34)
[2022-11-03] MEDS: carvediloL 12.5 MG TABLET 25 MG PO ×2 (09:04→21:34)
[2022-11-03] MEDS: Apixaban 2.5 MG TABLET PO ×2 (09:04→21:34)
[2022-11-03] MEDS: Nitroglycerin 0.4 MG PATCH.TD24 TRANSDERMA (09:05)
[2022-11-03] MEDS: 0.9 % Sodium Chloride Flush 3 ML SYRINGE IVFLUSH (09:06)
[2022-11-03] MEDS: Morphine Sulfate 2 MG/ML CARTRIDGE IVPUSH ×2 (09:06→21:39)
--- NOTE | 2022-11-03 12:14 | PM.DS ---
DS: Providers Provider Date of Service: 11/04/22 Date of admission: 10/31/22 03:48 Primary care physician: Ayah Villalta MD Consults: 10/31/22 03:47 Consult to Cardiology Routine Consulting Provider: [facility] Cardiovascular Services Reason for consultation: chf 10/31/22 06:33 Consult to Nephrology Routine Consulting Provider: [facility] Reason for consultation: ESRD Has provider been notified: No DS: Diagnosis Discharge Diagnosis (1) Hypertensive emergency: Status: Acute (2) CHF exacerbation: Status: Acute (3) End stage chronic kidney disease: Status: Acute (4) Hyperkalemia: Status: Acute DS: Summary Hospital Course Hospital Course: Admission note HPI ?72-year-old female with past medical history of paroxysmal AFib, CHF,? ESRD on dialysis, CAD with history of NSTEMI presents to the hospital with complaints of diffuse swelling of her legs and arms.? Patient currently is sleepy, wakes up opens her eyes and falls back asleep.? Unable to get much history from her.? History is obtained from? EMR and ED provider.? It appears the patient has been having swelling in her arms since the placement of her fistula 4 months ago.? She reported increasing shortness of breath and anxiety, has been having difficulty taking deep breaths.? She denied fever, chills, nausea vomiting, diarrhea constipation, melena hematochezia, headache or vision changes to the ED provider.?it appears that patient did complete her dialysis on Monday ?on initial arrival to the ED patient found to have BP of 200/98, patient was given 1 dose of 10 mg IV hydralazine, 12.5 of p.o. carvedilol, 0.2 of p.o. clonidine, and was placed on nitro drip temporarily for BP control.? Patient does not appear to have any hypoxia.? Labs are significant for WBC count of 7.0, hemoglobin of 9.4, pH of 7.46, potassium 5.5, creatinine of 3.53 which is higher than February of 2.90, BNP of 4158, troponin of? 31.4, ?has CT is negative for any? acute intracranial pathology.?chest x-ray shows pulmonary vascular congestion Hospital course The patient was admitted for dyspnea due to acute on chronic CHF with recovered EF and hypetensive emergency in patient with ESRD with hyperkalemia. Had 4 sessions of dialysis during the hospital stay with removal of extra fluids. Lasix was added in the days off dialysis. Nephro followed the patient and recommended increasing Coreg to 25 bid, Start Hydralazine 50 TID and Nitroglycerin patch daily with good response as BP went to better control as she able to ambulate on RA with no reported dyspnea. seen by PT\RT. Start Lasix on non-dialysis days Increase Carvedilol to 25 mg twice daily Start Hydralazine 50 mg two times a day Nitroglycerin patch daily Monitor BP readings at home for 1 week and report readings to PCP To follow up with cardiology office in 2 weeks Time Spent with Patient Time attestation: Total time managing care of this patient today ____ minutes. Discharge coordination time: Greater than 30 minutes Quality: Safe Use of Opioids Does Pt have an Active Cancer Diagnosis on the Problem List?: No Quality: Stroke Does the patient have a stroke diagnosis?: No Physical Exam Vital Signs: Vital Signs: Last Vital Signs Temp 97.1 F 11/03/22 11:59 Pulse 58 11/03/22 11:59 Resp 18 11/03/22 11:59 BP 121/58 L 11/03/22 11:59 Pulse Ox 96 11/03/22 11:59 O2 Del Method Room Air 11/03/22 11:59 O2 Flow Rate 3 11/03/22 07:21 BMI result Body Mass Index 20.5 Const: Other: Constitutional : Awake, interactive, not in distress Neck : Normal inspection, Supple Cardiovascular : RRR, no JVP, trace bilateral lower extremity edema Respiratory : good bilateral air entry, no crackles, wheezes or rhonchi Gastrointestinal: soft, lax, Normal bowel sounds, Non tender Skin : Warm, Dry Neurological : Alert & oriented x3, No focal deficit DS: Data Data Completed and Pending Completed studies during hospitalization [Text1]: Procedures Performance of Urinary Filtration, Intermittent, Less than 6 Hours Per Day (12/13/20) Transfusion of Nonautologous Red Blood Cells into Peripheral Vein, Percutaneous Approach (12/13/20) Labs on day of discharge: Laboratory Results - last 24 hr 10/30/22 11/03/22 14:15 05:38 D-Dimer High Sensitivty Cancelled Sodium 131 L Potassium 6.1 H* Chloride 100 Carbon Dioxide 23 Anion Gap 14 BUN 42 H Creatinine 4.45 H* Estim Creat Clear Calc 9.4 Estimated GFR 10 Random Glucose 83 Calcium 8.5 Imaging Chest x-ray: Radiologist's impression: ITS Impressions Chest X-Ray 10/30/22 14:10 IMPRESSION: Mild congestion with possible very small left pleural effusion and superjacent atelectasis. Chest X-Ray 10/30/22 17:43 IMPRESSION: Persistent pulmonary vascular congestion. No significant change since prior chest x-ray today. Head CT 10/31/22 01:13 IMPRESSION: No acute intracranial pathology. Discharge Plan Discharge Anticipated Discharge Date/Time: 11/03/22 12:05 Patient Disposition: Home Health Service Discharge Diagnosis: Hypertensive emergency Fluid overload Referrals: dai [Other] - 1 Week Ayah Villalta MD [Primary Care Provider] - 1 Week Discharge Medications: New furosemide 40 mg Tablet 80 mg PO MOWEFR Qty: 30 0RF Protocol: Hold for SBP< HOLD for SBP < : 90 nitroglycerin 0.4 mg/hr Patch 24 Hour 0.4 mg transdermal DAILY Qty: 30 0RF Protocol: Hold for SBP< HOLD for SBP < : 90 hydralazine 50 mg Tablet 50 mg PO BID Qty: 60 0RF Protocol: Hold for SBP< HOLD for SBP < : 90 Continued aspirin 81 mg Tablet,Delayed Release (Dr/Ec) 81 mg PO DAILY Qty: 3 0RF clonidine 0.2 mg/24 hr patch weekly 1 patch topical QWEEK Rx Instructions: QTH lisinopril 20 mg tablet 1 tab PO BID acetaminophen 500 mg Tablet 500 mg PO Q6H PRN (Reason: Pain) trazodone 100 mg tablet 1 tab PO BEDTIME fluoxetine 20 mg capsule 1 cap PO DAILY Eliquis 2.5 mg tablet 1 tab PO BID sevelamer HCl [Renagel] 800 mg tablet 1,600 mg PO BID calcitriol 0.5 mcg capsule 0.5 mcg PO 3XW Rx Instructions: given during dialysis amlodipine 10 mg tablet 10 mg PO DAILY Changed carvedilol 12.5 mg tablet 25 mg PO BID Qty: 120 0RF Discharge Orders: Discharge Order (Routine); Ordered 11/04/22 Ordered By: Baltazar Guzman Diet: Low salt diet Activity on Discharge: As tolerated Stand Alone Forms: Patient Portal Discharge page Care Plan Goals: Read below Health Concerns: Read below Plan of Treatment: Read below Assessment: You were admitted to the hospital for evaluation of significantly elevated blood pressure readings and difficulty breathing. found to be in fluid overload requiring 4 sessions of dialysis and addition of BP medication to control you pressure. Increase Carvedilol to 25 mg twice daily Start Hydralazine 50 mg two times a day Nitroglycerin patch daily Monitor BP readings at home for 1 week and report readings to PCP Discharge Date/Time: 11/04/22 14:53
--- NOTE | 2022-11-03 13:46 | W.PM.DNNEP ---
Subjective Subjective Principal diagnosis: Hypertensive urgency and congestive heart failure. This patient was seen during dialysis. Interval history: Seen and evaluated this morning Still has elevated BP fluid overloaded no other overnight events Physical Exam Vital Signs: Vital Signs: Last Vital Signs Temp 97.1 F 11/03/22 11:59 Pulse 58 11/03/22 11:59 Resp 18 11/03/22 11:59 BP 121/58 L 11/03/22 11:59 Pulse Ox 96 11/03/22 11:59 O2 Del Method Room Air 11/03/22 11:59 O2 Flow Rate 3 11/03/22 07:21 BMI result Body Mass Index 20.5 Const: General: No confusion Orientation/consciousness: No confusion Neck: Neck: Yes supple Resp: Effort & Inspection: no cough Auscultation: crackles Cardio: Palpation: no palpable S3 and no palpable S4 GI: Inspection: Yes Abdominal wall edema Auscultation: normal bowel sounds Neuro: General: No confusion Extrem: General: Yes edema Assessment & Plan Assessment and plan (1) End stage chronic kidney disease: Status: Acute (2) CHF exacerbation: Status: Acute (3) Hypertensive emergency: Status: Acute Plan ESRD with fluid over load Accelerated HTN Mild Anemia due to CKD Mild hyperkalemia Plan HD on TTS Will optimize HCT with Epogen low salt diet Low K diet Since she is non oliguric, we could use oral diretics as well, especially on non dialysis days - Lasix 80 mg UF again tomorrow (11/04) and remove fluids reassess BP after fluid removal Can increase Hydralazine to TID if needed Out pt dialysis at [facility] as per patients request- Scheduled for Monday11/07/22 Time Spent With Patient Time: Total time managing care of this patient today ____ minutes. Procedures Date of Service Date of Service: 11/03/22
--- NOTE | 2022-11-03 13:52 | P.CDIM_ITS ---
PROVIDER RESPONSE TEXT: To clarify, the appropriate diagnosis supported by the clinical indicators: Hyperkalemia QUERY TEXT: PHYSICIAN'S DOCUMENTATION REQUEST Date of Query: 11/03/2022 08:37 AM EDT Patient Name: Maryam Ramos Admit Date: 10/31/2022 Dear Baltazar Guzman, A review of the medical record indicates additional documentation may be needed. Please review below and update the documentation accordingly. Is there a diagnosis that correlates with the findings below: Clinical Indicators: Labs: Potassium: 10/30 - 5.5 10/31 - 5.3 11/01 - 6.0 Based on the above, could you clarify the appropriate diagnosis, if significant, that supports the ab ove abnormalities and additional evaluation, monitoring, and/or treatment rendered: Hyperkalemia Other (Please specify) Other (explain) Clinically unable to determine (explain) Thank you, Laxmi Oliveros MS, RN, CCRN Use of terms such as suspected, likely, concern for, or probable (associated with a specific diagnosi s that is being evaluated, monitored, or treated as if it exists) are acceptable and can be coded in the inpatient se tting, when documented at the time of discharge. Please use your independent medical judgment in providing your response. THIS QUERY IS PART OF THE PERMANENT MEDICAL RECORD
--- NOTE | 2022-11-03 13:52 | P.CDIM_ITS ---
PROVIDER RESPONSE TEXT: To clarify, the appropriate diagnosis supported by the clinical indicators: Other: Fluid overload, CHF exacerbation QUERY TEXT: PHYSICIAN'S DOCUMENTATION REQUEST Date of Query: 11/03/2022 08:34 AM EDT Patient Name: Maryam Ramos Admit Date: 10/31/2022 Dear Baltazar Guzman, A review of the medical record indicates additional documentation may be needed. Please review below and update the documentation accordingly. Is there a diagnosis that correlates with the findings below: Clinical Indicators: Per provider progress note on 11/02: dyspnea due to acute on chronic CHF with recovered EF and hypetensive emergency in patient with ESRD continue amlodipine, nitro TD, coreg, clonidine, lisinopril, coreg Vitals & labs: -Patient with tachypnea (RR reaching 31) -Patient with decreased O2 sats -Patient with increased O2 requirements via [place] -BNP on 10/30: 4158 Other indicators/risk factors: -Patient receiving Lasix PO and GTT -Patient being treated for acute on chronic CHF exacerbation -Patient dialysis dependent due to ESRD Please clarify which of the following accurately represents the patient's respiratory status: Acute respiratory failure Please specify if Hypoxic, Hypercapnic, or Hypoxic and hypercapnic Other (Please specify) Other (explain) Clinically unable to determine (explain) Thank you, Laxmi Oliveros, MS, RN, CCRN Use of terms such as suspected, likely, concern for, or probable (associated with a specific diagnosi s that is being evaluated, monitored, or treated as if it exists) are acceptable and can be coded in the inpatient se tting, when documented at the time of discharge. Please use your independent medical judgment in providing your response. THIS QUERY IS PART OF THE PERMANENT MEDICAL RECORD
--- NOTE | 2022-11-03 13:56 | P.PNIM_ITS ---
Subjective Subjective Date of Service: 11/03/22 Interval History: Seen and evaluated this morning BP improved Patient was planned to go home after dialysis but she feels too weak and could not stand to participate with PT no other overnight events Review of Systems Review of Systems: Yes all other systems are reviewed and are negative Physical Exam Vital Signs: Vital Signs: Last Vital Signs Temp 97.1 F 11/03/22 11:59 Pulse 58 11/03/22 11:59 Resp 18 11/03/22 11:59 BP 121/58 L 11/03/22 11:59 Pulse Ox 96 11/03/22 11:59 O2 Del Method Room Air 11/03/22 11:59 O2 Flow Rate 3 11/03/22 07:21 BMI result Body Mass Index 20.5 Const: Other: Constitutional : Awake, interactive, not in distress Neck : Normal inspection, Supple Cardiovascular : RRR, no JVP, trace bilateral lower extremity edema Respiratory : good bilateral air entry, no crackles, wheezes or rhonchi Gastrointestinal: soft, lax, Normal bowel sounds, Non tender Skin : Warm, Dry, permacath in place with no surrounding edema Neurological : Alert & oriented x3, No focal deficit Objective Data Active Medications Acetaminophen (Acetaminophen 325 Mg Tablet) 650 mg PO Q6H PRN PRN Reason: Pain, Mild (Pain Scale 1-3) Last Admin: 11/01/22 11:52 Dose: 650 mg Documented By: PATY Amlodipine Besylate (Amlodipine Besylate 10 Mg Tablet) 10 mg PO DAILY [facility]; Protocol Last Admin: 11/03/22 09:03 Dose: 10 mg Documented By: LARA Apixaban (Apixaban 2.5 Mg Tablet) 2.5 mg PO BID [facility] Last Admin: 11/03/22 09:04 Dose: 2.5 mg Documented By: LARA Aspirin (Aspirin Enteric Coated 81 Mg Tablet.) 81 mg PO DAILY [facility] Last Admin: 11/03/22 09:04 Dose: 81 mg Documented By: LARA Calcitriol (Calcitriol 0.25 Mcg Capsule) 0.5 mcg PO MoWeFr [facility] Last Admin: 11/02/22 10:07 Dose: 0.5 mcg Documented By: DOBROB Carvedilol (Carvedilol 12.5 Mg Tablet) 25 mg PO BID [facility]; Protocol Last Admin: 11/03/22 09:04 Dose: 25 mg Documented By: LARA Clonidine (Clonidine 0.2 Mg Patch.Tdwk) 0.2 mg TRANSDERMA Mo [facility]; Protocol Last Admin: 10/31/22 06:13 Dose: 0.2 mg Documented By: AILYN Docusate Sodium (Docusate Sodium 100 Mg Capsule) 100 mg PO DAILY PRN PRN Reason: Constipation Fluoxetine HCl (Fluoxetine Hcl 20 Mg Capsule) 20 mg PO DAILY [facility] Last Admin: 11/03/22 09:03 Dose: 20 mg Documented By: LARA Furosemide (Furosemide 40 Mg Tablet) 80 mg PO MOWEFR [facility]; Protocol Last Admin: 11/02/22 10:07 Dose: 80 mg Documented By: DOBROB Hydralazine HCl (Hydralazine Hcl 50 Mg Tablet) 50 mg PO TID [facility]; Protocol Last Admin: 11/03/22 09:03 Dose: 50 mg Documented By: LARA Lisinopril (Lisinopril 20 Mg Tablet) 20 mg PO BID [facility]; Protocol Last Admin: 11/03/22 09:03 Dose: 20 mg Documented By: LARA Morphine Sulfate (Morphine Sulfate 2 Mg/Ml Cartridge) 2 mg IVPUSH Q4H PRN; Protocol PRN Reason: Pain, Moderate (Pain Scale 4-6 Last Admin: 11/03/22 09:06 Dose: 2 mg Documented By: LARA Nitroglycerin (Nitroglycerin 0.4 Mg Patch.Td24) 0.4 mg TRANSDERMA DAILY [facility]; Protocol Last Admin: 11/03/22 09:05 Dose: 0.4 mg Documented By: LARA Ondansetron HCl (Ondansetron Hcl 4 Mg/2 Ml Vial) 4 mg IVPUSH Q8H PRN PRN Reason: Nausea and Vomiting Last Admin: 10/31/22 21:01 Dose: 4 mg Documented By: LAYLA Sevelamer Carbonate (Sevelamer Carbonate Tablet 800 Mg Tablet) 1,600 mg PO BID [facility] Last Admin: 11/03/22 09:04 Dose: 1,600 mg Documented By: LARA Sodium Chloride (0.9 % Sodium Chloride Flush 3 Ml Syringe) 3 ml IVFLUSH [facility] Last Admin: 11/03/22 09:06 Dose: 3 ml Documented By: LARA Trazodone HCl (Trazodone Hcl 100 Mg Tablet) 100 mg PO BEDTIME DIMITRY Last Admin: 11/02/22 21:02 Dose: 100 mg Documented By: SATURNINO Labs 11/01/22 05:56 11/03/22 05:38 Labs: Laboratory Results - last 24 hr 11/03/22 05:38 Anion Gap 14 Estim Creat Clear Calc 9.4 Estimated GFR 10 Random Glucose 83 Calcium 8.5 Assessment and Plan (1) Hypertensive emergency: Status: Acute (2) CHF exacerbation: Status: Acute (3) End stage chronic kidney disease: Status: Acute Plan 72F PMH ESRD on dialysis, paroxysmal AFib, HTN, chronic chf with recovered EF and diastolic dysfunction, CAD s/p CABG (2020), mood disorder, presented to the hospital with complaints of shortness of breath as well as edema found to be severely hypertensive dyspnea due to acute on chronic CHF with recovered EF and hypetensive emergency in patient with ESRD continue amlodipine, nitro TD, coreg, clonidine, lisinopril, coreg Hydralazine to 50 bid Check orthostatic vitals PO Armand Had 3rd session of HD today Physical deconditioning Feels weak and has no energy after dialysis could not participate in PT check orthostatics, encourage PO intake it would be unsafe to let her go home this weak and without PT eval paroxysmal afib coreg, eliquis CAD s/p CABG eliquis, coreg mood disorder prozac DVT prophylaxis:? Eliquis reason for continued hospitalization: weakness, unsafe discharge Time Spent With Patient Time: Total time managing care of this patient today ____ minutes. Quality Stroke Does the patient have a stroke diagnosis?: No VTE Prior VTE?: No VTE Risk Level:: Medical - moderate - high VTE Device Contraindication: Treatment Not Indicated VTE Drug Contraindication: N/A - Med Ordered
[2022-11-03] MEDS: Acetaminophen 325 MG TABLET 650 MG PO (14:14)
[2022-11-03] MEDS: traMADoL HCL 50 MG TABLET 25 MG PO (15:44)
[2022-11-03] MEDS: traZODone HCL 100 MG TABLET PO (21:34)
[2022-11-04 03:17] VITALS: BP 169/71; PULSE 57; RESP 14; TEMP 37.2; O2SAT 95
[2022-11-04 06:00] VITALS: BMI 19.8
[2022-11-04 07:16] VITALS: BP 142/80; PULSE 65; RESP 16; TEMP 36.8; O2SAT 97
[2022-11-04 07:16] LABS: Anion Gap 16 (12-20); Blood Urea Nitrogen 29 mg/dL (9-16); Calcium 8.6 mg/dL (8.4-10.2); Carbon Dioxide 20 mmol/L (22-29); Chloride 99 mmol/L (96-108); Estimated Glomerular Filt Rate 12; Glucose Random 81 mg/dL (60-115); Potassium 4.7 mmol/L (3.3-5.1); Sodium 130 mmol/L (135-145)
[2022-11-04] MEDS: Sevelamer Carbonate Tablet 800 MG TABLET 1600 MG PO (08:15)
[2022-11-04] MEDS: calcitrioL 0.25 MCG CAPSULE 0.5 MCG PO (08:15)
[2022-11-04] MEDS: 0.9 % Sodium Chloride Flush 3 ML SYRINGE IVFLUSH (08:16)
[2022-11-04] MEDS: FLUoxetine HCl 20 MG CAPSULE PO (08:16)
[2022-11-04] MEDS: Apixaban 2.5 MG TABLET PO (08:16)
[2022-11-04] MEDS: Aspirin Enteric Coated 81 MG TABLET.DR PO (08:16)
[2022-11-04] MEDS: Furosemide 40 MG TABLET 80 MG PO (08:18)
[2022-11-04 09:39] VITALS: BP 142/80; PULSE 65; O2SAT 97
--- NOTE | 2022-11-04 11:06 | MHC.CM.PN ---
pt to be dcd trae lala a resumption of servceis with home pt
--- NOTE | 2022-11-04 11:34 | PM.PNNEP ---
Subjective Subjective Date of Service: 11/04/22 Principal diagnosis: Hypertensive urgency and congestive heart failure. Interval history: seen and examined on dialysis no complaints Physical Exam Vital Signs: Vital Signs: Last Vital Signs Temp 98.2 F 11/04/22 07:16 Pulse 65 11/04/22 09:39 Resp 16 11/04/22 07:16 BP 142/80 H 11/04/22 09:39 Pulse Ox 97 11/04/22 09:39 O2 Del Method Room Air 11/04/22 07:16 O2 Flow Rate 3 11/03/22 07:21 BMI result Body Mass Index 19.8 Const: General: no acute distress HEENT: Head: Yes normocephalic and Yes atraumatic Neck: Neck: Yes supple Resp: Auscultation: diminished lung sounds Cardio: Heart sounds: S1 normal heart sound present and S2 normal heart sound present GI: Palpation (GI): Soft to palpation and nontender Extrem: General: Yes edema Objective Data Labs 11/01/22 05:56 11/04/22 06:12 Labs: Laboratory Results - last 24 hr 11/04/22 06:12 Sodium 130 L Potassium 4.7 D Chloride 99 Carbon Dioxide 20 L Anion Gap 16 BUN 29 H Creatinine 3.71 H Estim Creat Clear Calc 11.0 Estimated GFR 12 Random Glucose 81 Calcium 8.6 Procedures Date of Service Date of Service: 11/04/22 Assessment & Plan Assessment and plan (1) End stage chronic kidney disease: Status: Acute Plan HD today UF as tolerated renal diet CURTIS per protocol phosphate binders outpatient HD arranged at [facility] Time Spent With Patient Time: Total time managing care of this patient today ____ minutes. Progress Note: Quality Stroke Does the patient have a stroke diagnosis?: No
--- NOTE | 2022-11-04 12:02 | PC.NURSE ---
tried returning daughter's call x 2 at [phone] both times got busy tone
[2022-11-04 12:56] VITALS: BP 146/81; PULSE 71; TEMP 37.3
[2022-11-04] MEDS: amLODIPine Besylate 10 MG TABLET PO (12:57)
--- NOTE | 2022-11-04 16:01 | PC.NURSE ---
pt vitals stable, A&O x 4. discharge instructions given to pt, pt verbalizes understanding. hospital staff brought pt down to front entrance to meet daughter. IV out, monitor off.
== END 2022-11-04 14:53 | disposition home health service (06) | DRG 291 ==
LOC: HO.ED 23:41 → HO.EDOVER 10-31 03:55 → HO.IMC 10-31 05:09
PROVIDERS: Internal Medicine; Internal Medicine Hypertension Specialist; Nurse Practitioner Family; Admitting Provider Internal Medicine; Emergency Provider Emergency Medicine Emergency Medical Services; PCP Family Medicine; Visit Provider Student in an Organized Health Care Education/Training Program
DX: I13.2 Hypertensive heart and chronic kidney disease with heart failure and with stage 5 chronic kidney disease, or end stage renal disease (principal); I50.43 Acute on chronic combined systolic (congestive) and diastolic (congestive) heart failure; N18.6 End stage renal disease; I16.1 Hypertensive emergency; F32.A Depression, unspecified; I25.10 Atherosclerotic heart disease of native coronary artery without angina pectoris; I48.0 Paroxysmal atrial fibrillation; I35.0 Nonrheumatic aortic (valve) stenosis; E87.5 Hyperkalemia; D63.1 Anemia in chronic kidney disease; Z20.822 Contact with and (suspected) exposure to COVID-19; I25.2 Old myocardial infarction; Z95.1 Presence of aortocoronary bypass graft; Z99.2 Dependence on renal dialysis; Z88.6 Allergy status to analgesic agent; Z88.8 Allergy status to other drugs, medicaments and biological substances; Z79.01 Long term (current) use of anticoagulants; Z79.82 Long term (current) use of aspirin; Z79.899 Other long term (current) drug therapy
CPT/HCPCS: 36410; 36415; 70450; 71045; 80048; 80053; 82803; 83605; 83880; 84484; 85025; 85027; 85379; 86704; 86706; 86850; 86870; 86880; 86885; 86900; 86901; 86902; 86905; 86920; 86922; 87340; 87635; 90935; 90999; 93005; 93306; 97162; 99285; C1758; J1940; J2060; J2270; J2405; P9016; Q9957

== ENCOUNTER 2022-11-08 15:42 | Emergency (ER) | payer MEDICARE, MEDICAID, SELFPAY ==
--- NOTE | 2022-11-08 | ECG_ITS ---
Test Reason : weakness Blood Pressure : / mmHG Vent. Rate : 072 BPM Atrial Rate : 072 BPM P-R Int : 188 ms QRS Dur : 094 ms QT Int : 428 ms P-R-T Axes : 070 -26 058 degrees QTc Int : 468 ms Normal sinus rhythm Nonspecific T wave abnormality Abnormal ECG When compared with ECG of 30-OCT-2022 13:30, No significant changes seen Referred By: Zoya Roper Electronically Signed By:VERN ENAMORADO
--- NOTE | ~2022-11-08 | CT_ITS ---
EXAMINATION: CT HEAD WITHOUT CONTRAST CLINICAL INFORMATION: Weakness and dizziness. COMPARISON: Head CT dated 10/31/2022. TECHNIQUE: Contiguous axial imaging was performed from the skullbase to vertex without intravenous administration of contrast. This CT examination was performed using dose optimization techniques as appropriate, variously including the following: *Automated exposure control *Adjustment of mA and/or kV according to patient size (this includes techniques or standardized protocols for targeted exams where dose is matched to indication/reason for exam; i.e. extremities or head) *Use of iterative reconstruction technique DLP: 562 mGy-cm. FINDINGS: There is no evidence of acute intracranial hemorrhage or territorial infarction. No abnormal mass effect or midline shift is seen. Young to white matter differentiation is well preserved. No extra-axial fluid collections are identified. Moderate to severe chronic white matter microangiopathic changes noted with generalized parenchymal volume loss and concordant ex vacuo dilatation of the ventricles. The soft tissues are normal. The mastoid air cells and visualized portions of the paranasal sinuses are well aerated. There are moderate to severe degenerative changes in the condylar heads of the temporomandibular joints, right greater than left side. CT/CT head/brain wo IV con IMPRESSION: No acute intracranial hemorrhage or territorial infarction. Moderate to severe chronic white matter microangiopathy and diffuse parenchymal volume loss.
--- NOTE | ~2022-11-08 | XR_ITS ---
EXAMINATION: XR CHEST CLINICAL INFORMATION: Generalized weakness COMPARISON: Chest x-ray 10/30/2022 TECHNIQUE: 2 views of the chest were obtained. FINDINGS: Central port right IJ catheter tip unchanged position in right atrium. No pneumothorax. Status post median sternotomy. Left atrial clip. Heart size is normal. Cardiac mediastinal contours normal. There are vascular calcifications of aorta. No pulmonary vascular congestion. Previously seen poorly vascular congestion on the radiograph of 10/30/2022 has resolved. Lungs are normally aerated. No pleural effusion or pneumothorax. Multiple healed left-sided rib fractures. Status post right shoulder replacement. Chronic appearing bone loss, osteolysis, of the right glenoid Chronic deformity of the left proximal humeral head. Multilevel degenerative spondylosis spine. XR/XR chest 2V IMPRESSION: 1. Central port right IJ catheter tip unchanged position in right atrium. 2. No acute abnormality of chest.
--- NOTE | 2022-11-08 16:08 | ED.DIZZY ---
HPI - Dizziness General Chief Complaint: Weakness <PAIGE Vazquez - Last Filed: 11/08/22 16:16> Stated Complaint: dizziness/nausea <PAIGE Vazquez - Last Filed: 11/08/22 16:16> Time Seen by Provider: 11/08/22 20:39 <PAIGE Vazquez - Last Filed: 11/08/22 16:16> Source: patient <Zoya Roper MD - Last Filed: 11/08/22 22:54> Mode of arrival: ambulatory <Zoya Roper MD - Last Filed: 11/08/22 22:54> History of Present Illness HPI Narrative: 72-year-old female who has known aortic stenosis, CAD, CHF with ESRD on dialysis and states that she was discharged on either Monday/Monday but since that time she has had chills with body aches and feels like she short of breath and states that she was unable to black pickler the diuretic pills that she had been prescribed. She denies any GI or symptoms and denies any chest pain/palpitations. <Zoya Roper MD - Last Filed: 11/08/22 22:54> Related Data Home Medications: Home Medications Medication Instructions Recorded Confirmed amlodipine 10 mg tablet 10 mg PO DAILY 08/10/20 11/09/22 calcitriol 0.5 mcg capsule 0.5 mcg PO 3XW 12/09/20 10/30/22 acetaminophen 500 mg tablet 500 mg PO Q6H PRN Pain 10/30/22 10/30/22 apixaban 2.5 mg tablet (Eliquis) 1 tab PO BID 10/30/22 11/09/22 clonidine 0.2 mg/24 hr weekly 1 patch topical QWEEK 10/30/22 10/30/22 transdermal patch fluoxetine 20 mg capsule 1 cap PO DAILY 10/30/22 10/30/22 lisinopril 20 mg tablet 1 tab PO BID 10/30/22 11/09/22 sevelamer HCl 800 mg tablet 1,600 mg PO BID 10/30/22 10/30/22 (Renagel) trazodone 100 mg tablet 1 tab PO BEDTIME 10/30/22 11/09/22 gabapentin 300 mg capsule 300 mg PO DAILY 11/09/22 11/09/22 oxycodone 5 mg tablet 5 mg PO Q6H PRN severe pain 11/09/22 11/09/22 Previous Rx's Medication Instructions Recorded aspirin 81 mg tablet,delayed 81 mg PO DAILY #3 tabs 12/17/20 release carvedilol 12.5 mg tablet 25 mg PO BID #120 tabs 11/03/22 furosemide 40 mg tablet 80 mg PO MOWEFR #30 tabs 11/03/22 nitroglycerin 0.4 mg/hr 0.4 mg transdermal DAILY #30 ea 11/03/22 transdermal 24 hour patch hydralazine 50 mg tablet 50 mg PO BID #60 tabs 11/04/22 <PAIGE Vazquez - Last Filed: 11/08/22 16:16> Allergies/Adverse Reactions: Allergies Allergy/AdvReac Type Severity Reaction Status Date / Time atenolol [ATENOLOL] Allergy Unknown DIFF Verified 09/26/22 07:24 BREATHING, heart races. amphetamine [Adderall] AdvReac Unknown shortness Verified 09/26/22 07:24 of breath dextroamphetamine [Adderall] AdvReac Unknown shortness Verified 09/26/22 07:24 of breath <PAIGE Vazquez - Last Filed: 11/08/22 16:16> Review of Systems Review of Systems: Pertinent positives and negatives as stated in HPI <Zoya Roper MD - Last Filed: 11/08/22 22:54> PMFSH Past Medical History Source: nursing notes reviewed <Zoya Roper MD - Last Filed: 11/08/22 22:54> Medical History: Medical History Anemia Asthmatic bronchitis CKD (chronic kidney disease), stage IV Depression DVT (deep venous thrombosis) GERD (gastroesophageal reflux disease) History of ectopic Hypertension <PAIGE Vazquez - Last Filed: 11/08/22 16:16> Surgical History: Surgical History H/O colonoscopy History of carpal tunnel release of both wrists History of left knee replacement History of rectal surgery Status post total replacement of right shoulder <PAIGE Vazquez - Last Filed: 11/08/22 16:16> Family History Family History: Family History Father No problems noted. Mother No problems noted. <PAIGE Vazquez - Last Filed: 11/08/22 16:16> Social History Social History: Social History Household Members: Children Housing: House Do you presently have visiting nurse or other home services: Yes Alcohol intake: unknown Patient Tobacco Use Status: Never used Tobacco Cigarettes Per Day: 1 Smoked in Last 30 Days: No Advance Directives: No Advance Directives Information Provided: No Advance Directives Date on File: 10/31/22 service: No Current occupational status: retired Current occupation: young,right handed <PAIGE Vazquez - Last Filed: 11/08/22 16:16> Physical Exam Vital Signs: Vital Signs: Last Vital Signs Temp 98 F 11/09/22 00:18 Pulse 75 11/09/22 00:18 Resp 12 11/09/22 00:18 BP 171/88 H 11/09/22 00:18 Pulse Ox 94 11/09/22 00:18 O2 Del Method Room Air 11/09/22 00:18 O2 Flow Rate 2 11/08/22 22:00 BMI result Body Mass Index 18.5 <PAIGE Vazquez - Last Filed: 11/08/22 16:16> Vital Signs: Last Vital Signs Temp 98 F 11/09/22 00:18 Pulse 75 11/09/22 00:18 Resp 12 11/09/22 00:18 BP 171/88 H 11/09/22 00:18 Pulse Ox 94 11/09/22 00:18 O2 Del Method Room Air 11/09/22 00:18 O2 Flow Rate 2 11/08/22 22:00 BMI result Body Mass Index 18.5 VITAL SIGNS: Reviewed. GENERAL: Well developed, well nourished, in no acute distress. HEAD: Normocephalic/atraumatic EYES: PERRLA, EOMI EARS: Ext canals without abnormality OROPHARYNX: no oral lesions noted, posterior pharynx clear NECK: Supple, no adenopathy LUNGS: Normal breath sounds. No adventitious sounds or accessory muscle use. SpO2<97>; CHEST WALL: There is the triple-lumen dialysis catheter. CARDIOVASCULAR: Regular rate and rhythm without noted murmurs, no JVD or lower extremity edema. ABDOMEN: Soft, non-tender, non-distended with bowel sounds. MUSCULOSKELETAL: No tenderness, deformities, or effusions noted on gross inspection. EXTREMITIES: No cyanosis, clubbing or edema; LEFT UPPER EXTREMITY: Patient has an AV fistula that has a good thrill but apparently is nonfunctional according to patient SKIN: Inspection of the skin reveals no rashes NEUROLOGIC: Alert and oriented x 4. Strength and sensation to light touch were grossly intact x 4. <Zoya Roper MD - Last Filed: 11/08/22 22:54> Vital Signs: Last Vital Signs Temp 98 F 11/09/22 00:18 Pulse 75 11/09/22 00:18 Resp 12 11/09/22 00:18 BP 171/88 H 11/09/22 00:18 Pulse Ox 94 11/09/22 00:18 O2 Del Method Room Air 11/09/22 00:18 O2 Flow Rate 2 11/08/22 22:00 BMI result Body Mass Index 18.5 <PAIGE Ortega - Last Filed: 11/09/22 01:05> Course Course Course Narrative: RME-16:10pm - 72yoF with a PMHx paroxysmal AFib, CHF,? ESRD on dialysis, CAD with history of NSTEMI presenting to the ED with c/o of general weakness, fatigue, headache, dizziness, lightheadedness, vomiting and feeling dehydrated since she was discharge from here on 11/03/2022. Reports her whole body is achy. Reports they are supposed to center medications when she was discharged although they never sent her medications. Her nurse was concerned therefore she sent her here. Denies changes in Vision, CP, cough, leg swelling, calf pain, vomiting, diarrhea, abdominal pain or any other symptoms complaints or concerns at this time. Was seen and admitted on 10/31/2022 and discharged on 11/03/2022 for CHF exacerbation, hypertensive emergency and end-stage CKD. She is noted to have left hand/wrist/arm swelling. Has her fistula in place there is no signs of infection to the suture site of the fistula. Patient has a normal steady gait in triage. No focal deficits noted. Not a tPA candidate as patient has non disabling symptoms an NIH SS score 0. Plan: Labs, orthostatic vitals, CT scan of brain, chest x-ray, EKG COVID/RSV/flu swab ordered at this time. Patient also given 4 mg of Zofran in triage. <PAIGE Vazquez - Last Filed: 11/08/22 16:16> Reevaluation(s) Reevaluation #1: Patient received her 500 cc bolus of fluids. To be discharged home. Advised to black pickler her medications. Educated patient on diagnosis and treatment plan, answered all question, patient verbalizes understanding. At this time patient will be discharged home, advised to return with new or worsening symptoms. Educated on worrisome signs and symptoms and when to return. At this time I feel comfortable discharge home. <PAIGE Ortega - Last Filed: 11/09/22 01:05> Time: 23:41 <PAIGE Ortega - Last Filed: 11/09/22 01:05> Reevaluation #2: Patient's daughter to black pickler in the morning. Medically cleared at this time she should follow up with regular dialysis. <PAIGE Ortega - Last Filed: 11/09/22 01:05> Time: 01:05 <PAIGE Ortega - Last Filed: 11/09/22 01:05> Medications Administered Generic Name Dose Route Start Last Admin Trade Name Freq PRN Reason Stop Dose Admin Apixaban 2.5 mg 11/09/22 00:45 11/09/22 00:55 Apixaban 2.5 Mg Tablet PO 2.5 mg BID DIMITRY Administration Carvedilol 25 mg 11/09/22 00:45 11/09/22 00:55 Carvedilol 12.5 Mg Tablet PO 25 mg BID DIMITRY Administration Protocol Hydralazine HCl 50 mg 11/09/22 00:45 11/09/22 00:55 Hydralazine Hcl 50 Mg Tablet PO 50 mg BID DIMITRY Administration Protocol Lisinopril 20 mg 11/09/22 01:00 11/09/22 00:55 Lisinopril 20 Mg Tablet PO 20 mg BID DIMITRY Administration Protocol Oxycodone HCl 5 mg 11/09/22 00:39 11/09/22 00:55 Oxycodone Hcl Immed Release 5 Mg Tablet PO 5 mg Q6H PRN Administration severe pain Trazodone HCl 100 mg 11/09/22 00:45 11/09/22 00:55 Trazodone Hcl 100 Mg Tablet PO 100 mg BEDTIME DIMITRY Administration Discontinued Medications Generic Name Dose Route Start Last Admin Trade Name Oneil PRN Reason Stop Dose Admin Acetaminophen 975 mg 11/08/22 21:54 11/08/22 21:58 Acetaminophen 325 Mg Tablet PO 11/08/22 21:55 975 mg ONCE ONE Administration Furosemide 20 mg 11/08/22 22:35 11/08/22 22:45 Furosemide 20 Mg/2 Ml Vial IVPUSH 11/08/22 22:36 20 mg ONCE ONE Administration Protocol Furosemide 60 mg 11/09/22 00:28 11/09/22 00:54 Furosemide 100 Mg/10 Ml Vial IVPUSH 11/09/22 00:29 60 mg ONCE ONE Administration Protocol Sodium Chloride 500 mls @ 999 mls/hr 11/08/22 21:45 11/08/22 22:47 Ns IV 11/08/22 22:15 Infused .Q31M DIMITRY Infusion Ondansetron HCl 4 mg 11/08/22 16:13 11/08/22 16:17 Ondansetron Odt 4 Mg Tab.Rapdis TRANSLINGU 11/08/22 16:14 4 mg ONCE ONE Administration <PAIGE Vazquez - Last Filed: 11/08/22 16:16> Medications Administered Generic Name Dose Route Start Last Admin Trade Name Oneil PRN Reason Stop Dose Admin Apixaban 2.5 mg 11/09/22 00:45 11/09/22 00:55 Apixaban 2.5 Mg Tablet PO 2.5 mg BID DIMITRY Administration Carvedilol 25 mg 11/09/22 00:45 11/09/22 00:55 Carvedilol 12.5 Mg Tablet PO 25 mg BID DIMITRY Administration Protocol Hydralazine HCl 50 mg 11/09/22 00:45 11/09/22 00:55 Hydralazine Hcl 50 Mg Tablet PO 50 mg BID DIMITRY Administration Protocol Lisinopril 20 mg 11/09/22 01:00 11/09/22 00:55 Lisinopril 20 Mg Tablet PO 20 mg BID DIMITRY Administration Protocol Oxycodone HCl 5 mg 11/09/22 00:39 11/09/22 00:55 Oxycodone Hcl Immed Release 5 Mg Tablet PO 5 mg Q6H PRN Administration severe pain Trazodone HCl 100 mg 11/09/22 00:45 11/09/22 00:55 Trazodone Hcl 100 Mg Tablet PO 100 mg BEDTIME DIMITRY Administration Discontinued Medications Generic Name Dose Route Start Last Admin Trade Name Jaretq PRN Reason Stop Dose Admin Acetaminophen 975 mg 11/08/22 21:54 11/08/22 21:58 Acetaminophen 325 Mg Tablet PO 11/08/22 21:55 975 mg ONCE ONE Administration Furosemide 20 mg 11/08/22 22:35 11/08/22 22:45 Furosemide 20 Mg/2 Ml Vial IVPUSH 11/08/22 22:36 20 mg ONCE ONE Administration Protocol Furosemide 60 mg 11/09/22 00:28 11/09/22 00:54 Furosemide 100 Mg/10 Ml Vial IVPUSH 11/09/22 00:29 60 mg ONCE ONE Administration Protocol Sodium Chloride 500 mls @ 999 mls/hr 11/08/22 21:45 11/08/22 22:47 Ns IV 11/08/22 22:15 Infused .Q31M DIMITRY Infusion Ondansetron HCl 4 mg 11/08/22 16:13 11/08/22 16:17 Ondansetron Odt 4 Mg Tab.Rapdis TRANSLINGU 11/08/22 16:14 4 mg ONCE ONE Administration <Zoya Roper MD - Last Filed: 11/08/22 22:54> Medications Administered Generic Name Dose Route Start Last Admin Trade Name Jaretq PRN Reason Stop Dose Admin Apixaban 2.5 mg 11/09/22 00:45 11/09/22 00:55 Apixaban 2.5 Mg Tablet PO 2.5 mg BID DIMITRY Administration Carvedilol 25 mg 11/09/22 00:45 11/09/22 00:55 Carvedilol 12.5 Mg Tablet PO 25 mg BID DIMITRY Administration Protocol Hydralazine HCl 50 mg 11/09/22 00:45 11/09/22 00:55 Hydralazine Hcl 50 Mg Tablet PO 50 mg BID DIMITRY Administration Protocol Lisinopril 20 mg 11/09/22 01:00 11/09/22 00:55 Lisinopril 20 Mg Tablet PO 20 mg BID DIMITRY Administration Protocol Oxycodone HCl 5 mg 11/09/22 00:39 11/09/22 00:55 Oxycodone Hcl Immed Release 5 Mg Tablet PO 5 mg Q6H PRN Administration severe pain Trazodone HCl 100 mg 11/09/22 00:45 11/09/22 00:55 Trazodone Hcl 100 Mg Tablet PO 100 mg BEDTIME DIMITRY Administration Discontinued Medications Generic Name Dose Route Start Last Admin Trade Name Freq PRN Reason Stop Dose Admin Acetaminophen 975 mg 11/08/22 21:54 11/08/22 21:58 Acetaminophen 325 Mg Tablet PO 11/08/22 21:55 975 mg ONCE ONE Administration Furosemide 20 mg 11/08/22 22:35 11/08/22 22:45 Furosemide 20 Mg/2 Ml Vial IVPUSH 11/08/22 22:36 20 mg ONCE ONE Administration Protocol Furosemide 60 mg 11/09/22 00:28 11/09/22 00:54 Furosemide 100 Mg/10 Ml Vial IVPUSH 11/09/22 00:29 60 mg ONCE ONE Administration Protocol Sodium Chloride 500 mls @ 999 mls/hr 11/08/22 21:45 11/08/22 22:47 Ns IV 11/08/22 22:15 Infused .Q31M DIMITRY Infusion Ondansetron HCl 4 mg 11/08/22 16:13 11/08/22 16:17 Ondansetron Odt 4 Mg Tab.Rapdis TRANSLINGU 11/08/22 16:14 4 mg ONCE ONE Administration <PAIGE Ortega - Last Filed: 11/09/22 01:05> Medical Decision Making Medical Decision Making MDM Narrative: 72-year-old female with history and clinical presentation of viral syndrome, I reviewed all laboratory investigations and my interpretation is that patient is not febrile, there are no findings on chest x-ray and viral testing is negative with lateral troponins that are likely demonstrative CKD and a BNP that although improved from prior is still elevated. Patient does have an elevated lipase although on clinical exam there is no epigastric pain and she is not demonstrating any nausea or vomiting. Overall, it is my impression that patient is mildly dehydrated and I will give her 500 cc of fluids and then re-evaluate. My impression is that patient will be able to be discharged. There are no acute findings to support acute infection, acute CHF exacerbation, and will strongly encouraged patient to black pickler her medication. <Zoya Roper MD - Last Filed: 11/08/22 22:54> Differential Diagnosis Please see the discussion above <Zoya Roper MD - Last Filed: 11/08/22 22:54> Lab Data Please see the discussion above <Zoya Roper MD - Last Filed: 11/08/22 22:54> Result Diagrams: 11/08/22 16:54 11/08/22 16:54 <PAIGE Vazquez - Last Filed: 11/08/22 16:16> Labs: Lab Results 11/08/22 11/08/22 11/08/22 Range/Units 16:54 16:54 16:54 WBC 6.7 (4.8-10.8) X10*3/uL RBC 3.57 L D (4.20-5.50) X10*6/uL Hgb 11.0 L D (12.0-16.0) g/dl Hct 33.4 L D (37.0-47.0) % MCV 93.6 (80.0-98.0) fL MCH 30.8 (27.0-33.0) pg MCHC 32.9 (31.0-35.0) g/dl RDW 15.8 (11.0-16.0) % Plt Count 189 (160-400) X10*3/uL MPV 9.4 (9.4-12.3) fL Immature Gran % (Auto) 0.3 (0.0-0.4) % Neut % (Auto) 56.7 (45-73) % Lymph % (Auto) 25.5 (20-40) % [place] % (Auto) 15.6 H (2-11) % Eos % (Auto) 1.0 (0-4) % Baso % (Auto) 0.9 (0-2) % Lymph # (Auto) 1.7 (1.2-4.9) X10*3/uL [place] # (Auto) 1.1 (0.1-1.2) X10*3/uL Eos # (Auto) 0.1 (0.0-0.4) X10*3/uL Baso # (Auto) 0.1 (0.0-0.2) X10*3/uL Abs Immat Gran (auto) 0.02 (0.00-0.03) X10*3/uL Absolute Neuts (auto) 3.8 (2.0-8.3) x10*3/uL Absolute Nucleated RBC 0.000 (0.0-0.012) X10*3/uL Nucleated RBC % (auto) 0.0 (0.0-0.2) /100WBC PT 12.3 (10.0-13.1) SEC INR 1.1 (0.9-1.1) Sodium 135 (135-145) mmol/L Potassium 5.0 (3.3-5.1) mmol/L Chloride 102 (96-108) mmol/L Carbon Dioxide 20 L (22-29) mmol/L Anion Gap 18 (12-20) BUN 42 H (9-16) mg/dL Creatinine 4.81 H* (0.5-1.4) mg/dL Estim Creat Clear Calc 7.9 Estimated GFR 9 Random Glucose 90 (60-115) mg/dL Calcium 9.1 (8.4-10.2) mg/dL Magnesium 2.5 (1.6-2.6) mg/dL Total Bilirubin 0.6 (0.0-1.0) mg/dL AST 13 (5-31) U/L ALT 6 (0-31) U/L Alkaline Phosphatase 118 H (39-117) U/L Troponin I High Sens (<3.5-17.0) ng/L B-Natriuretic Peptide (<100) pg/mL Total Protein 7.7 (6.5-8.0) g/dL Albumin 3.8 (3.5-5.0) g/dL Lipase 101 H (8-78) U/L Urine Color Urine Appearance Urine pH (5.0-9.0) Ur Specific [place] (1.005-1.025) Urine Protein (Neg-Trace) mg/dL Urine Glucose (UA) (Negative) mg/dL Urine Ketones (Negative) mg/dL Urine Blood (Negative) Urine Nitrite (Negative) Ur Leukocyte Esterase (Negative) Urine RBC (0-2) /HPF Urine WBC (0-5) /HPF Ur Squamous Epith Cells (0-2) /HPF Urine Bacteria (None Seen) Hyaline Casts (0-2) /LPF Influenza Type A (PCR) (Negative) Influenza Type B (PCR) (Negative) RSV RNA Qual (PCR) (Negative) SARS-CoV-2 RNA (RT-PCR) (Negative) 11/08/22 11/08/22 11/08/22 Range/Units 16:54 16:54 16:54 WBC (4.8-10.8) X10*3/uL RBC (4.20-5.50) X10*6/uL Hgb (12.0-16.0) g/dl Hct (37.0-47.0) % MCV (80.0-98.0) fL MCH (27.0-33.0) pg MCHC (31.0-35.0) g/dl RDW (11.0-16.0) % Plt Count (160-400) X10*3/uL MPV (9.4-12.3) fL Immature Gran % (Auto) (0.0-0.4) % Neut % (Auto) (45-73) % Lymph % (Auto) (20-40) % [place] % (Auto) (2-11) % Eos % (Auto) (0-4) % Baso % (Auto) (0-2) % Lymph # (Auto) (1.2-4.9) X10*3/uL [place] # (Auto) (0.1-1.2) X10*3/uL Eos # (Auto) (0.0-0.4) X10*3/uL Baso # (Auto) (0.0-0.2) X10*3/uL Abs Immat Gran (auto) (0.00-0.03) X10*3/uL Absolute Neuts (auto) (2.0-8.3) x10*3/uL Absolute Nucleated RBC (0.0-0.012) X10*3/uL Nucleated RBC % (auto) (0.0-0.2) /100WBC PT (10.0-13.1) SEC INR (0.9-1.1) Sodium (135-145) mmol/L Potassium (3.3-5.1) mmol/L Chloride (96-108) mmol/L Carbon Dioxide (22-29) mmol/L Anion Gap (12-20) BUN (9-16) mg/dL Creatinine (0.5-1.4) mg/dL Estim Creat Clear Calc Estimated GFR Random Glucose (60-115) mg/dL Calcium (8.4-10.2) mg/dL Magnesium (1.6-2.6) mg/dL Total Bilirubin (0.0-1.0) mg/dL AST (5-31) U/L ALT (0-31) U/L Alkaline Phosphatase (39-117) U/L Troponin I High Sens 26.9 H (<3.5-17.0) ng/L B-Natriuretic Peptide 1460 H (<100) pg/mL Total Protein (6.5-8.0) g/dL Albumin (3.5-5.0) g/dL Lipase (8-78) U/L Urine Color Urine Appearance Urine pH (5.0-9.0) Ur Specific [place] (1.005-1.025) Urine Protein (Neg-Trace) mg/dL Urine Glucose (UA) (Negative) mg/dL Urine Ketones (Negative) mg/dL Urine Blood (Negative) Urine Nitrite (Negative) Ur Leukocyte Esterase (Negative) Urine RBC (0-2) /HPF Urine WBC (0-5) /HPF Ur Squamous Epith Cells (0-2) /HPF Urine Bacteria (None Seen) Hyaline Casts (0-2) /LPF Influenza Type A (PCR) NEGATIVE (Negative) Influenza Type B (PCR) NEGATIVE (Negative) RSV RNA Qual (PCR) NEGATIVE (Negative) SARS-CoV-2 RNA (RT-PCR) NEGATIVE (Negative) 11/08/22 11/09/22 Range/Units 20:49 00:29 WBC (4.8-10.8) X10*3/uL RBC (4.20-5.50) X10*6/uL Hgb (12.0-16.0) g/dl Hct (37.0-47.0) % MCV (80.0-98.0) fL MCH (27.0-33.0) pg MCHC (31.0-35.0) g/dl RDW (11.0-16.0) % Plt Count (160-400) X10*3/uL MPV (9.4-12.3) fL Immature Gran % (Auto) (0.0-0.4) % Neut % (Auto) (45-73) % Lymph % (Auto) (20-40) % [place] % (Auto) (2-11) % Eos % (Auto) (0-4) % Baso % (Auto) (0-2) % Lymph # (Auto) (1.2-4.9) X10*3/uL [place] # (Auto) (0.1-1.2) X10*3/uL Eos # (Auto) (0.0-0.4) X10*3/uL Baso # (Auto) (0.0-0.2) X10*3/uL Abs Immat Gran (auto) (0.00-0.03) X10*3/uL Absolute Neuts (auto) (2.0-8.3) x10*3/uL Absolute Nucleated RBC (0.0-0.012) X10*3/uL Nucleated RBC % (auto) (0.0-0.2) /100WBC PT (10.0-13.1) SEC INR (0.9-1.1) Sodium (135-145) mmol/L Potassium (3.3-5.1) mmol/L Chloride (96-108) mmol/L Carbon Dioxide (22-29) mmol/L Anion Gap (12-20) BUN (9-16) mg/dL Creatinine (0.5-1.4) mg/dL Estim Creat Clear Calc Estimated GFR Random Glucose (60-115) mg/dL Calcium (8.4-10.2) mg/dL Magnesium (1.6-2.6) mg/dL Total Bilirubin (0.0-1.0) mg/dL AST (5-31) U/L ALT (0-31) U/L Alkaline Phosphatase (39-117) U/L Troponin I High Sens 23.9 H (<3.5-17.0) ng/L B-Natriuretic Peptide (<100) pg/mL Total Protein (6.5-8.0) g/dL Albumin (3.5-5.0) g/dL Lipase (8-78) U/L Urine Color Yellow Urine Appearance Clear Urine pH 8.5 (5.0-9.0) Ur Specific [place] 1.015 (1.005-1.025) Urine Protein 300 (3+) H (Neg-Trace) mg/dL Urine Glucose (UA) 100 H (Negative) mg/dL Urine Ketones Negative (Negative) mg/dL Urine Blood Negative (Negative) Urine Nitrite Negative (Negative) Ur Leukocyte Esterase Small (1+) H (Negative) Urine RBC 0-2 (0-2) /HPF Urine WBC 0-5 (0-5) /HPF Ur Squamous Epith Cells >20 (0-2) /HPF Urine Bacteria 2+ (None Seen) Hyaline Casts 0-2 (0-2) /LPF Influenza Type A (PCR) (Negative) Influenza Type B (PCR) (Negative) RSV RNA Qual (PCR) (Negative) SARS-CoV-2 RNA (RT-PCR) (Negative) <PAIGE Vazquez - Last Filed: 11/08/22 16:16> Lab Results 11/08/22 11/08/22 11/08/22 Range/Units 16:54 16:54 16:54 WBC 6.7 (4.8-10.8) X10*3/uL RBC 3.57 L D (4.20-5.50) X10*6/uL Hgb 11.0 L D (12.0-16.0) g/dl Hct 33.4 L D (37.0-47.0) % MCV 93.6 (80.0-98.0) fL MCH 30.8 (27.0-33.0) pg MCHC 32.9 (31.0-35.0) g/dl RDW 15.8 (11.0-16.0) % Plt Count 189 (160-400) X10*3/uL MPV 9.4 (9.4-12.3) fL Immature Gran % (Auto) 0.3 (0.0-0.4) % Neut % (Auto) 56.7 (45-73) % Lymph % (Auto) 25.5 (20-40) % [place] % (Auto) 15.6 H (2-11) % Eos % (Auto) 1.0 (0-4) % Baso % (Auto) 0.9 (0-2) % Lymph # (Auto) 1.7 (1.2-4.9) X10*3/uL [place] # (Auto) 1.1 (0.1-1.2) X10*3/uL Eos # (Auto) 0.1 (0.0-0.4) X10*3/uL Baso # (Auto) 0.1 (0.0-0.2) X10*3/uL Abs Immat Gran (auto) 0.02 (0.00-0.03) X10*3/uL Absolute Neuts (auto) 3.8 (2.0-8.3) x10*3/uL Absolute Nucleated RBC 0.000 (0.0-0.012) X10*3/uL Nucleated RBC % (auto) 0.0 (0.0-0.2) /100WBC PT 12.3 (10.0-13.1) SEC INR 1.1 (0.9-1.1) Sodium 135 (135-145) mmol/L Potassium 5.0 (3.3-5.1) mmol/L Chloride 102 (96-108) mmol/L Carbon Dioxide 20 L (22-29) mmol/L Anion Gap 18 (12-20) BUN 42 H (9-16) mg/dL Creatinine 4.81 H* (0.5-1.4) mg/dL Estim Creat Clear Calc 7.9 Estimated GFR 9 Random Glucose 90 (60-115) mg/dL Calcium 9.1 (8.4-10.2) mg/dL Magnesium 2.5 (1.6-2.6) mg/dL Total Bilirubin 0.6 (0.0-1.0) mg/dL AST 13 (5-31) U/L ALT 6 (0-31) U/L Alkaline Phosphatase 118 H (39-117) U/L Troponin I High Sens (<3.5-17.0) ng/L B-Natriuretic Peptide (<100) pg/mL Total Protein 7.7 (6.5-8.0) g/dL Albumin 3.8 (3.5-5.0) g/dL Lipase 101 H (8-78) U/L Urine Color Urine Appearance Urine pH (5.0-9.0) Ur Specific [place] (1.005-1.025) Urine Protein (Neg-Trace) mg/dL Urine Glucose (UA) (Negative) mg/dL Urine Ketones (Negative) mg/dL Urine Blood (Negative) Urine Nitrite (Negative) Ur Leukocyte Esterase (Negative) Urine RBC (0-2) /HPF Urine WBC (0-5) /HPF Ur Squamous Epith Cells (0-2) /HPF Urine Bacteria (None Seen) Hyaline Casts (0-2) /LPF Influenza Type A (PCR) (Negative) Influenza Type B (PCR) (Negative) RSV RNA Qual (PCR) (Negative) SARS-CoV-2 RNA (RT-PCR) (Negative) 11/08/22 11/08/22 11/08/22 Range/Units 16:54 16:54 16:54 WBC (4.8-10.8) X10*3/uL RBC (4.20-5.50) X10*6/uL Hgb (12.0-16.0) g/dl Hct (37.0-47.0) % MCV (80.0-98.0) fL MCH (27.0-33.0) pg MCHC (31.0-35.0) g/dl RDW (11.0-16.0) % Plt Count (160-400) X10*3/uL MPV (9.4-12.3) fL Immature Gran % (Auto) (0.0-0.4) % Neut % (Auto) (45-73) % Lymph % (Auto) (20-40) % [place] % (Auto) (2-11) % Eos % (Auto) (0-4) % Baso % (Auto) (0-2) % Lymph # (Auto) (1.2-4.9) X10*3/uL [place] # (Auto) (0.1-1.2) X10*3/uL Eos # (Auto) (0.0-0.4) X10*3/uL Baso # (Auto) (0.0-0.2) X10*3/uL Abs Immat Gran (auto) (0.00-0.03) X10*3/uL Absolute Neuts (auto) (2.0-8.3) x10*3/uL Absolute Nucleated RBC (0.0-0.012) X10*3/uL Nucleated RBC % (auto) (0.0-0.2) /100WBC PT (10.0-13.1) SEC INR (0.9-1.1) Sodium (135-145) mmol/L Potassium (3.3-5.1) mmol/L Chloride (96-108) mmol/L Carbon Dioxide (22-29) mmol/L Anion Gap (12-20) BUN (9-16) mg/dL Creatinine (0.5-1.4) mg/dL Estim Creat Clear Calc Estimated GFR Random Glucose (60-115) mg/dL Calcium (8.4-10.2) mg/dL Magnesium (1.6-2.6) mg/dL Total Bilirubin (0.0-1.0) mg/dL AST (5-31) U/L ALT (0-31) U/L Alkaline Phosphatase (39-117) U/L Troponin I High Sens 26.9 H (<3.5-17.0) ng/L B-Natriuretic Peptide 1460 H (<100) pg/mL Total Protein (6.5-8.0) g/dL Albumin (3.5-5.0) g/dL Lipase (8-78) U/L Urine Color Urine Appearance Urine pH (5.0-9.0) Ur Specific [place] (1.005-1.025) Urine Protein (Neg-Trace) mg/dL Urine Glucose (UA) (Negative) mg/dL Urine Ketones (Negative) mg/dL Urine Blood (Negative) Urine Nitrite (Negative) Ur Leukocyte Esterase (Negative) Urine RBC (0-2) /HPF Urine WBC (0-5) /HPF Ur Squamous Epith Cells (0-2) /HPF Urine Bacteria (None Seen) Hyaline Casts (0-2) /LPF Influenza Type A (PCR) NEGATIVE (Negative) Influenza Type B (PCR) NEGATIVE (Negative) RSV RNA Qual (PCR) NEGATIVE (Negative) SARS-CoV-2 RNA (RT-PCR) NEGATIVE (Negative) 11/08/22 11/09/22 Range/Units 20:49 00:29 WBC (4.8-10.8) X10*3/uL RBC (4.20-5.50) X10*6/uL Hgb (12.0-16.0) g/dl Hct (37.0-47.0) % MCV (80.0-98.0) fL MCH (27.0-33.0) pg MCHC (31.0-35.0) g/dl RDW (11.0-16.0) % Plt Count (160-400) X10*3/uL MPV (9.4-12.3) fL Immature Gran % (Auto) (0.0-0.4) % Neut % (Auto) (45-73) % Lymph % (Auto) (20-40) % [place] % (Auto) (2-11) % Eos % (Auto) (0-4) % Baso % (Auto) (0-2) % Lymph # (Auto) (1.2-4.9) X10*3/uL [place] # (Auto) (0.1-1.2) X10*3/uL Eos # (Auto) (0.0-0.4) X10*3/uL Baso # (Auto) (0.0-0.2) X10*3/uL Abs Immat Gran (auto) (0.00-0.03) X10*3/uL Absolute Neuts (auto) (2.0-8.3) x10*3/uL Absolute Nucleated RBC (0.0-0.012) X10*3/uL Nucleated RBC % (auto) (0.0-0.2) /100WBC PT (10.0-13.1) SEC INR (0.9-1.1) Sodium (135-145) mmol/L Potassium (3.3-5.1) mmol/L Chloride (96-108) mmol/L Carbon Dioxide (22-29) mmol/L Anion Gap (12-20) BUN (9-16) mg/dL Creatinine (0.5-1.4) mg/dL Estim Creat Clear Calc Estimated GFR Random Glucose (60-115) mg/dL Calcium (8.4-10.2) mg/dL Magnesium (1.6-2.6) mg/dL Total Bilirubin (0.0-1.0) mg/dL AST (5-31) U/L ALT (0-31) U/L Alkaline Phosphatase (39-117) U/L Troponin I High Sens 23.9 H (<3.5-17.0) ng/L B-Natriuretic Peptide (<100) pg/mL Total Protein (6.5-8.0) g/dL Albumin (3.5-5.0) g/dL Lipase (8-78) U/L Urine Color Yellow Urine Appearance Clear Urine pH 8.5 (5.0-9.0) Ur Specific [place] 1.015 (1.005-1.025) Urine Protein 300 (3+) H (Neg-Trace) mg/dL Urine Glucose (UA) 100 H (Negative) mg/dL Urine Ketones Negative (Negative) mg/dL Urine Blood Negative (Negative) Urine Nitrite Negative (Negative) Ur Leukocyte Esterase Small (1+) H (Negative) Urine RBC 0-2 (0-2) /HPF Urine WBC 0-5 (0-5) /HPF Ur Squamous Epith Cells >20 (0-2) /HPF Urine Bacteria 2+ (None Seen) Hyaline Casts 0-2 (0-2) /LPF Influenza Type A (PCR) (Negative) Influenza Type B (PCR) (Negative) RSV RNA Qual (PCR) (Negative) SARS-CoV-2 RNA (RT-PCR) (Negative) <Zoya Roper MD - Last Filed: 11/08/22 22:54> Lab Results 11/08/22 11/08/22 11/08/22 Range/Units 16:54 16:54 16:54 WBC 6.7 (4.8-10.8) X10*3/uL RBC 3.57 L D (4.20-5.50) X10*6/uL Hgb 11.0 L D (12.0-16.0) g/dl Hct 33.4 L D (37.0-47.0) % MCV 93.6 (80.0-98.0) fL MCH 30.8 (27.0-33.0) pg MCHC 32.9 (31.0-35.0) g/dl RDW 15.8 (11.0-16.0) % Plt Count 189 (160-400) X10*3/uL MPV 9.4 (9.4-12.3) fL Immature Gran % (Auto) 0.3 (0.0-0.4) % Neut % (Auto) 56.7 (45-73) % Lymph % (Auto) 25.5 (20-40) % Spencer % (Auto) 15.6 H (2-11) % Eos % (Auto) 1.0 (0-4) % Baso % (Auto) 0.9 (0-2) % Lymph # (Auto) 1.7 (1.2-4.9) X10*3/uL [place] # (Auto) 1.1 (0.1-1.2) X10*3/uL Eos # (Auto) 0.1 (0.0-0.4) X10*3/uL Baso # (Auto) 0.1 (0.0-0.2) X10*3/uL Abs Immat Gran (auto) 0.02 (0.00-0.03) X10*3/uL Absolute Neuts (auto) 3.8 (2.0-8.3) x10*3/uL Absolute Nucleated RBC 0.000 (0.0-0.012) X10*3/uL Nucleated RBC % (auto) 0.0 (0.0-0.2) /100WBC PT 12.3 (10.0-13.1) SEC INR 1.1 (0.9-1.1) Sodium 135 (135-145) mmol/L Potassium 5.0 (3.3-5.1) mmol/L Chloride 102 (96-108) mmol/L Carbon Dioxide 20 L (22-29) mmol/L Anion Gap 18 (12-20) BUN 42 H (9-16) mg/dL Creatinine 4.81 H* (0.5-1.4) mg/dL Estim Creat Clear Calc 7.9 Estimated GFR 9 Random Glucose 90 (60-115) mg/dL Calcium 9.1 (8.4-10.2) mg/dL Magnesium 2.5 (1.6-2.6) mg/dL Total Bilirubin 0.6 (0.0-1.0) mg/dL AST 13 (5-31) U/L ALT 6 (0-31) U/L Alkaline Phosphatase 118 H (39-117) U/L Troponin I High Sens (<3.5-17.0) ng/L B-Natriuretic Peptide (<100) pg/mL Total Protein 7.7 (6.5-8.0) g/dL Albumin 3.8 (3.5-5.0) g/dL Lipase 101 H (8-78) U/L Urine Color Urine Appearance Urine pH (5.0-9.0) Ur Specific [place] (1.005-1.025) Urine Protein (Neg-Trace) mg/dL Urine Glucose (UA) (Negative) mg/dL Urine Ketones (Negative) mg/dL Urine Blood (Negative) Urine Nitrite (Negative) Ur Leukocyte Esterase (Negative) Urine RBC (0-2) /HPF Urine WBC (0-5) /HPF Ur Squamous Epith Cells (0-2) /HPF Urine Bacteria (None Seen) Hyaline Casts (0-2) /LPF Influenza Type A (PCR) (Negative) Influenza Type B (PCR) (Negative) RSV RNA Qual (PCR) (Negative) SARS-CoV-2 RNA (RT-PCR) (Negative) 11/08/22 11/08/22 11/08/22 Range/Units 16:54 16:54 16:54 WBC (4.8-10.8) X10*3/uL RBC (4.20-5.50) X10*6/uL Hgb (12.0-16.0) g/dl Hct (37.0-47.0) % MCV (80.0-98.0) fL MCH (27.0-33.0) pg MCHC (31.0-35.0) g/dl RDW (11.0-16.0) % Plt Count (160-400) X10*3/uL MPV (9.4-12.3) fL Immature Gran % (Auto) (0.0-0.4) % Neut % (Auto) (45-73) % Lymph % (Auto) (20-40) % [place] % (Auto) (2-11) % Eos % (Auto) (0-4) % Baso % (Auto) (0-2) % Lymph # (Auto) (1.2-4.9) X10*3/uL [place] # (Auto) (0.1-1.2) X10*3/uL Eos # (Auto) (0.0-0.4) X10*3/uL Baso # (Auto) (0.0-0.2) X10*3/uL Abs Immat Gran (auto) (0.00-0.03) X10*3/uL Absolute Neuts (auto) (2.0-8.3) x10*3/uL Absolute Nucleated RBC (0.0-0.012) X10*3/uL Nucleated RBC % (auto) (0.0-0.2) /100WBC PT (10.0-13.1) SEC INR (0.9-1.1) Sodium (135-145) mmol/L Potassium (3.3-5.1) mmol/L Chloride (96-108) mmol/L Carbon Dioxide (22-29) mmol/L Anion Gap (12-20) BUN (9-16) mg/dL Creatinine (0.5-1.4) mg/dL Estim Creat Clear Calc Estimated GFR Random Glucose (60-115) mg/dL Calcium (8.4-10.2) mg/dL Magnesium (1.6-2.6) mg/dL Total Bilirubin (0.0-1.0) mg/dL AST (5-31) U/L ALT (0-31) U/L Alkaline Phosphatase (39-117) U/L Troponin I High Sens 26.9 H (<3.5-17.0) ng/L B-Natriuretic Peptide 1460 H (<100) pg/mL Total Protein (6.5-8.0) g/dL Albumin (3.5-5.0) g/dL Lipase (8-78) U/L Urine Color Urine Appearance Urine pH (5.0-9.0) Ur Specific [place] (1.005-1.025) Urine Protein (Neg-Trace) mg/dL Urine Glucose (UA) (Negative) mg/dL Urine Ketones (Negative) mg/dL Urine Blood (Negative) Urine Nitrite (Negative) Ur Leukocyte Esterase (Negative) Urine RBC (0-2) /HPF Urine WBC (0-5) /HPF Ur Squamous Epith Cells (0-2) /HPF Urine Bacteria (None Seen) Hyaline Casts (0-2) /LPF Influenza Type A (PCR) NEGATIVE (Negative) Influenza Type B (PCR) NEGATIVE (Negative) RSV RNA Qual (PCR) NEGATIVE (Negative) SARS-CoV-2 RNA (RT-PCR) NEGATIVE (Negative) 11/08/22 11/09/22 Range/Units 20:49 00:29 WBC (4.8-10.8) X10*3/uL RBC (4.20-5.50) X10*6/uL Hgb (12.0-16.0) g/dl Hct (37.0-47.0) % MCV (80.0-98.0) fL MCH (27.0-33.0) pg MCHC (31.0-35.0) g/dl RDW (11.0-16.0) % Plt Count (160-400) X10*3/uL MPV (9.4-12.3) fL Immature Gran % (Auto) (0.0-0.4) % Neut % (Auto) (45-73) % Lymph % (Auto) (20-40) % [place] % (Auto) (2-11) % Eos % (Auto) (0-4) % Baso % (Auto) (0-2) % Lymph # (Auto) (1.2-4.9) X10*3/uL [place] # (Auto) (0.1-1.2) X10*3/uL Eos # (Auto) (0.0-0.4) X10*3/uL Baso # (Auto) (0.0-0.2) X10*3/uL Abs Immat Gran (auto) (0.00-0.03) X10*3/uL Absolute Neuts (auto) (2.0-8.3) x10*3/uL Absolute Nucleated RBC (0.0-0.012) X10*3/uL Nucleated RBC % (auto) (0.0-0.2) /100WBC PT (10.0-13.1) SEC INR (0.9-1.1) Sodium (135-145) mmol/L Potassium (3.3-5.1) mmol/L Chloride (96-108) mmol/L Carbon Dioxide (22-29) mmol/L Anion Gap (12-20) BUN (9-16) mg/dL Creatinine (0.5-1.4) mg/dL Estim Creat Clear Calc Estimated GFR Random Glucose (60-115) mg/dL Calcium (8.4-10.2) mg/dL Magnesium (1.6-2.6) mg/dL Total Bilirubin (0.0-1.0) mg/dL AST (5-31) U/L ALT (0-31) U/L Alkaline Phosphatase (39-117) U/L Troponin I High Sens 23.9 H (<3.5-17.0) ng/L B-Natriuretic Peptide (<100) pg/mL Total Protein (6.5-8.0) g/dL Albumin (3.5-5.0) g/dL Lipase (8-78) U/L Urine Color Yellow Urine Appearance Clear Urine pH 8.5 (5.0-9.0) Ur Specific [place] 1.015 (1.005-1.025) Urine Protein 300 (3+) H (Neg-Trace) mg/dL Urine Glucose (UA) 100 H (Negative) mg/dL Urine Ketones Negative (Negative) mg/dL Urine Blood Negative (Negative) Urine Nitrite Negative (Negative) Ur Leukocyte Esterase Small (1+) H (Negative) Urine RBC 0-2 (0-2) /HPF Urine WBC 0-5 (0-5) /HPF Ur Squamous Epith Cells >20 (0-2) /HPF Urine Bacteria 2+ (None Seen) Hyaline Casts 0-2 (0-2) /LPF Influenza Type A (PCR) (Negative) Influenza Type B (PCR) (Negative) RSV RNA Qual (PCR) (Negative) SARS-CoV-2 RNA (RT-PCR) (Negative) <PAIGE Ortega - Last Filed: 11/09/22 01:05> Independent Interpretation I performed an independent interpretation of an: EKG <Zoya Roper MD - Last Filed: 11/08/22 22:54> Interpretation: Normal sinus rhythm, HR-72, no STEMI, ME/QRS/QTC are within normal limits. <Zoya Roper MD - Last Filed: 11/08/22 22:54> Radiology Impression Radiologist Impression: My interpretation is in agreement with radiology's impression of the imaging studies. <Zoya Roper MD - Last Filed: 11/08/22 22:54> External Record Review External record reviewed: Inpatient record, Outpatient record and Prior outpatient labs <Zoya Roper MD - Last Filed: 11/08/22 22:54> Chronic Conditions Patient?s care impacted by: Hypertension <Zoya Roper MD - Last Filed: 11/08/22 22:54> Discharge Plan Discharge Clinical Impression: Dehydration <PAIGE Vazquez - Last Filed: 11/08/22 16:16> Patient Disposition: Home, Self-Care <PAIGE Vazquez - Last Filed: 11/08/22 16:16> Instructions: Dehydration (ED) <PAIGE Vazquez - Last Filed: 11/08/22 16:16> Additional Instructions: 1. Resume all home medications. Your Lasix and nitroglycerin are waiting for you at your pharmacy. 2. Follow-up with your primary care provider by calling the office 1st thing in the morning. Return to the ER for any worsening symptoms. <PAIGE Vazquez - Last Filed: 11/08/22 16:16> Prescriptions: No Action aspirin 81 mg Tablet,Delayed Release (Dr/Ec) 81 mg PO DAILY Qty: 3 0RF clonidine 0.2 mg/24 hr patch weekly 1 patch topical QWEEK Rx Instructions: QTH lisinopril 20 mg tablet 1 tab PO BID acetaminophen 500 mg Tablet 500 mg PO Q6H PRN (Reason: Pain) trazodone 100 mg tablet 1 tab PO BEDTIME fluoxetine 20 mg capsule 1 cap PO DAILY Eliquis 2.5 mg tablet 1 tab PO BID sevelamer HCl [Renagel] 800 mg tablet 1,600 mg PO BID furosemide 40 mg Tablet 80 mg PO MOWEFR Qty: 30 0RF Protocol: Hold for SBP< HOLD for SBP < : 90 nitroglycerin 0.4 mg/hr Patch 24 Hour 0.4 mg transdermal DAILY Qty: 30 0RF Protocol: Hold for SBP< HOLD for SBP < : 90 carvedilol 12.5 mg tablet 25 mg PO BID Qty: 120 0RF hydralazine 50 mg Tablet 50 mg PO BID Qty: 60 0RF Protocol: Hold for SBP< HOLD for SBP < : 90 gabapentin 300 mg capsule 300 mg PO DAILY oxycodone 5 mg tablet 5 mg PO Q6H PRN (Reason: severe pain) calcitriol 0.5 mcg capsule 0.5 mcg PO 3XW Rx Instructions: given during dialysis amlodipine 10 mg tablet 10 mg PO DAILY <PAIGE Vazquez - Last Filed: 11/08/22 16:16> Referrals: Ayah Villalta MD [Primary Care Provider] - <PAIGE Vazquez - Last Filed: 11/08/22 16:16>
[2022-11-08 16:10] VITALS: BP 155/69; PULSE 75; RESP 20; TEMP 36.1; O2SAT 99; BMI 18.5
[2022-11-08] MEDS: Ondansetron ODT 4 MG TAB.RAPDIS TRANSLINGU (16:17)
[2022-11-08 17:01] LABS: MANUAL DIFF FLAG NO
[2022-11-08 17:07] LABS: Basophils Absolute Auto 0.1 X10*3/uL (0.0-0.2); Basophils Percent Auto 0.9 % (0-2); Eosinophils Absolute Auto 0.1 X10*3/uL (0.0-0.4); Hematocrit 33.4 % (37.0-47.0); Imm Gran Abs Auto 0.02 X10*3/uL (0.00-0.03); Imm Gran Pct Auto 0.3 % (0.0-0.4); Lymphocytes Absolute Auto 1.7 X10*3/uL (1.2-4.9); Lymphocytes Percent Auto 25.5 % (20-40); Mean Corpuscular HGB Conc 32.9 g/dl (31.0-35.0); Mean Corpuscular Hemoglobin 30.8 pg (27.0-33.0); Mean Corpuscular Volume 93.6 fL (80.0-98.0); Mean Platelet Volume 9.4 fL (9.4-12.3); Monocytes Absolute Auto 1.1 X10*3/uL (0.1-1.2); Monocytes Percent Auto 15.6 % (2-11); Neutrophils Absolute Auto 3.8 x10*3/uL (2.0-8.3); Neutrophils Percent Auto 56.7 % (45-73); Platelet Count 189 X10*3/uL (160-400); Red Blood Count 3.57 X10*6/uL (4.20-5.50); Red Cell Distribution Width 15.8 % (11.0-16.0); White Blood Count 6.7 X10*3/uL (4.8-10.8)
[2022-11-08 17:12] LABS: INTERNATIONAL NORM RATIO 1.1 (0.9-1.1); Prothrombin Time 12.3 SEC (10.0-13.1)
[2022-11-08 17:39] LABS: Influenza A PCR NEGATIVE (Negative); Influenza B PCR NEGATIVE (Negative); Resp Syncy Virus RNA Qual PCR NEGATIVE (Negative); SARS COV2 PCR INHOUSE NEGATIVE (Negative)
[2022-11-08 17:40] LABS: B Type Natriuretic Peptide 1460 pg/mL (<100); Troponin-I High Sensitivity 26.9 ng/L (<3.5-17.0)
[2022-11-08 17:46] LABS: Alanine Aminotransferase 6 U/L (0-31); Albumin Level 3.8 g/dL (3.5-5.0); Alkaline Phosphatase 118 U/L (39-117); Anion Gap 18 (12-20); Aspartate Amino Transferase 13 U/L (5-31); Bilirubin Total 0.6 mg/dL (0.0-1.0); Blood Urea Nitrogen 42 mg/dL (9-16); Calcium 9.1 mg/dL (8.4-10.2); Carbon Dioxide 20 mmol/L (22-29); Chloride 102 mmol/L (96-108); Creatinine Clr Calc Pharmacy 7.9; Estimated Glomerular Filt Rate 9; Glucose Random 90 mg/dL (60-115); Lipase 101 U/L (8-78); Magnesium 2.5 mg/dL (1.6-2.6); Sodium 135 mmol/L (135-145); Total Protein 7.7 g/dL (6.5-8.0)
[2022-11-08 20:51] VITALS: BP 169/80; PULSE 71; RESP 15; O2SAT 97
--- NOTE | 2022-11-08 20:52 | PC.NURSE ---
patient brought into room 9 from ED waiting room around 20:30. placed on shelter monitor, ekg done, iv line placed #20g RAC. vital signs updated. pt 97% RA but placed on 2L O2 for comfort and shortness of breath. pt reports headache, states she has not taken her blood pressure meds today. BP 169/80, waiting for ED provider evaluation. will CTM.
[2022-11-08 21:14] LABS: Troponin-I High Sensitivity 23.9 ng/L (<3.5-17.0)
[2022-11-08] MEDS: 0.9 % Sodium Chloride 500 ML 999 ML IV (21:58)
[2022-11-08] MEDS: Acetaminophen 325 MG TABLET 975 MG PO (21:58)
[2022-11-08 22:00] VITALS: BP 160/72; PULSE 71; RESP 12; TEMP 36.4; O2SAT 100
[2022-11-08] MEDS: Furosemide 20 MG/2 ML VIAL IVPUSH (22:45)
[2022-11-08 23:23] VITALS: BP 145/65; PULSE 72; RESP 20; O2SAT 96
[2022-11-09 00:12] VITALS: BP 180/160; PULSE 76
[2022-11-09 00:13] VITALS: BP 158/72; PULSE 74
[2022-11-09 00:16] VITALS: BP 162/77; PULSE 77
[2022-11-09 00:18] VITALS: BP 171/88; PULSE 75; RESP 12; TEMP 36.6; O2SAT 94
[2022-11-09 00:34] LABS: Appearance Urine Clear; Color Urine Yellow; Glucose Urine UA 100 mg/dL (Negative); Leukocyte Esterase Urine Small (1+) (Negative); Nitrite Urine Negative (Negative); PH 8.5 (5.0-9.0); Specific Gravity - Urine 1.015 (1.005-1.025); UMIC TRIGGER UACC YES; Urine Blood Negative (Negative); Urine Ketones Negative (Negative); Urine Protein 300 (3+) mg/dL (Neg-Trace)
[2022-11-09 00:44] LABS: Bacteria Urine 2+ (None Seen); Hyaline Casts Urine 0-2 /LPF (0-2); RBC Urine 0-2 /HPF (0-2); Squamous Epithelial Cell Urine >20 /HPF (0-2); UACC Culture Trigger YES; WBC Urine 0-5 /HPF (0-5)
[2022-11-09] MEDS: Furosemide 100 MG/10 ML VIAL 60 MG IVPUSH (00:54)
[2022-11-09] MEDS: lisinopriL 20 MG TABLET PO (00:55)
[2022-11-09] MEDS: Apixaban 2.5 MG TABLET PO (00:55)
[2022-11-09] MEDS: traZODone HCL 100 MG TABLET PO (00:55)
[2022-11-09] MEDS: oxyCODONE HCl Immed Release 5 MG TABLET PO (00:55)
[2022-11-09] MEDS: hydrALAZINE HCl 50 MG TABLET PO (00:55)
[2022-11-09] MEDS: carvediloL 12.5 MG TABLET 25 MG PO (00:55)
[2022-11-09 02:10] VITALS: BP 131/52; PULSE 61; RESP 13; TEMP 36.6; O2SAT 97
[2022-11-09 05:42] VITALS: BP 115/70; PULSE 59; RESP 18; TEMP 36.6; O2SAT 97
--- NOTE | 2022-11-09 05:51 | PC.NURSE ---
patient ambulatory to and from bathroom using walker, no issues
== END 2022-11-09 07:18 | disposition home or self-care (01) ==
PROVIDERS: Physician Assistant Medical; Emergency Provider Student in an Organized Health Care Education/Training Program; PCP Family Medicine
DX: E86.0 Dehydration (principal); R06.02 Shortness of breath; Z20.822 Contact with and (suspected) exposure to COVID-19; Z20.828 Contact with and (suspected) exposure to other viral communicable diseases; E11.22 Type 2 diabetes mellitus with diabetic chronic kidney disease; I13.2 Hypertensive heart and chronic kidney disease with heart failure and with stage 5 chronic kidney disease, or end stage renal disease; I50.9 Heart failure, unspecified; N18.6 End stage renal disease; Z99.2 Dependence on renal dialysis; I48.0 Paroxysmal atrial fibrillation; Z86.718 Personal history of other venous thrombosis and embolism; Z79.899 Other long term (current) drug therapy; Z79.01 Long term (current) use of anticoagulants; Z79.82 Long term (current) use of aspirin
CPT/HCPCS: 0241U; 36415; 70450; 71046; 80053; 81001; 83690; 83735; 83880; 84484; 85025; 85610; 87086; 93005; 96361; 96374; 96376; 99285; J1940

== ENCOUNTER 2022-12-08 09:02 | Outpatient (REF) | payer MEDICARE, MEDICAID, SELFPAY ==
--- NOTE | ~2022-12-08 | US_ITS ---
EXAMINATION: ULTRASOUND RENAL WITH DOPPLER CLINICAL INFORMATION: Heart failure. COMPARISON: None. TECHNIQUE: Real-time grayscale, color Doppler, and duplex Doppler evaluation of the kidneys and renal vasculature was performed. FINDINGS: RENAL MEASUREMENTS: Right: 7.2 x 2.9 x 3.8 cm (Sag x AP x TV) Left: 8.2 x 3.4 x 3.4 cm (Sag x AP x TV) The kidneys are atrophic. There is no hydronephrosis. Multiple benign cysts bilaterally, no follow-up imaging recommended. 4 mm calculus in the right lower pole. DOPPLER INTERROGATION: Aorta: 121 cm/sec Right Main Renal Artery: Proximal: 113 cm/sec Mid: 128 cm/sec Distal: 65 cm/sec Left Main Renal Artery: Proximal: 267 cm/sec Mid: 135 cm/sec Distal: 133 cm/sec Resistive indices: Right: 0.63-0.8. Left: 0.62-0.77. Renal vein: Right: Patent. Left: Patent. US/US renal BI IMPRESSION: Atrophic kidneys. No hydronephrosis. Elevated velocity proximal left renal artery may indicate hemodynamically significant stenosis. Recommend further evaluation with CTA/MRA abdomen without and with contrast if clinically indicated.
--- NOTE | ~2022-12-08 | US_ITS ---
EXAMINATION: ULTRASOUND RENAL WITH DOPPLER CLINICAL INFORMATION: Heart failure. COMPARISON: None. TECHNIQUE: Real-time grayscale, color Doppler, and duplex Doppler evaluation of the kidneys and renal vasculature was performed. FINDINGS: RENAL MEASUREMENTS: Right: 7.2 x 2.9 x 3.8 cm (Sag x AP x TV) Left: 8.2 x 3.4 x 3.4 cm (Sag x AP x TV) The kidneys are atrophic. There is no hydronephrosis. Multiple benign cysts bilaterally, no follow-up imaging recommended. 4 mm calculus in the right lower pole. DOPPLER INTERROGATION: Aorta: 121 cm/sec Right Main Renal Artery: Proximal: 113 cm/sec Mid: 128 cm/sec Distal: 65 cm/sec Left Main Renal Artery: Proximal: 267 cm/sec Mid: 135 cm/sec Distal: 133 cm/sec Resistive indices: Right: 0.63-0.8. Left: 0.62-0.77. Renal vein: Right: Patent. Left: Patent. US/US renal doppler IMPRESSION: Atrophic kidneys. No hydronephrosis. Elevated velocity proximal left renal artery may indicate hemodynamically significant stenosis. Recommend further evaluation with CTA/MRA abdomen without and with contrast if clinically indicated.
== END 2022-12-08 09:03 | disposition home or self-care (01) ==
LOC: HO.US 09:02
PROVIDERS: Visit Provider Internal Medicine
DX: I11.0 Hypertensive heart disease with heart failure (principal); I50.9 Heart failure, unspecified
CPT/HCPCS: 76775; 93975

== ENCOUNTER 2023-03-07 08:44 | Outpatient (AMB) | payer MEDICARE, MEDICAID, SELFPAY ==
--- NOTE | 2023-03-07 08:47 | A.OFFVIS_ITS ---
Intake Vital Signs 03/07/23 08:48 Height 5 ft 4 in Weight 119 lb 14.903 oz BMI 20.6 BP 174/72 H Blood Pressure Location Rt brachial Position Sitting Pulse 65 Intake Visit Reasons: follow up testing Intake Note: follow up [place] Supervisor Required: No Accompanied by: Self / Same As Patient Allergies atenolol [ATENOLOL] Allergy (Unknown, Verified 03/07/23 08:48) DIFF BREATHING, heart races. amphetamine [Adderall] Adverse Reaction (Unknown, Verified 03/07/23 08:48) shortness of breath dextroamphetamine [Adderall] Adverse Reaction (Unknown, Verified 03/07/23 08:48) shortness of breath Medication List - Last Reconciled 03/07/23 by Jose Elias Ugalde MD acetaminophen 500 mg PO Q6H PRN amlodipine 10 mg PO DAILY apixaban (Eliquis) 2.5 mg PO BID aspirin 81 mg PO DAILY carvedilol 25 mg (2 x 12.5 mg) PO BID clonidine 1 patch topical QWEEK fluoxetine 1 cap PO DAILY furosemide (Lasix) 80 mg PO Q OTHER DAY gabapentin 300 mg PO DAILY hydralazine 50 mg See Protocol PO BID lisinopril 20 mg PO BID nitroglycerin 0.4 mg/hr 0.4 mg See Protocol transdermal DAILY nitroglycerin 0.4 mg/hr 1 patch transdermal DAILY oxycodone 5 mg PO Q6H PRN sevelamer HCl (Renagel) 1,600 mg PO BID trazodone 1 tab PO BEDTIME HPI HPI Comments History of Present Illness Details Maryam returns for follow-up after recent hospitalization. She was admitted for congestive heart failure and treated accordingly. Has multiple medical comorbidities. Has coronary disease and underwent coronary artery bypass surgery in 2020. However, not seen in office since that time. She also has history of ESRD/dialysis. Poorly controlled blood pressure. Paroxysmal atrial fibrillation. Since the time of discharge, seems to be generally okay. Blood pressure still on the higher side. She does not really know all her medications accurately. [facility] Medical History (Updated 03/07/23 @ 09:13 by Jose Elias Ugalde MD) Anemia Aortic stenosis Asthmatic bronchitis Atherosclerotic cardiovascular disease CAD (coronary artery disease) CKD (chronic kidney disease), stage IV Depression DVT (deep venous thrombosis) End stage chronic kidney disease GERD (gastroesophageal reflux disease) History of ectopic Hypertension PAF (paroxysmal atrial fibrillation) Surgical History H/O colonoscopy History of carpal tunnel release of both wrists History of left knee replacement History of rectal surgery Status post total replacement of right shoulder Family History Father No problems noted. Mother No problems noted. Social History Household Members: Children Housing: House Do you presently have visiting nurse or other home services: Yes Alcohol intake: unknown Patient Tobacco Use Status: Never used Tobacco Cigarettes Per Day: 1 Advance Directives Date on File: 10/31/22 service: No Current occupational status: retired Current occupation: young,right handed Review of Systems Const Denies weakness ENT Denies dizziness Card Denies chest pain, Denies chest pain with activity, Denies syncope, Denies rapid heart rate, Denies pedal edema, Denies edema, Denies leg edema, Denies lightheadedness, Denies palpitations, Denies dyspnea, Denies dyspnea on exertion and Denies orthopnea Resp Denies cough, Denies dyspnea and Denies dyspnea on exertion GI Denies hematochezia and Denies change in stool character Musc Denies abnormal gait, Denies muscle cramps, Denies muscle weakness, Denies numbness, Denies radiating pain into limb and Denies tingling Neuro Denies abnormal gait, Denies dizziness, Denies syncope, Denies numbness, Denies tingling and Denies weakness Endo Denies palpitations Physical Exam Vital Signs: Last Vital Signs Pulse 65 03/07/23 08:48 BP 174/72 H 03/07/23 08:48 BMI result Body Mass Index 20.6 Const General: comfortable and no acute distress Orientation/consciousness: patient oriented x3 HEENT Other: Unremarkable Head: Yes normal to inspection Neck Neck: Yes normal visual inspection Chest Chest palpation & inspection: normal inspection of the chest Resp Auscultation: clear to auscultation bilaterally Cardio Palpation: normal PMI Heart sounds: S1 normal heart sound present, S2 normal heart sound present, no gallops, Murmur heart sound present systolic III/ and at the right sternal border and no rubs GI Palpation (GI): Soft to palpation Back/Spine/Pelvis Other: unremarkable Skin General skin exam: no rashes or lesions noted Neuro General: patient oriented x3 Extrem General: Yes normal to inspection Psych Mental Status: mental status grossly normal Assessment & Plan Assessment & Plan (1) Chronic heart failure with preserved ejection fraction (HFpEF): Code(s): I50.32 - Chronic diastolic (congestive) heart failure Plan: In the most recent echocardiogram, LVEF 45-50%. Grade 3 diastolic dysfunction. Clinically, not much volume overload. Optimal fluid removal with dialysis. Need to reconcile her meds by calling pharmacy. She does not know them very well. (2) Aortic stenosis: Code(s): I35.0 - Nonrheumatic aortic (valve) stenosis Plan: In the most recent echocardiogram, mean gradient across aortic valve was 21 mm Hg. Calculated valve area of 1 sq cm. Probable moderate aortic stenosis. To be monitored. (3) PAF (paroxysmal atrial fibrillation): Code(s): I48.0 - Paroxysmal atrial fibrillation Plan: Continue anticoagulation. Most recent EKG shows sinus rhythm rather. (4) Atherosclerotic cardiovascular disease: Code(s): I25.10 - Atherosclerotic heart disease of [place] coronary artery without angina pectoris Plan: History of coronary disease and coronary artery bypass surgery. No clinical angina. Stress test is pending. Previously ordered. Not listed to be on statins but again do not know the accurate list and need to call pharmacy. (5) Left carotid stenosis: Code(s): I65.22 - Occlusion and stenosis of left carotid artery Plan: Per [facility] discharge summary in 2020, described to have left carotid stenosis, 79%. At that time, there is mention of follow-up with [facility] vascular surgery for elective endarterectomy, but patient states she never saw anybody. Hence not clear. Will need repeat carotid ultrasound. Then can decide. (6) Hypertension: Code(s): I10 - Essential (primary) hypertension Plan: Once medications reconciled, probably go up on hydralazine. Still seems high. Plan Total time spent including review of hospitalization records from [place] and [facility], counseling, documentation, coordination of care-45 minutes. Orders: Orders US carotid duplex BI Today I65.23 - Occlusion and stenosis of bilateral carotid arteries Coding Level of Care Code Est Pt Level 5 (85313) Diagnoses Chronic heart failure with preserved ejection fraction (HFpEF) I50.32 Aortic stenosis I35.0 PAF (paroxysmal atrial fibrillation) I48.0 Atherosclerotic cardiovascular disease I25.10 Left carotid stenosis I65.22 Hypertension I10
[2023-03-07 08:48] VITALS: BP 174/72; PULSE 65; BMI 20.6
== END 2023-03-07 09:12 | disposition home or self-care (01) ==
PROVIDERS: Visit Provider Internal Medicine
DX: I50.32 Chronic diastolic (congestive) heart failure (principal); I35.0 Nonrheumatic aortic (valve) stenosis; I48.0 Paroxysmal atrial fibrillation; I25.10 Atherosclerotic heart disease of native coronary artery without angina pectoris; I65.22 Occlusion and stenosis of left carotid artery; I10 Essential (primary) hypertension
CPT/HCPCS: 99215

== ENCOUNTER → 2023-03-07 08:44 | Outpatient (BNVA) | payer MEDICARE, MEDICAID, SELFPAY | PROVIDERS: Visit Provider Internal Medicine | DX: I65.22 Occlusion and stenosis of left carotid artery (principal); I25.10 Atherosclerotic heart disease of native coronary artery without angina pectoris; I13.2 Hypertensive heart and chronic kidney disease with heart failure and with stage 5 chronic kidney disease, or end stage renal disease; N18.6 End stage renal disease; I50.32 Chronic diastolic (congestive) heart failure; I48.0 Paroxysmal atrial fibrillation; I35.0 Nonrheumatic aortic (valve) stenosis; Z99.2 Dependence on renal dialysis; Z95.1 Presence of aortocoronary bypass graft; Z79.82 Long term (current) use of aspirin; Z79.891 Long term (current) use of opiate analgesic; Z79.899 Other long term (current) drug therapy | CPT/HCPCS: 99212 ==

== ENCOUNTER 2023-03-10 07:31 | Observation (INO) | payer MEDICARE, MEDICAID, SELFPAY ==
--- NOTE | ~2023-03-10 | CT_ITS ---
EXAMINATION: CT HEAD WITHOUT CONTRAST CLINICAL INFORMATION: Headache. COMPARISON: 11/08/2022 TECHNIQUE: Contiguous axial imaging was performed from the skull base to vertex without intravenous administration of contrast. This CT examination was performed using dose optimization techniques as appropriate, variously including the following: *Automated exposure control *Adjustment of mA and/or kV according to patient size (this includes techniques or standardized protocols for targeted exams where dose is matched to indication/reason for exam; i.e. extremities or head) *Use of iterative reconstruction technique DLP: 543 mGy-cm FINDINGS: There is no evidence of acute intracranial hemorrhage or large territorial infarction. No mass effect or midline shift is seen. Young to white matter differentiation is well preserved. No extra-axial fluid collections are identified. Moderate to severe chronic white matter microangiopathic changes noted with generalized parenchymal volume loss and concordant ex vacuo dilatation of the ventricles. The mastoid air cells and visualized portions of the paranasal sinuses are well aerated. CT/CT head/brain wo IV con IMPRESSION: No acute intracranial pathology.
--- NOTE | ~2023-03-10 | XR_ITS ---
EXAMINATION: XR CHEST CLINICAL INFORMATION: Shortness of breath. COMPARISON: 10/31/2022 chest radiographs. TECHNIQUE: Frontal view of the chest was obtained. FINDINGS: Support devices: Left-sided large-bore central venous catheter with tip terminating over the right atrium. Atrial appendage clip in place. Multilevel sternotomy wires are intact. A focal opacity overlies the left portion of the cardiac silhouette. The lungs otherwise clear. The heart and mediastinal structures are unremarkable. Status post right shoulder arthroplasty. Severe left glenohumeral degenerative joint changes. XR/XR chest 1V IMPRESSION: Focal opacity overlying the left portion of the cardiac silhouette is nonspecific, but could represent atelectasis or an infiltrate. A repeat chest radiographic study with PA and lateral views is recommended.
--- NOTE | ~2023-03-10 | CT_ITS ---
EXAMINATION: CT CHEST WITHOUT CONTRAST CLINICAL INFORMATION: Shortness of breath. COMPARISON: 03/10/2023 TECHNIQUE: Multidetector volumetric CT imaging of the chest was done. Axial MIP volume rendering provided. Sagittal and coronal reformatted images were obtained. This CT examination was performed using dose optimization techniques as appropriate, variously including the following: *Automated exposure control *Adjustment of mA and/or kV according to patient size (this includes techniques or standardized protocols for targeted exams where dose is matched to indication/reason for exam; i.e. extremities or head) *Use of iterative reconstruction technique DLP: 291 mGy-cm FINDINGS: LUNGS: Moderate centrilobular emphysema. 4 mm nodule right upper lobe on image 101. 4 mm nodule right upper lobe on image 113. 4 mm nodule right upper lobe on image 135. 4 mm nodule right upper lobe on image 148. 4 mm nodule left lower lobe on image 201. 4 mm nodule in the lingula on image 289. Mass in the left lower lobe with irregular margins measures 2.9 x 4.0 cm on image 265. Mild subpleural reticulation at the lung bases with associated cystic change. Diffuse bronchiectasis. Central airways are patent. MEDIASTINUM: Imaged thyroid gland is heterogeneous. No bulky axillary, hilar or mediastinal lymphadenopathy. Great vessels are of normal caliber. Status post cardiac surgery. No pericardial effusion. CORONARY ARTERY CALCIFICATION: Severe. PLEURA: Trace bilateral pleural effusions. UPPER ABDOMEN: Large hiatal hernia. No adrenal mass. OSSEOUS STRUCTURES: Severe degenerative changes of the right shoulder with bony remodeling and bursitis. Status post right total shoulder arthroplasty. Prior median sternotomy. CT/CT chest wo IV con IMPRESSION: Left lower lobe mass measures 2.9 x 4.3 cm concerning for neoplasm. Consultation with thoracic surgery is advised. PET/CT may be considered. Several bilateral smaller pulmonary nodules may represent intrapulmonary metastases. Interstitial lung disease. Findings were reviewed and discussed with PAIGE Birmingham at 4:13 PM on 03/10/2023.
[2023-03-10 07:35] VITALS: BP 143/63; PULSE 67; RESP 20; TEMP 36.5; O2SAT 96
[2023-03-10 07:39] VITALS: BP 142/62; BP 143/63; PULSE 64; PULSE 65; RESP 20; TEMP 36.6; O2SAT 96; O2SAT 97; BMI 21.0
--- NOTE | 2023-03-10 07:44 | ED_ITS ---
HPI - General Adult General Chief complaint: Weakness Stated complaint: Weakness, SOB, pain all over per EMS Time Seen by Provider: 03/10/23 07:43 Source: patient and EMS Mode of arrival: EMS Limitations: no limitations History of Present Illness HPI narrative: 73-year-old female history of carotid stenosis CKD on hemodyalisis (M,W,F last session today but only recieved 35 minutes) , heart failure, arthrosclerotic cardiovascular disease, paroxysmal atrial fibrillation on anticoagulants, NSTEMI, DVT again anticoagulated presenting to the emergency department with complaints of weakness, shortness breath, fatigue, malaise, myalgias, headache ( diffuse, no visual changes or trauma) , since 399. Patient denies associated chest pain, fevers, chills, nausea, vomiting, abdominal pain, vision changes, dizziness and weakness. No recent sick contacts. Patient reports that she started hydralazine 100 mg TID recently which she thinks may be contributing to symptoms. Related Data Home Medications Medication Instructions Recorded Confirmed amlodipine 10 mg tablet 10 mg PO DAILY 08/10/20 03/07/23 acetaminophen 500 mg tablet 500 mg PO Q6H PRN Pain 10/30/22 03/07/23 clonidine 0.2 mg/24 hr weekly 1 patch topical QWEEK 10/30/22 03/07/23 transdermal patch sevelamer HCl 800 mg tablet 1,600 mg PO BID 10/30/22 03/07/23 (Renagel) trazodone 100 mg tablet 1 tab PO BEDTIME 10/30/22 03/07/23 gabapentin 300 mg capsule 300 mg PO DAILY 11/09/22 03/07/23 oxycodone 5 mg tablet 5 mg PO Q6H PRN severe pain 11/09/22 03/07/23 apixaban 2.5 mg tablet (Eliquis) 2.5 mg PO BID 03/07/23 03/07/23 furosemide 40 mg tablet (Lasix) 40 mg PO DAILY 03/07/23 lisinopril 20 mg tablet 20 mg PO BID 03/07/23 03/07/23 Previous Rx's Medication Instructions Recorded nitroglycerin 0.4 mg/hr 0.4 mg transdermal DAILY #30 ea 11/03/22 transdermal 24 hour patch nitroglycerin 0.4 mg/hr 1 patch transdermal DAILY #30 ea 11/09/22 transdermal 24 hour patch carvedilol 12.5 mg tablet 12.5 mg PO BID #120 tabs 03/07/23 hydralazine 100 mg tablet 100 mg PO TID 90 days #270 tabs 03/07/23 Allergies Allergy/AdvReac Type Severity Reaction Status Date / Time atenolol [ATENOLOL] Allergy Unknown DIFF Verified 03/07/23 08:48 BREATHING, heart races. amphetamine [Adderall] AdvReac Unknown shortness Verified 03/07/23 08:48 of breath dextroamphetamine [Adderall] AdvReac Unknown shortness Verified 03/07/23 08:48 of breath Review of Systems Review of Systems: Constitutional : No Weight loss, No Fever, No Chills, + Fatigue, + Malaise ENT/Mouth : No sore throat, No Rhinorrhea Eyes: No Eye Pain, No Swelling, No Redness Cardiovascular : No Chest Pain, + SOB, No Dyspnea on Exertion, No Orthopnea, No Edema, No Palpitations Respiratory : No Cough, No Sputum, No Wheezing Gastrointestinal : No Nausea, No Vomiting, No Diarrhea, No Constipation, No abdominal Pain, No Hematochezia, No Melena Genitourinary : No Dysuria, No Urinary Frequency, No Hematuria, Musculoskeletal : No joint pain, No Myalgias, No Joint Swelling Skin : No Skin Lesions, No rash Neuro : + Weakness, No Numbness, No Dizziness, + Headache Psych : No Anxiety/Panic, No Depression All other systems reviewed and are negative Yes all other systems are reviewed and are negative [facility] Past Medical History Attestation statement: The following information was validated with the patient. Source: old records reviewed and nursing notes reviewed Medical History Anemia Aortic stenosis Asthmatic bronchitis Atherosclerotic cardiovascular disease CAD (coronary artery disease) CKD (chronic kidney disease), stage IV Depression DVT (deep venous thrombosis) End stage chronic kidney disease GERD (gastroesophageal reflux disease) History of ectopic Hypertension PAF (paroxysmal atrial fibrillation) Surgical History H/O colonoscopy History of carpal tunnel release of both wrists History of left knee replacement History of rectal surgery Status post total replacement of right shoulder Family History Family History Father No problems noted. Mother No problems noted. Social History Social History Household Members: Children Housing: House Do you presently have visiting nurse or other home services: Yes Alcohol intake: unknown Patient Tobacco Use Status: Never used Tobacco Cigarettes Per Day: 1 Smoked in Last 30 Days: Yes Use of substances other than those prescribed or required for medical reasons: No Advance Directives: Yes Advance Directives Information Provided: Yes Advance Directives on File: No Advance Directives Date on File: 10/31/22 service: No Current occupational status: retired Current occupation: young,right handed Physical Exam ED Vital Signs: Vital Signs - 24 hr 03/10/23 07:35 03/10/23 07:39 03/10/23 11:09 Temperature 97.7 F 97.9 F Pulse Rate 67 65 69 Respiratory Rate 20 20 16 Blood Pressure 143/63 H 143/63 H 147/68 H Pulse Oximetry 96 97 96 Oxygen Delivery Method Room Air Room Air Room Air 03/10/23 15:11 Temperature 98.4 F Pulse Rate 68 Respiratory Rate 18 Blood Pressure 125/60 Pulse Oximetry 94 Oxygen Delivery Method Room Air BMI result Body Mass Index 21.0 vss Appearance: Alert.? Oriented X3.? No acute distress.? Head: Normocephalic, atraumatic, no step-offs or deformities Eyes: Pupils equal, round and reactive to light.? Neck: Normal inspection.? Neck supple.? CVS: Normal heart rate and rhythm.? Pulses normal.? Respiratory: No respiratory distress.? Breath sounds diminished b/l.? Abdomen: Soft and nontender.? Skin: Skin warm and dry.? Normal skin color.? Normal skin turgor.? Extremities: No lower extremity edema.? No calf ttp. Global weakness Neuro: Oriented X 3.? No motor deficit.? No sensory deficit. CN 2-12 intact Course Reevaluation(s) Reevaluation #1: Patient's CBC with a normocytic anemia which appears to be baseline. Chemistry sodium 131, likely secondary to poor p.o. intake/dehydration BUN and creatinine elevated chronically patient has history of stage 5 CKD, on hemodialysis, last received dialysis earlier today however only received 35 minutes. This is not an acute finding, chronic in nature, scheduled to have dialysis again on Monday. Trop negative EKG non ischemic, unlikely ACS. CXR and head CT pending Time: 09:21 Reevaluation #2: Chest x-ray with focal opacity overlying the left portion of the cardiac silhouette, likely atelectasis I do not suspect infiltrate. Will obtain Chest CT . Head CT with no acute intracranial hemorrhage or pathology Time: 15:19 Reevaluation #3: Patient continues to complain of shortness of breath, I did receive a critical call from [facility] stating lung cancer noted on CT chest, results communicated with patient. Patient does not feel strong enough to walk, still complaining of shortness of breath, plan for hospital admission. Patient feels to weak to ambulate Time: 16:16 Medical Decision Making Medical Decision Making [facility] Narrative: 0745 73 year old female present weakness, headache, shortness of breath since this morning coming from dialysis. PE- significant for diminishe breathsounds b/l, global wekaness. NIHSS-0. Neuro nonfocal. Concerns for UTI or electrolyte abnormalities vs side effect of hydralazine. Likely typical headache unlikely ICH, stroke, posterior stroke. Unlikely PE pat ient anticoagulated. Hx and PE not constistent w/ CHF or PNA. Unlikely ACS. other diferentials include viral illness. Plan- labs, imaging, urine, ekg Differential Diagnosis Differential Diagnoses: The differential diagnosis associated with the presentation includes Concerns for UTI or electrolyte abnormalities vs side effect of hydralazine . Likely typical headache unlikely ICH, stroke, posterior stroke. Unlikely PE dorian ent anticoagulated. Hx and PE not constistent w/ CHF or PNA. Unlikely ACS. other diferentials include viral illness. Admission/Observation Consideration of admission/observation: Escalation of care including admission/observation considered Lab Data [facility] Lab Attestation statement: I reviewed the patient's lab results. 03/10/23 08:00 03/10/23 08:00 Labs: Lab Results 03/10/23 03/10/23 03/10/23 Range/Units 07:42 08:00 08:00 WBC 7.9 (4.8-10.8) X10*3/uL RBC 3.56 L (4.20-5.50) X10*6/uL Hgb 11.4 L (12.0-16.0) g/dl Hct 34.6 L (37.0-47.0) % MCV 97.2 (80.0-98.0) fL MCH 32.0 (27.0-33.0) pg MCHC 32.9 (31.0-35.0) g/dl RDW 14.3 (11.0-16.0) % Plt Count 159 L (160-400) X10*3/uL MPV 9.6 (9.4-12.3) fL Immature Gran % (Auto) 0.4 (0.0-0.4) % Neut % (Auto) 75.4 H (45-73) % Lymph % (Auto) 13.6 L (20-40) % Dukes % (Auto) 9.0 (2-11) % Eos % (Auto) 1.1 (0-4) % Baso % (Auto) 0.5 (0-2) % Lymph # (Auto) 1.1 L (1.2-4.9) X10*3/uL Dukes # (Auto) 0.7 (0.1-1.2) X10*3/uL Eos # (Auto) 0.1 (0.0-0.4) X10*3/uL Baso # (Auto) 0.0 (0.0-0.2) X10*3/uL Abs Immat Gran (auto) 0.03 (0.00-0.03) X10*3/uL Absolute Neuts (auto) 6.0 (2.0-8.3) x10*3/uL Absolute Nucleated RBC 0.000 (0.0-0.012) X10*3/uL Nucleated RBC % (auto) 0.0 (0.0-0.2) /100WBC Sodium 131 L (135-145) mmol/L Potassium 4.7 (3.3-5.1) mmol/L Chloride 98 (96-108) mmol/L Carbon Dioxide 19 L (22-29) mmol/L Anion Gap 19 (12-20) BUN 50 H (9-16) mg/dL Creatinine 4.58 H* (0.5-1.4) mg/dL Estim Creat Clear Calc 9.1 Estimated GFR 9 POC Glucose 96 (60-115) mg/dL Random Glucose 94 (60-115) mg/dL Calcium 8.5 D (8.4-10.2) mg/dL Magnesium 2.0 (1.6-2.6) mg/dL Total Bilirubin 0.4 (0.0-1.0) mg/dL AST 13 (5-31) U/L ALT 7 (0-31) U/L Alkaline Phosphatase 130 H (39-117) U/L Troponin I High Sens (<3.5-17.0) ng/L B-Natriuretic Peptide (<100) pg/mL Total Protein 7.5 (6.5-8.0) g/dL Albumin 3.6 (3.5-5.0) g/dL COVID-19 ([place]) (Negative) COVID-19 Clin Com 03/10/23 03/10/23 03/10/23 Range/Units 08:00 08:00 08:01 WBC (4.8-10.8) X10*3/uL RBC (4.20-5.50) X10*6/uL Hgb (12.0-16.0) g/dl Hct (37.0-47.0) % MCV (80.0-98.0) fL MCH (27.0-33.0) pg MCHC (31.0-35.0) g/dl RDW (11.0-16.0) % Plt Count (160-400) X10*3/uL MPV (9.4-12.3) fL Immature Gran % (Auto) (0.0-0.4) % Neut % (Auto) (45-73) % Lymph % (Auto) (20-40) % Dukes % (Auto) (2-11) % Eos % (Auto) (0-4) % Baso % (Auto) (0-2) % Lymph # (Auto) (1.2-4.9) X10*3/uL Dukes # (Auto) (0.1-1.2) X10*3/uL Eos # (Auto) (0.0-0.4) X10*3/uL Baso # (Auto) (0.0-0.2) X10*3/uL Abs Immat Gran (auto) (0.00-0.03) X10*3/uL Absolute Neuts (auto) (2.0-8.3) x10*3/uL Absolute Nucleated RBC (0.0-0.012) X10*3/uL Nucleated RBC % (auto) (0.0-0.2) /100WBC Sodium (135-145) mmol/L Potassium (3.3-5.1) mmol/L Chloride (96-108) mmol/L Carbon Dioxide (22-29) mmol/L Anion Gap (12-20) BUN (9-16) mg/dL Creatinine (0.5-1.4) mg/dL Estim Creat Clear Calc Estimated GFR POC Glucose (60-115) mg/dL Random Glucose (60-115) mg/dL Calcium (8.4-10.2) mg/dL Magnesium (1.6-2.6) mg/dL Total Bilirubin (0.0-1.0) mg/dL AST (5-31) U/L ALT (0-31) U/L Alkaline Phosphatase (39-117) U/L Troponin I High Sens 12.1 (<3.5-17.0) ng/L B-Natriuretic Peptide 393 H (<100) pg/mL Total Protein (6.5-8.0) g/dL Albumin (3.5-5.0) g/dL COVID-19 ([place]) Negative (Negative) COVID-19 Clin Com See Note 03/10/23 Range/Units 09:34 WBC (4.8-10.8) X10*3/uL RBC (4.20-5.50) X10*6/uL Hgb (12.0-16.0) g/dl Hct (37.0-47.0) % MCV (80.0-98.0) fL MCH (27.0-33.0) pg MCHC (31.0-35.0) g/dl RDW (11.0-16.0) % Plt Count (160-400) X10*3/uL MPV (9.4-12.3) fL Immature Gran % (Auto) (0.0-0.4) % Neut % (Auto) (45-73) % Lymph % (Auto) (20-40) % Dukes % (Auto) (2-11) % Eos % (Auto) (0-4) % Baso % (Auto) (0-2) % Lymph # (Auto) (1.2-4.9) X10*3/uL Dukes # (Auto) (0.1-1.2) X10*3/uL Eos # (Auto) (0.0-0.4) X10*3/uL Baso # (Auto) (0.0-0.2) X10*3/uL Abs Immat Gran (auto) (0.00-0.03) X10*3/uL Absolute Neuts (auto) (2.0-8.3) x10*3/uL Absolute Nucleated RBC (0.0-0.012) X10*3/uL Nucleated RBC % (auto) (0.0-0.2) /100WBC Sodium (135-145) mmol/L Potassium (3.3-5.1) mmol/L Chloride (96-108) mmol/L Carbon Dioxide (22-29) mmol/L Anion Gap (12-20) BUN (9-16) mg/dL Creatinine (0.5-1.4) mg/dL Estim Creat Clear Calc Estimated GFR POC Glucose (60-115) mg/dL Random Glucose (60-115) mg/dL Calcium (8.4-10.2) mg/dL Magnesium (1.6-2.6) mg/dL Total Bilirubin (0.0-1.0) mg/dL AST (5-31) U/L ALT (0-31) U/L Alkaline Phosphatase (39-117) U/L Troponin I High Sens 11.0 (<3.5-17.0) ng/L B-Natriuretic Peptide (<100) pg/mL Total Protein (6.5-8.0) g/dL Albumin (3.5-5.0) g/dL COVID-19 ([place]) (Negative) COVID-19 Clin Com Independent Interpretation I performed an independent interpretation of an: CT Scan (CT/CT chest wo IV con IMPRESSION: Left lower lobe mass measures 2.9 x 4.3 cm concerning for neoplasm. Consultation with thoracic surgery is advised. PET/CT may be considered. Several bilateral smaller pulmonary nodules may represent intrapulmonary metastases. Interstitial lung disease. Finding) Radiology Impression Discussion of test interpretation with radiology: I have reviewed the radiologist's reading. Core Measures AMI core measures followed: Yes Measure exclusions: not indicated Critical Care Time Critical Care Time Critical Care Time: No Discharge Plan Discharge Clinical Impression: Interstitial lung disease, Lung mass, Shortness of breath, Physical deconditioning Patient Disposition: Admitted As Inpatient Prescriptions: No Action carvedilol 12.5 mg tablet 12.5 mg PO BID Qty: 120 0RF furosemide [Lasix] 40 mg tablet 40 mg PO DAILY hydralazine 100 mg tablet 100 mg PO TID 90 Days Qty: 270 3RF clonidine 0.2 mg/24 hr patch weekly 1 patch topical QWEEK Rx Instructions: QTH acetaminophen 500 mg Tablet 500 mg PO Q6H PRN (Reason: Pain) trazodone 100 mg tablet 1 tab PO BEDTIME sevelamer HCl [Renagel] 800 mg tablet 1,600 mg PO BID nitroglycerin 0.4 mg/hr Patch 24 Hour 0.4 mg transdermal DAILY Qty: 30 0RF Protocol: Hold for SBP< HOLD for SBP < : 90 Eliquis 2.5 mg tablet 2.5 mg PO BID lisinopril 20 mg tablet 20 mg PO BID gabapentin 300 mg capsule 300 mg PO DAILY oxycodone 5 mg tablet 5 mg PO Q6H PRN (Reason: severe pain) nitroglycerin 0.4 mg/hr patch 24 hour 1 patch transdermal DAILY Qty: 30 0RF Rx Instructions: allow nitrate-free interval of approx. 10-12 hrs per 24-hour period amlodipine 10 mg tablet 10 mg PO DAILY
--- NOTE | 2023-03-10 07:44 | ECG_ITS ---
Test Reason : WEAKNESS Blood Pressure : / mmHG Vent. Rate : 066 BPM Atrial Rate : 066 BPM P-R Int : 198 ms QRS Dur : 096 ms QT Int : 450 ms P-R-T Axes : 060 -22 026 degrees QTc Int : 471 ms Sinus rhythm with occasional Premature ventricular complexes Septal infarct , age undetermined Abnormal ECG When compared with ECG of 08-NOV-2022 20:38, Premature ventricular complexes are now Present Nonspecific T wave abnormality now evident in Inferior leads Nonspecific T wave abnormality, improved in Anterior leads T wave inversion now evident in Lateral leads Referred By: Wale Birmingham Electronically Signed By:SAMMY GARZA MD
[2023-03-10 07:45] LABS: Glucose, Whole Blood 96 mg/dL (60-115)
--- OUTSIDE RECORDS SUMMARY | 2023-03-10 07:59 | XMS_ITS | Continuity of Care Document ---
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 Name Role Phone Demarco GORMAN, Silke Primary Care Physician [phone] Encounter [facility] Date(s): 11/04/22 - 12/04/22 [facility] [address] [place] [address]- Attending Physician: Aniceto Multani Admitting Physician: Aniceto Multani Referring Physician: [id number] Allergies, Adverse Reactions, Alerts Substance Reaction Severity Status atenolol Cardiac Palpitations Active doxycycline Active Adderall Active Duloxetine diarrhea Active Immunizations Given and Recorded Vaccine Date Status Refusal Reason SARS-CoV-2 (COVID-19) mRNA-1273 vaccine 01/28/22 R ecorded SARS-CoV-2 (COVID-19) mRNA-1273 vaccine 07/12/21 R ecorded SARS-CoV-2 (COVID-19) mRNA-1273 vaccine 06/18/21 R ecorded influenza virus vaccine, inactivated 06/04/21 Jae rded influenza virus vaccine, inactivated 1 05/31/17 Gi norma influenza virus vaccine, inactivated 06/23/16 Give n influenza virus vaccine, inactivated 06/29/15 Give n influenza virus vaccine, inactivated 05/19/14 Give n influenza virus vaccine, inactivated 04/26/13 Give n influenza virus vaccine, inactivated 2 09/13/12 Gi norma tetanus-diphtheria toxoids (Td) 04/13/19 Recorded pneumococcal 13-valent vaccine 12/31/14 Given pneumococcal 13-valent vaccine 3 12/31/14 Given pneumococcal 23-valent vaccine 01/21/14 Given tetanus/diphtheria/pertussis, acel(Tdap) 09/13/12 Given 1Result Comment: [05/31/2017] [id number] 2Admin Note: 1-13 [employer] Pixelated 3Result Comment: [12/31/2014 Uncharted] PUT IN TWICE Medications acetaminophen 325 mg oral tablet 650 mg, 2, tablet, By Mouth, Every 6 hours, PRN, Refills 0, Maintenance, pain/fever >100F, 01/04/21 15:36:00 EDT, ; Start Date: 01/04/21 Status: Ordered amLODIPine 10 mg oral tablet 1 tablet = 10 mg, By Mouth, Daily, 0 Refills, Maintenance, 05/14/21 9:20:00 EDT, Tablet, ; Start Date: 05/14/21 Status: Ordered aspirin 81 mg oral delayed release tablet 81 mg, 1, tablet, By Mouth, Daily, Refills 0, Maintenance, 06/27/22 1:42:00 EST, ; Start Date: 06/27/22 Status: Ordered carvedilol 6.25 mg oral tablet 6.25 mg, 1, tablet, By Mouth, 2 times a day, Refills 0, Maintenance, 06/13/22 13:35:00 EDT, ; Start Date: 06/13/22 Status: Ordered cloNIDine 0.2 mg/24 hr transdermal film, extended release 1 patch, Topically, Every week, on Monday, 0 Refills, Maintenance, 10/28/21 17:37:00 EDT, Patch, ; Start Date: 10/28/21 Status: Ordered Eliquis 2.5 mg oral tablet 1 tablet, By Mouth, 2 times a day, # 56 tablet, 10 Refills, Maintenance, 09/20/22 8:15:00 EST, [facility], 162.5, cm, 06/28/22 11:05:00 EST, Height, 56, kg, 06/28/22 10:26:00 EST, Dry Weight Start Date: 09/20/22 Status: Ordered lisinopril 20 mg oral tablet 20 mg, 1, tablet, By Mouth, Daily, Maintenance, 06/27/22 9:38:00 EST, ; Start Date: 06/27/22 Status: Ordered loperamide 2 mg oral tablet 1 tablet = 2 mg, By Mouth, Daily, PRN as needed, Maintenance, 06/27/22 9:38:00 EST, ; Start Date: 06/27/22 Status: Ordered sevelamer carbonate 800 mg oral tablet 2 tablet = 1,600 mg, By Mouth, 2 times a day, 0 Refills, Maintenance, 04/29/22 10:40:00 EDT, Tablet, ; Start Date: 04/29/22 Status: Ordered traZODone 100 mg oral tablet 100 mg, 1, tablet, By Mouth, Daily at bedtime, Refills 0, Maintenance, 05/16/22 8:26:00 EDT, ; Start Date: 05/16/22 Status: Ordered Problem List Condition Confirmation Course Effective Dates Status Health Status Informant Allergic rhinitis Confirmed Active Anxiety state NOS Confirmed Active Atrial fibrillation Confirmed Active CABG (Coronary artery bypass grafting) planned Confirmed Active Chronic kidney disease (CKD) stage G3b/A3 Confirmed Active 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 Confirmed Active Depression, major Confirmed Active ESRD - End stage renal disease Confirmed Active KATHY (generalized anxiety disorder) Confirmed Active Chronic generalized pain Confirmed Active 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 Active Gout Confirmed Active Heart failure with preserved ejection fraction Confirmed Active History of smoking - quit 1978 08 Confirmed Active Hyperlipidemia Confirmed Active Hypertension Confirmed Active Hypertensive nephropathy Confirmed 09/13/12 Active Insomnia Confirmed Active Ischemic cardiomyopathy Confirmed Active 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 Active OA (osteoarthritis) of knee - both knees Confirmed Active Osteoarthritis of lumbar spine Confirmed Active Osteopenia Confirmed Active Peripheral neuropathy Confirmed Active Rectal prolapse Confirmed Active Vitamin D deficiency Confirmed Active 1Quit 1978 Social History Social History Type Response Smoking Status Former smoker, quit more than 30 days ago;Never; Other: qquit smoking 1 ppd in 1979 and then occasional 1-3 cigarettes on occasion, last cigarette prior to May; entered on: 06/27/22 Sex Note * Event Display: Non Lab Results Authored Date: Patient Care team information Care Team Personnel Name: Stephanie Maher RN Position: [facility] Outreach Member Role: Primary Care Nurse Name: Quan Virgen RN Position: [facility] RN Member Role: Primary Care Nurse Name: Rachel Sotelo Position: [facility] RN Member Role: Primary Care Nurse Name: Susana Chaney LPN Position: [facility] RN Member Role: Primary Care Nurse Name: Betty Cabrera NP Position: [facility] Associate Professional Member Role: Primary Care Nurse Address: Address: [address] [place] [address] Name: Uma Ndiaye Position: [facility] Outreach Member Role: Lifetime Consulting Physician Name: Gracie Casiano Position: [facility] Outreach Member Role: Lifetime Consulting Physician Name: Christy Tillman NP Position: [facility] Associate Professional Member Role: Lifetime Consulting Provider Address: Address: [address] [facility] [facility] [address] [facility] [place] [address]- Name: Kirk Morse DO Position: [facility] Renal MD Member Role: Lifetime Consulting Physician Address: Address: [address] [facility] [address] [facility] [place] [address]- Name: Kaelyn Gutiérrez Position: [facility] TA Member Role: Lifetime Consulting Physician Name: Uma Valdovinos Position: [facility] Outreach Member Role: Lifetime Consulting Physician Name: Janelle Arora RN Position: [facility] RN Member Role: Primary Care Nurse Name: Prasanna Belle III, RN Position: [facility] RN Member Role: Primary Care Nurse Name: Suellen Lazcano RN Position: [facility] ED RN W/OE and Tasks Member Role: Primary Care Nurse Name: Rubia Pardo LPN Position: [facility] RN Member Role: Primary Care Nurse Name: Florencio Ferreira MD Position: [facility] Renal MD Member Role: Lifetime Consulting Physician Address: Address: [address] [facility] [place] [address]- Name: Priscila López RN Position: [facility] RN Member Role: Primary Care Nurse Name: Silke Pal MD Position: [facility] Primary Care Physician Member Role: PCP Address: Address: [address] [place] [address] [facility] [place] [address]- Name: Bnonie Ann RN Position: [facility] RN Member Role: Primary Care Nurse Name: Felipa Burr RN Position: [facility] RN Member Role: Primary Care Nurse Name: Jennifer Alex RN Position: [facility] RN Member Role: Primary Care Nurse Name: Saskia Fontana RN Position: [facility] RN Member Role: Primary Care Nurse Name: Beatris Gaytan RN Position: [facility] RN Member Role: Primary Care Nurse Care Team Related Persons Name: VAL HEARN Address: [address] [place] [address] Name: ABIMAEL HEARN Name: YUSUF HEARN Address: [address] [place] [address]
--- OUTSIDE RECORDS SUMMARY | 2023-03-10 07:59 | XMS_ITS | Continuity of Care Document ---
Author Name Unknown Organization [facility] Address [address] [place] [address]- Care Team Providers Care Data Reviewer Name Role Phone Demarco GORMAN, [facility]s): 10/14/22 - 11/13/22 [facility] [address] [place], [place] [address] Allergies, Adverse Reactions, Alerts Substance Reaction Severity [...] tetanus/diphtheria/pertussis, acel(Tdap) 09/13/12 Given 1Result Comment: [05/31/2017] [id number] 2Admin Note: 1-13 [facility] 3Result Comment: [12/31/2014 Uncharted] PUT IN TWICE [...] tablet, 10 Refills, Maintenance, 09/20/22 8:15:00 EST, [facility], 162.5, cm, 06/28/22 11:05:00 EST, [...] (CKD) stage G3b/A3 Confirmed Active CAD in [place] artery Confirmed Active Depression, major Confirmed Active [...] Sex Patient Care team information Care Team Personnel Name: Stephanie Maher RN Position: [facility] Outreach Member Role: Primary Care Nurse Name: Quan Virgen RN Position: [facility] RN Member Role: Primary Care Nurse Name: Rachel Sotelo Position: [facility] RN Member Role: Primary Care Nurse Name: Susana Chaney LPN Position: [facility] RN Member Role: Primary Care Nurse Name: Betty Cabrera NP Position: [facility] Associate Professional Member Role: Primary Care Nurse Address: Address: [address] [place] [id number] Name: Uma Ndiaye Position: [facility] Outreach Member Role: Lifetime Consulting Physician Name: Gracie Casiano Position: [facility] Outreach Member Role: Lifetime Consulting Physician Name: Christy Tillman NP Position: [facility] Associate Professional Member Role: Lifetime Consulting Provider Address: Address: [address] [facility] [address] [facility] [place] [address]- [place] Name: Kirk Morse DO Position: [facility] Renal MD Member Role: Lifetime Consulting Physician Address: Address: [address] [facility] [place] [address]- [place] Name: Uma Valdovinos Position: [facility] Outreach Member Role: Lifetime Consulting Physician Name: Janelle Arora RN Position: [facility] RN Member Role: Primary Care Nurse Name: Prasanna Belle III, RN Position: [facility] RN Member Role: Primary Care Nurse Name: Suellen Lazcano RN Position: [facility] ED RN W/OE and Tasks Member Role: Primary Care Nurse Name: Rubia Pardo LPN Position: [facility] RN Member Role: Primary Care Nurse Name: Florencio Ferreira MD Position: [facility] Renal MD Member Role: Lifetime Consulting Physician Address: Address: [address] [facility] [place] [place] [address]- [place] Name: Priscila López RN Position: [facility] RN Member Role: Primary Care Nurse Name: Silke Pal MD Position: [facility] Primary Care Physician Member Role: PCP Address: Address: [address] [place] [address] Adult [facility] [place] [address]- [place] Name: Bonnie Ann RN Position: [facility] RN Member Role: Primary Care Nurse Name: Felipa Burr RN Position: [facility] RN Member Role: Primary Care Nurse Name: Jennifer Alex RN Position: [facility] RN Member Role: Primary Care Nurse Name: Saskia Fontana RN Position: [facility] RN Member Role: Primary Care Nurse Name: Beatris Gaytan RN Position: [facility] RN Member Role: Primary Care Nurse Care Team Related Persons Name: VAL HEARN Address: [address] [place] [address] Name: ABIMAEL HEARN Name: YUSUF HEARN Address: home [address] [place] [address]
--- OUTSIDE RECORDS SUMMARY | 2023-03-10 08:01 | XMS_ITS | Continuity of Care Document ---
Author Name Unknown Organization [facility] Address [address] [place] [address]- Care Team Providers Care Seal Skinner Name Role Phone Demarco [facility]MAN, [facility]): 12/01/22 - 12/31/22 [facility] [address] [place], [place] [address] Allergies, Adverse Reactions, Alerts Substance Reaction [...] tetanus/diphtheria/pertussis, acel(Tdap) 09/13/12 Given 1Result Comment: [05/31/2017] [id number] 2Admin Note: 1-13 [facility] [place] 3Result Comment: [12/31/2014 Uncharted] PUT IN TWICE [...] tablet, 10 Refills, Maintenance, 09/20/22 8:15:00 EST, [facility], 162.5, cm, 06/28/22 11:05:00 EST, Height, [...] (CKD) stage G3b/A3 Confirmed Active CAD in [place] artery Confirmed Active Depression, [...] Team Personnel Name: Stephanie Maher RN Position: [facility] Outreach Member Role: Primary Care Nurse Name: Quan Virgen RN Position: [facility] RN Member Role: Primary Care Nurse Name: Rachel Sotelo Position: [facility] RN Member Role: Primary Care Nurse Name: Susana Chaney LPN Position: [facility] RN Member Role: Primary Care Nurse Name: Betty Cabrera NP Position: [facility] Associate Professional Member Role: Primary Care Nurse Address: Address: [address] [place] [id number] Name: Uma Ndiaye Position: [facility] Outreach Member Role: Lifetime Consulting Physician Name: Gracie Casiano Position: [facility] Outreach Member Role: Lifetime Consulting Physician Name: Christy Tillman NP Position: [facility] Associate Professional Member Role: Lifetime Consulting Provider Address: Address: [address] [facility] [address] [facility] [place] [address]- [place] Name: Kirk Morse DO Position: [facility] Renal MD Member Role: Lifetime Consulting Physician Address: Address: [address] [facility] [place] [address]- [place] Name: Kaelyn Gutiérrez Position: [facility] TA Member Role: Lifetime Consulting Physician Name: Uma Valdovinos Position: [facility] Outreach Member Role: Lifetime Consulting Physician Name: Janelle Arora RN Position: [facility] RN Member Role: Primary Care Nurse Name: Prasanna Belle III, RN Position: [facility] RN Member Role: Primary Care Nurse Name: Suellen Lazcano RN Position: [facility] ED RN W/OE and Tasks Member Role: Primary Care Nurse Name: Rubia Pardo LPN Position: [facility] RN Member Role: Primary Care Nurse Name: Florencio Ferreiar MD Position: [facility] Renal MD Member Role: Lifetime Consulting Physician Address: Address: [address] [facility] [place] [address]- [place] Name: Priscila López RN Position: [facility] RN Member Role: Primary Care Nurse Name: Silke Pal MD Position: [facility] Primary Care Physician Member Role: PCP Address: Address: [address] [place] [address] Adult [place] [address]- [place] Name: Bonnie Ann RN Position: [facility] RN Member Role: Primary Care Nurse Name: Felipa Burr RN Position: [facility] RN Member Role: Primary Care Nurse Name: Jennifer Alex RN Position: [facility] RN Member Role: Primary Care Nurse Name: Saskia Fontana RN Position: [facility] RN Member Role: Primary Care Nurse Care Team Related Persons Name: VAL HEARN Address: [address] [place] [address] Name: ABIMAEL HEARN Name: YUSUF HEARN Address: [address] [place] [address]
--- OUTSIDE RECORDS SUMMARY | 2023-03-10 08:02 | XMS_ITS | Continuity of Care Document ---
Author Name Unknown Organization [facility] Address [address] [place] [address]- Care Team Providers Care Business Technology Analyst Name Role Phone Silke Pal MD Primary Care Physician Encounter [facility] Date(s): 08/06/22 - 12/04/22 [facility] [address] [place] [address]- Attending Physician: Raissa Dubose MD Admitting Physician: [...] tetanus/diphtheria/pertussis, acel(Tdap) 09/13/12 Given 1Result Comment: [05/31/2017] [id number] 2Admin Note: 1-13 [facility] [place] 3Result Comment: [12/31/2014 Uncharted] PUT IN TWICE [...] tablet, 10 Refills, Maintenance, 09/20/22 8:15:00 EST, [facility], 162.5, cm, 06/28/22 11:05:00 EST, [...] (CKD) stage G3b/A3 Confirmed Active CAD in [place] artery Confirmed Active Depression, major Confirmed Active [...] Team Personnel Name: Stephanie Maher RN Position: [facility] Outreach Member Role: Primary Care Nurse Name: Quan Virgen RN Position: [facility] RN Member Role: Primary Care Nurse Name: Rachel Sotelo Position: [facility] RN Member Role: Primary Care Nurse Name: Susana Chaney LPN Position: [facility] RN Member Role: Primary Care Nurse Name: Betty Cabrera NP Position: [facility] Associate Professional Member Role: Primary Care Nurse Address: Address: [address] [place] [id number] Name: Uma Ndiaye Position: [facility] Outreach Member Role: Lifetime Consulting Physician Name: Gracie Casiano Position: [facility] Outreach Member Role: Lifetime Consulting Physician Name: Christy Tillman NP Position: [facility] Associate Professional Member Role: Lifetime Consulting Provider Address: Address: [address] [facility] [address] [facility] [place] [address]- [place] Name: Lito GEORGE Kirk Wilver Position: [facility] Renal MD Member Role: Lifetime Consulting Physician Address: Address: [address] [facility] [address] [facility] [place] [address]- [place] Name: Kaelyn Gutiérrez Position: [facility] TA Member Role: Lifetime Consulting Physician Name: Uma Valdovinos Position: [facility] Outreach Member Role: Lifetime Consulting Physician Name: Janelle Arora RN Position: [facility] RN Member Role: Primary Care Nurse Name: Prasanna Belle III, RN Position: [facility] RN Member Role: Primary Care Nurse Name: Suellen Lazcano RN Position: [facility] ED RN W/OE and Tasks Member Role: Primary Care Nurse Name: Rubia Pardo LPN Position: [facility] RN Member Role: Primary Care Nurse Name: Florencio Ferreira MD Position: [facility] Renal MD Member Role: Lifetime Consulting Physician Address: Address: [address] [facility] [address] [facility] [place] [address]- [place] Name: Priscila López RN Position: [facility] RN Member Role: Primary Care Nurse Name: Silke Pal MD Position: [facility] Primary Care Physician Member Role: PCP Address: Address: [address] [place] [address] [facility] [place] [address]- [place] Name: Bonnie Ann RN Position: [facility] RN Member Role: Primary Care Nurse Name: Felipa Burr RN Position: [facility] RN Member Role: Primary Care Nurse Name: Jennifer Alex RN Position: [facility] RN Member Role: Primary Care Nurse Name: Saskia Fontana RN Position: S RN Member Role: Primary Care Nurse Name: Beatris Gaytan RN Position: [facility] RN Member Role: Primary Care Nurse Care Team Related Persons Name: VAL HEARN Address: home [address] [place] [address] Name: ABIMAEL HEARN Name: YUSUF HEARN Address: home [address] [place] [address]
--- OUTSIDE RECORDS SUMMARY | 2023-03-10 08:02 | XMS_ITS | Continuity of Care Document ---
Author Name Unknown Organization [facility] Address [address] [place] [address]- Care Team Providers Care Die Drawing Checker Name Role Phone Demarco GORMAN, [facility] Primary [facility] Physician [facility] Date(s): 11/07/22 - 12/07/22 [facility] [address] [place], [place] [address] Allergies, Adverse Reactions, Alerts Substance [...] tetanus/diphtheria/pertussis, acel(Tdap) 09/13/12 Given 1Result Comment: [05/31/2017] [id number] 2Admin Note: 1-13 [facility] [place] [...] tablet, 10 Refills, Maintenance, 09/20/22 8:15:00 EST, [facility], 162.5, cm, 06/28/22 11:05:00 [...] (CKD) stage G3b/A3 Confirmed Active CAD in [place] artery Confirmed Active Depression, major Confirmed Active [...] Team Personnel Name: Stephanie Maher RN Position: [facility] Outreach Member Role: Primary Care Nurse Name: Quan Virgen RN Position: [facility] RN Member Role: Primary Care Nurse Name: Rachel Sotelo Position: [facility] RN Member Role: Primary Care Nurse Name: Susana Chaney LPN Position: [facility] RN Member Role: Primary Care Nurse Name: Betty Cabrera NP Position: [facility] Associate Professional Member Role: Primary Care Nurse Address: Address: [address] [place] [id number] Name: Uma Ndiaye Position: [facility] Outreach Member Role: Lifetime Consulting Physician Name: Gracie Casiano Position: [facility] Outreach Member Role: Lifetime Consulting Physician Name: Christy Tillman NP Position: [facility] Associate Professional Member Role: Lifetime Consulting Provider Address: Address: [address] [facility] [address] [facility] [place] [address]- [place] Name: Kirk Morse DO Position: [facility] Renal MD Member Role: Lifetime Consulting Physician Address: Address: [address] [facility] [place] [address]- [place] Name: Kaelyn Gutiérrez Position: [facility] TA Member Role: Lifetime Consulting Physician Name: Uma Valdovinos Position: [facility] Outreach Member Role: Lifetime Consulting Physician Name: Janelle Arora RN Position: [facility] RN Member Role: Primary Care Nurse Name: Prasanna Belle III, RN Position: [facility] RN Member Role: Primary Care Nurse Name: Suellen Lazcano RN Position: [facility] ED RN W/OE and Tasks Member Role: Primary Care Nurse Name: Rubia Pardo LPN Position: [facility] RN Member Role: Primary Care Nurse Name: Florencio Ferreira MD Position: [facility] Renal MD Member Role: Lifetime Consulting Physician Address: Address: [address] [facility] [facility] [address] [facility] [place] [address]- [place] Name: Priscila López RN Position: [facility] RN Member Role: Primary Care Nurse Name: Silke Pal MD Position: [facility] Primary Care Physician Member Role: PCP Address: Address: [address] [place] [address] [facility] [place] [address]- [place] Name: Bonnie Ann RN Position: [facility] RN Member Role: Primary Care Nurse Name: Felipa Burr RN Position: [facility] RN Member Role: Primary Care Nurse Name: Jennifer Alex RN Position: [facility] RN Member Role: Primary Care Nurse Name: Saskia Fontana RN Position: [facility] RN Member Role: Primary Care Nurse Name: Beatris Gaytan RN Position: [facility] RN Member Role: Primary Care Nurse Care Team Related Persons Name: VAL HEARN Address: home [address] [place] [address] Name: ABIMAEL HEARN Name: YUSUF HEARN Address: [address] [place] [address]
[2023-03-10 08:06] LABS: MANUAL DIFF FLAG NO
[2023-03-10 08:08] LABS: Basophils Percent Auto 0.5 % (0-2); Eosinophils Absolute Auto 0.1 X10*3/uL (0.0-0.4); Eosinophils Percent Auto 1.1 % (0-4); Hematocrit 34.6 % (37.0-47.0); Hemoglobin 11.4 g/dl (12.0-16.0); Imm Gran Abs Auto 0.03 X10*3/uL (0.00-0.03); Imm Gran Pct Auto 0.4 % (0.0-0.4); Lymphocytes Absolute Auto 1.1 X10*3/uL (1.2-4.9); Lymphocytes Percent Auto 13.6 % (20-40); Mean Corpuscular HGB Conc 32.9 g/dl (31.0-35.0); Mean Corpuscular Volume 97.2 fL (80.0-98.0); Mean Platelet Volume 9.6 fL (9.4-12.3); Monocytes Absolute Auto 0.7 X10*3/uL (0.1-1.2); Neutrophils Percent Auto 75.4 % (45-73); Platelet Count 159 X10*3/uL (160-400); Red Blood Count 3.56 X10*6/uL (4.20-5.50); Red Cell Distribution Width 14.3 % (11.0-16.0); White Blood Count 7.9 X10*3/uL (4.8-10.8)
--- NOTE | 2023-03-10 08:24 | PC.NURSE ---
pt a&o x4, pleasant, calm, and cooperative. #18G placed in RAC, labs drawn, EKG obtained. pt resting quietly on stretcher in no apparent distress. wctm
[2023-03-10 08:31] LABS: Alanine Aminotransferase 7 U/L (0-31); Albumin Level 3.6 g/dL (3.5-5.0); Alkaline Phosphatase 130 U/L (39-117); Anion Gap 19 (12-20); Aspartate Amino Transferase 13 U/L (5-31); Bilirubin Total 0.4 mg/dL (0.0-1.0); Blood Urea Nitrogen 50 mg/dL (9-16); Calcium 8.5 mg/dL (8.4-10.2); Carbon Dioxide 19 mmol/L (22-29); Chloride 98 mmol/L (96-108); Creatinine Clr Calc Pharmacy 9.1; Estimated Glomerular Filt Rate 9; Glucose Random 94 mg/dL (60-115); Potassium 4.7 mmol/L (3.3-5.1); Sodium 131 mmol/L (135-145); Total Protein 7.5 g/dL (6.5-8.0); Troponin-I High Sensitivity 12.1 ng/L (<3.5-17.0)
[2023-03-10 08:32] LABS: COVID-19 Test Negative (Negative); IDNOW Serial# BCCEAD1C
[2023-03-10 09:18] LABS: B Type Natriuretic Peptide 393 pg/mL (<100)
[2023-03-10 11:09] VITALS: BP 147/68; PULSE 69; RESP 16; O2SAT 96
[2023-03-10 15:11] VITALS: BP 125/60; PULSE 68; RESP 18; TEMP 36.9; O2SAT 94
--- NOTE | 2023-03-10 17:37 | PHA.MEDREC ---
Pharmacy Consult ? Medication Reconciliation Pharmacy has completed the medication reconciliation. Patient confirmed all medications. Reports she was just recently restart hydralazine, and believes that is what is causing her issues. Reports suppose to be taking sevelamr but has not picked up the prescription. Meche Aguilar, PharmD
--- NOTE | 2023-03-10 18:25 | P.HPHOSP_ITS ---
History of Present Illness Date of Service: 03/10/23 Chief Complaint: extreme fatigue 73-year-old female history of carotid stenosis CKD on hemodyalisis (M,W,F last session today but only recieved 35 minutes) , heart failure, arthrosclerotic cardiovascular disease, paroxysmal atrial fibrillation on anticoagulants, NSTEMI, DVT again anticoagulated presenting to the emergency department with complaints of weakness, shortness breath, fatigue, malaise, myalgias, headache ( diffuse, no visual changes or trauma) , since 399. ? Patient denies associated chest pain, fevers, chills, nausea, vomiting, abdominal pain, vision changes, dizziness and weakness.? No recent sick contacts. Patient reports that she start ed hydralazine 100 mg TID recently.. symptoms have continued to worsen since she started this medicine. ER work up demonstrated a a peripheral lung mass in the backdrop of diffuse interstitial lung disease; patient has no complaints of shortness Review of Systems Review of Systems: Denies chest pain Denies shortness of breath Denies nausea vomiting diarrhea Denies fever chills [facility] Medical History Anemia Aortic stenosis Asthmatic bronchitis Atherosclerotic cardiovascular disease CAD (coronary artery disease) CKD (chronic kidney disease), stage IV Depression DVT (deep venous thrombosis) End stage chronic kidney disease GERD (gastroesophageal reflux disease) History of ectopic Hypertension PAF (paroxysmal atrial fibrillation) Family History Father No problems noted. Mother No problems noted. Surgical History H/O colonoscopy History of carpal tunnel release of both wrists History of left knee replacement History of rectal surgery Status post total replacement of right shoulder Social History Household Members: Children Housing: House Do you presently have visiting nurse or other home services: Yes Alcohol intake: unknown Patient Tobacco Use Status: Never used Tobacco Cigarettes Per Day: 1 Smoked in Last 30 Days: Yes Use of substances other than those prescribed or required for medical reasons: No Advance Directives: Yes Advance Directives Information Provided: Yes Advance Directives on File: No Advance Directives Date on File: 10/31/22 service: No Current occupational status: retired Current occupation: young,right handed Meds Allergies Allergy/AdvReac Type Severity Reaction Status Date / Time atenolol [ATENOLOL] Allergy Unknown DIFF Verified 03/07/23 08:48 BREATHING, heart races. amphetamine [Adderall] AdvReac Unknown shortness Verified 03/07/23 08:48 of breath dextroamphetamine [Adderall] AdvReac Unknown shortness Verified 03/07/23 08:48 of breath Active Medications: Current Medications Acetaminophen (Acetaminophen 325 Mg Tablet) 650 mg PO Q6H PRN PRN Reason: Pain, Mild (Pain Scale 1-3) Amlodipine Besylate (Amlodipine Besylate 10 Mg Tablet) 10 mg PO DAILY@1400 [facility]; Protocol Apixaban (Apixaban 2.5 Mg Tablet) 2.5 mg PO BID [facility] Aspirin (Aspirin 81 Mg Tab.Chew) 81 mg PO DAILY [facility] Carvedilol (Carvedilol 12.5 Mg Tablet) 12.5 mg PO BID [facility]; Protocol Clonidine (Clonidine 0.2 Mg Patch.Tdwk) mg TRANSDERMA SA [facility]; Protocol Furosemide (Furosemide 40 Mg Tablet) 40 mg PO TUTHSA [facility]; Protocol Gabapentin (Gabapentin 300 Mg Capsule) 300 mg PO DAILY [facility] Lisinopril (Lisinopril 20 Mg Tablet) 20 mg PO BID [facility]; Protocol Nitroglycerin (Nitroglycerin 0.4 Mg Patch.Td24) 0.4 mg TRANSDERMA DAILY [facility]; Protocol Ondansetron HCl (Ondansetron Hcl 4 Mg/2 Ml Vial) 4 mg IVPUSH Q8H PRN PRN Reason: Nausea and Vomiting Oxycodone HCl (Oxycodone Hcl Immed Release 5 Mg Tablet) 5 mg PO Q6H PRN PRN Reason: severe pain Pharmacy Consult (Consult Rx Perform Med Rec) 1 each MISCELLANE ONCE PRN PRN Reason: Consult order Sevelamer Carbonate (Sevelamer Carbonate Tablet 800 Mg Tablet) 1,600 mg PO TID [facility] Sodium Chloride (0.9 % Sodium Chloride Flush 3 Ml Syringe) 3 ml IVFLUSH QSHIFT [facility] Home Medications Medication Instructions Recorded Confirmed Last Taken Type amlodipine 10 mg tablet 10 mg PO DAILY@1400 08/10/20 03/10/23 03/09/23 History acetaminophen 500 mg tablet 500 mg PO Q6H PRN Pain 10/30/22 03/10/23 03/10/23 History clonidine 0.2 mg/24 hr weekly 1 patch topical SA 10/30/22 03/10/23 03/10/23 History transdermal patch sevelamer HCl 800 mg tablet 1,600 mg PO TID 10/30/22 03/10/23 03/10/23 History (Renagel) trazodone 100 mg tablet 1 tab PO BEDTIME 10/30/22 03/10/23 03/09/23 History gabapentin 300 mg capsule 300 mg PO DAILY 11/09/22 03/10/23 03/10/23 History oxycodone 5 mg tablet 5 mg PO Q6H PRN severe pain 11/09/22 03/10/23 Unknown History apixaban 2.5 mg tablet (Eliquis) 2.5 mg PO BID 03/07/23 03/10/23 03/10/23 History furosemide 40 mg tablet (Lasix) 40 mg PO TUTHSA 03/07/23 03/10/23 03/09/23 History lisinopril 20 mg tablet 20 mg PO BID 03/07/23 03/10/23 03/10/23 History aspirin 81 mg chewable tablet 81 mg PO DAILY 03/10/23 03/10/23 03/10/23 History Physical Exam Vital Signs and Narrative: Vital Signs: Last Vital Signs Temp 98.4 F 03/10/23 15:11 Pulse 68 03/10/23 15:11 Resp 18 03/10/23 15:11 BP 125/60 03/10/23 15:11 Pulse Ox 94 03/10/23 15:11 O2 Del Method Room Air 03/10/23 15:11 BMI result Body Mass Index 21.0 Const: Other: awake alert fatigued looking Resp: Other: scattered expiratory wheezes at bases with end inspiratory crackles noted Cardio: Other: no S4; positive S1-S2; no S3 murmurs rubs or gallops Neuro: Other: cranial nerves 2-12 grossly intact as tested. Motor is 5/5 all extremities. Sensation is intact Extrem: Other: no edema bilaterally Results Labs 03/10/23 08:00 03/10/23 08:00 Labs: Laboratory Results - last 24 hr 03/10/23 03/10/23 03/10/23 07:42 08:00 08:00 MCV 97.2 MCH 32.0 MCHC 32.9 RDW 14.3 Plt Count 159 L MPV 9.6 Immature Gran % (Auto) 0.4 Neut % (Auto) 75.4 H Lymph % (Auto) 13.6 L [place] % (Auto) 9.0 Eos % (Auto) 1.1 Baso % (Auto) 0.5 Lymph # (Auto) 1.1 L [place] # (Auto) 0.7 Eos # (Auto) 0.1 Baso # (Auto) 0.0 Abs Immat Gran (auto) 0.03 Absolute Neuts (auto) 6.0 Absolute Nucleated RBC 0.000 Nucleated RBC % (auto) 0.0 Anion Gap 19 Estim Creat Clear Calc 9.1 Estimated GFR 9 POC Glucose 96 Random Glucose 94 Calcium 8.5 D Magnesium 2.0 Total Bilirubin 0.4 AST 13 ALT 7 Alkaline Phosphatase 130 H B-Natriuretic Peptide Total Protein 7.5 Albumin 3.6 COVID-19 ([place]) COVID-19 Clin Com 03/10/23 03/10/23 08:00 08:01 MCV MCH MCHC RDW Plt Count MPV Immature Gran % (Auto) Neut % (Auto) Lymph % (Auto) [place] % (Auto) Eos % (Auto) Baso % (Auto) Lymph # (Auto) [place] # (Auto) Eos # (Auto) Baso # (Auto) Abs Immat Gran (auto) Absolute Neuts (auto) Absolute Nucleated RBC Nucleated RBC % (auto) Anion Gap Estim Creat Clear Calc Estimated GFR POC Glucose Random Glucose Calcium Magnesium Total Bilirubin AST ALT Alkaline Phosphatase B-Natriuretic Peptide 393 H Total Protein Albumin COVID-19 ([place]) Negative COVID-19 Clin Com See Note Imaging Radiologist's Impressions: Impressions Head CT 03/10/23 08:22 IMPRESSION: No acute intracranial pathology. Chest X-Ray 03/10/23 08:25 IMPRESSION: Focal opacity overlying the left portion of the cardiac silhouette is nonspecific, but could represent atelectasis or an infiltrate. A repeat chest radiographic study with PA and lateral views is recommended. Chest CT 03/10/23 15:40 IMPRESSION: Left lower lobe mass measures 2.9 x 4.3 cm concerning for neoplasm. Consultation with thoracic surgery is advised. PET/CT may be considered. Several bilateral smaller pulmonary nodules may represent intrapulmonary metastases. Interstitial lung disease. Findings were reviewed and discussed with PAIGE Birmingham at 4:13 PM on 03/10/2023. Assessment and Plan (1) Physical deconditioning: Status: Acute (2) Hypertension: Status: Acute (3) End stage chronic kidney disease: Status: Acute (4) PAF (paroxysmal atrial fibrillation): Status: Acute Plan 73-year-old female with known history of interstitial lung disease hypertension end-stage renal disease on hemodialysis presents to the emergency room with extreme fatigue which she describes beginning after hydralazine was increased. Workup was unremarkable. Chest CT did demonstrate diffuse interstitial changes and a peripheral lung mass which patient is aware of and is working up as an outpatient 1.Physical deconditioning/extreme fatigue - continue all meds however hold hydralazine - follow BP/clinical response in a.m. 2.Hypertension - acceptable control -Follow response to absence of hydralazine - adjust therapies and indicated 3. ESRD on HD - consult Renal as patient did not complete dialysis session this a.m. -follow renals/divalents 4.Paroxysmal atrial fibrillation - EKG sinus rhythm with frequent PACs - continue Eliquis as per outpatient dosing Eliquis DNR DNI Time Spent With Patient Time: Total time managing care of this patient today ____ minutes. Quality Stroke Does the patient have a stroke diagnosis?: No VTE Prior VTE?: No VTE Risk Level:: Medical - moderate - high VTE Device Contraindication: Treatment Not Indicated VTE Drug Contraindication: N/A - Med Ordered
[2023-03-10] MEDS: oxyCODONE HCl Immed Release 5 MG TABLET PO (19:08)
[2023-03-10 20:00] VITALS: BP 166/83; PULSE 69; RESP 22; TEMP 36.6; O2SAT 97
[2023-03-10 20:17] VITALS: BMI 21.2
[2023-03-10] MEDS: Apixaban 2.5 MG TABLET PO (20:33)
[2023-03-10] MEDS: carvediloL 12.5 MG TABLET PO (20:33)
[2023-03-10] MEDS: 0.9 % Sodium Chloride Flush 3 ML SYRINGE IVFLUSH (20:33)
[2023-03-10] MEDS: lisinopriL 20 MG TABLET PO (20:33)
[2023-03-10] MEDS: Sevelamer Carbonate Tablet 800 MG TABLET 1600 MG PO (20:33)
[2023-03-10 23:11] VITALS: BP 143/68; PULSE 67; RESP 16; TEMP 36.3; O2SAT 96
[2023-03-11] VITALS (7 sets, daily range): BP systolic 118–180; BP diastolic 56–85; PULSE 62–99; RESP 16–20; TEMP 36.4–37; O2SAT 94–100
[2023-03-11] MEDS: oxyCODONE HCl Immed Release 5 MG TABLET PO ×2 (02:47→19:43)
[2023-03-11 06:55] LABS: MANUAL DIFF FLAG NO
[2023-03-11 06:58] LABS: Basophils Percent Auto 0.7 % (0-2); Eosinophils Absolute Auto 0.1 X10*3/uL (0.0-0.4); Hematocrit 31.6 % (37.0-47.0); Hemoglobin 10.3 g/dl (12.0-16.0); Imm Gran Abs Auto 0.03 X10*3/uL (0.00-0.03); Imm Gran Pct Auto 0.5 % (0.0-0.4); Lymphocytes Absolute Auto 1.6 X10*3/uL (1.2-4.9); Lymphocytes Percent Auto 26.2 % (20-40); Mean Corpuscular HGB Conc 32.6 g/dl (31.0-35.0); Mean Corpuscular Volume 98.1 fL (80.0-98.0); Mean Platelet Volume 9.7 fL (9.4-12.3); Monocytes Absolute Auto 0.7 X10*3/uL (0.1-1.2); Monocytes Percent Auto 11.1 % (2-11); Neutrophils Absolute Auto 3.6 x10*3/uL (2.0-8.3); Neutrophils Percent Auto 59.5 % (45-73); Platelet Count 145 X10*3/uL (160-400); Red Blood Count 3.22 X10*6/uL (4.20-5.50); Red Cell Distribution Width 14.6 % (11.0-16.0); White Blood Count 6.1 X10*3/uL (4.8-10.8)
[2023-03-11 07:28] LABS: Alanine Aminotransferase 5 U/L (0-31); Albumin Level 2.9 g/dL (3.5-5.0); Alkaline Phosphatase 90 U/L (39-117); Anion Gap 19 (12-20); Aspartate Amino Transferase 10 U/L (5-31); Bilirubin Total 0.4 mg/dL (0.0-1.0); Blood Urea Nitrogen 64 mg/dL (9-16); Calcium 8.2 mg/dL (8.4-10.2); Carbon Dioxide 16 mmol/L (22-29); Chloride 100 mmol/L (96-108); Creatinine Clr Calc Pharmacy 6.8; Estimated Glomerular Filt Rate 7; Glucose Fasting 88 mg/dL (60-99); Potassium 5.4 mmol/L (3.3-5.1); Sodium 130 mmol/L (135-145); Total Protein 6.2 g/dL (6.5-8.0)
--- NOTE | 2023-03-11 08:59 | MHC.CM.PN ---
Interview conducted w/daughter Jo Ann. Pt lives in 's home (previously moved out and then moved back in). No prior services, Pt used to live w/daughter who was caring for/helping Pt w/needs, but Pt did not follow rules of daughter's home (where there are children) and moved back in to 's house (Pt was smoking inside the home, etc). Pt has OP HD at [facility] in [place]. She does not drive; she has [employer] van transport her provided by [facility]. She has been to SNF in the past: [facility] and also at [facility] in [place]. Pt and family interested in potential SNF placement at time of D/C should PT find she requires rehab. They are requesting [facility]. CM to follow.
[2023-03-11] MEDS: Gabapentin 300 MG CAPSULE PO (09:12)
[2023-03-11] MEDS: Sevelamer Carbonate Tablet 800 MG TABLET 1600 MG PO ×3 (09:12→19:43)
[2023-03-11] MEDS: Aspirin 81 MG TAB.CHEW PO (09:13)
[2023-03-11] MEDS: Furosemide 40 MG TABLET PO (09:13)
[2023-03-11] MEDS: Apixaban 2.5 MG TABLET PO ×2 (09:14→19:43)
[2023-03-11] MEDS: lisinopriL 20 MG TABLET PO ×2 (09:14→19:42)
[2023-03-11] MEDS: carvediloL 12.5 MG TABLET PO ×2 (09:14→19:43)
--- NOTE | 2023-03-11 09:16 | MHC.CM.PN ---
Referral sent to [facility] per family request for Center follow for potential placement at D/C. to follow.
[2023-03-11] MEDS: Nitroglycerin 0.4 MG PATCH.TD24 TRANSDERMA (09:17)
[2023-03-11] MEDS: cloNIDine 0.2 MG PATCH.TDWK TRANSDERMA (09:18)
[2023-03-11] MEDS: 0.9 % Sodium Chloride Flush 3 ML SYRINGE IVFLUSH ×3 (09:19→19:45)
--- NOTE | 2023-03-11 10:43 | MHC.CM.PN ---
LATE NOTE FOR 08:50AM: OBS Notice 03/11/23 08:50am. CM to follow.
[2023-03-11] MEDS: amLODIPine Besylate 10 MG TABLET PO (15:03)
--- NOTE | 2023-03-11 15:25 | HO.PM.IMPN ---
Subjective Subjective Date of Service: 03/11/23 Interval History: Notes some improvement off of hydralazine. Still fatigued Review of Systems Denies chest pain Denies shortness of breath Denies nausea vomiting diarrhea Denies fever chills Physical Exam Vital Signs: Vital Signs: Last Vital Signs Temp 98.0 F 03/11/23 12:00 Pulse 62 03/11/23 12:00 Resp 20 03/11/23 12:00 BP 143/73 H 03/11/23 12:00 Pulse Ox 96 03/11/23 12:00 O2 Del Method Room Air 03/11/23 12:00 BMI result Body Mass Index 21.2 Const: Other: awake alert fatigued looking Resp: Other: scattered expiratory wheezes at bases with end inspiratory crackles noted Cardio: Other: no S4; positive S1-S2; no S3 murmurs rubs or gallops Neuro: Other: cranial nerves 2-12 grossly intact as tested. Motor is 5/5 all extremities. Sensation is intact Extrem: Other: no edema bilaterally Objective Data Active Medications Acetaminophen (Acetaminophen 325 Mg Tablet) 650 mg PO Q6H PRN PRN Reason: Pain, Mild (Pain Scale 1-3) Amlodipine Besylate (Amlodipine Besylate 10 Mg Tablet) 10 mg PO DAILY@1400 [facility]; Protocol Last Admin: 03/11/23 15:03 Dose: 10 mg Documented By: JUNIOR Apixaban (Apixaban 2.5 Mg Tablet) 2.5 mg PO BID [facility] Last Admin: 03/11/23 09:14 Dose: 2.5 mg Documented By: JUNIOR Aspirin (Aspirin 81 Mg Tab.Chew) 81 mg PO DAILY [facility] Last Admin: 03/11/23 09:13 Dose: 81 mg Documented By: JUNIOR Carvedilol (Carvedilol 12.5 Mg Tablet) 12.5 mg PO BID [facility]; Protocol Last Admin: 03/11/23 09:14 Dose: 12.5 mg Documented By: JUNIOR Clonidine (Clonidine 0.2 Mg Patch.Tdwk) 0.2 mg TRANSDERMA Sa@0900 [facility]; Protocol Last Admin: 03/11/23 09:18 Dose: 0.2 mg Documented By: JUNIOR Furosemide (Furosemide 40 Mg Tablet) 40 mg PO TuThSa@09 [facility]; Protocol Last Admin: 03/11/23 09:13 Dose: 40 mg Documented By: JUNIOR Gabapentin (Gabapentin 300 Mg Capsule) 300 mg PO DAILY [facility] Last Admin: 03/11/23 09:12 Dose: 300 mg Documented By: JUNIOR Lisinopril (Lisinopril 20 Mg Tablet) 20 mg PO BID [facility]; Protocol Last Admin: 03/11/23 09:14 Dose: 20 mg Documented By: JUNIOR Nitroglycerin (Nitroglycerin 0.4 Mg Patch.Td24) 0.4 mg TRANSDERMA DAILY [facility]; Protocol Last Admin: 03/11/23 09:17 Dose: 0.4 mg Documented By: JUNIOR Ondansetron HCl (Ondansetron Hcl 4 Mg/2 Ml Vial) 4 mg IVPUSH Q8H PRN PRN Reason: Nausea and Vomiting Oxycodone HCl (Oxycodone Hcl Immed Release 5 Mg Tablet) 5 mg PO Q6H PRN PRN Reason: severe pain Last Admin: 03/11/23 02:47 Dose: 5 mg Documented By: KAETRINE Pharmacy Consult (Consult Rx Perform Med Rec) 1 each MISCELLANE ONCE PRN PRN Reason: Consult order Sevelamer Carbonate (Sevelamer Carbonate Tablet 800 Mg Tablet) 1,600 mg PO TID [facility] Last Admin: 03/11/23 15:03 Dose: 1,600 mg Documented By: JUNIOR Sodium Chloride (0.9 % Sodium Chloride Flush 3 Ml Syringe) [facility] Last Admin: 03/11/23 15:05 Dose: 3 ml Documented By: JUNIOR Labs 03/11/23 06:41 03/11/23 06:41 Labs: Laboratory Results - last 24 hr 03/11/23 03/11/23 06:41 06:41 MCV 98.1 H MCH 32.0 MCHC 32.6 RDW 14.6 Plt Count 145 L MPV 9.7 Immature Gran % (Auto) 0.5 H Neut % (Auto) 59.5 Lymph % (Auto) 26.2 [place] % (Auto) 11.1 H Eos % (Auto) 2.0 Baso % (Auto) 0.7 Lymph # (Auto) 1.6 [place] # (Auto) 0.7 Eos # (Auto) 0.1 Baso # (Auto) 0.0 Abs Immat Gran (auto) 0.03 Absolute Neuts (auto) 3.6 Absolute Nucleated RBC 0.000 Nucleated RBC % (auto) 0.0 Anion Gap 19 Estim Creat Clear Calc 6.8 Estimated GFR 7 Fasting Glucose 88 Calcium 8.2 L Total Bilirubin 0.4 AST 10 ALT 5 Alkaline Phosphatase 90 Total Protein 6.2 L Albumin 2.9 L Assessment and Plan (1) Physical deconditioning: Status: Acute (2) PAF (paroxysmal atrial fibrillation): Status: Acute (3) Hypertension: Status: Acute Plan 73-year-old female with known history of interstitial lung disease hypertension end-stage renal disease on hemodialysis presents to the emergency room with extreme fatigue which she describes beginning after hydralazine was increased. Workup was unremarkable. Chest CT did demonstrate diffuse interstitial changes and a peripheral lung mass which patient is aware of and is working up as an outpatient 1.Physical deconditioning/extreme fatigue - some improvement with med adjustment 2.Hypertension - acceptable control off hydralazine - adjust therapies and indicated 3. ESRD on HD - await renal input -follow renals/divalents 4.Paroxysmal atrial fibrillation - EKG sinus rhythm with frequent PACs - continue Eliquis as per outpatient dosing Eliquis DNR DNI Time Spent With Patient Time: Total time managing care of this patient today ____ minutes. Quality Stroke Does the patient have a stroke diagnosis?: No VTE Prior VTE?: No VTE Risk Level:: Medical - moderate - high VTE Device Contraindication: Treatment Not Indicated VTE Drug Contraindication: N/A - Med Ordered
[2023-03-11] MEDS: traZODone HCL 50 MG TABLET PO (23:42)
[2023-03-12 03:35] VITALS: BP 168/77; PULSE 67; RESP 18; TEMP 36.6; O2SAT 96
[2023-03-12 06:58] LABS: MANUAL DIFF FLAG NO
[2023-03-12 07:02] LABS: Basophils Percent Auto 0.6 % (0-2); Eosinophils Absolute Auto 0.1 X10*3/uL (0.0-0.4); Eosinophils Percent Auto 1.9 % (0-4); Hematocrit 32.9 % (37.0-47.0); Hemoglobin 10.6 g/dl (12.0-16.0); Imm Gran Abs Auto 0.03 X10*3/uL (0.00-0.03); Imm Gran Pct Auto 0.4 % (0.0-0.4); Lymphocytes Absolute Auto 1.6 X10*3/uL (1.2-4.9); Lymphocytes Percent Auto 23.6 % (20-40); Mean Corpuscular HGB Conc 32.2 g/dl (31.0-35.0); Mean Corpuscular Hemoglobin 31.5 pg (27.0-33.0); Mean Corpuscular Volume 97.9 fL (80.0-98.0); Mean Platelet Volume 9.8 fL (9.4-12.3); Monocytes Absolute Auto 0.9 X10*3/uL (0.1-1.2); Monocytes Percent Auto 12.5 % (2-11); Neutrophils Absolute Auto 4.2 x10*3/uL (2.0-8.3); Platelet Count 169 X10*3/uL (160-400); Red Blood Count 3.36 X10*6/uL (4.20-5.50); Red Cell Distribution Width 14.4 % (11.0-16.0); White Blood Count 6.9 X10*3/uL (4.8-10.8)
[2023-03-12 07:23] VITALS: BP 173/82; PULSE 69; RESP 20; TEMP 36.6; O2SAT 95
[2023-03-12 07:29] LABS: Alanine Aminotransferase 8 U/L (0-31); Albumin Level 3.1 g/dL (3.5-5.0); Alkaline Phosphatase 98 U/L (39-117); Anion Gap 19 (12-20); Aspartate Amino Transferase 11 U/L (5-31); Bilirubin Total 0.5 mg/dL (0.0-1.0); Blood Urea Nitrogen 36 mg/dL (9-16); Calcium 8.9 mg/dL (8.4-10.2); Carbon Dioxide 21 mmol/L (22-29); Chloride 96 mmol/L (96-108); Creatinine Clr Calc Pharmacy 9.1; Estimated Glomerular Filt Rate 9; Glucose Fasting 82 mg/dL (60-99); Potassium 4.6 mmol/L (3.3-5.1); Sodium 131 mmol/L (135-145); Total Protein 6.7 g/dL (6.5-8.0)
[2023-03-12 11:13] VITALS: BP 132/72; PULSE 70; RESP 20; TEMP 36.6; O2SAT 96
[2023-03-12] MEDS: Gabapentin 300 MG CAPSULE PO (11:16)
[2023-03-12] MEDS: Sevelamer Carbonate Tablet 800 MG TABLET 1600 MG PO ×3 (11:16→22:44)
[2023-03-12] MEDS: lisinopriL 20 MG TABLET PO ×2 (11:16→22:45)
[2023-03-12] MEDS: Apixaban 2.5 MG TABLET PO ×2 (11:16→22:44)
[2023-03-12] MEDS: Aspirin 81 MG TAB.CHEW PO (11:16)
[2023-03-12] MEDS: carvediloL 12.5 MG TABLET PO ×2 (11:16→22:44)
[2023-03-12] MEDS: Nitroglycerin 0.4 MG PATCH.TD24 TRANSDERMA (11:17)
[2023-03-12] MEDS: 0.9 % Sodium Chloride Flush 3 ML SYRINGE IVFLUSH ×3 (11:18→22:45)
[2023-03-12] MEDS: oxyCODONE HCl Immed Release 5 MG TABLET PO (11:27)
--- NOTE | 2023-03-12 12:57 | PM.PNNEP ---
Subjective Subjective Date of Service: 03/12/23 Interval history: Seen and examkned, events noted Physical Exam Vital Signs: Vital Signs: Last Vital Signs Temp 97.8 F 03/12/23 11:13 Pulse 70 03/12/23 11:13 Resp 20 03/12/23 11:13 BP 132/72 03/12/23 11:13 Pulse Ox 96 03/12/23 11:13 O2 Del Method Room Air 03/12/23 11:13 BMI result Body Mass Index 21.2 Const: Other: awake alert fatigued looking Resp: Other: scattered expiratory wheezes at bases with end inspiratory crackles noted Cardio: Other: no S4; positive S1-S2; no S3 murmurs rubs or gallops Neuro: Other: cranial nerves 2-12 grossly intact as tested. Motor is 5/5 all extremities. Sensation is intact Extrem: Other: no edema bilaterally Objective Data Labs 03/12/23 05:38 03/12/23 05:38 Labs: Laboratory Results - last 24 hr 03/12/23 03/12/23 05:38 05:38 WBC 6.9 RBC 3.36 L Hgb 10.6 L Hct 32.9 L MCV 97.9 MCH 31.5 MCHC 32.2 RDW 14.4 Plt Count 169 MPV 9.8 Immature Gran % (Auto) 0.4 Neut % (Auto) 61.0 Lymph % (Auto) 23.6 [place] % (Auto) 12.5 H Eos % (Auto) 1.9 Baso % (Auto) 0.6 Lymph # (Auto) 1.6 [place] # (Auto) 0.9 Eos # (Auto) 0.1 Baso # (Auto) 0.0 Abs Immat Gran (auto) 0.03 Absolute Neuts (auto) 4.2 Absolute Nucleated RBC 0.000 Nucleated RBC % (auto) 0.0 Sodium 131 L Potassium 4.6 Chloride 96 Carbon Dioxide 21 L Anion Gap 19 BUN 36 H Creatinine 4.61 H* Estim Creat Clear Calc 9.1 Estimated GFR 9 Fasting Glucose 82 Calcium 8.9 D Total Bilirubin 0.5 AST 11 ALT 8 Alkaline Phosphatase 98 Total Protein 6.7 Albumin 3.1 L Procedures Date of Service Date of Service: 03/12/23 Assessment & Plan Assessment and plan (1) Physical deconditioning: Status: Acute (2) PAF (paroxysmal atrial fibrillation): Status: Acute (3) Hypertension: Status: Acute Plan ESRD: mwf Labile HTN Lung Mass: w/u as outpt REC: cont HDmwf;track BPs and check OH BPs Time Spent With Patient Time: Total time managing care of this patient today ____ minutes. Progress Note: Quality Stroke Does the patient have a stroke diagnosis?: No
--- NOTE | 2023-03-12 14:17 | P.PNIM_ITS ---
Subjective Subjective Date of Service: 03/12/23 Interval History: Still feeling fatigued despite cessation of hydralazine. No acute issues Review of Systems Denies chest pain Denies shortness of breath Denies nausea vomiting diarrhea Denies fever chills Physical Exam Vital Signs: Vital Signs: Last Vital Signs Temp 97.8 F 03/12/23 11:13 Pulse 70 03/12/23 11:13 Resp 20 03/12/23 11:13 BP 132/72 03/12/23 11:13 Pulse Ox 96 03/12/23 11:13 O2 Del Method Room Air 03/12/23 11:13 BMI result Body Mass Index 21.2 Const: Other: awake alert fatigued looking Resp: Other: scattered expiratory wheezes at bases with end inspiratory crackles noted Cardio: Other: no S4; positive S1-S2; no S3 murmurs rubs or gallops Neuro: Other: cranial nerves 2-12 grossly intact as tested. Motor is 5/5 all extremities. Sensation is intact Extrem: Other: no edema bilaterally Objective Data Active Medications Acetaminophen (Acetaminophen 325 Mg Tablet) 650 mg PO Q6H PRN PRN Reason: Pain, Mild (Pain Scale 1-3) Amlodipine Besylate (Amlodipine Besylate 10 Mg Tablet) 10 mg PO DAILY@1400 D[facility]; Protocol Last Admin: 03/11/23 15:03 Dose: 10 mg Documented By: JUNIOR Apixaban (Apixaban 2.5 Mg Tablet) 2.5 mg PO BID [facility] Last Admin: 03/12/23 11:16 Dose: 2.5 mg Documented By: JUNIOR Aspirin (Aspirin 81 Mg Tab.Chew) 81 mg PO DAILY [facility] Last Admin: 03/12/23 11:16 Dose: 81 mg Documented By: JUNIOR Carvedilol (Carvedilol 12.5 Mg Tablet) 12.5 mg PO BID [facility]; Protocol Last Admin: 03/12/23 11:16 Dose: 12.5 mg Documented By: JUNIOR Clonidine (Clonidine 0.2 Mg Patch.Tdwk) 0.2 mg TRANSDERMA Sa@0900 [facility]; Protocol Last Admin: 03/11/23 09:18 Dose: 0.2 mg Documented By: JUNIOR Furosemide (Furosemide 40 Mg Tablet) 40 mg PO TuThSa@0900 [facility]; Protocol Last Admin: 03/11/23 09:13 Dose: 40 mg Documented By: JUNIOR Gabapentin (Gabapentin 300 Mg Capsule) 300 mg PO DAILY [facility] Last Admin: 03/12/23 11:16 Dose: 300 mg Documented By: JUNIOR Lisinopril (Lisinopril 20 Mg Tablet) 20 mg PO BID [facility]; Protocol Last Admin: 03/12/23 11:16 Dose: 20 mg Documented By: JUNIOR Nitroglycerin (Nitroglycerin 0.4 Mg Patch.Td24) 0.4 mg TRANSDERMA DAILY [facility]; Protocol Last Admin: 03/12/23 11:17 Dose: 0.4 mg Documented By: JUNIOR Ondansetron HCl (Ondansetron Hcl 4 Mg/2 Ml Vial) 4 mg IVPUSH Q8H PRN PRN Reason: Nausea and Vomiting Oxycodone HCl (Oxycodone Hcl Immed Release 5 Mg Tablet) 5 mg PO Q6H PRN PRN Reason: severe pain Last Admin: 03/12/23 11:27 Dose: 5 mg Documented By: JUNIOR Pharmacy Consult (Consult Rx Perform Med Rec) 1 each MISCELLANE ONCE PRN PRN Reason: Consult order Sevelamer Carbonate (Sevelamer Carbonate Tablet 800 Mg Tablet) 1,600 mg PO TID [facility] Last Admin: 03/12/23 11:16 Dose: 1,600 mg Documented By: JUNIOR Sodium Chloride (0.9 % Sodium Chloride Flush 3 Ml Syringe) 3 ml IVFLUSH [facility] Last Admin: 03/12/23 11:18 Dose: 3 ml Documented By: JUNIOR Labs 03/12/23 05:38 03/12/23 05:38 Labs: Laboratory Results - last 24 hr 03/12/23 03/12/23 05:38 05:38 MCV 97.9 MCH 31.5 MCHC 32.2 RDW 14.4 Plt Count 169 MPV 9.8 Immature Gran % (Auto) 0.4 Neut % (Auto) 61.0 Lymph % (Auto) 23.6 Coal % (Auto) 12.5 H Eos % (Auto) 1.9 Baso % (Auto) 0.6 Lymph # (Auto) 1.6 Coal # (Auto) 0.9 Eos # (Auto) 0.1 Baso # (Auto) 0.0 Abs Immat Gran (auto) 0.03 Absolute Neuts (auto) 4.2 Absolute Nucleated RBC 0.000 Nucleated RBC % (auto) 0.0 Anion Gap 19 Estim Creat Clear Calc 9.1 Estimated GFR 9 Fasting Glucose 82 Calcium 8.9 D Total Bilirubin 0.5 AST 11 ALT 8 Alkaline Phosphatase 98 Total Protein 6.7 Albumin 3.1 L Assessment and Plan (1) Physical deconditioning: Status: Acute (2) Lung mass: Status: Acute (3) Hypertension: Status: Acute Plan 73-year-old female with known history of interstitial lung disease hypertension end-stage renal disease on hemodialysis presents to the emergency room with extreme fatigue which she describes beginning after hydralazine was increased. Workup was unremarkable. Chest CT did demonstrate diffuse interstitial changes and a peripheral lung mass which patient is aware of and is working up as an outpatient 1.Physical deconditioning/extreme fatigue (in backdrop of new lung mass) - some improvement with med adjustment -outpatient workup of lung mass -likely home in a.m. 2.Hypertension - acceptable control off hydralazine - adjust therapies and indicated 3. ESRD on HD - await renal input -follow renals/divalents 4.Paroxysmal atrial fibrillation - EKG sinus rhythm with frequent PACs - continue Eliquis as per outpatient dosing Eliquis DNR DNI Time Spent With Patient Time: Total time managing care of this patient today ____ minutes. Quality Stroke Does the patient have a stroke diagnosis?: No VTE Prior VTE?: No VTE Risk Level:: Medical - moderate - high VTE Device Contraindication: Treatment Not Indicated VTE Drug Contraindication: N/A - Med Ordered
[2023-03-12 15:30] VITALS: BP 138/75; PULSE 65; RESP 18; TEMP 37.1; O2SAT 93
[2023-03-12] MEDS: amLODIPine Besylate 10 MG TABLET PO (17:06)
[2023-03-12 19:51] VITALS: BP 155/74; PULSE 65; RESP 18; TEMP 37; O2SAT 95
[2023-03-12 23:17] VITALS: BP 133/71; PULSE 64; RESP 18; TEMP 36.7; O2SAT 94
[2023-03-13 03:29] VITALS: BP 182/89; PULSE 66; RESP 18; TEMP 36.8; O2SAT 95
[2023-03-13] MEDS: oxyCODONE HCl Immed Release 5 MG TABLET PO ×3 (06:08→21:12)
[2023-03-13] MEDS: lisinopriL 20 MG TABLET PO ×2 (06:12→21:09)
[2023-03-13] MEDS: carvediloL 12.5 MG TABLET PO ×2 (06:12→21:09)
--- NOTE | 2023-03-13 06:23 | PC.NURSE ---
Addendum entered by Edna Seals RN 03/13/23 06:25: Dr Merida aware. Original Note: BP elevated, 182/89 . AM meds given early, patient states takes them at 4 AM at home.
[2023-03-13 07:33] VITALS: BP 152/72; PULSE 73; RESP 20; TEMP 36.8; O2SAT 95
--- NOTE | 2023-03-13 07:52 | CONS_ITS ---
DATE OF SERVICE: 03/11/2023 HISTORY OF PRESENT ILLNESS: I was asked to see patient to assist in evaluation and management of patient's dialysis needs in the setting of coming to the hospital complaining of generalized weakness and some shortness of breath. The patient states that since she started hydralazine 100 mg 3 times a day, she has been feeling out of sorts. She continues to get close followup with Cardiology, who has been adjusting her outpatient medications. The patient denies any fever, sweats, or chills. She has an ESRD patient who gets dialysis Monday, Monday, Monday, but only received 35 minutes of her dialysis treatment on Monday because she felt lightheaded and woozy. PAST MEDICAL HISTORY: Notable for carotid stenosis; ESRD; heart failure; paroxysmal AFib, on anticoagulation; coronary artery disease; DVT. MEDICATIONS ON ADMISSION: Listed as including amlodipine, Eliquis, aspirin, carvedilol, clonidine, Lasix, Neurontin, lisinopril, Renvela, and apparently hydralazine. ALLERGIES: SHE HAS MULTIPLE DRUG ALLERGIES LISTED IN THE ELECTRONIC MEDICAL RECORD. SOCIAL HISTORY: She is a nonsmoker, nondrinker. No illicit drug use. REVIEW OF SYSTEMS: As noted above. PHYSICAL EXAMINATION: VITAL SIGNS: Blood pressure of 140/70, heart rate in the 70s. HEAD: Atraumatic and normocephalic. NECK: Supple. Mucous membranes moist. LUNGS: Clear. CARDIAC: Regular rate and rhythm without rub. ABDOMEN: Soft, nontender. Good bowel sounds. LABORATORY DATA: Labs show hemoglobin 10.3, hematocrit 31.6, white blood cell count 6.1. Sodium 130, potassium 5.4, chloride 100, bicarb 16. IMPRESSION: End-stage renal disease. Patient admitted to the hospital with generalized fatigue and lightheadedness that seems to be timely associated being on hydralazine. 1. End-stage renal disease with dialysis today and keep her on her Monday, Monday, Monday schedule thereafter. 2. Lightheadedness. Monitor blood pressure and check orthostatic blood pressures. 3. Anemia. We will hold her EPO for now, I would like to get her as an outpatient. 4. Metabolic bone disease associated with chronic kidney disease. Continue her on phosphate binders. RECOMMENDATIONS: At this time include dialysis today and then get her back on a Monday, Monday, Monday schedule. We would hold her hydralazine and monitor blood pressures. We will follow the patient with the team. MD JENNI Alvarenga/RONNIE / [phone]
[2023-03-13] MEDS: Apixaban 2.5 MG TABLET PO ×2 (08:14→21:09)
[2023-03-13] MEDS: Sevelamer Carbonate Tablet 800 MG TABLET 1600 MG PO ×3 (08:14→21:09)
[2023-03-13] MEDS: 0.9 % Sodium Chloride Flush 3 ML SYRINGE IVFLUSH ×3 (08:14→21:09)
[2023-03-13] MEDS: Aspirin 81 MG TAB.CHEW PO (08:14)
[2023-03-13] MEDS: Gabapentin 300 MG CAPSULE PO (08:14)
[2023-03-13] MEDS: Nitroglycerin 0.4 MG PATCH.TD24 TRANSDERMA (08:15)
[2023-03-13 11:39] VITALS: BP 153/81; PULSE 62; RESP 20; TEMP 36.1; O2SAT 99
--- NOTE | 2023-03-13 12:06 | P.PNNP_ITS ---
Subjective Subjective Date of Service: 03/13/23 Interval history: seen and examined examined on dialysis feels tired Physical Exam Vital Signs: Vital Signs: Last Vital Signs Temp 97.0 F 03/13/23 11:39 Pulse 62 03/13/23 11:39 Resp 20 03/13/23 11:39 BP 153/81 H 03/13/23 11:39 Pulse Ox 99 03/13/23 11:39 O2 Del Method Room Air 03/13/23 11:39 BMI result Body Mass Index 21.2 Const: General: no acute distress, alert and awake HEENT: Head: Yes normocephalic and Yes atraumatic Neck: Neck: Yes supple Resp: Auscultation: diminished lung sounds Cardio: Heart sounds: S1 normal heart sound present and S2 normal heart sound present GI: Palpation (GI): Soft to palpation and nontender Extrem: General: Yes normal to inspection Objective Data Labs 03/12/23 05:38 03/12/23 05:38 Procedures Date of Service Date of Service: 03/13/23 Assessment & Plan Assessment and plan (1) ESRD (end stage renal disease): Status: Acute (2) Anemia: Status: Acute Plan usually has HD m-w-f at [facility] nephrogenic anemia lung mass will need o/p w/u REC HD today UF as tolerated no need for CURTIS renal diet phosphate binders Time Spent With Patient Time: Total time managing care of this patient today ____ minutes. Progress Note: Quality Stroke Does the patient have a stroke diagnosis?: No
--- NOTE | 2023-03-13 13:18 | MHC.CLN ---
NUTRITION DIET CHANGED PER DIALYSIS PARAMETERS: 2 GRAM SODIUM, LOW POTASSIUM, LOW PHOSPHORUS.
[2023-03-13] MEDS: amLODIPine Besylate 10 MG TABLET PO (14:23)
[2023-03-13] MEDS: Acetaminophen 325 MG TABLET 650 MG PO (14:32)
--- NOTE | 2023-03-13 15:03 | MHC.CM.PN ---
Patient may benefit from a PT eval to assist with disposition; CM will follow.
[2023-03-13 15:22] VITALS: BP 126/61; PULSE 73; RESP 14; TEMP 35.9; O2SAT 94
--- NOTE | 2023-03-13 16:32 | PM.DS ---
DS: Providers Provider Date of Service: 03/13/23 Date of admission: 03/10/23 18:18 Primary care physician: Ayah Villalta MD Consults: 03/10/23 18:22 Consult to Nephrology Routine Consulting Provider: Simone Lopez Reason for consultation: ESRD on HD Has provider been notified: Yes DS: Diagnosis Discharge Diagnosis (1) ESRD (end stage renal disease): Status: Acute (2) Anemia: Status: Acute DS: Summary Hospital Course Hospital Course: Chief Complaint:? extreme fatigue 73-year-old female history of carotid stenosis CKD on hemodyalisis (M,W,F last session today but only recieved 35 minutes) , heart failure, arthrosclerotic cardiovascular disease, paroxysmal atrial fibrillation on anticoagulants, NSTEMI, DVT again anticoagulated presenting to the emergency department with complaints of weakness, shortness breath, fatigue, malaise, myalgias, headache ( diffuse, no visual changes or trauma) , since 399. ? Patient denies associated chest pain, fevers, chills, nausea, vomiting, abdominal pain, vision changes, dizziness and weakness.? No recent sick contacts. Patient reports that she started hydralazine 100 mg TID recently.. symptoms have continued to worsen since she started this medicine.? ER work up demonstrated a a peripheral lung mass? in the backdrop of diffuse interstitial lung disease; patient has no complaints of shortness Hospital course: Patient presented with generalized weakness and extreme fatigue and some shortness of breath, work up was unremarkable other than a a lung mass seen on chest CT descrbed as Left lower lobe mass measures 2.9 x 4.3 cm concerning for neoplasm. Consultation with thoracic surgery is advised. PET/CT may be considered. Dr. Sultana (oncologist)'s office will see her several days on March 15 at 3 pm WEakness likely related to above condition and probably low BP--overall better. Hydralazine has been stopped. Physical therapy recommends home with home PT 2.Hypertension--BP is controlled without Hydralazine 3. ESRD on HD--Dialysis MWF 4.Paroxysmal atrial fibrillation - EKG sinus rhythm with frequent PACs - continue Eliquis as per outpatient dosing Time Spent with Patient Time attestation: Total time managing care of this patient today ____ minutes. Discharge coordination time: Greater than 30 minutes Quality: Safe Use of Opioids Does Pt have an Active Cancer Diagnosis on the Problem List?: No Quality: Stroke Does the patient have a stroke diagnosis?: No Physical Exam Vital Signs: Vital Signs: Last Vital Signs Temp 96.7 F L 03/13/23 15:22 Pulse 73 03/13/23 15:22 Resp 14 03/13/23 15:22 BP 126/61 03/13/23 15:22 Pulse Ox 94 03/13/23 15:22 O2 Del Method Room Air 03/13/23 15:22 BMI result Body Mass Index 21.2 DS: Data Data Completed and Pending Completed studies during hospitalization [Text1]: Procedures Performance of Urinary Filtration, Intermittent, Less than 6 Hours Per Day (10/31/22) Transfusion of Nonautologous Red Blood Cells into Peripheral Vein, Percutaneous Approach (10/31/22) Discharge Plan Discharge Anticipated Discharge Date/Time: 03/13/23 16:28 Patient Disposition: Home Health Service Discharge Diagnosis: Weakness, lung mass Referrals: Ayah Villalta MD [Primary Care Provider] - 1 Week Discharge Medications: Continued carvedilol 12.5 mg tablet 12.5 mg PO BID Qty: 120 0RF furosemide [Lasix] 40 mg tablet 40 mg PO TUTHSA hydralazine 100 mg tablet 100 mg PO TID 90 Days Qty: 270 3RF clonidine 0.2 mg/24 hr patch weekly 1 patch topical SA acetaminophen 500 mg Tablet 500 mg PO Q6H PRN (Reason: Pain) trazodone 100 mg tablet 1 tab PO BEDTIME sevelamer HCl [Renagel] 800 mg tablet 1,600 mg PO TID nitroglycerin 0.4 mg/hr Patch 24 Hour 0.4 mg transdermal DAILY Qty: 30 0RF Protocol: Hold for SBP< HOLD for SBP < : 90 Eliquis 2.5 mg tablet 2.5 mg PO BID lisinopril 20 mg tablet 20 mg PO BID gabapentin 300 mg capsule 300 mg PO DAILY oxycodone 5 mg tablet 5 mg PO Q6H PRN (Reason: severe pain) aspirin 81 mg Tablet,Chewable 81 mg PO DAILY amlodipine 10 mg tablet 10 mg PO DAILY@1400 Discharge Orders: Discharge Order (Routine); Ordered 03/13/23 Ordered By: Baudilio Sanchez Diet: Advance to usual diet Activity on Discharge: As tolerated Stand Alone Forms: Patient Portal Discharge page Care Plan Goals: improve weakness and lung mass work up Health Concerns: lung mass Plan of Treatment: home physical therapist Follow up with Dr. Sultana's office for PET scan to be arranged. Assessment: as above
--- NOTE | 2023-03-13 16:44 | P.PNIM_ITS ---
Subjective Subjective Date of Service: 03/13/23 Interval History: f/u on weakness, lung mass, overall feels better Physical Exam Vital Signs: Vital Signs: Last Vital Signs Temp 96.7 F L 03/13/23 15:22 Pulse 73 03/13/23 15:22 Resp 14 03/13/23 15:22 BP 126/61 03/13/23 15:22 Pulse Ox 94 03/13/23 15:22 O2 Del Method Room Air 03/13/23 15:22 BMI result Body Mass Index 21.2 Const: Other: General: AO X 3, no acute distress Resp: CTA bilateral CVS: S1,S2,RRR GI: +BS, NT, no distention Skin: No rash Neuro: motor grossly intact Psych: appropriate affect Objective Data Active Medications Acetaminophen (Acetaminophen 325 Mg Tablet) 650 mg PO Q6H PRN PRN Reason: Pain, Mild (Pain Scale 1-3) Last Admin: 03/13/23 14:32 Dose: 650 mg Documented By: LARA Amlodipine Besylate (Amlodipine Besylate 10 Mg Tablet) 10 mg PO DAILY@1400 [facility]; Protocol Last Admin: 03/13/23 14:23 Dose: 10 mg Documented By: LARA Apixaban (Apixaban 2.5 Mg Tablet) 2.5 mg PO BID [facility] Last Admin: 03/13/23 08:14 Dose: 2.5 mg Documented By: LARA Aspirin (Aspirin 81 Mg Tab.Chew) 81 mg PO DAILY [facility] Last Admin: 03/13/23 08:14 Dose: 81 mg Documented By: LARA Carvedilol (Carvedilol 12.5 Mg Tablet) 12.5 mg PO BID [facility]; Protocol Last Admin: 03/13/23 06:12 Dose: 12.5 mg Documented By: LITTLE Clonidine (Clonidine 0.2 Mg Patch.Tdwk) 0.2 mg TRANSDERMA Sa@0900 [facility]; Protocol Last Admin: 03/11/23 09:18 Dose: 0.2 mg Documented By: JUNIOR Furosemide (Furosemide 40 Mg Tablet) 40 mg PO TuThSa@0900 [facility]; Protocol Last Admin: 03/11/23 09:13 Dose: 40 mg Documented By: JUNIOR Gabapentin (Gabapentin 300 Mg Capsule) 300 mg PO DAILY [facility] Last Admin: 03/13/23 08:14 Dose: 300 mg Documented By: LARA Lisinopril (Lisinopril 20 Mg Tablet) 20 mg PO BID [facility]; Protocol Last Admin: 03/13/23 06:12 Dose: 20 mg Documented By: LITTLE Nitroglycerin (Nitroglycerin 0.4 Mg Patch.Td24) 0.4 mg TRANSDERMA DAILY [facility]; Protocol Last Admin: 03/13/23 08:15 Dose: 0.4 mg Documented By: LARA Ondansetron HCl (Ondansetron Hcl 4 Mg/2 Ml Vial) 4 mg IVPUSH Q8H PRN PRN Reason: Nausea and Vomiting Oxycodone HCl (Oxycodone Hcl Immed Release 5 Mg Tablet) 5 mg PO Q6H PRN PRN Reason: severe pain Last Admin: 03/13/23 14:34 Dose: 5 mg Documented By: LARA Pharmacy Consult (Consult Rx Perform Med Rec) 1 each MISCELLANE ONCE PRN PRN Reason: Consult order Sevelamer Carbonate (Sevelamer Carbonate Tablet 800 Mg Tablet) 1,600 mg PO TID [facility] Last Admin: 03/13/23 14:24 Dose: 1,600 mg Documented By: LARA Sodium Chloride (0.9 % Sodium Chloride Flush 3 Ml Syringe) 3 ml IVFLUSH [facility]SHIFT [facility] Last Admin: 03/13/23 16:28 Dose: 3 ml Documented By: FOGARTB Labs 03/12/23 05:38 03/12/23 05:38 Assessment and Plan (1) Physical deconditioning: Status: Acute (2) Lung mass: Status: Acute (3) Hypertension: Status: Acute Plan Patient presented with generalized weakness and extreme fatigue and some shortness of breath, work up was unremarkable other than a a lung mass seen on chest CT descrbed as Left lower lobe mass measures 2.9 x 4.3 cm concerning for neoplasm. Consultation with thoracic surgery is advised. PET/CT may be considered. Dr. Sultana (oncologist)'s office will see her several days on March 15 at 3 pm WEakness likely related to above condition and probably low BP--overall better. Hydralazine has been stopped. Physical therapy recommends home with home PT 2.Hypertension--BP is controlled without Hydralazine 3. ESRD on HD--Dialysis MWF 4.Paroxysmal atrial fibrillation - EKG sinus rhythm with frequent PACs - continue Eliquis as per outpatient dosing Eliobdulia DNR DNI Time Spent With Patient Time: Total time managing care of this patient today ____ minutes. Quality Stroke Does the patient have a stroke diagnosis?: No VTE Prior VTE?: No VTE Risk Level:: Medical - moderate - high VTE Device Contraindication: Treatment Not Indicated VTE Drug Contraindication: N/A - Med Ordered
[2023-03-13 19:43] VITALS: BP 141/74; PULSE 74; RESP 14; TEMP 36.1; O2SAT 97
[2023-03-13 23:50] VITALS: BP 138/72; PULSE 71; RESP 18; TEMP 37.1; O2SAT 94
[2023-03-14 03:25] VITALS: BP 164/80; PULSE 70; RESP 18; TEMP 36.6; O2SAT 97
[2023-03-14 07:20] VITALS: BP 174/80; PULSE 68; RESP 20; TEMP 36.9; O2SAT 96
--- NOTE | 2023-03-14 07:49 | MHC.CM.PN ---
Patient has been medically cleared for dc to home today, with services. A referral has been made to [facility], who has been made aware of today's dc.
[2023-03-14] MEDS: Nitroglycerin 0.4 MG PATCH.TD24 TRANSDERMA (08:16)
[2023-03-14] MEDS: Aspirin 81 MG TAB.CHEW PO (08:17)
[2023-03-14] MEDS: carvediloL 12.5 MG TABLET PO (08:17)
[2023-03-14] MEDS: Sevelamer Carbonate Tablet 800 MG TABLET 1600 MG PO (08:17)
[2023-03-14] MEDS: oxyCODONE HCl Immed Release 5 MG TABLET PO (08:17)
[2023-03-14] MEDS: 0.9 % Sodium Chloride Flush 3 ML SYRINGE IVFLUSH (08:17)
[2023-03-14] MEDS: lisinopriL 20 MG TABLET PO (08:17)
[2023-03-14] MEDS: Furosemide 40 MG TABLET PO (08:17)
[2023-03-14] MEDS: Apixaban 2.5 MG TABLET PO (08:17)
[2023-03-14] MEDS: Gabapentin 300 MG CAPSULE PO (08:17)
--- NOTE | 2023-03-14 09:54 | P.F2F_ITS ---
Service Date Service Date: 03/14/23 Encounter Date of encounter: 03/14/23 Reasons for Services Signs and symptoms assessed: weakness Reason for residential: medication management and teach disease management Reason for physical therapy: home safety and mobility and restore joint function Homebound: Leaving the home is medically contraindicated at this time without the asist of a device and/or another person due th the listed conditions above and below. Reason homebound: unsteady gait / fall risk and weakness related to hospital stay Homebound supporting statement: homebound due to weakness post hospitalization and therefore needs the assitance of another perso Certification: Based on the above findings, I certify that this patient is confined to the home and needs intermittent residential care, physical therapy and/or speech therapy, or continues to need occupational therapy. The patient is under my care, and I have initiated the establishment of the plan of care. The patient will be followed by a physician who will periodically review the plan of care. Time Spent With Patient Time: Total time managing care of this patient today ____ minutes.
--- NOTE | 2023-03-14 10:14 | P.PNNP_ITS ---
Subjective Subjective Date of Service: 03/14/23 Interval history: f/u on weakness, lung mass, overall feels better Physical Exam Vital Signs: Vital Signs: Last Vital Signs Temp 98.5 F 03/14/23 07:20 Pulse 68 03/14/23 07:20 Resp 20 03/14/23 07:20 BP 174/80 H 03/14/23 07:20 Pulse Ox 96 03/14/23 07:20 O2 Del Method Room Air 03/14/23 07:20 BMI result Body Mass Index 21.2 Comfortable Neck is supple Lung: Air entry equal Heart: S1,S2, normal. No rub Abd: Soft. BS + NS : Alert.No asterexis Ext: No edema Const: Other: awake alert fatigued looking General: no acute distress, alert and awake HEENT: Head: Yes normocephalic and Yes atraumatic Neck: Neck: Yes supple Resp: Other: scattered expiratory wheezes at bases with end inspiratory crackles noted Auscultation: diminished lung sounds Cardio: Other: no S4; positive S1-S2; no S3 murmurs rubs or gallops Heart sounds: S1 normal heart sound present and S2 normal heart sound present GI: Palpation (GI): Soft to palpation and nontender Neuro: Other: cranial nerves 2-12 grossly intact as tested. Motor is 5/5 all extremities. Sensation is intact Extrem: Other: no edema bilaterally General: Yes normal to inspection Objective Data Labs 03/12/23 05:38 03/12/23 05:38 Procedures Date of Service Date of Service: 03/14/23 Assessment & Plan Assessment and plan (1) ESRD (end stage renal disease): Status: Acute (2) Anemia: Status: Acute Plan ESRD usually has HD m-w- at [facility] No signs or symptoms of uremia nephrogenic anemia lung mass will need o/p w/u REC HD 3 times a week per protocol UF as tolerated no need for CURTIS renal diet phosphate binders Time Spent With Patient Time: Total time managing care of this patient today ____ minutes. Progress Note: Quality Stroke Does the patient have a stroke diagnosis?: No
[2023-03-14 11:09] VITALS: BP 115/56; PULSE 67; RESP 20; TEMP 36.9; O2SAT 97
== END 2023-03-14 13:38 | disposition home health service (06) ==
LOC: HO.ED 17:10 → HO.EDOVER 18:22 → HO.IMC 19:08
PROVIDERS: Physician Assistant; Admitting Provider Hospitalist; Emergency Provider Emergency Medicine Emergency Medical Services; PCP Family Medicine; Visit Provider Internal Medicine
DX: R53.1 Weakness (principal); R91.8 Other nonspecific abnormal finding of lung field; J84.9 Interstitial pulmonary disease, unspecified; R06.02 Shortness of breath; R53.81 Other malaise; Z20.822 Contact with and (suspected) exposure to COVID-19; I12.0 Hypertensive chronic kidney disease with stage 5 chronic kidney disease or end stage renal disease; N18.6 End stage renal disease; Z99.2 Dependence on renal dialysis; D64.9 Anemia, unspecified; I48.0 Paroxysmal atrial fibrillation; F17.210 Nicotine dependence, cigarettes, uncomplicated; Z86.718 Personal history of other venous thrombosis and embolism; Z79.01 Long term (current) use of anticoagulants; Z79.899 Other long term (current) drug therapy
CPT/HCPCS: 36415; 51701; 70450; 71045; 71250; 80053; 82947; 83735; 83880; 84484; 85025; 87635; 90999; 93005; 97161; 99222; 99285

== ENCOUNTER → 2023-03-10 07:44 | Outpatient (BNV) | payer MEDICARE, MEDICAID, SELFPAY | PROVIDERS: Emergency Provider Emergency Medicine Emergency Medical Services; PCP Family Medicine; Visit Provider Internal Medicine Cardiovascular Disease | DX: R53.1 Weakness (principal) | CPT/HCPCS: 93010 ==

== ENCOUNTER → 2023-03-10 18:18 | Outpatient (BNV) | payer MEDICARE, MEDICAID, SELFPAY | PROVIDERS: Admitting Provider Hospitalist; Emergency Provider Emergency Medicine Emergency Medical Services; PCP Family Medicine; Visit Provider Hospitalist | DX: N18.6 End stage renal disease (principal); D64.9 Anemia, unspecified | CPT/HCPCS: 99223; 99232; 99233; 99239; G0180 ==

== ENCOUNTER → 2023-03-15 14:32 | Outpatient (BNV) | payer MEDICARE, MEDICAID, SELFPAY | PROVIDERS: PCP Family Medicine; Visit Provider Internal Medicine | DX: R91.8 Other nonspecific abnormal finding of lung field (principal) | CPT/HCPCS: 99203; 99213; 99442 ==

== ENCOUNTER → 2023-03-16 09:23 | Outpatient (REF) | payer MEDICARE, MEDICAID, SELFPAY ==
--- NOTE | ~2023-03-16 | NM_ITS ---
Lexiscan Myocardial perfusion study Indication: Coronary artery disease, history of bypass surgery, assess for ischemia Technique: The patient was brought in for a Lexiscan perfusion study on 03/16/2023 and was injected 0.4 mg of Lexiscan intravenously. Within a minute of this injection 25 mCi of sestamibi was given intravenously. Images were obtained using the SPECT gamma camera interlaced with the gating device. Images were obtained in supine position. Resting perfusion study was performed on 03/23/2023. Patient was administered 25 mCi of sestamibi intravenously at rest. Images were then obtained in supine position. Images were processed with the software and compared side to side in short axis, horizontal long axis and vertical long axis views. Total DLP 41mGy-cm. Findings: Raw acquisition reviewed. Arms by the patient's side. The stress perfusion study showed mildly diminished tracer uptake in the distal part of inferior wall. However, there is also adjacent subdiaphragmatic tracer uptake. No major improvement with CT attenuation correction. The gated study shows normal LV systolic function with calculated LVEF of 68%. LV cavity is normal in size. The gated study shows normal wall thickening and contraction of segments. Resting study shows no significant perfusion abnormality. Gating at rest reveals normal wall motion with ejection fraction at 69%. The findings are consistent with mild distal inferior reversible defect. Could be artifactual. Cannot exclude a small area of ischemia. NM/NM arianne perf SPECT rest & str Impression: 1. Myocardial perfusion imaging study shows possible mild ischemia in the distal inferior wall. Could also be artifactual. Otherwise, no significant perfusion defects. 2. Gated LVEF is 68% during stress and 69% during rest. 3. Transient ischemic dilatation not present. EKG component of the test reported separately.
--- NOTE | 2023-03-16 09:30 | CA_ITS ---
Acquisition Time: 2023-03-16 10:31:55 Total Exercise Time: 00:02:00 Test Indications: CHF, CAD Medications: Protocol: LEXISCAN Max HR: 084 BPM 57% of Pred: 145 BPM Max BP: 174/072 mmHG Max Work Load: 1.0 METS Pharmacolgical stress test with Lexiscan injection while sitting and kicking her legs, without anginal symptoms, with isolated PVCs, with normotensive response to injection, without EKG changes, Aminophylline 75mg IV given to reverse Lexiscan. Nuclear images pending. Test reviewed with Dr. Enamorado. Referred By: Vern Enamorado Overread By: VERN ENAMORADO
== END ==
LOC: HO.CARD 09:23
PROVIDERS: Visit Provider Internal Medicine
DX: I25.10 Atherosclerotic heart disease of native coronary artery without angina pectoris (principal); I35.0 Nonrheumatic aortic (valve) stenosis
CPT/HCPCS: 78452; 93017; A9500; J0280; J2785

== ENCOUNTER → 2023-03-16 09:30 | Outpatient (BNV) | payer MEDICARE, MEDICAID, SELFPAY | PROVIDERS: Visit Provider Internal Medicine | DX: I25.10 Atherosclerotic heart disease of native coronary artery without angina pectoris (principal) | CPT/HCPCS: 78452; 93016; 93018 ==

== ENCOUNTER 2023-03-21 13:22 | Outpatient (REF) | payer MEDICARE, MEDICAID, SELFPAY ==
--- NOTE | ~2023-03-21 | US_ITS ---
EXAMINATION: US EXTRACRANIAL CAROTID DUPLEX, BILATERAL CLINICAL INFORMATION: Carotid stenosis. COMPARISON: None available. TECHNIQUE: Real-time ultrasound and Doppler techniques (integrating B-mode 2-D vascular images, Doppler spectral analysis and color-flow Doppler imaging) were utilized to interrogate the extracranial carotid arteries, the vertebral arteries and proximal subclavian arteries bilaterally. The degree of stenosis is determined by criteria similar to NASCET. FINDINGS: Right Side: 1. There is mild calcified atherosclerotic plaque seen in the bifurcation/proximal ICA region. 2. The common carotid artery PSV proximally is 112 cm/s and distally 71 cm/s. 3. The proximal internal carotid artery velocities are 92 cm/s systolic and 27 cm/s diastolic. 4. The proximal external carotid artery PSV is 133 cm/s. 5. The vertebral artery shows antegrade flow. 6. The subclavian artery waveforms show pandiastolic flow suggesting aortic insufficiency. Left Side: 1. There is moderate atherosclerotic plaque seen in the bifurcation/proximal ICA region. 2. The common carotid artery PSV proximally is 74 cm/s and distally 86 cm/s. 3. The proximal internal carotid artery velocities are 136 cm/s systolic and 36 cm/s diastolic. 4. The proximal external carotid artery PSV is 123 cm/s. 5. The vertebral artery shows antegrade flow. 6. The subclavian artery waveforms show pandiastolic flow suggesting aortic insufficiency. US/US carotid duplex BI IMPRESSION: 1. RIGHT: Minimal, non-hemodynamically significant stenosis of the proximal right internal carotid artery corresponding to a 0-49% stenosis by velocity criteria. 2. LEFT: Moderate, hemodynamically significant stenosis of the proximal left internal carotid artery corresponding to a 50-79% stenosis by velocity criteria.
== END 2023-03-21 13:23 | disposition home or self-care (01) ==
LOC: HO.US 13:22
PROVIDERS: Visit Provider Internal Medicine
DX: I65.23 Occlusion and stenosis of bilateral carotid arteries (principal)
CPT/HCPCS: 93880

== ENCOUNTER 2023-03-24 18:52 | Emergency (ER) | payer MEDICARE, MEDICAID, SELFPAY ==
--- NOTE | ~2023-03-24 | XR_ITS ---
EXAMINATION: XR CHEST CLINICAL INFORMATION: Flulike symptoms/cough. COMPARISON: CT chest 03/10/2023. Chest radiograph 03/10/2023. TECHNIQUE: Frontal view of the chest was obtained. FINDINGS: Left-sided dual-lumen catheter with the tip at the level of the right atrium. Stable prominence of the cardiomediastinal silhouette. Redemonstration of midline sternal wires and atrial appendage clear. Again noted focal masslike opacity in the medial left lower lung in keeping with known pulmonary mass best visualized on prior CT. Several additional smaller pulmonary nodules are best seen on the prior CT. No new discrete focal infiltrate. No pleural effusion or pneumothorax. Chronic left-sided rib fractures. 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 Redemonstration of right humeral arthroplasty. XR/XR chest 1V IMPRESSION: 1. No new focal infiltrate, pleural effusion or pneumothorax. 2. Again noted focal masslike opacity in the medial left lower lung in keeping with known pulmonary mass best visualized on prior CT. Multiple additional pulmonary nodules are better seen on prior CT chest from 03/10/2023. Continued follow-up according to according to guidelines is recommended.
[2023-03-24 18:57] VITALS: BP 112/63; PULSE 84; RESP 18; TEMP 37.1; O2SAT 97
--- NOTE | 2023-03-24 19:20 | ECG_ITS ---
Test Reason : WEAKNESS Blood Pressure : / mmHG Vent. Rate : 077 BPM Atrial Rate : 077 BPM P-R Int : 184 ms QRS Dur : 094 ms QT Int : 424 ms P-R-T Axes : 053 -20 053 degrees QTc Int : 479 ms Normal sinus rhythm Incomplete right bundle branch block Borderline ECG When compared with ECG of 10-MAR-2023 08:04, Premature ventricular complexes are no longer Present Incomplete right bundle branch block is now Present Criteria for Septal infarct are no longer Present Referred By: Yanely Danielson Electronically Signed By:Mikal Cavanaugh
--- NOTE | 2023-03-24 19:21 | ED_ITS ---
HPI - General Adult General Chief complaint: Upper Respiratory Symptoms Stated complaint: not feeling well after dialysis morning, per ems Time Seen by Provider: 03/24/23 19:21 Source: patient and EMS Mode of arrival: EMS Limitations: no limitations History of Present Illness HPI narrative: Patient is a 73 year old assigned female at with a history of CAD, ESRD, lung mass, HFpEF, atrial fib, and NSTEMI presenting to the emergency department today with congestion. Patient states that she felt more congested after dialysis today. Patient states that this happened a few weeks ago and she was admitted after they found a new lung mass. Patient states that they have not been able to get a PET scan or a biopsy of the mass yet. Patient states that she is primarily congested in her nostrils. Patient denies any dizziness, lightheadedness, abdominal pain, nausea, vomiting, fever, chills, blurry vision, double vision, loss of vision, chest pain, difficulty breathing, shortness of breath, back pain, night sweats, pain with urination, increased urinary frequency, increased urinary urgency, blood in her urine or stool, syncope or a near syncopal episode, recent trauma or falls, bowel incontinence, bladder in continence, bowel retention, bladder retention, or any other complaints at this time. Onset (ago): hour(s) Radiation: non-radiation Severity: mild Relieving factors: none Exacerbating factors: none Associated symptoms: denies other symptoms Treatments prior to arrival: none Related Data Home Medications Medication Instructions Recorded Confirmed amlodipine 10 mg tablet 10 mg PO DAILY@1400 08/10/20 03/15/23 acetaminophen 500 mg tablet 500 mg PO Q6H PRN Pain 10/30/22 03/15/23 clonidine 0.2 mg/24 hr weekly 1 patch topical SA 10/30/22 03/15/23 transdermal patch trazodone 100 mg tablet 1 tab PO BEDTIME 10/30/22 03/15/23 gabapentin 300 mg capsule 300 mg PO DAILY 11/09/22 03/15/23 apixaban 2.5 mg tablet (Eliquis) 2.5 mg PO BID 03/07/23 03/15/23 furosemide 40 mg tablet (Lasix) 40 mg PO TUTHSA 03/07/23 03/15/23 lisinopril 20 mg tablet 20 mg PO BID 03/07/23 03/15/23 aspirin 81 mg chewable tablet 81 mg PO DAILY 03/10/23 03/15/23 fluoxetine 20 mg capsule 20 mg PO DAILY 03/15/23 03/15/23 Previous Rx's Medication Instructions Recorded carvedilol 12.5 mg tablet 12.5 mg PO BID #120 tabs 03/07/23 oxycodone 5 mg tablet 5 mg PO Q6H PRN severe pain #12 03/14/23 tabs nitroglycerin 0.4 mg/hr 0.4 mg transdermal DAILY #30 ea 03/24/23 transdermal 24 hour patch Allergies Allergy/AdvReac Type Severity Reaction Status Date / Time atenolol [ATENOLOL] Allergy Severe DIFF Verified 03/15/23 14:47 BREATHING, heart races. doxycycline Allergy Severe Anaphylaxis Verified 03/15/23 14:47 duloxetine Allergy Severe Anaphylaxis Verified 03/15/23 14:47 amphetamine [Adderall] AdvReac Severe shortness Verified 03/15/23 14:47 of breath dextroamphetamine [Adderall] AdvReac Severe shortness Verified 03/15/23 14:47 of breath Review of Systems Constitutional: Constitutional: Reports no additional constitutional complaints, Denies chills, Denies fever(s) and Denies night sweats Eyes: Eyes: Reports no additional eye complaints, Denies blurry vision, Denies change in vision, Denies diplopia, Denies eye discharge, Denies loss of vision and Denies eye pain ENT: Denies dizziness and Reports nasal congestion Cardiovascular: Cardiovascular: Reports no additional cardiovascular complaints, Denies chest pain, Denies lightheadedness, Denies Loss of Consciousness and Denies dyspnea Respiratory: Respiratory: Reports no additional respiratory complaints and Denies dyspnea Gastrointestinal: Gastrointestinal: Reports no additional gastrointestinal complaints, Denies abdominal pain, Denies melena, Denies hematochezia, Denies change in bowel habits and Denies change in stool character Genitourinary: Genitourinary: Denies hematuria, Denies urinary frequency, Denies dysuria, Denies urinary incontinence, Denies urinary hesitancy and Denies urinary urgency Musculoskeletal: Musculoskeletal: Reports no additional musculoskeletal complaints, Denies numbness and Denies tingling Neurologic: Denies dizziness, Denies loss of vision, Denies numbness and Denies tingling Psychiatric: Psychiatric: Reports no additional psychiatric complaints Endocrine: Endocrine: Reports no additional endocrine complaints Hematologic/Lymphatic: Hematologic/Lymphatic: Reports no additional hematologic/lymphatic complaints Allergic/Immunologic: Allergic/Immunologic: Reports no additional allergic/immunologic complaints [facility] Past Medical History Attestation statement: The following information was validated with the patient. Source: old records reviewed and nursing notes reviewed Medical History Anemia Aortic stenosis Asthmatic bronchitis Atherosclerotic cardiovascular disease CAD (coronary artery disease) CKD (chronic kidney disease), stage IV Depression ESRD (end stage renal disease) GERD (gastroesophageal reflux disease) History of DVT (deep vein thrombosis) History of ectopic History of non-ST elevation myocardial infarction (NSTEMI) (~12/2020) Hypertension Interstitial lung disease Osteopenia PAF (paroxysmal atrial fibrillation) (~12/2020) Surgical History History of carpal tunnel release of both wrists History of colonoscopy History of coronary artery bypass graft x 3 History of left knee replacement History of rectopexy History of total replacement of right shoulder joint S/P arteriovenous (AV) fistula creation Family History Family History Father No problems noted. Mother Myocardial infarction Social History Social History Household Members: Spouse and Children Housing: House Do you presently have visiting nurse or other home services: Yes Alcohol intake: never Patient Tobacco Use Status: Current everyday Tobacco user Tobacco use type: Cigarette Smoked in Last 30 Days: Yes Second Hand Smoke Exposure: No Use of substances other than those prescribed or required for medical reasons: No Advance Directives: Yes Advance Directives on File: Yes Advance Directives Date on File: 03/10/23 service: No Current occupational status: retired Current occupation: young,right handed Physical Exam ED Vital Signs: Vital Signs - 24 hr 03/24/23 18:57 03/24/23 19:22 03/24/23 19:52 Temperature 98.7 F 98.7 F Pulse Rate 84 78 Respiratory Rate 18 21 H Blood Pressure 112/63 112/63 Pulse Oximetry 97 97 97 Oxygen Delivery Method Room Air Room Air Room Air 03/24/23 20:53 03/24/23 21:27 Temperature 98.3 F Pulse Rate 73 82 Respiratory Rate 14 17 Blood Pressure 121/58 L 115/93 H Pulse Oximetry 96 95 Oxygen Delivery Method Room Air Room Air BMI result Body Mass Index 20.3 Const General: cooperative, no acute distress, alert and awake Nutritional Appearance: well nourished Orientation/consciousness: patient oriented x3 Limitations: no limitations HENMT Head: Yes normal to inspection and Yes atraumatic Ears: hearing grossly normal bilaterally and external ears normal General nose exam: Normal external nose present, no nasal discharge noted and no epistaxis Face and sinus: Yes normal facial exam, No abrasion and No laceration Mouth: Normal oral and palatal mucosa present, no drooling and no muffled voice Eyes General: appearance normal, both eyes and all related structures Periorbital: periorbital findings normal Eyelids: Yes eyelids normal Conjunctivae: conjunctivae normal Pupils: Equal, round and reactive pupils present EOM: EOMs intact bilaterally Neck Neck: Yes normal visual inspection, Yes full ROM and Yes no lymphadenopathy Chest Chest palpation & inspection: normal inspection of the chest Resp Effort & Inspection: normal respiratory effort and able to speak in complete sentences Auscultation: clear to auscultation bilaterally GI Inspection: Yes normal to inspection Neuro General: patient oriented x3 and moves all extremities Cranial nerves: Yes Equal, round and reactive pupils present Cognition (Neuro): normal cognition Motor exam (neuro): 5/5 motor strength present throughout Sensory Exam: Normal double simultaneous stimulation for sensation Coordination: [id number] test normal Extrem General: Yes normal to inspection, Yes full ROM and Yes capillary refill normal Psych Appearance: grossly normal Mental Status: mental status grossly normal Affect: normal affect Attitude: cooperative Thought process: Normal thought process present Thought content: Normal thought content present Insight: Good insight present (Psych) Medical Decision Making Medical Decision Making MDM Narrative: Patient is a 73 year old assigned female at with a history of CAD, ESRD, lung mass, HFpEF, atrial fib, and NSTEMI presenting to the emergency department today with nasal congestion. Patient's physical exam was unremarkable. Patient's blood work was consistent with the patient's baseline. Patient's EKG was unrema rkable. Patient's chest x-ray showed the lung mass previously identified. I explained my physical exam findings as well as all test results to the patient. I answered all questions asked by the patient. I stressed the importance of the patient taking her medication as prescribed. I stressed the importance of the patient following up with her primary care provider. I stressed the importance of the patient returning to the emergency department immediately if her symptoms were to worsen or if she were to develop any dizziness, shortness of breath, difficulty breathing, chest pain, blurry vision, loss of vision, nausea, vomiting, abdominal pain, fever, chills, back pain, or any other complaints. Patient verbalized agreement and understanding with this treatment plan and discharge. Differential Diagnosis Differential Diagnoses: The differential diagnosis associated with the presentation includes URI COVID-19 Admission/Observation Consideration of admission/observation: Escalation of care including admission/observation considered Patient would have been admitted to the hospital had her work up had any findings where hospital admission was appropriate and her clinical presentation warranted hospital admission. Lab Data MDM Lab Attestation statement: I reviewed the patient's lab results. My interpretation of these studies and their corresponding values is that they are grossly normal for the patient. 03/24/23 19:31 03/24/23 19:31 Labs: Lab Results 03/24/23 03/24/23 03/24/23 Range/Units 19:18 19:31 19:31 WBC 5.2 (4.8-10.8) X10*3/uL RBC 3.38 L (4.20-5.50) X10*6/uL Hgb 11.0 L (12.0-16.0) g/dl Hct 33.6 L (37.0-47.0) % MCV 99.4 H (80.0-98.0) fL MCH 32.5 (27.0-33.0) pg MCHC 32.7 (31.0-35.0) g/dl RDW 14.0 (11.0-16.0) % Plt Count 187 (160-400) X10*3/uL MPV 8.9 L (9.4-12.3) fL Immature Gran % (Auto) 0.6 H (0.0-0.4) % Neut % (Auto) 56.8 (45-73) % Lymph % (Auto) 24.2 (20-40) % [place] % (Auto) 14.7 H (2-11) % Eos % (Auto) 2.9 (0-4) % Baso % (Auto) 0.8 (0-2) % Lymph # (Auto) 1.3 (1.2-4.9) X10*3/uL [place] # (Auto) 0.8 (0.1-1.2) X10*3/uL Eos # (Auto) 0.2 (0.0-0.4) X10*3/uL Baso # (Auto) 0.0 (0.0-0.2) X10*3/uL Abs Immat Gran (auto) 0.03 (0.00-0.03) X10*3/uL Absolute Neuts (auto) 3.0 (2.0-8.3) x10*3/uL Absolute Nucleated RBC 0.000 (0.0-0.012) X10*3/uL Nucleated RBC % (auto) 0.0 (0.0-0.2) /100WBC Sodium 138 (135-145) mmol/L Potassium 4.5 (3.3-5.1) mmol/L Chloride 103 (96-108) mmol/L Carbon Dioxide 21 L (22-29) mmol/L Anion Gap 19 (12-20) BUN 24 H (9-16) mg/dL Creatinine 3.37 H (0.5-1.4) mg/dL Estim Creat Clear Calc 12.2 Estimated GFR 13 Random Glucose 90 (60-115) mg/dL Calcium 8.3 L D (8.4-10.2) mg/dL Magnesium 2.1 (1.6-2.6) mg/dL Total Bilirubin 0.3 (0.0-1.0) mg/dL AST 15 (5-31) U/L ALT 8 (0-31) U/L Alkaline Phosphatase 123 H (39-117) U/L Total Protein 7.6 (6.5-8.0) g/dL Albumin 3.5 (3.5-5.0) g/dL Influenza Type A (PCR) NEGATIVE (Negative) Influenza Type B (PCR) NEGATIVE (Negative) RSV RNA Qual (PCR) NEGATIVE (Negative) SARS-CoV-2 RNA (RT-PCR) NEGATIVE (Negative) Independent Interpretation I performed an independent interpretation of an: EKG Interpretation: Vent. Rate: 077 BPM ? ? Atrial Rate: 077 BPM P-R Int: 184 ms? QRS Dur: 094 ms QT Int: 424 ms ? ? ? P-R-T Axes: 053 -20 053 degrees QTc Int: 479 ms ? Normal sinus rhythm Incomplete right bundle branch block Borderline ECG When compared with ECG of 10-MAR-2023 08:04, Premature ventricular complexes are no longer Present Incomplete right bundle branch block is now Present Criteria for Septal infarct are no longer Present DD/ 26 My interpretation is in agreement with the radiologist's impression of this imaging study. EXAMINATION: XR CHEST CLINICAL INFORMATION: Flulike symptoms/cough. COMPARISON: CT chest 03/10/2023. Chest radiograph 03/10/2023. TECHNIQUE: Frontal view of the chest was obtained. FINDINGS: Left-sided dual-lumen catheter with the tip at the level of the right atrium. Stable prominence of the cardiomediastinal silhouette. Redemonstration of midline sternal wires and atrial appendage clear. Again noted focal masslike opacity in the medial left lower lung in keeping with known pulmonary mass best visualized on prior CT. Several additional smaller pulmonary nodules are best seen on the prior CT. No new discrete focal infiltrate. No pleural effusion or pneumothorax. Chronic left-sided rib fractures. 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 Redemonstration of right humeral arthroplasty. XR/XR chest 1V IMPRESSION: 1.? No new focal infiltrate, pleural effusion or pneumothorax. 2.? Again noted focal masslike opacity in the medial left lower lung in keeping with known pulmonary mass best visualized on prior CT. Multiple additional pulmonary nodules are better seen on prior CT chest from 03/10/2023. Continued follow-up according to according to guidelines is recommended. Dictated By: Alejandra Owen Signed By: Electronically signed by Safia 03/24/232014 Radiology Impression Discussion of test interpretation with radiology: I have reviewed the radiologist's reading. Independent Historian Clinical information obtained from an independent historian. History obtained from or confirmed by: EMS (EMS provided additional history and confirmed the history provided by the patient.) External Record Review External record reviewed: Other (reviewed previous ED visits) Chronic Conditions Patient?s care impacted by: Other (ESRD, atrial fib) Discharge Plan Discharge Clinical Impression: URI (upper respiratory infection) Patient Disposition: Home, Self-Care Instructions: Upper Respiratory Infection (DC) Additional Instructions: Follow up with your primary care provider. Return to the emergency department immediately if your symptoms worsen or if you develop any dizziness, shortness of breath, difficulty breathing, chest pain, blurry vision, loss of vision, nausea, vomiting, abdominal pain, fever, chills, back pain, or any other complaints. Prescriptions: No Action carvedilol 12.5 mg tablet 12.5 mg PO BID Qty: 120 0RF furosemide [Lasix] 40 mg tablet 40 mg PO TUTHSA nitroglycerin 0.4 mg/hr patch 24 hour 0.4 mg transdermal DAILY Qty: 30 0RF Protocol: Hold for SBP< HOLD for SBP < : 90 clonidine 0.2 mg/24 hr patch weekly 1 patch topical SA acetaminophen 500 mg Tablet 500 mg PO Q6H PRN (Reason: Pain) trazodone 100 mg tablet 1 tab PO BEDTIME Eliquis 2.5 mg tablet 2.5 mg PO BID lisinopril 20 mg tablet 20 mg PO BID gabapentin 300 mg capsule 300 mg PO DAILY aspirin 81 mg Tablet,Chewable 81 mg PO DAILY oxycodone 5 mg tablet 5 mg PO Q6H PRN (Reason: severe pain) Qty: 12 0RF fluoxetine 20 mg capsule 20 mg PO DAILY amlodipine 10 mg tablet 10 mg PO DAILY@1400 Referrals: [facility] [place] Family Medicine [Provider Group] (Call to establish and follow up with a primary care provider. If you already have a primary care provider, please follow up with them.) [facility] [place] Primary Care, Ivonne [Provider Group] (Call to establish and follow up with a primary care provider. If you already have a primary care provider, please follow up with them.) [facility] [place] Primary CareJose Armando [Provider Group] (Call to establish and follow up with a primary care provider. If you already have a primary care provider, please follow up with them.) Interventions: ED Discharge Assessment Last Done: 03/24/23 21:57 Discharge Date/Time: 03/24/23 21:58 Print Language: Malay
[2023-03-24 19:22] VITALS: BP 112/63; BP 140/70; PULSE 78; PULSE 90; RESP 21; TEMP 37.1; O2SAT 96; O2SAT 97; BMI 20.3
[2023-03-24 19:36] LABS: MANUAL DIFF FLAG NO
[2023-03-24 19:38] LABS: Basophils Percent Auto 0.8 % (0-2); Eosinophils Absolute Auto 0.2 X10*3/uL (0.0-0.4); Eosinophils Percent Auto 2.9 % (0-4); Hematocrit 33.6 % (37.0-47.0); Imm Gran Abs Auto 0.03 X10*3/uL (0.00-0.03); Imm Gran Pct Auto 0.6 % (0.0-0.4); Lymphocytes Absolute Auto 1.3 X10*3/uL (1.2-4.9); Lymphocytes Percent Auto 24.2 % (20-40); Mean Corpuscular HGB Conc 32.7 g/dl (31.0-35.0); Mean Corpuscular Hemoglobin 32.5 pg (27.0-33.0); Mean Corpuscular Volume 99.4 fL (80.0-98.0); Mean Platelet Volume 8.9 fL (9.4-12.3); Monocytes Absolute Auto 0.8 X10*3/uL (0.1-1.2); Monocytes Percent Auto 14.7 % (2-11); Neutrophils Percent Auto 56.8 % (45-73); Platelet Count 187 X10*3/uL (160-400); Red Blood Count 3.38 X10*6/uL (4.20-5.50); White Blood Count 5.2 X10*3/uL (4.8-10.8)
[2023-03-24 19:50] LABS: Alanine Aminotransferase 8 U/L (0-31); Albumin Level 3.5 g/dL (3.5-5.0); Alkaline Phosphatase 123 U/L (39-117); Anion Gap 19 (12-20); Aspartate Amino Transferase 15 U/L (5-31); Bilirubin Total 0.3 mg/dL (0.0-1.0); Blood Urea Nitrogen 24 mg/dL (9-16); Calcium 8.3 mg/dL (8.4-10.2); Carbon Dioxide 21 mmol/L (22-29); Chloride 103 mmol/L (96-108); Creatinine Clr Calc Pharmacy 12.2; Estimated Glomerular Filt Rate 13; Glucose Random 90 mg/dL (60-115); Magnesium 2.1 mg/dL (1.6-2.6); Potassium 4.5 mmol/L (3.3-5.1); Sodium 138 mmol/L (135-145); Total Protein 7.6 g/dL (6.5-8.0)
[2023-03-24 19:52] VITALS: PULSE 90; O2SAT 97
[2023-03-24 20:01] LABS: Influenza A PCR NEGATIVE (Negative); Influenza B PCR NEGATIVE (Negative); Resp Syncy Virus RNA Qual PCR NEGATIVE (Negative); SARS COV2 PCR INHOUSE NEGATIVE (Negative)
[2023-03-24 20:53] VITALS: BP 121/58; PULSE 73; RESP 14; TEMP 36.8; O2SAT 96
[2023-03-24 21:27] VITALS: BP 115/93; PULSE 82; RESP 17; O2SAT 95
== END 2023-03-24 21:58 | disposition home or self-care (01) ==
PROVIDERS: Physician Assistant Medical; Emergency Provider Emergency Medicine
DX: J06.9 Acute upper respiratory infection, unspecified (principal); I12.0 Hypertensive chronic kidney disease with stage 5 chronic kidney disease or end stage renal disease; N18.6 End stage renal disease; Z99.2 Dependence on renal dialysis; D64.9 Anemia, unspecified; I48.0 Paroxysmal atrial fibrillation; F17.210 Nicotine dependence, cigarettes, uncomplicated; Z86.718 Personal history of other venous thrombosis and embolism; Z79.82 Long term (current) use of aspirin; Z79.01 Long term (current) use of anticoagulants; Z79.899 Other long term (current) drug therapy; Z20.822 Contact with and (suspected) exposure to COVID-19; Z20.828 Contact with and (suspected) exposure to other viral communicable diseases
CPT/HCPCS: 0241U; 36415; 71045; 80053; 83735; 85025; 93005; 99283; 99285

== ENCOUNTER → 2023-03-24 19:20 | Outpatient (BNV) | payer MEDICARE, MEDICAID, SELFPAY | PROVIDERS: Emergency Provider Emergency Medicine; Visit Provider Internal Medicine Cardiovascular Disease | DX: I49.3 Ventricular premature depolarization (principal) | CPT/HCPCS: 93010 ==

== ENCOUNTER 2023-04-06 08:14 | Day surgery (SDC) | payer MEDICARE, MEDICAID, SELFPAY ==
--- NOTE | ~2023-04-06 | CT_ITS ---
PROCEDURE: CT GUIDED BIOPSY, LUNG CLINICAL INFORMATION: Mass in the left lower lobe noted on previous CT scan dated 03/10/2023 COMPARISON: 03/10/2023 TECHNIQUE: Repeat images of the chest demonstrates a persistent 3 x 4 cm pleural-based mass in the left lower lobe. The skin was prepped and draped in usual fashion. 1% Xylocaine was used for local anesthetic. An 18-gauge Temno core biopsy needle was then placed from a posterior approach into the lesion in the left lower lobe. 4 core biopsy specimens were obtained. A follow-up CT scan demonstrates no evidence of a pneumothorax. This CT examination was performed using dose optimization techniques as appropriate, variously including the following: *Automated exposure control *Adjustment of mA and/or kV according to patient size (this includes techniques or standardized protocols for targeted exams where dose is matched to indication/reason for exam; i.e. extremities or head) *Use of iterative reconstruction technique FINDINGS: 3x4 cm mass in the left lower lobe CT/CT biopsy lung LT IMPRESSION: CT-guided biopsy of the mass in the left lower lobe
[2023-04-06 09:58] VITALS: BMI 21.3
[2023-04-06 10:58] LABS: INTERNATIONAL NORM RATIO 0.9 (0.9-1.1); Prothrombin Time 10.5 SEC (11.1-13.3)
--- NOTE | 2023-04-06 11:00 | PC.NURSE ---
Patient presented to [facility] with a congested productive cough. States I went to the ED for this two weeks ago, I was diagnosed with an upper respiratory infection but not prescribed anything . ED note states this as well. Rad nurses Janine and Nikki made aware. Sa02 99% on room air, temp 97.4. Dr. Hughes made aware by Rad RNs. Patent has no issues with laying flat. Okay to proceed with procedure today.
[2023-04-06 11:01] LABS: Partial Thromboplastin Time 33.5 SEC (26.0-36.4)
[2023-04-06 12:25] VITALS: BP 146/81; PULSE 63; RESP 16; TEMP 36.3; O2SAT 98
[2023-04-06 12:40] VITALS: BP 156/93; PULSE 72; RESP 16; O2SAT 98
[2023-04-06 12:55] VITALS: BP 147/86; PULSE 78; RESP 18; O2SAT 97
[2023-04-06 13:10] VITALS: BP 168/87; PULSE 72; RESP 18; O2SAT 98
[2023-04-06 13:25] VITALS: BP 172/81; PULSE 75; RESP 20; TEMP 36.8; O2SAT 98
== END 2023-04-06 14:41 | disposition home or self-care (01) ==
PROVIDERS: Radiology Diagnostic Radiology; Radiology Vascular & Interventional Radiology; PCP Family Medicine; Visit Provider Radiology Diagnostic Radiology
DX: C34.32 Malignant neoplasm of lower lobe, left bronchus or lung (principal); F17.210 Nicotine dependence, cigarettes, uncomplicated; I13.2 Hypertensive heart and chronic kidney disease with heart failure and with stage 5 chronic kidney disease, or end stage renal disease; N18.6 End stage renal disease; I50.9 Heart failure, unspecified; Z99.2 Dependence on renal dialysis; I25.10 Atherosclerotic heart disease of native coronary artery without angina pectoris; Z95.1 Presence of aortocoronary bypass graft; I48.0 Paroxysmal atrial fibrillation; R53.83 Other fatigue; Z79.01 Long term (current) use of anticoagulants; Z79.82 Long term (current) use of aspirin; Z79.899 Other long term (current) drug therapy; Z88.1 Allergy status to other antibiotic agents; Z88.8 Allergy status to other drugs, medicaments and biological substances
CPT/HCPCS: 32408; 36415; 85610; 85730; 88305; 88341; 88342; 99152; J2250; J3010

== ENCOUNTER → 2023-04-06 10:53 | Outpatient (BNV) | payer MEDICARE, MEDICAID, SELFPAY | PROVIDERS: PCP Family Medicine; Visit Provider Radiology Vascular & Interventional Radiology | DX: R91.8 Other nonspecific abnormal finding of lung field (principal) | CPT/HCPCS: 32408 ==

== ENCOUNTER 2023-04-18 13:18 | Outpatient (REF) | payer MEDICARE, MEDICAID, SELFPAY ==
--- NOTE | ~2023-04-18 | PE_ITS ---
EXAMINATION: Fluorine-18 FDG PET/CT Scan CLINICAL INDICATION: Initial treatment management. Non-small cell left lung cancer. PROCEDURE: 60 minutes following the intravenous administration of 13.2 mCi of fluorine 18 FDG, images from the base of the skull to the mid thighs were obtained using a combined PET/CT scanner with CT scan based attenuation correction. No intravenous contrast was administered. Transverse, coronal, sagittal, and volume reconstruction projections were obtained. The patient's blood glucose as determined by a finger stick, was 71 mg/dl immediately prior to injection. The radiotracer was injected intravenously through the right antecubital superficial vein, without any complications. Total CT exam dose-length product 365.44 mGy-cm * These CT images were obtained using dose optimization techniques as appropriate, variously including the following: Automated exposure control * Adjustment of mA and/or kV according to patient size (this includes techniques or standardized protocols for targeted exams where dose is matched to indication/reason for exam; i.e. extremities or head) * Use of iterative reconstruction technique COMPARISON: CT of the chest done on 03/10/[address]-guided left lower lobe lung mass biopsy done on 04/06/2023. FINDINGS: NECK AND VISUALIZED HEAD: No suspicious FDG avid disease. Specifically, no evidence of any FDG avid, pathologically enlarged, metabolically active cervical including supraclavicular lymphadenopathy present. THORAX: The index biopsy proved malignancy in the form of solid oval-shaped pleural-based soft tissue mass at left lower lobe posteromedially is reidentified, currently measures 3.8 x 3.0 cm with SUV max of 17.0 (91/223), consistent with known malignancy. Emphysematous disease is present bilaterally. Previously documented multifocal additional 5 mm or smaller bilateral lung nodules are reidentified however do not show any FDG avidity, too small for accurate characterization on this study. Small focus of FDG avidity is noted in the region of the aortopulmonary window with SUV max of 4.3 (78/223), likely represent a small lymph node versus artifact from adjacent surgical clips. There are no other additional metabolically active tracer avid disease identified within the mediastinum or hilar region to suspect adenopathy. There are no FDG avid internal mammary or axillary lymphadenopathy or pleural or pericardial effusion. Incidental note is made of a large bore catheter placed from the left internal jugular approach with its tip seen at the level of the cavoatrial junction, presumably represent dialysis catheter. Note is also made of postoperative changes within the mediastinum and left atrial appendages clipping. ABDOMEN AND PELVIS: No FDG avid focal liver or splenic or adrenal disease. Layering gallstones are present within the gallbladder without evidence of any biliary obstruction or acute cholecystitis. The pancreas appear unremarkable. Both kidneys are atrophic. There are multiple superimposed photopenic presumed cysts present bilaterally within the kidneys (right greater than left). The right-sided large bowel is low-lying cecum located in the region of the right lower anterior pelvis, shows focal area of increased radiotracer avidity with SUV max of 6.4 (189/223), for which direct visualization/colonoscopy is recommended, if not recently performed for further clarification. The remainder of the large bowel otherwise appear unremarkable. The small bowel loops are decompressed. The stomach shows mild FDG avidity likely represent inflammatory changes. Note is also made of small sliding hiatal hernia. There are no FDG avid retroperitoneal, mesenteric, pelvic and/or groin lymphadenopathy. MUSCULOSKELETAL: Postsurgical changes of right shoulder arthroplasty are noted with intact hardware. Severe osteoarthrosis at left shoulder. Postsurgical changes with intact hardware is seen within the visualized proximal right femur. Multilevel moderate degenerative spondylosis mid to lower thoracic spine and lower cervical spine. Postoperative changes of sternotomy. VASCULAR: Extensive calcific atherosclerotic disease of the aorta and its branches including carotid and coronary arterial calcifications. No evidence of aneurysm. SUV max OF MEDIASTINAL BLOOD POOL: 2.4 SUV max OF LIVER: 3.0 THE SITE(S) OF MOST INTENSE FDG AVIDITY AND SUV MAX: The index biopsy proved malignancy at left lower lobe of the lung with SUV max of 17.0. PET/PET CT fusion skull to thigh IMPRESSION: 1. The index biopsy proved malignancy at left lower lobe of the lung shows intense tracer avidity with SUV max of 17.0, consistent with biopsy proved malignancy. 2. Previously documented multifocal additional 5 mm or smaller bilateral lung nodules do not show any radiotracer avidity, are too small for accurate characterization. 3. Moderate emphysematous disease. 4. Solitary focus of tracer avidity is noted in the region of the left-sided aortopulmonary window, may represent a small FDG avid lymph node versus artifact arising from the adjacent surgical clips. 5. There are no other additional metabolically active tracer avid disease identified within the mediastinal, hilar region or within the internal mammary or axillary region to suspect lymphadenopathy. 6. Small focus of FDG avidity involving the region of the cecum without any CT correlate, for which direct visualization/colonoscopy is recommended. 7. Mild FDG avidity involving the stomach likely represent inflammatory process/reflux/gastritis and is associated with small sliding hiatal hernia. 8. Postsurgical changes with intact hardware at right shoulder and right hip. 9. Severe osteoarthrosis of left shoulder.
== END 2023-04-18 13:19 | disposition home or self-care (01) ==
LOC: HO.PET 13:18
PROVIDERS: PCP Family Medicine; Visit Provider Internal Medicine
DX: Z13.89 Encounter for screening for other disorder (principal)

== ENCOUNTER 2023-04-19 21:12 | Inpatient (IN) | payer MEDICARE, MEDICAID, SELFPAY ==
--- NOTE | ~2023-04-19 | CT_ITS ---
EXAMINATION: CT HEAD WITHOUT CONTRAST CLINICAL INFORMATION: Head injury. COMPARISON: 03/10/2023 TECHNIQUE: Contiguous axial imaging was performed from the skull base to vertex without intravenous administration of contrast. This CT examination was performed using dose optimization techniques as appropriate, variously including the following: *Automated exposure control *Adjustment of mA and/or kV according to patient size (this includes techniques or standardized protocols for targeted exams where dose is matched to indication/reason for exam; i.e. extremities or head) *Use of iterative reconstruction technique DLP: 686 mGy-cm FINDINGS: There is no evidence of acute intracranial hemorrhage or large territorial infarction. No mass effect or midline shift is seen. No extra-axial fluid collections are identified. Moderate to severe chronic white matter microangiopathic changes noted with generalized parenchymal volume loss and concordant ex vacuo dilatation of the ventricles. The mastoid air cells and visualized portions of the paranasal sinuses are well aerated. CT/CT head/brain wo IV con IMPRESSION: No acute intracranial pathology.
--- NOTE | ~2023-04-19 | XR_ITS ---
EXAMINATION: XR KNEE, LEFT CLINICAL INFORMATION: Fall. Pain. COMPARISON: None available. TECHNIQUE: Four views of the left knee. FINDINGS: There is a displaced comminuted distal left femoral fracture just above the knee prosthesis with mild overlap. The prosthesis is in place. There is a small joint effusion. There is atherosclerotic plaque of arterial vessels. XR/XR knee LT 2V IMPRESSION: Displaced comminuted overlapping distal femoral periprosthetic fracture.
--- NOTE | ~2023-04-19 | XR_ITS ---
EXAMINATION: XR HIP, LEFT CLINICAL INFORMATION: Fall. Pain. COMPARISON: None available. TECHNIQUE: Two views of the left hip. FINDINGS: The bony structures are osteopenic. The left femur is rotated medially. No fracture is seen. The soft tissues are unremarkable XR/XR hip LT w PEL1V IMPRESSION: Medial rotation of the left hip limiting evaluation. No acute osseous abnormality seen.
--- NOTE | ~2023-04-19 | FL_ITS ---
EXAMINATION: XR FLUOROSCOPY WITH IMAGES CLINICAL INFORMATION: Femur fracture COMPARISON: Previous x-ray 04/20/2023 TECHNIQUE: Fluoroscopy Supervised By: Dr. Ryan Tripp. Fluoroscopy Time: 0.7 minutes. Cumulative Dose: 5.8 mGy. DAP: 0.1 Gycm2. Images: 5. FINDINGS: Images demonstrate a new intramedullary charity and single proximal cortical screw and 3 distal cortical screws transfixing the distal femoral shaft or supracondylar left femoral periprosthetic fracture. There is a 3 component left knee replacement. FL/FL guidance in OR IMPRESSION: Fluoroscopy guidance for ORIF of left distal femoral shaft/supracondylar periprosthetic fracture.
--- NOTE | ~2023-04-19 | XR_ITS ---
EXAMINATION: XR CHEST CLINICAL INFORMATION: Fall. Preoperative. COMPARISON: 03/24/2023 TECHNIQUE: Frontal view of the chest was obtained. FINDINGS: The cardiomediastinal silhouette is stable. A central catheter is noted in a stable position. There has been a previous median sternotomy. There is mild diffuse increased central markings. There is no focal consolidation or pleural effusion. Old left-sided rib fractures are noted. XR/XR chest 1V IMPRESSION: 1. Mild diffuse increased markings similar to previous. 2. No evidence for active cardiopulmonary disease.
[2023-04-19 21:31] VITALS: BP 117/54; PULSE 61; RESP 20; TEMP 37; O2SAT 97
[2023-04-19 21:33] VITALS: BP 143/82; PULSE 68
[2023-04-19 21:36] VITALS: RESP 12; BMI 22.5
[2023-04-19 22:32] VITALS: BP 118/57; PULSE 59; RESP 20; O2SAT 98
--- NOTE | 2023-04-19 23:44 | ED_ITS ---
HPI - Fall General Chief Complaint: Fall Stated Complaint: FALL Time Seen by Provider: 04/19/23 23:19 Source: patient and EMS Mode of arrival: EMS Limitations: no limitations History of Present Illness HPI Narrative: 73-year-old female came in for evaluation of left knee/left hip pain after a fall at home. Patient had total left knee replacement many years ago her left knee gave out made her fall down on her left side patient declined head injury or LOC patient is taking Eliquis for atrial fibrillation, history is significant for ESR on HD M/W/F she was feeling tired and couldn't have the dialysis done, complaining of left hip pain and left knee pain. No headache, no neck pain, no weakness, no numbness, no CP, no SOB, no abdominal pain, no vomiting, nausea, no diarrhea. Related Data Home Medications Medication Instructions Recorded Confirmed amlodipine 10 mg tablet 10 mg PO DAILY@1400 08/10/20 04/20/23 acetaminophen 500 mg tablet 500 - 1,000 mg PO BID PRN Pain 10/30/22 04/20/23 clonidine 0.2 mg/24 hr weekly 1 patch topical SA 10/30/22 04/20/23 transdermal patch trazodone 100 mg tablet 1 tab PO BEDTIME 10/30/22 04/20/23 gabapentin 300 mg capsule 300 mg PO DAILY 11/09/22 04/20/23 furosemide 40 mg tablet (Lasix) 40 mg PO TUTHSA 03/07/23 04/20/23 lisinopril 20 mg tablet 20 mg PO BID 03/07/23 04/20/23 aspirin 81 mg chewable tablet 81 mg PO DAILY 03/10/23 04/20/23 fluoxetine 20 mg capsule 20 mg PO DAILY 03/15/23 04/20/23 nitroglycerin 0.4 mg/hr 0.4 mg transdermal DAILY@0400 04/20/23 04/20/23 transdermal 24 hour patch sevelamer carbonate 800 mg tablet 800 mg PO TIDWM 04/20/23 04/20/23 Previous Rx's Medication Instructions Recorded carvedilol 12.5 mg tablet 12.5 mg PO BID #120 tabs 03/07/23 apixaban 2.5 mg tablet (Eliquis) 2.5 mg PO BID #60 tabs 04/05/23 rosuvastatin 20 mg tablet 20 mg PO DAILY #30 tabs 04/05/23 Allergies Allergy/AdvReac Type Severity Reaction Status Date / Time atenolol [ATENOLOL] Allergy Severe DIFF Verified 04/06/23 09:59 BREATHING, heart races. doxycycline Allergy Severe Anaphylaxis Verified 04/06/23 09:59 duloxetine Allergy Severe Anaphylaxis Verified 04/06/23 09:59 amphetamine [Adderall] AdvReac Severe shortness Verified 04/06/23 09:59 of breath dextroamphetamine [Adderall] AdvReac Severe shortness Verified 04/06/23 09:59 of breath Review of Systems 2 Review of Systems: All other systems are reviewed and are negative Constitutional: Reports as per HPI and Reports no additional constitutional complaints Eyes: Reports as per HPI and Reports no additional eye complaints Reports system reviewed and no additional complaints, except as documented Cardiovascular: Reports as per HPI and Reports no additional cardiovascular complaints Respiratory: Reports as per HPI and Reports no additional respiratory complaints Gastrointestinal: Reports as per HPI and Reports no additional gastrointestinal complaints Genitourinary: Reports no additional female genitourinary complaints Musculoskeletal: Reports no additional musculoskeletal complaints Skin/Breast: Reports system reviewed and no additional complaints, except as docu Psychiatric: Reports no additional psychiatric complaints Endocrine: Reports no additional endocrine complaints Hematologic/Lymphatic: Reports no additional hematologic/lymphatic complaints Allergic/Immunologic: Reports no additional allergic/immunologic complaints Reports system reviewed and no additional complaints, except as documented and Reports Abnormal speech present [facility] Past Medical History Medical History Anemia Aortic stenosis Asthmatic bronchitis Atherosclerotic cardiovascular disease CAD (coronary artery disease) CKD (chronic kidney disease), stage IV Depression ESRD (end stage renal disease) GERD (gastroesophageal reflux disease) History of DVT (deep vein thrombosis) History of ectopic History of non-ST elevation myocardial infarction (NSTEMI) (~12/2020) Hypertension Interstitial lung disease Osteopenia PAF (paroxysmal atrial fibrillation) (~12/2020) Surgical History History of carpal tunnel release of both wrists History of colonoscopy History of coronary artery bypass graft x 3 History of left knee replacement History of rectopexy History of total replacement of right shoulder joint S/P arteriovenous (AV) fistula creation Family History Family History Father No problems noted. Mother Myocardial infarction Social History Social History Household Members: Spouse and Children Housing: House Do you presently have visiting nurse or other home services: Yes Alcohol intake: current Alcohol intake frequency: does not drink Patient Tobacco Use Status: Current everyday Tobacco user Tobacco use type: Cigarette Smoked in Last 30 Days: Yes Second Hand Smoke Exposure: No Use of substances other than those prescribed or required for medical reasons: No Advance Directives: Yes Advance Directives on File: Yes Advance Directives Date on File: 03/10/23 service: No Current occupational status: retired Current occupation: young,right handed Physical Exam 2 Vital Signs: Vital Signs: Last Vital Signs Temp 98.6 F 04/19/23 21:31 Pulse 62 04/20/23 08:58 Resp 16 04/20/23 08:58 BP 125/63 04/20/23 08:58 Pulse Ox 95 04/20/23 08:58 O2 Del Method Room Air 04/20/23 08:58 BMI result Body Mass Index 22.5 Vital signs have been reviewed as appeared to be correct. Blood pressure normal. Heart rate normal. Respiration rate normal. Temperature normal. Oxygen saturation normal. Appearance: Alert. Oriented X3. No acute distress. Head: Normal external exam. Normocephalic. Atraumatic. No Sheldon signs noted. No raccoon eyes noted Eyes: PERRLA. EOMI. Conjunctiva and sclera normal. Eyelids normal. ENT: TM's Normal. Pharynx normal. Uvula midline. Moist mucous membranes. No trismus noted. No drooling noted. No muffled voice noted. Neck: Normal inspection. Neck supple. FROM. No adenopathy. Thyroid Normal. No meningeal signs. No neck mass noted. CVS: Normal heart rate and rhythm. Heart sound normal. No murmurs noted. Pulses normal throughout. Respiratory: No respiratory distress. Painless inspiration. Breath sounds normal. No wheezes/rales/rhonchi noted. Chest nontender. No accessory muscle usage noted or decreased air movement noted. Abdomen: Soft and nontender. Bowel sounds normal in all 4 quadrants. No distention noted. No organomegaly noted. No visible injury noted. Back: No CVA tenderness. Full range of motion noted. Skin: Skin warm and dry. Normal skin color. Normal skin turgor. No rashes/lesions/lacerations noted. Extremities: Left knee held in the flexion position cannot be extended due to pain with left knee fusion, left hip pain held in the flexion position no step- off or deformity is palpable. Neuro: Oriented X 3. Cranial nerve exam: II-XII are grossly intact No motor deficit. No sensory deficit. Reflexes normal. Course Course Course Narrative: 73-year-old female s/p mechanical fall with left knee fracture the case was discussed with Lindsey from Ortho needs to review the case with the attending could be a complicated fracture might need a transfer to a different hospital, case signed out to Dr. Ramirez. Chronic renal failure on hemodialysis M/W/F patient missed her last dialysis yesterday because she was tired and was unable to go, with hyperkalemia with no EKG changes. Reevaluation(s) Reevaluation #1: orthopedics aware plan for surgery on Monday. Dr. Lopez aware will try to get HD today calcium and lokelma ordered, albuterol patient tells me she did hit her head is on eliquis no LOC I have ordered a head CT Medications Administered Discontinued Medications Generic Name Dose Route Start Last Admin Trade Name Freq PRN Reason Stop Dose Admin Albuterol Sulfate 2.5 mg 04/20/23 07:09 04/20/23 07:23 Albuterol Sulfate (0.083%) 2.5 Mg/3 Ml Vial.Neb INHALE 04/20/23 07:10 2.5 mg ONCE ONE Administration Hydromorphone HCl 2 mg 04/20/23 00:28 04/20/23 00:33 Hydromorphone Hcl 2 Mg/Ml Vial IM 04/20/23 00:29 2 mg ONCE ONE Administration Protocol Calcium Gluconate 2 gm in 100 mls @ 50 mls/hr 04/20/23 07:08 04/20/23 07:49 Calcium Gluconate IV 04/20/23 09:07 50 mls/hr ONCE ONE Administration Oxycodone HCl 5 mg 04/19/23 23:30 04/19/23 23:53 Oxycodone Hcl Immed Release 5 Mg Tablet PO 04/19/23 23:31 5 mg ONCE ONE Administration Oxycodone HCl 10 mg 04/20/23 10:29 04/20/23 10:35 Oxycodone Hcl Immed Release 5 Mg Tablet PO 04/20/23 10:30 10 mg ONCE ONE Administration Sodium Zirconium Cyclosilicate 5 gm 04/20/23 07:08 04/20/23 07:32 Sodium Zirconium Cyclosilicate 5 Gm Powd.Pack PO 04/20/23 07:09 5 gm ONCE ONE Administration Medical Decision Making Differential Diagnosis Differential Diagnoses: The differential diagnosis associated with the presentation includes (Knee fracture, left hip fracture, electrolyte abnormality, severe anemia.) Admission/Observation Consideration of admission/observation: Escalation of care including admission/observation considered Consult Healthcare Provider Management of the patient was discussed with: Rehabilitation Aide/Scheduler (Lindsey) Lab Data MDM Lab Attestation statement: I reviewed the patient's lab results. 04/20/23 03:48 04/20/23 03:48 Labs: Lab Results 04/20/23 Range/Units 03:48 WBC 10.9 H (4.8-10.8) X10*3/uL RBC 2.91 L (4.20-5.50) X10*6/uL Hgb 9.6 L (12.0-16.0) g/dl Hct 29.1 L (37.0-47.0) % MCV 100.0 H (80.0-98.0) fL MCH 33.0 (27.0-33.0) pg MCHC 33.0 (31.0-35.0) g/dl RDW 13.9 (11.0-16.0) % Plt Count 133 L D (160-400) X10*3/uL MPV 9.5 (9.4-12.3) fL Immature Gran % (Auto) 0.6 H (0.0-0.4) % Neut % (Auto) 79.1 H (45-73) % Lymph % (Auto) 13.7 L (20-40) % Alpine % (Auto) 6.1 (2-11) % Eos % (Auto) 0.2 (0-4) % Baso % (Auto) 0.3 (0-2) % Lymph # (Auto) 1.5 (1.2-4.9) X10*3/uL Alpine # (Auto) 0.7 (0.1-1.2) X10*3/uL Eos # (Auto) 0.0 (0.0-0.4) X10*3/uL Baso # (Auto) 0.0 (0.0-0.2) X10*3/uL Abs Immat Gran (auto) 0.07 H (0.00-0.03) X10*3/uL Absolute Neuts (auto) 8.6 H (2.0-8.3) x10*3/uL Absolute Nucleated RBC 0.000 (0.0-0.012) X10*3/uL Nucleated RBC % (auto) 0.0 (0.0-0.2) /100WBC Sodium 135 (135-145) mmol/L Potassium 6.4 H* D (3.3-5.1) mmol/L Chloride 100 (96-108) mmol/L Carbon Dioxide 19 L (22-29) mmol/L Anion Gap 22 H (12-20) BUN 70 H (9-16) mg/dL Creatinine 7.94 H* (0.5-1.4) mg/dL Estim Creat Clear Calc 4.6 Estimated GFR 5 Random Glucose 109 (60-115) mg/dL Calcium 8.1 L (8.4-10.2) mg/dL Lipase 75 (8-78) U/L Independent Interpretation I performed an independent interpretation of an: Plain X-Ray (Hip/knee/chest:Displaced comminuted overlapping distal femoral periprosthetic fracture. ) Radiology Impression Discussion of test interpretation with radiology: I have reviewed the radiologist's reading. (Displaced comminuted overlapping distal femoral periprosthetic fracture. ) Chronic Conditions Patient?s care impacted by: Other (previous left knee surgery/ ESRD.) Discharge Plan Discharge Clinical Impression: Closed left femoral fracture, Acute hyperkalemia Patient Disposition: Admitted As Inpatient
[2023-04-19] MEDS: oxyCODONE HCl Immed Release 5 MG TABLET PO (23:53)
--- NOTE | 2023-04-19 23:59 | PC.NURSE ---
Pt medicated per oct. Pt ca&ox4. Plan of care ongoing.
[2023-04-20] VITALS (10 sets, daily range): BP systolic 98–159; BP diastolic 48–71; PULSE 58–79; RESP 12–22; TEMP 36.6–36.8; O2SAT 92–99; BMI 22.6
--- NOTE | 2023-04-20 00:20 | PC.NURSE ---
CT with pt. plan of care ongoing.
[2023-04-20] MEDS: HYDROmorphone HCl 2 MG/ML VIAL IM (00:33)
--- NOTE | 2023-04-20 00:39 | PC.NURSE ---
Pt medicated per oct. Plan of care ongoing.
--- NOTE | 2023-04-20 02:12 | PC.NURSE ---
Pt reporting some effectiveness to pain meds with current 7/10 left knee pain. Plan of care ongoing.
--- NOTE | 2023-04-20 03:15 | ECG_ITS ---
Test Reason : FALL Blood Pressure : / mmHG Vent. Rate : 062 BPM Atrial Rate : 062 BPM P-R Int : 212 ms QRS Dur : 100 ms QT Int : 466 ms P-R-T Axes : 069 -34 060 degrees QTc Int : 472 ms Sinus rhythm with 1st degree A-V block Left axis deviation Abnormal ECG When compared with ECG of 24-MAR-2023 19:27, Incomplete right bundle branch block is no longer Present Referred By: Chitra Torres Electronically Signed By:KELSEY DEGROOT
[2023-04-20 03:51] LABS: MANUAL DIFF FLAG NO
[2023-04-20 03:52] LABS: Basophils Percent Auto 0.3 % (0-2); Eosinophils Percent Auto 0.2 % (0-4); Hematocrit 29.1 % (37.0-47.0); Hemoglobin 9.6 g/dl (12.0-16.0); Imm Gran Abs Auto 0.07 X10*3/uL (0.00-0.03); Imm Gran Pct Auto 0.6 % (0.0-0.4); Lymphocytes Absolute Auto 1.5 X10*3/uL (1.2-4.9); Lymphocytes Percent Auto 13.7 % (20-40); Mean Platelet Volume 9.5 fL (9.4-12.3); Monocytes Absolute Auto 0.7 X10*3/uL (0.1-1.2); Monocytes Percent Auto 6.1 % (2-11); Neutrophils Absolute Auto 8.6 x10*3/uL (2.0-8.3); Neutrophils Percent Auto 79.1 % (45-73); Platelet Count 133 X10*3/uL (160-400); Red Blood Count 2.91 X10*6/uL (4.20-5.50); Red Cell Distribution Width 13.9 % (11.0-16.0); White Blood Count 10.9 X10*3/uL (4.8-10.8)
[2023-04-20 06:39] LABS: Anion Gap 22 (12-20); Blood Urea Nitrogen 70 mg/dL (9-16); Calcium 8.1 mg/dL (8.4-10.2); Carbon Dioxide 19 mmol/L (22-29); Chloride 100 mmol/L (96-108); Creatinine Clr Calc Pharmacy 4.6; Estimated Glomerular Filt Rate 5; Glucose Random 109 mg/dL (60-115); Lipase 75 U/L (8-78); Potassium 6.4 mmol/L (3.3-5.1); Sodium 135 mmol/L (135-145)
[2023-04-20] MEDS: Albuterol Sulfate (0.083%) 2.5 MG/3 ML VIAL.NEB INHALE (07:23)
[2023-04-20] MEDS: Sodium Zirconium Cyclosilicate 5 GM POWD.PACK PO (07:32)
[2023-04-20] MEDS: Calcium Gluconate/NaCl,Iso-Osm 2 GM/100 ML PLAST..BAG IV (07:49)
[2023-04-20] MEDS: oxyCODONE HCl Immed Release 5 MG TABLET 10 MG PO (10:35)
--- NOTE | 2023-04-20 10:40 | PC.NURSE ---
pt's IV pump was never plugged in after pt returned from scan. pump and pt med not fully administered. pt has 1 hr 7 min left of infusion. MD way aware and ok to send pt to dialysis with IV infusion going to finish there. pt a&o x4, pleasant, calm, and cooperative. complaining of 10/10 knee pain. medicated per mar for pain.
--- NOTE | 2023-04-20 10:44 | PC.NURSE ---
pt transported to dialysis
--- NOTE | 2023-04-20 11:16 | P.HPHOSP_ITS ---
History of Present Illness Date of Service: 04/20/23 Attending physician on admission: Gallo Mark Chief Complaint: Fall at home Pt is a 73-year-old female with a PMH significant for?paroxysmal AFib on Eliquis, ESRD on hemodialysis (M/W/F), carotid stenosis, CAD s/p CABG, interstitial lung disease, HTN, HFrEF, and recently diagnosed adenocarcinoma of left lower lung (05/11/2023) who presents to the ED with?left knee and hip pain after a fall at home. Patient was sleeping last night when her called to her to help him find his phone which had dropped under his bed. Patient and sleep in separate rooms. Patient states she got up but her ?knees felt wobbly? and she initially fell back onto the bed. After resting for a short period of time she stood up again and walked to the hallway where her knees again ?felt wobbly? and patient fell in the hallway, hitting the back of her head on the floor. Denies lightheadedness, dizziness, loss of consciousness. Patient immediately felt sharp pain in her left leg and hip and was unable to stand or move her lower leg. Patient states she has been feeling more tired lately than normal and has had persistent congestion, cough, and productive cough. Of note, pt was admitted to the hospital on 03/10/2023 for fatigue and missed dialysis and found to have a left lower lobe lung mass that was eventually biopsied and found out to be adenocarcinoma In the ED patient was afebrile with occasionally soft BP as low as 98/53. Labs were significant for leukocytosis at 10.9, H&H 9.6/29.1, MCV 100.0, potassium 6.4, BUN 70, creatinine 7.94, calcium 8.1. CXR showed mild diffuse increased markings similar to previous with no evidence of active cardiopulmonary disease. X-ray of hip and pelvis showed medial rotation of left hip limiting evaluation with no acute osseous abnormality seen. Left knee x-ray found displaced comminuted overlapping distal femoral periprosthetic fracture. CT?of head found no acute intracranial pathology. EKG demonstrated sinus rhythm with first-degree AV block with no evidence of ST elevations or depressions or tall peeked T- waves. Pt was treated with oxycodone, hydromorphone, albuterol, Lokelma, and calcium gluconate. Pt will be admitted to the hospital for treatment and further evaluation of broken left femur with likely surgical procedure and missed dialysis with emergent dialysis. Review of Systems 2 Review of Systems: Left leg and knee pain s/p fall at home Head strike on floor with associated minor pain at back of head Fatigue Denies lightheadedness or dizziness No fever, chills, N/V Denies chest pain/pressure, palpitations No abdominal pain Yes all other systems are reviewed and are negative [facility] Medical History History of DVT (deep vein thrombosis) History of non-ST elevation myocardial infarction (NSTEMI) (~12/2020) Osteopenia ESRD (end stage renal disease) Interstitial lung disease Atherosclerotic cardiovascular disease Aortic stenosis CAD (coronary artery disease) PAF (paroxysmal atrial fibrillation) (~12/2020) Anemia Asthmatic bronchitis GERD (gastroesophageal reflux disease) CKD (chronic kidney disease), stage IV History of ectopic Depression Hypertension Family History Father No problems noted. Mother Myocardial infarction Surgical History History of coronary artery bypass graft x 3 S/P arteriovenous (AV) fistula creation History of colonoscopy History of total replacement of right shoulder joint History of rectopexy History of left knee replacement History of carpal tunnel release of both wrists Social History Household Members: Spouse Housing: House Do you presently have visiting nurse or other home services: No Alcohol intake: current Alcohol intake frequency: does not drink Patient Tobacco Use Status: Current everyday Tobacco user Tobacco use type: Cigarette Cigarettes Per Day: 4 Smoked in Last 30 Days: Yes Patient Interested in Nicotine Replacement: Yes Second Hand Smoke Exposure: No Use of substances other than those prescribed or required for medical reasons: No Have you been hit, kicked, punched, or otherwise hurt by someone within the past year? If so, by whom?: No Do you feel safe in your current relationship?: Yes Is there a partner from a previous relationship who is making you feel unsafe now?: No Are you made to feel afraid or neglected: No Advance Directives: Yes Advance Directives on File: Yes Advance Directives Date on File: 03/10/23 Do you have thoughts of harming others: None Do you have a plan to hurt others: No Plan Recently lost weight without trying: No Eating poorly because of decreased appetite: No Patient : No service: No Current occupational status: retired Current occupation: young,right handed Meds Allergies Allergy/AdvReac Type Severity Reaction Status Date / Time atenolol [ATENOLOL] Allergy Severe DIFF Verified 04/06/23 09:59 BREATHING, heart races. doxycycline Allergy Severe Anaphylaxis Verified 04/06/23 09:59 duloxetine Allergy Severe Anaphylaxis Verified 04/06/23 09:59 amphetamine [Adderall] AdvReac Severe shortness Verified 04/06/23 09:59 of breath dextroamphetamine [Adderall] AdvReac Severe shortness Verified 04/06/23 09:59 of breath Home Medications Medication Instructions Recorded Confirmed Last Taken Type amlodipine 10 mg tablet 10 mg PO DAILY@1400 08/10/20 04/20/23 04/19/23 History acetaminophen 500 mg tablet 500 - 1,000 mg PO BID PRN Pain 10/30/22 04/20/23 04/19/23 History clonidine 0.2 mg/24 hr weekly 1 patch topical SA 10/30/22 04/20/23 04/19/23 History transdermal patch trazodone 100 mg tablet 1 tab PO BEDTIME 10/30/22 04/20/23 04/19/23 History gabapentin 300 mg capsule 300 mg PO DAILY 11/09/22 04/20/23 04/19/23 History furosemide 40 mg tablet (Lasix) 40 mg PO TUTHSA 03/07/23 04/20/23 04/18/23 History lisinopril 20 mg tablet 20 mg PO BID 03/07/23 04/20/23 04/19/23 History aspirin 81 mg chewable tablet 81 mg PO DAILY 03/10/23 04/20/23 04/19/23 History fluoxetine 20 mg capsule 20 mg PO DAILY 03/15/23 04/20/23 04/19/23 History nitroglycerin 0.4 mg/hr 0.4 mg transdermal DAILY@0400 04/20/23 04/20/23 04/19/23 History transdermal 24 hour patch sevelamer carbonate 800 mg tablet 800 mg PO TIDWM 04/20/23 04/20/23 04/19/23 History Physical Exam 2 Vital Signs and Narrative: Vital Signs: Last Vital Signs Temp 98.6 F 04/19/23 21:31 Pulse 62 04/20/23 08:58 Resp 16 04/20/23 08:58 BP 125/63 04/20/23 08:58 Pulse Ox 95 04/20/23 08:58 O2 Del Method Room Air 04/20/23 08:58 BMI result Body Mass Index 22.5 General: AOx3, no acute distress Head: Tenderness to palpation of back of head, no signs of laceration, ecchymosis, hematoma Resp: CTA bilaterally CVS: S1, S2, RRR, 2/6 systolic murmur GI: +BS, NT, no distention Skin: No rash Neuro: Cranial nerves II-XII grossly intact bilaterally. Motor grossly intact bilaterally Extremities: left leg externally rotated, tenderness and swelling to left knee and distal left femur Psych: Appropriate affect Results Labs 04/20/23 03:48 04/20/23 03:48 Labs: Laboratory Results - last 24 hr 04/20/23 03:48 MCV 100.0 H MCH 33.0 MCHC 33.0 RDW 13.9 Plt Count 133 L D MPV 9.5 Immature Gran % (Auto) 0.6 H Neut % (Auto) 79.1 H Lymph % (Auto) 13.7 L [place] % (Auto) 6.1 Eos % (Auto) 0.2 Baso % (Auto) 0.3 Lymph # (Auto) 1.5 [place] # (Auto) 0.7 Eos # (Auto) 0.0 Baso # (Auto) 0.0 Abs Immat Gran (auto) 0.07 H Absolute Neuts (auto) 8.6 H Absolute Nucleated RBC 0.000 Nucleated RBC % (auto) 0.0 Anion Gap 22 H Estim Creat Clear Calc 4.6 Estimated GFR 5 Random Glucose 109 Calcium 8.1 L Lipase 75 Imaging Radiologist's Impressions: Impressions Chest X-Ray 04/20/23 03:25 IMPRESSION: 1. Mild diffuse increased markings similar to previous. 2. No evidence for active cardiopulmonary disease. Hip/Pelvis X-Ray 04/20/23 03:28 IMPRESSION: Medial rotation of the left hip limiting evaluation. No acute osseous abnormality seen. Knee X-Ray 04/20/23 03:28 IMPRESSION: Displaced comminuted overlapping distal femoral periprosthetic fracture. Head CT 04/20/23 08:37 IMPRESSION: No acute intracranial pathology. Assessment and Plan (1) Closed left femoral fracture: Status: Acute (2) Acute hyperkalemia: Status: Acute (3) Lung mass: Status: Acute (4) ESRD (end stage renal disease): Status: Acute (5) Hemodialysis patient: Status: Acute Plan Pt is a 73-year-old female with a PMH significant for?paroxysmal AFib on Eliquis, ESRD on hemodialysis (M/W/F), carotid stenosis, CAD s/p CABG, interstitial lung disease, HTN, HFrEF, and recently diagnosed adenocarcinoma of left lower lung (05/11/2023) who presents to the ED with?left knee and hip pain after a fall at home. Pt will be admitted to the hospital for treatment and further evaluation of broken left femur with likely surgical procedure and missed dialysis with emergent dialysis. Left femur fracture Left knee x-ray found displaced comminuted overlapping distal femoral periprosthetic fracture Pt with mechanical fall at home Analgesics for pain management Will be made NPO after midnight in anticipation for likely surgical procedure tomorrow Orthopedics consult Pneumatic boots for DVT prophylaxis Hyperkalemia Potassium 6.4 at time of presentation Pt received Lokelma and calcium gluconate in ED Pt asymptomatic, no EKG changes Will be receiving dialysis today Follow BMP ESRD on hemodialysis M/W/F Pt missed dialysis yesterday on Monday d/t feeling tired Nephrology consult Will receive emergent dialysis today Paroxysmal AFib Hold Eliquis d/t likely surgical procedure tomorrow Last took Eliquis last night on 04/19/2023 Hold carvedilol d/t soft BP HFrEF Not in acute exacerbation Hold home Lasix d/t soft BP HTN BP a little soft Will hold antihypertensives for now: Amlodipine, lisinopril, carvedilol Resume as warranted Anemia, chronic H&H 9.6/29.1, stable, around baseline Likely secondary to ESRD Follow CBC Lung mass Pt with recently diagnosed adenocarcinoma of left lung Follow up outpatient with oncology Full Code Attending:?Dr. Mark DVT Prophylaxis: Pneumatic boots d/t likely surgical procedure tomorrow Pt will require a hospitalization of at least two nights for treatment of?left periprosthetic femur fracture with likely surgical procedure tomorrow. Time Spent With Patient Time: Total time managing care of this patient today ____ minutes. Quality Stroke Does the patient have a stroke diagnosis?: No VTE Prior VTE?: No VTE Risk Level:: Medical - moderate - high VTE Device Contraindication: N/A - Device Ordered VTE Drug Contraindication: Treatment Not Indicated
--- NOTE | 2023-04-20 11:17 | PHA.MEDREC ---
Pharmacy Consult ? Medication Reconciliation Pharmacy has completed the medication reconciliation. PT takes nitro at 4 am and takes off at 4pm. Pt also is on clonidine once aweek on saturdays [facility]
--- NOTE | 2023-04-20 12:34 | P.CONOP_ITS ---
History of Present Illness HPI Consult date: 04/20/23 <Lindsey Richardson PA-C - Last Filed: 04/20/23 12:36> Chief complaint: Fractured left femur missed dialysis <Lindsey Richardson PA-C - Last Filed: 04/20/23 12:36> [facility] Past Medical History Medical History: Medical History History of DVT (deep vein thrombosis) History of non-ST elevation myocardial infarction (NSTEMI) (~12/2020) Osteopenia ESRD (end stage renal disease) Interstitial lung disease Atherosclerotic cardiovascular disease Aortic stenosis CAD (coronary artery disease) PAF (paroxysmal atrial fibrillation) (~12/2020) Anemia Asthmatic bronchitis GERD (gastroesophageal reflux disease) CKD (chronic kidney disease), stage IV History of ectopic Depression Hypertension <Lindsey Richardson PA-C - Last Filed: 04/20/23 12:36> Family History Family History: Family History Father No problems noted. Mother Myocardial infarction <Lindsey Richardson PA-C - Last Filed: 04/20/23 12:36> Surgical History Surgical History: Surgical History History of coronary artery bypass graft x 3 S/P arteriovenous (AV) fistula creation History of colonoscopy History of total replacement of right shoulder joint History of rectopexy History of left knee replacement History of carpal tunnel release of both wrists <IVY Weinstein Last Filed: 04/20/23 12:36> Social History Social History: Social History Household Members: Spouse Housing: House Do you presently have visiting nurse or other home services: No Alcohol intake: current Alcohol intake frequency: does not drink Patient Tobacco Use Status: Current everyday Tobacco user Tobacco use type: Cigarette Cigarettes Per Day: 4 Smoked in Last 30 Days: Yes Patient Interested in Nicotine Replacement: Yes Second Hand Smoke Exposure: No Use of substances other than those prescribed or required for medical reasons: No Currently Displaying Signs/Symptoms of Drug Intoxication Withdrawal: No Have you been hit, kicked, punched, or otherwise hurt by someone within the past year? If so, by whom?: No Do you feel safe in your current relationship?: Yes Is there a partner from a previous relationship who is making you feel unsafe now?: No Are you made to feel afraid or neglected: No Advance Directives: Yes Advance Directives on File: Yes Advance Directives Date on File: 03/10/23 Do you have thoughts of harming others: None Do you have a plan to hurt others: No Plan Recently lost weight without trying: No Eating poorly because of decreased appetite: No Patient : No service: No Current occupational status: retired Current occupation: young,right handed <Lindsey Richardson PA-C - Last Filed: 04/20/23 12:36> Meds Allergies/Adverse reactions: Allergies Allergy/AdvReac Type Severity Reaction Status Date / Time atenolol [ATENOLOL] Allergy Severe DIFF Verified 04/06/23 09:59 BREATHING, heart races. doxycycline Allergy Severe Anaphylaxis Verified 04/06/23 09:59 duloxetine Allergy Severe Anaphylaxis Verified 04/06/23 09:59 amphetamine [Adderall] AdvReac Severe shortness Verified 04/06/23 09:59 of breath dextroamphetamine [Adderall] AdvReac Severe shortness Verified 04/06/23 09:59 of breath <Lindsey Richardson PA-C - Last Filed: 04/20/23 12:36> Active Medications: Current Medications Acetaminophen (Acetaminophen 325 Mg Tablet) 650 mg PO Q6H PRN PRN Reason: Pain, Mild (Pain Scale 1-3) Docusate Sodium (Docusate Sodium 100 Mg Capsule) 100 mg PO DAILY PRN PRN Reason: Constipation Hydromorphone HCl (Hydromorphone Hcl 0.5 Mg/0.5 Ml Syringe) 0.25 mg IVPUSH Q4H PRN; Protocol PRN Reason: Pain, Severe (Pain Scale 7-10) Ondansetron HCl (Ondansetron Hcl 4 Mg/2 Ml Vial) 4 mg IVPUSH Q8H PRN PRN Reason: Nausea and Vomiting Oxycodone HCl (Oxycodone Hcl Immed Release 5 Mg Tablet) 5 mg PO Q4H PRN PRN Reason: Pain, Severe (Pain Scale 7-10) Sodium Chloride (0.9 % Sodium Chloride Flush 3 Ml Syringe) 3 ml IVFLUSH QSHIFT DIMITRY <Lindsey Richardson PA-C - Last Filed: 04/20/23 12:36> Home medications: Home Medications Medication Instructions Recorded Confirmed Last Taken Type amlodipine 10 mg tablet 10 mg PO DAILY@1400 08/10/20 04/20/23 04/19/23 History acetaminophen 500 mg tablet 500 - 1,000 mg PO BID PRN Pain 10/30/22 04/20/23 04/19/23 History clonidine 0.2 mg/24 hr weekly 1 patch topical SA 10/30/22 04/20/23 04/19/23 History transdermal patch trazodone 100 mg tablet 1 tab PO BEDTIME 10/30/22 04/20/23 04/19/23 History gabapentin 300 mg capsule 300 mg PO DAILY 11/09/22 04/20/23 04/19/23 History furosemide 40 mg tablet (Lasix) 40 mg PO TUTHSA 03/07/23 04/20/23 04/18/23 History lisinopril 20 mg tablet 20 mg PO BID 03/07/23 04/20/23 04/19/23 History aspirin 81 mg chewable tablet 81 mg PO DAILY 03/10/23 04/20/23 04/19/23 History fluoxetine 20 mg capsule 20 mg PO DAILY 03/15/23 04/20/23 04/19/23 History nitroglycerin 0.4 mg/hr 0.4 mg transdermal DAILY@0400 04/20/23 04/20/23 04/19/23 History transdermal 24 hour patch sevelamer carbonate 800 mg tablet 800 mg PO TIDWM 04/20/23 04/20/23 04/19/23 History <Lindsey Richardson PA-C - Last Filed: 04/20/23 12:36> Physical Exam 2 Vital Signs: Vital Signs: Last Vital Signs Temp 98.6 F 04/19/23 21:31 Pulse 62 04/20/23 08:58 Resp 16 04/20/23 08:58 BP 125/63 04/20/23 08:58 Pulse Ox 95 04/20/23 08:58 O2 Del Method Room Air 04/20/23 08:58 BMI result Body Mass Index 22.5 <IVY Weinstein Last Filed: 04/20/23 12:36> Results Labs Result Diagrams: 04/22/23 06:38 04/22/23 06:38 <IVY Weinstein Last Filed: 04/20/23 12:36> Labs: Abnormal lab results 04/20/23 Range/Units 03:48 WBC 10.9 H (4.8-10.8) X10*3/uL RBC 2.91 L (4.20-5.50) X10*6/uL Hgb 9.6 L (12.0-16.0) g/dl Hct 29.1 L (37.0-47.0) % MCV 100.0 H (80.0-98.0) fL Plt Count 133 L D (160-400) X10*3/uL Immature Gran % (Auto) 0.6 H (0.0-0.4) % Neut % (Auto) 79.1 H (45-73) % Lymph % (Auto) 13.7 L (20-40) % Abs Immat Gran (auto) 0.07 H (0.00-0.03) X10*3/uL Absolute Neuts (auto) 8.6 H (2.0-8.3) x10*3/uL Potassium 6.4 H* D (3.3-5.1) mmol/L Carbon Dioxide 19 L (22-29) mmol/L Anion Gap 22 H (12-20) BUN 70 H (9-16) mg/dL Creatinine 7.94 H* (0.5-1.4) mg/dL Calcium 8.1 L (8.4-10.2) mg/dL H & H 04/20/23 Range/Units 03:48 Hgb 9.6 L (12.0-16.0) g/dl Hct 29.1 L (37.0-47.0) % All other labs normal. <IVY Weinstein Last Filed: 04/20/23 12:36> Assessment and Plan (1) Closed left femoral fracture: Status: Acute <IVY eWinstein Last Filed: 04/20/23 12:36> I discussed the case with ( ) and explained the extent of the injury to the patient and options available which include surgical intervention. I explained the procedure in detail along with the length of recovery and rehab course. I explained the risk, benefits and alternatives. Risk including, but not limited to infection, blood clots, bleeding, non union or malunion and nerve/tissue damage to surrounding areas. I answered all their questions and with their understanding they have consented to move forward with Operative Fixation of ( ) . The patient will be T&S, med clearance obtained and NPO after midnight. <Lindsey Richardson PA-C - Last Filed: 04/20/23 12:36> Maryam is a patient well known to me who has a left periprosthetic femur fracture. I recommend retrograde nail. I discussed the risks benefits and alternatives including but not limited to the risk of pain, infection, stiffness, need for further surgery as well as potential medical complications such as blood clots, pulmonary embolism and cardiac complications. She has been cleared medically. She does have CHF, lung adenocarcinoma and dialysis dependant renal disease. She is optimized currently ( as of today) but is still high risk. I am of the opinion that she cannot tolerate laying in bed with a displaced distal femur fracture and that she was ambulatory before she fell. She understands these risks and agrees with plan. <Ryan Tripp MD - Last Filed: 04/22/23 14:30> Time Spent With Patient Time: Total time managing care of this patient today ____ minutes. <Lidnsey Richardson PA-C - Last Filed: 04/20/23 12:36> Procedures Date of Service Date of Service: 04/20/23 <Lindsey Richardson PA-C - Last Filed: 04/20/23 12:36> 04/22/23 <Ryan Tripp MD - Last Filed: 04/22/23 14:30>
[2023-04-20] MEDS: HYDROmorphone HCl 0.5 MG/0.5 ML SYRINGE 0.25 MG IVPUSH ×2 (15:00→20:35)
--- NOTE | 2023-04-20 15:00 | PC.NURSE ---
pt back from dialysis. to be medicated for knee pain via oct. pt placed back on bedside nurse monitoring. awaiting urine sample and admit assignment. pt currently resting quietly on stretcher in no apparent distress. call guillermo within pt reach. all needs met edmond.
[2023-04-20] MEDS: oxyCODONE HCl Immed Release 5 MG TABLET PO ×2 (15:53→23:33)
--- NOTE | 2023-04-20 22:44 | CONS_ITS ---
DATE OF SERVICE: 04/20/2023 REASON FOR CONSULTATION: I was asked to see the patient to assist in the dialysis needs. HISTORY OF PRESENT ILLNESS: In summary, the patient is a 73-year-old ESRD patient, normally dialyzes Monday, Monday, Monday. Missed her dialysis treatment on Monday. Has multiple chronic medical problems including atrial fibrillation, maintained on Eliquis; coronary artery disease, status post CABG; interstitial lung disease; hypertension; heart failure with reduced EF, and apparently recently diagnosed with CA of the left lung, who presents to the emergency room complaining of left hip and knee pain after a fall at home. The patient had an evaluation in the emergency room. X-ray showed medial rotation of left hip and a distal femur periprosthetic fracture. The patient admitted to the hospital and is going to have orthopedic surgery tomorrow. She was noted to have a high potassium at 6.5, which was medically treated in the emergency room and now she is on dialysis. She is complaining of pain, but otherwise she has been doing reasonably well given the injury she incurred. PAST MEDICAL HISTORY: As noted above. MEDICATIONS: On admission, noted in the admitting notes. ALLERGIES: SHE HAS MULTIPLE DRUG ALLERGIES NOTED.??? Current medications noted in the MAR. SOCIAL HISTORY: She is a nonsmoker, nondrinker. No illicit drug use. REVIEW OF SYSTEMS: As noted above. PHYSICAL EXAMINATION: VITAL SIGNS: Blood pressure 148/66 with a heart rate in the 70s. HEAD: Atraumatic and normocephalic. NECK: Supple. Mucous membranes moist. LUNGS: Breath sounds bilaterally. CARDIAC: Regular rate and rhythm. ABDOMEN: Soft. EXTREMITIES: 1+ edema. LABORATORY DATA: Showed hemoglobin 9.6, hematocrit 29.1, white blood cell count 10.9. Sodium 135, potassium 6.4, chloride 100, bicarb 19. IMPRESSION: A 73-YEAR-OLD END-STAGE RENAL DISEASE PATIENT, STATUS POST FALL WITH A DISTAL FEMUR FRACTURE. 1. End-stage renal disease. We will dialyze her today and keep her on a Monday, , Monday schedule and then come next week, we can switch her from the Monday, , Monday schedule to the Monday, Monday, Monday, which is her usual schedule. 2. Distal femur fracture. She is getting surgical correction tomorrow. 3. End-stage renal disease management of chronic medical problems. Continue medications as noted. 4. We will follow the patient with team. MD JENNI Alvarenga/RONNIE / [phone]
[2023-04-20] MEDS: Acetaminophen 325 MG TABLET 650 MG PO (23:31)
[2023-04-20] MEDS: traZODone HCL 100 MG TABLET PO (23:32)
[2023-04-21] VITALS (14 sets, daily range): BP systolic 82–138; BP diastolic 44–65; PULSE 64–84; RESP 16–22; TEMP 36.2–37.2; O2SAT 94–97
[2023-04-21] MEDS: Lidocaine 4 % Patch ADH..PATCH 1 PATCH TRANSDERMA ×2 (01:23→08:56)
[2023-04-21] MEDS: Acetaminophen 325 MG TABLET 650 MG PO (06:23)
[2023-04-21 06:43] LABS: Hematocrit 21.9 % (37.0-47.0); Hemoglobin 7.4 g/dl (12.0-16.0); Mean Corpuscular HGB Conc 33.8 g/dl (31.0-35.0); Mean Corpuscular Hemoglobin 33.2 pg (27.0-33.0); Mean Corpuscular Volume 98.2 fL (80.0-98.0); Mean Platelet Volume 10.2 fL (9.4-12.3); Platelet Count 102 X10*3/uL (160-400); Red Blood Count 2.23 X10*6/uL (4.20-5.50); Red Cell Distribution Width 13.6 % (11.0-16.0); White Blood Count 8.3 X10*3/uL (4.8-10.8)
[2023-04-21 07:03] LABS: Anion Gap 15 (12-20); Blood Urea Nitrogen 32 mg/dL (9-16); Calcium 7.8 mg/dL (8.4-10.2); Carbon Dioxide 21 mmol/L (22-29); Chloride 96 mmol/L (96-108); Creatinine Clr Calc Pharmacy 7.7; Estimated Glomerular Filt Rate 9; Glucose Random 96 mg/dL (60-115); Potassium 4.5 mmol/L (3.3-5.1); Sodium 127 mmol/L (135-145)
[2023-04-21] MEDS: Nitroglycerin 0.4 MG PATCH.TD24 TRANSDERMA (08:30)
--- NOTE | 2023-04-21 08:35 | PC.NURSE ---
Nitroglycerin patch unvailable in pyxis when due. called pharmacy this am for restock and given when available. applied to RL Abdomen
[2023-04-21] MEDS: HYDROmorphone HCl 0.5 MG/0.5 ML SYRINGE 0.25 MG IVPUSH ×3 (08:52→20:55)
[2023-04-21] MEDS: oxyCODONE HCl Immed Release 5 MG TABLET PO ×4 (08:52→23:34)
[2023-04-21] MEDS: Gabapentin 300 MG CAPSULE PO (08:56)
[2023-04-21] MEDS: FLUoxetine HCl 20 MG CAPSULE PO (08:56)
[2023-04-21] MEDS: Atorvastatin Calcium 80 MG TABLET PO (08:56)
[2023-04-21] MEDS: 0.9 % Sodium Chloride Flush 3 ML SYRINGE IVFLUSH ×2 (09:00→20:24)
--- NOTE | 2023-04-21 11:32 | MHC.CM.PN ---
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
[2023-04-21 11:53] LABS: Alanine Aminotransferase 7 U/L (0-31); Albumin Level 2.9 g/dL (3.5-5.0); Alkaline Phosphatase 86 U/L (39-117); Aspartate Amino Transferase 12 U/L (5-31); Bilirubin Direct 0.1 mg/dL (0.0-0.5); Bilirubin Total 0.3 mg/dL (0.0-1.0); Total Protein 5.9 g/dL (6.5-8.0)
--- NOTE | 2023-04-21 15:26 | P.PNNP_ITS ---
Subjective Subjective Date of Service: 04/21/23 Interval history: no events Physical Exam 2 Vital Signs: Vital Signs: Last Vital Signs Temp 97.6 F 04/21/23 14:00 Pulse 69 04/21/23 14:00 Resp 16 04/21/23 14:00 BP 90/54 L 04/21/23 14:00 Pulse Ox 97 04/21/23 11:59 O2 Del Method Room Air 04/21/23 11:59 BMI result Body Mass Index 22.6 Const: General: cooperative, comfortable and no acute distress Resp: Effort & Inspection: normal respiratory effort Auscultation: clear to auscultation bilaterally Cardio: Jugular venous distension: no JVD Rate: regular rate GI: Inspection: Yes normal to inspection Auscultation: normal bowel sounds Objective Data Labs 04/21/23 06:32 04/21/23 06:32 Labs: Laboratory Results - last 24 hr 04/20/23 04/21/23 20:27 06:32 WBC 8.3 RBC 2.23 L D Hgb 7.4 L D Hct 21.9 L D MCV 98.2 H MCH 33.2 H MCHC 33.8 RDW 13.6 Plt Count 102 L MPV 10.2 Absolute Nucleated RBC 0.000 Nucleated RBC % (auto) 0.0 Sodium 127 L Potassium 4.5 D Chloride 96 Carbon Dioxide 21 L Anion Gap 15 BUN 32 H Creatinine 4.75 H* Estim Creat Clear Calc 7.7 Estimated GFR 9 Random Glucose 96 Calcium 7.8 L Magnesium 2.0 Total Bilirubin 0.3 Direct Bilirubin 0.1 AST 12 ALT 7 Alkaline Phosphatase 86 Total Protein 5.9 L Albumin 2.9 L Blood Type B Positive Antibody Screen POSITIVE Antibody Identification Anti-E NATALIE, Polyspecific NEGATIVE Positive NATALIE Work-up Not Reportable Crossmatch ([facility]) See Detail Procedures Date of Service Date of Service: 04/21/23 Assessment & Plan Assessment and plan (1) Closed left femoral fracture: Status: Acute (2) Acute hyperkalemia: Status: Acute (3) Lung mass: Status: Acute (4) ESRD (end stage renal disease): Status: Acute (5) Hemodialysis patient: Status: Acute Plan Ms. Maryam Ramos is a 73-year-old female with a PMH significant for?paroxysmal AFib on Eliquis, ESRD on hemodialysis (M/W/F), carotid stenosis, CAD s/p CABG, interstitial lung disease, HTN, HFrEF, and recently diagnosed adenocarcinoma of left lower lung (05/11/2023) who presents to the ED with?left knee and hip pain after a fall at home. Pt will be admitted to the hospital for treatment and further evaluation of broken left femur. She presented hyperkalemic as she missed HD on day of presentation. Dialyzed urgently on 04/20/23 Will continue HD on TTS schedule cw sevelamer EPO and Venofer ordered today. Time Spent With Patient Time: Total time managing care of this patient today ____ minutes. Progress Note: Quality Stroke Does the patient have a stroke diagnosis?: No
[2023-04-21] MEDS: Sevelamer Carbonate Tablet 800 MG TABLET PO (16:51)
--- NOTE | 2023-04-21 16:52 | P.PNIM_ITS ---
Subjective Subjective Date of Service: 04/21/23 Interval History: Seen and evaluated this morning Hyponatremia of 127 Hb dropped to 7.4 BP running low Surgery postpone Review of Systems Review of Systems: Yes all other systems are reviewed and are negative Physical Exam 2 Vital Signs: Vital Signs: Last Vital Signs Temp 98.7 F 04/21/23 15:34 Pulse 72 04/21/23 15:34 Resp 20 04/21/23 15:34 BP 96/53 L 04/21/23 15:34 Pulse Ox 95 04/21/23 15:34 O2 Del Method Room Air 04/21/23 15:34 BMI result Body Mass Index 22.6 Const: Other: Constitutional : Awake, interactive, not in distress Neck : Normal inspection, Supple Cardiovascular : RRR, no JVP, no lower extremity edema Respiratory : good bilateral air entry, no crackles, wheezes or rhonchi Gastrointestinal: soft, lax, Normal bowel sounds, Non tender Skin : Warm, Dry Skeletal: left leg shorter and externally rotated Neurological : Alert & oriented x3, No focal deficit Objective Data Active Medications Acetaminophen (Acetaminophen 325 Mg Tablet) 650 mg PO Q6H PRN PRN Reason: Pain, Mild (Pain Scale 1-3) Last Admin: 04/21/23 06:23 Dose: 650 mg Documented By: VALENTINA Atorvastatin Calcium (Atorvastatin Calcium 80 Mg Tablet) 80 mg PO DAILY [facility] Last Admin: 04/21/23 08:56 Dose: 80 mg Documented By: MERLE Docusate Sodium (Docusate Sodium 100 Mg Capsule) 100 mg PO DAILY PRN PRN Reason: Constipation Fluoxetine HCl (Fluoxetine Hcl 20 Mg Capsule) 20 mg PO DAILY [facility] Last Admin: 04/21/23 08:56 Dose: 20 mg Documented By: MERLE Gabapentin (Gabapentin 300 Mg Capsule) 300 mg PO DAILY [facility] Last Admin: 04/21/23 08:56 Dose: 300 mg Documented By: MERLE Hydromorphone HCl (Hydromorphone Hcl 0.5 Mg/0.5 Ml Syringe) 0.25 mg IVPUSH Q4H PRN; Protocol PRN Reason: Pain, Severe (Pain Scale 7-10) Last Admin: 04/21/23 08:52 Dose: 0.25 mg Documented By: MERLE Lidocaine (Lidocaine 4 % Patch Adh..Patch) 1 patch TRANSDERMA DAILY [facility]; Protocol Last Admin: 04/21/23 08:56 Dose: 1 patch Documented By: MERLE Nitroglycerin (Nitroglycerin 0.4 Mg Patch.Td24) 0.4 mg TRANSDERMA DAILY@0400 [facility]; Protocol Last Admin: 04/21/23 08:30 Dose: 0.4 mg Documented By: VALENTINA Ondansetron HCl (Ondansetron Hcl 4 Mg/2 Ml Vial) 4 mg IVPUSH Q8H PRN PRN Reason: Nausea and Vomiting Oxycodone HCl (Oxycodone Hcl Immed Release 5 Mg Tablet) 5 mg PO Q4H PRN PRN Reason: Pain, Severe (Pain Scale 7-10) Last Admin: 04/21/23 14:08 Dose: 5 mg Documented By: MERLE Sevelamer Carbonate (Sevelamer Carbonate Tablet 800 Mg Tablet) 800 mg PO TIDWM [facility] Last Admin: 04/21/23 16:51 Dose: 800 mg Documented By: MERLE Sodium Chloride (0.9 % Sodium Chloride Flush 3 Ml Syringe) 3 ml IVFLUSH QSHIFT [facility] Last Admin: 04/21/23 15:52 Dose: Not Given Documented By: MERLE Non-Admin Reason: IV Running Trazodone HCl (Trazodone Hcl 100 Mg Tablet) 100 mg PO BEDTIME [facility] Last Admin: 04/20/23 23:32 Dose: 100 mg Documented By: VALENTINA Labs 04/21/23 06:32 04/21/23 06:32 Labs: Laboratory Results - last 24 hr 04/20/23 04/21/23 20:27 06:32 MCV 98.2 H MCH 33.2 H MCHC 33.8 RDW 13.6 Plt Count 102 L MPV 10.2 Absolute Nucleated RBC 0.000 Nucleated RBC % (auto) 0.0 Anion Gap 15 Estim Creat Clear Calc 7.7 Estimated GFR 9 Random Glucose 96 Calcium 7.8 L Magnesium 2.0 Total Bilirubin 0.3 Direct Bilirubin 0.1 AST 12 ALT 7 Alkaline Phosphatase 86 Total Protein 5.9 L Albumin 2.9 L Blood Type B Positive Antibody Screen POSITIVE Antibody Identification Anti-E NATALIE, Polyspecific NEGATIVE Positive NATALIE Work-up Not Reportable Crossmatch ([facility]) See Detail Assessment and Plan (1) Acute hyperkalemia: Status: Acute (2) ESRD (end stage renal disease): Status: Acute (3) Closed left femoral fracture: Status: Acute (4) Acute hyponatremia: Status: Acute Plan Pt is a 73-year-old female with a PMH significant for?paroxysmal AFib on Eliquis, ESRD on hemodialysis (M/W/F), carotid stenosis, CAD s/p CABG, interstitial lung disease, HTN, HFrEF, and recently diagnosed adenocarcinoma of left lower lung (05/11/2023) who presents to the ED with?left knee and hip pain after a fall at home. Pt will be admitted to the hospital for treatment and further evaluation of broken left femur with likely surgical procedure and missed dialysis with emergent dialysis. Acute on chronic anemia No clear blood loss , related to ESRD Hb of 7.4, to transfuse 2-3 units and repeat H&H w goal >30 occult stool follow H&H Left femur fracture Left knee x-ray found displaced comminuted overlapping distal femoral periprosthetic fracture Analgesics for pain management NPO after midnight for likely surgical procedure tomorrow Orthopedics following Pneumatic boots for DVT prophylaxis Acute hyponatremia Post dialysis Nephro following To repeat BMP and monitor PseudoHypercalcemia corrected Ca of 8.3 Hyperkalemia resolved ESRD on hemodialysis M/W/F Nephrology consult Had emergent dialysis on admission, to repeat tomorrow Paroxysmal AFib Hold Eliquis d/t likely surgical procedure Last took Eliquis last night on 04/19/2023 Hold carvedilol d/t soft BP HFrEF Not in acute exacerbation Hold home Lasix d/t soft BP HTN Hold BP meds Lung mass Pt with recently diagnosed adenocarcinoma of left lung Follow up outpatient with oncology Full Code DVT Prophylaxis: Pneumatic boots d/t likely surgical procedure tomorrow Pt will require a hospitalization overnight for treatment of?left periprosthetic femur fracture with likely surgical procedure tomorrow. Time Spent With Patient Time: Total time managing care of this patient today ____ minutes. Quality Stroke Does the patient have a stroke diagnosis?: No VTE Prior VTE?: No VTE Risk Level:: Medical - moderate - high VTE Device Contraindication: N/A - Device Ordered VTE Drug Contraindication: Treatment Not Indicated
[2023-04-21] MEDS: 0.9 % Sodium Chloride 500 ML 999 ML IV (17:03)
[2023-04-21] MEDS: Iron Sucrose Complex 200 MG in 0.9 % Sodium Chloride 100 ML 440 MG IV (17:06)
[2023-04-21] MEDS: Midodrine HCl 5 MG TABLET PO (17:37)
[2023-04-21 19:17] LABS: Hematocrit 30.2 % (37.0-47.0); Hemoglobin 10.3 g/dl (12.0-16.0); Mean Corpuscular HGB Conc 34.1 g/dl (31.0-35.0); Mean Corpuscular Hemoglobin 32.7 pg (27.0-33.0); Mean Corpuscular Volume 95.9 fL (80.0-98.0); Platelet Count 108 X10*3/uL (160-400); Red Blood Count 3.15 X10*6/uL (4.20-5.50); Red Cell Distribution Width 14.6 % (11.0-16.0); White Blood Count 11.3 X10*3/uL (4.8-10.8)
[2023-04-21 19:39] LABS: Anion Gap 17 (12-20); Blood Urea Nitrogen 39 mg/dL (9-16); Calcium 7.6 mg/dL (8.4-10.2); Carbon Dioxide 19 mmol/L (22-29); Chloride 97 mmol/L (96-108); Creatinine Clr Calc Pharmacy 6.6; Estimated Glomerular Filt Rate 8; Glucose Random 125 mg/dL (60-115); Potassium 4.5 mmol/L (3.3-5.1); Sodium 128 mmol/L (135-145)
[2023-04-21] MEDS: traZODone HCL 100 MG TABLET PO (20:23)
[2023-04-22] VITALS (12 sets, daily range): BP systolic 66–150; BP diastolic 40–81; PULSE 62–92; RESP 16–24; TEMP 36.2–36.9; O2SAT 94–97
[2023-04-22] MEDS: HYDROmorphone HCl 0.5 MG/0.5 ML SYRINGE 0.25 MG IVPUSH ×4 (03:57→14:33)
[2023-04-22 06:42] LABS: MANUAL DIFF FLAG NO
[2023-04-22 06:45] LABS: Basophils Percent Auto 0.3 % (0-2); Eosinophils Absolute Auto 0.1 X10*3/uL (0.0-0.4); Hematocrit 30.7 % (37.0-47.0); Hemoglobin 10.3 g/dl (12.0-16.0); Imm Gran Abs Auto 0.12 X10*3/uL (0.00-0.03); Imm Gran Pct Auto 1.1 % (0.0-0.4); Lymphocytes Absolute Auto 1.1 X10*3/uL (1.2-4.9); Lymphocytes Percent Auto 9.7 % (20-40); Mean Corpuscular HGB Conc 33.6 g/dl (31.0-35.0); Mean Corpuscular Hemoglobin 32.2 pg (27.0-33.0); Mean Corpuscular Volume 95.9 fL (80.0-98.0); Mean Platelet Volume 9.9 fL (9.4-12.3); Monocytes Absolute Auto 0.9 X10*3/uL (0.1-1.2); Monocytes Percent Auto 7.9 % (2-11); Neutrophils Absolute Auto 8.7 x10*3/uL (2.0-8.3); Platelet Count 107 X10*3/uL (160-400); Red Cell Distribution Width 14.6 % (11.0-16.0); White Blood Count 10.9 X10*3/uL (4.8-10.8)
[2023-04-22 07:23] LABS: Blood Urea Nitrogen 21 mg/dL (9-16); Creatinine Clr Calc Pharmacy 11.9; Estimated Glomerular Filt Rate 15; Glucose Random 92 mg/dL (60-115)
[2023-04-22 07:31] LABS: Anion Gap 15 (12-20); Calcium 8.6 mg/dL (8.4-10.2); Carbon Dioxide 22 mmol/L (22-29); Chloride 96 mmol/L (96-108); Potassium 3.3 mmol/L (3.3-5.1); Sodium 130 mmol/L (135-145)
[2023-04-22] MEDS: 0.9 % Sodium Chloride Flush 3 ML SYRINGE IVFLUSH ×2 (07:48→14:33)
[2023-04-22] MEDS: FLUoxetine HCl 20 MG CAPSULE PO (09:43)
[2023-04-22] MEDS: Atorvastatin Calcium 80 MG TABLET PO (09:43)
[2023-04-22] MEDS: Lidocaine 4 % Patch ADH..PATCH 1 PATCH TRANSDERMA (09:44)
[2023-04-22] MEDS: oxyCODONE HCl Immed Release 5 MG TABLET PO (09:44)
[2023-04-22] MEDS: Gabapentin 300 MG CAPSULE PO (09:44)
[2023-04-22] MEDS: Sevelamer Carbonate Tablet 800 MG TABLET PO ×3 (09:45→17:19)
--- NOTE | 2023-04-22 10:34 | HO.ANESPROP2 ---
[facility] Active Problems Active Problems: All Active Problems (Updated 04/21/23 @ 17:05 by Baltazar Guzman MD) Acute hyponatremia (Acute) Acute hyperkalemia (Acute) Closed left femoral fracture (Acute) Lung mass (Acute) Hemodialysis patient (Acute) ESRD (end stage renal disease) (Acute) AV fistula (Acute) CAD (coronary artery disease) (Acute) Atherosclerotic cardiovascular disease (Acute) Left carotid stenosis (Acute) Anemia (Acute) Aortic stenosis (Acute) History of non-ST elevation myocardial infarction (NSTEMI) (Acute ~12/2020) Chronic heart failure with preserved ejection fraction (HFpEF) (Acute) PAF (paroxysmal atrial fibrillation) (Acute ~12/2020) History of DVT (deep vein thrombosis) (Acute) Osteopenia (Acute) Hyperkalemia (Acute) Asthmatic bronchitis (Acute) Acute pulmonary edema with congestive heart failure (Acute) Interstitial nephritis, acute (Acute) Past Medical History Medical History History of DVT (deep vein thrombosis) History of non-ST elevation myocardial infarction (NSTEMI) (~12/2020) Osteopenia ESRD (end stage renal disease) Interstitial lung disease Atherosclerotic cardiovascular disease Aortic stenosis CAD (coronary artery disease) PAF (paroxysmal atrial fibrillation) (~12/2020) Anemia Asthmatic bronchitis GERD (gastroesophageal reflux disease) CKD (chronic kidney disease), stage IV History of ectopic Depression Hypertension Functional capacity: independent ambulation Patient : No Family History Family History Father No problems noted. Mother Myocardial infarction Surgical History Surgical History History of coronary artery bypass graft x 3 S/P arteriovenous (AV) fistula creation History of colonoscopy History of total replacement of right shoulder joint History of rectopexy History of left knee replacement History of carpal tunnel release of both wrists Social History Social History Household Members: Spouse Housing: House Do you presently have visiting nurse or other home services: No Alcohol intake: current Alcohol intake frequency: does not drink Patient Tobacco Use Status: Current everyday Tobacco user Tobacco use type: Cigarette Cigarettes Per Day: 4 Smoked in Last 30 Days: Yes Patient Interested in Nicotine Replacement: Yes Second Hand Smoke Exposure: No Use of substances other than those prescribed or required for medical reasons: No Currently Displaying Signs/Symptoms of Drug Intoxication Withdrawal: No Have you been hit, kicked, punched, or otherwise hurt by someone within the past year? If so, by whom?: No Do you feel safe in your current relationship?: Yes Is there a partner from a previous relationship who is making you feel unsafe now?: No Are you made to feel afraid or neglected: No Advance Directives: Yes Advance Directives on File: Yes Advance Directives Date on File: 03/10/23 Do you have thoughts of harming others: None Do you have a plan to hurt others: No Plan Recently lost weight without trying: No Eating poorly because of decreased appetite: No Patient : No service: No Current occupational status: retired Current occupation: young,right handed Meds Allergies Allergy/AdvReac Type Severity Reaction Status Date / Time atenolol [ATENOLOL] Allergy Severe DIFF Verified 04/06/23 09:59 BREATHING, heart races. doxycycline Allergy Severe Anaphylaxis Verified 04/06/23 09:59 duloxetine Allergy Severe Anaphylaxis Verified 04/06/23 09:59 amphetamine [Adderall] AdvReac Severe shortness Verified 04/06/23 09:59 of breath dextroamphetamine [Adderall] AdvReac Severe shortness Verified 04/06/23 09:59 of breath Active Medications: Current Medications Acetaminophen (Acetaminophen 325 Mg Tablet) 650 mg PO Q6H PRN PRN Reason: Pain, Mild (Pain Scale 1-3) Last Admin: 04/21/23 06:23 Dose: 650 mg Atorvastatin Calcium (Atorvastatin Calcium 80 Mg Tablet) 80 mg PO DAILY [facility] Last Admin: 04/22/23 09:43 Dose: 80 mg Carvedilol (Carvedilol 12.5 Mg Tablet) 12.5 mg PO BID [facility]; Protocol Docusate Sodium (Docusate Sodium 100 Mg Capsule) 100 mg PO DAILY PRN PRN Reason: Constipation Fluoxetine HCl (Fluoxetine Hcl 20 Mg Capsule) 20 mg PO DAILY [facility] Last Admin: 04/22/23 09:43 Dose: 20 mg Gabapentin (Gabapentin 300 Mg Capsule) 300 mg PO DAILY [facility] Last Admin: 04/22/23 09:44 Dose: 300 mg Hydromorphone HCl (Hydromorphone Hcl 0.5 Mg/0.5 Ml Syringe) 0.25 mg IVPUSH Q4H PRN; Protocol PRN Reason: Pain, Severe (Pain Scale 7-10) Last Admin: 04/22/23 07:48 Dose: 0.25 mg Lidocaine (Lidocaine 4 % Patch Adh..Patch) 1 patch TRANSDERMA DAILY [facility]; Protocol Last Admin: 04/22/23 09:44 Dose: 1 patch Nitroglycerin (Nitroglycerin 0.4 Mg Patch.Td24) 0.4 mg TRANSDERMA DAILY@0400 [facility]; Protocol Last Admin: 04/21/23 08:30 Dose: 0.4 mg Ondansetron HCl (Ondansetron Hcl 4 Mg/2 Ml Vial) 4 mg IVPUSH Q8H PRN PRN Reason: Nausea and Vomiting Oxycodone HCl (Oxycodone Hcl Immed Release 5 Mg Tablet) 5 mg PO Q4H PRN PRN Reason: Pain, Severe (Pain Scale 7-10) Last Admin: 04/22/23 09:44 Dose: 5 mg Sevelamer Carbonate (Sevelamer Carbonate Tablet 800 Mg Tablet) 800 mg PO TIDWM [facility] Last Admin: 04/22/23 09:45 Dose: 800 mg Sodium Chloride (0.9 % Sodium Chloride Flush 3 Ml Syringe) [facility] Last Admin: 04/22/23 07:48 Dose: 3 ml Trazodone HCl (Trazodone Hcl 100 Mg Tablet) 100 mg PO BEDTIME [facility] Last Admin: 04/21/23 20:23 Dose: 100 mg Home Medications Medication Instructions Recorded Confirmed Last Taken Type amlodipine 10 mg tablet 10 mg PO DAILY@1400 08/10/20 04/20/23 04/19/23 History acetaminophen 500 mg tablet 500 - 1,000 mg PO BID PRN Pain 10/30/22 04/20/23 04/19/23 History clonidine 0.2 mg/24 hr weekly 1 patch topical SA 10/30/22 04/20/23 04/19/23 History transdermal patch trazodone 100 mg tablet 1 tab PO BEDTIME 10/30/22 04/20/23 04/19/23 History gabapentin 300 mg capsule 300 mg PO DAILY 03/04/20/23 04/19/23 History furosemide 40 mg tablet (Lasix) 40 mg PO TUTHSA 03/07/23 04/20/23 04/18/23 History lisinopril 20 mg tablet 20 mg PO BID 03/07/23 04/20/23 04/19/23 History aspirin 81 mg chewable tablet 81 mg PO DAILY 03/10/23 04/20/23 04/19/23 History fluoxetine 20 mg capsule 20 mg PO DAILY 03/15/23 04/20/23 04/19/23 History nitroglycerin 0.4 mg/hr 0.4 mg transdermal DAILY@0400 04/20/23 04/20/23 04/19/23 History transdermal 24 hour patch sevelamer carbonate 800 mg tablet 800 mg PO TIDWM 04/20/23 04/20/23 04/19/23 History Exam Exam Date and Time: April 22, 2023 1034 Height,Weight and Vital Signs: Height 5 ft 1 in Weight 54.2 kg Last Vital Signs Temp 98.5 F 04/22/23 07:34 Pulse 84 04/22/23 07:34 Resp 20 04/22/23 07:34 BP 150/81 H 04/22/23 07:34 Pulse Ox 96 04/22/23 07:34 O2 Del Method Room Air 04/22/23 07:34 Pertinent Lab Results Pertinent Lab Results: Laboratory Tests 04/20/23 04/20/23 04/21/23 03:48 20:27 06:32 WBC 10.9 H 8.3 RBC 2.91 L 2.23 L D Hgb 9.6 L 7.4 L D Hct 29.1 L 21.9 L D MCV 100.0 H 98.2 H MCH 33.0 33.2 H MCHC 33.0 33.8 RDW 13.9 13.6 Plt Count 133 L D 102 L MPV 9.5 10.2 Immature Gran % (Auto) 0.6 H Neut % (Auto) 79.1 H Lymph % (Auto) 13.7 L [place] % (Auto) 6.1 Eos % (Auto) 0.2 Baso % (Auto) 0.3 Lymph # (Auto) 1.5 [place] # (Auto) 0.7 Eos # (Auto) 0.0 Baso # (Auto) 0.0 Abs Immat Gran (auto) 0.07 H Absolute Neuts (auto) 8.6 H Absolute Nucleated RBC 0.000 0.000 Nucleated RBC % (auto) 0.0 0.0 Sodium 135 127 L Potassium 6.4 H* D 4.5 D Chloride 100 96 Carbon Dioxide 19 L 21 L Anion Gap 22 H 15 BUN 70 H 32 H Creatinine 7.94 H* 4.75 H* Estim Creat Clear Calc 4.6 7.7 Estimated GFR 5 9 Random Glucose 109 96 Calcium 8.1 L 7.8 L Magnesium 2.0 Total Bilirubin 0.3 Direct Bilirubin 0.1 AST 12 ALT 7 Alkaline Phosphatase 86 Total Protein 5.9 L Albumin 2.9 L Lipase 75 Blood Type B Positive Antibody Screen POSITIVE Antibody Identification Anti-E NATALIE, Polyspecific NEGATIVE Positive NATALIE Work-up Not Reportable Crossmatch ([facility]) See Detail 04/21/23 04/22/23 18:58 06:38 WBC 11.3 H 10.9 H RBC 3.15 L D 3.20 L Hgb 10.3 L D 10.3 L Hct 30.2 L D 30.7 L MCV 95.9 95.9 MCH 32.7 32.2 MCHC 34.1 33.6 RDW 14.6 14.6 Plt Count 108 L 107 L MPV 10.0 9.9 Immature Gran % (Auto) 1.1 H Neut % (Auto) 80.0 H Lymph % (Auto) 9.7 L [place] % (Auto) 7.9 Eos % (Auto) 1.0 Baso % (Auto) 0.3 Lymph # (Auto) 1.1 L [place] # (Auto) 0.9 Eos # (Auto) 0.1 Baso # (Auto) 0.0 Abs Immat Gran (auto) 0.12 H Absolute Neuts (auto) 8.7 H Absolute Nucleated RBC 0.000 0.000 Nucleated RBC % (auto) 0.0 0.0 Sodium 128 L 130 L Potassium 4.5 3.3 D Chloride 97 96 Carbon Dioxide 19 L 22 Anion Gap 17 15 BUN 39 H 21 H Creatinine 5.52 H* 3.07 H Estim Creat Clear Calc 6.6 11.9 Estimated GFR 8 15 Random Glucose 125 H 92 Calcium 7.6 L 8.6 D Magnesium Total Bilirubin Direct Bilirubin AST ALT Alkaline Phosphatase Total Protein Albumin Lipase Blood Type Antibody Screen Antibody Identification NATALIE, Polyspecific Positive NATALIE Work-up Crossmatch ([facility]) Airway Mallampati Class: III TM Dist: >3cm Neck ROM: Full Denture: Upper and Lower Heart: RRR Lungs: CTA Assessment and Plan Final Anesthetic Review ASA Class: IV and Emergency Final Preanesthetic Review: Meds/Allgs Chart Reviewed, Consent Obtained/Reviewed and Anes Risks/Benef Reviewed Patient Risk: High Procedure Risk: Intermediate Anesthetic Plan Anesthetic Plan: GA Disposition: Standard PACU
--- NOTE | 2023-04-22 12:00 | PM.PNNEP ---
Subjective Subjective Date of Service: 04/22/23 Interval history: dialyzed today did well. ongoing left knee complaints Physical Exam Vital Signs: Vital Signs: Last Vital Signs Temp 98.3 F 04/22/23 10:56 Pulse 84 04/22/23 10:56 Resp 20 04/22/23 10:56 BP 118/64 04/22/23 10:56 Pulse Ox 95 04/22/23 10:56 O2 Del Method Room Air 04/22/23 10:56 BMI result Body Mass Index 22.6 Const: General: cooperative, comfortable and no acute distress Resp: Effort & Inspection: normal respiratory effort Auscultation: clear to auscultation bilaterally Cardio: Jugular venous distension: no JVD Rate: regular rate GI: Inspection: Yes normal to inspection Auscultation: normal bowel sounds Objective Data Labs 04/22/23 06:38 04/22/23 06:38 Labs: Laboratory Results - last 24 hr 04/20/23 04/21/23 04/22/23 20:27 18:58 06:38 WBC 11.3 H 10.9 H RBC 3.15 L D 3.20 L Hgb 10.3 L D 10.3 L Hct 30.2 L D 30.7 L MCV 95.9 95.9 MCH 32.7 32.2 MCHC 34.1 33.6 RDW 14.6 14.6 Plt Count 108 L 107 L MPV 10.0 9.9 Immature Gran % (Auto) 1.1 H Neut % (Auto) 80.0 H Lymph % (Auto) 9.7 L [place] % (Auto) 7.9 Eos % (Auto) 1.0 Baso % (Auto) 0.3 Lymph # (Auto) 1.1 L [place] # (Auto) 0.9 Eos # (Auto) 0.1 Baso # (Auto) 0.0 Abs Immat Gran (auto) 0.12 H Absolute Neuts (auto) 8.7 H Absolute Nucleated RBC 0.000 0.000 Nucleated RBC % (auto) 0.0 0.0 Sodium 128 L 130 L Potassium 4.5 3.3 D Chloride 97 96 Carbon Dioxide 19 L 22 Anion Gap 17 15 BUN 39 H 21 H Creatinine 5.52 H* 3.07 H Estim Creat Clear Calc 6.6 11.9 Estimated GFR 8 15 Random Glucose 125 H 92 Calcium 7.6 L 8.6 D Blood Type B Positive Antibody Screen POSITIVE Antibody Identification Anti-E NATALIE, Polyspecific NEGATIVE Crossmatch ([facility]) See Detail Procedures Date of Service Date of Service: 04/22/23 Assessment & Plan Assessment and plan (1) Closed left femoral fracture: Status: Acute (2) Acute hyperkalemia: Status: Acute (3) Lung mass: Status: Acute (4) ESRD (end stage renal disease): Status: Acute (5) Hemodialysis patient: Status: Acute Plan Ms. Maryam Ramos is a 73-year-old female with a PMH significant for?paroxysmal AFib on Eliquis, ESRD on hemodialysis (M/W/F), carotid stenosis, CAD s/p CABG, interstitial lung disease, HTN, HFrEF, and recently diagnosed adenocarcinoma of left lower lung (05/11/2023) who presents to the ED with?left knee and hip pain after a fall at home. Pt will be admitted to the hospital for treatment and further evaluation of broken left femur. She presented hyperkalemic as she missed HD on day of presentation. Dialyzed urgently on 04/20/23 HD today per TTS schedule cw sevelamer EPO and Venofer dosed 04/21/23 Time Spent With Patient Time: Total time managing care of this patient today ____ minutes. Progress Note: Quality Stroke Does the patient have a stroke diagnosis?: No
--- NOTE | 2023-04-22 14:31 | MHC.SHP ---
Pre-Procedural Eval Section A Date of Service: 04/22/23 The patient is an INPATIENT: Yes Changes since office visit: No Cold of Flu in the past 2 weeks, No New Medical Problems, No Changes in Medication and No Patient answered all questions The History & Physical has been completed within 30 days and I have reviewed it.: Yes Section B Chief Complaint: Fractured left femur missed dialysis Allergies: Allergies Allergy/AdvReac Type Severity Reaction Status Date / Time atenolol [ATENOLOL] Allergy Severe DIFF Verified 04/06/23 09:59 BREATHING, heart races. doxycycline Allergy Severe Anaphylaxis Verified 04/06/23 09:59 duloxetine Allergy Severe Anaphylaxis Verified 04/06/23 09:59 amphetamine [Adderall] AdvReac Severe shortness Verified 04/06/23 09:59 of breath dextroamphetamine [Adderall] AdvReac Severe shortness Verified 04/06/23 09:59 of breath Plan I have reviewed the history and physical and performed a pertinent physical examination on my patient. No changes have occurred unless specified. Time Spent With Patient Time: Total time managing care of this patient today ____ minutes.
--- NOTE | 2023-04-22 14:32 | MHC.CM.PN ---
Pt and daughter requested to make new HCP to update daughters address. Updated HCP now on file.
--- NOTE | 2023-04-22 15:19 | HO.PM.IMPN ---
Subjective Subjective Date of Service: 04/22/23 Interval History: Seen and evaluated this morning Hyponatremia of 130 Hb recovered to 10.3, no evidence of bleeding BP stable Having dialysis Surgery today Review of Systems Review of Systems: Yes all other systems are reviewed and are negative Physical Exam Vital Signs: Vital Signs: Last Vital Signs Temp 98.3 F 04/22/23 10:56 Pulse 84 04/22/23 10:56 Resp 20 04/22/23 10:56 BP 118/64 04/22/23 10:56 Pulse Ox 95 04/22/23 10:56 O2 Del Method Room Air 04/22/23 10:56 BMI result Body Mass Index 22.6 Const: Other: Constitutional : Awake, interactive, not in distress Neck : Normal inspection, Supple Cardiovascular : RRR, no JVP, no lower extremity edema Respiratory : good bilateral air entry, no crackles, wheezes or rhonchi Gastrointestinal: soft, lax, Normal bowel sounds, Non tender Skin : Warm, Dry Skeletal: left leg shorter and externally rotated Neurological : Alert & oriented x3, No focal deficit Objective Data Active Medications Acetaminophen (Acetaminophen 325 Mg Tablet) 650 mg PO Q6H PRN PRN Reason: Pain, Mild (Pain Scale 1-3) Last Admin: 04/21/23 06:23 Dose: 650 mg Documented By: VALENTINA Atorvastatin Calcium (Atorvastatin Calcium 80 Mg Tablet) 80 mg PO DAILY [facility] Last Admin: 04/22/23 09:43 Dose: 80 mg Documented By: PENNIE Carvedilol (Carvedilol 12.5 Mg Tablet) 12.5 mg PO BID [facility]; Protocol Docusate Sodium (Docusate Sodium 100 Mg Capsule) 100 mg PO DAILY PRN PRN Reason: Constipation Fentanyl (Fentanyl Citrate/Pf 100 Mcg/2 Ml Vial) 25 mcg IVPUSH Q5M PRN; Protocol PRN Reason: Pain, Moderate(Pain Scale 4-6) Fluoxetine HCl (Fluoxetine Hcl 20 Mg Capsule) 20 mg PO DAILY [facility] Last Admin: 04/22/23 09:43 Dose: 20 mg Documented By: PENNIE Gabapentin (Gabapentin 300 Mg Capsule) 300 mg PO DAILY [facility] Last Admin: 04/22/23 09:44 Dose: 300 mg Documented By: PENNIE Hydromorphone HCl (Hydromorphone Hcl 0.5 Mg/0.5 Ml Syringe) 0.25 mg IVPUSH Q4H PRN; Protocol PRN Reason: Pain, Severe (Pain Scale 7-10) Last Admin: 04/22/23 14:33 Dose: 0.25 mg Documented By: PENNIE Sodium Chloride (Ns) 100 mls @ 100 mls/hr IV ONCE ONE Stop: 04/22/23 15:56 Sodium Chloride (Ns) 100 mls @ 100 mls/hr IV ONCE ONE Stop: 04/22/23 15:56 Lidocaine (Lidocaine 4 % Patch Adh..Patch) 1 patch TRANSDERMA DAILY [facility]; Protocol Last Admin: 04/22/23 09:44 Dose: 1 patch Documented By: PENNIE Nitroglycerin (Nitroglycerin 0.4 Mg Patch.Td24) 0.4 mg TRANSDERMA DAILY@0400 [facility]; Protocol Last Admin: 04/21/23 08:30 Dose: 0.4 mg Documented By: VALENTINA Ondansetron HCl (Ondansetron Hcl 4 Mg/2 Ml Vial) 4 mg IVPUSH Q8H PRN PRN Reason: Nausea and Vomiting Oxycodone HCl (Oxycodone Hcl Immed Release 5 Mg Tablet) 5 mg PO Q4H PRN PRN Reason: Pain, Severe (Pain Scale 7-10) Last Admin: 04/22/23 09:44 Dose: 5 mg Documented By: PENNIE Sevelamer Carbonate (Sevelamer Carbonate Tablet 800 Mg Tablet) 800 mg PO TIDWM [facility] Last Admin: 04/22/23 11:52 Dose: 800 mg Documented By: PENNIE Sodium Chloride (0.9 % Sodium Chloride Flush 3 Ml Syringe) 3 ml IVFLUSH QSHIFT [facility] Last Admin: 04/22/23 14:33 Dose: 3 ml Documented By: PENNIE Trazodone HCl (Trazodone Hcl 100 Mg Tablet) 100 mg PO BEDTIME [facility] Last Admin: 04/21/23 20:23 Dose: 100 mg Documented By: DELISA Labs 04/22/23 06:38 04/22/23 06:38 Labs: Laboratory Results - last 24 hr 04/20/23 04/21/23 04/22/23 20:27 18:58 06:38 MCV 95.9 95.9 MCH 32.7 32.2 MCHC 34.1 33.6 RDW 14.6 14.6 Plt Count 108 L 107 L MPV 10.0 9.9 Immature Gran % (Auto) 1.1 H Neut % (Auto) 80.0 H Lymph % (Auto) 9.7 L [place] % (Auto) 7.9 Eos % (Auto) 1.0 Baso % (Auto) 0.3 Lymph # (Auto) 1.1 L [place] # (Auto) 0.9 Eos # (Auto) 0.1 Baso # (Auto) 0.0 Abs Immat Gran (auto) 0.12 H Absolute Neuts (auto) 8.7 H Absolute Nucleated RBC 0.000 0.000 Nucleated RBC % (auto) 0.0 0.0 Anion Gap 17 15 Estim Creat Clear Calc 6.6 11.9 Estimated GFR 8 15 Random Glucose 125 H 92 Calcium 7.6 L 8.6 D Blood Type B Positive Antibody Screen POSITIVE Antibody Identification Anti-E NATALIE, Polyspecific NEGATIVE Crossmatch (AHG) See Detail Assessment and Plan (1) Acute hyponatremia: Status: Acute (2) Acute hyperkalemia: Status: Acute (3) Closed left femoral fracture: Status: Acute (4) ESRD (end stage renal disease): Status: Acute Plan Pt is a 73-year-old female with a PMH significant for?paroxysmal AFib on Eliquis, ESRD on hemodialysis (M/W/F), carotid stenosis, CAD s/p CABG, interstitial lung disease, HTN, HFrEF, and recently diagnosed adenocarcinoma of left lower lung (05/11/2023) who presents to the ED with?left knee and hip pain after a fall at home. Pt will be admitted to the hospital for treatment and further evaluation of broken left femur with likely surgical procedure and missed dialysis with emergent dialysis. Acute on chronic anemia No clear blood loss , likely related to ESRD pending occult stool Hb of 10.3 after 2 units transfusion follow H&H Left femur fracture Left knee x-ray found displaced comminuted overlapping distal femoral periprosthetic fracture Analgesics for pain management Orthopedics following Pneumatic boots for DVT prophylaxis Acute hyponatremia Post dialysis Nephro following To repeat BMP and monitor PseudoHypercalcemia corrected Ca of 8.3 Hyperkalemia resolved ESRD on hemodialysis M/W/F Nephrology consult Had emergent dialysis on admission, to repeat tomorrow Paroxysmal AFib Hold Eliquis d/t likely surgical procedure Last took Eliquis last night on 04/19/2023 Hold carvedilol d/t soft BP HFrEF Not in acute exacerbation Hold home Lasix d/t soft BP HTN Hold BP meds Lung mass Pt with recently diagnosed adenocarcinoma of left lung Follow up outpatient with oncology Full Code DVT Prophylaxis: Pneumatic boots d/t likely surgical procedure tomorrow Pt will require a hospitalization overnight for treatment of?left periprosthetic femur fracture with likely surgical procedure Time Spent With Patient Time: Total time managing care of this patient today ____ minutes. Quality Stroke Does the patient have a stroke diagnosis?: No VTE Prior VTE?: No VTE Risk Level:: Medical - moderate - high VTE Device Contraindication: N/A - Device Ordered VTE Drug Contraindication: Treatment Not Indicated
--- NOTE | 2023-04-22 16:18 | P.BOP_ITS ---
Brief Operative Note Date of Service: 04/22/23 Pre-op diagnosis: left periprosthetic distal femur fracture Post-op diagnosis: same Procedure: Rertreograde IMN left femur Implants: Strykler alpha-2 200 x 10 retrograde IMN iwth 1 proximal and 3 distal interlocking screws Surgeon: Ryan Tripp MD Anesthesia: GETA and local Was an Retail Marketing Manager used for this Procedure?: Yes Retail Marketing Manager: Barbara Atkinson Estimated blood loss (mL): 150 IV fluids (mL): 500 Pathology: none sent Condition: stable Disposition: PACU
[2023-04-22] MEDS: Acetaminophen 325 MG TABLET 650 MG PO (17:19)
[2023-04-22] MEDS: ondansetron HCL 4 MG/2 ML VIAL IVPUSH (17:19)
[2023-04-22] MEDS: Midodrine HCl 10 MG TABLET PO (20:03)
[2023-04-22] MEDS: Lactated Ringers 1,000 ML 999 ML IV (20:05)
[2023-04-22] MEDS: Ketorolac Tromethamine 15 MG/ML VIAL IVPUSH (21:20)
[2023-04-22] MEDS: Clindamycin Phosphate/D5W 300 MG/50 ML PIGGYBACK 100 MG IV (22:35)
[2023-04-22 23:43] LABS: Hemoglobin 7.9 g/dl (12.0-16.0)
[2023-04-22] MEDS: Lactated Ringers 1,000 ML 500 ML IV (23:45)
--- NOTE | 2023-04-22 23:55 | PM.EVENT ---
Event Note Date of Service: 04/22/23 Event Note: pt noted to be hypotensive. Asymptomatic initiailly. received 1L of LR and 10 of midodrine. remained hypotensive w bp dropping even further. pt then started complaining of feeling lightheaded. given hx of esrd and HF , ICU was consulted. I do not believe pt is septic and hypotension is likely post surger as well as dialysis both done same day. will obtain H&H and follow closely. pt remains otherwise HDS Time Spent With Patient Time: Total time managing care of this patient today ____ minutes.
--- NOTE | 2023-04-22 23:57 | P.CONCC_ITS ---
History of Present Illness Data of Consult Service Date: 04/22/23 Requesting physician: Gilda Merida Primary Care Provider: Unknown Physician HPI Reason for consult: HYPOTENSION HPI: ?73-year-old female with underlying history of end-stage renal disease on hemodialysis Monday, Monday and Monday however last session was today, history of paroxysmal atrial fibrillation on Eliquis, carotid stenosis, history of DVT, coronary disease status post CABG, interstitial lung disease, hypertension, history of CHF, who was recently diagnosed with left lung adeno carcinoma, who had been admitted to the hospital after being seen in the emergency room on 04/20/2023 post a home related mechanical fall and complaining of left knee and hip pain. ?Workup at the time revealed a white count 10.9, H&H of 9.6 and 29.1 respectively, potassium is 6.4, creatinine 7.94.? Chest x-ray did not show any acute cardiopulmonary disease.? Evaluation of her left hip and kne x-rays revealed a displaced comminuted distal femoral periprosthetic fracture. Patient underwent hemodialysis and subsequently underwent a retrograde IM Pam of the distal femur due to a periprosthetic fracture, procedure performed by Dr. Tripp, estimated EBL of 100 cc and without complications. We were consulted this evening due to patient's hypotension which has been as low as 66/47 which started at 07:30 this evening.? Patient received 1 L of IV fluids without much improvement and is reported the patient is lightheaded. Upon seeing the patient, the patient states that she was not really lightheaded but felt a little tired, denies any room spinning, headache, double or blurred vision, nausea, vomiting, chest pain, shortness a breath, palpitations, abdominal pain, numbness or tingling of the upper lower extremities.? She does admit having some discomfort on the left knee and states that this appears to be somewhat swollen. Review of systems: As above, otherwise the patient denies, cold intolerance, migraine headaches, head trauma, no eyes, ears or nose problems, no problems swallowing or with phonation, no thyroid disease, denies cough, sputum production, pneumonia, bronchitis,abdominal pain, nausea, vomiting, diarrhea, abdominal surgeries, melena, hematochezia, hematemesis, hematuria, kidney stones, liver problems, she does have end-stage renal disease and undergoes hemodialysis Wednesdays and Fridays, has not traveled recently in has not been contact with anybody with [employer].? Other review systems were reviewed the remainder were negative. Past Medical History:? As above Ectopic Asthma Bronchitis Depression Osteopenia ? Past Surgical History: AV fistula creation CABG x3 Total right shoulder joint replacement Colonoscopy Bilateral carpal tunnel release surgery Left knee replacement surgery Right hip replacement surgery Family history:? Noncontributory Social History: ?Lives at home with her , used to drink frequently, unable to quantify, still an everyday smoker of about 4 cigarettes daily but used to smoke up to half pack for the past 30 years.? No drugs. CODE STATUS: FULL CODE Allergies: Doxycycline and duloxetine (anaphylaxis) Adderall and atenolol (caused difficulty breathing and shortness of breath) Home Medications: See Med Rec PHYSICAL EXAM: VS: ?82/50, 90, 18, 95% room air. General:? Alert oriented x3 no acute distress.? Speaking full sentences.? Speech is well articulated, thought process is coherent.? Following all commands. Skin:? Left hip, knee has multiple small incisions surgical sites with minimal serosanguineous material drainage noted in the lateral aspect of the knee.? The needs of however appears edematous in the medial aspect of the tibia trochanter without ecchymosis.? The remainder of the skin shows no lesions, erythema, edema. HEENT:? Head is normocephalic, atraumatic, pupils equal round reactive to light accommodation bilaterally.? Extraocular movements appear intact.? Buccal mucosa is moist, Neck is supple without lymphadenopathy. Cardiac:? Clear S1-S2, 4/6 holosystolic murmur noted best at the left lower sternal border. Pulmonary:? Clear to auscultation, no wheezes, rales or rhonchi. Abdomen:? Protuberant, positive bowel sounds in all 4 quadrants.? Soft, nontender, no rebound or guarding.? Musculoskeletal:? Moving upper extremities and right lower extremity upon request of the major joints without any problems at, crepitus or pain.? Left lower extremity range of motion is limited due to recent surgery but has good with: Of the toes. Neurologic:? As above, cranial nerves 2-12 are grossly intact.? No focal deficits noted. Vascular:? 2+ pulses upper and lower extremities distally. Less than 2nd capillary refill of the finger and toes bilaterally upper and lower extremities. No cyanosis SIGNIFICANT LABORATORY DATA:? As above REVIEW OF IMAGES: ?Reviewed ASSESSMENT : 1. Postop day 0 status post retrograde IMN left femur due to left periprosthetic distal femur fracture 2. Postoperative/post hemodialysis hypotension 3. Anemia of acute on chronic disease 4. Acute on chronic thrombocytopenia 5. End-stage renal disease on hemodialysis status post last session today 6. Hypervolemic hyponatremia 7. Asymptomatic coronary artery disease 8. Moderate to severe aortic stenosis 9. History of chronic CHF currently asymptomatic 10. History of DVT 11. Postsurgical left knee edema with questionable intra-articular surgical site hematoma PLAN OF CARE: Give 1 L of lactated Ringer's over 2 hours, check laboratories and manage accordingly based on her H&H, include lactic acid, hold any blood pressure medications, avoid opioids.? Discontinue nitroglycerin patch. Recheck labs in the morning, notify me if she becomes hypoxic, short of breath or in respiratory distress. Currently she is not toxic looking and she does not appear to be septic or in shock. Monitor the surgical site for signs of bleeding; latest H&H 7.9 and 24.0 respectively down from her admission H&H of 10.9 and 9.6. ?Recommend 1 pack of packed red blood cells at 80 cc an hour Given her renal history, recent surgery, patient could have adrenal insufficiency therefore recommend 100 mg of IV hydrocortisone x1. All the above was discussed with the hospitalist and her nurses.? Latest blood pressure taken by me manually 82/50.? Patient remains asymptomatic, talking to her son over the phone, following commands, mentating well and does not appear to be in any distress. GI PROPHYLAXIS: ?IV PPI DVT PROPHYLAXIS: ?Recommend pneumatic stockings Clinical update 04/23/2023 05:00 Patient is hemodynamically better with the latest blood pressure of 96/46; heart rate 68, respirations 18, O2 sat 95% on room air. Patient was seen again, she has no complaints including no lightheadedness or dizziness, no headache, no nausea vomiting, abdominal pain, she is somewhat embarrassed because she has had few semi liquid bowel movements which are brown in color but guaiac positive. The patient is receiving her 1st unit of packed red blood cells and there is no signs of fluid overload. There is no signs of acute hemorrhage or shock. Now that we know that hair anemia has a acute on chronic component and we have a possible source of her worsening anemia, I have ordered Protonix 80 mg IV push x1 followed by a 8 milligram/hour drip. The patient should have a GI consult in the morning. Again I do not believe the patient is septic or in shock. Her repeat lactic acid is 1.1. All the above was discussed with the internal medicine physician Dr. Merida and the nursing educator was also updated. I recommend rechecking a CBC after the 1st unit as she may need platelet transfusion as well given her ongoing thrombocytopenia and prior Eliquis intake. Critical care time used for critical evaluation of this patient, diagnosis, treatment and coordination of care, review her records and documentation TOTAL CRITICAL CARE TIME?120?MIN . discussion and coordination with consultants, completely separate from any procedures performed. Patient's care was discussed in detail with She is aware of all the above as well as the plan of care for this patient. ? PMFSH Past Medical History Medical History History of DVT (deep vein thrombosis) History of non-ST elevation myocardial infarction (NSTEMI) (~12/2020) Osteopenia ESRD (end stage renal disease) Interstitial lung disease Atherosclerotic cardiovascular disease Aortic stenosis CAD (coronary artery disease) PAF (paroxysmal atrial fibrillation) (~12/2020) Anemia Asthmatic bronchitis GERD (gastroesophageal reflux disease) CKD (chronic kidney disease), stage IV History of ectopic Depression Hypertension Functional capacity: independent ambulation Family History Family History Father No problems noted. Mother Myocardial infarction Surgical History Surgical History History of coronary artery bypass graft x 3 S/P arteriovenous (AV) fistula creation History of colonoscopy History of total replacement of right shoulder joint History of rectopexy History of left knee replacement History of carpal tunnel release of both wrists Social History Social History Household Members: Spouse Housing: House Do you presently have visiting nurse or other home services: No Alcohol intake: current Alcohol intake frequency: does not drink Patient Tobacco Use Status: Current everyday Tobacco user Tobacco use type: Cigarette Cigarettes Per Day: 4 Smoked in Last 30 Days: Yes Patient Interested in Nicotine Replacement: Yes Second Hand Smoke Exposure: No Use of substances other than those prescribed or required for medical reasons: No Currently Displaying Signs/Symptoms of Drug Intoxication Withdrawal: No Have you been hit, kicked, punched, or otherwise hurt by someone within the past year? If so, by whom?: No Do you feel safe in your current relationship?: Yes Is there a partner from a previous relationship who is making you feel unsafe now?: No Are you made to feel afraid or neglected: No Advance Directives: Yes Advance Directives on File: Yes Advance Directives Date on File: 03/10/23 Do you have thoughts of harming others: None Do you have a plan to hurt others: No Plan Recently lost weight without trying: No Eating poorly because of decreased appetite: No Patient : No service: No Current occupational status: retired Current occupation: young,right handed Meds Allergies Allergy/AdvReac Type Severity Reaction Status Date / Time atenolol [ATENOLOL] Allergy Severe DIFF Verified 04/06/23 09:59 BREATHING, heart races. doxycycline Allergy Severe Anaphylaxis Verified 04/06/23 09:59 duloxetine Allergy Severe Anaphylaxis Verified 04/06/23 09:59 amphetamine [Adderall] AdvReac Severe shortness Verified 04/06/23 09:59 of breath dextroamphetamine [Adderall] AdvReac Severe shortness Verified 04/06/23 09:59 of breath Active Medications: Current Medications Acetaminophen (Acetaminophen 325 Mg Tablet) 650 mg PO Q6H PRN PRN Reason: Pain, Mild (Pain Scale 1-3) Last Admin: 04/22/23 17:19 Dose: 650 mg Atorvastatin Calcium (Atorvastatin Calcium 80 Mg Tablet) 80 mg PO DAILY [facility] Last Admin: 04/22/23 09:43 Dose: 80 mg Carvedilol (Carvedilol 12.5 Mg Tablet) 12.5 mg PO BID [facility]; Protocol Last Admin: 04/22/23 20:18 Dose: Not Given Docusate Sodium (Docusate Sodium 100 Mg Capsule) 100 mg PO DAILY PRN PRN Reason: Constipation Fentanyl (Fentanyl Citrate/Pf 100 Mcg/2 Ml Vial) 25 mcg IVPUSH Q5M PRN; Protocol PRN Reason: Pain, Moderate(Pain Scale 4-6) Fluoxetine HCl (Fluoxetine Hcl 20 Mg Capsule) 20 mg PO DAILY [facility] Last Admin: 04/22/23 09:43 Dose: 20 mg Gabapentin (Gabapentin 300 Mg Capsule) 300 mg PO DAILY [facility] Last Admin: 04/22/23 09:44 Dose: 300 mg Hydromorphone HCl (Hydromorphone Hcl 0.5 Mg/0.5 Ml Syringe) 0.25 mg IVPUSH Q4H PRN; Protocol PRN Reason: Pain, Severe (Pain Scale 7-10) Last Admin: 04/22/23 14:33 Dose: 0.25 mg Lactated Ringer's (Lr) 1,000 mls @ 999 mls/hr IV .Q1H1M [facility] Stop: 04/23/23 01:44 Sodium Chloride (Ns) 100 mls @ 100 mls/hr IV ONCE ONE Stop: 04/23/23 00:52 Lidocaine (Lidocaine 4 % Patch Adh..Patch) 1 patch TRANSDERMA DAILY [facility]; Protocol Last Admin: 04/22/23 09:44 Dose: 1 patch Nitroglycerin (Nitroglycerin 0.4 Mg Patch.Td24) 0.4 mg TRANSDERMA DAILY@0400 [facility]; Protocol Last Admin: 04/21/23 08:30 Dose: 0.4 mg Ondansetron HCl (Ondansetron Hcl 4 Mg/2 Ml Vial) 4 mg IVPUSH Q8H PRN PRN Reason: Nausea and Vomiting Last Admin: 04/22/23 17:19 Dose: 4 mg Oxycodone HCl (Oxycodone Hcl Immed Release 5 Mg Tablet) 5 mg PO Q4H PRN PRN Reason: Pain, Severe (Pain Scale 7-10) Last Admin: 04/22/23 09:44 Dose: 5 mg Sevelamer Carbonate (Sevelamer Carbonate Tablet 800 Mg Tablet) 800 mg PO TIDWM [facility] Last Admin: 04/22/23 17:19 Dose: 800 mg Sodium Chloride (0.9 % Sodium Chloride Flush 3 Ml Syringe) 3 ml IVFLUSH QSHIFT [facility] Last Admin: 04/22/23 14:33 Dose: 3 ml Trazodone HCl (Trazodone Hcl 100 Mg Tablet) 100 mg PO BEDTIME [facility] Last Admin: 04/22/23 23:49 Dose: Not Given Home Medications Medication Instructions Recorded Confirmed Last Taken Type amlodipine 10 mg tablet 10 mg PO DAILY@1400 08/10/20 04/20/23 04/19/23 History acetaminophen 500 mg tablet 500 - 1,000 mg PO BID PRN Pain 10/30/22 04/20/23 04/19/23 History clonidine 0.2 mg/24 hr weekly 1 patch topical SA 10/30/22 04/20/23 04/19/23 History transdermal patch trazodone 100 mg tablet 1 tab PO BEDTIME 10/30/22 04/20/23 04/19/23 History gabapentin 300 mg capsule 300 mg PO DAILY 11/09/22 04/20/23 04/19/23 History furosemide 40 mg tablet (Lasix) 40 mg PO TUTHSA 03/07/23 04/20/23 04/18/23 History lisinopril 20 mg tablet 20 mg PO BID 03/07/23 04/20/23 04/19/23 History aspirin 81 mg chewable tablet 81 mg PO DAILY 03/10/23 04/20/23 04/19/23 History fluoxetine 20 mg capsule 20 mg PO DAILY 03/15/23 04/20/23 04/19/23 History nitroglycerin 0.4 mg/hr 0.4 mg transdermal DAILY@0400 04/20/23 04/20/23 04/19/23 History transdermal 24 hour patch sevelamer carbonate 800 mg tablet 800 mg PO TIDWM 04/20/23 04/20/23 04/19/23 History Physical Exam 2 Vital Signs: Vital Signs: Last Vital Signs Temp 97.4 F 04/22/23 19:36 Pulse 90 04/22/23 19:54 Resp 24 H 04/22/23 19:36 BP 80/40 L 04/22/23 21:40 Pulse Ox 95 04/22/23 19:36 O2 Del Method Room Air 04/22/23 19:36 BMI result Body Mass Index 22.6 Results Labs 04/23/23 16:28 04/23/23 06:43 Labs: Short CBC 04/22/23 04/22/23 Range/Units 06:38 23:23 WBC 10.9 H (4.8-10.8) X10*3/uL Hgb 10.3 L 7.9 L D (12.0-16.0) g/dl Hct 30.7 L 24.0 L D (37.0-47.0) % Plt Count 107 L (160-400) X10*3/uL BMP 04/22/23 06:38 Sodium 130 L Potassium 3.3 D Chloride 96 Carbon Dioxide 22 BUN 21 H Creatinine 3.07 H Calcium 8.6 D Assessment and Plan Time Spent With Patient Time: Total time managing care of this patient today ____ minutes.
[2023-04-23] VITALS (18 sets, daily range): BP systolic 70–145; BP diastolic 34–68; PULSE 66–86; RESP 14–20; TEMP 36.5–37.3; O2SAT 94–98
[2023-04-23 00:18] LABS: Lactic Acid 2.1 mmol/L (0.5-2.0)
[2023-04-23] MEDS: Lactated Ringers 500 ML IVCONT (00:37)
[2023-04-23 01:55] LABS: Reflex Lactate? Lactic Acid Added
[2023-04-23] MEDS: Acetaminophen 325 MG TABLET 650 MG PO (02:19)
[2023-04-23 02:24] LABS: ~Lactic Acid-LAB USE ONLY 1.1 mmol/L (0.5-2.0)
[2023-04-23 03:55] LABS: OBS Int Ctl Valid YES; OBS1 POSITIVE (NEGATIVE)
[2023-04-23 04:38] LABS: CDiff Gene PCR NEGATIVE (Negative)
[2023-04-23] MEDS: Pantoprazole Sodium 40 MG/10 ML VIAL 80 MG IVPUSH (05:56)
[2023-04-23] MEDS: Pantoprazole Sodium 80 MG in 0.9 % Sodium Chloride 80 ML 10 MG IV ×3 (05:56→23:19)
[2023-04-23 07:15] LABS: Hematocrit 27.6 % (37.0-47.0); Hemoglobin 9.1 g/dl (12.0-16.0); Mean Corpuscular Hemoglobin 30.7 pg (27.0-33.0); Mean Corpuscular Volume 93.2 fL (80.0-98.0); Mean Platelet Volume 10.3 fL (9.4-12.3); Platelet Count 106 X10*3/uL (160-400); Red Blood Count 2.96 X10*6/uL (4.20-5.50); Red Cell Distribution Width 16.5 % (11.0-16.0); White Blood Count 9.3 X10*3/uL (4.8-10.8)
--- NOTE | 2023-04-23 07:20 | PC.NURSE ---
1900: Handover received and acquired care of pt. Pt. sleepy but awakens to voice and painful stimuli. Pt. c/o severe pain to left knee 05/23. 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 Please refer to MD notifiications/VS/MAR for further details/interventions. Pt. received 1 Liter of LR over 1 hr. at 2004 and completed bolus at 2129 as pt. lost IV access during bolus. New IV obtained to right arm #22. Pt received Midodrine 10mg by mouth at 2004 and Clonidine patch removed at 2009. Pt. received Toradol 15mg IV x1 dose per Dr. Merida for c/o severe pain with minimal to no reliev. By 2139 pt. manual BP 80/40; pt. awake and alert at this time though very tearful. At 0 SBP 55 (see VS) and reported to Dr. Merida. ICU Vp Rheumatology in to see pt. at 2315 and throughout the night. Lactic acid ordered and critical result of 2.[address] Merida. Pt. received a total of 1 liter LR over 2 hrs. per new orders. Pt received 1 unit of RBC overnight. Pt. Hgb/Hct of 7.9/[address] Merida and pt. received 1 unit of RBC overnight. Pt. noted to have GI smelling flatulance and then inc. of loose brown BM with ring of burgundy on bad. Reported to Dr. Merida and sent for occult blood and tested Occult positive and reported to Dr. Merida. Pt. also hallucinating at times and disoriented to place, date and circumstances. Pt. inc. of a total of approx 4-6 small to moderate oozing of loose/brown stool. Pt. BP by this AM remains 80's to 90's. Handover to oncoming RN.
[2023-04-23 07:34] LABS: Anion Gap 13 (12-20); Blood Urea Nitrogen 28 mg/dL (9-16); Calcium 8.1 mg/dL (8.4-10.2); Carbon Dioxide 23 mmol/L (22-29); Chloride 99 mmol/L (96-108); Estimated Glomerular Filt Rate 11; Glucose Random 104 mg/dL (60-115); Potassium 4.2 mmol/L (3.3-5.1); Sodium 131 mmol/L (135-145)
[2023-04-23] MEDS: 0.9 % Sodium Chloride 1,000 ML 999 ML IV (08:09)
[2023-04-23] MEDS: 0.9 % Sodium Chloride Flush 3 ML SYRINGE IVFLUSH ×4 (08:12→21:44)
--- NOTE | 2023-04-23 08:33 | PM.EVENT ---
Event Note Date of Service: 04/23/23 Event Note: The patient was seen and evaluated this morning BP readings max 80s/40s overnight. Had IVF and blood transfusion with no significant improvement. feeling fatigued and oozy with no energy this morning. she likely needs more fluids and transfusions as she has and is preload dependent. Discussed with dr Hollins who agreed to transfer the patient to ICU for higher level of care, IVF and transfusions and in case pressors needed. Time Spent With Patient Time: Total time managing care of this patient today ____ minutes.
[2023-04-23] MEDS: Lidocaine 4 % Patch ADH..PATCH 1 PATCH TRANSDERMA (08:47)
--- NOTE | 2023-04-23 09:31 | P.ACPN_ITS ---
Advanced Care Planning Note Advanced Care Planning Note Discussed with: patient and family member(s) Time spent (in minutes): 60 Narrative: I was called to Ms. Ramos's room this AM for persistent hypotension. Ms. Ramos received 1 L IVF and 1 pRBC overnight. A POCUS was performed, which showed mildly reduced cardiac function, but a completely collapsible IVC. With some initial fluids, Ms. Ramos was alert, oriented, with improved BP to 130s/50s. In discussing with Ms. Ramos the next steps, which would include further volume resuscitation and possible ICU admission, Ms. Ramos expressed that she would not want to be resuscitated if her heart were to stop beating, would not want to be intubated or otherwise escalate to any oxygen delivery if she had difficult breathing, would not want to have catheters placed, nor artificial nutrition. She stated that her mother when Ms. Ramos was young, and that she would not want to suffer a her mother did. Ms. Ramos said I could let her daughter, Jo Ann, who is also her healthcare proxy that we had th is discussion and that her code status is now changed to DNR, DNI, DNE. I called Jo Ann, who stated that she and Ms. Ramos have discussed this extensively in the past, and that Ms. Ramos has expressed that she has been tired from her comorbidities, especially since her CABG. I offered any other clarification and encouraged Jo Ann to visit her mother when she is available. Problems Discussed (1) Acute hyponatremia: (2) Acute hyperkalemia: (3) Closed left femoral fracture: (4) ESRD (end stage renal disease):
[2023-04-23 10:22] LABS: Adenovirus F 40/41 Not Detected (Not Detect.); Astrovirus Not Detected (Not Detect.); Campylobacter Not Detected (Not Detect.); Cryptosporidium Not Detected (Not Detect.); Cyclospora cayetanensis Not Detected (Not Detect.); E. coli EAEC Not Detected (Not Detect.); E. coli EPEC Detected (Not Detect.); E. coli ETEC Not Detected (Not Detect.); E. coli STEC Not Detected (Not Detect.); Entamoeba histolytica Not Detected (Not Detect.); Giardia lamblia Not Detected (Not Detect.); Norovirus GI/GII Not Detected (Not Detect.); Plesiomonas shigelloides Not Detected (Not Detect.); Rotavirus A Not Detected (Not Detect.); Salmonella Not Detected (Not Detect.); Sapovirus Not Detected (Not Detect.); Shigella sp./EIEC Not Detected (Not Detect.); Vibrio Not Detected (Not Detect.); Vibrio Cholerae Not Detected (Not Detect.); Yersinia enterocolitica Not Detected (Not Detect.)
--- NOTE | 2023-04-23 11:55 | PM.PNORT ---
Subjective Subjective Date of Service: 04/23/23 Interval history: POD1 s/p Left femur IMN overnight he was hypotensive-received fluids and PRBC's she is resting in bed,no concerns at this time Physical Exam Vital Signs: Vital Signs: Last Vital Signs Temp 98.0 F 04/23/23 11:05 Pulse 71 04/23/23 11:05 Resp 20 04/23/23 11:05 BP 110/55 L 04/23/23 11:05 Pulse Ox 98 04/23/23 10:56 O2 Del Method Room Air 04/23/23 10:56 BMI result Body Mass Index 22.6 Const: General: cooperative, healthy appearing and no acute distress Resp: Effort & Inspection: normal respiratory effort and able to speak in complete sentences Cardio: Rate: regular rate Peripheral pulses: Peripheral pulses 2+ throughout GI: Palpation (GI): Soft to palpation Skin: General skin exam: no rashes or lesions noted Extrem: Other: left femur bandage c/d/i. sensation and pulses present. she can plantar and dorsi flex Procedures Date of Service Date of Service: 04/23/23 Progress Note: A&P Assessment and plan (1) Closed left femoral fracture: Status: Acute Assessment and Plan: pain control as needed PT/OT for left femur IMN-WBAT lovenox for dvt ppx-resume eliquis 48 hrs post op dispo -pending pt eval and medical management Time Spent With Patient Time: Total time managing care of this patient today ____ minutes. Quality Stroke Does the patient have a stroke diagnosis?: No VTE Prior VTE?: No VTE Risk Level:: Medical - moderate - high VTE Device Contraindication: N/A - Device Ordered VTE Drug Contraindication: Treatment Not Indicated
[2023-04-23] MEDS: Sevelamer Carbonate Tablet 800 MG TABLET PO ×2 (12:30→15:53)
--- NOTE | 2023-04-23 13:04 | HO.POSTANES ---
Post Anesthesia Evaluation Post Anesthesia Evaluation Date of Service: 04/22/23 Vital Signs: Vital Signs Temp Pulse Resp BP Pulse Ox O2 Del Method 04/23/23 11:05 98.0 F 71 20 110/55 L 04/23/23 10:56 98.0 F 71 20 110/55 L 98 Room Air 04/23/23 08:53 68 124/58 L 04/23/23 08:47 71 129/55 L 04/23/23 08:43 72 132/61 04/23/23 08:38 71 109/58 L 04/23/23 08:32 71 108/53 L 04/23/23 08:27 66 99/51 L 04/23/23 07:51 98.7 F 70 14 95/53 L 04/23/23 07:29 97.7 F 71 19 87/53 L 04/23/23 07:09 97.7 F 71 19 81/42 L 96 Room Air 04/23/23 05:15 96/46 L 04/23/23 04:20 84/42 L 94 Room Air 04/23/23 02:27 99.1 F 81 16 70/38 L 04/23/23 02:06 99.2 F 86 16 72/34 L Anesthesia: General LMA Mental Status: Awake Pain Control: Satisfactory Nausea/Vomiting: None Hydration: Adequate Anesthesia-Related Issues: No Anes. Related Issues
--- NOTE | 2023-04-23 13:39 | P.PNNP_ITS ---
Subjective Subjective Date of Service: 04/23/23 Interval history: dialyzed yesterday Physical Exam 2 Vital Signs: Vital Signs: Last Vital Signs Temp 98.0 F 04/23/23 11:05 Pulse 71 04/23/23 11:05 Resp 20 04/23/23 11:05 BP 110/55 L 04/23/23 11:05 Pulse Ox 98 04/23/23 10:56 O2 Del Method Room Air 04/23/23 10:56 BMI result Body Mass Index 22.6 Const: General: cooperative, comfortable and no acute distress Resp: Effort & Inspection: normal respiratory effort Auscultation: clear to auscultation bilaterally Cardio: Jugular venous distension: no JVD Rate: regular rate GI: Inspection: Yes normal to inspection Auscultation: normal bowel sounds Objective Data Labs 04/23/23 06:43 04/23/23 06:43 Labs: Laboratory Results - last 24 hr 04/20/23 04/22/23 04/22/23 20:27 23:23 23:53 WBC RBC Hgb 7.9 L D Hct 24.0 L D MCV MCH MCHC RDW Plt Count MPV Absolute Nucleated RBC Nucleated RBC % (auto) Sodium Potassium Chloride Carbon Dioxide Anion Gap BUN Creatinine Estim Creat Clear Calc Estimated GFR Random Glucose Lactic Acid 2.1 H* Lactic Acid F/U @ 2Hr Calcium Stool Occult Blood Stl C. cayetanensis PCR Stool Rotavirus A PCR Stl Adenov F 40/41 PCR Stool Astrovirus (PCR) Stool Campylobacter PCR Stool Cryptosporidium PCR Stl Sh Tox Pr E STEC PCR Stool E coli O157 PCR Stl Enterotoxigenic E PCR Stool EPEC (PCR) Stool EAEC (PCR) Stl E. histolytica PCR Stool Giardia Lamblia PCR Stl P. shigelloides PCR Stool Salmonella PCR Stool Sapovirus (PCR) Stl Shigella/EIEC PCR St Y.enterocolitica PCR Stool Vibrio (PCR) Stl Vibrio cholerae PCR Stl Norovirus GI/GII PCR C. difficile Tox B Gene Blood Type B Positive Antibody Screen POSITIVE Antibody Identification Anti-E NATALIE, Polyspecific NEGATIVE Crossmatch (AHG) See Detail 04/23/23 04/23/23 04/23/23 02:05 03:00 06:43 WBC 9.3 RBC 2.96 L Hgb 9.1 L Hct 27.6 L MCV 93.2 MCH 30.7 MCHC 33.0 RDW 16.5 H Plt Count 106 L MPV 10.3 Absolute Nucleated RBC 0.000 Nucleated RBC % (auto) 0.0 Sodium 131 L Potassium 4.2 D Chloride 99 Carbon Dioxide 23 Anion Gap 13 BUN 28 H Creatinine 4.04 H* Estim Creat Clear Calc 9.0 Estimated GFR 11 Random Glucose 104 Lactic Acid Lactic Acid F/U @ 2Hr 1.1 Calcium 8.1 L Stool Occult Blood POSITIVE Stl C. cayetanensis PCR Not Detected Stool Rotavirus A PCR Not Detected Stl Adenov F 40/41 PCR Not Detected Stool Astrovirus (PCR) Not Detected Stool Campylobacter PCR Not Detected Stool Cryptosporidium PCR Not Detected Stl Sh Tox Pr E STEC PCR Not Detected Stool E coli O157 PCR Not applicable Stl Enterotoxigenic E PCR Not Detected Stool EPEC (PCR) Detected A Stool EAEC (PCR) Not Detected Stl E. histolytica PCR Not Detected Stool Giardia Lamblia PCR Not Detected Stl P. shigelloides PCR Not Detected Stool Salmonella PCR Not Detected Stool Sapovirus (PCR) Not Detected Stl Shigella/EIEC PCR Not Detected St Y.enterocolitica PCR Not Detected Stool Vibrio (PCR) Not Detected Stl Vibrio cholerae PCR Not Detected Stl Norovirus GI/GII PCR Not Detected C. difficile Tox B Gene NEGATIVE Blood Type Antibody Screen Antibody Identification NATALIE, Polyspecific Crossmatch (AHG) Procedures Date of Service Date of Service: 04/23/23 Assessment & Plan Assessment and plan (1) Closed left femoral fracture: Status: Acute (2) Acute hyperkalemia: Status: Acute (3) Lung mass: Status: Acute (4) ESRD (end stage renal disease): Status: Acute (5) Hemodialysis patient: Status: Acute Plan Ms. Maryam Ramos is a 73-year-old female with a PMH significant for?paroxysmal AFib on Eliquis, ESRD on hemodialysis (M/W/F), carotid stenosis, CAD s/p CABG, interstitial lung disease, HTN, HFrEF, and recently diagnosed adenocarcinoma of left lower lung (05/11/2023) who presents to the ED with?left knee and hip pain after a fall at home. Pt will be admitted to the hospital for treatment and further evaluation of broken left femur. She presented hyperkalemic as she missed HD on day of presentation. Dialyzed urgently on 04/20/23 HD next will be on Monday per TTS schedule cw sevelamer EPO and Venofer dosed 04/21/23 Time Spent With Patient Time: Total time managing care of this patient today ____ minutes. Progress Note: Quality Stroke Does the patient have a stroke diagnosis?: No
--- NOTE | 2023-04-23 16:07 | P.PNIM_ITS ---
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, mentation improved as BP improved with more blood and fluids Review of Systems Review of Systems: Yes all other systems are reviewed and are negative Physical Exam 2 Vital Signs: Vital Signs: Last Vital Signs Temp 98.0 F 04/23/23 11:05 Pulse 71 04/23/23 11:05 Resp 20 04/23/23 11:05 BP 110/55 L 04/23/23 11:05 Pulse Ox 98 04/23/23 10:56 O2 Del Method Room Air 04/23/23 10:56 BMI result Body Mass Index 22.6 Const: Other: Constitutional : Awake, interactive, not in distress Neck : Normal inspection, Supple Cardiovascular : RRR, no JVP, no lower extremity edema Respiratory : good bilateral air entry, no crackles, wheezes or rhonchi Gastrointestinal: soft, lax, Normal bowel sounds, Non tender Skin : Warm, Dry Skeletal: left leg shorter and externally rotated Neurological : Alert & oriented x3, No focal deficit Objective Data Active Medications Acetaminophen (Acetaminophen 325 Mg Tablet) 650 mg PO Q6H PRN PRN Reason: Pain, Mild (Pain Scale 1-3) Last Admin: 04/23/23 02:19 Dose: 650 mg Documented By: DELISA Atorvastatin Calcium (Atorvastatin Calcium 80 Mg Tablet) 80 mg PO DAILY [facility] Last Admin: 04/23/23 08:13 Dose: Not Given Documented By: PENNIE Non-Admin Reason: NPO Carvedilol (Carvedilol 12.5 Mg Tablet) 12.5 mg PO BID [facility]; Protocol Last Admin: 04/23/23 08:13 Dose: Not Given Documented By: PENNIE Non-Admin Reason: NPO Docusate Sodium (Docusate Sodium 100 Mg Capsule) 100 mg PO DAILY PRN PRN Reason: Constipation Fentanyl (Fentanyl Citrate/Pf 100 Mcg/2 Ml Vial) 25 mcg IVPUSH Q5M PRN; Protocol PRN Reason: Pain, Moderate(Pain Scale 4-6) Fluoxetine HCl (Fluoxetine Hcl 20 Mg Capsule) 20 mg PO DAILY [facility] Last Admin: 04/23/23 08:13 Dose: Not Given Documented By: PENNIE Non-Admin Reason: NPO Gabapentin (Gabapentin 300 Mg Capsule) 300 mg PO DAILY [facility] Last Admin: 04/23/23 08:13 Dose: Not Given Documented By: PENNIE Non-Admin Reason: NPO Hydromorphone HCl (Hydromorphone Hcl 0.5 Mg/0.5 Ml Syringe) 0.25 mg IVPUSH Q4H PRN; Protocol PRN Reason: Pain, Severe (Pain Scale 7-10) Last Admin: 04/22/23 14:33 Dose: 0.25 mg Documented By: PENNIE Pantoprazole Sodium 80 mg/ (Sodium Chloride) 100 mls @ 10 mls/hr IV .Q10H [facility] Last Admin: 04/23/23 15:44 Dose: 8 mg/hr, 10 mls/hr Documented By: PENNIE Lidocaine (Lidocaine 4 % Patch Adh..Patch) 1 patch TRANSDERMA DAILY [facility]; Protocol Last Admin: 04/23/23 08:47 Dose: 1 patch Documented By: PENNIE Nitroglycerin (Nitroglycerin 0.4 Mg Patch.Td24) 0.4 mg TRANSDERMA DAILY@0400 [facility]; Protocol Last Admin: 04/23/23 05:08 Dose: Not Given Documented By: DELISA Non-Admin Reason: per Dr. Bridges hypotensive. Ondansetron HCl (Ondansetron Hcl 4 Mg/2 Ml Vial) 4 mg IVPUSH Q8H PRN PRN Reason: Nausea and Vomiting Last Admin: 04/22/23 17:19 Dose: 4 mg Documented By: PENNIE Oxycodone HCl (Oxycodone Hcl Immed Release 5 Mg Tablet) 5 mg PO Q4H PRN PRN Reason: Pain, Severe (Pain Scale 7-10) Last Admin: 04/22/23 09:44 Dose: 5 mg Documented By: PENNIE Sevelamer Carbonate (Sevelamer Carbonate Tablet 800 Mg Tablet) 800 mg PO TIDWM [facility] Last Admin: 04/23/23 15:53 Dose: 800 mg Documented By: PENNIE Sodium Chloride (0.9 % Sodium Chloride Flush 3 Ml Syringe) 3 ml IVFLUSH QSHIFT [facility] Last Admin: 04/23/23 15:45 Dose: 3 ml Documented By: PENNIE Trazodone HCl (Trazodone Hcl 100 Mg Tablet) 100 mg PO BEDTIME DIMITRY Last Admin: 04/22/23 23:49 Dose: Not Given Documented By: DELISA Non-Admin Reason: hypoactive. Labs 04/23/23 06:43 04/23/23 06:43 Labs: Laboratory Results - last 24 hr 04/20/23 04/22/23 04/23/23 20:27 23:53 02:05 MCV MCH MCHC RDW Plt Count MPV Absolute Nucleated RBC Nucleated RBC % (auto) Anion Gap Estim Creat Clear Calc Estimated GFR Random Glucose Lactic Acid 2.1 H* Lactic Acid F/U @ 2Hr 1.1 Calcium Stool Occult Blood Stl C. cayetanensis PCR Stool Rotavirus A PCR Stl Adenov F 40/ PCR Stool Astrovirus (PCR) Stool Campylobacter PCR Stool Cryptosporidium PCR Stl Sh Tox Pr E STEC PCR Stool E coli O157 PCR Stl Enterotoxigenic E PCR Stool EPEC (PCR) Stool EAEC (PCR) Stl E. histolytica PCR Stool Giardia Lamblia PCR Stl P. shigelloides PCR Stool Salmonella PCR Stool Sapovirus (PCR) Stl Shigella/EIEC PCR St Y.enterocolitica PCR Stool Vibrio (PCR) Stl Vibrio cholerae PCR Stl Norovirus GI/GII PCR C. difficile Tox B Gene Blood Type B Positive Antibody Screen POSITIVE Antibody Identification Anti-E NATALIE, Polyspecific NEGATIVE Crossmatch (AHG) See Detail 04/23/23 04/23/23 03:00 06:43 MCV 93.2 MCH 30.7 MCHC 33.0 RDW 16.5 H Plt Count 106 L MPV 10.3 Absolute Nucleated RBC 0.000 Nucleated RBC % (auto) 0.0 Anion Gap 13 Estim Creat Clear Calc 9.0 Estimated GFR 11 Random Glucose 104 Lactic Acid Lactic Acid F/U @ 2Hr Calcium 8.1 L Stool Occult Blood POSITIVE Stl C. cayetanensis PCR Not Detected Stool Rotavirus A PCR Not Detected Stl Adenov F 40/ PCR Not Detected Stool Astrovirus (PCR) Not Detected Stool Campylobacter PCR Not Detected Stool Cryptosporidium PCR Not Detected Stl Sh Tox Pr E STEC PCR Not Detected Stool E coli O157 PCR Not applicable Stl Enterotoxigenic E PCR Not Detected Stool EPEC (PCR) Detected A Stool EAEC (PCR) Not Detected Stl E. histolytica PCR Not Detected Stool Giardia Lamblia PCR Not Detected Stl P. shigelloides PCR Not Detected Stool Salmonella PCR Not Detected Stool Sapovirus (PCR) Not Detected Stl Shigella/EIEC PCR Not Detected St Y.enterocolitica PCR Not Detected Stool Vibrio (PCR) Not Detected Stl Vibrio cholerae PCR Not Detected Stl Norovirus GI/GII PCR Not Detected C. difficile Tox B Gene NEGATIVE Blood Type Antibody Screen Antibody Identification NATALIE, Polyspecific Crossmatch (AHG) Assessment and Plan (1) Acute hyponatremia: Status: Acute (2) Acute hyperkalemia: Status: Acute (3) Closed left femoral fracture: Status: Acute (4) ESRD (end stage renal disease): Status: Acute (5) Hypotension: Status: Acute Plan Pt is a 73-year-old female with a PMH significant for?paroxysmal AFib on Eliquis, ESRD on hemodialysis (M/W/F), carotid stenosis, CAD s/p CABG, interstitial lung disease, HTN, HFrEF, and recently diagnosed adenocarcinoma of left lower lung (05/11/2023) who presents to the ED with?left knee and hip pain after a fall at home. Pt will be admitted to the hospital for treatment and further evaluation of broken left femur with likely surgical procedure and missed dialysis with emergent dialysis. Hypotension secondary to dehydration post HD, anesthesia, blood loss Improved with IV boluses and PRBCs transfusion continue to monitor the need of IVF and PRBCs as she has and is a preload dependent Acute on chronic anemia GIB with positive occult stool Hb of 9.1 this morning after total of 4 units transfusion follow H&H and transfuse as needed to keep HCT > 30 Left femur fracture POD 1 Left knee x-ray found displaced comminuted overlapping distal femoral periprosthetic fracture Analgesics for pain management Orthopedics following Pneumatic boots for DVT prophylaxis Acute hyponatremia Post dialysis , improved Nephro following PseudoHypercalcemia corrected Ca of 8.3 Hyperkalemia resolved ESRD on hemodialysis M/W/F Nephrology consult Had emergent dialysis on admission, to repeat tomorrow Paroxysmal AFib Hold Eliquis d/t likely surgical procedure Last took Eliquis last night on 04/19/2023 Hold carvedilol d/t soft BP HFrEF Not in acute exacerbation Hold home Lasix d/t soft BP HTN Hold BP meds Lung mass Pt with recently diagnosed adenocarcinoma of left lung Follow up outpatient with oncology Full Code DVT Prophylaxis: Pneumatic boots d/t likely surgical procedure tomorrow Pt will require a hospitalization overnight for treatment of?left periprosthetic femur fracture with likely surgical procedure Time Spent With Patient Time: Total time managing care of this patient today ____ minutes. Quality Stroke Does the patient have a stroke diagnosis?: No VTE Prior VTE?: No VTE Risk Level:: Medical - moderate - high VTE Device Contraindication: N/A - Device Ordered VTE Drug Contraindication: Treatment Not Indicated
[2023-04-23 17:01] LABS: Hematocrit 29.5 % (37.0-47.0); Hemoglobin 9.9 g/dl (12.0-16.0); Mean Corpuscular HGB Conc 33.6 g/dl (31.0-35.0); Mean Corpuscular Hemoglobin 31.5 pg (27.0-33.0); Mean Corpuscular Volume 93.9 fL (80.0-98.0); Mean Platelet Volume 10.3 fL (9.4-12.3); PLT CLUMP 1; Red Blood Count 3.14 X10*6/uL (4.20-5.50); Red Cell Distribution Width 16.4 % (11.0-16.0)
[2023-04-23 17:02] LABS: White Blood Count 5.3 X10*3/uL (4.8-10.8)
[2023-04-23 17:03] LABS: Platelet Count 89 X10*3/uL (160-400)
--- NOTE | 2023-04-23 18:28 | P.EN_ITS ---
Event Note Date of Service: 04/23/23 Event Note: GI Consult-Full note dictated-Hx via patient, RN, and EMR. Imp: Lower GI bleeding with maroon stools, although with just a brown BM today. She had a negative colonoscopy in [address] Monteiro. She did have a recent PET CT for w/u of a recently diagnosed lung cancer. The PET-CT report describes some activity in the cecum, as well as at the site of her lung cancer. She denies any localizing GI complaints at the present time such as abdominal pain, N/V, diarrhea, heartburn. Diff dx: Probable lower GI bleeding from diverticular disease or ischemic colitis. I don't think the PET-CT finding would account for her current bleeding. Rec: Supportive care. I don't think she is good candidate for a colonoscopy at the present time given the recent orthopedic surgery and her other comorbidities. F/U Hgb and transfuse as needed. Avoid all blood thinners. At seth e point she can be referred for an outpatient colonoscopy when she is more stable and clinically up to it . If she has recurrent significant lower GI bleeding here I would recommend a stat abdominal/pelvic CT bleeding study. Please call if I can be of further assistance. Thanks Time Spent With Patient Time: Total time managing care of this patient today ____ minutes.
[2023-04-23] MEDS: HYDROmorphone HCl 0.5 MG/0.5 ML SYRINGE 0.25 MG IVPUSH (21:47)
[2023-04-24] VITALS (11 sets, daily range): BP systolic 108–182; BP diastolic 58–82; PULSE 70–85; RESP 16–20; TEMP 36.6–37.4; O2SAT 94–98
--- NOTE | 2023-04-24 00:19 | CONS_ITS ---
DATE OF SERVICE: 04/23/2023 REASON FOR CONSULTATION: Lower GI bleeding and anemia. HISTORY OF PRESENT ILLNESS: This has been obtained from the patient, her nurse, and the medical record. The patient is a 73-year-old female with multiple medical problems including chronic renal failure, for which she is on hemodialysis and orthopedic surgery yesterday for a distal femur fracture. The patient had been admitted to the hospital for this on April 20. She was noted to have problems with significant anemia with a hemoglobin of 9.6 on admission, dropping to as low as 7.4. She did receive transfusions with a rise in her hemoglobin up to 10.3, but again dropped to 7.9 last evening, which was postoperatively. Her preop hemoglobin yesterday morning was 10.3. Her hemoglobin today was 9.1 this morning and repeat this afternoon was 9.9. She has been described as having a maroon bloody bowel movement, but today was described as only having brown stool without any sign of bleeding. The patient did have a negative colonoscopy [place] [address] Monteiro. She describes that generally her bowel movements have been stable at home prior to her recent injury. She has a fairly good appetite. Denies any significant heartburn or dysphagia. She denies any abdominal pain at the present time. Of note, she was diagnosed with a recent lung cancer on biopsy and underwent a PET-CT scan recently that describes the known lung cancer, but also showed some activity in the area of the cecum for which the radiologist recommended a colonoscopy to rule out any lesion. Since admission here, she has received a total of 4 units of blood. She denies any known family history of colorectal cancer. CURRENT MEDICATIONS: Acetaminophen, atorvastatin, Colace, fentanyl p.r.n., fluoxetine, gabapentin, Dilaudid p.r.n., lidocaine patch, Zofran p.r.n., oxycodone p.r.n., IV pantoprazole, trazodone, and Sevelamer carbonate. PAST MEDICAL HISTORY: Orthopedic surgery yesterday for the left distal femur fracture. She has also had a previous left knee replacement. Right hip replacement. She has a history of chronic renal failure for which she is on hemodialysis. Recently diagnosed lung cancer as above. Hypertension. She has been on Eliquis for atrial fibrillation, coronary artery disease with previous coronary artery bypass. She has interstitial lung disease. History of DVT. Previous CA. Aortic stenosis. Depression. SOCIAL HISTORY: She does smoke 2 cigarettes a day. She denies any alcohol. She is . FAMILY HISTORY: Noncontributory. REVIEW OF SYSTEMS: CONSTITUTIONAL: She has been feeling generally in poor health in relation to all of her medical problems. CARDIAC: No chest pain. PULMONARY: No coughing nor hemoptysis. GI: As above. URINARY: No dysuria, no hematuria. NEUROLOGIC: No headache or seizures. PHYSICAL EXAMINATION: GENERAL: The patient is an elderly female, but in no distress. SKIN: Warm and dry. Anicteric sclerae. Moist mucous membranes. CHEST: Clear. CARDIAC: Normal S1, S2 with a systolic murmur. ABDOMEN: Soft, nondistended, nontender without palpable mass. LABORATORY DATA: As above. Her most recent CBC from this afternoon showed a white blood cell count of 5.3, hemoglobin 9.9, MCV 94, platelets 89,000. PT in March was 10.5, INR 0.9, sodium 131, potassium 4.2, BUN 28, creatinine 4.0, calcium 8.1. Stool has been heme-positive. PET-CT scan as above. IMPRESSION: The patient is a 73-year-old female with multiple comorbidities, as well as being 24 hours status post orthopedic surgery for a fractured distal left femur, who has been having some GI bleeding and anemia. At the present time, she appears stable with a benign abdomen. Her stool is described as brown today and her hemoglobin has been stable. I suspect her bleeding was most likely in relation to either diverticular disease or possible ischemic colitis. She does not appear to be having any active bleeding at the present time. At this point, I do not think she is a good candidate for colonoscopy given her recent surgery from yesterday plus all of her other comorbidities. I would continue supportive care as you are doing. I would check a PT with INR since her last one was from back in March just to be sure it is normal and does not need any correction with vitamin K and/or FFP. I would avoid any blood thinners for the time being. At some point, when things are more stable and she is stronger, then perhaps, we can consider an outpatient colonoscopy both in regard to the recent bleeding and the abnormal PET-CT scan. However at this point, I do not think that is a good idea, particularly for the immediate time being while she is here in the hospital until she recuperates from the recent surgery and is stronger in general. If she develops any significant recurrent lower GI bleeding while here in the hospital I would obtain a stat abdominal and pelvic CT scan bleeding study. If things remain stable, I would otherwise continue her diet and observation. Please contact me if I could be of any further assistance. Thank you for the consultation. MD BETSY Cummings/RONNIE / [phone] MTDJustin
[2023-04-24] MEDS: Nitroglycerin 0.4 MG PATCH.TD24 TRANSDERMA (03:59)
[2023-04-24] MEDS: HYDROmorphone HCl 0.5 MG/0.5 ML SYRINGE 0.25 MG IVPUSH ×4 (06:33→21:37)
[2023-04-24 07:23] LABS: Hematocrit 26.7 % (37.0-47.0); Hemoglobin 8.6 g/dl (12.0-16.0); Mean Corpuscular HGB Conc 32.2 g/dl (31.0-35.0); Mean Corpuscular Hemoglobin 30.7 pg (27.0-33.0); Mean Corpuscular Volume 95.4 fL (80.0-98.0); Mean Platelet Volume 10.3 fL (9.4-12.3); Red Cell Distribution Width 16.6 % (11.0-16.0); White Blood Count 5.4 X10*3/uL (4.8-10.8)
[2023-04-24 07:26] LABS: Platelet Count 97 X10*3/uL (160-400)
[2023-04-24 07:36] LABS: Anion Gap 15 (12-20); Blood Urea Nitrogen 39 mg/dL (9-16); Calcium 7.9 mg/dL (8.4-10.2); Carbon Dioxide 21 mmol/L (22-29); Chloride 102 mmol/L (96-108); Glucose Random 108 mg/dL (60-115); Potassium 4.6 mmol/L (3.3-5.1); Sodium 133 mmol/L (135-145)
[2023-04-24 07:44] LABS: Creatinine Clr Calc Pharmacy 7.3; Estimated Glomerular Filt Rate 8
[2023-04-24] MEDS: Gabapentin 300 MG CAPSULE PO (08:03)
[2023-04-24] MEDS: Atorvastatin Calcium 80 MG TABLET PO (08:03)
[2023-04-24] MEDS: FLUoxetine HCl 20 MG CAPSULE PO (08:03)
[2023-04-24] MEDS: Lidocaine 4 % Patch ADH..PATCH 1 PATCH TRANSDERMA (08:04)
[2023-04-24] MEDS: 0.9 % Sodium Chloride Flush 3 ML SYRINGE IVFLUSH ×3 (08:04→19:59)
[2023-04-24] MEDS: oxyCODONE HCl Immed Release 5 MG TABLET PO ×3 (08:07→23:58)
--- NOTE | 2023-04-24 08:45 | PM.PNORT ---
Subjective Subjective Date of Service: 04/24/23 Interval history: POD2 s/p Left femur IMN. No overnight events. BP is currently stable. Patient reports no pain. She is eating breakfast in bed comfortably. No additional complaints. Physical Exam Vital Signs: Vital Signs: Last Vital Signs Temp 98.6 F 04/24/23 07:45 Pulse 70 04/24/23 07:45 Resp 18 04/24/23 07:45 BP 110/63 04/24/23 07:45 Pulse Ox 94 04/24/23 07:45 O2 Del Method Room Air 04/24/23 07:45 BMI result Body Mass Index 22.6 Const: General: cooperative, healthy appearing and no acute distress Resp: Effort & Inspection: normal respiratory effort and able to speak in complete sentences Cardio: Rate: regular rate Peripheral pulses: Peripheral pulses 2+ throughout GI: Palpation (GI): Soft to palpation Skin: General skin exam: no rashes or lesions noted Extrem: Other: Left distal femur bandages are c/d/i. Sensation intact. Pedal pulse intact. Able to plantar/dorsi flex. Procedures Date of Service Date of Service: 04/24/23 Progress Note: A&P Assessment and plan (1) Closed left femoral fracture: Status: Acute Assessment and Plan: pain control as needed PT/OT for left femur IMN-WBAT Resumed eliquis 48 hrs post op dispo -pending pt eval and medical management Time Spent With Patient Time: Total time managing care of this patient today ____ minutes. Quality Stroke Does the patient have a stroke diagnosis?: No VTE Prior VTE?: No VTE Risk Level:: Medical - moderate - high VTE Device Contraindication: N/A - Device Ordered VTE Drug Contraindication: Treatment Not Indicated
[2023-04-24] MEDS: Pantoprazole Sodium 80 MG in 0.9 % Sodium Chloride 80 ML 10 MG IV ×2 (08:50→18:35)
[2023-04-24] MEDS: Apixaban 2.5 MG TABLET PO ×2 (11:42→19:58)
--- NOTE | 2023-04-24 11:52 | MHC.CM.PN ---
PER MD ROUNDS, PT NOT YET READY TO DC DCP REMAINS STR IN A SNF THAT CAN MANAGE PTS HD BOTH [facility] ARE FOLLOWING UPDATES SENT
--- NOTE | 2023-04-24 15:24 | P.PNIM_ITS ---
Subjective Subjective Date of Service: 04/24/23 Interval History: Seen and evaluated this morning BP improved Hyponatremia of 133 Hb dropped to 8.6, no more reported rectal bleeding today More alert and interactive Review of Systems Review of Systems: Yes all other systems are reviewed and are negative Physical Exam 2 Vital Signs: Vital Signs: Last Vital Signs Temp 98.7 F 04/24/23 12:22 Pulse 80 04/24/23 12:22 Resp 18 04/24/23 12:22 BP 142/66 H 04/24/23 12:22 Pulse Ox 98 04/24/23 11:36 O2 Del Method Room Air 04/24/23 11:36 BMI result Body Mass Index 22.6 Const: Other: Constitutional : Awake, interactive, not in distress Neck : Normal inspection, Supple Cardiovascular : RRR, no JVP, no lower extremity edema Respiratory : good bilateral air entry, no crackles, wheezes or rhonchi Gastrointestinal: soft, lax, Normal bowel sounds, Non tender Skin : Warm, Dry Skeletal: left leg distal femur in dressing, mild swelling and warmth Neurological : Alert & oriented x3, No focal deficit Objective Data Active Medications Acetaminophen (Acetaminophen 325 Mg Tablet) 650 mg PO Q6H PRN PRN Reason: Pain, Mild (Pain Scale 1-3) Last Admin: 04/23/23 02:19 Dose: 650 mg Documented By: DELISA Apixaban (Apixaban 2.5 Mg Tablet) 2.5 mg PO BID [facility] Last Admin: 04/24/23 11:42 Dose: 2.5 mg Documented By: LAURA Atorvastatin Calcium (Atorvastatin Calcium 80 Mg Tablet) 80 mg PO DAILY [facility] Last Admin: 04/24/23 08:03 Dose: 80 mg Documented By: LAURA Carvedilol (Carvedilol 12.5 Mg Tablet) 12.5 mg PO BID [facility]; Protocol Last Admin: 04/23/23 08:13 Dose: Not Given Documented By: PENNIE Non-Admin Reason: NPO Docusate Sodium (Docusate Sodium 100 Mg Capsule) 100 mg PO DAILY PRN PRN Reason: Constipation Fentanyl (Fentanyl Citrate/Pf 100 Mcg/2 Ml Vial) 25 mcg IVPUSH Q5M PRN; Protocol PRN Reason: Pain, Moderate(Pain Scale 4-6) Fluoxetine HCl (Fluoxetine Hcl 20 Mg Capsule) 20 mg PO DAILY [facility] Last Admin: 04/24/23 08:03 Dose: 20 mg Documented By: LAURA Gabapentin (Gabapentin 300 Mg Capsule) 300 mg PO DAILY [facility] Last Admin: 04/24/23 08:03 Dose: 300 mg Documented By: LAURA Hydromorphone HCl (Hydromorphone Hcl 0.5 Mg/0.5 Ml Syringe) 0.25 mg IVPUSH Q4H PRN; Protocol PRN Reason: Pain, Severe (Pain Scale 7-10) Last Admin: 04/24/23 11:41 Dose: 0.25 mg Documented By: LAURA Pantoprazole Sodium 80 mg/ (Sodium Chloride) 100 mls @ 10 mls/hr IV .Q10H [facility] Last Admin: 04/24/23 08:50 Dose: 8 mg/hr, 10 mls/hr Documented By: LAURA Lidocaine (Lidocaine 4 % Patch Adh..Patch) 1 patch TRANSDERMA DAILY [facility]; Protocol Last Admin: 04/24/23 08:04 Dose: 1 patch Documented By: LAURA Nitroglycerin (Nitroglycerin 0.4 Mg Patch.Td24) 0.4 mg TRANSDERMA DAILY@0400 [facility]; Protocol Last Admin: 04/24/23 03:59 Dose: 0.4 mg Documented By: ABDIRASHID Ondansetron HCl (Ondansetron Hcl 4 Mg/2 Ml Vial) 4 mg IVPUSH Q8H PRN PRN Reason: Nausea and Vomiting Last Admin: 04/22/23 17:19 Dose: 4 mg Documented By: PENNIE Oxycodone HCl (Oxycodone Hcl Immed Release 5 Mg Tablet) 5 mg PO Q4H PRN PRN Reason: Pain, Severe (Pain Scale 7-10) Last Admin: 04/24/23 08:07 Dose: 5 mg Documented By: LAURA Sevelamer Carbonate (Sevelamer Carbonate Tablet 800 Mg Tablet) 800 mg PO TIDWM [facility] Last Admin: 04/24/23 11:39 Dose: Not Given Documented By: LAURA Non-Admin Reason: Patient Refused Sodium Chloride (0.9 % Sodium Chloride Flush 3 Ml Syringe) 3 ml IVFLUSH QSHIFT [facility] Last Admin: 04/24/23 08:04 Dose: 3 ml Documented By: LAURA Trazodone HCl (Trazodone Hcl 100 Mg Tablet) 100 mg PO BEDTIME DIMITRY Last Admin: 04/23/23 21:43 Dose: Not Given Documented By: ABDIRASHID Non-Admin Reason: Patient Asleep Labs 04/24/23 06:13 04/24/23 06:13 Labs: Laboratory Results - last 24 hr 04/20/23 04/23/23 04/24/23 20:27 16:28 06:13 MCV 93.9 95.4 MCH 31.5 30.7 MCHC 33.6 32.2 RDW 16.4 H 16.6 H Plt Count 89 L 97 L MPV 10.3 10.3 Absolute Nucleated RBC 0.000 0.000 Nucleated RBC % (auto) 0.0 0.0 Anion Gap 15 Estim Creat Clear Calc 7.3 Estimated GFR 8 Random Glucose 108 Calcium 7.9 L Blood Type B Positive Antibody Screen POSITIVE Antibody Identification Anti-E NATALIE, Polyspecific NEGATIVE Crossmatch (AHG) See Detail 04/24/23 04/24/23 08:24 08:24 MCV MCH MCHC RDW Plt Count MPV Absolute Nucleated RBC Nucleated RBC % (auto) Anion Gap Estim Creat Clear Calc Estimated GFR Random Glucose Calcium Blood Type B Positive Antibody Screen POSITIVE Antibody Identification Anti-C Anti-E NATALIE, Polyspecific Crossmatch (AHG) See Detail Assessment and Plan (1) Hypotension: Status: Acute (2) Acute hyponatremia: Status: Acute (3) Acute hyperkalemia: Status: Acute (4) Closed left femoral fracture: Status: Acute Plan Pt is a 73-year-old female with a PMH significant for?paroxysmal AFib on Eliquis, ESRD on hemodialysis (M/W/F), carotid stenosis, CAD s/p CABG, interstitial lung disease, HTN, HFrEF, and recently diagnosed adenocarcinoma of left lower lung (05/11/2023) who presents to the ED with?left knee and hip pain after a fall at home. Pt will be admitted to the hospital for treatment and further evaluation of broken left femur with likely surgical procedure and missed dialysis with emergent dialysis. Hypotension resolved, secondary to dehydration post HD, anesthesia, blood loss Improved with IV boluses and PRBCs transfusion continue to monitor the need of IVF and PRBCs as she has and is a preload dependent Acute on chronic anemia 2/2 GIB GIB with positive occult stool Hb of 8.6 this morning after total of 4 units transfusion, to give 1 more unit follow H&H and transfuse as needed to keep HCT > 30 GI input appreciated, hold on all AC, outpatient colonoscopy when she is in better shape Left femur fracture POD 2 Left knee x-ray found displaced comminuted overlapping distal femoral periprosthetic fracture Analgesics for pain management Orthopedics following Pneumatic boots for DVT prophylaxis Acute hyponatremia Post dialysis , improved to 133 Nephro following PseudoHypercalcemia corrected Ca of 8.3 Hyperkalemia resolved ESRD on hemodialysis M/W/F Nephrology consult Had emergent dialysis on admission, to repeat tomorrow Paroxysmal AFib Hold Eliquis for GIB Last took Eliquis on 04/19/2023 Hold carvedilol d/t soft BP, restart as tolerated HFrEF Not in acute exacerbation Hold home Lasix d/t soft BP HTN Hold BP meds Lung mass Pt with recently diagnosed adenocarcinoma of left lung Follow up outpatient with oncology Full Code DVT Prophylaxis: Pneumatic boots d/t GIB Pt will require a hospitalization overnight for treatment of blood loss anemia, post?left periprosthetic femur fracture pending safe discharge plan Time Spent With Patient Time: Total time managing care of this patient today ____ minutes. Quality Stroke Does the patient have a stroke diagnosis?: No VTE Prior VTE?: No VTE Risk Level:: Medical - moderate - high VTE Device Contraindication: N/A - Device Ordered VTE Drug Contraindication: Treatment Not Indicated
--- NOTE | 2023-04-24 19:00 | P.CDIM_ITS ---
PROVIDER RESPONSE TEXT: To clarify, the appropriate diagnosis supported by the clinical indicators: Acute blood loss anemia QUERY TEXT: PHYSICIAN'S DOCUMENTATION REQUEST Date of Query: 04/24/2023 09:05 AM EDT Patient Name: Maryam Ramos Admit Date: 04/20/2023 Dear Baltazar Guzman, A review of the medical record indicates additional documentation may be needed. Please review below and update the documentation accordingly. Clinical Indicators: Acute on chronic anemia GI bleed with positive occult stool 4 units PRBC transfused H/H 7.9 & 24.0 Based on the above, could you clarify which of the following is the most likely type of anemia you ar e evaluating, treating, and/or monitoring? Acute blood loss anemia Other please specify Other (explain)Clinically unable to determine (explain)Thank you, Marnie Freire, CCS, CDIS Use of terms such as suspected, likely, concern for, or probable (associated with a specific diagnosi s that is being evaluated, monitored, or treated as if it exists) are acceptable and can be coded in the inpatient se tting, when documented at the time of discharge. Please use your independent medical judgment in providing your response. THIS QUERY IS PART OF THE PERMANENT MEDICAL RECORD
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
[2023-04-24] MEDS: traZODone HCL 100 MG TABLET PO (19:58)
[2023-04-24 20:02] LABS: Hematocrit 29.7 % (37.0-47.0); Mean Corpuscular HGB Conc 33.7 g/dl (31.0-35.0); Mean Corpuscular Hemoglobin 31.4 pg (27.0-33.0); Mean Corpuscular Volume 93.4 fL (80.0-98.0); Mean Platelet Volume 10.3 fL (9.4-12.3); NRBC Pct Auto 0.3 /100WBC (0.0-0.2); Platelet Count 104 X10*3/uL (160-400); Red Blood Count 3.18 X10*6/uL (4.20-5.50); Red Cell Distribution Width 16.7 % (11.0-16.0); White Blood Count 7.1 X10*3/uL (4.8-10.8)
--- NOTE | 2023-04-24 20:43 | P.PNNP_ITS ---
Subjective Subjective Date of Service: 04/24/23 Interval history: Seen and exained, event snoted Physical Exam 2 Vital Signs: Vital Signs: Last Vital Signs Temp 99.3 F 04/24/23 19:27 Pulse 78 04/24/23 20:32 Resp 20 04/24/23 19:27 BP 145/74 H 04/24/23 20:32 Pulse Ox 98 04/24/23 19:27 O2 Del Method Room Air 04/24/23 19:27 BMI result Body Mass Index 22.6 Const: General: cooperative, comfortable and no acute distress Resp: Effort & Inspection: normal respiratory effort Auscultation: clear to auscultation bilaterally Cardio: Jugular venous distension: no JVD Rate: regular rate GI: Inspection: Yes normal to inspection Auscultation: normal bowel sounds Objective Data Labs 04/24/23 19:23 04/24/23 06:13 Labs: Laboratory Results - last 24 hr 04/20/23 04/24/23 04/24/23 20:27 06:13 08:24 WBC 5.4 RBC 2.80 L Hgb 8.6 L Hct 26.7 L MCV 95.4 MCH 30.7 MCHC 32.2 RDW 16.6 H Plt Count 97 L MPV 10.3 Absolute Nucleated RBC 0.000 Nucleated RBC % (auto) 0.0 Sodium 133 L Potassium 4.6 Chloride 102 Carbon Dioxide 21 L Anion Gap 15 BUN 39 H Creatinine 5.01 H* Estim Creat Clear Calc 7.3 Estimated GFR 8 Random Glucose 108 Calcium 7.9 L Blood Type B Positive Antibody Screen POSITIVE Antibody Identification Anti-C Crossmatch (AHG) See Detail 04/24/23 04/24/23 08:24 19:23 WBC 7.1 RBC 3.18 L Hgb 10.0 L Hct 29.7 L MCV 93.4 MCH 31.4 MCHC 33.7 RDW 16.7 H Plt Count 104 L MPV 10.3 Absolute Nucleated RBC 0.020 H Nucleated RBC % (auto) 0.3 H Sodium Potassium Chloride Carbon Dioxide Anion Gap BUN Creatinine Estim Creat Clear Calc Estimated GFR Random Glucose Calcium Blood Type Antibody Screen Antibody Identification Anti-E Crossmatch (AHG) See Detail Procedures Date of Service Date of Service: 04/24/23 Assessment & Plan Assessment and plan (1) Closed left femoral fracture: Status: Acute (2) Acute hyperkalemia: Status: Acute (3) Lung mass: Status: Acute (4) ESRD (end stage renal disease): Status: Acute (5) Hemodialysis patient: Status: Acute Plan Ms. Maryam Ramos is a 73-year-old female with a PMH significant for?paroxysmal AFib on Eliquis, ESRD on hemodialysis (M/W/F), carotid stenosis, CAD s/p CABG, interstitial lung disease, HTN, HFrEF, and recently diagnosed adenocarcinoma of left lower lung (05/11/2023) who presents to the ED with?left knee and hip pain after a fall at home. Pt will be admitted to the hospital for treatment and further evaluation of broken left femur. She presented hyperkalemic as she missed HD on day of presentation. HD tomorrow Tues and then get her back on usu mwf schedule; EPO and Fe as per ordered Avoid BP drops --will limit fluid removal during HD Tues Time Spent With Patient Time: Total time managing care of this patient today ____ minutes. Progress Note: Quality Stroke Does the patient have a stroke diagnosis?: No
[2023-04-25 03:05] VITALS: BP 159/73; PULSE 76; RESP 20; TEMP 36.3; O2SAT 96
[2023-04-25] MEDS: Pantoprazole Sodium 80 MG in 0.9 % Sodium Chloride 80 ML 10 MG IV ×2 (04:19→14:59)
[2023-04-25] MEDS: Nitroglycerin 0.4 MG PATCH.TD24 TRANSDERMA (04:20)
[2023-04-25 06:42] LABS: Hematocrit 29.3 % (37.0-47.0); Hemoglobin 9.7 g/dl (12.0-16.0); Mean Corpuscular HGB Conc 33.1 g/dl (31.0-35.0); Mean Corpuscular Hemoglobin 30.9 pg (27.0-33.0); Mean Corpuscular Volume 93.3 fL (80.0-98.0); Mean Platelet Volume 10.1 fL (9.4-12.3); Platelet Count 107 X10*3/uL (160-400); Red Blood Count 3.14 X10*6/uL (4.20-5.50); Red Cell Distribution Width 16.9 % (11.0-16.0)
[2023-04-25 06:58] LABS: Anion Gap 16 (12-20); Blood Urea Nitrogen 45 mg/dL (9-16); Calcium 7.8 mg/dL (8.4-10.2); Carbon Dioxide 18 mmol/L (22-29); Chloride 103 mmol/L (96-108); Creatinine Clr Calc Pharmacy 6.2; Estimated Glomerular Filt Rate 7; Glucose Random 87 mg/dL (60-115); Sodium 132 mmol/L (135-145)
[2023-04-25 07:06] VITALS: BP 138/82; PULSE 76; RESP 18; TEMP 36.4; O2SAT 98
[2023-04-25] MEDS: Gabapentin 300 MG CAPSULE PO (08:22)
[2023-04-25] MEDS: Atorvastatin Calcium 80 MG TABLET PO (08:22)
[2023-04-25] MEDS: FLUoxetine HCl 20 MG CAPSULE PO (08:23)
[2023-04-25] MEDS: HYDROmorphone HCl 0.5 MG/0.5 ML SYRINGE 0.25 MG IVPUSH ×2 (08:23→19:43)
[2023-04-25] MEDS: Apixaban 2.5 MG TABLET PO ×2 (08:23→21:19)
[2023-04-25] MEDS: 0.9 % Sodium Chloride Flush 3 ML SYRINGE IVFLUSH ×3 (08:24→21:19)
[2023-04-25] MEDS: Lidocaine 4 % Patch ADH..PATCH 1 PATCH TRANSDERMA (08:24)
[2023-04-25] MEDS: ondansetron HCL 4 MG/2 ML VIAL IVPUSH (09:13)
[2023-04-25] MEDS: oxyCODONE HCl Immed Release 5 MG TABLET PO (11:02)
--- NOTE | 2023-04-25 12:10 | HO.PM.IMPN ---
Subjective Subjective Date of Service: 04/25/23 Interval History: feeling better Physical Exam Vital Signs: Vital Signs: Last Vital Signs Temp 97.5 F 04/25/23 07:06 Pulse 76 04/25/23 07:06 Resp 18 04/25/23 07:06 BP 138/82 04/25/23 07:06 Pulse Ox 98 04/25/23 07:06 O2 Del Method Room Air 04/25/23 07:06 BMI result Body Mass Index 22.6 Const: General: cooperative, comfortable and no acute distress Resp: Effort & Inspection: normal respiratory effort Auscultation: clear to auscultation bilaterally Cardio: Jugular venous distension: no JVD Rate: regular rate GI: Inspection: Yes normal to inspection Auscultation: normal bowel sounds Objective Data Active Medications Acetaminophen (Acetaminophen 325 Mg Tablet) 650 mg PO Q6H PRN PRN Reason: Pain, Mild (Pain Scale 1-3) Last Admin: 04/23/23 02:19 Dose: 650 mg Documented By: DELISA Apixaban (Apixaban 2.5 Mg Tablet) 2.5 mg PO BID [facility] Last Admin: 04/25/23 08:23 Dose: 2.5 mg Documented By: SCOUT Atorvastatin Calcium (Atorvastatin Calcium 80 Mg Tablet) 80 mg PO DAILY [facility] Last Admin: 04/25/23 08:22 Dose: 80 mg Documented By: SCOUT Carvedilol (Carvedilol 12.5 Mg Tablet) 12.5 mg PO BID [facility]; Protocol Last Admin: 04/23/23 08:13 Dose: Not Given Documented By: PENNIE Non-Admin Reason: NPO Docusate Sodium (Docusate Sodium 100 Mg Capsule) 100 mg PO DAILY PRN PRN Reason: Constipation Fentanyl (Fentanyl Citrate/Pf 100 Mcg/2 Ml Vial) 25 mcg IVPUSH Q5M PRN; Protocol PRN Reason: Pain, Moderate(Pain Scale 4-6) Fluoxetine HCl (Fluoxetine Hcl 20 Mg Capsule) 20 mg PO DAILY [facility] Last Admin: 04/25/23 08:23 Dose: 20 mg Documented By: SCOUT Gabapentin (Gabapentin 300 Mg Capsule) 300 mg PO DAILY [facility] Last Admin: 04/25/23 08:22 Dose: 300 mg Documented By: SCOUT Hydromorphone HCl (Hydromorphone Hcl 0.5 Mg/0.5 Ml Syringe) 0.25 mg IVPUSH Q4H PRN; Protocol PRN Reason: Pain, Severe (Pain Scale 7-10) Last Admin: 04/25/23 08:23 Dose: 0.25 mg Documented By: SCOUT Pantoprazole Sodium 80 mg/ (Sodium Chloride) 100 mls @ 10 mls/hr IV .Q10H [facility] Last Admin: 04/25/23 04:19 Dose: 8 mg/hr, 10 mls/hr Documented By: CHITO Lidocaine (Lidocaine 4 % Patch Adh..Patch) 1 patch TRANSDERMA DAILY [facility]; Protocol Last Admin: 04/25/23 08:24 Dose: 1 patch Documented By: SCOUT Nitroglycerin (Nitroglycerin 0.4 Mg Patch.Td24) 0.4 mg TRANSDERMA DAILY@0400 [facility]; Protocol Last Admin: 04/25/23 04:20 Dose: 0.4 mg Documented By: CHITO Ondansetron HCl (Ondansetron Hcl 4 Mg/2 Ml Vial) 4 mg IVPUSH Q8H PRN PRN Reason: Nausea and Vomiting Last Admin: 04/25/23 09:13 Dose: 4 mg Documented By: LAURA Oxycodone HCl (Oxycodone Hcl Immed Release 5 Mg Tablet) 5 mg PO Q4H PRN PRN Reason: Pain, Severe (Pain Scale 7-10) Last Admin: 04/25/23 11:02 Dose: 5 mg Documented By: SCOUT Sevelamer Carbonate (Sevelamer Carbonate Tablet 800 Mg Tablet) 800 mg PO TIDWM [facility] Last Admin: 04/25/23 08:22 Dose: Not Given Documented By: SCOUT Non-Admin Reason: Patient Refused Sodium Chloride (0.9 % Sodium Chloride Flush 3 Ml Syringe) 3 ml IVFLUSH QSHIFT [facility] Last Admin: 04/25/23 09:13 Dose: 3 ml Documented By: LAURA Trazodone HCl (Trazodone Hcl 100 Mg Tablet) 100 mg PO BEDTIME [facility] Last Admin: 04/24/23 19:58 Dose: 100 mg Documented By: HANNAH Labs 04/25/23 06:28 04/25/23 06:28 Labs: Laboratory Results - last 24 hr 04/24/23 04/24/23 04/25/23 08:24 19:23 06:28 MCV 93.4 93.3 MCH 31.4 30.9 MCHC 33.7 33.1 RDW 16.7 H 16.9 H Plt Count 104 L 107 L MPV 10.3 10.1 Absolute Nucleated RBC 0.020 H 0.000 Nucleated RBC % (auto) 0.3 H 0.0 Anion Gap 16 Estim Creat Clear Calc 6.2 Estimated GFR 7 Random Glucose 87 Calcium 7.8 L Crossmatch (AHG) See Detail Assessment and Plan (1) Hypotension: Status: Acute (2) Acute hyponatremia: Status: Acute (3) Acute hyperkalemia: Status: Acute (4) Closed left femoral fracture: Status: Acute Plan 73F PMH paroxysmal AFib on Eliquis, ESRD on hemodialysis (M/W/F), carotid stenosis, CAD s/p CABG, interstitial lung disease, HTN, HFrEF, and recently diagnosed adenocarcinoma of left lower lung (05/11/2023) who presented to the ED with?left knee and hip pain after a fall at home. Pfound to have broken left femur mechanical fall complicated by left femur fracture s/p left femur IMN 04/22/23 PT acute Hypotension resolved, secondary to dehydration post HD, anesthesia, blood loss Improved with IV boluses and PRBCs transfusion Acute on chronic anemia 2/2 GIB likely acute blood loss and inflammatory s/p 5 units transfusion now stable GI input appreciated, outpatient colonoscopy when she is in better shape Acute hyponatremia Post dialysis , improved Hyperkalemia resolved ESRD on hemodialysis M/W/F HD Paroxysmal AFib coreg on hold for low bp continue low dose eliquis HFrEF Not in acute exacerbation Hold home Lasix d/t soft BP Lung mass Pt with recently diagnosed adenocarcinoma of left lung Follow up outpatient with oncology Full Code DVT Prophylaxis: eliquis reason for continued hospitalization:awaiting placement Time Spent With Patient Time: Total time managing care of this patient today ____ minutes. Quality Stroke Does the patient have a stroke diagnosis?: No VTE Prior VTE?: No VTE Risk Level:: Medical - moderate - high VTE Device Contraindication: N/A - Device Ordered VTE Drug Contraindication: Treatment Not Indicated
--- NOTE | 2023-04-25 12:18 | PM.DS ---
DS: Providers Provider Date of Service: 04/26/23 Date of admission: 04/20/23 12:00 Primary care physician: Ayah Villalta MD Consults: 04/20/23 09:36 Consult to Nephrology Stat Consulting Provider: Simone Lopez Reason for consultation: DIALYSIS Has provider been notified: Yes 04/20/23 12:17 Consult to Orthopedics Routine Consulting Provider: [facility] [place] [facility] [place] [facility] Reason for consultation: Displaced comminuted overlapping distal femoral periprosthetic fracture 04/23/23 11:55 Consult to Gastroenterology Routine Consulting Provider: Prasanna Londono Reason for consultation: GIB, blood loss anemia DS: Diagnosis Discharge Diagnosis (1) Hypotension: Status: Acute (2) Acute hyponatremia: Status: Acute (3) Acute hyperkalemia: Status: Acute (4) Closed left femoral fracture: Status: Acute DS: Summary Hospital Course Hospital Course: from initial hpi: 73-year-old female with a PMH significant for paroxysmal AFib on Eliquis, ESRD on hemodialysis (M/W/F), carotid stenosis, CAD s/p CABG, interstitial lung disease, HTN, HFrEF, and recently diagnosed adenocarcinoma of left lower lung (05/11/2023) who presents to the ED with left knee and hip pain after a fall at home. Patient was sleeping last night when her called to her to help him find his phone which had dropped under his bed. Patient and sleep in separate rooms. Patient states she got up but her ?knees felt wobbly? and she initially fell back onto the bed. After resting for a short period of time she stood up again and walked to the hallway where her knees again ?felt wobbly? and patient fell in the hallway, hitting the back of her head on the floor. Denies lightheadedness, dizziness, loss of consciousness. Patient immediately felt sharp pain in her left leg and hip and was unable to stand or move her lower leg. Patient states she has been feeling more tired lately than normal and has had persistent congestion, cough, and productive cough. Of note, pt was admitted to the hospital on 03/10/2023 for fatigue and missed dialysis and found to have a left lower lobe lung mass that was eventually biopsied and found out to be adenocarcinoma In the ED patient was afebrile with occasionally soft BP as low as 98/53. Labs were significant for leukocytosis at 10.9, H&H 9.6/29.1, MCV 100.0, potassium 6.4, BUN 70, creatinine 7.94, calcium 8.1. CXR showed mild diffuse increased markings similar to previous with no evidence of active cardiopulmonary disease. X-ray of hip and pelvis showed medial rotation of left hip limiting evaluation with no acute osseous abnormality seen. Left knee x-ray found displaced comminuted overlapping distal femoral periprosthetic fracture. CT of head found no acute intracranial pathology. EKG demonstrated sinus rhythm with first-degree AV block with no evidence of ST elevations or depressions or tall peeked T-waves. Pt was treated with oxycodone, hydromorphone, albuterol, Lokelma, and calcium gluconate. Pt will be admitted to the hospital for treatment and further evaluation of broken left femur with likely surgical procedure and missed dialysis with emergent dialysis. hospital course: Patient was admitted for mechanical fall complicated by left femur fracture. Patient underwent left femur IM med 04/22/2023. Course was complicated by acute hypotension which was multifactorial due to dehydration post hemodialysis, anesthesia, blood loss. She improved with IV boluses and blood transfusions. Course also complicated by acute on chronic anemia likely due to acute blood loss and inflammatory. She received 5 units total. Hemoglobin now stable. She was started on PPI. Restarted on low-dose Eliquis. She will follow up with GI as outpatient. Noted to have acute hyponatremia which improved. Hyperkalemia resolved. Patient has end-stage renal disease and is on hemodialysis. The paroxysmal atrial fibrillation her carvedilol is on hold for low BP. She is on low-dose Eliquis. Her carvedilol can be restarted as tolerated. For chronic systolic and diastolic CHF she is not in volume overload. Many of her neuro hormonal meds have been held due to hypotension, a should be restarted as tolerated. For recently diagnosed adenocarcinoma the left lung she will follow up outpatient with Oncology. Patient is feeling better will be discharged to long term facility. Time Spent with Patient Time attestation: Total time managing care of this patient today ____ minutes. Discharge coordination time: Greater than 30 minutes Quality: Safe Use of Opioids Does Pt have an Active Cancer Diagnosis on the Problem List?: Yes Opioid Measure Date for CMS Report: 03/27/23 Opioid Measure Time for CMS Report: 10:23 Quality: Stroke Does the patient have a stroke diagnosis?: No Physical Exam Vital Signs: Vital Signs: Last Vital Signs Temp 97.5 F 04/25/23 07:06 Pulse 76 04/25/23 07:06 Resp 18 04/25/23 07:06 BP 138/82 04/25/23 07:06 Pulse Ox 98 04/25/23 07:06 O2 Del Method Room Air 04/25/23 07:06 BMI result Body Mass Index 22.6 General: AO X 3, no acute distress Resp: CTA bilateral, no accessory muscles used CVS: S1,S2,RRR GI: soft, non tender, non distended Neuro: motor grossly intact, alert Psych: appropriate affect, appropriate insight DS: Data Data Completed and Pending Completed studies during hospitalization [Text1]: Procedures Performance of Urinary Filtration, Intermittent, Less than 6 Hours Per Day (10/31/22) Transfusion of Nonautologous Red Blood Cells into Peripheral Vein, Percutaneous Approach (10/31/22) Labs on day of discharge: Laboratory Results - last 24 hr 04/24/23 04/24/23 04/25/23 08:24 19:23 06:28 WBC 7.1 6.0 RBC 3.18 L 3.14 L Hgb 10.0 L 9.7 L Hct 29.7 L 29.3 L MCV 93.4 93.3 MCH 31.4 30.9 MCHC 33.7 33.1 RDW 16.7 H 16.9 H Plt Count 104 L 107 L MPV 10.3 10.1 Absolute Nucleated RBC 0.020 H 0.000 Nucleated RBC % (auto) 0.3 H 0.0 Sodium 132 L Potassium 5.0 Chloride 103 Carbon Dioxide 18 L Anion Gap 16 BUN 45 H Creatinine 5.88 H* Estim Creat Clear Calc 6.2 Estimated GFR 7 Random Glucose 87 Calcium 7.8 L Crossmatch (AHG) See Detail Discharge Plan Discharge Anticipated Discharge Date/Time: 04/25/23 12:15 Patient Disposition: Xfer SNF Discharge Diagnosis: hip fracture Referrals: Barbara Atkinson PA-C [Physician Mangle Catcher] - 05/11/23 9:45 am (05/11 at 9:45) Nimisha Urbina MD [Physician] - 1 Week Ayah Villalta MD [Primary Care Provider] - 1 Week Discharge Medications: New oxycodone 5 mg Tablet 5 mg PO Q4H PRN (Reason: Pain, Severe (Pain Scale 7-10)) Qty: 10 0RF Rx Instructions: Partial Fill upon patient request. omeprazole 40 mg capsule,delayed release(DR/EC) 40 mg PO DAILY Qty: 30 0RF Continued furosemide [Lasix] 40 mg tablet 40 mg PO TUTHSA rosuvastatin 20 mg tablet 20 mg PO DAILY Qty: 30 5RF Eliquis 2.5 mg tablet 2.5 mg PO BID Qty: 60 5RF acetaminophen 500 mg Tablet 500 - 1,000 mg PO BID PRN (Reason: Pain) trazodone 100 mg tablet 1 tab PO BEDTIME gabapentin 300 mg capsule 300 mg PO DAILY aspirin 81 mg Tablet,Chewable 81 mg PO DAILY fluoxetine 20 mg capsule 20 mg PO DAILY sevelamer carbonate 800 mg tablet 800 mg PO TIDWM nitroglycerin 0.4 mg/hr patch 24 hour 0.4 mg transdermal DAILY@0400 Protocol: Hold for SBP< HOLD for SBP < : 90 Rx Instructions: PUTS ON AT 0400 AND TAKES OFF AT 1600 Discontinued carvedilol 12.5 mg tablet 12.5 mg PO BID Qty: 120 0RF clonidine 0.2 mg/24 hr patch weekly 1 patch topical SA lisinopril 20 mg tablet 20 mg PO BID amlodipine 10 mg tablet 10 mg PO DAILY@1400 Discharge Orders: Discharge Order (Routine); Ordered 04/26/23 Ordered By: Justin Hernandez Diet: Advance to usual diet Activity on Discharge: As tolerated Stand Alone Forms: Patient Portal Discharge page Care Plan Goals: recovery Health Concerns: gi bleed, hip fracture Plan of Treatment: follow up gi, bp meds on hold for now, but restart as tolerated Assessment: see above
--- NOTE | 2023-04-25 13:06 | MHC.CM.PN ---
EMR REVIEWED, CM MET W/PT TO DISCUSS DISPO PT WILL NEED FACILITY THAT CAN ACCOMMODATE [facility] IS UNABLE TO OFFER PT A BED, PT AGREEABLE TO [facility] OR [facility], PT REPORTS SHE DOES NOT WANT TO RETURN TO [facility] SHE HAS BEEN THERE BEFORE AND DID NOT LIKE THE FOOD. CM MET W/PT A SECOND TIME PER [facility] REQUEST, PT REPORTS TO CM SHE DOES NOT WANT HER DTR TO BE HER HCP AND DOES NOT WANT INFORMATION GIVEN TO HER, PT REQUESTING TO COMPLETE A NEW HCP NAMING HER SON/PRIMARY CONTACT RALPH VARGHESE WILL COMPLETE W/PT PRIOR TO D/C. PT REPORTING SHE IS IS TOO TIRED FOR D/C AND REQUESTING TO STAY ANOTHER NIGHT, HOSPITALIST TO BE NOTIFIED. CM HAS RECEIVED NO RESPONSE FROM [facility], PT AGREEABLE TO [facility] HOWEVER [facility] REQUESTING ANOTHER PT NOTE, P.T. AWARE.
[2023-04-25 15:18] VITALS: BP 150/80; PULSE 99; RESP 20; TEMP 37.2; O2SAT 94
[2023-04-25] MEDS: Acetaminophen 325 MG TABLET 650 MG PO (15:22)
[2023-04-25 16:34] VITALS: TEMP 36.8
[2023-04-25 18:43] VITALS: BP 152/75; PULSE 90; RESP 20; TEMP 37.1; O2SAT 94
--- NOTE | 2023-04-25 19:47 | PM.PNORT ---
Subjective Subjective Date of Service: 04/25/23 Interval history: POD3 s/p Left femur IMN. No overnight events. BP is currently stable. Patient reports no pain. She is eating breakfast in bed comfortably. No additional complaints. Physical Exam Vital Signs: Vital Signs: Last Vital Signs Temp 98.8 F 04/25/23 18:43 Pulse 90 04/25/23 18:43 Resp 20 04/25/23 18:43 BP 152/75 H 04/25/23 18:43 Pulse Ox 94 04/25/23 18:43 O2 Del Method Room Air 04/25/23 18:43 BMI result Body Mass Index 22.6 Const: General: cooperative, healthy appearing and no acute distress Resp: Effort & Inspection: normal respiratory effort and able to speak in complete sentences Cardio: Rate: regular rate Peripheral pulses: Peripheral pulses 2+ throughout GI: Palpation (GI): Soft to palpation Skin: General skin exam: no rashes or lesions noted Extrem: Other: Left distal femur bandages are c/d/i. Sensation intact. Pedal pulse intact. Able to plantar/dorsi flex. Procedures Date of Service Date of Service: 04/25/23 Progress Note: A&P Assessment and plan (1) Closed left femoral fracture: Status: Acute Assessment and Plan: pain control as needed PT/OT for left femur IMN-WBAT Resumed eliquis 48 hrs post op dispo -pending pt and medical management -rehab placement Time Spent With Patient Time: Total time managing care of this patient today ____ minutes. Quality Stroke Does the patient have a stroke diagnosis?: No VTE Prior VTE?: No VTE Risk Level:: Medical - moderate - high VTE Device Contraindication: N/A - Device Ordered VTE Drug Contraindication: Treatment Not Indicated
--- NOTE | 2023-04-25 20:06 | P.PNNP_ITS ---
Subjective Subjective Date of Service: 04/25/23 Interval history: Seen and examined, events noted Physical Exam 2 Vital Signs: Vital Signs: Last Vital Signs Temp 98.8 F 04/25/23 18:43 Pulse 90 04/25/23 18:43 Resp 20 04/25/23 18:43 BP 152/75 H 04/25/23 18:43 Pulse Ox 94 04/25/23 18:43 O2 Del Method Room Air 04/25/23 18:43 BMI result Body Mass Index 22.6 Const: General: cooperative, comfortable and no acute distress Resp: Effort & Inspection: normal respiratory effort Auscultation: clear to auscultation bilaterally Cardio: Jugular venous distension: no JVD Rate: regular rate GI: Inspection: Yes normal to inspection Auscultation: normal bowel sounds Objective Data Labs 04/25/23 06:28 04/25/23 06:28 Labs: Laboratory Results - last 24 hr 04/25/23 06:28 WBC 6.0 RBC 3.14 L Hgb 9.7 L Hct 29.3 L MCV 93.3 MCH 30.9 MCHC 33.1 RDW 16.9 H Plt Count 107 L MPV 10.1 Absolute Nucleated RBC 0.000 Nucleated RBC % (auto) 0.0 Sodium 132 L Potassium 5.0 Chloride 103 Carbon Dioxide 18 L Anion Gap 16 BUN 45 H Creatinine 5.88 H* Estim Creat Clear Calc 6.2 Estimated GFR 7 Random Glucose 87 Calcium 7.8 L Procedures Date of Service Date of Service: 04/25/23 Assessment & Plan Assessment and plan (1) Closed left femoral fracture: Status: Acute (2) Acute hyperkalemia: Status: Acute (3) Lung mass: Status: Acute (4) ESRD (end stage renal disease): Status: Acute (5) Hemodialysis patient: Status: Acute Plan Ms. Maryam Ramos is a 73-year-old female with a PMH significant for?paroxysmal AFib on Eliquis, ESRD on hemodialysis (M/W/F), carotid stenosis, CAD s/p CABG, interstitial lung disease, HTN, HFrEF, and recently diagnosed adenocarcinoma of left lower lung (05/11/2023) who presents to the ED with?left knee and hip pain after a fall at home. Pt will be admitted to the hospital for treatment and further evaluation of broken left femur. She presented hyperkalemic as she missed HD on day of presentation. Cont HD TTS EPO and Fe as per ordered Avoid BP drops --will limit fluid removal during HD d/c planning Time Spent With Patient Time: Total time managing care of this patient today ____ minutes. Progress Note: Quality Stroke Does the patient have a stroke diagnosis?: No
[2023-04-25] MEDS: traZODone HCL 100 MG TABLET PO (21:19)
[2023-04-25 23:12] VITALS: BP 152/74; PULSE 83; RESP 18; TEMP 37.6; O2SAT 95
[2023-04-26] MEDS: HYDROmorphone HCl 0.5 MG/0.5 ML SYRINGE 0.25 MG IVPUSH (01:45)
[2023-04-26 03:51] VITALS: BP 139/70; PULSE 85; RESP 18; TEMP 36.8; O2SAT 93
[2023-04-26] MEDS: Nitroglycerin 0.4 MG PATCH.TD24 TRANSDERMA (04:20)
[2023-04-26 07:35] VITALS: BP 145/75; PULSE 85; RESP 18; TEMP 36.8; O2SAT 94
[2023-04-26] MEDS: FLUoxetine HCl 20 MG CAPSULE PO (08:45)
[2023-04-26] MEDS: Apixaban 2.5 MG TABLET PO (08:45)
[2023-04-26] MEDS: Gabapentin 300 MG CAPSULE PO (08:46)
[2023-04-26] MEDS: Atorvastatin Calcium 80 MG TABLET PO (08:46)
[2023-04-26] MEDS: Lidocaine 4 % Patch ADH..PATCH 1 PATCH TRANSDERMA (08:46)
[2023-04-26] MEDS: Acetaminophen 325 MG TABLET 650 MG PO (08:50)
[2023-04-26] MEDS: 0.9 % Sodium Chloride Flush 3 ML SYRINGE IVFLUSH (08:54)
--- NOTE | 2023-04-26 10:15 | MHC.CM.PN ---
PT MEDICALLY CLEARED FOR D/C TO ACUTE REHAB AT [facility], PT'S SON/NEW HCP ABIMAEL HEARN (COMPLETED TODAY 04/26) NOTIFIED AT 10:10AM, IMM DELIVERED TO BEDSIDE 04/26 AND [facility] FOR BLS TRANSPORT AT 2PM.
[2023-04-26 11:17] VITALS: BP 151/82; PULSE 75; RESP 18; TEMP 37.1; O2SAT 95
--- NOTE | 2023-04-26 11:47 | PC.NURSE ---
First dressing change to L Leg femur repair done today at 11:48 by this RN. Orthopedic surgeon gave the okay to change. applied xeroform applied to the samantha followed by gauze and covered with tegaderm. Dressing dated, will give report on how to change to rehab facility.
--- NOTE | 2023-05-05 11:22 | W.PM.OPN ---
Operative Note Operative Note Date of Service: 04/22/23 Narrative: Date of Service: 04/22/23 Pre-op diagnosis: left periprosthetic distal femur fracture Post-op diagnosis: same Procedure: Rertreograde IMN left femur Implants: Strykler alpha-2 200 x 10 retrograde IMN iwth 1 proximal and 3 distal interlocking screws Surgeon: Ryan Tripp MD Anesthesia: GETA and local Was an Manufacturing Engineering Technologist used for this Procedure?: Yes Manufacturing Engineering Technologist: Barbara Atkinson Estimated blood loss (mL): 150 a interlocking screws IV fluids (mL): 500 Pathology: none sent Condition: stable Disposition: PACU Procedure in detail: Patient was brought to the operating room and prepped and draped in standard sterile fashion. Time-out was called to identify proper site procedure proper surgeon and IV antibiotics per weight were administered. She was positioned on the fracture table. I then made an incision over the prior TKA incision. A tendon splitting approach was used and the hematoma was evacuated. A k-wire was inserted retrograde through the notch into the proximal shaft. Traction and reduction were applied by my engineering assistant and a 200 mm nail was selected. I over-reamed with 15 mm Reamer placed my ball-tip guidewire down distally in the femur. I then placed the [id number] retrograde nail. I then placed 3 distal interlocking screws through the nail using a knee guide. The reduction was acceptable and the screws were measured and placed and biplanar fluoroscopy confirmed adequate screw position and length. I then placed a proximal interlocking screw through the most proximal hole. I then removed all instrumentation. Final biplanar radiographs were taken. I was satisfied with the position of the hardware and the fracture reduction. I copiously irrigated closed with absorbable sutures samantha and injected 30 mL of into the area of the incisions. Traction was let down patient was placed in sterile dressing awakened from anesthesia brought to recovery room stable condition there were no known complications.
== END 2023-04-26 14:28 | disposition skilled nursing facility (03) | DRG 480 ==
LOC: HO.ED 04-20 08:23 → HO.EDOVER 04-20 12:28 → HO.IMC 04-20 16:30
PROVIDERS: Emergency Medicine; Internal Medicine; Orthopaedic Surgery; Physician Assistant Medical; Student in an Organized Health Care Education/Training Program; Admitting Provider Student in an Organized Health Care Education/Training Program; Emergency Provider Emergency Medicine; PCP Family Medicine; Visit Provider Internal Medicine
PROC: 0QSC36Z Reposition Left Lower Femur with Intramedullary Internal Fixation Device, Percutaneous Approach (ICD-10-PCS; principal; 2023-04-22 10:40)
DX: S72.402A Unspecified fracture of lower end of left femur, initial encounter for closed fracture (principal); K57.91 Diverticulosis of intestine, part unspecified, without perforation or abscess with bleeding; N18.6 End stage renal disease; D62 Acute posthemorrhagic anemia; M97.12XA Periprosthetic fracture around internal prosthetic left knee joint, initial encounter; I13.2 Hypertensive heart and chronic kidney disease with heart failure and with stage 5 chronic kidney disease, or end stage renal disease; I50.22 Chronic systolic (congestive) heart failure; C34.32 Malignant neoplasm of lower lobe, left bronchus or lung; E87.1 Hypo-osmolality and hyponatremia; W19.XXXA Unspecified fall, initial encounter; F17.210 Nicotine dependence, cigarettes, uncomplicated; E87.5 Hyperkalemia; D63.1 Anemia in chronic kidney disease; I48.0 Paroxysmal atrial fibrillation; D63.0 Anemia in neoplastic disease; I95.3 Hypotension of hemodialysis; I95.81 Postprocedural hypotension; I35.0 Nonrheumatic aortic (valve) stenosis; I25.10 Atherosclerotic heart disease of native coronary artery without angina pectoris; Z71.6 Tobacco abuse counseling; I25.2 Old myocardial infarction; E86.0 Dehydration; Z99.2 Dependence on renal dialysis; Z86.718 Personal history of other venous thrombosis and embolism; Z91.158 Patient's noncompliance with renal dialysis for other reason; Z95.1 Presence of aortocoronary bypass graft; Z79.01 Long term (current) use of anticoagulants; Z79.82 Long term (current) use of aspirin; Z79.899 Other long term (current) drug therapy
CPT/HCPCS: 36415; 70450; 71045; 73502; 73560; 80048; 80076; 82272; 83605; 83690; 83735; 85014; 85018; 85025; 85027; 86850; 86870; 86880; 86900; 86901; 86902; 86920; 86922; 87493; 87507; 90999; 93005; 94640; 97162; 97166; 97530; 99285; 99498; C1713; J0613; J0885; J1170; J1756; J1885; J2371; J2405; J2795; J3010; P9016

== ENCOUNTER → 2023-04-20 12:00 | Outpatient (BNV) | payer MEDICARE, MEDICAID, SELFPAY | PROVIDERS: Admitting Provider Student in an Organized Health Care Education/Training Program; Emergency Provider Emergency Medicine; Visit Provider Physician Assistant Medical | DX: I95.9 Hypotension, unspecified (principal); N18.6 End stage renal disease; D63.1 Anemia in chronic kidney disease; Z98.890 Other specified postprocedural states | CPT/HCPCS: 99291; 99292 ==

== ENCOUNTER → 2023-04-20 12:00 | Outpatient (BNV) | payer MEDICARE, MEDICAID, SELFPAY | PROVIDERS: Admitting Provider Student in an Organized Health Care Education/Training Program; Emergency Provider Emergency Medicine; Visit Provider Orthopaedic Surgery | DX: S72.92XA Unspecified fracture of left femur, initial encounter for closed fracture (principal) | CPT/HCPCS: 27506; 99024; 99232 ==

== ENCOUNTER → 2023-04-20 12:00 | Outpatient (BNV) | payer MEDICARE, MEDICAID, SELFPAY | PROVIDERS: Admitting Provider Student in an Organized Health Care Education/Training Program; Emergency Provider Emergency Medicine; Visit Provider Student in an Organized Health Care Education/Training Program | DX: I95.9 Hypotension, unspecified (principal); E87.1 Hypo-osmolality and hyponatremia; E87.5 Hyperkalemia; S72.92XA Unspecified fracture of left femur, initial encounter for closed fracture | CPT/HCPCS: 99223; 99233; 99239; 99499 ==

== ENCOUNTER 2023-05-03 19:17 | Inpatient (IN) | payer MEDICARE, MEDICAID, SELFPAY ==
--- NOTE | ~2023-05-03 | US_ITS ---
EXAMINATION: US VENOUS ULTRASOUND WITH DOPPLER LOWER EXTREMITY, LEFT CLINICAL INFORMATION: Postoperative pain. COMPARISON: 12/13/2020. TECHNIQUE: Ultrasound of the deep veins is performed from the hip to the calf with compression sonography and color and pulse Doppler assessment. Spectral analysis with color-flow imaging is performed. FINDINGS: There is normal venous compression and respiratory variation and augmented flow. The visualized common femoral vein, superficial femoral vein, profunda femoral vein, popliteal vein, and the trifurcation region shows no evidence of deep venous thrombosis. The peroneal veins are not well visualized. There is no significant popliteal fossa cyst. There is a prominent 0.6 x 2.3 cm left inguinal lymph node with nonaggressive appearing reniform shape, preserved fatty cherie and normal appearing cortex, most likely reactive in nature. US/US venous duplex LE LT IMPRESSION: No DVT demonstrated in the left lower extremity with the caveat of nonvisualization of the peroneal veins. If the patient's symptoms persist, followup ultrasound in 5 days 7 days might be of value to exclude proximal propagation from a non-visualized calf vein.
--- NOTE | ~2023-05-03 | XR_ITS ---
EXAMINATION: XR CHEST CLINICAL INFORMATION: Fever. COMPARISON: Chest x-ray April 20, 2023 TECHNIQUE: Frontal portable view of the chest was obtained. 1345 hours FINDINGS: No change position of the left IJ central catheter projecting over the right atrium. Status post median sternotomy. Left atrial clip. Surgical clips over the cardiac silhouette. Heart size is normal. Vascular calcification of aorta. No acute abnormality. No pulmonary vascular congestion. No focal consolidation. No pleural effusion or pneumothorax. Chronic deformity of the left glenohumeral joint. Status post right shoulder replacement with degenerative changes. Multiple old healed left posterior rib fractures. XR/XR chest 1V IMPRESSION: No acute abnormality of chest.
--- NOTE | ~2023-05-03 | XR_ITS ---
EXAMINATION: XR KNEE, LEFT CLINICAL INFORMATION: Swelling, pain COMPARISON: 04/20/2023 TECHNIQUE: Four views of the left knee. FINDINGS: Partially visualized intramedullary nail in the right femur as well as distal femoral screws, new since 04/20/2023. Knee arthroplasty hardware is redemonstrated in anatomic alignment. In comparison to the prior examination there is improved alignment across the comminuted fracture of the distal femur, with slight residual displacement of major fracture fragments. Mild surrounding soft tissue swelling along with skin samantha. No additional new osseous findings are seen. Vascular calcification is noted. XR/XR knee LT 2V IMPRESSION: Interval placement of intramedullary nail and distal femoral screws with overall improved alignment across the comminuted fracture of the distal femur.
[2023-05-03 19:32] VITALS: BP 134/60; BP 139/77; PULSE 80; PULSE 81; RESP 16; TEMP 36.9; O2SAT 95; O2SAT 97; BMI 22.7
--- NOTE | 2023-05-03 19:48 | ED_ITS ---
HPI - General Adult General Chief complaint: General Medical Stated complaint: had surgery for L femur fx, now has fever & pain Time Seen by Provider: 05/03/23 19:48 Source: patient, EMS, RN notes reviewed and old records reviewed Mode of arrival: EMS History of Present Illness HPI narrative: 73-year-old female with a PMH significant for paroxysmal AFib on Eliquis, ESRD on hemodialysis (M/W/F), carotid stenosis, CAD s/p CABG, interstitial lung disease, HTN, HFrEF, and recently diagnosed adenocarcinoma of left lower lung (05/11/2023), recently discharged from our facility on 04/25 s/p femur fracture s/p ORIF on 04/22 presenting to the ED transfer from [facility] [place] ED for suspected surgical site infection w/ fever, leukocytosis, erythematous/swollen left knee. Patient noted to have a leukocytosis of 18,000, and x-ray w/o hardware issue, wa s given Vancomycin/Zosyn and consulted on by [facility] who recommended transfer. Patient also reports had ultrasound which is negative for DVT. Denies injury/trauma, SOB/CP, abdominal pain Onset (ago): day(s) Related Data Home Medications Medication Instructions Recorded Confirmed acetaminophen 500 mg tablet 500 - 1,000 mg PO BID PRN Pain 10/30/22 04/20/23 trazodone 100 mg tablet 1 tab PO BEDTIME 10/30/22 04/20/23 gabapentin 300 mg capsule 300 mg PO DAILY 11/09/22 04/20/23 furosemide 40 mg tablet (Lasix) 40 mg PO TUTHSA 03/07/23 04/20/23 aspirin 81 mg chewable tablet 81 mg PO DAILY 03/10/23 04/20/23 fluoxetine 20 mg capsule 20 mg PO DAILY 03/15/23 04/20/23 nitroglycerin 0.4 mg/hr 0.4 mg transdermal DAILY@0400 04/20/23 04/20/23 transdermal 24 hour patch sevelamer carbonate 800 mg tablet 800 mg PO TIDWM 04/20/23 04/20/23 Previous Rx's Medication Instructions Recorded apixaban 2.5 mg tablet (Eliquis) 2.5 mg PO BID #60 tabs 04/05/23 rosuvastatin 20 mg tablet 20 mg PO DAILY #30 tabs 04/05/23 omeprazole 40 mg capsule,delayed 40 mg PO DAILY #30 caps 04/25/23 release oxycodone 5 mg tablet 5 mg PO Q4H PRN Pain, Severe (Pain 04/25/23 Scale 7-10) #10 tabs Allergies Allergy/AdvReac Type Severity Reaction Status Date / Time atenolol [ATENOLOL] Allergy Severe DIFF Verified 04/06/23 09:59 BREATHING, heart races. doxycycline Allergy Severe Anaphylaxis Verified 04/06/23 09:59 duloxetine Allergy Severe Anaphylaxis Verified 04/06/23 09:59 amphetamine [Adderall] AdvReac Severe shortness Verified 04/06/23 09:59 of breath dextroamphetamine [Adderall] AdvReac Severe shortness Verified 04/06/23 09:59 of breath Review of Systems Review of Systems: Constitutional: + Fever, No Chills, No Fatigue, No Malaise ENT/Mouth: No Hearing loss, No Ear Pain, No Nasal Congestion,No sore throat, No Rhinorrhea, No Swallowing Difficulty Eyes: No Eye Pain, No Swelling, No Redness, No Foreign Body, No Discharge, No Vision Changes Cardiovascular: No Chest Pain, No SOB, No Edema, No Palpitations Respiratory: No Cough, No Sputum, No Dyspnea Gastrointestinal: No Nausea, No Vomiting, No Diarrhea, No Constipation, No Abdominal pain Genitourinary: No irregular bleeding, No Dysuria, No Urinary Frequency Musculoskeletal: + joint pain, No Myalgias, +Joint Swelling Skin: No Skin Lesions, No rash Neuro: No Weakness, No Numbness, No Paresthesias, No Headache Yes all other systems are reviewed and are negative Constitutional: Constitutional: Reports as per [facility] Past Medical History Attestation statement: The following information was validated with the patient. Source: old records reviewed Medical History History of DVT (deep vein thrombosis) History of non-ST elevation myocardial infarction (NSTEMI) (~12/2020) Osteopenia ESRD (end stage renal disease) Interstitial lung disease Atherosclerotic cardiovascular disease Aortic stenosis CAD (coronary artery disease) PAF (paroxysmal atrial fibrillation) (~12/2020) Anemia Asthmatic bronchitis GERD (gastroesophageal reflux disease) CKD (chronic kidney disease), stage IV History of ectopic Depression Hypertension Surgical History History of coronary artery bypass graft x 3 S/P arteriovenous (AV) fistula creation History of colonoscopy History of total replacement of right shoulder joint History of rectopexy History of left knee replacement History of carpal tunnel release of both wrists Family History Family History Father No problems noted. Mother Myocardial infarction Social History Social History Household Members: Spouse Housing: House Do you presently have visiting nurse or other home services: No Alcohol intake: current Alcohol intake frequency: does not drink Patient Tobacco Use Status: Current everyday Tobacco user Tobacco use type: Cigarette Cigarettes Per Day: 4 Second Hand Smoke Exposure: No Advance Directives Date on File: 03/10/23 service: No Current occupational status: retired Current occupation: young,right handed Physical Exam ED Vital Signs: Vital Signs - 24 hr 05/03/23 19:32 Temperature 98.4 F Pulse Rate 80 Respiratory Rate 16 Blood Pressure 139/77 Pulse Oximetry 95 Oxygen Delivery Method Room Air BMI result Body Mass Index 22.7 Const General: cooperative, healthy appearing and no acute distress Orientation/consciousness: patient oriented x3 Limitations: no limitations HENMT Head: Yes normal to inspection and Yes atraumatic Ears: hearing grossly normal bilaterally General nose exam: Normal external nose present Face and sinus: Yes normal facial exam Eyes General: appearance normal, both eyes and all related structures EOM: EOMs intact bilaterally Neck Neck: Yes normal visual inspection and Yes no meningeal signs Resp Effort & Inspection: normal respiratory effort and no respiratory distress Auscultation: clear to auscultation bilaterally Cardio Rate: regular rate Heart sounds: S1 normal heart sound present and S2 normal heart sound present GI Inspection: Yes normal to inspection Palpation (GI): Soft to palpation, nontender, no guarding and not rigid Skin Rashes: no rashes Wounds: no wounds Neuro General: patient oriented x3, tone normal and no meningeal signs Cranial nerves: Yes CN's II-XII intact bilaterally Gait exam (Neuro): Normal gait present Extrem Other: +LLE with notable swelling. Left knee swollen. Surgical sites appear clean and intact. No surrounding erythema. No fluctuance/induration or warmth. No drainage. Limited ROM secondary to pain. Neurovascular intact distally. Medical Decision Making Medical Decision Making [place] Narrative: 73-year-old female with a PMH significant for paroxysmal AFib on Eliquis, ESRD on hemodialysis (M/W/F), carotid stenosis, CAD s/p CABG, interstitial lung disease, HTN, HFrEF, and recently diagnosed adenocarcinoma of left lower lung (05/11/2023), recently discharged from our facility on 04/25 s/p femur fracture s/p ORIF on 04/22 presenting to the ED transfer from [facility] for suspected surgical site infection w/ fever, leukocytosis, erythematous/swollen left knee. On exam afebrile, NAD, nontoxic appearing, physical exam as noted above with left lower extremity swelling, left knee swelling with surgical site appears appropriately healing. Tender to palpation. No surrounding erythema, fluctuance/induration or warmth. Concern for septic joint vs bacteremia. Low suspicion for abscess or osteomyelitis Plan: Labs, lactic/blood cultures venous duplex ultrasound (could not find reports in documents sent), admission Please refer to course for remaining clinical decision making, interpretation of labs/imaging results, and discussions with consultants and/or family members. Differential Diagnosis Differential Diagnoses: The differential diagnosis associated with the presentation includes As above Admission/Observation Consideration of admission/observation: Escalation of care including admission/observation considered Consult Healthcare Provider Management of the patient was discussed with: Hospitalist Lab Data [place] Lab Attestation statement: I reviewed the patient's lab results. Radiology Impression Discussion of test interpretation with radiology: I have reviewed the radiologist's reading. Independent Historian Clinical information obtained from an independent historian. History obtained from or confirmed by: EMS External Record Review External record reviewed: Inpatient record, Office record, Outpatient record, Prior outpatient labs, Prior outpatient radiology, Primary care record and Outside ED record Tests considered The following testing was considered but not selected: As above Prescription Management I considered prescription management with: Pain Medication Discharge Plan Discharge Clinical Impression: Acute pain of left knee, Leukocytosis, Complication, postoperative Patient Disposition: Admitted As Inpatient
--- NOTE | 2023-05-03 21:05 | PM.IMHP ---
History of Present Illness Date of Service: 05/03/23 Chief Complaint: Fever this is a 73-year-old female with pertinent history of AFib on Eliquis, ESRD on hemodialysis, CAD status post CABG, interstitial lung disease, congestive heart failure with reduced ejection fraction, 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 Patient was recently admitted for left femur fracture and underwent left femur IMN on 04/22/[address] Tripp. Patient states she was undergoing rehab and went for dialysis today where she was found to be febrile. Blood work revealed leukocytosis. [facility] consulted due to left knee pain, swelling and erythema who recommended transfer. Dr. Tripp was consulted who accepted transfer possible surgical site infection. Review of Systems Constitutional: Constitutional: Reports chills, Reports fatigue and Reports fever(s) Cardiovascular: Cardiovascular: Reports no additional cardiovascular complaints Respiratory: Respiratory: Reports no additional respiratory complaints Gastrointestinal: Gastrointestinal: Reports no additional gastrointestinal complaints Genitourinary: Genitourinary: Reports no additional female genitourinary complaints Musculoskeletal: Musculoskeletal: Reports arthralgias and Reports joint swelling Endocrine: Endocrine: Reports fatigue [facility] Medical History History of DVT (deep vein thrombosis) History of non-ST elevation myocardial infarction (NSTEMI) (~12/2020) Osteopenia ESRD (end stage renal disease) Interstitial lung disease Atherosclerotic cardiovascular disease Aortic stenosis CAD (coronary artery disease) PAF (paroxysmal atrial fibrillation) (~12/2020) Anemia Asthmatic bronchitis GERD (gastroesophageal reflux disease) CKD (chronic kidney disease), stage IV History of ectopic Depression Hypertension Family History Father No problems noted. Mother Myocardial infarction Surgical History History of coronary artery bypass graft x 3 S/P arteriovenous (AV) fistula creation History of colonoscopy History of total replacement of right shoulder joint History of rectopexy History of left knee replacement History of carpal tunnel release of both wrists Social History Household Members: Spouse Housing: House Do you presently have visiting nurse or other home services: No Alcohol intake: current Alcohol intake frequency: holidays/special occasions only Patient Tobacco Use Status: Never used Tobacco Tobacco use type: Cigarette Cigarettes Per Day: 4 Second Hand Smoke Exposure: No Advance Directives Date on File: 03/10/23 service: No Current occupational status: retired Current occupation: young,right handed Meds Allergies Allergy/AdvReac Type Severity Reaction Status Date / Time atenolol [ATENOLOL] Allergy Severe DIFF Verified 04/06/23 09:59 BREATHING, heart races. doxycycline Allergy Severe Anaphylaxis Verified 04/06/23 09:59 duloxetine Allergy Severe Anaphylaxis Verified 04/06/23 09:59 amphetamine [Adderall] AdvReac Severe shortness Verified 04/06/23 09:59 of breath dextroamphetamine [Adderall] AdvReac Severe shortness Verified 04/06/23 09:59 of breath Home Medications Medication Instructions Recorded Confirmed Last Taken Type gabapentin 300 mg capsule 300 mg PO DAILY 11/09/22 05/03/23 05/03/23 History furosemide 40 mg tablet (Lasix) 40 mg PO TUTHSA 03/07/23 05/03/23 05/02/23 History aspirin 81 mg chewable tablet 81 mg PO DAILY 03/10/23 05/03/23 05/03/23 History fluoxetine 20 mg capsule 20 mg PO DAILY 03/15/23 05/03/23 05/03/23 History nitroglycerin 0.4 mg/hr 0.4 mg transdermal DAILY@0400 04/20/23 05/03/23 05/03/23 History transdermal 24 hour patch sevelamer carbonate 800 mg tablet 800 mg PO TIDWM 04/20/23 05/03/23 05/03/23 History acetaminophen 325 mg tablet 975 mg PO TID 05/03/23 05/03/23 05/03/23 History atorvastatin 80 mg tablet 80 mg PO DAILY 05/03/23 05/03/23 05/03/23 History carvedilol 6.25 mg tablet 6.25 mg PO BID 05/03/23 05/03/23 05/03/23 History docusate sodium 100 mg tablet 100 mg PO BID 05/03/23 05/03/23 05/02/23 History oxycodone 5 mg tablet 2.5 mg PO BID 05/03/23 05/03/23 05/03/23 History oxycodone 5 mg tablet 5 mg PO Q4H PRN Pain 05/03/23 05/03/23 05/03/23 History pantoprazole 40 mg tablet,delayed 40 mg PO DAILY 05/03/23 05/03/23 05/03/23 History release trazodone 50 mg tablet 50 mg PO BEDTIME 05/03/23 05/03/23 05/02/23 History Physical Exam Vital Signs and Narrative: Vital Signs: Last Vital Signs Temp 98.4 F 05/03/23 19:32 Pulse 80 05/03/23 19:32 Resp 16 05/03/23 19:32 BP 139/77 05/03/23 19:32 Pulse Ox 95 05/03/23 19:32 O2 Del Method Room Air 05/03/23 19:32 BMI result Body Mass Index 22.7 Elderly female lying in bed in no distress Neck supple, no JVD irregularly irregular, S1-S2 heard Regular breath sounds bilaterally, no wheezing or crackles appreciated Abdomen soft nontender, no guarding, no rigidity Patient is awake, alert and oriented to self, place, time and person ; no focal motor deficit musculoskeletal: Left knee with swelling, warmth and erythema also tenderness with range of motion Psych: Normal mood No pedal edema Results Labs 05/03/23 21:12 05/03/23 21:12 Assessment and Plan (1) SIRS (systemic inflammatory response syndrome): Status: Acute Plan This is a 73-year-old female with pertinent history of AFib on Eliquis, ESRD on hemodialysis, CAD status post CABG, interstitial lung disease, congestive heart failure with reduced ejection fraction, 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 #. Sepsis with concerns for surgical site infection. Patient was febrile at outside facility and found to have leukocytosis. Concern for surgical site infection as per [facility]. Will obtain imaging. Initiating broad-spectrum antibiotics, renally dosed. Orthopedic surgery was consulted from the ER, appreciate assistance #. ESRD on hemodialysis. Consulting Nephrology #. CAD status post CABG. On aspirin, high-intensity statin. Holding beta-alessia in the setting of sepsis #. congestive heart failure with reduced ejection fraction. Holding beta-alessia and Lasix in the setting of sepsis. No decompensation during admission #. paroxysmal atrial fibrillation on Eliquis. Hold Eliquis until surgical evaluation. Rate controlled in the ER #. mood disorder. Continue home mood stabilizers #. recently diagnosed adenocarcinoma of left lower lung. Follow-up Oncology as an outpatient DVT prophylaxis: Hold anticoagulation until surgical evaluation Full code Admit as inpatient and will require two night minimum hospital stay for IV antibiotics Time Spent With Patient Time: Total time managing care of this patient today ____ minutes. Quality Stroke Does the patient have a stroke diagnosis?: No VTE Prior VTE?: No VTE Risk Level:: Medical - moderate - high VTE Device Contraindication: Treatment Not Indicated VTE Drug Contraindication: N/A - Med Ordered
[2023-05-03 21:24] LABS: MANUAL DIFF FLAG NO
--- NOTE | 2023-05-03 21:32 | PHA.MEDREC ---
Pharmacy Consult ? Medication Reconciliation Pharmacy has completed the medication reconciliation. Patient transfered from [facility], utilized 72 hour medication report. Meche Aguilar, DiliaD
[2023-05-03 21:33] LABS: Basophils Absolute Auto 0.1 X10*3/uL (0.0-0.2); Basophils Percent Auto 0.3 % (0-2); Eosinophils Absolute Auto 0.1 X10*3/uL (0.0-0.4); Eosinophils Percent Auto 0.4 % (0-4); Hematocrit 28.9 % (37.0-47.0); Hemoglobin 9.3 g/dl (12.0-16.0); Imm Gran Abs Auto 0.27 X10*3/uL (0.00-0.03); Imm Gran Pct Auto 1.7 % (0.0-0.4); Lymphocytes Absolute Auto 1.1 X10*3/uL (1.2-4.9); Lymphocytes Percent Auto 6.7 % (20-40); Mean Corpuscular HGB Conc 32.2 g/dl (31.0-35.0); Mean Corpuscular Hemoglobin 30.5 pg (27.0-33.0); Mean Corpuscular Volume 94.8 fL (80.0-98.0); Mean Platelet Volume 9.7 fL (9.4-12.3); Monocytes Absolute Auto 0.9 X10*3/uL (0.1-1.2); Monocytes Percent Auto 5.5 % (2-11); Neutrophils Absolute Auto 13.9 x10*3/uL (2.0-8.3); Neutrophils Percent Auto 85.4 % (45-73); Platelet Count 303 X10*3/uL (160-400); Red Blood Count 3.05 X10*6/uL (4.20-5.50); Red Cell Distribution Width 16.2 % (11.0-16.0); White Blood Count 16.2 X10*3/uL (4.8-10.8)
[2023-05-03 21:38] LABS: Lactic Acid 0.7 mmol/L (0.5-2.0)
[2023-05-03 21:42] LABS: Anion Gap 15 (12-20); Blood Urea Nitrogen 26 mg/dL (9-16); C Reactive Protein 26.06 mg/dL (< or = 0.50); Calcium 8.7 mg/dL (8.4-10.2); Carbon Dioxide 27 mmol/L (22-29); Chloride 98 mmol/L (96-108); Creatinine Clr Calc Pharmacy 12.6; Estimated Glomerular Filt Rate 16; Glucose Random 86 mg/dL (60-115); Potassium 4.8 mmol/L (3.3-5.1); Sodium 135 mmol/L (135-145)
[2023-05-03 22:07] LABS: Erythrocyte Sedimentation Rate 83 MM/HR (0-20)
[2023-05-03 22:18] LABS: Vancomycin Random 23.4 mcg/mL (15-20)
--- NOTE | 2023-05-03 22:19 | PC.NURSE ---
Patient is resting comfortably on stretcher, respirations even and unlabored, pt requesting medication for pain. MD aware, meds ordered
--- NOTE | 2023-05-03 22:27 | PHA.PROG ---
Admission Date/Time: Indication: Skin - Sepsis Weight in k.431 kg Adjusted body weight in K.4 kg Sasser body weight in K.4 kg Obesity Dosing Indication % IBW: Serum Creatinine - Last 168 Hours 05/03/23 21:12 Creatinine 2.91 H Estimated CrCl and GFR - Last 168 Hours 05/03/23 21:12 Estim Creat Clear Calc 12.6 Estimated GFR 16 Vancomycin Loading Dose: 1000 mg Current Vancomycin Dosing Regimen: dose based on dialysis Date and Time for next Vancomycin Level to be drawn: 05/05 @ 1800 Pharmacist Comments on Vancomycin Plan: patient received vancomycin 1000 mg in the [facility] ER on 05/02 @ 1400 patient reported she had diaylsis this morning at [id number], since patient had diaylsis today got a random level patient level 23.4 today, therefore will hold dose Patient typically get diaylsis MoWeFr, pharmacy will monitor for extra session daily Meche Aguilar PharmD Vancomycin dosing will take advantage of [employer] as a clinical decision support tool that uses Bayesian modeling to calculate individual patient's pharmacokinetic parameters and forecast the patient's drug concentration time course with the target goal AUC 24 range of 400 - 600 mg/L/hr.
[2023-05-03] MEDS: Morphine Sulfate 4 MG/ML CARTRIDGE IVPUSH (22:41)
[2023-05-03] MEDS: traZODone HCL 50 MG TABLET PO (22:41)
[2023-05-03] MEDS: Piperacillin Sodium/Tazobactam 4.5 GM in 0.9 % Sodium Chloride 100 ML IV (22:41)
--- NOTE | 2023-05-04 01:56 | PC.NURSE ---
late entry: purewick placed on patient d/t patient not being able to lift hips or rotate effectively for bedpan. Patient is sleeping at this time, respirations even and unlabored, skin pwd, no apparent distress
[2023-05-04 04:24] VITALS: BP 186/83; PULSE 95; RESP 18; O2SAT 94
[2023-05-04 05:50] LABS: Alanine Aminotransferase < 5 U/L (0-31); Albumin Level 2.2 g/dL (3.5-5.0); Alkaline Phosphatase 133 U/L (39-117); Anion Gap 14 (12-20); Aspartate Amino Transferase 12 U/L (5-31); Bilirubin Total 0.6 mg/dL (0.0-1.0); Blood Urea Nitrogen 30 mg/dL (9-16); Calcium 8.8 mg/dL (8.4-10.2); Carbon Dioxide 25 mmol/L (22-29); Chloride 99 mmol/L (96-108); Creatinine Clr Calc Pharmacy 11.3; Estimated Glomerular Filt Rate 14; Glucose Random 84 mg/dL (60-115); Potassium 4.5 mmol/L (3.3-5.1); Sodium 133 mmol/L (135-145); Total Protein 5.7 g/dL (6.5-8.0)
[2023-05-04 08:21] VITALS: BP 151/60; PULSE 78; RESP 17; O2SAT 96
--- NOTE | 2023-05-04 09:32 | PM.CNOR ---
History of Present Illness HPI Consult date: 05/04/23 Chief complaint: Fever Narrative: 73-year-old female with a PMH significant for paroxysmal AFib on Eliquis, ESRD on hemodialysis (M/W/F), carotid stenosis, CAD s/p CABG, interstitial lung disease, HTN, HFrEF, and recently diagnosed adenocarcinoma of left lower lung (05/11/2023), recently discharged from our facility on 04/25 s/p femur fracture s/p ORIF on 04/22 who was initially seen in the [facility] ED due to suspected surgical site infection w/ fever, leukocytosis, erythematous/swollen left knee. Patient noted to have a leukocytosis of 18,000, and x-ray w/o hardware issue, was given Vancomycin/Zosyn. The patient was transferred to [facility], transfer accepted by the medical team. Patient also reports had ultrasound which is negative for DVT. Orthopedics was consulted for further recommendations. Review of Systems Review of Systems: Yes all other systems are reviewed and are negative PMFSH Past Medical History Medical History History of DVT (deep vein thrombosis) History of non-ST elevation myocardial infarction (NSTEMI) (~12/2020) Osteopenia ESRD (end stage renal disease) Interstitial lung disease Atherosclerotic cardiovascular disease Aortic stenosis CAD (coronary artery disease) PAF (paroxysmal atrial fibrillation) (~12/2020) Anemia Asthmatic bronchitis GERD (gastroesophageal reflux disease) CKD (chronic kidney disease), stage IV History of ectopic Depression Hypertension Family History Family History Father No problems noted. Mother Myocardial infarction Surgical History Surgical History History of coronary artery bypass graft x 3 S/P arteriovenous (AV) fistula creation History of colonoscopy History of total replacement of right shoulder joint History of rectopexy History of left knee replacement History of carpal tunnel release of both wrists Social History Social History Household Members: Spouse Housing: House Do you presently have visiting nurse or other home services: No Alcohol intake: current Alcohol intake frequency: holidays/special occasions only Patient Tobacco Use Status: Never used Tobacco Tobacco use type: Cigarette Cigarettes Per Day: 4 Smoked in Last 30 Days: No Second Hand Smoke Exposure: No Use of substances other than those prescribed or required for medical reasons: No Currently Displaying Signs/Symptoms of Drug Intoxication Withdrawal: No Have you been hit, kicked, punched, or otherwise hurt by someone within the past year? If so, by whom?: No Do you feel safe in your current relationship?: No Current Relationship Advance Directives: Yes Advance Directives on File: Yes Advance Directives Date on File: 03/10/23 Do you have thoughts of harming others: None Do you have a plan to hurt others: No Plan Recently lost weight without trying: No Nutrition Risks: No Nutritional Risk Patient : No : No Poor oral hygiene: No service: No Current occupational status: retired Current occupation: young,right handed Meds Allergies Allergy/AdvReac Type Severity Reaction Status Date / Time atenolol [ATENOLOL] Allergy Severe DIFF Verified 04/06/23 09:59 BREATHING, heart races. doxycycline Allergy Severe Anaphylaxis Verified 04/06/23 09:59 duloxetine Allergy Severe Anaphylaxis Verified 04/06/23 09:59 amphetamine [Adderall] AdvReac Severe shortness Verified 04/06/23 09:59 of breath dextroamphetamine [Adderall] AdvReac Severe shortness Verified 04/06/23 09:59 of breath Active Medications: Current Medications Acetaminophen (Acetaminophen 325 Mg Tablet) 650 mg PO Q6H PRN PRN Reason: Pain, Mild (Pain Scale 1-3) Acetaminophen (Acetaminophen Supp 650 Mg Supp.Rect) 650 mg [place] Q6H PRN PRN Reason: Pain, Mild (Pain Scale 1-3) Aspirin (Aspirin 81 Mg Tab.Chew) 81 mg PO DAILY [facility] Atorvastatin Calcium (Atorvastatin Calcium 80 Mg Tablet) 80 mg PO DAILY [facility] Fluoxetine HCl (Fluoxetine Hcl 20 Mg Capsule) 20 mg PO DAILY [facility] Gabapentin (Gabapentin 300 Mg Capsule) 300 mg PO DAILY [facility] Piperacillin Sod/Tazobactam (Sod 4.5 gm/ Sodium Chloride) 100 mls @ 200 mls/hr IV Q12H [facility] Last Infusion: 05/03/23 23:25 Dose: Infused Vancomycin HCl 500 mg/ Sodium (Chloride) 110 mls @ 110 mls/hr IV [id number] [facility] Melatonin (Melatonin 3 Mg Tablet) 6 mg PO BEDTIME PRN PRN Reason: Insomnia Morphine Sulfate (Morphine Sulfate 4 Mg/Ml Cartridge) 4 mg IVPUSH Q4H PRN; Protocol PRN Reason: Pain, Severe (Pain Scale 7-10) Last Admin: 05/03/23 22:41 Dose: 4 mg Omeprazole (Omeprazole 20 Mg Capsule.Dr) 20 mg PO DAILY [facility] Oxycodone HCl (Oxycodone Hcl Immed Release 5 Mg Tablet) 2.5 mg PO BID [facility] Pharmacy Consult (Consult Rx Vancomycin Dosing) 1 each MISCELLANE DAILY PRN PRN Reason: Consult order Sevelamer Carbonate (Sevelamer Carbonate Tablet 800 Mg Tablet) 800 mg PO TIDWM [facility] Sodium Chloride (0.9 % Sodium Chloride Flush 3 Ml Syringe) 3 ml IVFLUSH QSHIFT [facility] Last Admin: 05/04/23 01:04 Dose: Not Given Trazodone HCl (Trazodone Hcl 50 Mg Tablet) 50 mg PO BEDTIME [facility] Last Admin: 05/03/23 22:41 Dose: 50 mg Home Medications Medication Instructions Recorded Confirmed Last Taken Type gabapentin 300 mg capsule 300 mg PO DAILY 11/09/22 05/03/23 05/03/23 History furosemide 40 mg tablet (Lasix) 40 mg PO TUTHSA 03/07/23 05/03/23 05/02/23 History aspirin 81 mg chewable tablet 81 mg PO DAILY 03/10/23 05/03/23 05/03/23 History fluoxetine 20 mg capsule 20 mg PO DAILY 03/15/23 05/03/23 05/03/23 History nitroglycerin 0.4 mg/hr 0.4 mg transdermal DAILY@0400 04/20/23 05/03/23 05/03/23 History transdermal 24 hour patch sevelamer carbonate 800 mg tablet 800 mg PO TIDWM 04/20/23 05/03/23 05/03/23 History acetaminophen 325 mg tablet 975 mg PO TID 05/03/23 05/03/23 05/03/23 History atorvastatin 80 mg tablet 80 mg PO DAILY 05/03/23 05/03/23 05/03/23 History carvedilol 6.25 mg tablet 6.25 mg PO BID 05/03/23 05/03/23 05/03/23 History docusate sodium 100 mg tablet 100 mg PO BID 05/03/23 05/03/23 05/02/23 History oxycodone 5 mg tablet 2.5 mg PO BID 05/03/23 05/03/23 05/03/23 History oxycodone 5 mg tablet 5 mg PO Q4H PRN Pain 05/03/23 05/03/23 05/03/23 History pantoprazole 40 mg tablet,delayed 40 mg PO DAILY 05/03/23 05/03/23 05/03/23 History release trazodone 50 mg tablet 50 mg PO BEDTIME 05/03/23 05/03/23 05/02/23 History Physical Exam Vital Signs: Vital Signs: Last Vital Signs Temp 98.4 F 05/03/23 19:32 Pulse 78 05/04/23 08:21 Resp 17 05/04/23 08:21 BP 151/60 H 05/04/23 08:21 Pulse Ox 96 05/04/23 08:21 O2 Del Method Room Air 05/04/23 08:21 BMI result Body Mass Index 22.7 Const: General: cooperative, healthy appearing, comfortable and no acute distress Extrem: Other: Left knee incision clean dry and intact. No erythema or surgical site drainage. Mild swelling in the knee, no joint effusion present. Calf supple non tender. She is able to plantar and dorsi flex, NVI. Results Labs 05/05/23 05:58 05/04/23 05:20 Labs: Abnormal lab results 05/03/23 05/03/23 05/04/23 Range/Units 21:12 21:42 05:20 WBC 16.2 H (4.8-10.8) X10*3/uL RBC 3.05 L (4.20-5.50) X10*6/uL Hgb 9.3 L (12.0-16.0) g/dl Hct 28.9 L (37.0-47.0) % RDW 16.2 H (11.0-16.0) % Immature Gran % (Auto) 1.7 H (0.0-0.4) % Neut % (Auto) 85.4 H (45-73) % Lymph % (Auto) 6.7 L (20-40) % Lymph # (Auto) 1.1 L (1.2-4.9) X10*3/uL Abs Immat Gran (auto) 0.27 H (0.00-0.03) X10*3/uL Absolute Neuts (auto) 13.9 H (2.0-8.3) x10*3/uL ESR 83 H (0-20) MM/HR Sodium 133 L (135-145) mmol/L BUN 26 H 30 H (9-16) mg/dL Creatinine 2.91 H 3.24 H (0.5-1.4) mg/dL Alkaline Phosphatase 133 H (39-117) U/L C-Reactive Protein 26.06 H (< or = 0.50) mg/dL Total Protein 5.7 L (6.5-8.0) g/dL Albumin 2.2 L (3.5-5.0) g/dL Random Vancomycin 23.4 H (15-20) mcg/mL H & H 05/03/23 Range/Units 21:12 Hgb 9.3 L (12.0-16.0) g/dl Hct 28.9 L (37.0-47.0) % All other labs normal. Assessment and Plan (1) Left femoral shaft fracture: Qualifiers: Encounter type: initial encounter Fracture type: closed Fracture morphology: other fracture Qualified Code(s): S72.392A - Other fracture of shaft of left femur, initial encounter for closed fracture Status: Acute Plan No evidence of active surgical site infection with the absence of redness, swelling, joint effusion or drainage. Xrays are negative for acute post op abnormalities such as loosening of prosthesis or hardware complications-fracture is stable Patient does not require surgical intervention at this time Time Spent With Patient Time: Total time managing care of this patient today ____ minutes. Procedures Date of Service Date of Service: 05/08/23
[2023-05-04] MEDS: FLUoxetine HCl 20 MG CAPSULE PO (10:55)
[2023-05-04] MEDS: oxyCODONE HCl Immed Release 5 MG TABLET 2.5 MG PO ×2 (10:55→20:54)
[2023-05-04] MEDS: Gabapentin 300 MG CAPSULE PO (10:55)
[2023-05-04] MEDS: Atorvastatin Calcium 80 MG TABLET PO (10:56)
[2023-05-04] MEDS: Sevelamer Carbonate Tablet 800 MG TABLET PO ×3 (10:56→17:49)
[2023-05-04] MEDS: 0.9 % Sodium Chloride Flush 3 ML SYRINGE IVFLUSH ×3 (10:56→22:11)
[2023-05-04] MEDS: Aspirin 81 MG TAB.CHEW PO (10:56)
[2023-05-04] MEDS: Omeprazole 20 MG CAPSULE.DR PO (10:56)
[2023-05-04] MEDS: Piperacillin Sodium/Tazobactam 4.5 GM in 0.9 % Sodium Chloride 100 ML IV ×2 (10:56→22:10)
--- NOTE | 2023-05-04 11:19 | PM.CNNEP ---
History of Present Illness Reason for Consult Consult date: 05/04/23 Reason for consult: ESRD Chief Complaint Chief complaint: Fever History of Present Illness Narrative: 73-year-old female with pertinent history of AFib on Eliquis, ESRD on hemodialysis, CAD status post CABG, interstitial lung disease, congestive heart failure with reduced ejection fraction, 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 Patient was recently admitted for left femur fracture and underwent left femur IMN on 04/22/[address] Tripp. Patient states she was undergoing rehab and went for dialysis today where she was found to be febrile. Blood work revealed leukocytosis. [facility] Orthopedics consulted due to left knee pain, swelling and erythema who recommended transfer Usually undergoes dialysis at [facility] in [facility]. On Wednesdays and Fridays. Last dialysis was yesterday. Review of Systems Review of Systems No headache. No nausea vomiting. No abdominal pain. No shortness of breath. No cough. No dysuria urgency or hematuria. No edema. No rash. Has knee pain PMFSH Past Medical History Medical History History of DVT (deep vein thrombosis) History of non-ST elevation myocardial infarction (NSTEMI) (~12/2020) Osteopenia ESRD (end stage renal disease) Interstitial lung disease Atherosclerotic cardiovascular disease Aortic stenosis CAD (coronary artery disease) PAF (paroxysmal atrial fibrillation) (~12/2020) Anemia Asthmatic bronchitis GERD (gastroesophageal reflux disease) CKD (chronic kidney disease), stage IV History of ectopic Depression Hypertension Family History Family History Father No problems noted. Mother Myocardial infarction Surgical History Surgical History History of coronary artery bypass graft x 3 S/P arteriovenous (AV) fistula creation History of colonoscopy History of total replacement of right shoulder joint History of rectopexy History of left knee replacement History of carpal tunnel release of both wrists Social History Social History Household Members: Spouse Housing: House Do you presently have visiting nurse or other home services: No Alcohol intake: current Alcohol intake frequency: holidays/special occasions only Patient Tobacco Use Status: Never used Tobacco Tobacco use type: Cigarette Cigarettes Per Day: 4 Smoked in Last 30 Days: No Second Hand Smoke Exposure: No Use of substances other than those prescribed or required for medical reasons: No Advance Directives: Yes Advance Directives on File: Yes Advance Directives Date on File: 03/10/23 Nutrition Risks: No Nutritional Risk service: No Current occupational status: retired Current occupation: young,right handed Meds Allergies Allergy/AdvReac Type Severity Reaction Status Date / Time atenolol [ATENOLOL] Allergy Severe DIFF Verified 04/06/23 09:59 BREATHING, heart races. doxycycline Allergy Severe Anaphylaxis Verified 04/06/23 09:59 duloxetine Allergy Severe Anaphylaxis Verified 04/06/23 09:59 amphetamine [Adderall] AdvReac Severe shortness Verified 04/06/23 09:59 of breath dextroamphetamine [Adderall] AdvReac Severe shortness Verified 04/06/23 09:59 of breath Active Medications: Current Medications Acetaminophen (Acetaminophen 325 Mg Tablet) 650 mg PO Q6H PRN PRN Reason: Pain, Mild (Pain Scale 1-3) Acetaminophen (Acetaminophen Supp 650 Mg Supp.Rect) 650 mg [place] Q6H PRN PRN Reason: Pain, Mild (Pain Scale 1-3) Aspirin (Aspirin 81 Mg Tab.Chew) 81 mg PO DAILY [facility] Atorvastatin Calcium (Atorvastatin Calcium 80 Mg Tablet) 80 mg PO DAILY [facility] Fluoxetine HCl (Fluoxetine Hcl 20 Mg Capsule) 20 mg PO DAILY [facility] Gabapentin (Gabapentin 300 Mg Capsule) 300 mg PO DAILY [facility] Piperacillin Sod/Tazobactam (Sod 4.5 gm/ Sodium Chloride) 100 mls @ 200 mls/hr IV Q12H [facility] Last Infusion: 05/03/23 23:25 Dose: Infused Vancomycin HCl 500 mg/ Sodium (Chloride) 110 mls @ 110 mls/hr IV [id number] [facility] Melatonin (Melatonin 3 Mg Tablet) 6 mg PO BEDTIME PRN PRN Reason: Insomnia Morphine Sulfate (Morphine Sulfate 4 Mg/Ml Cartridge) 4 mg IVPUSH Q4H PRN; Protocol PRN Reason: Pain, Severe (Pain Scale 7-10) Last Admin: 05/03/23 22:41 Dose: 4 mg Omeprazole (Omeprazole 20 Mg Capsule.Dr) 20 mg PO DAILY [facility] Oxycodone HCl (Oxycodone Hcl Immed Release 5 Mg Tablet) 2.5 mg PO BID [facility] Pharmacy Consult (Consult Rx Vancomycin Dosing) 1 each MISCELLANE DAILY PRN PRN Reason: Consult order Sevelamer Carbonate (Sevelamer Carbonate Tablet 800 Mg Tablet) 800 mg PO TIDWM [facility] Sodium Chloride (0.9 % Sodium Chloride Flush 3 Ml Syringe) 3 ml IVFLUSH QSHIFT [facility] Last Admin: 05/04/23 01:04 Dose: Not Given Trazodone HCl (Trazodone Hcl 50 Mg Tablet) 50 mg PO BEDTIME [facility] Last Admin: 05/03/23 22:41 Dose: 50 mg Home Medications Medication Instructions Recorded Confirmed Last Taken Type gabapentin 300 mg capsule 300 mg PO DAILY 11/09/22 05/03/23 05/03/23 History furosemide 40 mg tablet (Lasix) 40 mg PO TUTHSA 03/07/23 05/03/23 05/02/23 History aspirin 81 mg chewable tablet 81 mg PO DAILY 03/10/23 05/03/23 05/03/23 History fluoxetine 20 mg capsule 20 mg PO DAILY 03/15/23 05/03/23 05/03/23 History nitroglycerin 0.4 mg/hr 0.4 mg transdermal DAILY@0400 04/20/23 05/03/23 05/03/23 History transdermal 24 hour patch sevelamer carbonate 800 mg tablet 800 mg PO TIDWM 04/20/23 05/03/23 05/03/23 History acetaminophen 325 mg tablet 975 mg PO TID 05/03/23 05/03/23 05/03/23 History atorvastatin 80 mg tablet 80 mg PO DAILY 05/03/23 05/03/23 05/03/23 History carvedilol 6.25 mg tablet 6.25 mg PO BID 05/03/23 05/03/23 05/03/23 History docusate sodium 100 mg tablet 100 mg PO BID 05/03/23 05/03/23 05/02/23 History oxycodone 5 mg tablet 2.5 mg PO BID 05/03/23 05/03/23 05/03/23 History oxycodone 5 mg tablet 5 mg PO Q4H PRN Pain 05/03/23 05/03/23 05/03/23 History pantoprazole 40 mg tablet,delayed 40 mg PO DAILY 05/03/23 05/03/23 05/03/23 History release trazodone 50 mg tablet 50 mg PO BEDTIME 05/03/23 05/03/23 05/02/23 History Physical Exam Vital Signs: Last Vital Signs Temp 98.4 F 05/03/23 19:32 Pulse 78 05/04/23 08:21 Resp 17 05/04/23 08:21 BP 151/60 H 05/04/23 08:21 Pulse Ox 96 05/04/23 08:21 O2 Del Method Room Air 05/04/23 08:21 BMI result Body Mass Index 22.7 Comfortable Neck is supple Lung: Air entry equal Heart: S1,S2, normal. No rub Abd: Soft. BS + NS : Alert.No asterexis Ext: No edema Results Lab Results 05/03/23 21:12 05/04/23 05:20 Lab results: Chemistry 05/03/23 05/04/23 21:12 05:20 Sodium 135 133 L Potassium 4.8 4.5 Carbon Dioxide 27 25 BUN 26 H 30 H Creatinine 2.91 H 3.24 H Calcium 8.7 D 8.8 Hematology 05/03/23 21:12 WBC 16.2 H Hgb 9.3 L Plt Count 303 D Assessment and Plan (1) ESRD (end stage renal disease): Status: Acute Plan Elderly woman with ESRD on maintenance hemodialysis. Admitted with knee pain. From renal standpoint she is doing very well without any signs or symptoms of uremia. Fluid status is acceptable. Plan is to arrange for hemodialysis as per schedule on Monday. Resume Epogen for anemia. Mild hyponatremia.. No interventions necessary. Monitor serum sodium as needed. Time Spent With Patient Time: Total time managing care of this patient today ____ minutes. Procedures Date of Service Date of Service: 05/04/23
--- NOTE | 2023-05-04 12:05 | MHC.CM.PN ---
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 SINCE HER LAST DC ON 04/26/23 PT REPORTS SHE BELIEVES SHE WILL NEED TO RETURN THERE TO COMPLETE REHAB AT IN SHE HAS A HCP ON FILE PCP: NATALIE MICHEL [facility] DELIVERED REFERRAL SENT TO [facility] TO DETERMINE IF THEY WILL BE ABLE TO TAKE PT BACK AT IN
--- NOTE | 2023-05-04 12:40 | HO.PM.IMPN ---
Subjective Subjective Date of Service: 05/04/23 Interval History: Feels good denies any fever or chills No reported drainage No fever documented since admission Review of Systems Review of Systems: Yes all other systems are reviewed and are negative Physical Exam Vital Signs: Vital Signs: Last Vital Signs Temp 98.4 F 05/03/23 19:32 Pulse 78 05/04/23 08:21 Resp 17 05/04/23 08:21 BP 151/60 H 05/04/23 08:21 Pulse Ox 96 05/04/23 08:21 O2 Del Method Room Air 05/04/23 08:21 BMI result Body Mass Index 22.7 Const: Other: Constitutional : Awake, interactive , not in distress Neck : Normal insp ection, Supple Car diovascular : RRR, no JVP, no lower extremity edema Re spiratory : good b ilateral air entry , no crackles, wh eezes or rhonchi G astrointestinal: soft, lax, Normal bowel sounds, Non tender Skin : Warm , Dry Skeletal: le ft knee wound maria ines n with no surround ing erythema or dr malone, fair range of motion Neurol ogical : Alert & o riented x3, No foc al deficit Objective Data Active Medications Acetaminophen (Acetaminophen 325 Mg Tablet) 650 mg PO Q6H PRN PRN Reason: Pain, Mild (Pain Scale 1-3) Acetaminophen (Acetaminophen Supp 650 Mg Supp.Rect) 650 mg [place] Q6H PRN PRN Reason: Pain, Mild (Pain Scale 1-3) Aspirin (Aspirin 81 Mg Tab.Chew) 81 mg PO DAILY [facility] Last Admin: 05/04/23 10:56 Dose: 81 mg Documented By: DALLAS Atorvastatin Calcium (Atorvastatin Calcium 80 Mg Tablet) 80 mg PO DAILY [facility] Last Admin: 05/04/23 10:56 Dose: 80 mg Documented By: DALLAS Fluoxetine HCl (Fluoxetine Hcl 20 Mg Capsule) 20 mg PO DAILY [facility] Last Admin: 05/04/23 10:55 Dose: 20 mg Documented By: D[place]AS Gabapentin (Gabapentin 300 Mg Capsule) 300 mg PO DAILY [facility] Last Admin: 05/04/23 10:55 Dose: 300 mg Documented By: DALLAS Piperacillin Sod/Tazobactam (Sod 4.5 gm/ Sodium Chloride) 100 mls @ 200 mls/hr IV Q12H [facility] Last Admin: 05/04/23 10:56 Dose: 200 mls/hr Documented By: DALLAS Vancomycin HCl 500 mg/ Sodium (Chloride) 110 mls @ 110 mls/hr IV [id number] [facility] Melatonin (Melatonin 3 Mg Tablet) 6 mg PO BEDTIME PRN PRN Reason: Insomnia Morphine Sulfate (Morphine Sulfate 4 Mg/Ml Cartridge) 4 mg IVPUSH Q4H PRN; Protocol PRN Reason: Pain, Severe (Pain Scale 7-10) Last Admin: 05/03/23 22:41 Dose: 4 mg Documented By: SRIDEVI Omeprazole (Omeprazole 20 Mg Capsule.Dr) 20 mg PO DAILY [facility] Last Admin: 05/04/23 10:56 Dose: 20 mg Documented By: D[place]AS Oxycodone HCl (Oxycodone Hcl Immed Release 5 Mg Tablet) 2.5 mg PO BID [facility] Last Admin: 05/04/23 10:55 Dose: 2.5 mg Documented By: DALLAS Pharmacy Consult (Consult Rx Vancomycin Dosing) 1 each MISCELLANE DAILY PRN PRN Reason: Consult order Sevelamer Carbonate (Sevelamer Carbonate Tablet 800 Mg Tablet) 800 mg PO TIDWM [facility] Last Admin: 05/04/23 10:56 Dose: 800 mg Documented By: D[place]AS Sodium Chloride (0.9 % Sodium Chloride Flush 3 Ml Syringe) 3 ml IVFLUSH QSHIFT [facility] Last Admin: 05/04/23 10:56 Dose: 3 ml Documented By: D[place]AS Trazodone HCl (Trazodone Hcl 50 Mg Tablet) 50 mg PO BEDTIME [facility] Last Admin: 05/03/23 22:41 Dose: 50 mg Documented By: SRIDEVI Labs 05/03/23 21:12 05/04/23 05:20 Labs: Laboratory Results - last 24 hr 05/03/23 05/03/23 05/04/23 21:12 21:42 05:20 MCV 94.8 MCH 30.5 MCHC 32.2 RDW 16.2 H Plt Count 303 D MPV 9.7 Immature Gran % (Auto) 1.7 H Neut % (Auto) 85.4 H Lymph % (Auto) 6.7 L [place] % (Auto) 5.5 Eos % (Auto) 0.4 Baso % (Auto) 0.3 Lymph # (Auto) 1.1 L [place] # (Auto) 0.9 Eos # (Auto) 0.1 Baso # (Auto) 0.1 Abs Immat Gran (auto) 0.27 H Absolute Neuts (auto) 13.9 H Absolute Nucleated RBC 0.000 Nucleated RBC % (auto) 0.0 ESR 83 H Anion Gap 15 14 Estim Creat Clear Calc 12.6 11.3 Estimated GFR 16 14 Random Glucose 86 84 Lactic Acid 0.7 Calcium 8.7 D 8.8 Total Bilirubin 0.6 AST 12 ALT < 5 Alkaline Phosphatase 133 H C-Reactive Protein 26.06 H Total Protein 5.7 L Albumin 2.2 L Random Vancomycin 23.4 H Assessment and Plan (1) Leukocytosis: Status: Acute (2) Fever: Status: Acute Plan This is a 73-year-old female with pertinent history of AFib on Eliquis, ESRD on hemodialysis, CAD status post CABG, interstitial lung disease, congestive heart failure with reduced ejection fraction, 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 # Fever with question for surgical site infection. Not septic on admission or now check UA, CXR XR knee negative Empirical antibiotics, renally dosed. Orthopedic surgery doesnt thing it is a surgical wound infection follow cultures and clinical course #. ESRD on hemodialysis. Nephrology following, on scheduled #. CAD status post CABG. aspirin, high-intensity statin. BB #. congestive heart failure with reduced ejection fraction. Continue home meds No decompensation during admission #. paroxysmal atrial fibrillation on Eliquis. Eliquis Rate controlled in the ER #. mood disorder. Continue home mood stabilizers #. recently diagnosed adenocarcinoma of left lower lung. Follow-up Oncology as an outpatient DVT prophylaxis: restart Eliquis Full code Admit as inpatient and will require two night minimum hospital stay for IV antibiotics Time Spent With Patient Time: Total time managing care of this patient today ____ minutes. Quality Stroke Does the patient have a stroke diagnosis?: No VTE Prior VTE?: No VTE Risk Level:: Medical - moderate - high VTE Device Contraindication: Treatment Not Indicated VTE Drug Contraindication: N/A - Med Ordered
--- NOTE | 2023-05-04 13:49 | HE.PHANOTE ---
re damian re damian continue current dose. pt did not get dialysis today (there was a discussion for it). Call tomorrow and verify dialysis time and put in a post dialysis level as needed lester
[2023-05-04] MEDS: Apixaban 2.5 MG TABLET PO ×2 (15:01→20:53)
[2023-05-04] MEDS: Furosemide 40 MG TABLET PO (15:01)
[2023-05-04 17:54] VITALS: BP 184/88; PULSE 78; RESP 20; TEMP 36; O2SAT 98
[2023-05-04 20:00] VITALS: BP 149/67; PULSE 84; RESP 20; TEMP 36.4; O2SAT 100
[2023-05-04] MEDS: traZODone HCL 50 MG TABLET PO (20:53)
[2023-05-04] MEDS: carvediloL 6.25 MG TABLET PO (20:53)
[2023-05-04] MEDS: Melatonin 3 MG TABLET 6 MG PO (22:51)
[2023-05-04] MEDS: Acetaminophen 325 MG TABLET 650 MG PO (22:52)
[2023-05-05 03:15] VITALS: BP 158/74; PULSE 71; RESP 19; TEMP 36.2; O2SAT 97
[2023-05-05] MEDS: Nitroglycerin 0.4 MG PATCH.TD24 TRANSDERMA (04:14)
[2023-05-05 06:43] LABS: Hematocrit 27.7 % (37.0-47.0); Hemoglobin 8.6 g/dl (12.0-16.0); Mean Corpuscular Hemoglobin 29.8 pg (27.0-33.0); Mean Corpuscular Volume 95.8 fL (80.0-98.0); Mean Platelet Volume 9.7 fL (9.4-12.3); Platelet Count 292 X10*3/uL (160-400); Red Blood Count 2.89 X10*6/uL (4.20-5.50); Red Cell Distribution Width 16.4 % (11.0-16.0); White Blood Count 12.8 X10*3/uL (4.8-10.8)
[2023-05-05 06:49] LABS: C Reactive Protein 16.32 mg/dL (< or = 0.50)
[2023-05-05 07:25] LABS: Erythrocyte Sedimentation Rate 71 MM/HR (0-20)
[2023-05-05 07:34] VITALS: BP 175/91; PULSE 72; RESP 18; TEMP 36.8; O2SAT 98
[2023-05-05] MEDS: oxyCODONE HCl Immed Release 5 MG TABLET 2.5 MG PO (08:25)
[2023-05-05] MEDS: Omeprazole 20 MG CAPSULE.DR PO (08:26)
[2023-05-05] MEDS: Atorvastatin Calcium 80 MG TABLET PO (08:26)
[2023-05-05] MEDS: Gabapentin 300 MG CAPSULE PO (08:26)
[2023-05-05] MEDS: Aspirin 81 MG TAB.CHEW PO (08:26)
[2023-05-05] MEDS: Apixaban 2.5 MG TABLET PO ×2 (08:26→20:34)
[2023-05-05] MEDS: FLUoxetine HCl 20 MG CAPSULE PO (08:26)
[2023-05-05] MEDS: 0.9 % Sodium Chloride Flush 3 ML SYRINGE IVFLUSH ×3 (08:29→20:35)
[2023-05-05] MEDS: Acetaminophen 325 MG TABLET 975 MG PO ×3 (10:28→20:34)
--- NOTE | 2023-05-05 12:41 | P.PNIM_ITS ---
Subjective Subjective Date of Service: 05/05/23 Interval History: complaining of left knee pain denies any fever or chills cultures pending No reported drainage No fever documented since admission Review of Systems Review of Systems: Yes all other systems are reviewed and are negative Physical Exam 2 Vital Signs: Vital Signs: Last Vital Signs Temp 98.3 F 05/05/23 07:34 Pulse 72 05/05/23 07:34 Resp 18 05/05/23 07:34 BP 175/91 H 05/05/23 07:34 Pulse Ox 98 05/05/23 07:34 O2 Del Method Room Air 05/05/23 07:34 BMI result Body Mass Index 22.7 Const: Other: Constitutional : Awake, interactive , not in distress Neck : Normal insp ection, Supple Car diovascular : RRR, no JVP, no lower extremity edema Re spiratory : good b ilateral air entry , no crackles, wh eezes or rhonchi G astrointestinal: soft, lax, Normal bowel sounds, Non tender Skin : Warm , Dry Skeletal: le ft knee wound maria ines n with no surround ing erythema or dr malone, decreased but fair range of motion Neurologic al : Alert & orien isis x3, No focal d eficit Objective Data Active Medications Acetaminophen (Acetaminophen 325 Mg Tablet) 650 mg PO Q6H PRN PRN Reason: Pain, Mild (Pain Scale 1-3) Last Admin: 05/04/23 22:52 Dose: 650 mg Documented By: CIELO Acetaminophen (Acetaminophen Supp 650 Mg Supp.Rect) 650 mg VA Q6H PRN PRN Reason: Pain, Mild (Pain Scale 1-3) Acetaminophen (Acetaminophen 325 Mg Tablet) 975 mg PO TID [facility] Last Admin: 05/05/23 10:28 Dose: 975 mg Documented By: LARISSA Apixaban (Apixaban 2.5 Mg Tablet) 2.5 mg PO BID [facility] Last Admin: 05/05/23 08:26 Dose: 2.5 mg Documented By: LARISSA Aspirin (Aspirin 81 Mg Tab.Chew) 81 mg PO DAILY [facility] Last Admin: 05/05/23 08:26 Dose: 81 mg Documented By: LARISSA Atorvastatin Calcium (Atorvastatin Calcium 80 Mg Tablet) 80 mg PO DAILY [facility] Last Admin: 05/05/23 08:26 Dose: 80 mg Documented By: HO.PRESTOS Carvedilol (Carvedilol 6.25 Mg Tablet) 6.25 mg PO BID [facility]; Protocol Last Admin: 05/05/23 08:27 Dose: Not Given Documented By: LARISSA Non-Kerry Reason: Off unit: Dialysis Fluoxetine HCl (Fluoxetine Hcl 20 Mg Capsule) 20 mg PO DAILY [facility] Last Admin: 05/05/23 08:26 Dose: 20 mg Documented By: LARISSA Furosemide (Furosemide 40 Mg Tablet) 40 mg PO TUTHSA [facility]; Protocol Last Admin: 05/04/23 15:01 Dose: 40 mg Documented By: D[place]AS Gabapentin (Gabapentin 300 Mg Capsule) 300 mg PO DAILY [facility] Last Admin: 05/05/23 08:26 Dose: 300 mg Documented By: LARISSA Piperacillin Sod/Tazobactam (Sod 4.5 gm/ Sodium Chloride) 100 mls @ 200 mls/hr IV Q12H [facility] Last Infusion: 05/04/23 22:53 Dose: Infused Documented By: CIELO Vancomycin HCl 500 mg/ Sodium (Chloride) 110 mls @ 110 mls/hr IV [id number] [facility] Melatonin (Melatonin 3 Mg Tablet) 6 mg PO BEDTIME PRN PRN Reason: Insomnia Last Admin: 05/04/23 22:51 Dose: 6 mg Documented By: CIELO Nitroglycerin (Nitroglycerin 0.4 Mg Patch.Td24) 0.4 mg TRANSDERMA DAILY@0400 [facility]; Protocol Last Admin: 05/05/23 04:14 Dose: 0.4 mg Documented By: CIELO Omeprazole (Omeprazole 20 Mg Capsule.) 20 mg PO DAILY [facility] Last Admin: 05/05/23 08:26 Dose: 20 mg Documented By: LARISSA Oxycodone HCl (Oxycodone Hcl Immed Release 5 Mg Tablet) 5 mg PO Q4H PRN PRN Reason: Pain, Severe (Pain Scale 7-10) Oxycodone HCl (Oxycodone Hcl Er 10 Mg Tab.Er.12h) 10 mg PO BID [facility] Last Admin: 05/05/23 10:24 Dose: Not Given Documented By: LARISSA Non-Admin Reason: Previously Administered Pharmacy Consult (Consult Rx Vancomycin Dosing) 1 each MISCELLANE DAILY PRN PRN Reason: Consult order Sevelamer Carbonate (Sevelamer Carbonate Tablet 800 Mg Tablet) 800 mg PO TIDWM [facility] Last Admin: 05/05/23 08:38 Dose: 800 mg Documented By: LARISSA Sodium Chloride (0.9 % Sodium Chloride Flush 3 Ml Syringe) 3 ml IVFLUSH QSHIFT [facility] Last Admin: 05/05/23 08:29 Dose: 3 ml Documented By: LARISSA Trazodone HCl (Trazodone Hcl 50 Mg Tablet) 50 mg PO BEDTIME [facility] Last Admin: 05/04/23 20:53 Dose: 50 mg Documented By: MAXIMUSQC Labs 05/05/23 05:58 05/04/23 05:20 Labs: Laboratory Results - last 24 hr 05/05/23 05:58 MCV 95.8 MCH 29.8 MCHC 31.0 RDW 16.4 H Plt Count 292 MPV 9.7 Absolute Nucleated RBC 0.000 Nucleated RBC % (auto) 0.0 ESR 71 H C-Reactive Protein 16.32 H Microbiology Microbiology Results: Microbiology 05/03/23 21:42 Blood Culture - Preliminary Blood - Venous No growth after 24 hours. 05/03/23 21:12 Blood Culture - Preliminary Blood - Venous No growth after 24 hours. Assessment and Plan (1) Fever: Status: Acute (2) Left femoral shaft fracture: Status: Acute Plan This is a 73-year-old female with pertinent history of AFib on Eliquis, ESRD on hemodialysis, CAD status post CABG, interstitial lung disease, congestive heart failure with reduced ejection fraction, 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 # Fever with question for surgical site infection. Not septic on admission or now negative CXR XR knee negative Empirical antibiotics, renally dosed. Orthopedic surgery doesnt thing it is a surgical wound infection follow cultures and clinical course # Left knee pain Post surgical, expected per orthopedic team Start Oxycontin and Tylenol ATC Oxycodone PRN #. ESRD on hemodialysis. Nephrology following, on scheduled #. CAD status post CABG. aspirin, high-intensity statin. BB #. congestive heart failure with reduced ejection fraction. Continue home meds No decompensation during admission #. paroxysmal atrial fibrillation on Eliquis. Eliquis Rate controlled in the ER #. mood disorder. Continue home mood stabilizers #. recently diagnosed adenocarcinoma of left lower lung. Follow-up Oncology as an outpatient DVT prophylaxis: luann Uribe Full code Admit as inpatient and will require two night minimum hospital stay for IV antibiotics pending final cultures Time Spent With Patient Time: Total time managing care of this patient today ____ minutes. Quality Stroke Does the patient have a stroke diagnosis?: No VTE Prior VTE?: No VTE Risk Level:: Medical - moderate - high VTE Device Contraindication: Treatment Not Indicated VTE Drug Contraindication: N/A - Med Ordered
[2023-05-05] MEDS: Piperacillin Sodium/Tazobactam 4.5 GM in 0.9 % Sodium Chloride 100 ML IV ×2 (12:46→22:14)
[2023-05-05] MEDS: Sevelamer Carbonate Tablet 800 MG TABLET PO ×2 (12:46→18:44)
--- NOTE | 2023-05-05 12:55 | PC.NURSE ---
Kane previous RN was not able to contact dialysis nurse,I attempted twice but unable to contact dialysis,made Charge nurse aware ,Johny is looking into dialysis schedule
[2023-05-05] MEDS: oxyCODONE HCl Immed Release 5 MG TABLET PO ×2 (13:01→18:44)
--- NOTE | 2023-05-05 14:46 | MHC.CM.PN ---
EMR REVIEWED AND PER MD ROUNDS, PT SHOULD BE READY FOR DC TOMORROW, [facility] UPDATED. P.T. RECOMMENDS RETURN TO [facility]. CM WILL CONTINUE TO FOLLOW FOR ANY CHANGE IN DC PLAN/NEEDS
--- NOTE | 2023-05-05 15:49 | PC.NURSE ---
patient returned from dialysis
[2023-05-05 16:00] VITALS: BP 113/58; PULSE 85; RESP 20; TEMP 36.4; O2SAT 95
--- NOTE | 2023-05-05 17:10 | P.CONNP_ITS ---
History of Present Illness Reason for Consult Consult date: 05/05/23 Chief Complaint Chief complaint: Fever History of Present Illness Narrative: Ms. Maryam Ramos is a 73-year-old female with pertinent history of AFib on Eliquis, ESRD on hemodialysis, CAD status post CABG, interstitial lung disease, congestive heart failure with reduced ejection fraction, 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 She was evaluated today on maintenance HD Review of Systems Review of Systems No headache. No nausea vomiting. No abdominal pain. No shortness of breath. No cough. No dysuria urgency or hematuria. No edema. No rash. Has knee pain PMFSH Past Medical History Medical History History of DVT (deep vein thrombosis) History of non-ST elevation myocardial infarction (NSTEMI) (~12/2020) Osteopenia ESRD (end stage renal disease) Interstitial lung disease Atherosclerotic cardiovascular disease Aortic stenosis CAD (coronary artery disease) PAF (paroxysmal atrial fibrillation) (~12/2020) Anemia Asthmatic bronchitis GERD (gastroesophageal reflux disease) CKD (chronic kidney disease), stage IV History of ectopic Depression Hypertension Family History Family History Father No problems noted. Mother Myocardial infarction Surgical History Surgical History History of coronary artery bypass graft x 3 S/P arteriovenous (AV) fistula creation History of colonoscopy History of total replacement of right shoulder joint History of rectopexy History of left knee replacement History of carpal tunnel release of both wrists Social History Social History Household Members: Spouse Housing: House Do you presently have visiting nurse or other home services: No Alcohol intake: current Alcohol intake frequency: holidays/special occasions only Patient Tobacco Use Status: Never used Tobacco Tobacco use type: Cigarette Cigarettes Per Day: 4 Smoked in Last 30 Days: No Second Hand Smoke Exposure: No Use of substances other than those prescribed or required for medical reasons: No Currently Displaying Signs/Symptoms of Drug Intoxication Withdrawal: No Have you been hit, kicked, punched, or otherwise hurt by someone within the past year? If so, by whom?: No Do you feel safe in your current relationship?: No Current Relationship Advance Directives: Yes Advance Directives on File: Yes Advance Directives Date on File: 03/10/23 Do you have thoughts of harming others: None Do you have a plan to hurt others: No Plan Recently lost weight without trying: No Nutrition Risks: No Nutritional Risk Patient : No : No Poor oral hygiene: No service: No Current occupational status: retired Current occupation: young,right handed Meds Allergies Allergy/AdvReac Type Severity Reaction Status Date / Time atenolol [ATENOLOL] Allergy Severe DIFF Verified 04/06/23 09:59 BREATHING, heart races. doxycycline Allergy Severe Anaphylaxis Verified 04/06/23 09:59 duloxetine Allergy Severe Anaphylaxis Verified 04/06/23 09:59 amphetamine [Adderall] AdvReac Severe shortness Verified 04/06/23 09:59 of breath dextroamphetamine [Adderall] AdvReac Severe shortness Verified 04/06/23 09:59 of breath Active Medications: Current Medications Acetaminophen (Acetaminophen 325 Mg Tablet) 650 mg PO Q6H PRN PRN Reason: Pain, Mild (Pain Scale 1-3) Last Admin: 05/04/23 22:52 Dose: 650 mg Acetaminophen (Acetaminophen Supp 650 Mg Supp.Rect) 650 mg SC Q6H PRN PRN Reason: Pain, Mild (Pain Scale 1-3) Acetaminophen (Acetaminophen 325 Mg Tablet) 975 mg PO TID [facility] Last Admin: 05/05/23 15:57 Dose: 975 mg Apixaban (Apixaban 2.5 Mg Tablet) 2.5 mg PO BID [facility] Last Admin: 05/05/23 08:26 Dose: 2.5 mg Aspirin (Aspirin 81 Mg Tab.Chew) 81 mg PO DAILY [facility] Last Admin: 05/05/23 08:26 Dose: 81 mg Atorvastatin Calcium (Atorvastatin Calcium 80 Mg Tablet) 80 mg PO DAILY [facility] Last Admin: 05/05/23 08:26 Dose: 80 mg Carvedilol (Carvedilol 6.25 Mg Tablet) 6.25 mg PO BID [facility]; Protocol Last Admin: 05/05/23 08:27 Dose: Not Given Fluoxetine HCl (Fluoxetine Hcl 20 Mg Capsule) 20 mg PO DAILY [facility] Last Admin: 05/05/23 08:26 Dose: 20 mg Furosemide (Furosemide 40 Mg Tablet) 40 mg PO TUTHSA [facility]; Protocol Last Admin: 05/04/23 15:01 Dose: 40 mg Gabapentin (Gabapentin 300 Mg Capsule) 300 mg PO DAILY [facility] Last Admin: 05/05/23 08:26 Dose: 300 mg Piperacillin Sod/Tazobactam (Sod 4.5 gm/ Sodium Chloride) 100 mls @ 200 mls/hr IV Q12H [facility] Last Infusion: 05/05/23 15:59 Dose: Infused Vancomycin HCl 500 mg/ Sodium (Chloride) 110 mls @ 110 mls/hr IV [id number] [facility] Melatonin (Melatonin 3 Mg Tablet) 6 mg PO BEDTIME PRN PRN Reason: Insomnia Last Admin: 05/04/23 22:51 Dose: 6 mg Nitroglycerin (Nitroglycerin 0.4 Mg Patch.Td24) 0.4 mg TRANSDERMA DAILY@0400 [facility]; Protocol Last Admin: 05/05/23 04:14 Dose: 0.4 mg Omeprazole (Omeprazole 20 Mg Capsule.Dr) 20 mg PO DAILY [facility] Last Admin: 05/05/23 08:26 Dose: 20 mg Oxycodone HCl (Oxycodone Hcl Immed Release 5 Mg Tablet) 5 mg PO Q4H PRN PRN Reason: Pain, Severe (Pain Scale 7-10) Last Admin: 05/05/23 13:01 Dose: 5 mg Oxycodone HCl (Oxycodone Hcl Er 10 Mg Tab.Er.12h) 10 mg PO BID [facility] Last Admin: 05/05/23 10:24 Dose: Not Given Pharmacy Consult (Consult Rx Vancomycin Dosing) 1 each MISCELLANE DAILY PRN PRN Reason: Consult order Sevelamer Carbonate (Sevelamer Carbonate Tablet 800 Mg Tablet) 800 mg PO TIDWM [facility] Last Admin: 05/05/23 12:46 Dose: 800 mg Sodium Chloride (0.9 % Sodium Chloride Flush 3 Ml Syringe) 3 ml IVFLUSH QSHIFT [facility] Last Admin: 05/05/23 15:58 Dose: 3 ml Trazodone HCl (Trazodone Hcl 50 Mg Tablet) 50 mg PO BEDTIME [facility] Last Admin: 05/04/23 20:53 Dose: 50 mg Home Medications Medication Instructions Recorded Confirmed Last Taken Type gabapentin 300 mg capsule 300 mg PO DAILY 11/09/22 05/03/23 05/03/23 History furosemide 40 mg tablet (Lasix) 40 mg PO TUTHSA 03/07/23 05/03/23 05/02/23 History aspirin 81 mg chewable tablet 81 mg PO DAILY 03/10/23 05/03/23 05/03/23 History fluoxetine 20 mg capsule 20 mg PO DAILY 03/15/23 05/03/23 05/03/23 History nitroglycerin 0.4 mg/hr 0.4 mg transdermal DAILY@0400 04/20/23 05/03/23 05/03/23 History transdermal 24 hour patch sevelamer carbonate 800 mg tablet 800 mg PO TIDWM 04/20/23 05/03/23 05/03/23 History acetaminophen 325 mg tablet 975 mg PO TID 05/03/23 05/03/23 05/03/23 History atorvastatin 80 mg tablet 80 mg PO DAILY 05/03/23 05/03/23 05/03/23 History carvedilol 6.25 mg tablet 6.25 mg PO BID 05/03/23 05/03/23 05/03/23 History docusate sodium 100 mg tablet 100 mg PO BID 05/03/23 05/03/23 05/02/23 History oxycodone 5 mg tablet 2.5 mg PO BID 05/03/23 05/03/23 05/03/23 History oxycodone 5 mg tablet 5 mg PO Q4H PRN Pain 05/03/23 05/03/23 05/03/23 History pantoprazole 40 mg tablet,delayed 40 mg PO DAILY 05/03/23 05/03/23 05/03/23 History release trazodone 50 mg tablet 50 mg PO BEDTIME 05/03/23 05/03/23 05/02/23 History Physical Exam Vital Signs: Last Vital Signs Temp 97.6 F 05/05/23 16:00 Pulse 85 05/05/23 16:00 Resp 20 05/05/23 16:00 BP 113/58 L 05/05/23 16:00 Pulse Ox 95 05/05/23 16:00 O2 Del Method Room Air 05/05/23 16:00 BMI result Body Mass Index 22.7 Const Other: Constitutional : Awake, interactive, not in distress Neck : Normal inspection, Supple Cardiovascular : RRR, no JVP, no lower extremity edema Respiratory : good bilateral air entry, no crackles, wheezes or rhonchi Gastrointestinal: soft, lax, Normal bowel sounds, Non tender Skin : Warm, Dry Skeletal: left knee wound clean with no surrounding erythema or drainage, decreased but fair range of motion Neurological : Alert & oriented x3, No focal deficit Results Lab Results 05/05/23 05:58 05/04/23 05:20 Lab results: Chemistry 05/03/23 05/04/23 21:12 05:20 Sodium 135 133 L Potassium 4.8 4.5 Carbon Dioxide 27 25 BUN 26 H 30 H Creatinine 2.91 H 3.24 H Calcium 8.7 D 8.8 Hematology 05/03/23 05/05/23 21:12 05:58 WBC 16.2 H 12.8 H Hgb 9.3 L 8.6 L Plt Count 303 D 292 Assessment and Plan (1) ESRD (end stage renal disease): Status: Acute Plan Elderly woman with ESRD on maintenance hemodialysis. Admitted with knee pain. From renal standpoint she is doing very well without any signs or symptoms of uremia. Fluid status is acceptable. Plan is to arrange for hemodialysis as per schedule on Monday. Resume Epogen for anemia. EPO weekly, dosed today. renal panel on dialysis days. Time Spent With Patient Time: Total time managing care of this patient today ____ minutes. Procedures Date of Service Date of Service: 05/05/23
[2023-05-05 17:48] LABS: Vancomycin Random 15.7 mcg/mL (15-20)
[2023-05-05 19:08] VITALS: BP 131/70; PULSE 82; RESP 18; TEMP 36.7; O2SAT 94
[2023-05-05] MEDS: oxyCODONE HCl ER 10 MG TAB.ER.12H PO (20:33)
[2023-05-05] MEDS: traZODone HCL 50 MG TABLET PO (20:34)
[2023-05-05] MEDS: carvediloL 6.25 MG TABLET PO (20:34)
[2023-05-06 03:11] VITALS: BP 160/72; PULSE 69; RESP 16; TEMP 36; O2SAT 96
[2023-05-06] MEDS: Nitroglycerin 0.4 MG PATCH.TD24 TRANSDERMA (04:41)
[2023-05-06] MEDS: oxyCODONE HCl Immed Release 5 MG TABLET PO (05:43)
[2023-05-06 07:09] VITALS: BP 158/84; PULSE 83; RESP 16; TEMP 36.6; O2SAT 97
[2023-05-06] MEDS: FLUoxetine HCl 20 MG CAPSULE PO (07:54)
[2023-05-06] MEDS: Atorvastatin Calcium 80 MG TABLET PO (07:54)
[2023-05-06] MEDS: carvediloL 6.25 MG TABLET PO (07:54)
[2023-05-06] MEDS: Gabapentin 300 MG CAPSULE PO (07:54)
[2023-05-06] MEDS: Aspirin 81 MG TAB.CHEW PO (07:54)
[2023-05-06] MEDS: oxyCODONE HCl ER 10 MG TAB.ER.12H PO (07:55)
[2023-05-06] MEDS: Acetaminophen 325 MG TABLET 975 MG PO (07:55)
[2023-05-06] MEDS: Omeprazole 20 MG CAPSULE.DR PO (07:55)
[2023-05-06] MEDS: Apixaban 2.5 MG TABLET PO (07:55)
[2023-05-06] MEDS: Sevelamer Carbonate Tablet 800 MG TABLET PO ×2 (07:56→11:59)
[2023-05-06] MEDS: 0.9 % Sodium Chloride Flush 3 ML SYRINGE IVFLUSH (07:56)
[2023-05-06] MEDS: cephALEXin 500 MG CAPSULE PO (08:49)
--- NOTE | 2023-05-06 09:25 | P.PNNP_ITS ---
Subjective Subjective Date of Service: 05/06/23 Interval history: Dialyzed yesterday Physical Exam 2 Vital Signs: Vital Signs: Last Vital Signs Temp 97.9 F 05/06/23 07:09 Pulse 83 05/06/23 07:09 Resp 16 05/06/23 07:09 BP 158/84 H 05/06/23 07:09 Pulse Ox 97 05/06/23 07:09 O2 Del Method Room Air 05/06/23 07:09 BMI result Body Mass Index 22.7 Const: Other: Constitutional : Awake, interactive , not in distress Neck : Normal insp ection, Supple Car diovascular : RRR, no JVP, no lower extremity edema Re spiratory : good b ilateral air entry , no crackles, wh eezes or rhonchi G astrointestinal: soft, lax, Normal bowel sounds, Non tender Skin : Warm , Dry Skeletal: le ft knee wound maria ines n with no surround ing erythema or dr faisal, decreased but fair range of motion Neurologic al : Alert & orien isis x3, No focal d eficit Objective Data Labs 05/05/23 05:58 05/04/23 05:20 Labs: Laboratory Results - last 24 hr 05/05/23 17:11 Random Vancomycin 15.7 Microbiology Microbiology Results: Microbiology 05/03/23 21:42 Blood - Venous Blood Culture - Preliminary No growth after 48 hours. 05/03/23 21:12 Blood - Venous Blood Culture - Preliminary No growth after 48 hours. Procedures Date of Service Date of Service: 05/06/23 Assessment & Plan Assessment and plan (1) ESRD (end stage renal disease): Status: Acute Plan Elderly woman with ESRD on maintenance hemodialysis. Admitted with knee pain. From renal standpoint she is doing very well without any signs or symptoms of uremia. Fluid status is acceptable. Plan: - next HD on Monday - EPO dosed 05/05/23 - renal panel on dialysis days. Time Spent With Patient Time: Total time managing care of this patient today ____ minutes. Progress Note: Quality Stroke Does the patient have a stroke diagnosis?: No
[2023-05-06] MEDS: Furosemide 40 MG TABLET PO (11:59)
--- NOTE | 2023-05-06 12:05 | P.DS_ITS ---
DS: Providers Provider Date of Service: 05/06/23 Date of admission: 05/03/23 21:03 Primary care physician: Ayah Villalta MD Consults: 05/03/23 21:17 Consult to Orthopedics Routine Consulting Provider: [facility] [place] Orth[facility] Surgeons Reason for consultation: knee infection 05/03/23 22:20 Consult to Nephrology Routine Consulting Provider: Julio Mclain Reason for consultation: ESRD DS: Diagnosis Discharge Diagnosis (1) ESRD (end stage renal disease): Status: Acute (2) Fever: Status: Acute (3) Leukocytosis: Status: Acute (4) Acute pain of left knee: Status: Acute DS: Summary Hospital Course Hospital Course: Admission note HPI this is a 73-year-old female with pertinent history of AFib on Eliquis, ESRD on hemodialysis, CAD status post CABG, interstitial lung disease, congestive heart failure with reduced ejection fraction, 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 Patient was recently admitted for left femur fracture and underwent left femur IMN on 04/22/[address] Tirpp. Patient states she was undergoing rehab and went for dialysis today where she was found to be febrile. Blood work revealed leukocytosis. [facility] Orthopedics consulted due to left knee pain, swelling and erythema who recommended transfer. Dr. Tripp was consulted who accepted transfer possible surgical site infection. Hospital course # Fever with question for surgical site infection at time of admission. XR of the knee showed improvement in alignment with mild edema at the surgical wound site. Treated with Empirical antibiotics, renally dosed as blood cultures came back negative. Orthopedic surgery evaluated the patient and did not think it is a surgical wound infection. she was able to participate with physical therapy who recommended rehab. To continue Keflex for 1 week on discharge. # Left knee pain Post surgical, expected per orthopedic team who evaluated her during hospital stay. Started on Oxycontin and Tylenol ATC with better control. To continue also with Oxycodone PRN. # ESRD on hemodialysis. Nephrology following, had dialysis inpatient, to continue as scheduled. Continue Cephalexin as prescribed Oxycontin for short term to help control the pain and tolerate physical therapy Tylenol around the clock Continue physical therapy Time Spent with Patient Time attestation: Total time managing care of this patient today ____ minutes. Discharge coordination time: Greater than 30 minutes Quality: Safe Use of Opioids Does Pt have an Active Cancer Diagnosis on the Problem List?: No Quality: Stroke Does the patient have a stroke diagnosis?: No Physical Exam Vital Signs: Vital Signs: Last Vital Signs Temp 97.9 F 05/06/23 07:09 Pulse 83 05/06/23 07:09 Resp 16 05/06/23 07:09 BP 158/84 H 05/06/23 07:09 Pulse Ox 97 05/06/23 07:09 O2 Del Method Room Air 05/06/23 07:09 BMI result Body Mass Index 22.7 Const: Other: Constitutional : Awake, interactive , not in distress Neck : Normal insp ection, Supple Car diovascular : RRR, no JVP, no lower extremity edema Re spiratory : good b ilateral air entry , no crackles, wh eezes or rhonchi G astrointestinal: soft, lax, Normal bowel sounds, Non tender Skin : Warm , Dry Skeletal: le ft knee wound maria ines n with no surround ing erythema or dr faisal, mild post surgical swelling, decreased but gabbie r range of motion Neurological : Al ert & oriented x3, No focal deficit DS: Data Data Completed and Pending Completed studies during hospitalization [Text1]: Procedures Performance of Urinary Filtration, Intermittent, Less than 6 Hours Per Day (04/20/23) Transfusion of Nonautologous Red Blood Cells into Peripheral Vein, Percutaneous Approach (04/20/23) Labs on day of discharge: Laboratory Results - last 24 hr 05/05/23 17:11 Random Vancomycin 15.7 Preliminary micro results at discharge 05/03/23 21:42 Blood Culture - Preliminary Blood - Venous No growth after 48 hours. 05/03/23 21:12 Blood Culture - Preliminary Blood - Venous No growth after 48 hours. Imaging Chest x-ray: Radiologist's impression: ITS Impressions Venous Duplex 05/03/23 20:54 IMPRESSION: No DVT demonstrated in the left lower extremity with the caveat of nonvisualization of the peroneal veins. If the patient's symptoms persist, followup ultrasound in 5 days 7 days might be of value to exclude proximal propagation from a non-visualized calf vein. Knee X-Ray 05/03/23 23:30 IMPRESSION: Interval placement of intramedullary nail and distal femoral screws with overall improved alignment across the comminuted fracture of the distal femur. Chest X-Ray 05/04/23 13:49 IMPRESSION: No acute abnormality of chest. Discharge Plan Discharge Anticipated Discharge Date/Time: 05/06/23 11:56 Patient Disposition: Xfer SNF Discharge Diagnosis: Fever Left knee pain Referrals: [facility] [Outside] Ayah Villalta MD [Primary Care Provider] - 1 Week Discharge Medications: New cephalexin 500 mg Capsule 500 mg PO DAILY Qty: 7 0RF oxycodone [OxyContin] 10 mg Tablet,Oral Only,Ext.Rel.12 Hr 10 mg PO BID Qty: 14 0RF Rx Instructions: Partial Fill upon patient request. acetaminophen 325 mg Tablet 650 mg PO TID Qty: 42 0RF Continued furosemide [Lasix] 40 mg tablet 40 mg PO TUTHSA Eliquis 2.5 mg tablet 2.5 mg PO BID Qty: 60 5RF gabapentin 300 mg capsule 300 mg PO DAILY aspirin 81 mg Tablet,Chewable 81 mg PO DAILY fluoxetine 20 mg capsule 20 mg PO DAILY sevelamer carbonate 800 mg tablet 800 mg PO TIDWM nitroglycerin 0.4 mg/hr patch 24 hour 0.4 mg transdermal DAILY@0400 Protocol: Hold for SBP< HOLD for SBP < : 90 Rx Instructions: PUTS ON AT 0400 AND TAKES OFF AT 1600 acetaminophen 325 mg Tablet 975 mg PO TID trazodone 50 mg Tablet 50 mg PO BEDTIME docusate sodium 100 mg Tablet 100 mg PO BID atorvastatin 80 mg Tablet 80 mg PO DAILY carvedilol 6.25 mg Tablet 6.25 mg PO BID Rx Instructions: must administer with a meal/food pantoprazole 40 mg Tablet,Delayed Release (Dr/Ec) 40 mg PO DAILY oxycodone 5 mg Tablet 2.5 mg PO BID oxycodone 5 mg tablet 5 mg PO Q4H PRN (Reason: Pain) Rx Instructions: Partial Fill upon patient request. Discharge Orders: Discharge Order (Routine); Ordered 05/06/23 Ordered By: Baltazar Guzman Diet: Advance to usual diet Activity on Discharge: As tolerated Stand Alone Forms: Patient Portal Discharge page Care Plan Goals: Read below Health Concerns: Read below Plan of Treatment: Read below Assessment: No clear source of infection identified. blood cultures remained negative. seen by Orthopedic team. Continue Cephalexin as prescribed Oxycontin for short term to help control the pain and tolerate physical therapy Tylenol around the clock Continue physical therapy Discharge Date/Time: 05/06/23 13:04
--- NOTE | 2023-05-06 13:20 | MHC.CM.PN ---
CM MET WITH PT TO DISCUSS DC SHE IS AWARE SHE HAS BEEN CLEARED TO RETURN TO [facility] TODAY SHE REPORTS FRUSTRATION THAT SHE FEELS LIKE [place] AND EVERY TIME SHE SPEAKS TO HER FAMILY SHE IS IN A DIFFERENT PLACE PT DOES REPORT UNDERSTANDING THAT SHE NEEDS TO GO TO REHAB, SHE SAYS SHE JUST CANNOT WAIT TO BE BETTER AND GO HOME PT DID REQUEST TO SEE ARTUR GORMAN, HOWEVER SHE WAS INFORMED HE WAS NOT IN TODAY AND SHE WILL FOLLOW UP SCHEDULED MAINTENANCE SPECIALIST PT WILL DC TO [facility] AT TODAY [facility] AT 1230 HOURS
--- NOTE | 2023-05-12 16:27 | MHC.HEMONC ---
Referral sent to [facility]geons per plan before pt was admitted for femur fracture.
== END 2023-05-06 13:04 | disposition skilled nursing facility (03) | DRG 947 ==
LOC: HO.ED 21:07 → HO.EDOVER 23:36 → HO.S3 05-04 16:18
PROVIDERS: Physician Assistant; Admitting Provider Student in an Organized Health Care Education/Training Program; Emergency Provider Emergency Medicine Emergency Medical Services; PCP Family Medicine; Visit Provider Student in an Organized Health Care Education/Training Program
DX: G89.18 Other acute postprocedural pain (principal); N18.6 End stage renal disease; C34.32 Malignant neoplasm of lower lobe, left bronchus or lung; I13.2 Hypertensive heart and chronic kidney disease with heart failure and with stage 5 chronic kidney disease, or end stage renal disease; I50.22 Chronic systolic (congestive) heart failure; F32.A Depression, unspecified; D63.1 Anemia in chronic kidney disease; I25.10 Atherosclerotic heart disease of native coronary artery without angina pectoris; F17.210 Nicotine dependence, cigarettes, uncomplicated; R50.9 Fever, unspecified; D72.829 Elevated white blood cell count, unspecified; Z71.6 Tobacco abuse counseling; I48.0 Paroxysmal atrial fibrillation; Z95.1 Presence of aortocoronary bypass graft; Z99.2 Dependence on renal dialysis; Z79.01 Long term (current) use of anticoagulants; Z79.82 Long term (current) use of aspirin; Z79.899 Other long term (current) drug therapy
CPT/HCPCS: 36415; 71045; 73560; 80048; 80053; 80202; 83605; 85025; 85027; 85652; 86140; 87040; 90999; 93971; 97162; 99285; J0885; J2270; J2543

== ENCOUNTER → 2023-05-03 20:31 | Outpatient (BNV) | payer MEDICARE, MEDICAID, SELFPAY | PROVIDERS: Emergency Provider Emergency Medicine Emergency Medical Services; PCP Family Medicine; Visit Provider Student in an Organized Health Care Education/Training Program | DX: R50.9 Fever, unspecified (principal); S72.302A Unspecified fracture of shaft of left femur, initial encounter for closed fracture | CPT/HCPCS: 99222; 99233; 99239 ==

== ENCOUNTER → 2023-05-03 21:03 | Outpatient (BNV) | payer MEDICARE, MEDICAID, SELFPAY | PROVIDERS: Admitting Provider Student in an Organized Health Care Education/Training Program; Emergency Provider Emergency Medicine Emergency Medical Services; PCP Family Medicine; Visit Provider Physician Assistant | DX: S72.392A Other fracture of shaft of left femur, initial encounter for closed fracture (principal) | CPT/HCPCS: 99024 ==

== ENCOUNTER 2023-05-31 12:30 | Outpatient (RCR) | payer MEDICARE, MEDICAID, SELFPAY ==
[2023-03-15 14:42] VITALS: BP 129/60; PULSE 73; RESP 15; TEMP 36.6; O2SAT 97; BMI 20.9
--- NOTE | 2023-03-15 14:53 | P.CNHO_ITS ---
Subjective - Subjective Chief complaint: Lung mass Patient: new to practice Consult date: 03/15/23 Primary Care Provider: Ayah Villalta MD Medical Summary: Diagnosis: Probable left lung cancer HPI - Consult Narrative Reason for consult: Probable lung cancer Narrative: Maryam Ramos is a 73 year old woman with past medical history significant for chronic end-stage renal disease, on hemodialysis, coronary artery disease, status post CABG, CHF and paroxysmal atrial fibrillation was diagnosed with left lower lobe lung mass in March 2023. She had a previous CT chest in September at [facility], she was told of a lung mass at that time as well but no biopsy was arranged. She is a chronic smoker, she did quite for over 30 years but resumed smoking in the last few years. She has no complaints such as new onset chest pain, cough or shortness of breath. She was recently admitted for extreme fatigue after dialysis, workup revealed lung mass. She denies loss of appetite or weight loss. No headache or dizziness. No change in bowel habits. Review of Systems - Constitutional Reports as per HPI, Denies headache(s), Denies lack of energy, Reports malaise, Denies poor appetite, Denies weight loss - Cardiovascular Reports no additional cardiovascular complaints - Respiratory Reports no additional respiratory complaints - Gastrointestinal Reports no additional gastrointestinal complaints Oncology Screenings - ECOG Performance Status ECOG Performance Status: 1 [facility] Medical History: Medical History (Last Reviewed 03/15/23 @ 14:43 by Marlena Guillen) Anemia Anemia Aortic stenosis Asthmatic bronchitis Atherosclerotic cardiovascular disease CAD (coronary artery disease) CKD (chronic kidney disease), stage IV Depression DVT (deep venous thrombosis) End stage chronic kidney disease ESRD (end stage renal disease) GERD (gastroesophageal reflux disease) History of ectopic Hypertension Interstitial lung disease PAF (paroxysmal atrial fibrillation) Family History: Family History (Last Reviewed 03/10/23 @ 18:29 by Nilo Brown DO) Father No problems noted. Mother No problems noted. Surgical History: Surgical History (Last Reviewed 03/15/23 @ 14:43 by Marlena Guillen) H/O colonoscopy History of carpal tunnel release of both wrists History of left knee replacement History of rectal surgery Status post total replacement of right shoulder Social History: Social History (Last Updated 03/15/23 @ 14:44 by Marlena Guillen) Living Situation History: Household Members: Spouse Household Members: Children Housing: House Do you presently have visiting nurse or other home services: Yes Alcohol History Details: 1. How often do you have a drink containing alcohol?: a. Never Tobacco History: Patient Tobacco Use Status: Current everyday Tobacco Tobacco use type: Cigarette Cigarettes Per Day: 3 Second Hand Smoke Exposure: No Substance Use History: Use of substances other than those prescribed or required for medical reasons : No Advance Directives: Advance Directives Date on File: 03/10/23 Homicidal Assessment: Do you have thoughts of harming others: None Do you have a plan to hurt others: No Plan Do you have the means to hurt others: No Nutrition Assessment: Recently lost weight without trying: No Occupation Assessmet: service: No Current occupational status: retired Current occupation: young,right handed Home Medications and Allergies Home Medications Medication Instructions Recorded Confirmed Type amlodipine 10 mg tablet 10 mg PO DAILY@1400 08/10/20 03/15/23 History acetaminophen 500 mg tablet 500 mg PO Q6H PRN Pain 10/30/22 03/15/23 History clonidine 0.2 mg/24 hr weekly 1 patch topical SA 10/30/22 03/15/23 History transdermal patch trazodone 100 mg tablet 1 tab PO BEDTIME 10/30/22 03/15/23 History gabapentin 300 mg capsule 300 mg PO DAILY 11/09/22 03/15/23 History apixaban 2.5 mg tablet (Eliquis) 2.5 mg PO BID 03/07/23 03/15/23 History furosemide 40 mg tablet (Lasix) 40 mg PO TUTHSA 03/07/23 03/15/23 History lisinopril 20 mg tablet 20 mg PO BID 03/07/23 03/15/23 History aspirin 81 mg chewable tablet 81 mg PO DAILY 03/10/23 03/15/23 History fluoxetine 20 mg capsule 20 mg PO DAILY 03/15/23 03/15/23 History Allergies Allergy/AdvReac Type Severity Reaction Status Date / Time atenolol [ATENOLOL] Allergy Severe DIFF Verified 03/15/23 14:47 BREATHING, heart races. doxycycline Allergy Severe Anaphylaxis Verified 03/15/23 14:47 duloxetine Allergy Severe Anaphylaxis Verified 03/15/23 14:47 amphetamine [Adderall] AdvReac Severe shortness Verified 03/15/23 14:47 of breath dextroamphetamine [Adderall] AdvReac Severe shortness Verified 03/15/23 14:47 of breath Physical Exam Vital signs: Vital Signs Temp 97.8 F 03/15/23 14:42 Pulse 73 03/15/23 14:42 Resp 15 03/15/23 14:42 BP 129/60 03/15/23 14:42 Pulse Ox 97 03/15/23 14:42 O2 Del Method Room Air 03/15/23 14:42 Intake & Output 03/14/23 03/15/23 03/15/23 18:59 06:59 18:59 Other: Weight 53.617 kg [place] Weight in Grams 87766.716 Weight 53.617 kg - Constitutional Present: no acute distress, average body habitus - Routine HEENT Exam Head: Present: normal inspection Eye: Present: PERRL - Routine Neck Exam Present: supple. Absent: lymphadenopathy - Routine Respiratory Exam Absent: accessory muscle use - Routine Cardiovascular Exam Cardiovascular: Present: S1, S2 - Routine Abdominal Exam Present: normal bowel sounds - Routine Extremities Exam Absent: pedal edema Hem/Onc Consult Result - Labs Labs: Laboratory Tests 03/12/23 05:38 WBC 6.9 RBC 3.36 L Hgb 10.6 L Hct 32.9 L Plt Count 169 Assessment and Plan Patient Active problem list reviewed?: Yes (1) Lung mass Status: Acute Assessment and plan: 1. This is a pleasant 73-year-old woman, chronic smoker presenting with left lower lobe lung mass measuring 2.[address] chest without contrast revealed several bilateral small pulmonary nodules but no bulky lymphadenopathy. I have recommended further evaluation with CT-guided biopsy of lung mass and PET-CT. This is being arranged as soon as possible. She was advised to stop taking aspirin. She was advised to stop Eliquis 3 days before procedure. She was advised to stop smoking. She will be presented at lung conference this Monday. Further recommendations to follow. Follow-up in 2 weeks. - Time Spent With Patient Time Spent with Patient (in minutes): 45
--- NOTE | 2023-03-15 15:20 | MHC.HEMONCMA ---
Patient seen today for new consult for lung ca, VSS, followup TBD
--- NOTE | 2023-03-15 15:42 | MHC.HEMONC ---
I met with patient during her Oncology Consultation with Dr Sultana for new lung mass. She has h/o heart surgery, DVT and is on HD. She will need a CT guided bx of mass and Dr Sultana has ordered that. Pt will stop low dose Aspirin today per Dr Sultana and we will advise further regarding Eliquis once we know when bx will be done. F/U here in a couple of weeks.
--- NOTE | 2023-03-16 08:17 | HO.HEMONCPA ---
NO PA NEEDED FOR CT BIOPSY LUNG LT COVERED BY MEDIC[employer] BENEFITS
--- NOTE | 2023-03-28 11:23 | MHC.HEMONCMA ---
spoke with patient and gave new date and time for bx left lung on 04/06/23 at 11:50am, stop eliquis 3 days prior, aspirin 5 days prior, patient understands and in agreement.
--- NOTE | 2023-03-31 15:18 | MHC.HEMONC ---
I called pt as she canceled her appt today due to not feeling well after dialysis. I rescheduled it for end of month after bx is done. She did say she would go and was aware she must hold blood thinner as instructed prior to bx.
--- NOTE | 2023-04-07 16:22 | HO.HEMONCPA ---
NO PA NEEDED FOR PET/CT SKULL TO THIGH [id number] SENT TO [facility] FOR SCHEDULING
--- NOTE | 2023-04-10 08:34 | HO.HEMONCSCH ---
Addendum entered by Keyonna Goodman 04/13/23 10:01: PATIENT BOOKED WITH [facility] ON 04/18/23 AT 1:15 PM (GIVEN TO SANTOSH) Original Note: LEFT MESSAGE WITH [facility] TO SEE IF POSSIBLE TO BOOK PATIENT FOR THIS WEEK AWAITING DECISION
--- NOTE | 2023-04-11 10:32 | P.PNHO-ONC_ITS ---
Medical Summary - Medical Summary Date of Service: 04/11/23 Chief complaint: Follow-up Primary Care Provider: Ayah Villalta MD Medical Summary: Diagnosis: Left lung Adenocarcinoma 03/2023 Past medical history significant for chronic end-stage renal disease, on hemodialysis, coronary artery disease, status post CABG, CHF and paroxysmal atrial fibrillation was diagnosed with left lower lobe lung mass in March 2023. She had a previous CT chest in September at [facility], she was told of a lung mass at that time. She is a chronic smoker, she did quit for over 30 years but resumed smoking in the last few years. She has no complaints such as new onset chest pain, cough or shortness of breath. She was recently admitted for extreme fatigue after dialysis, workup revealed lung mass. She denies loss of appetite or weight loss. No headache or dizziness. No change in bowel habits. Interval History Interval history: Ms Ramos is here in follow-up to discuss results of biopsy. She has no new complaints today. Review of Systems - Constitutional Reports as per HPI, Denies lack of energy, Denies malaise, Denies weakness - Cardiovascular Reports no additional cardiovascular complaints - Respiratory Reports no additional respiratory complaints - Gastrointestinal Reports no additional gastrointestinal complaints - Neurologic Denies headache(s) PMFSH Medical History: Medical History (Last Reviewed 04/11/23 @ 10:38 by Marlena Guillen) Anemia Aortic stenosis Asthmatic bronchitis Atherosclerotic cardiovascular disease CAD (coronary artery disease) CKD (chronic kidney disease), stage IV Depression ESRD (end stage renal disease) GERD (gastroesophageal reflux disease) History of DVT (deep vein thrombosis) History of ectopic History of non-ST elevation myocardial infarction (NSTEMI) Onset Date: ~12/2020 Hypertension Interstitial lung disease Osteopenia PAF (paroxysmal atrial fibrillation) Onset Date: ~12/2020 Family History: Family History (Last Reviewed 04/11/23 @ 10:39 by Marlena Guillen) Father No problems noted. Mother Myocardial infarction Surgical History: Surgical History (Last Reviewed 04/11/23 @ 10:38 by Marlena Guillen) History of carpal tunnel release of both wrists History of colonoscopy History of coronary artery bypass graft x 3 History of left knee replacement History of rectopexy History of total replacement of right shoulder joint S/P arteriovenous (AV) fistula creation Social History: Social History (Last Reviewed 04/11/23 @ 10:39 by Marlena Guillen) Living Situation History: Household Members: Spouse Household Members: Children Housing: House Do you presently have visiting nurse or other home services: Yes Alcohol History Details: 1. How often do you have a drink containing alcohol?: a. Never Tobacco History: Patient Tobacco Use Status: Current everyday Tobacco Tobacco use type: Cigarette Second Hand Smoke Exposure: No Substance Use History: Use of substances other than those prescribed or required for medical reasons : No Advance Directives: Advance Directives Date on File: 03/10/23 Homicidal Assessment: Do you have thoughts of harming others: None Do you have a plan to hurt others: No Plan Do you have the means to hurt others: No Nutrition Assessment: Recently lost weight without trying: No Occupation Assessmet: service: No Current occupational status: retired Current occupation: young,right handed Home Medications and Allergies Home Medications Medication Instructions Recorded Confirmed Type amlodipine 10 mg tablet 10 mg PO DAILY@1400 08/10/20 04/11/23 History acetaminophen 500 mg tablet 500 mg PO Q6H PRN Pain 10/30/22 04/11/23 History clonidine 0.2 mg/24 hr weekly 1 patch topical SA 10/30/22 04/11/23 History transdermal patch trazodone 100 mg tablet 1 tab PO BEDTIME 10/30/22 04/11/23 History gabapentin 300 mg capsule 300 mg PO DAILY 11/09/22 04/11/23 History furosemide 40 mg tablet (Lasix) 40 mg PO TUTHSA 03/07/23 04/11/23 History lisinopril 20 mg tablet 20 mg PO BID 03/07/23 04/11/23 History aspirin 81 mg chewable tablet 81 mg PO DAILY 03/10/23 04/11/23 History fluoxetine 20 mg capsule 20 mg PO DAILY 03/15/23 04/11/23 History Allergies Allergy/AdvReac Type Severity Reaction Status Date / Time atenolol [ATENOLOL] Allergy Severe DIFF Verified 04/06/23 09:59 BREATHING, heart races. doxycycline Allergy Severe Anaphylaxis Verified 04/06/23 09:59 duloxetine Allergy Severe Anaphylaxis Verified 04/06/23 09:59 amphetamine [Adderall] AdvReac Severe shortness Verified 04/06/23 09:59 of breath dextroamphetamine [Adderall] AdvReac Severe shortness Verified 04/06/23 09:59 of breath Exam Vital signs: Vital Signs Temp 97.8 F 03/15/23 14:42 Pulse 73 03/15/23 14:42 Resp 15 03/15/23 14:42 BP 129/60 03/15/23 14:42 Pulse Ox 97 03/15/23 14:42 O2 Del Method Room Air 03/15/23 14:42 Weight 53.617 kg BMI result Body Mass Index 20.9 - Constitutional Present: no acute distress, average body habitus - Routine HEENT Exam Head: Present: normal inspection - Routine Respiratory Exam Absent: accessory muscle use - Routine Cardiovascular Exam Cardiovascular: Present: S1, S2 - Routine Abdominal Exam Present: normal bowel sounds - Routine Extremities Exam Absent: pedal edema Assessment and Plan Patient Active problem list reviewed?: Yes (1) Lung mass Problem details: (LLL mass with irregular margins measures 2.9 x 4.0cm - 03/10/[address]) Status: Acute Assessment and plan: 1. This is a pleasant 73-year-old woman, chronic smoker presenting with left lower lobe lung mass measuring 2.[address] chest without contrast revealed several bilateral small pulmonary nodules but no bulky lymphadenopathy. She had a CT-guided biopsy of left lower lobe lung mass which revealed moderately differentiated adenocarcinoma, favor lung primary. IHC negative for TTF1, positive for CK7 and napsin. Molecular tests are pending. Patient was given the results of biopsy. She missed several phone calls for PET scan, this has been scheduled for the following Monday as that is only day that she is able to go for appointments. She goes for hemodialysis Monday, Monday and Fridays. I discussed with her staging and molecular tests which would guide her treatment. Further recommendations to follow. Follow-up in 2 weeks. - Time Spent With Patient Time Spent with Patient (in minutes): 20
[2023-04-11 10:34] VITALS: BP 107/59; PULSE 58; RESP 15; TEMP 36.4; O2SAT 99; BMI 20.5
--- NOTE | 2023-04-11 11:06 | MHC.HEMONCMA ---
Patient seen today for follow up after bx, VSS, petscan booked for 04/18/23 at 1:15 gave info to patient, 6 hr fasting only water, followup on 04/25/23 10:20am.
--- NOTE | 2023-04-28 10:13 | MHC.HEMONC ---
Referral sent through [facility] for pt to have Consult with Thoracic Surgeon. Will consult with Dr Sultana regarding f/u here.
--- NOTE | 2023-05-04 13:05 | MHC.HEMONC ---
Triage- Pt called. She would like to know the results of the PET scan. Msg sent to Dr Sultana.
--- NOTE | 2023-05-25 15:23 | HO.HEMONCSCH ---
Patient was referred to [facility] Thoracic surgery for Lung Mass she is scheduled with Dr. Lalito Baker on Tuesday, May 30, 2023 at 11:00 a.m.
--- NOTE | 2023-05-31 12:21 | P.PNHO-ONC_ITS ---
Hem/Onc Clinic Telehealth - Telehealth Location of Provider rendering services: Office Location of Patient: [facility] Patient Identification confirmed using: Name, : Yes Telehealth Method: Telephone Patient verbally consented to treatment: Yes Patient verbally consented to billing insurance company: Yes Patient informed of any privacy concerns related to visit: Yes Primary Care Provider: Ayah Villalta MD Medical Summary - Medical Summary Date of Service: 05/31/23 Chief complaint: Lung cancer Primary Care Provider: Ayah Villalta MD Medical Summary: Diagnosis: Left lung Adenocarcinoma 03/2023 Past medical history significant for chronic end-stage renal disease, on hemodialysis, coronary artery disease, status post CABG, CHF and paroxysmal atrial fibrillation was diagnosed with left lower lobe lung mass in March 2023. She had a previous CT chest in September at [facility], she was told of a lung mass at that time. She is a chronic smoker, she did quit for over 30 years but resumed smoking in the last few years. She has no complaints such as new onset chest pain, cough or shortness of breath. She was recently admitted for extreme fatigue after dialysis, workup revealed lung mass. She denies loss of appetite or weight loss. No headache or dizziness. No change in bowel habits. Interval History Interval history: Tele health was arranged with patient's daughter Christy Francisco while she is an inpatient at [facility]. Patient was recently admitted to [facility] for femur fracture after a fall, she underwent surgery. Subsequent to that she was admitted to [facility] because of persistent pain in her leg and inability to walk. She was transferred to senior living but because of fever and persistent pain in her leg she was admitted at [facility] way she is now. She was diagnosed with the 2nd fracture in the same leg involving her knee. She did not require another surgery but she is going to require intense rehabilitation. The daughter and patient wanted to know results of PET scan and further management. They had an appointment last week with CT surgeon but could not keep that appointment. Review of Systems - Neurologic Denies headache(s), Denies weakness Home Medications and Allergies Home Medications Medication Instructions Recorded Confirmed Type gabapentin 300 mg capsule 300 mg PO DAILY 11/09/22 05/03/23 History furosemide 40 mg tablet (Lasix) 40 mg PO TUTHSA 03/07/23 05/03/23 History aspirin 81 mg chewable tablet 81 mg PO DAILY 03/10/23 05/03/23 History fluoxetine 20 mg capsule 20 mg PO DAILY 03/15/23 05/03/23 History nitroglycerin 0.4 mg/hr 0.4 mg transdermal DAILY@0400 04/20/23 05/03/23 History transdermal 24 hour patch sevelamer carbonate 800 mg tablet 800 mg PO TIDWM 04/20/23 05/03/23 History acetaminophen 325 mg tablet 975 mg PO TID 05/03/23 05/03/23 History atorvastatin 80 mg tablet 80 mg PO DAILY 05/03/23 05/03/23 History carvedilol 6.25 mg tablet 6.25 mg PO BID 05/03/23 05/03/23 History docusate sodium 100 mg tablet 100 mg PO BID 05/03/23 05/03/23 History oxycodone 5 mg tablet 2.5 mg PO BID 05/03/23 05/03/23 History oxycodone 5 mg tablet 5 mg PO Q4H PRN Pain 05/03/23 05/03/23 History pantoprazole 40 mg tablet,delayed 40 mg PO DAILY 05/03/23 05/03/23 History release trazodone 50 mg tablet 50 mg PO BEDTIME 05/03/23 05/03/23 History Allergies Allergy/AdvReac Type Severity Reaction Status Date / Time atenolol [ATENOLOL] Allergy Severe DIFF Verified 04/06/23 09:59 BREATHING, heart races. doxycycline Allergy Severe Anaphylaxis Verified 04/06/23 09:59 duloxetine Allergy Severe Anaphylaxis Verified 04/06/23 09:59 amphetamine [Adderall] AdvReac Severe shortness Verified 04/06/23 09:59 of breath dextroamphetamine [Adderall] AdvReac Severe shortness Verified 04/06/23 09:59 of breath Exam Vital signs: Vital Signs Temp 97.6 F 04/11/23 10:34 Pulse 58 04/11/23 10:34 Resp 15 04/11/23 10:34 BP 107/59 L 04/11/23 10:34 Pulse Ox 99 04/11/23 10:34 O2 Del Method Room Air 04/11/23 10:34 Weight 52.4 kg BMI result Body Mass Index 20.5 - Constitutional Present: no acute distress, average body habitus - Routine HEENT Exam Head: Present: normal inspection - Routine Respiratory Exam Absent: accessory muscle use - Routine Cardiovascular Exam Cardiovascular: Present: S1, S2 - Routine Abdominal Exam Present: normal bowel sounds - Routine Extremities Exam Absent: pedal edema Assessment and Plan Patient Active problem list reviewed?: Yes (1) Lung mass Problem details: (LLL mass with irregular margins measures 2.9 x 4.0cm - 03/10/[address]) Status: Acute Assessment and plan: 1. This is a pleasant 73-year-old woman, chronic smoker presenting with left lower lobe lung mass measuring 2.[address] chest without contrast revealed several bilateral small pulmonary nodules but no bulky lymphadenopathy. Clinical stage IB She had a CT-guided biopsy of left lower lobe lung mass which revealed mod erately differentiated adenocarcinoma, favor lung primary. IHC negative for TTF1, positive for CK7 and napsin. NGS testing revealed negative for PDL1 expression, TPS/CPS less than 1%. Insufficient tissue for additional tests. PET-CT performed 04/18/2023 showed left lower lobe lung mass. 3.8cm with SUV 17 consistent with malignancy. Multifocal 5 mm or smaller bilateral lung nodules do not show activity. Small focus of FDG avidity in the region of cecum without CT correlate, colonoscopy/direct visualization recommended. Solitary focus of FDG avidity in the left aorta pulmonary window may represent small FDG avid lymph node versus artifact arising from adjacent surgical clips. For she was referred to CT surgeon for surgical staging and recommendations about surgery. Unfortunately, she fell and has had a series of hospitalizations at different institutions, she is currently at [facility]. I spoke to both patient and daughter about PET scan. She is a poor surgical candidate and also not a good candidate for systemic therapy. Besides surgery upfront possibility of radiation therapy was also discussed. She will be referred again to surgical oncologist. Follow-up in 2 weeks. - Time Spent With Patient Time Spent with Patient (in minutes): 15
== END 2023-08-09 | disposition home or self-care (01) ==
LOC: HO.ONC 12:30
PROVIDERS: PCP Family Medicine; Visit Provider Internal Medicine
DX: C34.32 Malignant neoplasm of lower lobe, left bronchus or lung (principal); N18.6 End stage renal disease; I48.0 Paroxysmal atrial fibrillation; I50.9 Heart failure, unspecified; F17.210 Nicotine dependence, cigarettes, uncomplicated; Z99.2 Dependence on renal dialysis
CPT/HCPCS: 99202; 99213

== ENCOUNTER 2023-06-01 08:26 | Outpatient (REF) | payer MEDICARE, MEDICAID, SELFPAY | END 2023-06-01 08:27 | disposition home or self-care (01) | LOC: HO.HOSX 08:26 | PROVIDERS: Visit Provider Physician Assistant | DX: Z13.89 Encounter for screening for other disorder (principal) ==

== ENCOUNTER 2023-06-08 09:41 | Inpatient (IN) | payer MEDICARE, MEDICAID, SELFPAY ==
--- NOTE | ~2023-06-08 | CT_ITS ---
EXAMINATION: CT ANGIOGRAM OF THE CHEST WITH AND WITHOUT CONTRAST (CT PULMONARY ANGIOGRAM FOR PE) CLINICAL INFORMATION: Reason for Exam sob, pleuritic cp COMPARISON: None available. TECHNIQUE: Prior to contrast administration, noncontrast localization images were obtained. Subsequently, multidetector volumetric imaging was performed from the thoracic inlet to below the diaphragms following the administration of 80 mL Omnipaque 350 intravenous contrast. No contrast reaction reported Sagittal, coronal, and MIP oblique sagittal reformatted images were obtained on the CT workstation, uploaded to PACS, and reviewed. This CT examination was performed using dose optimization techniques as appropriate, variously including the following: *Automated exposure control *Adjustment of mA and/or kV according to patient size (this includes techniques or standardized protocols for targeted exams where dose is matched to indication/reason for exam; i.e. extremities or head) *Use of iterative reconstruction technique Total exam dose-length product 281 mGy-cm FINDINGS: QUALITY OF STUDY/CONTRAST BOLUS: Satisfactory. PULMONARY ARTERIES: There is good opacification of pulmonary artery and its branches without intraluminal filling the defect or narrowing. THORACIC AORTA: There is no evidence of thoracic aortic aneurysm or dissection. LUNG: There is a left lower lobe consolidation with underlying small to moderate pleural effusion. Right basilar compressive atelectasis seen. The lungs are hyperexpanded no obvious mass or pulmonary nodules seen. PLEURA: Small to moderate left pleural effusion is noted. Fluid extends into the major fissure superiorly. Small right pleural effusion noted. MEDIASTINUM: Heart size is normal. There is moderate coronary artery calcifications. No no pericardial effusion seen. Small hiatal hernia is noted. Solitary 8 mm right pretracheal lymph node is seen. No other lymph nodes visualized. There are mediastinal samantha from previous CABG No evidence of septal bowing or right heart strain. CORONARY ARTERY CALCIFICATION: Moderate to significant coronary artery calcifications are present CHEST WALL/AXILLA: There are reactive bilateral axillary lymph nodes seen. There is mild chest wall edema. OSSEOUS STRUCTURES: No aggressive lytic or sclerotic process seen. There is mild ventral spondylosis throughout mid dorsal spine. UPPER ABDOMEN: Visualized liver, spleen, pancreas and bilateral adrenal glands are unremarkable. No reflux of contrast into the hepatic veins to suggest elevated right heart pressures. CT/CT angio chest PE protocol IMPRESSION: Moderate left and small right pleural effusion. There is a left lower lobe consolidation/infiltrate. There is no evidence of PE. No evidence of aortic aneurysm. Evidence of previous CABG. There is mild chest wall edema suspected. Small hiatal hernia. VTE: negative
--- NOTE | ~2023-06-08 | XR_ITS ---
EXAMINATION: XR CHEST CLINICAL INFORMATION: Assess pleural effusion COMPARISON: 06/08/2023 TECHNIQUE: 2 views of the chest were obtained. FINDINGS: Heart size remains enlarged. Central line similar. Multiple leads overlie the chest. Somewhat hypervascular with very proximal edema. Small layering pleural effusions posteriorly. Extensive chronic degeneration the left lateral humeral joint and right shoulder prosthesis again noted. XR/XR chest 2V IMPRESSION: Findings consistent with mild CHF. Small layering pleural effusions.
--- NOTE | ~2023-06-08 | XR_ITS ---
EXAMINATION: XR CHEST CLINICAL INFORMATION: Chest pain COMPARISON: Chest radiograph from 05/04/2020 TECHNIQUE: Frontal view of the chest was obtained. FINDINGS: Left-sided tunneled dialysis catheter terminating in the right atrium. Atrial appendage clip. Sternotomy wires. Radiopacity in the left lung base may reflect atelectasis versus evolving infectious/inflammatory etiology. Interstitial prominence greatest along the left hilar region. Trace left-sided pleural effusion. No pneumothorax. Trachea is midline. Cardiac mediastinal silhouette is stable. Aorta demonstrates atherosclerotic calcifications. Right shoulder arthroplasty. Chronic deformity of the left glenohumeral joint/left proximal humerus. Chronic left-sided rib fractures. Soft tissues are unremarkable. XR/XR chest 1V IMPRESSION: 1. Left-sided tunneled dialysis catheter terminating in the right atrium. 2. Radiopacity in the left lung base may reflect atelectasis versus evolving infectious/inflammatory etiology. 3. Interstitial prominence greatest along the left hilar region. 4. Trace left-sided pleural effusion.
--- NOTE | ~2023-06-08 | XR_ITS ---
EXAMINATION: XR FEMUR, LEFT CLINICAL INFORMATION: Fracture COMPARISON: Previous x-ray most recent 05/03/2023 TECHNIQUE: AP and lateral views of the left femur were obtained. FINDINGS: There is a left 3 component knee replacement. There is an intramedullary charity in the left distal femoral shaft with 1 proximal and 3 distal screws. Orthopedic hardware appears intact. Comminuted fracture of the left distal femoral shaft and supracondylar region is unchanged. Fracture lines still seen. Small joint effusion with fat fluid level. Overlying brace. Osteopenia. Mild degenerative changes of the left hip joint. Mild atherosclerotic disease. XR/XR femur LT 2V IMPRESSION: Left knee replacement. ORIF of left distal femoral fracture.
[2023-06-08 09:46] VITALS: BP 120/74; BP 136/69; PULSE 70; PULSE 74; RESP 13; O2SAT 100; BMI 22.3
--- NOTE | 2023-06-08 09:49 | ED_ITS ---
HPI - General Adult General Chief complaint: Chest Pain Stated complaint: LT SIDED CP SINCE T-1,SOB Time Seen by Provider: 06/08/23 09:44 Source: patient and EMS Mode of arrival: EMS Limitations: no limitations History of Present Illness HPI narrative: This is a 73 year old femal hx of paroxysmal AFib on Eliquis, ESRD on hemodialysis (M/W/F), carotid stenosis, CAD s/p CABG, interstitial lung disease, HTN, HFrEF, and recently diagnosed adenocarcinoma of left lower lung (05/11/2023), recently discharged from our facility on 04/25 s/p femur fracture s/p ORIF on 04/22 presenting to the ED w/ complaints of fatigue, malaise, myalgiasm left sided cp and sob X few days. Patient reports cp and sob are worse w/ dep breathing and better at rest. No recent sick contacts. Denies cough, fevers, chills, nausea, vomiting, headache, vision changes, dizziness. Related Data Home Medications Medication Instructions Recorded Confirmed gabapentin 300 mg capsule 300 mg PO BEDTIME 11/09/22 06/08/23 aspirin 81 mg chewable tablet 81 mg PO DAILY 03/10/23 06/08/23 fluoxetine 20 mg capsule 20 mg PO DAILY 03/15/23 06/08/23 sevelamer carbonate 800 mg tablet 800 mg PO TIDWM 04/20/23 06/08/23 atorvastatin 80 mg tablet 80 mg PO DAILY 05/03/23 06/08/23 carvedilol 6.25 mg tablet 6.25 mg PO BID 05/03/23 06/08/23 docusate sodium 100 mg tablet 100 mg PO DAILY 05/03/23 06/08/23 oxycodone 5 mg tablet 5 mg PO Q4H PRN Pain 05/03/23 06/08/23 pantoprazole 40 mg tablet,delayed 40 mg PO DAILY 05/03/23 06/08/23 release trazodone 50 mg tablet 50 mg PO BEDTIME 05/03/23 06/08/23 acetaminophen 325 mg tablet 650 mg PO Q4H PRN Pain 06/08/23 06/08/23 ascorbic acid (vitamin C) 250 mg 250 mg PO DAILY 06/08/23 06/08/23 tablet cyclobenzaprine 5 mg tablet 5 mg PO TID 06/08/23 06/08/23 ferrous sulfate 325 mg (65 mg 325 mg PO DAILY 06/08/23 06/08/23 iron) tablet,delayed release furosemide 80 mg tablet 80 mg PO TUTHSA@0900 06/08/23 06/08/23 hydralazine 10 mg tablet 10 mg PO TID 06/08/23 06/08/23 lisinopril 20 mg tablet 20 mg PO DAILY 06/08/23 06/08/23 nitroglycerin 0.4 mg sublingual 0.4 mg sublingual Q5M PRN Chest 06/08/23 06/08/23 tablet Pain ondansetron 4 mg disintegrating 4 mg PO Q6H PRN Nausea 06/08/23 06/08/23 tablet paroxetine HCl 30 mg tablet 30 mg PO DAILY 06/08/23 06/08/23 Previous Rx's Medication Instructions Recorded apixaban 2.5 mg tablet (Eliquis) 2.5 mg PO BID #60 tabs 04/05/23 Allergies Allergy/AdvReac Type Severity Reaction Status Date / Time atenolol [ATENOLOL] Allergy Severe DIFF Verified 06/08/23 10:15 BREATHING, heart races. doxycycline Allergy Severe Anaphylaxis Verified 06/08/23 10:15 duloxetine Allergy Severe Anaphylaxis Verified 06/08/23 10:15 amphetamine [Adderall] AdvReac Severe shortness Verified 06/08/23 10:15 of breath dextroamphetamine [Adderall] AdvReac Severe shortness Verified 06/08/23 10:15 of breath Review of Systems 2 Review of Systems: Constitutional : No Weight loss, No Fever, No Chills, + Fatigue, + Malaise ENT/Mouth : No sore throat, No Rhinorrhea Eyes: No Eye Pain, No Swelling, No Redness Cardiovascular : + Chest Pain, + SOB, No Dyspnea on Exertion, No Orthopnea, No Edema, No Palpitations Respiratory : No Cough, No Sputum, No Wheezing Gastrointestinal : No Nausea, No Vomiting, No Diarrhea, No Constipation, No abdominal Pain, No Hematochezia, No Melena Genitourinary : No Dysuria, No Urinary Frequency, No Hematuria, Musculoskeletal : No joint pain, No Myalgias, No Joint Swelling Skin : No Skin Lesions, No rash Neuro : No Weakness, No Numbness, No Dizziness, No Headache Psych : No Anxiety/Panic, No Depression All other systems reviewed and are negative Yes all other systems are reviewed and are negative [facility] Past Medical History Attestation statement: The following information was validated with the patient. Source: old records reviewed and nursing notes reviewed Medical History Left femoral shaft fracture History of DVT (deep vein thrombosis) History of non-ST elevation myocardial infarction (NSTEMI) (~12/2020) Osteopenia ESRD (end stage renal disease) Interstitial lung disease Atherosclerotic cardiovascular disease Aortic stenosis CAD (coronary artery disease) PAF (paroxysmal atrial fibrillation) (~12/2020) Anemia Asthmatic bronchitis GERD (gastroesophageal reflux disease) CKD (chronic kidney disease), stage IV History of ectopic Depression Hypertension Surgical History History of lung biopsy History of coronary artery bypass graft x 3 S/P arteriovenous (AV) fistula creation History of colonoscopy History of total replacement of right shoulder joint History of rectopexy History of left knee replacement History of carpal tunnel release of both wrists Family History Family History Father No problems noted. Mother Myocardial infarction Social History Social History Household Members: Spouse Housing: House Do you presently have visiting nurse or other home services: No Alcohol intake: current Alcohol intake frequency: does not drink Patient Tobacco Use Status: Never used Tobacco Tobacco use type: Cigarette Cigarettes Per Day: 4 Second Hand Smoke Exposure: No Use of substances other than those prescribed or required for medical reasons: No Advance Directives: Yes Advance Directives on File: Yes Advance Directives Date on File: 03/10/23 service: No Current occupational status: retired Current occupation: young,right handed Physical Exam ED Vital Signs: Vital Signs - 24 hr 06/08/23 09:46 06/08/23 10:44 06/08/23 12:40 Pulse Rate 74 78 62 Respiratory Rate 13 15 17 Blood Pressure 136/69 139/67 140/72 H Pulse Oximetry 100 98 100 Oxygen Delivery Method Room Air Room Air Room Air BMI result Body Mass Index 22.3 vss Appearance: Alert.? Oriented X3.? No acute distress.? Head: Normocephalic, atraumatic, no step-offs or deformities Eyes: Pupils equal, round and reactive to light.? CVS: Normal heart rate and rhythm.? Pulses normal.? + systolic murmur ? aortic stenosis Respiratory: No respiratory distress.? Breath sounds w/ expiratory wheezing b/l.? Abdomen: Soft and nontender.? Skin: Skin warm and dry.? Normal skin color.? Normal skin turgor.? Extremities: No lower extremity edema.? No calf ttp. 5/5 strength to bilateral upper and lower extremities + Left sided knee immobilizer in place 2+ DP,AT,PT pulses equal and b/l. Normal sensation distally. Neuro: Oriented X 3.? No motor deficit.? No sensory deficit. CN 2-12 intact Course Reevaluation(s) Reevaluation #1: CBC with a normocytic anemia. Chemistry with hyponatremia and chronic kidney disease noted no acute findings patient is scheduled to have dialysis tomorrow. BNP 1215, noted to have coarse lung sounds in left lower lobe, concerns for pleural effusion which is confirmed on chest x-ray versus CHF. Troponin 6, EKG nonischemic. Second troponin pending. CTA pending. Plan is for hospital admission. Time: 12:54 Reevaluation #2: Second trop pending, CTA pending hospital admission at this time. Time: 14:00 Medications Administered Discontinued Medications Generic Name Dose Route Start Last Admin Trade Name Freq PRN Reason Stop Dose Admin Furosemide 20 mg 06/08/23 12:04 06/08/23 12:43 Furosemide 20 Mg/2 Ml Vial IVPUSH 06/08/23 12:05 20 mg ONCE ONE Administration Protocol Sodium Chloride 500 mls @ 500 mls/hr 06/08/23 13:00 06/08/23 13:58 Ns IV 06/08/23 13:59 500 mls/hr .Q1H DIMITRY Administration Morphine Sulfate 2 mg 06/08/23 12:35 06/08/23 12:43 Morphine Sulfate 2 Mg/Ml Cartridge IVPUSH 06/08/23 12:36 2 mg ONCE ONE Administration Protocol Medical Decision Making Medical Decision Making [facility] Narrative: 0949 73 year old female presents w/ L sided cp & sob PE systolic murmur ( ? aortic stenosis) w/ expiratory wheezing to b/l lung cannon Concerns for ACS vs angina vs non cardiac related CP. Unlikely PE, PNA, dissection Plan- labs, imaging, ekg Differential Diagnosis Differential Diagnoses: The differential diagnosis associated with the presentation includes Concerns for ACS vs angina vs non cardiac related CP. Unlikely PE, PNA, dissection Admission/Observation Consideration of admission/observation: Escalation of care including admission/observation considered Consult Healthcare Provider Management of the patient was discussed with: Hospitalist Lab Data MDM Lab Attestation statement: I reviewed the patient's lab results. 06/08/23 11:22 06/08/23 11:22 Labs: Lab Results 06/08/23 Range/Units 11:22 WBC 9.0 (4.8-10.8) X10*3/uL RBC 2.94 L (4.20-5.50) X10*6/uL Hgb 8.9 L (12.0-16.0) g/dl Hct 28.8 L (37.0-47.0) % MCV 98.0 (80.0-98.0) fL MCH 30.3 (27.0-33.0) pg MCHC 30.9 L (31.0-35.0) g/dl RDW 17.8 H (11.0-16.0) % Plt Count 216 D (160-400) X10*3/uL MPV 9.4 (9.4-12.3) fL Immature Gran % (Auto) 1.2 H (0.0-0.4) % Neut % (Auto) 69.3 (45-73) % Lymph % (Auto) 17.2 L (20-40) % [place] % (Auto) 9.8 (2-11) % Eos % (Auto) 1.8 (0-4) % Baso % (Auto) 0.7 (0-2) % Lymph # (Auto) 1.5 (1.2-4.9) X10*3/uL [place] # (Auto) 0.9 (0.1-1.2) X10*3/uL Eos # (Auto) 0.2 (0.0-0.4) X10*3/uL Baso # (Auto) 0.1 (0.0-0.2) X10*3/uL Abs Immat Gran (auto) 0.11 H (0.00-0.03) X10*3/uL Absolute Neuts (auto) 6.2 (2.0-8.3) x10*3/uL Absolute Nucleated RBC 0.000 (0.0-0.012) X10*3/uL Nucleated RBC % (auto) 0.0 (0.0-0.2) /100WBC PT 15.9 H D (11.1-13.3) SEC INR 1.3 H (0.9-1.1) D-Dimer High Sensitivty 616 NG/ML Sodium 131 L (135-145) mmol/L Potassium 4.9 (3.3-5.1) mmol/L Chloride 101 (96-108) mmol/L Carbon Dioxide 23 (22-29) mmol/L Anion Gap 12 (12-20) BUN 32 H (9-16) mg/dL Creatinine 4.54 H* (0.5-1.4) mg/dL Estim Creat Clear Calc 8.1 Estimated GFR 9 Random Glucose 81 (60-115) mg/dL Calcium 8.1 L D (8.4-10.2) mg/dL Magnesium 2.2 (1.6-2.6) mg/dL Total Bilirubin 0.3 (0.0-1.0) mg/dL AST 13 (5-31) U/L ALT 5 (0-31) U/L Alkaline Phosphatase 91 (39-117) U/L Troponin I High Sens 6.0 (<3.5-17.0) ng/L B-Natriuretic Peptide 1215 H (<100) pg/mL Total Protein 6.3 L (6.5-8.0) g/dL Albumin 2.3 L (3.5-5.0) g/dL Independent Interpretation I performed an independent interpretation of an: EKG (nonischemic ), Plain X-Ray and CT Scan Radiology Impression Discussion of test interpretation with radiology: I have reviewed the radiologist's reading. Critical Care Time Critical Care Time Critical Care Time: No Discharge Plan Discharge Clinical Impression: CKD (chronic kidney disease), Acute hyponatremia, CHF (congestive heart failure) Patient Disposition: Admitted As Inpatient
--- NOTE | 2023-06-08 09:49 | ECG_ITS ---
Test Reason : CHEST PAIN Blood Pressure : / mmHG Vent. Rate : 073 BPM Atrial Rate : 073 BPM P-R Int : 196 ms QRS Dur : 094 ms QT Int : 428 ms P-R-T Axes : 038 -21 053 degrees QTc Int : 471 ms Normal sinus rhythm RSR' or QR pattern in V1 suggests right ventricular conduction delay Borderline ECG When compared with ECG of 20-APR-2023 03:35, Left axis deviation is no longer Present Referred By: Wale Birmingham Electronically Signed By:CLARA ORTEGA MD
--- NOTE | 2023-06-08 10:16 | PC.NURSE ---
pt alert and oriented, from [facility] via ambulance. reports sudden onset of 8/10 L sided chest pain that started yesterday. more painful with inhalation and cough. no headache/dizziness/blurry vision. hx afib on eliquis. dialysis M/W/F. fistula L upper chest.
--- OUTSIDE RECORDS SUMMARY | 2023-06-08 10:28 | XMS_ITS | Continuity of Care Document ---
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 Name Role Phone Not on Staff, PCP Primary Care Physician Unavail able Encounter [facility] Date(s): 05/29/23 - 06/01/[address] [address]- Encounter Diagnosis Periprosthetic fracture of knee(Final) - 05/27/23 Periprosthetic fracture of knee(Final) - 05/31/23 Discharge Disposition: A-Transfer SNF Attending Physician: Sree Neal MD Admitting Physician: Aditya Norman MD Referring Physician: Not on Staff, Referring [...] Recorded pneumococcal 13-valent vaccine 12/31/14 Given pneumococcal 23-valent vaccine 01/21/14 Given tetanus/diphtheria/pertussis, acel(Tdap) 09/13/12 Given 1Result Comment: [05/31/2017] [id number] 2Admin Note: 1-13 [facility] [place] Medications acetaminophen 325 mg oral tablet 650 mg, 2, tablet, By Mouth, Every 6 hours, PRN, Refills 0, Maintenance, pain/fever >100F, 01/04/21 15:36:00 EDT, ; Start Date: 01/04/21 Status: Ordered amLODIPine 10 mg oral tablet 1 tablet = 10 mg, By Mouth, Daily, 0 Refills, Maintenance, 05/14/21 9:20:00 EDT, Tablet, ; Start Date: 05/14/21 Status: Ordered amLODIPine 10 mg oral tablet 10 mg, Tablet, By Mouth, 06/01/23 9:00:00 EDT Start Date: 06/01/23 Stop Date: 06/01/23 Status: Completed aspirin 81 mg oral delayed release tablet 81 mg, 1, tablet, By Mouth, Daily, Refills 0, Maintenance, 06/27/22 1:42:00 EST, ; Start Date: 06/27/22 Status: Ordered atorvastatin 80 mg oral tablet = 80 mg, By Mouth, Daily at bedtime, 0 Refills, Maintenance, 06/01/23 14:30:00 EDT, Tablet, Partialfill upon patient request if the prescription is for a schedule II opioid drug. Start Date: 06/01/23 Status: Ordered Augmentin 875 mg-125 mg oral tablet 1 tablet, By Mouth, 2 times a day, for 5 days, # 10 tablet, 0 Refills, Acute 06/06/23 14:31:00 EDT,06/01/23 14:31:00 EDT, [facility] 3, Partial fill upon patient request if the prescription is for a schedule II opioid drug., 154.94, cm, 1... Start Date: 06/01/23 Stop Date: 06/06/23 Status: Ordered calcitriol 0.25 mcg oral capsule = 0.5 mcg, By Mouth, Every Monday, Monday and Monday, 0 Refills, Maintenance, 06/01/23 14:30:00 EDT, Capsule, Partial fill upon patient request if the prescription is for a schedule II opioid drug. Start Date: 06/01/23 Status: Ordered carvedilol 6.25 mg oral tablet 6.25 mg, 1, tablet, By Mouth, 2 times a day, Refills 0, Maintenance, 06/13/22 13:35:00 EDT, ; Start Date: 06/13/22 Status: Ordered cloNIDine 0.2 mg/24 hr transdermal film, extended release 1 patch, Topically, Every week, on Monday, 0 Refills, Maintenance, 10/28/21 17:37:00 EDT, Patch, ; Start Date: 10/28/21 Status: Ordered Coreg 25 mg oral tablet 25 mg, Tablet, By Mouth, 06/01/23 9:00:00 EDT Start Date: 06/01/23 Stop Date: 06/01/23 Status: Completed Coreg 25 mg oral tablet 25 mg, Tablet, By Mouth, 05/31/23 21:00:00 EDT Start Date: 05/31/23 Stop Date: 05/31/23 Status: Completed Docusate Sodium Capsule 100 mg, 1, capsule, By Mouth, 2 times a day, PRN, Refills 0, Maintenance, Constipation, 06/01/23 14:30:00 EDT, Partial fill upon patient request if the prescription is for a schedule II opioid drug. Start Date: 06/01/23 Status: Ordered Eliquis 2.5 mg oral tablet 1 tablet, By Mouth, 2 times a day, # 56 tablet, 10 Refills, Maintenance, 09/20/22 8:15:00 EST, [facility], 162.5, cm, 06/28/22 11:05:00 EST, Height, 56, kg, 06/28/22 10:26:00 EST, Dry Weight Start Date: 09/20/22 Status: Ordered furosemide 80 mg oral tablet 80 mg, By Mouth, Every Monday, and Monday, Refills 0, Maintenance, 06/01/23 14:30:00 EDT, Partial fill upon patient request if the prescription is for a schedule II opioid drug. Start Date: 06/01/23 Status: Ordered lisinopril 20 mg oral tablet 20 mg, Tablet, By Mouth, 06/01/23 9:00:00 EDT Start Date: 06/01/23 Stop Date: 06/01/23 Status: Completed lisinopril 20 mg oral tablet 20 mg, 1, tablet, By Mouth, Daily, Maintenance, 06/27/22 9:38:00 EST, ; Start Date: 06/27/22 Status: Ordered loperamide 2 mg oral tablet 1 tablet = 2 mg, By Mouth, Daily, PRN as needed, Maintenance, 06/27/22 9:38:00 EST, ; Start Date: 06/27/22 Status: Ordered oxyCODONE 5 mg oral tablet 2.5 mg, Tablet, By Mouth, Every 6 hours, PRN for Pain , Severe, Routine, 05/28/23 10:02:00 EDT Start Date: 05/28/23 Stop Date: 06/02/23 Status: Discontinued sertraline 25 mg oral tablet 1 tablet = 25 mg, By Mouth, Daily, # 30 tablet, 0 Refills, Maintenance, 06/01/23 14:44:00 EDT, Tablet, [facility] 3, Partial fill upon patient request if the prescription is for a schedule II opioid drug., 154.94, cm, 06/01/23 8:21:00 EDT,... Start Date: 06/01/23 Status: Ordered sevelamer carbonate 800 mg oral [...] Health Status Informant Allergic rhinitis Confirmed Active Anaphylaxis 1 Confirmed 07/27/22 Active Anemia in chronic kidney disease Confirmed 08/14/22 Active Anxiety state NOS Confirmed Active Atrial fibrillation Confirmed Active Blood coagulation disorder Confirmed 07/27/22 Active CABG (Coronary artery bypass grafting) planned Confirmed Active Chronic kidney disease (CKD) stage G3b/A3 Confirmed Active CAD in [place] artery Confirmed Active COVID-19 2 Confirmed 06/01/23 Active Dependence on renal dialysis 3 Confirmed 02/03/21 Active Depression, major Confirmed Active ESRD - End stage renal disease Confirmed Active KATHY (generalized anxiety disorder) Confirmed Active Chronic generalized pain Confirmed Active 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 Active Gout Confirmed Active Heart failure with preserved ejection fraction Confirmed Active Hereditary nephropathy Confirmed 07/27/22 Active History of smoking - quit 1978 4 Confirmed Active Hyperlipidemia Confirmed Active Hyperparathyroidism due to renal insufficiency 5 Confirmed 05/05/20 Active Hypertension Confirmed Active Hypertensive nephropathy Confirmed 09/13/12 Active Insomnia Confirmed Active Ischemic cardiomyopathy Confirmed Active Chronic anticoagulation (apixaban) Confirmed 08/14/22 [address] jail current use of aspirin Confirmed 08/14/22 Active Lumbar spondylosis Confirmed 10/19/22 Active Aortic stenosis, mild Confirmed Active Pulmonary hypertension, mild Confirmed Active 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 Active OA (osteoarthritis) of knee - both knees Confirmed Active Osteoarthritis of lumbar spine Confirmed Active Osteopenia Confirmed Active Peripheral neuropathy Confirmed Active Rectal prolapse Confirmed Active Stress fracture of neck of femur 6 Confirmed 07/27/22 Active Vitamin D deficiency Confirmed Active 1Outside Source Comment: Overview: Medications listed in chart - has ended up in the ICU about 10 years ago 2Problem added by Discern Expert 3Outside Source Comment: Overview: [facility] for dialysis 4Quit 1978 5Outside Source Comment: Overview: Seeing renal 6Outside Source Comment: Overview: 05/2022 with surgery and charity placement Has seen [facility] for this and has follow up with them Results Orders for Microbiology Reports Name Date Sputum Culture w/ Gram Smear 05/30/23 Blood Culture 05/27/23 Blood Culture #2 05/27/23 Microbiology Reports TEST:Sputum Culture STATUS:Unauthenticated BODY SITE: SOURCE:EXPECT COLLECTED DATE/TIME:05/30/23 9:05 PM Sputum Culture SPECIMEN DESCRIPTION : EXPECTORATED SPUTUM SPECIAL REQUESTS : NONE GRAM STAIN : 2+ POLYMORPHONUCLEAR LEUKOCYTES 2+ SQ.EPITHELIAL CELLS 3+ GRAM POSITIVE COCCI 3+ GRAM POSITIVE RODS 2+ GRAM NEGATIVE RODS 2+ YEAST CULTURE : NORMAL SO FAR REPORT STATUS : PRELIMINARY REPORT TEST:Blood Culture STATUS:Auth (Verified) BODY SITE: SOURCE:Blood COLLECTED DATE/TIME:05/27/23 2:28 PM Blood Culture SPECIMEN DESCRIPTION : BLOOD NO SITE SPECIAL REQUESTS : NONE CULTURE : NO GROWTH 5 DAYS. REPORT STATUS : FINAL 06/01/2023 TEST:Blood Culture, Second Order STATUS:Auth (Verified) BODY SITE: SOURCE:Blood COLLECTED DATE/TIME:05/27/23 2:28 PM Blood Culture, Second Order SPECIMEN DESCRIPTION : BLOOD NO SITE SPECIAL REQUESTS : NONE CULTURE : NO GROWTH 5 DAYS. REPORT STATUS : FINAL 06/01/2023 Radiology Reports * Exam Date Time Procedure Performing Provider Status 05/27/23 6:32 PM Pelvis 1 or 2 Views Arlen Kauffman; Auth (Verified) Notes: (Pelvis 1 or 2 Views) Reason For Exam: Pain RESULT: Pelvis 1 or 2 Views Pelvis 1 or 2 Views Reason: Pain; Clinical Question(s): Fracture COMPARISON: 10/01/2022 FINDINGS: Bones are osteopenic. There is no acute fracture or dislocation. There is a partially visualized right femoral intramedullary charity with 2 right femoral neck screws. Mild degenerative changes of the hips. Moderate osteitis pubis. Moderate vascular calcification. IMPRESSION: Osteopenia with no acute fracture. WSN: [id number] Ordering Physician: Emili Shields Dictated By: Kirk Mckeon MD Dictated Date/Time: 05/27/23 6:45 pm Reviewed By: Kirk Mckeon MD Signed By: Kirk Mckeon MD Signed Date/Time: 05/27/23 6:45 pm Transcribed By: JOHN Transcribed Date/Time: 05/27/23 6:44 pm * Exam Date Time Procedure Performing Provider Status 05/27/23 3:[address] Ext Lower W/ Contrast Left Genet Pena nd; Auth (Verified) Notes: (CT Ext Lower W/ Contrast Left) Reason For Exam: concern for abscess vs infected hematoma;Infection RESULT: CT Ext Lower W/ Contrast Left CT Ext Lower W/ Contrast Left REASON: Fall about one and half weeks ago and hasn't been able to walk; Infection; concern for abscess vs infected hematoma TECHNIQUE: Helical CT of left hip and proximal-mid left femur with contrast formatted in 3 planes. 100 cc of Omnipaque 300 was administered intravenously. Weight-based protocol using automatic tube modulation was used to optimize exposure parameters. CTDIvol Body: 5.60 mGy, DLP Body: 374 mGy*cm. COMPARISONS: CT pelvis 06/26/2022, left knee x-ray 05/27/2023 FINDINGS: Bones and joints: Diffuse osteopenia. There is a partially imaged intramedullary charity with locking screw present. There is no left hip fracture or dislocation. However, there is a partially imaged oblique fracture at the medial aspect of the mid-distal femoral diaphysis adjacent to hardware (series 203 image 139), better characterized on subsequent left knee x-ray. Facet arthropathy throughout lower lumbar spine. Unchanged left degenerative sacroiliitis and osteitis pubis with periarticular cystic change. Soft Tissues: Diffuse subcutaneous edema within the lateral hip extending into the lateral thigh. No evidence of rim-enhancing fluid collection. Partially visualized colonic diverticulosis without evidence of acute diverticulitis. Small fat-containing left inguinal hernia. Severe atherosclerotic calcification. IMPRESSION: 1. No left hip fracture. Partially imaged oblique fracture at medial aspect of mid-distal femoral diaphysis adjacent to hardware, better characterized on subsequent left knee x-ray. 2. No rim-enhancing fluid collection or subcutaneous gas. 3. Diffuse subcutaneous edema within the lateral hip and visualized thigh. I have personally reviewed the images and I agree with this report. WSN: [id number] Ordering Physician: Sabrina Cullen Dictated By: Neva Michael DO Dictated Date/Time: 05/27/23 8:37 pm Reviewed By: Kirk Mckeon MD Signed By: Kirk Mckeon MD Signed Date/Time: 05/27/23 8:42 pm Transcribed By: JOHN Transcribed Date/Time: 05/27/23 4:38 pm * Exam Date Time Procedure Performing Provider Status 05/27/23 3:32 PM Chest 2 Views Frontal and Lat Do , Ti en; Auth (Verified) Notes: (Chest 2 Views Frontal and Lat) Reason For Exam: Shortness of Breath, Fever;Other: RESULT: Chest 2 Views Frontal and Lat AP and lateral chest x-ray dated May 27, 2023. Comparison films are from September 20, 2022. HISTORY: Shortness of breath. FINDINGS: The cardiac silhouette is at the upper limits of normal for size. The patient is status post median sternotomy. A left atrial appendage clip is present. A double-lumen central venous line is noted. Using a left jugular approach, the tip of the catheter overlies the cavoatrial junction. Mild bilateral pulmonary vascular congestion and interstitial thickening are present. They are improved when compared with the previous study. There is slightly more opacification in the left lower hemithorax most consistent with effusion. Associated atelectasis or pneumonia cannot be excluded. Degenerative changes are noted in the spine. There is a convex left scoliosis. Degenerative changesare seen in the left shoulder. There is a right shoulder arthroplasty. There are healed left-sided rib fractures. IMPRESSION: Improving vascular congestion and interstitial edema. Findings are suspicious for a left pleural effusion. Examination 16465. Thank you for allowing me to participate in the care of this patient. WSN: [id number] Ordering Physician: Sabrina Cullen Dictated By: Kahlil Perry MD Dictated Date/Time: 05/27/23 3:49 pm Reviewed By: Kahlil Perry MD Signed By: Kahlil Perry MD Signed Date/Time: 05/27/23 3:49 pm Transcribed By: JOHN Transcribed Date/Time: 05/27/23 3:48 pm * Exam Date Time Procedure Performing Provider Status 05/27/23 3:32 PM Knee 3 Views Left Do , Ilan; Auth ( Verified) Notes: (Knee 3 Views Left) Reason For Exam: Effusion RESULT: Knee 3 Views Left Knee 3 Views Left Reason: Effusion; Clinical Question(s): Other: COMPARISON: None. FINDINGS: There is a comminuted displaced fracture at the distal femur. There is total knee arthroplastic hardware. There is an intramedullary charity in the femur with distalscrews. There is soft tissue swelling. There are atherosclerotic vascular calcifications. IMPRESSION: There is a comminuted displaced fracture at the distal femur with extensive adjacent orthopedic hardware. WSN: [id number] Ordering Physician: Sabrina Cullen Dictated By: Hafsa Olsen MD Dictated Date/Time: 05/27/23 3:39 pm Reviewed By: Hafsa Olsen MD Signed By: Hafsa Olsen MD Signed Date/Time: 05/27/23 3:39 pm Transcribed By: JOHN Transcribed Date/Time: 05/27/23 3:36 pm Vital Signs Most recent to oldest [Reference Range]: 1 2 3 Height 154.94 cm (06/01/23 7:00 AM) 154.94 cm (05/31/23 3:56 PM) 154.94 cm (05/31/23 8:09 AM) Weight 60.0 kg (05/28/23 12:04 AM) Oxygen Saturation [94-100 %] 100 % (06/01/23 7:00 AM) 100 % (05/31/23 9:00 PM) 99 % (05/31/23 3:56 PM) Pulse Rate [55-90 bpm] 74 bpm (06/01/23 8:39 AM) 74 bpm (06/01/23 7:00 AM) 82 bpm (05/31/23 10:02 PM) Body Mass Index [18.5-24.99 kg/m2] 24.99 kg/m2 (05/28/23 12:04 AM) Blood Pressure [90-138/55-84 mm Hg] 156/67mm Hg *H* (06/01/23 8:39 AM) 156/67mm Hg *H* (06/01/23 8:38 AM) 156/67mm Hg *H* (06/01/23 8:38 AM) Respiratory Rate [16-30 br/min] 18 br/min (06/01/23 2:42 PM) 18 br/min (06/01/23 8:38 AM) 18 br/min (06/01/23 7:00 AM) Temperature [96.8-100.4 DegF] 98.0 DegF (06/01/23 7:00 AM) 98.0 DegF (05/31/23 9:00 PM) 97.9 DegF (05/31/23 3:56 PM) Mode of Delivery (Oxygen) Room air (06/01/23 7:00 AM) Room air (05/31/23 9:00 PM) Room air (05/31/23 3:56 PM) Blood pressure sites Arm, right (06/01/23 7:00 AM) Arm, right (05/31/23 9:00 PM) Arm, right (05/31/23 4:09 AM) Temperature Route Oral (06/01/23 7:00 AM) Oral (05/31/23 9:00 PM) Oral (05/31/23 3:56 PM) Dry Weight 60.0 kg (05/28/23 12:04 AM) Weight Obtained Via Bed scale (05/28/23 12:04 AM) Dry Weight Obtained Via Bed scale (05/28/23 12:04 AM) Social History Social History Type Response Smoking Status Use: 4 or less cigar ettes(less than 1/4 pack)/day in last 30 days;Never; Other: qquit smoking 1 ppd in 1979 and then occasional 1-3 cigarettes on occasion, last cigarette prior to May; entered on: 05/23/23 Sex Admission evaluation note * Yong GORMAN, Srinivasan Corbin: MODIFY, PERFORM Event Display: Admission Note Authored Date: [id number] Patient: ??TRACEY HEARN ? Age:??73 Years?Sex:??Female?:??1950?? Chief Complaint/Reason for Consultation Pt coming from [facility] in [place]. With lethargy and fever x a few hours . 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 ?? Reportedly??she underwent an IM rodding of her left femur fracture in 04/[address] Tripp in [place] and was discharged to rehab. She now present with one day history of lethargy, fever, cough andchest congestion. ?? In the emergency department she was afebrile, hemodynamically stable, on room air with good oxygen saturation.?? Her lab work significant for worsening anemia with hemoglobin of 7.8 g/dl, elevatedcreatinine of 3.8, and positive COVID 19 PCR.?? Chest x-ray showed opacification of the left lower hemithorax suggestive of left pleural effusion. Imaging of pelvis and lower extremity showed post-ope rative changes with no acute abnormalities.?? Review of Systems Constitutional:?fever, lethargy Cardiovascular:??chest congestion Respiratory:??cough Gastrointestinal:?No anorexia, nausea, vomiting or diarrhea. No abdominal pain or blood in stool. Genitourinary: No burning micturition. No urinary frequency or incontinence. Neurologic: No headache, dizziness, syncope, unilateral weakness, ataxia, numbness or tingling in the extremities. No change in bowel or bladder control. Musculoskeletal: No muscle pain, back pain, joint pain or stiffness. Hematologic: No bleeding or bruising. Lymphatics: No enlarged lymph nodes. Psychiatric: No depression or anxiety. Endocrine: No reports of sweating. No cold or heat intolerance. No polyuria or polydipsia. All other systems were reviewed and are negative.?? Objective Vital Signs?? Temperature: 98 DegF (05/28/23 00:04:00) Temperature Route: Oral (05/28/23 00:04:00) Pulse Rate: 74 bpm (05/28/23 00:04:00) Respiratory Rate: 18 br/min (05/28/23 00:04:00) Systolic Blood Pressure:??152 mm Hg??High (05/28/23 00:04:00) Diastolic Blood Pressure: 75 mm Hg (05/28/23 00:04:00) Blood pressure sites: Arm, right (05/28/23 00:04:00) Mean Arterial Pressure: 101 mm Hg (05/28/23 00:04:00) Pulse Pressure: 77 mm Hg (05/28/23 00:04:00) Oxygen Saturation: 98 % (05/28/23 00:04:00) Mode of Delivery (Oxygen): Room air (05/28/23 00:04:00) Early Warning Score: 1 (05/28/23 02:38:01) ? Physical Exam Constitutional: Alert, in no acute distress. Head: Normocephalic. Eyes: Pupils are equal, round and reactive to light. Extraocular muscles intact. No pallor or scleral icterus Ear, Nose and Throat: mucous membranes moist. Ears and nose - no obvious deformities. Neck: No JVD or bruits. Respiratory:??Clear to auscultation. No wheezing or rhonchi.??No use of accessory muscles. Cardiovascular:??S1 S2 regular. No murmurs, rubs or gallops. Gastrointestinal:??Abdomen soft, non-tender, non-distended. Genitourinary:??No costovertebral angle tenderness. Extremities: bilateral lower extremity swelling. No cyanosis or clubbing. Neurologic:??AAOx3, Cranial nerves II-XII grossly intact. Speech normal, no facial droop. No focal neurological deficits. Moves all extremities spontaneously. Musculoskeletal:??No gross deformities on inspection.?? Psychiatric: Normal mood and affect. 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 ?? Active Problem list:?? 1. ??COVID-19 ??(U07.1):?? present with one day history of lethargy, fever, cough and chest congestion - hemodynamically stable, on room air with good oxygen saturation. Chest x-ray showed opacification of the left lower hemithorax suggestive of left pleural effusion - hold off steroid for now. - discuss with ID in AM remdesivir or paxlovid if being discharged. ?? 2. ??Periprosthetic fracture of knee ??(M97.9XXA): - f/u ortho recommendation. ?? 3. ??Hypertension ??(I10) 4. ??Hyperlipidemia ??(E78.5) 5. ??Coronary artery disease ??(I25.10) 6. ??Heart failure with preserved ejection fraction ??(I50.30) 7. ??Atrial fibrillation ??(I48.91) - Need to clarify home medications as there is no paperwork from rehab in her physical chart - according to community case manager they have not received any. - For now continue Eliquis, aspirin, statin, Coreg??12.5??twice daily,??lisinopril 20 mg once daily. ? 8. ??End stage renal disease ??(N18.6) - consult renal in AM. ?? 9. Worsening anemia:??no sign of active bleed. - continue to monitor. ?? Prophylaxis: VTE: Continue Eliquis. ?? Goal of care: Code Status:??No resuscitate but OK to intubate (per??[facility]??in [place]) ? Histories Allergies Allergies ?(Active and Proposed Allergies Only) atenolol? (Severity: Unknown severity, Onset: Unknown) ?Reactions: Cardiac Palpitations doxycycline? (Severity: Unknown severity, Onset: Unknown) Adderall? (Severity: Unknown severity, Onset: Unknown) Duloxetine? (Severity: Unknown severity, Onset: Unknown) ?Reactions: diarrhea ? 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 Chronic kidney disease (CKD) stage G3b/A3 Dependence on renal dialysis Depression, major ESRD - End stage renal disease KATHY (generalized anxiety disorder) Gout Heart failure with preserved ejection fraction Hereditary nephropathy History of smoking - quit 1978 Hyperlipidemia Hyperparathyroidism due to renal insufficiency Hypertension Hypertensive nephropathy Insomnia 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 Past Surgical History Open treatment of femoral shaft fracture, with or without external fixation, with insertion of intramedullary implant, with or without cerclage and/or locking screws: 04/22/23 Ligation or banding of angioaccess arteriovenous fistula: 10/10/22 Revision, open, arteriovenous fistula; with thrombectomy, autogenous or nonautogenous dialysis graft (separate procedure): 10/03/22 Open treatment of femoral shaft fracture, with or without external fixation, with insertion of intramedullary implant, with or without cerclage and/or locking screws: 05/24/22 Revision, open, arteriovenous fistula; with thrombectomy, autogenous or nonautogenous dialysis graft (separate procedure): 05/03/22 Creation of arteriovenous fistula by other than direct arteriovenous anastomosis (separate procedure); autogenous graft: 02/03/22 Proctoplasty; for prolapse of mucous membrane: 10/29/21 Replacement, complete, of a tunneled centrally inserted central venous catheter, without subcutaneous port or pump, through same venous access: 12/25/20 Coronary artery bypass, using venous graft(s) and arterial graft(s); 2 venous grafts (List separately in addition to code for primary procedure): 12/22/20 Colonoscopy - Due 2027: 07/17/18 Stress ECHO 2012: 05/08/12 Arthroplasty, knee, condyle and plateau; medial AND lateral compartments with or without patella resurfacing (total knee arthroplasty) Neuroplasty and/or transposition; median nerve at carpal tunnel Arthroplasty, glenohumeral joint; total shoulder (glenoid and proximal humeral replacement (eg, total shoulder)) BMD 2013 due 2014 BMD 2007 Colonoscopy 2008 ? Social History Alcohol Details:??Use: Current. [...] Abuse Details:??Use: Never. Details:??Use: Never. Tobacco Details:??Use: 4 or less cigarettes(less than 1/4 pack)/day in last 30 days. ??Other: qquit smoking1 ppd in 1979 and then occasional 1-3 cigarettes on occasion, last cigarette prior to May. ??Smokeless tobacco use: Never. ? Family History Mother: Father: Daughter: Multiple sclerosis Son: Multiple sclerosis ? Medications Home Medications Acetaminophen (acetaminophen 325 mg oral tablet)?650?Milligram?2?tablet?By Mouth?Every 6 hours?as needed?pain/fever >100F Amlodipine (amLODIPine 10 mg oral tablet)?1?tab(s)?10?Milligram?By Mouth?Daily apixaban (Eliquis 2.5 mg oral tablet)?1?tab(s)?By Mouth?2 times a day Aspirin (aspirin 81 mg oral delayed release tablet)?81?Milligram?1?tablet?By Mouth?Daily Carvedilol (carvedilol 6.25 mg oral tablet)?6.25?Milligram?1?tablet?By Mouth?2 times a day Clonidine (cloNIDine 0.2 mg/24 hr transdermal film, extended release)?1?patch(es)?Topically?Every week?on Monday Lisinopril (lisinopril 20 mg oral tablet)?20?Milligram?1?tablet?By Mouth?Daily Loperamide (loperamide 2 mg oral tablet)?1?tab(s)?2?Milligram?By Mouth?Daily?as needed?as needed Sevelamer (sevelamer carbonate 800 mg oral tablet)?2?tab(s)?1,600?Milligram?By Mouth?2 times a day Trazodone (traZODone 100 mg oral tablet)?100?Milligram?1?tablet?By Mouth?Daily atbedtime ? Results Recent Labs BLOOD COUNT & DIFF WBC 6.1 k/mm3 ()?? 05/27/2023 14:28 RBC 2.61 m/mm3 (Low)?? 05/27/2023 14:28 Hgb 7.8 Gm/dL (Low)?? 05/27/2023 14:28 Hct 26.2 % (Low)?? 05/27/2023 14:28 MCV 100.4 femtoliters (High)?? 05/27/2023 14:28 MCH 29.9 pg ()?? 05/27/2023 14:28 MCHC 29.8 g/dL (Low)?? 05/27/2023 14:28 Platelet Count 189 k/mm3 ()?? 05/27/2023 14:28 RDW-SD 64.4 femtoliters (High)?? 05/27/2023 14:28 MPV 9.9 femtoliters ()?? 05/27/2023 14:28 Nucleated RBC (Automated) 0.0 #/100 WBC'S ()?? 05/27/2023 14:28 Abs. NRBC 0.0 k/mm3 ()?? 05/27/2023 14:28 Abs. Neut 3.9 k/mm3 ()?? 05/27/2023 14:28 Abs. Lymph 1.0 k/mm3 ()?? 05/27/2023 14:28 Abs. [place] 0.9 k/mm3 ()?? 05/27/2023 14:28 Abs. Eo 0.2 k/mm3 ()?? 05/27/2023 14:28 Abs. Baso 0.1 k/mm3 ()?? 05/27/2023 14:28 Neut % 64.9 % ()?? 05/27/2023 14:28 Lymph % 16.1 % ()?? 05/27/2023 14:28 [place] % 15.1 % (High)?? 05/27/2023 14:28 Eos % 2.8 % ()?? 05/27/2023 14:28 Baso % 0.8 % ()?? 05/27/2023 14:28 Imm Gran 0.3 % ()?? 05/27/2023 14:28 Abs. Imm Gran 0.0 k/mm3 ()?? 05/27/2023 14:28 ?? CHEM GENERAL Sodium 131 mmol/L (Low)?? 05/27/2023 14:28 Potassium 4.8 mmol/L ()?? 05/27/2023 14:28 Chloride 99 mmol/L ()?? 05/27/2023 14:28 Bicarbonate Level 22 mmol/L ()?? 05/27/2023 14:28 Anion Gap 10 ()?? 05/27/2023 14:28 Glucose Level 89 mg/dL ()?? 05/27/2023 14:28 BUN 28 mg/dL (High)?? 05/27/2023 14:28 Creatinine-Blood 3.8 mg/dL (High)?? 05/27/2023 14:28 Estimated GFR Creatinine 12 ML/MIN/1.73 M2 ()?? 05/27/2023 14:28 Calcium 7.9 mg/dL (Low)?? 05/27/2023 14:28 Lactate 0.8 mmol/L ()?? 05/27/2023 14:28 ?? COAG INR 1.1 ()?? 05/27/2023 14:28 Protime (PT) 11.8 seconds (High)?? 05/27/2023 14:28 APTT 39.6 seconds (High)?? 05/27/2023 14:28 ?? URINE OTHER Est Creatinine Clearance 9.65 mL/min ()?? 05/28/2023 00:12 ?? VIROLOGY COVID-19 by RT-PCR POSITIVE (Abnormal)?? 05/27/2023 20:57 ? EKG study * Event Display: ECG 12-Lead Authored Date: Please click on pdf link to open report * Event Display: ECG 12-Lead Authored Date: Ventricular Rate: 70 BPM Atrial Rate: 70 BPM P-R Interval: 208 ms QRS Duration: 92 ms Q-T Interval: 492 ms QTC Calculation(Bazett): 531 ms P Hydes: 41 degrees R Hydes: -20 degrees T Hydes: 17 degrees Critical Test Result: Long QTc Normal sinus rhythm Prolonged QT Abnormal ECG When compared with ECG of 26-JUN-2022 21:00, T wave amplitude has increased in Anterior leads Nonspecific T wave abnormality, worse in Lateral leads QT has lengthened Confirmed by YVONNE ALBERTO MD ([id number]) on 05/31/2023 5:40:34 PM Dexter: REMY GORMAN,[facility] Progress note * Екатерина Krishnamurthy: PERFORM, SIGN, VERIFY Event Display: Progress Note Hospital Authored Date: Patient: TRACEY HEARN Age: 73 years Sex: Female : 1950 Associated Diagnoses: None Author: Екатерина Krishnamurthy [facility] Nephrology Progress Note Interval History Had HD yesterday with -2.5 L removed. Sodium up to 128 today from 123. Patient tearful during our conversation again today, appears overwhelmed. Review of Systems Review of Systems Constitutional: Malaise. Respiratory: no shortness of breath. Cardiovascular: no peripheral edema. Gastrointestinal: no nausea, no vomiting. Physical Examination Vital Signs Vitals : VITALS 06/01/2023 7:00 EDT Height 154.94 cm Temperature 98.0 DegF Temperature Route Oral Pulse Rate 74 bpm Respiratory Rate 18 br/min Systolic Blood Pressure 156 mm Hg H Diastolic Blood Pressure 67 mm Hg Blood pressure sites Arm, right Mean Arterial Pressure 97 mm Hg Pulse Pressure 89 mm Hg Oxygen Saturation 100 % Mode of Delivery (Oxygen) Room air . General Appearance Fatigued. Ill-appearing. Respiratory Decreased breath sounds. Extremities Extremities: LIJ PermCath. No edema. Neurologic Alert & oriented x 3 . Results Review 7 Day Results Results Laboratory : LABORATORY 06/01/2023 0:32 EDT WBC 5.3 k/mm3 RBC 3.03 m/mm3 L Hgb 8.9 Gm/dL L Hct 28.7 % L MCV 94.7 femtoliters MCH 29.4 pg MCHC 31.0 g/dL L Platelet Count 201 k/mm3 RDW-SD 55.8 femtoliters H MPV 9.9 femtoliters Nucleated RBC (Automated) 0.0 #/100 WBC'S Abs. NRBC 0.0 k/mm3 Sodium 128 mmol/L L Potassium 3.7 mmol/L Chloride 94 mmol/L L Bicarbonate Level 21 mmol/L L Anion Gap 13 Glucose Level 78 mg/dL BUN 15 mg/dL Creatinine-Blood 2.6 mg/dL H Estimated GFR Creatinine 18 ML/MIN/1.73 M2 Calcium 7.6 mg/dL L Phosphorus 3.6 mg/dL Magnesium 2.0 mg/dL Impression and Plan Tracey Hearn is a 73-year-old female with a past medical history significant for hypertension, hyperlipidemia, end-stage renal disease (secondary to FSGS on HD), CAD s/p CABG, atrial fibrillation onEliquis, HFpEF, lung cancer, recent femur fracture in April 2023 who was brought to the hospital for evaluation of lethargy and being admitted with COVID-19 infection. 1. ESRD Patient dialyzes MWF at [facility] with [facility] Blood cultures negative x 2 2. HTN/Volume Chronically, patient takes amlodipine 10 mg daily, lisinopril 20 mg BID, clonidine 0.2 mg qweek, Lasix 80 mg non-HD days Hyponatremia due to intake >> output. UOsm supportive of excess fluid intake 3. 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 - Fluid restriction!! - Continue amlodipine 10 mg daily, lisinopril 20 mg BID, clonidine 0.2 mg patch qweek (added 05/30), Lasix 80 mg non-HD days - Continue sevelamer 800 mg TID w/meals - Continue calcitriol 0.5 mcg MWF, hold Sensipar given low PTH - No EPO given lung cancer - Renal diet Екатерина Sorenson PA-C [facility] Discussed with Dr. Magdaleno * Brody ENGLE, Stephanie: PERFORM, SIGN, VERIFY Event Display: Progress Note Hospital Authored Date: Patient: TRACEY HEARN Age: 73 years Sex: Female : 1950 Associated Diagnoses: None Author: Stephanie Skinner RN Findings Problem Related to Alteration in Musculoskeletal : Alteration in Musculoskeletal Func/new 06/01/2023 10:00 EDT Alteration in Musculoskeletal Related to Fracture, Mobility, Other: L distal periprosthetic femur fx Goals & Outcomes, Musculoskeletal Affected extremity will maintain color/motion/sensation, Pt able to perform ADL's to best of ability, Pt demonstrates precautions/exercise/ transfers per protocol, Pt will ambulate safely with assistive device, Pt will be free from complications of immobility, Pt will demonstrate ability to participate in ADL's, Pt will report acceptable level of comfort/painrelief Interventions, Musculoskeletal Monitor patients ambulation status, monitor Color/Motion/Sensation, Assist with repositioning, Teach & Encourage use of Incentive spirometer Goals/Interventions, Musculoskeletal Yes Musculoskeletal, Problem Start 05/28/2023 2:43 Reviewed Plan with, Musculoskeletal Patient Patient Progression, Musculoskeletal Pt progressing according to plan . Nursing Data Vital Signs : VITAL SIGNS SECTION 06/01/2023 7:00 EDT Temperature 98.0 DegF Temperature Route Oral Pulse Rate 74 bpm Respiratory Rate 18 br/min Systolic Blood Pressure 156 mm Hg H Diastolic Blood Pressure 67 mm Hg Blood pressure sites Arm, right Mean Arterial Pressure 97 mm Hg Pulse Pressure 89 mm Hg Oxygen Saturation 100 % Mode of Delivery (Oxygen) Room air . Narrative/Incidental Patient is alert and oriented x3. Lung sounds are clear upon diminished upon auscultation. Non--productive cough. Patient denies any sob/cp. Incentive spirometer encouraged. Bowel sounds are +x4, abdomen is soft/nontender, patient endorses flatus. Last bowel movement 05/31, patient on a renal/diabetic diet, tolerating well, patient denies any n/v. Patient voiding clear/yellow urine. Patient turned and repositioned for comfort, turned off back with pillows, centrella bed in place. Patient skin intact, skin tear right forearm-jerzy. Patient has stage II pressure ulcer to coccyx, triad cream applied as ordered. C boots on bilaterally for dvt prophylaxis, eliquis for dvt prophylaxis. Immobilizer in place. Ice to hip. Will continue to monitor musculoskeletal status. . Discharge Information Case Management Discharge Plan : Case Management Discharge Plan Data 05/29/2023 14:29 EDT Discharge Nursing Homes/Rehab Facilities [facility] * Carlitos ENGLE, Mary Hennessy: PERFORM, SIGN, VERIFY Event Display: Progress Note Hospital Authored Date: Patient: TRACEY HEARN Age: 73 years Sex: Female : 1950 Associated Diagnoses: None Author: Carlitos ENGLE, Mary Hennessy Findings Problem Related to Alteration in Integumentary : Alteration in Integumentary/new 06/01/2023 0:00 EDT Alteration in Integumentary Related to Moisture, Shear, Friction, Immobility, Mechanical/Surgical trauma, Stage II Goals & Outcomes, Integumentary Nutritional intake is adequate for metabolic needs, Pt will maintain adequate fluid & nutritional balance, Pt will maintain intact skin integrity, Wound will progress towards healing Interventions, Integumentary Cleanse all wounds with Normal Saline, Collaborate w/ provider for PT/OT consults, Consult Wound Care as needed for further interventions, Encourage & assist pt to change position frequently, Encourage & assist with range of motion exercises Goals/Interventions, Integumentary Yes Integumentary, Problem Start 05/28/2023 2:45 Reviewed plan with, Integumentary Patient Patient Progression, Integumentary Pt progressing according to plan . Alteration in Musculoskeletal : Alteration in Musculoskeletal Func/new 06/01/2023 0:00 EDT Alteration in Musculoskeletal Related to Fracture, Mobility, Other: L distal periprosthetic femur fx Goals & Outcomes, Musculoskeletal Affected extremity will maintain color/motion/sensation, Pt able to perform ADL's to best of ability, Pt demonstrates precautions/exercise/ transfers per protocol, Pt will ambulate safely with assistive device, Pt will be free from complications of immobility, Pt will demonstrate ability to participate in ADL's, Pt will report acceptable level of comfort/painrelief Interventions, Musculoskeletal Monitor patients ambulation status, monitor Color/Motion/Sensation, Assist with repositioning, Encourage deep breathing & coughing exercises, Notify MD immediately if tissue perfusion deteriorates, Obtain assistive devices as needed, Teach & Encourage use of Incentive spirometer, Teach Pt/caregiver on ADL's & adaptive equipment, Teach Pt/caregiver on exercises, Teach pt/caregiver on use of pain scale, Teach Pt/caregiver complications of immobility, Teach Pt/caregiver techniques to increase mobility, Teach Pt/caregiver on safety precautions BH Goals/Interventions, Musculoskeletal Yes Musculoskeletal, Problem Start 05/28/2023 2:43 Reviewed Plan with, Musculoskeletal Patient Patient Progression, Musculoskeletal Pt progressing according to plan . Nursing Data Apnea/Bradycardia : Apnea/Bradycardia 05/31/2023 21:00 EDT Pulse Rate 82 bpm Oxygen Saturation 100 % . Cardiac Data. : Cardiac Data. 06/01/2023 0:36 EDT Cardiovascular WNL . Gastrointestinal Data. : Gastrointestinal Data. 06/01/2023 0:36 EDT GI WNL . Genitourinary Data. : Genitourinary Data. 06/01/2023 0:36 EDT Urinary catheter type Female External Urine Collection Device WNL except . HEENT Data. : HEENT Assessment 06/01/2023 0:36 EDT HEENT, Adult WNL . Integumentary Data. : Integumentary Data. 06/01/2023 0:36 EDT Skin Integrity Not intact Activity Walks occasionally Mobility Slightly limited Pressure Ulcer Location I Coccyx Pressure Ulcer I, Drainage Amount None Integumentary WNL except . IV Lines. : IV Lines. 06/01/2023 0:41 EDT Right Antecubital 20 gauge Peripheral IV Activity: Assess Peripheral IV Assess Compare Touch: A/C/T Done, no complications Peripheral IV Site Assessment: Clean, dry and intact . Musculoskeletal Data. : Musculoskeletal Data. 06/01/2023 0:36 EDT Musculoskeletal Symptoms Fracture, Other: Non op L patella fx Special Orthopedic Devices Immobilizer Musculoskeletal WNL except . Neurological Data. : Neurological Data. 06/01/2023 0:36 EDT 1 - 10 Pain Scale Score 10 Neuro WNL . Patient Care Data. : Patient Care Data. 06/01/2023 0:40 EDT Turn and Reposition Able to change own position, With partial assist, While in bed Sequential Compression Device Sequentials on bilaterally TEDS Not indicated/Not ordered ID band on Yes Allergy band in place/verified Yes Blood Pressure/Venipuncture Do not use left arm, Do not use left leg Call Cerrato in Reach-Ensure Ability to Use Yes Patient Instructed on Use of Call Cerrato Yes Standard Safety Bed in low position, Non-slip footwear, Upper/Half-length side- rails up, Wheels locked Pt Ed-Learning: Person Taught Patient Pt Ed-Learning: Learning Readiness Yes, alert and oriented 06/01/2023 0:39 EDT Fall Elimination No impairment Fall Agitation/Anxiety/Depression No impairment Fall Related Sign/Symptom/Condition None Fall Cognitive Limitations No impairment Fall Sensory and Physical Function Unsteady Gait, Requires Staff Assistance with Transfer, Requiresthe Use of an Assistive Device Plan: Fall Sensory and Physical Function Encourage safe activities to maintain strength & mobility, Perform strengthening exercises with the patient, Ask family to encourage safe activities, Monitor patient's progress with physical activities, Educate patient how to use mobility aids safely, Educate the family how to use mobility aids safely, Place mobility aids near bedside, Ensure patient has & wears eyeglasses/hearing aids, Collaborate with MD to refer to physical therapy, Collaborate with Physical Therapy for balance/gait training, Collaborate with MD to refer to occupational therapy Fall High Risk for Injury None of the above Total Falls Risk Score 9 Fall Risk Level High Risk Falls Prevention Plan for High Risk Apply yellow high fall risk wrist band to wrist, Ensure patienthas yellow non-skid slippers, Supervise patient in the bathroom & shower, Consider relocating patient closer to nurses' station, Evaluate footwear & ensure patient has non-skid slippers, Bed in lowest locked position, Provide patient/family falls prevention education, Place personal care items & call cerrato within reach, Instruct patient/family to request assistance with ambulatio, Instruct patient/family not to get up without assistance, Supervise the patient when ambulating or making transfers, Check that needs are met to minimize attempts to get up, Hourly rounds, Ensure safe & uncluttered environment, Communicate falls risk to all providers, Consider consult with [facility] as appropriate, Transport by stretcher to Radiology 06/01/2023 0:36 EDT Patient's Stated Goal to get my strength back Pain system assessment Detailed pain assessment . Respiratory/Pulmonary Data. 06/01/2023 0:40 EDT Respiratory Treatment(s) Cough and deep breathe, Incentive spirometry 06/01/2023 0:36 EDT Cough Non-productive Left Upper Lobe Breath Sounds Diminished Right Upper Lobe Breath Sounds Diminished Right Middle Lobe Breath Sounds Diminished Left Lower Lobe Breath Sounds Diminished Right Lower Lobe Breath Sounds Diminished Respiratory WNL except 05/31/2023 21:00 EDT Mode of Delivery (Oxygen) Room air . Vital Signs : VITAL SIGNS SECTION 05/31/2023 21:00 EDT Temperature 98.0 DegF Temperature Route Oral Pulse Rate 82 bpm Respiratory Rate 18 br/min Systolic Blood Pressure 128 mm Hg Diastolic Blood Pressure 72 mm Hg Blood pressure sites Arm, right Oxygen Saturation 100 % Mode of Delivery (Oxygen) Room air . Pain Data : PAIN SECTION 06/01/2023 0:36 EDT 1 - 10 Pain Scale Score 10 . Evaluation P:alteration in musculoskeletal/integumentary I: see interventions above E: Non-op L femur periprosthetic fracture. A&Ox3, calm and cooperative with plan of care. Very anxious and emotional at times. Covid positive. ERP in place. LS dim. Denies SOB/CP/dizziness. IS Inuse at bedside. Non-productive cough. Abx for covid pneumonia. Abd soft, non-tender. +bowel sounds,+flatus. Tolerating renal diet well. Denies N/V/D. Last BM 05/31. Primafit in place. Voiding cyu. Oliguric at baseline. Dialysis [facility]. L chest permacath. Strong d/p, +pp, +cap refill. CMS intact. Denies numbness/tingling. Pain _05/23. Oxycodone and tylenol given with positive effect. L knee/leg swollen, tender, and painful. Ice to leg. Cboots on BLE. for DVT prophylaxis. Bedfast. Stage 2 shear injury to coccyx. Triad cream applied.Tx bed in use. Turned and repositoned for comfort. Bed in lowest locked position. Call cerrato/belongings within reach. Encouraged to use call cerrato for needs. Plan isfor discharge to rehab when covid negative. . Note * Vicky Engle MD, Sree: PERFORM, MODIFY, MODIFY Event Display: Discharge/Transfer Note Hospital Authored Date: Patient: ??TRACEY HEARN ? Age:??73 Years?Sex:??Female?:??1950?? Patient Information Discharge Location: [facility] Primary Care Physician: Not on Staff, PCP Admit Date/Time: 05/29/23 09:34 Discharge Disposition Discharge Disposition: Correction Facility[facility]Rehab Discharge Diagnosis COVID-19 (U07.1) Periprosthetic fracture of knee (M97.9XXA) Hypertension (I10) Hyperlipidemia (E78.5) Coronary artery disease (I25.10) Heart failure with preserved ejection fraction (I50.30) Atrial fibrillation (I48.91) End stage renal disease (N18.6) Periprosthetic fracture of knee (M97.9XXA) Depression _ Discharge Medications Acetaminophen (acetaminophen 325 mg oral tablet)?650?Milligram?2?tablet?By Mouth?Every 6 hours?as needed?pain/fever >100F Amlodipine (amLODIPine 10 mg oral tablet)?1?tab(s)?10?Milligram?By Mouth?Daily Amoxicillin-Clavulanate (Augmentin 875 mg-125 mg oral tablet)?1?tab(s)?By Mouth?2 timesa day?for 5?Days apixaban (Eliquis 2.5 mg oral tablet)?1?tab(s)?By Mouth?2 times a day Aspirin (aspirin 81 mg oral delayed release tablet)?81?Milligram?1?tablet?By Mouth?Daily Atorvastatin (atorvastatin 80 mg oral tablet)?80?Milligram?By Mouth?Daily at bedtime Calcitriol (calcitriol 0.25 mcg oral capsule)?0.5?Microgram?By Mouth?Every Monday, Monday and Monday Carvedilol (carvedilol 6.25 mg oral tablet)?6.25?Milligram?1?tablet?By Mouth?2 times a day Clonidine (cloNIDine 0.2 mg/24 hr transdermal film, extended release)?1?patch(es)?Topically?Every week?on Monday Docusate (Docusate Sodium Capsule)?100?Milligram?1?capsule?By Mouth?2 times a day?as needed?Constipation Furosemide (furosemide 80 mg oral tablet)?80?Milligram?By Mouth?Every Monday, and Monday Lisinopril (lisinopril 20 mg oral tablet)?20?Milligram?1?tablet?By Mouth?Daily Loperamide (loperamide 2 mg oral tablet)?1?tab(s)?2?Milligram?By Mouth?Daily?as needed?as needed Sertraline (sertraline 25 mg oral tablet)?1?tab(s)?25?Milligram?By Mouth?Daily Sevelamer (sevelamer carbonate 800 mg oral tablet)?2?tab(s)?1,600?Milligram?By Mouth?2 times a day Trazodone (traZODone 100 mg oral tablet)?100?Milligram?1?tablet?By Mouth?Daily atbedtime ?? 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 ?? COVID-19 (U07.1): Possible bacterial superimposed pneumonia p/w one day history of lethargy, fever, cough and chest congestion - hemodynamically stable, on room air with good oxygen saturation. tested +ve on hence Isolation for??10 days.?? Until 06/06/23 Chest x-ray showed opacification of the left lower hemithorax suggestive of left pleural effusion. Currently she is not requiring any O2,??Per??antimicrobials and she did not qualify for remdesivir. Procalcitonin 0.27.?Hence patient was started on IV antibiotics.?? Ceftriaxone and azithromycin Patient to oral Augmentin on discharge.?? Completed course of antibiotics. ?? Hyponatremia: ??? 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 Patient is extremely dehydrated very poor p.o. intake??due to??depression and recuurent??hospitalization No suicidal ideation.?P.o. intake has improved. ??Sodium is 128 on discharge.?? Fluid restriction 1.5 L HD today as per MWF schedule.?? Continue amlodipine 10 mg daily, lisinopril 20 mg BID, clonidine 0.2 mg patch qweek (added 05/30), Lasix 80 mg non-HD days Continue sevelamer 800 mg TID w/meals Continue calcitriol 0.5 mcg MWF, hold Sensipar given low PTH?? No EPO given lung cancer?? Renal diet?? Follow-up with renal as an outpatient. ?? H/L Lung CA: Diagnosed recently CT chest from 10/06 Masslike and solid opacity involving the posterior left lower lobe measuring up to 2.7 cm,. The appearance is suspicious for a neoplastic process, though a consolidated pneumonia or round atelectasis could have a similar appearance.? Follow-up with oncology at??[facility]. ?? Periprosthetic fracture, left distal femur. History of left total knee arthroplasty. History of intramedullary rodding, left femur fracture. Nonweightbearing, left lower extremity. Pain control with?Knee immobilizer and Tylenol No acute operative intervention. per ortho consult. Outpatient followup with Dr. Tripp. ?? Coronary artery disease??(I25.10) Heart failure with preserved ejection fraction??(I50.30) Atrial fibrillation??(I48.91) continue Eliquis, aspirin, statin, Coreg 12.5 twice daily, lisinopril 20 mg once daily.? Depression: Patient tearful during our conversation again today, appears overwhelmed and depressed. Expressed willingness to start low-dose sertraline.?? No homicidal or suicidal Follow-up with PCP for??depression management??for further dosage adjustments ?? Chronic anemia at baseline. ?? Code Status: No resuscitate but OK to intubate (per MOL in [facility]) ?? Plan to correction facility today. Vital Signs?? Temperature: 98 DegF (06/01/23 07:00:00) Temperature Route: Oral (06/01/23 07:00:00) Pulse Rate: 74 bpm (06/01/23 08:39:00) Respiratory Rate: 18 br/min (06/01/23 08:38:00) Systolic Blood Pressure:??156 mm Hg??High (06/01/23 08:39:00) Diastolic Blood Pressure: 67 mm Hg (06/01/23 08:39:00) Blood pressure sites: Arm, right (06/01/23 07:00:00) Mean Arterial Pressure: 97 mm Hg (06/01/23 07:00:00) Pulse Pressure: 89 mm Hg (06/01/23 07:00:00) Oxygen Saturation: 100 % (06/01/23 07:00:00) Mode of Delivery (Oxygen): Room air (06/01/23 07:00:00) Early Warning Score: 2 (06/01/23 08:41:09) ? . Physical Exam General: lying on the bed, saturating well on room air.?? Cardiovascular: S1, S2. Regular rhythm. No MRG. Respiratory: Reduced breath sound on bases, No RRR.?? Gastrointestinal: Soft, Nontender, Non distended, Normal bowel sounds.?? Neurological: Cranial nerves intact. Motor and sensory intact. [facility] Pending Results Add On Lab Order ordered on 05/31/2023 Add On Lab Order ordered on 05/31/2023 Add On Lab Order ordered on 05/31/2023 Blood Culture ordered on 05/27/2023 Blood Culture #2 ordered on 05/27/2023 Sputum Culture w/ Gram Smear ordered on 05/30/2023 Follow-Up Appointments Added Follow Up ?Time Frame ?Comments PCP Not on Staff?1 to 2 weeks Post Discharge Care Diet: ??Renal diet ?? Activity: ??Ambulate with assistance 3 times a day unless otherwise specified ?? Wound Care: ??Wound Site: Buttocks Daily Yes ?? Code Status: ??Limited Resuscitation No External Chest Compressions Other Comfort Measures: ok to intubate and mechanical ventilate but no resuscitate ?? Discharge ?06/01/23 14:23:00 EDT Discharge Prescriptions ?ePrescribed, 06/01/23 14:23:00 EDT Home Health Face to Face ^HomeHealthFTF Results Discharge Labs BLOOD COUNT & DIFF WBC 5.3 k/mm3 ()?? 06/01/2023 00:32 RBC 3.03 m/mm3 (Low)?? 06/01/2023 00:32 Hgb 8.9 Gm/dL (Low)?? 06/01/2023 00:32 Hct 28.7 % (Low)?? 06/01/2023 00:32 MCV 94.7 femtoliters ()?? 06/01/2023 00:32 MCH 29.4 pg ()?? 06/01/2023 00:32 MCHC 31.0 g/dL (Low)?? 06/01/2023 00:32 Platelet Count 201 k/mm3 ()?? 06/01/2023 00:32 RDW-SD 55.8 femtoliters (High)?? 06/01/2023 00:32 MPV 9.9 femtoliters ()?? 06/01/2023 00:32 Nucleated RBC (Automated) 0.0 #/100 WBC'S ()?? 06/01/2023 00:32 Abs. NRBC 0.0 k/mm3 ()?? 06/01/2023 00:32 Abs. Neut 3.9 k/mm3 ()?? 05/27/2023 14:28 Abs. Lymph 1.0 k/mm3 ()?? 05/27/2023 14:28 Abs. [place] 0.9 k/mm3 ()?? 05/27/2023 14:28 Abs. Eo 0.2 k/mm3 ()?? 05/27/2023 14:28 Abs. Baso 0.1 k/mm3 ()?? 05/27/2023 14:28 Neut % 64.9 % ()?? 05/27/2023 14:28 Lymph % 16.1 % ()?? 05/27/2023 14:28 [place] % 15.1 % (High)?? 05/27/2023 14:28 Eos % 2.8 % ()?? 05/27/2023 14:28 Baso % 0.8 % ()?? 05/27/2023 14:28 Imm Gran 0.3 % ()?? 05/27/2023 14:28 Abs. Imm Gran 0.0 k/mm3 ()?? 05/27/2023 14:28 ?? CHEM GENERAL Sodium 128 mmol/L (Low)?? 06/01/2023 00:32 Potassium 3.7 mmol/L ()?? 06/01/2023 00:32 Chloride 94 mmol/L (Low)?? 06/01/2023 00:32 Bicarbonate Level 21 mmol/L (Low)?? 06/01/2023 00:32 Anion Gap 13 ()?? 06/01/2023 00:32 Glucose Level 78 mg/dL ()?? 06/01/2023 00:32 BUN 15 mg/dL ()?? 06/01/2023 00:32 Creatinine-Blood 2.6 mg/dL (High)?? 06/01/2023 00:32 Estimated GFR Creatinine 18 ML/MIN/1.73 M2 ()?? 06/01/2023 00:32 Calcium 7.6 mg/dL (Low)?? 06/01/2023 00:32 Phosphorus 3.6 mg/dL ()?? 06/01/2023 00:32 Magnesium 2.0 mg/dL ()?? 06/01/2023 00:32 Lactate 0.8 mmol/L ()?? 05/27/2023 14:28 Iron Level 45 mcg/dL ()?? 05/30/2023 02:50 Iron Binding Capacity, Unsaturated 74 mcg/dL (Low)?? 05/30/2023 02:50 Iron Binding Capacity, Estimated Total 119 mcg/dL (Low)?? 05/30/2023 02:50 % Iron Saturation 38 % ()?? 05/30/2023 02:50 Ferritin Level 3180 ng/mL (High)?? 05/30/2023 02:50 ?? COAG INR 1.1 ()?? 05/27/2023 14:28 Protime (PT) 11.8 seconds (High)?? 05/27/2023 14:28 APTT 39.6 seconds (High)?? 05/27/2023 14:28 ? MISC. CHEMISTRY Procalcitonin 0.27 ng/mL ()?? 05/28/2023 09:09 ? UA/URINALYSIS Appear/Color, Urine LIGHT YELLOW ()?? 05/29/2023 03:45 Specific [place], Urine 1.012 ()?? 05/29/2023 03:45 pH, Urine 8.0 ()?? 05/29/2023 03:45 Albumin, Urine 2+ (Abnormal)?? 05/29/2023 03:45 Glucose, Urine TRACE (Abnormal)?? 05/29/2023 03:45 Ketones, Urine NEGATIVE ()?? 05/29/2023 03:45 Bilirubin, Urine NEGATIVE ()?? 05/29/2023 03:45 Hemoglobin, Urine 3+ (Abnormal)?? 05/29/2023 03:45 Nitrite, Urine NEGATIVE ()?? 05/29/2023 03:45 Leukocyte, Urine 2+ (Abnormal)?? 05/29/2023 03:45 Urobilinogen NORMAL mg/dL ()?? 05/29/2023 03:45 WBC's, Urine 13 /HPF (High)?? 05/29/2023 03:45 RBC's, Urine 15 /HPF (High)?? 05/29/2023 03:45 Bacteria SLIGHT HPF (Abnormal)?? 05/29/2023 03:45 Squamous Epith 3 /HPF ()?? 05/29/2023 03:45 Hold Urine Culture Testing available 48 hours from time of collection. ()?? 05/29/2023 03:45 ?? URINE OTHER Creatinine, Urine Random 21.2 mg/dL ()?? 05/29/2023 03:45 Sodium, Urine Random 68 mmol/L ()?? 06/01/2023 04:30 Osmolality, Urine Random 243 mOsm/kg ()?? 06/01/2023 04:30 Est Creatinine Clearance 14.11 mL/min ()?? 06/01/2023 02:19 ?? VIROLOGY COVID-19 by RT-PCR POSITIVE (Abnormal)?? 05/27/2023 20:57 ? 45_ minutes spent on discharge * Glenny ENGLE, Madison Salmeron: PERFORM, SIGN, VERIFY Event Display: Case Management Discharge Plan Authored Date: [id number] Patient: TRACEY HEARN Age: 73 years Sex: Female : 1950 Associated Diagnoses: None Author: Madison Murrieta RN Discharge Plan Case Management Discharge Plan : Case Management Discharge Plan Data 06/01/2023 11:05 EDT Discharge Level of Care at Discharge intermediate facility Discharge Nursing Homes/Rehab Facilities [facility] Discharge Transportation Arranged [facility] [address] [place] [address] Discharge Arranged Transport Date/Time 06/01/2023 15:00 Mode of Transportation Arranged Ambulance Name of Agency #1 [facility] [employer] [facility] #1 admissions Service Categories #1 Occupational Therapy, Physical Therapy, Correction Service Start Date and Time #1 06/01/2023 15:00 Service Comments #1 You are going to rehab today. 05/29/2023 14:29 EDT Discharge Nursing Homes/Rehab Facilities [facility] * Brody ENGLE, Stephanie: PERFORM Event Display: Patient Education/Instruction Authored Date: [id number] Inpatient Adult Discharge Instructions [address] [address] Name: TRACEY HEARN : 1950 Visit: 05/29/2023 09:34:00 Current Date: 06/01/2023 14:30 Account: [id number] Inpatient Adult Discharge Instructions We would like to thank you for allowing us to assist you with your healthcare needs. The following includes patient education materials and information regarding your injury/illness. Our entire staffstrives to provide an excellent experience for our patients and their families. PLEASE ENSURE YOU FOLLOW-UP PER THE INSTRUCTIONS BELOW! ?? YOUR OPINION IS IMPORTANT TO US! Please complete the survey you may receive by mail or email. Your feedback will be used to make improvements to the healthcare experiences of our patients and their families. Surveys are administered by [employer]. ?? If further treatment with your primary care physician or another doctor is recommended, it is important for you to keep the appointment. Call your primary care physician or return to the Emergency Department immediately if your condition worsens, fails to improve, or new symptoms develop. If you need to find a doctor, you can call [facility] [employer] for a referral at [phone] or toll free at [phone]) or log in to [email or web address] ?? [facility], in keeping with [facility] guidance, no longer requires face masks for staff, patientsor visitors in most situations. Similiar to time spent indoors at other locations, there is the chance that you were exposed to repiratory viruses during your time with us (such as flu or COVID-19). If you develop symptoms concerning for a viral respiratory infection, please seek testing (and treatment if indicated) from your medical provider or home test kit. ?? You can view and manage your care through the patient portal or by using a health care marcin of your choosing. [employer] is a website that allows you to securely view your medical information including your hospital discharge summary, office visit summaries, medications and follow-up visits. You can also request appointments, renew medications, and request access to your medical information using a health care marcin of your choosing, or just ask a question. You can enroll at [email or web address] or register during your next office visit. You have been discharged from [facility], Patient Care Unit: SW7. If you have any questions regarding these instructions after you leave, please call us and we will be happy to assist you. [facility] Your Care Team Attending Physician Vicky Engle MD, Sree Consulting Providers Sharla GORMAN, Meño; Desiree GORMAN, Ivan Gutierrez MD, Leighton Wade MD, Kay Corbin Discharging Providers Vicky Engle MD, Sree Reason for Admission Pt coming from [facility] [place]. With lethargy and fever x a few hours . Not lethargic or febrile for ems Your Diagnosis Periprosthetic fracture of knee COVID-19 Hypertension Hyperlipidemia Coronary artery disease Heart failure with preserved ejection fraction Atrial fibrillation End stage renal disease Periprosthetic fracture of knee Tests Performed Below is a partial list of the tests performed during your hospitalization. You may have had other tests and procedures not included in this list. Please discuss all test results with your provider. Basic Metabolic Panel CBC CBC w/ Differential COVID-19 (Novel Coronavirus), Rapid PCR Ferritin INR Iron + Iron Binding Capacity Lactate Level Magnesium Level Phosphorus Level Procalcitonin Level PTT Urinalysis w/hold for Urine Culture Urine Creatinine Urine Osmolality Urine Sodium CT Ext Lower W/ Contrast Left Knee 3 Views Left Pelvis 1 or 2 Views XR Chest 2 Views Frontal and Lat Primary Care Provider Not on Staff, PCP Advance Directive Health Care Proxy on File Yes - Health Care Proxy Yes - MOLST Discharge Vitals Temperature: 98 DegF Height: 154.94 cm Pulse Rate: 74 bpm Weight: 60 kg Respiratory Rate: 18 br/min Body Mass Index: 24.99 kg/m2 Systolic Blood Pressure:??156 mm Hg??High Body surface area: 1.61 Diastolic Blood Pressure: 67 mm Hg ?? Oxygen Saturation: 100 % ?? Studies Pending All tests and labs ordered during this hospital stay have been completed unless listed below. Please discuss all pending results with your provider listed above in these instructions. ?? Add On Lab Order Blood Culture Blood Culture #2 Sputum Culture w/ Gram Smear What to do next Instructions From Your Doctor Discharge Orders Discharge Medications TRACEY HEARN :1950 Visit Date:05/29/2023 Medications: Please continue your medications until treatment is completed or stopped by your provider. Medications not listed below should be discontinued. Discuss any questions related to medications with your provider. What How Much When Instructions Next Dose Unchanged Acetaminophen (acetaminophen 325 mg oral tablet) 2 tab(s) Oral Every 6 hours as needed for pain/fever >100F 4 pm Unchanged Amlodipine (amLODIPine 10 mg oral tablet) 1 tab(s) Oral Daily 06/02 8am Unchanged apixaban (Eliquis 2.5 mg oral tablet) 1 tab(s) Oral Twice a day 8 pm Unchanged Aspirin (aspirin 81 mg oral delayed release tablet) 1 tab(s) Oral Daily 06/02 8am Unchanged Carvedilol (carvedilol 6.25 mg oral tablet) 1 tab(s) Oral Twice a day 8 pm Unchanged Clonidine (cloNIDine 0.2 mg/ 24 hr transdermal film, extended release) 1 patch(es) Topically Every week on Monday ?? 06/06 8am Unchanged Lisinopril (lisinopril 20 mg oral tablet) 1 tab(s) Oral Daily 06/02 8am Unchanged Loperamide (loperamide 2 mg oral tablet) 1 tab(s) Oral Daily as needed for as needed PRN Unchanged Sevelamer (sevelamer carbonate 800 mg oral tablet) 2 tab(s) Oral Twice a day 8 pm Unchanged Trazodone (traZODone 100 mg oral tablet) 1 tab(s) Oral Daily at Bedtime 9pm Test Results Below is a partial list of the most recent Laboratory test results done prior to this discharge. You may have had other tests and procedures not included in this list. Please discuss all test resultswith your provider. Est Creatinine Clearance - 14.11 mL/min (06/01/2023) Basic Metabolic Panel (06/01/2023) ???Sodium - 128 mmol/L???Potassium - 3.7 mmol/L???Chloride - 94 mmol/L???Bicarbonate Level - 21 mmol/L???Anion Gap - 13???Glucose Level - 78 mg/dL???BUN - 15 mg/dL???Creatinine-Blood - 2.6 mg/dL???Estimated GFR Creatinine - 18 ML/MIN/1.73 M2???Calcium - 7.6 mg/dL CBC (06/01/2023) ???WBC - 5.3 k/mm3???RBC - 3.03 m/mm3???Hgb - 8.9 Gm/dL???Hct - 28.7 %???MCV - 94.7 femtoliters???MCH - 29.4 pg???MCHC - 31.0 g/dL???Platelet Count - 201 k/mm3???RDW-SD - 55.8 femtoliters???MPV - 9.9femtoliters???Nucleated RBC (Automated) - 0.0 #/100 WBC'S???Abs. NRBC - 0.0 k/mm3 CBC w/ Differential (05/27/2023) ???WBC - 6.1 k/mm3???RBC - 2.61 m/mm3???Hgb - 7.8 Gm/dL???Hct - 26.2 %???MCV - 100.4 femtoliters???MCH - 29.9 pg???MCHC - 29.8 g/dL???Platelet Count - 189 k/mm3???RDW-SD - 64.4 femtoliters???MPV - 9.9 femtoliters???Nucleated RBC (Automated) - 0.0 #/100 WBC'S???Abs. NRBC - 0.0 k/mm3???Abs. Neut - 3.9 k/mm3???Abs. Lymph - 1.0 k/mm3???Abs. [place] - 0.9 k/mm3???Abs. Eo - 0.2 k/mm3???Abs. Baso - 0.1 k/mm3???Neut % - 64.9 %???Lymph % - 16.1 %???[place] % - 15.1 %???Eos % - 2.8 %???Baso % - 0.8 %???Imm Gran - 0.3 %???Abs. Imm Gran - 0.0 k/mm3 COVID-19 (Novel Coronavirus), Rapid PCR (05/27/2023) ???COVID-19 by RT-PCR - POSITIVE Ferritin (05/30/2023) ???Ferritin Level - 3180 ng/mL INR (05/27/2023) ???INR - 1.1???Protime (PT) - 11.8 seconds Iron + Iron Binding Capacity (05/30/2023) ???Iron Level - 45 mcg/dL???Iron Binding Capacity, Unsaturated - 74 mcg/dL???Iron Binding Capacity,Estimated Total - 119 mcg/dL???% Iron Saturation - 38 % Lactate Level (05/27/2023) ???Lactate - 0.8 mmol/L Magnesium Level (06/01/2023) ???Magnesium - 2.0 mg/dL Phosphorus Level (06/01/2023) ???Phosphorus - 3.6 mg/dL Procalcitonin Level (05/28/2023) ???Procalcitonin - 0.27 ng/mL PTT (05/27/2023) ???APTT - 39.6 seconds Urinalysis w/hold for Urine Culture (05/29/2023) ???Appear/Color, Urine - LIGHT YELLOW???Specific [place], Urine - 1.012???pH, Urine - 8.0???Albumin, Urine - 2+???Glucose, Urine - TRACE???Ketones, Urine - NEGATIVE???Bilirubin, Urine - NEGATIVE???Hemoglobin, Urine - 3+???Nitrite, Urine - NEGATIVE???Leukocyte, Urine - 2+???Urobilinogen - NORMAL???WBC's, Urine - 13 /HPF???RBC's, Urine - 15 /HPF???Bacteria - SLIGHT???Squamous Epith - 3 /HPF???Hold Urine Culture - Testing available 48 hours from time of collection. Urine Creatinine (05/29/2023) ???Creatinine, Urine Random - 21.2 mg/dL Urine Osmolality (06/01/2023) ???Osmolality, Urine Random - 243 mOsm/kg Urine Sodium (06/01/2023) ???Sodium, Urine Random - 68 mmol/L Allergies (NKA means No Known Allergies) Adderall Duloxetine??(diarrhea) atenolol??(Cardiac Palpitations) doxycycline Problems Active Problems??(39) Allergic rhinitis?? Anaphylaxis?? Anemia in chronic kidney disease?? Anxiety state NOS?? Aortic stenosis, mild?? Atrial fibrillation?? Blood coagulation disorder?? CABG (Coronary artery bypass grafting) planned?? CAD in [place] artery?? Chronic anticoagulation (apixaban)?? Chronic generalized pain?? 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 Chronic kidney disease (CKD) stage G3b/A3?? COVID-19?? Dependence on renal dialysis?? Depression, major?? ESRD - End stage renal disease?? KATHY (generalized anxiety disorder)?? Gout?? Heart failure with preserved ejection fraction?? Hereditary nephropathy?? History of smoking - quit 1979?? Hyperlipidemia?? Hyperparathyroidism due to renal insufficiency?? Hypertension?? Hypertensive nephropathy?? Insomnia?? Ischemic cardiomyopathy?? 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 Lumbar spondylosis?? 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 OA (osteoarthritis) of knee - both knees?? Osteoarthritis of lumbar spine?? Osteopenia?? Peripheral neuropathy?? Pulmonary hypertension, mild?? Rectal prolapse?? Stress fracture of neck of femur?? Vitamin D deficiency?? Education Materials Below is the list of Educational Leaflet Providered with your Discharge Instructions. Valuables and Belongings I fully understand and agree that [facility] accepts no responsibility for all my [...] to send valuables and belongings home. ?? Review of Valuable and Belonging List: With patient Date for Pt to Sign Valuables/Belongings: 05/28/23 00:12:00 ?? Other Discharge Information ?? Wound Assessment?? Wound Assessment?? Wound Location I: Coccyx Wound Type I: Other: moisture Wound I, Present on Admission: Yes ?? Case Management Discharge Plan?? Discharge Plan?? Discharge Agency Information?? Discharge Level of Care at Discharge: intermediate facility Name of Agency #1: [facility]da Su[facility] Discharge Transportation Arranged: [facility] [address] [facility] ??[phone] Agency [employer] #1: admissions Mode of Transportation Arranged: Ambulance Service Start Date and Time #1: 06/01/23 15:00:00 Discharge Arranged Transport Date/Time: 06/01/23 15:00:00 Service Categories #1: Occupational Therapy, Physical Therapy, Correction [facility]charge [facility] [place] Service Comments #1: You are going to rehab ??today. ?? Pulmonary Rehab Status?? Pulmonary Rehab Discharge [...] are strongly encouraged to quit. Please call [facility] [employer] at [phone] or [phone] ([phone]) or log in to [email or web address] for referrals to smoking cessation programs. ?? 337 Suicide & Crisis Lifeline is available 06/03 if you or someone you know needs to find a reason to keep living. By calling 549 you'll be connected to a skilled, trained counselor at a crisis center in your area. INPATIENT DISCHARGE INSTRUCTIONS SIGNATURE PAGE TRACEY HEARN Location:[facility] Registration Date and Time:05/29/2023 09:34 EDT Primary Care Physician: Not on Staff, PCP Attending Physician: Vicky Engle MD, [facility], I TRACEY HEARN, have received the above patient education materials/instructions and have verbalized understanding. If ambulance or transport services are being used I further acknowledge being given a choice of service. ?? If you need to contact me, please call me at this number: . 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 Signature: Relationship to Patient: Witness Name/Signature: Date: * Vicky Engle MD, Sree: PERFORM, SIGN, VERIFY Event Display: Patient Education Handout Authored Date: [id number] * Event Display: Provider Clarification Note Please click on pdf link to open report Consult note * Ash Garibay RN: PERFORM, SIGN, VERIFY, MODIFY, SIGN, MODIFY, SIGN Event Display: Consultation Note Authored Date: Patient: TRACEY HEARN Age: 73 years Sex: Female : 1950 Associated Diagnoses: None Author: Ash Garibay RN buttocks History of Presenting Problem Date of Service 05/30/2023 Reason for referral Wound: Description Location- Buttocks Etiology- Moisture associated skin damage (MASD) Wound Bed- partial thickness skin loss with pink viable tissue and desquamation Dilcia Wound- desquamation Edges- well defined Goals- offload pressure, protect from moisture/friction, Triad for moist wound healing. Wound RN consult entered to assess coccyx wound and make topical recommendations. Patient presented with lethargy and was admitted for COVID-19. Patient has PMH of HTN, HLD, ESRD, CAD s/p coronary artery bypass, AFIB, HFpEF, Lung cancer, and recent femur fracture from 04/2023. Recommendations/assessment discerned via Photo and brief chart review. Wound RN did not assess at bedside. Patient is incontinent of urine. Recommendations cortexted to MD Jasmina Herrera. Recommendations: 1.) Buttocks: No Brief or Mepilex foam use. Cleanse with pH balanced cleanser. Pat dry. Apply thin layer of Triad to wound bed. Only pat and dab, no scrub and rub, when soiling occurs. Reapply thin layer PRN after incontinence care. 2.) Continue use of specialty bed/low air loss mattress 3.) Turn and reposition every 2 hours and PRN 4.) Continue incontinence care as well as moisture management; do not utilize Mepilex foam dressingwith incontinence. 5.) Continue to offload bony prominences 6.) Float heels 7.) Continue to provide optimal nutritional support 8.) Provide Gaymar cushion to chair when patient OOB * Meño Magdaleno MD: SIGN Sharla GORMAN, Meño: SIGN, MODIFY Meño Magdaleno MD: MODIFY, SIGN, VERIFY Event Display: Consultation Note Authored Date: [id number] Patient: TRACEY HEARN Age: 73 years Sex: Female : 1950 Associated Diagnoses: None Author: Yas GIBSON, Екатерина [facility] Inpatient Nephrology Consultation Note Reason for Consult: ESRD History of Present Illness Tracey Hearn is a 73-year-old female with a past medical history significant for hypertension, hyperlipidemia, end-stage renal disease (secondary to FSGS on HD), CAD s/p CABG, atrial fibrillation onEliquis, HFpEF, history of lung cancer, recent femur fracture in April 2023 who was brought to the hospital for evaluation of lethargy and being admitted with COVID-19 infection. Reportedly she underwent an IM rodding of her left femur fracture in 04/[address] Tripp in [place] and was discharged to rehab. She now present with one day history of lethargy, fever, cough and chest congestion. in ER, patient was afebrile, on room air with good oxygen saturation. Her lab work significant for anemia with hemoglobin of 7.8 g/dL, hyponatremia, mild hyperkaelmia, acidosis, and positive COVID 19PCR. CXR showed opacification of the left lower hemithorax suggestive of left pleural effusion. Imaging of pelvis and lower extremity showed post-operative changes with no acute abnormalities On my assessment, patient was receiving dialysis. She reported no complaints, no shortness of breath. No cramping or lightheadedness. Review of Systems Constitutional: No weight loss, fever, chills, weakness or fatigue. HEENT: No visual loss, blurred vision, double vision or yellow sclera. No hearing loss, sneezing, congestion, runny nose or sore throat. Skin: No rash or itching. Cardiovascular: No chest pain, chest pressure or chest discomfort. No palpitations or pedal edema. Respiratory: No shortness of breath, cough or sputum production. Gastrointestinal: Negative for nausea, vomiting & diarrhea. No abdominal pain or blood in stool. Genitourinary: No burning micturition. No urinary frequency or incontinence. Neurologic: No headache, dizziness, syncope, unilateral weakness, ataxia Musculoskeletal: No muscle pain, back pain, joint pain or stiffness. Hematologic: No bleeding or bruising. Lymphatics: No enlarged lymph nodes. Psychiatric: No depression or anxiety. Endocrine: No reports of sweating. No cold or heat intolerance. No polyuria or polydipsia. 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 Anaphylaxis Blood coagulation disorder Hereditary nephropathy Stress fracture of neck of femur Dependence on renal dialysis Hyperparathyroidism due to renal insufficiency Hypertensive nephropathy Allergic rhinitis Anxiety state NOS Aortic stenosis, mild Atrial fibrillation CABG (Coronary artery bypass grafting) planned CAD in [place] artery Chronic generalized pain 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 Chronic kidney disease (CKD) stage G3b/A3 Depression, major ESRD - End stage renal disease KATHY (generalized anxiety disorder) Gout Heart failure with preserved ejection fraction History of smoking - quit 1978 Hyperlipidemia Hypertension Insomnia Ischemic cardiomyopathy 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 OA (osteoarthritis) of knee - both knees Osteoarthritis of lumbar spine Osteopenia Peripheral neuropathy Pulmonary hypertension, mild Rectal prolapse Vitamin D deficiency Medications: Acetaminophen (acetaminophen 325 mg oral tablet) 650 Milligram 2 tablet By Mouth Every6 hours as needed pain/fever >100F Amlodipine (amLODIPine 10 mg oral tablet) 1 tab(s) 10 Milligram By Mouth Daily apixaban (Eliquis 2.5 mg oral tablet) 1 tab(s) By Mouth 2 times a day Aspirin (aspirin 81 mg oral delayed release tablet) 81 Milligram 1 tablet By Mouth Daily Carvedilol (carvedilol 6.25 mg oral tablet) 6.25 Milligram 1 tablet By Mouth 2 times a day Clonidine (cloNIDine 0.2 mg/24 hr transdermal film, extended release) 1 patch(es) Topically Every week on Monday Lisinopril (lisinopril 20 mg oral tablet) 20 Milligram 1 tablet By Mouth Daily Loperamide (loperamide 2 mg oral tablet) 1 tab(s) 2 Milligram By Mouth Daily as needed as needed Sevelamer (sevelamer carbonate 800 mg oral tablet) 2 tab(s) 1,600 Milligram By Mouth 2 times a day Trazodone (traZODone 100 mg oral tablet) 100 Milligram 1 tablet By Mouth Daily at bedtime Social History: Alcohol Details: Use: Current. Frequency: 1-2 times per year. Type: Wine. Details: Use: Past. Frequency: Daily. Type: Wine, Liquor. Other: used to drink 1/2 pint daily for 20 years, quit 2 years ago. Binge drinking: No. Employment/School Details: Status: young. Exercise Details: Self assessment: Fair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
[2023-06-08 10:44] VITALS: BP 139/67; PULSE 78; RESP 15; O2SAT 98
[2023-06-08 11:25] LABS: MANUAL DIFF FLAG NO
--- NOTE | 2023-06-08 11:26 | PC.NURSE ---
22g iv inserted in RAC, pt tolerated well. NO IVs OR BLOOD DRAW L ARM.
[2023-06-08 11:28] LABS: Basophils Absolute Auto 0.1 X10*3/uL (0.0-0.2); Basophils Percent Auto 0.7 % (0-2); Eosinophils Absolute Auto 0.2 X10*3/uL (0.0-0.4); Eosinophils Percent Auto 1.8 % (0-4); Hematocrit 28.8 % (37.0-47.0); Hemoglobin 8.9 g/dl (12.0-16.0); Imm Gran Abs Auto 0.11 X10*3/uL (0.00-0.03); Imm Gran Pct Auto 1.2 % (0.0-0.4); Lymphocytes Absolute Auto 1.5 X10*3/uL (1.2-4.9); Lymphocytes Percent Auto 17.2 % (20-40); Mean Corpuscular HGB Conc 30.9 g/dl (31.0-35.0); Mean Corpuscular Hemoglobin 30.3 pg (27.0-33.0); Mean Platelet Volume 9.4 fL (9.4-12.3); Monocytes Absolute Auto 0.9 X10*3/uL (0.1-1.2); Monocytes Percent Auto 9.8 % (2-11); Neutrophils Absolute Auto 6.2 x10*3/uL (2.0-8.3); Neutrophils Percent Auto 69.3 % (45-73); Platelet Count 216 X10*3/uL (160-400); Red Blood Count 2.94 X10*6/uL (4.20-5.50); Red Cell Distribution Width 17.8 % (11.0-16.0)
[2023-06-08 11:35] LABS: INTERNATIONAL NORM RATIO 1.3 (0.9-1.1); Prothrombin Time 15.9 SEC (11.1-13.3)
[2023-06-08 11:37] LABS: D Dimer High Sensitivity 616 NG/ML
[2023-06-08 11:47] LABS: Alanine Aminotransferase 5 U/L (0-31); Albumin Level 2.3 g/dL (3.5-5.0); Alkaline Phosphatase 91 U/L (39-117); Anion Gap 12 (12-20); Aspartate Amino Transferase 13 U/L (5-31); Bilirubin Total 0.3 mg/dL (0.0-1.0); Blood Urea Nitrogen 32 mg/dL (9-16); Calcium 8.1 mg/dL (8.4-10.2); Carbon Dioxide 23 mmol/L (22-29); Chloride 101 mmol/L (96-108); Creatinine Clr Calc Pharmacy 8.1; Estimated Glomerular Filt Rate 9; Glucose Random 81 mg/dL (60-115); Magnesium 2.2 mg/dL (1.6-2.6); Potassium 4.9 mmol/L (3.3-5.1); Sodium 131 mmol/L (135-145); Total Protein 6.3 g/dL (6.5-8.0)
[2023-06-08 11:50] LABS: B Type Natriuretic Peptide 1215 pg/mL (<100)
[2023-06-08 12:40] VITALS: BP 140/72; PULSE 62; RESP 17; O2SAT 100
[2023-06-08] MEDS: Morphine Sulfate 2 MG/ML CARTRIDGE IVPUSH (12:43)
[2023-06-08] MEDS: Furosemide 20 MG/2 ML VIAL IVPUSH ×2 (12:43→19:33)
--- NOTE | 2023-06-08 12:47 | PC.NURSE ---
meds given as ordered. pt resting quietly, no apparent distress.
--- NOTE | 2023-06-08 13:42 | P.HPHOSP_ITS ---
History of Present Illness Date of Service: 06/08/23 <PAIGE Mckeon - Last Filed: 06/08/23 16:58> Attending physician on admission: Fady Santana <PAIGE Mckeon - Last Filed: 06/08/23 16:58> Chief Complaint: SOB, fatigue <PAIGE Mckeon - Last Filed: 06/08/23 16:58> Pt is a 73-year-old female with a PMH significant for?paroxysmal AFib on Eliquis, ESRD on hemodialysis M/W/F, CAD s/p CABG, HFrEF, carotid stenosis, interstitial lung disease, and recently diagnosed adenocarcinoma of left lower lung who presents to the ED for evaluation of inspiratory pleuritic chest pain. Pt was recently discharged from our facility on 05/03/2023 for left femur fracture s/p ORIF on 04/22. Pt was at home working with PT when she complained of pain with breathing in to her therapist, who suggsted she come to the ED. She states it feels like being punched in the side when she breaths. Has had increased fatigue and shortness of breath. Patient has not noticed any increased lower leg edema, the notes she did go to hemodialysis yesterday. Patient states she takes all of her medications as prescribed, though it is unclear exactly how compliant patient has been with her medications. Patient states she has been in an out of hospital almost nonstop for the past month and a half. Has been seen and hospitalized at [facility], and here during that time. Reports always gives her medication list while at the hospital, which she reports seems to constantly change. Medication review indicates patient last filled her furosemide script on 02/16/2023 with a 30 day supply. Last filled Eliquis on 04/05/2023 with a 30 day supply. Denies chest pressure. No fever, chills, nausea, vomiting, abdominal pain. Of note, she also states she has yet to follow-up with oncology for her lung cancer, recently diagnosed sometime in April. In the ED labs were significant for H&H of 8.9/28.8 (near baseline), D-dimer 616, sodium 131, BUN 32, creatinine 4.54, BNP 1215 (elevated from 393 on 03/10/2023). Hepatic function baseline. Troponin 6.0. CXR showed radiopacity in the left lung base that may reflect atelectasis versus evolving infectious/inflammatory etiology, and trace left-sided pleural effusion. CTA of chest showed moderate left and small right pleural effusions with a left lower lobe consolidation/infiltrate. Did not find any evidence of PE and no evidence of aortic aneurysm.. EKG demonstrated normal sinus rhythm without evidence of ST elevations or depressions. Pt was treated with furosemide and morphine. Pt will be admitted to the hospital for treatment further evaluation of acute HFrEF exacerbation likely secondary to medication noncompliance. <PAIGE Mckeon - Last Filed: 06/08/23 16:58> Review of Systems 2 Review of Systems: Pleuritic inspiratory chest pain Increased fatigue, SOB No lower leg edema Denies chest pressure Denies fever, chills, nausea, vomiting, abdominal pain <PAIGE Mckeon - Last Filed: 06/08/23 16:58> [facility] Medical History: Medical History Left femoral shaft fracture History of DVT (deep vein thrombosis) History of non-ST elevation myocardial infarction (NSTEMI) (~12/2020) Osteopenia ESRD (end stage renal disease) Interstitial lung disease Atherosclerotic cardiovascular disease Aortic stenosis CAD (coronary artery disease) PAF (paroxysmal atrial fibrillation) (~12/2020) Anemia Asthmatic bronchitis GERD (gastroesophageal reflux disease) CKD (chronic kidney disease), stage IV History of ectopic Depression Hypertension <PAIGE Mckeon - Last Filed: 06/08/23 16:58> Family History: Family History Father No problems noted. Mother Myocardial infarction <PAIGE Mckeon - Last Filed: 06/08/23 16:58> Surgical History: Surgical History History of lung biopsy History of coronary artery bypass graft x 3 S/P arteriovenous (AV) fistula creation History of colonoscopy History of total replacement of right shoulder joint History of rectopexy History of left knee replacement History of carpal tunnel release of both wrists <PAIGE Mckeon - Last Filed: 06/08/23 16:58> Social History: Social History Household Members: None Housing: Other Housing Other:: rehab Do you presently have visiting nurse or other home services: No Alcohol intake: current Alcohol intake frequency: does not drink Patient Tobacco Use Status: Never used Tobacco Tobacco use type: Cigarette Second Hand Smoke Exposure: No Use of substances other than those prescribed or required for medical reasons: No Currently Displaying Signs/Symptoms of Drug Intoxication Withdrawal: No Have you been hit, kicked, punched, or otherwise hurt by someone within the past year? If so, by whom?: No Do you feel safe in your current relationship?: Yes Is there a partner from a previous relationship who is making you feel unsafe now?: No Are you made to feel afraid or neglected: No Advance Directives: Yes Advance Directives on File: Yes Advance Directives Date on File: 03/10/23 Do you have thoughts of harming others: None Do you have a plan to hurt others: No Plan Recently lost weight without trying: No Eating poorly because of decreased appetite: No Nutrition Risks: No Nutritional Risk Patient : No : No Poor oral hygiene: No service: No Current occupational status: retired Current occupation: young,right handed <PAIGE Mckeon - Last Filed: 06/08/23 16:58> Meds Allergies/Adverse reactions: Allergies Allergy/AdvReac Type Severity Reaction Status Date / Time atenolol [ATENOLOL] Allergy Severe DIFF Verified 06/08/23 10:15 BREATHING, heart races. doxycycline Allergy Severe Anaphylaxis Verified 06/08/23 10:15 duloxetine Allergy Severe Anaphylaxis Verified 06/08/23 10:15 amphetamine [Adderall] AdvReac Severe shortness Verified 06/08/23 10:15 of breath dextroamphetamine [Adderall] AdvReac Severe shortness Verified 06/08/23 10:15 of breath <PAIGE Mckeon - Last Filed: 06/08/23 16:58> Active Medications: Current Medications Sodium Chloride (Ns) 500 mls @ 500 mls/hr IV .Q1H DIMITRY Stop: 06/08/23 13:59 <PAIGE Mckeon - Last Filed: 06/08/23 16:58> Home medications: Home Medications Medication Instructions Recorded Confirmed Last Taken Type gabapentin 300 mg capsule 300 mg PO BEDTIME 11/09/22 06/08/23 05/03/23 History aspirin 81 mg chewable tablet 81 mg PO DAILY 03/10/23 06/08/23 05/03/23 History fluoxetine 20 mg capsule 20 mg PO DAILY 03/15/23 06/08/23 05/03/23 History sevelamer carbonate 800 mg tablet 800 mg PO TIDWM 04/20/23 06/08/23 05/03/23 History atorvastatin 80 mg tablet 80 mg PO DAILY 05/03/23 06/08/23 05/03/23 History carvedilol 6.25 mg tablet 6.25 mg PO BID 05/03/23 06/08/23 05/03/23 History docusate sodium 100 mg tablet 100 mg PO DAILY 05/03/23 06/08/23 05/02/23 History oxycodone 5 mg tablet 5 mg PO Q4H PRN Pain 05/03/23 06/08/23 05/03/23 History pantoprazole 40 mg tablet,delayed 40 mg PO DAILY 05/03/23 06/08/23 05/03/23 History release trazodone 50 mg tablet 50 mg PO BEDTIME 05/03/23 06/08/23 05/02/23 History acetaminophen 325 mg tablet 650 mg PO Q4H PRN Pain 06/08/23 06/08/23 Unknown History ascorbic acid (vitamin C) 250 mg 250 mg PO DAILY 06/08/23 06/08/23 Unknown History tablet cyclobenzaprine 5 mg tablet 5 mg PO TID 06/08/23 06/08/23 Unknown History ferrous sulfate 325 mg (65 mg 325 mg PO DAILY 06/08/23 06/08/23 Unknown History iron) tablet,delayed release furosemide 80 mg tablet 80 mg PO TUTHSA@0900 06/08/23 06/08/23 Unknown History hydralazine 10 mg tablet 10 mg PO TID 06/08/23 06/08/23 Unknown History lisinopril 20 mg tablet 20 mg PO DAILY 06/08/23 06/08/23 Unknown History nitroglycerin 0.4 mg sublingual 0.4 mg sublingual Q5M PRN Chest 06/08/23 06/08/23 Unknown History tablet Pain ondansetron 4 mg disintegrating 4 mg PO Q6H PRN Nausea 06/08/23 06/08/23 Unknown History tablet paroxetine HCl 30 mg tablet 30 mg PO DAILY 06/08/23 06/08/23 Unknown History <PAIGE Mckeon - Last Filed: 06/08/23 16:58> Physical Exam 2 Vital Signs and Narrative: Vital Signs: Last Vital Signs Pulse 62 06/08/23 12:40 Resp 17 06/08/23 12:40 BP 140/72 H 06/08/23 12:40 Pulse Ox 100 06/08/23 12:40 O2 Del Method Room Air 06/08/23 12:40 BMI result Body Mass Index 22.3 <PAIGE Mckeon - Last Filed: 06/08/23 16:58> General: AOx3, no acute distress Resp: CTA bilaterally, diminished bilaterally CVS: S1, S2, RRR, 3/6 murmur heard at left sternal border GI: +BS, NT, no distention Skin: No rash Neuro: Cranial nerves II-XII grossly intact bilaterally. Motor grossly intact bilaterally Extremities: No edema Psych: Appropriate affect <PAIGE Mckeon - Last Filed: 06/08/23 16:58> Results Labs CBC and Chem 7: 06/09/23 06:28 06/09/23 06:28 <PAIGE Mckeon - Last Filed: 06/08/23 16:58> Labs: Laboratory Results - last 24 hr 06/08/23 11:22 MCV 98.0 MCH 30.3 MCHC 30.9 L RDW 17.8 H Plt Count 216 D MPV 9.4 Immature Gran % (Auto) 1.2 H Neut % (Auto) 69.3 Lymph % (Auto) 17.2 L [place] % (Auto) 9.8 Eos % (Auto) 1.8 Baso % (Auto) 0.7 Lymph # (Auto) 1.5 [place] # (Auto) 0.9 Eos # (Auto) 0.2 Baso # (Auto) 0.1 Abs Immat Gran (auto) 0.11 H Absolute Neuts (auto) 6.2 Absolute Nucleated RBC 0.000 Nucleated RBC % (auto) 0.0 PT 15.9 H D INR 1.3 H D-Dimer High Sensitivty 616 Anion Gap 12 Estim Creat Clear Calc 8.1 Estimated GFR 9 Random Glucose 81 Calcium 8.1 L D Magnesium 2.2 Total Bilirubin 0.3 AST 13 ALT 5 Alkaline Phosphatase 91 B-Natriuretic Peptide 1215 H Total Protein 6.3 L Albumin 2.3 L <PAIGE Mckeon - Last Filed: 06/08/23 16:58> Imaging Radiologist's Impressions: Impressions Chest X-Ray 06/08/23 10:12 IMPRESSION: 1. Left-sided tunneled dialysis catheter terminating in the right atrium. 2. Radiopacity in the left lung base may reflect atelectasis versus evolving infectious/inflammatory etiology. 3. Interstitial prominence greatest along the left hilar region. 4. Trace left-sided pleural effusion. <PAIGE Mckeon - Last Filed: 06/08/23 16:58> Assessment and Plan (1) CHF (congestive heart failure): Status: Acute <PAIGE Mckeon - Last Filed: 06/08/23 16:58> Pt is a 73-year-old female with a PMH significant for?paroxysmal AFib on Eliquis, ESRD on hemodialysis M/W/, CAD s/p CABG, HFrEF, carotid stenosis, interstitial lung disease, and recently diagnosed adenocarcinoma of left lower lung who presents to the ED for evaluation of inspiratory pleuritic chest pain. Pt was treated with furosemide and morphine. Pt will be admitted to the hospital for treatment further evaluation of acute HFrEF exacerbation likely secondary to medication noncompliance. Acute HFrEF exacerbation Patient with increased SOB, pleuritic chest pain, elevated BNP, CXR and CTA of chest with evidence of pleural effusions With likely secondary to medication noncompliance; patient has not filled prescription for furosemide since February Furosemide 20 mg IV b.i.d. Follow Mag dylan, I/O Daily weights, low-salt diet Echocardiogram Cardiology consult Monitor on telemetry Elevated D-dimer D-dimer 616 CT of chest with no evidence of PE ESRD on HD M/W/F Last dialyzed yesterday Sodium slightly low at 130, otherwise lytes largely WNL HD while inpatient Nephrology consult Follow BMP Left lower lobe adenocarcinoma Oncology consult Paroxysmal AFib Continue carvedilol, Eliquis CAD Continue aspirin, statin Mood disorder Continue fluoxetine GERD PPI Full Code Attending:?Dr. Santana DVT Prophylaxis: On Eliquis Pt will require a hospitalization of at least two nights for treatment of?HFrEF exacerbation with IV diuretics and close monitoring.. <PAIGE Mckeon - Last Filed: 06/08/23 16:58> Pt is a 73-year-old female with a PMH significant for?paroxysmal AFib on Eliquis, ESRD on hemodialysis M/W/F, CAD s/p CABG, HFrEF, carotid stenosis, interstitial lung disease, and recently diagnosed adenocarcinoma of left lower lung who presents to the ED for evaluation of inspiratory pleuritic chest pain. Pt was treated with furosemide and morphine. Pt will be admitted to the hospital for treatment further evaluation of acute HFrEF exacerbation likely secondary to medication noncompliance. Acute HFrEF exacerbation Patient with increased SOB, pleuritic chest pain, elevated BNP, CXR and CTA of chest with evidence of pleural effusions With likely secondary to medication noncompliance; patient has not filled prescription for furosemide since February Furosemide 20 mg IV b.i.d. Follow lytes, Mag, I/O Daily weights, low-salt diet Echocardiogram Cardiology consult Monitor on telemetry Elevated D-dimer D-dimer 616 CT of chest with no evidence of PE ESRD on HD M/W/F Last dialyzed yesterday Sodium slightly low at 130, otherwise lytes largely WNL HD while inpatient Nephrology consult Follow BMP Left lower lobe adenocarcinoma Oncology consult Paroxysmal AFib Continue carvedilol, Eliquis CAD Continue aspirin, statin Mood disorder Continue fluoxetine GERD PPI Full Code Attending:?Dr. Santana DVT Prophylaxis: On Eliquis Pt will require a hospitalization of at least two nights for treatment of?HFrEF exacerbation with IV diuretics and close monitoring.. Addendum to history and physical by the advanced practice provider, PAIGE Velazquez I interviewed and examined the patient. I discussed their presentation and management with the DEBORAH. I reviewed the history and physical and agree with the documentation, with the following additions and corrections: 73yo F with pAF on apixaban, ESRD on HD MWF, CAD s/p CABG, HF with mildly reduced EF, carotid stenosis, ILD, and recently diagnosis of left lower lung adenoCA presenting with pleuritic chest pain for the last few days. Last HD yesterday. Multiple hospitalizations, most recently for L femur fx for which she underwent ORIF 04/22/23. CT of chest with moderate L and small R pleural effusions, LLL consolidation; suspect the latter is the mass. BNP 393->1215. Tn 6->6.1. Not hypoxic. Diminished air entry L lung. She was given furosemide and still makes urine. Question of furosemide non compliance as noted above. Plan admit to [facility], diurese + dialyze, update TTE. If pleural effusion does not improve, may need thoracentesis. <Fady Santana MD - Last Filed: 06/09/23 15:11> Time Spent With Patient Time: Total time managing care of this patient today ____ minutes. <PAIGE Mckeon - Last Filed: 06/08/23 16:58> Quality Stroke Does the patient have a stroke diagnosis?: No <PAIGE Mckeon - Last Filed: 06/08/23 16:58> VTE Prior VTE?: No <PAIGE Mckeon - Last Filed: 06/08/23 16:58> VTE Risk Level:: Medical - moderate - high <PAIGE Mckeon - Last Filed: 06/08/23 16:58> VTE Device Contraindication: Treatment Not Indicated <PAIGE Mckeon - Last Filed: 06/08/23 16:58> VTE Drug Contraindication: N/A - Med Ordered <PAIGE Mckeon - Last Filed: 06/08/23 16:58>
--- NOTE | 2023-06-08 13:52 | PHA.MEDREC ---
Pharmacy Consult ? Medication Reconciliation Pharmacy has completed the medication reconciliation. Patient came from [facility] with med list. Meche Aguilar, DiliaD
[2023-06-08] MEDS: 0.9 % Sodium Chloride 500 ML IV (13:58)
[2023-06-08 14:27] VITALS: BP 145/75; PULSE 64; RESP 11; O2SAT 98
[2023-06-08 15:22] LABS: Troponin-I High Sensitivity 6.1 ng/L (<3.5-17.0)
[2023-06-08] MEDS: iohexoL 350 MG/ML 100 ML INFUS..BTL 65 ML IV (15:28)
[2023-06-08 16:00] VITALS: BP 173/82; PULSE 67; RESP 20; TEMP 37.1; O2SAT 97
--- NOTE | 2023-06-08 16:21 | PC.NURSE ---
report given to KADIE Vasquez.
[2023-06-08] MEDS: oxyCODONE HCl Immed Release 5 MG TABLET PO ×2 (17:19→23:58)
[2023-06-08] MEDS: Sevelamer Carbonate Tablet 800 MG TABLET PO (17:19)
[2023-06-08 18:33] LABS: Procalcitonin 0.27 ng/mL
[2023-06-08] MEDS: Apixaban 2.5 MG TABLET PO (19:41)
[2023-06-08] MEDS: Cyclobenzaprine HCl 5 MG TABLET PO (19:41)
[2023-06-08] MEDS: traZODone HCL 50 MG TABLET PO (19:42)
[2023-06-08] MEDS: carvediloL 6.25 MG TABLET PO (19:42)
[2023-06-08] MEDS: hydrALAZINE HCl 10 MG TABLET PO (19:42)
[2023-06-08] MEDS: Gabapentin 300 MG CAPSULE PO (19:42)
[2023-06-08 20:00] VITALS: BP 156/72; PULSE 67; RESP 17; TEMP 37; O2SAT 98
--- NOTE | 2023-06-08 20:06 | HO.SKINPHOTO ---
Location:coccyx Category: Stage: Length: Width: Depth: cm Location: Category: Stage: Length: Width: Depth: cm Location: Category: Stage: Length: Width: Depth: cm Location: Category: Stage: Length: Width: Depth: cm Location: Category: Stage: Length: Width: Depth: cm Location: Category: Stage: Length: Width: Depth: cm
[2023-06-08] MEDS: 0.9 % Sodium Chloride Flush 3 ML SYRINGE IVFLUSH (23:59)
[2023-06-09] VITALS: BP 162/77; PULSE 60; RESP 18; TEMP 36.1; O2SAT 98
[2023-06-09 03:36] VITALS: BP 154/73; PULSE 68; RESP 18; TEMP 36.4
[2023-06-09] MEDS: oxyCODONE HCl Immed Release 5 MG TABLET PO ×2 (05:08→20:21)
[2023-06-09] MEDS: Omeprazole 20 MG CAPSULE.DR PO (05:08)
--- NOTE | 2023-06-09 07:00 | CA_ITS ---
Transthoracic Echocardiogram Patient (Last, First, Middle): Maryam Ramos A Gender: Female Date of : 1950 Age: 73 Procedure Date: 06/09/2023 Procedure Type: Transthoracic Echocardiogram Location: [facility] [place] Height: 154.94 cm Weight: 53.52 kg BSA: 1.51 m2 Heart Rate: bpm BP: 154 / 73 mmHg Lunch Truck Operator: ANDRES Barker MD: María GIBSON Bet Taker: Flavio Solis MD Symptoms: CHF exacerbation Study Quality: Technically Difficult ECG Rhythm: Sinus Conclusions: - 1. Normal LV ejection fraction 60 65% with at least grade 2 diastolic dysfunction 2. Severely dilated left atrium 3. At least moderate aortic stenosis 4. Normal RV systolic pressure 5. No gross pericardial effusion Findings Left Ventricle Normal left ventricular size, thickness, and systolic function. The visually estimated ejection fraction is between 60-65%. Spectral Doppler is indicative of a pseudonormal filling pattern. E/E prime ratio is >15, consistent with elevated filling pressures. Right Ventricle Normal right ventricular cavity size and systolic function. Atria The left atrium is severely dilated. Interatrial shunt cannot be excluded. The right atrium is mildly dilated. Aortic Valve There is moderate calcification of the aortic valve. There is moderate aortic valve stenosis. The peak aortic gradient is 36 mmHg.The mean gradient is 21 mmHg. There is trace (trivial) aortic valve regurgitation. Mitral Valve There is mild anterior and severe posterior mitral leaflet thickening. There is severe mitral annular calcification. There is mild mitral valve regurgitation. There is no mitral valve stenosis. Pulmonic Valve The pulmonic valve was not well visualized. Tricuspid Valve Normal tricuspid valve structure. There is trace tricuspid valve regurgitation. The right ventricular systolic pressure is normal. The right ventricular systolic pressure is 28 mmHg. Normal right atrial pressure. There is no evidence of pulmonary hypertension. Great Vessels All visible segments of the aorta are normal in size. The pulmonary artery was not well visualized. Venous The inferior vena cava is normal in size and collapses greater than 50% with inspiration. Pericardium/Pleural There is no evidence of pericardial effusion. Prior Study Comparison Changes noted compared to prior study dated: 11/01/2022. LV systolic function appears to be normal on this study Measurements 2D Linear Measurements IVSd: 1.10 0.6-0.9/0.6-1.0 cm LVIDd: 3.70 3.9-5.3/4.2-5.9 cm LVIDd Index: 2.45 2.4-3.2/2.2-3.1 cm/m2 LVIDs: 2.80 2.0-3.6 cm LVPWd: 1.10 0.7-1.1 cm Ao Root: 3.00 2.1-3.5 cm LA Diam: 4.10 2.7-3.8/3.0-4.0 cm LAIDs Index: 2.72 1.5-2.3 cm/m2 LV Mass: 160.92 67-162/88-224 g LV Mass Index: 106.57 43-95/49-115 g/m2 LVOT Diam: 2.00 3.0+(-)1.3 cm 2D Systolic Function EF 4C: 59.20 >55% EF 2C: 64.30 >55% EF BiP: 60.70 >55% Mitral Valve MV Pk E: 1.33 MV PK A: 1.03 MV Decel Time: 229.00 E/A: 1.30 E'Lateral: 10.10 E'Medial: 5.55 E/E' Med: 24.00 E/E' Lat: 13.20 PHT: 67.00 MVA PHT: 3.28 Decel Pondera: 5.83 Aortic Valve AoV Pk Nirmal: 3.00 AoV Mn Nirmla: 2.16 AoV VTI: 0.71 AoV Pk Grad: 36.00 Aov Mn Grad: 21.00 LAVERN Cont.VTI: 1.15 LVOT LVOT Pk Nirmal: 1.04 LVOT Mn Nirmal: 0.66 LVOT VTI: 0.26 LVOT Pk Grad: 4.00 LVOT Mn Grad: 2.00 LVOT Diam: 2.00 LVOT Area: 3.14 Diastolic Function MV Pk E: 1.33 MV Pk A: 1.03 E/A: 1.30 E'Medial: 5.55 E/E' Med: 24.00 E' Laterial: 10.10 E/E' Lat: 13.20 Right Ventricle TAPSE (mm): 22.00 TVS' Nirmal: 9.00 Tricuspid Valve TR Pk Nirmal: 2.48 TR Pk Grad: 25.00 RA Press: 3.00 RVSP: 28.00 Great Vessels Aorta Ao Root-2D: 3.00 2.0-3.7 cm Ao Asc: 2.90 2.1-3.4 cm Pulmonary Valve PV Pk Nirmal: 0.94 Peak PV Grad: 4.00 Updated in Other Vendor System with Status of Final Flavio Solis MD electronically signed on 06/09/2023 5:09:16 PM with status of Final
[2023-06-09 07:19] LABS: Hematocrit 28.6 % (37.0-47.0); Hemoglobin 8.8 g/dl (12.0-16.0); Mean Corpuscular HGB Conc 30.8 g/dl (31.0-35.0); Mean Corpuscular Hemoglobin 30.2 pg (27.0-33.0); Mean Corpuscular Volume 98.3 fL (80.0-98.0); Mean Platelet Volume 9.9 fL (9.4-12.3); Platelet Count 222 X10*3/uL (160-400); Red Blood Count 2.91 X10*6/uL (4.20-5.50); Red Cell Distribution Width 17.5 % (11.0-16.0); White Blood Count 7.2 X10*3/uL (4.8-10.8)
[2023-06-09 08:00] VITALS: BP 165/85; PULSE 65; RESP 16; TEMP 36.8; O2SAT 96
[2023-06-09 08:25] LABS: Anion Gap 15 (12-20); Blood Urea Nitrogen 37 mg/dL (9-16); Carbon Dioxide 21 mmol/L (22-29); Chloride 99 mmol/L (96-108); Creatinine Clr Calc Pharmacy 7.7; Estimated Glomerular Filt Rate 9; Glucose Random 72 mg/dL (60-115); Magnesium 2.2 mg/dL (1.6-2.6); Potassium 5.5 mmol/L (3.3-5.1); Sodium 129 mmol/L (135-145)
[2023-06-09] MEDS: Aspirin 81 MG TAB.CHEW PO (08:48)
[2023-06-09] MEDS: Sevelamer Carbonate Tablet 800 MG TABLET PO ×3 (08:49→16:28)
[2023-06-09] MEDS: hydrALAZINE HCl 10 MG TABLET PO ×3 (08:49→20:20)
[2023-06-09] MEDS: lisinopriL 20 MG TABLET PO (08:49)
[2023-06-09] MEDS: Atorvastatin Calcium 80 MG TABLET PO (08:49)
[2023-06-09] MEDS: Ascorbic Acid 250 MG TABLET PO (08:49)
[2023-06-09] MEDS: Apixaban 2.5 MG TABLET PO ×2 (08:49→20:21)
[2023-06-09] MEDS: FLUoxetine HCl 20 MG CAPSULE PO (08:49)
[2023-06-09] MEDS: PARoxetine HCL 30 MG TABLET PO (08:50)
[2023-06-09] MEDS: carvediloL 6.25 MG TABLET PO ×2 (08:50→20:20)
[2023-06-09] MEDS: Docusate Sodium 100 MG CAPSULE PO (08:50)
[2023-06-09] MEDS: Ferrous Sulfate 324 MG TABLET.DR PO (08:50)
[2023-06-09] MEDS: Cyclobenzaprine HCl 5 MG TABLET PO ×3 (08:50→20:20)
[2023-06-09] MEDS: 0.9 % Sodium Chloride Flush 3 ML SYRINGE IVFLUSH (08:51)
[2023-06-09] MEDS: Furosemide 20 MG/2 ML VIAL IVPUSH ×2 (08:51→18:50)
[2023-06-09 10:49] VITALS: BMI 22.3
[2023-06-09 10:50] LABS: Influenza A PCR NEGATIVE (Negative); Influenza B PCR NEGATIVE (Negative); Resp Syncy Virus RNA Qual PCR NEGATIVE (Negative); SARS COV2 PCR INHOUSE POSITIVE (Negative)
--- NOTE | 2023-06-09 10:54 | MHC.CLN ---
PT WITH INCREASED NUTRITION RISK R/T PRESSURE INJURY DIET RX: LOW PHOS LOW K+-RECOMMEND ADDING 2GM NA DIET R/T ESRD ON HD RECOMMEND ADDING ENSURE CLEAR TID TO PROMOTE WOUND HEALING SUPP TO PROVIDE 720KCALS, 24G PROTEIN (SUPP IS RENAL FRIENDLY) MONITOR PO INTAKE AND ENCOURAGE SUPPLEMENTS SEE ALSO FULL CLINICAL NUTRITION ASSESSMENT
[2023-06-09 11:34] LABS: Lactate Dehydrogenase 213 U/L (122-220)
[2023-06-09 12:13] LABS: Procalcitonin 0.22 ng/mL
[2023-06-09 12:35] LABS: Ferritin 2350 ng/mL (10-250)
--- NOTE | 2023-06-09 13:19 | P.CNHO_ITS ---
Subjective - Subjective Chief complaint: None reported Patient: known to practice within the last 3 years Consult date: 06/09/23 Primary Care Provider: Shukri Schneider MD Medical Summary: Diagnosis: Left lung Adenocarcinoma 03/2023 Past medical history significant for chronic end-stage renal disease, on hemodialysis, coronary artery disease, status post CABG, CHF and paroxysmal atrial fibrillation was diagnosed with left lower lobe lung mass in March 2023. She had a previous CT chest in September at [facility], she was told of a lung mass at that time. She is a chronic smoker, she did quit for over 30 years but resumed smoking in the last few years. She has no complaints such as new onset chest pain, cough or shortness of breath. She was recently admitted for extreme fatigue after dialysis, workup revealed lung mass. She denies loss of appetite or weight loss. No headache or dizziness. No change in bowel habits. HPI - Consult Narrative Reason for consult: Lung cancer Narrative: Maryam Ramos is a 73 year old female with history of lung cancer who is currently admitted with symptoms of shortness of breath. Patient was admitted for probable congestive heart failure. She was just diagnosed with COVID-[address] angio chest revealed left lower lobe consolidation/infiltrate. At this time she has no new complaints. She feels a little better. She is aware that she has missed appointments at [facility] CT surgery. [facility] Medical History: Medical History (Last Reviewed 06/08/23 @ 14:50 by PAIGE Mckeon) Anemia Aortic stenosis Asthmatic bronchitis Atherosclerotic cardiovascular disease CAD (coronary artery disease) CKD (chronic kidney disease), stage IV Depression ESRD (end stage renal disease) GERD (gastroesophageal reflux disease) History of DVT (deep vein thrombosis) History of ectopic History of non-ST elevation myocardial infarction (NSTEMI) Onset Date: ~12/2020 Hypertension Interstitial lung disease Left femoral shaft fracture Osteopenia PAF (paroxysmal atrial fibrillation) Onset Date: ~12/2020 Family History: Family History (Last Reviewed 06/08/23 @ 14:50 by PAIGE Mckeon) Father No problems noted. Mother Myocardial infarction Surgical History: Surgical History (Last Reviewed 06/08/23 @ 14:50 by PAIGE Mckeon) History of carpal tunnel release of both wrists History of colonoscopy History of coronary artery bypass graft x 3 History of left knee replacement History of lung biopsy History of rectopexy History of total replacement of right shoulder joint S/P arteriovenous (AV) fistula creation Social History: Social History (Last Reviewed 06/08/23 @ 14:50 by PAIGE Mckeon) Living Situation History: Household Members: None Housing: Other Housing Other:: rehab Do you presently have visiting nurse or other home services: No Alcohol History Details: 1. How often do you have a drink containing alcohol?: a. Never AUDIT-C Alcohol total score: 0 Currently Displaying Signs/Symptoms of Alcohol Withdrawal: No Tobacco History: Patient Tobacco Use Status: Never used Tobacco Tobacco use type: Cigarette Cigarettes Per Day: 4 Second Hand Smoke Exposure: No Substance Use History: Use of substances other than those prescribed or required for medical reasons : No Currently Displaying Signs/Symptoms of Drug Intoxication Withdrawal: No Domestic Abuse History: Have you been hit, kicked, punched, or otherwise hurt by someone within the past year? If so, by whom?: No Do you feel safe in your current relationship?: Yes Is there a partner from a previous relationship who is making you feel unsafe now?: No Are you made to feel afraid or neglected: No Advance Directives: Advance Directives: Yes Advance Directives on File: Yes Advance Directives Date on File: 03/10/23 Homicidal Assessment: Do you have thoughts of harming others: None Do you have a plan to hurt others: No Plan Nutrition Assessment: Recently lost weight without trying: No Eating poorly because of decreased appetite: No Nutrition Risks: No Nutritional Risk Patient : No : No Poor oral hygiene: No Occupation Assessmet: service: No Current occupational status: retired Current occupation: young,right handed Home Medications and Allergies Current Medications: Current Medications Acetaminophen (Acetaminophen 325 Mg Tablet) 650 mg PO Q6H PRN PRN Reason: Pain, Mild (Pain Scale 1-3) Apixaban (Apixaban 2.5 Mg Tablet) 2.5 mg PO BID [facility] Last Admin: 06/09/23 08:49 Dose: 2.5 mg Ascorbic Acid (Ascorbic Acid 250 Mg Tablet) 250 mg PO DAILY [facility] Last Admin: 06/09/23 08:49 Dose: 250 mg Aspirin (Aspirin 81 Mg Tab.Chew) 81 mg PO DAILY [facility] Last Admin: 06/09/23 08:48 Dose: 81 mg Atorvastatin Calcium (Atorvastatin Calcium 80 Mg Tablet) 80 mg PO DAILY [facility] Last Admin: 06/09/23 08:49 Dose: 80 mg Benzonatate (Benzonatate 100 Mg Capsule) 100 mg PO TID PRN PRN Reason: Cough Carvedilol (Carvedilol 6.25 Mg Tablet) 6.25 mg PO BID [facility]; Protocol Last Admin: 06/09/23 08:50 Dose: 6.25 mg Cyclobenzaprine HCl (Cyclobenzaprine Hcl 5 Mg Tablet) 5 mg PO TID [facility] Last Admin: 06/09/23 08:50 Dose: 5 mg Docusate Sodium (Docusate Sodium 100 Mg Capsule) 100 mg PO DAILY PRN PRN Reason: Constipation Docusate Sodium (Docusate Sodium 100 Mg Capsule) 100 mg PO DAILY [facility] Last Admin: 06/09/23 08:50 Dose: 100 mg Ferrous Sulfate (Ferrous Sulfate 324 Mg Tablet.) 324 mg PO DAILY [facility] Last Admin: 06/09/23 08:50 Dose: 324 mg Fluoxetine HCl (Fluoxetine Hcl 20 Mg Capsule) 20 mg PO DAILY [facility] Last Admin: 06/09/23 08:49 Dose: 20 mg Furosemide (Furosemide 20 Mg/2 Ml Vial) 20 mg IVPUSH BID@0900,1800 [facility]; Protocol Last Admin: 06/09/23 08:51 Dose: 20 mg Gabapentin (Gabapentin 300 Mg Capsule) 300 mg PO BEDTIME [facility] Last Admin: 06/08/23 19:42 Dose: 300 mg Hydralazine HCl (Hydralazine Hcl 10 Mg Tablet) 10 mg PO TID [facility]; Protocol Last Admin: 06/09/23 08:49 Dose: 10 mg Remdesivir 200 mg/ Sodium (Chloride) 210 mls @ 105 mls/hr IV ONCE ONE Stop: 06/09/23 13:59 Remdesivir 100 mg/ Sodium (Chloride) 230 mls @ 115 mls/hr IV Q24H [facility] Stop: 06/13/23 13:59 Lisinopril (Lisinopril 20 Mg Tablet) 20 mg PO DAILY [facility]; Protocol Last Admin: 06/09/23 08:49 Dose: 20 mg Melatonin (Melatonin 3 Mg Tablet) 6 mg PO BEDTIME PRN PRN Reason: Insomnia Nitroglycerin (Nitroglycerin 0.4 Mg Tab.Subl) 0.4 mg SUBLINGUAL Q5M PRN PRN Reason: Chest Pain Omeprazole (Omeprazole 20 Mg Capsule.) 20 mg PO DAILY@0630 [facility] Last Admin: 06/09/23 05:08 Dose: 20 mg Ondansetron HCl (Ondansetron Hcl 4 Mg/2 Ml Vial) 4 mg IVPUSH Q8H PRN PRN Reason: Nausea and Vomiting Oxycodone HCl (Oxycodone Hcl Immed Release 5 Mg Tablet) 5 mg PO Q4H PRN PRN Reason: Pain, Moderate(Pain Scale 4-6) Last Admin: 06/09/23 05:08 Dose: 5 mg Paroxetine HCl (Paroxetine Hcl 30 Mg Tablet) 30 mg PO DAILY [facility] Last Admin: 06/09/23 08:50 Dose: 30 mg Sevelamer Carbonate (Sevelamer Carbonate Tablet 800 Mg Tablet) 800 mg PO TIDWM [facility] Last Admin: 06/09/23 08:49 Dose: 800 mg Sodium Chloride (0.9 % Sodium Chloride Flush 3 Ml Syringe) [facility] Last Admin: 06/09/23 08:51 Dose: 3 ml Trazodone HCl (Trazodone Hcl 50 Mg Tablet) 50 mg PO BEDTIME [facility] Last Admin: 06/08/23 19:42 Dose: 50 mg Home Medications Medication Instructions Recorded Confirmed Type gabapentin 300 mg capsule 300 mg PO BEDTIME 11/09/22 06/08/23 History aspirin 81 mg chewable tablet 81 mg PO DAILY 03/10/23 06/08/23 History fluoxetine 20 mg capsule 20 mg PO DAILY 03/15/23 06/08/23 History sevelamer carbonate 800 mg tablet 800 mg PO TIDWM 04/20/23 06/08/23 History atorvastatin 80 mg tablet 80 mg PO DAILY 05/03/23 06/08/23 History carvedilol 6.25 mg tablet 6.25 mg PO BID 05/03/23 06/08/23 History docusate sodium 100 mg tablet 100 mg PO DAILY 05/03/23 06/08/23 History oxycodone 5 mg tablet 5 mg PO Q4H PRN Pain 05/03/23 06/08/23 History pantoprazole 40 mg tablet,delayed 40 mg PO DAILY 05/03/23 06/08/23 History release trazodone 50 mg tablet 50 mg PO BEDTIME 05/03/23 06/08/23 History acetaminophen 325 mg tablet 650 mg PO Q4H PRN Pain 06/08/23 06/08/23 History ascorbic acid (vitamin C) 250 mg 250 mg PO DAILY 06/08/23 06/08/23 History tablet cyclobenzaprine 5 mg tablet 5 mg PO TID 06/08/23 06/08/23 History ferrous sulfate 325 mg (65 mg 325 mg PO DAILY 06/08/23 06/08/23 History iron) tablet,delayed release furosemide 80 mg tablet 80 mg PO TUTHSA@0900 06/08/23 06/08/23 History hydralazine 10 mg tablet 10 mg PO TID 06/08/23 06/08/23 History lisinopril 20 mg tablet 20 mg PO DAILY 06/08/23 06/08/23 History nitroglycerin 0.4 mg sublingual 0.4 mg sublingual Q5M PRN Chest 06/08/23 06/08/23 History tablet Pain ondansetron 4 mg disintegrating 4 mg PO Q6H PRN Nausea 06/08/23 06/08/23 History tablet paroxetine HCl 30 mg tablet 30 mg PO DAILY 06/08/23 06/08/23 History Allergies Allergy/AdvReac Type Severity Reaction Status Date / Time atenolol [ATENOLOL] Allergy Severe DIFF Verified 06/08/23 10:15 BREATHING, heart races. doxycycline Allergy Severe Anaphylaxis Verified 06/08/23 10:15 duloxetine Allergy Severe Anaphylaxis Verified 06/08/23 10:15 amphetamine [Adderall] AdvReac Severe shortness Verified 06/08/23 10:15 of breath dextroamphetamine [Adderall] AdvReac Severe shortness Verified 06/08/23 10:15 of breath Physical Exam Vital signs: Vital Signs Temp 98.2 F 06/09/23 08:00 Pulse 65 06/09/23 08:00 Resp 16 06/09/23 08:00 BP 165/85 H 06/09/23 08:00 Pulse Ox 96 06/09/23 08:00 O2 Del Method Room Air 06/09/23 08:00 Intake & Output 06/08/23 06/09/23 06/09/23 18:59 06:59 18:59 Intake Total 500 / 500 0 / 500 Output Total 0 / 0 Balance 500 / 500 0 / 500 Urine Output (Average ml/kg/hr) 0.00 0.00 Intake: Intake, Oral Amount 0 / 0 Intake, IV Amount 500 / 500 0.9 % Sodium Chloride 500 ml @ 500 / 500 500 mls/hr IV .Q1H [facility] Rx#: [id number] Output: Output, Urine Amount 0 / 0 Other: Number of Incontinent Voids 1 Number of Bowel Movements 1 1 Last Bowel Movement 06/08/23 06/08/23 Stool Incontinent Incontinent Stool Amount Large Large Stool Color Brown Black (Tarry) Stool Consistency Formed Weight 53.524 kg 53.524 kg Weight 53.524 kg - Constitutional Present: no acute distress, chronically ill appearing - Routine HEENT Exam Eye: Present: normal appearance, PERRL - Routine Neck Exam Absent: lymphadenopathy - Routine Respiratory Exam Absent: accessory muscle use - Routine Cardiovascular Exam Cardiovascular: Present: S1, S2 Hem/Onc Consult Result - Labs CBC & Chem 7: 06/09/23 06:28 06/09/23 06:28 Labs: Short CBC 06/09/23 Range/Units 06:28 WBC 7.2 (4.8-10.8) X10*3/uL Hgb 8.8 L (12.0-16.0) g/dl Hct 28.6 L (37.0-47.0) % Plt Count 222 (160-400) X10*3/uL BMP 06/09/23 06:28 Sodium 129 L Potassium 5.5 H Chloride 99 Carbon Dioxide 21 L BUN 37 H Creatinine 4.73 H* Calcium 8.0 L Assessment and Plan Patient Active problem list reviewed?: Yes (1) Non-small cell cancer of left lung Status: Chronic Assessment and plan: 1. This is a 73-year-old woman with left lung cancer diagnosed in March 2023. She had a CT-guided biopsy of left lower lobe lung mass which revealed moderately differentiated adenocarcinoma, favor lung primary. IHC negative for TTF1, positive for CK7 and napsin. NGS testing revealed negative for PDL1 expression, TPS/CPS less than 1%. Insufficient tissue for additional tests. Clinical stage IB PET-CT performed 04/18/2023 showed left lower lobe lung mass. 3.8cm with SUV 17 consistent with malignancy. Multifocal 5 mm or smaller bilateral lung nodules do not show activity. Small focus of FDG avidity in the region of cecum without CT correlate, colonoscopy/direct visualization recommended. Solitary focus of FDG avidity in the left aorta pulmonary window may represent small FDG avid lymph node versus artifact arising from adjacent surgical clips. She had an appointment with Dr. Lalito Baker, CT surgeon at [facility] for 05/30/2023. Unfortunately she has had a series of hospitalizations at different institutions since a fall and fracture of femur in April. She was not able to keep her appointment. I spoke to both patient and daughter about PET scan as well as the fact that she needs to make a follow-up appointment with CT surgeon at [facility]. She is not a good candidate for systemic therapy. Besides surgery upfront, possibility of radiation therapy was also discussed. She is currently admitted for shortness of breath, she is COVID positive. I thank you for this referral. - Time Spent With Patient Time Spent with Patient (in minutes): 15
--- NOTE | 2023-06-09 13:28 | MHC.CM.PN ---
IMM 06/09. Pt Covid+. Pt came from [facility] for STR, she also goes to [facility] in [place] 3x/wk. Transport via [facility]. Uses cane/walker. HCP on file and verified. PCP: Dr. Shukri Schneider
[2023-06-09] MEDS: Remdesivir 200 MG in 0.9 % Sodium Chloride 210 ML 105 MG IV (13:58)
--- NOTE | 2023-06-09 15:11 | P.PNIM_ITS ---
Subjective Subjective Date of Service: 06/09/23 Interval History: still has pleuritic chest pain to HD today positive for Covid Review of Systems Review of Systems: Yes all other systems are reviewed and are negative Physical Exam 2 Vital Signs: Vital Signs: Last Vital Signs Temp 98.2 F 06/09/23 08:00 Pulse 65 06/09/23 08:00 Resp 16 06/09/23 08:00 BP 165/85 H 06/09/23 08:00 Pulse Ox 96 06/09/23 08:00 O2 Del Method Room Air 06/09/23 08:00 BMI result Body Mass Index 22.3 Gen: in no acute distress HEENT: sclera anicteric, moist mucus membranes Neck: supple, L tunneled subclavian HD catheter Lungs: diminished L base Heart: regular rate and rhythm, no murmurs Abd: soft, non-tender, non-distended Ext: no edema Skin: warm/well-perfused Neuro: alert and oriented x3, no focal findings Psych: appropriate affect Objective Data Active Medications Acetaminophen (Acetaminophen 325 Mg Tablet) 650 mg PO Q6H PRN PRN Reason: Pain, Mild (Pain Scale 1-3) Apixaban (Apixaban 2.5 Mg Tablet) 2.5 mg PO BID [facility] Last Admin: 06/09/23 08:49 Dose: 2.5 mg Documented By: ANDREWS Ascorbic Acid (Ascorbic Acid 250 Mg Tablet) 250 mg PO DAILY [facility] Last Admin: 06/09/23 08:49 Dose: 250 mg Documented By: ANDREWS Aspirin (Aspirin 81 Mg Tab.Chew) 81 mg PO DAILY [facility] Last Admin: 06/09/23 08:48 Dose: 81 mg Documented By: ANDREWS Atorvastatin Calcium (Atorvastatin Calcium 80 Mg Tablet) 80 mg PO DAILY [facility] Last Admin: 06/09/23 08:49 Dose: 80 mg Documented By: ANDREWS Benzonatate (Benzonatate 100 Mg Capsule) 100 mg PO TID PRN PRN Reason: Cough Carvedilol (Carvedilol 6.25 Mg Tablet) 6.25 mg PO BID [facility]; Protocol Last Admin: 06/09/23 08:50 Dose: 6.25 mg Documented By: ANDREWS Cyclobenzaprine HCl (Cyclobenzaprine Hcl 5 Mg Tablet) 5 mg PO TID [facility] Last Admin: 06/09/23 08:50 Dose: 5 mg Documented By: ANDREWS Docusate Sodium (Docusate Sodium 100 Mg Capsule) 100 mg PO DAILY PRN PRN Reason: Constipation Docusate Sodium (Docusate Sodium 100 Mg Capsule) 100 mg PO DAILY [facility] Last Admin: 06/09/23 08:50 Dose: 100 mg Documented By: ANDREWS Ferrous Sulfate (Ferrous Sulfate 324 Mg Tablet.) 324 mg PO DAILY [facility] Last Admin: 06/09/23 08:50 Dose: 324 mg Documented By: ANDREWS Fluoxetine HCl (Fluoxetine Hcl 20 Mg Capsule) 20 mg PO DAILY [facility] Last Admin: 06/09/23 08:49 Dose: 20 mg Documented By: ANDREWS Furosemide (Furosemide 20 Mg/2 Ml Vial) 20 mg IVPUSH BID@0900,1800 [facility]; Protocol Last Admin: 06/09/23 08:51 Dose: 20 mg Documented By: ANDREWS Gabapentin (Gabapentin 300 Mg Capsule) 300 mg PO BEDTIME [facility] Last Admin: 06/08/23 19:42 Dose: 300 mg Documented By: AGUS Hydralazine HCl (Hydralazine Hcl 10 Mg Tablet) 10 mg PO TID [facility]; Protocol Last Admin: 06/09/23 08:49 Dose: 10 mg Documented By: ANDREWS Remdesivir 100 mg/ Sodium (Chloride) 230 mls @ 115 mls/hr IV Q24H [facility] Stop: 06/13/23 13:59 Lisinopril (Lisinopril 20 Mg Tablet) 20 mg PO DAILY [facility]; Protocol Last Admin: 06/09/23 08:49 Dose: 20 mg Documented By: ANDREWS Melatonin (Melatonin 3 Mg Tablet) 6 mg PO BEDTIME PRN PRN Reason: Insomnia Nitroglycerin (Nitroglycerin 0.4 Mg Tab.Subl) 0.4 mg SUBLINGUAL Q5M PRN PRN Reason: Chest Pain Omeprazole (Omeprazole 20 Mg Capsule.) 20 mg PO DAILY@0630 [facility] Last Admin: 06/09/23 05:08 Dose: 20 mg Documented By: CHIQUITA Ondansetron HCl (Ondansetron Hcl 4 Mg/2 Ml Vial) 4 mg IVPUSH Q8H PRN PRN Reason: Nausea and Vomiting Oxycodone HCl (Oxycodone Hcl Immed Release 5 Mg Tablet) 5 mg PO Q4H PRN PRN Reason: Pain, Moderate(Pain Scale 4-6) Last Admin: 06/09/23 05:08 Dose: 5 mg Documented By: CHIQUITA Paroxetine HCl (Paroxetine Hcl 30 Mg Tablet) 30 mg PO DAILY [facility] Last Admin: 06/09/23 08:50 Dose: 30 mg Documented By: BROMatthew Sevelamer Carbonate (Sevelamer Carbonate Tablet 800 Mg Tablet) 800 mg PO TIDWM [facility] Last Admin: 06/09/23 13:58 Dose: 800 mg Documented By: ANDREWS Sodium Chloride (0.9 % Sodium Chloride Flush 3 Ml Syringe) 3 ml IVFLUSH QSHIFT [facility] Last Admin: 06/09/23 08:51 Dose: 3 ml Documented By: ANDREWS Trazodone HCl (Trazodone Hcl 50 Mg Tablet) 50 mg PO BEDTIME [facility] Last Admin: 06/08/23 19:42 Dose: 50 mg Documented By: PAULIE Labs 06/09/23 06:28 06/09/23 06:28 Labs: Laboratory Results - last 24 hr 06/08/23 06/09/23 06/09/23 14:53 06:28 09:06 MCV 98.3 H MCH 30.2 MCHC 30.8 L RDW 17.5 H Plt Count 222 MPV 9.9 Absolute Nucleated RBC 0.000 Nucleated RBC % (auto) 0.0 Anion Gap 15 Estim Creat Clear Calc 7.7 Estimated GFR 9 Random Glucose 72 Calcium 8.0 L Magnesium 2.2 Ferritin 2350 H Lactate Dehydrogenase 213 Procalcitonin 0.27 0.22 Influenza Type A (PCR) NEGATIVE Influenza Type B (PCR) NEGATIVE RSV RNA Qual (PCR) NEGATIVE SARS-CoV-2 RNA (RT-PCR) POSITIVE A Assessment and Plan (1) CHF (congestive heart failure): Status: Acute Assessment and Plan: 73yo F with pAF on apixaban, ESRD on HD MWF, CAD s/p CABG, HF with mildly reduced EF, carotid stenosis, ILD, and recently diagnosis of left lower lung adenoCA presenting with pleuritic chest pain for a few days admitted for CHF exacerbation, also found to have Covid-19 infection Covid-19 infection with high risk for decompensation - not hypoxic; will avoid dexamethasone for now - give remdesivir x5d - check inflammatory markers acute exacerbation of chronic HF with mildly reduced EF - continue furosemide, monitor lytes + BNP, update TTE - HD as below - conitnue carvedilol + lisinopril ESRD on HD - continue HD MWF + sevelamer hyperK, mild - HD today, recheck lytes in AM LLL adenoCA - Heme-Onc outpt f/u paroxysmal AF - continue carvedilol for RC, apixaban for AC CAD - continue ASA + statin + b-alessia + JOAQUINA-I mood disorder - continue trazodone + paroxetine GERD - PPI VTE ppx - LMWH dispo - TBD In my clinical judgment, the patient requires continued inpatient hospitalization for the following reasons: diuresis Time Spent With Patient Time: Total time managing care of this patient today __45__ minutes. Quality Stroke Does the patient have a stroke diagnosis?: No VTE Prior VTE?: No VTE Risk Level:: Medical - moderate - high VTE Device Contraindication: Treatment Not Indicated VTE Drug Contraindication: N/A - Med Ordered
[2023-06-09 16:00] VITALS: BP 162/80; PULSE 71; RESP 17; TEMP 36.3; O2SAT 95
--- NOTE | 2023-06-09 16:00 | HO.WOUND ---
Wound Consult: Initial 73yr old [place] [facility] [place]08[place]23 14:15 - See progress notes and H&P for detailed history. Arrival to bedside pt was agreeable to assessment - she reports she has had this wound since her Left Leg fracture - she reports she has mild discomfort but it is getting better. Coccyx / Sacrum Etiology: Stage 2 Pressure Injury POA (Present on Admission) Measurements: 1.5cm x 1 cm x 0.1cm Wound Bed: dry pink tissue noted to wound bed Drainage / Odor: none noted Edges: ? irregular Dilcia wound: ? Red blanchable tissue, No Induration, No Fluctuance noted Pain: Mild discomfort reported by pt Goals of Treatment: ? Moist wound healing with Triad and protect from friction with Foam dressing Recommendations: 1. Turn and Reposition every 2 hours and as needed for patient comfort consider use of wedges available in the storeroom. 2. Off Load all bony prominences with use of pillows, wedges and heel boots. 3. Monitor for incontinence and moisture control. 4. Provide adequate and supplemental nutrition. 5. Coccyx / Sacrum - Off Load Pressure with use of pilllow and or wedges. Cleanse with NS, Pat dry. Apply thin layer to Triad to wound bed, cover with Foam dressing. Change Daily. Re-consult wound care Nurse for wound deterioration or wound changes.
[2023-06-09 19:16] VITALS: BP 134/64; PULSE 73; RESP 16; TEMP 36.5; O2SAT 97
[2023-06-09] MEDS: Gabapentin 300 MG CAPSULE PO (20:20)
[2023-06-09] MEDS: traZODone HCL 50 MG TABLET PO (20:21)
--- NOTE | 2023-06-09 22:48 | P.PNNP_ITS ---
Subjective Subjective Date of Service: 06/09/23 Interval history: Seen on HD positive for Covid Physical Exam 2 Vital Signs: Vital Signs: Last Vital Signs Temp 97.7 F 06/09/23 19:16 Pulse 73 06/09/23 19:16 Resp 16 06/09/23 19:16 BP 134/64 06/09/23 19:16 Pulse Ox 97 06/09/23 19:16 O2 Del Method Room Air 06/09/23 19:16 BMI result Body Mass Index 22.3 Gen: in no acute distress HEENT: sclera anicteric, moist mucus membranes Neck: supple, L tunneled subclavian HD catheter Lungs: diminished L base Heart: regular rate and rhythm, no murmurs Abd: soft, non-tender, non-distended Ext: no edema Skin: warm/well-perfused Neuro: alert and oriented x3, no focal findings Psych: appropriate affect Objective Data Labs 06/09/23 06:28 06/09/23 06:28 Labs: Laboratory Results - last 24 hr 06/09/23 06/09/23 06:28 09:06 WBC 7.2 RBC 2.91 L Hgb 8.8 L Hct 28.6 L MCV 98.3 H MCH 30.2 MCHC 30.8 L RDW 17.5 H Plt Count 222 MPV 9.9 Absolute Nucleated RBC 0.000 Nucleated RBC % (auto) 0.0 Sodium 129 L Potassium 5.5 H Chloride 99 Carbon Dioxide 21 L Anion Gap 15 BUN 37 H Creatinine 4.73 H* Estim Creat Clear Calc 7.7 Estimated GFR 9 Random Glucose 72 Calcium 8.0 L Magnesium 2.2 Ferritin 2350 H Lactate Dehydrogenase 213 Procalcitonin 0.22 Influenza Type A (PCR) NEGATIVE Influenza Type B (PCR) NEGATIVE RSV RNA Qual (PCR) NEGATIVE SARS-CoV-2 RNA (RT-PCR) POSITIVE A Procedures Date of Service Date of Service: 06/09/23 Assessment & Plan Assessment and plan (1) Hemodialysis patient: Status: Acute (2) ESRD (end stage renal disease): Status: Inactive Plan Elderly woman with ESRD on maintenance hemodialysis. Admitted COVID Plan: - Continue HD today - Vol removal as tolerated - COVID management as per medical team - Continue renagel d/w medical team Time Spent With Patient Time: Total time managing care of this patient today ____ minutes. Progress Note: Quality Stroke Does the patient have a stroke diagnosis?: No
[2023-06-09 23:55] VITALS: BP 154/79; PULSE 73; RESP 19; TEMP 36.6
[2023-06-10] MEDS: 0.9 % Sodium Chloride Flush 3 ML SYRINGE IVFLUSH ×4 (01:20→21:49)
[2023-06-10 04:00] VITALS: BP 164/77; PULSE 69; RESP 19; TEMP 36.8; O2SAT 97
[2023-06-10] MEDS: Omeprazole 20 MG CAPSULE.DR PO (06:14)
[2023-06-10 07:05] LABS: Hematocrit 26.4 % (37.0-47.0); Hemoglobin 8.2 g/dl (12.0-16.0); Mean Corpuscular HGB Conc 31.1 g/dl (31.0-35.0); Mean Corpuscular Volume 96.7 fL (80.0-98.0); Platelet Count 177 X10*3/uL (160-400); Red Blood Count 2.73 X10*6/uL (4.20-5.50); Red Cell Distribution Width 17.1 % (11.0-16.0); White Blood Count 7.3 X10*3/uL (4.8-10.8)
[2023-06-10 07:28] LABS: B Type Natriuretic Peptide 1223 pg/mL (<100)
[2023-06-10 07:30] LABS: Anion Gap 14 (12-20); Blood Urea Nitrogen 19 mg/dL (9-16); C Reactive Protein 3.53 mg/dL (< or = 0.50); Calcium 8.3 mg/dL (8.4-10.2); Carbon Dioxide 20 mmol/L (22-29); Chloride 99 mmol/L (96-108); Creatinine Clr Calc Pharmacy 11.1; Estimated Glomerular Filt Rate 14; Glucose Random 73 mg/dL (60-115); Potassium 4.8 mmol/L (3.3-5.1); Sodium 128 mmol/L (135-145)
[2023-06-10 07:44] VITALS: BP 140/75; PULSE 71; RESP 18; TEMP 36.8; O2SAT 98
[2023-06-10] MEDS: Atorvastatin Calcium 80 MG TABLET PO (09:22)
[2023-06-10] MEDS: Aspirin 81 MG TAB.CHEW PO (09:22)
[2023-06-10] MEDS: Apixaban 2.5 MG TABLET PO ×2 (09:22→21:48)
[2023-06-10] MEDS: lisinopriL 20 MG TABLET PO (09:22)
[2023-06-10] MEDS: Ascorbic Acid 250 MG TABLET PO (09:22)
[2023-06-10] MEDS: carvediloL 6.25 MG TABLET PO ×2 (09:23→21:48)
[2023-06-10] MEDS: PARoxetine HCL 30 MG TABLET PO (09:23)
[2023-06-10] MEDS: hydrALAZINE HCl 10 MG TABLET PO ×3 (09:23→21:47)
[2023-06-10] MEDS: Cyclobenzaprine HCl 5 MG TABLET PO ×3 (09:23→21:48)
[2023-06-10] MEDS: Ferrous Sulfate 324 MG TABLET.DR PO (09:24)
[2023-06-10] MEDS: Furosemide 20 MG/2 ML VIAL IVPUSH ×2 (09:24→16:32)
[2023-06-10] MEDS: Docusate Sodium 100 MG CAPSULE PO (09:24)
[2023-06-10] MEDS: FLUoxetine HCl 20 MG CAPSULE PO (09:24)
[2023-06-10] MEDS: Sevelamer Carbonate Tablet 800 MG TABLET PO ×3 (09:24→16:29)
[2023-06-10] MEDS: oxyCODONE HCl Immed Release 5 MG TABLET PO (09:33)
--- NOTE | 2023-06-10 11:31 | HO.PM.IMPN ---
Subjective Subjective Date of Service: 06/10/23 Interval History: Pleurisy improved Pt states she [place] [facility] [place] reviewed, positive 05/27/23; thus ended isolation 06/06/23 Dialyzed yesterday Review of Systems Review of Systems: Yes all other systems are reviewed and are negative Physical Exam Vital Signs: Vital Signs: Last Vital Signs Temp 98.3 F 06/10/23 07:44 Pulse 71 06/10/23 07:44 Resp 18 06/10/23 07:44 BP 140/75 H 06/10/23 07:44 Pulse Ox 98 06/10/23 07:44 O2 Del Method Room Air 06/10/23 07:44 FiO2 98 06/09/23 23:55 BMI result Body Mass Index 22.3 Gen: in no acute distress HEENT: sclera anicteric, moist mucus membranes Neck: supple, L tunneled subclavian HD catheter Lungs: clear B Heart: regular rate and rhythm, no murmurs Abd: soft, non-tender, non-distended Ext: no edema Skin: warm/well-perfused Neuro: alert and oriented x3, no focal findings Psych: appropriate affect Objective Data Active Medications Acetaminophen (Acetaminophen 325 Mg Tablet) 650 mg PO Q6H PRN PRN Reason: Pain, Mild (Pain Scale 1-3) Apixaban (Apixaban 2.5 Mg Tablet) 2.5 mg PO BID [facility] Last Admin: 06/10/23 09:22 Dose: 2.5 mg Documented By: MERLE Ascorbic Acid (Ascorbic Acid 250 Mg Tablet) 250 mg PO DAILY [facility] Last Admin: 06/10/23 09:22 Dose: 250 mg Documented By: MERLE Aspirin (Aspirin 81 Mg Tab.Chew) 81 mg PO DAILY [facility] Last Admin: 06/10/23 09:22 Dose: 81 mg Documented By: MERLE Atorvastatin Calcium (Atorvastatin Calcium 80 Mg Tablet) 80 mg PO DAILY [facility] Last Admin: 06/10/23 09:22 Dose: 80 mg Documented By: MERLE Benzonatate (Benzonatate 100 Mg Capsule) 100 mg PO TID PRN PRN Reason: Cough Carvedilol (Carvedilol 6.25 Mg Tablet) 6.25 mg PO BID [facility]; Protocol Last Admin: 06/10/23 09:23 Dose: 6.25 mg Documented By: MERLE Cyclobenzaprine HCl (Cyclobenzaprine Hcl 5 Mg Tablet) 5 mg PO TID [facility] Last Admin: 06/10/23 09:23 Dose: 5 mg Documented By: MERLE Docusate Sodium (Docusate Sodium 100 Mg Capsule) 100 mg PO DAILY PRN PRN Reason: Constipation Docusate Sodium (Docusate Sodium 100 Mg Capsule) 100 mg PO DAILY [facility] Last Admin: 06/10/23 09:24 Dose: 100 mg Documented By: MERLE Ferrous Sulfate (Ferrous Sulfate 324 Mg Tablet.) 324 mg PO DAILY [facility] Last Admin: 06/10/23 09:24 Dose: 324 mg Documented By: MERLE Fluoxetine HCl (Fluoxetine Hcl 20 Mg Capsule) 20 mg PO DAILY [facility] Last Admin: 06/10/23 09:24 Dose: 20 mg Documented By: MERLE Furosemide (Furosemide 20 Mg/2 Ml Vial) 20 mg IVPUSH BID@0900,1800 [facility]; Protocol Last Admin: 06/10/23 09:24 Dose: 20 mg Documented By: MERLE Gabapentin (Gabapentin 300 Mg Capsule) 300 mg PO BEDTIME [facility] Last Admin: 06/09/23 20:20 Dose: 300 mg Documented By: AGUS Hydralazine HCl (Hydralazine Hcl 10 Mg Tablet) 10 mg PO TID [facility]; Protocol Last Admin: 06/10/23 09:23 Dose: 10 mg Documented By: MERLE Lisinopril (Lisinopril 20 Mg Tablet) 20 mg PO DAILY [facility]; Protocol Last Admin: 06/10/23 09:22 Dose: 20 mg Documented By: MERLE Melatonin (Melatonin 3 Mg Tablet) 6 mg PO BEDTIME PRN PRN Reason: Insomnia Nitroglycerin (Nitroglycerin 0.4 Mg Tab.Subl) 0.4 mg SUBLINGUAL Q5M PRN PRN Reason: Chest Pain Omeprazole (Omeprazole 20 Mg Capsule.) 20 mg PO DAILY@0630 [facility] Last Admin: 06/10/23 06:14 Dose: 20 mg Documented By: ALONA Ondansetron HCl (Ondansetron Hcl 4 Mg/2 Ml Vial) 4 mg IVPUSH Q8H PRN PRN Reason: Nausea and Vomiting Oxycodone HCl (Oxycodone Hcl Immed Release 5 Mg Tablet) 5 mg PO Q4H PRN PRN Reason: Pain, Moderate(Pain Scale 4-6) Last Admin: 06/10/23 09:33 Dose: 5 mg Documented By: MERLE Paroxetine HCl (Paroxetine Hcl 30 Mg Tablet) 30 mg PO DAILY [facility] Last Admin: 06/10/23 09:23 Dose: 30 mg Documented By: MERLE Sevelamer Carbonate (Sevelamer Carbonate Tablet 800 Mg Tablet) 800 mg PO TIDWM [facility] Last Admin: 06/10/23 09:24 Dose: 800 mg Documented By: MERLE Sodium Chloride (0.9 % Sodium Chloride Flush 3 Ml Syringe) 3 ml IVFLUSH QSHIFT [facility] Last Admin: 06/10/23 09:24 Dose: 3 ml Documented By: MERLE Trazodone HCl (Trazodone Hcl 50 Mg Tablet) 50 mg PO BEDTIME [facility] Last Admin: 06/09/23 20:21 Dose: 50 mg Documented By: AGUS Labs 06/10/23 06:46 06/10/23 06:46 Labs: Laboratory Results - last 24 hr 06/09/23 06/10/23 06:28 06:46 MCV 96.7 MCH 30.0 MCHC 31.1 RDW 17.1 H Plt Count 177 MPV 9.0 L Absolute Nucleated RBC 0.000 Nucleated RBC % (auto) 0.0 Anion Gap 14 Estim Creat Clear Calc 11.1 Estimated GFR 14 Random Glucose 73 Calcium 8.3 L Magnesium 2.0 Ferritin 2350 H Lactate Dehydrogenase 213 C-Reactive Protein 3.53 H B-Natriuretic Peptide 1223 H Procalcitonin 0.22 0.20 Assessment and Plan (1) CHF (congestive heart failure): Status: Acute Assessment and Plan: d3 73yo F with pAF on apixaban, ESRD on HD MWF, CAD s/p CABG, HF with mildly reduced EF, carotid stenosis, ILD, and recently diagnosis of left lower lung adenoCA presenting with pleuritic chest pain for a few days admitted for CHF exacerbation recent Covid-19 - tested positive 05/27/23, completed isolation 06/06/23, discontinue isolation precautions, not hypoxic; d/c remdesivir acute exacerbation of chronic HF with mildly reduced EF - continue furosemide, monitor lytes + BNP - HD as below - continue carvedilol + lisinopril - TTE 06/09/23: 1. Normal LV ejection fraction 60 65% with at least grade 2 diastolic dysfunction 2. Severely dilated left atrium 3. At least moderate aortic stenosis 4. Normal RV systolic pressure 5. No gross pericardial effusion L pleural effusion - suspect due to HF; repeat CXR ESRD on HD - continue HD MWF + sevelamer hyperK, mild - resolved s/p HD hypoNa - ?SIADH. will fluid restrict, recheck BMP in AM LLL adenoCA - Heme-Onc outpt + CT Surg f/u, not candidate for systemic therapy paroxysmal AF - continue carvedilol for RC, apixaban for AC CAD - continue ASA + statin + b-alessia + JOAQUINA-I mood disorder - continue trazodone + paroxetine GERD - PPI VTE ppx - apixaban dispo - TBD, may be ready tomorrow if improved In my clinical judgment, the patient requires continued inpatient hospitalization for the following reasons: diuresis Time Spent With Patient Time: Total time managing care of this patient today _35___ minutes. Quality Stroke Does the patient have a stroke diagnosis?: No VTE Prior VTE?: No VTE Risk Level:: Medical - moderate - high VTE Device Contraindication: Treatment Not Indicated VTE Drug Contraindication: N/A - Med Ordered
[2023-06-10 11:56] VITALS: BP 126/61; PULSE 69; RESP 18; TEMP 37.2; O2SAT 97
[2023-06-10 15:48] VITALS: BP 168/77; PULSE 67; RESP 18; TEMP 36.4; O2SAT 96
--- NOTE | 2023-06-10 16:41 | P.PNNP_ITS ---
Subjective Subjective Date of Service: 06/10/23 Interval history: feels OK Dialyzed yesterday Physical Exam 2 Vital Signs: Vital Signs: Last Vital Signs Temp 97.6 F 06/10/23 15:48 Pulse 67 06/10/23 15:48 Resp 18 06/10/23 15:48 BP 168/77 H 06/10/23 15:48 Pulse Ox 96 06/10/23 15:48 O2 Del Method Room Air 06/10/23 15:48 FiO2 98 06/09/23 23:55 BMI result Body Mass Index 22.3 Gen: in no acute distress HEENT: sclera anicteric, moist mucus membranes Neck: supple, L tunneled subclavian HD catheter Lungs: diminished L base Heart: regular rate and rhythm, no murmurs Abd: soft, non-tender, non-distended Ext: no edema Skin: warm/well-perfused Neuro: alert and oriented x3, no focal findings Psych: appropriate affect Objective Data Labs 06/10/23 06:46 06/10/23 06:46 Labs: Laboratory Results - last 24 hr 06/10/23 06:46 WBC 7.3 RBC 2.73 L Hgb 8.2 L Hct 26.4 L MCV 96.7 MCH 30.0 MCHC 31.1 RDW 17.1 H Plt Count 177 MPV 9.0 L Absolute Nucleated RBC 0.000 Nucleated RBC % (auto) 0.0 Sodium 128 L Potassium 4.8 Chloride 99 Carbon Dioxide 20 L Anion Gap 14 BUN 19 H Creatinine 3.29 H Estim Creat Clear Calc 11.1 Estimated GFR 14 Random Glucose 73 Calcium 8.3 L Magnesium 2.0 C-Reactive Protein 3.53 H B-Natriuretic Peptide 1223 H Procalcitonin 0.20 Procedures Date of Service Date of Service: 06/10/23 Assessment & Plan Assessment and plan (1) Hemodialysis patient: Status: Acute (2) ESRD (end stage renal disease): Status: Inactive Plan Elderly woman with ESRD on maintenance hemodialysis. Admitted COVID Plan: - Continue HD MWF - Vol removal as tolerated - Off COVID isolation - Continue renagel d/w medical team Time Spent With Patient Time: Total time managing care of this patient today ____ minutes. Progress Note: Quality Stroke Does the patient have a stroke diagnosis?: No
[2023-06-10 20:00] VITALS: BP 173/78; PULSE 69; RESP 18; TEMP 36.8; O2SAT 96
[2023-06-10] MEDS: traZODone HCL 50 MG TABLET PO (21:47)
[2023-06-10] MEDS: Gabapentin 300 MG CAPSULE PO (21:48)
[2023-06-11] VITALS: BP 179/72; PULSE 74; RESP 20; TEMP 36.1; O2SAT 96
[2023-06-11 03:06] VITALS: BP 134/68; PULSE 71; RESP 20; TEMP 36.1; O2SAT 97
--- NOTE | 2023-06-11 04:42 | CONS_ITS ---
DATE OF SERVICE: 06/09/2023 REASON FOR CONSULTATION: Consult requested by the medical team to evaluate and help in management of patient with ESRD who presents with shortness of breath and fatigue. HISTORY OF PRESENT ILLNESS: The patient is a 73-year-old female with past medical history of paroxysmal atrial fibrillation; history of ESRD, on hemodialysis on Monday, Monday, Monday; coronary artery disease, status post CABG; history of recently diagnosed adenocarcinoma of lung, who presents to the ER with complaints of inspiratory pleuritic chest pain and shortness of breath. She also had fatigue. She was recently discharged from the [facility] with left femur fracture, status post ORIF. She apparently did not go for hemodialysis on Monday. She apparently has been taking all her medications as prescribed. In the ER, the patient was hemodynamically stable. Hemoglobin was 8.9. BNP was elevated. Chest x-ray showed opacity in the left lung base. No evidence of PE on CTA. She was admitted to the hospital. Renal consult has been requested. REVIEW OF SYSTEMS: As noted above. Other systems reviewed negative. PAST MEDICAL HISTORY: History of atrial fibrillation, on Eliquis; ESRD, on hemodialysis on Monday, Monday, Monday; history of coronary artery disease, status post CABG; history of heart failure; carotid artery stenosis; interstitial lung disease; recently diagnosed adenocarcinoma of the left lung; history of DVT; osteopenia; aortic stenosis; anemia of chronic disease; asthmatic bronchitis; GERD; and depression. FAMILY HISTORY: Father and mother . Mother had coronary artery disease. PAST SURGICAL HISTORY: The patient has AV fistula creation, history of total replacement of right shoulder, rectopexy, left knee replacement, carpal tunnel release of both wrists. PERSONAL AND SOCIAL HISTORY: The patient does not drink alcohol. Does not smoke. ALLERGIES: THE PATIENT HAS ALLERGIES TO ATENOLOL, DOXYCYCLINE, DULOXETINE, AMPHETAMINE, AND DEXTROAMPHETAMINE. MEDICATIONS: As an outpatient, patient reviewed. PHYSICAL EXAMINATION: GENERAL: The patient is resting in the bed. Awake, alert, and oriented x3. VITAL SIGNS: Blood pressure was 134/64, pulse 73, afebrile. HEENT: Shows pupils equal, round and reactive bilaterally to light. NECK: No jugular venous distention is noted. Supple. CARDIOVASCULAR SYSTEM: S1, S2 without rub. RESPIRATORY SYSTEM: Mild decreased in the bases, left more than the right. ABDOMEN: Soft. Bowel sounds normal. EXTREMITIES: Showed no edema. She is on isolation. LABORATORY DATA: Done recently WBC 7.2, hemoglobin 8.8, hematocrit 28.6. Sodium 129, potassium 5.5, chloride 99, CO2 21, BUN 37, creatinine 4.73. IMPRESSION: 1. Elderly female with end-stage renal disease, on hemodialysis. Usually gets dialyzed on Monday, Monday, Monday with missed dialysis treatment. 2. Mild hyperkalemia. 3. Hyponatremia. 4. Acute exacerbation of congestive heart failure. 5. Elevated D-dimer, but chest CT was negative for pulmonary embolism. 6. Left lower lobe adenocarcinoma. 7. Paroxysmal atrial fibrillation. RECOMMENDATIONS: 1. At this juncture, I have arranged the hemodialysis for the patient in the inpatient dialysis unit. We will try to remove fluid as tolerated. We will use potassium per protocol. Hyperkalemia, hyponatremia should resolve with dialysis. We should place her on 2 g sodium diet, 2 g potassium diet, and a fluid restriction. 2. Volume should help with congestive heart failure. She is on COVID precaution at present time. 3. Continue Eliquis as ordered. I would discontinue on furosemide and initiate the patient on p.o. Lasix 80 mg daily. 4. Continue p.o. ferrous sulfate. Continue Renagel. Thank you for allowing me to participate in medical management. MD FREDERICK Grey/RONNIE / [phone]
[2023-06-11] MEDS: Omeprazole 20 MG CAPSULE.DR PO (06:04)
[2023-06-11 06:27] LABS: Hematocrit 28.1 % (37.0-47.0); Hemoglobin 8.7 g/dl (12.0-16.0); Mean Corpuscular Hemoglobin 29.9 pg (27.0-33.0); Mean Corpuscular Volume 96.6 fL (80.0-98.0); Mean Platelet Volume 9.7 fL (9.4-12.3); Platelet Count 182 X10*3/uL (160-400); Red Blood Count 2.91 X10*6/uL (4.20-5.50); Red Cell Distribution Width 16.1 % (11.0-16.0); White Blood Count 7.6 X10*3/uL (4.8-10.8)
[2023-06-11 07:00] LABS: Iron 37 mcg/dL (30-160); Percent Iron Saturation 37 % (15-50); Total Iron Binding Capacity 101 mcg/dL (228-428); Unsaturated Iron Binding 64 ug/dL
[2023-06-11 07:04] LABS: Anion Gap 15 (12-20); Blood Urea Nitrogen 27 mg/dL (9-16); Carbon Dioxide 19 mmol/L (22-29); Chloride 99 mmol/L (96-108); Glucose Random 85 mg/dL (60-115); Magnesium 2.1 mg/dL (1.6-2.6); Potassium 4.8 mmol/L (3.3-5.1); Sodium 128 mmol/L (135-145)
[2023-06-11 07:21] LABS: Creatinine Clr Calc Pharmacy 8.5; Estimated Glomerular Filt Rate 10
[2023-06-11 07:37] VITALS: BP 179/89; PULSE 82; RESP 16; TEMP 37.2; O2SAT 97
[2023-06-11] MEDS: Aspirin 81 MG TAB.CHEW PO (08:49)
[2023-06-11] MEDS: 0.9 % Sodium Chloride Flush 3 ML SYRINGE IVFLUSH ×3 (08:49→20:35)
[2023-06-11] MEDS: hydrALAZINE HCl 10 MG TABLET PO ×3 (08:49→20:34)
[2023-06-11] MEDS: Docusate Sodium 100 MG CAPSULE PO (08:49)
[2023-06-11] MEDS: Sevelamer Carbonate Tablet 800 MG TABLET PO ×3 (08:49→16:49)
[2023-06-11] MEDS: lisinopriL 20 MG TABLET PO (08:49)
[2023-06-11] MEDS: Cyclobenzaprine HCl 5 MG TABLET PO ×3 (08:50→20:35)
[2023-06-11] MEDS: Furosemide 40 MG TABLET 80 MG PO (08:50)
[2023-06-11] MEDS: FLUoxetine HCl 20 MG CAPSULE PO (08:50)
[2023-06-11] MEDS: Atorvastatin Calcium 80 MG TABLET PO (08:50)
[2023-06-11] MEDS: Ascorbic Acid 250 MG TABLET PO (08:50)
[2023-06-11] MEDS: carvediloL 6.25 MG TABLET PO ×2 (08:51→20:34)
[2023-06-11] MEDS: Apixaban 2.5 MG TABLET PO ×2 (08:51→20:35)
[2023-06-11] MEDS: PARoxetine HCL 30 MG TABLET PO (08:55)
--- NOTE | 2023-06-11 09:58 | P.PNIM_ITS ---
Subjective Subjective Date of Service: 06/11/23 Interval History: Pleurisy improved No dyspnea No cough Na 128 Review of Systems Review of Systems: Yes all other systems are reviewed and are negative Physical Exam 2 Vital Signs: Vital Signs: Last Vital Signs Temp 99.0 F 06/11/23 07:37 Pulse 82 06/11/23 07:37 Resp 16 06/11/23 07:37 BP 179/89 H 06/11/23 07:37 Pulse Ox 97 06/11/23 07:37 O2 Del Method Room Air 06/11/23 07:37 FiO2 98 06/09/23 23:55 BMI result Body Mass Index 22.3 Gen: in no acute distress HEENT: sclera anicteric, moist mucus membranes Neck: supple, L tunneled subclavian HD catheter Lungs: clear B Heart: regular rate and rhythm, no murmurs Abd: soft, non-tender, non-distended Ext: no edema Skin: warm/well-perfused Neuro: alert and oriented x3, no focal findings Psych: appropriate affect Objective Data Active Medications Acetaminophen (Acetaminophen 325 Mg Tablet) 650 mg PO Q6H PRN PRN Reason: Pain, Mild (Pain Scale 1-3) Apixaban (Apixaban 2.5 Mg Tablet) 2.5 mg PO BID [facility] Last Admin: 06/11/23 08:51 Dose: 2.5 mg Documented By: NOLAN Ascorbic Acid (Ascorbic Acid 250 Mg Tablet) 250 mg PO DAILY [facility] Last Admin: 06/11/23 08:50 Dose: 250 mg Documented By: NOLAN Aspirin (Aspirin 81 Mg Tab.Chew) 81 mg PO DAILY [facility] Last Admin: 06/11/23 08:49 Dose: 81 mg Documented By: NOLAN Atorvastatin Calcium (Atorvastatin Calcium 80 Mg Tablet) 80 mg PO DAILY [facility] Last Admin: 06/11/23 08:50 Dose: 80 mg Documented By: NOLAN Benzonatate (Benzonatate 100 Mg Capsule) 100 mg PO TID PRN PRN Reason: Cough Carvedilol (Carvedilol 6.25 Mg Tablet) 6.25 mg PO BID [facility]; Protocol Last Admin: 06/11/23 08:51 Dose: 6.25 mg Documented By: NOLAN Cyclobenzaprine HCl (Cyclobenzaprine Hcl 5 Mg Tablet) 5 mg PO TID [facility] Last Admin: 06/11/23 08:50 Dose: 5 mg Documented By: NOLAN Docusate Sodium (Docusate Sodium 100 Mg Capsule) 100 mg PO DAILY PRN PRN Reason: Constipation Docusate Sodium (Docusate Sodium 100 Mg Capsule) 100 mg PO DAILY [facility] Last Admin: 06/11/23 08:49 Dose: 100 mg Documented By: NOLAN Fluoxetine HCl (Fluoxetine Hcl 20 Mg Capsule) 20 mg PO DAILY [facility] Last Admin: 06/11/23 08:50 Dose: 20 mg Documented By: NOLAN Furosemide (Furosemide 40 Mg Tablet) 80 mg PO DAILY [facility]; Protocol Last Admin: 06/11/23 08:50 Dose: 80 mg Documented By: NOLAN Gabapentin (Gabapentin 300 Mg Capsule) 300 mg PO BEDTIME [facility] Last Admin: 06/10/23 21:48 Dose: 300 mg Documented By: RADHA Hydralazine HCl (Hydralazine Hcl 10 Mg Tablet) 10 mg PO TID [facility]; Protocol Last Admin: 06/11/23 08:49 Dose: 10 mg Documented By: NOLAN Lisinopril (Lisinopril 20 Mg Tablet) 20 mg PO DAILY [facility]; Protocol Last Admin: 06/11/23 08:49 Dose: 20 mg Documented By: NOLAN Melatonin (Melatonin 3 Mg Tablet) 6 mg PO BEDTIME PRN PRN Reason: Insomnia Nitroglycerin (Nitroglycerin 0.4 Mg Tab.Subl) 0.4 mg SUBLINGUAL Q5M PRN PRN Reason: Chest Pain Omeprazole (Omeprazole 20 Mg Capsule.Dr) 20 mg PO DAILY@0630 [facility] Last Admin: 06/11/23 06:04 Dose: 20 mg Documented By: RADHA Ondansetron HCl (Ondansetron Hcl 4 Mg/2 Ml Vial) 4 mg IVPUSH Q8H PRN PRN Reason: Nausea and Vomiting Oxycodone HCl (Oxycodone Hcl Immed Release 5 Mg Tablet) 5 mg PO Q4H PRN PRN Reason: Pain, Moderate(Pain Scale 4-6) Last Admin: 06/10/23 09:33 Dose: 5 mg Documented By: MERLE Paroxetine HCl (Paroxetine Hcl 30 Mg Tablet) 30 mg PO DAILY [facility] Last Admin: 06/11/23 08:55 Dose: 30 mg Documented By: NOLAN Sevelamer Carbonate (Sevelamer Carbonate Tablet 800 Mg Tablet) 800 mg PO TIDWM [facility] Last Admin: 06/11/23 08:49 Dose: 800 mg Documented By: NOLAN Sodium Chloride (0.9 % Sodium Chloride Flush 3 Ml Syringe) 3 ml IVFLUSH QSHIFT [facility] Last Admin: 06/11/23 08:49 Dose: 3 ml Documented By: NOLAN Trazodone HCl (Trazodone Hcl 50 Mg Tablet) 50 mg PO BEDTIME [facility] Last Admin: 06/10/23 21:47 Dose: 50 mg Documented By: RADHA Labs 06/11/23 05:57 06/11/23 05:57 Labs: Laboratory Results - last 24 hr 06/11/23 05:57 MCV 96.6 MCH 29.9 MCHC 31.0 RDW 16.1 H Plt Count 182 MPV 9.7 Absolute Nucleated RBC 0.000 Nucleated RBC % (auto) 0.0 Anion Gap 15 Estim Creat Clear Calc 8.5 Estimated GFR 10 Random Glucose 85 Calcium 8.0 L Magnesium 2.1 Iron 37 TIBC 101 L % Saturation 37 Unsat Iron Binding 64 Assessment and Plan (1) CHF (congestive heart failure): Status: Acute Assessment and Plan: d4 73yo F with pAF on apixaban, ESRD on HD MWF, CAD s/p CABG, HF with mildly reduced EF, carotid stenosis, ILD, and recently diagnosis of left lower lung adenoCA presenting with pleuritic chest pain for a few days admitted for CHF exacerbation with pleural effusion acute exacerbation of chronic HF with recovered EF - changed to PO furosemide per Nephrology - continue carvedilol + lisinopril - TTE 06/09/23: 1. Normal LV ejection fraction 60 65% with at least grade 2 diastolic dysfunction 2. Severely dilated left atrium 3. At least moderate aortic stenosis 4. Normal RV systolic pressure 5. No gross pericardial effusion hypoNa - ?SIADH from lung CA. will fluid restrict, recheck BMP in AM and should also resolved with HD L pleural effusion - suspect due to HF; has largely resolved with diuresis + dialysis recent Covid-19 - tested positive 05/27/23, completed isolation 06/06/23, does not need isolation precautions ESRD on HD - continue HD MWF + sevelamer anemia of ESRD - management per Nephrology hyperK, mild - resolved s/p HD LLL adenoCA - Heme-Onc outpt + CT Surg f/u, not candidate for systemic therapy paroxysmal AF - continue carvedilol for RC, apixaban for AC CAD - continue ASA + statin + b-alessia + JOAQUINA-I mood disorder - continue trazodone + paroxetine GERD - PPI VTE ppx - apixaban dispo - TBD, PT consult pending In my clinical judgment, the patient requires continued inpatient hospitalization for the following reasons: hypoNa Time Spent With Patient Time: Total time managing care of this patient today __35__ minutes. Quality Stroke Does the patient have a stroke diagnosis?: No VTE Prior VTE?: No VTE Risk Level:: Medical - moderate - high VTE Device Contraindication: Treatment Not Indicated VTE Drug Contraindication: N/A - Med Ordered
[2023-06-11 11:22] VITALS: BP 178/88; PULSE 77; RESP 16; TEMP 36.7; O2SAT 96
[2023-06-11] MEDS: oxyCODONE HCl Immed Release 5 MG TABLET PO ×3 (11:51→20:35)
--- NOTE | 2023-06-11 13:26 | P.PNNP_ITS ---
Subjective Subjective Date of Service: 06/11/23 Interval history: Pleurisy improved No dyspnea No cough Na 128 Physical Exam 2 Vital Signs: Vital Signs: Last Vital Signs Temp 98.1 F 06/11/23 11:22 Pulse 77 06/11/23 11:22 Resp 16 06/11/23 11:22 BP 178/88 H 06/11/23 11:22 Pulse Ox 96 06/11/23 11:22 O2 Del Method Room Air 06/11/23 11:22 FiO2 98 06/09/23 23:55 BMI result Body Mass Index 22.3 Gen: in no acute distress HEENT: sclera anicteric, moist mucus membranes Neck: supple, L tunneled subclavian HD catheter Lungs: diminished L base Heart: regular rate and rhythm, no murmurs Abd: soft, non-tender, non-distended Ext: no edema Skin: warm/well-perfused Neuro: alert and oriented x3, no focal findings Psych: appropriate affect Objective Data Labs 06/11/23 05:57 06/11/23 05:57 Labs: Laboratory Results - last 24 hr 06/11/23 05:57 WBC 7.6 RBC 2.91 L Hgb 8.7 L Hct 28.1 L MCV 96.6 MCH 29.9 MCHC 31.0 RDW 16.1 H Plt Count 182 MPV 9.7 Absolute Nucleated RBC 0.000 Nucleated RBC % (auto) 0.0 Sodium 128 L Potassium 4.8 Chloride 99 Carbon Dioxide 19 L Anion Gap 15 BUN 27 H Creatinine 4.29 H* Estim Creat Clear Calc 8.5 Estimated GFR 10 Random Glucose 85 Calcium 8.0 L Magnesium 2.1 Iron 37 TIBC 101 L % Saturation 37 Unsat Iron Binding 64 Procedures Date of Service Date of Service: 06/11/23 Assessment & Plan Assessment and plan (1) Hemodialysis patient: Status: Acute (2) Acute hyponatremia: Status: Acute (3) ESRD (end stage renal disease): Status: Inactive Plan Elderly woman with ESRD on maintenance hemodialysis. Now off COVID precautions Hyponatremia Plan: - Continue HD MWF - Vol removal as tolerated - Should improve with Hd - Fluis restriction - Off COVID isolation - Continue renagel d/w medical team Time Spent With Patient Time: Total time managing care of this patient today ____ minutes. Progress Note: Quality Stroke Does the patient have a stroke diagnosis?: No
[2023-06-11 16:00] VITALS: BP 142/74; PULSE 71; RESP 16; TEMP 36.7; O2SAT 98
[2023-06-11 20:00] VITALS: BP 150/58; PULSE 72; RESP 18; TEMP 36.1; O2SAT 99
[2023-06-11] MEDS: traZODone HCL 50 MG TABLET PO (20:33)
[2023-06-11] MEDS: Gabapentin 300 MG CAPSULE PO (20:35)
[2023-06-12 04:00] VITALS: BP 178/80; PULSE 80; RESP 18; TEMP 36.2; O2SAT 96
[2023-06-12] MEDS: Omeprazole 20 MG CAPSULE.DR PO (05:53)
[2023-06-12 07:30] VITALS: BP 135/87; PULSE 80; RESP 16; TEMP 36.6; O2SAT 97
[2023-06-12 07:35] LABS: Anion Gap 17 (12-20); Blood Urea Nitrogen 35 mg/dL (9-16); Calcium 8.4 mg/dL (8.4-10.2); Carbon Dioxide 18 mmol/L (22-29); Chloride 96 mmol/L (96-108); Creatinine Clr Calc Pharmacy 7.2; Estimated Glomerular Filt Rate 8; Glucose Random 73 mg/dL (60-115); Potassium 5.5 mmol/L (3.3-5.1); Sodium 125 mmol/L (135-145)
[2023-06-12] MEDS: Docusate Sodium 100 MG CAPSULE PO (08:25)
[2023-06-12] MEDS: Cyclobenzaprine HCl 5 MG TABLET PO ×3 (08:25→19:12)
[2023-06-12] MEDS: PARoxetine HCL 30 MG TABLET PO (08:25)
[2023-06-12] MEDS: Sevelamer Carbonate Tablet 800 MG TABLET PO ×2 (08:25→11:29)
[2023-06-12] MEDS: lisinopriL 20 MG TABLET PO (08:26)
[2023-06-12] MEDS: Atorvastatin Calcium 80 MG TABLET PO (08:26)
[2023-06-12] MEDS: Furosemide 40 MG TABLET 80 MG PO (08:26)
[2023-06-12] MEDS: Apixaban 2.5 MG TABLET PO ×2 (08:26→19:13)
[2023-06-12] MEDS: FLUoxetine HCl 20 MG CAPSULE PO (08:26)
[2023-06-12] MEDS: Aspirin 81 MG TAB.CHEW PO (08:26)
[2023-06-12] MEDS: Ascorbic Acid 250 MG TABLET PO (08:26)
[2023-06-12] MEDS: hydrALAZINE HCl 10 MG TABLET PO ×2 (08:26→19:13)
[2023-06-12] MEDS: carvediloL 6.25 MG TABLET PO ×2 (08:26→19:13)
[2023-06-12] MEDS: oxyCODONE HCl Immed Release 5 MG TABLET PO ×4 (08:32→22:44)
[2023-06-12] MEDS: 0.9 % Sodium Chloride Flush 3 ML SYRINGE IVFLUSH (08:33)
--- NOTE | 2023-06-12 09:55 | P.PNIM_ITS ---
Subjective Subjective Date of Service: 06/12/23 Interval History: Feeling better less shortness of breath, no cough, no pleuritic chest pain, and complaining of left leg pain, recently underwent orif for left femur fracture, tolerating diet no nausea no vomiting no abdominal pain, no chest pain,no other acute issues. Waiting for physical therapy. Review of Systems All of their system reviewed and negative. Physical Exam 2 Vital Signs: Vital Signs: Last Vital Signs Temp 97.8 F 06/12/23 07:30 Pulse 80 06/12/23 07:30 Resp 16 06/12/23 07:30 BP 135/87 06/12/23 07:30 Pulse Ox 97 06/12/23 07:30 O2 Del Method Room Air 06/12/23 07:30 FiO2 98 06/09/23 23:55 BMI result Body Mass Index 22.3 Const: Other: Gen: in no acute distress HEENT: sclera anicteric, moist mucus membranes Neck: supple, L tunneled subclavian HD catheter Lungs: clear B Heart: regular rate and rhythm, no murmurs Abd: soft, non-tender, non-distended Ext: no edema Skin: warm/well-perfused Neuro: alert and oriented x3, no focal findings Psych: appropriate affect Objective Data Active Medications Acetaminophen (Acetaminophen 325 Mg Tablet) 650 mg PO Q6H PRN PRN Reason: Pain, Mild (Pain Scale 1-3) Apixaban (Apixaban 2.5 Mg Tablet) 2.5 mg PO BID [facility] Last Admin: 06/12/23 08:26 Dose: 2.5 mg Documented By: JAYLA Ascorbic Acid (Ascorbic Acid 250 Mg Tablet) 250 mg PO DAILY [facility] Last Admin: 06/12/23 08:26 Dose: 250 mg Documented By: JAYLA Aspirin (Aspirin 81 Mg Tab.Chew) 81 mg PO DAILY [facility] Last Admin: 06/12/23 08:26 Dose: 81 mg Documented By: JAYLA Atorvastatin Calcium (Atorvastatin Calcium 80 Mg Tablet) 80 mg PO DAILY [facility] Last Admin: 06/12/23 08:26 Dose: 80 mg Documented By: JAYLA Benzonatate (Benzonatate 100 Mg Capsule) 100 mg PO TID PRN PRN Reason: Cough Carvedilol (Carvedilol 6.25 Mg Tablet) 6.25 mg PO BID [facility]; Protocol Last Admin: 06/12/23 08:26 Dose: 6.25 mg Documented By: JAYLA Cyclobenzaprine HCl (Cyclobenzaprine Hcl 5 Mg Tablet) 5 mg PO TID [facility] Last Admin: 06/12/23 08:25 Dose: 5 mg Documented By: JAYLA Docusate Sodium (Docusate Sodium 100 Mg Capsule) 100 mg PO DAILY PRN PRN Reason: Constipation Docusate Sodium (Docusate Sodium 100 Mg Capsule) 100 mg PO DAILY [facility] Last Admin: 06/12/23 08:25 Dose: 100 mg Documented By: JAYLA Fluoxetine HCl (Fluoxetine Hcl 20 Mg Capsule) 20 mg PO DAILY [facility] Last Admin: 06/12/23 08:26 Dose: 20 mg Documented By: JAYLA Furosemide (Furosemide 40 Mg Tablet) 80 mg PO DAILY [facility]; Protocol Last Admin: 06/12/23 08:26 Dose: 80 mg Documented By: JAYLA Gabapentin (Gabapentin 300 Mg Capsule) 300 mg PO BEDTIME [facility] Last Admin: 06/11/23 20:35 Dose: 300 mg Documented By: SHEFALI Hydralazine HCl (Hydralazine Hcl 10 Mg Tablet) 10 mg PO TID [facility]; Protocol Last Admin: 06/12/23 08:26 Dose: 10 mg Documented By: JAYLA Lisinopril (Lisinopril 20 Mg Tablet) 20 mg PO DAILY [facility]; Protocol Last Admin: 06/12/23 08:26 Dose: 20 mg Documented By: JAYLA Melatonin (Melatonin 3 Mg Tablet) 6 mg PO BEDTIME PRN PRN Reason: Insomnia Nitroglycerin (Nitroglycerin 0.4 Mg Tab.Subl) 0.4 mg SUBLINGUAL Q5M PRN PRN Reason: Chest Pain Omeprazole (Omeprazole 20 Mg Capsule.Dr) 20 mg PO DAILY@0630 [facility] Last Admin: 06/12/23 05:53 Dose: 20 mg Documented By: SHEFALI Ondansetron HCl (Ondansetron Hcl 4 Mg/2 Ml Vial) 4 mg IVPUSH Q8H PRN PRN Reason: Nausea and Vomiting Oxycodone HCl (Oxycodone Hcl Immed Release 5 Mg Tablet) 5 mg PO Q4H PRN PRN Reason: Pain, Moderate(Pain Scale 4-6) Last Admin: 06/12/23 08:32 Dose: 5 mg Documented By: JAYLA Paroxetine HCl (Paroxetine Hcl 30 Mg Tablet) 30 mg PO DAILY [facility] Last Admin: 06/12/23 08:25 Dose: 30 mg Documented By: JAYLA Sevelamer Carbonate (Sevelamer Carbonate Tablet 800 Mg Tablet) 800 mg PO TIDWM [facility] Last Admin: 06/12/23 08:25 Dose: 800 mg Documented By: JAYLA Sodium Chloride (0.9 % Sodium Chloride Flush 3 Ml Syringe) 3 ml IVFLUSH QSHIFT [facility] Last Admin: 06/12/23 08:33 Dose: 3 ml Documented By: JAYLA Trazodone HCl (Trazodone Hcl 50 Mg Tablet) 50 mg PO BEDTIME [facility] Last Admin: 06/11/23 20:33 Dose: 50 mg Documented By: CASTILM Labs 06/11/23 05:57 06/12/23 05:41 Labs: Laboratory Results - last 24 hr 06/12/23 06/12/23 05:41 06:48 Hold Purple Top SEE NOTE Anion Gap 17 Estim Creat Clear Calc 7.2 Estimated GFR 8 Random Glucose 73 Calcium 8.4 Assessment and Plan (1) CHF (congestive heart failure): Status: Acute Assessment and Plan: 73yo F with pAF on apixaban, ESRD on HD MWF, CAD s/p CABG, HF with mildly reduced EF, carotid stenosis, ILD, and recently diagnosis of left lower lung adenoCA presenting with pleuritic chest pain for a few days admitted for CHF exacerbation with pleural effusion acute exacerbation of chronic HF with recovered EF - changed to PO furosemide per Nephrology - continue carvedilol + lisinopril - TTE 06/09/23: 1. Normal LV ejection fraction 60 65% with at least grade 2 diastolic dysfunction 2. Severely dilated left atrium 3. At least moderate aortic stenosis 4. Normal RV systolic pressure 5. No gross pericardial effusion hypoNa - ?SIADH from lung CA, sodium dropped to 125, continue fluid restrict, scheduled for hemodialysis today, recheck BMP in AM . L pleural effusion - repeat chest x-ray showed small layering effusion, suspect due to HF; has largely resolved with diuresis + dialysis recent Covid-19 - tested positive 05/27/23, completed isolation 06/06/23, does not need isolation precautions ESRD on HD - continue HD MWF + sevelamer anemia of ESRD - management per Nephrology hyperK, mild - potassium 5.5 today repeat potassium at a.m. likely will improved with hemodialysis scheduled for today. LLL adenoCA - Heme-Onc outpt + CT Surg f/u, not candidate for systemic therapy paroxysmal AF - continue carvedilol for RC, apixaban for AC CAD - continue ASA + statin + b-alessia + JOAQUINA-I mood disorder - continue trazodone + paroxetine GERD - PPI VTE ppx - apixaban dispo - seen by PT they recommend short-term rehab In my clinical judgment, the patient requires continued inpatient hospitalization for the following reasons: hypoNa/safe disposition. Time Spent With Patient Time: Total time managing care of this patient today ____ minutes. Quality Stroke Does the patient have a stroke diagnosis?: No VTE Prior VTE?: No VTE Risk Level:: Medical - moderate - high VTE Device Contraindication: Treatment Not Indicated VTE Drug Contraindication: N/A - Med Ordered
--- NOTE | 2023-06-12 10:41 | MHC.CLN ---
F/U DIET RX: 2 GRAM SODIUM, LOW PHOS, LOW K+, 1500 ML FLUID RESTRICTION. LABS REVIEWED. PATIENT WITH ESRD ON HEMODIALYSIS. ENSURE CLEAR TID TO PROMOTE WOUND HEALING. PROVIDES 720 KCALS, 24G PROTEIN. PO INTAKE X 2 DAYS 50-100%. MONITOR PO INTAKE AND ENCOURAGE SUPPLEMENTS.
--- NOTE | 2023-06-12 15:14 | MHC.CM.PN ---
per rounds pt is not dc ready pt will return to [facility] when dcd
--- NOTE | 2023-06-12 16:06 | P.PNNP_ITS ---
Subjective Subjective Date of Service: 06/12/23 Interval history: Seen and examined, events noted Physical Exam 2 Vital Signs: Vital Signs: Last Vital Signs Temp 97.8 F 06/12/23 07:30 Pulse 80 06/12/23 07:30 Resp 16 06/12/23 07:30 BP 135/87 06/12/23 07:30 Pulse Ox 97 06/12/23 07:30 O2 Del Method Room Air 06/12/23 07:30 FiO2 98 06/09/23 23:55 BMI result Body Mass Index 22.3 Const: Other: Gen: in no acute distress HEENT: sclera anicteric, moist mucus membranes Neck: supple, L tunneled subclavian HD catheter Lungs: clear B Heart: regular rate and rhythm, no murmurs Abd: soft, non-tender, non-distended Ext: no edema Skin: warm/well-perfused Neuro: alert and oriented x3, no focal findings Psych: appropriate affect Objective Data Labs 06/11/23 05:57 06/12/23 05:41 Labs: Laboratory Results - last 24 hr 06/12/23 06/12/23 05:41 06:48 Hold Purple Top SEE NOTE Sodium 125 L Potassium 5.5 H Chloride 96 Carbon Dioxide 18 L Anion Gap 17 BUN 35 H Creatinine 5.04 H* Estim Creat Clear Calc 7.2 Estimated GFR 8 Random Glucose 73 Calcium 8.4 Procedures Date of Service Date of Service: 06/12/23 Assessment & Plan Assessment and plan (1) Hemodialysis patient: Status: Acute (2) Acute hyponatremia: Status: Acute (3) ESRD (end stage renal disease): Status: Inactive Plan Elderly woman with ESRD on maintenance hemodialysis. Now off COVID precautions Hyponatremia: d/texcess PO fluid intake HyperK Plan: - Continue HD MWF - Vol removal as tolerated - Should improve with Hd - Fluis restriction - Off COVID isolation - Continue renagel -D/C planning d/w medical team Time Spent With Patient Time: Total time managing care of this patient today ____ minutes. Progress Note: Quality Stroke Does the patient have a stroke diagnosis?: No
[2023-06-12 18:04] VITALS: BP 138/76; PULSE 82; RESP 18; TEMP 36.8; O2SAT 97
[2023-06-12] MEDS: traZODone HCL 50 MG TABLET PO (19:13)
[2023-06-12] MEDS: Gabapentin 300 MG CAPSULE PO (19:13)
[2023-06-12 20:00] VITALS: BP 141/54; PULSE 80; RESP 18; TEMP 36.4; O2SAT 98
[2023-06-13 03:41] VITALS: BP 179/88; PULSE 78; RESP 16; TEMP 36; O2SAT 97
[2023-06-13] MEDS: Omeprazole 20 MG CAPSULE.DR PO (05:36)
[2023-06-13 06:59] LABS: Anion Gap 12 (12-20); Blood Urea Nitrogen 20 mg/dL (9-16); Calcium 8.1 mg/dL (8.4-10.2); Carbon Dioxide 21 mmol/L (22-29); Chloride 97 mmol/L (96-108); Creatinine Clr Calc Pharmacy 11.1; Estimated Glomerular Filt Rate 14; Glucose Random 78 mg/dL (60-115); Potassium 4.3 mmol/L (3.3-5.1); Sodium 126 mmol/L (135-145)
[2023-06-13 07:39] VITALS: BP 168/85; PULSE 80; RESP 16; TEMP 37.2; O2SAT 96
[2023-06-13] MEDS: FLUoxetine HCl 20 MG CAPSULE PO (08:05)
[2023-06-13] MEDS: Sevelamer Carbonate Tablet 800 MG TABLET PO ×2 (08:05→12:22)
[2023-06-13] MEDS: Apixaban 2.5 MG TABLET PO (08:06)
[2023-06-13] MEDS: Docusate Sodium 100 MG CAPSULE PO (08:06)
[2023-06-13] MEDS: Furosemide 40 MG TABLET 80 MG PO (08:06)
[2023-06-13] MEDS: Ascorbic Acid 250 MG TABLET PO (08:06)
[2023-06-13] MEDS: lisinopriL 20 MG TABLET PO (08:06)
[2023-06-13] MEDS: Atorvastatin Calcium 80 MG TABLET PO (08:06)
[2023-06-13] MEDS: Aspirin 81 MG TAB.CHEW PO (08:06)
[2023-06-13] MEDS: PARoxetine HCL 30 MG TABLET PO (08:07)
[2023-06-13] MEDS: hydrALAZINE HCl 10 MG TABLET PO ×2 (08:07→14:44)
[2023-06-13] MEDS: Cyclobenzaprine HCl 5 MG TABLET PO ×2 (08:07→14:44)
[2023-06-13] MEDS: carvediloL 6.25 MG TABLET PO (08:12)
[2023-06-13] MEDS: 0.9 % Sodium Chloride Flush 3 ML SYRINGE IVFLUSH (08:13)
--- NOTE | 2023-06-13 13:40 | P.CONOP_ITS ---
History of Present Illness HPI Consult date: 06/13/23 Chief complaint: HFrEF Exacerbation Narrative: 73 yo female admitted to the medical service -recent COVID diagnosis. No longer on precautions. Orthopedics was consulted due to recent left femur surgery. Patient is currently wearing a knee immobilizer, she is unsure why she is wearing this or who put it on her. Date of Service: 04/22/23 Pre-op diagnosis: left periprosthetic distal femur fracture Post-op diagnosis: same Procedure: Rertreograde IMN left femur Review of Systems 2 Review of Systems: negative [facility] Past Medical History Medical History Left femoral shaft fracture History of DVT (deep vein thrombosis) History of non-ST elevation myocardial infarction (NSTEMI) (~12/2020) Osteopenia ESRD (end stage renal disease) Interstitial lung disease Atherosclerotic cardiovascular disease Aortic stenosis CAD (coronary artery disease) PAF (paroxysmal atrial fibrillation) (~12/2020) Anemia Asthmatic bronchitis GERD (gastroesophageal reflux disease) CKD (chronic kidney disease), stage IV History of ectopic Depression Hypertension Family History Family History Father No problems noted. Mother Myocardial infarction Surgical History Surgical History History of lung biopsy History of coronary artery bypass graft x 3 S/P arteriovenous (AV) fistula creation History of colonoscopy History of total replacement of right shoulder joint History of rectopexy History of left knee replacement History of carpal tunnel release of both wrists Social History Social History Household Members: None Housing: Other Housing Other:: rehab Do you presently have visiting nurse or other home services: No Alcohol intake: current Alcohol intake frequency: does not drink Patient Tobacco Use Status: Never used Tobacco Tobacco use type: Cigarette Second Hand Smoke Exposure: No Use of substances other than those prescribed or required for medical reasons: No Currently Displaying Signs/Symptoms of Drug Intoxication Withdrawal: No Have you been hit, kicked, punched, or otherwise hurt by someone within the past year? If so, by whom?: No Do you feel safe in your current relationship?: Yes Is there a partner from a previous relationship who is making you feel unsafe now?: No Are you made to feel afraid or neglected: No Advance Directives: Yes Advance Directives on File: Yes Advance Directives Date on File: 03/10/23 Do you have thoughts of harming others: None Do you have a plan to hurt others: No Plan Recently lost weight without trying: No Eating poorly because of decreased appetite: No Nutrition Risks: No Nutritional Risk Patient : No : No Poor oral hygiene: No service: No Current occupational status: retired Current occupation: young,right handed Meds Allergies Allergy/AdvReac Type Severity Reaction Status Date / Time atenolol [ATENOLOL] Allergy Severe DIFF Verified 06/08/23 10:15 BREATHING, heart races. doxycycline Allergy Severe Anaphylaxis Verified 06/08/23 10:15 duloxetine Allergy Severe Anaphylaxis Verified 06/08/23 10:15 amphetamine [Adderall] AdvReac Severe shortness Verified 06/08/23 10:15 of breath dextroamphetamine [Adderall] AdvReac Severe shortness Verified 06/08/23 10:15 of breath Active Medications: Current Medications Acetaminophen (Acetaminophen 325 Mg Tablet) 650 mg PO Q6H PRN PRN Reason: Pain, Mild (Pain Scale 1-3) Apixaban (Apixaban 2.5 Mg Tablet) 2.5 mg PO BID [facility] Last Admin: 06/13/23 08:06 Dose: 2.5 mg Ascorbic Acid (Ascorbic Acid 250 Mg Tablet) 250 mg PO DAILY [facility] Last Admin: 06/13/23 08:06 Dose: 250 mg Aspirin (Aspirin 81 Mg Tab.Chew) 81 mg PO DAILY [facility] Last Admin: 06/13/23 08:06 Dose: 81 mg Atorvastatin Calcium (Atorvastatin Calcium 80 Mg Tablet) 80 mg PO DAILY [facility] Last Admin: 06/13/23 08:06 Dose: 80 mg Benzonatate (Benzonatate 100 Mg Capsule) 100 mg PO TID PRN PRN Reason: Cough Carvedilol (Carvedilol 6.25 Mg Tablet) 6.25 mg PO BID [facility]; Protocol Last Admin: 06/13/23 08:12 Dose: 6.25 mg Cyclobenzaprine HCl (Cyclobenzaprine Hcl 5 Mg Tablet) 5 mg PO TID [facility] Last Admin: 06/13/23 08:07 Dose: 5 mg Docusate Sodium (Docusate Sodium 100 Mg Capsule) 100 mg PO DAILY PRN PRN Reason: Constipation Docusate Sodium (Docusate Sodium 100 Mg Capsule) 100 mg PO DAILY [facility] Last Admin: 06/13/23 08:06 Dose: 100 mg Fluoxetine HCl (Fluoxetine Hcl 20 Mg Capsule) 20 mg PO DAILY [facility] Last Admin: 06/13/23 08:05 Dose: 20 mg Furosemide (Furosemide 40 Mg Tablet) 80 mg PO DAILY [facility]; Protocol Last Admin: 06/13/23 08:06 Dose: 80 mg Gabapentin (Gabapentin 300 Mg Capsule) 300 mg PO BEDTIME [facility] Last Admin: 06/12/23 19:13 Dose: 300 mg Hydralazine HCl (Hydralazine Hcl 10 Mg Tablet) 10 mg PO TID [facility]; Protocol Last Admin: 06/13/23 08:07 Dose: 10 mg Lisinopril (Lisinopril 20 Mg Tablet) 20 mg PO DAILY [facility]; Protocol Last Admin: 06/13/23 08:06 Dose: 20 mg Melatonin (Melatonin 3 Mg Tablet) 6 mg PO BEDTIME PRN PRN Reason: Insomnia Nitroglycerin (Nitroglycerin 0.4 Mg Tab.Subl) 0.4 mg SUBLINGUAL Q5M PRN PRN Reason: Chest Pain Omeprazole (Omeprazole 20 Mg Capsule.Dr) 20 mg PO DAILY@0630 [facility] Last Admin: 06/13/23 05:36 Dose: 20 mg Ondansetron HCl (Ondansetron Hcl 4 Mg/2 Ml Vial) 4 mg IVPUSH Q8H PRN PRN Reason: Nausea and Vomiting Oxycodone HCl (Oxycodone Hcl Immed Release 5 Mg Tablet) 5 mg PO Q4H PRN PRN Reason: Pain, Moderate(Pain Scale 4-6) Last Admin: 06/12/23 22:44 Dose: 5 mg Paroxetine HCl (Paroxetine Hcl 30 Mg Tablet) 30 mg PO DAILY [facility] Last Admin: 06/13/23 08:07 Dose: 30 mg Sevelamer Carbonate (Sevelamer Carbonate Tablet 800 Mg Tablet) 800 mg PO TIDWM [facility] Last Admin: 06/13/23 12:22 Dose: 800 mg Sodium Chloride (0.9 % Sodium Chloride Flush 3 Ml Syringe) 3 ml IVFLUSH QSHIFT [facility] Last Admin: 06/13/23 08:13 Dose: 3 ml Trazodone HCl (Trazodone Hcl 50 Mg Tablet) 50 mg PO BEDTIME DIMITRY Last Admin: 06/12/23 19:13 Dose: 50 mg Home Medications Medication Instructions Recorded Confirmed Last Taken Type gabapentin 300 mg capsule 300 mg PO BEDTIME 11/09/22 06/08/23 05/03/23 History aspirin 81 mg chewable tablet 81 mg PO DAILY 03/10/23 06/08/23 05/03/23 History fluoxetine 20 mg capsule 20 mg PO DAILY 03/15/23 06/08/23 05/03/23 History sevelamer carbonate 800 mg tablet 800 mg PO TIDWM 04/20/23 06/08/23 05/03/23 History atorvastatin 80 mg tablet 80 mg PO DAILY 05/03/23 06/08/23 05/03/23 History carvedilol 6.25 mg tablet 6.25 mg PO BID 05/03/23 06/08/23 05/03/23 History docusate sodium 100 mg tablet 100 mg PO DAILY 05/03/23 06/08/23 05/02/23 History oxycodone 5 mg tablet 5 mg PO Q4H PRN Pain 05/03/23 06/08/23 05/03/23 History pantoprazole 40 mg tablet,delayed 40 mg PO DAILY 05/03/23 06/08/23 05/03/23 History release trazodone 50 mg tablet 50 mg PO BEDTIME 05/03/23 06/08/23 05/02/23 History acetaminophen 325 mg tablet 650 mg PO Q4H PRN Pain 06/08/23 06/08/23 Unknown History ascorbic acid (vitamin C) 250 mg 250 mg PO DAILY 06/08/23 06/08/23 Unknown History tablet cyclobenzaprine 5 mg tablet 5 mg PO TID 06/08/23 06/08/23 Unknown History ferrous sulfate 325 mg (65 mg 325 mg PO DAILY 06/08/23 06/08/23 Unknown History iron) tablet,delayed release furosemide 80 mg tablet 80 mg PO TUTHSA@0900 06/08/23 06/08/23 Unknown History hydralazine 10 mg tablet 10 mg PO TID 06/08/23 06/08/23 Unknown History lisinopril 20 mg tablet 20 mg PO DAILY 06/08/23 06/08/23 Unknown History nitroglycerin 0.4 mg sublingual 0.4 mg sublingual Q5M PRN Chest 06/08/23 06/08/23 Unknown History tablet Pain ondansetron 4 mg disintegrating 4 mg PO Q6H PRN Nausea 06/08/23 06/08/23 Unknown History tablet paroxetine HCl 30 mg tablet 30 mg PO DAILY 06/08/23 06/08/23 Unknown History Physical Exam 2 Vital Signs: Vital Signs: Last Vital Signs Temp 98.9 F 06/13/23 07:39 Pulse 80 06/13/23 07:39 Resp 16 06/13/23 07:39 BP 168/85 H 06/13/23 07:39 Pulse Ox 96 06/13/23 07:39 O2 Del Method Room Air 06/13/23 07:39 FiO2 98 06/09/23 23:55 BMI result Body Mass Index 22.3 Const: General: cooperative, healthy appearing, comfortable and no acute distress Extrem: Other: Left femur incisions well healed. No erythema or joint effusion. No pain with ROM of the knee ( 0-95). She is able to perform SLR, she does have weakness in her quad due to deconditioning. Calf supple non tender, NVI. Results Labs 06/11/23 05:57 06/13/23 06:12 Labs: Abnormal lab results 06/13/23 Range/Units 06:12 Sodium 126 L (135-145) mmol/L Carbon Dioxide 21 L (22-29) mmol/L BUN 20 H (9-16) mg/dL Creatinine 3.30 H (0.5-1.4) mg/dL Calcium 8.1 L (8.4-10.2) mg/dL H & H 06/08/23 06/09/23 06/10/23 Range/Units 11:22 06:28 06:46 Hgb 8.9 L 8.8 L 8.2 L (12.0-16.0) g/dl Hct 28.8 L 28.6 L 26.4 L (37.0-47.0) % 06/11/23 Range/Units 05:57 Hgb 8.7 L (12.0-16.0) g/dl Hct 28.1 L (37.0-47.0) % Coagulation 06/08/23 Range/Units 11:22 INR 1.3 H (0.9-1.1) All other labs normal. Diagnostic results Knee x-ray: image reviewed (xrays of the left femur obtained today show intact IMN with intact TKA with interval healing of the periprosthetic fx ) Assessment and Plan (1) Left femoral shaft fracture: Qualifiers: Encounter type: initial encounter Fracture type: closed Fracture morphology: other fracture Qualified Code(s): S72.392A - Other fracture of shaft of left femur, initial encounter for closed fracture Status: Inactive Plan PT for ROM, quad strength and gait training, she is WBAT. D/c KNee brace f/u with orthopedics in 6 weeks with xrays Time Spent With Patient Time: Total time managing care of this patient today ____ minutes. Procedures Date of Service Date of Service: 06/13/23
--- NOTE | 2023-06-13 14:02 | P.DS_ITS ---
DS: Providers Provider Date of Service: 06/13/23 Date of admission: 06/08/23 14:15 Primary care physician: Shukri Schneider MD Consults: 06/08/23 16:15 Consult to Nephrology Routine Consulting Provider: Marquise Weiss Reason for consultation: ESRD on HD M/W/F 06/08/23 16:54 Consult to Hematology / Oncology Routine Consulting Provider: Leah Sultana Reason for consultation: Left lower lobe adenocarcinoma 06/08/23 17:24 Consult to Wound Care Routine Reason for consultation: pressure injury stage 2 to coccyx Has provider been notified: Yes 06/13/23 08:12 Consult to Orthopedics Routine Consulting Provider: [facility] [place] [facility] Reason for consultation: left knee immobilizer need Has provider been notified: No DS: Diagnosis Discharge Diagnosis (1) Left femoral shaft fracture: Status: Inactive DS: Summary Hospital Course Hospital Course: History of presenting illness: Date of Service: 06/08/23 Attending physician on admission: Fady Santana Chief Complaint: SOB, fatigue Pt is a 73-year-old female with a PMH significant for?paroxysmal AFib on Eliquis, ESRD on hemodialysis M/W/F, CAD s/p CABG, HFrEF, carotid stenosis, interstitial lung disease, and recently diagnosed adenocarcinoma of left lower lung who presents to the ED for evaluation of inspiratory pleuritic chest pain. Pt was recently discharged from our facility on 05/03/2023 for left femur fracture s/p ORIF on 04/22. Pt was at home working with PT when she complained of pain with breathing in to her therapist, who suggsted she come to the ED. She states it feels like being punched in the side when she breaths. Has had increased fatigue and shortness of breath. Patient has not noticed any increased lower leg edema, the notes she did go to hemodialysis yesterday. Patient states she takes all of her medications as prescribed, though it is unclear exactly how compliant patient has been with her medications. Patient states she has been in an out of hospital almost nonstop for the past month and a half. Has been seen and hospitalized at [facility], and here during that time. Reports always gives her medication list while at the hospital, which she reports seems to constantly change. Medication review indicates patient last filled her furosemide script on 02/16/2023 with a 30 day supply. Last filled Eliquis on 04/05/2023 with a 30 day supply. Denies chest pressure. No fever, chills, nausea, vomiting, abdominal pain. Of note, she also states she has yet to follow-up with oncology for her lung cancer, recently diagnosed sometime in April. In the ED labs were significant for H&H of 8.9/28.8 (near baseline), D-dimer 616, sodium 131, BUN 32, creatinine 4.54, BNP 1215 (elevated from 393 on 03/10/2023). Hepatic function baseline. Troponin 6.0. CXR showed radiopacity in the left lung base that may reflect atelectasis versus evolving infectious/inflammatory etiology, and trace left-sided pleural effusion. CTA of chest showed moderate left and small right pleural effusions with a left lower lobe consolidation/infiltrate. Did not find any evidence of PE and no evidence of aortic aneurysm.. EKG demonstrated normal sinus rhythm without evidence of ST elevations or depressions. Pt was treated with furosemide and morphine. Pt will be admitted to the hospital for treatment further evaluation of acute HFrEF exacerbation likely secondary to medication noncompliance. Hospital course: 73yo F with pAF on apixaban, ESRD on HD MWF, CAD s/p CABG, HF with mildly reduced EF, carotid stenosis, ILD, and recently diagnosis of left lower lung adenoCA presenting with pleuritic chest pain for a few days admitted for acute CHF exacerbation with recovered EF with pleural effusion, patient initially treated with IV Lasix and continued on Coreg and lisinopril Patient responded well to above treatment therefore changed to by mouth Lasix, TTE 06/09/23: Showed 1. Normal LV ejection fraction 60 65% with at least grade 2 diastolic dys function 2. Severely dilated left atrium 3. At least moderate aortic stenosis 4. Normal RV systolic pressure 5. No gross pericardial effusion Patient continued on hemodialysis for end-stage renal disease and was followed closely by Nephrology, chest x-ray showed left pleural effusion on admission that has since improved was likely secondary to heart failure, recommend compliance with diuretics and hemodialysis hypoNa - ?SIADH from lung CA, sodium 126, continue fluid restrict 1500 and hemodialysis ,follow bmp. recent Covid-19 - tested positive 05/27/23, completed isolation 06/06/23, does not need isolation precautions ESRD on HD - continue HD MWF + sevelamer anemia of ESRD stable hyperK, mild resolved with HD LLL adenoCA - Heme-Onc outpt + CT Surg f/u, not candidate for systemic therapy paroxysmal AF - continue carvedilol for RC, apixaban for AC CAD - no acute symptoms, continue ASA + statin + b-alessia and JOAQUINA-I mood disorder - continue trazodone and paroxetine Recent left femur surgery, incision well healed seen by Orthopedic surgery they recommend to discontinue left knee immobilizer continue physical therapy. Time Spent with Patient Time attestation: Total time managing care of this patient today ____ minutes. Discharge coordination time: Greater than 30 minutes Quality: Safe Use of Opioids Does Pt have an Active Cancer Diagnosis on the Problem List?: No Quality: Stroke Does the patient have a stroke diagnosis?: No Physical Exam Vital Signs: Vital Signs: Last Vital Signs Temp 98.9 F 06/13/23 07:39 Pulse 80 06/13/23 07:39 Resp 16 06/13/23 07:39 BP 168/85 H 06/13/23 07:39 Pulse Ox 96 06/13/23 07:39 O2 Del Method Room Air 06/13/23 07:39 FiO2 98 06/09/23 23:55 BMI result Body Mass Index 22.3 Const: Other: Gen: Awake alert in no acute distress HEENT: sclera anicteric, moist mucus membranes Neck: supple, L tunneled subclavian HD catheter Lungs: clear B Heart: regular rate and rhythm, no murmurs Abd: soft, non-tender, non-distended Ext: no edema Left femur incision well-healed Skin: warm/well-perfused Neuro: alert and oriented x3, no focal findings Psych: appropriate affect DS: Data Data Completed and Pending Completed studies during hospitalization [Text1]: Procedures Extirpation of Matter from Left Lower Leg Subcutaneous Tissue and Fascia, Open Approach (04/20/23) Performance of Urinary Filtration, Intermittent, Less than 6 Hours Per Day (05/03/23) Reposition Left Lower Femur with Intramedullary Internal Fixation Device, Percutaneous Approach (04/20/23) Transfusion of Nonautologous Red Blood Cells into Peripheral Vein, Percutaneous Approach (04/20/23) Labs on day of discharge: Laboratory Results - last 24 hr 06/13/23 06:12 Hold Purple Top SEE NOTE Sodium 126 L Potassium 4.3 D Chloride 97 Carbon Dioxide 21 L Anion Gap 12 BUN 20 H Creatinine 3.30 H Estim Creat Clear Calc 11.1 Estimated GFR 14 Random Glucose 78 Calcium 8.1 L Discharge Plan Discharge Anticipated Discharge Date/Time: 06/13/23 13:57 Patient Disposition: Xfer SNF Discharge Diagnosis: Acute exacerbation of CHF with preserved EF Hyponatremia Left pleural effusion Anemia of end-stage renal disease Referrals: [facility] [Other] - 1 Week Shukri Schneider MD [Primary Care Provider] - 1 Week Discharge Medications: New furosemide 40 mg Tablet 80 mg PO DAILY Qty: 60 0RF Protocol: Hold for SBP< HOLD for SBP < : 90 Continued Eliquis 2.5 mg tablet 2.5 mg PO BID Qty: 60 5RF gabapentin 300 mg capsule 300 mg PO BEDTIME aspirin 81 mg Tablet,Chewable 81 mg PO DAILY fluoxetine 20 mg capsule 20 mg PO DAILY sevelamer carbonate 800 mg tablet 800 mg PO TIDWM trazodone 50 mg Tablet 50 mg PO BEDTIME docusate sodium 100 mg Tablet 100 mg PO DAILY atorvastatin 80 mg Tablet 80 mg PO DAILY carvedilol 6.25 mg Tablet 6.25 mg PO BID Rx Instructions: must administer with a meal/food pantoprazole 40 mg Tablet,Delayed Release (Dr/Ec) 40 mg PO DAILY oxycodone 5 mg tablet 5 mg PO Q4H PRN (Reason: Pain) Rx Instructions: Partial Fill upon patient request. hydralazine 10 mg Tablet 10 mg PO TID lisinopril 20 mg Tablet 20 mg PO DAILY paroxetine HCl 30 mg Tablet 30 mg PO DAILY ondansetron 4 mg Tablet,Disintegrating 4 mg PO Q6H PRN (Reason: Nausea) cyclobenzaprine 5 mg Tablet 5 mg PO TID ascorbic acid (vitamin C) 250 mg Tablet 250 mg PO DAILY nitroglycerin 0.4 mg Tablet, Sublingual 0.4 mg SUBLINGUAL Q5M PRN (Reason: Chest Pain) Rx Instructions: do not exceed 3 doses per episode ferrous sulfate 325 mg (65 mg iron) Tablet,Delayed Release (Dr/Ec) 325 mg PO DAILY acetaminophen 325 mg tablet 650 mg PO Q4H PRN (Reason: Pain) Discontinued furosemide 80 mg Tablet 80 mg PO TUTHSA@0900 Discharge Orders: Discharge Order (Routine); Ordered 06/13/23 Ordered By: Jose Whiting Diet: Low fat, low cholesterol Activity on Discharge: As tolerated Stand Alone Forms: Patient Portal Discharge page Care Plan Goals: Recent left hip surgery continue physical therapy DC left knee immobilizer Heart failure resolved preserved EF continue Lasix Continue hemodialysis Health Concerns: Continue all home medications as before Plan of Treatment: Outpatient follow-up with primary care physician and Nephrology Assessment: As above
[2023-06-13] MEDS: oxyCODONE HCl Immed Release 5 MG TABLET PO (14:43)
--- NOTE | 2023-06-13 14:54 | MHC.CM.PN ---
PT BEING DCD TODAY AT 4 NOTIFIED OF DC
[2023-06-13 15:26] VITALS: BP 140/77; PULSE 78; RESP 16; TEMP 36.7; O2SAT 99
== END 2023-06-13 16:45 | disposition skilled nursing facility (03) | DRG 291 ==
LOC: HO.ED 12:55 → HO.EDOVER 14:36 → HO.IMC 15:21 → HO.S3 06-11 17:55
PROVIDERS: Family Medicine; Internal Medicine Nephrology; Physician Assistant; Admitting Provider Student in an Organized Health Care Education/Training Program; Emergency Provider Emergency Medicine; PCP Family Medicine; Visit Provider Hospitalist
DX: I13.2 Hypertensive heart and chronic kidney disease with heart failure and with stage 5 chronic kidney disease, or end stage renal disease (principal); I50.23 Acute on chronic systolic (congestive) heart failure; U07.1 COVID-19; N18.6 End stage renal disease; C34.32 Malignant neoplasm of lower lobe, left bronchus or lung; J84.9 Interstitial pulmonary disease, unspecified; E22.2 Syndrome of inappropriate secretion of antidiuretic hormone; E87.5 Hyperkalemia; D63.1 Anemia in chronic kidney disease; I48.0 Paroxysmal atrial fibrillation; D63.0 Anemia in neoplastic disease; F39 Unspecified mood [affective] disorder; I25.10 Atherosclerotic heart disease of native coronary artery without angina pectoris; I35.0 Nonrheumatic aortic (valve) stenosis; Z99.2 Dependence on renal dialysis; Z91.148 Patient's other noncompliance with medication regimen for other reason; Z95.1 Presence of aortocoronary bypass graft; Z79.01 Long term (current) use of anticoagulants; Z79.82 Long term (current) use of aspirin; Z79.899 Other long term (current) drug therapy
CPT/HCPCS: 0241U; 36415; 71045; 71046; 71275; 73552; 80048; 80053; 82728; 83540; 83615; 83735; 83880; 84145; 84484; 85025; 85027; 85379; 85610; 86140; 90999; 93005; 93306; 97162; 99285; J0248; J1940; J2270; Q9957; Q9967

== ENCOUNTER 2023-06-08 14:15 | Outpatient (BNV) | payer MEDICARE, MEDICAID, SELFPAY | END 2023-06-09 07:00 | PROVIDERS: Admitting Provider Student in an Organized Health Care Education/Training Program; Emergency Provider Emergency Medicine; PCP Family Medicine; Visit Provider Internal Medicine Cardiovascular Disease | DX: I35.0 Nonrheumatic aortic (valve) stenosis (principal) | CPT/HCPCS: 93306 ==

== ENCOUNTER → 2023-06-08 14:15 | Outpatient (BNV) | payer MEDICARE, MEDICAID, SELFPAY | PROVIDERS: Admitting Provider Student in an Organized Health Care Education/Training Program; Emergency Provider Emergency Medicine; PCP Family Medicine; Visit Provider Internal Medicine | DX: C34.82 Malignant neoplasm of overlapping sites of left bronchus and lung (principal) | CPT/HCPCS: 99222 ==

== ENCOUNTER → 2023-06-08 14:15 | Outpatient (BNV) | payer MEDICARE, MEDICAID, SELFPAY | PROVIDERS: Admitting Provider Student in an Organized Health Care Education/Training Program; Emergency Provider Emergency Medicine; PCP Family Medicine; Visit Provider Student in an Organized Health Care Education/Training Program | DX: S72.392A Other fracture of shaft of left femur, initial encounter for closed fracture (principal) | CPT/HCPCS: 99223; 99232; 99233; 99239 ==

== ENCOUNTER → 2023-06-08 14:15 | Outpatient (BNV) | payer MEDICARE, MEDICAID, SELFPAY | PROVIDERS: Admitting Provider Student in an Organized Health Care Education/Training Program; Emergency Provider Emergency Medicine; PCP Family Medicine; Visit Provider Physician Assistant | DX: M97.12XA Periprosthetic fracture around internal prosthetic left knee joint, initial encounter (principal) | CPT/HCPCS: 99024 ==

== ENCOUNTER 2023-07-24 06:32 | Outpatient (REF) | payer MEDICARE, MEDICAID, SELFPAY | END 2023-07-24 06:33 | disposition home or self-care (01) | LOC: HO.HOSX 06:32 | PROVIDERS: Visit Provider Physician Assistant | DX: Z13.89 Encounter for screening for other disorder (principal) ==

== ENCOUNTER 2023-07-25 17:29 | Inpatient (IN) | payer MEDICARE, MEDICAID, SELFPAY ==
--- NOTE | ~2023-07-25 | CT_ITS ---
EXAMINATION: CT ABDOMEN AND PELVIS WITHOUT CONTRAST CLINICAL INFORMATION: Acute renal failure COMPARISON: None available. TECHNIQUE: Multidetector volumetric imaging was performed from the superior aspect of the liver through the pubic symphysis. Sagittal and coronal reformatted images were obtained on the technologist's workstation. This CT examination was performed using dose optimization techniques as appropriate, variously including the following: *Automated exposure control *Adjustment of mA and/or kV according to patient size (this includes techniques or standardized protocols for targeted exams where dose is matched to indication/reason for exam; i.e. extremities or head) *Use of iterative reconstruction technique DLP: 347 mGy-cm FINDINGS: LUNG BASES: Left lower lobe atelectasis consolidation. Moderate left pleural effusion. Small right pleural effusion and lower lobe subsegmental atelectasis. Enlarged heart. Coronary artery and aortic valve calcification. Central catheter tip projects over IVC. LIVER, GALLBLADDER, AND BILIARY TREE: The liver is normal in size, shape, and attenuation. No focal hepatic lesion or biliary ductal dilatation is present. Gallbladder is contracted. There are small gallstones. There is mild intra and extrahepatic biliary duct dilatation. Common bile duct measures 1. 3 cm. increased attenuation seen in the distal common bile duct questionable for small distal common bile duct stones. PANCREAS: Unremarkable. SPLEEN: Unremarkable. ADRENAL GLANDS: Unremarkable. KIDNEYS AND URETERS: Atrophic-appearing kidneys. Bilateral cysts. No imaging follow-up recommended. Probable combination of vascular calcifications and small stones. No hydronephrosis BLADDER: Unremarkable. GASTROINTESTINAL TRACT: Constipation and diverticulosis. No evidence of diverticulitis appendix not definitely seen. No inflammatory changes in the right lower quadrant small esophageal hernia. Stomach is normal. The small bowel is normal. ABDOMINAL WALL: No significant hernia is appreciated. LYMPH NODES: Normal. VASCULAR: Severe atherosclerotic disease. No aneurysm PELVIC VISCERA: Unremarkable. OSSEOUS STRUCTURES: Fracture of the left inferior pubic ramus and medial acetabulum. Question underlying nonocclusive lesion in the left ramus/pathologic fracture. Intramedullary charity and compression/lag screw transfixing right femoral intertrochanteric fracture. Mild T12 body impression fracture. Osteopenia. CT/CT abdomen pelvis wo IV con IMPRESSION: 1. Bilateral pleural effusions left greater than right. Left lower lobe atelectasis consolidation. 2. Cholelithiasis. Mild intra and extrahepatic biliary duct dilatation. 3. Attenuation seen in the distal common bile duct. Choledocholithiasis not excluded. 4. Atrophic kidneys. Bilateral extensive renal calcifications probably representing a mixture of vascular calcifications and small stones. No hydronephrosis. 5. Constipation and diverticulosis. 6. Severe atherosclerotic disease. Fleischner guidelines were followed.
--- NOTE | ~2023-07-25 | XR_ITS ---
EXAMINATION: XR CHEST CLINICAL INFORMATION: SOB COMPARISON: Chest 07/25/2023 TECHNIQUE: Frontal view of the chest was obtained. FINDINGS: The lungs are hypoexpanded with patchy opacity seen in both lung base likely combination of underlying infiltrate/atelectasis and effusion. Pulmonary vascularity is slightly prominent bilaterally question congestion. The heart size is normal. There is a left sided inserted dialysis catheter in the right atrium. There is a atrial appendage clip noted. There is complete absorption of left humeral head secondary to degenerative arthritis. There is a right shoulder prosthesis in place. Chronic deformity left lateral ribs. No other bony abnormality seen. XR/XR chest 1V IMPRESSION: 1. Bilateral lower lobe patchy opacity likely combination of infiltrate/atelectasis and effusion. 2. There is mild pulmonary vascular congestion. 3. Left-sided inserted dialysis catheter tip in right atrium.
--- NOTE | ~2023-07-25 | XR_ITS ---
EXAMINATION: XR CHEST CLINICAL INFORMATION: Fever, cough. COMPARISON: Chest radiograph 06/10/2023. TECHNIQUE: 2 views of the chest were obtained. FINDINGS: Stable prominence of the cardiomediastinal silhouette. Midline sternotomy wires. Atrial appendage clip. Multiple mediastinal surgical clips. Dual lumen central venous dialysis catheter terminating at the level of the right atrium. Worsening pulmonary aeration in the left lower lobe with increased hazy airspace opacities and new trace amount of left-sided pleural fluid. No pneumothorax. Clear right lung. Chronic left-sided rib deformities. Chronic left humeral head deformity. Redemonstration of right shoulder hemiarthroplasty with a stable mild superior subluxation of the prosthetic head with respect to the glenoid and significant acromiohumeral narrowing consistent with rotator cuff disease. Normal appearance of the included portions of the upper abdomen. XR/XR chest 2V IMPRESSION: Worsening pulmonary aeration in the left lower lobe with increased hazy airspace opacities and new trace amount of left-sided pleural fluid. Findings are indeterminate and could be related with subsegmental atelectasis and pulmonary edema, although early infiltrates are difficult to exclude. Continued follow-up recommended.
[2023-07-25 17:41] VITALS: BP 176/74; PULSE 90; O2SAT 98
[2023-07-25 18:05] VITALS: BP 117/57; PULSE 87; RESP 16; TEMP 37.5; O2SAT 94; BMI 20.7
[2023-07-25 18:59] LABS: MANUAL DIFF FLAG NO
[2023-07-25 19:07] LABS: Basophils Percent Auto 0.3 % (0-2); Eosinophils Percent Auto 0.4 % (0-4); Hematocrit 27.5 % (37.0-47.0); Hemoglobin 8.7 g/dl (12.0-16.0); Imm Gran Abs Auto 0.06 X10*3/uL (0.00-0.03); Imm Gran Pct Auto 0.6 % (0.0-0.4); Lymphocytes Absolute Auto 1.3 X10*3/uL (1.2-4.9); Lymphocytes Percent Auto 11.6 % (20-40); Mean Corpuscular HGB Conc 31.6 g/dl (31.0-35.0); Mean Corpuscular Hemoglobin 30.3 pg (27.0-33.0); Mean Corpuscular Volume 95.8 fL (80.0-98.0); Mean Platelet Volume 9.7 fL (9.4-12.3); Monocytes Percent Auto 9.7 % (2-11); Neutrophils Absolute Auto 8.3 x10*3/uL (2.0-8.3); Neutrophils Percent Auto 77.4 % (45-73); Platelet Count 133 X10*3/uL (160-400); Red Blood Count 2.87 X10*6/uL (4.20-5.50); Red Cell Distribution Width 14.6 % (11.0-16.0); White Blood Count 10.7 X10*3/uL (4.8-10.8)
[2023-07-25 19:10] VITALS: BP 117/63; PULSE 86; RESP 22; TEMP 37.8; O2SAT 97
[2023-07-25 19:23] LABS: Alanine Aminotransferase 5 U/L (0-31); Albumin Level 2.7 g/dL (3.5-5.0); Alkaline Phosphatase 109 U/L (39-117); Anion Gap 16 (12-20); Aspartate Amino Transferase 14 U/L (5-31); Bilirubin Total 0.3 mg/dL (0.0-1.0); Blood Urea Nitrogen 30 mg/dL (9-16); Calcium 7.4 mg/dL (8.4-10.2); Carbon Dioxide 20 mmol/L (22-29); Chloride 99 mmol/L (96-108); Creatinine Clr Calc Pharmacy 8.8; Estimated Glomerular Filt Rate 11; Glucose Random 88 mg/dL (60-115); Sodium 131 mmol/L (135-145); Total Protein 6.9 g/dL (6.5-8.0)
[2023-07-25 19:37] LABS: Influenza A PCR NEGATIVE (Negative); Influenza B PCR NEGATIVE (Negative); Resp Syncy Virus RNA Qual PCR NEGATIVE (Negative); SARS COV2 PCR INHOUSE NEGATIVE (Negative)
--- OUTSIDE RECORDS SUMMARY | 2023-07-25 19:38 | XMS_ITS | Continuity of Care Document ---
Author Name Unknown Organization [facility] Address [address] [place] [address] elia, [address] [place] [address]- Care Team Providers Care Director Of Billing Name Role Phone Ayah Villalta MD Primary Care Physician [facility]): 06/06/23 - 07/06/23 [facility] [address] [place] [address], [address] [place], [place] [address] Allergies, Adverse Reactions, Alerts [...] tetanus/diphtheria/pertussis, acel(Tdap) 09/13/12 Given 1Result Comment: [05/31/2017] [id number] 2Admin Note: 1-13 [facility] [place] [...] opioid drug. Start Date: 06/01/23 Status: Ordered calcitriol 0.25 mcg oral capsule [...] Patch, ; Start Date: 10/28/21 Status: Ordered Docusate Sodium Capsule 100 mg, 1, capsule, By Mouth, 2 times a day, PRN, Refills 0, Maintenance, Constipation, 06/01/23 14:30:00 EDT, Partial fill upon patient request if the prescription is for a schedule II opioid drug. Start Date: 06/01/23 Status: Ordered Eliquis 2.5 mg oral tablet 1 tablet, By Mouth, 2 times a day, # 56 tablet, 10 Refills, Maintenance, 09/20/22 8:15:00 EST, [facility], 162.5, cm, 06/28/22 11:05:00 EST, [...] 06/27/22 Status: Ordered oxyCODONE 5 mg oral capsule 1 capsule = 5 mg, By Mouth, Every 6 hours, 0 Refills, Maintenance, 06/28/23 15:15:00 EST, Partial fill upon patient request if the prescription is for a schedule II opioid drug. 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 Confirmed 08/14/22 Active Lumbar spondylosis Confirmed 10/19/22 Active Aortic stenosis, mild Confirmed Active Pulmonary hypertension, mild Confirmed Active 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 Active OA (osteoarthritis) of knee - both knees Confirmed Active Osteoarthritis of lumbar spine Confirmed Active Osteopenia Confirmed Active Peripheral neuropathy Confirmed Active Rectal prolapse Confirmed Active Severe obesity Confirmed Active Stress fracture of neck of [...] this and has follow up with them Social History Social History Type Response Smoking Status Former smoker, quit more than 30 days ago; Other: quit 04/2023; 2 cig/day x 45 years; entered on: 06/28/23 Sex Patient Care team information Care Team Personnel Name: Stephanie Maher RN Position: [facility] Outreach Member Role: Primary Care Nurse Name: Quan Virgen RN Position: S RN Member Role: Primary Care Nurse Name: Rachel Sotelo Position: S RN Member Role: Primary Care Nurse Name: Susana Chaney LPN Position: S RN Member Role: Primary Care Nurse Name: Betty Cabrera NP Position: [facility] Associate Professional Member Role: Primary Care Nurse Address: Address: [address] [place] [place] [address]- Name: Uma Ndiaye Position: [facility] Outreach Member Role: Lifetime Consulting Physician Name: Felipa Buenrostro RN Position: [facility] RN Member Role: Primary Care Nurse Name: Gracie Casiano Position: [facility] Outreach Member Role: Lifetime Consulting Physician Name: Christy Tillman NP Position: [facility] Associate Professional Member Role: Lifetime Consulting Provider Address: Address: [address] [place], [place] [address] [place] [address]- Name: Pushpa Baird RN Position: [facility] RN Member Role: Primary Care Nurse Name: Kirk Morse DO Position: [facility] Renal MD Member Role: Lifetime Consulting Physician Address: Address: [address] [place], [place] [address] [place], [place] [address] Name: Uma Valdovinos Position: [facility] Outreach Member Role: Lifetime Consulting Physician Name: Janelle Arora RN Position: [facility] RN Member Role: Primary Care Nurse Name: Gabriela Lane RN Position: [facility] RN Member Role: Primary Care Nurse Name: Prasanna Belle III, RN Position: [facility] RN Member Role: Primary Care Nurse Name: Ayah Villalta MD Position: Reference Physician Member Role: PCP Address: Address: [address] [place] [address]- Name: Suellen Lazcano RN Position: [facility] ED RN W/OE and Tasks Member Role: Primary Care Nurse Name: Rubia Pardo LPN Position: [facility] RN Member Role: Primary Care Nurse Name: Florencio Ferreira MD Position: [facility] Renal MD Member Role: Lifetime Consulting Physician [facility]: [facility] [facility] [place] [address]- Name: Priscila López RN Position: S RN Member Role: Primary Care Nurse Name: Felipa Burr RN Position: S RN Member Role: Primary Care Nurse Name: Jennifer Alex RN Position: S RN Member Role: Primary Care Nurse Name: Saskia Fontana RN Position: S RN Member Role: Primary Care Nurse Care Team Related Persons Name: VAL HEARN Address: home [address] [place] [address] Name: ABIMAEL HEARN Name: YUSUF HEARN Address: home [address] [place] [address]
--- OUTSIDE RECORDS SUMMARY | 2023-07-25 19:40 | XMS_ITS | Continuity of Care Document ---
Author Name Unknown Organization [facility] Address [address] [place] [address], [address] [place] [address]- Care Team Providers Care Mental Health Assistant Name Role Phone Ayah Villalta MD Primary Care Physician [facility] Date[facility]s): 06/28/23 - 07/05/23 [facility] [address] [place] [address], [address] [place], [place] [address] Attending Physician: Becky Crawley MD Referring Physician: Leah Sultana MD Allergies, Adverse Reactions, Alerts Substance Reaction [...] tetanus/diphtheria/pertussis, acel(Tdap) 09/13/12 Given 1Result Comment: [05/31/2017] [id number] 2Admin Note: 1-13 [facility] [place] [...] tablet, 10 Refills, Maintenance, 09/20/22 8:15:00 EST, [facility], 162.5, cm, 06/28/22 11:05:00 EST, [...] 0 Refills, Maintenance, 06/01/23 14:44:00 EDT, Tablet, [facility], Partial fill upon patient [...] (CKD) stage G3b/A3 Confirmed Active CAD in [place]' artery Confirmed Active COVID-19 2 Confirmed 06/01/23 [...] Active Chronic anticoagulation (apixaban) Confirmed 08/14/22 Active longterm current use of aspirin Confirmed 08/14/22 Active [...] this and has follow up with them Vital Signs Most recent to oldest [Reference Range]: 1 Height 154.94 cm (06/28/23 3:06 PM) Oxygen Saturation [94-100 %] 99 % (06/28/23 3:06 PM) Pulse Rate [55-90 bpm] 96 bpm *H* (06/28/23 3:06 PM) Blood Pressure [90-138/55-84 mm Hg] 176/ 90mm Hg *H* (06/28/23 3:06 PM) Temperature [96.8-100.4 DegF] 98.1 DegF (06/28/23 3:06 PM) Mode of Delivery (Oxygen) Room air (06/28/23 3:06 PM) Blood pressure sites Arm, right (06/28/23 3:06 PM) Temperature Route Temporal (06/28/23 3:06 PM) Weight Obtained Via Standing scale (06/28/23 3:06 PM) Social History Social History Type Response Smoking Status Former smoker, quit more than 30 days ago; Other: quit 04/2023; 2 cig/day x 45 years; entered on: 06/28/23 Sex Patient Care team information Care Team Personnel Name: Stephanie Maher RN Position: [facility] Outreach Member Role: Primary Care Nurse Name: Quan Virgen RN Position: [facility] RN Member Role: Primary Care Nurse Name: Rachel Sotelo Position: [facility] RN Member Role: Primary Care Nurse Name: Susana Chaney LPN Position: [facility] RN Member Role: Primary Care Nurse Name: Betty Cabrera NP Position: [facility] Associate Professional Member Role: Primary Care Nurse Address: Address: [address] [place] [address]- Name: Uma Ndiaye Position: S Outreach Member Role: Lifetime Consulting Physician Name: Felipa Buenrostro RN Position: S RN Member Role: Primary Care Nurse Name: Gracie Casiano Position: [facility] Outreach Member Role: Lifetime Consulting Physician Name: Christy Tillman NP Position: [facility] Associate Professional Member Role: Lifetime Consulting Provider Address: Address: [address] [place], [place] [address] [place] [address]- Name: Pushpa Baird RN Position: [facility] RN Member Role: Primary Care Nurse Name: Kirk Morse DO Position: [facility] Renal MD Member Role: Lifetime Consulting Physician Address: Address: [address] [facility] [place] [address]- [place] Name: Uma Valdovinos Position: [facility] Outreach Member Role: Lifetime Consulting Physician Name: Janelle Arora RN Position: [facility] RN Member Role: Primary Care Nurse Name: Gabriela Lane RN Position: S RN Member Role: Primary Care Nurse Name: Prasanna Belle III, RN Position: [facility] RN Member Role: Primary Care Nurse Name: Ayah Villalta MD Position: Reference Physician Member Role: PCP Address: Address: [address] [place] [address]- [place] Name: Suellen Lazcano RN Position: [facility] ED RN W/OE and Tasks Member Role: Primary Care Nurse Name: Rubia Pardo LPN Position: [facility] RN Member Role: Primary Care Nurse Name: Florencio Ferreira MD Position: [facility] Renal MD Member Role: Lifetime Consulting Physician Address: Address: [address] [facility] [place] [address]- [place] Name: Priscila López RN Position: [facility] RN Member Role: Primary Care Nurse Name: Felipa Burr RN Position: [facility] RN Member Role: Primary Care Nurse Name: Jennifer Alex RN Position: [facility] RN Member Role: Primary Care Nurse Name: Saskia Fontana RN Position: [facility] RN Member Role: Primary Care Nurse Care Team Related Persons Name: VAL HEARN Address: [address] [place] [address] Name: ABIMAEL HEARN Name: YUSUF HEARN Address: home [address] [place] [address]
--- OUTSIDE RECORDS SUMMARY | 2023-07-25 19:40 | XMS_ITS | Continuity of Care Document ---
Author Name Unknown Organization [facility] Address [address] [place] [address], [address] [place] [address]- Care Team Providers Care Director Targeted Marketing Name Role Phone Ayah Villalta MD Primary Care Physician [facility]s): 05/19/23 - 06/29/23 [facility] [address] [place] [address], [address] [place] [address]- Encounter Diagnosis Pulmonary hypertension, mild(Discharge Diagnosis) - 05/23/23 Aortic stenosis, mild(Discharge Diagnosis) - 05/23/23 Attending Physician: Lalito Douglas DO Referring Physician: Leah Sultana MD Allergies, Adverse [...] tetanus/diphtheria/pertussis, acel(Tdap) 09/13/12 Given 1Result Comment: [05/31/2017] [id number] 2Admin Note: 1-13 [facility] [place] [...] tablet, 10 Refills, Maintenance, 09/20/22 8:15:00 EST, [facility], 162.5, cm, 06/28/22 11:05:00 EST, [...] 0 Refills, Maintenance, 06/01/23 14:44:00 EDT, Tablet, [facility], Partial fill upon [...] (CKD) stage G3b/A3 Confirmed Active CAD in [place] artery Confirmed Active COVID-19 2 Confirmed 06/01/23 [...] Active Chronic anticoagulation (apixaban) Confirmed 08/14/22 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 Confirmed 08/14/22 Active [...] with surgery and charity placement Has seen [facility] for this and has follow up with them Diagnosis Diagnosis Type Effective Dates Health Status Cl inical Service Informant Pulmonary hypertension, mild Discharge Diagnosis 05/23/23 Aortic stenosis, mild Discharge Diagnosis 05/23/23 Procedures Procedure Date Related Diagnosis Body Site Status Open treatment of femoral sh aft fracture, with or without external fixation, with insertion of intramedullary implant, with or without cerclage and/or locking screws 04/22/23 Completed Ligation or banding of angio access arteriovenous fistula 10/10/22 Completed Revision, open, arteriovenou s fistula; with thrombectomy, autogenous or nonautogenous dialysis graft (separate procedure) 10/03/22 Completed Open treatment of femoral sh aft fracture, with or without external fixation, with insertion of intramedullary implant, with or without cerclage and/or locking screws 05/24/22 Completed Revision, open, arteriovenou s fistula; with thrombectomy, autogenous or nonautogenous dialysis graft (separate procedure) 05/03/22 Completed Creation of arteriovenous fi stula by other than direct arteriovenous anastomosis (separate procedure); autogenous graft 02/03/22 Completed Proctoplasty; for prolapse o f mucous membrane 10/29/21 Completed Replacement, complete, of a tunneled centrally inserted central venous catheter, without subcutaneous port or pump, through same venous access 12/25/20 Completed Coronary artery bypass, usin g venous graft(s) and arterial graft(s); 2 venous grafts (List separately in addition to code for primary procedure) 12/22/20 Completed Arthroplasty, glenohumeral j oint; total shoulder (glenoid and proximal humeral replacement (eg, total shoulder)) Completed Arthroplasty, knee, condyle and plateau; medial AND lateral compartments with or without patella resurfacing (total knee arthroplasty) Completed Neuroplasty and/or transposi tion; median nerve at carpal tunnel Co mpleted Social History Social History Type Response Smoking Status Former smoker, quit more than 30 days ago; Other: quit 04/2023; 2 cig/day x 45 years; entered on: 06/28/23 Sex Patient Care team information Care Team Personnel Name: Stephanie Maher RN Position: [facility] Outreach Member Role: Primary Care Nurse Name: Quan Virgen RN Position: [facility] RN Member Role: Primary Care Nurse Name: Rachel Sotelo Position: S RN Member Role: Primary Care Nurse Name: Susana Chaney LPN Position: S RN Member Role: Primary Care Nurse Name: Betty Cabrera NP Position: [facility] Associate Professional Member Role: Primary Care Nurse Address: Address: [address] [place] [address]- [place] Name: Uma Ndiaye Position: [facility] Outreach Member Role: Lifetime Consulting Physician Name: Felipa Buenrostro RN Position: S RN Member Role: Primary Care Nurse Name: Gracie Casiano Position: [facility] Outreach Member Role: Lifetime Consulting Physician Name: Christy Tillman NP Position: [facility] Associate Professional Member Role: Lifetime Consulting Provider Address: Address: [address] [place], [place] [address] [place] [address]- Name: Pushpa Baird RN Position: [facility] RN Member Role: Primary Care Nurse Name: Kirk Morse DO Position: [facility] Renal MD Member Role: Lifetime Consulting Physician Address: Address: [address] [place], [place] [address] [place] [address]- Name: Uma Valdovinos Position: [facility] Outreach Member Role: Lifetime Consulting Physician Name: Janelle Arora RN Position: [facility] RN Member Role: Primary Care Nurse Name: Gabriela Lane RN Position: [facility] RN Member Role: Primary Care Nurse Name: Prasanna Belle III, RN Position: [facility] RN Member Role: Primary Care Nurse Name: Ayah Villalta MD Position: Reference Physician Member Role: PCP Address: Address: [address] [place] [address]- [place] Name: Suellen Lazcano RN Position: [facility] ED RN W/OE and Tasks Member Role: Primary Care Nurse Name: Rubia Pardo LPN Position: [facility] RN Member Role: Primary Care Nurse Name: Florencio Ferreira MD Position: [facility] Renal MD Member Role: Lifetime Consulting Physician Address: Address: [address] [facility] [place] [address]- [place] Name: Priscila López RN Position: [facility] RN Member Role: Primary Care Nurse Name: Felipa Burr RN Position: [facility] RN Member Role: Primary Care Nurse Name: Jennifer Alex RN Position: S RN Member Role: Primary Care Nurse Name: Saskia Fontana RN Position: S RN Member Role: Primary Care Nurse Care Team Related Persons Name: VAL HEARN Address: [address] [place] [address] Name: ABIMAEL HEARN Name: YUSUF HEARN Address: [address] [place] [address]
--- OUTSIDE RECORDS SUMMARY | 2023-07-25 19:41 | XMS_ITS | Continuity of Care Document ---
Author Name Unknown Organization [facility] Address [address] [place] [address] elia, [address] [place] [address]- Care Team Providers Care Glass Grinder Name Role Phone Ayah Villalta MD Primary Care Physician [phone] [facility]counter [facility]): 06[facility]12[facility]23 - 07/12/23 [facility] [address] [place] [address], [address] [place], [place] [address] Allergies, Adverse Reactions, Alerts Substance Reaction Severity [...] tetanus/diphtheria/pertussis, acel(Tdap) 09/13/12 Given 1Result Comment: [05/31/2017] [id number] 2Admin Note: 1-13 [facility] [place] [...] tablet, 10 Refills, Maintenance, 09/20/22 8:15:00 EST, [facility], 162.5, cm, 06/28/22 11:05:00 EST, [...] 0 Refills, Maintenance, 06/01/23 14:44:00 EDT, Tablet, [facility], Partial fill upon patient [...] (CKD) stage G3b/A3 Confirmed Active CAD in [place] artery Confirmed Active COVID-19 2 Confirmed 06/01/23 [...] Active Chronic anticoagulation (apixaban) Confirmed 08/14/22 Active 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 08/14/22 Active [...] Team Personnel Name: Stephanie Maher RN Position: [facility] Outreach Member Role: Primary Care Nurse Name: Quan Virgen RN Position: S RN Member Role: Primary Care Nurse Name: Rachel Sotelo Position: S RN Member Role: Primary Care Nurse Name: Susana Chaney LPN Position: S RN Member Role: Primary Care Nurse Name: Betty Cabrera NP Position: [facility] Associate Professional Member Role: Primary Care Nurse Address: Address: [address] [place] [address]- Name: Uma Ndiaye Position: [facility] Outreach Member Role: Lifetime Consulting Physician Name: Felipa Buenrostro RN Position: [facility] RN Member Role: Primary Care Nurse Name: Gracie Casiano Position: [facility] Outreach Member Role: Lifetime Consulting Physician Name: Christy Tillman NP Position: [facility] Associate Professional Member Role: Lifetime Consulting Provider Address: Address: [address] [place], [place] [address] [place] [address]- Name: Pushpa Baird RN Position: [facility] RN Member Role: Primary Care Nurse Name: Kirk Morse DO Position: [facility] Renal MD Member Role: Lifetime Consulting Physician Address: Address: [address] [place], [place] [address] [place], [place] [address] Name: Uma Valdovinos Position: [facility] Outreach Member Role: Lifetime Consulting Physician Name: Janelle Arora RN Position: [facility] RN Member Role: Primary Care Nurse Name: Gabriela Lane RN Position: [facility] RN Member Role: Primary Care Nurse Name: Prasanna Belle III, RN Position: [facility] RN Member Role: Primary Care Nurse Name: Ayah Villalta MD Position: Reference Physician Member Role: PCP Address: Address: [address] [place] [address]- Name: Suellen Lazcano RN Position: [facility] ED RN W/OE and Tasks Member Role: Primary Care Nurse Name: Rubia Pardo LPN Position: [facility] RN Member Role: Primary Care Nurse Name: Florencio Ferreira MD Position: [facility] Renal MD Member Role: Lifetime Consulting Physician Address: Address: [address] [facility] [place] [address]- Name: Priscila López RN Position: S RN Member Role: Primary Care Nurse Name: Felipa Burr RN Position: S RN Member Role: Primary Care Nurse Name: Jennifer Alex RN Position: S RN Member Role: Primary Care Nurse Name: Saskia Fontana RN Position: S RN Member Role: Primary Care Nurse Care Team Related Persons Name: VAL HEARN Address: [address] [place] [address] Name: ABIMAEL HEARN Name: YUSUF HEARN Address: [address] [place] [address]
--- OUTSIDE RECORDS SUMMARY | 2023-07-25 19:42 | XMS_ITS | Continuity of Care Document ---
Author Name Unknown Organization [facility] ter Address [address] [place] [address]- Care Team Providers Care Benefits Analyst Name Role Phone Ayah Villalta MD Primary Care Physician [phone] [facility]counter [facility] Date(s): 07/14/23 - 07/14/[address] [id number] Discharge Disposition: A-D/C Home Attending Physician: Rodney Spann MD Admitting Physician: Rodney Spann MD Referring Physician: Rodney Spann MD Allergies, Adverse Reactions, Alerts Substance Reaction [...] tetanus/diphtheria/pertussis, acel(Tdap) 09/13/12 Given 1Result Comment: [05/31/2017] [id number] 2Admin Note: 1-13 [facility] [place] [facility] [place] [...] EDT, ; Start Date: 06/13/22 Status: Ordered Eliquis 2.5 mg oral tablet 1 tablet, By Mouth, 2 times a day, # 56 tablet, 10 Refills, Maintenance, 09/20/22 8:15:00 EST, [facility], 162.5, cm, 06/28/22 11:05:00 EST, [...] opioid drug. 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 OA (osteoarthritis) of knee - both knees Confirmed Active Osteoarthritis of lumbar spine Confirmed Active Osteopenia Confirmed Active Peripheral neuropathy Confirmed Active Rectal prolapse Confirmed Active Stress fracture of neck of femur 6 Confirmed 12/14/22 Active Vitamin D deficiency Confirmed Active 1Outside [...] recent to oldest [Reference Range]: 1 Height 155 cm (07/14/23 2:54 PM) Oxygen Saturation [94-100 %] 98 % (07/14/23 2:54 PM) Pulse Rate [55-90 bpm] 82 bpm (07/14/23 2:54 PM) Blood Pressure [90-138/55-84 mm Hg] 176/ 118mm Hg *H* (07/14/23 2:54 PM) Respiratory Rate [16-30 br/min] 14 br/mi n *L* (07/14/23 2:54 PM) Temperature [96.8-100.4 DegF] 98.8 DegF (07/14/23 2:54 PM) Mode of Delivery (Oxygen) Room air (07/14/23 2:54 PM) Blood pressure sites Arm, right (07/14/23 2:54 PM) Temperature Route Temporal (07/14/23 2:54 PM) Dry Weight 54.8 kg (07/14/23 2:54 PM) Social History Social History Type Response Smoking Status Former smoker, quit more than 30 days ago; Other: quit 04/2023; 2 cig/day x 45 years; entered on: 06/28/23 Sex Hospital Progress note * Katie Irwin RN: PERFORM, SIGN, VERIFY Event Display: Progress Note Hospital Authored Date: [id number] Patient: TRACEY HEARN Age: 73 years Sex: Female : 1950 Associated Diagnoses: None Author: Katie Irwin RN Discharge Information Pt unable to have procedure done today due to elevated BP. Given information and rescheduled appointment. Cancelled in pre op per anesthesia provider Silvino. Patient Care team information Care Team Personnel Name: Stephanie Maher RN Position: [facility] Outreach Member Role: Primary Care Nurse Name: Quan Virgen RN Position: S RN Member Role: Primary Care Nurse Name: Rachel Sotelo Position: S RN Member Role: Primary Care Nurse Name: Susana Chaney LPN Position: S RN Member Role: Primary Care Nurse Name: Betty Cabrera NP Position: [facility] Associate Professional Member Role: Primary Care Nurse Address: Address: [address] [place] [address]- Name: Uma Ndiaye Position: [facility] Outreach Member Role: Lifetime Consulting Physician Name: Felipa Buenrostro RN Position: [facility] RN Member Role: Primary Care Nurse Name: Gracie Casiano Position: [facility] Outreach Member Role: Lifetime Consulting Physician Name: Christy Tillman NP Position: [facility] Associate Professional Member Role: Lifetime Consulting Provider Address: Address: [address] [place], [place] [address] [place] [address]- Name: Pushpa Baird RN Position: [facility] RN Member Role: Primary Care Nurse Name: Kirk Morse DO Position: [facility] Renal MD Member Role: Lifetime Consulting Physician Address: Address: [address] [place], [place] [address] [place], [place] [address] Name: Uma Valdovinos Position: [facility] Outreach Member Role: Lifetime Consulting Physician Name: Janelle Arora RN Position: [facility] RN Member Role: Primary Care Nurse Name: Gabriela Lane RN Position: [facility] RN Member Role: Primary Care Nurse Name: Prasanna Belle III, RN Position: [facility] RN Member Role: Primary Care Nurse Name: Ayah Villalta MD Position: Reference Physician Member Role: PCP Address: Address: [address] [place] [address]- Name: Suellen Lazcano RN Position: [facility] ED RN W/OE and Tasks Member Role: Primary Care Nurse Name: Rubia Pardo LPN Position: [facility] RN Member Role: Primary Care Nurse Name: Florencio Ferreira MD Position: [facility] Renal MD Member Role: Lifetime Consulting Physician Address: Address: [address] [facility] [address] [facility] [address] [facility] [place] [address]- Name: Priscila López RN Position: S RN Member Role: Primary Care Nurse Name: Felipa Burr RN Position: S RN Member Role: Primary Care Nurse Name: Jennifer Alex RN Position: S RN Member Role: Primary Care Nurse Name: Saskia Fontana RN Position: S RN Member Role: Primary Care Nurse Care Team Related Persons Name: VAL HEARN Address: home [address] [place] [address] Name: ABIMAEL HEARN Name: YUSUF HEARN Address: [address] [place] [address]
--- OUTSIDE RECORDS SUMMARY | 2023-07-25 19:42 | XMS_ITS | Continuity of Care Document ---
Author Name Unknown Organization [facility] ter Address [address] [place] [address]- Care Team Providers Care Vat Packer Name Role Phone Ayah Villalta MD Primary Care Physician [facility] Date[facility]): 07/24/23 - 07/24/[address] [address] Discharge Disposition: A-D/C Home Attending Physician: Rodney [...] tetanus/diphtheria/pertussis, acel(Tdap) 09/13/12 Given 1Result Comment: [05/31/2017] [id number] 2Admin Note: 1-13 [facility] [place] [...] tablet, 10 Refills, Maintenance, 09/20/22 8:15:00 EST, [facility], 162.5, cm, 06/28/22 11:05:00 EST, Height, [...] (CKD) stage G3b/A3 Confirmed Active CAD in [place] artery Confirmed Active COVID-19 2 Confirmed 06/01/23 [...] Active Chronic anticoagulation (apixaban) 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 Confirmed 08/14/22 Active [...] oldest [Reference Range]: 1 2 3 Height 154 cm (07/24/23 1:31 PM) Weight 54.8 kg (07/24/23 1:31 PM) Oxygen Saturation [94-100 %] 94 % (07/24/23 3:43 PM) 93 % *L* (07/24/23 3:34 PM) 100 % (07/24/23 3:22 PM) Pulse Rate [55-90 bpm] 102 bpm *H* (07/24/23 1:31 PM) Body Mass Index [18.5-24.99 kg/m2] 23.11 kg/m2 (07/24/23 1:31 PM) Blood Pressure [90-138/55-84 mm Hg] 141/62mm Hg *H* (07/24/23 3:43 PM) 133/57mm Hg (07/24/23 3:34 PM) 145/63mm Hg *H* (07/24/23 3:22 PM) Respiratory Rate [16-30 br/min] 16 br/min (07/24/23 3:43 PM) 16 br/min (07/24/23 3:34 PM) 16 br/min (07/24/23 3:22 PM) Temperature [96.8-100.4 DegF] 97.8 DegF (07/24/23 3:01 PM) 98.8 DegF (07/24/23 1:31 PM) Liters per Minute 6 L/min (07/24/23 3:22 PM) 6 L/min (07/24/23 3:09 PM) 6 L/min (07/24/23 3:01 PM) Mode of Delivery (Oxygen) Room air (07/24/23 3:43 PM) Room air (07/24/23 3:34 PM) Simple face mask (07/24/23 3:22 PM) Blood pressure sites Arm, left (07/24/23 3:43 PM) Arm, left (07/24/23 3:34 PM) Arm, left (07/24/23 3:22 PM) Temperature Route Temporal (07/24/23 3:01 PM) Temporal (07/24/23 1:31 PM) Dry Weight 54.8 kg (07/24/23 1:31 PM) Weight Obtained Via Patient/family state d (07/24/23 1:31 PM) Dry Weight Obtained Via Patient/family s tated (07/24/23 1:31 PM) Social History Social History Type Response Smoking Status Former smoker, quit more than 30 days ago; Other: quit 04/2023; 2 cig/day x 45 years; entered on: 06/28/23 Sex Note * Event Display: GG Bronchoscopy Please click on pdf link to open report * Sunny Seals RN: PERFORM Event Display: Discharge/Transfer Note Hospital Authored Date: [id number] Nursing Discharge Note Entered On: 07/24/2023 15:06 EST Performed On: 07/24/2023 15:06 EST by Sunny Seals RN Nursing Discharge Note 2 Discharge Time : 07/24/2023 16:29 EST Sunny Seals RN - 07/24/2023 16:44 EST Discharge Level of Care at Discharge : Home/Retirement/Foster Care Patient Left Unit Via : Wheelchair Patient Accompanied Off Unit with : Responsible adult DC Instructions Provided & Signed by Pt : Yes Patient Understands D/C Instructions : Yes Patient Instructions Discharge Signed : Yes Did Pt have Specialty Bed or Wound Vac : No Sunny Seals RN - 07/24/2023 15:06 EST * Sunny Seals RN: PERFORM Event Display: Patient Education/Instruction Authored Date: [id number] Surgery Adult Discharge Instructions [address] [address] Name: TRACEY HEARN : 1950?? Visit: 07/24/2023 11:44?? Current Date: 07/24/2023 16:07 ?? Account: [id number]?? Surgery Discharge Instructions We would like to thank [...] and their families. Surveys are administered by [employer] ?? If further treatment with your primary care physician or another doctor is recommended, it is important for you to keep the appointment. Call your primary care physician or return to the Emergency Department immediately if your condition worsens, fails to improve, or new symptoms develop. If you need to find a doctor, you can call [facility] Seen for a referral at [phone] or toll free at [phone] ([phone]) or log in to [email or web address] ?? [facility], in keeping with [facility] guidance, no longer requires face masks for [...] a health care marcin of your choosing. [employer] is a website that allows you to securely view your medical information including your hospital discharge summary, office visit summaries, medications and follow-up visits. You can also request appointments, renew medications, and request access to your medical information using a health care marcin of your choosing, or just ask a question. You are entitled to know the individuals who participated in your treatment. This information is available within your medical record and will be provided upon your request. You can enroll at [email or web address] or register d uring your next office visit. You have been discharged from [facility], Patient Care Unit: ENDO??. If you have any questions regarding these instructions after you leave, please call us and we will be happy to assist you. [facility] Your Care Team Attending Physician Rodney Spann MD?? Discharging Providers Rodney Spann MD Reason for Admission LUNG CA Primary Care Provider Ambar GORMAN , Ayah Guzmán? Advance Directive Health Care Proxy on File Yes - Health Care Proxy Yes - MOLST What to do next Instructions From Your Doctor ?? Orders? 07/24/23 16:06:00 EST?? You Need to Schedule the Following Appointments Follow Up with??As Needed Follow Up with??Ayah Villalta MD When:??In 0 days Where: [address] [place] [address]- Business (1) Discharge Medications TRACEY HEARN :1950 Visit Date:07/24/2023 Medications: Please continue your medications until treatment is completed or stopped by your provider. You may resume your daily prescription medications. Discuss any questions related to medications with [...] Unchanged Atorvastatin (atorvastatin 80 mg oral tablet) 80 Milligram Oral Daily at Bedtime Unchanged Carvedilol (carvedilol 6.25 mg oral tablet) 1 tab(s) Oral Twice a day Unchanged Lisinopril (lisinopril 20 mg oral tablet) 1 tab(s) Oral Daily Unchanged Loperamide (loperamide 2 mg oral tablet) 1 tab(s) Oral Daily as needed for as needed Unchanged Sevelamer (sevelamer carbonate 800 mg oral tablet) 2 tab(s) Oral Twice a day Unchanged Trazodone (traZODone 100 mg oral tablet) 1 tab(s) Oral Daily at Bedtime Allergies (NKA means No Known Allergies) Adderall Duloxetine??(diarrhea) atenolol??(Cardiac Palpitations) doxycycline Education Materials Below is the list of Educational Leaflet Providered with your Discharge Instructions. Valuables and Belongings I fully understand and agree that [facility] accepts no responsibility for all [...] patient Date for Pt to Sign Valuables/Belongings: 07/24/23 13:31:00 ?? Valuables & Belongings ?? Clothes Electronic devices Jewelry Monetary Items Personal devices Miscellaneous Medications (Valuables) Valuables at Bedside Coat, Pants, Shirt, Shoes, Undergarments ? Valuables Sent Home ? Valuables Sent to Security ? Other Discharge Information ? Case Management Discharge Plan?? Discharge Plan?? Discharge Level of Care at Discharge: Home/Retirement/Foster Care ?? Pulmonary Rehab Status?? Pulmonary Rehab Discharge Status?? Respiratory Rate: 16 br/min ? Common Emergency Awareness Tips IS [...] of these heart attack warning signs, call 9-1-1 to get immediate medical attention! ?? Smoking can increase your chances of developing chronic health problems and can cause harmful effects to other family members in your house. If you smoke, you are strongly encouraged to quit. Please call [facility] [employer] Link at [phone] or [phone] ([phone]) or log in to [email or web address] for referrals to smoking cessation programs. ?? The National Suicide Prevention Hotline is available 06/03 if you or someone you know needs to find a reason to keep living. By calling 2-640-403-[employer] (3648) you'll be connected to a skilled, trained counselor at a crisis center in your area. SURGERY DISCHARGE INSTRUCTIONS SIGNATURE PAGE TRACEY HEARN Location:[facility] Registration Date and Time:07/24/2023 11:44 EST Primary Care Physician: Ambar GORMAN , Ayah Guzmán, Attending Physician: Zana GORMAN, Rodney, I TRACEY HEARN, have received the above patient education materials/instructions and have verbalized understanding. If ambulance or transport services are being used I further acknowledge being given a choice of service. ?? If you need to contact me, please call me at this number: . Patient/Hvac Service Manager Name: Patient/Hvac Service Manager Signature: Relationship to Patient: Witness Name/Signature: Date: * Sunny Seals RN: PERFORM, SIGN, VERIFY Event Display: Patient Education Handout Authored Date: Patient Care team information Care [...] Member Role: Primary Care Nurse Address: Address: [address] [place] [address] Name: Uma Ndiaye Position: [facility] Outreach Member Role: Lifetime Consulting Physician Name: Felipa Buenrostro RN Position: [facility] RN Member Role: Primary Care Nurse Name: Gracie Casiano Position: [facility] Outreach Member Role: Lifetime Consulting Physician Name: Christy Tillman NP Position: [facility] Associate Professional Member Role: Lifetime Consulting Provider Address: Address: [address] [place], [place] [address] [place] [address]- Name: Pushpa Baird RN Position: [facility] RN Member Role: Primary Care Nurse Name: Kirk Morse DO Position: [facility] Renal MD Member Role: Lifetime Consulting Physician Address: Address: [address] [place], [place] [address] [place] [address]- Name: Uma Valdovinos Position: [facility] Outreach Member Role: Lifetime Consulting Physician Name: Janelle Arora RN Position: [facility] RN Member Role: Primary Care Nurse Name: Gabriela Lane RN Position: [facility] RN Member Role: Primary Care Nurse Name: Prasanna Belle III, RN Position: [facility] RN Member Role: Primary Care Nurse Name: Ayah Villalta MD Position: Reference Physician Member Role: PCP Address: Address: [address] [place] [address]- [place] Name: Suellen Lazcano RN Position: [facility] ED RN W/OE and Tasks Member Role: Primary Care Nurse Name: Rubia Pardo LPN Position: S RN Member Role: Primary Care Nurse Name: Florencio Ferreira MD Position: [facility] Renal MD Member Role: Lifetime Consulting Physician Address: Address: [address] [facility] [address] [facility] [place] [address]- [place] Name: Priscila López RN Position: S RN Member Role: Primary Care Nurse Name: Felipa Burr RN Position: S RN Member Role: Primary Care Nurse Name: Jennifer Alex RN Position: S RN Member Role: Primary Care Nurse Name: Saskia Fontana RN Position: S RN Member Role: Primary Care Nurse Care Team Related Persons Name: VAL HEARN Address: [address] [place] [address] Name: ABIMAEL HEARN Name: YUSUF HEARN Address: [place] [address] [place] [address]
--- NOTE | 2023-07-25 19:47 | MHC.EDTECH ---
Patient repositioned and changed over to dickson
--- NOTE | 2023-07-25 21:02 | ECG_ITS ---
Test Reason : CASTRON Blood Pressure : / mmHG Vent. Rate : 099 BPM Atrial Rate : 297 BPM P-R Int : 000 ms QRS Dur : 082 ms QT Int : 382 ms P-R-T Axes : 000 -16 -67 degrees QTc Int : 490 ms Atrial flutter with variable A-V block with premature ventricular or aberrantly conducted complexes Nonspecific ST and T wave abnormality Abnormal ECG When compared with ECG of 08-JUN-2023 09:55, Atrial flutter has replaced Sinus rhythm Incomplete right bundle branch block is no longer Present Criteria for Septal infarct are no longer Present ST now depressed in Inferior leads Nonspecific T wave abnormality now evident in Anterior leads Referred By: Graham Li Electronically Signed By:Mikal Cavanaugh
--- NOTE | 2023-07-25 21:05 | ED.GENADULT ---
HPI - General Adult General Chief complaint: Upper Respiratory Symptoms Stated complaint: FEELS SHAKY,SZ YESTERDAY Time Seen by Provider: 07/25/23 20:52 History of Present Illness HPI narrative: The patient is a 73-year-old female with multiple medical problems including paroxysmal atrial fibrillation on anticoagulation with says that she had an outpatient bronchoscopy procedure at [facility] yesterday to investigate for a lung mass. She says that the procedure was uneventful and she was told that there were no concerning findings as a result of the procedure. Today the patient is felt very weak and shaky and has been coughing a lot. Her called 911 because he thought she might have pneumonia. Patient denies chest pain or shortness of breath. She did not think that she had fevers at home but here she was found have a temperature of 100.5 degrees orally. No nausea or vomiting. Related Data Home Medications Medication Instructions Recorded Confirmed gabapentin 300 mg capsule 300 mg PO BEDTIME 11/09/22 07/26/23 aspirin 81 mg chewable tablet 81 mg PO DAILY 03/10/23 07/26/23 fluoxetine 20 mg capsule 20 mg PO DAILY 03/15/23 07/26/23 sevelamer carbonate 800 mg tablet 800 mg PO TIDWM 04/20/23 07/26/23 atorvastatin 80 mg tablet 80 mg PO DAILY 05/03/23 07/26/23 carvedilol 6.25 mg tablet 6.25 mg PO BID 05/03/23 07/26/23 oxycodone 5 mg tablet 5 mg PO Q4H PRN Pain 05/03/23 07/26/23 pantoprazole 40 mg tablet,delayed 40 mg PO DAILY 05/03/23 07/26/23 release trazodone 50 mg tablet 50 mg PO BEDTIME 05/03/23 07/26/23 acetaminophen 325 mg tablet 650 mg PO Q4H PRN Pain 06/08/23 07/26/23 ascorbic acid (vitamin C) 250 mg 250 mg PO DAILY 06/08/23 07/26/23 tablet cyclobenzaprine 5 mg tablet 5 mg PO TID 06/08/23 07/26/23 ferrous sulfate 325 mg (65 mg 325 mg PO DAILY 06/08/23 07/26/23 iron) tablet,delayed release hydralazine 10 mg tablet 10 mg PO TID 06/08/23 07/26/23 lisinopril 20 mg tablet 20 mg PO DAILY 06/08/23 07/26/23 nitroglycerin 0.4 mg sublingual 0.4 mg sublingual Q5M PRN Chest 06/08/23 07/26/23 tablet Pain ondansetron 4 mg disintegrating 4 mg PO Q6H PRN Nausea 06/08/23 07/26/23 tablet paroxetine HCl 30 mg tablet 30 mg PO DAILY 06/08/23 07/26/23 Previous Rx's Medication Instructions Recorded apixaban 2.5 mg tablet (Eliquis) 2.5 mg PO BID #60 tabs 04/05/23 furosemide 40 mg tablet 80 mg PO DAILY #60 tabs 06/13/23 Allergies Allergy/AdvReac Type Severity Reaction Status Date / Time atenolol [ATENOLOL] Allergy Severe DIFF Verified 07/25/23 18:05 BREATHING, heart races. doxycycline Allergy Severe Anaphylaxis Verified 07/25/23 18:05 duloxetine Allergy Severe Anaphylaxis Verified 07/25/23 18:05 amphetamine [Adderall] AdvReac Severe shortness Verified 07/25/23 18:05 of breath dextroamphetamine [Adderall] AdvReac Severe shortness Verified 07/25/23 18:05 of breath Review of Systems Review of Systems: Yes all other systems are reviewed and are negative PMFSH Past Medical History Medical History Non-small cell cancer of left lung CHF (congestive heart failure) CKD (chronic kidney disease) Hemodialysis patient Left femoral shaft fracture History of DVT (deep vein thrombosis) History of non-ST elevation myocardial infarction (NSTEMI) (~12/2020) Osteopenia ESRD (end stage renal disease) Interstitial lung disease Atherosclerotic cardiovascular disease Aortic stenosis CAD (coronary artery disease) PAF (paroxysmal atrial fibrillation) (~12/2020) Anemia Asthmatic bronchitis GERD (gastroesophageal reflux disease) CKD (chronic kidney disease), stage IV History of ectopic Depression Hypertension Surgical History History of lung biopsy History of coronary artery bypass graft x 3 S/P arteriovenous (AV) fistula creation History of colonoscopy History of total replacement of right shoulder joint History of rectopexy History of left knee replacement History of carpal tunnel release of both wrists Family History Family History Father No problems noted. Mother Myocardial infarction Social History Social History Household Members: None Housing: Other Housing Other:: rehab Do you presently have visiting nurse or other home services: No Alcohol intake: current Alcohol intake frequency: does not drink Patient Tobacco Use Status: Never used Tobacco Tobacco use type: Cigarette Second Hand Smoke Exposure: No Advance Directives: No Advance Directives Information Provided: No Advance Directives Date on File: 03/10/23 service: No Current occupational status: retired Current occupation: young,right handed Physical Exam ED Vital Signs: Vital Signs - 24 hr 07/25/23 18:05 07/25/23 19:10 07/25/23 21:12 Temperature 99.5 F 100.1 F 100.0 F Pulse Rate 87 86 102 H Respiratory Rate 16 22 H 24 H Blood Pressure 117/57 L 117/63 102/56 L Pulse Oximetry 94 97 92 Oxygen Delivery Method Room Air Room Air Room Air BMI result Body Mass Index 20.7 Const Other: Patient is a chronically ill-appearing woman who had fallen asleep while waiting to be seen. She woke easily to a normal mental status. She was coughing a great deal. HENMT Other: Mucous membranes look slightly dry. Eyes Other: Pupils are round equal, conjunctivae clear Neck Other: No JVD, no masses Resp Other: Right-sided crackles. No increased respiratory effort. Cardio Other: The patient had an irregular rate and rhythm with no significant murmur GI Other: Abdomen is soft nontender Skin Other: The skin is pale and dry Neuro Other: Awake alert appropriate. Cranial nerves intact. Moving all 4 extremities symmetrically. No focal deficit. Extrem Other: No peripheral edema Medications Administered Generic Name Dose Route Start Last Admin Trade Name Freq PRN Reason Stop Dose Admin Sodium Chloride 3 ml 07/26/23 00:00 07/26/23 01:30 0.9 % Sodium Chloride Flush 3 Ml Syringe IVFLUSH Not Given QSHIFT DIMITRY Discontinued Medications Generic Name Dose Route Start Last Admin Trade Name Freq PRN Reason Stop Dose Admin Albuterol Sulfate 2.5 mg 07/26/23 01:01 07/26/23 01:29 Albuterol Sulfate (0.083%) 2.5 Mg/3 Ml Vial.Neb INHALE 07/26/23 01:02 2.5 mg ONCE ONE Administration Guaifenesin/Codeine Phosphate 10 ml 07/26/23 01:01 07/26/23 02:16 Guaifen/Codeine Sf 200/20/10ml 10 Ml Liquid PO 07/26/23 01:02 10 ml ONCE ONE Administration Ceftriaxone Sodium 1 gm/ 50 mls @ 100 mls/hr 07/25/23 22:42 07/26/23 00:20 Sodium Chloride IV 07/25/23 23:11 Infused ONCE ONE Infusion Azithromycin 500 mg/ Sodium 250 mls @ 125 mls/hr 07/25/23 22:42 07/26/23 03:10 Chloride IV 07/26/23 00:41 Infused ONCE ONE Infusion Metronidazole 500 mg in 100 mls @ 100 mls/hr 07/25/23 22:42 07/26/23 00:50 Flagyl IV 07/25/23 23:41 Infused ONCE ONE Infusion Medical Decision Making Medical Decision Making [facility] Narrative: The patient is a 73-year-old woman who has chronic renal failure on dialysis. Yesterday she had an outpatient bronchoscopy for lung mass. This was apparently an unremarkable procedure. Today the patient developed a cough and was found to have a fever here. My suspicion is that she may have an aspiration pneumonia. Started on ceftriaxone and metronidazole. Patient has a baseline abnormal creatinine green 3 and 5 consistent with her chronic renal failure on dialysis. Today is 4.13 which is consistent with her chronic renal failure. Her lactate is normal. Although I think she should be hospitalized she does not seem acutely septic or unstable. Lab Data 07/25/23 18:55 07/25/23 18:55 Labs: Lab Results 07/25/23 07/25/23 07/25/23 Range/Units 18:55 22:43 22:44 WBC 10.7 (4.8-10.8) X10*3/uL RBC 2.87 L (4.20-5.50) X10*6/uL Hgb 8.7 L (12.0-16.0) g/dl Hct 27.5 L (37.0-47.0) % MCV 95.8 (80.0-98.0) fL MCH 30.3 (27.0-33.0) pg MCHC 31.6 (31.0-35.0) g/dl RDW 14.6 (11.0-16.0) % Plt Count 133 L D (160-400) X10*3/uL MPV 9.7 (9.4-12.3) fL Immature Gran % (Auto) 0.6 H (0.0-0.4) % Neut % (Auto) 77.4 H (45-73) % Lymph % (Auto) 11.6 L (20-40) % [place]ance % (Auto) 9.7 (2-11) % Eos % (Auto) 0.4 (0-4) % Baso % (Auto) 0.3 (0-2) % Lymph # (Auto) 1.3 (1.2-4.9) X10*3/uL [place] # (Auto) 1.0 (0.1-1.2) X10*3/uL Eos # (Auto) 0.0 (0.0-0.4) X10*3/uL Baso # (Auto) 0.0 (0.0-0.2) X10*3/uL Abs Immat Gran (auto) 0.06 H (0.00-0.03) X10*3/uL Absolute Neuts (auto) 8.3 (2.0-8.3) x10*3/uL Absolute Nucleated RBC 0.000 (0.0-0.012) X10*3/uL Nucleated RBC % (auto) 0.0 (0.0-0.2) /100WBC VBG pH (7.32-7.43) VBG pCO2 mmHg VBG pO2 mmHg VBG HCO3 (22-26) mmol/L VBG O2 Saturation % VBG Base Excess mmol/L Sodium 131 L (135-145) mmol/L Potassium 4.0 (3.3-5.1) mmol/L Chloride 99 (96-108) mmol/L Carbon Dioxide 20 L (22-29) mmol/L Anion Gap 16 (12-20) BUN 30 H (9-16) mg/dL Creatinine 4.13 H* (0.5-1.4) mg/dL Estim Creat Clear Calc 8.8 Estimated GFR 11 Random Glucose 88 (60-115) mg/dL Lactic Acid 1.1 (0.5-2.0) mmol/L Calcium 7.4 L D (8.4-10.2) mg/dL Total Bilirubin 0.3 (0.0-1.0) mg/dL AST 14 (5-31) U/L ALT 5 (0-31) U/L Alkaline Phosphatase 109 (39-117) U/L C-Reactive Protein 14.68 H (< or = 0.50) mg/dL B-Natriuretic Peptide 1268 H (<100) pg/mL Total Protein 6.9 (6.5-8.0) g/dL Albumin 2.7 L (3.5-5.0) g/dL Procalcitonin 3.54 ng/mL Influenza Type A (PCR) NEGATIVE (Negative) Influenza Type B (PCR) NEGATIVE (Negative) RSV RNA Qual (PCR) NEGATIVE (Negative) SARS-CoV-2 RNA (RT-PCR) NEGATIVE (Negative) 07/25/23 Range/Units 22:45 WBC (4.8-10.8) X10*3/uL RBC (4.20-5.50) X10*6/uL Hgb (12.0-16.0) g/dl Hct (37.0-47.0) % MCV (80.0-98.0) fL MCH (27.0-33.0) pg MCHC (31.0-35.0) g/dl RDW (11.0-16.0) % Plt Count (160-400) X10*3/uL MPV (9.4-12.3) fL Immature Gran % (Auto) (0.0-0.4) % Neut % (Auto) (45-73) % Lymph % (Auto) (20-40) % [place] % (Auto) (2-11) % Eos % (Auto) (0-4) % Baso % (Auto) (0-2) % Lymph # (Auto) (1.2-4.9) X10*3/uL [place] # (Auto) (0.1-1.2) X10*3/uL Eos # (Auto) (0.0-0.4) X10*3/uL Baso # (Auto) (0.0-0.2) X10*3/uL Abs Immat Gran (auto) (0.00-0.03) X10*3/uL Absolute Neuts (auto) (2.0-8.3) x10*3/uL Absolute Nucleated RBC (0.0-0.012) X10*3/uL Nucleated RBC % (auto) (0.0-0.2) /100WBC VBG pH 7.51 H (7.32-7.43) VBG pCO2 24 mmHg VBG pO2 121 mmHg VBG HCO3 19 L (22-26) mmol/L VBG O2 Saturation 99.0 % VBG Base Excess -2.1 mmol/L Sodium (135-145) mmol/L Potassium (3.3-5.1) mmol/L Chloride (96-108) mmol/L Carbon Dioxide (22-29) mmol/L Anion Gap (12-20) BUN (9-16) mg/dL Creatinine (0.5-1.4) mg/dL Estim Creat Clear Calc Estimated GFR Random Glucose (60-115) mg/dL Lactic Acid (0.5-2.0) mmol/L Calcium (8.4-10.2) mg/dL Total Bilirubin (0.0-1.0) mg/dL AST (5-31) U/L ALT (0-31) U/L Alkaline Phosphatase (39-117) U/L C-Reactive Protein (< or = 0.50) mg/dL B-Natriuretic Peptide (<100) pg/mL Total Protein (6.5-8.0) g/dL Albumin (3.5-5.0) g/dL Procalcitonin ng/mL Influenza Type A (PCR) (Negative) Influenza Type B (PCR) (Negative) RSV RNA Qual (PCR) (Negative) SARS-CoV-2 RNA (RT-PCR) (Negative) Discharge Plan Discharge Clinical Impression: Pneumonia Patient Disposition: Admitted As Inpatient
[2023-07-25 21:12] VITALS: BP 102/56; PULSE 102; RESP 24; TEMP 37.8; O2SAT 92
[2023-07-25 21:49] LABS: C Reactive Protein 14.68 mg/dL (< or = 0.50)
--- NOTE | 2023-07-25 22:06 | MHC.EDTECH ---
Patient cleaned and new pull up put on
[2023-07-25 22:51] LABS: VBG Base Excess -2.1 mmol/L; VBG HCO3 19 mmol/L (22-26); VBG pCO2 24 mmHg; VBG pH 7.51 (7.32-7.43); VBG pO2 121 mmHg
[2023-07-25 22:52] LABS: Venous Blood Gas Refer to POC result
[2023-07-25 23:11] LABS: Lactic Acid 1.1 mmol/L (0.5-2.0)
[2023-07-25 23:20] LABS: B Type Natriuretic Peptide 1268 pg/mL (<100)
[2023-07-25] MEDS: cefTRIAXone sodium 1 GM in 0.9 % Sodium Chloride 50 ML IV (23:50)
[2023-07-25] MEDS: metroNIDAZOLE/NS 500 MG/100 ML PIGGYBACK 100 MG IV (23:50)
[2023-07-25 23:52] VITALS: BP 112/59; PULSE 91; RESP 16; O2SAT 93
--- NOTE | 2023-07-25 23:56 | PM.IMHP ---
History of Present Illness Date of Service: 07/25/23 Attending physician on admission: Enzo Abdalla Chief Complaint: Cough x2 days 73 year old white female with history of ESRD on HD MWF, PAF on Eliquis, CAD s/o NSTEMI, HFpEF, , left BERTHA, h/o DVT, asthma, interstitial nephritis and recently diagnosed LLL lung mass s/p bronchoscopy at [facility] yesterday who presents to the emergency room from home concerned that she may have pneumonia. She reports that she was informed that the bronchoscopy was uneventful and that there were no concerning findings. However, today morning, she developed a wet cough and felt weak and shakey. She also reports subjective fevers with no chills. Initial work up done in the emergency room was notable for elevated CRP, BNP of 1268 pg/ml, mild hyponatremia at 131 and stable anemia with a hemoglobin of 8.7 and thrombocytopenia with a platelet count of 133. Her procalcitonin was elevated at 3.54. while her vital signs were notable for a fever of 100.1 F, tachycardia at 102 bpm and tachypnea at 24 breaths per minute. However, during her ER stay, her heart rate has been arounf 120 to 130 bpm. A chest x-ray done showed worsening pulmonary aeration in the left lower lobe with increased hazy airspace opacities and new trace left-sided pleural fluid concerning for either subsegmental atelectasis, pulmonary edema or infiltrates. A diagnosis of possible aspiration pneumonia was made and she was started on IV Ceftriaxone and Azithromycin and admission requested. Review of Systems Review of Systems: Yes all other systems are reviewed and are negative [facility] Medical History Non-small cell cancer of left lung CHF (congestive heart failure) CKD (chronic kidney disease) Hemodialysis patient Left femoral shaft fracture History of DVT (deep vein thrombosis) History of non-ST elevation myocardial infarction (NSTEMI) (~12/2020) Osteopenia ESRD (end stage renal disease) Interstitial lung disease Atherosclerotic cardiovascular disease Aortic stenosis CAD (coronary artery disease) PAF (paroxysmal atrial fibrillation) (~12/2020) Anemia Asthmatic bronchitis GERD (gastroesophageal reflux disease) CKD (chronic kidney disease), stage IV History of ectopic Depression Hypertension Family History Father No problems noted. Mother Myocardial infarction Surgical History History of lung biopsy History of coronary artery bypass graft x 3 S/P arteriovenous (AV) fistula creation History of colonoscopy History of total replacement of right shoulder joint History of rectopexy History of left knee replacement History of carpal tunnel release of both wrists Social History Household Members: None Housing: Other Housing Other:: rehab Do you presently have visiting nurse or other home services: No Alcohol intake: current Alcohol intake frequency: does not drink Patient Tobacco Use Status: Never used Tobacco Tobacco use type: Cigarette Second Hand Smoke Exposure: No Advance Directives: No Advance Directives Information Provided: No Advance Directives Date on File: 03/10/23 service: No Current occupational status: retired Current occupation: young,right handed Meds Allergies Allergy/AdvReac Type Severity Reaction Status Date / Time atenolol [ATENOLOL] Allergy Severe DIFF Verified 07/25/23 18:05 BREATHING, heart races. doxycycline Allergy Severe Anaphylaxis Verified 07/25/23 18:05 duloxetine Allergy Severe Anaphylaxis Verified 07/25/23 18:05 amphetamine [Adderall] AdvReac Severe shortness Verified 07/25/23 18:05 of breath dextroamphetamine [Adderall] AdvReac Severe shortness Verified 07/25/23 18:05 of breath Home Medications Medication Instructions Recorded Confirmed Last Taken Type gabapentin 300 mg capsule 300 mg PO BEDTIME 11/09/22 07/26/23 05/03/23 History aspirin 81 mg chewable tablet 81 mg PO DAILY 03/10/23 07/26/23 05/03/23 History fluoxetine 20 mg capsule 20 mg PO DAILY 03/15/23 07/26/23 05/03/23 History sevelamer carbonate 800 mg tablet 800 mg PO TIDWM 04/20/23 07/26/23 05/03/23 History atorvastatin 80 mg tablet 80 mg PO DAILY 05/03/23 07/26/23 05/03/23 History carvedilol 6.25 mg tablet 6.25 mg PO BID 05/03/23 07/26/23 05/03/23 History oxycodone 5 mg tablet 5 mg PO Q4H PRN Pain 05/03/23 07/26/23 05/03/23 History pantoprazole 40 mg tablet,delayed 40 mg PO DAILY 05/03/23 07/26/23 05/03/23 History release trazodone 50 mg tablet 50 mg PO BEDTIME 05/03/23 07/26/23 05/02/23 History acetaminophen 325 mg tablet 650 mg PO Q4H PRN Pain 06/08/23 07/26/23 Unknown History ascorbic acid (vitamin C) 250 mg 250 mg PO DAILY 06/08/23 07/26/23 Unknown History tablet cyclobenzaprine 5 mg tablet 5 mg PO TID 06/08/23 07/26/23 Unknown History ferrous sulfate 325 mg (65 mg 325 mg PO DAILY 06/08/23 07/26/23 Unknown History iron) tablet,delayed release hydralazine 10 mg tablet 10 mg PO TID 06/08/23 07/26/23 Unknown History lisinopril 20 mg tablet 20 mg PO DAILY 06/08/23 07/26/23 Unknown History nitroglycerin 0.4 mg sublingual 0.4 mg sublingual Q5M PRN Chest 06/08/23 07/26/23 Unknown History tablet Pain ondansetron 4 mg disintegrating 4 mg PO Q6H PRN Nausea 06/08/23 07/26/23 Unknown History tablet paroxetine HCl 30 mg tablet 30 mg PO DAILY 06/08/23 07/26/23 Unknown History Physical Exam Vital Signs and Narrative: Vital Signs: Last Vital Signs Temp 100.0 F 07/25/23 21:12 Pulse 91 07/25/23 23:52 Resp 16 07/25/23 23:52 BP 112/59 L 07/25/23 23:52 Pulse Ox 93 07/25/23 23:52 O2 Del Method Room Air 07/25/23 23:52 BMI result Body Mass Index 20.7 General: Well nourished. Awake, alert and oriented x 4. No apparent distress Eyes: No pallor or jaundice. PERRLA, EOMI HEENT: Moist oral mucus membranes. No oropharyngeal lesions. Neck: Supple. No cervical adenopathy. No JVD Cardiovascular: Regular rate and rhythm. Normal heart sounds. No murmurs, rubs or gallops. No JVD. No peripheral edema. Respiratory: Coarse bilateral breath sounds with both inspiratory and expiratory wheezes. Gastrointestinal: Abdomen is soft, non-tender, non-distended. Normoactive bowel sounds. No hepatosplenomegally Extremities: No edema. No calf tenderness. Good peripheral pulses Skin: Warm/Dry. No rashes. No mottling. Capillary refill is < 2 seconds Neurological: AAOx4. Intact speech & cognition. Gait & balance not evaluated at this time. CN II - XII grossly intact but not individually tested. No motor or sensory deficits Hematologic: No bleeding. No ecchymosis. No swollen or tender lymph nodes. Psychiatric: Cooperative. Appropriate mood and affect . Results Labs 07/25/23 18:55 07/25/23 18:55 Labs: Laboratory Results - last 24 hr 07/25/23 07/25/23 07/25/23 18:55 22:43 22:44 MCV 95.8 MCH 30.3 MCHC 31.6 RDW 14.6 Plt Count 133 L D MPV 9.7 Immature Gran % (Auto) 0.6 H Neut % (Auto) 77.4 H Lymph % (Auto) 11.6 L [place] % (Auto) 9.7 Eos % (Auto) 0.4 Baso % (Auto) 0.3 Lymph # (Auto) 1.3 [place] # (Auto) 1.0 Eos # (Auto) 0.0 Baso # (Auto) 0.0 Abs Immat Gran (auto) 0.06 H Absolute Neuts (auto) 8.3 Absolute Nucleated RBC 0.000 Nucleated RBC % (auto) 0.0 VBG pH VBG pCO2 VBG pO2 VBG HCO3 VBG O2 Saturation VBG Base Excess Anion Gap 16 Estim Creat Clear Calc 8.8 Estimated GFR 11 Random Glucose 88 Lactic Acid 1.1 Calcium 7.4 L D Total Bilirubin 0.3 AST 14 ALT 5 Alkaline Phosphatase 109 C-Reactive Protein 14.68 H B-Natriuretic Peptide 1268 H Total Protein 6.9 Albumin 2.7 L Influenza Type A (PCR) NEGATIVE Influenza Type B (PCR) NEGATIVE RSV RNA Qual (PCR) NEGATIVE SARS-CoV-2 RNA (RT-PCR) NEGATIVE 07/25/23 22:45 MCV MCH MCHC RDW Plt Count MPV Immature Gran % (Auto) Neut % (Auto) Lymph % (Auto) [place] % (Auto) Eos % (Auto) Baso % (Auto) Lymph # (Auto) [place] # (Auto) Eos # (Auto) Baso # (Auto) Abs Immat Gran (auto) Absolute Neuts (auto) Absolute Nucleated RBC Nucleated RBC % (auto) VBG pH 7.51 H VBG pCO2 24 VBG pO2 121 VBG HCO3 19 L VBG O2 Saturation 99.0 VBG Base Excess -2.1 Anion Gap Estim Creat Clear Calc Estimated GFR Random Glucose Lactic Acid Calcium Total Bilirubin AST ALT Alkaline Phosphatase C-Reactive Protein B-Natriuretic Peptide Total Protein Albumin Influenza Type A (PCR) Influenza Type B (PCR) RSV RNA Qual (PCR) SARS-CoV-2 RNA (RT-PCR) BNP => 1268 CRP => 14.68 Procacitonin => 3.54 ECG ECG interpretation date: 07/26/23 ECG interpretation time: 07:11 Interpretation: Atrial flutter with variable AV block with nonspecific ST & T wave abnormality in the inferolateral leads. Imaging Radiologist's Impressions: Impressions Chest X-Ray 07/25/23 21:25 IMPRESSION: Worsening pulmonary aeration in the left lower lobe with increased hazy airspace opacities and new trace amount of left-sided pleural fluid. Findings are indeterminate and could be related with subsegmental atelectasis and pulmonary edema, although early infiltrates are difficult to exclude. Continued follow-up recommended. Assessment and Plan (1) Pneumonia: Status: Acute (2) Atrial fibrillation with RVR: Status: Acute (3) ESRD (end stage renal disease) on dialysis: Status: Acute Plan 73 year old white female with history of ESRD on HD MWF, PAF on Eliquis, CAD s/o NSTEMI, HFpEF, , left BERTHA, h/o DVT, asthma, interstitial nephritis and recently diagnosed LLL lung mass s/p bronchoscopy at [facility] yesterday here with 1. Aspiration pneumonia - sudden onet of respiratory symptoms concerning for aspiration pneumonia - admit and continue with IV antibiotics (azithromycin and ceftriaxone) 2. Atrial fib/flutter with RVR - EKG shows atrial flutter - continue home medications (Eliqus and Cored) 3. ESRD - On HD MWF - consult [facility] for dialysis today 4. Volume overload - likely with an element of volume overload - will benefit from dialysis Total time managing care of this patient today: 75 minutes. Quality Stroke Does the patient have a stroke diagnosis?: No VTE Prior VTE?: Yes VTE Risk Level:: Medical - moderate - high VTE Device Contraindication: N/A - Device Ordered VTE Drug Contraindication: N/A - Med Ordered
[2023-07-26] VITALS (8 sets, daily range): BP systolic 89–125; BP diastolic 47–60; PULSE 89–113; RESP 14–24; TEMP 37–37.9; O2SAT 92–95
[2023-07-26] MEDS: Azithromycin 500 MG in 0.9 % Sodium Chloride 250 ML 125 MG IV (00:03)
[2023-07-26 00:26] LABS: Procalcitonin 3.54 ng/mL
[2023-07-26] MEDS: Albuterol Sulfate (0.083%) 2.5 MG/3 ML VIAL.NEB INHALE (01:29)
[2023-07-26] MEDS: guaiFEN/Codeine SF 200/20/10ML 10 ML LIQUID PO (02:16)
--- NOTE | 2023-07-26 03:00 | PC.NURSE ---
Assumes are of PT at 1900. PT alert and oriented. complains of cough for two days after a recent bronchoscopy. PT s think she has pneumonia. Pt placed on social contact worker, iv line placed in right upper arm and forearm. IV fluids infusing. Medications administered as per MAR> med rec completed. PT in brief, and using bedside commode as needed.
--- NOTE | 2023-07-26 07:21 | PHA.MEDREC ---
Pharmacy Consult ? Medication Reconciliation Pharmacy has completed the medication reconciliation. checked med rec in am against claim history.
[2023-07-26] MEDS: carvediloL 6.25 MG TABLET PO ×2 (08:40→20:55)
[2023-07-26] MEDS: Ferrous Sulfate 324 MG TABLET.DR PO (08:40)
[2023-07-26] MEDS: Omeprazole 20 MG CAPSULE.DR PO (08:40)
[2023-07-26] MEDS: Atorvastatin Calcium 80 MG TABLET PO (08:40)
[2023-07-26] MEDS: Aspirin 81 MG TAB.CHEW PO (08:40)
[2023-07-26] MEDS: FLUoxetine HCl 20 MG CAPSULE PO (08:41)
[2023-07-26] MEDS: Ascorbic Acid 250 MG TABLET PO (08:41)
[2023-07-26] MEDS: Apixaban 2.5 MG TABLET PO ×2 (08:41→20:55)
[2023-07-26] MEDS: Docusate Sodium 100 MG CAPSULE PO (08:41)
[2023-07-26] MEDS: Cyclobenzaprine HCl 5 MG TABLET PO ×2 (08:41→20:57)
[2023-07-26] MEDS: 0.9 % Sodium Chloride Flush 3 ML SYRINGE IVFLUSH ×3 (08:42→20:58)
--- NOTE | 2023-07-26 08:45 | PC.NURSE ---
took over for patient at 0700. met patient at 0730 and patient was eating breakfast. renvela was unavailable in [facility] to give. pt was scheduled to go to dialysis right then. communicated to nurse that they should give renvela upstairs a;matty with rest of meds that were unavailable. tech transported upstairs
--- NOTE | 2023-07-26 11:54 | MHC.CM.PN ---
IMM 07/26. Pt lives at home with her , she uses a walker, states she is active with a VNA agency but does not know which agency. This CM called PCP's office and they do no have a VNA listed for her in their files. Pt goes to [facility] HD 3x/wk. HCP on file, pt states she would like to change it to her daughter Jo Ann (CM will assist after HD. Transport will be via BLS/Ac. PCP: Dr. Ayah Villalta
--- NOTE | 2023-07-26 12:00 | MHC.CM.PN ---
IMM 07/26. Pt lives at home with her , she uses a wheelchair, states she is active with a VNA agency but does not know which agency. This CM called PCP's office and they do no have a VNA listed for her in their files. Pt goes to [facility] HD 3x/wk. HCP on file, pt states she would like to change it to her daughter Jo Ann (CM will assist after HD. Transport will be via BLS/Ac. PCP: Dr. Ayah Villalta
--- NOTE | 2023-07-26 12:13 | P.CONNP_ITS ---
History of Present Illness Reason for Consult Consult date: 07/26/23 Reason for consult: esrd Chief Complaint Chief complaint: Pneumonia History of Present Illness Narrative: 73 year old white female with history of ESRD on HD MWF, PAF on Eliquis, CAD s/o NSTEMI- s/p CABG,, HFpEF, , left BERTHA, h/o DVT, asthma, interstitial nephritis and recently diagnosed LLL lung mass/ adenocarcinoma s/p bronchoscopy at [facility] yesterday who presents to the emergency room for concern of aspiration pna and volume overload. some sob She was evaluated today on maintenance HD Review of Systems Review of Systems Yes all other systems are reviewed and are negative PMFSH Past Medical History Medical History Non-small cell cancer of left lung CHF (congestive heart failure) CKD (chronic kidney disease) Hemodialysis patient Left femoral shaft fracture History of DVT (deep vein thrombosis) History of non-ST elevation myocardial infarction (NSTEMI) (~12/2020) Osteopenia ESRD (end stage renal disease) Interstitial lung disease Atherosclerotic cardiovascular disease Aortic stenosis CAD (coronary artery disease) PAF (paroxysmal atrial fibrillation) (~12/2020) Anemia Asthmatic bronchitis GERD (gastroesophageal reflux disease) CKD (chronic kidney disease), stage IV History of ectopic Depression Hypertension Family History Family History Father No problems noted. Mother Myocardial infarction Surgical History Surgical History History of lung biopsy History of coronary artery bypass graft x 3 S/P arteriovenous (AV) fistula creation History of colonoscopy History of total replacement of right shoulder joint History of rectopexy History of left knee replacement History of carpal tunnel release of both wrists Social History Social History Household Members: None Housing: Other Housing Other:: rehab Do you presently have visiting nurse or other home services: No Alcohol intake: current Alcohol intake frequency: does not drink Patient Tobacco Use Status: Never used Tobacco Tobacco use type: Cigarette Second Hand Smoke Exposure: No Advance Directives Date on File: 03/10/23 service: No Current occupational status: retired Current occupation: young,right handed Meds Allergies Allergy/AdvReac Type Severity Reaction Status Date / Time atenolol [ATENOLOL] Allergy Severe DIFF Verified 07/25/23 18:05 BREATHING, heart races. doxycycline Allergy Severe Anaphylaxis Verified 07/25/23 18:05 duloxetine Allergy Severe Anaphylaxis Verified 07/25/23 18:05 amphetamine [Adderall] AdvReac Severe shortness Verified 07/25/23 18:05 of breath dextroamphetamine [Adderall] AdvReac Severe shortness Verified 07/25/23 18:05 of breath Active Medications: Current Medications Acetaminophen (Acetaminophen 325 Mg Tablet) 650 mg PO Q6H PRN PRN Reason: Pain, Mild (Pain Scale 1-3) Al Hydroxide/Mg Hydroxide (Magnesium Hydrox/Alum Hydrox 30 Ml Oral.Susp) 30 ml PO Q4H PRN PRN Reason: Heartburn/Nausea Apixaban (Apixaban 2.5 Mg Tablet) 2.5 mg PO BID [facility] Last Admin: 07/26/23 08:41 Dose: 2.5 mg Ascorbic Acid (Ascorbic Acid 250 Mg Tablet) 250 mg PO DAILY [facility] Last Admin: 07/26/23 08:41 Dose: 250 mg Aspirin (Aspirin 81 Mg Tab.Chew) 81 mg PO DAILY [facility] Last Admin: 07/26/23 08:40 Dose: 81 mg Atorvastatin Calcium (Atorvastatin Calcium 80 Mg Tablet) 80 mg PO DAILY [facility] Last Admin: 07/26/23 08:40 Dose: 80 mg Benzonatate (Benzonatate 100 Mg Capsule) 100 mg PO TID PRN PRN Reason: Cough Carvedilol (Carvedilol 6.25 Mg Tablet) 6.25 mg PO BID [facility]; Protocol Last Admin: 07/26/23 08:40 Dose: 6.25 mg Cyclobenzaprine HCl (Cyclobenzaprine Hcl 5 Mg Tablet) 5 mg PO TID [facility] Last Admin: 07/26/23 08:41 Dose: 5 mg Docusate Sodium (Docusate Sodium 100 Mg Capsule) 100 mg PO BID [facility] Last Admin: 07/26/23 08:41 Dose: 100 mg Ferrous Sulfate (Ferrous Sulfate 324 Mg Tablet.Dr) 324 mg PO DAILY [facility] Last Admin: 07/26/23 08:40 Dose: 324 mg Fluoxetine HCl (Fluoxetine Hcl 20 Mg Capsule) 20 mg PO DAILY [facility] Last Admin: 07/26/23 08:41 Dose: 20 mg Gabapentin (Gabapentin 300 Mg Capsule) 300 mg PO BEDTIME [facility] Hydralazine HCl (Hydralazine Hcl 10 Mg Tablet) 10 mg PO TID [facility]; Protocol Azithromycin 500 mg/ Sodium (Chloride) 250 mls @ 125 mls/hr IV BEDTIME [facility] Stop: 07/30/23 20:59 Ceftriaxone Sodium 1 gm/ (Sodium Chloride) 50 mls @ 100 mls/hr IV BEDTIME [facility] Stop: 07/29/23 21:29 Melatonin (Melatonin 3 Mg Tablet) 6 mg PO BEDTIME PRN PRN Reason: Insomnia Nitroglycerin (Nitroglycerin 0.4 Mg Tab.Subl) 0.4 mg SUBLINGUAL Q5M PRN PRN Reason: Chest Pain Omeprazole (Omeprazole 20 Mg Capsule.Dr) 20 mg PO DAILY@0630 [facility] Last Admin: 07/26/23 08:40 Dose: 20 mg Ondansetron HCl (Ondansetron Hcl 4 Mg/2 Ml Vial) 4 mg IVPUSH Q8H PRN PRN Reason: Nausea and Vomiting Oxycodone HCl (Oxycodone Hcl Immed Release 5 Mg Tablet) 5 mg PO Q4H PRN PRN Reason: Pain, Severe (Pain Scale 7-10) Paroxetine HCl (Paroxetine Hcl 30 Mg Tablet) 30 mg PO DAILY [facility] Sevelamer Carbonate (Sevelamer Carbonate Tablet 800 Mg Tablet) 800 mg PO TIDWM [facility] Sodium Chloride (0.9 % Sodium Chloride Flush 3 Ml Syringe) 3 ml IVFLUSH QSHIFT [facility] Last Admin: 07/26/23 08:42 Dose: 3 ml Trazodone HCl (Trazodone Hcl 50 Mg Tablet) 50 mg PO BEDTIME [facility] Home Medications Medication Instructions Recorded Confirmed Last Taken Type gabapentin 300 mg capsule 300 mg PO BEDTIME 11/09/22 07/26/23 05/03/23 History aspirin 81 mg chewable tablet 81 mg PO DAILY 03/10/23 07/26/23 05/03/23 History fluoxetine 20 mg capsule 20 mg PO DAILY 03/15/23 07/26/23 05/03/23 History sevelamer carbonate 800 mg tablet 800 mg PO TIDWM 04/20/23 07/26/23 05/03/23 History atorvastatin 80 mg tablet 80 mg PO DAILY 05/03/23 07/26/23 05/03/23 History carvedilol 6.25 mg tablet 6.25 mg PO BID 05/03/23 07/26/23 05/03/23 History oxycodone 5 mg tablet 5 mg PO Q4H PRN Pain 05/03/23 07/26/23 05/03/23 History pantoprazole 40 mg tablet,delayed 40 mg PO DAILY 05/03/23 07/26/23 05/03/23 History release trazodone 50 mg tablet 50 mg PO BEDTIME 05/03/23 07/26/23 05/02/23 History acetaminophen 325 mg tablet 650 mg PO Q4H PRN Pain 06/08/23 07/26/23 Unknown History ascorbic acid (vitamin C) 250 mg 250 mg PO DAILY 06/08/23 07/26/23 Unknown History tablet cyclobenzaprine 5 mg tablet 5 mg PO TID 06/08/23 07/26/23 Unknown History ferrous sulfate 325 mg (65 mg 325 mg PO DAILY 06/08/23 07/26/23 Unknown History iron) tablet,delayed release hydralazine 10 mg tablet 10 mg PO TID 06/08/23 07/26/23 Unknown History lisinopril 20 mg tablet 20 mg PO DAILY 06/08/23 07/26/23 Unknown History nitroglycerin 0.4 mg sublingual 0.4 mg sublingual Q5M PRN Chest 06/08/23 07/26/23 Unknown History tablet Pain ondansetron 4 mg disintegrating 4 mg PO Q6H PRN Nausea 06/08/23 07/26/23 Unknown History tablet paroxetine HCl 30 mg tablet 30 mg PO DAILY 06/08/23 07/26/23 Unknown History Physical Exam Vital Signs: Last Vital Signs Temp 100.0 F 07/26/23 06:58 Pulse 113 H 07/26/23 08:41 Resp 24 H 07/26/23 08:41 BP 98/47 L 07/26/23 08:41 Pulse Ox 92 07/26/23 08:41 O2 Del Method Room Air 07/26/23 08:41 BMI result Body Mass Index 20.7 alert oriented x3. cvs: s1s2 Rs; cta abd: soft access; Left IJ PC Results Lab Results 07/26/23 14:14 07/25/23 18:55 Lab results: Chemistry 07/25/23 18:55 Sodium 131 L Potassium 4.0 Carbon Dioxide 20 L BUN 30 H Creatinine 4.13 H* Calcium 7.4 L D Hematology 07/25/23 18:55 WBC 10.7 Hgb 8.7 L Plt Count 133 L D Assessment and Plan (1) ESRD (end stage renal disease) on dialysis: Status: Acute (2) Pneumonia: Status: Acute Plan Elderly woman with ESRD on maintenance hemodialysis. From renal standpoint she is doing very well without any signs or symptoms of uremia. Fluid status is acceptable. Plan is to arrange for hemodialysis as per schedule on Monday. Resume Epogen for anemia. EPO weekly, dosed today. renal panel on dialysis days. Procedures Date of Service Date of Service: 07/26/23
--- NOTE | 2023-07-26 12:14 | P.CONNP_ITS ---
History of Present Illness Reason for Consult Consult date: 07/26/23 Chief Complaint Chief complaint: Pneumonia PMFSH Past Medical History Medical History Non-small cell cancer of left lung CHF (congestive heart failure) CKD (chronic kidney disease) Hemodialysis patient Left femoral shaft fracture History of DVT (deep vein thrombosis) History of non-ST elevation myocardial infarction (NSTEMI) (~12/2020) Osteopenia ESRD (end stage renal disease) Interstitial lung disease Atherosclerotic cardiovascular disease Aortic stenosis CAD (coronary artery disease) PAF (paroxysmal atrial fibrillation) (~12/2020) Anemia Asthmatic bronchitis GERD (gastroesophageal reflux disease) CKD (chronic kidney disease), stage IV History of ectopic Depression Hypertension Family History Family History Father No problems noted. Mother Myocardial infarction Surgical History Surgical History History of lung biopsy History of coronary artery bypass graft x 3 S/P arteriovenous (AV) fistula creation History of colonoscopy History of total replacement of right shoulder joint History of rectopexy History of left knee replacement History of carpal tunnel release of both wrists Social History Social History Household Members: None Housing: Other Housing Other:: rehab Do you presently have visiting nurse or other home services: No Alcohol intake: current Alcohol intake frequency: does not drink Patient Tobacco Use Status: Never used Tobacco Tobacco use type: Cigarette Second Hand Smoke Exposure: No Advance Directives Date on File: 03/10/23 service: No Current occupational status: retired Current occupation: young,right handed Meds Allergies Allergy/AdvReac Type Severity Reaction Status Date / Time atenolol [ATENOLOL] Allergy Severe DIFF Verified 07/25/23 18:05 BREATHING, heart races. doxycycline Allergy Severe Anaphylaxis Verified 07/25/23 18:05 duloxetine Allergy Severe Anaphylaxis Verified 07/25/23 18:05 amphetamine [Adderall] AdvReac Severe shortness Verified 07/25/23 18:05 of breath dextroamphetamine [Adderall] AdvReac Severe shortness Verified 07/25/23 18:05 of breath Active Medications: Current Medications Acetaminophen (Acetaminophen 325 Mg Tablet) 650 mg PO Q6H PRN PRN Reason: Pain, Mild (Pain Scale 1-3) Al Hydroxide/Mg Hydroxide (Magnesium Hydrox/Alum Hydrox 30 Ml Oral.Susp) 30 ml PO Q4H PRN PRN Reason: Heartburn/Nausea Apixaban (Apixaban 2.5 Mg Tablet) 2.5 mg PO BID [facility] Last Admin: 07/26/23 08:41 Dose: 2.5 mg Ascorbic Acid (Ascorbic Acid 250 Mg Tablet) 250 mg PO DAILY [facility] Last Admin: 07/26/23 08:41 Dose: 250 mg Aspirin (Aspirin 81 Mg Tab.Chew) 81 mg PO DAILY [facility] Last Admin: 07/26/23 08:40 Dose: 81 mg Atorvastatin Calcium (Atorvastatin Calcium 80 Mg Tablet) 80 mg PO DAILY [facility] Last Admin: 07/26/23 08:40 Dose: 80 mg Benzonatate (Benzonatate 100 Mg Capsule) 100 mg PO TID PRN PRN Reason: Cough Carvedilol (Carvedilol 6.25 Mg Tablet) 6.25 mg PO BID [facility]; Protocol Last Admin: 07/26/23 08:40 Dose: 6.25 mg Cyclobenzaprine HCl (Cyclobenzaprine Hcl 5 Mg Tablet) 5 mg PO TID [facility] Last Admin: 07/26/23 08:41 Dose: 5 mg Docusate Sodium (Docusate Sodium 100 Mg Capsule) 100 mg PO BID [facility] Last Admin: 07/26/23 08:41 Dose: 100 mg Ferrous Sulfate (Ferrous Sulfate 324 Mg Tablet.Dr) 324 mg PO DAILY [facility] Last Admin: 07/26/23 08:40 Dose: 324 mg Fluoxetine HCl (Fluoxetine Hcl 20 Mg Capsule) 20 mg PO DAILY [facility] Last Admin: 07/26/23 08:41 Dose: 20 mg Gabapentin (Gabapentin 300 Mg Capsule) 300 mg PO BEDTIME [facility] Hydralazine HCl (Hydralazine Hcl 10 Mg Tablet) 10 mg PO TID [facility]; Protocol Azithromycin 500 mg/ Sodium (Chloride) 250 mls @ 125 mls/hr IV BEDTIME [facility] Stop: 07/30/23 20:59 Ceftriaxone Sodium 1 gm/ (Sodium Chloride) 50 mls @ 100 mls/hr IV BEDTIME [facility] Stop: 07/29/23 21:29 Melatonin (Melatonin 3 Mg Tablet) 6 mg PO BEDTIME PRN PRN Reason: Insomnia Nitroglycerin (Nitroglycerin 0.4 Mg Tab.Subl) 0.4 mg SUBLINGUAL Q5M PRN PRN Reason: Chest Pain Omeprazole (Omeprazole 20 Mg Capsule.Dr) 20 mg PO DAILY@0630 [facility] Last Admin: 07/26/23 08:40 Dose: 20 mg Ondansetron HCl (Ondansetron Hcl 4 Mg/2 Ml Vial) 4 mg IVPUSH Q8H PRN PRN Reason: Nausea and Vomiting Oxycodone HCl (Oxycodone Hcl Immed Release 5 Mg Tablet) 5 mg PO Q4H PRN PRN Reason: Pain, Severe (Pain Scale 7-10) Paroxetine HCl (Paroxetine Hcl 30 Mg Tablet) 30 mg PO DAILY [facility] Sevelamer Carbonate (Sevelamer Carbonate Tablet 800 Mg Tablet) 800 mg PO TIDWM [facility] Sodium Chloride (0.9 % Sodium Chloride Flush 3 Ml Syringe) 3 ml IVFLUSH QSHIFT [facility] Last Admin: 07/26/23 08:42 Dose: 3 ml Trazodone HCl (Trazodone Hcl 50 Mg Tablet) 50 mg PO BEDTIME [facility] Home Medications Medication Instructions Recorded Confirmed Last Taken Type gabapentin 300 mg capsule 300 mg PO BEDTIME 11/09/22 07/26/23 05/03/23 History aspirin 81 mg chewable tablet 81 mg PO DAILY 03/10/23 07/26/23 05/03/23 History fluoxetine 20 mg capsule 20 mg PO DAILY 03/15/23 07/26/23 05/03/23 History sevelamer carbonate 800 mg tablet 800 mg PO TIDWM 04/20/23 07/26/23 05/03/23 History atorvastatin 80 mg tablet 80 mg PO DAILY 05/03/23 07/26/23 05/03/23 History carvedilol 6.25 mg tablet 6.25 mg PO BID 05/03/23 07/26/23 05/03/23 History oxycodone 5 mg tablet 5 mg PO Q4H PRN Pain 05/03/23 07/26/23 05/03/23 History pantoprazole 40 mg tablet,delayed 40 mg PO DAILY 05/03/23 07/26/23 05/03/23 History release trazodone 50 mg tablet 50 mg PO BEDTIME 05/03/23 07/26/23 05/02/23 History acetaminophen 325 mg tablet 650 mg PO Q4H PRN Pain 06/08/23 07/26/23 Unknown History ascorbic acid (vitamin C) 250 mg 250 mg PO DAILY 06/08/23 07/26/23 Unknown History tablet cyclobenzaprine 5 mg tablet 5 mg PO TID 06/08/23 07/26/23 Unknown History ferrous sulfate 325 mg (65 mg 325 mg PO DAILY 06/08/23 07/26/23 Unknown History iron) tablet,delayed release hydralazine 10 mg tablet 10 mg PO TID 06/08/23 07/26/23 Unknown History lisinopril 20 mg tablet 20 mg PO DAILY 06/08/23 07/26/23 Unknown History nitroglycerin 0.4 mg sublingual 0.4 mg sublingual Q5M PRN Chest 06/08/23 07/26/23 Unknown History tablet Pain ondansetron 4 mg disintegrating 4 mg PO Q6H PRN Nausea 06/08/23 07/26/23 Unknown History tablet paroxetine HCl 30 mg tablet 30 mg PO DAILY 06/08/23 07/26/23 Unknown History Physical Exam Vital Signs: Last Vital Signs Temp 100.0 F 07/26/23 06:58 Pulse 113 H 07/26/23 08:41 Resp 24 H 07/26/23 08:41 BP 98/47 L 07/26/23 08:41 Pulse Ox 92 07/26/23 08:41 O2 Del Method Room Air 07/26/23 08:41 BMI result Body Mass Index 20.7 Results Lab Results 07/25/23 18:55 07/25/23 18:55 Lab results: Chemistry 07/25/23 18:55 Sodium 131 L Potassium 4.0 Carbon Dioxide 20 L BUN 30 H Creatinine 4.13 H* Calcium 7.4 L D Hematology 07/25/23 18:55 WBC 10.7 Hgb 8.7 L Plt Count 133 L D Assessment and Plan Plan Elderly woman with ESRD on maintenance hemodialysis. Admitted with knee pain. From renal standpoint she is doing very well without any signs or symptoms of uremia. Fluid status is acceptable. Plan is to arrange for hemodialysis as per schedule on Monday. Resume Epogen for anemia. EPO weekly, dosed today. renal panel on dialysis days. Procedures Date of Service Date of Service: 07/26/23
[2023-07-26] MEDS: Sevelamer Carbonate Tablet 800 MG TABLET PO ×2 (13:18→17:16)
[2023-07-26] MEDS: PARoxetine HCL 30 MG TABLET PO (13:18)
[2023-07-26] MEDS: Benzonatate 100 MG CAPSULE PO (13:19)
[2023-07-26] MEDS: Acetaminophen 325 MG TABLET 650 MG PO ×2 (13:19→21:00)
[2023-07-26 14:19] LABS: MANUAL DIFF FLAG NO
[2023-07-26 14:23] LABS: Basophils Percent Auto 0.3 % (0-2); Eosinophils Absolute Auto 0.1 X10*3/uL (0.0-0.4); Eosinophils Percent Auto 0.4 % (0-4); Hematocrit 27.9 % (37.0-47.0); Hemoglobin 8.9 g/dl (12.0-16.0); Imm Gran Abs Auto 0.09 X10*3/uL (0.00-0.03); Imm Gran Pct Auto 0.7 % (0.0-0.4); Lymphocytes Absolute Auto 1.1 X10*3/uL (1.2-4.9); Lymphocytes Percent Auto 8.8 % (20-40); Mean Corpuscular HGB Conc 31.9 g/dl (31.0-35.0); Mean Corpuscular Hemoglobin 29.8 pg (27.0-33.0); Mean Corpuscular Volume 93.3 fL (80.0-98.0); Monocytes Absolute Auto 1.1 X10*3/uL (0.1-1.2); Monocytes Percent Auto 8.6 % (2-11); Neutrophils Absolute Auto 10.5 x10*3/uL (2.0-8.3); Neutrophils Percent Auto 81.2 % (45-73); Platelet Count 130 X10*3/uL (160-400); Red Blood Count 2.99 X10*6/uL (4.20-5.50); Red Cell Distribution Width 14.7 % (11.0-16.0)
--- NOTE | 2023-07-26 14:45 | HO.PM.IMPN ---
Subjective Subjective Date of Service: 07/26/23 Interval History: feeling tired just finished hemodialysis, feels less short of breath complaining of persistent congested cough unable to bring up phlegm denies fever, no chills, eating lunch denies nausea vomiting, no abdominal pain or diarrhea. Review of Systems All other system reviewed and negative Physical Exam Vital Signs: Vital Signs: Last Vital Signs Temp 99.3 F 07/26/23 12:54 Pulse 112 H 07/26/23 12:54 Resp 20 07/26/23 12:54 BP 97/49 L 07/26/23 12:54 Pulse Ox 95 07/26/23 12:54 O2 Del Method Room Air 07/26/23 12:54 BMI result Body Mass Index 20.7 Const: Other: General awake alert x3,frail, in no acute distress. Neck supple no JVD. CVS regular rate rhythm, Respiratory lungs coarse breath sounds with scattered expiratory wheeze. Gastrointestinal abdomen soft, non tender, bowel sounds audible, no guarding , no rigidity. Extremities no edema. Neuro nonfocal Skin no rash psych appropriate affect Objective Data Active Medications Acetaminophen (Acetaminophen 325 Mg Tablet) 650 mg PO Q6H PRN PRN Reason: Pain, Mild (Pain Scale 1-3) Last Admin: 07/26/23 13:19 Dose: 650 mg Documented By: PODXOCHITL Al Hydroxide/Mg Hydroxide (Magnesium Hydrox/Alum Hydrox 30 Ml Oral.Susp) 30 ml PO Q4H PRN PRN Reason: Heartburn/Nausea Apixaban (Apixaban 2.5 Mg Tablet) 2.5 mg PO BID [facility] Last Admin: 07/26/23 08:41 Dose: 2.5 mg Documented By: DIA Ascorbic Acid (Ascorbic Acid 250 Mg Tablet) 250 mg PO DAILY [facility] Last Admin: 07/26/23 08:41 Dose: 250 mg Documented By: DIA Aspirin (Aspirin 81 Mg Tab.Chew) 81 mg PO DAILY [facility] Last Admin: 07/26/23 08:40 Dose: 81 mg Documented By: DIA Atorvastatin Calcium (Atorvastatin Calcium 80 Mg Tablet) 80 mg PO DAILY [facility] Last Admin: 07/26/23 08:40 Dose: 80 mg Documented By: DIA Benzonatate (Benzonatate 100 Mg Capsule) 100 mg PO TID PRN PRN Reason: Cough Last Admin: 07/26/23 13:19 Dose: 100 mg Documented By: ELVER Carvedilol (Carvedilol 6.25 Mg Tablet) 6.25 mg PO BID [facility]; Protocol Last Admin: 07/26/23 08:40 Dose: 6.25 mg Documented By: DIA Cyclobenzaprine HCl (Cyclobenzaprine Hcl 5 Mg Tablet) 5 mg PO TID [facility] Last Admin: 07/26/23 08:41 Dose: 5 mg Documented By: DIA Docusate Sodium (Docusate Sodium 100 Mg Capsule) 100 mg PO BID [facility] Last Admin: 07/26/23 08:41 Dose: 100 mg Documented By: DIA Ferrous Sulfate (Ferrous Sulfate 324 Mg Tablet.) 324 mg PO DAILY [facility] Last Admin: 07/26/23 08:40 Dose: 324 mg Documented By: DIA Fluoxetine HCl (Fluoxetine Hcl 20 Mg Capsule) 20 mg PO DAILY [facility] Last Admin: 07/26/23 08:41 Dose: 20 mg Documented By: DIA Gabapentin (Gabapentin 300 Mg Capsule) 300 mg PO BEDTIME [facility] Hydralazine HCl (Hydralazine Hcl 10 Mg Tablet) 10 mg PO TID [facility]; Protocol Last Admin: 07/26/23 13:13 Dose: Not Given Documented By: ELVER Non-Admin Reason: Off unit: Dialysis Azithromycin 500 mg/ Sodium (Chloride) 250 mls @ 125 mls/hr IV BEDTIME [facility] Stop: 07/30/23 20:59 Ceftriaxone Sodium 1 gm/ (Sodium Chloride) 50 mls @ 100 mls/hr IV BEDTIME [facility] Stop: 07/29/23 21:29 Melatonin (Melatonin 3 Mg Tablet) 6 mg PO BEDTIME PRN PRN Reason: Insomnia Nitroglycerin (Nitroglycerin 0.4 Mg Tab.Subl) 0.4 mg SUBLINGUAL Q5M PRN PRN Reason: Chest Pain Omeprazole (Omeprazole 20 Mg Capsule.) 20 mg PO DAILY@0630 [facility] Last Admin: 07/26/23 08:40 Dose: 20 mg Documented By: DIA Ondansetron HCl (Ondansetron Hcl 4 Mg/2 Ml Vial) 4 mg IVPUSH Q8H PRN PRN Reason: Nausea and Vomiting Oxycodone HCl (Oxycodone Hcl Immed Release 5 Mg Tablet) 5 mg PO Q4H PRN PRN Reason: Pain, Severe (Pain Scale 7-10) Paroxetine HCl (Paroxetine Hcl 30 Mg Tablet) 30 mg PO DAILY [facility] Last Admin: 07/26/23 13:18 Dose: 30 mg Documented By: PODMORP Sevelamer Carbonate (Sevelamer Carbonate Tablet 800 Mg Tablet) 800 mg PO TIDWM [facility] Last Admin: 07/26/23 13:18 Dose: 800 mg Documented By: PODMORP Sodium Chloride (0.9 % Sodium Chloride Flush 3 Ml Syringe) 3 ml IVFLUSH QSHIFT [facility] Last Admin: 07/26/23 08:42 Dose: 3 ml Documented By: DIA Trazodone HCl (Trazodone Hcl 50 Mg Tablet) 50 mg PO BEDTIME [facility] Labs 07/26/23 14:14 07/25/23 18:55 Labs: Laboratory Results - last 24 hr 07/25/23 07/25/23 07/25/23 18:55 22:43 22:44 MCV 95.8 MCH 30.3 MCHC 31.6 RDW 14.6 Plt Count 133 L D MPV 9.7 Immature Gran % (Auto) 0.6 H Neut % (Auto) 77.4 H Lymph % (Auto) 11.6 L Dawson % (Auto) 9.7 Eos % (Auto) 0.4 Baso % (Auto) 0.3 Lymph # (Auto) 1.3 Dawson # (Auto) 1.0 Eos # (Auto) 0.0 Baso # (Auto) 0.0 Abs Immat Gran (auto) 0.06 H Absolute Neuts (auto) 8.3 Absolute Nucleated RBC 0.000 Nucleated RBC % (auto) 0.0 VBG pH VBG pCO2 VBG pO2 VBG HCO3 VBG O2 Saturation VBG Base Excess Anion Gap 16 Estim Creat Clear Calc 8.8 Estimated GFR 11 Random Glucose 88 Lactic Acid 1.1 Calcium 7.4 L D Total Bilirubin 0.3 AST 14 ALT 5 Alkaline Phosphatase 109 C-Reactive Protein 14.68 H B-Natriuretic Peptide 1268 H Total Protein 6.9 Albumin 2.7 L Procalcitonin 3.54 Influenza Type A (PCR) NEGATIVE Influenza Type B (PCR) NEGATIVE RSV RNA Qual (PCR) NEGATIVE SARS-CoV-2 RNA (RT-PCR) NEGATIVE 07/25/23 07/26/23 22:45 14:14 MCV 93.3 MCH 29.8 MCHC 31.9 RDW 14.7 Plt Count 130 L MPV 10.0 Immature Gran % (Auto) 0.7 H Neut % (Auto) 81.2 H Lymph % (Auto) 8.8 L Dawson % (Auto) 8.6 Eos % (Auto) 0.4 Baso % (Auto) 0.3 Lymph # (Auto) 1.1 L Dawson # (Auto) 1.1 Eos # (Auto) 0.1 Baso # (Auto) 0.0 Abs Immat Gran (auto) 0.09 H Absolute Neuts (auto) 10.5 H Absolute Nucleated RBC 0.000 Nucleated RBC % (auto) 0.0 VBG pH 7.51 H VBG pCO2 24 VBG pO2 121 VBG HCO3 19 L VBG O2 Saturation 99.0 VBG Base Excess -2.1 Anion Gap Estim Creat Clear Calc Estimated GFR Random Glucose Lactic Acid Calcium Total Bilirubin AST ALT Alkaline Phosphatase C-Reactive Protein B-Natriuretic Peptide Total Protein Albumin Procalcitonin Influenza Type A (PCR) Influenza Type B (PCR) RSV RNA Qual (PCR) SARS-CoV-2 RNA (RT-PCR) Assessment and Plan (1) ESRD (end stage renal disease) on dialysis: Status: Acute (2) Atrial fibrillation with RVR: Status: Acute (3) Pneumonia: Status: Acute Plan 73 year old white female with history of ESRD on HD MWF, PAF on Eliquis, CAD s/o NSTEMI, HFpEF, , left BERTHA, h/o DVT, asthma, interstitial nephritis and recently diagnosed LLL lung mass s/p bronchoscopy at [facility] yesterday here with wet cough, weakness and shakiness subjective fevers no chills, and ED BNP 1 268, elevated CRP sodium 131, procalcitonin 3.5 for, temp 100.1 degrees, chest x-ray showed worsening pulmonary aeration in the left lower lobe with increased hazy airspace opacities and new trace left-sided pleural fluid concerning for either subsegmental atelectasis edema or infiltrate patient admitted with a diagnosis of possible aspiration pneumonia and admitted to medical floor 1. Aspiration pneumonia - sudden onset of respiratory symptoms concerning for aspiration pneumonia - admit and continue with IV antibiotics (azithromycin and ceftriaxone) - elevated CRP due to multiple comorbidities will follow procalcitonin level. - add cough medication 2. Atrial fib/flutter with RVR - EKG shows atrial flutter - continue home medications Eliqus and Coreg,telemonitor, follow nina. 3. ESRD - On HD MWF, receiving hemodialysis today - consult [facility] for dialysis today 4. Volume overload - likely with an element of volume overload will benefit from dialysis , no acute CHF chronically elevated BNP 5. CAD - continue ASA + Lipitor + coreg, hold hydralazine due to soft blood pressure. 6. mood disorder - continue trazodone + paroxetine 7. GERD - PPI 8. chronic hyponatremia stable in my clinical judgment patient need continued inpatient hospitalization for treatment of pneumonia with IV antibiotics and close clinical follow-up with multiple comorbidities. Quality Stroke Does the patient have a stroke diagnosis?: No VTE Prior VTE?: Yes VTE Risk Level:: Medical - moderate - high VTE Device Contraindication: N/A - Device Ordered VTE Drug Contraindication: N/A - Med Ordered
[2023-07-26 15:18] LABS: Anion Gap 15 (12-20); Blood Urea Nitrogen 10 mg/dL (9-16); Calcium 8.2 mg/dL (8.4-10.2); Carbon Dioxide 26 mmol/L (22-29); Chloride 97 mmol/L (96-108); Creatinine Clr Calc Pharmacy 19.6; Estimated Glomerular Filt Rate 26; Glucose Random 100 mg/dL (60-115); Potassium 3.7 mmol/L (3.3-5.1); Sodium 134 mmol/L (135-145)
[2023-07-26] MEDS: Epoetin Alfa-epbx 10,000 UNIT/ML VIAL 5000 UNIT IVPUSH (17:16)
[2023-07-26] MEDS: guaiFENesin DM 200/20/10 ML 10 ML SYRUP PO ×2 (17:16→20:57)
[2023-07-26] MEDS: vancomycin HCL 1,250 MG in 0.9 % Sodium Chloride 250 ML 166.67 MG IV (20:47)
[2023-07-26] MEDS: traZODone HCL 50 MG TABLET PO (20:55)
[2023-07-26] MEDS: Gabapentin 300 MG CAPSULE PO (20:56)
[2023-07-26] MEDS: cefTRIAXone sodium 1 GM in 0.9 % Sodium Chloride 50 ML IV (23:13)
[2023-07-27] VITALS (9 sets, daily range): BP systolic 93–123; BP diastolic 51–60; PULSE 77–88; RESP 16–20; TEMP 36.7–37.1; O2SAT 92–99
[2023-07-27] MEDS: Azithromycin 500 MG in 0.9 % Sodium Chloride 250 ML 125 MG IV (00:26)
[2023-07-27] MEDS: Omeprazole 20 MG CAPSULE.DR PO (07:36)
[2023-07-27] MEDS: Atorvastatin Calcium 80 MG TABLET PO (08:51)
[2023-07-27] MEDS: Apixaban 2.5 MG TABLET PO ×2 (08:51→21:18)
[2023-07-27] MEDS: Aspirin 81 MG TAB.CHEW PO (08:52)
[2023-07-27] MEDS: Sevelamer Carbonate Tablet 800 MG TABLET PO ×3 (08:52→17:10)
[2023-07-27] MEDS: Cyclobenzaprine HCl 5 MG TABLET PO ×3 (08:52→22:10)
[2023-07-27] MEDS: PARoxetine HCL 30 MG TABLET PO (08:52)
[2023-07-27] MEDS: Ferrous Sulfate 324 MG TABLET.DR PO (08:52)
[2023-07-27] MEDS: guaiFENesin DM 200/20/10 ML 10 ML SYRUP PO ×4 (08:52→21:18)
[2023-07-27] MEDS: carvediloL 6.25 MG TABLET PO ×2 (08:52→21:18)
[2023-07-27] MEDS: 0.9 % Sodium Chloride Flush 3 ML SYRINGE IVFLUSH ×3 (08:53→21:18)
[2023-07-27] MEDS: Acetaminophen 325 MG TABLET 650 MG PO ×2 (08:55→18:18)
[2023-07-27] MEDS: Ascorbic Acid 250 MG TABLET PO (08:57)
[2023-07-27] MEDS: Docusate Sodium 100 MG CAPSULE PO ×2 (08:58→21:18)
[2023-07-27] MEDS: hydrALAZINE HCl 10 MG TABLET PO (09:06)
[2023-07-27 12:11] LABS: Appearance Urine Turbid; Color Urine Yellow; Glucose Urine UA Negative (Negative); Leukocyte Esterase Urine Large (3+) (Negative); Nitrite Urine Negative (Negative); Specific Gravity - Urine 1.015 (1.005-1.025); UMIC TRIGGER UACC YES; Urine Blood Large (3+) (Negative); Urine Ketones Negative (Negative); Urine Protein 300 (3+) mg/dL (Neg-Trace)
[2023-07-27 12:29] LABS: Bacteria Urine 2+ (None Seen); Hyaline Casts Urine 0-2 /LPF (0-2); RBC Urine >20 /HPF (0-2); Squamous Epithelial Cell Urine >20 /HPF (0-2); UACC Culture Trigger YES; WBC Urine >50 /HPF (0-5)
--- NOTE | 2023-07-27 14:03 | P.PNNP_ITS ---
Subjective Subjective Date of Service: 07/27/23 Interval history: pt seen and examined denies fever, no chills, denies nausea vomiting, no abdominal pain or diarrhea. Physical Exam 2 Vital Signs: Vital Signs: Last Vital Signs Temp 98.2 F 07/27/23 11:02 Pulse 80 07/27/23 11:02 Resp 18 07/27/23 11:02 BP 100/60 07/27/23 11:02 Pulse Ox 98 07/27/23 11:02 O2 Del Method Nasal Cannula 07/27/23 11:02 O2 Flow Rate 3 07/27/23 11:02 BMI result Body Mass Index 20.7 alert oriented x3. cvs: s1s2 Rs; cta abd: soft access; Left IJ PC Objective Data Labs 07/26/23 14:14 07/26/23 14:14 Labs: Laboratory Results - last 24 hr 07/26/23 07/27/23 14:14 11:40 WBC 13.0 H RBC 2.99 L Hgb 8.9 L Hct 27.9 L MCV 93.3 MCH 29.8 MCHC 31.9 RDW 14.7 Plt Count 130 L MPV 10.0 Immature Gran % (Auto) 0.7 H Neut % (Auto) 81.2 H Lymph % (Auto) 8.8 L Vance % (Auto) 8.6 Eos % (Auto) 0.4 Baso % (Auto) 0.3 Lymph # (Auto) 1.1 L Vance # (Auto) 1.1 Eos # (Auto) 0.1 Baso # (Auto) 0.0 Abs Immat Gran (auto) 0.09 H Absolute Neuts (auto) 10.5 H Absolute Nucleated RBC 0.000 Nucleated RBC % (auto) 0.0 Sodium 134 L Potassium 3.7 Chloride 97 Carbon Dioxide 26 Anion Gap 15 BUN 10 Creatinine 1.87 H Estim Creat Clear Calc 19.6 Estimated GFR 26 Random Glucose 100 Calcium 8.2 L D Urine Color Yellow Urine Appearance Turbid Urine pH 7.0 Ur Specific [place] 1.015 Urine Protein 300 (3+) H Urine Glucose (UA) Negative Urine Ketones Negative Urine Blood Large (3+) H Urine Nitrite Negative Ur Leukocyte Esterase Large (3+) H Urine RBC >20 H Urine WBC >50 H Ur Squamous Epith Cells >20 Urine Bacteria 2+ Hyaline Casts 0-2 Microbiology Microbiology Results: Microbiology 07/25/23 22:43 Blood - Venous Blood Culture - Preliminary Prelim: GPC Gram Stain only 07/25/23 22:43 Blood - Venous Blood Culture - Preliminary No growth after 24 hours. Procedures Date of Service Date of Service: 07/27/23 Assessment & Plan Assessment and plan (1) ESRD (end stage renal disease) on dialysis: Status: Acute Plan 73 year old white female with history of ESRD on HD MWF, PAF on Eliquis, CAD s/o NSTEMI- s/p CABG,, HFpEF, , left BERTHA, h/o DVT, asthma, interstitial nephritis and recently diagnosed LLL lung mass/ adenocarcinoma s/p bronchoscopy at [facility] prior to admit- who presented to the emergency room for concern of aspiration pna and volume overload. Elderly woman with ESRD on maintenance hemodialysis. From renal standpoint she is doing very well without any signs or symptoms of uremia. Fluid status is acceptable. Plan is to arrange for hemodialysis as per schedule on Monday. Resume Epogen for anemia. EPO weekly, dosed monday. renal panel on dialysis days. Time Spent With Patient Time: Total time managing care of this patient today ____ minutes. Progress Note: Quality Stroke Does the patient have a stroke diagnosis?: No
[2023-07-27] MEDS: Albuterol/Iprat 2.5/0.5MG 3 ML AMPUL.NEB INHALE ×2 (15:26→19:52)
--- NOTE | 2023-07-27 15:37 | HO.PM.IMPN ---
Subjective Subjective Date of Service: 07/27/23 Interval History: Complaining of cough and shortness of breath, denies fever, no chills complaining of difficulty with urination has not voided in 2 days usually void 3-4 times daily, denies abdominal pain, no history of urinary burning or dysuria, noted to have soft blood pressures. Review of Systems All other system reviewed and negative. Physical Exam Vital Signs: Vital Signs: Last Vital Signs Temp 98.8 F 07/27/23 14:42 Pulse 88 07/27/23 15:30 Resp 20 07/27/23 15:30 BP 93/51 L 07/27/23 14:42 Pulse Ox 94 07/27/23 14:42 O2 Del Method Nasal Cannula 07/27/23 14:42 O2 Flow Rate 2 07/27/23 14:42 BMI result Body Mass Index 20.7 Const: Other: General awake alert x3,frail, noted to be in mild distress due to coughing. Neck supple no JVD. CVS regular rate rhythm, Respiratory lungs coarse breath sounds with expiratory wheeze. Gastrointestinal abdomen soft, non tender, bowel sounds audible, no guarding , no rigidity. Extremities no edema. Neuro nonfocal Skin no rash psych appropriate affect Objective Data Active Medications Acetaminophen (Acetaminophen 325 Mg Tablet) 650 mg PO Q6H PRN PRN Reason: Pain, Mild (Pain Scale 1-3) Last Admin: 07/27/23 08:55 Dose: 650 mg Documented By: MERLE Al Hydroxide/Mg Hydroxide (Magnesium Hydrox/Alum Hydrox 30 Ml Oral.Susp) 30 ml PO Q4H PRN PRN Reason: Heartburn/Nausea Albuterol/Ipratropium (Albuterol/Iprat 2.5/0.5mg 3 Ml Ampul.Neb) 3 ml INHALE RQ4H WHILE AWAKE [facility] Last Admin: 07/27/23 15:26 Dose: 3 ml Documented By: BOBBY Apixaban (Apixaban 2.5 Mg Tablet) 2.5 mg PO BID [facility] Last Admin: 07/27/23 08:51 Dose: 2.5 mg Documented By: MERLE Ascorbic Acid (Ascorbic Acid 250 Mg Tablet) 250 mg PO DAILY [facility] Last Admin: 07/27/23 08:57 Dose: 250 mg Documented By: MERLE Aspirin (Aspirin 81 Mg Tab.Chew) 81 mg PO DAILY [facility] Last Admin: 07/27/23 08:52 Dose: 81 mg Documented By: MERLE Atorvastatin Calcium (Atorvastatin Calcium 80 Mg Tablet) 80 mg PO DAILY [facility] Last Admin: 07/27/23 08:51 Dose: 80 mg Documented By: MERLE Benzonatate (Benzonatate 100 Mg Capsule) 100 mg PO TID PRN PRN Reason: Cough Last Admin: 07/26/23 13:19 Dose: 100 mg Documented By: PODMORP Carvedilol (Carvedilol 6.25 Mg Tablet) 6.25 mg PO BID [facility]; Protocol Last Admin: 07/27/23 08:52 Dose: 6.25 mg Documented By: MERLE Cyclobenzaprine HCl (Cyclobenzaprine Hcl 5 Mg Tablet) 5 mg PO TID [facility] Last Admin: 07/27/23 08:52 Dose: 5 mg Documented By: MERLE Docusate Sodium (Docusate Sodium 100 Mg Capsule) 100 mg PO BID [facility] Last Admin: 07/27/23 08:58 Dose: 100 mg Documented By: MERLE Ferrous Sulfate (Ferrous Sulfate 324 Mg Tablet.Dr) 324 mg PO DAILY [facility] Last Admin: 07/27/23 08:52 Dose: 324 mg Documented By: MERLE Gabapentin (Gabapentin 300 Mg Capsule) 300 mg PO BEDTIME [facility] Last Admin: 07/26/23 20:56 Dose: 300 mg Documented By: VALENTINA Guaifenesin/Dextromethorphan (Guaifenesin Dm 200/20/10 Ml 10 Ml Syrup) 10 ml PO QID [facility] Last Admin: 07/27/23 11:58 Dose: 10 ml Documented By: MERLE Hydralazine HCl (Hydralazine Hcl 10 Mg Tablet) 10 mg PO TID [facility]; Protocol Last Admin: 07/27/23 15:08 Dose: Not Given Documented By: MERLE Non-Admin Reason: soft BP- hold-MD aware Vancomycin HCl 500 mg/ Sodium (Chloride) 110 mls @ 110 mls/hr IV MOWEFR [facility] Ceftriaxone Sodium 1 gm/ (Sodium Chloride) 50 mls @ 100 mls/hr IV Q24H [facility] Stop: 07/29/23 22:29 Last Infusion: 07/26/23 23:53 Dose: Infused Documented By: VALENTINA Azithromycin 500 mg/ Sodium (Chloride) 250 mls @ 125 mls/hr IV Q24H [facility] Stop: 07/30/23 01:59 Last Infusion: 07/27/23 02:30 Dose: Infused Documented By: VALENTINA Melatonin (Melatonin 3 Mg Tablet) 6 mg PO BEDTIME PRN PRN Reason: Insomnia Nitroglycerin (Nitroglycerin 0.4 Mg Tab.Subl) 0.4 mg SUBLINGUAL Q5M PRN PRN Reason: Chest Pain Omeprazole (Omeprazole 20 Mg Capsule.Dr) 20 mg PO DAILY@0630 [facility] Last Admin: 07/27/23 07:36 Dose: 20 mg Documented By: VALENTINA Ondansetron HCl (Ondansetron Hcl 4 Mg/2 Ml Vial) 4 mg IVPUSH Q8H PRN PRN Reason: Nausea and Vomiting Oxycodone HCl (Oxycodone Hcl Immed Release 5 Mg Tablet) 5 mg PO Q4H PRN PRN Reason: Pain, Severe (Pain Scale 7-10) Paroxetine HCl (Paroxetine Hcl 30 Mg Tablet) 30 mg PO DAILY [facility] Last Admin: 07/27/23 08:52 Dose: 30 mg Documented By: MERLE Pharmacy Consult (Consult Rx Vancomycin Dosing) 1 each MISCELLANE DAILY PRN PRN Reason: Consult order Sevelamer Carbonate (Sevelamer Carbonate Tablet 800 Mg Tablet) 800 mg PO TIDWM [facility] Last Admin: 07/27/23 11:58 Dose: 800 mg Documented By: MERLE Sodium Chloride (0.9 % Sodium Chloride Flush 3 Ml Syringe) 3 ml IVFLUSH QSHIFT [facility] Last Admin: 07/27/23 08:53 Dose: 3 ml Documented By: MERLE Trazodone HCl (Trazodone Hcl 50 Mg Tablet) 50 mg PO BEDTIME [facility] Last Admin: 07/26/23 20:55 Dose: 50 mg Documented By: VALENTINA Labs 07/26/23 14:14 07/26/23 14:14 Labs: Laboratory Results - last 24 hr 07/27/23 11:40 Urine Color Yellow Urine Appearance Turbid Urine pH 7.0 Ur Specific [place] 1.015 Urine Protein 300 (3+) H Urine Glucose (UA) Negative Urine Ketones Negative Urine Blood Large (3+) H Urine Nitrite Negative Ur Leukocyte Esterase Large (3+) H Urine RBC >20 H Urine WBC >50 H Ur Squamous Epith Cells >20 Urine Bacteria 2+ Hyaline Casts 0-2 Microbiology Microbiology Results: Microbiology 07/25/23 22:43 Blood Culture - Preliminary Blood - Venous Gram positive cocci 07/25/23 22:43 Blood Culture - Preliminary Blood - Venous No growth after 24 hours. Assessment and Plan (1) ESRD (end stage renal disease) on dialysis: Status: Acute (2) Atrial fibrillation with RVR: Status: Acute (3) Pneumonia: Status: Acute Plan 73 year old white female with history of ESRD on HD MWF, PAF on Eliquis, CAD s/o NSTEMI, HFpEF, , left BERTHA, h/o DVT, asthma, interstitial nephritis and recently diagnosed LLL lung mass s/p bronchoscopy at [facility] yesterday here with wet cough, weakness and shakiness subjective fevers no chills, and ED BNP 1 268, elevated CRP sodium 131, procalcitonin 3.5 for, temp 100.1 degrees, chest x-ray showed worsening pulmonary aeration in the left lower lobe with increased hazy airspace opacities and new trace left-sided pleural fluid concerning for either subsegmental atelectasis edema or infiltrate patient admitted with a diagnosis of possible aspiration pneumonia and admitted to medical floor 1. Aspiration pneumonia/Gram-positive bacteremia 1/2 blood cultures - sudden onset of respiratory symptoms concerning for aspiration pneumonia, chest x-ray as above - continue with IV antibiotics (azithromycin and ceftriaxone) and IV vancomycin post hemodialysis - elevated CRP due to multiple comorbidities , significantly elevated procalcitonin 3.54 - continue cough medication, updraft treatment and oxygen, repeat chest x-ray - low blood pressures noted post hemodialysis likely after fluid removal, not due to sepsis. 2. Atrial fib/flutter with RVR - EKG shows atrial flutter,stable vent rate - continue home medications Eliqus and Coreg,telemonitor, follow nina. 3. ESRD - On HD MWF, being followed by Nephrology. 4. Volume overload - improved after hemodialysis, no acute CHF chronically elevated BNP 5. CAD - continue ASA + Lipitor + coreg, hold hydralazine due to soft blood pressure. 6. mood disorder - continue trazodone + paroxetine 7. GERD - PPI 8. chronic hyponatremia stable 9. Gram-positive bacteremia 1/2 blood cultures positive question source respiratory versus UTI UA positive will obtain urine culture continue IV vancomycin follow final sensitivities Follow clinical course/check CBC in my clinical judgment patient need continued inpatient hospitalization for treatment of pneumonia with IV antibiotics and close clinical follow-up with multiple comorbidities. Quality Stroke Does the patient have a stroke diagnosis?: No VTE Prior VTE?: Yes VTE Risk Level:: Medical - moderate - high VTE Device Contraindication: N/A - Device Ordered VTE Drug Contraindication: N/A - Med Ordered
[2023-07-27] MEDS: cefTRIAXone sodium 1 GM in 0.9 % Sodium Chloride 50 ML IV (21:13)
[2023-07-27] MEDS: traZODone HCL 50 MG TABLET PO (21:18)
[2023-07-27] MEDS: Gabapentin 300 MG CAPSULE PO (21:18)
[2023-07-28] VITALS (8 sets, daily range): BP systolic 113–140; BP diastolic 58–78; PULSE 77–97; RESP 18–20; TEMP 36.2–37.1; O2SAT 90–98
[2023-07-28] MEDS: Azithromycin 500 MG in 0.9 % Sodium Chloride 250 ML 125 MG IV (00:41)
[2023-07-28] MEDS: guaiFEN/Codeine SF 200/20/10ML 10 ML LIQUID 5 ML PO ×3 (05:36→22:07)
[2023-07-28] MEDS: Omeprazole 20 MG CAPSULE.DR PO (05:36)
[2023-07-28] MEDS: Albuterol/Iprat 2.5/0.5MG 3 ML AMPUL.NEB INHALE ×3 (07:36→19:48)
[2023-07-28 07:40] LABS: Procalcitonin 1.81 ng/mL
[2023-07-28 07:41] LABS: Hematocrit 24.6 % (37.0-47.0); Hemoglobin 7.7 g/dl (12.0-16.0); Mean Corpuscular HGB Conc 31.3 g/dl (31.0-35.0); Mean Corpuscular Hemoglobin 30.2 pg (27.0-33.0); Mean Corpuscular Volume 96.5 fL (80.0-98.0); Mean Platelet Volume 10.8 fL (9.4-12.3); Platelet Count 142 X10*3/uL (160-400); Red Blood Count 2.55 X10*6/uL (4.20-5.50); Red Cell Distribution Width 14.5 % (11.0-16.0)
[2023-07-28] MEDS: Docusate Sodium 100 MG CAPSULE PO ×2 (08:12→21:18)
[2023-07-28] MEDS: PARoxetine HCL 30 MG TABLET PO (08:12)
[2023-07-28] MEDS: Apixaban 2.5 MG TABLET PO ×2 (08:12→21:18)
[2023-07-28] MEDS: Atorvastatin Calcium 80 MG TABLET PO (08:13)
[2023-07-28] MEDS: Ferrous Sulfate 324 MG TABLET.DR PO (08:13)
[2023-07-28] MEDS: Ascorbic Acid 250 MG TABLET PO (08:13)
[2023-07-28] MEDS: Cyclobenzaprine HCl 5 MG TABLET PO ×3 (08:13→21:19)
[2023-07-28] MEDS: Aspirin 81 MG TAB.CHEW PO (08:13)
[2023-07-28] MEDS: Sevelamer Carbonate Tablet 800 MG TABLET PO ×2 (08:13→17:54)
[2023-07-28] MEDS: guaiFENesin DM 200/20/10 ML 10 ML SYRUP PO ×2 (08:21→14:31)
--- NOTE | 2023-07-28 08:26 | PC.NURSE ---
Pt having strenuous cough this AM stating the guaif has - effect, unable to expectorate, feels worse overall and is coughing all the time. Md informed, ?'ed repeat CXR, mucomyst and CPT.
--- NOTE | 2023-07-28 14:59 | P.PNNP_ITS ---
Subjective Subjective Date of Service: 07/28/23 Interval history: Complaining of cough Had dialysis this am without problems. Physical Exam 2 Vital Signs: Vital Signs: Last Vital Signs Temp 97.8 F 07/28/23 07:22 Pulse 97 07/28/23 14:31 Resp 20 07/28/23 14:31 BP 126/58 L 07/28/23 07:22 Pulse Ox 94 07/28/23 07:22 O2 Del Method Nasal Cannula 07/28/23 07:22 O2 Flow Rate 2 07/28/23 03:37 BMI result Body Mass Index 20.7 Const: Other: Chronically ill appearing Neck: Other: Supple Resp: Auscultation: clear to auscultation bilaterally Cardio: Heart sounds: S1 normal heart sound present, S2 normal heart sound present and Murmur heart sound present Skin: Other: Pale, ecchymoses on arms Objective Data Labs 07/28/23 06:47 07/26/23 14:14 Labs: Laboratory Results - last 24 hr 07/28/23 06:47 WBC 12.0 H RBC 2.55 L Hgb 7.7 L Hct 24.6 L MCV 96.5 MCH 30.2 MCHC 31.3 RDW 14.5 Plt Count 142 L MPV 10.8 Absolute Nucleated RBC 0.000 Nucleated RBC % (auto) 0.0 Procalcitonin 1.81 Microbiology Microbiology Results: Microbiology 07/27/23 Unknown Urine Catheterized - Straight Catheter Urine Culture - Final No growth. 07/25/23 22:43 Blood - Venous Blood Culture - Preliminary Gram positive cocci 07/25/23 22:43 Blood - Venous Blood Culture - Preliminary No growth after 48 hours. Procedures Date of Service Date of Service: 07/28/23 Assessment & Plan Assessment and plan (1) Anemia in CKD (chronic kidney disease): Status: Acute (2) Anemia: Status: Acute Assessment and Plan: May require transfusion (3) ESRD (end stage renal disease) on dialysis: Status: Acute Assessment and Plan: dialysis today Plan 73 year old white female with history of ESRD on HD MWF, PAF on Eliquis, CAD s/o NSTEMI, HFpEF, , left BERTHA, h/o DVT, asthma, interstitial nephritis and recently diagnosed LLL lung mass s/p bronchoscopy at [facility] yesterday here with wet cough, weakness and shakiness subjective fevers no chills, and ED BNP 1 268, elevated CRP sodium 131, procalcitonin 3.5 for, temp 100.1 degrees, chest x-ray showed worsening pulmonary aeration in the left lower lobe with increased hazy airspace opacities and new trace left-sided pleural fluid concerning for either subsegmental atelectasis edema or infiltrate patient admitted with a diagnosis of possible aspiration pneumonia and admitted to medical floor 1. ESRD: dialysis today; MWF schedule, usually dialyzes at [facility] 2. Marked anemia: may require transfusion; would hold EPO in setting of possible lung cancer 3. Pneumonia/cough/lung mass and fever: on antibiotics awaiting path from bronch yestrday Time Spent With Patient Time: Total time managing care of this patient today ____ minutes. Progress Note: Quality Stroke Does the patient have a stroke diagnosis?: No
--- NOTE | 2023-07-28 15:03 | HO.PM.IMPN ---
Subjective Subjective Date of Service: 07/28/23 Interval History: complaining of persistent congestive cough unable to bring up phlegm , shortness of breath with minimal activity,no fevers, no chills, no other acute issues overnight. receiving hemodialysis Review of Systems all other system reviewed and negative Physical Exam Vital Signs: Vital Signs: Last Vital Signs Temp 97.8 F 07/28/23 07:22 Pulse 97 07/28/23 14:31 Resp 20 07/28/23 14:31 BP 126/58 L 07/28/23 07:22 Pulse Ox 94 07/28/23 07:22 O2 Del Method Nasal Cannula 07/28/23 07:22 O2 Flow Rate 2 07/28/23 03:37 BMI result Body Mass Index 20.7 Const: Other: General awake alert x3,frail, noted to be in mild distress due to coughing. Neck supple no JVD. CVS regular rate rhythm, Respiratory lungs coarse breath sounds with expiratory wheeze. Gastrointestinal abdomen soft, non tender, bowel sounds audible, no guarding , no rigidity. Extremities no edema. Neuro nonfocal Skin no rash psych appropriate affect Objective Data Active Medications Acetaminophen (Acetaminophen 325 Mg Tablet) 650 mg PO Q6H PRN PRN Reason: Pain, Mild (Pain Scale 1-3) Last Admin: 07/27/23 18:18 Dose: 650 mg Documented By: MERLE Al Hydroxide/Mg Hydroxide (Magnesium Hydrox/Alum Hydrox 30 Ml Oral.Susp) 30 ml PO Q4H PRN PRN Reason: Heartburn/Nausea Albuterol/Ipratropium (Albuterol/Iprat 2.5/0.5mg 3 Ml Ampul.Neb) 3 ml INHALE RQ4H WHILE AWAKE [facility] Last Admin: 07/28/23 14:31 Dose: 3 ml Documented By: KIM Apixaban (Apixaban 2.5 Mg Tablet) 2.5 mg PO BID [facility] Last Admin: 07/28/23 08:12 Dose: 2.5 mg Documented By: PAULA Ascorbic Acid (Ascorbic Acid 250 Mg Tablet) 250 mg PO DAILY [facility] Last Admin: 07/28/23 08:13 Dose: 250 mg Documented By: PAULA Aspirin (Aspirin 81 Mg Tab.Chew) 81 mg PO DAILY [facility] Last Admin: 07/28/23 08:13 Dose: 81 mg Documented By: PAULA Atorvastatin Calcium (Atorvastatin Calcium 80 Mg Tablet) 80 mg PO DAILY [facility] Last Admin: 07/28/23 08:13 Dose: 80 mg Documented By: PAULA Carvedilol (Carvedilol 6.25 Mg Tablet) 6.25 mg PO BID [facility]; Protocol Last Admin: 07/28/23 08:15 Dose: Not Given Documented By: PAULA Non-Admin Reason: pt going for dialysis this am Cyclobenzaprine HCl (Cyclobenzaprine Hcl 5 Mg Tablet) 5 mg PO TID [facility] Last Admin: 07/28/23 14:31 Dose: 5 mg Documented By: PAULA Docusate Sodium (Docusate Sodium 100 Mg Capsule) 100 mg PO BID [facility] Last Admin: 07/28/23 08:12 Dose: 100 mg Documented By: PAULA Ferrous Sulfate (Ferrous Sulfate 324 Mg Tablet.) 324 mg PO DAILY [facility] Last Admin: 07/28/23 08:13 Dose: 324 mg Documented By: PAULA Gabapentin (Gabapentin 300 Mg Capsule) 300 mg PO BEDTIME [facility] Last Admin: 07/27/23 21:18 Dose: 300 mg Documented By: AWILDA Guaifenesin/Codeine Phosphate (Guaifen/Codeine Sf 200/20/10ml 10 Ml Liquid) 5 ml PO Q6H PRN PRN Reason: Cough Last Admin: 07/28/23 14:31 Dose: 5 ml Documented By: PAULA Guaifenesin/Dextromethorphan (Guaifenesin Dm 200/20/10 Ml 10 Ml Syrup) 10 ml PO TID [facility] Last Admin: 07/28/23 14:31 Dose: 10 ml Documented By: PAULA Hydralazine HCl (Hydralazine Hcl 10 Mg Tablet) 10 mg PO TID [facility]; Protocol Last Admin: 07/27/23 15:08 Dose: Not Given Documented By: MERLE Non-Admin Reason: soft BP- hold-MD aware Vancomycin HCl 500 mg/ Sodium (Chloride) 110 mls @ 110 mls/hr IV MOWEFR [facility] Ceftriaxone Sodium 1 gm/ (Sodium Chloride) 50 mls @ 100 mls/hr IV Q24H [facility] Stop: 07/29/23 22:29 Last Infusion: 07/27/23 22:11 Dose: Infused Documented By: AWILDA Azithromycin 500 mg/ Sodium (Chloride) 250 mls @ 125 mls/hr IV Q24H [facility] Stop: 07/30/23 01:59 Last Infusion: 07/28/23 02:50 Dose: Infused Documented By: AWILDA Melatonin (Melatonin 3 Mg Tablet) 6 mg PO BEDTIME PRN PRN Reason: Insomnia Nitroglycerin (Nitroglycerin 0.4 Mg Tab.Subl) 0.4 mg SUBLINGUAL Q5M PRN PRN Reason: Chest Pain Omeprazole (Omeprazole 20 Mg Capsule.Dr) 20 mg PO DAILY@0630 [facility] Last Admin: 07/28/23 05:36 Dose: 20 mg Documented By: AWILDA Ondansetron HCl (Ondansetron Hcl 4 Mg/2 Ml Vial) 4 mg IVPUSH Q8H PRN PRN Reason: Nausea and Vomiting Oxycodone HCl (Oxycodone Hcl Immed Release 5 Mg Tablet) 5 mg PO Q4H PRN PRN Reason: Pain, Severe (Pain Scale 7-10) Paroxetine HCl (Paroxetine Hcl 30 Mg Tablet) 30 mg PO DAILY [facility] Last Admin: 07/28/23 08:12 Dose: 30 mg Documented By: PAULA Pharmacy Consult (Consult Rx Vancomycin Dosing) 1 each MISCELLANE DAILY PRN PRN Reason: Consult order Sevelamer Carbonate (Sevelamer Carbonate Tablet 800 Mg Tablet) 800 mg PO TIDWM [facility] Last Admin: 07/28/23 11:11 Dose: Not Given Documented By: PAULA Non-Admin Reason: Off unit: Dialysis Sodium Chloride (0.9 % Sodium Chloride Flush 3 Ml Syringe) 3 ml IVFLUSH QSHIFT [facility] Last Admin: 07/28/23 13:28 Dose: Not Given Documented By: PAULA Non-Admin Reason: See Note Trazodone HCl (Trazodone Hcl 50 Mg Tablet) 50 mg PO BEDTIME [facility] Last Admin: 07/27/23 21:18 Dose: 50 mg Documented By: AWILDA Labs 07/29/23 07:53 07/26/23 14:14 Labs: Laboratory Results - last 24 hr 07/28/23 06:47 MCV 96.5 MCH 30.2 MCHC 31.3 RDW 14.5 Plt Count 142 L MPV 10.8 Absolute Nucleated RBC 0.000 Nucleated RBC % (auto) 0.0 Procalcitonin 1.81 Microbiology Microbiology Results: Microbiology 07/27/23 Unknown Urine Culture - Final Urine Catheterized - Straight Catheter No growth. 07/25/23 22:43 Blood Culture - Preliminary Blood - Venous Gram positive cocci 07/25/23 22:43 Blood Culture - Preliminary Blood - Venous No growth after 48 hours. Assessment and Plan (1) ESRD (end stage renal disease) on dialysis: Status: Acute (2) Atrial fibrillation with RVR: Status: Acute (3) Pneumonia: Status: Acute Plan 73 year old white female with history of ESRD on HD MWF, PAF on Eliquis, CAD s/o NSTEMI, HFpEF, , left BERTHA, h/o DVT, asthma, interstitial nephritis and recently diagnosed LLL lung mass s/p bronchoscopy at [facility] yesterday here with wet cough, weakness and shakiness subjective fevers no chills, and ED BNP 1 268, elevated CRP sodium 131, procalcitonin 3.5 for, temp 100.1 degrees, chest x-ray showed worsening pulmonary aeration in the left lower lobe with increased hazy airspace opacities and new trace left-sided pleural fluid concerning for either subsegmental atelectasis edema or infiltrate patient admitted with a diagnosis of possible aspiration pneumonia and admitted to medical floor 1. Aspiration pneumonia/Gram-positive bacteremia 1/2 blood cultures - persistent shortness of breath and cough ,chest x-ray as above - continue with IV antibiotics (azithromycin and ceftriaxone) and IV vancomycin post hemodialysis for Gram-positive cocci final report pending - elevated CRP due to multiple comorbidities , significantly elevated procalcitonin 3.54 on admission improved to 1.81 afebrile, stable blood pressures, WBC trending down - continue cough medication, updraft treatment and oxygen, repeat chest x-ray today showed bilateral lower lobe patchy opacity likely combination of infiltrate/atelectasis and effusion.,mild pulmonary vascular congestion undergoing hemodialysis will have fluid removed. will add chest PT and Mucinex. 2. Atrial fib/flutter with RVR - EKG shows atrial flutter,stable vent rate - continue home medications Eliqus and Coreg,telemonitor, follow nina. 3. ESRD - On HD MWF, being followed by Nephrology. 4. Volume overload - no acute CHF chronically elevated BNP, undergoing repeat hemodialysis today with fluid removal 5. CAD - continue ASA + Lipitor + coreg, hold hydralazine due to soft blood pressure. 6. mood disorder - continue trazodone + paroxetine 7. GERD - PPI 8. chronic hyponatremia stable 9. Gram-positive bacteremia 1/2 blood cultures positive question source respiratory versus UTI UA positive will obtain urine culture continue IV vancomycin follow final sensitivities Follow clinical course/check CBC 10. chronic normocytic anemia noted to have drop in hematocrit no active bleeding noted normal iron studies , will repeat hct and transfuse 1 unit,if hct remains low in my clinical judgment patient need continued inpatient hospitalization for treatment of pneumonia with IV antibiotics and close clinical follow-up with multiple comorbidities. Quality Stroke Does the patient have a stroke diagnosis?: No VTE Prior VTE?: Yes VTE Risk Level:: Medical - moderate - high VTE Device Contraindication: N/A - Device Ordered VTE Drug Contraindication: N/A - Med Ordered
--- NOTE | 2023-07-28 15:05 | MHC.CM.PN ---
EMR reviewed and per MD rounds, pt is not medically cleared for D/C due to continued management of pneumonia with IV abx. CM will continue to follow.
--- NOTE | 2023-07-28 16:37 | PC.NURSE ---
Assumed care of patient at this time.
[2023-07-28] MEDS: oxyCODONE HCl Immed Release 5 MG TABLET PO ×2 (17:57→22:06)
[2023-07-28 20:04] LABS: Vancomycin Random 14.9 mcg/mL (15-20)
[2023-07-28] MEDS: Gabapentin 300 MG CAPSULE PO (21:18)
[2023-07-28] MEDS: traZODone HCL 50 MG TABLET PO (21:18)
[2023-07-28] MEDS: 0.9 % Sodium Chloride Flush 3 ML SYRINGE IVFLUSH (21:19)
[2023-07-28] MEDS: carvediloL 6.25 MG TABLET PO (21:19)
[2023-07-28] MEDS: cefTRIAXone sodium 1 GM in 0.9 % Sodium Chloride 50 ML IV (21:19)
[2023-07-29] VITALS (9 sets, daily range): BP systolic 115–143; BP diastolic 57–89; PULSE 71–106; RESP 16–24; TEMP 36.6–37.4; O2SAT 90–99
[2023-07-29] MEDS: Azithromycin 500 MG in 0.9 % Sodium Chloride 250 ML 125 MG IV (00:54)
[2023-07-29] MEDS: Omeprazole 20 MG CAPSULE.DR PO (06:02)
[2023-07-29] MEDS: Albuterol/Iprat 2.5/0.5MG 3 ML AMPUL.NEB INHALE ×3 (07:55→15:56)
[2023-07-29] MEDS: 0.9 % Sodium Chloride Flush 3 ML SYRINGE IVFLUSH ×3 (08:20→20:30)
[2023-07-29] MEDS: Docusate Sodium 100 MG CAPSULE PO ×2 (08:20→20:27)
[2023-07-29] MEDS: Sevelamer Carbonate Tablet 800 MG TABLET PO ×3 (08:23→17:23)
[2023-07-29] MEDS: Apixaban 2.5 MG TABLET PO ×2 (08:23→20:27)
[2023-07-29] MEDS: Aspirin 81 MG TAB.CHEW PO (08:24)
[2023-07-29] MEDS: guaiFENesin LA 600 MG TAB.ER.12H PO ×2 (08:24→20:27)
[2023-07-29] MEDS: PARoxetine HCL 30 MG TABLET PO (08:24)
[2023-07-29] MEDS: carvediloL 6.25 MG TABLET PO ×2 (08:24→20:27)
[2023-07-29] MEDS: Cyclobenzaprine HCl 5 MG TABLET PO ×3 (08:24→20:27)
[2023-07-29] MEDS: Ascorbic Acid 250 MG TABLET PO (08:24)
[2023-07-29] MEDS: Ferrous Sulfate 324 MG TABLET.DR PO (08:24)
[2023-07-29] MEDS: Atorvastatin Calcium 80 MG TABLET PO (08:25)
[2023-07-29 08:27] LABS: Hematocrit 25.5 % (37.0-47.0); Mean Corpuscular HGB Conc 31.4 g/dl (31.0-35.0); Mean Corpuscular Hemoglobin 30.7 pg (27.0-33.0); Mean Corpuscular Volume 97.7 fL (80.0-98.0); Mean Platelet Volume 10.8 fL (9.4-12.3); Platelet Count 149 X10*3/uL (160-400); Red Blood Count 2.61 X10*6/uL (4.20-5.50); Red Cell Distribution Width 14.4 % (11.0-16.0); White Blood Count 10.3 X10*3/uL (4.8-10.8)
[2023-07-29] MEDS: hydrALAZINE HCl 10 MG TABLET PO ×2 (14:33→20:27)
--- NOTE | 2023-07-29 15:33 | HO.PM.IMPN ---
Subjective Subjective Date of Service: 07/29/23 Interval History: feeling better than yesterday, persistent congested cough and shortness of breath with activity, no fevers, no chills tolerating diet no PND, no orthopnea, no other acute issues overnight. Review of Systems All other system reviewed and negative Physical Exam Vital Signs: Vital Signs: Last Vital Signs Temp 98.8 F 07/29/23 15:22 Pulse 77 07/29/23 15:22 Resp 16 07/29/23 15:22 BP 116/57 L 07/29/23 15:22 Pulse Ox 98 07/29/23 15:22 O2 Del Method Humidified O2 07/29/23 15:22 O2 Flow Rate 2 07/29/23 15:22 BMI result Body Mass Index 20.7 Const: Other: General awake alert x3,frail, no acute distress resting comfortably Neck supple no JVD. CVS regular rate rhythm, Respiratory lungs coarse breath sounds with few expiratory wheeze. Gastrointestinal abdomen soft, non tender, bowel sounds audible, no guarding , no rigidity. Extremities no edema. Neuro nonfocal Skin no rash psych appropriate affect Objective Data Active Medications Acetaminophen (Acetaminophen 325 Mg Tablet) 650 mg PO Q6H PRN PRN Reason: Pain, Mild (Pain Scale 1-3) Last Admin: 07/27/23 18:18 Dose: 650 mg Documented By: MERLE Al Hydroxide/Mg Hydroxide (Magnesium Hydrox/Alum Hydrox 30 Ml Oral.Susp) 30 ml PO Q4H PRN PRN Reason: Heartburn/Nausea Albuterol/Ipratropium (Albuterol/Iprat 2.5/0.5mg 3 Ml Ampul.Neb) 3 ml INHALE RQ4H WHILE AWAKE [facility] Last Admin: 07/29/23 11:37 Dose: 3 ml Documented By: ZACHARY Apixaban (Apixaban 2.5 Mg Tablet) 2.5 mg PO BID [facility] Last Admin: 07/29/23 08:23 Dose: 2.5 mg Documented By: JEFF Ascorbic Acid (Ascorbic Acid 250 Mg Tablet) 250 mg PO DAILY [facility] Last Admin: 07/29/23 08:24 Dose: 250 mg Documented By: JEFF Aspirin (Aspirin 81 Mg Tab.Chew) 81 mg PO DAILY [facility] Last Admin: 07/29/23 08:24 Dose: 81 mg Documented By: JEFF Atorvastatin Calcium (Atorvastatin Calcium 80 Mg Tablet) 80 mg PO DAILY [facility] Last Admin: 07/29/23 08:25 Dose: 80 mg Documented By: JEFF Carvedilol (Carvedilol 6.25 Mg Tablet) 6.25 mg PO BID [facility]; Protocol Last Admin: 07/29/23 08:24 Dose: 6.25 mg Documented By: JEFF Cyclobenzaprine HCl (Cyclobenzaprine Hcl 5 Mg Tablet) 5 mg PO TID [facility] Last Admin: 07/29/23 14:33 Dose: 5 mg Documented By: LAURA Docusate Sodium (Docusate Sodium 100 Mg Capsule) 100 mg PO BID [facility] Last Admin: 07/29/23 08:20 Dose: 100 mg Documented By: JEFF Ferrous Sulfate (Ferrous Sulfate 324 Mg Tablet.Dr) 324 mg PO DAILY [facility] Last Admin: 07/29/23 08:24 Dose: 324 mg Documented By: JEFF Gabapentin (Gabapentin 300 Mg Capsule) 300 mg PO BEDTIME [facility] Last Admin: 07/28/23 21:18 Dose: 300 mg Documented By: KATERINE Guaifenesin (Guaifenesin La 600 Mg Tab.Er.12h) 600 mg PO BID [facility] Last Admin: 07/29/23 08:24 Dose: 600 mg Documented By: JEFF Guaifenesin/Codeine Phosphate (Guaifen/Codeine Sf 200/20/10ml 10 Ml Liquid) 5 ml PO Q6H PRN PRN Reason: Cough Last Admin: 07/28/23 22:07 Dose: 5 ml Documented By: KATERINE Hydralazine HCl (Hydralazine Hcl 10 Mg Tablet) 10 mg PO TID [facility]; Protocol Last Admin: 07/29/23 14:33 Dose: 10 mg Documented By: LAURA Vancomycin HCl 500 mg/ Sodium (Chloride) 110 mls @ 110 mls/hr IV MOWEFR [facility] Ceftriaxone Sodium 1 gm/ (Sodium Chloride) 50 mls @ 100 mls/hr IV Q24H [facility] Stop: 07/29/23 22:29 Last Infusion: 07/28/23 22:09 Dose: Infused Documented By: KTAERINE Azithromycin 500 mg/ Sodium (Chloride) 250 mls @ 125 mls/hr IV Q24H [facility] Stop: 07/30/23 01:59 Last Infusion: 07/29/23 04:42 Dose: Infused Documented By: KATERINE Melatonin (Melatonin 3 Mg Tablet) 6 mg PO BEDTIME PRN PRN Reason: Insomnia Nitroglycerin (Nitroglycerin 0.4 Mg Tab.Subl) 0.4 mg SUBLINGUAL Q5M PRN PRN Reason: Chest Pain Omeprazole (Omeprazole 20 Mg Capsule.Dr) 20 mg PO DAILY@0630 [facility] Last Admin: 07/29/23 06:02 Dose: 20 mg Documented By: DEX Ondansetron HCl (Ondansetron Hcl 4 Mg/2 Ml Vial) 4 mg IVPUSH Q8H PRN PRN Reason: Nausea and Vomiting Oxycodone HCl (Oxycodone Hcl Immed Release 5 Mg Tablet) 5 mg PO Q4H PRN PRN Reason: Pain, Severe (Pain Scale 7-10) Last Admin: 07/28/23 22:06 Dose: 5 mg Documented By: KATERINE Paroxetine HCl (Paroxetine Hcl 30 Mg Tablet) 30 mg PO DAILY [facility] Last Admin: 07/29/23 08:24 Dose: 30 mg Documented By: JEFF Pharmacy Consult (Consult Rx Vancomycin Dosing) 1 each MISCELLANE DAILY PRN PRN Reason: Consult order Sevelamer Carbonate (Sevelamer Carbonate Tablet 800 Mg Tablet) 800 mg PO TIDWM [facility] Last Admin: 07/29/23 13:30 Dose: 800 mg Documented By: JEFF Sodium Chloride (0.9 % Sodium Chloride Flush 3 Ml Syringe) 3 ml IVFLUSH QSHIFT [facility] Last Admin: 07/29/23 13:31 Dose: 3 ml Documented By: JEFF Trazodone HCl (Trazodone Hcl 50 Mg Tablet) 50 mg PO BEDTIME [facility] Last Admin: 07/28/23 21:18 Dose: 50 mg Documented By: KATERINE Labs 07/29/23 07:53 07/26/23 14:14 Labs: Laboratory Results - last 24 hr 07/28/23 07/29/23 19:39 07:53 MCV 97.7 MCH 30.7 MCHC 31.4 RDW 14.4 Plt Count 149 L MPV 10.8 Absolute Nucleated RBC 0.000 Nucleated RBC % (auto) 0.0 Random Vancomycin 14.9 L Microbiology Microbiology Results: Microbiology 07/25/23 22:43 Blood Culture - Preliminary Blood - Venous Gram positive cocci 07/27/23 Unknown Urine Culture - Final Urine Catheterized - Straight Catheter No growth. Assessment and Plan (1) ESRD (end stage renal disease) on dialysis: Status: Acute (2) Atrial fibrillation with RVR: Status: Acute (3) Pneumonia: Status: Acute Plan 73 year old white female with history of ESRD on HD MWF, PAF on Eliquis, CAD s/o NSTEMI, HFpEF, , left BERTHA, h/o DVT, asthma, interstitial nephritis and recently diagnosed LLL lung mass s/p bronchoscopy at [facility] yesterday here with wet cough, weakness and shakiness subjective fevers no chills, and ED BNP 1 268, elevated CRP sodium 131, procalcitonin 3.5 for, temp 100.1 degrees, chest x-ray showed worsening pulmonary aeration in the left lower lobe with increased hazy airspace opacities and new trace left-sided pleural fluid concerning for either subsegmental atelectasis edema or infiltrate patient admitted with a diagnosis of possible aspiration pneumonia and admitted to medical floor 1. Aspiration pneumonia/Gram-positive bacteremia 1/2 blood cultures - slowly improving shortness of breath and cough - continue with IV antibiotics (azithromycin and ceftriaxone) and IV vancomycin post hemodialysis for Gram-positive cocci final report pending - elevated CRP due to multiple comorbidities , significantly elevated procalcitonin 3.54 on admission improved to 1.81 afebrile, stable blood pressures, WBC normalized - continue cough medication, updraft treatment and oxygen, repeat chest x-ray 07/28 showed bilateral lower lobe patchy opacity likely combination of infiltrate/atelectasis and effusion.,mild pulmonary vascular congestion underwent hemodialysis with removal of fluid continue chest PT and Mucinex 2. Atrial fib/flutter with RVR - EKG shows atrial flutter,stable vent rate - continue home medications Eliqus and Coreg,telemonitor, follow nina. 3. ESRD - On HD MWF, being followed by Nephrology. 4. Volume overload - no acute CHF chronically elevated BNP, undergoing repeat hemodialysis today with fluid removal 5. CAD - continue ASA + Lipitor + coreg, hold hydralazine due to soft blood pressure. 6. mood disorder - continue trazodone + paroxetine 7. GERD - PPI 8. chronic hyponatremia stable 9. Gram-positive bacteremia 1/2 blood cultures positive question source respiratory versus UTI UA positive will obtain urine culture continue IV vancomycin follow final sensitivities Follow clinical course, WBC normalized. 10. chronic normocytic anemia Repeat hematocrit stable in my clinical judgment patient need continued inpatient hospitalization for treatment of pneumonia with IV antibiotics and close clinical follow-up with multiple comorbidities. Quality Stroke Does the patient have a stroke diagnosis?: No VTE Prior VTE?: Yes VTE Risk Level:: Medical - moderate - high VTE Device Contraindication: N/A - Device Ordered VTE Drug Contraindication: N/A - Med Ordered
--- NOTE | 2023-07-29 17:45 | PM.PNNEP ---
Subjective Subjective Date of Service: 07/29/23 Interval history: feeling better than yesterday, persistent congested cough and shortness of breath with activity, no fevers, no chills tolerating diet no PND, no orthopnea, no other acute issues overnight. Physical Exam Vital Signs: Vital Signs: Last Vital Signs Temp 98.8 F 07/29/23 15:22 Pulse 71 07/29/23 16:01 Resp 16 07/29/23 16:01 BP 116/57 L 07/29/23 15:22 Pulse Ox 98 07/29/23 15:22 O2 Del Method Humidified O2 07/29/23 15:22 O2 Flow Rate 2 07/29/23 15:22 BMI result Body Mass Index 20.7 Const: Other: General awake alert x3,frail, no acute distress resting comfortably Neck supple no JVD. CVS regular rate rhythm, Respiratory lungs coarse breath sounds with few expiratory wheeze. Gastrointestinal abdomen soft, non tender, bowel sounds audible, no guarding , no rigidity. Extremities no edema. Neuro nonfocal Skin no rash psych appropriate affect HEENT: Other: Mucous membranes look slightly dry. Eyes: Other: Pupils are round equal, conjunctivae clear Neck: Other: Supple Resp: Other: Right-sided crackles. No increased respiratory effort. Auscultation: clear to auscultation bilaterally Cardio: Other: The patient had an irregular rate and rhythm with no significant murmur Heart sounds: S1 normal heart sound present, S2 normal heart sound present and Murmur heart sound present GI: Other: Abdomen is soft nontender Skin: Other: Pale, ecchymoses on arms Neuro: Other: Awake alert appropriate. Cranial nerves intact. Moving all 4 extremities symmetrically. No focal deficit. Extrem: Other: No peripheral edema Objective Data Labs 07/29/23 07:53 07/26/23 14:14 Labs: Laboratory Results - last 24 hr 07/28/23 07/29/23 19:39 07:53 WBC 10.3 RBC 2.61 L Hgb 8.0 L Hct 25.5 L MCV 97.7 MCH 30.7 MCHC 31.4 RDW 14.4 Plt Count 149 L MPV 10.8 Absolute Nucleated RBC 0.000 Nucleated RBC % (auto) 0.0 Random Vancomycin 14.9 L Microbiology Microbiology Results: Microbiology 07/25/23 22:43 Blood - Venous Blood Culture - Preliminary Gram positive cocci 07/27/23 Unknown Urine Catheterized - Straight Catheter Urine Culture - Final No growth. 07/25/23 22:43 Blood - Venous Blood Culture - Preliminary No growth after 48 hours. Procedures Date of Service Date of Service: 07/29/23 Assessment & Plan Assessment and plan (1) ESRD (end stage renal disease) on dialysis: Status: Acute (2) Atrial fibrillation with RVR: Status: Acute (3) Pneumonia: Status: Acute Plan 73 year old white female with history of ESRD on HD MWF, PAF on Eliquis, CAD s/o NSTEMI, HFpEF, , left BERTHA, h/o DVT, asthma, interstitial nephritis and recently diagnosed LLL lung mass s/p bronchoscopy at [facility] yesterday here with wet cough, weakness and shakiness subjective fevers no chills, and ED BNP 1 268, elevated CRP sodium 131, procalcitonin 3.5 for, temp 100.1 degrees, chest x-ray showed worsening pulmonary aeration in the left lower lobe with increased hazy airspace opacities and new trace left-sided pleural fluid concerning for either subsegmental atelectasis edema or infiltrate patient admitted with a diagnosis of possible aspiration pneumonia and admitted to medical floor 1. ESRD: HD M [facility] 2. Aspiration pneumonia- on azithromax and ceftriaxone 3. HFpEF: compensated Next HD on Monday Time Spent With Patient Time: Total time managing care of this patient today ____ minutes. Progress Note: Quality Stroke Does the patient have a stroke diagnosis?: No
[2023-07-29] MEDS: Gabapentin 300 MG CAPSULE PO (20:26)
[2023-07-29] MEDS: traZODone HCL 50 MG TABLET PO (20:27)
[2023-07-29] MEDS: cefTRIAXone sodium 1 GM in 0.9 % Sodium Chloride 50 ML IV (20:30)
[2023-07-29] MEDS: oxyCODONE HCl Immed Release 5 MG TABLET PO (20:39)
[2023-07-30] VITALS (9 sets, daily range): BP systolic 119–165; BP diastolic 55–117; PULSE 78–88; RESP 16–18; TEMP 36.4–37.5; O2SAT 91–98
[2023-07-30] MEDS: Azithromycin 500 MG in 0.9 % Sodium Chloride 250 ML 125 MG IV (00:52)
[2023-07-30] MEDS: Omeprazole 20 MG CAPSULE.DR PO (05:13)
[2023-07-30] MEDS: Albuterol/Iprat 2.5/0.5MG 3 ML AMPUL.NEB INHALE ×3 (07:43→14:43)
[2023-07-30] MEDS: hydrALAZINE HCl 10 MG TABLET PO ×3 (10:11→21:56)
[2023-07-30] MEDS: Atorvastatin Calcium 80 MG TABLET PO (10:11)
[2023-07-30] MEDS: Ferrous Sulfate 324 MG TABLET.DR PO (10:11)
[2023-07-30] MEDS: Docusate Sodium 100 MG CAPSULE PO ×2 (10:11→21:58)
[2023-07-30] MEDS: carvediloL 6.25 MG TABLET PO ×2 (10:12→21:56)
[2023-07-30] MEDS: Ascorbic Acid 250 MG TABLET PO (10:12)
[2023-07-30] MEDS: Cyclobenzaprine HCl 5 MG TABLET PO ×3 (10:12→21:56)
[2023-07-30] MEDS: Sevelamer Carbonate Tablet 800 MG TABLET PO ×2 (10:12→17:34)
[2023-07-30] MEDS: Apixaban 2.5 MG TABLET PO ×2 (10:12→21:57)
[2023-07-30] MEDS: Aspirin 81 MG TAB.CHEW PO (10:12)
[2023-07-30] MEDS: guaiFENesin LA 600 MG TAB.ER.12H PO ×2 (10:12→21:58)
[2023-07-30] MEDS: PARoxetine HCL 30 MG TABLET PO (10:12)
[2023-07-30] MEDS: 0.9 % Sodium Chloride Flush 3 ML SYRINGE IVFLUSH ×3 (10:13→21:59)
--- NOTE | 2023-07-30 13:41 | HO.PM.IMPN ---
Subjective Subjective Date of Service: 07/30/23 Interval History: feeling tired, otherwise feeling less shortness of breath , persistent congested cough, no fevers, no chills, oxygenation stable on 2 L, no other acute issues overnight patient mostly in bed. Review of Systems all other system reviewed and negative. Physical Exam Vital Signs: Vital Signs: Last Vital Signs Temp 97.6 F 07/30/23 11:02 Pulse 86 07/30/23 11:23 Resp 18 07/30/23 11:23 BP 119/55 L 07/30/23 11:02 Pulse Ox 95 07/30/23 11:02 O2 Del Method Room Air 07/30/23 11:02 O2 Flow Rate 2 07/30/23 06:57 BMI result Body Mass Index 20.7 Const: Other: General awake alert x3,frail, no acute distress resting comfortably Neck supple no JVD. CVS regular rate rhythm, Respiratory lungs clear ,coarse breath sounds ,no wheeze. Gastrointestinal abdomen soft, non tender, bowel sounds audible, no guarding , no rigidity. Extremities no edema. Neuro non focal Skin no rash psych appropriate affect Objective Data Active Medications Acetaminophen (Acetaminophen 325 Mg Tablet) 650 mg PO Q6H PRN PRN Reason: Pain, Mild (Pain Scale 1-3) Last Admin: 07/27/23 18:18 Dose: 650 mg Documented By: MERLE Al Hydroxide/Mg Hydroxide (Magnesium Hydrox/Alum Hydrox 30 Ml Oral.Susp) 30 ml PO Q4H PRN PRN Reason: Heartburn/Nausea Albuterol/Ipratropium (Albuterol/Iprat 2.5/0.5mg 3 Ml Ampul.Neb) 3 ml INHALE RQ4H WHILE AWAKE [facility] Last Admin: 07/30/23 11:22 Dose: 3 ml Documented By: ALLY Apixaban (Apixaban 2.5 Mg Tablet) 2.5 mg PO BID [facility] Last Admin: 07/30/23 10:12 Dose: 2.5 mg Documented By: JUNIOR Ascorbic Acid (Ascorbic Acid 250 Mg Tablet) 250 mg PO DAILY [facility] Last Admin: 07/30/23 10:12 Dose: 250 mg Documented By: JUNIOR Aspirin (Aspirin 81 Mg Tab.Chew) 81 mg PO DAILY [facility] Last Admin: 07/30/23 10:12 Dose: 81 mg Documented By: JUNIOR Atorvastatin Calcium (Atorvastatin Calcium 80 Mg Tablet) 80 mg PO DAILY [facility] Last Admin: 07/30/23 10:11 Dose: 80 mg Documented By: JUNIOR Carvedilol (Carvedilol 6.25 Mg Tablet) 6.25 mg PO BID [facility]; Protocol Last Admin: 07/30/23 10:12 Dose: 6.25 mg Documented By: JUNIOR Cyclobenzaprine HCl (Cyclobenzaprine Hcl 5 Mg Tablet) 5 mg PO TID [facility] Last Admin: 07/30/23 10:12 Dose: 5 mg Documented By: JUNIOR Docusate Sodium (Docusate Sodium 100 Mg Capsule) 100 mg PO BID [facility] Last Admin: 07/30/23 10:11 Dose: 100 mg Documented By: JUNIOR Ferrous Sulfate (Ferrous Sulfate 324 Mg Tablet.) 324 mg PO DAILY [facility] Last Admin: 07/30/23 10:11 Dose: 324 mg Documented By: JUNIOR Gabapentin (Gabapentin 300 Mg Capsule) 300 mg PO BEDTIME [facility] Last Admin: 07/29/23 20:26 Dose: 300 mg Documented By: KATERINE Guaifenesin (Guaifenesin La 600 Mg Tab.Er.12h) 600 mg PO BID [facility] Last Admin: 07/30/23 10:12 Dose: 600 mg Documented By: JUNIOR Guaifenesin/Codeine Phosphate (Guaifen/Codeine Sf 200/20/10ml 10 Ml Liquid) 5 ml PO Q6H PRN PRN Reason: Cough Last Admin: 07/28/23 22:07 Dose: 5 ml Documented By: KATERINE Hydralazine HCl (Hydralazine Hcl 10 Mg Tablet) 10 mg PO TID [facility]; Protocol Last Admin: 07/30/23 10:11 Dose: 10 mg Documented By: JUNIOR Vancomycin HCl 500 mg/ Sodium (Chloride) 110 mls @ 110 mls/hr IV MOWEFR [facility] Melatonin (Melatonin 3 Mg Tablet) 6 mg PO BEDTIME PRN PRN Reason: Insomnia Nitroglycerin (Nitroglycerin 0.4 Mg Tab.Subl) 0.4 mg SUBLINGUAL Q5M PRN PRN Reason: Chest Pain Omeprazole (Omeprazole 20 Mg Capsule.) 20 mg PO DAILY@0630 [facility] Last Admin: 07/30/23 05:13 Dose: 20 mg Documented By: KATERINE Ondansetron HCl (Ondansetron Hcl 4 Mg/2 Ml Vial) 4 mg IVPUSH Q8H PRN PRN Reason: Nausea and Vomiting Oxycodone HCl (Oxycodone Hcl Immed Release 5 Mg Tablet) 5 mg PO Q4H PRN PRN Reason: Pain, Severe (Pain Scale 7-10) Last Admin: 07/29/23 20:39 Dose: 5 mg Documented By: KATERINE Paroxetine HCl (Paroxetine Hcl 30 Mg Tablet) 30 mg PO DAILY [facility] Last Admin: 07/30/23 10:12 Dose: 30 mg Documented By: JUNIOR Pharmacy Consult (Consult Rx Vancomycin Dosing) 1 each MISCELLANE DAILY PRN PRN Reason: Consult order Sevelamer Carbonate (Sevelamer Carbonate Tablet 800 Mg Tablet) 800 mg PO TIDWM [facility] Last Admin: 07/30/23 10:12 Dose: 800 mg Documented By: JUNIOR Sodium Chloride (0.9 % Sodium Chloride Flush 3 Ml Syringe) 3 ml IVFLUSH QSHIFT [facility] Last Admin: 07/30/23 10:13 Dose: 3 ml Documented By: JUNIOR Trazodone HCl (Trazodone Hcl 50 Mg Tablet) 50 mg PO BEDTIME [facility] Last Admin: 07/29/23 20:27 Dose: 50 mg Documented By: KATERINE Labs 07/29/23 07:53 07/26/23 14:14 Microbiology Microbiology Results: Microbiology 07/25/23 22:43 Blood Culture - Preliminary Blood - Venous Enterococcus faecalis Assessment and Plan (1) ESRD (end stage renal disease) on dialysis: Status: Acute (2) Atrial fibrillation with RVR: Status: Acute (3) Pneumonia: Status: Acute Plan 73 year old white female with history of ESRD on HD MWF, PAF on Eliquis, CAD s/o NSTEMI, HFpEF, , left BERTHA, h/o DVT, asthma, interstitial nephritis and recently diagnosed LLL lung mass s/p bronchoscopy at [facility] yesterday here with wet cough, weakness and shakiness subjective fevers no chills, and ED BNP 1 268, elevated CRP sodium 131, procalcitonin 3.5 for, temp 100.1 degrees, chest x-ray showed worsening pulmonary aeration in the left lower lobe with increased hazy airspace opacities and new trace left-sided pleural fluid concerning for either subsegmental atelectasis edema or infiltrate patient admitted with a diagnosis of possible aspiration pneumonia and admitted to medical floor 1. Aspiration pneumonia//2 blood cultures positive for Enterococcus faecalis sensitive to vanco - shortness of breath and cough improved significantly - finish 5 day course of azithromycin and ceftriaxone,on IV vancomycin started on 07/26, post hemodialysis for Gram-positive bacteremia - elevated CRP due to multiple comorbidities , significantly elevated procalcitonin 3.54 on admission improved to 1.81 afebrile, stable blood pressures, WBC normalized - continue cough medication, updraft treatment and wean oxygen, recommend out of bed to chair and ambulation and possible discharge tomorrow after hemodialysis and after IV vanco dose 2. Atrial fib/flutter with RVR - EKG shows atrial flutter,stable vent rate - continue home medications Eliqus and Coreg,telemonitor, follow nina. 3. ESRD - On HD MWF, being followed by Nephrology. 4. Volume overload - no acute CHF chronically elevated BNP, underwent hemodialysis x2, appears euvolemic 5. CAD - continue ASA + Lipitor + coreg, hold hydralazine due to soft blood pressure. 6. mood disorder - continue trazodone + paroxetine 7. GERD - PPI 8. chronic hyponatremia stable 9. Enterococcus faecalis bacteremia 1/2 blood cultures positive question source UA was positive but urine culture showed no growth most likely source continue IV vancomycin , clinically improved no fevers normal WBC will discuss with ID regarding duration of antibiotic and if further testing needed 10. chronic normocytic anemia Repeat hematocrit stable in my clinical judgment patient need continued inpatient hospitalization for treatment of pneumonia with IV antibiotics and close clinical follow-up with multiple comorbidities. Quality Stroke Does the patient have a stroke diagnosis?: No VTE Prior VTE?: Yes VTE Risk Level:: Medical - moderate - high VTE Device Contraindication: N/A - Device Ordered VTE Drug Contraindication: N/A - Med Ordered
--- NOTE | 2023-07-30 14:08 | PM.PNNEP ---
Subjective Subjective Date of Service: 07/30/23 Interval history: feeling tired, otherwise feeling less shortness of breath , persistent congested cough, no fevers, no chills, oxygenation stable on 2 L, no other acute issues overnight patient mostly in bed. Physical Exam Vital Signs: Vital Signs: Last Vital Signs Temp 97.6 F 07/30/23 11:02 Pulse 86 07/30/23 11:23 Resp 18 07/30/23 11:23 BP 119/55 L 07/30/23 11:02 Pulse Ox 95 07/30/23 11:02 O2 Del Method Room Air 07/30/23 11:02 O2 Flow Rate 2 07/30/23 06:57 BMI result Body Mass Index 20.7 Const: Other: General awake alert x3,frail, no acute distress resting comfortably Neck supple no JVD. CVS regular rate rhythm, Respiratory lungs clear ,coarse breath sounds ,no wheeze. Gastrointestinal abdomen soft, non tender, bowel sounds audible, no guarding , no rigidity. Extremities no edema. Neuro non focal Skin no rash psych appropriate affect HEENT: Other: Mucous membranes look slightly dry. Eyes: Other: Pupils are round equal, conjunctivae clear Neck: Other: Supple Resp: Other: Right-sided crackles. No increased respiratory effort. Auscultation: clear to auscultation bilaterally Cardio: Other: The patient had an irregular rate and rhythm with no significant murmur Heart sounds: S1 normal heart sound present, S2 normal heart sound present and Murmur heart sound present GI: Other: Abdomen is soft nontender Skin: Other: Pale, ecchymoses on arms Neuro: Other: Awake alert appropriate. Cranial nerves intact. Moving all 4 extremities symmetrically. No focal deficit. Extrem: Other: No peripheral edema Objective Data Labs 07/29/23 07:53 07/26/23 14:14 Microbiology Microbiology Results: Microbiology 07/25/23 22:43 Blood - Venous Blood Culture - Preliminary Enterococcus faecalis 07/27/23 Unknown Urine Catheterized - Straight Catheter Urine Culture - Final No growth. 07/25/23 22:43 Blood - Venous Blood Culture - Preliminary No growth after 48 hours. Procedures Date of Service Date of Service: 07/30/23 Assessment & Plan Assessment and plan (1) ESRD (end stage renal disease) on dialysis: Status: Acute Plan [address] [address] Nephrology Progress Note Signed Patient: Maryam Ramos MR#: [id number] : 1950 Acct:[id number] Age/Sex: 73 / F Loc: .[facility] 468-[address]: Jose Whiting MD cc: Bettye Gutierrez MD~ Subjective Subjective Date of Service: 07/29/23 Interval history: feeling better than yesterday, persistent congested cough and shortness of breath with activity, no fevers, no chills tolerating diet no PND, no orthopnea, no other acute issues overnight. Physical Exam Vital Signs: Vital Signs: Last Vital Signs Temp 98.8 F 07/29/23 15:22 Pulse 71 07/29/23 16:01 Resp 16 07/29/23 16:01 BP 116/57 L 07/29/23 15:22 Pulse Ox 98 07/29/23 15:22 O2 Del Method Humidified O2 07/29/23 15:22 O2 Flow Rate 2 07/29/23 15:22 BMI result Body Mass Index 20.7 Const: Other: General awake alert x3,frail, no acute distress resting comfortably Neck supple no JVD. CVS regular rate rhythm, Respiratory lungs coarse breath sounds with few expiratory wheeze. Gastrointestinal abdomen soft, non tender, bowel sounds audible, no guarding , no rigidity. Extremities no edema. Neuro nonfocal Skin no rash psych appropriate affect HEENT: Other: Mucous membranes look slightly dry. Eyes: Other: Pupils are round equal, conjunctivae clear Neck: Other: Supple Resp: Other: Right-sided crackles. No increased respiratory effort. Auscultation: clear to auscultation bilaterally Cardio: Other: The patient had an irregular rate and rhythm with no significant murmur Heart sounds: S1 normal heart sound present, S2 normal heart sound present and Murmur heart sound present GI: Other: Abdomen is soft nontender Skin: Other: Pale, ecchymoses on arms Neuro: Other: Awake alert appropriate. Cranial nerves intact. Moving all 4 extremities symmetrically. No focal deficit. Extrem: Other: No peripheral edema Objective Data Labs 07/29/23 07:53 07/26/23 14:14 Labs: Laboratory Results - last 24 hr 07/28/23 07/29/23 19:39 07:53 WBC 10.3 RBC 2.61 L Hgb 8.0 L Hct 25.5 L MCV 97.7 MCH 30.7 MCHC 31.4 RDW 14.4 Plt Count 149 L MPV 10.8 Absolute Nucleated RBC 0.000 Nucleated RBC % (auto) 0.0 Random Vancomycin 14.9 L Microbiology Microbiology Results: Microbiology 07/25/23 22:43 Blood - Venous Blood Culture - Preliminary Gram positive cocci 07/27/23 Unknown Urine Catheterized - Straight Catheter Urine Culture - Final No growth. 07/25/23 22:43 Blood - Venous Blood Culture - Preliminary No growth after 48 hours. Procedures Date of Service Date of Service: 07/29/23 Assessment & Plan Assessment and plan (1) ESRD (end stage renal disease) on dialysis: Status: Acute (2) Atrial fibrillation with RVR: Status: Acute (3) Pneumonia: Status: Acute Plan 73 year old white female with history of ESRD on HD MWF, PAF on Eliquis, CAD s/o NSTEMI, HFpEF, , left BERTHA, h/o DVT, asthma, interstitial nephritis and recently diagnosed LLL lung mass s/p bronchoscopy at [facility] yesterday here with wet cough, weakness and shakiness subjective fevers no chills, and ED BNP 1 268, elevated CRP sodium 131, procalcitonin 3.5 for, temp 100.1 degrees, chest x-ray showed worsening pulmonary aeration in the left lower lobe with increased hazy airspace opacities and new trace left-sided pleural fluid concerning for either subsegmental atelectasis edema or infiltrate patient admitted with a diagnosis of possible aspiration pneumonia and admitted to medical floor 1. ESRD: HD M WF 2. Aspiration pneumonia- on azithromax and ceftriaxone 3. HFpEF: compensated Next HD on Monday Time Spent With Patient Time: Total time managing care of this patient today ____ minutes. Progress Note: Quality Stroke Does the patient have a stroke diagnosis?: No
[2023-07-30] MEDS: Gabapentin 300 MG CAPSULE PO (21:56)
[2023-07-30] MEDS: traZODone HCL 50 MG TABLET PO (21:56)
[2023-07-31] VITALS (8 sets, daily range): BP systolic 121–160; BP diastolic 58–70; PULSE 77–109; RESP 18–20; TEMP 36.4–36.9; O2SAT 90–100
[2023-07-31] MEDS: oxyCODONE HCl Immed Release 5 MG TABLET PO (00:33)
[2023-07-31] MEDS: guaiFEN/Codeine SF 200/20/10ML 10 ML LIQUID 5 ML PO (00:34)
[2023-07-31] MEDS: Omeprazole 20 MG CAPSULE.DR PO (07:00)
[2023-07-31] MEDS: Sevelamer Carbonate Tablet 800 MG TABLET PO ×2 (07:44→11:36)
[2023-07-31] MEDS: Aspirin 81 MG TAB.CHEW PO (07:44)
[2023-07-31] MEDS: carvediloL 6.25 MG TABLET PO ×2 (07:44→20:26)
[2023-07-31] MEDS: Atorvastatin Calcium 80 MG TABLET PO (07:44)
[2023-07-31] MEDS: PARoxetine HCL 30 MG TABLET PO (07:44)
[2023-07-31] MEDS: Apixaban 2.5 MG TABLET PO ×2 (07:44→20:26)
[2023-07-31] MEDS: guaiFENesin LA 600 MG TAB.ER.12H PO ×2 (07:45→20:26)
[2023-07-31] MEDS: Cyclobenzaprine HCl 5 MG TABLET PO ×2 (07:45→20:26)
[2023-07-31] MEDS: hydrALAZINE HCl 10 MG TABLET PO ×2 (07:45→20:26)
[2023-07-31] MEDS: Ascorbic Acid 250 MG TABLET PO (07:45)
[2023-07-31] MEDS: Ferrous Sulfate 324 MG TABLET.DR PO (07:45)
[2023-07-31] MEDS: Docusate Sodium 100 MG CAPSULE PO ×2 (07:46→20:26)
[2023-07-31] MEDS: 0.9 % Sodium Chloride Flush 3 ML SYRINGE IVFLUSH (07:47)
[2023-07-31] MEDS: Albuterol/Iprat 2.5/0.5MG 3 ML AMPUL.NEB INHALE ×4 (08:22→19:59)
[2023-07-31 10:17] LABS: Hematocrit 26.9 % (37.0-47.0); Hemoglobin 8.6 g/dl (12.0-16.0); Mean Corpuscular Hemoglobin 30.9 pg (27.0-33.0); Mean Corpuscular Volume 96.8 fL (80.0-98.0); Mean Platelet Volume 11.2 fL (9.4-12.3); Platelet Count 165 X10*3/uL (160-400); Red Blood Count 2.78 X10*6/uL (4.20-5.50); White Blood Count 12.7 X10*3/uL (4.8-10.8)
--- NOTE | 2023-07-31 11:01 | P.PNNP_ITS ---
Subjective Subjective Date of Service: 07/31/23 Interval history: feeling tired, otherwise feeling less shortness of breath , persistent congested cough, no fevers, no chills, oxygenation stable on 2 L, no other acute issues overnight patient mostly in bed. Physical Exam 2 Vital Signs: Vital Signs: Last Vital Signs Temp 97.6 F 07/31/23 07:09 Pulse 86 07/31/23 08:23 Resp 18 07/31/23 08:23 BP 160/70 H 07/31/23 07:09 Pulse Ox 90 L 07/31/23 07:09 O2 Del Method Room Air 07/31/23 07:09 O2 Flow Rate 2 07/30/23 16:00 BMI result Body Mass Index 20.7 Const: Other: General awake alert x3,frail, no acute distress resting comfortably Neck supple no JVD. CVS regular rate rhythm, Respiratory lungs clear ,coarse breath sounds ,no wheeze. Gastrointestinal abdomen soft, non tender, bowel sounds audible, no guarding , no rigidity. Extremities no edema. Neuro non focal Skin no rash psych appropriate affect HEENT: Other: Mucous membranes look slightly dry. Eyes: Other: Pupils are round equal, conjunctivae clear Neck: Other: Supple Resp: Other: Right-sided crackles. No increased respiratory effort. Auscultation: clear to auscultation bilaterally Cardio: Other: The patient had an irregular rate and rhythm with no significant murmur Heart sounds: S1 normal heart sound present, S2 normal heart sound present and Murmur heart sound present GI: Other: Abdomen is soft nontender Skin: Other: Pale, ecchymoses on arms Neuro: Other: Awake alert appropriate. Cranial nerves intact. Moving all 4 extremities symmetrically. No focal deficit. Extrem: Other: No peripheral edema Objective Data Labs 07/31/23 09:31 07/26/23 14:14 Labs: Laboratory Results - last 24 hr 07/31/23 09:31 WBC 12.7 H RBC 2.78 L Hgb 8.6 L Hct 26.9 L MCV 96.8 MCH 30.9 MCHC 32.0 RDW 14.0 Plt Count 165 MPV 11.2 Absolute Nucleated RBC 0.000 Nucleated RBC % (auto) 0.0 Microbiology Microbiology Results: Microbiology 07/25/23 22:43 Blood - Venous Blood Culture - Final No growth after 5 days. 07/25/23 22:43 Blood - Venous Blood Culture - Preliminary Enterococcus faecalis 07/27/23 Unknown Urine Catheterized - Straight Catheter Urine Culture - Final No growth. Procedures Date of Service Date of Service: 07/31/23 Assessment & Plan Assessment and plan (1) ESRD (end stage renal disease) on dialysis: Status: Acute (2) Atrial fibrillation with RVR: Status: Acute (3) Pneumonia: Status: Acute Plan 73 year old white female with history of ESRD on HD MWF, PAF on Eliquis, CAD s/o NSTEMI, HFpEF, , left BERTHA, h/o DVT, asthma, interstitial nephritis and recently diagnosed LLL lung mass s/p bronchoscopy at [facility] yesterday here with wet cough, weakness and shakiness subjective fevers no chills, and ED BNP 1 268, elevated CRP sodium 131, procalcitonin 3.5 for, temp 100.1 degrees, chest x-ray showed worsening pulmonary aeration in the left lower lobe with increased hazy airspace opacities and new trace left-sided pleural fluid concerning for either subsegmental atelectasis edema or infiltrate patient admitted with a diagnosis of possible aspiration pneumonia and admitted to medical floor 1. ESRD: HD M WF 2. Aspiration pneumonia 3. HFpEF: compensated HD today [facility] post HD F/u vanc level Will check Fe stores Time Spent With Patient Time: Total time managing care of this patient today ____ minutes. Progress Note: Quality Stroke Does the patient have a stroke diagnosis?: No
[2023-07-31 11:16] LABS: Anion Gap 16 (12-20); Blood Urea Nitrogen 35 mg/dL (9-16); Carbon Dioxide 17 mmol/L (22-29); Chloride 91 mmol/L (96-108); Creatinine Clr Calc Pharmacy 7.9; Estimated Glomerular Filt Rate 9; Glucose Random 117 mg/dL (60-115); Sodium 119 mmol/L (135-145)
[2023-07-31] MEDS: methylPREDNISolone Sod Succ 125 MG/2 ML VIAL IVPUSH (11:36)
[2023-07-31 11:42] LABS: Iron 41 mcg/dL (30-160); Percent Iron Saturation 36 % (15-50); Total Iron Binding Capacity 114 mcg/dL (228-428); Unsaturated Iron Binding 73 ug/dL
--- NOTE | 2023-07-31 11:50 | MHC.CM.PN ---
EMR reviewed and per MD rounds, pt is not medically cleared for D/C due to pneumonia requiring IV abx. CM will continue to follow.
[2023-07-31 12:35] LABS: Ferritin 2234 ng/mL (10-250)
--- NOTE | 2023-07-31 16:43 | P.PNIM_ITS ---
Subjective Subjective Date of Service: 07/31/23 Interval History: No acute issues overnight. ; this afternoon rhythm changed to atrial fibrillation. Still with significant O2 requirement Review of Systems Denies chest pain Admits to shortness of breath with minimal movement Denies nausea vomiting diarrhea Denies fever chills Physical Exam 2 Vital Signs: Vital Signs: Last Vital Signs Temp 98.2 F 07/31/23 11:25 Pulse 100 07/31/23 16:11 Resp 20 07/31/23 16:11 BP 121/58 L 07/31/23 11:25 Pulse Ox 92 07/31/23 11:25 O2 Del Method Room Air 07/31/23 11:25 O2 Flow Rate 2 07/30/23 16:00 BMI result Body Mass Index 20.7 Const: Other: Awake alert no acute distress Resp: Other: Diminished throughout with scant expiratory wheezes Cardio: Other: No S4; positive S1-S2; no S3 murmurs rubs or gallops GI: Other: Soft nontender nondistended normoactive bowel sounds Extrem: Other: No edema bilaterally Objective Data Active Medications Acetaminophen (Acetaminophen 325 Mg Tablet) 650 mg PO Q6H PRN PRN Reason: Pain, Mild (Pain Scale 1-3) Last Admin: 07/27/23 18:18 Dose: 650 mg Documented By: MERLE Al Hydroxide/Mg Hydroxide (Magnesium Hydrox/Alum Hydrox 30 Ml Oral.Susp) 30 ml PO Q4H PRN PRN Reason: Heartburn/Nausea Albuterol/Ipratropium (Albuterol/Iprat 2.5/0.5mg 3 Ml Ampul.Neb) 3 ml INHALE RQ4H WHILE AWAKE [facility] Last Admin: 07/31/23 16:11 Dose: 3 ml Documented By: SEAMUS Apixaban (Apixaban 2.5 Mg Tablet) 2.5 mg PO BID [facility] Last Admin: 07/31/23 07:44 Dose: 2.5 mg Documented By: NOLAN Ascorbic Acid (Ascorbic Acid 250 Mg Tablet) 250 mg PO DAILY [facility] Last Admin: 07/31/23 07:45 Dose: 250 mg Documented By: NOLAN Aspirin (Aspirin 81 Mg Tab.Chew) 81 mg PO DAILY [facility] Last Admin: 07/31/23 07:44 Dose: 81 mg Documented By: NOLAN Atorvastatin Calcium (Atorvastatin Calcium 80 Mg Tablet) 80 mg PO DAILY [facility] Last Admin: 07/31/23 07:44 Dose: 80 mg Documented By: NOLAN Carvedilol (Carvedilol 6.25 Mg Tablet) 6.25 mg PO BID [facility]; Protocol Last Admin: 07/31/23 07:44 Dose: 6.25 mg Documented By: NOLAN Cyclobenzaprine HCl (Cyclobenzaprine Hcl 5 Mg Tablet) 5 mg PO TID [facility] Last Admin: 07/31/23 07:45 Dose: 5 mg Documented By: NOLAN Docusate Sodium (Docusate Sodium 100 Mg Capsule) 100 mg PO BID [facility] Last Admin: 07/31/23 07:46 Dose: 100 mg Documented By: NOLAN Ferrous Sulfate (Ferrous Sulfate 324 Mg Tablet.) 324 mg PO DAILY [facility] Last Admin: 07/31/23 07:45 Dose: 324 mg Documented By: NOLAN Gabapentin (Gabapentin 300 Mg Capsule) 300 mg PO BEDTIME [facility] Last Admin: 07/30/23 21:56 Dose: 300 mg Documented By: VALENTINA Guaifenesin (Guaifenesin La 600 Mg Tab.Er.12h) 600 mg PO BID [facility] Last Admin: 07/31/23 07:45 Dose: 600 mg Documented By: NOLAN Guaifenesin/Codeine Phosphate (Guaifen/Codeine Sf 200/20/10ml 10 Ml Liquid) 5 ml PO Q6H PRN PRN Reason: Cough Last Admin: 07/31/23 00:34 Dose: 5 ml Documented By: VALENTINA Hydralazine HCl (Hydralazine Hcl 10 Mg Tablet) 10 mg PO TID [facility]; Protocol Last Admin: 07/31/23 07:45 Dose: 10 mg Documented By: NOLAN Vancomycin HCl 500 mg/ Sodium (Chloride) 110 mls @ 110 mls/hr IV MOWEFR [facility] Melatonin (Melatonin 3 Mg Tablet) 6 mg PO BEDTIME PRN PRN Reason: Insomnia Methylprednisolone Sodium Succinate (Methylprednisolone Sod Succ 125 Mg/2 Ml Vial) 60 mg IVPUSH Q6H [facility] Nitroglycerin (Nitroglycerin 0.4 Mg Tab.Subl) 0.4 mg SUBLINGUAL Q5M PRN PRN Reason: Chest Pain Omeprazole (Omeprazole 20 Mg Capsule.) 20 mg PO DAILY@0630 [facility] Last Admin: 07/31/23 07:00 Dose: 20 mg Documented By: VALENTINA Ondansetron HCl (Ondansetron Hcl 4 Mg/2 Ml Vial) 4 mg IVPUSH Q8H PRN PRN Reason: Nausea and Vomiting Paroxetine HCl (Paroxetine Hcl 30 Mg Tablet) 30 mg PO DAILY [facility] Last Admin: 07/31/23 07:44 Dose: 30 mg Documented By: NOLAN Pharmacy Consult (Consult Rx Vancomycin Dosing) 1 each MISCELLANE DAILY PRN PRN Reason: Consult order Sevelamer Carbonate (Sevelamer Carbonate Tablet 800 Mg Tablet) 800 mg PO TIDWM [facility] Last Admin: 07/31/23 11:36 Dose: 800 mg Documented By: NOLAN Sodium Chloride (0.9 % Sodium Chloride Flush 3 Ml Syringe) 3 ml IVFLUSH QSHIFT [facility] Last Admin: 07/31/23 07:47 Dose: 3 ml Documented By: NOLAN Trazodone HCl (Trazodone Hcl 50 Mg Tablet) 50 mg PO BEDTIME [facility] Last Admin: 07/30/23 21:56 Dose: 50 mg Documented By: VALENTINA Labs 07/31/23 09:31 07/31/23 09:31 Labs: Laboratory Results - last 24 hr 07/31/23 09:31 MCV 96.8 MCH 30.9 MCHC 32.0 RDW 14.0 Plt Count 165 MPV 11.2 Absolute Nucleated RBC 0.000 Nucleated RBC % (auto) 0.0 Anion Gap 16 Estim Creat Clear Calc 7.9 Estimated GFR 9 Random Glucose 117 H Calcium 8.0 L Iron 41 TIBC 114 L % Saturation 36 Unsat Iron Binding 73 Ferritin 2234 H Microbiology Microbiology Results: Microbiology 07/25/23 22:43 Blood Culture - Preliminary Blood - Venous Enterococcus faecalis 07/25/23 22:43 Blood Culture - Final Blood - Venous No growth after 5 days. Assessment and Plan (1) Pneumonia: Status: Acute (2) ESRD (end stage renal disease) on dialysis: Status: Acute (3) Anemia in CKD (chronic kidney disease): Status: Acute (4) CAD (coronary artery disease): Status: Acute Plan 73 year old white female with history of ESRD on HD MWF, PAF on Eliquis, CAD s/o NSTEMI, HFpEF, , left BERTHA, h/o DVT, asthma, interstitial nephritis and recently diagnosed LLL lung mass s/p bronchoscopy at [facility] yesterday here with wet cough, weakness and shakiness subjective fevers no chills, and ED BNP 1 268, elevated CRP sodium 131, procalcitonin 3.5 for, temp 100.1 degrees, chest x-ray showed worsening pulmonary aeration in the left lower lobe with increased hazy airspace opacities and new trace left-sided pleural fluid concerning for either subsegmental atelectasis edema or infiltrate patient admitted with a diagnosis of possible aspiration pneumonia 1. Aspiration pneumonia;1/2 blood cultures positive for Enterococcus faecalis -vancomycin(8 post HD) -titrate O2 to maintain sats greater than equal to 92% -id consult pending 2. Atrial fib/flutter -acceptable rate control -Coreg... Adjust as indicated -Eliquis. 3. ESRD - On HD MWF, being followed by Nephrology. 4. CAD -no acute issues currently -continue outpatient therapy Eliquis Full Code Patient requires ongoing hospitalization for treatment of aspiration pneumonia and bacteremia with IV antibiotics; also requiring high L flow O2 to maintain sats. Overweight specialty consult regarding bacteremia Quality Stroke Does the patient have a stroke diagnosis?: No VTE Prior VTE?: Yes VTE Risk Level:: Medical - moderate - high VTE Device Contraindication: N/A - Device Ordered VTE Drug Contraindication: N/A - Med Ordered
[2023-07-31] MEDS: methylPREDNISolone Sod Succ 125 MG/2 ML VIAL 60 MG IVPUSH (18:22)
[2023-07-31] MEDS: traZODone HCL 50 MG TABLET PO (20:26)
[2023-07-31] MEDS: Gabapentin 300 MG CAPSULE PO (20:26)
--- NOTE | 2023-07-31 21:19 | P.CNID_ITS ---
History of Present Illness Data of Consult Service Date: 07/31/23 Requesting physician: Nilo Brown Primary Care Provider: Ayah Villalta MD HPI Reason for consult: enterococcus bacteremia She presents with weakness and cough. SHe has lung mass She was found to have enterococcus bacteremia. She also has ESRD. Urine culture unremarkable Review of Systems 2 Review of Systems: Yes all other systems are reviewed and are negative [facility] Past Medical History Medical History (Updated 07/31/23 @ 21:23 by Ann Godoy MD) Enterococcus faecalis infection Non-small cell cancer of left lung CHF (congestive heart failure) CKD (chronic kidney disease) Hemodialysis patient Left femoral shaft fracture History of DVT (deep vein thrombosis) History of non-ST elevation myocardial infarction (NSTEMI) (~12/2020) Osteopenia ESRD (end stage renal disease) Interstitial lung disease Atherosclerotic cardiovascular disease Aortic stenosis CAD (coronary artery disease) PAF (paroxysmal atrial fibrillation) (~12/2020) Anemia Asthmatic bronchitis GERD (gastroesophageal reflux disease) CKD (chronic kidney disease), stage IV History of ectopic Depression Hypertension Family History Family History Father No problems noted. Mother Myocardial infarction Family history: reviewed and not pertinent Surgical History Surgical History History of lung biopsy History of coronary artery bypass graft x 3 S/P arteriovenous (AV) fistula creation History of colonoscopy History of total replacement of right shoulder joint History of rectopexy History of left knee replacement History of carpal tunnel release of both wrists Social History Social History Household Members: None Housing: Other Housing Other:: rehab Do you presently have visiting nurse or other home services: No Alcohol intake: current Alcohol intake frequency: does not drink Patient Tobacco Use Status: Never used Tobacco Tobacco use type: Cigarette Second Hand Smoke Exposure: No Advance Directives Date on File: 03/10/23 service: No Current occupational status: retired Current occupation: young,right handed Meds Allergies Allergy/AdvReac Type Severity Reaction Status Date / Time atenolol [ATENOLOL] Allergy Severe DIFF Verified 07/25/23 18:05 BREATHING, heart races. doxycycline Allergy Severe Anaphylaxis Verified 07/25/23 18:05 duloxetine Allergy Severe Anaphylaxis Verified 07/25/23 18:05 amphetamine [Adderall] AdvReac Severe shortness Verified 07/25/23 18:05 of breath dextroamphetamine [Adderall] AdvReac Severe shortness Verified 07/25/23 18:05 of breath Active Medications: Current Medications Acetaminophen (Acetaminophen 325 Mg Tablet) 650 mg PO Q6H PRN PRN Reason: Pain, Mild (Pain Scale 1-3) Last Admin: 07/27/23 18:18 Dose: 650 mg Al Hydroxide/Mg Hydroxide (Magnesium Hydrox/Alum Hydrox 30 Ml Oral.Susp) 30 ml PO Q4H PRN PRN Reason: Heartburn/Nausea Albuterol/Ipratropium (Albuterol/Iprat 2.5/0.5mg 3 Ml Ampul.Neb) 3 ml INHALE RQ4H WHILE AWAKE [facility] Last Admin: 07/31/23 19:59 Dose: 3 ml Apixaban (Apixaban 2.5 Mg Tablet) 2.5 mg PO BID [facility] Last Admin: 07/31/23 20:26 Dose: 2.5 mg Ascorbic Acid (Ascorbic Acid 250 Mg Tablet) 250 mg PO DAILY [facility] Last Admin: 07/31/23 07:45 Dose: 250 mg Aspirin (Aspirin 81 Mg Tab.Chew) 81 mg PO DAILY [facility] Last Admin: 07/31/23 07:44 Dose: 81 mg Atorvastatin Calcium (Atorvastatin Calcium 80 Mg Tablet) 80 mg PO DAILY [facility] Last Admin: 07/31/23 07:44 Dose: 80 mg Carvedilol (Carvedilol 6.25 Mg Tablet) 6.25 mg PO BID [facility]; Protocol Last Admin: 07/31/23 20:26 Dose: 6.25 mg Cyclobenzaprine HCl (Cyclobenzaprine Hcl 5 Mg Tablet) 5 mg PO TID [facility] Last Admin: 07/31/23 20:26 Dose: 5 mg Docusate Sodium (Docusate Sodium 100 Mg Capsule) 100 mg PO BID [facility] Last Admin: 07/31/23 20:26 Dose: 100 mg Ferrous Sulfate (Ferrous Sulfate 324 Mg Tablet.Dr) 324 mg PO DAILY [facility] Last Admin: 07/31/23 07:45 Dose: 324 mg Gabapentin (Gabapentin 300 Mg Capsule) 300 mg PO BEDTIME [facility] Last Admin: 07/31/23 20:26 Dose: 300 mg Guaifenesin (Guaifenesin La 600 Mg Tab.Er.12h) 600 mg PO BID [facility] Last Admin: 07/31/23 20:26 Dose: 600 mg Guaifenesin/Codeine Phosphate (Guaifen/Codeine Sf 200/20/10ml 10 Ml Liquid) 5 ml PO Q6H PRN PRN Reason: Cough Last Admin: 07/31/23 00:34 Dose: 5 ml Hydralazine HCl (Hydralazine Hcl 10 Mg Tablet) 10 mg PO TID [facility]; Protocol Last Admin: 07/31/23 20:26 Dose: 10 mg Vancomycin HCl 500 mg/ Sodium (Chloride) 110 mls @ 110 mls/hr IV MOWEFR [facility] Melatonin (Melatonin 3 Mg Tablet) 6 mg PO BEDTIME PRN PRN Reason: Insomnia Methylprednisolone Sodium Succinate (Methylprednisolone Sod Succ 125 Mg/2 Ml Vial) 60 mg IVPUSH Q6H [facility] Last Admin: 07/31/23 18:22 Dose: 60 mg Nitroglycerin (Nitroglycerin 0.4 Mg Tab.Subl) 0.4 mg SUBLINGUAL Q5M PRN PRN Reason: Chest Pain Omeprazole (Omeprazole 20 Mg Capsule.Dr) 20 mg PO DAILY@0630 [facility] Last Admin: 07/31/23 07:00 Dose: 20 mg Ondansetron HCl (Ondansetron Hcl 4 Mg/2 Ml Vial) 4 mg IVPUSH Q8H PRN PRN Reason: Nausea and Vomiting Paroxetine HCl (Paroxetine Hcl 30 Mg Tablet) 30 mg PO DAILY [facility] Last Admin: 07/31/23 07:44 Dose: 30 mg Pharmacy Consult (Consult Rx Vancomycin Dosing) 1 each MISCELLANE DAILY PRN PRN Reason: Consult order Sevelamer Carbonate (Sevelamer Carbonate Tablet 800 Mg Tablet) 800 mg PO TIDWM [facility] Last Admin: 07/31/23 17:35 Dose: Not Given Sodium Chloride (0.9 % Sodium Chloride Flush 3 Ml Syringe) 3 ml IVFLUSH QSHIFT [facility] Last Admin: 07/31/23 17:35 Dose: Not Given Trazodone HCl (Trazodone Hcl 50 Mg Tablet) 50 mg PO BEDTIME [facility] Last Admin: 07/31/23 20:26 Dose: 50 mg Home Medications Medication Instructions Recorded Confirmed Last Taken Type gabapentin 300 mg capsule 300 mg PO BEDTIME 11/09/22 07/26/23 05/03/23 History aspirin 81 mg chewable tablet 81 mg PO DAILY 03/10/23 07/26/23 05/03/23 History fluoxetine 20 mg capsule 20 mg PO DAILY 03/15/23 07/26/23 05/03/23 History sevelamer carbonate 800 mg tablet 800 mg PO TIDWM 04/20/23 07/26/23 05/03/23 History atorvastatin 80 mg tablet 80 mg PO DAILY 05/03/23 07/26/23 05/03/23 History carvedilol 6.25 mg tablet 6.25 mg PO BID 05/03/23 07/26/23 05/03/23 History oxycodone 5 mg tablet 5 mg PO Q4H PRN Pain 05/03/23 07/26/23 05/03/23 History pantoprazole 40 mg tablet,delayed 40 mg PO DAILY 05/03/23 07/26/23 05/03/23 History release trazodone 50 mg tablet 50 mg PO BEDTIME 05/03/23 07/26/23 05/02/23 History acetaminophen 325 mg tablet 650 mg PO Q4H PRN Pain 06/08/23 07/26/23 Unknown History ascorbic acid (vitamin C) 250 mg 250 mg PO DAILY 06/08/23 07/26/23 Unknown History tablet cyclobenzaprine 5 mg tablet 5 mg PO TID 06/08/23 07/26/23 Unknown History ferrous sulfate 325 mg (65 mg 325 mg PO DAILY 06/08/23 07/26/23 Unknown History iron) tablet,delayed release hydralazine 10 mg tablet 10 mg PO TID 06/08/23 07/26/23 Unknown History lisinopril 20 mg tablet 20 mg PO DAILY 06/08/23 07/26/23 Unknown History nitroglycerin 0.4 mg sublingual 0.4 mg sublingual Q5M PRN Chest 06/08/23 07/26/23 Unknown History tablet Pain ondansetron 4 mg disintegrating 4 mg PO Q6H PRN Nausea 06/08/23 07/26/23 Unknown History tablet paroxetine HCl 30 mg tablet 30 mg PO DAILY 06/08/23 07/26/23 Unknown History Physical Exam 2 Vital Signs: Vital Signs: Last Vital Signs Temp 98 F 07/31/23 19:58 Pulse 108 H 07/31/23 19:59 Resp 20 07/31/23 19:59 BP 148/70 H 07/31/23 19:58 Pulse Ox 95 07/31/23 19:58 O2 Del Method Room Air 07/31/23 19:58 O2 Flow Rate 2 07/30/23 16:00 BMI result Body Mass Index 20.7 Const: General: cooperative HEENT: Head: Yes normal to inspection Face and sinus: Yes normal facial exam Mouth: Normal oral and palatal mucosa present Teeth and gingiva: d entition normal Eyes: General: appearance normal, both eyes and all related structures P upils: Equal, round and reactive pupils present Resp: Effort & Inspection: normal respiratory effort Cardio: Rate: regular rate Rhythm: regular rhythm GI: Palpation (GI): Soft to palpation and nontender : General: Yes no CVA tenderness Back/Spine/Pelvis: Back: no CVA tenderness Skin: General skin exam: no rashes or lesions noted Neuro: General: moves all extremities Cranial nerves: Yes Equal, round and reactive pupils present Extrem: General: Yes normal to inspection Psych: Appearance: grossly normal Results Labs 07/31/23 09:31 07/31/23 09:31 Labs: Short CBC 07/31/23 Range/Units 09:31 WBC 12.7 H (4.8-10.8) X10*3/uL Hgb 8.6 L (12.0-16.0) g/dl Hct 26.9 L (37.0-47.0) % Plt Count 165 (160-400) X10*3/uL BMP 07/31/23 09:31 Sodium 119 L* Potassium 5.0 D Chloride 91 L Carbon Dioxide 17 L BUN 35 H Creatinine 4.60 H* Calcium 8.0 L Microbiology Microbiology Results: Microbiology 07/25/23 22:43 Blood - Venous Blood Culture - Preliminary Enterococcus faecalis 07/25/23 22:43 Blood - Venous Blood Culture - Final No growth after 5 days. 07/27/23 Unknown Urine Catheterized - Straight Catheter Urine Culture - Final No growth. Assessment and Plan (1) Anemia in CKD (chronic kidney disease): Status: Acute (2) ESRD (end stage renal disease) on dialysis: Status: Acute (3) Lung mass: Status: Acute (4) Enterococcus faecalis infection: Status: Acute She may have abdominal or skin source or lung source for enterococcus faecalis. Lung is less likely from aspiration pneumonia but possible. Plan Check CT abdomen and pelvis evaluate any obstructive source especially with urine being negative ?proximal UTI. Also check echo evaluate endocarditis. Four weeks Vancomycin at hemodialysis if still going ,otherwise adjust dose to renal function.
[2023-07-31 21:53] LABS: Vancomycin Random 10.5 mcg/mL (15-20)
[2023-08-01] VITALS (11 sets, daily range): BP systolic 121–185; BP diastolic 53–84; PULSE 75–88; RESP 16–18; TEMP 36.1–36.6; O2SAT 95–98
[2023-08-01] MEDS: methylPREDNISolone Sod Succ 125 MG/2 ML VIAL 60 MG IVPUSH ×4 (01:04→18:16)
[2023-08-01] MEDS: vancomycin HCL 500 MG in 0.9 % Sodium Chloride 100 ML 110 MG IV (01:05)
[2023-08-01] MEDS: 0.9 % Sodium Chloride Flush 3 ML SYRINGE IVFLUSH ×3 (01:07→16:11)
[2023-08-01] MEDS: Acetaminophen 325 MG TABLET 650 MG PO (01:12)
[2023-08-01] MEDS: Albuterol/Iprat 2.5/0.5MG 3 ML AMPUL.NEB INHALE ×4 (08:31→20:11)
[2023-08-01] MEDS: Ascorbic Acid 250 MG TABLET PO (08:50)
[2023-08-01] MEDS: PARoxetine HCL 30 MG TABLET PO (08:50)
[2023-08-01] MEDS: Ferrous Sulfate 324 MG TABLET.DR PO (08:50)
[2023-08-01] MEDS: Sevelamer Carbonate Tablet 800 MG TABLET PO ×3 (08:50→18:09)
[2023-08-01] MEDS: carvediloL 6.25 MG TABLET PO ×2 (08:50→20:59)
[2023-08-01] MEDS: Docusate Sodium 100 MG CAPSULE PO ×2 (08:50→21:01)
[2023-08-01] MEDS: guaiFENesin LA 600 MG TAB.ER.12H PO ×2 (08:50→20:58)
[2023-08-01] MEDS: Aspirin 81 MG TAB.CHEW PO (08:50)
[2023-08-01] MEDS: Apixaban 2.5 MG TABLET PO ×2 (08:51→20:59)
[2023-08-01] MEDS: Cyclobenzaprine HCl 5 MG TABLET PO ×3 (08:51→20:58)
[2023-08-01] MEDS: Atorvastatin Calcium 80 MG TABLET PO (08:51)
[2023-08-01] MEDS: hydrALAZINE HCl 10 MG TABLET PO ×3 (08:51→20:59)
[2023-08-01 11:41] LABS: MANUAL DIFF FLAG NO
--- NOTE | 2023-08-01 11:41 | PM.PNNEP ---
Subjective Subjective Date of Service: 08/01/23 Interval history: No acute issues overnight. ;c/o feeling depressed. Still with significant O2 requirement Physical Exam Vital Signs: Vital Signs: Last Vital Signs Temp 97.6 F 08/01/23 11:03 Pulse 75 08/01/23 11:36 Resp 18 08/01/23 11:36 BP 122/84 08/01/23 11:03 Pulse Ox 97 08/01/23 11:03 O2 Del Method Room Air 08/01/23 11:03 O2 Flow Rate 2 07/30/23 16:00 BMI result Body Mass Index 20.7 Const: General: cooperative HEENT: Head: Yes normal to inspection Face and sinus: Yes normal facial exam Mouth: Normal oral and palatal mucosa present Teeth and gingiva: dentition normal Eyes: General: appearance normal, both eyes and all related structures Pupils: Equal, round and reactive pupils present Resp: Effort & Inspection: normal respiratory effort Cardio: Rate: regular rate Rhythm: regular rhythm GI: Palpation (GI): Soft to palpation and nontender : General: Yes no CVA tenderness Back/Spine/Pelvis: Back: no CVA tenderness Skin: General skin exam: no rashes or lesions noted Neuro: General: moves all extremities Cranial nerves: Yes Equal, round and reactive pupils present Extrem: General: Yes normal to inspection Psych: Appearance: grossly normal Objective Data Labs 07/31/23 09:31 07/31/23 09:31 Labs: Laboratory Results - last 24 hr 07/31/23 07/31/23 09:31 21:17 Iron 41 TIBC 114 L % Saturation 36 Unsat Iron Binding 73 Ferritin 2234 H Random Vancomycin 10.5 L Microbiology Microbiology Results: Microbiology 07/25/23 22:43 Blood - Venous Blood Culture - Final Enterococcus faecalis Enterococcus faecium 07/25/23 22:43 Blood - Venous Blood Culture - Final No growth after 5 days. 07/27/23 Unknown Urine Catheterized - Straight Catheter Urine Culture - Final No growth. Procedures Date of Service Date of Service: 08/01/23 Assessment & Plan Assessment and plan (1) ESRD (end stage renal disease) on dialysis: Status: Acute (2) Atrial fibrillation with RVR: Status: Acute (3) Pneumonia: Status: Acute Plan 73 year old white female with history of ESRD on HD MWF, PAF on Eliquis, CAD s/o NSTEMI, HFpEF, , left BERTHA, h/o DVT, asthma, interstitial nephritis and recently diagnosed LLL lung mass s/p bronchoscopy at [facility] yesterday here with wet cough, weakness and shakiness subjective fevers no chills, and ED BNP 1 268, elevated CRP sodium 131, procalcitonin 3.5 for, temp 100.1 degrees, chest x-ray showed worsening pulmonary aeration in the left lower lobe with increased hazy airspace opacities and new trace left-sided pleural fluid concerning for either subsegmental atelectasis edema or infiltrate patient admitted with a diagnosis of possible aspiration pneumonia and admitted to medical floor 1. ESRD: HD M WF 2. Aspiration pneumonia 3. HFpEF: compensated Pt with severe hyponatremia - PT NEEDS TO BE ON FLUID RESTRICTION WILL SEE IF SHE NEEDS HD VAnco post HD F/u vanc level Normal Fe stores - epo 20 K x 1 dose ordered Time Spent With Patient Time: Total time managing care of this patient today ____ minutes. Progress Note: Quality Stroke Does the patient have a stroke diagnosis?: No
[2023-08-01 11:43] LABS: Basophils Percent Auto 0.1 % (0-2); Hemoglobin 8.8 g/dl (12.0-16.0); Imm Gran Abs Auto 0.16 X10*3/uL (0.00-0.03); Imm Gran Pct Auto 1.6 % (0.0-0.4); Lymphocytes Absolute Auto 0.8 X10*3/uL (1.2-4.9); Lymphocytes Percent Auto 7.8 % (20-40); Mean Corpuscular HGB Conc 31.4 g/dl (31.0-35.0); Mean Corpuscular Volume 95.6 fL (80.0-98.0); Mean Platelet Volume 10.7 fL (9.4-12.3); Monocytes Absolute Auto 0.3 X10*3/uL (0.1-1.2); Monocytes Percent Auto 3.4 % (2-11); Neutrophils Absolute Auto 8.7 x10*3/uL (2.0-8.3); Neutrophils Percent Auto 87.1 % (45-73); Platelet Count 165 X10*3/uL (160-400); Red Blood Count 2.93 X10*6/uL (4.20-5.50); Red Cell Distribution Width 13.9 % (11.0-16.0)
[2023-08-01 12:24] LABS: Alanine Aminotransferase < 5 U/L (0-31); Albumin Level 2.6 g/dL (3.5-5.0); Alkaline Phosphatase 98 U/L (39-117); Anion Gap 14 (12-20); Aspartate Amino Transferase 10 U/L (5-31); Bilirubin Total 0.2 mg/dL (0.0-1.0); Blood Urea Nitrogen 24 mg/dL (9-16); Calcium 8.4 mg/dL (8.4-10.2); Carbon Dioxide 19 mmol/L (22-29); Chloride 99 mmol/L (96-108); Creatinine Clr Calc Pharmacy 11.8; Estimated Glomerular Filt Rate 15; Glucose Fasting 163 mg/dL (60-99); Sodium 127 mmol/L (135-145); Total Protein 6.6 g/dL (6.5-8.0)
--- NOTE | 2023-08-01 15:40 | HO.PM.IMPN ---
Subjective Subjective Date of Service: 08/01/23 Interval History: Sodium low overnight likely secondary to increased intake. Repeat sodium 127. No acute issues Review of Systems Denies chest pain Admits to shortness of breath with minimal movement Denies nausea vomiting diarrhea Denies fever chills Physical Exam Vital Signs: Vital Signs: Last Vital Signs Temp 97.6 F 08/01/23 15:32 Pulse 81 08/01/23 15:34 Resp 18 08/01/23 15:34 BP 185/72 H 08/01/23 15:32 Pulse Ox 96 08/01/23 15:32 O2 Del Method Nasal Cannula 08/01/23 15:32 O2 Flow Rate 2 07/30/23 16:00 BMI result Body Mass Index 20.7 Const: Other: Awake alert no acute distress Resp: Other: Diminished throughout with scant expiratory wheezes Cardio: Other: No S4; positive S1-S2; no S3 murmurs rubs or gallops GI: Other: Soft nontender nondistended normoactive bowel sounds Extrem: Other: No edema bilaterally Objective Data Active Medications Acetaminophen (Acetaminophen 325 Mg Tablet) 650 mg PO Q6H PRN PRN Reason: Pain, Mild (Pain Scale 1-3) Last Admin: 08/01/23 01:12 Dose: 650 mg Documented By: RADHA Al Hydroxide/Mg Hydroxide (Magnesium Hydrox/Alum Hydrox 30 Ml Oral.Susp) 30 ml PO Q4H PRN PRN Reason: Heartburn/Nausea Albuterol/Ipratropium (Albuterol/Iprat 2.5/0.5mg 3 Ml Ampul.Neb) 3 ml INHALE RQ4H WHILE AWAKE [facility] Last Admin: 08/01/23 15:32 Dose: 3 ml Documented By: GEOFF Apixaban (Apixaban 2.5 Mg Tablet) 2.5 mg PO BID [facility] Last Admin: 08/01/23 08:51 Dose: 2.5 mg Documented By: ANNA Ascorbic Acid (Ascorbic Acid 250 Mg Tablet) 250 mg PO DAILY [facility] Last Admin: 08/01/23 08:50 Dose: 250 mg Documented By: ANNA Aspirin (Aspirin 81 Mg Tab.Chew) 81 mg PO DAILY [facility] Last Admin: 08/01/23 08:50 Dose: 81 mg Documented By: ANNA Atorvastatin Calcium (Atorvastatin Calcium 80 Mg Tablet) 80 mg PO DAILY [facility] Last Admin: 08/01/23 08:51 Dose: 80 mg Documented By: ANNA Carvedilol (Carvedilol 6.25 Mg Tablet) 6.25 mg PO BID [facility]; Protocol Last Admin: 08/01/23 08:50 Dose: 6.25 mg Documented By: ANNA Cyclobenzaprine HCl (Cyclobenzaprine Hcl 5 Mg Tablet) 5 mg PO TID [facility] Last Admin: 08/01/23 08:51 Dose: 5 mg Documented By: ANNA Docusate Sodium (Docusate Sodium 100 Mg Capsule) 100 mg PO BID [facility] Last Admin: 08/01/23 08:50 Dose: 100 mg Documented By: ANNA Ferrous Sulfate (Ferrous Sulfate 324 Mg Tablet.Dr) 324 mg PO DAILY [facility] Last Admin: 08/01/23 08:50 Dose: 324 mg Documented By: ANNA Gabapentin (Gabapentin 300 Mg Capsule) 300 mg PO BEDTIME [facility] Last Admin: 07/31/23 20:26 Dose: 300 mg Documented By: RADHA Guaifenesin (Guaifenesin La 600 Mg Tab.Er.12h) 600 mg PO BID [facility] Last Admin: 08/01/23 08:50 Dose: 600 mg Documented By: ANNA Guaifenesin/Codeine Phosphate (Guaifen/Codeine Sf 200/20/10ml 10 Ml Liquid) 5 ml PO Q6H PRN PRN Reason: Cough Last Admin: 07/31/23 00:34 Dose: 5 ml Documented By: VALENTINA Hydralazine HCl (Hydralazine Hcl 10 Mg Tablet) 10 mg PO TID [facility]; Protocol Last Admin: 08/01/23 08:51 Dose: 10 mg Documented By: ANNA Vancomycin HCl 500 mg/ Sodium (Chloride) 110 mls @ 110 mls/hr IV MOWEFR [facility] Melatonin (Melatonin 3 Mg Tablet) 6 mg PO BEDTIME PRN PRN Reason: Insomnia Methylprednisolone Sodium Succinate (Methylprednisolone Sod Succ 125 Mg/2 Ml Vial) 60 mg IVPUSH Q6H [facility] Last Admin: 08/01/23 12:51 Dose: 60 mg Documented By: ANNA Nitroglycerin (Nitroglycerin 0.4 Mg Tab.Subl) 0.4 mg SUBLINGUAL Q5M PRN PRN Reason: Chest Pain Omeprazole (Omeprazole 20 Mg Capsule.Dr) 20 mg PO DAILY@0630 [facility] Last Admin: 08/01/23 06:06 Dose: Not Given Documented By: RADHA Non-Admin Reason: Patient Asleep Ondansetron HCl (Ondansetron Hcl 4 Mg/2 Ml Vial) 4 mg IVPUSH Q8H PRN PRN Reason: Nausea and Vomiting Paroxetine HCl (Paroxetine Hcl 30 Mg Tablet) 30 mg PO DAILY [facility] Last Admin: 08/01/23 08:50 Dose: 30 mg Documented By: ANNA Pharmacy Consult (Consult Rx Vancomycin Dosing) 1 each MISCELLANE DAILY PRN PRN Reason: Consult order Sevelamer Carbonate (Sevelamer Carbonate Tablet 800 Mg Tablet) 800 mg PO TIDWM [facility] Last Admin: 08/01/23 12:52 Dose: 800 mg Documented By: ANNA Sodium Chloride (0.9 % Sodium Chloride Flush 3 Ml Syringe) 3 ml IVFLUSH QSHIFT [facility] Last Admin: 08/01/23 08:51 Dose: 3 ml Documented By: ANNA Trazodone HCl (Trazodone Hcl 50 Mg Tablet) 50 mg PO BEDTIME [facility] Last Admin: 07/31/23 20:26 Dose: 50 mg Documented By: RADHA Labs 08/01/23 11:29 08/01/23 11:29 Labs: Laboratory Results - last 24 hr 07/31/23 08/01/23 21:17 11:29 MCV 95.6 MCH 30.0 MCHC 31.4 RDW 13.9 Plt Count 165 MPV 10.7 Immature Gran % (Auto) 1.6 H Neut % (Auto) 87.1 H Lymph % (Auto) 7.8 L [place] % (Auto) 3.4 Eos % (Auto) 0.0 Baso % (Auto) 0.1 Lymph # (Auto) 0.8 L [place] # (Auto) 0.3 Eos # (Auto) 0.0 Baso # (Auto) 0.0 Abs Immat Gran (auto) 0.16 H Absolute Neuts (auto) 8.7 H Absolute Nucleated RBC 0.000 Nucleated RBC % (auto) 0.0 Anion Gap 14 Estim Creat Clear Calc 11.8 Estimated GFR 15 Fasting Glucose 163 H Calcium 8.4 Total Bilirubin 0.2 AST 10 ALT < 5 Alkaline Phosphatase 98 Total Protein 6.6 Albumin 2.6 L Random Vancomycin 10.5 L Microbiology Microbiology Results: Microbiology 07/25/23 22:43 Blood Culture - Final Blood - Venous Enterococcus faecalis Enterococcus faecium Assessment and Plan (1) Enterococcus faecalis infection: Status: Acute (2) ESRD (end stage renal disease) on dialysis: Status: Acute (3) Pneumonia: Status: Acute Plan 73 year old white female with history of ESRD on HD MWF, PAF on Eliquis, CAD s/o NSTEMI, HFpEF, , left BERTHA, h/o DVT, asthma, interstitial nephritis and recently diagnosed LLL lung mass s/p bronchoscopy at [facility] yesterday here with wet cough, weakness and shakiness subjective fevers no chills, and ED BNP 1 268, elevated CRP sodium 131, procalcitonin 3.5 for, temp 100.1 degrees, chest x-ray showed worsening pulmonary aeration in the left lower lobe with increased hazy airspace opacities and new trace left-sided pleural fluid concerning for either subsegmental atelectasis edema or infiltrate patient admitted with a diagnosis of possible aspiration pneumonia 1. Aspiration pneumonia;1/2 blood cultures positive for Enterococcus faecalis -vancomycin(8 post HD) -titrate O2 to maintain sats greater than equal to 92% -will order echo and abdomen pelvis CT as per ID 2. Atrial fib/flutter -acceptable rate control -Coreg... Adjust as indicated -Eliquis. 3. ESRD - On HD MWF, being followed by Nephrology. 4. CAD -no acute issues currently -continue outpatient therapy Eliquis Full Code Patient requires ongoing hospitalization for treatment of aspiration pneumonia and bacteremia with IV antibiotics; also requiring high L flow O2 to maintain sats. Overweight specialty consult regarding bacteremia Quality Stroke Does the patient have a stroke diagnosis?: No VTE Prior VTE?: Yes VTE Risk Level:: Medical - moderate - high VTE Device Contraindication: N/A - Device Ordered VTE Drug Contraindication: N/A - Med Ordered
[2023-08-01] MEDS: Gabapentin 300 MG CAPSULE PO (20:59)
[2023-08-01] MEDS: traZODone HCL 50 MG TABLET PO (20:59)
[2023-08-02] VITALS (12 sets, daily range): BP systolic 119–152; BP diastolic 38–72; PULSE 69–113; RESP 16–24; TEMP 36.6–37; O2SAT 89–98
[2023-08-02] MEDS: Acetaminophen 325 MG TABLET 650 MG PO ×2 (01:08→21:22)
[2023-08-02] MEDS: 0.9 % Sodium Chloride Flush 3 ML SYRINGE IVFLUSH ×3 (01:12→21:22)
[2023-08-02] MEDS: methylPREDNISolone Sod Succ 125 MG/2 ML VIAL 60 MG IVPUSH ×3 (01:13→18:35)
--- NOTE | 2023-08-02 07:00 | CA_ITS ---
Transthoracic Echocardiogram Patient (Last, First, Middle): Maryam Ramos A Gender: Female Date of : 1950 Age: 73 Procedure Date: 08/02/2023 Procedure Type: Transthoracic Echocardiogram Location: [facility] [place] Height: 154.94 cm Weight: 49.44 kg BSA: 1.46 m2 Heart Rate: bpm BP: 185 / 72 mmHg Svp Research And Strategic Analysis: TO Referring MD: Nilo Brown DO [employer] Education Teacher: Flavio Solis MD Symptoms: Hx NSTEMI Study Quality: Adequate ECG Rhythm: Atrial Fibrillation Conclusions: - Normal LVEF of 55-60% Findings Left Ventricle Normal left ventricular size, thickness, and systolic function. The visually estimated ejection fraction is between 55-60%. There is no evidence of regional wall motion abnormalities. Diastolic function is indeterminate on the basis of available data. Prior Study Comparison No significant change compared to prior study dated: 06/09/2023. Measurements 2D Linear Measurements IVSd: 1.16 0.6-0.9/0.6-1.0 cm LVIDd: 4.53 3.9-5.3/4.2-5.9 cm LVIDd Index: 3.10 2.4-3.2/2.2-3.1 cm/m2 LVIDs: 2.99 2.0-3.6 cm LVPWd: 1.00 0.7-1.1 cm LV Mass: 214.16 67-162/88-224 g LV Mass Index: 146.68 43-95/49-115 g/m2 LVOT Diam: 2.00 3.0+(-)1.3 cm 2D Systolic Function EF 4C: 60.50 >55% EF 2C: 57.80 >55% EF BiP: 58.40 >55% Mitral Valve MV Pk E: 1.45 MV Decel Time: 139.00 E'Lateral: 7.33 E'Medial: 5.37 E/E' Med: 27.00 E/E' Lat: 19.80 PHT: 41.00 MVA PHT: 5.37 Decel [place]: 10.45 LVOT LVOT Pk Nirmal: 1.06 LVOT Mn Nirmal: 0.72 LVOT VTI: 0.22 LVOT Pk Grad: 4.00 LVOT Mn Grad: 2.00 LVOT Diam: 2.00 LVOT Area: 3.14 Diastolic Function MV Pk E: 1.45 E'Medial: 5.37 E/E' Med: 27.00 E' Laterial: 7.33 E/E' Lat: 19.80 Updated in Other Vendor System with Status of Final Flavio Solis MD electronically signed on 08/02/2023 4:30:12 PM with status of Final
--- NOTE | 2023-08-02 09:44 | P.PNNP_ITS ---
Subjective Subjective Date of Service: 08/02/23 Interval history: Sodium low yesterday likely secondary to increased intake. Repeat sodium 127. 'Seen on Hd Physical Exam 2 Vital Signs: Vital Signs: Last Vital Signs Temp 98 F 08/02/23 03:52 Pulse 69 08/02/23 03:52 Resp 24 H 08/02/23 03:52 BP 135/59 L 08/02/23 03:52 Pulse Ox 89 L 08/02/23 03:52 O2 Del Method Nasal Cannula 08/02/23 03:52 O2 Flow Rate 2 08/02/23 03:52 BMI result Body Mass Index 20.7 Const: Other: Awake alert no acute distress Resp: Other: Diminished throughout with scant expiratory wheezes Cardio: Other: No S4; positive S1-S2; no S3 murmurs rubs or gallops GI: Other: Soft nontender nondistended normoactive bowel sounds Extrem: Other: No edema bilaterally Objective Data Labs 08/01/23 11:29 08/01/23 11:29 Labs: Laboratory Results - last 24 hr 08/01/23 11:29 WBC 10.0 RBC 2.93 L Hgb 8.8 L Hct 28.0 L MCV 95.6 MCH 30.0 MCHC 31.4 RDW 13.9 Plt Count 165 MPV 10.7 Immature Gran % (Auto) 1.6 H Neut % (Auto) 87.1 H Lymph % (Auto) 7.8 L [place] % (Auto) 3.4 Eos % (Auto) 0.0 Baso % (Auto) 0.1 Lymph # (Auto) 0.8 L [place] # (Auto) 0.3 Eos # (Auto) 0.0 Baso # (Auto) 0.0 Abs Immat Gran (auto) 0.16 H Absolute Neuts (auto) 8.7 H Absolute Nucleated RBC 0.000 Nucleated RBC % (auto) 0.0 Sodium 127 L Potassium 5.0 Chloride 99 Carbon Dioxide 19 L Anion Gap 14 BUN 24 H Creatinine 3.09 H Estim Creat Clear Calc 11.8 Estimated GFR 15 Fasting Glucose 163 H Calcium 8.4 Total Bilirubin 0.2 AST 10 ALT < 5 Alkaline Phosphatase 98 Total Protein 6.6 Albumin 2.6 L Microbiology Microbiology Results: Microbiology 07/25/23 22:43 Blood - Venous Blood Culture - Final Enterococcus faecalis Enterococcus faecium 07/25/23 22:43 Blood - Venous Blood Culture - Final No growth after 5 days. 07/27/23 Unknown Urine Catheterized - Straight Catheter Urine Culture - Final No growth. Procedures Date of Service Date of Service: 08/02/23 Assessment & Plan Assessment and plan (1) ESRD (end stage renal disease) on dialysis: Status: Acute (2) Atrial fibrillation with RVR: Status: Acute (3) Pneumonia: Status: Acute Plan 73 year old white female with history of ESRD on HD MWF, PAF on Eliquis, CAD s/o NSTEMI, HFpEF, , left BERTHA, h/o DVT, asthma, interstitial nephritis and recently diagnosed LLL lung mass s/p bronchoscopy at [facility] yesterday here with wet cough, weakness and shakiness subjective fevers no chills, and ED BNP 1 268, elevated CRP sodium 131, procalcitonin 3.5 for, temp 100.1 degrees, chest x-ray showed worsening pulmonary aeration in the left lower lobe with increased hazy airspace opacities and new trace left-sided pleural fluid concerning for either subsegmental atelectasis edema or infiltrate patient admitted with a diagnosis of possible aspiration pneumonia and admitted to medical floor 1. ESRD: HD M WF 2. Aspiration pneumonia 3. HFpEF: compensated Continue HD Pt with severe hyponatremia - PT NEEDS TO BE ON FLUID RESTRICTION VAnco post HD F/u vanc level Normal Fe stores - epo 20 K x 1 dose given yesterday Time Spent With Patient Time: Total time managing care of this patient today ____ minutes. Progress Note: Quality Stroke Does the patient have a stroke diagnosis?: No
[2023-08-02] MEDS: Sevelamer Carbonate Tablet 800 MG TABLET PO ×2 (11:13→16:35)
[2023-08-02] MEDS: Ferrous Sulfate 324 MG TABLET.DR PO (11:13)
[2023-08-02] MEDS: Docusate Sodium 100 MG CAPSULE PO ×2 (11:16→21:22)
[2023-08-02] MEDS: Cyclobenzaprine HCl 5 MG TABLET PO ×3 (11:16→21:22)
[2023-08-02] MEDS: carvediloL 6.25 MG TABLET PO ×2 (11:17→21:22)
[2023-08-02] MEDS: Apixaban 2.5 MG TABLET PO ×2 (11:17→21:22)
[2023-08-02] MEDS: Albuterol/Iprat 2.5/0.5MG 3 ML AMPUL.NEB INHALE ×3 (11:21→19:14)
[2023-08-02] MEDS: Aspirin 81 MG TAB.CHEW PO (11:26)
[2023-08-02] MEDS: Atorvastatin Calcium 80 MG TABLET PO (11:26)
[2023-08-02] MEDS: Ascorbic Acid 250 MG TABLET PO (11:26)
[2023-08-02] MEDS: guaiFENesin LA 600 MG TAB.ER.12H PO ×2 (11:26→21:22)
[2023-08-02] MEDS: PARoxetine HCL 30 MG TABLET PO (11:26)
--- NOTE | 2023-08-02 12:14 | MHC.CM.PN ---
EMR reviewed and per MD rounds, pt is not medically cleared for D/C due to continued management of pneumonia and bacteremia requiring IV abx, will also need a PT eval. This CM informed hat pt was active with [facility] prior to admission. CM will continue to follow.
[2023-08-02 12:32] LABS: Vancomycin Random 12.8 mcg/mL (15-20)
[2023-08-02 12:36] LABS: Alanine Aminotransferase 6 U/L (0-31); Albumin Level 2.8 g/dL (3.5-5.0); Alkaline Phosphatase 120 U/L (39-117); Anion Gap 15 (12-20); Aspartate Amino Transferase 13 U/L (5-31); Bilirubin Total 0.3 mg/dL (0.0-1.0); Blood Urea Nitrogen 15 mg/dL (9-16); Carbon Dioxide 21 mmol/L (22-29); Chloride 96 mmol/L (96-108); Creatinine Clr Calc Pharmacy 20.9; Estimated Glomerular Filt Rate 28; Glucose Fasting 229 mg/dL (60-99); Potassium 3.5 mmol/L (3.3-5.1); Sodium 128 mmol/L (135-145); Total Protein 6.9 g/dL (6.5-8.0)
--- NOTE | 2023-08-02 14:12 | P.PNIM_ITS ---
Subjective Subjective Date of Service: 08/02/23 Interval History: Much brighter today. Notes extreme weakness; willing to go to rehab Review of Systems Denies chest pain Admits to shortness of breath with minimal movement Denies nausea vomiting diarrhea Denies fever chills Physical Exam 2 Vital Signs: Vital Signs: Last Vital Signs Temp 97.8 F 08/02/23 10:49 Pulse 98 08/02/23 11:22 Resp 18 08/02/23 11:22 BP 131/56 L 08/02/23 10:49 Pulse Ox 97 08/02/23 10:49 O2 Del Method Room Air 08/02/23 10:49 O2 Flow Rate 2 08/02/23 03:52 BMI result Body Mass Index 20.7 Const: Other: Awake alert no acute distress Resp: Other: Diminished throughout with scant expiratory wheezes Cardio: Other: No S4; positive S1-S2; no S3 murmurs rubs or gallops GI: Other: Soft nontender nondistended normoactive bowel sounds Extrem: Other: No edema bilaterally Objective Data Active Medications Acetaminophen (Acetaminophen 325 Mg Tablet) 650 mg PO Q6H PRN PRN Reason: Pain, Mild (Pain Scale 1-3) Last Admin: 08/02/23 01:08 Dose: 650 mg Documented By: MESERET Al Hydroxide/Mg Hydroxide (Magnesium Hydrox/Alum Hydrox 30 Ml Oral.Susp) 30 ml PO Q4H PRN PRN Reason: Heartburn/Nausea Albuterol/Ipratropium (Albuterol/Iprat 2.5/0.5mg 3 Ml Ampul.Neb) 3 ml INHALE RQ4H WHILE AWAKE [facility] Last Admin: 08/02/23 11:21 Dose: 3 ml Documented By: GEOFF Apixaban (Apixaban 2.5 Mg Tablet) 2.5 mg PO BID [facility] Last Admin: 08/02/23 11:17 Dose: 2.5 mg Documented By: SEBAS Ascorbic Acid (Ascorbic Acid 250 Mg Tablet) 250 mg PO DAILY [facility] Last Admin: 08/02/23 11:26 Dose: 250 mg Documented By: SEBAS Aspirin (Aspirin 81 Mg Tab.Chew) 81 mg PO DAILY [facility] Last Admin: 08/02/23 11:26 Dose: 81 mg Documented By: SEBAS Atorvastatin Calcium (Atorvastatin Calcium 80 Mg Tablet) 80 mg PO DAILY [facility] Last Admin: 08/02/23 11:26 Dose: 80 mg Documented By: SEBAS Carvedilol (Carvedilol 6.25 Mg Tablet) 6.25 mg PO BID [facility]; Protocol Last Admin: 08/02/23 11:17 Dose: 6.25 mg Documented By: SEBAS Cyclobenzaprine HCl (Cyclobenzaprine Hcl 5 Mg Tablet) 5 mg PO TID [facility] Last Admin: 08/02/23 11:16 Dose: 5 mg Documented By: SEBAS Docusate Sodium (Docusate Sodium 100 Mg Capsule) 100 mg PO BID [facility] Last Admin: 08/02/23 11:16 Dose: 100 mg Documented By: SEBAS Ferrous Sulfate (Ferrous Sulfate 324 Mg Tablet.) 324 mg PO DAILY [facility] Last Admin: 08/02/23 11:13 Dose: 324 mg Documented By: SEBAS Gabapentin (Gabapentin 300 Mg Capsule) 300 mg PO BEDTIME [facility] Last Admin: 08/01/23 20:59 Dose: 300 mg Documented By: AGUS Guaifenesin (Guaifenesin La 600 Mg Tab.Er.12h) 600 mg PO BID [facility] Last Admin: 08/02/23 11:26 Dose: 600 mg Documented By: SEBAS Hydralazine HCl (Hydralazine Hcl 10 Mg Tablet) 10 mg PO TID [facility]; Protocol Last Admin: 08/02/23 11:10 Dose: Not Given Documented By: ALEXIS Non-Admin Reason: Off unit: Dialysis Vancomycin HCl 500 mg/ Sodium (Chloride) 110 mls @ 110 mls/hr IV MOWEFR [facility] Vancomycin HCl 500 mg/ Sodium (Chloride) 110 mls @ 110 mls/hr IV ONCE ONE Stop: 08/02/23 15:59 Melatonin (Melatonin 3 Mg Tablet) 6 mg PO BEDTIME PRN PRN Reason: Insomnia Methylprednisolone Sodium Succinate (Methylprednisolone Sod Succ 125 Mg/2 Ml Vial) 60 mg IVPUSH Q6H [facility] Last Admin: 08/02/23 11:14 Dose: 60 mg Documented By: SEBAS Nitroglycerin (Nitroglycerin 0.4 Mg Tab.Subl) 0.4 mg SUBLINGUAL Q5M PRN PRN Reason: Chest Pain Omeprazole (Omeprazole 20 Mg Capsule.) 20 mg PO DAILY@0630 [facility] Last Admin: 08/02/23 07:08 Dose: Not Given Documented By: MESERET Non-Admin Reason: Off unit: Dialysis Ondansetron HCl (Ondansetron Hcl 4 Mg/2 Ml Vial) 4 mg IVPUSH Q8H PRN PRN Reason: Nausea and Vomiting Paroxetine HCl (Paroxetine Hcl 30 Mg Tablet) 30 mg PO DAILY [facility] Last Admin: 08/02/23 11:26 Dose: 30 mg Documented By: SEBAS Pharmacy Consult (Consult Rx Vancomycin Dosing) 1 each MISCELLANE DAILY PRN PRN Reason: Consult order Sevelamer Carbonate (Sevelamer Carbonate Tablet 800 Mg Tablet) 800 mg PO TIDWM [facility] Last Admin: 08/02/23 11:29 Dose: Not Given Documented By: SEBAS Non-Admin Reason: doc under 8am dose Sodium Chloride (0.9 % Sodium Chloride Flush 3 Ml Syringe) 3 ml IVFLUSH QSHIFT [facility] Last Admin: 08/02/23 08:15 Dose: Not Given Documented By: ALEXIS Non-Admin Reason: Off unit: Dialysis Trazodone HCl (Trazodone Hcl 50 Mg Tablet) 50 mg PO BEDTIME [facility] Last Admin: 08/01/23 20:59 Dose: 50 mg Documented By: AGUS Labs 08/01/23 11:29 08/02/23 12:03 Labs: Laboratory Results - last 24 hr 08/02/23 12:03 Anion Gap 15 Estim Creat Clear Calc 20.9 Estimated GFR 28 Fasting Glucose 229 H Calcium 8.0 L Total Bilirubin 0.3 AST 13 ALT 6 Alkaline Phosphatase 120 H Total Protein 6.9 Albumin 2.8 L Random Vancomycin 12.8 L Microbiology Microbiology Results: Microbiology 07/25/23 22:43 Blood Culture - Final Blood - Venous Enterococcus faecalis Enterococcus faecium Assessment and Plan (1) Pneumonia: Status: Acute (2) ESRD (end stage renal disease) on dialysis: Status: Acute Plan 73 year old white female with history of ESRD on HD MWF, PAF on Eliquis, CAD s/o NSTEMI, HFpEF, , left BERTHA, h/o DVT, asthma, interstitial nephritis and recently diagnosed LLL lung mass s/p bronchoscopy at [facility] yesterday here with wet cough, weakness and shakiness subjective fevers no chills, and ED BNP 1 268, elevated CRP sodium 131, procalcitonin 3.5 for, temp 100.1 degrees, chest x-ray showed worsening pulmonary aeration in the left lower lobe with increased hazy airspace opacities and new trace left-sided pleural fluid concerning for either subsegmental atelectasis edema or infiltrate patient admitted with a diagnosis of possible aspiration pneumonia 1. Aspiration pneumonia;1/2 blood cultures positive for Enterococcus faecalis -vancomycin(8 post HD) -titrate O2 to maintain sats greater than equal to 92% -echo pending; abdomen pelvis CT failed to demonstrate any acute pathology 2. Atrial fib/flutter -acceptable rate control -Coreg... Adjust as indicated -Eliquis. 3. ESRD - On HD MWF, being followed by Nephrology. 4. CAD -no acute issues currently -continue outpatient therapy Eliquis Full Code Patient requires ongoing hospitalization for treatment of aspiration pneumonia and bacteremia with IV antibiotics; also requiring high L flow O2 to maintain sats. Overweight specialty consult regarding bacteremia Quality Stroke Does the patient have a stroke diagnosis?: No VTE Prior VTE?: Yes VTE Risk Level:: Medical - moderate - high VTE Device Contraindication: N/A - Device Ordered VTE Drug Contraindication: N/A - Med Ordered
--- NOTE | 2023-08-02 14:34 | P.CDIM_ITS ---
PROVIDER RESPONSE TEXT: To clarify, the appropriate diagnosis supported by the clinical indicators: Pressure (decubitus) ulcer: Stage II QUERY TEXT: PHYSICIAN'S DOCUMENTATION REQUEST Date of Query: 08/01/2023 08:39 AM EST Patient Name: Maryam Ramos Admit Date: 07/26/2023 Dear Nilo Brown, A review of the medical record indicates additional documentation may be needed. Please review below and update the documentation accordingly. Clinical Indicators: Per Nursing Pressure Injury Assessment 07/29/23: stage 2 coccyx, Foam dressing Based on the above, could you please provide further information regarding the ulcer/wound: Pressure (decubitus) ulcer Please include the stage of the ulcer and specify the location and laterality of the ulcer/wound Traumatic wound Please specify the location and laterality of the ulcer/wound Other (explain) Clinically unable to determine (explain) Thank you, Destiny Murcia RN Use of terms such as suspected, likely, concern for, or probable (associated with a specific diagnosi s that is being evaluated, monitored, or treated as if it exists) are acceptable and can be coded in the inpatient se tting, when documented at the time of discharge. Please use your independent medical judgment in providing your response. THIS QUERY IS PART OF THE PERMANENT MEDICAL RECORD
[2023-08-02] MEDS: hydrALAZINE HCl 10 MG TABLET PO ×2 (16:35→21:22)
[2023-08-02] MEDS: vancomycin HCL 500 MG in 0.9 % Sodium Chloride 100 ML 110 MG IV (16:35)
[2023-08-02] MEDS: Gabapentin 300 MG CAPSULE PO (21:22)
[2023-08-02] MEDS: traZODone HCL 50 MG TABLET PO (21:22)
[2023-08-02] MEDS: Melatonin 3 MG TABLET 6 MG PO (22:58)
[2023-08-03] VITALS (10 sets, daily range): BP systolic 112–188; BP diastolic 46–78; PULSE 74–89; RESP 15–20; TEMP 36–36.5; O2SAT 95–99
[2023-08-03] MEDS: methylPREDNISolone Sod Succ 125 MG/2 ML VIAL 60 MG IVPUSH ×3 (00:38→12:13)
[2023-08-03] MEDS: Omeprazole 20 MG CAPSULE.DR PO (05:37)
[2023-08-03] MEDS: Albuterol/Iprat 2.5/0.5MG 3 ML AMPUL.NEB INHALE ×2 (08:33→11:19)
[2023-08-03] MEDS: Docusate Sodium 100 MG CAPSULE PO ×2 (08:51→21:08)
[2023-08-03] MEDS: Atorvastatin Calcium 80 MG TABLET PO (08:51)
[2023-08-03] MEDS: hydrALAZINE HCl 10 MG TABLET PO ×3 (08:51→21:08)
[2023-08-03] MEDS: Ascorbic Acid 250 MG TABLET PO (08:51)
[2023-08-03] MEDS: 0.9 % Sodium Chloride Flush 3 ML SYRINGE IVFLUSH ×2 (08:51→16:16)
[2023-08-03] MEDS: PARoxetine HCL 30 MG TABLET PO (08:51)
[2023-08-03] MEDS: Sevelamer Carbonate Tablet 800 MG TABLET PO ×3 (08:51→16:14)
[2023-08-03] MEDS: Cyclobenzaprine HCl 5 MG TABLET PO ×3 (08:52→21:09)
[2023-08-03] MEDS: Apixaban 2.5 MG TABLET PO ×2 (08:52→21:08)
[2023-08-03] MEDS: carvediloL 6.25 MG TABLET PO ×2 (08:52→21:08)
[2023-08-03] MEDS: Aspirin 81 MG TAB.CHEW PO (08:52)
[2023-08-03] MEDS: guaiFENesin LA 600 MG TAB.ER.12H PO ×2 (08:55→21:08)
--- NOTE | 2023-08-03 10:03 | PM.PNNEP ---
Subjective Subjective Date of Service: 08/12/23 Interval history: Last NA 127 SOB better willing to go to rehab Physical Exam Vital Signs: Vital Signs: Last Vital Signs Temp 97.7 F 08/03/23 07:04 Pulse 80 08/03/23 08:35 Resp 18 08/03/23 08:35 BP 131/48 L 08/03/23 07:04 Pulse Ox 96 08/03/23 07:04 O2 Del Method Room Air 08/03/23 07:04 O2 Flow Rate 2 08/02/23 03:52 BMI result Body Mass Index 20.7 Const: Other: Awake alert no acute distress Resp: Other: Diminished throughout with scant expiratory wheezes Cardio: Other: No S4; positive S1-S2; no S3 murmurs rubs or gallops GI: Other: Soft nontender nondistended normoactive bowel sounds Extrem: Other: No edema bilaterally Objective Data Labs 08/03/23 10:41 08/05/23 07:15 Labs: Laboratory Results - last 24 hr 08/02/23 12:03 Sodium 128 L Potassium 3.5 D Chloride 96 Carbon Dioxide 21 L Anion Gap 15 BUN 15 Creatinine 1.75 H Estim Creat Clear Calc 20.9 Estimated GFR 28 Fasting Glucose 229 H Calcium 8.0 L Total Bilirubin 0.3 AST 13 ALT 6 Alkaline Phosphatase 120 H Total Protein 6.9 Albumin 2.8 L Random Vancomycin 12.8 L Microbiology Microbiology Results: Microbiology 07/25/23 22:43 Blood - Venous Blood Culture - Final Enterococcus faecalis Enterococcus faecium 07/25/23 22:43 Blood - Venous Blood Culture - Final No growth after 5 days. 07/27/23 Unknown Urine Catheterized - Straight Catheter Urine Culture - Final No growth. Procedures Date of Service Date of Service: 08/12/23 Assessment & Plan Assessment and plan (1) ESRD (end stage renal disease) on dialysis: Status: Acute (2) Atrial fibrillation with RVR: Status: Acute (3) Pneumonia: Status: Acute Plan 73 year old white female with history of ESRD on HD MWF, PAF on Eliquis, CAD s/o NSTEMI, HFpEF, , left BERTHA, h/o DVT, asthma, interstitial nephritis and recently diagnosed LLL lung mass s/p bronchoscopy at [facility] yesterday here with wet cough, weakness and shakiness subjective fevers no chills, and ED BNP 1 268, elevated CRP sodium 131, procalcitonin 3.5 for, temp 100.1 degrees, chest x-ray showed worsening pulmonary aeration in the left lower lobe with increased hazy airspace opacities and new trace left-sided pleural fluid concerning for either subsegmental atelectasis edema or infiltrate patient admitted with a diagnosis of possible aspiration pneumonia and admitted to medical floor 1. ESRD: HD M WF 2. Aspiration pneumonia 3. HFpEF: compensated Continue HD MWF Improved hyponatremia - PT NEEDS TO BE ON FLUID RESTRICTION VAnco post HD F/u vanc level Normal Fe stores - epo 20 K x 1 dose given this week Time Spent With Patient Time: Total time managing care of this patient today ____ minutes. Progress Note: Quality Stroke Does the patient have a stroke diagnosis?: No
[2023-08-03 11:29] LABS: MANUAL DIFF FLAG NO
[2023-08-03 11:36] LABS: Basophils Percent Auto 0.1 % (0-2); Hematocrit 27.5 % (37.0-47.0); Hemoglobin 8.7 g/dl (12.0-16.0); Imm Gran Abs Auto 0.14 X10*3/uL (0.00-0.03); Imm Gran Pct Auto 1.7 % (0.0-0.4); Lymphocytes Absolute Auto 0.7 X10*3/uL (1.2-4.9); Lymphocytes Percent Auto 8.8 % (20-40); Mean Corpuscular HGB Conc 31.6 g/dl (31.0-35.0); Mean Corpuscular Hemoglobin 30.4 pg (27.0-33.0); Mean Corpuscular Volume 96.2 fL (80.0-98.0); Mean Platelet Volume 10.8 fL (9.4-12.3); Monocytes Absolute Auto 0.4 X10*3/uL (0.1-1.2); Monocytes Percent Auto 5.2 % (2-11); Neutrophils Percent Auto 84.2 % (45-73); Platelet Count 174 X10*3/uL (160-400); Red Blood Count 2.86 X10*6/uL (4.20-5.50); White Blood Count 8.3 X10*3/uL (4.8-10.8)
[2023-08-03 12:27] LABS: Alanine Aminotransferase 6 U/L (0-31); Albumin Level 2.8 g/dL (3.5-5.0); Alkaline Phosphatase 104 U/L (39-117); Anion Gap 16 (12-20); Aspartate Amino Transferase 10 U/L (5-31); Bilirubin Total 0.3 mg/dL (0.0-1.0); Blood Urea Nitrogen 33 mg/dL (9-16); Carbon Dioxide 19 mmol/L (22-29); Chloride 94 mmol/L (96-108); Creatinine Clr Calc Pharmacy 12.4; Estimated Glomerular Filt Rate 16; Glucose Fasting 205 mg/dL (60-99); Potassium 4.2 mmol/L (3.3-5.1); Sodium 125 mmol/L (135-145); Total Protein 6.5 g/dL (6.5-8.0)
--- NOTE | 2023-08-03 13:42 | P.PNIM_ITS ---
Subjective Subjective Date of Service: 08/03/23 Interval History: minimal cough no fever Review of Systems Review of Systems: Yes all other systems are reviewed and are negative Physical Exam 2 Vital Signs: Vital Signs: Last Vital Signs Temp 97.6 F 08/03/23 11:11 Pulse 74 08/03/23 11:19 Resp 18 08/03/23 11:19 BP 112/46 L 08/03/23 11:11 Pulse Ox 97 08/03/23 11:11 O2 Del Method Room Air 08/03/23 11:11 O2 Flow Rate 2 08/02/23 03:52 BMI result Body Mass Index 20.7 Gen: in no acute distress HEENT: sclera anicteric, moist mucus membranes Neck: supple, LIJ tunneled HD catheter Lungs: clear to auscultation bilaterally Heart: regular rate and rhythm, no murmurs Abd: soft, non-tender, non-distended Ext: no edema Skin: warm/well-perfused Neuro: alert and oriented x3, no focal findings Psych: appropriate affect Objective Data Active Medications Acetaminophen (Acetaminophen 325 Mg Tablet) 650 mg PO Q6H PRN PRN Reason: Pain, Mild (Pain Scale 1-3) Last Admin: 08/02/23 21:22 Dose: 650 mg Documented By: ABDIRASHID Al Hydroxide/Mg Hydroxide (Magnesium Hydrox/Alum Hydrox 30 Ml Oral.Susp) 30 ml PO Q4H PRN PRN Reason: Heartburn/Nausea Albuterol/Ipratropium (Albuterol/Iprat 2.5/0.5mg 3 Ml Ampul.Neb) 3 ml INHALE RQ4H WHILE AWAKE [facility] Last Admin: 08/03/23 11:19 Dose: 3 ml Documented By: SERGEY Apixaban (Apixaban 2.5 Mg Tablet) 2.5 mg PO BID [facility] Last Admin: 08/03/23 08:52 Dose: 2.5 mg Documented By: AVTAR Ascorbic Acid (Ascorbic Acid 250 Mg Tablet) 250 mg PO DAILY [facility] Last Admin: 08/03/23 08:51 Dose: 250 mg Documented By: AVTAR Aspirin (Aspirin 81 Mg Tab.Chew) 81 mg PO DAILY [facility] Last Admin: 08/03/23 08:52 Dose: 81 mg Documented By: ATVAR Atorvastatin Calcium (Atorvastatin Calcium 80 Mg Tablet) 80 mg PO DAILY [facility] Last Admin: 08/03/23 08:51 Dose: 80 mg Documented By: AVTAR Carvedilol (Carvedilol 6.25 Mg Tablet) 6.25 mg PO BID [facility]; Protocol Last Admin: 08/03/23 08:52 Dose: 6.25 mg Documented By: AVTAR Cyclobenzaprine HCl (Cyclobenzaprine Hcl 5 Mg Tablet) 5 mg PO TID [facility] Last Admin: 08/03/23 08:52 Dose: 5 mg Documented By: AVTAR Docusate Sodium (Docusate Sodium 100 Mg Capsule) 100 mg PO BID [facility] Last Admin: 08/03/23 08:51 Dose: 100 mg Documented By: AVTAR Ferrous Sulfate (Ferrous Sulfate 324 Mg Tablet.) 324 mg PO DAILY [facility] Last Admin: 08/03/23 08:51 Dose: 324 mg Documented By: AVTAR Gabapentin (Gabapentin 300 Mg Capsule) 300 mg PO BEDTIME [facility] Last Admin: 08/02/23 21:22 Dose: 300 mg Documented By: ABDIRASHID Guaifenesin (Guaifenesin La 600 Mg Tab.Er.12h) 600 mg PO BID [facility] Last Admin: 08/03/23 08:55 Dose: 600 mg Documented By: AVTAR Hydralazine HCl (Hydralazine Hcl 10 Mg Tablet) 10 mg PO TID [facility]; Protocol Last Admin: 08/03/23 08:51 Dose: 10 mg Documented By: AVTAR Vancomycin HCl 500 mg/ Sodium (Chloride) 110 mls @ 110 mls/hr IV MOWEFR [facility] Melatonin (Melatonin 3 Mg Tablet) 6 mg PO BEDTIME PRN PRN Reason: Insomnia Last Admin: 08/02/23 22:58 Dose: 6 mg Documented By: AWILDA Methylprednisolone Sodium Succinate (Methylprednisolone Sod Succ 125 Mg/2 Ml Vial) 60 mg IVPUSH Q6H [facility] Last Admin: 08/03/23 12:13 Dose: 60 mg Documented By: AVTAR Nitroglycerin (Nitroglycerin 0.4 Mg Tab.Subl) 0.4 mg SUBLINGUAL Q5M PRN PRN Reason: Chest Pain Omeprazole (Omeprazole 20 Mg Capsule.) 20 mg PO DAILY@0630 [facility] Last Admin: 08/03/23 05:37 Dose: 20 mg Documented By: AWILDA Ondansetron HCl (Ondansetron Hcl 4 Mg/2 Ml Vial) 4 mg IVPUSH Q8H PRN PRN Reason: Nausea and Vomiting Paroxetine HCl (Paroxetine Hcl 30 Mg Tablet) 30 mg PO DAILY [facility] Last Admin: 08/03/23 08:51 Dose: 30 mg Documented By: AVTAR Pharmacy Consult (Consult Rx Vancomycin Dosing) 1 each MISCELLANE DAILY PRN PRN Reason: Consult order Sevelamer Carbonate (Sevelamer Carbonate Tablet 800 Mg Tablet) 800 mg PO TIDWM [facility] Last Admin: 08/03/23 12:13 Dose: 800 mg Documented By: AVTAR Sodium Chloride (0.9 % Sodium Chloride Flush 3 Ml Syringe) 3 ml IVFLUSH QSHIFT [facility] Last Admin: 08/03/23 08:51 Dose: 3 ml Documented By: AVTAR Trazodone HCl (Trazodone Hcl 50 Mg Tablet) 50 mg PO BEDTIME [facility] Last Admin: 08/02/23 21:22 Dose: 50 mg Documented By: ABDIRASHID Labs 08/03/23 10:41 08/03/23 10:41 Labs: Laboratory Results - last 24 hr 08/03/23 10:41 MCV 96.2 MCH 30.4 MCHC 31.6 RDW 14.0 Plt Count 174 MPV 10.8 Immature Gran % (Auto) 1.7 H Neut % (Auto) 84.2 H Lymph % (Auto) 8.8 L [place] % (Auto) 5.2 Eos % (Auto) 0.0 Baso % (Auto) 0.1 Lymph # (Auto) 0.7 L [place] # (Auto) 0.4 Eos # (Auto) 0.0 Baso # (Auto) 0.0 Abs Immat Gran (auto) 0.14 H Absolute Neuts (auto) 7.0 Absolute Nucleated RBC 0.000 Nucleated RBC % (auto) 0.0 Anion Gap 16 Estim Creat Clear Calc 12.4 Estimated GFR 16 Fasting Glucose 205 H Calcium 8.0 L Total Bilirubin 0.3 AST 10 ALT 6 Alkaline Phosphatase 104 Total Protein 6.5 Albumin 2.8 L Assessment and Plan (1) Pneumonia: Status: Acute (2) ESRD (end stage renal disease) on dialysis: Status: Acute Plan d10 73yo F with ESRD on HD MWF, pAF on apixaban, CAD s/p NSTEMI, HFpEF, , left BERTHA, hx DVT, asthma, interstitial nephritis, recently diagnosed lung CA presenting with cough/weakness/subjective fevers admitted for PNA, found to have Enterococcus faecalis + faecium bacteremia Enterococcal bacteremia/pnemonia - finished 5d course of ceftriaxone + azithromycin, now on vancomycin 500 mg IV with HD, 4 wk from 1st negative culture. Will draw surveillance cultures today as they have not yet been documented. TTE without vegetations. ?chronic lung disease with ?Acute exac - was started on methylprednisolone 60 mg q6h 07/31, unclear indication, will start to wean-> 40 mg q12h today, make nebs prn paroxysmal atrial fibrllation/flutter - continue carvedilol for rate control, apixaban for anticoagulation ESRD on HD - continue HD MWF, sevelamer anemia of ESRD - Hb stable HTN - hydralazine, carvedilol hypoNa - will start fluid restriction as previously recommended by Nephrology, monitor BMP CAD - ASA, atorvastatin, carvedilol mood disorder - paroxetine, trazodone VTE ppx - apixaban dispo - anticipate home with VNA Sat if Bcx neg In my clinical judgment, the patient requires continued inpatient hospitalization for the following reasons: IV ABX, hypoNa Total time managing care of this patient today: 35 minutes. Quality Stroke Does the patient have a stroke diagnosis?: No VTE Prior VTE?: Yes VTE Risk Level:: Medical - moderate - high VTE Device Contraindication: N/A - Device Ordered VTE Drug Contraindication: N/A - Med Ordered
[2023-08-03] MEDS: Gabapentin 300 MG CAPSULE PO (21:08)
[2023-08-03] MEDS: Acetaminophen 325 MG TABLET 650 MG PO (21:09)
[2023-08-03] MEDS: traZODone HCL 50 MG TABLET PO (21:12)
[2023-08-04 02:35] VITALS: BP 136/62; PULSE 74; RESP 19; TEMP 36.7; O2SAT 95
[2023-08-04] MEDS: methylPREDNISolone Sod Succ 125 MG/2 ML VIAL 40 MG IVPUSH (02:55)
[2023-08-04 08:00] VITALS: BP 126/49; PULSE 80; RESP 18; TEMP 36.3; O2SAT 96
[2023-08-04] MEDS: Cyclobenzaprine HCl 5 MG TABLET PO ×3 (08:43→20:18)
[2023-08-04] MEDS: Sevelamer Carbonate Tablet 800 MG TABLET PO ×2 (08:43→16:13)
[2023-08-04] MEDS: Ascorbic Acid 250 MG TABLET PO (08:43)
[2023-08-04] MEDS: guaiFENesin LA 600 MG TAB.ER.12H PO ×2 (08:44→20:19)
[2023-08-04] MEDS: Apixaban 2.5 MG TABLET PO ×2 (08:44→20:18)
[2023-08-04] MEDS: Docusate Sodium 100 MG CAPSULE PO ×2 (08:44→20:18)
[2023-08-04] MEDS: Aspirin 81 MG TAB.CHEW PO (08:44)
[2023-08-04] MEDS: Atorvastatin Calcium 80 MG TABLET PO (08:44)
[2023-08-04] MEDS: PARoxetine HCL 30 MG TABLET PO (08:45)
[2023-08-04] MEDS: Ferrous Sulfate 324 MG TABLET.DR PO (08:46)
[2023-08-04 09:01] VITALS: BP 126/49; PULSE 80; O2SAT 96
--- NOTE | 2023-08-04 13:22 | P.PNIM_ITS ---
Subjective Subjective Date of Service: 08/04/23 Interval History: feeling better, no cough Review of Systems Review of Systems: Yes all other systems are reviewed and are negative Physical Exam 2 Vital Signs: Vital Signs: Last Vital Signs Temp 97.3 F 08/04/23 08:00 Pulse 80 08/04/23 09:01 Resp 18 08/04/23 08:00 BP 126/49 L 08/04/23 09:01 Pulse Ox 96 08/04/23 09:01 O2 Del Method Room Air 08/04/23 08:00 O2 Flow Rate 2 08/02/23 03:52 BMI result Body Mass Index 20.7 Gen: in no acute distress HEENT: sclera anicteric, moist mucus membranes Neck: supple, LIJ tunneled HD catheter Lungs: clear to auscultation bilaterally Heart: regular rate and rhythm, no murmurs Abd: soft, non-tender, non-distended Ext: no edema Skin: warm/well-perfused Neuro: alert and oriented x3, no focal findings Psych: appropriate affect Objective Data Active Medications Acetaminophen (Acetaminophen 325 Mg Tablet) 650 mg PO Q6H PRN PRN Reason: Pain, Mild (Pain Scale 1-3) Last Admin: 08/03/23 21:09 Dose: 650 mg Documented By: AGUS Al Hydroxide/Mg Hydroxide (Magnesium Hydrox/Alum Hydrox 30 Ml Oral.Susp) 30 ml PO Q4H PRN PRN Reason: Heartburn/Nausea Albuterol/Ipratropium (Albuterol/Iprat 2.5/0.5mg 3 Ml Ampul.Neb) 3 ml INHALE RQ4H WHILE AWAKE PRN PRN Reason: sob/whz Apixaban (Apixaban 2.5 Mg Tablet) 2.5 mg PO BID [facility] Last Admin: 08/04/23 08:44 Dose: 2.5 mg Documented By: PAULA Ascorbic Acid (Ascorbic Acid 250 Mg Tablet) 250 mg PO DAILY [facility] Last Admin: 08/04/23 08:43 Dose: 250 mg Documented By: PAULA Aspirin (Aspirin 81 Mg Tab.Chew) 81 mg PO DAILY [facility] Last Admin: 08/04/23 08:44 Dose: 81 mg Documented By: PAULA Atorvastatin Calcium (Atorvastatin Calcium 80 Mg Tablet) 80 mg PO DAILY [facility] Last Admin: 08/04/23 08:44 Dose: 80 mg Documented By: PAULA Carvedilol (Carvedilol 6.25 Mg Tablet) 6.25 mg PO BID [facility]; Protocol Last Admin: 08/04/23 08:26 Dose: Not Given Documented By: PAULA Non-Admin Reason: dialysis Cyclobenzaprine HCl (Cyclobenzaprine Hcl 5 Mg Tablet) 5 mg PO TID [facility] Last Admin: 08/04/23 08:43 Dose: 5 mg Documented By: PAULA Docusate Sodium (Docusate Sodium 100 Mg Capsule) 100 mg PO BID [facility] Last Admin: 08/04/23 08:44 Dose: 100 mg Documented By: PAULA Ferrous Sulfate (Ferrous Sulfate 324 Mg Tablet.) 324 mg PO DAILY [facility] Last Admin: 08/04/23 08:46 Dose: 324 mg Documented By: PAULA Gabapentin (Gabapentin 300 Mg Capsule) 300 mg PO BEDTIME [facility] Last Admin: 08/03/23 21:08 Dose: 300 mg Documented By: AGUS Guaifenesin (Guaifenesin La 600 Mg Tab.Er.12h) 600 mg PO BID [facility] Last Admin: 08/04/23 08:44 Dose: 600 mg Documented By: PAULA Hydralazine HCl (Hydralazine Hcl 10 Mg Tablet) 10 mg PO TID [facility]; Protocol Last Admin: 08/04/23 08:27 Dose: Not Given Documented By: PAULA Non-Admin Reason: dialysis Vancomycin HCl 500 mg/ Sodium (Chloride) 110 mls @ 110 mls/hr IV MOWEFR [facility] Melatonin (Melatonin 3 Mg Tablet) 6 mg PO BEDTIME PRN PRN Reason: Insomnia Last Admin: 08/02/23 22:58 Dose: 6 mg Documented By: AWILDA Methylprednisolone Sodium Succinate (Methylprednisolone Sod Succ 125 Mg/2 Ml Vial) 40 mg IVPUSH Q12H [facility] Last Admin: 08/04/23 02:55 Dose: 40 mg Documented By: ALYSHA Nitroglycerin (Nitroglycerin 0.4 Mg Tab.Subl) 0.4 mg SUBLINGUAL Q5M PRN PRN Reason: Chest Pain Omeprazole (Omeprazole 20 Mg Capsule.) 20 mg PO DAILY@0630 [facility] Last Admin: 08/04/23 06:20 Dose: Not Given Documented By: ALYSHA Non-Admin Reason: Nausea Ondansetron HCl (Ondansetron Hcl 4 Mg/2 Ml Vial) 4 mg IVPUSH Q8H PRN PRN Reason: Nausea and Vomiting Paroxetine HCl (Paroxetine Hcl 30 Mg Tablet) 30 mg PO DAILY [facility] Last Admin: 08/04/23 08:45 Dose: 30 mg Documented By: PAULA Pharmacy Consult (Consult Rx Vancomycin Dosing) 1 each MISCELLANE DAILY PRN PRN Reason: Consult order Sevelamer Carbonate (Sevelamer Carbonate Tablet 800 Mg Tablet) 800 mg PO TIDWM [facility] Last Admin: 08/04/23 11:33 Dose: Not Given Documented By: PAULA Non-Admin Reason: Off unit: Dialysis Sodium Chloride (0.9 % Sodium Chloride Flush 3 Ml Syringe) 3 ml IVFLUSH QSHIFT [facility] Last Admin: 08/04/23 11:35 Dose: Not Given Documented By: PAULA Non-Admin Reason: See Note Trazodone HCl (Trazodone Hcl 50 Mg Tablet) 50 mg PO BEDTIME [facility] Last Admin: 08/03/23 21:12 Dose: 50 mg Documented By: AGUS Labs 08/03/23 10:41 08/03/23 10:41 Assessment and Plan (1) Pneumonia: Status: Acute (2) ESRD (end stage renal disease) on dialysis: Status: Acute Plan d11 73yo F with ESRD on HD MWF, pAF on apixaban, CAD s/p NSTEMI, HFpEF, , left BERTHA, hx DVT, asthma, interstitial nephritis, recently diagnosed lung CA presenting with cough/weakness/subjective fevers admitted for PNA, found to have Enterococcus faecalis + faecium bacteremia Enterococcal bacteremia/pnemonia - finished 5d course of ceftriaxone + azithromycin, now on vancomycin 500 mg IV with HD, 4 wk from 1st negative culture. Surveillance culture from 08/03 pending and if negative 08/05 will d/c and start counting 4 wk from 08/03. TTE without vegetations. ?chronic lung disease with ?acute exac - was started on methylprednisolone 60 mg q6h 07/31, unclear indication, continue to wean, make nebs prn paroxysmal atrial fibrllation/flutter - continue carvedilol for rate control, apixaban for anticoagulation ESRD on HD - continue HD MWF, sevelamer anemia of ESRD - Hb stable HTN - hydralazine, carvedilol hypoNa - fluid restrict to 1.2 L, monitor BMP CAD - ASA, atorvastatin, carvedilol mood disorder - paroxetine, trazodone VTE ppx - apixaban dispo - anticipate home with VNA tomorrow if BCx negative In my clinical judgment, the patient requires continued inpatient hospitalization for the following reasons: IV ABX, hypoNa Total time managing care of this patient today: 35 minutes. Quality Stroke Does the patient have a stroke diagnosis?: No VTE Prior VTE?: Yes VTE Risk Level:: Medical - moderate - high VTE Device Contraindication: N/A - Device Ordered VTE Drug Contraindication: N/A - Med Ordered
--- NOTE | 2023-08-04 14:52 | MHC.CM.PN ---
Addendum entered by Susana Martin 08/04/23 16:13: This CM called [facility] to inform them she will need vancomycin via IV x 4 weeks while at HD. This CM spoke to the pts nurse there and she said they are not open on [place] on Monday, and are suggesting the daughter or son bring her for HD on Monday. HD nurse states she called and spoke with the pts daughter about this, but asked us to remind her of this. This CM called pts daughter and unable to get through to her. This CM called pts son/HCP Angus and left a voicemail. [facility] nurse states we can fax D/C summary to them at [phone]. Transport home will be via BLS. Original Note: EMR reviewed and per MD rounds, pt is not medically cleared for D/C at this time, anticipating D/C tomorrow 08/05 home with services and vanco @ HD. CM will continue to follow.
[2023-08-04] MEDS: hydrALAZINE HCl 10 MG TABLET PO ×2 (14:57→20:18)
[2023-08-04 15:29] VITALS: BP 145/65; PULSE 77; RESP 15; TEMP 36.6; O2SAT 97
--- NOTE | 2023-08-04 15:44 | P.PNNP_ITS ---
Subjective Subjective Date of Service: 08/04/23 Interval history: feeling better, no cough Physical Exam 2 Vital Signs: Vital Signs: Last Vital Signs Temp 97.9 F 08/04/23 15:29 Pulse 77 08/04/23 15:29 Resp 15 08/04/23 15:29 BP 145/65 H 08/04/23 15:29 Pulse Ox 97 08/04/23 15:29 O2 Del Method Room Air 08/04/23 15:29 O2 Flow Rate 2 08/02/23 03:52 BMI result Body Mass Index 20.7 cvs: s1s2 Rs; cta ABd; soft Objective Data Labs 08/03/23 10:41 08/03/23 10:41 Microbiology Microbiology Results: Microbiology 08/03/23 10:45 Blood - Venous Blood Culture - Preliminary No growth after 24 hours. 08/03/23 10:41 Blood - Venous Blood Culture - Preliminary No growth after 24 hours. 07/25/23 22:43 Blood - Venous Blood Culture - Final Enterococcus faecalis Enterococcus faecium 07/25/23 22:43 Blood - Venous Blood Culture - Final No growth after 5 days. 07/27/23 Unknown Urine Catheterized - Straight Catheter Urine Culture - Final No growth. Procedures Date of Service Date of Service: 08/04/23 Assessment & Plan Assessment and plan (1) ESRD (end stage renal disease) on dialysis: Status: Acute (2) Atrial fibrillation with RVR: Status: Acute (3) Pneumonia: Status: Acute Plan 73 year old white female with history of ESRD on HD MWF, PAF on Eliquis, CAD s/o NSTEMI, HFpEF, , left BERTHA, h/o DVT, asthma, interstitial nephritis and recently diagnosed LLL lung mass s/p bronchoscopy at [facility] prior to admit here with wet cough, weakness and shakiness subjective fevers no chills, and ED BNP 1 268, elevated CRP sodium 131, procalcitonin 3.5 for, temp 100.1 degrees, chest x-ray showed worsening pulmonary aeration in the left lower lobe with increased hazy airspace opacities and new trace left-sided pleural fluid concerning for either subsegmental atelectasis edema or infiltrate patient admitted with a diagnosis of possible aspiration pneumonia and admitted to medical floor 1. ESRD: HD M WF 2. Aspiration pneumonia 3. HFpEF: compensated Continue HD MWF Improved hyponatremia - PT NEEDS TO BE ON FLUID RESTRICTION VAnco post HD - will arrange once discharge plans confirmed F/u vanc level Normal Fe stores - epo 20 K x 1 dose given this week Time Spent With Patient Time: Total time managing care of this patient today ____ minutes. Progress Note: Quality Stroke Does the patient have a stroke diagnosis?: No
[2023-08-04 18:23] LABS: Vancomycin Random 12.3 mcg/mL (15-20)
[2023-08-04 18:38] LABS: Anion Gap 16 (12-20); Blood Urea Nitrogen 19 mg/dL (9-16); Calcium 7.9 mg/dL (8.4-10.2); Carbon Dioxide 14 mmol/L (22-29); Chloride 100 mmol/L (96-108); Creatinine Clr Calc Pharmacy 19.9; Estimated Glomerular Filt Rate 27; Glucose Random 108 mg/dL (60-115); Sodium 126 mmol/L (135-145)
[2023-08-04 19:40] VITALS: BP 136/63; PULSE 83; RESP 17; TEMP 36.8; O2SAT 98
[2023-08-04] MEDS: vancomycin HCL 500 MG in 0.9 % Sodium Chloride 100 ML 110 MG IV (20:11)
[2023-08-04] MEDS: traZODone HCL 50 MG TABLET PO (20:18)
[2023-08-04] MEDS: Gabapentin 300 MG CAPSULE PO (20:18)
[2023-08-04] MEDS: carvediloL 6.25 MG TABLET PO (20:19)
[2023-08-04 23:20] VITALS: BP 148/63; PULSE 76; RESP 18; TEMP 36.7; O2SAT 96
[2023-08-05 03:55] VITALS: BP 147/63; PULSE 84; RESP 18; TEMP 36.3; O2SAT 97
[2023-08-05] MEDS: Omeprazole 20 MG CAPSULE.DR PO (05:54)
[2023-08-05 07:33] VITALS: BP 147/67; PULSE 96; RESP 16; TEMP 36.5; O2SAT 94
[2023-08-05 07:54] LABS: Anion Gap 11 (12-20); Blood Urea Nitrogen 26 mg/dL (9-16); Calcium 7.9 mg/dL (8.4-10.2); Chloride 101 mmol/L (96-108); Creatinine Clr Calc Pharmacy 15.5; Estimated Glomerular Filt Rate 20; Glucose Random 81 mg/dL (60-115); Potassium 3.9 mmol/L (3.3-5.1); Sodium 128 mmol/L (135-145)
[2023-08-05 08:04] LABS: Carbon Dioxide 20 mmol/L (22-29)
[2023-08-05] MEDS: Docusate Sodium 100 MG CAPSULE PO (10:23)
[2023-08-05] MEDS: Apixaban 2.5 MG TABLET PO (10:23)
[2023-08-05] MEDS: Ferrous Sulfate 324 MG TABLET.DR PO (10:23)
[2023-08-05] MEDS: Sevelamer Carbonate Tablet 800 MG TABLET PO (10:23)
[2023-08-05] MEDS: methylPREDNISolone Sod Succ 125 MG/2 ML VIAL 40 MG IVPUSH (10:23)
[2023-08-05] MEDS: PARoxetine HCL 30 MG TABLET PO (10:23)
[2023-08-05] MEDS: carvediloL 6.25 MG TABLET PO (10:23)
[2023-08-05] MEDS: Atorvastatin Calcium 80 MG TABLET PO (10:23)
[2023-08-05] MEDS: hydrALAZINE HCl 10 MG TABLET PO (10:23)
[2023-08-05] MEDS: Cyclobenzaprine HCl 5 MG TABLET PO (10:23)
[2023-08-05] MEDS: Ascorbic Acid 250 MG TABLET PO (10:23)
[2023-08-05] MEDS: Aspirin 81 MG TAB.CHEW PO (10:23)
[2023-08-05] MEDS: guaiFENesin LA 600 MG TAB.ER.12H PO (10:23)
[2023-08-05] MEDS: 0.9 % Sodium Chloride Flush 3 ML SYRINGE IVFLUSH ×2 (10:24)
--- NOTE | 2023-08-05 10:35 | P.DS_ITS ---
DS: Providers Provider Date of Service: 08/05/23 Date of admission: 07/25/23 23:52 Date of discharge: 08/05/23 Primary care physician: Ayah Villalta MD Consults: 07/26/23 07:03 Consult to Nephrology Routine Consulting Provider: [facility] Reason for consultation: ESRD on HD MWF. Needs HD today Has provider been notified: No 07/30/23 14:20 Consult to Infectious Diseases Routine Consulting Provider: Ann Godoy Reason for consultation: enterococcus bacteremia Has provider been notified: No DS: Diagnosis Discharge Diagnosis (1) ESRD (end stage renal disease) on dialysis: Status: Acute (2) Pneumonia: Status: Acute (3) Enterococcus faecalis infection: Status: Acute (4) Bacteremia due to Enterococcus: Status: Acute (5) Acute hyponatremia: Status: Acute DS: Summary Hospital Course Hospital Course: From the history and physical by the admitting hospitalist, Enzo Abdalla, 07/25/23: 73 year old white female with history of ESRD on HD MWF, PAF on Eliquis, CAD s/o NSTEMI, HFpEF, , left BERTHA, h/o DVT, asthma, interstitial nephritis and recently diagnosed LLL lung mass s/p bronchoscopy at [facility] yesterday who presents to the emergency room from home concerned that she may have pneumonia. She reports that she was informed that the bronchoscopy was uneventful and that there were no concerning findings. However, today morning, she developed a wet cough and felt weak and shakey. She also reports subjective fevers with no chills. Initial work up done in the emergency room was notable for elevated CRP, BNP of 1268 pg/ml, mild hyponatremia at 131 and stable anemia with a hemoglobin of 8.7 and thrombocytopenia with a platelet count of 133. Her procalcitonin was elevated at 3.54. while her vital signs were notable for a fever of 100.1 F, tachycardia at 102 bpm and tachypnea at 24 breaths per minute. However, during her ER stay, her heart rate has been arounf 120 to 130 bpm. A chest x-ray done showed worsening pulmonary aeration in the left lower lobe with increased hazy airspace opacities and new trace left-sided pleural fluid concerning for either subsegmental atelectasis, pulmonary edema or infiltrates. A diagnosis of possible aspiration pneumonia was made and she was started on IV Ceftriaxone and Azithromycin and admission requested. Ms Ramos is a 73yo F with ESRD on HD MWF, pAF on apixaban, CAD s/p NSTEMI, HFpEF, , left BERTHA, hx DVT, asthma, interstitial nephritis, and recently diagnosed lung adenoCA followed by Dr Sultana at [facility] Oncology. She presented wiith cough, weakness, and subjective fevers. She was admitted for pneumonia and ultimately found to have bacteremia with Enterococcus faecalis and E. faecium. Hospital course by problem: Enterococcal bacteremia/pnemonia - Pneumonia initially treated with a 5-day course of ceftriaxone + azithromycin. When venous blood cultures returned positive for Enterococcus faecalis and Enterococcus faecium, she was started on vancomycin, to which both strains were susceptible. Surveillance/follow-up cultures were sent on 08/03/23 and were negative at 48 hours. Infectious Disease was consulted. Four weeks of vancomycin 500 mg MWF at HD were recommended; end date will be 09/01/22. ESRD on HD - Dialyzed as per usual schedule except upon discharge, will go to HD on Monday08/06/23 given the holiday on Monday08/07/23. To resume usual schedule Monday08/09/23. She will receive vancomycin at HD as above. 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 Improved from 119 to 128 with fluid restriction of 1200 mL/day. To recheck BMP on 08/09/23 at HD. lung adenoCA - Will need follow-up with her oncologist, Dr Sultana at [facility] On[facility], for treatment plan. She was discharged home with VNA services. Time Attestation Discharge coordination time: Greater than 30 minutes Quality: Safe Use of Opioids Does Pt have an Active Cancer Diagnosis on the Problem List?: No Quality: Stroke Does the patient have a stroke diagnosis?: No Physical Exam Vital Signs: Vital Signs: Last Vital Signs Temp 97.7 F 08/05/23 07:33 Pulse 96 08/05/23 07:33 Resp 16 08/05/23 07:33 BP 147/67 H 08/05/23 07:33 Pulse Ox 94 08/05/23 07:33 O2 Del Method Room Air 08/05/23 07:33 O2 Flow Rate 2 08/02/23 03:52 BMI result Body Mass Index 20.7 Gen: in no acute distress HEENT: sclera anicteric, moist mucus membranes Neck: supple, LIJ tunneled HD catheter Lungs: clear to auscultation bilaterally Heart: regular rate and rhythm, no murmurs Abd: soft, non-tender, non-distended Ext: no edema Skin: warm/well-perfused Neuro: alert and oriented x3, no focal findings Psych: appropriate affect DS: Data Data Completed and Pending Completed studies during hospitalization [Text1]: Laboratory Results WBC 8.3 X10*3/uL (4.8-10.8) 08/03/23 10:41 RBC 2.86 X10*6/uL (4.20-5.50) L 08/03/23 10:41 Hgb 8.7 g/dl (12.0-16.0) L 08/03/23 10:41 Hct 27.5 % (37.0-47.0) L 08/03/23 10:41 MCV 96.2 fL (80.0-98.0) 08/03/23 10:41 MCH 30.4 pg (27.0-33.0) 08/03/23 10:41 MCHC 31.6 g/dl (31.0-35.0) 08/03/23 10:41 RDW 14.0 % (11.0-16.0) 08/03/23 10:41 Plt Count 174 X10*3/uL (160-400) 08/03/23 10:41 MPV 10.8 fL (9.4-12.3) 08/03/23 10:41 Immature Gran % (Auto) 1.7 % (0.0-0.4) H 08/03/23 10:41 Neut % (Auto) 84.2 % (45-73) H 08/03/23 10:41 Lymph % (Auto) 8.8 % (20-40) L 08/03/23 10:41 Josephine % (Auto) 5.2 % (2-11) 08/03/23 10:41 Eos % (Auto) 0.0 % (0-4) 08/03/23 10:41 Baso % (Auto) 0.1 % (0-2) 08/03/23 10:41 Lymph # (Auto) 0.7 X10*3/uL (1.2-4.9) L 08/03/23 10:41 Josephine # (Auto) 0.4 X10*3/uL (0.1-1.2) 08/03/23 10:41 Eos # (Auto) 0.0 X10*3/uL (0.0-0.4) 08/03/23 10:41 Baso # (Auto) 0.0 X10*3/uL (0.0-0.2) 08/03/23 10:41 Abs Immat Gran (auto) 0.14 X10*3/uL (0.00-0.03) H 08/03/23 10:41 Absolute Neuts (auto) 7.0 x10*3/uL (2.0-8.3) 08/03/23 10:41 Absolute Nucleated RBC 0.000 X10*3/uL (0.0-0.012) 08/03/23 10:41 Nucleated RBC % (auto) 0.0 /100WBC (0.0-0.2) 08/03/23 10:41 Hold Purple Top SEE NOTE 08/05/23 07:15 VBG pH 7.51 (7.32-7.43) H 07/25/23 22:45 VBG pCO2 24 mmHg 07/25/23 22:45 VBG pO2 121 mmHg 07/25/23 22:45 VBG HCO3 19 mmol/L (22-26) L 07/25/23 22:45 VBG O2 Saturation 99.0 % 07/25/23 22:45 VBG Base Excess -2.1 mmol/L 07/25/23 22:45 Sodium 128 mmol/L (135-145) L 08/05/23 07:15 Potassium 3.9 mmol/L (3.3-5.1) 08/05/23 07:15 Chloride 101 mmol/L (96-108) 08/05/23 07:15 Carbon Dioxide 20 mmol/L (22-29) L 08/05/23 07:15 Anion Gap 11 (12-20) L 08/05/23 07:15 BUN 26 mg/dL (9-16) H 08/05/23 07:15 Creatinine 2.36 mg/dL (0.5-1.4) H 08/05/23 07:15 Estim Creat Clear Calc 15.5 08/05/23 07:15 Estimated GFR 20 08/05/23 07:15 Random Glucose 81 mg/dL (60-115) 08/05/23 07:15 Fasting Glucose 205 mg/dL (60-99) H 08/03/23 10:41 Lactic Acid 1.1 mmol/L (0.5-2.0) 07/25/23 22:44 Calcium 7.9 mg/dL (8.4-10.2) L 08/05/23 07:15 Iron 41 mcg/dL (30-160) 07/31/23 09:31 TIBC 114 mcg/dL (228-428) L 07/31/23 09:31 % Saturation 36 % (15-50) 07/31/23 09:31 Unsat Iron Binding 73 ug/dL 07/31/23 09:31 Ferritin 2234 ng/mL (10-250) H 07/31/23 09:31 Total Bilirubin 0.3 mg/dL (0.0-1.0) 08/03/23 10:41 AST 10 U/L (5-31) 08/03/23 10:41 ALT 6 U/L (0-31) 08/03/23 10:41 Alkaline Phosphatase 104 U/L (39-117) 08/03/23 10:41 C-Reactive Protein 14.68 mg/dL (< or = 0.50) H 07/25/23 18:55 B-Natriuretic Peptide 1268 pg/mL (<100) H 07/25/23 22:43 Total Protein 6.5 g/dL (6.5-8.0) 08/03/23 10:41 Albumin 2.8 g/dL (3.5-5.0) L 08/03/23 10:41 Procalcitonin 1.81 ng/mL 07/28/23 06:47 Urine Color Yellow 07/27/23 11:40 Urine Appearance Turbid 07/27/23 11:40 Urine pH 7.0 (5.0-9.0) 07/27/23 11:40 Ur Specific [place] 1.015 (1.005-1.025) 07/27/23 11:40 Urine Protein 300 (3+) mg/dL (Neg-Trace) H 07/27/23 11:40 Urine Glucose (UA) Negative mg/dL (Negative) 07/27/23 11:40 Urine Ketones Negative mg/dL (Negative) 07/27/23 11:40 Urine Blood Large (3+) (Negative) H 07/27/23 11:40 Urine Nitrite Negative (Negative) 07/27/23 11:40 Ur Leukocyte Esterase Large (3+) (Negative) H 07/27/23 11:40 Urine RBC >20 /HPF (0-2) H 07/27/23 11:40 Urine WBC >50 /HPF (0-5) H 07/27/23 11:40 Ur Squamous Epith Cells >20 /HPF (0-2) 07/27/23 11:40 Urine Bacteria 2+ (None Seen) 07/27/23 11:40 Hyaline Casts 0-2 /LPF (0-2) 07/27/23 11:40 Random Vancomycin 12.3 mcg/mL (15-20) L 08/04/23 17:50 Influenza Type A (PCR) NEGATIVE (Negative) 07/25/23 18:55 Influenza Type B (PCR) NEGATIVE (Negative) 07/25/23 18:55 RSV RNA Qual (PCR) NEGATIVE (Negative) 07/25/23 18:55 SARS-CoV-2 RNA (RT-PCR) NEGATIVE (Negative) 07/25/23 18:55 Impressions Chest X-Ray 07/28/23 08:46 IMPRESSION: 1. Bilateral lower lobe patchy opacity likely combination of infiltrate/atelectasis and effusion. 2. There is mild pulmonary vascular congestion. 3. Left-sided inserted dialysis catheter tip in right atrium. Abdomen/Pelvis CT 08/01/23 17:19 IMPRESSION: 1. Bilateral pleural effusions left greater than right. Left lower lobe atelectasis consolidation. 2. Cholelithiasis. Mild intra and extrahepatic biliary duct dilatation. 3. Attenuation seen in the distal common bile duct. Choledocholithiasis not excluded. 4. Atrophic kidneys. Bilateral extensive renal calcifications probably representing a mixture of vascular calcifications and small stones. No hydronephrosis. 5. Constipation and diverticulosis. 6. Severe atherosclerotic disease. Fleischner guidelines were followed. Discharge Plan Discharge Anticipated Discharge Date/Time: 08/05/23 10:30 Patient Disposition: Home Health Service Discharge Diagnosis: Enterococcal bacteremia/pnemonia hyponatremia ESRD on HD lung cancer Referrals: Leah Sultana MD [Physician] - 1 Week Ann Godoy MD [Physician] - 2 Weeks Ayah Villalta MD [Primary Care Provider] - 1 Week Discharge Medications: New vancomycin 500 mg recon soln 500 mg PO .MWF Qty: 11 0RF Continued Eliquis 2.5 mg tablet 2.5 mg PO BID Qty: 60 5RF gabapentin 300 mg capsule 300 mg PO BEDTIME aspirin 81 mg Tablet,Chewable 81 mg PO DAILY fluoxetine 20 mg capsule 20 mg PO DAILY sevelamer carbonate 800 mg tablet 800 mg PO TIDWM trazodone 50 mg Tablet 50 mg PO BEDTIME atorvastatin 80 mg Tablet 80 mg PO DAILY carvedilol 6.25 mg Tablet 6.25 mg PO BID Rx Instructions: must administer with a meal/food pantoprazole 40 mg Tablet,Delayed Release (Dr/Ec) 40 mg PO DAILY oxycodone 5 mg tablet 5 mg PO Q4H PRN (Reason: Pain) Rx Instructions: Partial Fill upon patient request. hydralazine 10 mg Tablet 10 mg PO TID lisinopril 20 mg Tablet 20 mg PO DAILY paroxetine HCl 30 mg Tablet 30 mg PO DAILY ondansetron 4 mg Tablet,Disintegrating 4 mg PO Q6H PRN (Reason: Nausea) cyclobenzaprine 5 mg Tablet 5 mg PO TID ascorbic acid (vitamin C) 250 mg Tablet 250 mg PO DAILY nitroglycerin 0.4 mg Tablet, Sublingual 0.4 mg SUBLINGUAL Q5M PRN (Reason: Chest Pain) Rx Instructions: do not exceed 3 doses per episode ferrous sulfate 325 mg (65 mg iron) Tablet,Delayed Release (Dr/Ec) 325 mg PO DAILY acetaminophen 325 mg tablet 650 mg PO Q4H PRN (Reason: Pain) furosemide 40 mg Tablet 80 mg PO DAILY Qty: 60 0RF Protocol: Hold for SBP< HOLD for SBP < : 90 Discharge Orders: Discharge Order (Routine); Ordered 08/05/23 Ordered By: Fady Santana Diet: Advance to usual diet Activity on Discharge: As tolerated Stand Alone Forms: Patient Portal Discharge page Other Ambulatory Orders: Basic Metabolic Panel (Routine) Timeframe: [id number] Facility: [facility] - Location: Laboratory Ordered By: Fady Santana Care Plan Goals: cure of infection Health Concerns: Enterococcal bacteremia/pnemonia hyponatremia ESRD on HD Plan of Treatment: vancomycin 500 mg after dialysis M/W/, continue until end date of 09/01/23 HD on Monday08/06/23, because Monday08/07/23 is a holiday Then resume MWF on Monday08/09/23. follow up with Dr Godoy from [facility] Infectious Disease in 2 weeks restrict fluid intake to 1200 mL/day recheck BMP on Monday08/09/23 Please follow up with your primary care doctor within 1 week. Return to the hospital if you experience recurrent or worsening symptoms. see Dr Sultana in 1 week regarding cancer treatment options home with VNA services Assessment: See Discharge Summary.
[2023-08-05 11:19] VITALS: BP 125/68; PULSE 82; RESP 16; TEMP 36.9; O2SAT 95
--- NOTE | 2023-08-05 12:38 | PC.NURSE ---
Addendum entered by Karen Roach RN 08/05/23 12:49: Dr. Max alexandre at 1236. Original Note: At this time this RN went in to tell patient discharge plan- we are awaiting blood cultures expected to result around 2pm. Then d/c. Patient noted to be missing from room and unable to be located. Eloped unit.
--- NOTE | 2023-08-05 13:07 | PC.NURSE ---
Attempted to call patient's personal cell x1, no answer.
--- NOTE | 2023-08-05 14:15 | PC.NURSE ---
Patient's daughter Christy contacted and pt's phone number is [phone]. Apparently, patient was under the assumption she could leave hospital at any time for discharge. Son picked her up and brought her home via private vehicle. Reviewed discharge instructions over the phone verbally with both patient and her daughter Christy at this time. They are aware to follow up with pcp/recommended specialists, receive abx treatment s/p dialysis M/W/F, return for dialysis here at [facility] as dialysis center is closed Monday and Monday due to holiday and return to hospital for any new or worsening symptoms. Both parties agree to plan of care and given opportunity to ask questions over the phone.
== END 2023-08-05 12:36 | disposition home health service (06) | DRG 177 ==
LOC: HO.ED 07-26 00:18 → HO.S3 07-26 05:12 → HO.EDOVER 07-26 06:14 → HO.IMC 07-26 07:29
PROVIDERS: Hospitalist; Internal Medicine; Internal Medicine Nephrology; Admitting Provider Internal Medicine; Emergency Provider Emergency Medicine; PCP Family Medicine; Visit Provider Family Medicine
DX: J69.0 Pneumonitis due to inhalation of food and vomit (principal); N18.6 End stage renal disease; I13.2 Hypertensive heart and chronic kidney disease with heart failure and with stage 5 chronic kidney disease, or end stage renal disease; I50.22 Chronic systolic (congestive) heart failure; C34.32 Malignant neoplasm of lower lobe, left bronchus or lung; I48.92 Unspecified atrial flutter; J98.11 Atelectasis; R78.81 Bacteremia; E22.2 Syndrome of inappropriate secretion of antidiuretic hormone; D63.1 Anemia in chronic kidney disease; L89.152 Pressure ulcer of sacral region, stage 2; K21.9 Gastro-esophageal reflux disease without esophagitis; B95.2 Enterococcus as the cause of diseases classified elsewhere; I25.10 Atherosclerotic heart disease of native coronary artery without angina pectoris; I48.0 Paroxysmal atrial fibrillation; I25.2 Old myocardial infarction; Z20.822 Contact with and (suspected) exposure to COVID-19; Z95.1 Presence of aortocoronary bypass graft; Z99.2 Dependence on renal dialysis; Z79.01 Long term (current) use of anticoagulants; Z79.82 Long term (current) use of aspirin; Z79.899 Other long term (current) drug therapy
CPT/HCPCS: 0241U; 36415; 71045; 71046; 74176; 80048; 80053; 80202; 81001; 82728; 82803; 83540; 83605; 83880; 84145; 85025; 85027; 86140; 87040; 87077; 87086; 87186; 87205; 90999; 93005; 93308; 94640; 97110; 97116; 97162; 99285; J0456; J0696; J0885; J1836; J2930; J3370; J3371; Q5106; Q9957

== ENCOUNTER → 2023-07-25 21:02 | Outpatient (BNV) | payer MEDICARE, MEDICAID, SELFPAY | PROVIDERS: Admitting Provider Internal Medicine; Emergency Provider Emergency Medicine; PCP Family Medicine; Visit Provider Internal Medicine Cardiovascular Disease | DX: I48.92 Unspecified atrial flutter (principal); R94.31 Abnormal electrocardiogram [ECG] [EKG] | CPT/HCPCS: 93010 ==

== ENCOUNTER 2023-07-25 23:52 | Outpatient (BNV) | payer MEDICARE, MEDICAID, SELFPAY | END 2023-08-02 07:00 | PROVIDERS: Admitting Provider Internal Medicine; Emergency Provider Emergency Medicine; PCP Family Medicine; Visit Provider Internal Medicine Cardiovascular Disease | DX: I21.4 Non-ST elevation (NSTEMI) myocardial infarction (principal) | CPT/HCPCS: 93308 ==

== ENCOUNTER → 2023-07-25 23:52 | Outpatient (BNV) | payer MEDICARE, MEDICAID, SELFPAY | PROVIDERS: Admitting Provider Internal Medicine; Emergency Provider Emergency Medicine; PCP Family Medicine; Visit Provider Internal Medicine | DX: N18.6 End stage renal disease (principal); Z99.2 Dependence on renal dialysis; J18.9 Pneumonia, unspecified organism; A49.8 Other bacterial infections of unspecified site; R78.81 Bacteremia; B95.2 Enterococcus as the cause of diseases classified elsewhere; E87.1 Hypo-osmolality and hyponatremia | CPT/HCPCS: 99223; 99232; 99233; 99239 ==

== ENCOUNTER → 2023-07-25 23:52 | Outpatient (BNV) | payer MEDICARE, MEDICAID, SELFPAY | PROVIDERS: Admitting Provider Internal Medicine; Emergency Provider Emergency Medicine; PCP Family Medicine; Visit Provider Internal Medicine | DX: N18.9 Chronic kidney disease, unspecified (principal); D63.1 Anemia in chronic kidney disease; N18.6 End stage renal disease; Z99.2 Dependence on renal dialysis; R91.8 Other nonspecific abnormal finding of lung field; A49.8 Other bacterial infections of unspecified site | CPT/HCPCS: 99222 ==

== ENCOUNTER 2023-08-09 13:23 | Emergency (ER) | payer MEDICARE, MEDICAID, SELFPAY ==
[2023-08-09 13:25] VITALS: BMI 23.0
--- NOTE | 2023-08-09 14:00 | PC.NURSE ---
this RN called [employer] at this time. spoke w/ employee's representative Elida - referral #[id number]. dr. salcedo calling ME at this time.
--- NOTE | 2023-08-09 14:05 | PC.NURSE ---
this RN and Dr. Urena spoke w/ family in grieving room at this time.
--- NOTE | 2023-08-09 14:10 | PC.NURSE ---
family members bedside w/ pt at this time.
--- NOTE | 2023-08-09 14:14 | ED_ITS ---
HPI - CPR General Chief Complaint: Cardiac Arrest/CPR Stated Complaint: CARDIAC ARREST Time Seen by Provider: 08/09/23 13:26 History of Present Illness HPI narrative: 73 year old white female with history of ESRD on HD MWF, PAF on Eliquis, CAD s/o NSTEMI, HFpEF, , left BERTHA, h/o DVT, asthma, interstitial nephritis and recently diagnosed LLL lung mass s/p bronchoscopy at [facility] who presents emergency department for evaluation of cardiac arrest. The patient was recently hospitalized for bacterial pneumonia and discharged on 08/05/2023. According the daughter, the patient was feeling weak. The patient was in another room and cried out and the patient's son found her unresponsive. According to the paramedics, 1st responders arrived on the scene within 5-10 minutes. Automatic cardiac defibrillator advised no shock and CPR was started. When the paramedics arrived approximately 10 minutes later, there 1st rhythm on the monitor was asystole. Patient was intubated and treated with ACLS protocol for asystole. Patient received 6 rounds of epinephrine. Patient also received sodium bicarb 1 amp IV and calcium chloride IV since she is a dialysis patient improvement of her asystole or return of spontaneous circulation. When the patient arrived in the emergency department, she was intubated with an endotracheal tube in the was symmetric breath sounds. There was a Cordell device providing good chest compressions. Patient's pupils were fixed and dilated. She was given epinephrine 1 mg IV and CPR was continued 3 minutes. CPR was stopped and there were no palpable pulses. Patient had asystole on the monitor. At this point the patient had been receiving ACLS treatment for approximately 50 minutes with no return of spontaneous circulation therefore the patient was pronounced at 13:29 hours. I did discuss the patient's presentation with the infertility medical assistant and the case was declined. Patient's case #[id number]. Related Data Home Medications Medication Instructions Recorded Confirmed gabapentin 300 mg capsule 300 mg PO BEDTIME 11/09/22 07/26/23 aspirin 81 mg chewable tablet 81 mg PO DAILY 03/10/23 07/26/23 fluoxetine 20 mg capsule 20 mg PO DAILY 03/15/23 07/26/23 sevelamer carbonate 800 mg tablet 800 mg PO TIDWM 04/20/23 07/26/23 atorvastatin 80 mg tablet 80 mg PO DAILY 05/03/23 07/26/23 carvedilol 6.25 mg tablet 6.25 mg PO BID 05/03/23 07/26/23 oxycodone 5 mg tablet 5 mg PO Q4H PRN Pain 05/03/23 07/26/23 pantoprazole 40 mg tablet,delayed 40 mg PO DAILY 05/03/23 07/26/23 release trazodone 50 mg tablet 50 mg PO BEDTIME 05/03/23 07/26/23 acetaminophen 325 mg tablet 650 mg PO Q4H PRN Pain 06/08/23 07/26/23 ascorbic acid (vitamin C) 250 mg 250 mg PO DAILY 06/08/23 07/26/23 tablet cyclobenzaprine 5 mg tablet 5 mg PO TID 06/08/23 07/26/23 ferrous sulfate 325 mg (65 mg 325 mg PO DAILY 06/08/23 07/26/23 iron) tablet,delayed release hydralazine 10 mg tablet 10 mg PO TID 06/08/23 07/26/23 lisinopril 20 mg tablet 20 mg PO DAILY 06/08/23 07/26/23 nitroglycerin 0.4 mg sublingual 0.4 mg sublingual Q5M PRN Chest 06/08/23 07/26/23 tablet Pain ondansetron 4 mg disintegrating 4 mg PO Q6H PRN Nausea 06/08/23 07/26/23 tablet paroxetine HCl 30 mg tablet 30 mg PO DAILY 06/08/23 07/26/23 Previous Rx's Medication Instructions Recorded apixaban 2.5 mg tablet (Eliquis) 2.5 mg PO BID #60 tabs 04/05/23 furosemide 40 mg tablet 80 mg PO DAILY #60 tabs 06/13/23 vancomycin 500 mg intravenous 500 mg PO .MWF #11 ea 08/05/23 solution Allergies Allergy/AdvReac Type Severity Reaction Status Date / Time atenolol [ATENOLOL] Allergy Severe DIFF Verified 08/09/23 13:25 BREATHING, heart races. doxycycline Allergy Severe Anaphylaxis Verified 08/09/23 13:25 duloxetine Allergy Severe Anaphylaxis Verified 08/09/23 13:25 amphetamine [Adderall] AdvReac Severe shortness Verified 08/09/23 13:25 of breath dextroamphetamine [Adderall] AdvReac Severe shortness Verified 08/09/23 13:25 of breath Review of Systems Review of Systems: Yes unobtainable due to endotracheal tube PMFSH Past Medical History Medical History Enterococcus faecalis infection Non-small cell cancer of left lung CHF (congestive heart failure) CKD (chronic kidney disease) Hemodialysis patient Left femoral shaft fracture History of DVT (deep vein thrombosis) History of non-ST elevation myocardial infarction (NSTEMI) (~12/2020) Osteopenia ESRD (end stage renal disease) Interstitial lung disease Atherosclerotic cardiovascular disease Aortic stenosis CAD (coronary artery disease) PAF (paroxysmal atrial fibrillation) (~12/2020) Anemia Asthmatic bronchitis GERD (gastroesophageal reflux disease) CKD (chronic kidney disease), stage IV History of ectopic Depression Hypertension Surgical History History of lung biopsy History of coronary artery bypass graft x 3 S/P arteriovenous (AV) fistula creation History of colonoscopy History of total replacement of right shoulder joint History of rectopexy History of left knee replacement History of carpal tunnel release of both wrists Family History Family History Father No problems noted. Mother Myocardial infarction Social History Social History Household Members: None Housing: Other Housing Other:: rehab Do you presently have visiting nurse or other home services: No Alcohol intake: current Alcohol intake frequency: does not drink Patient Tobacco Use Status: Never used Tobacco Tobacco use type: Cigarette Second Hand Smoke Exposure: No Advance Directives: Yes Advance Directives on File: Yes Advance Directives Date on File: 03/10/23 service: No Current occupational status: retired Current occupation: young,right handed Physical Exam Vital Signs: Vital Signs: BMI result Body Mass Index 23.0 Exam: Head was normal cephalic and atraumatic, pupils were fixed and dilated. No obvious sign for head trauma Neck: No obvious trauma Lungs: Symmetric breath sounds with bag-valve endotracheal tube assisted breathing Heart: No heart sounds Abdomen: Distended with no bowel sounds. Extremities: No obvious trauma Neuro: Patient is not moving spontaneously Medical Decision Making Medical Decision Making MDM Narrative: 73 year old white female with history of ESRD on HD MWF, PAF on Eliquis, CAD s/o NSTEMI, HFpEF, , left BERTHA, h/o DVT, asthma, interstitial nephritis and recently diagnosed LLL lung mass s/p bronchoscopy at [facility] who presents emergency department for evaluation of cardiac arrest. Patient was found to have a non shockable rhythm by 1st responders and CPR was started approximately 5-10 minutes after the patient collapsed at home. Paramedics arrived on the scene and the patient was in asystole. Patient received ACLS protocol for approximately 45 minutes prior to coming to the emergency department with no return of spontaneous circulation. Patient was given 1 mg of and chest compressions were continued with the Cordell device for 3 minutes. At the pulse checked the patient had no pulses and she was in asystolic rhythm. Therefore the patient was pronounced at 13:29 hours. I did discuss the patient's events as reported to me by the paramedics to the patient's daughter Pam who was here in the emergency department. I also discuss this patient's presentation with the infertility medical assistant and they refused jurisdiction of the case. Case # [id number] Differential Diagnosis Differential Diagnoses: The differential diagnosis associated with the presentation includes Differential diagnosis includes was not limited to cardiac arrest, cardiac ischemia, arrhythmia, electrolyte abnormality, anemia Chronic Conditions Patient?s care impacted by: Other (End-stage renal disease, lung cancer) Critical Care Time Critical Care Time Critical Care Time: Yes Total Critical Care Time: 40 Attestation: Critical Care: The patient was critically ill with a high probability of imminent or life threatening deterioration. I spent greater than 30 minutes of discontinuous time evaluating the patient,delivering critical care at the bedside, discussing and evaluating pertinent data with consultants. Critical care time does not include time spent performing separately billable procedures or teaching. Total time spent performing critical care was 40 minutes. Discharge Plan Discharge Clinical Impression: Cardiac asystole Patient Disposition: Prescriptions: No Action Eliquis 2.5 mg tablet 2.5 mg PO BID Qty: 60 5RF gabapentin 300 mg capsule 300 mg PO BEDTIME aspirin 81 mg Tablet,Chewable 81 mg PO DAILY fluoxetine 20 mg capsule 20 mg PO DAILY vancomycin 500 mg recon soln 500 mg PO .MWF Qty: 11 0RF sevelamer carbonate 800 mg tablet 800 mg PO TIDWM trazodone 50 mg Tablet 50 mg PO BEDTIME atorvastatin 80 mg Tablet 80 mg PO DAILY carvedilol 6.25 mg Tablet 6.25 mg PO BID Rx Instructions: must administer with a meal/food pantoprazole 40 mg Tablet,Delayed Release (Dr/Ec) 40 mg PO DAILY oxycodone 5 mg tablet 5 mg PO Q4H PRN (Reason: Pain) Rx Instructions: Partial Fill upon patient request. hydralazine 10 mg Tablet 10 mg PO TID lisinopril 20 mg Tablet 20 mg PO DAILY paroxetine HCl 30 mg Tablet 30 mg PO DAILY ondansetron 4 mg Tablet,Disintegrating 4 mg PO Q6H PRN (Reason: Nausea) cyclobenzaprine 5 mg Tablet 5 mg PO TID ascorbic acid (vitamin C) 250 mg Tablet 250 mg PO DAILY nitroglycerin 0.4 mg Tablet, Sublingual 0.4 mg SUBLINGUAL Q5M PRN (Reason: Chest Pain) Rx Instructions: do not exceed 3 doses per episode ferrous sulfate 325 mg (65 mg iron) Tablet,Delayed Release (Dr/Ec) 325 mg PO DAILY acetaminophen 325 mg tablet 650 mg PO Q4H PRN (Reason: Pain) furosemide 40 mg Tablet 80 mg PO DAILY Qty: 60 0RF Protocol: Hold for SBP< HOLD for SBP < : 90
--- NOTE | 2023-08-09 14:30 | MHC.EDTECH ---
TIME OF 13:[address] RIVER HE ASKS FOR WATER POLLUTION CONTROL TECHNICIAN TO BE CALLED @14:12 WATER POLLUTION CONTROL TECHNICIAN CALLED, KRISTEL ANSWERS,TAKES PT INFO AND ASKS TO SPEAK WITH DR RIVER, DR RIVER TAKES OVER CALL RIGHT AWAY DR RIVER STATES CASE DECLINED BY WATER POLLUTION CONTROL TECHNICIAN, CASE NUMBER GIVEN: [id number] @14:35 DIANA LOVETT OF THE [facility] CALLS TO CHECK ON PT STATUS
--- NOTE | 2023-08-09 17:03 | PC.NURSE ---
pt to the ju at this time w/ tech's.
== END 2023-08-09 18:04 | disposition expired ==
PROVIDERS: Emergency Provider Emergency Medicine Emergency Medical Services; PCP Family Medicine
DX: I46.9 Cardiac arrest, cause unspecified (principal); I13.2 Hypertensive heart and chronic kidney disease with heart failure and with stage 5 chronic kidney disease, or end stage renal disease; N18.6 End stage renal disease; I50.30 Unspecified diastolic (congestive) heart failure; I48.0 Paroxysmal atrial fibrillation; I25.2 Old myocardial infarction; Z86.718 Personal history of other venous thrombosis and embolism; Z79.01 Long term (current) use of anticoagulants; Z99.2 Dependence on renal dialysis
CPT/HCPCS: 31500; 96374; 99282; 99285